=== PATIENT | male | born 1970 | race Caucasian/White ===

== ENCOUNTER 2020-03-26 19:40 | Emergency (ER) | payer OTHER, SELFPAY ==
[2020-03-26 19:49] VITALS: BP 134/93; PULSE 105; RESP 18; TEMP 36.6; O2SAT 98; BMI 36.7
--- NOTE | 2020-03-26 20:01 | XR_ITS ---
EXAMINATION: XR CHEST CLINICAL INFORMATION: Altered mental status COMPARISON: None TECHNIQUE: Frontal portable view of the chest was obtained. 8:12 PM FINDINGS: No significant abnormality is noted involving the heart, lungs, mediastinum, bony thorax or soft tissues. IMPRESSION: Unremarkable examination.
--- NOTE | 2020-03-26 20:02 | ECG_ITS ---
Test Reason : ALTERED MENTAL Blood Pressure : / mmHG Vent. Rate : 108 BPM Atrial Rate : 108 BPM P-R Int : 140 ms QRS Dur : 088 ms QT Int : 354 ms P-R-T Axes : 032 -20 037 degrees QTc Int : 474 ms Sinus tachycardia Otherwise normal ECG When compared with ECG of 18-MAR-2020 14:55, Heart rate has increased Referred By: Meli Scott Electronically Signed By:CELENA CAMERON
[2020-03-26 20:25] LABS: MANUAL DIFF FLAG NO
[2020-03-26 20:27] LABS: Basophils Percent Auto 0.3 % (0-2); Eosinophils Absolute Auto 0.1 X10*3/uL (0.0-0.4); Eosinophils Percent Auto 0.5 % (0-4); Hematocrit 46.3 % (42-52); Hemoglobin 15.5 g/dl (14.0-18.0); Imm Gran Abs Auto 0.08 X10*3/uL (0.00-0.03); Imm Gran Pct Auto 0.6 % (0.0-0.4); Lymphocytes Absolute Auto 1.8 X10*3/uL (1.2-4.9); Lymphocytes Percent Auto 14.5 % (20-40); Mean Corpuscular HGB Conc 33.5 g/dl (31.0-36.0); Mean Corpuscular Hemoglobin 30.9 pg (27.0-33.0); Mean Corpuscular Volume 92.2 fL (80-98); Mean Platelet Volume 10.4 fL (9.4-12.4); Monocytes Absolute Auto 1.1 X10*3/uL (0.1-1.2); Monocytes Percent Auto 8.8 % (2-11); Neutrophils Absolute Auto 9.3 X10*3/uL (2.0-8.3); Neutrophils Percent Auto 75.3 % (45-73); Platelet Count 224 X10*3/uL (160-400); Red Blood Count 5.02 X10*6/uL (4.60-5.80); Red Cell Distribution Width 13.4 % (11.0-16.0); White Blood Count 12.4 X10*3/uL (4.8-10.8)
--- NOTE | 2020-03-26 20:30 | ED_ITS ---
HPI - General Adult General Chief complaint: Altered Mental Status <Meli Scott NP - Last Filed: 03/27/20:20> Stated complaint: hypoglicimia <Meli Scott NP - Last Filed: 03/27/20:20> Time Seen by Provider: 03/26/20 19:58 <Meli Scott NP - Last Filed: 03/27/20:20> Source: patient and EMS <Meli Scott NP - Last Filed: 03/27/20:20> Mode of arrival: EMS <Meli Scott NP - Last Filed: 03/27/20:20> Limitations: no limitations <Meli Scott NP - Last Filed: 03/27/20:20> History of Present Illness HPI narrative: Patient presents with altered mental status, [facility] at [facility] unconscious, it was noted that his blood sugar was in the 40s. He was given an amp of D50, blood sugar increased to the 200s however dropped back down to the 70s. At this time he has tremors, able to answer questions appropriately, reports that he did not eat very much today and took his insulin as scheduled. He takes 130 units in the morning and 80 units in the evening, which he took both doses with very little food. He does not describe any illness, has not had any chest pain or pressure, palpitations, shortness of breath, abdominal pain, abdominal distention, dysuria, hematuria, nausea, vomiting, diarrhea. Does not have any open wounds that he knows of. <Meli Scott NP - Last Filed: 03/27/20:20> Onset (ago): hour(s) ( Just prior to arrival) <Meli Scott NP - Last Filed: 03/27/20:20> Severity: moderate and severe <Meli Scott NP - Last Filed: 03/27/20:20> Associated symptoms: diaphoresis <Meli Scott NP - Last Filed: 03/27/20:20> Treatments prior to arrival: other ( D50 amp) <Meli Scott NP - Last Filed: 03/27/20:20> Related Data Allergies/adverse reactions: Allergies Allergy/AdvReac Type Severity Reaction Status Date / Time atorvastatin [ATORVASTATIN] Allergy Unknown skin Unverified 03/10/20 18:41 eruption <Meli Scott HYDRAULIC MECHANIC - Last Filed: 03/27/20 01:20> Review of Systems Review of Systems: Yes all other systems are reviewed and are negative <Meli Scott HYDRAULIC MECHANIC - Last Filed: 03/27/20 01:20> Constitutional: Constitutional: Reports poor appetite <Meli Scott HYDRAULIC MECHANIC - Last Filed: 03/27/20 01:20> Eyes: Eyes: Reports no additional eye complaints <Meli Scott HYDRAULIC MECHANIC - Last Filed: 03/27/20 01:20> ENT: Reports system reviewed and no additional complaints, except as documented <Meli Scott HYDRAULIC MECHANIC - Last Filed: 03/27/20 01:20> Cardiovascular: Cardiovascular: Reports no additional cardiovascular complaints <Meli Scott HYDRAULIC MECHANIC - Last Filed: 03/27/20 01:20> Respiratory: Respiratory: Reports no additional respiratory complaints <Meli Scott HYDRAULIC MECHANIC - Last Filed: 03/27/20 01:20> Gastrointestinal: Gastrointestinal: Reports no additional gastrointestinal complaints <Candshane Scott HYDRAULIC MECHANIC - Last Filed: 03/27/20 01:20> Genitourinary: Genitourinary: Reports no additional male genitourinary complaints <Meli Scott HYDRAULIC MECHANIC - Last Filed: 03/27/20 01:20> Musculoskeletal: Musculoskeletal: Reports no additional musculoskeletal c omplaints <Meli Scott HYDRAULIC MECHANIC - Last Filed: 03/27/20 01:20> Integumentary/Breasts: Skin/Breast: Reports system reviewed and no additional complaints, except as docu <Meli Scott HYDRAULIC MECHANIC - Last Filed: 03/27/20 01:20> Neurologic: Reports system reviewed and no additional complaints, except as documented and Reports Abnormal speech present <Meli Scott HYDRAULIC MECHANIC - Last Filed: 03/27/20 01:20> Psychiatric: Psychiatric: Reports no additional psychiatric complaints <Meli cSott HYDRAULIC MECHANIC - Last Filed: 03/27/20 01:20> Endocrine: Endocrine: Reports no additional endocrine complaints <Meli Scott HYDRAULIC MECHANIC - Last Filed: 03/27/20 01:20> Hematologic/Lymphatic: Hematologic/Lymphatic: Reports no additional hematologic/lymphatic complaints <Meli Scott NP - Last Filed: 03/27/20 01:20> PMFSH Past Medical History Attestation statement: The following information was validated with the patient. <Meli Scott NP - Last Filed: 03/27/20 01:20> Source: old records reviewed <Meli Scott NP - Last Filed: 03/27/20 01:20> Medical History: Medical History (Updated 03/26/20 @ 21:43 by Meli Scott NP) Cataracts, both eyes Diabetes Edema HTN (hypertension) Hyperlipidemia Hypothyroid <Meli Scott NP - Last Filed: 03/27/20 01:20> Social History Social History: Social History Alcohol intake: never Smoking Status: Never smoker Use of substances other than those prescribed or required for medical reasons: No Advance Directives: No Advance Directives Information Provided: Yes <Meli Scott NP - Last Filed: 03/27/20 01:20> Physical Exam Vital Signs and I&O and Narrative: Vital Signs and I&O: Vital Signs Temp 98.3 F 03/26/20 22:18 Pulse 101 H 03/26/20 22:18 Resp 20 03/26/20 22:18 BP 136/68 03/26/20 22:18 Pulse Ox 99 03/26/20 22:18 Intake & Output 03/26/20 03/26/20 03/27/20 06:59 18:59 06:59 Weight 112.945 kg Body Mass Index 36.7 <Meli Scott NP - Last Filed: 03/27/20 01:20> Vital Signs and I&O: Vital Signs Temp 98.3 F 03/26/20 22:18 Pulse 101 H 03/26/20 22:18 Resp 20 03/26/20 22:18 BP 136/68 03/26/20 22:18 Pulse Ox 99 03/26/20 22:18 Intake & Output 03/26/20 03/26/20 03/27/20 06:59 18:59 06:59 Weight 112.945 kg Body Mass Index 36.7 <Humza Scanlon DO - Last Filed: 03/27/20 01:23> Const: General: cooperative, alert, awake and tired appearing <Meli Scott NP - Last Filed: 03/27/20 01:20> Nutritional Appearance: obese morbidly obese <Meli Scott NP - Last Wilner ed: 03/27/20 01:20> Orientation/consciousness: patient oriented x3 <Meli Scott HYDRAULIC MECHANIC - Last Filed: 03/27/20 01:20> Limitations: no limitations <Meli Scott HYDRAULIC MECHANIC - Last Filed: 03/27/20 01:20> HENMT: Head: Yes normal to inspection <Meli Scott HYDRAULIC MECHANIC - Last Filed: 03/27/20 01:20> Ears: hearing grossly normal bilaterally <Meli Scott NP - Last Filed: 03/27/20 01:20> Face and sinus: Yes normal facial exam <Meli Scott HYDRAULIC MECHANIC - Last Filed: 03/27/20 01:20> Mouth: Normal oral and palatal mucosa present <Meli Scott HYDRAULIC MECHANIC - Last Filed: 03/27/20 01:20> Throat: Yes posterior oropharynx normal, Yes tonsils normal and Yes uvula midline <Meli Scott HYDRAULIC MECHANIC - Last Filed: 03/27/20 01:20> Eyes: General: appearance normal, both eyes and all related structures <Meli Scott HYDRAULIC MECHANIC - Last Filed: 03/27/20 01:20> Alignment and Position: alignment normal <Meli Scott HYDRAULIC MECHANIC - Last Filed: 03/27/20 01:20> Conjunctivae: conjunctivae normal <Meli Scott HYDRAULIC MECHANIC - Last Filed: 03/27/20 01:20> Sclerae: sclerae normal <Meli Scott HYDRAULIC MECHANIC - Last Filed: 03/27/20 01:20> Pupils: Equal, round and reactive pupils present <Meli Scott NP - Last Filed: 03/27/20 01:20> EOM: EOMs intact bilaterally <Meli Scott HYDRAULIC MECHANIC - Last Filed: 03/27/20 01: 20> Neck: Neck: Yes normal visual inspection, Yes full ROM, Yes no lymphadenopathy, Yes no meningeal signs and Yes supple <Meli Scott NP - Last Filed: 03/27/20:20> Chest: Chest palpation & inspection: normal inspection of the chest <Meli Scott NP - Last Filed: 03/27/20:20> Resp: Effort & Inspection: normal respiratory effort and able to speak in complete sentences <Meli Scott NP - Last Filed: 03/27/20:20> Auscultation: clear to auscultation bilaterally <Meli Scott NP - Last Filed: 03/27/20:20> Cardio: Rate: tachycardic <Meli Scott NP - Last Filed: 03/27/20: 20> Rhythm: regular rhythm <Meli Scott NP - Last Filed: 03/27/20:20> GI: Inspection: Yes normal to inspection and Yes obesity <Meli Scott NP - Last Filed: 03/27/20:20> : General: Yes no CVA tenderness <Meli Scott NP - Last Filed: 03/27/20:20> Back/Spine/Pelvis: Back: no CVA tenderness <Meli Scott NP - Last Filed: 03/27/20:20> Skin: Other: Skin to feet and lower extremities dry and flaking. No wounds noted to feet, between the toes, and on the coccyx. All other extremities normal. <Meli Scott NP - Last Filed: 03/27/20:20> General skin exam: no rashes or lesions noted <Meli Scott NP - Last Filed: 03/27/20:20> Neuro: General: patient oriented x3, moves all extremities and no meningeal signs <Meli Scott NP - Last Filed: 03/27/20 01:20> Cranial nerves: Yes CN's II-XII intact bilaterally, Yes Facial sensation intact/muscles of mastication intact, Yes Equal, round and reactive pupils present, Yes Normal accommodation reflex present, Yes Bilaterally intact EOM present, Yes Nystagmus not present, Yes Normal facial strength present, Yes Ability to bilaterally rotate head present and Yes Ability to bilaterally elevate shoulders present <Meli Scott NP - Last Filed: 03/27/2020> Cognition (Neuro): normal cognition <Meli ScottODALYS - Last Filed: 03/27/20:20> Speech: Abnormal speech present <Meli ScottODALYS - Last Filed: 03/27/20:20> Motor exam (neuro): 5/5 motor strength present throughout <Meli ScottODALYS - Last Filed: 03/27/20:20> Extrem: General: Yes full ROM <Meli ScottODALYS - Last Filed: 03/27/20:20> Psych: Appearance: grossly normal <Meli ScottODALYS - Last Filed: 03/27:20> Mental Status: mental status grossly normal <Meli ScottODALYS - Last Filed: 03/27/2020> Speech and movement: Normal speech and movement present <Meli ScottODALYS - Last Filed: 03/27/20:20> Course Course Hospital Course: 49-year-old male currently homeless with medical history of insulin- dependent diabetes, hypertension, morbid obesity, sleep apnea with CPAP, presents with hypoglycemia. He did take insulin as prescribed today but did not eat very much. He takes 130 units in the morning, 80 units at night. This hypoglycemic episode could be insulin related. We will order CBC, Chem 7, EKG, chest x-ray, urinalysis to rule out acute findings , ACS, and infection. We will monitor POC glucose every 15 minutes for the 1st hour. Patient is neurovascularly intact, cranial nerves 2-12 intact, answering questions politely and appropriately. No wounds or lesions noted to body, no injury to head, neck, extremities. Patient does recall the entire episode of his event, he did not fall, hit his head or injure any parts of his body while experiencing the extreme tiredness of hypoglycemia. <Meli BocanegraODALYS beaulieu - Last Filed: 03/27/20:20> Reevaluation(s) Reevaluation #1: chest x-ray is negative, lab values are otherwise unremarkable. EKG is sinus tach at 108 beats per minute again and otherwise normal. Patient is alert oriented x4, answering questions politely and appropriately, neurovascularly intact, cranial nerves 2-12 intact. Patient was given multiple sandwiches and beverages. Maintaining oral airway without difficulty. EKG shows sinus tachycardia, troponins are negative. Highly unlikely that this is ACS. Chest x-ray is negative for acute findings, unlikely to be pneumonia. Patient has no focal neural deficits, cranial nerves 2-12 intact highly unlikely to be CVA. This episode of altered mental status And hypoglycemia most likely due to prescribed insulin use with poor p.o. intake. ETOH negative. Plan of care to discharge back to facility, Patient verbalized understanding of and agrees to plan of care discharge home. healthcare interpreter utilized for all correspondence, Google translate utilized for discharge instructions <Meli Scott NP - Last Filed: 03/27/20 01:20> Medical Decision Making MDM Narrative Medical decision making narrative: altered mental status <Meli Scott NP - Last Filed: 03/27/20 01:20> Differential Diagnosis Differential Diagnosis: hypoglycemia, infection, <Meli Scott NP - Last Filed: 03/27/20 01:20> Medical Records Medical records reviewed: Yes I reviewed the patient's medical records. <Meli Scott NP - Last Filed: 03/27/20 01:20> Lab Data Lab results reviewed: Yes I reviewed the patient's lab results. <Meli Scott NP - Last Filed: 03/27/20 01:20> Result diagrams: : 03/26/20 20:08 03/26/20 20:08 <Meli Scott NP - Last Filed: 03/27/20 01:20> Labs: Lab Results 03/26/20 03/26/20 03/26/20 Range/Units 20:08 20:08 20:15 WBC 12.4 H (4.8-10.8) X10*3/uL RBC 5.02 (4.60-5.80) X10*6/uL Hgb 15.5 (14.0-18.0) g/dl Hct 46.3 (42-52) % MCV 92.2 (80-98) fL MCH 30.9 (27.0-33.0) pg MCHC 33.5 (31.0-36.0) g/dl RDW 13.4 (11.0-16.0) % Plt Count 224 (160-400) X10*3/uL MPV 10.4 (9.4-12.4) fL Immature Gran % (Auto) 0.6 H (0.0-0.4) % Neut % (Auto) 75.3 H (45-73) % Lymph % (Auto) 14.5 L (20-40) % Yates % (Auto) 8.8 (2-11) % Eos % (Auto) 0.5 (0-4) % Baso % (Auto) 0.3 (0-2) % Neut # (Auto) 9.3 H (2.0-8.3) X10*3/uL Lymph # (Auto) 1.8 (1.2-4.9) X10*3/uL Yates # (Auto) 1.1 (0.1-1.2) X10*3/uL Eos # (Auto) 0.1 (0.0-0.4) X10*3/uL Baso # (Auto) 0.0 (0.0-0.2) X10*3/uL Abs Immat Gran (auto) 0.08 H (0.00-0.03) X10*3/uL Absolute Nucleated RBC 0.000 (0.0-0.012) X10*3/uL Nucleated RBC % (auto) 0.0 (0.0-0.2) /100WBC PT 10.5 L (10.8-13.0) SEC INR 0.9 (0.9-1.1) Sodium 139 (135-145) mmol/L Potassium 4.6 (3.3-5.1) mmol/l Chloride 101 (96-108) mmol/L Carbon Dioxide 26 (22-29) mmol/L Anion Gap 17 (12-20) BUN 10 (9-16) mg/dL Creatinine 0.81 (0.5-1.4) mg/dL Estim Creat Clear Calc 135.1 Estimated GFR > 60 POC Glucose (60-115) mg/dL Random Glucose 93 (60-115) mg/dL Calcium 9.2 (8.4-10.2) mg/dL Magnesium 1.6 (1.6-2.6) mg/dL Total Bilirubin 0.7 (0.0-1.0) mg/dL Direct Bilirubin 0.3 (0.0-0.5) mg/dL AST 30 (5-37) U/L ALT 39 (0-40) U/L Alkaline Phosphatase 90 (39-117) U/L Total Creatine Kinase (38-174) U/L Troponin I High Sens (<3.5-35.0) ng/L Total Protein 6.9 (6.5-8.0) g/dL Albumin 4.0 (3.5-5.0) g/dL Lipase 60 (8-78) U/L Ethyl Alcohol mg/dL 03/26/20 03/26/20 03/26/20 Range/Units 20:15 20:15 20:15 WBC (4.8-10.8) X10*3/uL RBC (4.60-5.80) X10*6/uL Hgb (14.0-18.0) g/dl Hct (42-52) % MCV (80-98) fL MCH (27.0-33.0) pg MCHC (31.0-36.0) g/dl RDW (11.0-16.0) % Plt Count (160-400) X10*3/uL MPV (9.4-12.4) fL Immature Gran % (Auto) (0.0-0.4) % Neut % (Auto) (45-73) % Lymph % (Auto) (20-40) % Yates % (Auto) (2-11) % Eos % (Auto) (0-4) % Baso % (Auto) (0-2) % Neut # (Auto) (2.0-8.3) X10*3/uL Lymph # (Auto) (1.2-4.9) X10*3/uL Yates # (Auto) (0.1-1.2) X10*3/uL Eos # (Auto) (0.0-0.4) X10*3/uL Baso # (Auto) (0.0-0.2) X10*3/uL Abs Immat Gran (auto) (0.00-0.03) X10*3/uL Absolute Nucleated RBC (0.0-0.012) X10*3/uL Nucleated RBC % (auto) (0.0-0.2) /100WBC PT (10.8-13.0) SEC INR (0.9-1.1) Sodium (135-145) mmol/L Potassium (3.3-5.1) mmol/l Chloride (96-108) mmol/L Carbon Dioxide (22-29) mmol/L Anion Gap (12-20) BUN (9-16) mg/dL Creatinine (0.5-1.4) mg/dL Estim Creat Clear Calc Estimated GFR POC Glucose (60-115) mg/dL Random Glucose (60-115) mg/dL Calcium (8.4-10.2) mg/dL Magnesium (1.6-2.6) mg/dL Total Bilirubin (0.0-1.0) mg/dL Direct Bilirubin (0.0-0.5) mg/dL AST (5-37) U/L ALT (0-40) U/L Alkaline Phosphatase (39-117) U/L Total Creatine Kinase 131 (38-174) U/L Troponin I High Sens 4.4 (<3.5-35.0) ng/L Total Protein (6.5-8.0) g/dL Albumin (3.5-5.0) g/dL Lipase (8-78) U/L Ethyl Alcohol < 10 mg/dL 03/26/20 03/26/20 Range/Units 20:50 21:29 WBC (4.8-10.8) X10*3/uL RBC (4.60-5.80) X10*6/uL Hgb (14.0-18.0) g/dl Hct (42-52) % MCV (80-98) fL MCH (27.0-33.0) pg MCHC (31.0-36.0) g/dl RDW (11.0-16.0) % Plt Count (160-400) X10*3/uL MPV (9.4-12.4) fL Immature Gran % (Auto) (0.0-0.4) % Neut % (Auto) (45-73) % Lymph % (Auto) (20-40) % Yates % (Auto) (2-11) % Eos % (Auto) (0-4) % Baso % (Auto) (0-2) % Neut # (Auto) (2.0-8.3) X10*3/uL Lymph # (Auto) (1.2-4.9) X10*3/uL Yates # (Auto) (0.1-1.2) X10*3/uL Eos # (Auto) (0.0-0.4) X10*3/uL Baso # (Auto) (0.0-0.2) X10*3/uL Abs Immat Gran (auto) (0.00-0.03) X10*3/uL Absolute Nucleated RBC (0.0-0.012) X10*3/uL Nucleated RBC % (auto) (0.0-0.2) /100WBC PT (10.8-13.0) SEC INR (0.9-1.1) Sodium (135-145) mmol/L Potassium (3.3-5.1) mmol/l Chloride (96-108) mmol/L Carbon Dioxide (22-29) mmol/L Anion Gap (12-20) BUN (9-16) mg/dL Creatinine (0.5-1.4) mg/dL Estim Creat Clear Calc Estimated GFR POC Glucose 107 115 (60-115) mg/dL Random Glucose (60-115) mg/dL Calcium (8.4-10.2) mg/dL Magnesium (1.6-2.6) mg/dL Total Bilirubin (0.0-1.0) mg/dL Direct Bilirubin (0.0-0.5) mg/dL AST (5-37) U/L ALT (0-40) U/L Alkaline Phosphatase (39-117) U/L Total Creatine Kinase (38-174) U/L Troponin I High Sens (<3.5-35.0) ng/L Total Protein (6.5-8.0) g/dL Albumin (3.5-5.0) g/dL Lipase (8-78) U/L Ethyl Alcohol mg/dL <Meli Scott NP - Last Filed: 03/27/20 01:20> Lab Results 03/26/20 03/26/20 03/26/20 Range/Units 20:08 20:08 20:15 WBC 12.4 H (4.8-10.8) X10*3/uL RBC 5.02 (4.60-5.80) X10*6/uL Hgb 15.5 (14.0-18.0) g/dl Hct 46.3 (42-52) % MCV 92.2 (80-98) fL MCH 30.9 (27.0-33.0) pg MCHC 33.5 (31.0-36.0) g/dl RDW 13.4 (11.0-16.0) % Plt Count 224 (160-400) X10*3/uL MPV 10.4 (9.4-12.4) fL Immature Gran % (Auto) 0.6 H (0.0-0.4) % Neut % (Auto) 75.3 H (45-73) % Lymph % (Auto) 14.5 L (20-40) % Yates % (Auto) 8.8 (2-11) % Eos % (Auto) 0.5 (0-4) % Baso % (Auto) 0.3 (0-2) % Neut # (Auto) 9.3 H (2.0-8.3) X10*3/uL Lymph # (Auto) 1.8 (1.2-4.9) X10*3/uL Yates # (Auto) 1.1 (0.1-1.2) X10*3/uL Eos # (Auto) 0.1 (0.0-0.4) X10*3/uL Baso # (Auto) 0.0 (0.0-0.2) X10*3/uL Abs Immat Gran (auto) 0.08 H (0.00-0.03) X10*3/uL Absolute Nucleated RBC 0.000 (0.0-0.012) X10*3/uL Nucleated RBC % (auto) 0.0 (0.0-0.2) /100WBC PT 10.5 L (10.8-13.0) SEC INR 0.9 (0.9-1.1) Sodium 139 (135-145) mmol/L Potassium 4.6 (3.3-5.1) mmol/l Chloride 101 (96-108) mmol/L Carbon Dioxide 26 (22-29) mmol/L Anion Gap 17 (12-20) BUN 10 (9-16) mg/dL Creatinine 0.81 (0.5-1.4) mg/dL Estim Creat Clear Calc 135.1 Estimated GFR > 60 POC Glucose (60-115) mg/dL Random Glucose 93 (60-115) mg/dL Calcium 9.2 (8.4-10.2) mg/dL Magnesium 1.6 (1.6-2.6) mg/dL Total Bilirubin 0.7 (0.0-1.0) mg/dL Direct Bilirubin 0.3 (0.0-0.5) mg/dL AST 30 (5-37) U/L ALT 39 (0-40) U/L Alkaline Phosphatase 90 (39-117) U/L Total Creatine Kinase (38-174) U/L Troponin I High Sens (<3.5-35.0) ng/L Total Protein 6.9 (6.5-8.0) g/dL Albumin 4.0 (3.5-5.0) g/dL Lipase 60 (8-78) U/L Ethyl Alcohol mg/dL 03/26/20 03/26/20 03/26/20 Range/Units 20:15 20:15 20:15 WBC (4.8-10.8) X10*3/uL RBC (4.60-5.80) X10*6/uL Hgb (14.0-18.0) g/dl Hct (42-52) % MCV (80-98) fL MCH (27.0-33.0) pg MCHC (31.0-36.0) g/dl RDW (11.0-16.0) % Plt Count (160-400) X10*3/uL MPV (9.4-12.4) fL Immature Gran % (Auto) (0.0-0.4) % Neut % (Auto) (45-73) % Lymph % (Auto) (20-40) % Yates % (Auto) (2-11) % Eos % (Auto) (0-4) % Baso % (Auto) (0-2) % Neut # (Auto) (2.0-8.3) X10*3/uL Lymph # (Auto) (1.2-4.9) X10*3/uL Yates # (Auto) (0.1-1.2) X10*3/uL Eos # (Auto) (0.0-0.4) X10*3/uL Baso # (Auto) (0.0-0.2) X10*3/uL Abs Immat Gran (auto) (0.00-0.03) X10*3/uL Absolute Nucleated RBC (0.0-0.012) X10*3/uL Nucleated RBC % (auto) (0.0-0.2) /100WBC PT (10.8-13.0) SEC INR (0.9-1.1) Sodium (135-145) mmol/L Potassium (3.3-5.1) mmol/l Chloride (96-108) mmol/L Carbon Dioxide (22-29) mmol/L Anion Gap (12-20) BUN (9-16) mg/dL Creatinine (0.5-1.4) mg/dL Estim Creat Clear Calc Estimated GFR POC Glucose (60-115) mg/dL Random Glucose (60-115) mg/dL Calcium (8.4-10.2) mg/dL Magnesium (1.6-2.6) mg/dL Total Bilirubin (0.0-1.0) mg/dL Direct Bilirubin (0.0-0.5) mg/dL AST (5-37) U/L ALT (0-40) U/L Alkaline Phosphatase (39-117) U/L Total Creatine Kinase 131 (38-174) U/L Troponin I High Sens 4.4 (<3.5-35.0) ng/L Total Protein (6.5-8.0) g/dL Albumin (3.5-5.0) g/dL Lipase (8-78) U/L Ethyl Alcohol < 10 mg/dL 03/26/20 03/26/20 Range/Units 20:50 21:29 WBC (4.8-10.8) X10*3/uL RBC (4.60-5.80) X10*6/uL Hgb (14.0-18.0) g/dl Hct (42-52) % MCV (80-98) fL MCH (27.0-33.0) pg MCHC (31.0-36.0) g/dl RDW (11.0-16.0) % Plt Count (160-400) X10*3/uL MPV (9.4-12.4) fL Immature Gran % (Auto) (0.0-0.4) % Neut % (Auto) (45-73) % Lymph % (Auto) (20-40) % Yates % (Auto) (2-11) % Eos % (Auto) (0-4) % Baso % (Auto) (0-2) % Neut # (Auto) (2.0-8.3) X10*3/uL Lymph # (Auto) (1.2-4.9) X10*3/uL Yates # (Auto) (0.1-1.2) X10*3/uL Eos # (Auto) (0.0-0.4) X10*3/uL Baso # (Auto) (0.0-0.2) X10*3/uL Abs Immat Gran (auto) (0.00-0.03) X10*3/uL Absolute Nucleated RBC (0.0-0.012) X10*3/uL Nucleated RBC % (auto) (0.0-0.2) /100WBC PT (10.8-13.0) SEC INR (0.9-1.1) Sodium (135-145) mmol/L Potassium (3.3-5.1) mmol/l Chloride (96-108) mmol/L Carbon Dioxide (22-29) mmol/L Anion Gap (12-20) BUN (9-16) mg/dL Creatinine (0.5-1.4) mg/dL Estim Creat Clear Calc Estimated GFR POC Glucose 107 115 (60-115) mg/dL Random Glucose (60-115) mg/dL Calcium (8.4-10.2) mg/dL Magnesium (1.6-2.6) mg/dL Total Bilirubin (0.0-1.0) mg/dL Direct Bilirubin (0.0-0.5) mg/dL AST (5-37) U/L ALT (0-40) U/L Alkaline Phosphatase (39-117) U/L Total Creatine Kinase (38-174) U/L Troponin I High Sens (<3.5-35.0) ng/L Total Protein (6.5-8.0) g/dL Albumin (3.5-5.0) g/dL Lipase (8-78) U/L Ethyl Alcohol mg/dL <Humza Scanlon DO - Last Filed: 03/27/20 01:23> Imaging Data Chest x-ray: Attestation: I personally reviewed and interpreted this imaging study as follows: <Meli Scott NP - Last Filed: 03/27/20:20> Radiologist's impression: No significant abnormality is noted involving the heart, lungs, mediastinum, bony thorax or soft tissues. IMPRESSION: Unremarkable examination. <Meli Scott NP - Last Filed: 03/27/20:20> ECG Data Attestation: I personally reviewed and interpreted this ECG as follows: <Meli Scott NP - Last Filed: 03/27/20:20> Prior ECG tracings: available for review <Meli Scott NP - Last Filed: 03/27/20:20> Interpretation: sinus tachycardia, ventricular rate at 108 beats per minute, p.r. interval 140, QT 354, QTC 474. no indication of ST elevation or depression no indication of ischemia. No significant changes when compared to EKG of March 18, 2020 <Meli Scott NP - Last Filed: 03/27/20 01:20> Scores Heart Score History: -1- moderately suspicious <Meli Scott NP - Last Filed: 03/27/20:20> ECG: -0- normal <Meli Scott NP - Last Filed: 03/27/20:20> Age: -1- >45 - <65 <Meli Scott NP - Last Filed: 03/27/20:20> Risk factory: -1- 1 or 2 risk factors <Meli Scott NP - Last Filed: 03/27/20:20> Troponin: -0- < or = normal limit <Meli Scott NP - Last Filed: 03/27/20:20> Score: 3 <Meli Scott NP - Last Filed: 03/27/20:20> Risk: 1.7% <Meli Scott NP - Last Filed: 03/27/20:20> Discharge Plan Discharge Clinical Impression: Hypoglycemia <Meli Scott NP - Last Filed: 03/27/20 01:20> Patient Disposition: Home, Self-Care <Meli Scott NP - Last Filed: 03/27/20 01:20> Instructions: Hypoglycemia in a Person with Diabetes (ED) <Meli Scott NP - Last Filed: 03/27/20 01:20> Additional Instructions: se le evalu? hipoglucemia relacionada con el uso de insulina. Aseg?rese de comer correctamente mientras alexis insulina. seguimiento con el m?dico de atenci?n primaria seg?n sea necesario. Regrese al departamento de emergencias para cualquier s?ntoma nuevo, preocupante o que empeore you were evaluated for hypoglycemia related to insulin use. Please make sure that you eat properly while taking insulin. follow-up with primary care physician as needed. Return to the emergency department for any new, concerning, or worsening symptoms. <Meli Scott NP - Last Filed: 03/27/20 01:20>
[2020-03-26 20:38] LABS: INTERNATIONAL NORM RATIO 0.9 (0.9-1.1); Prothrombin Time 10.5 SEC (10.8-13.0)
[2020-03-26 20:58] LABS: Ethanol < 10 mg/dL
[2020-03-26 21:00] LABS: Troponin-I High Sensitivity 4.4 ng/L (<3.5-35.0)
[2020-03-26 21:00] LABS: Alanine Aminotransferase 39 U/L (0-40); Alkaline Phosphatase 90 U/L (39-117); Anion Gap 17 (12-20); Aspartate Amino Transferase 30 U/L (5-37); Bilirubin Direct 0.3 mg/dL (0.0-0.5); Bilirubin Total 0.7 mg/dL (0.0-1.0); Blood Urea Nitrogen 10 mg/dL (9-16); Calcium 9.2 mg/dL (8.4-10.2); Carbon Dioxide 26 mmol/L (22-29); Chloride 101 mmol/L (96-108); Creatinine Clr Calc Pharmacy 135.1; Estimated Glomerular Filt Rate > 60; Glucose Random 93 mg/dL (60-115); Lipase 60 U/L (8-78); Magnesium 1.6 mg/dL (1.6-2.6); Potassium 4.6 mmol/l (3.3-5.1); Sodium 139 mmol/L (135-145); Total Protein 6.9 g/dL (6.5-8.0)
[2020-03-26 21:06] LABS: Glucose, Whole Blood 107 mg/dL (60-115)
[2020-03-26 21:31] VITALS: BP 129/72; PULSE 104; RESP 20; TEMP 37; O2SAT 99
[2020-03-26 21:32] LABS: Glucose, Whole Blood 115 mg/dL (60-115)
[2020-03-26 22:18] VITALS: BP 136/68; PULSE 101; RESP 20; TEMP 36.8; O2SAT 99
[2020-03-28 08:45] LABS: Glucose, Whole Blood 98 mg/dL (60-115)
== END 2020-03-27 02:06 | disposition home or self-care (01) ==
PROVIDERS: Nurse Practitioner Family; Emergency Provider Emergency Medicine; PCP Internal Medicine
DX: E11.649 Type 2 diabetes mellitus with hypoglycemia without coma (principal); I10 Essential (primary) hypertension; E78.5 Hyperlipidemia, unspecified
CPT/HCPCS: 36415; 71045; 80048; 80076; 80320; 82550; 82947; 83690; 83735; 84484; 85025; 85610; 93005; 93010; 99283; 99284

== ENCOUNTER 2020-04-13 05:45 | Emergency (ER) | payer OTHER, SELFPAY ==
[2020-04-13 05:49] VITALS: BP 121/69; PULSE 86; RESP 16; TEMP 36.7; O2SAT 100; BMI 35.2
[2020-04-13 05:56] LABS: Glucose, Whole Blood 97 mg/dL (60-115)
--- NOTE | 2020-04-13 06:05 | ECG_ITS ---
Test Reason : BASELINE Blood Pressure : / mmHG Vent. Rate : 087 BPM Atrial Rate : 087 BPM P-R Int : 162 ms QRS Dur : 092 ms QT Int : 392 ms P-R-T Axes : 046 -16 028 degrees QTc Int : 471 ms Normal sinus rhythm RSR' or QR pattern in V1 suggests right ventricular conduction delay Left axis deviation Abnormal ECG When compared with ECG of 26-MAR-2020 21:33, Heart rate has decreased Referred By: Eula Chen Electronically Signed By:COLLIN FIELD MD
[2020-04-13 07:36] VITALS: BP 152/78; PULSE 84; RESP 14; TEMP 36.6; O2SAT 100
--- NOTE | 2020-04-13 07:44 | PC.NURSE ---
PT GIVEN 80Z OF OJ AND 2 MAURO CRACKERS.
[2020-04-13 07:46] LABS: MANUAL DIFF FLAG NO
[2020-04-13 07:48] LABS: Basophils Percent Auto 0.3 % (0-2); Eosinophils Percent Auto 0.1 % (0-4); Hematocrit 45.4 % (42-52); Hemoglobin 15.8 g/dl (14.0-18.0); Imm Gran Abs Auto 0.03 X10*3/uL (0.00-0.03); Imm Gran Pct Auto 0.4 % (0.0-0.4); Lymphocytes Absolute Auto 1.5 X10*3/uL (1.2-4.9); Lymphocytes Percent Auto 20.1 % (20-40); Mean Corpuscular HGB Conc 34.8 g/dl (31.0-36.0); Mean Corpuscular Hemoglobin 30.6 pg (27.0-33.0); Mean Corpuscular Volume 87.8 fL (80-98); Mean Platelet Volume 10.4 fL (9.4-12.4); Monocytes Absolute Auto 0.4 X10*3/uL (0.1-1.2); Monocytes Percent Auto 5.9 % (2-11); Neutrophils Absolute Auto 5.5 X10*3/uL (2.0-8.3); Neutrophils Percent Auto 73.2 % (45-73); Platelet Count 218 X10*3/uL (160-400); Red Blood Count 5.17 X10*6/uL (4.60-5.80); Red Cell Distribution Width 13.1 % (11.0-16.0); White Blood Count 7.5 X10*3/uL (4.8-10.8)
--- NOTE | 2020-04-13 07:59 | ED.RECABL ---
HPI - Recheck/Abnormal Lab/Rx General Chief Complaint: Recheck/Abnormal Lab/Rx Stated Complaint: low sugar Time Seen by Provider: 04/13/20 06:05 Source: patient, EMS and interpreter deaf Mode of arrival: EMS History of Present Illness HPI narrative: this is a 49-year-old male brought in by EMS after she was noted to have fallen at the longterm and when EMS checked his glucose at was 38 the gait 2 rounds of oral glucose and recheck the value and found at 48. he is currently at 97 and on speak with the patient he states that he took his regularly scheduled insulin and states that has not been changed recently. He is a poor historian but otherwise denies any dizziness, chest pain, shortness of breath, fever, chills. Related Data Allergies Allergy/AdvReac Type Severity Reaction Status Date / Time atorvastatin [ATORVASTATIN] Allergy Unknown skin Unverified 03/10/20 18:41 eruption Review of Systems Review of Systems: Pertinent positives and negatives as stated in HPI 10 point review systems is otherwise negative. [facility] Past Medical History Source: nursing notes reviewed Medical History Cataracts, both eyes Diabetes Edema HTN (hypertension) Hyperlipidemia Hypothyroid Social History Social History Alcohol intake: never Smoking Status: Never smoker Smoked in Last 30 Days: No Use of substances other than those prescribed or required for medical reasons: No Advance Directives: No Advance Directives Information Provided: No Physical Exam Vital Signs: Vital Signs: Vital Signs Temp Pulse Resp BP Pulse Ox 04/13/20 07:36 97.8 F 84 14 152/78 H 100 04/13/20 05:49 98.0 F 86 16 121/69 100 Body Mass Index 35.2 VITAL SIGNS: Reviewed. GENERAL: Well developed, well nourished, in no acute distress. HEAD: Normocephalic/atraumatic, EYES: PERRLA, EOMI intact without pain, no nystagmus/pallor/icterus noted EARS: Ext canals without abnormality, TMs non-bulging and non-erythematous NOSE: Nares patent bilateral OROPHARYNX: no oral lesions noted, posterior pharynx clear and non-erythematous without noted tonsillar enlargement/erythema/exudates NECK: Supple, no adenopathy LUNGS: Normal breath sounds. No adventitious sounds or accessory muscle use. SpO2<100> CARDIOVASCULAR: Regular rate and rhythm without noted murmurs, no JVD or lower extremity edema. ABDOMEN: Soft, non-tender, non-distended with bowel sounds. No rigidity. No guarding. No palpable masses or hernias noted MUSCULOSKELETAL: No tenderness, deformities, or effusions noted on gross inspection. EXTREMITIES: No cyanosis, clubbing or edema. SKIN: Inspection of the skin reveals no rashes, ulcerations, jaundice, pallor, or petechiae. NEUROLOGIC: Alert and oriented x 4. Strength and sensation to light touch were grossly intact x 4. Course Course Course Narrative: This is a 49-year-old male with 2nd visit this month for hypoglycemic episodes. On review of all investigations there are no acute findings that would better explain patient's hypoglycemia. On repeated point of care glucose checks patient has maintained appropriate levels and will be discharged in stable condition. However, will contact patient's primary care provider in an attempt to set up an appointment for further discussion regarding insulin use. MDM - Recheck/Abnormal Lab/Rx Lab Data Result diagrams: 04/13/20 07:35 04/13/20 07:35 Labs: Lab Results 04/13/20 04/13/20 04/13/20 Range/Units 05:52 07:35 07:35 WBC 7.5 (4.8-10.8) X10*3/uL RBC 5.17 (4.60-5.80) X10*6/uL Hgb 15.8 (14.0-18.0) g/dl Hct 45.4 (42-52) % MCV 87.8 (80-98) fL MCH 30.6 (27.0-33.0) pg MCHC 34.8 (31.0-36.0) g/dl RDW 13.1 (11.0-16.0) % Plt Count 218 (160-400) X10*3/uL MPV 10.4 (9.4-12.4) fL Immature Gran % (Auto) 0.4 (0.0-0.4) % Neut % (Auto) 73.2 H (45-73) % Lymph % (Auto) 20.1 (20-40) % [place] % (Auto) 5.9 (2-11) % Eos % (Auto) 0.1 (0-4) % Baso % (Auto) 0.3 (0-2) % Lymph # (Auto) 1.5 (1.2-4.9) X10*3/uL [place] # (Auto) 0.4 (0.1-1.2) X10*3/uL Eos # (Auto) 0.0 (0.0-0.4) X10*3/uL Baso # (Auto) 0.0 (0.0-0.2) X10*3/uL Abs Immat Gran (auto) 0.03 (0.00-0.03) X10*3/uL Absolute Neuts (auto) 5.5 (2.0-8.3) X10*3/uL Absolute Nucleated RBC 0.000 (0.0-0.012) X10*3/uL Nucleated RBC % (auto) 0.0 (0.0-0.2) /100WBC Sodium 138 (135-145) mmol/L Potassium 4.0 (3.3-5.1) mmol/l Chloride 101 (96-108) mmol/L Carbon Dioxide 27 (22-29) mmol/L Anion Gap 14 (12-20) BUN 11 (9-16) mg/dL Creatinine 0.84 (0.5-1.4) mg/dL Estim Creat Clear Calc 139.5 Estimated GFR > 60 POC Glucose 97 (60-115) mg/dL Random Glucose 78 (60-115) mg/dL Calcium 9.1 (8.4-10.2) mg/dL Total Bilirubin 0.5 (0.0-1.0) mg/dL AST 26 (5-37) U/L ALT 18 (0-40) U/L Alkaline Phosphatase 81 (39-117) U/L Total Protein 6.9 (6.5-8.0) g/dL Albumin 4.0 (3.5-5.0) g/dL Ethyl Alcohol mg/dL 04/13/20 Range/Units 07:35 WBC (4.8-10.8) X10*3/uL RBC (4.60-5.80) X10*6/uL Hgb (14.0-18.0) g/dl Hct (42-52) % MCV (80-98) fL MCH (27.0-33.0) pg MCHC (31.0-36.0) g/dl RDW (11.0-16.0) % Plt Count (160-400) X10*3/uL MPV (9.4-12.4) fL Immature Gran % (Auto) (0.0-0.4) % Neut % (Auto) (45-73) % Lymph % (Auto) (20-40) % [place] % (Auto) (2-11) % Eos % (Auto) (0-4) % Baso % (Auto) (0-2) % Lymph # (Auto) (1.2-4.9) X10*3/uL [place] # (Auto) (0.1-1.2) X10*3/uL Eos # (Auto) (0.0-0.4) X10*3/uL Baso # (Auto) (0.0-0.2) X10*3/uL Abs Immat Gran (auto) (0.00-0.03) X10*3/uL Absolute Neuts (auto) (2.0-8.3) X10*3/uL Absolute Nucleated RBC (0.0-0.012) X10*3/uL Nucleated RBC % (auto) (0.0-0.2) /100WBC Sodium (135-145) mmol/L Potassium (3.3-5.1) mmol/l Chloride (96-108) mmol/L Carbon Dioxide (22-29) mmol/L Anion Gap (12-20) BUN (9-16) mg/dL Creatinine (0.5-1.4) mg/dL Estim Creat Clear Calc Estimated GFR POC Glucose (60-115) mg/dL Random Glucose (60-115) mg/dL Calcium (8.4-10.2) mg/dL Total Bilirubin (0.0-1.0) mg/dL AST (5-37) U/L ALT (0-40) U/L Alkaline Phosphatase (39-117) U/L Total Protein (6.5-8.0) g/dL Albumin (3.5-5.0) g/dL Ethyl Alcohol < 10 mg/dL Discharge Plan Discharge Clinical Impression: Hypoglycemia Patient Disposition: Home, Self-Care Instructions: Hypoglycemia in a Person with Diabetes (ED) Referrals: Adwoa Mcadams MD [Primary Care Provider] - 2 days ( recurrent hypoglycemia on current regimen)
[2020-04-13 08:06] LABS: Ethanol < 10 mg/dL
[2020-04-13 08:11] LABS: Alanine Aminotransferase 18 U/L (0-40); Alkaline Phosphatase 81 U/L (39-117); Anion Gap 14 (12-20); Aspartate Amino Transferase 26 U/L (5-37); Bilirubin Total 0.5 mg/dL (0.0-1.0); Blood Urea Nitrogen 11 mg/dL (9-16); Calcium 9.1 mg/dL (8.4-10.2); Carbon Dioxide 27 mmol/L (22-29); Chloride 101 mmol/L (96-108); Creatinine Clr Calc Pharmacy 139.5; Estimated Glomerular Filt Rate > 60; Glucose Random 78 mg/dL (60-115); Sodium 138 mmol/L (135-145); Total Protein 6.9 g/dL (6.5-8.0)
[2020-04-13 08:38] VITALS: BP 123/78; PULSE 78; RESP 18; O2SAT 100
[2020-04-13 08:56] LABS: Glucose, Whole Blood 121 mg/dL (60-115)
== END 2020-04-13 09:50 | disposition home or self-care (01) ==
PROVIDERS: Emergency Provider Student in an Organized Health Care Education/Training Program; PCP Internal Medicine
DX: E11.649 Type 2 diabetes mellitus with hypoglycemia without coma (principal); I11.0 Hypertensive heart disease with heart failure; I50.9 Heart failure, unspecified; E78.5 Hyperlipidemia, unspecified
CPT/HCPCS: 36415; 80053; 80320; 82947; 85025; 93005; 99283; 99284

== ENCOUNTER → 2020-04-22 09:13 | Outpatient (BNVA) | payer OTHER, SELFPAY | PROVIDERS: PCP Internal Medicine; Referring Provider Internal Medicine; Visit Provider Nurse Practitioner Gerontology | DX: E11.65 Type 2 diabetes mellitus with hyperglycemia (principal); E11.21 Type 2 diabetes mellitus with diabetic nephropathy; Z79.4 Long term (current) use of insulin; I10 Essential (primary) hypertension; E78.5 Hyperlipidemia, unspecified; E66.01 Morbid (severe) obesity due to excess calories; Z68.41 Body mass index [BMI] 40.0-44.9, adult; Z59.0 Homelessness | CPT/HCPCS: 82947; 99212 ==

== ENCOUNTER 2020-04-22 14:07 | Outpatient (REF) | payer OTHER, SELFPAY | END 2020-04-22 14:08 | disposition home or self-care (01) | LOC: HO.LAB 14:07 | PROVIDERS: PCP Internal Medicine; Visit Provider Internal Medicine | DX: Z20.828 Contact with and (suspected) exposure to other viral communicable diseases (principal) | CPT/HCPCS: U0003 ==

== ENCOUNTER 2020-04-28 11:23 | Outpatient (REF) | payer OTHER, SELFPAY | END 2020-04-28 11:24 | disposition home or self-care (01) | LOC: HO.LAB 11:23 | PROVIDERS: PCP Internal Medicine; Visit Provider Internal Medicine | DX: Z20.828 Contact with and (suspected) exposure to other viral communicable diseases (principal) | CPT/HCPCS: C9803; U0003 ==

== ENCOUNTER 2020-05-05 11:10 | Outpatient (REF) | payer OTHER, SELFPAY | END 2020-05-05 11:11 | disposition home or self-care (01) | LOC: HO.LAB 11:10 | PROVIDERS: PCP Internal Medicine; Visit Provider Internal Medicine | DX: Z20.828 Contact with and (suspected) exposure to other viral communicable diseases (principal) | CPT/HCPCS: C9803; U0003 ==

== ENCOUNTER → 2020-05-06 09:16 | Outpatient (BNVA) | payer OTHER, SELFPAY | PROVIDERS: PCP Internal Medicine; Referring Provider Internal Medicine; Visit Provider Nurse Practitioner Gerontology | DX: E11.65 Type 2 diabetes mellitus with hyperglycemia (principal); E11.29 Type 2 diabetes mellitus with other diabetic kidney complication; Z79.4 Long term (current) use of insulin; I10 Essential (primary) hypertension; E78.5 Hyperlipidemia, unspecified; E66.09 Other obesity due to excess calories; Z68.41 Body mass index [BMI] 40.0-44.9, adult | CPT/HCPCS: Q3014 ==

== ENCOUNTER 2020-05-10 12:22 | Emergency (ER) | payer OTHER, SELFPAY ==
[2020-05-10 12:26] VITALS: BP 137/97; BP 186/108; PULSE 93; PULSE 94; RESP 21; TEMP 36.4; O2SAT 99; BMI 31.7
--- NOTE | 2020-05-10 12:29 | ED_ITS ---
HPI - Altered Mental Status General Chief Complaint: General Medical Stated Complaint: LOW BS (48), 70 NOW AFTER D10 Time Seen by Provider: 05/10/20 12:28 Source: EMS Mode of arrival: EMS Limitations: language barrier History of Present Illness HPI narrative: [facility] jail un[facility], sugar was 48. Prior to event he was feeling dizzy. Patient states that novalog and tracevia are new. MD complaint: altered mental status and decreased responsiveness Onset (ago): minute(s) Timing confirmed by: caregiver Severity: moderate Context: diabetes Treatments prior to arrival: other (juice) Related Data Home Medications Medication Instructions Recorded Confirmed amlodipine 10 mg tablet 10 mg PO DAILY 04/22/20 05/06/20 escitalopram oxalate 10 mg tablet 10 mg PO DAILY 04/22/20 05/06/20 ezetimibe 10 mg tablet 10 mg PO DAILY 04/22/20 05/06/20 fenofibrate 54 mg tablet 54 mg PO DAILY 04/22/20 05/06/20 hydrochlorothiazide 25 mg tablet 25 mg PO DAILY 04/22/20 05/06/20 levothyroxine 137 mcg tablet 137 mcg PO DAILY 04/22/20 05/06/20 metformin 500 mg tablet 1,000 mg PO BID tab 04/22/20 05/06/20 simvastatin 40 mg tablet 40 mg PO DAILY 04/22/20 05/06/20 Previous Rx's Medication Instructions Recorded dulaglutide 1.5 mg/0.5 mL 1.5 mg SUBCUT QWEEK 28 Days #2 ml 04/22/20 subcutaneous pen injector insulin aspart U-100 100 unit/mL See Rx Instructions SUBCUT TID #15 04/22/20 (3 mL) subcutaneous pen ml insulin degludec 200 unit/mL (3 65 unit SUBCUT DAILY 30 Days #12 ml 04/22/20 mL) subcutaneous pen pen needle, diabetic 32 gauge x #360 ea 05/06/20 Allergies Allergy/AdvReac Type Severity Reaction Status Date / Time atorvastatin [ATORVASTATIN] Allergy Unknown skin Verified 05/09/20 08:15 eruption Review of Systems Constitutional: Constitutional: Reports no additional constitutional complaints Eyes: Eyes: Reports no additional eye complaints ENT: Denies dizziness Cardiovascular: Cardiovascular: Reports no additional cardiovascular complaints Respiratory: Respiratory: Reports as per HPI Gastrointestinal: Gastrointestinal: Reports no additional gastrointestinal complaints Musculoskeletal: Musculoskeletal: Reports no additional musculoskeletal complaints Integumentary/Breasts: Skin/Breast: Denies rash Neurologic: Reports system reviewed and no additional complaints, except as documented, Denies dizziness and Denies Sensory deficit (Neuro) Psychiatric: Psychiatric: Denies anxiety [facility] Past Medical History Medical History Cataracts, both eyes CHF (congestive heart failure) Cognitive developmental delay Diabetes Edema Essential hypertension HTN (hypertension) Hyperlipidemia Hyperlipidemia LDL goal <100 Hypothyroid Obesity due to excess calories Proteinuria Type 2 diabetes mellitus with hyperglycemia, with long-term current use of insulin Type 2 diabetes mellitus with other diabetic kidney complication Surgical History Hx of cataract surgery Hx of removal of cyst Family History Family History Father HTN (hypertension) Mother Diabetes mellitus Maternal Grandmother Diabetes mellitus Social History Social History (System 05/09/20 @ 08:15 by Donna Frank) Housing: Homeless Alcohol intake: never Smoking Status: Never smoker Smoked in Last 30 Days: No Use of substances other than those prescribed or required for medical reasons: No Advance Directives: No Advance Directives Information Provided: No Physical Exam Vital Signs: Vital Signs: Last Vital Signs Temp 98.7 F 05/10/20 15:24 Pulse 98 05/10/20 15:24 Resp 16 05/10/20 15:24 BP 163/75 H 05/10/20 15:24 Pulse Ox 100 05/10/20 15:24 Body Mass Index 31.7 Const: Nutritional Appearance: obese Orientation/consciousness: oriented to person Limitations: behavioral limitations and language barrier HENMT: Head: Yes normal to inspection Ears: external ears normal General nose exam: Normal external nose present Mouth: Normal oral and palatal mucosa present and oropharynx normal Throat: Yes posterior oropharynx normal Eyes: General: appearance normal, both eyes and all related structures Neck: Other: supple Neck: Yes normal visual inspection Chest: Chest palpation & inspection: normal inspection of the chest Resp: Auscultation: clear to auscultation bilaterally Cardio: Jugular venous distension: no JVD Rate: regular rate Rhythm: regular rhythm Heart sounds: S1 normal heart sound present and S2 normal heart sound present GI: Inspection: Yes normal to inspection Palpation (GI): Soft to palpation, nontender and No hepatosplenomegaly present Auscultation: normal bowel sounds : General: Yes no CVA tenderness Back/Spine/Pelvis: Back: no CVA tenderness Skin: General skin exam: no rashes or lesions noted Neuro: General: oriented to person Cranial nerves: Yes CN's II-XII intact bilaterally Motor exam (neuro): 5/5 motor strength present throughout Sensory Exam: No Sensory deficit (Neuro) Extrem: General: Yes normal to inspection Psych: Appearance: grossly normal Course Course Course Narrative: patient ate, sugar now 128, will dc home Reevaluation(s) Reevaluation #1: Discussed with Dr. Erik Lepe will hold insulin until seen by her. Had recently seen parquetry floor layer. MDM - Altered Mental Status MDM Narrative Medical decision making narrative: patient with evidence of hypoglycemia will discuss with PMD and discharge home Lab Data Result diagrams: 05/10/20 14:56 05/10/20 14:56 Labs: Lab Results 05/10/20 05/10/20 05/10/20 Range/Units 12:28 12:55 13:39 WBC (4.8-10.8) X10*3/uL RBC (4.60-5.80) X10*6/uL Hgb (14.0-18.0) g/dl Hct (42-52) % MCV (80-98) fL MCH (27.0-33.0) pg MCHC (31.0-36.0) g/dl RDW (11.0-16.0) % Plt Count (160-400) X10*3/uL MPV (9.4-12.4) fL Immature Gran % (Auto) (0.0-0.4) % Neut % (Auto) (45-73) % Lymph % (Auto) (20-40) % [place] % (Auto) (2-11) % Eos % (Auto) (0-4) % Baso % (Auto) (0-2) % Lymph # (Auto) (1.2-4.9) X10*3/uL [place] # (Auto) (0.1-1.2) X10*3/uL Eos # (Auto) (0.0-0.4) X10*3/uL Baso # (Auto) (0.0-0.2) X10*3/uL Abs Immat Gran (auto) (0.00-0.03) X10*3/uL Absolute Neuts (auto) (2.0-8.3) X10*3/uL Absolute Nucleated RBC (0.0-0.012) X10*3/uL Nucleated RBC % (auto) (0.0-0.2) /100WBC Sodium (135-145) mmol/L Potassium (3.3-5.1) mmol/l Chloride (96-108) mmol/L Carbon Dioxide (22-29) mmol/L Anion Gap (12-20) BUN (9-16) mg/dL Creatinine (0.5-1.4) mg/dL Estim Creat Clear Calc Estimated GFR POC Glucose 31 L* 41 L* 149 H (60-115) mg/dL Random Glucose (60-115) mg/dL Calcium (8.4-10.2) mg/dL Urine Color Urine Appearance Urine pH (5.0-8.0) Ur Specific [place] (1.005-1.025) Urine Protein (NEG-TRACE) MG/DL Urine Glucose (UA) (NEG) MG/DL Urine Ketones (NEG) MG/DL Urine Blood (NEG) Urine Nitrite (NEG) Ur Leukocyte Esterase (NEG) 05/10/20 05/10/20 05/10/20 Range/Units 14:56 14:56 15:26 WBC 9.8 (4.8-10.8) X10*3/uL RBC 5.25 (4.60-5.80) X10*6/uL Hgb 16.2 (14.0-18.0) g/dl Hct 47.2 (42-52) % MCV 89.9 (80-98) fL MCH 30.9 (27.0-33.0) pg MCHC 34.3 (31.0-36.0) g/dl RDW 12.2 (11.0-16.0) % Plt Count 264 (160-400) X10*3/uL MPV 10.1 (9.4-12.4) fL Immature Gran % (Auto) 0.3 (0.0-0.4) % Neut % (Auto) 76.1 H (45-73) % Lymph % (Auto) 17.3 L (20-40) % [place] % (Auto) 5.4 (2-11) % Eos % (Auto) 0.5 (0-4) % Baso % (Auto) 0.4 (0-2) % Lymph # (Auto) 1.7 (1.2-4.9) X10*3/uL [place] # (Auto) 0.5 (0.1-1.2) X10*3/uL Eos # (Auto) 0.1 (0.0-0.4) X10*3/uL Baso # (Auto) 0.0 (0.0-0.2) X10*3/uL Abs Immat Gran (auto) 0.03 (0.00-0.03) X10*3/uL Absolute Neuts (auto) 7.5 (2.0-8.3) X10*3/uL Absolute Nucleated RBC 0.000 (0.0-0.012) X10*3/uL Nucleated RBC % (auto) 0.0 (0.0-0.2) /100WBC Sodium 139 (135-145) mmol/L Potassium 5.0 D (3.3-5.1) mmol/l Chloride 104 (96-108) mmol/L Carbon Dioxide 26 (22-29) mmol/L Anion Gap 14 (12-20) BUN 18 H D (9-16) mg/dL Creatinine 0.84 (0.5-1.4) mg/dL Estim Creat Clear Calc 121.1 Estimated GFR > 60 POC Glucose (60-115) mg/dL Random Glucose 128 H D (60-115) mg/dL Calcium 8.9 (8.4-10.2) mg/dL Urine Color YELLOW Urine Appearance CLEAR Urine pH 6.5 (5.0-8.0) Ur Specific [place] 1.010 (1.005-1.025) Urine Protein TRACE (NEG-TRACE) MG/DL Urine Glucose (UA) 250 H (NEG) MG/DL Urine Ketones NEG (NEG) MG/DL Urine Blood NEG (NEG) Urine Nitrite NEG (NEG) Ur Leukocyte Esterase NEG (NEG) Discharge Plan Discharge Clinical Impression: Type 2 diabetes mellitus with hyperglycemia, with long-term current use of in sulin, Hypoglycemia associated with type 2 diabetes mellitus Patient Disposition: Home, Self-Care Instructions: Hypoglycemia in a Person with Diabetes (ED) Additional Instructions: Hold all insulin until seen by Dr. Valencia this week Prescriptions: No Action (DME) pen needle, diabetic [BD Ultra-Fine Adelina Pen Needle] 32 gauge x 5/32 needle See Rx Instructions .ROUTE .MEDSUPPLY Qty: 360 RF: 3 escitalopram oxalate 10 mg tablet 10 mg PO DAILY RF: 0 metformin 500 mg tablet 1,000 mg PO BID RF: 0 levothyroxine 137 mcg tablet 137 mcg PO DAILY RF: 0 simvastatin 40 mg tablet 40 mg PO DAILY RF: 0 ezetimibe [Zetia] 10 mg tablet 10 mg PO DAILY RF: 0 hydrochlorothiazide 25 mg tablet 25 mg PO DAILY RF: 0 amlodipine 10 mg tablet 10 mg PO DAILY RF: 0 fenofibrate 54 mg tablet 54 mg PO DAILY RF: 0 Trulicity 1.5 mg/0.5 mL pen injector 1.5 mg subcut QWEEK 28 Days Qty: 2 RF: 3 Tresiba FlexTouch U-200 200 unit/mL (3 mL) insulin pen 65 unit subcut DAILY 30 Days Qty: 12 RF: 3 insulin aspart U-100 [Novolog Flexpen U-100 Insulin] 100 unit/mL (3 mL) insulin pen See Rx Instructions subcut TID Qty: 15 RF: 3 Referrals: Adwoa Mcadams MD [Physician] - 2 days (must call for an expedited visit)
[2020-05-10 13:06] LABS: Glucose, Whole Blood 41 mg/dL (60-115)
[2020-05-10 13:45] LABS: Glucose, Whole Blood 149 mg/dL (60-115)
[2020-05-10 13:48] LABS: Glucose, Whole Blood 31 mg/dL (60-115)
[2020-05-10 15:06] LABS: MANUAL DIFF FLAG NO
[2020-05-10 15:08] LABS: Basophils Percent Auto 0.4 % (0-2); Eosinophils Absolute Auto 0.1 X10*3/uL (0.0-0.4); Eosinophils Percent Auto 0.5 % (0-4); Hematocrit 47.2 % (42-52); Hemoglobin 16.2 g/dl (14.0-18.0); Imm Gran Abs Auto 0.03 X10*3/uL (0.00-0.03); Imm Gran Pct Auto 0.3 % (0.0-0.4); Lymphocytes Absolute Auto 1.7 X10*3/uL (1.2-4.9); Lymphocytes Percent Auto 17.3 % (20-40); Mean Corpuscular HGB Conc 34.3 g/dl (31.0-36.0); Mean Corpuscular Hemoglobin 30.9 pg (27.0-33.0); Mean Corpuscular Volume 89.9 fL (80-98); Mean Platelet Volume 10.1 fL (9.4-12.4); Monocytes Absolute Auto 0.5 X10*3/uL (0.1-1.2); Monocytes Percent Auto 5.4 % (2-11); Neutrophils Absolute Auto 7.5 X10*3/uL (2.0-8.3); Neutrophils Percent Auto 76.1 % (45-73); Platelet Count 264 X10*3/uL (160-400); Red Blood Count 5.25 X10*6/uL (4.60-5.80); Red Cell Distribution Width 12.2 % (11.0-16.0); White Blood Count 9.8 X10*3/uL (4.8-10.8)
[2020-05-10 15:24] VITALS: BP 163/75; PULSE 98; RESP 16; TEMP 37.1; O2SAT 100
[2020-05-10 15:35] LABS: Appearance Urine CLEAR; Color Urine YELLOW; Glucose Urine UA 250 MG/DL (NEG); Leukocyte Esterase Urine NEG (NEG); Nitrite Urine NEG (NEG); PH 6.5 (5.0-8.0); Urine Blood NEG (NEG); Urine Ketones NEG (NEG); Urine Protein TRACE MG/DL (NEG-TRACE)
[2020-05-10 15:38] LABS: Anion Gap 14 (12-20); Blood Urea Nitrogen 18 mg/dL (9-16); Calcium 8.9 mg/dL (8.4-10.2); Carbon Dioxide 26 mmol/L (22-29); Chloride 104 mmol/L (96-108); Creatinine Clr Calc Pharmacy 121.1; Estimated Glomerular Filt Rate > 60; Glucose Random 128 mg/dL (60-115); Sodium 139 mmol/L (135-145)
== END 2020-05-10 17:26 | disposition home or self-care (01) ==
PROVIDERS: Emergency Provider Emergency Medicine
DX: E11.65 Type 2 diabetes mellitus with hyperglycemia (principal); E11.649 Type 2 diabetes mellitus with hypoglycemia without coma; I10 Essential (primary) hypertension; Z79.4 Long term (current) use of insulin; Z79.899 Other long term (current) drug therapy
CPT/HCPCS: 36415; 80048; 81003; 82947; 85025; 96374; 99284

== ENCOUNTER 2020-05-15 13:35 | Emergency (ER) | payer OTHER, SELFPAY ==
--- NOTE | 2020-05-15 13:45 | ED.WEAKNESS ---
HPI - Weakness General Chief complaint: Recheck/Abnormal Lab/Rx Stated complaint: LOW BS 40 W/AMS,BS 117 NOW w/NO AMS Time Seen by Provider: 05/15/20 13:37 Source: patient and EMS Mode of arrival: EMS Limitations: no limitations History of Present Illness HPI Narrative: This is a 49 years old brought by ambulance after an hypoglycemic episode. [facility], he was more confused his blood sugar was low he was given juice he ate a sandwich his sugar is better now MD Complaint: generalized weakness Onset (ago): day(s) Duration: constant Location: generalized Severity: moderate Related Data Home Medications Medication Instructions Recorded Confirmed amlodipine 10 mg tablet 10 mg PO DAILY 04/22/20 05/06/20 escitalopram oxalate 10 mg tablet 10 mg PO DAILY 04/22/20 05/06/20 ezetimibe 10 mg tablet 10 mg PO DAILY 04/22/20 05/06/20 fenofibrate 54 mg tablet 54 mg PO DAILY 04/22/20 05/06/20 hydrochlorothiazide 25 mg tablet 25 mg PO DAILY 04/22/20 05/06/20 levothyroxine 137 mcg tablet 137 mcg PO DAILY 04/22/20 05/06/20 metformin 500 mg tablet 1,000 mg PO BID tab 04/22/20 05/06/20 simvastatin 40 mg tablet 40 mg PO DAILY 04/22/20 05/06/20 Previous Rx's Medication Instructions Recorded dulaglutide 1.5 mg/0.5 mL 1.5 mg SUBCUT QWEEK 28 Days #2 ml 04/22/20 subcutaneous pen injector insulin aspart U-100 100 unit/mL See Rx Instructions SUBCUT TID #15 04/22/20 (3 mL) subcutaneous pen ml insulin degludec 200 unit/mL (3 65 unit SUBCUT DAILY 30 Days #12 ml 04/22/20 mL) subcutaneous pen pen needle, diabetic 32 gauge x #360 ea 05/06/20 Allergies Allergy/AdvReac Type Severity Reaction Status Date / Time atorvastatin [ATORVASTATIN] Allergy Unknown skin Verified 05/15/20 13:58 eruption Review of Systems Review of Systems: Yes all other systems are reviewed and are negative Respiratory: Respiratory: Reports no additional respiratory complaints Gastrointestinal: Gastrointestinal: Reports no additional gastrointestinal complaints Neurologic: Reports system reviewed and no additional complaints, except as documented [facility] Past Medical History Medical History Cataracts, both eyes CHF (congestive heart failure) Cognitive developmental delay Diabetes Edema Essential hypertension HTN (hypertension) Hyperlipidemia Hyperlipidemia LDL goal <100 Hypothyroid Obesity due to excess calories Proteinuria Type 2 diabetes mellitus with hyperglycemia, with long-term current use of insulin Type 2 diabetes mellitus with other diabetic kidney complication Surgical History Hx of cataract surgery Hx of removal of cyst Family History Family History Father HTN (hypertension) Mother Diabetes mellitus Maternal Grandmother Diabetes mellitus Social History Social History Housing: Homeless Alcohol intake: never Smoking Status: Never smoker Advance Directives: No Advance Directives Information Provided: Yes Physical Exam Vital Signs: Vital Signs: Last Vital Signs Temp 97.9 F 05/15/20 13:52 Pulse 94 05/15/20 13:52 Resp 16 05/15/20 13:52 BP 140/47 H 05/15/20 13:52 Pulse Ox 100 05/15/20 13:52 Body Mass Index 35.4 Const: Other: Patient is awake and alert in no acute distress, he has no complain at this time General: cooperative and healthy appearing Orientation/consciousness: oriented to person, oriented to place and oriented to time HENMT: Head: Yes normal to inspection Ears: hearing grossly normal bilaterally General nose exam: Normal external nose present Face and sinus: Yes normal facial exam Mouth: Normal oral and palatal mucosa present Eyes: General: appearance normal, both eyes and all related structures Neck: Neck: Yes normal visual inspection and Yes full ROM Chest: Chest palpation & inspection: normal inspection of the chest Resp: Effort & Inspection: normal respiratory effort and able to speak in complete sentences Cardio: Jugular venous distension: no JVD Palpation: normal PMI Rate: regular rate Rhythm: regular rhythm GI: Inspection: Yes normal to inspection Palpation (GI): Soft to palpation, nontender and no guarding Skin: General skin exam: no rashes or lesions noted Neuro: General: oriented to person, oriented to place and oriented to time Psych: Appearance: grossly normal Course Reevaluation(s) Reevaluation #1: Re-examined at this time the patient he is very comfortable asymptomatic anticipate discharge MDM - Weakness Lab Data Result diagrams: 05/15/20 15:23 05/15/20 15:23 Labs: Lab Results 05/15/20 05/15/20 Range/Units 15:23 16:09 WBC 9.6 (4.8-10.8) X10*3/uL RBC 4.86 (4.60-5.80) X10*6/uL Hgb 15.1 (14.0-18.0) g/dl Hct 44.0 (42-52) % MCV 90.5 (80-98) fL MCH 31.1 (27.0-33.0) pg MCHC 34.3 (31.0-36.0) g/dl RDW 12.1 (11.0-16.0) % Plt Count 216 (160-400) X10*3/uL MPV 10.2 (9.4-12.4) fL Immature Gran % (Auto) 0.3 (0.0-0.4) % Neut % (Auto) 81.3 H (45-73) % Lymph % (Auto) 12.3 L (20-40) % [place] % (Auto) 5.6 (2-11) % Eos % (Auto) 0.2 (0-4) % Baso % (Auto) 0.3 (0-2) % Lymph # (Auto) 1.2 (1.2-4.9) X10*3/uL [place] # (Auto) 0.5 (0.1-1.2) X10*3/uL Eos # (Auto) 0.0 (0.0-0.4) X10*3/uL Baso # (Auto) 0.0 (0.0-0.2) X10*3/uL Abs Immat Gran (auto) 0.03 (0.00-0.03) X10*3/uL Absolute Neuts (auto) 7.8 (2.0-8.3) X10*3/uL Absolute Nucleated RBC 0.000 (0.0-0.012) X10*3/uL Nucleated RBC % (auto) 0.0 (0.0-0.2) /100WBC POC Glucose 232 H (60-115) mg/dL Discharge Plan Discharge Prescriptions: No Action (DME) pen needle, diabetic [BD Ultra-Fine Adelina Pen Needle] 32 gauge x 5/32 needle See Rx Instructions .ROUTE .MEDSUPPLY Qty: 360 RF: 3 escitalopram oxalate 10 mg tablet 10 mg PO DAILY RF: 0 metformin 500 mg tablet 1,000 mg PO BID RF: 0 levothyroxine 137 mcg tablet 137 mcg PO DAILY RF: 0 simvastatin 40 mg tablet 40 mg PO DAILY RF: 0 ezetimibe [Zetia] 10 mg tablet 10 mg PO DAILY RF: 0 hydrochlorothiazide 25 mg tablet 25 mg PO DAILY RF: 0 amlodipine 10 mg tablet 10 mg PO DAILY RF: 0 fenofibrate 54 mg tablet 54 mg PO DAILY RF: 0 Trulicity 1.5 mg/0.5 mL pen injector 1.5 mg subcut QWEEK 28 Days Qty: 2 RF: 3 Tresiba FlexTouch U-200 200 unit/mL (3 mL) insulin pen 65 unit subcut DAILY 30 Days Qty: 12 RF: 3 insulin aspart U-100 [Novolog Flexpen U-100 Insulin] 100 unit/mL (3 mL) insulin pen See Rx Instructions subcut TID Qty: 15 RF: 3
[2020-05-15 13:52] VITALS: BP 140/47; PULSE 94; RESP 16; TEMP 36.6; O2SAT 100; BMI 35.4
--- NOTE | 2020-05-15 15:02 | PC.NURSE ---
NUMEROUS ATTEMPTS BY NUMEROUS MEMBERS OF STAFF TO COLLECT BLOOD SPECIMENS, ALL UNSUCCESSFUL. CALL PLACED OUT TO PHLEBOTOMY.
[2020-05-15 15:49] LABS: MANUAL DIFF FLAG NO
[2020-05-15 15:54] LABS: Basophils Percent Auto 0.3 % (0-2); Eosinophils Percent Auto 0.2 % (0-4); Hemoglobin 15.1 g/dl (14.0-18.0); Imm Gran Abs Auto 0.03 X10*3/uL (0.00-0.03); Imm Gran Pct Auto 0.3 % (0.0-0.4); Lymphocytes Absolute Auto 1.2 X10*3/uL (1.2-4.9); Lymphocytes Percent Auto 12.3 % (20-40); Mean Corpuscular HGB Conc 34.3 g/dl (31.0-36.0); Mean Corpuscular Hemoglobin 31.1 pg (27.0-33.0); Mean Corpuscular Volume 90.5 fL (80-98); Mean Platelet Volume 10.2 fL (9.4-12.4); Monocytes Absolute Auto 0.5 X10*3/uL (0.1-1.2); Monocytes Percent Auto 5.6 % (2-11); Neutrophils Absolute Auto 7.8 X10*3/uL (2.0-8.3); Neutrophils Percent Auto 81.3 % (45-73); Platelet Count 216 X10*3/uL (160-400); Red Blood Count 4.86 X10*6/uL (4.60-5.80); Red Cell Distribution Width 12.1 % (11.0-16.0); White Blood Count 9.6 X10*3/uL (4.8-10.8)
[2020-05-15 16:12] LABS: Glucose, Whole Blood 232 mg/dL (60-115)
[2020-05-15 16:27] LABS: Alanine Aminotransferase 17 U/L (0-40); Albumin Level 3.8 g/dL (3.5-5.0); Alkaline Phosphatase 69 U/L (39-117); Anion Gap 17 (12-20); Aspartate Amino Transferase 15 U/L (5-37); Bilirubin Total 0.4 mg/dL (0.0-1.0); Blood Urea Nitrogen 15 mg/dL (9-16); Calcium 8.4 mg/dL (8.4-10.2); Carbon Dioxide 21 mmol/L (22-29); Chloride 101 mmol/L (96-108); Creatinine Clr Calc Pharmacy 124.9; Estimated Glomerular Filt Rate > 60; Glucose Random 222 mg/dL (60-115); Potassium 4.1 mmol/l (3.3-5.1); Sodium 135 mmol/L (135-145); Total Protein 6.5 g/dL (6.5-8.0)
[2020-05-15 16:39] VITALS: BP 161/81; PULSE 91; RESP 18; TEMP 36.5; O2SAT 99
[2020-05-16 07:57] LABS: Glucose, Whole Blood 145 mg/dL (60-115)
== END 2020-05-15 17:20 | disposition home or self-care (01) ==
PROVIDERS: Emergency Provider Emergency Medicine; PCP Internal Medicine
DX: E11.641 Type 2 diabetes mellitus with hypoglycemia with coma (principal); I10 Essential (primary) hypertension; Z79.84 Long term (current) use of oral hypoglycemic drugs; Z79.899 Other long term (current) drug therapy
CPT/HCPCS: 36415; 80053; 82947; 85025; 99282; 99284

== ENCOUNTER 2020-05-26 16:18 | Outpatient (REF) | payer OTHER, SELFPAY | END 2020-05-26 16:19 | disposition home or self-care (01) | LOC: HO.LAB 16:18 | PROVIDERS: PCP Internal Medicine; Visit Provider Internal Medicine | DX: Z20.828 Contact with and (suspected) exposure to other viral communicable diseases (principal) | CPT/HCPCS: C9803; U0003 ==

== ENCOUNTER 2020-07-15 08:46 | Outpatient (REF) | payer OTHER, SELFPAY | END 2020-07-15 08:47 | disposition home or self-care (01) | LOC: HO.LAB 08:46 | PROVIDERS: PCP Internal Medicine; Visit Provider Internal Medicine | DX: Z20.822 Contact with and (suspected) exposure to COVID-19 (principal) | CPT/HCPCS: 36415; C9803; U0003 ==

== ENCOUNTER → 2020-11-08 11:09 | Outpatient (BNVA) | payer OTHER, SELFPAY | PROVIDERS: PCP Internal Medicine; Visit Provider Nurse Practitioner Gerontology | DX: E11.65 Type 2 diabetes mellitus with hyperglycemia (principal); E11.29 Type 2 diabetes mellitus with other diabetic kidney complication; R80.9 Proteinuria, unspecified; I10 Essential (primary) hypertension; E78.5 Hyperlipidemia, unspecified; E66.01 Morbid (severe) obesity due to excess calories; Z68.41 Body mass index [BMI] 40.0-44.9, adult; Z79.4 Long term (current) use of insulin | CPT/HCPCS: 82947; 99212 ==

== ENCOUNTER → 2020-11-22 10:05 | Outpatient (BNVA) | payer OTHER, SELFPAY | PROVIDERS: PCP Internal Medicine; Visit Provider Nurse Practitioner Gerontology | DX: E11.65 Type 2 diabetes mellitus with hyperglycemia (principal); E11.29 Type 2 diabetes mellitus with other diabetic kidney complication; R80.9 Proteinuria, unspecified; I10 Essential (primary) hypertension; E78.5 Hyperlipidemia, unspecified; E66.01 Morbid (severe) obesity due to excess calories; Z68.41 Body mass index [BMI] 40.0-44.9, adult; Z79.4 Long term (current) use of insulin | CPT/HCPCS: 82947; 99212 ==

== ENCOUNTER → 2020-12-06 08:55 | Outpatient (BNVA) | payer OTHER, SELFPAY | PROVIDERS: PCP Internal Medicine; Visit Provider Nurse Practitioner Gerontology | DX: E11.65 Type 2 diabetes mellitus with hyperglycemia (principal); E11.29 Type 2 diabetes mellitus with other diabetic kidney complication; E78.5 Hyperlipidemia, unspecified; E66.01 Morbid (severe) obesity due to excess calories; R80.9 Proteinuria, unspecified; I10 Essential (primary) hypertension; Z79.4 Long term (current) use of insulin; Z68.41 Body mass index [BMI] 40.0-44.9, adult | CPT/HCPCS: 82947; 99212 ==

== ENCOUNTER 2021-05-13 21:08 | Inpatient (IN) | payer OTHER, SELFPAY ==
--- NOTE | 2021-05-13 | ECG_ITS ---
Test Reason : HYPERGLYCEMIA Blood Pressure : / mmHG Vent. Rate : 104 BPM Atrial Rate : 104 BPM P-R Int : 150 ms QRS Dur : 082 ms QT Int : 344 ms P-R-T Axes : 038 -36 055 degrees QTc Int : 452 ms Sinus tachycardia RSR' or QR pattern in V1 suggests right ventricular conduction delay Left anterior fascicular block Poor R wave progression Abnormal ECG When compared with ECG of 13-APR-2020 07:12, Heart rate has increased Referred By: Generic ED Physician Electronically Signed By:COLLIN FIELD MD
[2021-05-13 21:18] VITALS: BP 159/85; BP 178/80; PULSE 100; PULSE 102; RESP 19; TEMP 36.4; O2SAT 100; O2SAT 98; BMI 32.5
[2021-05-13 21:29] LABS: Glucose, Whole Blood > 600 mg/dL (60-115)
[2021-05-13 21:29] LABS: Glucose, Whole Blood > 600 mg/dL (60-115)
[2021-05-13 21:47] LABS: MANUAL DIFF FLAG NO
[2021-05-13 21:51] LABS: Basophils Percent Auto 0.5 % (0-2); Eosinophils Percent Auto 0.7 % (0-4); Hematocrit 39.7 % (42.0-52.0); Hemoglobin 14.3 g/dl (14.0-18.0); Imm Gran Abs Auto 0.03 X10*3/uL (0.00-0.03); Imm Gran Pct Auto 0.5 % (0.0-0.4); Lymphocytes Absolute Auto 1.1 X10*3/uL (1.2-4.9); Lymphocytes Percent Auto 19.2 % (20-40); Mean Corpuscular Hemoglobin 32.9 pg (27.0-33.0); Mean Corpuscular Volume 91.3 fL (80.0-98.0); Mean Platelet Volume 10.9 fL (9.4-12.4); Monocytes Absolute Auto 0.8 X10*3/uL (0.1-1.2); Monocytes Percent Auto 14.1 % (2-11); Neutrophils Absolute Auto 3.5 x10*3/uL (2.0-8.3); Platelet Count 180 X10*3/uL (160-400); Red Blood Count 4.35 X10*6/uL (4.60-5.80); Red Cell Distribution Width 12.6 % (11.0-16.0); White Blood Count 5.5 X10*3/uL (4.8-10.8)
[2021-05-13 22:00] VITALS: BP 140/89; PULSE 101; RESP 16; TEMP 36.9; O2SAT 97
--- NOTE | 2021-05-13 22:15 | ED.GENADULT ---
HPI - General Adult General Chief complaint: General Medical Stated complaint: HIGH BLOOD SUGAR READING PER EMS Time Seen by Provider: 05/13/21 22:06 Source: patient Mode of arrival: ambulatory Limitations: no limitations History of Present Illness HPI narrative: Patient comes emergency room complaining of high blood sugar. Patient states that he usually takes NovoLog 3 times a day and Tresiba at night. Prior to arrival, patient injected his usual dose of 80 units of Tresiba. Patient states that after 20 minutes his blood sugar was still reeling as ?high?. Patient's family called EMS. Patient states that he is asymptomatic. Related Data Home Medications Medication Instructions Recorded Confirmed amlodipine 10 mg tablet 10 mg PO DAILY 04/22/20 12/06/20 ezetimibe 10 mg tablet (Zetia) 10 mg PO DAILY 04/22/20 12/06/20 fenofibrate 54 mg tablet 54 mg PO DAILY 04/22/20 12/06/20 hydrochlorothiazide 25 mg tablet 25 mg PO DAILY 04/22/20 12/06/20 simvastatin 40 mg tablet 40 mg PO DAILY 04/22/20 12/06/20 Previous Rx's Medication Instructions Recorded pen needle, diabetic 32 gauge x #360 ea 05/06/20 (BD Ultra-Fine Adelina Pen Needle) escitalopram oxalate 10 mg tablet 10 mg PO DAILY 90 Days #90 tab 05/17/20 levothyroxine 137 mcg tablet 137 mcg PO DAILY 90 Days #90 tab 05/17/20 lisinopril 10 mg tablet 10 mg PO DAILY 90 Days #90 tab 05/17/20 metformin 500 mg tablet 500 mg PO BID #180 tab 08/17/20 dulaglutide 1.5 mg/0.5 mL 1.5 mg (0.5 mL) SUBCUT QWEEK 08/18/20 subcutaneous pen injector Days #2 ml (Trulicity) blood sugar diagnostic (FreeStyle #50 ea 11/08/20 Precision Gama Strips) insulin aspart U-100 100 unit/mL 20 unit (0.2 mL) SUBCUT TID 11/22/20 (3 mL) subcutaneous pen (Novolog Days #18 ml Flexpen U-100 Insulin aspart) insulin degludec 200 unit/mL (3 75 unit (0.375 mL) SUBCUT DAILY 30 11/22/20 mL) subcutaneous pen (Tresiba Days #18 ml FlexTouch U-200 insulin) flash glucose scanning reader #1 ea 12/06/20 (FreeStyle Leonel 14 Day [place]) Allergies Allergy/AdvReac Type Severity Reaction Status Date / Time atorvastatin [ATORVASTATIN] Allergy Unknown skin Verified 12/06/20 09:22 eruption Review of Systems Review of Systems: Constitutional : No Weight loss, No Fever, No Chills, No Night Sweats, No Fatigue, No Malaise ENT/Mouth : No Hearing loss, No Ear Pain, No Nasal Congestion, No Sinus Pain, No Hoarseness, No sore throat, No Rhinorrhea, No Swallowing Difficulty Eyes: No Eye Pain, No Swelling, No Redness, No Foreign Body, No Discharge, No Vision Changes Cardiovascular : No Chest Pain, No SOB, No Dyspnea on Exertion, No Orthopnea, No Edema, No Palpitations Respiratory : No Cough, No Sputum, No Wheezing, No Smoke Exposure, No Dyspnea Gastrointestinal : No Nausea, No Vomiting, No Diarrhea, No Constipation, No abdominal Pain, No Hematochezia, No Melena Genitourinary : no irregular bleeding, No Dysuria, No Urinary Frequency, No Hematuria, No Urinary Incontinence, No Urgency, No Flank Pain, No Urinary Flow Changes, No Hesitancy Musculoskeletal : No joint pain, No Myalgias, No Joint Swelling Skin : No Skin Lesions, No rash Neuro : No Weakness, No Numbness, No Paresthesias, No Loss of Consciousness, No Dizziness, No Headache Psych : No Anxiety/Panic, No Depression, No SI/HI/AH/VH, No Social Issues, Heme/Lymph: No Bruising, No Bleeding,No Lymphadenopathy Endocrine : Complaining of high blood sugar [facility] Past Medical History Medical History Autoimmune thyroiditis Cataracts, both eyes CHF (congestive heart failure) Cognitive developmental delay Diabetes Edema Essential hypertension HTN (hypertension) Hyperlipidemia Hyperlipidemia LDL goal <100 Hypothyroid Obesity due to excess calories Proteinuria Type 2 diabetes mellitus with hyperglycemia, with long-term current use of insulin Type 2 diabetes mellitus with other diabetic kidney complication Surgical History Hx of cataract surgery Hx of removal of cyst Family History Family History Father HTN (hypertension) Mother Diabetes mellitus Maternal Grandmother Diabetes mellitus Social History Social History (Updated 11/08/20 @ 11:54 by SUSANA Blount) Housing: Homeless Housing Other:: staying at [facility] Alcohol intake: never Advance Directives: No Advance Directives Information Provided: No Physical Exam Vital Signs: Vital Signs: Last Vital Signs Temp 98.4 F 05/13/21 22:00 Pulse 99 05/13/21 23:54 Resp 16 05/13/21 23:54 BP 107/73 05/13/21 23:54 Pulse Ox 96 05/13/21 23:54 Body Mass Index 32.5 Const: Other: Appearance: Alert. Oriented X3. No acute distress. Eyes: Pupils equal, round and reactive to light. ENT: Pharynx normal. Neck: Normal inspection. Neck supple. No lymph nodes noted. No crepitus CVS: Normal heart rate and rhythm. Pulses normal. Normal S1 and S2 Respiratory: No respiratory distress. Breath sounds normal. No Wheezing. No rales Abdomen: Soft and nontender. No rigidity. No distention. good BS x4 Skin: Skin warm and dry. Normal skin color. Normal skin turgor. Extremities: No lower extremity edema. No Lacerations. No Rash Neuro: Oriented X 3. No motor deficit. No sensory deficit. Moving all extermities. No slurred speech. Course Course Course Narrative: Patient's blood sugar is 1086. Patient is asymptomatic. Patient has received fluids, insulin bolus and is on an insulin drip. Patient being admitted to the ICU. Medical Decision Making Lab Data Result diagrams: 05/13/21 21:43 05/13/21 21:43 Labs: Lab Results 05/13/21 05/13/21 05/13/21 Range/Units 21:19 21:25 21:43 WBC 5.5 (4.8-10.8) X10*3/uL RBC 4.35 L (4.60-5.80) X10*6/uL Hgb 14.3 (14.0-18.0) g/dl Hct 39.7 L (42.0-52.0) % MCV 91.3 (80.0-98.0) fL MCH 32.9 (27.0-33.0) pg MCHC 36.0 (31.0-36.0) g/dl RDW 12.6 (11.0-16.0) % Plt Count 180 (160-400) X10*3/uL MPV 10.9 (9.4-12.4) fL Immature Gran % (Auto) 0.5 H (0.0-0.4) % Neut % (Auto) 65.0 (45-73) % Lymph % (Auto) 19.2 L (20-40) % [place] % (Auto) 14.1 H (2-11) % Eos % (Auto) 0.7 (0-4) % Baso % (Auto) 0.5 (0-2) % Lymph # (Auto) 1.1 L (1.2-4.9) X10*3/uL [place] # (Auto) 0.8 (0.1-1.2) X10*3/uL Eos # (Auto) 0.0 (0.0-0.4) X10*3/uL Baso # (Auto) 0.0 (0.0-0.2) X10*3/uL Abs Immat Gran (auto) 0.03 (0.00-0.03) X10*3/uL Absolute Neuts (auto) 3.5 (2.0-8.3) x10*3/uL Absolute Nucleated RBC 0.000 (0.0-0.012) X10*3/uL Nucleated RBC % (auto) 0.0 (0.0-0.2) /100WBC Sodium (135-145) mmol/L Potassium (3.3-5.1) mmol/L Chloride (96-108) mmol/L Carbon Dioxide (22-29) mmol/L Anion Gap (12-20) BUN (9-16) mg/dL Creatinine (0.5-1.4) mg/dL Estim Creat Clear Calc Estimated GFR POC Glucose > 600 H* > 600 H* (60-115) mg/dL Random Glucose (60-115) mg/dL Calcium (8.4-10.2) mg/dL Total Bilirubin (0.0-1.0) mg/dL Direct Bilirubin (0.0-0.5) mg/dL AST (5-37) U/L ALT (0-40) U/L Alkaline Phosphatase (39-117) U/L Total Protein (6.5-8.0) g/dL Albumin (3.5-5.0) g/dL Lipase (8-78) U/L Acetone, Qual (Negative) 05/13/21 05/13/21 Range/Units 21:43 23:49 WBC (4.8-10.8) X10*3/uL RBC (4.60-5.80) X10*6/uL Hgb (14.0-18.0) g/dl Hct (42.0-52.0) % MCV (80.0-98.0) fL MCH (27.0-33.0) pg MCHC (31.0-36.0) g/dl RDW (11.0-16.0) % Plt Count (160-400) X10*3/uL MPV (9.4-12.4) fL Immature Gran % (Auto) (0.0-0.4) % Neut % (Auto) (45-73) % Lymph % (Auto) (20-40) % [place] % (Auto) (2-11) % Eos % (Auto) (0-4) % Baso % (Auto) (0-2) % Lymph # (Auto) (1.2-4.9) X10*3/uL [place] # (Auto) (0.1-1.2) X10*3/uL Eos # (Auto) (0.0-0.4) X10*3/uL Baso # (Auto) (0.0-0.2) X10*3/uL Abs Immat Gran (auto) (0.00-0.03) X10*3/uL Absolute Neuts (auto) (2.0-8.3) x10*3/uL Absolute Nucleated RBC (0.0-0.012) X10*3/uL Nucleated RBC % (auto) (0.0-0.2) /100WBC Sodium 115 L* (135-145) mmol/L Potassium 5.5 H (3.3-5.1) mmol/L Chloride 81 L (96-108) mmol/L Carbon Dioxide 14 L (22-29) mmol/L Anion Gap 26 H (12-20) BUN 28 H D (9-16) mg/dL Creatinine 2.06 H (0.5-1.4) mg/dL Estim Creat Clear Calc 54.0 Estimated GFR 34 POC Glucose > 600 H* (60-115) mg/dL Random Glucose 1086 H* (60-115) mg/dL Calcium 8.7 (8.4-10.2) mg/dL Total Bilirubin 0.8 (0.0-1.0) mg/dL Direct Bilirubin 0.3 (0.0-0.5) mg/dL AST 16 (5-37) U/L ALT 17 (0-40) U/L Alkaline Phosphatase 96 D (39-117) U/L Total Protein 7.0 (6.5-8.0) g/dL Albumin 3.7 (3.5-5.0) g/dL Lipase 75 (8-78) U/L Acetone, Qual Moderate H (Negative) Critical Care Time Critical Care Time Critical Care Time: Yes Total Critical Care Time: 50 Attestation: 50 minutes were spent in direct patient care and stabilization. Discharge Plan Discharge Clinical Impression: Type 2 diabetes mellitus with hyperosmolar hyperglycemic state (HHS), Acute kidney injury Patient Disposition: Admitted As Inpatient Prescriptions: No Action metformin 500 mg tablet 500 mg PO BID Qty: 180 RF: 0 Trulicity 1.5 mg/0.5 mL pen injector 1.5 mg subcut QWEEK 28 Days Qty: 2 RF: 2 escitalopram oxalate 10 mg tablet 10 mg PO DAILY 90 Days Qty: 90 RF: 3 levothyroxine 137 mcg tablet 137 mcg PO DAILY 90 Days Qty: 90 RF: 2 lisinopril 10 mg tablet 10 mg PO DAILY 90 Days Qty: 90 RF: 3 (DME) pen needle, diabetic [BD Ultra-Fine Adelina Pen Needle] 32 gauge x 5/32 needle See Rx Instructions .ROUTE .MEDSUPPLY Qty: 360 RF: 3 (DME) FreeStyle Precision Gama Strips Strip See Rx Instructions .ROUTE .MEDSUPPLY Qty: 50 RF: 11 simvastatin 40 mg tablet 40 mg PO DAILY RF: 0 ezetimibe [Zetia] 10 mg tablet 10 mg PO DAILY RF: 0 hydrochlorothiazide 25 mg tablet 25 mg PO DAILY RF: 0 amlodipine 10 mg tablet 10 mg PO DAILY RF: 0 fenofibrate 54 mg tablet 54 mg PO DAILY RF: 0 insulin aspart U-100 [Novolog Flexpen U-100 Insulin] 100 unit/mL (3 mL) insulin pen 20 unit subcut TID 30 Days Qty: 18 RF: 2 Tresiba FlexTouch U-200 200 unit/mL (3 mL) insulin pen 75 unit subcut DAILY 30 Days Qty: 18 RF: 2 (DME) FreeStyle Leonel 14 Day [place] Misc See Rx Instructions .ROUTE .MEDSUPPLY Qty: 1 RF: 0
[2021-05-13] MEDS: Insulin Regular, Human 100 UNIT/ML 3 ML VIAL 10 UNIT IVPUSH (22:33)
[2021-05-13] MEDS: 0.9 % Sodium Chloride 2,000 ML 999 ML IVCONT (22:35)
--- NOTE | 2021-05-13 22:40 | PC.NURSE ---
NS X 2 UP AND RUNNING W/O, SITE INTACT. INSULIN GIVEN PER EMAR. PT DENIES ANY COMPLAINTS AT THIS TIME. WILL CONTINUE TO MONITOR PT.
[2021-05-13 22:43] LABS: Acetone, serum QL Moderate (Negative)
--- NOTE | 2021-05-13 22:45 | PC.NURSE ---
DR. MARIE AWARE OF HIGH BS AND ORDERING BS TO BE CHECKED HOURLY.
[2021-05-13 22:54] LABS: Alanine Aminotransferase 17 U/L (0-40); Albumin Level 3.7 g/dL (3.5-5.0); Alkaline Phosphatase 96 U/L (39-117); Anion Gap 26 (12-20); Aspartate Amino Transferase 16 U/L (5-37); Bilirubin Direct 0.3 mg/dL (0.0-0.5); Bilirubin Total 0.8 mg/dL (0.0-1.0); Blood Urea Nitrogen 28 mg/dL (9-16); Calcium 8.7 mg/dL (8.4-10.2); Carbon Dioxide 14 mmol/L (22-29); Chloride 81 mmol/L (96-108); Estimated Glomerular Filt Rate 34; Glucose Random 1086 mg/dL (60-115); Lipase 75 U/L (8-78); Potassium 5.5 mmol/L (3.3-5.1); Sodium 115 mmol/L (135-145)
[2021-05-13 23:54] VITALS: BP 107/73; PULSE 99; RESP 16; O2SAT 96
[2021-05-13 23:54] LABS: Glucose, Whole Blood > 600 mg/dL (60-115)
[2021-05-14] VITALS (14 sets, daily range): BP systolic 90–133; BP diastolic 40–81; PULSE 75–96; RESP 13–28; TEMP 36.4–36.8; O2SAT 97–99; BMI 27.7
[2021-05-14] MEDS: Insulin Regular, Human 100 UNIT/ML 3 ML VIAL 10 UNIT IVPUSH (00:39)
[2021-05-14] MEDS: Insulin Regular/NS 100 UNIT/100 ML PLAST..BAG 6 UNIT IVCONT (00:39)
[2021-05-14] MEDS: Lactated Ringers 1,000 ML 125 ML IVCONT ×3 (00:52→16:30)
--- NOTE | 2021-05-14 00:55 | P.HPCC_ITS ---
History of Present Illness Date of Service: 05/14/21 Attending physician on admission: Jorge Gayle Chief Complaint: High blood glucose The patient is a 49-year-old primarily Romansh-speaking male with a past medical history of diabetes mellitus type 2, cognitive developmental delay, congestive heart failure, hypertension, autoimmune thyroiditis, hypothyroid, hyperlipidemia who presents to the emergency room [facility] with high blood sugars.? Patient states his sugars were reading high, despite giving himself his nighttime 80 units of Tresiba. ?Patient is asymptomatic since arrival. Vital signs are stable. ?Laboratory data significant for sodium of 115, potassium 5.5, serum bicarb 18, anion gap 26, BUN 28, creatinine 2.06, random glucose 1086. Will admit patient to the ICU for management of high b,ood glucose requiring insulin drip Review of Systems Review of Systems: Constitutional: No fever, chills, fatigue, weakness Eyes: No visual loss, blurred vision, double vision or yellow sclera ENT: No congestion, runny nose and sore throat Respiratory: No shortness of breath, cough. No sputum production. Cardiovascular: No chest pain, chest pressure or chest discomfort. No palpitations or pedal edema. Gastrointestinal: No nausea, vomiting, diarrhea. No abdominal pain Genitourinary: No burning micturition. No urinary frequency or incontinence. Neurologic: No headache, dizziness, syncope, unilateral weakness, ataxia, n umbness or tingling in the extremities. No change in bowel or bladder control. Musculoskeletal: No muscle pain, back pain, joint pain or stiffness. Hematologic/Lymphatics: No bleeding or bruising. No painful lymph nodes. Skin: No rash or itching. Endocrine: No cold or heat intolerance. No polyuria or polydipsia PMFSH Past Medical History Medical History Autoimmune thyroiditis Cataracts, both eyes CHF (congestive heart failure) Cognitive developmental delay Diabetes Edema Essential hypertension HTN (hypertension) Hyperlipidemia Hyperlipidemia LDL goal <100 Hypothyroid Obesity due to excess calories Proteinuria Type 2 diabetes mellitus with hyperglycemia, with long-term current use of insulin Type 2 diabetes mellitus with other diabetic kidney complication Family History Family History Father HTN (hypertension) Mother Diabetes mellitus Maternal Grandmother Diabetes mellitus Surgical History Surgical History Hx of cataract surgery Hx of removal of cyst Social History Social History (Updated 11/08/20 @ 11:54 by SUSANA Blount) Housing: Homeless Housing Other:: staying at [facility] Alcohol intake: never Advance Directives: No Advance Directives Information Provided: No Meds Allergies Allergy/AdvReac Type Severity Reaction Status Date / Time atorvastatin [ATORVASTATIN] Allergy Unknown skin Verified 12/06/20 09:22 eruption Active Medications: Current Medications Acetaminophen (Acetaminophen 325 Mg Tablet) 650 mg PO Q6H PRN PRN Reason: Pain, Moderate (Pain Scale 4-6 Heparin Sodium (Porcine) (Heparin Sodium,Porcine 5,000 Unit/Ml Vial) 5,000 unit SUBCUT Q8H [facility] Insulin Human Regular (Myxredlin) 100 unit in 100 mls @ 0 mls/hr IVCONT .Q0M [facility]; Protocol Last Admin: 05/14/21 00:39 Dose: 6 unit/hr, 6 mls/hr Documented by: Lactated Ringer's (Lr) 1,000 mls @ 125 mls/hr IVCONT .Q8H [facility] Home Medications Medication Instructions Recorded Confirmed Last Taken Type amlodipine 10 mg tablet 10 mg PO DAILY 04/22/20 12/06/20 Unknown History ezetimibe 10 mg tablet (Zetia) 10 mg PO DAILY 04/22/20 12/06/20 Unknown History fenofibrate 54 mg tablet 54 mg PO DAILY 04/22/20 12/06/20 Unknown History hydrochlorothiazide 25 mg tablet 25 mg PO DAILY 04/22/20 12/06/20 Unknown History simvastatin 40 mg tablet 40 mg PO DAILY 04/22/20 12/06/20 Unknown History Physical Exam Vital Signs: Vital Signs: Last Vital Signs Temp 98.4 F 05/13/21 22:00 Pulse 99 05/13/21 23:54 Resp 16 05/13/21 23:54 BP 107/73 05/13/21 23:54 Pulse Ox 96 05/13/21 23:54 Body Mass Index 32.5 Constitutional: Alert, no distress Mental Status: Underlying cognitively delay, but oriented to person and place. Head: Normocephalic. Eyes: Pupils are equal, round and reactive to light. Extraocular muscles intact. Ear, Nose and Throat: Oropharynx clear, mucous membranes moist. Ears and nose without masses, lesions or deformities. Trachea midline. Neck: Supple, Full range of motion. Respiratory: Lungs CTA.? No wheezing. Cardiovascular: S1 S2 regular. No murmurs, rubs or gallops. Gastrointestinal: Abdomen soft, non-tender, non-distended. Normal bowel sounds. No pulsatile mass. No hepatosplenomegaly. Genitourinary: No costovertebral angle tenderness. Neurologic: Cranial nerves II-XII grossly intact. No focal neurological deficits. Psychiatric: Normal mood and affect Results Labs CBC and Chem 7: 05/13/21 21:43 05/13/21 21:43 Labs: Laboratory Results - last 24 hr 05/13/21 05/13/21 05/13/21 21:19 21:25 21:43 MCV 91.3 MCH 32.9 MCHC 36.0 RDW 12.6 Plt Count 180 MPV 10.9 Immature Gran % (Auto) 0.5 H Neut % (Auto) 65.0 Lymph % (Auto) 19.2 L [place] % (Auto) 14.1 H Eos % (Auto) 0.7 Baso % (Auto) 0.5 Lymph # (Auto) 1.1 L [place] # (Auto) 0.8 Eos # (Auto) 0.0 Baso # (Auto) 0.0 Abs Immat Gran (auto) 0.03 Absolute Neuts (auto) 3.5 Absolute Nucleated RBC 0.000 Nucleated RBC % (auto) 0.0 Anion Gap Estim Creat Clear Calc Estimated GFR POC Glucose > 600 H* > 600 H* Random Glucose Calcium Total Bilirubin Direct Bilirubin AST ALT Alkaline Phosphatase Total Protein Albumin Lipase Acetone, Qual 05/13/21 05/13/21 21:43 23:49 MCV MCH MCHC RDW Plt Count MPV Immature Gran % (Auto) Neut % (Auto) Lymph % (Auto) [place] % (Auto) Eos % (Auto) Baso % (Auto) Lymph # (Auto) [place] # (Auto) Eos # (Auto) Baso # (Auto) Abs Immat Gran (auto) Absolute Neuts (auto) Absolute Nucleated RBC Nucleated RBC % (auto) Anion Gap 26 H Estim Creat Clear Calc 54.0 Estimated GFR 34 POC Glucose > 600 H* Random Glucose 1086 H* Calcium 8.7 Total Bilirubin 0.8 Direct Bilirubin 0.3 AST 16 ALT 17 Alkaline Phosphatase 96 D Total Protein 7.0 Albumin 3.7 Lipase 75 Acetone, Qual Moderate H Assessment and Plan (1) Diabetic ketoacidosis: Qualifiers: Diabetes mellitus type: type 2 Status: Acute (2) Type 2 diabetes mellitus with hyperosmolar hyperglycemic state (HHS): Status: Acute (3) Acute kidney injury: Status: Acute (4) Hyperkalemia: Status: Acute (5) Hyponatremia: Status: Acute 50-year-old male with a past medical history poorly controlled type 2 diabetes, admitted for the management of HHS vs. DKA Neuro:? no acute issues?? Cardiac:? no acute issues Pulmonary:? no acute issues?? Renal:? JJ- ? most likely related to hypoperfusion, nonoliguric.? Continue IV fluid.? Continue to check renal induces and urine output Hyponatremia/ Hyperkalemia-? most likely related to DKA.? Closely monitor electrolytes:?? GI:?? No acute issues Endo:??? type 1 diabetes /diabetic ketoacidosis vs HHS-?patient had appointment with Endocrine in November/2020 were average blood glucose levels range in the 400s. ?Has poorly control diabetes. ?Will closely monitor for symptoms of hypoglycemia with correction of glucose. Will send urine and VBG to differentiate DKA vs HHS. Continue insulin drip until gap is close. Follow Insulin protocol? ID: ? no acute issues? Heme/Onc:? No acute issues. Miscellaneous:? No acute issues. Prophylaxis:? Subcu heparin Diet: ? NPO? with sips of water/ ice chips Critical care time: 60x minutes of critical care time? CODE: FULL Case discussed with attending Dr. Gayle ? Critical Care Time Critical Care Time (minutes): 60
[2021-05-14] MEDS: Heparin Sodium,Porcine 5,000 UNIT/ML VIAL 5000 UNIT SUBCUT ×3 (01:06→17:44)
--- NOTE | 2021-05-14 01:30 | PC.NURSE ---
pt to ICU on stretcher on monitor at this time. insulin drip up and running on pump at 6unit/hr as per orders. LR up and running on pump at 125ml/hr, attempting to call report. pt awaiting for transfer to ICU.
--- NOTE | 2021-05-14 01:39 | PC.NURSE ---
report to ICU. pt to ICU in stretcher at this time.
[2021-05-14 02:28] LABS: Glucose, Whole Blood 502 mg/dL (60-115)
[2021-05-14 02:58] LABS: Glucose, Whole Blood 428 mg/dL (60-115)
[2021-05-14 03:56] LABS: Glucose, Whole Blood 361 mg/dL (60-115)
--- NOTE | 2021-05-14 04:40 | PC.NURSE ---
pt admitted to ICU for DKA vs HHNK. Pt states no complaints except for slight dizziness. Pt origional POC was over 1000. Latest POC was in the 300s. On an insulin drip at at 6 units per hour. Pt sleeping at this time
[2021-05-14 05:04] LABS: Glucose, Whole Blood 309 mg/dL (60-115)
[2021-05-14 05:28] LABS: VBG HCO3 22 mmol/L (22-26); VBG pCO2 29 mmHg; VBG pH 7.49 (7.32-7.43); VBG pO2 70 mmHg
[2021-05-14 05:41] LABS: MANUAL DIFF FLAG NO
[2021-05-14 05:45] LABS: Basophils Percent Auto 0.3 % (0-2); Eosinophils Absolute Auto 0.1 X10*3/uL (0.0-0.4); Eosinophils Percent Auto 1.8 % (0-4); Hematocrit 36.8 % (42.0-52.0); Hemoglobin 13.5 g/dl (14.0-18.0); Imm Gran Abs Auto 0.02 X10*3/uL (0.00-0.03); Imm Gran Pct Auto 0.3 % (0.0-0.4); Lymphocytes Absolute Auto 2.3 X10*3/uL (1.2-4.9); Lymphocytes Percent Auto 34.2 % (20-40); Mean Corpuscular HGB Conc 36.7 g/dl (31.0-36.0); Mean Corpuscular Hemoglobin 31.9 pg (27.0-33.0); Mean Platelet Volume 10.6 fL (9.4-12.4); Monocytes Absolute Auto 0.9 X10*3/uL (0.1-1.2); Monocytes Percent Auto 13.5 % (2-11); Neutrophils Absolute Auto 3.3 x10*3/uL (2.0-8.3); Neutrophils Percent Auto 49.9 % (45-73); Platelet Count 175 X10*3/uL (160-400); Red Blood Count 4.23 X10*6/uL (4.60-5.80); Red Cell Distribution Width 12.2 % (11.0-16.0); White Blood Count 6.7 X10*3/uL (4.8-10.8)
[2021-05-14 06:01] LABS: Phosphorus 2.9 mg/dL (2.7-4.5)
[2021-05-14 06:02] LABS: Glucose, Whole Blood 273 mg/dL (60-115)
[2021-05-14 07:13] LABS: Glucose, Whole Blood 217 mg/dL (60-115)
[2021-05-14 07:35] LABS: Venous Blood Gas Refer to POC result
[2021-05-14 08:00] LABS: Anion Gap 14 (12-20); Blood Urea Nitrogen 18 mg/dL (9-16); Calcium 8.7 mg/dL (8.4-10.2); Carbon Dioxide 23 mmol/L (22-29); Chloride 99 mmol/L (96-108); Creatinine Clr Calc Pharmacy 82.6; Estimated Glomerular Filt Rate > 60; Glucose Random 259 mg/dL (60-115); Potassium 3.7 mmol/L (3.3-5.1); Sodium 132 mmol/L (135-145)
[2021-05-14 08:20] LABS: Glucose, Whole Blood 188 mg/dL (60-115)
[2021-05-14] MEDS: Insulin Glargine,Hum.rec.anlog 100 UNIT/ML 10 ML VIAL 50 UNIT SUBCUT (08:57)
[2021-05-14 09:10] LABS: Glucose, Whole Blood 187 mg/dL (60-115)
[2021-05-14 11:33] LABS: Glucose, Whole Blood 197 mg/dL (60-115)
[2021-05-14] MEDS: Insulin Lispro 100 UNIT/ML 3 ML VIAL SUBCUT ×3 (11:36→20:56)
[2021-05-14 12:42] LABS: Anion Gap 14 (12-20); Blood Urea Nitrogen 18 mg/dL (9-16); Calcium 8.8 mg/dL (8.4-10.2); Carbon Dioxide 23 mmol/L (22-29); Chloride 99 mmol/L (96-108); Creatinine Clr Calc Pharmacy 87.2; Estimated Glomerular Filt Rate > 60; Glucose Random 230 mg/dL (60-115); Sodium 132 mmol/L (135-145)
--- NOTE | 2021-05-14 15:03 | PHA.MEDREC ---
Addendum entered by Binta Jaquez RPh 05/15/21 10:58: [facility] has not filled any medications since 2019. Original Note: Pharmacy Consult ? Medication Reconciliation Pt is from nursing home ([phone] option #3) for the [facility]. The nursing home only has an outdate med intake list from 2019. Pt takes his own medications, they are not given by House staff. The spouse Isaura contact listed is NOT correct. [facility] does not have any current fill history since November 2020 [place] [facility] only open SAT-SAT 830am to 5pm. will need to follow up on Tuesday 05/15.
--- NOTE | 2021-05-14 15:59 | MHC.CM.PN ---
IMM 05/14/21 Male 50 DX DKI Information was gathered from Pt interview and EMR. He lives with his @ [facility]. Unable to contact or [facility] house by phone. Patient states that he is independent with ADLs. He uses a walker, for unsteady gait. HCP on file DP return to home. May need assist w transportation.
[2021-05-14 16:19] LABS: Glucose, Whole Blood 304 mg/dL (60-115)
[2021-05-14 20:22] LABS: COVID-19 Test Negative (Negative); IDNOW Serial# 9DD0AD1C
[2021-05-14 20:31] LABS: Glucose, Whole Blood 361 mg/dL (60-115)
[2021-05-15] VITALS: BP 114/61; PULSE 74; RESP 16; TEMP 36.6; O2SAT 99
[2021-05-15] MEDS: Heparin Sodium,Porcine 5,000 UNIT/ML VIAL 5000 UNIT SUBCUT ×3 (00:51→16:55)
[2021-05-15] MEDS: Lactated Ringers 1,000 ML 125 ML IVCONT ×3 (00:52→16:11)
[2021-05-15 04:00] VITALS: BP 122/82; PULSE 76; RESP 15; TEMP 36.6; O2SAT 98
[2021-05-15 06:00] VITALS: BMI 28.4
[2021-05-15 06:01] LABS: Anion Gap 12 (12-20); Blood Urea Nitrogen 16 mg/dL (9-16); Calcium 8.3 mg/dL (8.4-10.2); Carbon Dioxide 23 mmol/L (22-29); Chloride 103 mmol/L (96-108); Creatinine Clr Calc Pharmacy 112.8; Estimated Glomerular Filt Rate > 60; Glucose Random 194 mg/dL (60-115); Magnesium 1.7 mg/dL (1.6-2.6); Potassium 3.6 mmol/L (3.3-5.1); Sodium 134 mmol/L (135-145)
[2021-05-15 07:15] LABS: Glucose, Whole Blood 185 mg/dL (60-115)
[2021-05-15 07:33] VITALS: BP 122/82; PULSE 73; RESP 13; TEMP 36.4; O2SAT 98
[2021-05-15] MEDS: Insulin Glargine,Hum.rec.anlog 100 UNIT/ML 10 ML VIAL 50 UNIT SUBCUT (08:00)
[2021-05-15] MEDS: Insulin Lispro 100 UNIT/ML 3 ML VIAL SUBCUT ×4 (08:01→20:00)
[2021-05-15] MEDS: Acetaminophen 325 MG TABLET 650 MG PO (10:59)
[2021-05-15] MEDS: cefTRIAXone sodium 1 GM in 0.9 % Sodium Chloride 50 ML IV (10:59)
--- NOTE | 2021-05-15 11:15 | P.PNIM_ITS ---
Subjective Subjective Date of Service: 05/15/21 Interval History: DKA, urine retention, possible penile discharge. Review of Systems Patient had whitish coating at the meatus as well as significant whitish stuff came up out with slightly pressing discharge, has pain No fever chills No Nausea vomiting or abdominal pain Has urinary retention Physical Exam Vital Signs: Vital Signs: Last Vital Signs Temp 97.5 F 05/15/21 07:33 Pulse 73 05/15/21 07:33 Resp 13 05/15/21 07:33 BP 122/82 05/15/21 07:33 Pulse Ox 98 05/15/21 07:33 Body Mass Index 28.4 Physical exam: Appearance: Alert, awake,not in distress.? Eyes: Pupils equal, round and reactive to light.? Sclera nonicteric.? ENT: Pharynx normal.? Moist mucous membranes. [facility]vs: rrr, [id number] , no murmur res: clear to auscultation ,no rhonchii or wheezing abd: no rebound or guarding ,nt, bs present. : whitish coating at the meatus as well as significant whitish stuff came up out with slightly pressing discharge, has pain ext pulses present , no cyanosis ,Gait well balanced well coordinated. neuro: axo3 , nonfocal. Objective Data Active Medications Acetaminophen (Acetaminophen 325 Mg Tablet) 650 mg PO Q6H PRN PRN Reason: Pain, Moderate (Pain Scale 4-6 Last Admin: 05/15/21 10:59 Dose: 650 mg Documented by: SITA Heparin Sodium (Porcine) (Heparin Sodium,Porcine 5,000 Unit/Ml Vial) 5,000 unit SUBCUT Q8H [facility] Last Admin: 05/15/21 08:00 Dose: 5,000 unit Documented by: SITA Lactated Ringer's (Lr) 1,000 mls @ 125 mls/hr IVCONT .Q8H [facility] Last Admin: 05/15/21 08:00 Dose: 125 mls/hr Documented by: SITA Ceftriaxone Sodium 1 gm/ (Sodium Chloride) 50 mls @ 100 mls/hr IV Q24H [facility] Last Admin: 05/15/21 10:59 Dose: 100 mls/hr Documented by: SITA Insulin Glargine (Insulin Glargine,Hum.Rec.Anlog 100 Unit/Ml 10 Ml Vial) 50 unit SUBCUT DAILY [facility] Last Admin: 05/15/21 08:00 Dose: 50 unit Documented by: SITA Insulin Human Lispro (Insulin Lispro 100 Unit/Ml 3 Ml Vial) 0 unit SUBCUT QIDACHS [facility]; Protocol Last Admin: 05/15/21 08:01 Dose: 2 unit Documented by: SITA Labs CBC & Chem 7: 05/14/21 05:18 05/15/21 05:34 Labs: Laboratory Results - last 24 hr 05/14/21 05/14/21 05/14/21 11:29 12:00 16:15 Anion Gap 14 Estim Creat Clear Calc 87.2 Estimated GFR > 60 POC Glucose 197 H 304 H Random Glucose 230 H Calcium 8.8 Magnesium Albumin COVID-19 ([facility]) COVID-19 Clin Com 05/14/21 05/14/21 05/15/21 19:35 20:27 05:34 Anion Gap 12 Estim Creat Clear Calc 112.8 Estimated GFR > 60 POC Glucose 361 H* Random Glucose 194 H Calcium 8.3 L Magnesium 1.7 Albumin 3.0 L COVID-19 ([facility]) Negative COVID-19 Clin Com See Note 05/15/21 07:10 Anion Gap Estim Creat Clear Calc Estimated GFR POC Glucose 185 H Random Glucose Calcium Magnesium Albumin COVID-19 ([facility]) COVID-19 Clin Com Assessment and Plan (1) Type 2 diabetes mellitus with hyperosmolar hyperglycemic state (HHS): Status: Acute (2) Acute kidney injury: Status: Acute Assessment and Plan: 1. Uncontrolled diabetes: DKA/HHS-seems to be resolved with IV hydration, insulin. Fingersticks seems improving Diabetic diet Continue current insulin Regimen. 2.htn: Continue lisinopril, amlodipine, hydralazine. 3. HLP: Continue fenofibrate/ezetimibe . 4. HYPOTHYROID: Continue levothyroxine 5.: Penile discharge/urinary retention: Significant discharge came with little pressing around the penis by urologist. Urology evaluation added Added UA, gonorrhea and chlamydia and Gram stain culture Added ceftriaxone Id eval. 6. kristin: Seems to be improved with hydration. staff is aware Quality Stroke Does the patient have a stroke diagnosis?: No VTE Prior VTE?: No VTE Risk Level:: Medical - low VTE Device Contraindication: Treatment Not Indicated VTE Drug Contraindication: N/A - Med Ordered
[2021-05-15 11:20] LABS: Glucose, Whole Blood 189 mg/dL (60-115)
[2021-05-15 11:48] LABS: Appearance Urine CLEAR; Color Urine YELLOW; Glucose Urine UA >=1000 MG/DL (NEG); Leukocyte Esterase Urine NEG (NEG); Nitrite Urine NEG (NEG); Urine Blood NEG (NEG); Urine Ketones 15 MG/DL (NEG); Urine Protein NEG (NEG-TRACE)
[2021-05-15 12:00] VITALS: BP 131/77; PULSE 99; RESP 22; TEMP 36.7; O2SAT 98
[2021-05-15 12:01] LABS: WBC Urine 0-2 /HPF (0-4)
[2021-05-15 12:02] LABS: RBC Urine 0-2 /HPF (0); Squamous Epithelial Cell Urine TRACE /LPF
--- NOTE | 2021-05-15 15:06 | MHC.CM.PN ---
Addendum entered by Ni Valdivia 05/16/21 16:00: Spoke with pt via solar sales specialist to clarify living situation: pt has been a resident of the [facility] x 6 years. This is a sober house for men only. He has had T2DM for years and administers his insulin and tests his bg independently with working equipment. He was vaccinated with a 2 part Pfizer series in July 2020 and does not have a HCP. I don't need one right now was his reply despite explanation of it's importance. Per discussion with MD, pt may require a STR for dm management and penile infection. Broad referrals placed: no offers d/t lack of substantial skill level. Pt very concerned about needing STR as his goal is for a return to [facility]. Broad [facility] referrals placed for education and ? urological care. No acceptance as of yet d/t shortages within [facility] or non payor contracted agenies. CM to continue following for VNA. Call placed to Eula Jalloh of the [facility] ([phone]) she is the annual greenhouse manager and knows Mehul very well. She states he is near and dear to their hearts and that he is very well loved and cared for there. They will work with Mehul to ensure he is successful with his dm management. Although they cannot offer any skilled care, they can assist with reminders and ensure he follows any diet instructions. [facility] is asking for a negative COVID prior to pt return. Updated MD on plan for d/c. Original Note: Pt continues receiving care for DKA in ICU: Per review of EMR, pt resides at the [facility] : conflicting information re: cohabitation with his as the [facility] is a men's sober living environment: Call placed to [facility]: message left requesting information on what is needed for a return: i.e. COVID testing, med list, etc. Call placed to pt's reported spouse, Isaura. The number listed belongs to Isaura's sister who states Isaura is receiving inpatient care for her mental health issues at [facility] and will be unavailable for the next 1-2 weeks. Will await callback from [facility] - pt may need [facility] [place] [place] shuttle for transportation back.
[2021-05-15 15:26] LABS: CT PCR NOT DETECTED (Not Detect.); NG PCR NOT DETECTED (Not Detect.)
[2021-05-15 16:00] VITALS: BP 142/82; PULSE 91; RESP 18; TEMP 36.8; O2SAT 98
[2021-05-15 16:31] LABS: Glucose, Whole Blood 235 mg/dL (60-115)
[2021-05-15 19:49] VITALS: BP 146/88; PULSE 91; RESP 26; TEMP 37.1; O2SAT 98
[2021-05-15 19:56] LABS: Glucose, Whole Blood 247 mg/dL (60-115)
[2021-05-16] VITALS (7 sets, daily range): BP systolic 124–152; BP diastolic 72–94; PULSE 76–98; RESP 15–25; TEMP 36.6–36.9; O2SAT 98–100; BMI 28.5
[2021-05-16] MEDS: Lactated Ringers 1,000 ML 125 ML IVCONT ×3 (00:01→17:02)
[2021-05-16] MEDS: Heparin Sodium,Porcine 5,000 UNIT/ML VIAL 5000 UNIT SUBCUT ×3 (00:02→17:01)
[2021-05-16 05:45] LABS: PLT CLUMP 1
[2021-05-16 05:47] LABS: Hematocrit 35.1 % (42.0-52.0); Hemoglobin 12.5 g/dl (14.0-18.0); Mean Corpuscular HGB Conc 35.6 g/dl (31.0-36.0); Mean Corpuscular Hemoglobin 32.1 pg (27.0-33.0); Mean Corpuscular Volume 90.2 fL (80.0-98.0); Mean Platelet Volume 10.3 fL (9.4-12.4); Platelet Count 144 X10*3/uL (160-400); Red Blood Count 3.89 X10*6/uL (4.60-5.80); Red Cell Distribution Width 12.4 % (11.0-16.0)
[2021-05-16 05:51] LABS: HIV AB/AG Nonreactive (Nonreactive); HIV Num 1 0.07 S/CO (0.00-0.99)
[2021-05-16 06:00] LABS: Anion Gap 11 (12-20); Blood Urea Nitrogen 9 mg/dL (9-16); Calcium 8.2 mg/dL (8.4-10.2); Carbon Dioxide 24 mmol/L (22-29); Chloride 106 mmol/L (96-108); Creatinine Clr Calc Pharmacy 145.3; Estimated Glomerular Filt Rate > 60; Glucose Random 160 mg/dL (60-115); Potassium 3.5 mmol/L (3.3-5.1); Sodium 137 mmol/L (135-145)
[2021-05-16 07:28] LABS: Glucose, Whole Blood 151 mg/dL (60-115)
[2021-05-16] MEDS: Insulin Glargine,Hum.rec.anlog 100 UNIT/ML 10 ML VIAL 50 UNIT SUBCUT (08:11)
[2021-05-16] MEDS: Insulin Lispro 100 UNIT/ML 3 ML VIAL SUBCUT ×4 (08:12→21:10)
[2021-05-16] MEDS: cefTRIAXone sodium 1 GM in 0.9 % Sodium Chloride 50 ML IV (10:02)
[2021-05-16 11:22] LABS: Glucose, Whole Blood 205 mg/dL (60-115)
--- NOTE | 2021-05-16 12:32 | W.PM.IDCN ---
History of Present Illness Data of Consult Service Date: 05/16/21 Requesting physician: Fawn Messina Primary Care Provider: Unknown Physician HPI Reason for consult: hyperglycemia ?infection He presents with complaint of hyperglycemia. He has blood glucose 200. He has no fever or chills. He has penile redness and swelling He has culture taken shows multiple organisms and yeast He is resident of [facility] Review of Systems Review of Systems: Yes all other systems are reviewed and are negative [facility] Past Medical History Medical History (Updated 05/16/21 @ 12:38 by Kristen Fraser MD) Autoimmune thyroiditis Cataracts, both eyes CHF (congestive heart failure) Cognitive developmental delay Diabetes Edema Essential hypertension HTN (hypertension) Hyperlipidemia Hyperlipidemia LDL goal <100 Hypothyroid Infection of penis Obesity due to excess calories Proteinuria Type 2 diabetes mellitus with hyperglycemia, with long-term current use of insulin Type 2 diabetes mellitus with other diabetic kidney complication Family History Family History Father HTN (hypertension) Mother Diabetes mellitus Maternal Grandmother Diabetes mellitus Family history: reviewed and not pertinent Surgical History Surgical History Hx of cataract surgery Hx of removal of cyst Social History Social History Household Members: Other Household Members Other:: [facility] Housing: Other Housing Other:: [facility] Do you presently have visiting nurse or other home services: No Alcohol intake: never Patient Tobacco Use Status: Never used Tobacco e-Cigarette/Vaping Use: Never Used Use of substances other than those prescribed or required for medical reasons: No Substance Use Type: Caffiene Substance Use Frequency: Daily Currently Displaying Signs/Symptoms of Drug Intoxication Withdrawal: No Any prior treatment program specific to substance use: No Have you been hit, kicked, punched, or otherwise hurt by someone within the past year? If so, by whom?: No Do you feel safe in your current relationship?: No Current Relationship Is there a partner from a previous relationship who is making you feel unsafe now?: No Are you made to feel afraid or neglected: No Spiritual Healthcare Practices: n/a Caodaism Healthcare Practices: attends temple; muslim Cultural Healthcare Practices: n/a Advance Directives: No Advance Directives Information Provided: No Advance Directives on File: No Do you have thoughts of harming others: None Do you have a plan to hurt others: No Plan Recently lost weight without trying: No Eating poorly because of decreased appetite: No Nutrition Risks: No Nutritional Risk Poor oral hygiene: No service: No Current occupational status: disabled Meds Allergies Allergy/AdvReac Type Severity Reaction Status Date / Time atorvastatin [ATORVASTATIN] Allergy Unknown skin Verified 12/06/20 09:22 eruption Active Medications: Current Medications Acetaminophen (Acetaminophen 325 Mg Tablet) 650 mg PO Q6H PRN PRN Reason: Pain, Moderate (Pain Scale 4-6 Last Admin: 05/15/21 10:59 Dose: 650 mg Documented by: Heparin Sodium (Porcine) (Heparin Sodium,Porcine 5,000 Unit/Ml Vial) 5,000 unit SUBCUT Q8H [facility] Last Admin: 05/16/21 08:12 Dose: 5,000 unit Documented by: Lactated Ringer's (Lr) 1,000 mls @ 125 mls/hr IVCONT .Q8H [facility] Last Admin: 05/16/21 08:08 Dose: 125 mls/hr Documented by: Ceftriaxone Sodium 1 gm/ (Sodium Chloride) 50 mls @ 100 mls/hr IV Q24H [facility] Last Infusion: 05/16/21 10:41 Dose: Infused Documented by: Insulin Glargine (Insulin Glargine,Hum.Rec.Anlog 100 Unit/Ml 10 Ml Vial) 50 unit SUBCUT DAILY [facility] Last Admin: 05/16/21 08:11 Dose: 50 unit Documented by: Insulin Human Lispro (Insulin Lispro 100 Unit/Ml 3 Ml Vial) 0 unit SUBCUT QIDACHS [facility]; Protocol Last Admin: 05/16/21 08:12 Dose: 2 unit Documented by: Home Medications Medication Instructions Recorded Confirmed Last Taken Type amlodipine 10 mg tablet 10 mg PO DAILY 04/22/20 05/14/21 05/13/21 History ezetimibe 10 mg tablet (Zetia) 10 mg PO DAILY 04/22/20 05/14/21 05/12/21 History fenofibrate 54 mg tablet 54 mg PO DAILY 04/22/20 05/14/21 05/12/21 History hydrochlorothiazide 25 mg tablet 25 mg PO DAILY 04/22/20 05/14/21 05/12/21 History simvastatin 40 mg tablet 40 mg PO DAILY 04/22/20 05/14/21 05/13/21 History Physical Exam Vital Signs: Vital Signs: Last Vital Signs Temp 98.2 F 05/16/21 12:00 Pulse 87 05/16/21 12:00 Resp 18 05/16/21 12:00 BP 125/72 05/16/21 12:00 Pulse Ox 100 05/16/21 12:00 Body Mass Index 28.5 Const: General: cooperative Eyes: General: appearance normal, both eyes and all related structures Pupils: Equal, round and reactive pupils present Resp: Effort & Inspection: normal respiratory effort Cardio: Rate: regular rate Rhythm: regular rhythm GI: Palpation (GI): Soft to palpation and nontender : Other: swelling penis condyloma Scrotum: scrotum normal and erythematous Skin: General skin exam: no rashes or lesions noted Neuro: Cranial nerves: Yes Equal, round and reactive pupils present Results Labs CBC & Chem 7: 05/16/21 05:20 05/16/21 05:20 Labs: Short CBC 05/16/21 Range/Units 05:20 WBC 5.0 (4.8-10.8) X10*3/uL Hgb 12.5 L (14.0-18.0) g/dl Hct 35.1 L (42.0-52.0) % Plt Count 144 L (160-400) X10*3/uL BMP 05/16/21 05:20 Sodium 137 Potassium 3.5 Chloride 106 Carbon Dioxide 24 BUN 9 Creatinine 0.72 Calcium 8.2 L Microbiology Microbiology Results: Microbiology 05/15/21 10:13 Penis Gram Stain - Final 05/15/21 10:13 Penis Routine Culture - Preliminary Culture in progress. Assessment and Plan (1) Infection of penis: Status: Acute He has possible gram negative and gram positive Continue Ceftiaxone He has condyloma so concern over STD exposure Continue Ceftriaxone Check HIV Check syphilis
[2021-05-16 16:19] LABS: Glucose, Whole Blood 261 mg/dL (60-115)
[2021-05-16 20:15] LABS: Glucose, Whole Blood 268 mg/dL (60-115)
[2021-05-16] MEDS: hydroCHLOROthiazide 25 MG TABLET PO (21:10)
[2021-05-16] MEDS: Levothyroxine Sodium 112 MCG, Levothyroxine Sodium 25 MCG 137 MCG PO (22:12)
[2021-05-17] VITALS: BP 127/82; PULSE 80; RESP 16; TEMP 36.8; O2SAT 98
[2021-05-17] MEDS: Heparin Sodium,Porcine 5,000 UNIT/ML VIAL 5000 UNIT SUBCUT ×2 (01:57→07:47)
[2021-05-17 03:25] VITALS: BP 128/79; PULSE 80; RESP 18; TEMP 36.2; O2SAT 99
[2021-05-17 03:46] LABS: Syphilis Screen Nonreactive (Nonreactive)
[2021-05-17 04:21] LABS: HIV AB/AG Nonreactive (Nonreactive); HIV Num 1 0.06 S/CO (0.00-0.99)
[2021-05-17] MEDS: Levothyroxine Sodium 112 MCG, Levothyroxine Sodium 25 MCG 137 MCG PO (05:57)
[2021-05-17 05:59] VITALS: BMI 28.8
[2021-05-17 07:27] LABS: Glucose, Whole Blood 220 mg/dL (60-115)
[2021-05-17 07:42] VITALS: BP 140/88; PULSE 78; RESP 16; TEMP 36.5; O2SAT 98
[2021-05-17] MEDS: Insulin Glargine,Hum.rec.anlog 100 UNIT/ML 10 ML VIAL 50 UNIT SUBCUT (07:46)
[2021-05-17] MEDS: hydroCHLOROthiazide 25 MG TABLET PO (07:47)
[2021-05-17] MEDS: Insulin Lispro 100 UNIT/ML 3 ML VIAL SUBCUT ×2 (07:47→11:49)
[2021-05-17 11:07] LABS: Glucose, Whole Blood 271 mg/dL (60-115)
[2021-05-17 11:28] VITALS: BP 116/81; PULSE 86; RESP 18; TEMP 36.2; O2SAT 100
[2021-05-17] MEDS: cefTRIAXone sodium 1 GM in 0.9 % Sodium Chloride 50 ML IV (11:49)
--- NOTE | 2021-05-17 12:07 | PM.DS ---
DS: Providers Provider Date of Service: 05/17/21 Date of admission: 05/14/21 00:29 Primary care physician: Unknown Physician Consults: 05/15/21 09:37 Consult to Urology Routine Consulting Provider: Logan Chua Reason for consultation: urinary retention, has penile discharge and white coating Has provider been notified: No 05/15/21 09:39 Consult to Infectious Diseases Routine Consulting Provider: Kristen Fraser Reason for consultation: penile discharge /white coating blocking meatus Has provider been notified: No DS: Diagnosis Discharge Diagnosis (1) Infection of penis: Status: Acute DS: Summary Hospital Course Hospital Course: Chief Complaint: High blood glucose The patient is a 49-year-old primarily Setswana-speaking male with a past medical history of diabetes mellitus type 2, cognitive developmental delay, congestive heart failure, hypertension, autoimmune thyroiditis, hypothyroid, hyperlipidemia who presents to the emergency room via ambulance from [facility] with high blood sugars.? Patient states his sugars were reading high, despite giving himself his nighttime 80 units of Tresiba. ?Patient is asymptomatic since arrival. Vital signs are stable. ?Laboratory data significant for sodium of 115, potassium 5.5, serum bicarb 18, anion gap 26, BUN 28, creatinine 2.06, random glucose 1086. Hospital course: Patient was admitted to the ICU for DKA and treated with IVF and insulin per ICU insulin protocol with resolution of DKA with resolution of DKA by the next day, he has JJ with initial creatinine of 2.09 and has resolved with IVF and present creatine 0.75, it is unclear what may have precipitated it but likely a penile infection with strep. Patient did voice understanding and compentency on how he's supposed to take insulin and additionally will be sent with [facility]NA.. There will be no change to insulin, I will prescribed Ceftin for penile infection with strep, he has been on Ceftriaxone here. He was seen by ID and Urology for the penile infection with copius discharge and associated with urinary retention, he had carmona for a day and continues to void properly without retention. Time Spent with Patient Time attestation: Total time spent providing and/or coordinating discharge services: Discharge coordination time: Greater than 30 minutes Quality: Stroke Does the patient have a stroke diagnosis?: No Physical Exam Vital Signs: Vital Signs: Last Vital Signs Temp 97.2 F 05/17/21 11:28 Pulse 86 05/17/21 11:28 Resp 18 05/17/21 11:28 BP 116/81 05/17/21 11:28 Pulse Ox 100 05/17/21 11:28 Body Mass Index 28.8 DS: Data Data Completed and Pending Labs on day of discharge: Laboratory Results - last 24 hr 05/15/21 05/16/21 05/16/21 Unknown 12:08 12:08 POC Glucose T.pallidum Ab (EIA) Nonreactive HIV 1&2 Ab/P24 Ag 4thGn Nonreactive Ref Lab Test Result Cancelled 05/16/21 05/16/21 05/17/21 16:16 20:06 07:19 POC Glucose 261 H 268 H 220 H T.pallidum Ab (EIA) HIV 1&2 Ab/P24 Ag 4thGn Ref Lab Test Result 05/17/21 10:54 POC Glucose 271 H T.pallidum Ab (EIA) HIV 1&2 Ab/P24 Ag 4thGn Ref Lab Test Result Discharge Plan Discharge Anticipated Discharge Date/Time: 05/17/21 12:06 Patient Disposition: Home, Self-Care Discharge Diagnosis: DKA , hyperkalemia, JJ. Referrals: [facility] [Other] - 1 Week Physician,Unknown J [Primary Care Provider] - 1 Week Discharge Medications: New cefuroxime axetil 500 mg tablet 500 mg PO BID 10 Days Qty: 20 RF: 0 Continued metformin 500 mg tablet 500 mg PO BID Qty: 180 RF: 0 Trulicity 1.5 mg/0.5 mL pen injector 1.5 mg subcut QWEEK 28 Days Qty: 2 RF: 2 escitalopram oxalate 10 mg tablet 10 mg PO DAILY 90 Days Qty: 90 RF: 3 levothyroxine 137 mcg tablet 137 mcg PO DAILY 90 Days Qty: 90 RF: 2 lisinopril 10 mg tablet 10 mg PO DAILY 90 Days Qty: 90 RF: 3 (DME) pen needle, diabetic [BD Ultra-Fine Adelina Pen Needle] 32 gauge x 5/32 needle See Rx Instructions .ROUTE .MEDSUPPLY Qty: 360 RF: 3 (DME) FreeStyle Precision Gama Strips Strip See Rx Instructions .ROUTE .MEDSUPPLY Qty: 50 RF: 11 simvastatin 40 mg tablet 40 mg PO DAILY RF: 0 ezetimibe [Zetia] 10 mg tablet 10 mg PO DAILY RF: 0 hydrochlorothiazide 25 mg tablet 25 mg PO DAILY RF: 0 amlodipine 10 mg tablet 10 mg PO DAILY RF: 0 fenofibrate 54 mg tablet 54 mg PO DAILY RF: 0 insulin aspart U-100 [Novolog Flexpen U-100 Insulin] 100 unit/mL (3 mL) insulin pen 20 unit subcut TID 30 Days Qty: 18 RF: 2 Tresiba FlexTouch U-200 200 unit/mL (3 mL) insulin pen 75 unit subcut DAILY 30 Days Qty: 18 RF: 2 (DME) FreeStyle Leonel 14 Day [place] Misc See Rx Instructions .ROUTE .MEDSUPPLY Qty: 1 RF: 0 Discharge Orders: Discharge Order (Routine); Ordered 05/17/21 Ordered By: Yony Barber Diet: advance to usual diet, diabetic diet and low fat, low cholesterol Activity on Discharge: As tolerated Stand Alone Forms: Patient Portal Discharge page Care Plan Goals: Patient was admitted due to uncontrolled diabetes type 1--treated for DKA versus HHS, jj in ICU Setting: Given IV insulin and hydration: Seems to be improved, seems like above episode probably related to insulin and diet noncompliance . In addition had hyperkalemia probably related to DKA Which is also improved. Encouraged to use his insulin regimen and advised to follow diabetic diet. Patient is to follow-up with with his PCP and endocrinology out patiently. Take Ceftin as recommended for penile infection Health Concerns: As above. Plan of Treatment: As above. Assessment: As above.
--- NOTE | 2021-05-17 12:13 | MHC.CM.PN ---
pt dcd back to [facility] where has lived for yhe past 2 years [facility] 2[facility]00 [facility], will see pt on saturday
== END 2021-05-17 14:31 | disposition home or self-care (01) | DRG 606 ==
LOC: HO.ED 05-14 00:25 → HO.EDOVER 05-14 00:36 → HO.ICU 05-14 01:52 → HO.IMC 05-16 16:13
PROVIDERS: Internal Medicine; Internal Medicine Pulmonary Disease; Admitting Provider Registered Nurse Community Health; Emergency Provider Emergency Medicine; Visit Provider Internal Medicine
DX: A63.0 Anogenital (venereal) warts (principal); E10.10 Type 1 diabetes mellitus with ketoacidosis without coma; N17.9 Acute kidney failure, unspecified; E87.0 Hyperosmolality and hypernatremia; E87.5 Hyperkalemia; E78.5 Hyperlipidemia, unspecified; R33.9 Retention of urine, unspecified; E03.9 Hypothyroidism, unspecified; Z20.822 Contact with and (suspected) exposure to COVID-19; Z79.890 Hormone replacement therapy; Z79.899 Other long term (current) drug therapy
CPT/HCPCS: 36415; 80048; 80076; 81001; 82009; 82040; 82803; 82947; 83690; 83735; 84100; 85025; 85027; 86780; 87071; 87147; 87205; 87389; 87491; 87591; 87635; 93005; 99285; C1758; J0696

== ENCOUNTER 2021-05-23 15:23 | Emergency (ER) | payer OTHER, SELFPAY ==
--- NOTE | ~2021-05-23 | XR_ITS ---
EXAMINATION: XR CHEST CLINICAL INFORMATION: Fatigue, shortness of breath COMPARISON: Chest x-ray on 03/26/2020 TECHNIQUE: Frontal view of the chest was obtained. FINDINGS: No significant abnormality is noted involving the heart, lungs, mediastinum, bony thorax or soft tissues. XR/XR chest 1V IMPRESSION: Unremarkable examination.
[2021-05-23 15:28] VITALS: BP 128/69; PULSE 82; RESP 23; TEMP 36.4; O2SAT 100; BMI 35.4
[2021-05-23 15:41] VITALS: BP 128/69; PULSE 84; RESP 22; TEMP 36.4; O2SAT 100
[2021-05-23 15:46] LABS: Glucose, Whole Blood 76 mg/dL (60-115)
--- NOTE | 2021-05-23 16:26 | ECG_ITS ---
Test Reason : Sepsis Blood Pressure : / mmHG Vent. Rate : 084 BPM Atrial Rate : 084 BPM P-R Int : 164 ms QRS Dur : 086 ms QT Int : 382 ms P-R-T Axes : 043 -15 026 degrees QTc Int : 451 ms Normal sinus rhythm RSR' or QR pattern in V1 suggests right ventricular conduction delay Leftward axis Otherwise normal EKG When compared with ECG of 13-MAY-2021 21:38, No significant change was found Referred By: Uzair Licona Electronically Signed By:MARCUS MARCELINO
--- NOTE | 2021-05-23 16:38 | ED_ITS ---
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 This information was obtained from ED nursing and was given DD nursing by EMS. Patient states that his blood sugar was high but he believes that it was 219. Apparently was given some insulin at his intermediate to bring down his sugar and then the patient states that he became sweaty lightheaded, dizzy and very tired. On presentation to the emergency department he was awake and alert and did not appear to be altered. Paramedics found the patient has 20 fair glucose to be 78, this was repeated in the emergency department was 76. Patient was recently hospitalized on 05/13/2021 for hyperosmolar hyperglycemic syndrome versus DKA. He was also found to have urinary struck cottrell and a penile infection with Streptococcus. He was treated with IV insulin, ceftriaxone and then discharged on Ceftin. Related Data Previous Rx's Medication Instructions Recorded pen needle, diabetic 32 gauge x #360 ea 05/06/20 (BD Ultra-Fine Adelina Pen Needle) levothyroxine 137 mcg tablet 137 mcg PO DAILY 90 Days #90 tab 05/17/20 lisinopril 10 mg tablet 10 mg PO DAILY 90 Days #90 tab 05/17/20 metformin 500 mg tablet 500 mg PO BID #180 tab 08/17/20 blood sugar diagnostic (FreeStyle #50 ea 11/08/20 Precision Gama Strips) insulin aspart U-100 100 unit/mL 20 unit (0.2 mL) SUBCUT TID 30 11/22/20 (3 mL) subcutaneous pen (Novolog Days #18 ml Flexpen U-100 Insulin aspart) insulin degludec 200 unit/mL (3 75 unit (0.375 mL) SUBCUT DAILY 30 11/22/20 mL) subcutaneous pen (Tresiba Days #18 ml FlexTouch U-200 insulin) flash glucose scanning reader #1 ea 12/06/20 (FreeStyle Leonel 14 Day [place]) amlodipine 10 mg tablet 10 mg PO DAILY 30 Days #30 tab 05/17/21 cefuroxime axetil 500 mg tablet 500 mg PO BID 10 Days #20 tab 05/17/21 dulaglutide 1.5 mg/0.5 mL 1.5 mg (0.5 mL) SUBCUT QWEEK 28 05/17/21 subcutaneous pen injector Days #2 ml (Trulicity) fenofibrate 54 mg tablet 54 mg PO DAILY 90 Days #90 tab 05/17/21 hydrochlorothiazide 25 mg tablet 25 mg PO DAILY 30 Days #30 tab 05/17/21 escitalopram oxalate 10 mg tablet 10 mg PO DAILY 90 Days #90 tab 05/22/21 ezetimibe 10 mg tablet (Zetia) 10 mg PO DAILY 90 Days #90 tab 05/22/21 simvastatin 40 mg tablet 40 mg PO DAILY 90 Days #90 tab 05/22/21 Allergies Allergy/AdvReac Type Severity Reaction Status Date / Time atorvastatin [ATORVASTATIN] Allergy Unknown skin Verified 12/06/20 09:22 eruption Review of Systems Review of Systems: Yes all other systems are reviewed and are negative PMFSH Past Medical History Medical History Autoimmune thyroiditis Cataracts, both eyes CHF (congestive heart failure) Cognitive developmental delay Diabetes Edema Essential hypertension HTN (hypertension) Hyperlipidemia Hyperlipidemia LDL goal <100 Hypothyroid Infection of penis Obesity due to excess calories Proteinuria Type 2 diabetes mellitus with hyperglycemia, with long-term current use of insulin Type 2 diabetes mellitus with other diabetic kidney complication Surgical History Hx of cataract surgery Hx of removal of cyst Family History Family History Father HTN (hypertension) Mother Diabetes mellitus Maternal Grandmother Diabetes mellitus Social History Social History Household Members: Other Household Members Other:: intermediate, [place] Housing: Other Housing Other:: intermediate, [place] Do you presently have visiting nurse or other home services: No Alcohol intake: never Patient Tobacco Use Status: Never used Tobacco e-Cigarette/Vaping Use: Never Used Substance Use Type: Caffiene Advance Directives: No Advance Directives Information Provided: No service: No Current occupational status: disabled Physical Exam Vital Signs: Vital Signs: Last Vital Signs Temp 98.1 F 05/23/21 18:37 Pulse 85 05/23/21 18:37 Resp 18 05/23/21 18:37 BP 98/57 L 05/23/21 18:37 Pulse Ox 100 05/23/21 18:37 Body Mass Index 35.4 Const: General: cooperative and no acute distress Orientation/consciousness: oriented to person and oriented to place Limitations: no limitations HENMT: Head: Yes normal to inspection, Yes normocephalic and Yes atraumatic Ears: external ears normal General nose exam: Normal external nose present Face and sinus: Yes normal facial exam Mouth: Normal oral and palatal mucosa present Throat: Yes posterior oropharynx normal Eyes: General: appearance normal, both eyes and all related structures Pupils: Equal, round and reactive pupils present Neck: Neck: Yes normal visual inspection, Yes no lymphadenopathy, Yes trachea midline and Yes supple Chest: Chest palpation & inspection: normal inspection of the chest and normal palpation of entire chest wall Resp: Effort & Inspection: normal respiratory effort and able to speak in comp lete sentences Auscultation: clear to auscultation bilaterally Cardio: Rate: regular rate Rhythm: regular rhythm Heart sounds: S1 normal heart sound present, S2 normal heart sound present and no murmurs GI: Inspection: Yes normal to inspection Palpation (GI): Soft to palpation, nontender and no guarding Auscultation: normal bowel sounds : General: Yes no CVA tenderness Penis: uncircumcised and paraphimosis Scrotum: scrotum normal Testes: Testes normal Back/Spine/Pelvis: Back: no CVA tenderness Skin: General skin exam: no rashes or lesions noted Neuro: General: oriented to person and oriented to place Cranial nerves: Yes CN's II-XII intact bilaterally and Yes Equal, round and reactive pupils present Cognition (Neuro): normal cognition Motor exam (neuro): 5/5 motor strength present throughout Extrem: General: Yes normal to inspection Psych: Appearance: grossly normal Affect: normal affect Attitude: coope rative Course Course Course Narrative: 50-year-old male sent to the emergency department from his intermediate for evaluation of an elevated glucose possibly as high as 500. Patient was given insulin in his intermediate, unknown amount. The patient then may have become hypoglycemic based on his symptoms of lethargy and diaphoresis. Here in the emergency department however he is awake and alert and his point of care glucose was 76. His exam was unremarkable except for paraphimosis. Given his recent admission for DKA and a penile infection, I did order a CBC, CMP, lactate, blood cultures x2. We will monitor his glucose as well. 184: Laboratory evaluation: CBC was normal. CMP was normal. Urinalysis was negative. Lactate was elevated 2.5. ETOH was negative. COVID-19, influenza and RSV were negative. At this time, I do not think patient has an acute infectious process is the cause of his hyperglycemia. The patient can be discharged back to his intermediate. We will give him some food to eat prior to being discharged so that he does not become hypoglycemic. Medical Decision Making Lab Data Result diagrams: 05/23/21 17:51 05/23/21 17:51 Labs: Lab Results 05/23/21 05/23/21 05/23/21 Range/Units 15:35 16:52 16:52 WBC (4.8-10.8) X10*3/uL RBC (4.60-5.80) X10*6/uL Hgb (14.0-18.0) g/dl Hct (42.0-52.0) % MCV (80.0-98.0) fL MCH (27.0-33.0) pg MCHC (31.0-36.0) g/dl RDW (11.0-16.0) % Plt Count (160-400) X10*3/uL MPV (9.4-12.4) fL Immature Gran % (Auto) (0.0-0.4) % Neut % (Auto) (45-73) % Lymph % (Auto) (20-40) % Mcdonald % (Auto) (2-11) % Eos % (Auto) (0-4) % Baso % (Auto) (0-2) % Lymph # (Auto) (1.2-4.9) X10*3/uL Mcdonald # (Auto) (0.1-1.2) X10*3/uL Eos # (Auto) (0.0-0.4) X10*3/uL Baso # (Auto) (0.0-0.2) X10*3/uL Abs Immat Gran (auto) (0.00-0.03) X10*3/uL Absolute Neuts (auto) (2.0-8.3) x10*3/uL Absolute Nucleated RBC (0.0-0.012) X10*3/uL Nucleated RBC % (auto) (0.0-0.2) /100WBC Sodium (135-145) mmol/L Potassium (3.3-5.1) mmol/L Chloride (96-108) mmol/L Carbon Dioxide (22-29) mmol/L Anion Gap (12-20) BUN (9-16) mg/dL Creatinine (0.5-1.4) mg/dL Estim Creat Clear Calc Estimated GFR POC Glucose 76 (60-115) mg/dL Random Glucose (60-115) mg/dL Lactic Acid (0.5-2.0) mmol/L Calcium (8.4-10.2) mg/dL Total Bilirubin (0.0-1.0) mg/dL AST (5-37) U/L ALT (0-40) U/L Alkaline Phosphatase (39-117) U/L Troponin I High Sens (<3.5-35.0) ng/L B-Natriuretic Peptide (<100) pg/mL Total Protein (6.5-8.0) g/dL Albumin (3.5-5.0) g/dL Lipase (8-78) U/L Urine Color YELLOW Urine Appearance HAZY Urine pH 6.0 (5.0-8.0) Ur Specific [place] <= 1.005 (1.005-1.025) Urine Protein NEG (NEG-TRACE) MG/DL Urine Glucose (UA) NEG (NEG) MG/DL Urine Ketones NEG (NEG) MG/DL Urine Blood NEG (NEG) Urine Nitrite NEG (NEG) Ur Leukocyte Esterase NEG (NEG) Ethyl Alcohol mg/dL Influenza Type A (PCR) NEGATIVE (Negative) Influenza Type B (PCR) NEGATIVE (Negative) RSV RNA Qual (PCR) NEGATIVE (Negative) SARS-CoV-2 RNA (RT-PCR) NEGATIVE (Negative) 05/23/21 05/23/21 05/23/21 Range/Units 17:51 17:51 17:51 WBC 10.1 (4.8-10.8) X10*3/uL RBC 4.07 L (4.60-5.80) X10*6/uL Hgb 13.2 L (14.0-18.0) g/dl Hct 38.2 L (42.0-52.0) % MCV 93.9 (80.0-98.0) fL MCH 32.4 (27.0-33.0) pg MCHC 34.6 (31.0-36.0) g/dl RDW 13.0 (11.0-16.0) % Plt Count 216 D (160-400) X10*3/uL MPV 9.6 (9.4-12.4) fL Immature Gran % (Auto) 0.5 H (0.0-0.4) % Neut % (Auto) 74.4 H (45-73) % Lymph % (Auto) 14.6 L (20-40) % Mcdonald % (Auto) 9.5 (2-11) % Eos % (Auto) 0.7 (0-4) % Baso % (Auto) 0.3 (0-2) % Lymph # (Auto) 1.5 (1.2-4.9) X10*3/uL Mcdonald # (Auto) 1.0 (0.1-1.2) X10*3/uL Eos # (Auto) 0.1 (0.0-0.4) X10*3/uL Baso # (Auto) 0.0 (0.0-0.2) X10*3/uL Abs Immat Gran (auto) 0.05 H (0.00-0.03) X10*3/uL Absolute Neuts (auto) 7.5 (2.0-8.3) x10*3/uL Absolute Nucleated RBC 0.000 (0.0-0.012) X10*3/uL Nucleated RBC % (auto) 0.0 (0.0-0.2) /100WBC Sodium 138 (135-145) mmol/L Potassium 4.1 (3.3-5.1) mmol/L Chloride 102 (96-108) mmol/L Carbon Dioxide 27 (22-29) mmol/L Anion Gap 13 (12-20) BUN 20 H D (9-16) mg/dL Creatinine 0.85 (0.5-1.4) mg/dL Estim Creat Clear Calc 125.0 Estimated GFR > 60 POC Glucose (60-115) mg/dL Random Glucose 84 D (60-115) mg/dL Lactic Acid 2.5 H* (0.5-2.0) mmol/L Calcium 9.4 D (8.4-10.2) mg/dL Total Bilirubin 0.4 (0.0-1.0) mg/dL AST 22 (5-37) U/L ALT 28 (0-40) U/L Alkaline Phosphatase 60 D (39-117) U/L Troponin I High Sens (<3.5-35.0) ng/L B-Natriuretic Peptide (<100) pg/mL Total Protein 6.5 (6.5-8.0) g/dL Albumin 3.6 (3.5-5.0) g/dL Lipase 53 (8-78) U/L Urine Color Urine Appearance Urine pH (5.0-8.0) Ur Specific [place] (1.005-1.025) Urine Protein (NEG-TRACE) MG/DL Urine Glucose (UA) (NEG) MG/DL Urine Ketones (NEG) MG/DL Urine Blood (NEG) Urine Nitrite (NEG) Ur Leukocyte Esterase (NEG) Ethyl Alcohol mg/dL Influenza Type A (PCR) (Negative) Influenza Type B (PCR) (Negative) RSV RNA Qual (PCR) (Negative) SARS-CoV-2 RNA (RT-PCR) (Negative) 05/23/21 05/23/21 Range/Units 17:51 17:51 WBC (4.8-10.8) X10*3/uL RBC (4.60-5.80) X10*6/uL Hgb (14.0-18.0) g/dl Hct (42.0-52.0) % MCV (80.0-98.0) fL MCH (27.0-33.0) pg MCHC (31.0-36.0) g/dl RDW (11.0-16.0) % Plt Count (160-400) X10*3/uL MPV (9.4-12.4) fL Immature Gran % (Auto) (0.0-0.4) % Neut % (Auto) (45-73) % Lymph % (Auto) (20-40) % Mcdonald % (Auto) (2-11) % Eos % (Auto) (0-4) % Baso % (Auto) (0-2) % Lymph # (Auto) (1.2-4.9) X10*3/uL Mcdonald # (Auto) (0.1-1.2) X10*3/uL Eos # (Auto) (0.0-0.4) X10*3/uL Baso # (Auto) (0.0-0.2) X10*3/uL Abs Immat Gran (auto) (0.00-0.03) X10*3/uL Absolute Neuts (auto) (2.0-8.3) x10*3/uL Absolute Nucleated RBC (0.0-0.012) X10*3/uL Nucleated RBC % (auto) (0.0-0.2) /100WBC Sodium (135-145) mmol/L Potassium (3.3-5.1) mmol/L Chloride (96-108) mmol/L Carbon Dioxide (22-29) mmol/L Anion Gap (12-20) BUN (9-16) mg/dL Creatinine (0.5-1.4) mg/dL Estim Creat Clear Calc Estimated GFR POC Glucose (60-115) mg/dL Random Glucose (60-115) mg/dL Lactic Acid (0.5-2.0) mmol/L Calcium (8.4-10.2) mg/dL Total Bilirubin (0.0-1.0) mg/dL AST (5-37) U/L ALT (0-40) U/L Alkaline Phosphatase (39-117) U/L Troponin I High Sens < 3.5 (<3.5-35.0) ng/L B-Natriuretic Peptide 35 (<100) pg/mL Total Protein (6.5-8.0) g/dL Albumin (3.5-5.0) g/dL Lipase (8-78) U/L Urine Color Urine Appearance Urine pH (5.0-8.0) Ur Specific [place] (1.005-1.025) Urine Protein (NEG-TRACE) MG/DL Urine Glucose (UA) (NEG) MG/DL Urine Ketones (NEG) MG/DL Urine Blood (NEG) Urine Nitrite (NEG) Ur Leukocyte Esterase (NEG) Ethyl Alcohol < 10 mg/dL Influenza Type A (PCR) (Negative) Influenza Type B (PCR) (Negative) RSV RNA Qual (PCR) (Negative) SARS-CoV-2 RNA (RT-PCR) (Negative) Discharge Plan Discharge Clinical Impression: Acute hyperglycemia Patient Disposition: Home, Self-Care Instructions: Diabetic Hyperglycemia (ED) Additional Instructions: Your laboratory evaluation here in the emergency department was unremarkable. Your fingerstick glucose was 76 and your serum glucose was 84. We did give you some food to eat prior to sending you home. You should continue to take your insulin and other medications as prescribed by your doctor. Follow-up with your doctor in 2 days. Please return to the emergency department if your symptoms get worse or if you develop any symptoms that are concerning to you. Prescriptions: No Action metformin 500 mg tablet 500 mg PO BID Qty: 180 RF: 0 amlodipine 10 mg tablet 10 mg PO DAILY 30 Days Qty: 30 RF: 0 fenofibrate 54 mg tablet 54 mg PO DAILY 90 Days Qty: 90 RF: 0 hydrochlorothiazide 25 mg tablet 25 mg PO DAILY 30 Days Qty: 30 RF: 0 Trulicity 1.5 mg/0.5 mL pen injector 1.5 mg subcut QWEEK 28 Days Qty: 2 RF: 2 escitalopram oxalate 10 mg tablet 10 mg PO DAILY 90 Days Qty: 90 RF: 3 ezetimibe [Zetia] 10 mg tablet 10 mg PO DAILY 90 Days Qty: 90 RF: 0 simvastatin 40 mg tablet 40 mg PO DAILY 90 Days Qty: 90 RF: 0 cefuroxime axetil 500 mg tablet 500 mg PO BID 10 Days Qty: 20 RF: 0 levothyroxine 137 mcg tablet 137 mcg PO DAILY 90 Days Qty: 90 RF: 2 lisinopril 10 mg tablet 10 mg PO DAILY 90 Days Qty: 90 RF: 3 (DME) pen needle, diabetic [BD Ultra-Fine Adelina Pen Needle] 32 gauge x 5/32 needle See Rx Instructions .ROUTE .MEDSUPPLY Qty: 360 RF: 3 (DME) FreeStyle Precision Gama Strips Strip See Rx Instructions .ROUTE .MEDSUPPLY Qty: 50 RF: 11 insulin aspart U-100 [Novolog Flexpen U-100 Insulin] 100 unit/mL (3 mL) insulin pen 20 unit subcut TID 30 Days Qty: 18 RF: 2 Tresiba FlexTouch U-200 200 unit/mL (3 mL) insulin pen 75 unit subcut DAILY 30 Days Qty: 18 RF: 2 (DME) FreeStyle Leonel 14 Day [place] Misc See Rx Instructions .ROUTE .MEDSUPPLY Qty: 1 RF: 0
[2021-05-23 16:58] LABS: Appearance Urine HAZY; Color Urine YELLOW; Glucose Urine UA NEG (NEG); Leukocyte Esterase Urine NEG (NEG); Nitrite Urine NEG (NEG); Specific Gravity - Urine <= 1.005 (1.005-1.025); Urine Blood NEG (NEG); Urine Ketones NEG (NEG); Urine Protein NEG (NEG-TRACE)
[2021-05-23 17:35] LABS: Influenza A PCR NEGATIVE (Negative); Influenza B PCR NEGATIVE (Negative); Resp Syncy Virus RNA Qual PCR NEGATIVE (Negative); SARS COV2 PCR INHOUSE NEGATIVE (Negative)
[2021-05-23 17:57] LABS: MANUAL DIFF FLAG NO
[2021-05-23 17:59] LABS: Basophils Percent Auto 0.3 % (0-2); Eosinophils Absolute Auto 0.1 X10*3/uL (0.0-0.4); Eosinophils Percent Auto 0.7 % (0-4); Hematocrit 38.2 % (42.0-52.0); Hemoglobin 13.2 g/dl (14.0-18.0); Imm Gran Abs Auto 0.05 X10*3/uL (0.00-0.03); Imm Gran Pct Auto 0.5 % (0.0-0.4); Lymphocytes Absolute Auto 1.5 X10*3/uL (1.2-4.9); Lymphocytes Percent Auto 14.6 % (20-40); Mean Corpuscular HGB Conc 34.6 g/dl (31.0-36.0); Mean Corpuscular Hemoglobin 32.4 pg (27.0-33.0); Mean Corpuscular Volume 93.9 fL (80.0-98.0); Mean Platelet Volume 9.6 fL (9.4-12.4); Monocytes Percent Auto 9.5 % (2-11); Neutrophils Absolute Auto 7.5 x10*3/uL (2.0-8.3); Neutrophils Percent Auto 74.4 % (45-73); Platelet Count 216 X10*3/uL (160-400); Red Blood Count 4.07 X10*6/uL (4.60-5.80); White Blood Count 10.1 X10*3/uL (4.8-10.8)
[2021-05-23 18:11] LABS: Ethanol < 10 mg/dL
[2021-05-23 18:13] LABS: Alanine Aminotransferase 28 U/L (0-40); Albumin Level 3.6 g/dL (3.5-5.0); Alkaline Phosphatase 60 U/L (39-117); Anion Gap 13 (12-20); Aspartate Amino Transferase 22 U/L (5-37); Bilirubin Total 0.4 mg/dL (0.0-1.0); Blood Urea Nitrogen 20 mg/dL (9-16); Calcium 9.4 mg/dL (8.4-10.2); Carbon Dioxide 27 mmol/L (22-29); Chloride 102 mmol/L (96-108); Estimated Glomerular Filt Rate > 60; Glucose Random 84 mg/dL (60-115); Lipase 53 U/L (8-78); Potassium 4.1 mmol/L (3.3-5.1); Sodium 138 mmol/L (135-145); Total Protein 6.5 g/dL (6.5-8.0)
[2021-05-23 18:17] LABS: Lactic Acid 2.5 mmol/L (0.5-2.0)
[2021-05-23 18:20] LABS: B Type Natriuretic Peptide 35 pg/mL (<100); Troponin-I High Sensitivity < 3.5 ng/L (<3.5-35.0)
[2021-05-23 18:37] VITALS: BP 98/57; PULSE 85; RESP 18; TEMP 36.7; O2SAT 100
[2021-05-23 19:54] LABS: Reflex Lactate? Lactic Acid Added
== END 2021-05-23 20:19 | disposition home or self-care (01) ==
PROVIDERS: Emergency Provider Emergency Medicine Emergency Medical Services
DX: E11.65 Type 2 diabetes mellitus with hyperglycemia (principal); Z20.822 Contact with and (suspected) exposure to COVID-19; R53.83 Other fatigue; F81.0 Specific reading disorder; Z79.4 Long term (current) use of insulin
CPT/HCPCS: 0241U; 36415; 71045; 80053; 81003; 82077; 82947; 83605; 83690; 83880; 84484; 85025; 87040; 93005; 99284

== ENCOUNTER → 2021-05-24 09:28 | Outpatient (BNVA) | payer OTHER, SELFPAY | PROVIDERS: PCP Internal Medicine; Visit Provider Nurse Practitioner Gerontology | DX: E11.65 Type 2 diabetes mellitus with hyperglycemia (principal); E11.29 Type 2 diabetes mellitus with other diabetic kidney complication; E78.5 Hyperlipidemia, unspecified; I10 Essential (primary) hypertension; E66.01 Morbid (severe) obesity due to excess calories; Z79.4 Long term (current) use of insulin; Z68.41 Body mass index [BMI] 40.0-44.9, adult; R80.9 Proteinuria, unspecified | CPT/HCPCS: 82947; 83036; 99212 ==

== ENCOUNTER 2021-05-24 10:28 | Outpatient (REF) | payer OTHER, SELFPAY ==
[2021-05-24 14:40] LABS: Microalbum/Creatinine Ratio Ur 83.3 ug/mg cr
[2021-05-24 14:48] LABS: Alanine Aminotransferase 26 U/L (0-40); Albumin Level 3.8 g/dL (3.5-5.0); Alkaline Phosphatase 60 U/L (39-117); Anion Gap 17 (12-20); Aspartate Amino Transferase 21 U/L (5-37); Bilirubin Total 0.7 mg/dL (0.0-1.0); Blood Urea Nitrogen 15 mg/dL (9-16); Calcium 9.3 mg/dL (8.4-10.2); Carbon Dioxide 23 mmol/L (22-29); Chloride 103 mmol/L (96-108); Cholesterol 164 mg/dL; Estimated Glomerular Filt Rate > 60; Glucose Random 101 mg/dL (60-115); HDL Cholesterol 48 mg/dL; LDL Cholesterol Calculated 91 mg/dl; Potassium 4.2 mmol/L (3.3-5.1); Sodium 139 mmol/L (135-145); Total Protein 6.9 g/dL (6.5-8.0); Triglycerides 125 mg/dL
[2021-05-26 03:52] LABS: LDL Cholesterol Direct 89 mg/dL (<100)
== END 2021-05-24 10:29 | disposition home or self-care (01) ==
LOC: HO.10HDL 10:28
PROVIDERS: Visit Provider Nurse Practitioner Gerontology
DX: E11.65 Type 2 diabetes mellitus with hyperglycemia (principal); Z79.4 Long term (current) use of insulin
CPT/HCPCS: 36415; 80053; 80061; 82043; 83721

== ENCOUNTER 2021-05-29 12:28 | Emergency (ER) | payer OTHER, SELFPAY ==
[2021-05-29 12:34] VITALS: BP 121/75; BP 162/85; PULSE 76; PULSE 77; RESP 16; O2SAT 100; BMI 34.0
[2021-05-29 12:44] LABS: Glucose, Whole Blood 79 mg/dL (60-115)
--- NOTE | 2021-05-29 12:46 | ED.AMS ---
HPI - Altered Mental Status General Chief Complaint: General Medical Stated Complaint: LOW BS: POC 51,D10 BEING GIVEN PER EMS Time Seen by Provider: 05/29/21 12:46 Source: EMS Mode of arrival: EMS Limitations: language barrier History of Present Illness HPI narrative: Patient was found falling out of the bathroom, altered with BS of 36, he was given IV dextrose in route by EMS Timing confirmed by: other Severity: severe Associated symptoms: diaphoresis and weakness Related Data Previous Rx's Medication Instructions Recorded pen needle, diabetic 32 gauge x #360 ea 05/06/20 (BD Ultra-Fine Adelina Pen Needle) levothyroxine 137 mcg tablet 137 mcg PO DAILY 90 Days #90 tab 05/17/20 lisinopril 10 mg tablet 10 mg PO DAILY 90 Days #90 tab 05/17/20 metformin 500 mg tablet 500 mg PO BID #180 tab 08/17/20 blood sugar diagnostic (FreeStyle #50 ea 11/08/20 Precision Gama Strips) insulin aspart U-100 100 unit/mL 20 unit (0.2 mL) SUBCUT TID 30 11/22/20 (3 mL) subcutaneous pen (Novolog Days #18 ml Flexpen U-100 Insulin aspart) insulin degludec 200 unit/mL (3 75 unit (0.375 mL) SUBCUT DAILY 30 11/22/20 mL) subcutaneous pen (Tresiba Days #18 ml FlexTouch U-200 insulin) flash glucose scanning reader #1 ea 12/06/20 (FreeStyle Leonel 14 Day [facility]) amlodipine 10 mg tablet 10 mg PO DAILY 30 Days #30 tab 05/17/21 cefuroxime axetil 500 mg tablet 500 mg PO BID 10 Days #20 tab 05/17/21 dulaglutide 1.5 mg/0.5 mL 1.5 mg (0.5 mL) SUBCUT QWEEK 28 05/17/21 subcutaneous pen injector Days #2 ml (Trulicity) fenofibrate 54 mg tablet 54 mg PO DAILY 90 Days #90 tab 05/17/21 hydrochlorothiazide 25 mg tablet 25 mg PO DAILY 30 Days #30 tab 05/17/21 escitalopram oxalate 10 mg tablet 10 mg PO DAILY 90 Days #90 tab 05/22/21 ezetimibe 10 mg tablet (Zetia) 10 mg PO DAILY 90 Days #90 tab 11/29/21 simvastatin 40 mg tablet 40 mg PO DAILY 90 Days #90 tab 05/22/21 glucose 4 gram chewable tablet 4 g PO ONCE PRN 30 Days #30 tab 05/29/21 (Dex4 Glucose) Allergies Allergy/AdvReac Type Severity Reaction Status Date / Time atorvastatin [ATORVASTATIN] Allergy Unknown skin Verified 05/24/21 09:57 eruption Review of Systems Review of Systems: Yes Unobtainable due to mental status and Other (Patient with MR unable to give good history) Neurologic: Denies Sensory deficit (Neuro) [facility] Past Medical History Medical History Acute kidney injury Autoimmune thyroiditis Cataracts, both eyes CHF (congestive heart failure) Cognitive developmental delay Diabetes Diabetic ketoacidosis Edema Essential hypertension HTN (hypertension) Hyperkalemia Hyperlipidemia Hyperlipidemia LDL goal <100 Hyponatremia Hypothyroid Infection of penis Obesity due to excess calories Proteinuria Type 2 diabetes mellitus with hyperglycemia, with long-term current use of insulin Type 2 diabetes mellitus with other diabetic kidney complication Surgical History Hx of cataract surgery Hx of removal of cyst Family History Family History Father HTN (hypertension) Mother Diabetes mellitus Maternal Grandmother Diabetes mellitus Social History Social History Household Members: Other Household Members Other:: [facility] Housing: Other Housing Other:: [facility] Do you presently have visiting nurse or other home services: No Alcohol intake: never Patient Tobacco Use Status: Never used Tobacco e-Cigarette/Vaping Use: Never Used Use of substances other than those prescribed or required for medical reasons: No Substance Use Type: Caffiene Advance Directives: No Advance Directives Information Provided: No service: No Current occupational status: disabled Physical Exam Vital Signs: Vital Signs: Last Vital Signs Pulse 77 05/29/21 12:34 Resp 16 05/29/21 12:34 BP 162/85 H 05/29/21 12:34 Pulse Ox 100 05/29/21 12:34 BMI result Body Mass Index 34.0 Const: Other: patient diaphoretic, MR, awake Nutritional Appearance: average body habitus Orientation/consciousness: oriented to person Limitations: other limitations (mental) HENMT: Head: Yes normal to inspection Ears: external ears normal General nose exam: Normal external nose present Mouth: Normal oral and palatal mucosa present and oropharynx normal Throat: Yes posterior oropharynx normal Eyes: General: appearance normal, both eyes and all related structures Neck: Other: supple Neck: Yes normal visual inspection Chest: Chest palpation & inspection: normal inspection of the chest Resp: Auscultation: clear to auscultation bilaterally Cardio: Jugular venous distension: no JVD Rate: regular rate Rhythm: regular rhythm Heart sounds: S1 normal heart sound present and S2 normal heart sound present GI: Inspection: Yes normal to inspection Palpation (GI): Soft to palpation, nontender and No hepatosplenomegaly present Auscultation: normal bowel sounds : General: Yes no CVA tenderness Back/Spine/Pelvis: Back: no CVA tenderness Skin: Other: diaphoresis Neuro: General: oriented to person Cranial nerves: Yes CN's II-XII intact bilaterally Motor exam (neuro): 5/5 motor strength present throughout Sensory Exam: No Sensory deficit (Neuro) Extrem: General: Yes normal to inspection Psych: Appearance: grossly normal Course Reevaluation(s) Reevaluation #1: patient ate and was observed many hours, no further hypoglycemia, no evidence of infection will dc home Time: 19:05 MDM - Altered Mental Status Lab Data Result diagrams: 05/29/21 13:44 05/29/21 16:50 Labs: Lab Results 05/29/21 05/29/21 05/29/21 Range/Units 12:36 13:44 16:50 WBC 8.5 (4.8-10.8) X10*3/uL RBC 4.43 L (4.60-5.80) X10*6/uL Hgb 14.2 (14.0-18.0) g/dl Hct 41.1 L (42.0-52.0) % MCV 92.8 (80.0-98.0) fL MCH 32.1 (27.0-33.0) pg MCHC 34.5 (31.0-36.0) g/dl RDW 12.9 (11.0-16.0) % Plt Count 190 (160-400) X10*3/uL MPV 9.6 (9.4-12.4) fL Immature Gran % (Auto) 0.4 (0.0-0.4) % Neut % (Auto) 74.5 H (45-73) % Lymph % (Auto) 16.5 L (20-40) % [place] % (Auto) 7.2 (2-11) % Eos % (Auto) 0.5 (0-4) % Baso % (Auto) 0.9 (0-2) % Lymph # (Auto) 1.4 (1.2-4.9) X10*3/uL [place] # (Auto) 0.6 (0.1-1.2) X10*3/uL Eos # (Auto) 0.0 (0.0-0.4) X10*3/uL Baso # (Auto) 0.1 (0.0-0.2) X10*3/uL Abs Immat Gran (auto) 0.03 (0.00-0.03) X10*3/uL Absolute Neuts (auto) 6.3 (2.0-8.3) x10*3/uL Absolute Nucleated RBC 0.000 (0.0-0.012) X10*3/uL Nucleated RBC % (auto) 0.0 (0.0-0.2) /100WBC Sodium 138 (135-145) mmol/L Potassium 4.2 (3.3-5.1) mmol/L Chloride 103 (96-108) mmol/L Carbon Dioxide 27 (22-29) mmol/L Anion Gap 12 (12-20) BUN 15 (9-16) mg/dL Creatinine 0.83 (0.5-1.4) mg/dL Estim Creat Clear Calc 125.3 Estimated GFR > 60 POC Glucose 79 (60-115) mg/dL Random Glucose 122 H (60-115) mg/dL Calcium 9.3 (8.4-10.2) mg/dL Urine Color Urine Appearance Urine pH (5.0-8.0) Ur Specific [place] (1.005-1.025) Urine Protein (NEG-TRACE) MG/DL Urine Glucose (UA) (NEG) MG/DL Urine Ketones (NEG) MG/DL Urine Blood (NEG) Urine Nitrite (NEG) Ur Leukocyte Esterase (NEG) 05/29/21 05/29/21 Range/Units 18:36 18:36 WBC (4.8-10.8) X10*3/uL RBC (4.60-5.80) X10*6/uL Hgb (14.0-18.0) g/dl Hct (42.0-52.0) % MCV (80.0-98.0) fL MCH (27.0-33.0) pg MCHC (31.0-36.0) g/dl RDW (11.0-16.0) % Plt Count (160-400) X10*3/uL MPV (9.4-12.4) fL Immature Gran % (Auto) (0.0-0.4) % Neut % (Auto) (45-73) % Lymph % (Auto) (20-40) % [place] % (Auto) (2-11) % Eos % (Auto) (0-4) % Baso % (Auto) (0-2) % Lymph # (Auto) (1.2-4.9) X10*3/uL [place] # (Auto) (0.1-1.2) X10*3/uL Eos # (Auto) (0.0-0.4) X10*3/uL Baso # (Auto) (0.0-0.2) X10*3/uL Abs Immat Gran (auto) (0.00-0.03) X10*3/uL Absolute Neuts (auto) (2.0-8.3) x10*3/uL Absolute Nucleated RBC (0.0-0.012) X10*3/uL Nucleated RBC % (auto) (0.0-0.2) /100WBC Sodium (135-145) mmol/L Potassium (3.3-5.1) mmol/L Chloride (96-108) mmol/L Carbon Dioxide (22-29) mmol/L Anion Gap (12-20) BUN (9-16) mg/dL Creatinine (0.5-1.4) mg/dL Estim Creat Clear Calc Estimated GFR POC Glucose 87 (60-115) mg/dL Random Glucose (60-115) mg/dL Calcium (8.4-10.2) mg/dL Urine Color YELLOW Urine Appearance CLEAR Urine pH 6.0 (5.0-8.0) Ur Specific [place] <= 1.005 (1.005-1.025) Urine Protein NEG (NEG-TRACE) MG/DL Urine Glucose (UA) 100 H (NEG) MG/DL Urine Ketones NEG (NEG) MG/DL Urine Blood NEG (NEG) Urine Nitrite NEG (NEG) Ur Leukocyte Esterase NEG (NEG) Discharge Plan Discharge Clinical Impression: Hypoglycemia Patient Disposition: Home, Self-Care Instructions: Hypoglycemia in a Person with Diabetes (ED) Prescriptions: No Action metformin 500 mg tablet 500 mg PO BID Qty: 180 RF: 0 amlodipine 10 mg tablet 10 mg PO DAILY 30 Days Qty: 30 RF: 0 fenofibrate 54 mg tablet 54 mg PO DAILY 90 Days Qty: 90 RF: 0 hydrochlorothiazide 25 mg tablet 25 mg PO DAILY 30 Days Qty: 30 RF: 0 Trulicity 1.5 mg/0.5 mL pen injector 1.5 mg subcut QWEEK 28 Days Qty: 2 RF: 2 escitalopram oxalate 10 mg tablet 10 mg PO DAILY 90 Days Qty: 90 RF: 3 ezetimibe [Zetia] 10 mg tablet 10 mg PO DAILY 90 Days Qty: 90 RF: 0 simvastatin 40 mg tablet 40 mg PO DAILY 90 Days Qty: 90 RF: 0 glucose [Dex4 Glucose] 4 gram tablet,chewable 4 g PO ONCE PRN (Reason: hypoglycemia) 30 Days Qty: 30 RF: 6 cefuroxime axetil 500 mg tablet 500 mg PO BID 10 Days Qty: 20 RF: 0 levothyroxine 137 mcg tablet 137 mcg PO DAILY 90 Days Qty: 90 RF: 2 lisinopril 10 mg tablet 10 mg PO DAILY 90 Days Qty: 90 RF: 3 (DME) pen needle, diabetic [BD Ultra-Fine Adelina Pen Needle] 32 gauge x 5/32 needle See Rx Instructions .ROUTE .MEDSUPPLY Qty: 360 RF: 3 (DME) FreeStyle Precision Gama Strips Strip See Rx Instructions .ROUTE .MEDSUPPLY Qty: 50 RF: 11 insulin aspart U-100 [Novolog Flexpen U-100 Insulin] 100 unit/mL (3 mL) insulin pen 20 unit subcut TID 30 Days Qty: 18 RF: 2 Tresiba FlexTouch U-200 200 unit/mL (3 mL) insulin pen 75 unit subcut DAILY 30 Days Qty: 18 RF: 2 (DME) FreeStyle Leonel 14 Day [facility] See Rx Instructions .ROUTE .MEDSUPPLY Qty: 1 RF: 0 Referrals: Adwoa Mcadams MD [Primary Care Provider] - 3 days
[2021-05-29 13:48] LABS: Basophils Absolute Auto 0.1 X10*3/uL (0.0-0.2); Basophils Percent Auto 0.9 % (0-2); Eosinophils Percent Auto 0.5 % (0-4); Hematocrit 41.1 % (42.0-52.0); Hemoglobin 14.2 g/dl (14.0-18.0); Imm Gran Abs Auto 0.03 X10*3/uL (0.00-0.03); Imm Gran Pct Auto 0.4 % (0.0-0.4); Lymphocytes Absolute Auto 1.4 X10*3/uL (1.2-4.9); Lymphocytes Percent Auto 16.5 % (20-40); MANUAL DIFF FLAG NO; Mean Corpuscular HGB Conc 34.5 g/dl (31.0-36.0); Mean Corpuscular Hemoglobin 32.1 pg (27.0-33.0); Mean Corpuscular Volume 92.8 fL (80.0-98.0); Mean Platelet Volume 9.6 fL (9.4-12.4); Monocytes Absolute Auto 0.6 X10*3/uL (0.1-1.2); Monocytes Percent Auto 7.2 % (2-11); Neutrophils Absolute Auto 6.3 x10*3/uL (2.0-8.3); Neutrophils Percent Auto 74.5 % (45-73); Platelet Count 190 X10*3/uL (160-400); Red Blood Count 4.43 X10*6/uL (4.60-5.80); Red Cell Distribution Width 12.9 % (11.0-16.0); White Blood Count 8.5 X10*3/uL (4.8-10.8)
[2021-05-29 17:38] LABS: Anion Gap 12 (12-20); Blood Urea Nitrogen 15 mg/dL (9-16); Calcium 9.3 mg/dL (8.4-10.2); Carbon Dioxide 27 mmol/L (22-29); Chloride 103 mmol/L (96-108); Creatinine Clr Calc Pharmacy 125.3; Estimated Glomerular Filt Rate > 60; Glucose Random 122 mg/dL (60-115); Potassium 4.2 mmol/L (3.3-5.1); Sodium 138 mmol/L (135-145)
[2021-05-29 18:39] LABS: Glucose, Whole Blood 87 mg/dL (60-115)
[2021-05-29 18:52] LABS: Appearance Urine CLEAR; Color Urine YELLOW; Glucose Urine UA 100 MG/DL (NEG); Leukocyte Esterase Urine NEG (NEG); Nitrite Urine NEG (NEG); Specific Gravity - Urine <= 1.005 (1.005-1.025); Urine Blood NEG (NEG); Urine Ketones NEG (NEG); Urine Protein NEG (NEG-TRACE)
== END 2021-05-29 22:10 | disposition home or self-care (01) ==
PROVIDERS: Emergency Provider Emergency Medicine; PCP Internal Medicine
DX: E11.649 Type 2 diabetes mellitus with hypoglycemia without coma (principal); I10 Essential (primary) hypertension; E78.5 Hyperlipidemia, unspecified; Z79.4 Long term (current) use of insulin
CPT/HCPCS: 36415; 80048; 81003; 82947; 85025; 99283; 99284

== ENCOUNTER → 2021-05-31 12:55 | Outpatient (BNVA) | payer OTHER, SELFPAY | PROVIDERS: PCP Internal Medicine; Visit Provider Registered Nurse Diabetes Educator | DX: E11.65 Type 2 diabetes mellitus with hyperglycemia (principal); Z79.4 Long term (current) use of insulin | CPT/HCPCS: 99211 ==

== ENCOUNTER → 2021-06-15 12:39 | Outpatient (BNVA) | payer OTHER, SELFPAY | PROVIDERS: PCP Internal Medicine; Visit Provider Registered Nurse Diabetes Educator | DX: E11.00 Type 2 diabetes mellitus with hyperosmolarity without nonketotic hyperglycemic-hyperosmolar coma (NKHHC) (principal); E11.65 Type 2 diabetes mellitus with hyperglycemia; Z79.4 Long term (current) use of insulin | CPT/HCPCS: 99211 ==

== ENCOUNTER 2021-07-28 19:46 | Emergency (ER) | payer OTHER, SELFPAY ==
[2021-07-28 19:54] VITALS: BP 150/90; PULSE 80; O2SAT 100
[2021-07-28 20:17] VITALS: BP 116/77; PULSE 94; RESP 16; TEMP 36.5; O2SAT 100; BMI 35.4
--- NOTE | 2021-07-28 21:48 | PC.NURSE ---
difficult lab stick
--- NOTE | 2021-07-29 00:34 | ED_ITS ---
HPI - Extremity Problem General Chief complaint: Extremity Problem Stated complaint: PEDAL EDEMA X'S DAYS Time Seen by Provider: 07/29/21 00:02 Source: patient Mode of arrival: ambulatory Limitations: language barrier (Macanese speaking only, iPad director financial systems used) History of Present Illness HPI Narrative: 50-year-old male who presents emergency department for evaluation of bilateral lower extremity swelling. Patient states he has had this for many years. Patient states that he has been worse since Saturday (5 days). Patient states he is prescribed water pill and he ran out of his thyroid medication. He does not know the name these medications. In reviewing his outpatient record he last filled his levothyroxine 137 micro g once a day on 07/04/2021 and he last filled his hydrochlorothiazide at 25 mg once a day on 07/04/2021. Patient states he has had some mild dyspnea on exertion but no shortness of breath at rest. He denied chest pain, abdominal pain, nausea, vomiting, fever, chills, fatigue, myalgias arthralgias. MD Complaint: extremity swelling Onset (ago): year(s) Location: lower extremity (Bilateral) Relieving factors: nothing Exacerbating factors: nothing Associated symptoms: other (Mild dyspnea on exertion) Related Data Previous Rx's Medication Instructions Recorded insulin aspart U-100 100 unit/mL 20 unit (0.2 mL) SUBCUT TID 11/22/20 (3 mL) subcutaneous pen (Novolog Days #18 ml Flexpen U-100 Insulin aspart) insulin degludec 200 unit/mL (3 75 unit (0.375 mL) SUBCUT DAILY 30 11/22/20 mL) subcutaneous pen (Tresiba Days #18 ml FlexTouch U-200 insulin) amlodipine 10 mg tablet 10 mg PO DAILY 30 Days #30 tab 05/17/21 cefuroxime axetil 500 mg tablet 500 mg PO BID 10 Days #20 tab 05/17/21 dulaglutide 1.5 mg/0.5 mL 1.5 mg (0.5 mL) SUBCUT QWEEK 28 05/17/21 subcutaneous pen injector Days #2 ml (Trulicity) fenofibrate 54 mg tablet 54 mg PO DAILY 90 Days #90 tab 05/17/21 escitalopram oxalate 10 mg tablet 10 mg PO DAILY 90 Days #90 tab 05/22/21 ezetimibe 10 mg tablet (Zetia) 10 mg PO DAILY 90 Days #90 tab 05/22/21 simvastatin 40 mg tablet 40 mg PO DAILY 90 Days #90 tab 05/22/21 glucose 4 gram chewable tablet 4 g PO ONCE PRN 30 Days #30 tab 05/29/21 (Dex4 Glucose) blood sugar diagnostic (FreeStyle #50 ea 05/30/21 Precision Gama Strips) flash glucose sensor (FreeStyle #2 ea 06/01/21 Leonel 2 Sensor) lisinopril 10 mg tablet 10 mg PO DAILY 90 Days #90 tab 06/10/21 hydrochlorothiazide 25 mg tablet 25 mg PO DAILY 30 Days #30 tab 07/04/21 levothyroxine 137 mcg tablet 137 mcg PO DAILY 90 Days #90 tab 07/04/21 metformin 500 mg tablet 500 mg PO BID #180 tab 07/04/21 pen needle, diabetic 32 gauge x 1 ea SUBCUT QID #360 cap 07/04/21 (BD Ultra-Fine Adelina Pen Needle) hydrochlorothiazide 25 mg tablet 25 mg PO DAILY #30 tab 07/29/21 levothyroxine 137 mcg capsule 137 mcg PO DAILY #30 cap 07/29/21 Allergies Allergy/AdvReac Type Severity Reaction Status Date / Time atorvastatin Allergy Unknown skin Verified 05/24/21 09:57 [ATORVASTATIN] eruption Review of Systems Verdana 4l Review of Systems: Yes all other systems are reviewed and Verdana 4d are negative [facility] Past Medical History [facility] Narrative: Social history: He denies tobacco, alcohol and drug use. Medical History Acute kidney injury Autoimmune thyroiditis Cataracts, both eyes CHF (congestive heart failure) Cognitive developmental delay Diabetes Diabetic ketoacidosis Edema Essential hypertension HTN (hypertension) Hyperkalemia Hyperlipidemia Hyperlipidemia LDL goal <100 Hyponatremia Hypothyroid Infection of penis Obesity due to excess calories Proteinuria Type 2 diabetes mellitus with hyperglycemia, with long-term current use of insulin Type 2 diabetes mellitus with other diabetic kidney complication Surgical History Hx of cataract surgery Hx of removal of cyst Family History Family History Father HTN (hypertension) Mother Diabetes mellitus Maternal Grandmother Diabetes mellitus Social History Social History Household Members: Other Household Members Other:: [facility] [place] Housing: Other Housing Other:: [facility] [place] Do you presently have visiting nurse or other home services: No Alcohol intake: never Patient Tobacco Use Status: Never used Tobacco e-Cigarette/Vaping Use: Never Used Substance Use Type: Caffiene Advance Directives: No Advance Directives Information Provided: No service: No Current occupational status: disabled Physical Exam Verdana 4l Vital Signs: Verdana 4d Verdana 4d Vital Signs: Verdana 4d Verdana 4Bd Last Vital Signs Verdana 4d Obstetrician And Gynaecologist New 4d Obstetrician And Gynaecologist New 4d Temp 97.7 F 07/28/21 20:17 Obstetrician And Gynaecologist New 4d Pulse 94 07/28/21 20:17 Obstetrician And Gynaecologist New 4d Resp 16 07/28/21 20:17 BP 116/77 07/28/21 20:17 Pulse Ox 100 07/28/21 20:17 BMI result Body Mass Index 35.4 Const: Other: Awake, alert, male patient, BMI 35.4, pleasant, cooperative, in no distress HENMT: Head: Yes normal to inspection, Yes normocephalic and Yes atraumatic Ears: external ears normal General nose exam: Normal external nose present Face and sinus: Yes normal facial exam Mouth: Normal oral and palatal mucosa present Throat: Yes posterior oropharynx normal Eyes: General: appearance normal, both eyes and all related structures Pupils: Equal, round and reactive pupils present Neck: Neck: Yes normal visual inspection, Yes no lymphadenopathy, Yes trachea midline and Yes supple Chest: Chest palpation & inspection: normal inspection of the chest and normal palpation of entire chest wall Resp: Effort & Inspection: normal respiratory effort and able to speak in complete sentences Auscultation: clear to auscultation bilaterally Cardio: Rate: regular rate Rhythm: regular rhythm Heart sounds: S1 normal heart sound present, S2 normal heart sound present and no murmurs GI: Inspection: Yes normal to inspection Palpation (GI): Soft to palpation, nontender and no guarding Auscultation: normal bowel sounds : General: Yes no CVA tenderness Back/Spine/Pelvis: Back: no CVA tenderness Skin: General skin exam: no rashes or lesions noted Neuro: Cranial nerves: Yes CN's II-XII intact bilaterally and Yes Equal, round and reactive pupils present Cognition (Neuro): normal cognition Motor exam (neuro): 5/5 motor strength present throughout Extrem: General: Yes normal to inspection, No calf tenderness and Yes edema (Trace to 1+, bilaterally symmetric) Psych: Appearance: grossly normal Speech and movement: Normal speech and movement present Affect: normal affect Attitude: cooperative Thought process: Normal thought process present Thought content: Normal thought content present Course Course Course Narrative: 50-year-old male who presents emergency department for evaluation of bilateral lower extremity swelling which he states is chronic but is worse times 5 days and he states that he was unable to fill his prescription for his water pill or his thyroid pill. He has noted mild dyspnea on exertion otherwise he has had no other significant symptoms. Vital signs were normal . The patient does have trace to 1+ pitting edema which is symmetric. In reviewing his pharmacy prescription medications, he takes hydrochlorothiazide 25 mg once a day and levothyroxine 137 micro g once a day. I will refill these 2 prescriptions for him. The patient was given verbal and printed instructions discharged home. Discharge Plan Discharge Clinical Impression: Edema, peripheral, Hyperthyroidism Patient Disposition: Home, Self-Care Prescriptions: New levothyroxine 137 mcg capsule 137 mcg PO DAILY Qty: 30 0RF hydrochlorothiazide 25 mg tablet 25 mg PO DAILY Qty: 30 0RF No Action amlodipine 10 mg tablet 10 mg PO DAILY 30 Days Qty: 30 0RF fenofibrate 54 mg tablet 54 mg PO DAILY 90 Days Qty: 90 0RF Trulicity 1.5 mg/0.5 mL pen injector 1.5 mg subcut QWEEK 28 Days Qty: 2 2RF escitalopram oxalate 10 mg tablet 10 mg PO DAILY 90 Days Qty: 90 3RF ezetimibe [Zetia] 10 mg tablet 10 mg PO DAILY 90 Days Qty: 90 0RF simvastatin 40 mg tablet 40 mg PO DAILY 90 Days Qty: 90 0RF glucose [Dex4 Glucose] 4 gram tablet,chewable 4 g PO ONCE PRN (Reason: hypoglycemia) 30 Days Qty: 30 6RF Rx Instructions: until symptoms of low blood sugar are controlled (DME) FreeStyle Precision Gama Strips Strip See Rx Instructions .ROUTE .MEDSUPPLY Qty: 50 11RF Rx Instructions: As directed once daily (DME) FreeStyle Leonel 2 Sensor Kit See Rx Instructions .ROUTE .MEDSUPPLY Qty: 2 11RF Rx Instructions: As directed every 2 weeks lisinopril 10 mg tablet 10 mg PO DAILY 90 Days Qty: 90 3RF hydrochlorothiazide 25 mg tablet 25 mg PO DAILY 30 Days Qty: 30 0RF levothyroxine 137 mcg tablet 137 mcg PO DAILY 90 Days Qty: 90 2RF metformin 500 mg tablet 500 mg PO BID Qty: 180 1RF pen needle, diabetic [BD Ultra-Fine Adelina Pen Needle] 32 gauge x 5/32 needle 1 ea subcut QID Qty: 360 3RF cefuroxime axetil 500 mg tablet 500 mg PO BID 10 Days Qty: 20 0RF insulin aspart U-100 [Novolog Flexpen U-100 Insulin] 100 unit/mL (3 mL) insulin pen 20 unit subcut TID 30 Days Qty: 18 2RF Tresiba FlexTouch U-200 200 unit/mL (3 mL) insulin pen 75 unit subcut DAILY 30 Days Qty: 18 2RF Label Comments: reports this causes him nausea lately. Takes it before lunch.
[2021-07-29 00:50] VITALS: BP 136/74; PULSE 93; RESP 14; TEMP 37.1; O2SAT 100
== END 2021-07-29 01:15 | disposition home or self-care (01) ==
PROVIDERS: Emergency Provider Emergency Medicine Emergency Medical Services
DX: R60.0 Localized edema (principal); E05.90 Thyrotoxicosis, unspecified without thyrotoxic crisis or storm; E11.9 Type 2 diabetes mellitus without complications; I10 Essential (primary) hypertension; E78.5 Hyperlipidemia, unspecified; Z79.4 Long term (current) use of insulin; Z79.02 Long term (current) use of antithrombotics/antiplatelets
CPT/HCPCS: 99283

== ENCOUNTER → 2021-08-01 13:35 | Outpatient (BNVA) | payer OTHER, SELFPAY | PROVIDERS: PCP Internal Medicine; Visit Provider Registered Nurse Diabetes Educator | DX: E11.65 Type 2 diabetes mellitus with hyperglycemia (principal); Z79.4 Long term (current) use of insulin | CPT/HCPCS: 99211 ==

== ENCOUNTER → 2021-08-30 11:02 | Outpatient (BNVA) | payer OTHER, SELFPAY | PROVIDERS: PCP Internal Medicine; Visit Provider Registered Nurse Diabetes Educator | DX: E11.65 Type 2 diabetes mellitus with hyperglycemia (principal); Z79.4 Long term (current) use of insulin | CPT/HCPCS: 99211 ==

== ENCOUNTER 2021-09-29 08:42 | Outpatient (REF) | payer OTHER, SELFPAY ==
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
[2021-09-29 09:59] LABS: Alanine Aminotransferase 23 U/L (0-40); Albumin Level 4.2 g/dL (3.5-5.0); Alkaline Phosphatase 51 U/L (39-117); Anion Gap 13 (12-20); Aspartate Amino Transferase 15 U/L (5-37); Blood Urea Nitrogen 17 mg/dL (9-16); Calcium 9.2 mg/dL (8.4-10.2); Carbon Dioxide 23 mmol/L (22-29); Chloride 100 mmol/L (96-108); Cholesterol 107 mg/dL; Estimated Glomerular Filt Rate > 60; Glucose Fasting 77 mg/dL (60-99); HDL Cholesterol 42 mg/dL; LDL Cholesterol Calculated 53 mg/dl; Potassium 4.4 mmol/L (3.3-5.1); Sodium 132 mmol/L (135-145); Total Protein 7.2 g/dL (6.5-8.0); Triglycerides 62 mg/dL
[2021-09-29 10:23] LABS: Creatinine Urine 44.52 mg/dL; Microalbum/Creatinine Ratio Ur 235.8 ug/mg cr
[2021-09-29 10:23] LABS: PSA,Total (Free>4and<10) 0.19 ng/mL (0.00-4.00); Thyroid Stimulating Hormone 4.14 uIU/mL (0.32-4.0)
== END 2021-09-29 08:43 | disposition home or self-care (01) ==
LOC: HO.LAB 08:42
PROVIDERS: Visit Provider Internal Medicine
DX: Z12.5 Encounter for screening for malignant neoplasm of prostate (principal); M25.561 Pain in right knee; M25.562 Pain in left knee; M79.671 Pain in right foot; M79.672 Pain in left foot; E78.5 Hyperlipidemia, unspecified; E55.9 Vitamin D deficiency, unspecified; E06.3 Autoimmune thyroiditis; E11.65 Type 2 diabetes mellitus with hyperglycemia; Z79.4 Long term (current) use of insulin
CPT/HCPCS: 36415; 73560; 73620; 80053; 80061; 82043; 82306; 84153; 84443

== ENCOUNTER → 2021-10-04 12:32 | Outpatient (BNVA) | payer OTHER, SELFPAY | PROVIDERS: PCP Internal Medicine; Visit Provider Nurse Practitioner Gerontology | DX: E11.65 Type 2 diabetes mellitus with hyperglycemia (principal); E11.29 Type 2 diabetes mellitus with other diabetic kidney complication; E78.5 Hyperlipidemia, unspecified; E66.01 Morbid (severe) obesity due to excess calories; R80.9 Proteinuria, unspecified; I10 Essential (primary) hypertension; Z79.4 Long term (current) use of insulin; Z68.33 Body mass index [BMI] 33.0-33.9, adult | CPT/HCPCS: 82947; 99212 ==

== ENCOUNTER → 2021-11-14 12:34 | Outpatient (BNVA) | payer OTHER, SELFPAY | PROVIDERS: PCP Internal Medicine; Visit Provider Registered Nurse Diabetes Educator | DX: E11.00 Type 2 diabetes mellitus with hyperosmolarity without nonketotic hyperglycemic-hyperosmolar coma (NKHHC) (principal); E11.65 Type 2 diabetes mellitus with hyperglycemia | CPT/HCPCS: 99211 ==

== ENCOUNTER 2021-11-14 13:00 | Emergency (ER) | payer OTHER, SELFPAY ==
--- NOTE | ~2021-11-14 | XR_ITS ---
EXAMINATION: XR TOES, RIGHT CLINICAL INFORMATION: Right fourth toe injury COMPARISON: Right foot x-ray September 2021 TECHNIQUE: 3 views of the right toes were obtained. FINDINGS: There is a minimally displaced fracture of the distal phalanx of the fourth toe intra-articular with the DIP joint. No other fracture is seen. Joint spaces are otherwise normal. There is overlying soft tissue swelling. XR/XR toe RT min 2V IMPRESSION: Minimally displaced fracture of the distal phalanx of the fourth toe intra-articular with the DIP joint.
[2021-11-14 14:42] VITALS: BP 132/74; PULSE 84; RESP 18; TEMP 36.8; O2SAT 97; BMI 50.2
[2021-11-14 15:11] LABS: MANUAL DIFF FLAG NO
[2021-11-14 15:15] LABS: Basophils Absolute Auto 0.1 X10*3/uL (0.0-0.2); Basophils Percent Auto 0.9 % (0-2); Eosinophils Absolute Auto 0.4 X10*3/uL (0.0-0.4); Eosinophils Percent Auto 5.1 % (0-4); Hematocrit 34.2 % (42.0-52.0); Hemoglobin 12.2 g/dl (14.0-18.0); Imm Gran Abs Auto 0.02 X10*3/uL (0.00-0.03); Imm Gran Pct Auto 0.2 % (0.0-0.4); Lymphocytes Absolute Auto 2.1 X10*3/uL (1.2-4.9); Lymphocytes Percent Auto 24.8 % (20-40); Mean Corpuscular HGB Conc 35.7 g/dl (31.0-36.0); Mean Corpuscular Hemoglobin 30.1 pg (27.0-33.0); Mean Corpuscular Volume 84.4 fL (80.0-98.0); Mean Platelet Volume 9.3 fL (9.4-12.4); Monocytes Absolute Auto 0.7 X10*3/uL (0.1-1.2); Monocytes Percent Auto 8.2 % (2-11); Neutrophils Absolute Auto 5.3 x10*3/uL (2.0-8.3); Neutrophils Percent Auto 60.8 % (45-73); Platelet Count 280 X10*3/uL (160-400); Red Blood Count 4.05 X10*6/uL (4.60-5.80); Red Cell Distribution Width 12.2 % (11.0-16.0); White Blood Count 8.6 X10*3/uL (4.8-10.8)
[2021-11-14 15:29] LABS: Alanine Aminotransferase 17 U/L (0-40); Albumin Level 3.8 g/dL (3.5-5.0); Alkaline Phosphatase 47 U/L (39-117); Anion Gap 10 (12-20); Aspartate Amino Transferase 14 U/L (5-37); Bilirubin Total 0.5 mg/dL (0.0-1.0); Blood Urea Nitrogen 20 mg/dL (9-16); Calcium 9.1 mg/dL (8.4-10.2); Carbon Dioxide 23 mmol/L (22-29); Chloride 105 mmol/L (96-108); Creatinine Clr Calc Pharmacy 125.9; Estimated Glomerular Filt Rate > 60; Glucose Random 180 mg/dL (60-115); Potassium 4.4 mmol/L (3.3-5.1); Sodium 134 mmol/L (135-145); Total Protein 6.6 g/dL (6.5-8.0)
--- NOTE | 2021-11-14 16:45 | ED.LOWEXIN ---
HPI - Extremity Injury (Lower) General Chief Complaint: Wound/Laceration Stated Complaint: Toe INJ/diabetic Time Seen by Provider: 11/14/21 16:17 Source: patient Mode of arrival: ambulatory Limitations: no limitations History of Present Illness HPI Narrative: 51-year-old male with a past medical history of type 2 diabetes, hypertension, hyperlipidemia and obesity presenting to the with complaints of right 4th toe pain/swelling after he was walking in his house at nighttime to use the bathroom and he accidentally impacted a large mop bucket at his house and since then he has been having pain/swelling and he has some bleeding which has resolved. He denies any fevers, chills, drainage from the site or any other symptoms complaints concerns or injuries at this time. MD complaint: foot injury (Fourth toe) Onset (ago): week(s) (1) Injury: Left: toes (4th toe) Type of Injury: blunt Place: home Severity: moderate Relieving factors: nothing Exacerbating factors: weight bearing, movement and palpation Context: direct blow Associated symptoms: swelling and ambulatory Other symptoms: none Related Data Previous Rx's Medication Instructions Recorded dulaglutide 1.5 mg/0.5 mL 1.5 mg (0.5 mL) SUBCUT QWEEK 28 05/17/21 subcutaneous pen injector Days #2 ml (Trulicity) escitalopram oxalate 10 mg tablet 10 mg PO DAILY 90 Days #90 tab 05/22/21 blood sugar diagnostic (FreeStyle #50 ea 05/30/21 Precision Gama Strips) flash glucose sensor (FreeStyle #2 ea 06/01/21 Leonel 2 Sensor) lisinopril 10 mg tablet 10 mg PO DAILY 90 Days #90 tab 06/10/21 metformin 500 mg tablet 500 mg PO BID #180 tab 07/04/21 pen needle, diabetic 32 gauge x 1 ea SUBCUT QID #360 cap 07/04/21 (BD Ultra-Fine Adelina Pen Needle) hydrochlorothiazide 25 mg tablet 25 mg PO DAILY #30 tab 07/29/21 levothyroxine 137 mcg capsule 137 mcg PO DAILY #30 cap 07/29/21 glucose 4 gram chewable tablet 4 g PO ONCE PRN 30 Days #30 tab 08/21/21 (Dex4 Glucose) ezetimibe 10 mg tablet (Zetia) 10 mg PO DAILY 90 Days #90 tab 08/31/21 simvastatin 40 mg tablet 40 mg PO DAILY 90 Days #90 tab 08/31/21 insulin aspart U-100 100 unit/mL 16 - 20 unit (0.16 - 0.2 mL) 09/04/21 (3 mL) subcutaneous pen (Novolog SUBCUT TID 30 Days #18 ml Flexpen U-100 Insulin aspart) fenofibrate 54 mg tablet 54 mg PO DAILY 90 Days #90 tab 09/20/21 ibuprofen 600 mg tablet 600 mg PO Q6-8H PRN #30 tab 09/20/21 calcitriol 0.5 mcg capsule 0.5 mcg PO DAILY 90 Days #90 cap 10/01/21 levothyroxine 150 mcg tablet 150 mcg PO DAILY 90 Days #90 tab 10/01/21 insulin degludec 200 unit/mL (3 64 unit (0.32 mL) SUBCUT DAILY 30 10/04/21 mL) subcutaneous pen (Tresiba Days #18 ml FlexTouch U-200 insulin) right knee brace #1 ea 10/09/21 wrist splint bilateral #2 ea 10/09/21 amlodipine 10 mg tablet 10 mg PO DAILY 30 Days #30 tab 10/15/21 gabapentin 100 mg capsule 100 mg PO BEDTIME 90 Days #90 cap 10/16/21 high shower chair #1 ea 10/31/21 raised toilet seat #1 ea 11/01/21 tramadol 50 mg tablet 50 mg PO Q8H PRN #14 tab 11/14/21 Allergies Allergy/AdvReac Type Severity Reaction Status Date / Time atorvastatin [ATORVASTATIN] Allergy Unknown skin Verified 11/14/21 14:42 eruption Review of Systems Review of Systems: Constitutional : No Weight loss, No Fever, No Chills, No Night Sweats, No Fatigue, No Malaise ENT/Mouth : No Hearing loss, No Ear Pain, No Nasal Congestion, No Sinus Pain, No Hoarseness, No sore throat, No Rhinorrhea, No Swallowing Difficulty Eyes: No Eye Pain, No Swelling, No Redness, No Foreign Body, No Discharge, No Vision Changes Cardiovascular : No Chest Pain, No SOB, No Dyspnea on Exertion, No Orthopnea, No Edema, No Palpitations Respiratory : No Cough, No Sputum, No Wheezing, No Smoke Exposure, No Dyspnea Gastrointestinal : No Nausea, No Vomiting, No Diarrhea, No Constipation, No abdominal Pain, No Hematochezia, No Melena Genitourinary : no irregular bleeding, No Dysuria, No Urinary Frequency, No Hematuria, No Urinary Incontinence, No Urgency, No Flank Pain, No Urinary Flow Changes, No Hesitancy Musculoskeletal : + right 4th toe joint pain, No Myalgias, No Joint Swelling Skin : No Skin Lesions, No rash Neuro : No Weakness, No Numbness, No Paresthesias, No Loss of Consciousness, No Dizziness, No Headache Psych : No Anxiety/Panic, No Depression, No SI/HI/AH/VH, No Social Issues, Heme/Lymph: No Bruising, No Bleeding,No Lymphadenopathy Endocrine : No Polyuria, No Polydipsia, No Temperature Intolerance Yes all other systems are reviewed and are negative [facility] Past Medical History Attestation statement: The following information was validated with the patient. Medical History Acute kidney injury Autoimmune thyroiditis Bilateral hand pain Cataracts, both eyes CHF (congestive heart failure) Cognitive developmental delay Diabetes Diabetic ketoacidosis Edema Essential hypertension HTN (hypertension) Hyperkalemia Hyperlipidemia Hyperlipidemia LDL goal <100 Hyponatremia Hypothyroid Hypovitaminosis D Infection of penis Left foot pain Obesity due to excess calories Proteinuria Right foot pain Right knee pain Type 2 diabetes mellitus with hyperglycemia, with long-term current use of insulin Type 2 diabetes mellitus with other diabetic kidney complication Surgical History Hx of cataract surgery Hx of removal of cyst Family History Family History Father HTN (hypertension) Mother Diabetes mellitus Maternal Grandmother Diabetes mellitus Social History Social History Household Members: Other Household Members Other:: [employer] [place] Housing: Other Housing Other:: [facility] Do you presently have visiting nurse or other home services: No Alcohol intake: never Patient Tobacco Use Status: Never used Tobacco e-Cigarette/Vaping Use: Never Used Second Hand Smoke Exposure: No Substance Use Type: Caffiene Advance Directives: No Advance Directives Information Provided: No service: No Current occupational status: disabled Cognitive needs: No Hearing needs: No Vision needs: No Physical Exam Vital Signs: Vital Signs: Last Vital Signs Temp 98.3 F 11/14/21 14:42 Pulse 84 11/14/21 14:42 Resp 18 11/14/21 14:42 BP 132/74 11/14/21 14:42 Pulse Ox 97 11/14/21 14:42 BMI result Body Mass Index 50.2 vital signs have been reviewed as normal and appeared to be correct. Blood pressure normal Heart rate normal. Respiration rate normal. Temperature normal. Oxygen saturation normal. Appearance: Alert. Oriented X3. No acute distress. Head: Normal external exam. Normocephalic. Atraumatic. Eyes: PERRLA. EOMI. Conjunctiva and sclera normal. Eyelids normal. ENT: Pharynx normal. Uvula midline. Moist mucous membranes. Neck: Normal inspection. Neck supple. FROM. CVS: Normal heart rate and rhythm. Respiratory: No respiratory distress. Painless inspiration. Skin: Skin warm and dry. Normal skin color. Normal skin turgor. No rashes/lesions/lacerations noted. Extremities: To the right foot at the 4th digit at the distal aspect it appears that the patient's nail went back and he has some dried blood and some ecchymosis noted. No streaking/induration/fluctuance/erythema or warmth to touch not consistent with septic joint or cellulitis. Not consistent with abscess. Patient has tenderness palpation at the distal aspect of the toe on palpation. No obvious ligamentous or tendon injury noted. Otherwise no lower extremity edema or calf tenderness in all other extremities exhibit normal range of motion nontender. Neuro: Oriented X 3. No motor deficit. No sensory deficit. Reflexes normal. Normal steady gait. No focal neuro deficits noted. Vascular: + radial pulses/+ 2 distal pedal pulses/+2 dorsalis pedis b/l. Normal cap refill. No cyanosis noted to upper extremity nails and lower extremity toes nails. Course Course Course Narrative: Labs reviewed and patient has mild anemia although denies any bleeding. Sodium 134 although this appears chronic. BUN 20. Random glucose 180. Otherwise all other labs are within normal limits. X-ray revealed minimally displaced fracture of the distal phalanx of the 4th toe intra-articular with the D IP. Therefore will place in a ortho shoe and treat symptomatic knee and instructed follow-up with orthopedics and to return if any new or worsening symptoms. Patient understands agrees with this plan. MDM - Extremity Injury (Lower) Medical Records Attestation: I reviewed the patient's medical records. Lab Data Attestation: I reviewed the patient's lab results. Result diagrams: 11/14/21 15:06 11/14/21 15:06 Labs: Lab Results 11/14/21 11/14/21 Range/Units 15:06 15:06 WBC 8.6 (4.8-10.8) X10*3/uL RBC 4.05 L (4.60-5.80) X10*6/uL Hgb 12.2 L (14.0-18.0) g/dl Hct 34.2 L (42.0-52.0) % MCV 84.4 (80.0-98.0) fL MCH 30.1 (27.0-33.0) pg MCHC 35.7 (31.0-36.0) g/dl RDW 12.2 (11.0-16.0) % Plt Count 280 D (160-400) X10*3/uL MPV 9.3 L (9.4-12.4) fL Immature Gran % (Auto) 0.2 (0.0-0.4) % Neut % (Auto) 60.8 (45-73) % Lymph % (Auto) 24.8 (20-40) % [place] % (Auto) 8.2 (2-11) % Eos % (Auto) 5.1 H (0-4) % Baso % (Auto) 0.9 (0-2) % Lymph # (Auto) 2.1 (1.2-4.9) X10*3/uL [place] # (Auto) 0.7 (0.1-1.2) X10*3/uL Eos # (Auto) 0.4 (0.0-0.4) X10*3/uL Baso # (Auto) 0.1 (0.0-0.2) X10*3/uL Abs Immat Gran (auto) 0.02 (0.00-0.03) X10*3/uL Absolute Neuts (auto) 5.3 (2.0-8.3) x10*3/uL Absolute Nucleated RBC 0.000 (0.0-0.012) X10*3/uL Nucleated RBC % (auto) 0.0 (0.0-0.2) /100WBC Sodium 134 L (135-145) mmol/L Potassium 4.4 (3.3-5.1) mmol/L Chloride 105 (96-108) mmol/L Carbon Dioxide 23 (22-29) mmol/L Anion Gap 10 L (12-20) BUN 20 H (9-16) mg/dL Creatinine 1.01 (0.5-1.4) mg/dL Estim Creat Clear Calc 125.9 Estimated GFR > 60 Random Glucose 180 H D (60-115) mg/dL Calcium 9.1 (8.4-10.2) mg/dL Total Bilirubin 0.5 (0.0-1.0) mg/dL AST 14 (5-37) U/L ALT 17 (0-40) U/L Alkaline Phosphatase 47 (39-117) U/L Total Protein 6.6 (6.5-8.0) g/dL Albumin 3.8 (3.5-5.0) g/dL Imaging Data Right foot x-ray: Attestation: I personally reviewed and interpreted this imaging study as follows: Radiologist's impression: FINDINGS: There is a minimally displaced fracture of the distal phalanx of the fourth toe intra-articular with the DIP joint. No other fracture is seen. Joint spaces are otherwise normal. There is overlying soft tissue swelling. XR/XR toe RT min 2V IMPRESSION: Minimally displaced fracture of the distal phalanx of the fourth toe intra-articular with the DIP joint. Discharge Plan Discharge Clinical Impression: Fracture of fourth toe, right, closed Patient Disposition: Home, Self-Care Instructions: Toe Fracture (ED), Post Surgical Shoe (ED) Prescriptions: New tramadol 50 mg tablet 50 mg PO Q8H PRN (Reason: pain) Qty: 14 0RF Rx Instructions: May partially fill upon patient request No Action Trulicity 1.5 mg/0.5 mL pen injector 1.5 mg subcut QWEEK 28 Days Qty: 2 2RF escitalopram oxalate 10 mg tablet 10 mg PO DAILY 90 Days Qty: 90 3RF (DME) FreeStyle Precision Gama Strips Strip See Rx Instructions .ROUTE .MEDSUPPLY Qty: 50 11RF Rx Instructions: As directed once daily (DME) FreeStyle Loenel 2 Sensor Kit See Rx Instructions .ROUTE .MEDSUPPLY Qty: 2 11RF Rx Instructions: As directed every 2 weeks lisinopril 10 mg tablet 10 mg PO DAILY 90 Days Qty: 90 3RF metformin 500 mg tablet 500 mg PO BID Qty: 180 1RF pen needle, diabetic [BD Ultra-Fine Adelina Pen Needle] 32 gauge x 5/32 needle 1 ea subcut QID Qty: 360 3RF ezetimibe [Zetia] 10 mg tablet 10 mg PO DAILY 90 Days Qty: 90 3RF simvastatin 40 mg tablet 40 mg PO DAILY 90 Days Qty: 90 3RF insulin aspart U-100 [Novolog Flexpen U-100 Insulin] 100 unit/mL (3 mL) insulin pen 16 - 20 unit subcut TID 30 Days Qty: 18 6RF Rx Instructions: 14 units prior to meals, 16 u for bg over 200, 18u for bg over 250 and 20 u for bg over 300. fenofibrate 54 mg tablet 54 mg PO DAILY 90 Days Qty: 90 3RF ibuprofen 600 mg tablet 600 mg PO Q6-8H PRN (Reason: for pain) Qty: 30 0RF levothyroxine 150 mcg tablet 150 mcg PO DAILY 90 Days Qty: 90 1RF calcitriol 0.5 mcg capsule 0.5 mcg PO DAILY 90 Days Qty: 90 1RF (DME) right knee brace See Rx Instructions .Route .MEDSUPPLY Qty: 1 0RF Rx Instructions: As directed (DME) wrist splint bilateral See Rx Instructions .Route .MEDSUPPLY Qty: 2 0RF Rx Instructions: As directed amlodipine 10 mg tablet 10 mg PO DAILY 30 Days Qty: 30 4RF gabapentin 100 mg capsule 100 mg PO BEDTIME 90 Days Qty: 90 0RF (DME) high shower chair See Rx Instructions .Route .MEDSUPPLY Qty: 1 0RF Rx Instructions: As directed (DME) raised toilet seat See Rx Instructions .Route .MEDSUPPLY Qty: 1 0RF Rx Instructions: As directed levothyroxine 137 mcg capsule 137 mcg PO DAILY Qty: 30 0RF Hold Instructions: Dose Change hydrochlorothiazide 25 mg tablet 25 mg PO DAILY Qty: 30 0RF glucose [Dex4 Glucose] 4 gram tablet,chewable 4 g PO ONCE PRN (Reason: hypoglycemia) 30 Days Qty: 30 6RF Rx Instructions: until symptoms of low blood sugar are controlled Tresiba FlexTouch U-200 200 unit/mL (3 mL) insulin pen 64 unit subcut DAILY 30 Days Qty: 18 2RF Label Comments: reports this causes him nausea lately. Takes it before lunch. Referrals: Anthony Diallo MD [Physician] - 2 weeks Adwoa Mcadams MD [Primary Care Provider] - 2 days Print Language: Uruguayan
== END 2021-11-14 18:06 | disposition home or self-care (01) ==
PROVIDERS: Emergency Provider Emergency Medicine; PCP Internal Medicine
DX: S92.531A Displaced fracture of distal phalanx of right lesser toe(s), initial encounter for closed fracture (principal); M79.671 Pain in right foot; I10 Essential (primary) hypertension; E78.5 Hyperlipidemia, unspecified; E11.9 Type 2 diabetes mellitus without complications; X58.XXXA Exposure to other specified factors, initial encounter; Y93.9 Activity, unspecified; Y92.9 Unspecified place or not applicable; Y99.9 Unspecified external cause status; Z79.899 Other long term (current) drug therapy; Z79.4 Long term (current) use of insulin
CPT/HCPCS: 36415; 73660; 80053; 85025; 99282; 99283

== ENCOUNTER → 2022-03-13 11:01 | Outpatient (BNVA) | payer OTHER, SELFPAY | PROVIDERS: PCP Internal Medicine; Visit Provider Registered Nurse Diabetes Educator | DX: E11.65 Type 2 diabetes mellitus with hyperglycemia (principal); Z79.4 Long term (current) use of insulin | CPT/HCPCS: 99211 ==

== ENCOUNTER 2022-06-20 17:56 | Inpatient (IN) | payer OTHER, SELFPAY ==
--- NOTE | ~2022-06-20 | MR_ITS ---
EXAMINATION: MR OF THE FOOT WITH AND WITHOUT CONTRAST, RIGHT CLINICAL INFORMATION: Question osteomyelitis. Poor prior study. COMPARISON: 06/21/2022 TECHNIQUE: Multiplanar MR imaging was obtained through the right forefoot and midfoot on a 1.5 Yanci magnet before and after intravenous administration of 10 mL Gadavist. Examination is slightly limited by motion artifact. The fat saturation in the region of the forefoot is improved as compared to prior. FINDINGS: Previously suspected soft tissue wound at the lateral aspect of the 5th toe proximal phalanx is less pronounced on the current study. Edema and hyperenhancement of the skin and subcutaneous soft tissues in this region is again noted without appreciable abscess. No abnormal enhancement of the underlying phalanges at the 5th toe. Marrow signal within the underlying phalanges of the 5th toe is intermediate, potentially reactive in nature. No abnormal signal intensity on T1-weighted images. Edema signal, skin thickening, and subcutaneous edema signal are also evident at the dorsal aspect of the forefoot. No abscess in this region. No other areas are identified which are concerning for osteomyelitis. 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 No fractures. There is atrophy, fatty replacement, and increased T2 signal intensity within the intrinsic foot musculature as can be seen with diabetes. Tendons appear intact. No tenosynovitis. The imaged portion of the plantar fascia is unremarkable. MR/MR foot RT wo/w con IMPRESSION: Apparent cellulitis at the dorsal aspect of the forefoot and lateral aspect of the 5th toe. Possible ulceration at the lateral aspect of the 5th toe is better seen on the prior study. No evidence of osteomyelitis or abscess.
--- NOTE | ~2022-06-20 | XR_ITS ---
EXAMINATION: XR FOOT, RIGHT CLINICAL INFORMATION: Question osteomyelitis of the fourth and fifth metatarsals COMPARISON: Right toe radiographs 11/14/2021, right foot radiographs 09/29/2021 TECHNIQUE: AP, lateral, and oblique views of the right foot. FINDINGS: Soft tissue wound/ulcer overlying the lateral aspect of the fifth metatarsal head. No underlying osseous destructive change or periostitis. No fracture or dislocation. No tracking soft tissue gas. No radiodense foreign body. Joint spaces are maintained. Lisfranc alignment is within normal limits. Atherosclerotic vascular calcifications and calcaneal spurs are seen. Diffuse dorsal soft tissue swelling. XR/XR foot RT 2V IMPRESSION: Soft tissue wound/ulcer overlying the lateral aspect of the fifth metatarsal head. No radiographic evidence of advanced osteomyelitis. If continued high clinical concern for acute osteomyelitis suggest either radiographic follow-up or alternatively MRI.
--- NOTE | ~2022-06-20 | MR_ITS ---
EXAMINATION: MR RIGHT FOOT WITHOUT AND WITH CONTRAST. CLINICAL INFORMATION: Rule out osteomyelitis COMPARISON: X-ray 06/20/2022 TECHNIQUE: Imaging in a high-field magnet without and with contrast. 10 mL Gadavist. FINDINGS: There is significant motion artifact degrading images, limiting evaluation. Soft tissue wound/ulceration overlying the lateral aspect of the fifth metatarsal head. Underlying subcutaneous edema/cellulitis. No fluid collections identified. Motion artifact degrading images, limiting evaluation of the fifth metatarsal head and fifth toe. Question T2 signal in the fifth metatarsal head and the fifth proximal phalanx, evaluation is markedly limited. Inhomogeneous fat saturation limiting evaluation of the postcontrast sequences. There is increased signal in the short axis TI fat-sat precontrast precontrast sequences from inhomogeneous fat saturation. Increased signal in the postcontrast short axis and sagittal sequence, which could be artifactual as well. Inhomogeneous fat saturation limits evaluation of the second, third, fourth toes as well. No gross edema is identified in the metatarsals. There is dorsal foot soft tissue swelling and subcutaneous edema/cellulitis. Increased signal in the intrinsic muscles of foot, can be seen with diabetic patients. No appreciable tenosynovitis. Visualized plantar aponeurosis appears intact. MR/MR foot RT wo/w con IMPRESSION: Motion artifact and inhomogeneous fat saturation limiting evaluation. Soft tissue wound/ulceration overlying the lateral aspect of the fifth metatarsal head. Possible edema/cellulitis. No focal fluid collection seen. Suboptimal imaging precludes reliable evaluation of the fifth toe and the fifth metatarsal . Osteomyelitis cannot be excluded. Recommend repeat MRI. Alternately, WBC bone scan could be considered.
[2022-06-20 18:07] VITALS: BP 116/60; PULSE 104; O2SAT 99
[2022-06-20 18:12] VITALS: BP 143/70; PULSE 99; RESP 17; TEMP 36.9; O2SAT 99; BMI 34.0
--- NOTE | 2022-06-20 19:03 | ED.LOWEXIN ---
HPI - Extremity Injury (Lower) General Chief Complaint: Extremity Injury, Lower Stated Complaint: FOOT WOUND, BLE EDEMA PER EMS Time Seen by Provider: 06/20/22 18:04 Source: patient Mode of arrival: EMS Limitations: no limitations History of Present Illness HPI Narrative: Patient comes to the emergency room via ambulance complaining of a blister in the sole of the right foot. Patient states that he noticed the blisters today. Patient admits to wearing leather sandals. Patient denies any pain, no fever or chills. Related Data Home Medications Medication Instructions Recorded Confirmed dulaglutide 1.5 mg/0.5 mL 1.5 mg subcut FR 06/20/22 06/20/22 subcutaneous pen injector (Trulicity) insulin aspart U-100 100 unit/mL 30 unit subcut TID 06/20/22 06/20/22 (3 mL) subcutaneous pen (Novolog Flexpen U-100 Insulin aspart) insulin degludec 200 unit/mL (3 40 unit subcut DAILY 06/20/22 06/20/22 mL) subcutaneous pen (Tresiba FlexTouch U-200 insulin) metformin 500 mg tablet 500 mg PO BIDWM 06/20/22 06/20/22 Previous Rx's Medication Instructions Recorded escitalopram oxalate 10 mg tablet 10 mg PO DAILY 90 days #90 tabs 05/22/21 blood sugar diagnostic (FreeStyle #50 ea 05/30/21 Precision Gama Strips) flash glucose sensor (FreeStyle #2 ea 06/01/21 Leonel 2 Sensor kit) glucose 4 gram chewable tablet 4 g PO ONCE PRN hypoglycemia 30 08/21/21 (Dex4 Glucose) days #30 tabs ezetimibe 10 mg tablet (Zetia) 10 mg PO DAILY 90 days #90 tabs 08/31/21 simvastatin 40 mg tablet 40 mg PO DAILY 90 days #90 tabs 08/31/21 fenofibrate 54 mg tablet 54 mg PO DAILY 90 days #90 tabs 09/20/21 right knee brace #1 ea 10/09/21 wrist splint bilateral #2 ea 10/09/21 high shower chair #1 ea 10/31/21 raised toilet seat #1 ea 11/01/21 levothyroxine 150 mcg tablet 150 mcg PO DAILY 90 days #90 tabs 03/23/22 gabapentin 100 mg capsule 100 mg PO Q8H 90 days #270 caps 04/19/22 hydrochlorothiazide 25 mg tablet 25 mg PO DAILY 90 days #90 tabs 04/19/22 lisinopril 10 mg tablet 10 mg PO DAILY 90 days #90 tabs 05/04/22 amlodipine 10 mg tablet 10 mg PO DAILY 30 days #30 tabs 06/07/22 cholecalciferol (vitamin D3) 50 50 mcg PO DAILY 90 days #90 caps 06/08/22 mcg (2,000 unit) capsule Allergies Allergy/AdvReac Type Severity Reaction Status Date / Time atorvastatin [ATORVASTATIN] Allergy Unknown skin Verified 12/27/21 10:50 eruption Review of Systems Review of Systems: Constitutional : No Weight loss, No Fever, No Chills, No Night Sweats, No Fatigue, No Malaise ENT/Mouth : No Hearing loss, No Ear Pain, No Nasal Congestion, No Sinus Pain, No Hoarseness, No sore throat, No Rhinorrhea, No Swallowing Difficulty Eyes: No Eye Pain, No Swelling, No Redness, No Foreign Body, No Discharge, No Vision Changes Cardiovascular : No Chest Pain, No SOB, No Dyspnea on Exertion, No Orthopnea, No Edema, No Palpitations Respiratory : No Cough, No Sputum, No Wheezing, No Smoke Exposure, No Dyspnea Gastrointestinal : No Nausea, No Vomiting, No Diarrhea, No Constipation, No abdominal Pain, No Hematochezia, No Melena Genitourinary : no irregular bleeding, No Dysuria, No Urinary Frequency, No Hematuria, No Urinary Incontinence, No Urgency, No Flank Pain, No Urinary Flow Changes, No Hesitancy Musculoskeletal : No joint pain, No Myalgias, No Joint Swelling Skin : Complaining of a blister on the plantar aspect of the right foot Neuro : No Weakness, No Numbness, No Paresthesias, No Loss of Consciousness, No Dizziness, No Headache Psych : No Anxiety/Panic, No Depression, No SI/HI/AH/VH, No Social Issues, Heme/Lymph: No Bruising, No Bleeding,No Lymphadenopathy Endocrine : No Polyuria, No Polydipsia, No Temperature Intolerance [facility] Past Medical History Medical History Acute kidney injury Autoimmune thyroiditis Bilateral hand pain Cataracts, both eyes CHF (congestive heart failure) Cognitive developmental delay Diabetes Diabetic ketoacidosis Edema Essential hypertension HTN (hypertension) Hyperkalemia Hyperlipidemia Hyperlipidemia LDL goal <100 Hyponatremia Hypothyroid Hypovitaminosis D Infection of penis Left foot pain Obesity due to excess calories Proteinuria Right foot pain Right knee pain Type 2 diabetes mellitus with hyperglycemia, with long-term current use of insulin Type 2 diabetes mellitus with other diabetic kidney complication Surgical History Hx of cataract surgery Hx of removal of cyst Family History Family History (Updated 12/27/21 @ 10:58 by Adwoa Fan MD) Father HTN (hypertension) Mother Diabetes mellitus Maternal Grandmother Diabetes mellitus Social History Social History Household Members: Other Household Members Other:: detention, [place] Housing: Other Housing Other:: detention, [place] Do you presently have visiting nurse or other home services: No Alcohol intake: never Patient Tobacco Use Status: Never used Tobacco Smoked in Last 30 Days: No e-Cigarette/Vaping Use: Never Used Second Hand Smoke Exposure: No Use of substances other than those prescribed or required for medical reasons: No Substance Use Type: Caffiene Advance Directives: No service: No Current occupational status: disabled Cognitive needs: Yes Hearing needs: No Vision needs: No Physical Exam Vital Signs: Vital Signs: Last Vital Signs Temp 98.5 F 06/20/22 18:12 Pulse 99 06/20/22 18:12 Resp 17 06/20/22 18:12 BP 143/70 H 06/20/22 18:12 Pulse Ox 99 06/20/22 18:12 O2 Del Method 06/20/22 18:12 BMI result Body Mass Index 34.0 Const: Other: Appearance: Alert. Oriented X3. No acute distress. Eyes: Pupils equal, round and reactive to light. ENT: Pharynx normal. Neck: Normal inspection. Neck supple. No lymph nodes noted. No crepitus CVS: Normal heart rate and rhythm. Pulses normal. Normal S1 and S2 Respiratory: No respiratory distress. Breath sounds normal. No Wheezing. No rales Abdomen: Soft and nontender. No rigidity. No distention. Skin: Patient has a large diabetic ulcer in the plantar aspect of the right foot, with foul-smelling discharge Extremities: No lower extremity edema. No Lacerations. No Rash Neuro: Oriented X 3. No motor deficit. No sensory deficit. Moving all extremities. No slurred speech. CN 2 through 12 grossly intact Psych: calm, cooperative, normal affect Course Course Course Narrative: Patient 1st noticed this lesion today. Likely, it has been there for several days. The wound has a foul smell, was to suspected, x-rays and labs pending. Patient receiving IV fluids, vancomycin and Zosyn. At this time, patient's vitals are stable, sepsis not suspected. I discussed with the patient that there is a pretty good chance that he will be admitted. Patient states that this is the 1st time that he has a diabetic ulcer Medications Administered Discontinued Medications Generic Name Dose Route Start Last Admin Trade Name Freq PRN Reason Stop Dose Admin Sodium Chloride 1,000 mls @ 999 mls/hr 06/20/22 18:50 06/20/22 19:38 Ns IVCONT 06/20/22 19:50 999 mls/hr .Q1H1M ONE Administration Piperacillin Sod/Tazobactam 50 mls @ 100 mls/hr 06/20/22 18:50 06/20/22 20:20 Sod 3.375 gm/ Sodium Chloride IV 06/20/22 19:19 Infused ONCE ONE Infusion Vancomycin HCl 2,000 mg in 520 mls @ 260 mls/hr 06/20/22 18:50 06/20/22 20:21 Vancomycin/Ns IV 06/20/22 20:49 260 mls/hr ONCE ONE Administration Medical Decision Making Differential Diagnosis Differential Diagnoses: The differential diagnosis associated with the presentation includes (Diabetic foot ulcer, osteomyelitis, cellulitis) Admission/Observation Consideration of admission/observation: Escalation of care including admission/observation considered (Patient has malodorous discharge, patient would benefit from IV antibiotics before the wound worsens.) Consult Healthcare Provider Management of the patient was discussed with: Hospitalist (I discussed the patient with Dr. ch, patient being admitted) Lab Data MDM Lab Attestation statement: I reviewed the patient's lab results. Result Diagrams: 06/20/22 19:33 06/20/22 19:28 Labs: Lab Results 06/20/22 06/20/22 06/20/22 Range/Units 19:28 19:28 19:33 WBC 12.2 H (4.8-10.8) X10*3/uL RBC 4.01 L (4.60-5.80) X10*6/uL Hgb 11.7 L (14.0-18.0) g/dl Hct 32.9 L (42.0-52.0) % MCV 82.0 (80.0-98.0) fL MCH 29.2 (27.0-33.0) pg MCHC 35.6 (31.0-36.0) g/dl RDW 12.3 (11.0-16.0) % Plt Count 201 D (160-400) X10*3/uL MPV 10.3 (9.4-12.4) fL Immature Gran % (Auto) 0.4 (0.0-0.4) % Neut % (Auto) 76.5 H (45-73) % Lymph % (Auto) 12.8 L (20-40) % [place]y % (Auto) 8.7 (2-11) % Eos % (Auto) 1.3 (0-4) % Baso % (Auto) 0.3 (0-2) % Lymph # (Auto) 1.6 (1.2-4.9) X10*3/uL [place] # (Auto) 1.1 (0.1-1.2) X10*3/uL Eos # (Auto) 0.2 (0.0-0.4) X10*3/uL Baso # (Auto) 0.0 (0.0-0.2) X10*3/uL Abs Immat Gran (auto) 0.05 H (0.00-0.03) X10*3/uL Absolute Neuts (auto) 9.4 H (2.0-8.3) x10*3/uL Absolute Nucleated RBC 0.000 (0.0-0.012) X10*3/uL Nucleated RBC % (auto) 0.0 (0.0-0.2) /100WBC Sodium 132 L (135-145) mmol/L Potassium 4.0 (3.3-5.1) mmol/L Chloride 98 (96-108) mmol/L Carbon Dioxide 24 (22-29) mmol/L Anion Gap 14 (12-20) BUN 28 H (9-16) mg/dL Creatinine 1.20 (0.5-1.4) mg/dL Estim Creat Clear Calc 85.7 Estimated GFR > 60 Random Glucose 267 H (60-115) mg/dL Lactic Acid (0.5-2.0) mmol/L Calcium 8.9 (8.4-10.2) mg/dL Total Bilirubin 0.8 (0.0-1.0) mg/dL Direct Bilirubin 0.3 (0.0-0.5) mg/dL AST 21 (5-37) U/L ALT 26 (0-40) U/L Alkaline Phosphatase 74 (39-117) U/L Total Protein 7.1 (6.5-8.0) g/dL Albumin 3.9 (3.5-5.0) g/dL TSH 3.49 Cancelled (0.32-4.0) uIU/mL COVID-19 (ZURDO) (Negative) COVID-19 Clin Com 06/20/22 06/20/22 Range/Units 19:33 19:33 WBC (4.8-10.8) X10*3/uL RBC (4.60-5.80) X10*6/uL Hgb (14.0-18.0) g/dl Hct (42.0-52.0) % MCV (80.0-98.0) fL MCH (27.0-33.0) pg MCHC (31.0-36.0) g/dl RDW (11.0-16.0) % Plt Count (160-400) X10*3/uL MPV (9.4-12.4) fL Immature Gran % (Auto) (0.0-0.4) % Neut % (Auto) (45-73) % Lymph % (Auto) (20-40) % [place] % (Auto) (2-11) % Eos % (Auto) (0-4) % Baso % (Auto) (0-2) % Lymph # (Auto) (1.2-4.9) X10*3/uL [place] # (Auto) (0.1-1.2) X10*3/uL Eos # (Auto) (0.0-0.4) X10*3/uL Baso # (Auto) (0.0-0.2) X10*3/uL Abs Immat Gran (auto) (0.00-0.03) X10*3/uL Absolute Neuts (auto) (2.0-8.3) x10*3/uL Absolute Nucleated RBC (0.0-0.012) X10*3/uL Nucleated RBC % (auto) (0.0-0.2) /100WBC Sodium (135-145) mmol/L Potassium (3.3-5.1) mmol/L Chloride (96-108) mmol/L Carbon Dioxide (22-29) mmol/L Anion Gap (12-20) BUN (9-16) mg/dL Creatinine (0.5-1.4) mg/dL Estim Creat Clear Calc Estimated GFR Random Glucose (60-115) mg/dL Lactic Acid 1.4 (0.5-2.0) mmol/L Calcium (8.4-10.2) mg/dL Total Bilirubin (0.0-1.0) mg/dL Direct Bilirubin (0.0-0.5) mg/dL AST (5-37) U/L ALT (0-40) U/L Alkaline Phosphatase (39-117) U/L Total Protein (6.5-8.0) g/dL Albumin (3.5-5.0) g/dL TSH (0.32-4.0) uIU/mL COVID-19 (ZURDO) Negative (Negative) COVID-19 Clin Com See Note Radiology Impression Discussion of test interpretation with radiology: I have reviewed the radiologist's reading. Radiologist Impression: FINDINGS: Soft tissue wound/ulcer overlying the lateral aspect of the fifth metatarsal head. No underlying osseous destructive change or periostitis. No fracture or dislocation. No tracking soft tissue gas. No radiodense foreign body. Joint spaces are maintained. Lisfranc alignment is within normal limits. Atherosclerotic vascular calcifications and calcaneal spurs are seen. Diffuse dorsal soft tissue swelling.? XR/XR foot RT 2V IMPRESSION: Soft tissue wound/ulcer overlying the lateral aspect of the fifth metatarsal head. No radiographic evidence of advanced osteomyelitis. If continued high clinical concern for acute osteomyelitis suggest either radiographic follow-up or alternatively MRI. Discharge Plan Discharge Clinical Impression: Diabetic foot ulcer Patient Disposition: Admitted As Inpatient Prescriptions: No Action escitalopram oxalate 10 mg tablet 10 mg PO DAILY 90 Days Qty: 90 3RF (DME) FreeStyle Precision Gama Strips Strip See Rx Instructions .ROUTE .MEDSUPPLY Qty: 50 11RF Rx Instructions: As directed once daily (DME) FreeStyle Leonel 2 Sensor Kit See Rx Instructions .ROUTE .MEDSUPPLY Qty: 2 11RF Rx Instructions: As directed every 2 weeks ezetimibe [Zetia] 10 mg tablet 10 mg PO DAILY 90 Days Qty: 90 3RF simvastatin 40 mg tablet 40 mg PO DAILY 90 Days Qty: 90 3RF fenofibrate 54 mg tablet 54 mg PO DAILY 90 Days Qty: 90 3RF (DME) right knee brace See Rx Instructions .Route .MEDSUPPLY Qty: 1 0RF Rx Instructions: As directed (DME) wrist splint bilateral See Rx Instructions .Route .MEDSUPPLY Qty: 2 0RF Rx Instructions: As directed (DME) high shower chair See Rx Instructions .Route .MEDSUPPLY Qty: 1 0RF Rx Instructions: As directed (DME) raised toilet seat See Rx Instructions .Route .MEDSUPPLY Qty: 1 0RF Rx Instructions: As directed levothyroxine 150 mcg tablet 150 mcg PO DAILY 90 Days Qty: 90 1RF gabapentin 100 mg capsule 100 mg PO Q8H 90 Days Qty: 270 0RF hydrochlorothiazide 25 mg tablet 25 mg PO DAILY 90 Days Qty: 90 1RF lisinopril 10 mg tablet 10 mg PO DAILY 90 Days Qty: 90 0RF amlodipine 10 mg tablet 10 mg PO DAILY 30 Days Qty: 30 4RF cholecalciferol (vitamin D3) 50 mcg (2,000 unit) capsule 50 mcg PO DAILY 90 Days Qty: 90 1RF insulin aspart U-100 [Novolog Flexpen U-100 Insulin] 100 unit/mL (3 mL) insulin pen 30 unit subcut TID metformin 500 mg tablet 500 mg PO BIDWM insulin degludec [Tresiba FlexTouch U-200] 200 unit/mL (3 mL) insulin pen 40 unit subcut DAILY Trulicity 1.5 mg/0.5 mL pen injector 1.5 mg subcut FR glucose [Dex4 Glucose] 4 gram tablet,chewable 4 g PO ONCE PRN (Reason: hypoglycemia) 30 Days Qty: 30 6RF Rx Instructions: until symptoms of low blood sugar are controlled
[2022-06-20] MEDS: 0.9 % Sodium Chloride 1,000 ML 999 ML IVCONT (19:38)
[2022-06-20 19:40] LABS: MANUAL DIFF FLAG NO
--- NOTE | 2022-06-20 19:41 | PC.NURSE ---
pt a&ox3, labs drawn, 20G IV placed left forearm, ivf running.
[2022-06-20 19:42] LABS: Basophils Percent Auto 0.3 % (0-2); Eosinophils Absolute Auto 0.2 X10*3/uL (0.0-0.4); Eosinophils Percent Auto 1.3 % (0-4); Hematocrit 32.9 % (42.0-52.0); Hemoglobin 11.7 g/dl (14.0-18.0); Imm Gran Abs Auto 0.05 X10*3/uL (0.00-0.03); Imm Gran Pct Auto 0.4 % (0.0-0.4); Lymphocytes Absolute Auto 1.6 X10*3/uL (1.2-4.9); Lymphocytes Percent Auto 12.8 % (20-40); Mean Corpuscular HGB Conc 35.6 g/dl (31.0-36.0); Mean Corpuscular Hemoglobin 29.2 pg (27.0-33.0); Mean Platelet Volume 10.3 fL (9.4-12.4); Monocytes Absolute Auto 1.1 X10*3/uL (0.1-1.2); Monocytes Percent Auto 8.7 % (2-11); Neutrophils Absolute Auto 9.4 x10*3/uL (2.0-8.3); Neutrophils Percent Auto 76.5 % (45-73); Platelet Count 201 X10*3/uL (160-400); Red Blood Count 4.01 X10*6/uL (4.60-5.80); Red Cell Distribution Width 12.3 % (11.0-16.0); White Blood Count 12.2 X10*3/uL (4.8-10.8)
[2022-06-20] MEDS: Piperacillin Sodium/Tazobactam 3.375 GM in 0.9 % Sodium Chloride 50 ML IV (19:43)
--- NOTE | 2022-06-20 19:48 | PHA.MEDREC ---
Pharmacy Consult ? Medication Reconciliation Pharmacy has completed the medication reconciliation.
--- NOTE | 2022-06-20 19:49 | PC.NURSE ---
pt ELAN from [facility] - pt has been living in sober residence for ~4 years, staff is working with pt's insurance account executive (Jennifer) to find new placement as they believe pt is not safe to return following [facility] d/c due to increasing needs related to health/cognitive impairment. for discharge placement, case management should coordinate with [facility]: . ED case management notified.
[2022-06-20 20:09] LABS: Lactic Acid 1.4 mmol/L (0.5-2.0)
[2022-06-20 20:12] LABS: COVID-19 Test Negative (Negative); IDNOW Serial# 16C4AD1C
[2022-06-20 20:29] LABS: Alanine Aminotransferase 26 U/L (0-40); Albumin Level 3.9 g/dL (3.5-5.0); Alkaline Phosphatase 74 U/L (39-117); Anion Gap 14 (12-20); Aspartate Amino Transferase 21 U/L (5-37); Bilirubin Direct 0.3 mg/dL (0.0-0.5); Bilirubin Total 0.8 mg/dL (0.0-1.0); Blood Urea Nitrogen 28 mg/dL (9-16); Calcium 8.9 mg/dL (8.4-10.2); Carbon Dioxide 24 mmol/L (22-29); Chloride 98 mmol/L (96-108); Creatinine Clr Calc Pharmacy 85.7; Estimated Glomerular Filt Rate > 60; Glucose Random 267 mg/dL (60-115); Sodium 132 mmol/L (135-145); TSH reflex Free T4 3.49 uIU/mL (0.32-4.0); Total Protein 7.1 g/dL (6.5-8.0)
[2022-06-20 22:25] VITALS: BP 136/76; PULSE 90; RESP 18; TEMP 36.7; O2SAT 98
--- NOTE | 2022-06-20 23:15 | PM.IMHP ---
History of Present Illness Date of Service: 06/20/22 Chief Complaint: foot ulcer Urdu speanking, history is obtained w help of supply planner 51-year-old male with past medical history of diabetes, history of thyroiditis, HTN, HLD presents the hospital with complaints of wound in the right foot. Patient reports that he only noticed it today when he had bleeding while trying to take a shower. He reports no trauma or injury to the foot. Denies any fever or chills, no pain, reports no chest pain, no shortness of breath no abdominal pain nausea or vomiting, no diarrhea constipation, no urinary symptoms and no lower extremity edema. On arrival to the ED patient hemodynamically stable no significant abnormal vitals Labs are significant for WBC count of 12.2, hemoglobin of 11.7, hematocrit of 32.9, sodium 132, BUN of 28, creatinine of 0.2 which is higher than his baseline of 0.7-1, foot x-ray shows soft tissue wound ulcer overlying the lateral aspect of the 5th metatarsal head. With no radiographic evidence of advanced osteomyelitis. Review of Systems Review of Systems: Yes all other systems are reviewed and are negative [facility] Medical History Acute kidney injury Autoimmune thyroiditis Bilateral hand pain Cataracts, both eyes CHF (congestive heart failure) Cognitive developmental delay Diabetes Diabetic ketoacidosis Edema Essential hypertension HTN (hypertension) Hyperkalemia Hyperlipidemia Hyperlipidemia LDL goal <100 Hyponatremia Hypothyroid Hypovitaminosis D Infection of penis Left foot pain Obesity due to excess calories Proteinuria Right foot pain Right knee pain Type 2 diabetes mellitus with hyperglycemia, with long-term current use of insulin Type 2 diabetes mellitus with other diabetic kidney complication Family History Father HTN (hypertension) Mother Diabetes mellitus Maternal Grandmother Diabetes mellitus Surgical History Hx of cataract surgery Hx of removal of cyst Social History Household Members: Other Household Members Other:: senior living, [place] Housing: Other Housing Other:: [facility] Do you presently have visiting nurse or other home services: No Alcohol intake: never Patient Tobacco Use Status: Never used Tobacco Smoked in Last 30 Days: No e-Cigarette/Vaping Use: Never Used Second Hand Smoke Exposure: No Use of substances other than those prescribed or required for medical reasons: No Substance Use Type: Caffiene Advance Directives: No service: No Current occupational status: disabled Cognitive needs: Yes Hearing needs: No Vision needs: No Meds Allergies Allergy/AdvReac Type Severity Reaction Status Date / Time atorvastatin [ATORVASTATIN] Allergy Unknown skin Verified 12/27/21 10:50 eruption Active Medications: Current Medications Pharmacy Consult (Consult Rx Perform Med Rec) 1 each MISCELLANE ONCE PRN PRN Reason: Consult order Home Medications Medication Instructions Recorded Confirmed Last Taken Type dulaglutide 1.5 mg/0.5 mL 1.5 mg subcut FR 06/20/22 06/20/22 06/15/22 History subcutaneous pen injector (Trulicity) insulin aspart U-100 100 unit/mL 30 unit subcut TID 06/20/22 06/20/22 06/20/22 History (3 mL) subcutaneous pen (Novolog Flexpen U-100 Insulin aspart) insulin degludec 200 unit/mL (3 40 unit subcut DAILY 06/20/22 06/20/22 06/20/22 History mL) subcutaneous pen (Tresiba FlexTouch U-200 insulin) metformin 500 mg tablet 500 mg PO BIDWM 06/20/22 06/20/22 06/20/22 History Physical Exam Vital Signs and Narrative: Vital Signs: Last Vital Signs Temp 98.1 F 06/20/22 22:25 Pulse 90 06/20/22 22:25 Resp 18 06/20/22 22:25 BP 136/76 06/20/22 22:25 Pulse Ox 98 06/20/22 22:25 O2 Del Method 06/20/22 22:25 BMI result Body Mass Index 34.0 Const: General: cooperative and no acute distress Orientation/consciousness: patient oriented x3 Eyes: General: appearance normal, both eyes and all related structures Pupils: Equal, round and reactive pupils present Resp: Effort & Inspection: normal respiratory effort Auscultation: clear to auscultation bilaterally Cardio: Rate: regular rate Rhythm: regular rhythm GI: Palpation (GI): Soft to palpation Auscultation: normal bowel sounds Skin: General skin exam: no rashes or lesions noted Neuro: General: patient oriented x3 Cranial nerves: Yes Equal, round and reactive pupils present Cognition (Neuro): normal cognition Extrem: Other: Right foot wound at the base of 4th and 5th toe Results Labs CBC and Chem 7: 06/21/22 06:25 06/20/22 19:28 Labs: Laboratory Results - last 24 hr 06/20/22 06/20/22 06/20/22 19:28 19:28 19:33 MCV 82.0 MCH 29.2 MCHC 35.6 RDW 12.3 Plt Count 201 D MPV 10.3 Immature Gran % (Auto) 0.4 Neut % (Auto) 76.5 H Lymph % (Auto) 12.8 L [place] % (Auto) 8.7 Eos % (Auto) 1.3 Baso % (Auto) 0.3 Lymph # (Auto) 1.6 [place] # (Auto) 1.1 Eos # (Auto) 0.2 Baso # (Auto) 0.0 Abs Immat Gran (auto) 0.05 H Absolute Neuts (auto) 9.4 H Absolute Nucleated RBC 0.000 Nucleated RBC % (auto) 0.0 Anion Gap 14 Estim Creat Clear Calc 85.7 Estimated GFR > 60 Random Glucose 267 H Lactic Acid Calcium 8.9 Total Bilirubin 0.8 Direct Bilirubin 0.3 AST 21 ALT 26 Alkaline Phosphatase 74 Total Protein 7.1 Albumin 3.9 TSH 3.49 Cancelled COVID-19 (ZURDO) COVID-19 Clin Com 06/20/22 06/20/22 19:33 19:33 MCV MCH MCHC RDW Plt Count MPV Immature Gran % (Auto) Neut % (Auto) Lymph % (Auto) [place] % (Auto) Eos % (Auto) Baso % (Auto) Lymph # (Auto) [place] # (Auto) Eos # (Auto) Baso # (Auto) Abs Immat Gran (auto) Absolute Neuts (auto) Absolute Nucleated RBC Nucleated RBC % (auto) Anion Gap Estim Creat Clear Calc Estimated GFR Random Glucose Lactic Acid 1.4 Calcium Total Bilirubin Direct Bilirubin AST ALT Alkaline Phosphatase Total Protein Albumin TSH COVID-19 (ZURDO) Negative COVID-19 Clin Com See Note Imaging Radiologist's Impressions: Impressions Foot X-Ray 06/20/22 19:09 IMPRESSION: Soft tissue wound/ulcer overlying the lateral aspect of the fifth metatarsal head. No radiographic evidence of advanced osteomyelitis. If continued high clinical concern for acute osteomyelitis suggest either radiographic follow-up or alternatively MRI. Assessment and Plan (1) Diabetic foot ulcer: Status: Acute Plan 51-year-old male with past medical history of diabetes presents to the hospital with diabetic foot wound # Diabetic foot wound - will obtain ESR, CRP and MRI of the foot - IV abx - Follow cultures - Infectious disease consulted # Diabetes - LDSSI - Diabetic diet - continue home insulin # HTN - stable - continue home antihypertensives # Hypothyroidsm - continue levothyroxine given patient's diabetic foot wound requiring IV antibiotics patient will need minimum 2 nights inpatient hospital stay for further management and monitoring Time Spent With Patient Time: Total time managing care of this patient today ____ minutes. Quality Stroke Does the patient have a stroke diagnosis?: No VTE Prior VTE?: No VTE Risk Level:: Medical - moderate - high VTE Device Contraindication: Treatment Not Indicated VTE Drug Contraindication: N/A - Med Ordered
[2022-06-20 23:38] VITALS: BP 125/76; PULSE 86; RESP 13; TEMP 36.9; O2SAT 98
[2022-06-20] MEDS: 0.9 % Sodium Chloride 1,000 ML 100 ML IVCONT (23:42)
[2022-06-20] MEDS: cefEPime HCl 2 GM in 0.9 % Sodium Chloride 50 ML IV (23:43)
[2022-06-20] MEDS: Enoxaparin Sodium 40 MG/0.4 ML SYRINGE SUBCUT (23:45)
[2022-06-20] MEDS: 0.9 % Sodium Chloride Flush 3 ML SYRINGE IVFLUSH (23:47)
[2022-06-21 06:00] VITALS: BP 119/67; PULSE 75; RESP 14; TEMP 36.7; O2SAT 98
[2022-06-21 06:55] LABS: MANUAL DIFF FLAG NO
[2022-06-21 06:59] LABS: Basophils Absolute Auto 0.1 X10*3/uL (0.0-0.2); Basophils Percent Auto 0.5 % (0-2); Eosinophils Absolute Auto 0.3 X10*3/uL (0.0-0.4); Eosinophils Percent Auto 2.8 % (0-4); Hematocrit 32.7 % (42.0-52.0); Hemoglobin 11.4 g/dl (14.0-18.0); Imm Gran Abs Auto 0.03 X10*3/uL (0.00-0.03); Imm Gran Pct Auto 0.3 % (0.0-0.4); Lymphocytes Absolute Auto 1.3 X10*3/uL (1.2-4.9); Lymphocytes Percent Auto 14.3 % (20-40); Mean Corpuscular HGB Conc 34.9 g/dl (31.0-36.0); Mean Corpuscular Hemoglobin 28.7 pg (27.0-33.0); Mean Corpuscular Volume 82.4 fL (80.0-98.0); Mean Platelet Volume 10.6 fL (9.4-12.4); Monocytes Absolute Auto 0.9 X10*3/uL (0.1-1.2); Monocytes Percent Auto 9.6 % (2-11); Neutrophils Absolute Auto 6.6 x10*3/uL (2.0-8.3); Neutrophils Percent Auto 72.5 % (45-73); Platelet Count 193 X10*3/uL (160-400); Red Blood Count 3.97 X10*6/uL (4.60-5.80); Red Cell Distribution Width 12.2 % (11.0-16.0); White Blood Count 9.2 X10*3/uL (4.8-10.8)
[2022-06-21] MEDS: cefEPime HCl 2 GM in 0.9 % Sodium Chloride 50 ML IV ×2 (07:14→15:25)
[2022-06-21 07:15] VITALS: BP 128/74; PULSE 75; RESP 16; TEMP 36.8; O2SAT 97
--- NOTE | 2022-06-21 07:30 | PHA.PROG ---
Addendum entered by Sara Mariscal RPh 06/21/22 07:35: Creatinine came back improved, changed current regimen to 1000mg Q12H with predicted AUC 445mg/L Original Note: Admission Date/Time: June 20, 2022 23:12 Indication: Bone/joint Weight in k.326 kg Adjusted body weight in Kg: Hiram body weight in Kg: Obesity Dosing Indication % IBW: Serum Creatinine - Last 168 Hours 06/20/22 19:28 Creatinine 1.20 Estimated CrCl and GFR - Last 168 Hours 06/20/22 19:28 Estim Creat Clear Calc 85.7 Estimated GFR > 60 Vancomycin Loading Dose: 2000mg X 1 Current Vancomycin Dosing Regimen: 750mg Q12H Vancomycin Monitoring using AUC goal of 400 - 600 range with trough as surrogate marker: 464mg/L Date and Time for next Vancomycin Level to be drawn: 06/22/22 @0600 Pharmacist Comments on Vancomycin Plan: Using boese model, will continue to monitor renal function Vancomycin dosing will take advantage of nubelo as a clinical decision support tool that uses Bayesian modeling to calculate individual patient's pharmacokinetic parameters and forecast the patient's drug concentration time course with the target goal AUC 24 range of 400 - 600 mg/L/hr.
[2022-06-21 07:31] LABS: Anion Gap 10 (12-20); Blood Urea Nitrogen 17 mg/dL (9-16); Calcium 8.3 mg/dL (8.4-10.2); Carbon Dioxide 24 mmol/L (22-29); Chloride 106 mmol/L (96-108); Creatinine Clr Calc Pharmacy 135.3; Estimated Glomerular Filt Rate > 60; Glucose Random 147 mg/dL (60-115); Potassium 3.6 mmol/L (3.3-5.1); Sodium 136 mmol/L (135-145)
[2022-06-21 07:31] LABS: Creatinine Clr Calc Pharmacy 138.9; Estimated Glomerular Filt Rate > 60
[2022-06-21 07:41] LABS: Glucose, Whole Blood 134 mg/dL (60-115)
[2022-06-21 07:55] LABS: C Reactive Protein 9.85 mg/dL (< or = 0.50)
[2022-06-21] MEDS: vancomycin HCL 1,000 MG in 0.9 % Sodium Chloride 250 ML 270 MG IV ×2 (08:24→20:13)
[2022-06-21] MEDS: Insulin Lispro 100 UNIT/ML 3 ML VIAL 30 UNIT SUBCUT (08:25)
[2022-06-21 08:26] LABS: Erythrocyte Sedimentation Rate 67 MM/HR (0-15)
[2022-06-21] MEDS: Levothyroxine Sodium 150 MCG TABLET PO (08:26)
[2022-06-21] MEDS: Cholecalciferol (Vitamin D3) 25 MCG TABLET 50 MCG PO (09:17)
[2022-06-21] MEDS: lisinopriL 10 MG TABLET PO (09:17)
[2022-06-21] MEDS: Gabapentin 100 MG CAPSULE PO ×2 (09:18→17:25)
[2022-06-21] MEDS: hydroCHLOROthiazide 25 MG TABLET PO (09:18)
[2022-06-21] MEDS: Ezetimibe 10 MG TABLET PO (09:18)
[2022-06-21] MEDS: amLODIPine Besylate 10 MG TABLET PO (09:18)
[2022-06-21] MEDS: Escitalopram Oxalate 10 MG TABLET PO (09:18)
--- NOTE | 2022-06-21 09:23 | PC.NURSE ---
Patient transported to MRI by Tech . patient aware of plan of care .
[2022-06-21] MEDS: Insulin Glargine,Hum.rec.anlog 100 UNIT/ML 10 ML VIAL 28 UNIT SUBCUT (09:45)
[2022-06-21] MEDS: 0.9 % Sodium Chloride 1,000 ML 100 ML IVCONT ×2 (09:46→15:26)
[2022-06-21] MEDS: Fenofibrate 54 MG TABLET PO (10:15)
--- NOTE | 2022-06-21 10:45 | PC.NURSE ---
Report has been given to Felicity . patient ready for transport .
--- NOTE | 2022-06-21 10:46 | PC.NURSE ---
patient assessed with use of medical photographer . patient primarily Rwandan speaking only . марина . heart rate regular 88 beats per minute . breathing even and unlabored . lungs clear throughout . patient morbidly obese , abdomen soft . positive bowel sounds throughout . Dressing on right bottom off foot changed , area cleansed with normal saline , moderate amount off seraseguanous odorous drainage noted on previous dressing . non stick dressing applied and wrapped with cling . Ankle of right leg is red and swollen warm to touch . Provider made aware of findings . patient is aware of plan of care .
--- NOTE | 2022-06-21 11:51 | MHC.CM.PN ---
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 LIVES IN [facility] PER HIS CONTACT [facility]. HE DOES NOT HAVE A SUBSTANCE PROBLEM BUT HAS LIVED THERE FOR 4 YEARS BECAUSE OF HOMELESSNESS. [facility]ING WARP TIER DOES NOT FEEL IT IS SAFE FOR HIM TO RETURN. THIS CM REACHED OUT TO [facility] COMMUNITY NURSE IN CHARGE OF THIS CASE (GEMINI [phone]) WHO SAID THEY WERE AWARE HE NEEDS A HIGHER LEVEL OF CARE AND THAT HIS CURRENT [facility] WAS SEEING HIM DAILY. [facility] HAS BEEN WORKING WITH [facility] TO GET HIM IN FOR STR THEN PLACED WITH AN ADULT FOSTER PROGRAM. REFERRAL WILL BE SENT TO [facility] AND THIS CM WILL F/U WITH [facility] REP FOR [facility].NO HCP ON FILE. COVID VAX X2. USES A CANE FOR MOST MOBILITY. [place] [facility] [place] TO BE DETERMINED, REFERRAL SENT TO [facility].
--- NOTE | 2022-06-21 11:59 | P.PNIM_ITS ---
Subjective Subjective Date of Service: 06/21/22 Interval History: History obtained with certified court interpreter patient is a poor historian denies foot pain, denies loss of sensation to lower extremities, denies fever chills, as per patient noted bleeding from right foot and swelling only on the day of admission, denies headache lightheadedness dizziness. Review of Systems General no headache, no dizziness no fever chills. CVS no chest pain, no palpitation. Respiratory no cough, no sob Gastrointestinal no nausea no vomiting, no abdominal pain Review of Systems: Yes all other systems are reviewed and are negative Physical Exam Vital Signs: Vital Signs: Last Vital Signs Temp 98.3 F 06/21/22 07:15 Pulse 75 06/21/22 07:15 Resp 16 06/21/22 07:15 BP 128/74 06/21/22 07:15 Pulse Ox 97 06/21/22 07:15 O2 Del Method 06/21/22 07:15 BMI result Body Mass Index 34.0 Const: Other: General resting comfortably in no acute distress. Neck supple no JVD. CVS regular rate rhythm, Respiratory lungs clear to auscultation, no respiratory distress, no wheeze, no rhonchi. Gastrointestinal abdomen soft, nontender, bowel sounds audible, no guarding , no rigidity. Extremities right lower extremity positive swelling, positive warmth, open wound plantar surface 5th metatarsal with serosanguineous drainage, with foul odor Neuro nonfocal ,speech clear. Skin no rash Psych appropriate affect Objective Data Active Medications Acetaminophen (Acetaminophen 325 Mg Tablet) 650 mg PO Q6H PRN PRN Reason: Pain, Mild (Pain Scale 1-3) Amlodipine Besylate (Amlodipine Besylate 10 Mg Tablet) 10 mg PO DAILY [facility]; Protocol Last Admin: 06/21/22 09:18 Dose: 10 mg Documented By: NELDA Dextrose (Dextrose 50 % 25 Gm/50 Ml Syringe) 25 gm IVPUSH Q15M PRN; Protocol PRN Reason: per Hypoglycemia Standing Ord. Docusate Sodium (Docusate Sodium 100 Mg Capsule) 100 mg PO DAILY PRN PRN Reason: Constipation Ezetimibe (Ezetimibe 10 Mg Tablet) 10 mg PO DAILY [facility] Last Admin: 06/21/22 09:18 Dose: 10 mg Documented By: NELDA Enoxaparin Sodium (Enoxaparin Sodium 40 Mg/0.4 Ml Syringe) 40 mg SUBCUT Q24H [facility] Last Admin: 06/20/22 23:45 Dose: 40 mg Documented By: SUELLEN Escitalopram Oxalate (Escitalopram Oxalate 10 Mg Tablet) 10 mg PO DAILY [facility] Last Admin: 06/21/22 09:18 Dose: 10 mg Documented By: NELDA Fenofibrate (Fenofibrate 54 Mg Tablet) 54 mg PO DAILY [facility] Last Admin: 06/21/22 10:15 Dose: 54 mg Documented By: NELDA Gabapentin (Gabapentin 100 Mg Capsule) 100 mg PO Q8H [facility] Last Admin: 06/21/22 09:18 Dose: 100 mg Documented By: NELDA Glucose (Glucose Gel 15 Gm Gel..Gram.) 15 gm PO Q15M PRN; Protocol PRN Reason: per Hypoglycemia Standing Ord. Hydrochlorothiazide (Hydrochlorothiazide 25 Mg Tablet) 25 mg PO DAILY [facility]; Pro tocol Last Admin: 06/21/22 09:18 Dose: 25 mg Documented By: NELDA Cefepime HCl 2 gm/ Sodium (Chloride) 50 mls @ 100 mls/hr IV Q8H [facility] Last Infusion: 06/21/22 08:10 Dose: 0 mls/hr Documented By: NELDA Sodium Chloride (Ns) 1,000 mls @ 100 mls/hr IVCONT .Q10H [facility] Last Admin: 06/21/22 09:46 Dose: 100 mls/hr Documented By: NELDA Vancomycin HCl 1,000 mg/ (Sodium Chloride) 270 mls @ 270 mls/hr IV Q12H [facility] Last Infusion: 06/21/22 11:13 Dose: 0 mls/hr Documented By: NELDA Insulin Glargine (Insulin Glargine,Hum.Rec.Anlog 100 Unit/Ml 10 Ml Vial) 28 unit SUBCUT DAILY [facility] Last Admin: 06/21/22 09:45 Dose: 28 unit Documented By: NELDA Insulin Human Lispro (Insulin Lispro 100 Unit/Ml 3 Ml Vial) 30 unit SUBCUT TIDAC [facility] Last Admin: 06/21/22 08:25 Dose: 30 unit Documented By: NELDA Insulin Human Lispro (Insulin Lispro 100 Unit/Ml 3 Ml Vial) 0 unit SUBCUT QIDACHS [facility]; Protocol Last Admin: 06/21/22 08:32 Dose: Not Given Documented By: NELDA Non-Admin Reason: No Insulin Coverage Levothyroxine Sodium (Levothyroxine Sodium 150 Mcg Tablet) 150 mcg PO DAILY@0600 [facility] Last Admin: 06/21/22 08:26 Dose: 150 mcg Documented By: NELDA Lisinopril (Lisinopril 10 Mg Tablet) 10 mg PO DAILY [facility]; Protocol Last Admin: 06/21/22 09:17 Dose: 10 mg Documented By: NELDA Non-Formulary Medication (Simvastatin) 40 mg PO DAILY [facility] Ondansetron HCl (Ondansetron Hcl 4 Mg/2 Ml Vial) 4 mg IVPUSH Q8H PRN PRN Reason: Nausea and Vomiting Pharmacy Consult (Consult Rx Perform Med Rec) 1 each MISCELLANE ONCE PRN PRN Reason: Consult order Pharmacy Consult (Consult Rx Vancomycin Dosing) 1 each MISCELLANE DAILY PRN PRN Reason: Consult order Sodium Chloride (0.9 % Sodium Chloride Flush 3 Ml Syringe) 3 ml IVFLUSH QSHIFT [facility] Last Admin: 06/21/22 08:26 Dose: Not Given Documented By: NELDA Non-Admin Reason: IV Running Vitamin D (Cholecalciferol (Vitamin D3) 25 Mcg Tablet) 50 mcg PO DAILY [facility] Last Admin: 06/21/22 09:17 Dose: 50 mcg Documented By: NELDA Labs CBC & Chem 7: 06/21/22 06:25 06/21/22 06:53 Labs: Laboratory Results - last 24 hr 06/20/22 06/20/22 06/20/22 19:28 19:28 19:33 MCV 82.0 MCH 29.2 MCHC 35.6 RDW 12.3 Plt Count 201 D MPV 10.3 Immature Gran % (Auto) 0.4 Neut % (Auto) 76.5 H Lymph % (Auto) 12.8 L [place] % (Auto) 8.7 Eos % (Auto) 1.3 Baso % (Auto) 0.3 Lymph # (Auto) 1.6 Jess[place] # (Auto) 1.1 Eos # (Auto) 0.2 Baso # (Auto) 0.0 Abs Immat Gran (auto) 0.05 H Absolute Neuts (auto) 9.4 H Absolute Nucleated RBC 0.000 Nucleated RBC % (auto) 0.0 ESR Anion Gap 14 Estim Creat Clear Calc 85.7 Estimated GFR > 60 POC Glucose Random Glucose 267 H Lactic Acid Calcium 8.9 Total Bilirubin 0.8 Direct Bilirubin 0.3 AST 21 ALT 26 Alkaline Phosphatase 74 C-Reactive Protein Total Protein 7.1 Albumin 3.9 TSH 3.49 Cancelled COVID-19 ([facility]) COVID-19 Clin Com 06/20/22 06/20/22 06/21/22 19:33 19:33 06:25 MCV 82.4 MCH 28.7 MCHC 34.9 RDW 12.2 Plt Count 193 MPV 10.6 Immature Gran % (Auto) 0.3 Neut % (Auto) 72.5 Lymph % (Auto) 14.3 L [place] % (Auto) 9.6 Eos % (Auto) 2.8 Baso % (Auto) 0.5 Lymph # (Auto) 1.3 [place] # (Auto) 0.9 Eos # (Auto) 0.3 Baso # (Auto) 0.1 Abs Immat Gran (auto) 0.03 Absolute Neuts (auto) 6.6 Absolute Nucleated RBC 0.000 Nucleated RBC % (auto) 0.0 ESR Anion Gap Estim Creat Clear Calc Estimated GFR POC Glucose Random Glucose Lactic Acid 1.4 Calcium Total Bilirubin Direct Bilirubin AST ALT Alkaline Phosphatase C-Reactive Protein Total Protein Albumin TSH COVID-19 ([facility]) Negative COVID-19 Clin Com See Note 06/21/22 06/21/22 06/21/22 06:25 06:25 06:53 MCV MCH MCHC RDW Plt Count MPV Immature Gran % (Auto) Neut % (Auto) Lymph % (Auto) Jess[place] % (Auto) Eos % (Auto) Baso % (Auto) Lymph # (Auto) [place] # (Auto) Eos # (Auto) Baso # (Auto) Abs Immat Gran (auto) Absolute Neuts (auto) Absolute Nucleated RBC Nucleated RBC % (auto) ESR 67 H Anion Gap 10 L Estim Creat Clear Calc 135.3 138.9 Estimated GFR > 60 > 60 POC Glucose Random Glucose 147 H Lactic Acid Calcium 8.3 L D Total Bilirubin Direct Bilirubin AST ALT Alkaline Phosphatase C-Reactive Protein 9.85 H Total Protein Albumin TSH COVID-19 ([facility]) COVID-19 Clin Com 06/21/22 07:35 MCV MCH MCHC RDW Plt Count MPV Immature Gran % (Auto) Neut % (Auto) Lymph % (Auto) [place] % (Auto) Eos % (Auto) Baso % (Auto) Lymph # (Auto) Jess[place] # (Auto) Eos # (Auto) Baso # (Auto) Abs Immat Gran (auto) Absolute Neuts (auto) Absolute Nucleated RBC Nucleated RBC % (auto) ESR Anion Gap Estim Creat Clear Calc Estimated GFR POC Glucose 134 H Random Glucose Lactic Acid Calcium Total Bilirubin Direct Bilirubin AST ALT Alkaline Phosphatase C-Reactive Protein Total Protein Albumin TSH COVID-19 ([facility]) COVID-19 Clin Com Assessment and Plan (1) Diabetic foot ulcer: Status: Acute Plan 51-year-old male with past medical history of? diabetes presents to the hospital with diabetic foot wound # Diabetic right foot wound with cellulitis - patient is a poor historian denies foot pain but noted swelling and bleeding on day of admission CRP 9.85, ESR pending, WBC improved from 12.200 to 9.2 - foot x-ray showed soft tissue wound/ulcer overlying lateral aspect of the 5th metatarsal head no evidence of osteomyelitis Continue IV vancomycin, and IV cefepime day 1 - Follow blood culture, MRI foot ordered - Infectious disease consulted # Diabetes likely with peripheral neuropathy since patient has no position sense also complaining of numbness - continue Lantus and insulin sliding scale and diabetic diet, follow blood sugar closely # HTN - stable - continue home antihypertensives lisinopril 10 mg, hydrochlorothiazide 25 mg and Norvasc 10 mg daily # Hypothyroidsm - continue? levothyroxine ?given patient's diabetic foot wound requiring IV antibiotics patient will need continued inpatient hospital stay for further management and monitoring Time Spent With Patient Time: Total time managing care of this patient today ____ minutes. Quality Stroke Does the patient have a stroke diagnosis?: No VTE Prior VTE?: No VTE Risk Level:: Medical - moderate - high VTE Device Contraindication: Treatment Not Indicated VTE Drug Contraindication: N/A - Med Ordered
[2022-06-21 13:25] VITALS: BP 117/57; PULSE 72; RESP 18; TEMP 36.6; O2SAT 97
[2022-06-21 14:27] LABS: Glucose, Whole Blood 76 mg/dL (60-115)
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
[2022-06-21 15:12] VITALS: BP 122/70; PULSE 80; RESP 18; TEMP 36.9; O2SAT 97
[2022-06-21] MEDS: 0.9 % Sodium Chloride Flush 3 ML SYRINGE IVFLUSH (15:26)
[2022-06-21 16:15] LABS: Glucose, Whole Blood 145 mg/dL (60-115)
[2022-06-21 18:38] VITALS: BP 132/70; PULSE 87; RESP 16; TEMP 36.7; O2SAT 98
[2022-06-21 19:35] LABS: Glucose, Whole Blood 235 mg/dL (60-115)
[2022-06-21] MEDS: Insulin Lispro 100 UNIT/ML 3 ML VIAL SUBCUT (20:10)
[2022-06-22] MEDS: Gabapentin 100 MG CAPSULE PO ×3 (00:12→15:11)
[2022-06-22] MEDS: Enoxaparin Sodium 40 MG/0.4 ML SYRINGE SUBCUT ×2 (00:12→22:47)
[2022-06-22] MEDS: cefEPime HCl 2 GM in 0.9 % Sodium Chloride 50 ML IV ×4 (00:16→22:47)
[2022-06-22] MEDS: 0.9 % Sodium Chloride 1,000 ML 100 ML IVCONT ×2 (00:17→15:13)
[2022-06-22 03:30] VITALS: BP 138/71; PULSE 80; RESP 16; TEMP 37.2; O2SAT 96
[2022-06-22] MEDS: Levothyroxine Sodium 150 MCG TABLET PO (05:10)
[2022-06-22 06:06] LABS: Vancomycin Trough 10.3 mcg/mL (10.0-20.0)
[2022-06-22 06:09] LABS: Creatinine Clr Calc Pharmacy 138.9; Estimated Glomerular Filt Rate > 60
[2022-06-22 07:07] VITALS: BP 105/55; PULSE 77; RESP 16; TEMP 36.8; O2SAT 97
--- NOTE | 2022-06-22 07:14 | HE.PHANOTE ---
RE: vanco Trough on 06/22 came back at 10.3, increased dose to 1500mg Q12H with predicted AUC of 513mg/L. Next level to be drawn 06/23/22 @0600
[2022-06-22 07:26] LABS: Glucose, Whole Blood 114 mg/dL (60-115)
[2022-06-22] MEDS: amLODIPine Besylate 10 MG TABLET PO (08:36)
[2022-06-22] MEDS: lisinopriL 10 MG TABLET PO (08:36)
[2022-06-22] MEDS: Fenofibrate 54 MG TABLET PO (08:36)
[2022-06-22] MEDS: hydroCHLOROthiazide 25 MG TABLET PO (08:36)
[2022-06-22] MEDS: Escitalopram Oxalate 10 MG TABLET PO (08:36)
[2022-06-22] MEDS: Ezetimibe 10 MG TABLET PO (08:36)
[2022-06-22] MEDS: Cholecalciferol (Vitamin D3) 25 MCG TABLET 50 MCG PO (08:36)
[2022-06-22] MEDS: vancomycin HCL 1,500 MG in 0.9 % Sodium Chloride 500 ML 333.33 MG IV ×2 (08:37→19:31)
[2022-06-22] MEDS: Insulin Lispro 100 UNIT/ML 3 ML VIAL 30 UNIT SUBCUT (08:38)
[2022-06-22] MEDS: Insulin Glargine,Hum.rec.anlog 100 UNIT/ML 10 ML VIAL 28 UNIT SUBCUT (08:38)
[2022-06-22 11:04] LABS: Glucose, Whole Blood 49 mg/dL (60-115)
--- NOTE | 2022-06-22 11:25 | HO.PM.IMPN ---
Subjective Subjective Date of Service: 06/22/22 Interval History: History obtained with motion designer patient is a poor historian denies foot pain, denies loss of sensation to lower extremitie, no pain Review of Systems no pain or fever Physical Exam Vital Signs: Vital Signs: Last Vital Signs Temp 98.3 F 06/22/22 07:07 Pulse 77 06/22/22 07:07 Resp 16 06/22/22 07:07 BP 105/55 L 06/22/22 07:07 Pulse Ox 97 06/22/22 07:07 O2 Del Method 06/22/22 07:07 BMI result Body Mass Index 34.0 Const: Other: General resting comfortably in no acute distress. Neck supple no JVD. CVS regular rate rhythm, Respiratory lungs clear to auscultation, no respiratory distress, no wheeze, no rhonchi. Gastrointestinal abdomen soft, nontender, bowel sounds audible, no guarding , no rigidity. Extremities right lower extremity positive swelling, positive warmth, open wound plantar surface 5th metatarsal with serosanguineous drainage, with foul odor Neuro nonfocal ,speech clear. Skin no rash Psych appropriate affect Objective Data Active Medications Acetaminophen (Acetaminophen 325 Mg Tablet) 650 mg PO Q6H PRN PRN Reason: Pain, Mild (Pain Scale 1-3) Amlodipine Besylate (Amlodipine Besylate 10 Mg Tablet) 10 mg PO DAILY [facility]; Protocol Last Admin: 06/22/22 08:36 Dose: 10 mg Documented By: MAMI Dextrose (Dextrose 50 % 25 Gm/50 Ml Syringe) 25 gm IVPUSH Q15M PRN; Protocol PRN Reason: per Hypoglycemia Standing Ord. Docusate Sodium (Docusate Sodium 100 Mg Capsule) 100 mg PO DAILY PRN PRN Reason: Constipation Ezetimibe (Ezetimibe 10 Mg Tablet) 10 mg PO DAILY [facility] Last Admin: 06/22/22 08:36 Dose: 10 mg Documented By: MAMI Enoxaparin Sodium (Enoxaparin Sodium 40 Mg/0.4 Ml Syringe) 40 mg SUBCUT Q24H [facility] Last Admin: 06/22/22 00:12 Dose: 40 mg Documented By: ANDREA Escitalopram Oxalate (Escitalopram Oxalate 10 Mg Tablet) 10 mg PO DAILY [facility] Last Admin: 06/22/22 08:36 Dose: 10 mg Documented By: MAMI Fenofibrate (Fenofibrate 54 Mg Tablet) 54 mg PO DAILY [facility] Last Admin: 06/22/22 08:36 Dose: 54 mg Documented By: MAMI Gabapentin (Gabapentin 100 Mg Capsule) 100 mg PO Q8H [facility] Last Admin: 06/22/22 08:36 Dose: 100 mg Documented By: MAMI Glucose (Glucose Gel 15 Gm Gel..Gram.) 15 gm PO Q15M PRN; Protocol PRN Reason: per Hypoglycemia Standing Ord. Hydrochlorothiazide (Hydrochlorothiazide 25 Mg Tablet) 25 mg PO DAILY [facility]; Protocol Last Admin: 06/22/22 08:36 Dose: 25 mg Documented By: MAMI Cefepime HCl 2 gm/ Sodium (Chloride) 50 mls @ 100 mls/hr IV Q8H [facility] Last Infusion: 06/22/22 08:45 Dose: 0 mls/hr Documented By: MAMI Sodium Chloride (Ns) 1,000 mls @ 100 mls/hr IVCONT .Q10H [facility] Last Admin: 06/22/22 00:17 Dose: 100 mls/hr Documented By: ANDREA Vancomycin HCl 1,500 mg/ (Sodium Chloride) 500 mls @ 333.333 mls/hr IV Q12H [facility] Last Admin: 06/22/22 08:37 Dose: 333.33 mls/hr Documented By: MAMI Insulin Glargine (Insulin Glargine,Hum.Rec.Anlog 100 Unit/Ml 10 Ml Vial) 28 unit SUBCUT DAILY [facility] Last Admin: 06/22/22 08:38 Dose: 28 unit Documented By: MAMI Insulin Human Lispro (Insulin Lispro 100 Unit/Ml 3 Ml Vial) 30 unit SUBCUT TIDAC [facility] Last Admin: 06/22/22 11:11 Dose: Not Given Documented By: MAMI Non-Admin Reason: Physician Held Med Insulin Human Lispro (Insulin Lispro 100 Unit/Ml 3 Ml Vial) 0 unit SUBCUT QIDACHS [facility]; Protocol Last Admin: 06/22/22 11:12 Dose: Not Given Documented By: MAMI Non-Admin Reason: No Insulin Coverage Levothyroxine Sodium (Levothyroxine Sodium 150 Mcg Tablet) 150 mcg PO DAILY@0600 [facility] Last Admin: 06/22/22 05:10 Dose: 150 mcg Documented By: JOSE-CRISPINLM Lisinopril (Lisinopril 10 Mg Tablet) 10 mg PO DAILY [facility]; Protocol Last Admin: 06/22/22 08:36 Dose: 10 mg Documented By: MAMI Non-Formulary Medication (Simvastatin) 40 mg PO DAILY [facility] Ondansetron HCl (Ondansetron Hcl 4 Mg/2 Ml Vial) 4 mg IVPUSH Q8H PRN PRN Reason: Nausea and Vomiting Pharmacy Consult (Consult Rx Perform Med Rec) 1 each MISCELLANE ONCE PRN PRN Reason: Consult order Pharmacy Consult (Consult Rx Vancomycin Dosing) 1 each MISCELLANE DAILY PRN PRN Reason: Consult order Sodium Chloride (0.9 % Sodium Chloride Flush 3 Ml Syringe) 3 ml IVFLUSH QSHIFT [facility] Last Admin: 06/22/22 08:40 Dose: Not Given Documented By: MAMI Non-Admin Reason: IV Running Vitamin D (Cholecalciferol (Vitamin D3) 25 Mcg Tablet) 50 mcg PO DAILY [facility] Last Admin: 06/22/22 08:36 Dose: 50 mcg Documented By: MAMI Labs CBC & Chem 7: 06/21/22 06:25 06/22/22 05:10 Labs: Laboratory Results - last 24 hr 06/21/22 06/21/22 06/21/22 13:30 16:08 19:07 Estim Creat Clear Calc Estimated GFR POC Glucose 76 145 H 235 H Vancomycin Trough 06/22/22 06/22/22 06/22/22 05:10 05:10 07:12 Estim Creat Clear Calc 138.9 Estimated GFR > 60 POC Glucose 114 Vancomycin Trough 10.3 06/22/22 11:02 Estim Creat Clear Calc Estimated GFR POC Glucose 49 L* Vancomycin Trough Microbiology Microbiology Results: Microbiology 06/20/22 19:33 Blood Culture - Preliminary Blood - Venous No growth after 24 hours. 06/20/22 19:28 Blood Culture - Preliminary Blood - Venous No growth after 24 hours. Assessment and Plan (1) Diabetic foot ulcer: Status: Acute Plan 51-year-old male with past medical history of? diabetes presents to the hospital with diabetic foot wound # Diabetic right foot wound with cellulitis - patient is a poor historian denies foot pain but noted swelling and bleeding on day of admission CRP 9.85, ESR pending, WBC improved from 12.200 to 9.2 - foot x-ray showed soft tissue wound/ulcer overlying lateral aspect of the 5th metatarsal head no evidence of osteomyelitis -MRI distorted by motion artifact ? osteo, recommendation to repeat vs [facility] Continue IV vancomycin, and IV cefepime day 2 - Follow blood culture, MRI foot ordered - Infectious disease consulted pending # Diabetes likely with peripheral neuropathy since patient has no position sense also complaining of numbness - continue Lantus and insulin sliding scale and diabetic diet, follow blood sugar closely # HTN - stable - continue home antihypertensives lisinopril 10 mg, hydrochlorothiazide 25 mg and Norvasc 10 mg daily # Hypothyroidsm - continue? levothyroxine ?given patient's diabetic foot wound requiring IV antibiotics patient will need continued inpatient hospital stay for further management and monitoring Time Spent With Patient Time: Total time managing care of this patient today ____ minutes. Quality Stroke Does the patient have a stroke diagnosis?: No VTE Prior VTE?: No VTE Risk Level:: Medical - moderate - high VTE Device Contraindication: Treatment Not Indicated VTE Drug Contraindication: N/A - Med Ordered
[2022-06-22 11:40] LABS: Glucose, Whole Blood 55 mg/dL (60-115)
[2022-06-22] MEDS: Glucose Gel 15 GM GEL..GRAM. PO (11:45)
[2022-06-22 12:27] LABS: Glucose, Whole Blood 67 mg/dL (60-115)
--- NOTE | 2022-06-22 13:53 | MHC.CM.PN ---
[facility] REVIEWED, PER HOSPITALIST PT AWAITING ID FOR IV VS PO ABX, PT WILL ALSO NEED PT EVAL PRIOR TO D/C FOR STR HE IS UNABLE TO RETURN TO [facility], PT HAS BEEN APPROVED FOR ADULT FOSTER CARE AND FAMILIES ARE BEING INTERVIEWED AND PT WILL D/C INTO ADF WHEN CLEARED FROM STR, [facility] IS FOLLOWING, CM WILL CONT TO FOLLOW D/C NEEDS.
[2022-06-22 15:06] VITALS: BP 118/66; PULSE 76; RESP 18; TEMP 36.3; O2SAT 97
--- NOTE | 2022-06-22 16:07 | P.CNID_ITS ---
History of Present Illness Data of Consult Service Date: 06/22/22 Requesting physician: Yony Barber Primary Care Provider: Adwoa Fan MD HPI Reason for consult: hyperglycemia,right foot wound He has right foot wound for last week and worsening blood sugars. He has no fever or chills. His glucose is 1025. Review of Systems Review of Systems: Yes all other systems are reviewed and are negative [facility] Past Medical History Medical History Acute kidney injury Autoimmune thyroiditis Bilateral hand pain Cataracts, both eyes CHF (congestive heart failure) Cognitive developmental delay Diabetes Diabetic ketoacidosis Edema Essential hypertension HTN (hypertension) Hyperkalemia Hyperlipidemia Hyperlipidemia LDL goal <100 Hyponatremia Hypothyroid Hypovitaminosis D Infection of penis Left foot pain Obesity due to excess calories Proteinuria Right foot pain Right knee pain Type 2 diabetes mellitus with hyperglycemia, with long-term current use of insulin Type 2 diabetes mellitus with other diabetic kidney complication Family History Family History Father HTN (hypertension) Mother Diabetes mellitus Maternal Grandmother Diabetes mellitus Family history: reviewed and not pertinent Surgical History Surgical History Hx of cataract surgery Hx of removal of cyst Social History Social History Household Members: Other Household Members Other:: [facility] Housing: House Housing Other:: [facility] Do you presently have visiting nurse or other home services: No Alcohol intake: never Patient Tobacco Use Status: Never used Tobacco e-Cigarette/Vaping Use: Never Used Second Hand Smoke Exposure: No Substance Use Type: Caffiene service: No Current occupational status: disabled Cognitive needs: Yes Hearing needs: No Vision needs: No Meds Allergies Allergy/AdvReac Type Severity Reaction Status Date / Time atorvastatin [ATORVASTATIN] Allergy Unknown skin Verified 12/27/21 10:50 eruption Active Medications: Current Medications Acetaminophen (Acetaminophen 325 Mg Tablet) 650 mg PO Q6H PRN PRN Reason: Pain, Mild (Pain Scale 1-3) Amlodipine Besylate (Amlodipine Besylate 10 Mg Tablet) 10 mg PO DAILY [facility]; Protocol Last Admin: 06/22/22 08:36 Dose: 10 mg Dextrose (Dextrose 50 % 25 Gm/50 Ml Syringe) 25 gm IVPUSH Q15M PRN; Protocol PRN Reason: per Hypoglycemia Standing Ord. Docusate Sodium (Docusate Sodium 100 Mg Capsule) 100 mg PO DAILY PRN PRN Reason: Constipation Ezetimibe (Ezetimibe 10 Mg Tablet) 10 mg PO DAILY [facility] Last Admin: 06/22/22 08:36 Dose: 10 mg Enoxaparin Sodium (Enoxaparin Sodium 40 Mg/0.4 Ml Syringe) 40 mg SUBCUT Q24H [facility] Last Admin: 06/22/22 00:12 Dose: 40 mg Escitalopram Oxalate (Escitalopram Oxalate 10 Mg Tablet) 10 mg PO DAILY [facility] Last Admin: 06/22/22 08:36 Dose: 10 mg Fenofibrate (Fenofibrate 54 Mg Tablet) 54 mg PO DAILY [facility] Last Admin: 06/22/22 08:36 Dose: 54 mg Gabapentin (Gabapentin 100 Mg Capsule) 100 mg PO Q8H [facility] Last Admin: 06/22/22 15:11 Dose: 100 mg Glucose (Glucose Gel 15 Gm Gel..Gram.) 15 gm PO Q15M PRN; Protocol PRN Reason: per Hypoglycemia Standing Ord. Last Admin: 06/22/22 11:45 Dose: 15 gm Hydrochlorothiazide (Hydrochlorothiazide 25 Mg Tablet) 25 mg PO DAILY [facility]; Protocol Last Admin: 06/22/22 08:36 Dose: 25 mg Cefepime HCl 2 gm/ Sodium (Chloride) 50 mls @ 100 mls/hr IV Q8H [facility] Last Infusion: 06/22/22 15:54 Dose: Infused Sodium Chloride (Ns) 1,000 mls @ 100 mls/hr IVCONT .Q10H [facility] Last Admin: 06/22/22 15:13 Dose: 100 mls/hr Vancomycin HCl 1,500 mg/ (Sodium Chloride) 500 mls @ 333.333 mls/hr IV Q12H [facility] Last Infusion: 06/22/22 11:30 Dose: Infused Insulin Glargine (Insulin Glargine,Hum.Rec.Anlog 100 Unit/Ml 10 Ml Vial) 28 unit SUBCUT DAILY [facility] Last Admin: 06/22/22 08:38 Dose: 28 unit Insulin Human Lispro (Insulin Lispro 100 Unit/Ml 3 Ml Vial) 30 unit SUBCUT TIDAC [facility] Last Admin: 06/22/22 11:11 Dose: Not Given Insulin Human Lispro (Insulin Lispro 100 Unit/Ml 3 Ml Vial) 0 unit SUBCUT QIDACHS [facility]; Protocol Last Admin: 06/22/22 11:12 Dose: Not Given Levothyroxine Sodium (Levothyroxine Sodium 150 Mcg Tablet) 150 mcg PO DAILY@0600 [facility] Last Admin: 06/22/22 05:10 Dose: 150 mcg Lisinopril (Lisinopril 10 Mg Tablet) 10 mg PO DAILY [facility]; Protocol Last Admin: 06/22/22 08:36 Dose: 10 mg Non-Formulary Medication (Simvastatin) 40 mg PO DAILY [facility] Ondansetron HCl (Ondansetron Hcl 4 Mg/2 Ml Vial) 4 mg IVPUSH Q8H PRN PRN Reason: Nausea and Vomiting Pharmacy Consult (Consult Rx Perform Med Rec) 1 each MISCELLANE ONCE PRN PRN Reason: Consult order Pharmacy Consult (Consult Rx Vancomycin Dosing) 1 each MISCELLANE DAILY PRN PRN Reason: Consult order Sodium Chloride (0.9 % Sodium Chloride Flush 3 Ml Syringe) 3 ml IVFLUSH QSHIFT [facility] Last Admin: 06/22/22 15:17 Dose: Not Given Vitamin D (Cholecalciferol (Vitamin D3) 25 Mcg Tablet) 50 mcg PO DAILY [facility] Last Admin: 06/22/22 08:36 Dose: 50 mcg Home Medications Medication Instructions Recorded Confirmed Last Taken Type dulaglutide 1.5 mg/0.5 mL 1.5 mg subcut FR 06/20/22 06/20/22 06/15/22 History subcutaneous pen injector (Trulicity) insulin aspart U-100 100 unit/mL 30 unit subcut TID 06/20/22 06/20/22 06/20/22 History (3 mL) subcutaneous pen (Novolog Flexpen U-100 Insulin aspart) insulin degludec 200 unit/mL (3 40 unit subcut DAILY 06/20/22 06/20/22 06/20/22 History mL) subcutaneous pen (Tresiba FlexTouch U-200 insulin) metformin 500 mg tablet 500 mg PO BIDWM 06/20/22 06/20/22 06/20/22 History Physical Exam Vital Signs: Vital Signs: Last Vital Signs Temp 97.3 F 06/22/22 15:06 Pulse 76 06/22/22 15:06 Resp 18 06/22/22 15:06 BP 118/66 06/22/22 15:06 Pulse Ox 97 06/22/22 15:06 O2 Del Method 06/22/22 15:06 BMI result Body Mass Index 34.0 Const: General: cooperative HEENT: Head: Yes normal to inspection Face and sinus: Yes normal facial exam Mouth: Normal oral and palatal mucosa present Teeth and gingiva: dentition normal Eyes: General: appearance normal, both eyes and all related structures Pupils: Equal, round and reactive pupils present Resp: Effort & Inspection: normal respiratory effort Cardio: Rate: regular rate Rhythm: regular rhythm GI: Palpation (GI): Soft to palpation and nontender : General: Yes no CVA tenderness Back/Spine/Pelvis: Back: no CVA tenderness Skin: General skin exam: no rashes or lesions noted Neuro: General: moves all extremities Cranial nerves: Yes Equal, round and reactive pupils present Extrem: Other: right foot redness and swelling,wrapped Psych: Appearance: grossly normal Results Labs CBC & Chem 7: 06/21/22 06:25 06/22/22 05:10 Labs: BMP 06/22/22 05:10 Creatinine 0.74 Microbiology Microbiology Results: Microbiology 06/20/22 19:33 Blood - Venous Blood Culture - Preliminary No growth after 24 hours. 06/20/22 19:28 Blood - Venous Blood Culture - Preliminary No growth after 24 hours. Assessment and Plan (1) Diabetic foot ulcer: Status: Acute Possible staph or strep Possible gram negative or anerobes source of infection Plan May continue Cefepime and add Flagyl. Vancomycin if not responding Repeat MRI Await cultures Probable need six weeks IV antibiotics. Time Spent With Patient Time: Total time managing care of this patient today ____ minutes.
[2022-06-22 16:39] LABS: Glucose, Whole Blood 128 mg/dL (60-115)
[2022-06-22] MEDS: metroNIDAZOLE/NS 500 MG/100 ML PIGGYBACK 100 MG IV (17:48)
[2022-06-22 19:03] VITALS: BP 111/63; PULSE 83; RESP 18; TEMP 36.4; O2SAT 96
[2022-06-22] MEDS: 0.9 % Sodium Chloride Flush 3 ML SYRINGE IVFLUSH (19:31)
[2022-06-22 21:56] LABS: Glucose, Whole Blood 238 mg/dL (60-115)
[2022-06-22] MEDS: Insulin Lispro 100 UNIT/ML 3 ML VIAL SUBCUT (21:56)
[2022-06-23] MEDS: Gabapentin 100 MG CAPSULE PO ×3 (00:11→16:47)
[2022-06-23 03:16] VITALS: BP 117/68; PULSE 81; RESP 16; TEMP 36.6; O2SAT 95
[2022-06-23] MEDS: Levothyroxine Sodium 150 MCG TABLET PO (05:00)
[2022-06-23] MEDS: metroNIDAZOLE/NS 500 MG/100 ML PIGGYBACK 100 MG IV ×2 (05:00→18:00)
[2022-06-23] MEDS: 0.9 % Sodium Chloride 1,000 ML 100 ML IVCONT (05:06)
[2022-06-23 06:15] LABS: Vancomycin Trough 15.8 mcg/mL (10.0-20.0)
[2022-06-23 06:20] LABS: Creatinine Clr Calc Pharmacy 137.1; Estimated Glomerular Filt Rate > 60
[2022-06-23 07:42] VITALS: BP 130/71; PULSE 78; RESP 18; TEMP 37.3; O2SAT 97
[2022-06-23 07:57] LABS: Glucose, Whole Blood 112 mg/dL (60-115)
--- NOTE | 2022-06-23 08:10 | P.PNIM_ITS ---
Subjective Subjective Date of Service: 06/25/22 Interval History: f/u diabetic foot ulcer ? osteo no pain, no fever, poor historian Review of Systems no pain or fever Physical Exam Vital Signs: Vital Signs: Last Vital Signs Temp 99.1 F 06/23/22 07:42 Pulse 78 06/23/22 07:42 Resp 18 06/23/22 07:42 BP 130/71 06/23/22 07:42 Pulse Ox 97 06/23/22 07:42 O2 Del Method 06/23/22 07:42 BMI result Body Mass Index 34.0 Const: Other: General resting comfortably in no acute distress. Neck supple no JVD. CVS regular rate rhythm, Respiratory lungs clear to auscultation, no respiratory distress, no wheeze, no rhonchi. Gastrointestinal abdomen soft, nontender, bowel sounds audible, no guarding , no rigidity. Extremities right lower extremity positive swelling, positive warmth, open wound plantar surface 5th metatarsal with serosanguineous drainage, with foul odor Neuro nonfocal ,speech clear. Skin no rash Psych appropriate affect Objective Data Active Medications Acetaminophen (Acetaminophen 325 Mg Tablet) 650 mg PO Q6H PRN PRN Reason: Pain, Mild (Pain Scale 1-3) Amlodipine Besylate (Amlodipine Besylate 10 Mg Tablet) 10 mg PO DAILY [facility]; Protocol Last Admin: 06/22/22 08:36 Dose: 10 mg Documented By: MAMI Dextrose (Dextrose 50 % 25 Gm/50 Ml Syringe) 25 gm IVPUSH Q15M PRN; Protocol PRN Reason: per Hypoglycemia Standing Ord. Docusate Sodium (Docusate Sodium 100 Mg Capsule) 100 mg PO DAILY PRN PRN Reason: Constipation Ezetimibe (Ezetimibe 10 Mg Tablet) 10 mg PO DAILY [facility] Last Admin: 06/22/22 08:36 Dose: 10 mg Documented By: MAMI Enoxaparin Sodium (Enoxaparin Sodium 40 Mg/0.4 Ml Syringe) 40 mg SUBCUT Q24H [facility] Last Admin: 06/22/22 22:47 Dose: 40 mg Documented By: CASTILM Escitalopram Oxalate (Escitalopram Oxalate 10 Mg Tablet) 10 mg PO DAILY [facility] Last Admin: 06/22/22 08:36 Dose: 10 mg Documented By: MAMI Fenofibrate (Fenofibrate 54 Mg Tablet) 54 mg PO DAILY [facility] Last Admin: 06/22/22 08:36 Dose: 54 mg Documented By: MAMI Gabapentin (Gabapentin 100 Mg Capsule) 100 mg PO Q8H [facility] Last Admin: 06/23/22 00:11 Dose: 100 mg Documented By: JORGE Glucose (Glucose Gel 15 Gm Gel..Gram.) 15 gm PO Q15M PRN; Protocol PRN Reason: per Hypoglycemia Standing Ord. Last Admin: 06/22/22 11:45 Dose: 15 gm Documented By: MAMI Hydrochlorothiazide (Hydrochlorothiazide 25 Mg Tablet) 25 mg PO DAILY [facility]; Protocol Last Admin: 06/22/22 08:36 Dose: 25 mg Documented By: MAMI Cefepime HCl 2 gm/ Sodium (Chloride) 50 mls @ 100 mls/hr IV Q8H [facility] Last Infusion: 06/22/22 23:34 Dose: 0 mls/hr Documented By: JORGE Metronidazole (Flagyl) 500 mg in 100 mls @ 100 mls/hr IV Q12H [facility] Last Infusion: 06/23/22 06:14 Dose: 0 mls/hr Documented By: JORGE Vancomycin HCl 1,250 mg/ (Sodium Chloride) 250 mls @ 166.667 mls/hr IV Q12H [facility] Insulin Glargine (Insulin Glargine,Hum.Rec.Anlog 100 Unit/Ml 10 Ml Vial) 28 unit SUBCUT DAILY [facility] Last Admin: 06/22/22 08:38 Dose: 28 unit Documented By: MAMI Insulin Human Lispro (Insulin Lispro 100 Unit/Ml 3 Ml Vial) 30 unit SUBCUT TIDAC [facility] Last Admin: 06/23/22 08:05 Dose: Not Given Documented By: CLIFFORD Non-Admin Reason: Physician Held Med Insulin Human Lispro (Insulin Lispro 100 Unit/Ml 3 Ml Vial) 0 unit SUBCUT QIDACHS [facility]; Protocol Last Admin: 06/23/22 08:02 Dose: Not Given Documented By: CLIFFORD Non-Admin Reason: No Insulin Coverage Levothyroxine Sodium (Levothyroxine Sodium 150 Mcg Tablet) 150 mcg PO DAILY@0600 [facility] Last Admin: 06/23/22 05:00 Dose: 150 mcg Documented By: JORGE Lisinopril (Lisinopril 10 Mg Tablet) 10 mg PO DAILY [facility]; Protocol Last Admin: 06/22/22 08:36 Dose: 10 mg Documented By: MAMI Non-Formulary Medication (Simvastatin) 40 mg PO DAILY [facility] Ondansetron HCl (Ondansetron Hcl 4 Mg/2 Ml Vial) 4 mg IVPUSH Q8H PRN PRN Reason: Nausea and Vomiting Pharmacy Consult (Consult Rx Perform Med Rec) 1 each MISCELLANE ONCE PRN PRN Reason: Consult order Pharmacy Consult (Consult Rx Vancomycin Dosing) 1 each MISCELLANE DAILY PRN PRN Reason: Consult order Sodium Chloride (0.9 % Sodium Chloride Flush 3 Ml Syringe) 3 ml IVFLUSH QSHIFT [facility] Last Admin: 06/22/22 19:31 Dose: 3 ml Documented By: ROMINA Vitamin D (Cholecalciferol (Vitamin D3) 25 Mcg Tablet) 50 mcg PO DAILY [facility] Last Admin: 06/22/22 08:36 Dose: 50 mcg Documented By: MAMI Labs CBC & Chem 7: 06/21/22 06:25 06/25/22 05:19 Labs: Laboratory Results - last 24 hr 06/22/22 06/22/22 06/22/22 11:02 11:36 12:24 Estim Creat Clear Calc Estimated GFR POC Glucose 49 L* 55 L* 67 Vancomycin Trough 06/22/22 06/22/22 06/23/22 16:34 21:43 05:39 Estim Creat Clear Calc Estimated GFR POC Glucose 128 H 238 H Vancomycin Trough 15.8 06/23/22 06/23/22 05:39 07:45 Estim Creat Clear Calc 137.1 Estimated GFR > 60 POC Glucose 112 Vancomycin Trough Microbiology Microbiology Results: Microbiology 06/20/22 19:33 Blood Culture - Preliminary Blood - Venous No growth after 48 hours. 06/20/22 19:28 Blood Culture - Preliminary Blood - Venous No growth after 48 hours. Assessment and Plan (1) Diabetic foot ulcer: Status: Acute Plan 51-year-old male with past medical history of? diabetes presents to the hospital with diabetic foot wound # Diabetic right foot wound with cellulitis - patient is a poor historian denies foot pain but noted swelling and bleeding on day of admission CRP 9.85, ESR pending, WBC improved from 12.200 to 9.2 - foot x-ray showed soft tissue wound/ulcer overlying lateral aspect of the 5th metatarsal head no evidence of osteomyelitis -MRI distorted by motion artifact ? osteo, recommendation to repeat vs CERETEC ID recommends Cefepim and Flagyl Vanco if not responding and repeat MRI, and will probably need IV Abx for 6 weeks -BCx negative # Diabetes likely with peripheral neuropathy since patient has no position sense also complaining of numbness - continue Lantus and insulin sliding scale and diabetic diet, follow blood sugar closely # HTN - stable - continue home antihypertensives lisinopril 10 mg, hydrochlorothiazide 25 mg and Norvasc 10 mg daily # Hypothyroidsm - continue? levothyroxine ?given patient's diabetic foot wound requiring IV antibiotics patient will need continued inpatient hospital stay for further management and monitoring Time Spent With Patient Time: Total time managing care of this patient today ____ minutes. Quality Stroke Does the patient have a stroke diagnosis?: No VTE Prior VTE?: No VTE Risk Level:: Medical - moderate - high VTE Device Contraindication: Treatment Not Indicated VTE Drug Contraindication: N/A - Med Ordered
[2022-06-23] MEDS: hydroCHLOROthiazide 25 MG TABLET PO (08:20)
[2022-06-23] MEDS: Cholecalciferol (Vitamin D3) 25 MCG TABLET 50 MCG PO (08:21)
[2022-06-23] MEDS: 0.9 % Sodium Chloride Flush 3 ML SYRINGE IVFLUSH (08:21)
[2022-06-23] MEDS: amLODIPine Besylate 10 MG TABLET PO (08:21)
[2022-06-23] MEDS: Fenofibrate 54 MG TABLET PO (08:21)
[2022-06-23] MEDS: Escitalopram Oxalate 10 MG TABLET PO (08:21)
[2022-06-23] MEDS: Ezetimibe 10 MG TABLET PO (08:21)
[2022-06-23] MEDS: cefEPime HCl 2 GM in 0.9 % Sodium Chloride 50 ML IV ×2 (08:21→15:01)
[2022-06-23] MEDS: lisinopriL 10 MG TABLET PO (08:21)
[2022-06-23] MEDS: Insulin Glargine,Hum.rec.anlog 100 UNIT/ML 10 ML VIAL 28 UNIT SUBCUT (08:22)
[2022-06-23] MEDS: vancomycin HCL 1,250 MG in 0.9 % Sodium Chloride 250 ML 166.67 MG IV ×2 (09:15→20:42)
[2022-06-23 11:30] LABS: Glucose, Whole Blood 212 mg/dL (60-115)
[2022-06-23] MEDS: Insulin Lispro 100 UNIT/ML 3 ML VIAL SUBCUT ×3 (12:09→20:52)
[2022-06-23 16:40] LABS: Glucose, Whole Blood 139 mg/dL (60-115)
[2022-06-23 16:47] VITALS: BP 169/82; PULSE 65; RESP 20; TEMP 36.5; O2SAT 95
[2022-06-23 19:44] VITALS: BP 148/83; PULSE 88; RESP 16; O2SAT 94
[2022-06-23 20:39] LABS: Glucose, Whole Blood 167 mg/dL (60-115)
[2022-06-24] MEDS: cefEPime HCl 2 GM in 0.9 % Sodium Chloride 50 ML IV ×4 (00:28→22:48)
[2022-06-24] MEDS: Gabapentin 100 MG CAPSULE PO ×3 (00:29→16:58)
[2022-06-24] MEDS: Enoxaparin Sodium 40 MG/0.4 ML SYRINGE SUBCUT ×2 (00:29→22:48)
[2022-06-24 03:21] VITALS: BP 114/63; PULSE 84; RESP 16; TEMP 37.1; O2SAT 97
[2022-06-24] MEDS: Levothyroxine Sodium 150 MCG TABLET PO (05:13)
[2022-06-24] MEDS: metroNIDAZOLE/NS 500 MG/100 ML PIGGYBACK 100 MG IV ×2 (05:13→16:59)
[2022-06-24 06:41] LABS: Creatinine Clr Calc Pharmacy 138.9; Estimated Glomerular Filt Rate > 60
[2022-06-24 07:18] VITALS: BP 138/73; PULSE 80; RESP 16; TEMP 36.5; O2SAT 95
[2022-06-24 07:40] LABS: Glucose, Whole Blood 104 mg/dL (60-115)
[2022-06-24] MEDS: Ezetimibe 10 MG TABLET PO (08:42)
[2022-06-24] MEDS: Escitalopram Oxalate 10 MG TABLET PO (08:42)
[2022-06-24] MEDS: hydroCHLOROthiazide 25 MG TABLET PO (08:42)
[2022-06-24] MEDS: lisinopriL 10 MG TABLET PO (08:42)
[2022-06-24] MEDS: Fenofibrate 54 MG TABLET PO (08:42)
[2022-06-24] MEDS: Cholecalciferol (Vitamin D3) 25 MCG TABLET 50 MCG PO (08:42)
[2022-06-24] MEDS: amLODIPine Besylate 10 MG TABLET PO (08:42)
[2022-06-24] MEDS: vancomycin HCL 1,250 MG in 0.9 % Sodium Chloride 250 ML 166.67 MG IV (08:43)
[2022-06-24] MEDS: Insulin Glargine,Hum.rec.anlog 100 UNIT/ML 10 ML VIAL 28 UNIT SUBCUT (08:43)
--- NOTE | 2022-06-24 11:15 | P.PNIM_ITS ---
Subjective Subjective Date of Service: 06/24/22 Interval History: Resting comfortably in bed offers no acute complaints of pain, tolerating diet, with no nausea, no vomiting, no abdominal pain, no diarrhea, denies fever chills, no acute issues overnight. Review of Systems General no headache no dizziness no fever chills. CVS no chest pain, no palpitation. Respiratory no cough, no sputum production no respiratory distress. Gastrointestinal no nausea no vomiting, no abdominal pain Review of Systems: Yes all other systems are reviewed and are negative Physical Exam Vital Signs: Vital Signs: Last Vital Signs Temp 97.7 F 06/24/22 07:18 Pulse 80 06/24/22 07:18 Resp 16 06/24/22 07:18 BP 138/73 06/24/22 07:18 Pulse Ox 95 06/24/22 07:18 O2 Del Method 06/24/22 07:18 BMI result Body Mass Index 34.0 Const: Other: General resting co mfortably in no ac [place] distress.? Nec k? supple no JVD. CVS? regular rate rhythm, Respirator y lungs clear to a uscultation, no re spiratory distress , no wheeze, no rh onchi. Gastrointes tinal abdomen soft , non tender, cathy l sounds audible, no guarding , no r igidity. Extremiti es right lower ext remity swelling, w armth, improved, o pen wound plantar surface 5th metata rsal with no drain age Neuro nonfocal ,speech clear. Sk in no rash Psych a ppropriate affect Objective Data Active Medications Acetaminophen (Acetaminophen 325 Mg Tablet) 650 mg PO Q6H PRN PRN Reason: Pain, Mild (Pain Scale 1-3) Amlodipine Besylate (Amlodipine Besylate 10 Mg Tablet) 10 mg PO DAILY [facility]; Protocol Last Admin: 06/24/22 08:42 Dose: 10 mg Documented By: JOSETTE Dextrose (Dextrose 50 % 25 Gm/50 Ml Syringe) 25 gm IVPUSH Q15M PRN; Protocol PRN Reason: per Hypoglycemia Standing Ord. Docusate Sodium (Docusate Sodium 100 Mg Capsule) 100 mg PO DAILY PRN PRN Reason: Constipation Ezetimibe (Ezetimibe 10 Mg Tablet) 10 mg PO DAILY [facility] Last Admin: 06/24/22 08:42 Dose: 10 mg Documented By: JOSETTE Enoxaparin Sodium (Enoxaparin Sodium 40 Mg/0.4 Ml Syringe) 40 mg SUBCUT Q24H [facility] Last Admin: 06/24/22 00:29 Dose: 40 mg Documented By: FLAKITO Escitalopram Oxalate (Escitalopram Oxalate 10 Mg Tablet) 10 mg PO DAILY [facility] Last Admin: 06/24/22 08:42 Dose: 10 mg Documented By: JOSETTE Fenofibrate (Fenofibrate 54 Mg Tablet) 54 mg PO DAILY [facility] Last Admin: 06/24/22 08:42 Dose: 54 mg Documented By: JOSETTE Gabapentin (Gabapentin 100 Mg Capsule) 100 mg PO Q8H [facility] Last Admin: 06/24/22 08:42 Dose: 100 mg Documented By: JOSETTE Glucose (Glucose Gel 15 Gm Gel..Gram.) 15 gm PO Q15M PRN; Protocol PRN Reason: per Hypoglycemia Standing Ord. Last Admin: 06/22/22 11:45 Dose: 15 gm Documented By: MAMI Hydrochlorothiazide (Hydrochlorothiazide 25 Mg Tablet) 25 mg PO DAILY [facility]; Protocol Last Admin: 06/24/22 08:42 Dose: 25 mg Documented By: JOSETTE Cefepime HCl 2 gm/ Sodium (Chloride) 50 mls @ 100 mls/hr IV Q8H [facility] Last Infusion: 06/24/22 07:15 Dose: 100 mls/hr Documented By: JOSETTE Metronidazole (Flagyl) 500 mg in 100 mls @ 100 mls/hr IV Q12H [facility] Last Infusion: 06/24/22 06:35 Dose: 100 mls/hr Documented By: FLAKITO Vancomycin HCl 1,250 mg/ (Sodium Chloride) 250 mls @ 166.667 mls/hr IV Q12H [facility] Last Infusion: 06/24/22 10:20 Dose: 166.67 mls/hr Documented By: JOSETTE Insulin Glargine (Insulin Glargine,Hum.Rec.Anlog 100 Unit/Ml 10 Ml Vial) 28 unit SUBCUT DAILY [facility] Last Admin: 06/24/22 08:43 Dose: 28 unit Documented By: JOSETTE Insulin Human Lispro (Insulin Lispro 100 Unit/Ml 3 Ml Vial) 0 unit SUBCUT QIDACHS [facility]; Protocol Last Admin: 06/24/22 08:23 Dose: Not Given Documented By: JOSETTE Non-Admin Reason: No Insulin Coverage Insulin Human Lispro (Insulin Lispro 100 Unit/Ml 3 Ml Vial) 5 unit SUBCUT TIDAC [facility] Last Admin: 06/24/22 08:23 Dose: Not Given Documented By: JOSETTE Non-Admin Reason: No Insulin Coverage Levothyroxine Sodium (Levothyroxine Sodium 150 Mcg Tablet) 150 mcg PO DAILY@0600 [facility] Last Admin: 06/24/22 05:13 Dose: 150 mcg Documented By: FLAKITO Lisinopril (Lisinopril 10 Mg Tablet) 10 mg PO DAILY [facility]; Protocol Last Admin: 06/24/22 08:42 Dose: 10 mg Documented By: JOSETTE Non-Formulary Medication (Simvastatin) 40 mg PO DAILY [facility] Ondansetron HCl (Ondansetron Hcl 4 Mg/2 Ml Vial) 4 mg IVPUSH Q8H PRN PRN Reason: Nausea and Vomiting Pharmacy Consult (Consult Rx Perform Med Rec) 1 each MISCELLANE ONCE PRN PRN Reason: Consult order Pharmacy Consult (Consult Rx Vancomycin Dosing) 1 each MISCELLANE DAILY PRN PRN Reason: Consult order Sodium Chloride (0.9 % Sodium Chloride Flush 3 Ml Syringe) 3 ml IVFLUSH QSHIFT [facility] Last Admin: 06/24/22 10:20 Dose: Not Given Documented By: JOSETTE Non-Admin Reason: IV Running Vitamin D (Cholecalciferol (Vitamin D3) 25 Mcg Tablet) 50 mcg PO DAILY [facility] Last Admin: 06/24/22 08:42 Dose: 50 mcg Documented By: JOSETTE Labs CBC & Chem 7: 06/21/22 06:25 06/24/22 05:33 Labs: Laboratory Results - last 24 hr 06/23/22 06/23/22 06/23/22 10:58 16:22 20:30 Estim Creat Clear Calc Estimated GFR POC Glucose 212 H 139 H 167 H 06/24/22 06/24/22 05:33 07:22 Estim Creat Clear Calc 138.9 Estimated GFR > 60 POC Glucose 104 Assessment and Plan (1) Diabetic foot ulcer: Status: Acute Plan 51-year-old male with past medical history of? diabetes presents to the hospital with diabetic foot wound # Diabetic right foot wound with cellulitis Right leg swelling, warmth and redness improved, ? CRP 9.85, ESR 67, WBC normalized from 12.200 to 9.2, blood cultures negative foot x-ray showed soft tissue wound/ulcer overlying lateral aspect of the 5th metatarsal head no evidence of osteomyelitis MRI distorted by motion artifact ? osteo, recommendation to repeat MRI vs CERETEC ? ID recommends Cefepim and Flagyl , since noted to have improvement in leg examination will hold vanco, repeat MRI at a.m. if osteo will need 6 weeks of IV antibiotic Will repeat ESR and CRP # Diabetes likely with peripheral neuropathy since patient has no position sense also complaining of numbness - continue Lantus and insulin sliding scale and diabetic diet, stable blood sugar # HTN - stable - continue home antihypertensives lisinopril 10 mg, hydrochlorothiazide 25 mg and Norvasc 10 mg daily # Hypothyroidsm - continue? levothyroxine ?given patient's diabetic foot wound requiring IV antibiotics patient will need continued inpatient hospital stay for further management and monitoring Time Spent With Patient Time: Total time managing care of this patient today ____ minutes. Quality Stroke Does the patient have a stroke diagnosis?: No VTE Prior VTE?: No VTE Risk Level:: Medical - moderate - high VTE Device Contraindication: Treatment Not Indicated VTE Drug Contraindication: N/A - Med Ordered
[2022-06-24 11:30] LABS: Glucose, Whole Blood 205 mg/dL (60-115)
[2022-06-24] MEDS: Insulin Lispro 100 UNIT/ML 3 ML VIAL SUBCUT ×4 (11:42→21:05)
[2022-06-24 16:50] LABS: Glucose, Whole Blood 105 mg/dL (60-115)
[2022-06-24 17:58] VITALS: BP 195/65; PULSE 80; RESP 20; TEMP 36.6; O2SAT 95
[2022-06-24 19:05] LABS: Vancomycin Trough 11.2 mcg/mL (10.0-20.0)
[2022-06-24] MEDS: vancomycin HCL 1,500 MG in 0.9 % Sodium Chloride 500 ML 333.33 MG IV (20:07)
[2022-06-24] MEDS: 0.9 % Sodium Chloride Flush 3 ML SYRINGE IVFLUSH (20:07)
[2022-06-24 20:38] LABS: Glucose, Whole Blood 191 mg/dL (60-115)
[2022-06-24 21:08] VITALS: BP 128/85; PULSE 82; RESP 20; TEMP 37.1; O2SAT 94
[2022-06-25] MEDS: Gabapentin 100 MG CAPSULE PO ×3 (00:41→16:26)
[2022-06-25 03:24] VITALS: BP 158/87; PULSE 75; RESP 19; TEMP 36.8; O2SAT 100
[2022-06-25] MEDS: metroNIDAZOLE/NS 500 MG/100 ML PIGGYBACK 100 MG IV ×2 (05:41→17:47)
[2022-06-25] MEDS: Levothyroxine Sodium 150 MCG TABLET PO (05:41)
[2022-06-25 06:22] LABS: C Reactive Protein 5.02 mg/dL (< or = 0.50); Creatinine Clr Calc Pharmacy 125.4; Estimated Glomerular Filt Rate > 60
[2022-06-25 07:13] VITALS: BP 146/74; PULSE 74; RESP 16; TEMP 36.2; O2SAT 95
[2022-06-25 07:28] LABS: Glucose, Whole Blood 114 mg/dL (60-115)
[2022-06-25] MEDS: cefEPime HCl 2 GM in 0.9 % Sodium Chloride 50 ML IV ×3 (07:28→22:50)
[2022-06-25] MEDS: 0.9 % Sodium Chloride Flush 3 ML SYRINGE IVFLUSH ×3 (07:28→22:50)
[2022-06-25] MEDS: hydroCHLOROthiazide 25 MG TABLET PO (08:35)
[2022-06-25] MEDS: Cholecalciferol (Vitamin D3) 25 MCG TABLET 50 MCG PO (08:35)
[2022-06-25] MEDS: amLODIPine Besylate 10 MG TABLET PO (08:35)
[2022-06-25] MEDS: Ezetimibe 10 MG TABLET PO (08:35)
[2022-06-25] MEDS: Escitalopram Oxalate 10 MG TABLET PO (08:35)
[2022-06-25] MEDS: Fenofibrate 54 MG TABLET PO (08:36)
[2022-06-25] MEDS: lisinopriL 10 MG TABLET PO (08:36)
[2022-06-25] MEDS: vancomycin HCL 1,500 MG in 0.9 % Sodium Chloride 500 ML 333.33 MG IV ×2 (08:36→19:39)
[2022-06-25] MEDS: Insulin Glargine,Hum.rec.anlog 100 UNIT/ML 10 ML VIAL 28 UNIT SUBCUT (08:36)
--- NOTE | 2022-06-25 09:05 | P.PNIM_ITS ---
Subjective Subjective Date of Service: 06/25/22 Interval History: f/u diabetic foot ulcer ? osteo no pain, no fever, poor historian Review of Systems no pain or fever Physical Exam Vital Signs: Vital Signs: Last Vital Signs Temp 97.1 F 06/25/22 07:13 Pulse 74 06/25/22 07:13 Resp 16 06/25/22 07:13 BP 146/74 H 06/25/22 07:13 Pulse Ox 95 06/25/22 07:13 O2 Del Method 06/25/22 07:13 BMI result Body Mass Index 34.0 Const: Other: General resting comfortably in no acute distress.? Neck? supple no JVD. CVS? regular rate rhythm, Respiratory lungs clear to auscultation, no respiratory distress, no wheeze, no rhonchi. Gastrointestinal abdomen soft, non tender, bowel sounds audible, no guarding , no rigidity. Extremities right lower extremity swelling, warmth, improved, open wound plantar surface 5th metatarsal with no drainage Neuro nonfocal ,speech clear. Skin no rash Psych appropriate affect Objective Data Active Medications Acetaminophen (Acetaminophen 325 Mg Tablet) 650 mg PO Q6H PRN PRN Reason: Pain, Mild (Pain Scale 1-3) Amlodipine Besylate (Amlodipine Besylate 10 Mg Tablet) 10 mg PO DAILY [facility]; Protocol Last Admin: 06/25/22 08:35 Dose: 10 mg Documented By: PEGGY Dextrose (Dextrose 50 % 25 Gm/50 Ml Syringe) 25 gm IVPUSH Q15M PRN; Protocol PRN Reason: per Hypoglycemia Standing Ord. Docusate Sodium (Docusate Sodium 100 Mg Capsule) 100 mg PO DAILY PRN PRN Reason: Constipation Ezetimibe (Ezetimibe 10 Mg Tablet) 10 mg PO DAILY [facility] Last Admin: 06/25/22 08:35 Dose: 10 mg Documented By: PEGGY Enoxaparin Sodium (Enoxaparin Sodium 40 Mg/0.4 Ml Syringe) 40 mg SUBCUT Q24H [facility] Last Admin: 06/24/22 22:48 Dose: 40 mg Documented By: JORGE Escitalopram Oxalate (Escitalopram Oxalate 10 Mg Tablet) 10 mg PO DAILY [facility] Last Admin: 06/25/22 08:35 Dose: 10 mg Documented By: PEGGY Fenofibrate (Fenofibrate 54 Mg Tablet) 54 mg PO DAILY [facility] Last Admin: 06/25/22 08:36 Dose: 54 mg Documented By: PEGGY Gabapentin (Gabapentin 100 Mg Capsule) 100 mg PO Q8H [facility] Last Admin: 06/25/22 08:35 Dose: 100 mg Documented By: PEGGY Glucose (Glucose Gel 15 Gm Gel..Gram.) 15 gm PO Q15M PRN; Protocol PRN Reason: per Hypoglycemia Standing Ord. Last Admin: 06/22/22 11:45 Dose: 15 gm Documented By: MAMI Hydrochlorothiazide (Hydrochlorothiazide 25 Mg Tablet) 25 mg PO DAILY [facility]; Protocol Last Admin: 06/25/22 08:35 Dose: 25 mg Documented By: PEGGY Cefepime HCl 2 gm/ Sodium (Chloride) 50 mls @ 100 mls/hr IV Q8H [facility] Last Infusion: 06/25/22 07:58 Dose: 0 mls/hr Documented By: PEGGY Metronidazole (Flagyl) 500 mg in 100 mls @ 100 mls/hr IV Q12H [facility] Last Infusion: 06/25/22 06:54 Dose: 0 mls/hr Documented By: JORGE Vancomycin HCl 1,500 mg/ (Sodium Chloride) 500 mls @ 333.333 mls/hr IV Q12H [facility] Last Admin: 06/25/22 08:36 Dose: 333.33 mls/hr Documented By: PEGGY Insulin Glargine (Insulin Glargine,Hum.Rec.Anlog 100 Unit/Ml 10 Ml Vial) 28 unit SUBCUT DAILY [facility] Last Admin: 06/25/22 08:36 Dose: 28 unit Documented By: PEGGY Insulin Human Lispro (Insulin Lispro 100 Unit/Ml 3 Ml Vial) 0 unit SUBCUT QIDACHS [facility]; Protocol Last Admin: 06/25/22 07:28 Dose: Not Given Documented By: PEGGY Non-Admin Reason: No Insulin Coverage Insulin Human Lispro (Insulin Lispro 100 Unit/Ml 3 Ml Vial) 5 unit SUBCUT TIDAC [facility] Last Admin: 06/25/22 07:28 Dose: Not Given Documented By: PEGGY Non-Admin Reason: No Insulin Coverage Levothyroxine Sodium (Levothyroxine Sodium 150 Mcg Tablet) 150 mcg PO DAILY@0600 [facility] Last Admin: 06/25/22 05:41 Dose: 150 mcg Documented By: JORGE Lisinopril (Lisinopril 10 Mg Tablet) 10 mg PO DAILY [facility]; Protocol Last Admin: 06/25/22 08:36 Dose: 10 mg Documented By: PEGGY Non-Formulary Medication (Simvastatin) 40 mg PO DAILY [facility] Ondansetron HCl (Ondansetron Hcl 4 Mg/2 Ml Vial) 4 mg IVPUSH Q8H PRN PRN Reason: Nausea and Vomiting Pharmacy Consult (Consult Rx Perform Med Rec) 1 each MISCELLANE ONCE PRN PRN Reason: Consult order Pharmacy Consult (Consult Rx Vancomycin Dosing) 1 each MISCELLANE DAILY PRN PRN Reason: Consult order Sodium Chloride (0.9 % Sodium Chloride Flush 3 Ml Syringe) 3 ml IVFLUSH QSHIFT [facility] Last Admin: 06/25/22 07:28 Dose: 3 ml Documented By: PEGGY Vitamin D (Cholecalciferol (Vitamin D3) 25 Mcg Tablet) 50 mcg PO DAILY [facility] Last Admin: 06/25/22 08:35 Dose: 50 mcg Documented By: PEGGY Labs CBC & Chem 7: 06/21/22 06:25 06/25/22 05:19 Labs: Laboratory Results - last 24 hr 06/24/22 06/24/22 06/24/22 11:04 16:23 18:30 Estim Creat Clear Calc Estimated GFR POC Glucose 205 H 105 C-Reactive Protein Vancomycin Trough 11.2 06/24/22 06/25/22 06/25/22 20:20 05:19 07:17 Estim Creat Clear Calc 125.4 Estimated GFR > 60 POC Glucose 191 H 114 C-Reactive Protein 5.02 H Vancomycin Trough Assessment and Plan (1) Diabetic foot ulcer: Status: Acute Plan 51-year-old male with past medical history of? diabetes presents to the hospital with diabetic foot wound # Diabetic right foot wound with cellulitis Right leg swelling, warmth and redness improved, ? CRP 9.85, ESR 67, WBC normalized from 12.200 to 9.2, blood cultures negative foot x-ray showed soft tissue wound/ulcer overlying lateral aspect of the 5th metatarsal head no evidence of osteomyelitis MRI distorted by motion artifact ? osteo, recommendation to repeat MRI vs CERETEC ? ID recommends Cefepim and Flagyl , since noted to have improvement in leg examination will hold vanco, repeat MRI today. if osteo will need 6 weeks of IV antibiotic CRP high at 5 # Diabetes likely with peripheral neuropathy since patient has no position sense also complaining of numbness - continue Lantus and insulin sliding scale and diabetic diet, stable blood sugar # HTN - stable - continue home antihypertensives lisinopril 10 mg, hydrochlorothiazide 25 mg and Norvasc 10 mg daily # Hypothyroidsm - continue? levothyroxine ?given patient's diabetic foot wound requiring IV antibiotics patient will need continued inpatient hospital stay for further management and monitoring Time Spent With Patient Time: Total time managing care of this patient today 30_ minutes. Quality Stroke Does the patient have a stroke diagnosis?: No VTE Prior VTE?: No VTE Risk Level:: Medical - moderate - high VTE Device Contraindication: Treatment Not Indicated VTE Drug Contraindication: N/A - Med Ordered
--- NOTE | 2022-06-25 10:16 | MHC.CM.PN ---
EMR REVIEWED, PT RECOMMENDING STR, PT EVAL AND UPDATED MD NOTE SENT TO [facility], TAMIKA WILL CONT O FOLLOW D/C NEEDS.
[2022-06-25 11:31] LABS: Glucose, Whole Blood 214 mg/dL (60-115)
[2022-06-25] MEDS: Insulin Lispro 100 UNIT/ML 3 ML VIAL SUBCUT ×4 (11:43→16:26)
[2022-06-25] MEDS: LORazepam 2 MG/ML VIAL 1 MG IVPUSH (14:48)
[2022-06-25 16:23] VITALS: BP 139/74; PULSE 78; RESP 16; TEMP 36.6; O2SAT 97
[2022-06-25 16:24] LABS: Glucose, Whole Blood 204 mg/dL (60-115)
[2022-06-25 18:23] LABS: Vancomycin Random 16.8 mcg/mL (15-20)
--- NOTE | 2022-06-25 18:39 | HE.PHANOTE ---
Vancomycin Dosing addendum Continue with current regimen. Trough 16.8. Left note for AM RPH to monitor Cr and level tomorrow after 2 more doses..may need to decrease back down to 1250 mg q12h. Patient seems to be at steady state.
[2022-06-25 18:48] VITALS: BP 131/67; PULSE 85; RESP 15; TEMP 36.4; O2SAT 100
[2022-06-25 21:11] LABS: Glucose, Whole Blood 124 mg/dL (60-115)
[2022-06-25] MEDS: Enoxaparin Sodium 40 MG/0.4 ML SYRINGE SUBCUT (22:50)
[2022-06-26] MEDS: Gabapentin 100 MG CAPSULE PO ×4 (00:10→23:46)
[2022-06-26 03:29] VITALS: BP 132/83; PULSE 81; RESP 18; TEMP 36.6; O2SAT 98
[2022-06-26] MEDS: Levothyroxine Sodium 150 MCG TABLET PO (05:21)
[2022-06-26] MEDS: metroNIDAZOLE/NS 500 MG/100 ML PIGGYBACK 100 MG IV ×2 (05:21→17:41)
[2022-06-26 06:22] LABS: Creatinine Clr Calc Pharmacy 131.8; Estimated Glomerular Filt Rate > 60
[2022-06-26] MEDS: cefEPime HCl 2 GM in 0.9 % Sodium Chloride 50 ML IV ×3 (06:23→23:46)
[2022-06-26 07:20] LABS: Glucose, Whole Blood 115 mg/dL (60-115)
[2022-06-26 07:45] VITALS: BP 106/63; PULSE 87; RESP 18; TEMP 36; O2SAT 97
[2022-06-26] MEDS: Fenofibrate 54 MG TABLET PO (08:24)
[2022-06-26] MEDS: 0.9 % Sodium Chloride Flush 3 ML SYRINGE IVFLUSH ×2 (08:24→14:57)
[2022-06-26] MEDS: hydroCHLOROthiazide 25 MG TABLET PO (08:24)
[2022-06-26] MEDS: lisinopriL 10 MG TABLET PO (08:24)
[2022-06-26] MEDS: Ezetimibe 10 MG TABLET PO (08:24)
[2022-06-26] MEDS: Escitalopram Oxalate 10 MG TABLET PO (08:24)
[2022-06-26] MEDS: Cholecalciferol (Vitamin D3) 25 MCG TABLET 50 MCG PO (08:24)
[2022-06-26] MEDS: amLODIPine Besylate 10 MG TABLET PO (08:24)
[2022-06-26] MEDS: vancomycin HCL 1,500 MG in 0.9 % Sodium Chloride 500 ML 333.33 MG IV (08:26)
[2022-06-26] MEDS: Insulin Glargine,Hum.rec.anlog 100 UNIT/ML 10 ML VIAL 28 UNIT SUBCUT (10:26)
--- NOTE | 2022-06-26 10:39 | P.PNIM_ITS ---
Subjective Subjective Date of Service: 06/26/22 Interval History: f/u diabetic foot ulcer ? osteo no pain, no fever, poor historian, no new complaint Review of Systems no pain or fever Physical Exam Vital Signs: Vital Signs: Last Vital Signs Temp 96.8 F 06/26/22 07:45 Pulse 87 06/26/22 07:45 Resp 18 06/26/22 07:45 BP 106/63 06/26/22 07:45 Pulse Ox 97 06/26/22 07:45 O2 Del Method 06/26/22 07:45 BMI result Body Mass Index 34.0 Const: Other: General resting comfortably in no acute distress.? Neck? supple no JVD. CVS? regular rate rhythm, Respiratory lungs clear to auscultation, no respiratory distress, no wheeze, no rhonchi. Gastrointestinal abdomen soft, non tender, bowel sounds audible, no guarding , no rigidity. Extremities right lower extremity swelling, warmth, improved, open wound plantar surface 5th metatarsal with no drainage Neuro nonfocal ,speech clear. Skin no rash Psych appropriate affect Objective Data Active Medications Acetaminophen (Acetaminophen 325 Mg Tablet) 650 mg PO Q6H PRN PRN Reason: Pain, Mild (Pain Scale 1-3) Amlodipine Besylate (Amlodipine Besylate 10 Mg Tablet) 10 mg PO DAILY [facility]; Protocol Last Admin: 06/26/22 08:24 Dose: 10 mg Documented By: PEGGY Dextrose (Dextrose 50 % 25 Gm/50 Ml Syringe) 25 gm IVPUSH Q15M PRN; Protocol PRN Reason: per Hypoglycemia Standing Ord. Docusate Sodium (Docusate Sodium 100 Mg Capsule) 100 mg PO DAILY PRN PRN Reason: Constipation Ezetimibe (Ezetimibe 10 Mg Tablet) 10 mg PO DAILY [facility] Last Admin: 06/26/22 08:24 Dose: 10 mg Documented By: PEGGY Enoxaparin Sodium (Enoxaparin Sodium 40 Mg/0.4 Ml Syringe) 40 mg SUBCUT Q24H [facility] Last Admin: 06/25/22 22:50 Dose: 40 mg Documented By: JORGE Escitalopram Oxalate (Escitalopram Oxalate 10 Mg Tablet) 10 mg PO DAILY [facility] Last Admin: 06/26/22 08:24 Dose: 10 mg Documented By: PEGGY Fenofibrate (Fenofibrate 54 Mg Tablet) 54 mg PO DAILY [facility] Last Admin: 06/26/22 08:24 Dose: 54 mg Documented By: PEGGY Gabapentin (Gabapentin 100 Mg Capsule) 100 mg PO Q8H [facility] Last Admin: 06/26/22 08:24 Dose: 100 mg Documented By: PEGGY Glucose (Glucose Gel 15 Gm Gel..Gram.) 15 gm PO Q15M PRN; Protocol PRN Reason: per Hypoglycemia Standing Ord. Last Admin: 06/22/22 11:45 Dose: 15 gm Documented By: MAMI Hydrochlorothiazide (Hydrochlorothiazide 25 Mg Tablet) 25 mg PO DAILY [facility]; Protocol Last Admin: 06/26/22 08:24 Dose: 25 mg Documented By: PEGGY Cefepime HCl 2 gm/ Sodium (Chloride) 50 mls @ 100 mls/hr IV Q8H [facility] Last Infusion: 06/26/22 07:57 Dose: 0 mls/hr Documented By: PEGGY Metronidazole (Flagyl) 500 mg in 100 mls @ 100 mls/hr IV Q12H [facility] Last Infusion: 06/26/22 06:28 Dose: 0 mls/hr Documented By: JORGE Vancomycin HCl 1,500 mg/ (Sodium Chloride) 500 mls @ 333.333 mls/hr IV Q12H [facility] Last Infusion: 06/26/22 09:57 Dose: 0 mls/hr Documented By: PEGGY Insulin Glargine (Insulin Glargine,Hum.Rec.Anlog 100 Unit/Ml 10 Ml Vial) 28 unit SUBCUT DAILY [facility] Last Admin: 06/26/22 10:26 Dose: 28 unit Documented By: PEGGY Insulin Human Lispro (Insulin Lispro 100 Unit/Ml 3 Ml Vial) 0 unit SUBCUT QIDACHS [facility]; Protocol Last Admin: 06/26/22 07:56 Dose: Not Given Documented By: PEGGY Non-Admin Reason: No Insulin Coverage Insulin Human Lispro (Insulin Lispro 100 Unit/Ml 3 Ml Vial) 5 unit SUBCUT TIDAC [facility] Last Admin: 06/26/22 07:57 Dose: Not Given Documented By: PEGGY Non-Admin Reason: No Insulin Coverage Levothyroxine Sodium (Levothyroxine Sodium 150 Mcg Tablet) 150 mcg PO DAILY@0600 [facility] Last Admin: 06/26/22 05:21 Dose: 150 mcg Documented By: JORGE Lisinopril (Lisinopril 10 Mg Tablet) 10 mg PO DAILY [facility]; Protocol Last Admin: 06/26/22 08:24 Dose: 10 mg Documented By: PEGGY Non-Formulary Medication (Simvastatin) 40 mg PO DAILY [facility] Ondansetron HCl (Ondansetron Hcl 4 Mg/2 Ml Vial) 4 mg IVPUSH Q8H PRN PRN Reason: Nausea and Vomiting Pharmacy Consult (Consult Rx Perform Med Rec) 1 each MISCELLANE ONCE PRN PRN Reason: Consult order Pharmacy Consult (Consult Rx Vancomycin Dosing) 1 each MISCELLANE DAILY PRN PRN Reason: Consult order Sodium Chloride (0.9 % Sodium Chloride Flush 3 Ml Syringe) 3 ml IVFLUSH QSHIFT [facility] Last Admin: 06/26/22 08:24 Dose: 3 ml Documented By: PEGGY Vitamin D (Cholecalciferol (Vitamin D3) 25 Mcg Tablet) 50 mcg PO DAILY [facility] Last Admin: 06/26/22 08:24 Dose: 50 mcg Documented By: PEGGY Labs CBC & Chem 7: 06/21/22 06:25 06/26/22 05:15 Labs: Laboratory Results - last 24 hr 06/25/22 06/25/22 06/25/22 11:21 16:20 18:00 Estim Creat Clear Calc Estimated GFR POC Glucose 214 H 204 H Random Vancomycin 16.8 06/25/22 06/26/22 06/26/22 21:07 05:15 07:16 Estim Creat Clear Calc 131.8 Estimated GFR > 60 POC Glucose 124 H 115 Random Vancomycin Microbiology Microbiology Results: Microbiology 06/20/22 19:33 Blood Culture - Final Blood - Venous No growth after 5 days. 06/20/22 19:28 Blood Culture - Final Blood - Venous No growth after 5 days. Assessment and Plan (1) Diabetic foot ulcer: Status: Acute Plan 51-year-old male with past medical history of? diabetes presents to the hospital with diabetic foot wound # Diabetic right foot wound with cellulitis Right leg swelling, warmth and redness improved, ? CRP 9.85, ESR 67, WBC normalized from 12.200 to 9.2, blood cultures negative foot x-ray showed soft tissue wound/ulcer overlying lateral aspect of the 5th metatarsal head no evidence of osteomyelitis MRI distorted by motion artifact ? osteo, recommendation to repeat MRI vs CERETEC ? ID recommends Cefepim and Flagyl , since noted to have improvement in leg examination will hold vanco, repeat MRI 1/2 NO osteo. # Diabetes likely with peripheral neuropathy since patient has no position sense also complaining of numbness - continue Lantus and insulin sliding scale and diabetic diet, stable blood sugar # HTN - stable - continue home antihypertensives lisinopril 10 mg, hydrochlorothiazide 25 mg and Norvasc 10 mg daily # Hypothyroidsm - continue? levothyroxine ?given patient's diabetic foot wound requiring IV antibiotics patient will need continued inpatient hospital stay for further management and monitoring Time Spent With Patient Time: Total time managing care of this patient today 28 minutes. Quality Stroke Does the patient have a stroke diagnosis?: No VTE Prior VTE?: No VTE Risk Level:: Medical - moderate - high VTE Device Contraindication: Treatment Not Indicated VTE Drug Contraindication: N/A - Med Ordered
[2022-06-26 11:16] LABS: Glucose, Whole Blood 235 mg/dL (60-115)
[2022-06-26] MEDS: Insulin Lispro 100 UNIT/ML 3 ML VIAL SUBCUT ×5 (11:22→20:40)
[2022-06-26 15:27] VITALS: BP 119/59; PULSE 79; RESP 18; TEMP 36.9; O2SAT 95
[2022-06-26 15:36] LABS: Glucose, Whole Blood 220 mg/dL (60-115)
[2022-06-26 18:50] LABS: Vancomycin Trough 18.6 mcg/mL (10.0-20.0)
--- NOTE | 2022-06-26 18:57 | HE.PHANOTE ---
Vancomycin Dosing Addendum Patients level came back this evening at 18.6 mg/L up from 16.8 mg/L at the same dose. Rx insight estimates that the trough will go up as high as 21.6 mg/L. Therefore dose is to be decreased to 1250mg Q12H. Predicted AUC 499 mg/L/hr. Next level to be drawn 06/27 @1800
[2022-06-26 18:59] VITALS: BP 99/61; PULSE 88; RESP 18; TEMP 36.3; O2SAT 98
[2022-06-26 19:23] LABS: Glucose, Whole Blood 180 mg/dL (60-115)
[2022-06-26] MEDS: vancomycin HCL 1,250 MG in 0.9 % Sodium Chloride 250 ML 166.67 MG IV (20:40)
[2022-06-26] MEDS: Enoxaparin Sodium 40 MG/0.4 ML SYRINGE SUBCUT (23:46)
[2022-06-27] MEDS: 0.9 % Sodium Chloride Flush 3 ML SYRINGE IVFLUSH ×4 (00:35→23:39)
[2022-06-27 03:34] VITALS: BP 130/77; PULSE 76; RESP 16; TEMP 36.5; O2SAT 97
[2022-06-27] MEDS: Levothyroxine Sodium 150 MCG TABLET PO (05:22)
[2022-06-27] MEDS: metroNIDAZOLE/NS 500 MG/100 ML PIGGYBACK 100 MG IV ×2 (05:22→18:27)
[2022-06-27 07:42] LABS: Glucose, Whole Blood 125 mg/dL (60-115)
[2022-06-27] MEDS: lisinopriL 10 MG TABLET PO (07:46)
[2022-06-27] MEDS: Ezetimibe 10 MG TABLET PO (07:46)
[2022-06-27] MEDS: Escitalopram Oxalate 10 MG TABLET PO (07:47)
[2022-06-27] MEDS: Gabapentin 100 MG CAPSULE PO ×3 (07:47→23:27)
[2022-06-27] MEDS: Cholecalciferol (Vitamin D3) 25 MCG TABLET 50 MCG PO (07:47)
[2022-06-27] MEDS: hydroCHLOROthiazide 25 MG TABLET PO (07:47)
[2022-06-27] MEDS: Fenofibrate 54 MG TABLET PO (07:47)
[2022-06-27] MEDS: amLODIPine Besylate 10 MG TABLET PO (07:47)
[2022-06-27] MEDS: cefEPime HCl 2 GM in 0.9 % Sodium Chloride 50 ML IV ×3 (07:48→23:27)
[2022-06-27] MEDS: Insulin Glargine,Hum.rec.anlog 100 UNIT/ML 10 ML VIAL 28 UNIT SUBCUT (07:48)
[2022-06-27 07:58] VITALS: BP 132/86; PULSE 76; RESP 16; TEMP 36.6; O2SAT 96
[2022-06-27] MEDS: Insulin Lispro 100 UNIT/ML 3 ML VIAL SUBCUT ×6 (08:01→23:27)
[2022-06-27] MEDS: vancomycin HCL 1,250 MG in 0.9 % Sodium Chloride 250 ML 166.67 MG IV (08:27)
--- NOTE | 2022-06-27 09:10 | P.PNIM_ITS ---
Subjective Subjective Date of Service: 06/27/22 Interval History: f/u diabetic foot ulcer ? osteo no pain Review of Systems no pain or fever Physical Exam Vital Signs: Vital Signs: Last Vital Signs Temp 97.8 F 06/27/22 07:58 Pulse 76 06/27/22 07:58 Resp 16 06/27/22 07:58 BP 132/86 06/27/22 07:58 Pulse Ox 96 06/27/22 07:58 O2 Del Method 06/27/22 07:58 BMI result Body Mass Index 34.0 Const: Other: General resting comfortably in no acute distress.? Neck? supple no JVD. CVS? regular rate rhythm, Respiratory lungs clear to auscultation, no respiratory distress, no wheeze, no rhonchi. Gastrointestinal abdomen soft, non tender, bowel sounds audible, no guarding , no rigidity. Extremities right lower extremity swelling, warmth, improved, open wound plantar surface 5th metatarsal with no drainage Neuro nonfocal ,speech clear. Skin no rash Psych appropriate affect Objective Data Active Medications Acetaminophen (Acetaminophen 325 Mg Tablet) 650 mg PO Q6H PRN PRN Reason: Pain, Mild (Pain Scale 1-3) Amlodipine Besylate (Amlodipine Besylate 10 Mg Tablet) 10 mg PO DAILY [facility]; Protocol Last Admin: 06/27/22 07:47 Dose: 10 mg Documented By: MAMI Dextrose (Dextrose 50 % 25 Gm/50 Ml Syringe) 25 gm IVPUSH Q15M PRN; Protocol PRN Reason: per Hypoglycemia Standing Ord. Docusate Sodium (Docusate Sodium 100 Mg Capsule) 100 mg PO DAILY PRN PRN Reason: Constipation Ezetimibe (Ezetimibe 10 Mg Tablet) 10 mg PO DAILY [facility] Last Admin: 06/27/22 07:46 Dose: 10 mg Documented By: MAMI Enoxaparin Sodium (Enoxaparin Sodium 40 Mg/0.4 Ml Syringe) 40 mg SUBCUT Q24H [facility] Last Admin: 06/26/22 23:46 Dose: 40 mg Documented By: KYLE Escitalopram Oxalate (Escitalopram Oxalate 10 Mg Tablet) 10 mg PO DAILY [facility] Last Admin: 06/27/22 07:47 Dose: 10 mg Documented By: MAMI Fenofibrate (Fenofibrate 54 Mg Tablet) 54 mg PO DAILY [facility] Last Admin: 06/27/22 07:47 Dose: 54 mg Documented By: MAMI Gabapentin (Gabapentin 100 Mg Capsule) 100 mg PO Q8H [facility] Last Admin: 06/27/22 07:47 Dose: 100 mg Documented By: MAMI Glucose (Glucose Gel 15 Gm Gel..Gram.) 15 gm PO Q15M PRN; Protocol PRN Reason: per Hypoglycemia Standing Ord. Last Admin: 06/22/22 11:45 Dose: 15 gm Documented By: MAMI Hydrochlorothiazide (Hydrochlorothiazide 25 Mg Tablet) 25 mg PO DAILY [facility]; Protocol Last Admin: 06/27/22 07:47 Dose: 25 mg Documented By: MAMI Cefepime HCl 2 gm/ Sodium (Chloride) 50 mls @ 100 mls/hr IV Q8H [facility] Last Infusion: 06/27/22 08:27 Dose: 0 mls/hr Documented By: MAMI Metronidazole (Flagyl) 500 mg in 100 mls @ 100 mls/hr IV Q12H [facility] Last Infusion: 06/27/22 07:49 Dose: 0 mls/hr Documented By: MAMI Vancomycin HCl 1,250 mg/ (Sodium Chloride) 250 mls @ 166.667 mls/hr IV Q12H [facility] Last Admin: 06/27/22 08:27 Dose: 166.67 mls/hr Documented By: MAMI Insulin Glargine (Insulin Glargine,Hum.Rec.Anlog 100 Unit/Ml 10 Ml Vial) 28 unit SUBCUT DAILY [facility] Last Admin: 06/27/22 07:48 Dose: 28 unit Documented By: MAMI Insulin Human Lispro (Insulin Lispro 100 Unit/Ml 3 Ml Vial) 0 unit SUBCUT QIDACHS [facility]; Protocol Last Admin: 06/27/22 08:02 Dose: Not Given Documented By: MAMI Non-Admin Reason: No Insulin Coverage Insulin Human Lispro (Insulin Lispro 100 Unit/Ml 3 Ml Vial) 5 unit SUBCUT TIDAC [facility] Last Admin: 06/27/22 08:01 Dose: 5 unit Documented By: MAMI Levothyroxine Sodium (Levothyroxine Sodium 150 Mcg Tablet) 150 mcg PO DAILY@0600 [facility] Last Admin: 06/27/22 05:22 Dose: 150 mcg Documented By: KYLE Lisinopril (Lisinopril 10 Mg Tablet) 10 mg PO DAILY [facility]; Protocol Last Admin: 06/27/22 07:46 Dose: 10 mg Documented By: MAMI Non-Formulary Medication (Simvastatin) 40 mg PO DAILY [facility] Ondansetron HCl (Ondansetron Hcl 4 Mg/2 Ml Vial) 4 mg IVPUSH Q8H PRN PRN Reason: Nausea and Vomiting Pharmacy Consult (Consult Rx Perform Med Rec) 1 each MISCELLANE ONCE PRN PRN Reason: Consult order Pharmacy Consult (Consult Rx Vancomycin Dosing) 1 each MISCELLANE DAILY PRN PRN Reason: Consult order Sodium Chloride (0.9 % Sodium Chloride Flush 3 Ml Syringe) 3 ml IVFLUSH QSHIFT [facility] Last Admin: 06/27/22 07:49 Dose: 3 ml Documented By: MAMI Vitamin D (Cholecalciferol (Vitamin D3) 25 Mcg Tablet) 50 mcg PO DAILY [facility] Last Admin: 06/27/22 07:47 Dose: 50 mcg Documented By: MAMI Labs CBC & Chem 7: 06/21/22 06:25 06/26/22 05:15 Labs: Laboratory Results - last 24 hr 06/26/22 06/26/22 06/26/22 11:12 15:26 18:24 POC Glucose 235 H 220 H Vancomycin Trough 18.6 06/26/22 06/27/22 18:58 07:33 POC Glucose 180 H 125 H Vancomycin Trough Assessment and Plan (1) Diabetic foot ulcer: Status: Acute Plan 51-year-old male with past medical history of? diabetes presents to the hospital with diabetic foot wound # Diabetic right foot wound with cellulitis Right leg swelling, warmth and redness improved, ? CRP 9.85, ESR 67, WBC normalized from 12.200 to 9.2, blood cultures negative foot x-ray showed soft tissue wound/ulcer overlying lateral aspect of the 5th metatarsal head no evidence of osteomyelitis MRI distorted by motion artifact ? osteo, recommendation to repeat MRI vs CERETEC ? ID recommends IV Abx for 4 to 6 weeks repeat MRI / NO osteo, request pic line # Diabetes with peripheral neuropathy since patient has no position sense also complaining of numbness - continue Lantus and insulin sliding scale and diabetic diet, stable blood sugar # HTN - stable - continue home antihypertensives lisinopril 10 mg, hydrochlorothiazide 25 mg and Norvasc 10 mg daily # Hypothyroidsm - continue? levothyroxine ?given patient's diabetic foot wound requiring IV antibiotics patient will need continued inpatient hospital stay for further management and monitoring Time Spent With Patient Time: Total time managing care of this patient today ____ minutes. Quality Stroke Does the patient have a stroke diagnosis?: No VTE Prior VTE?: No VTE Risk Level:: Medical - moderate - high VTE Device Contraindication: Treatment Not Indicated VTE Drug Contraindication: N/A - Med Ordered
[2022-06-27 09:40] LABS: Creatinine Clr Calc Pharmacy 93.5; Estimated Glomerular Filt Rate > 60
[2022-06-27 10:47] VITALS: BP 132/86; PULSE 76; O2SAT 96
[2022-06-27 11:23] LABS: Glucose, Whole Blood 188 mg/dL (60-115)
--- NOTE | 2022-06-27 12:01 | MHC.CM.PN ---
EMR REVIEWED, PER HOSPITALIST PT WILL NEED PICC LINE AND 6WKS IV ABX, PER HOSPITALIST PICC LINE AND FINAL ABX PENDING, CM WILL CONT TO FOLLOW AND PLAN FOR [facility] ONCE MEDICALLY CLEARED.
[2022-06-27 15:18] VITALS: BP 138/69; PULSE 74; RESP 18; TEMP 36.3; O2SAT 96
--- NOTE | 2022-06-27 16:01 | P.PNID_ITS ---
Subjective Subjective Date of Service: 06/27/22 Critical Care Time (minutes): 15 Comment: he has no complaints Objective Data Labs CBC & Chem 7: 06/21/22 06:25 06/27/22 08:53 Labs: Laboratory Results - last 24 hr 06/26/22 06/26/22 06/27/22 18:24 18:58 07:33 Creatinine Estim Creat Clear Calc Estimated GFR POC Glucose 180 H 125 H Vancomycin Trough 18.6 06/27/22 06/27/22 08:53 11:15 Creatinine 1.10 Estim Creat Clear Calc 93.5 Estimated GFR > 60 POC Glucose 188 H Vancomycin Trough Microbiology Microbiology Results: Microbiology 06/20/22 19:33 Blood - Venous Blood Culture - Final No growth after 5 days. 06/20/22 19:28 Blood - Venous Blood Culture - Final No growth after 5 days. Physical Exam 2 Vital Signs: Vital Signs: Last Vital Signs Temp 97.4 F 06/27/22 15:18 Pulse 74 06/27/22 15:18 Resp 18 06/27/22 15:18 BP 138/69 06/27/22 15:18 Pulse Ox 96 06/27/22 15:18 O2 Del Method 06/27/22 15:18 BMI result Body Mass Index 34.0 Const: General: cooperative Resp: Effort & Inspection: normal respiratory effort Cardio: Rate: regular rate Rhythm: regular rhythm GI: Palpation (GI): Soft to palpation and nontender Extrem: Other: wrapped right foot Assessment and Plan Assessment and plan (1) Diabetic foot ulcer: Problem details: He has osteomyelitis concern. Status: Acute Plan six weeks IV Ertapenem. Weekly CBC,creatine,SGOT Time Spent With Patient Time: Total time managing care of this patient today ____ minutes.
[2022-06-27 16:20] LABS: Glucose, Whole Blood 158 mg/dL (60-115)
[2022-06-27 18:38] LABS: Vancomycin Random 23.1 mcg/mL (15-20)
[2022-06-27 20:00] VITALS: BP 115/61; PULSE 83; RESP 18; TEMP 36.3; O2SAT 98
[2022-06-27 20:11] LABS: Glucose, Whole Blood 184 mg/dL (60-115)
[2022-06-27] MEDS: Enoxaparin Sodium 40 MG/0.4 ML SYRINGE SUBCUT (23:27)
[2022-06-28 03:38] VITALS: BP 112/65; PULSE 73; RESP 18; TEMP 36.3; O2SAT 99
[2022-06-28] MEDS: Levothyroxine Sodium 150 MCG TABLET PO (05:12)
[2022-06-28] MEDS: metroNIDAZOLE/NS 500 MG/100 ML PIGGYBACK 100 MG IV ×2 (05:12→18:03)
[2022-06-28 07:21] LABS: Estimated Glomerular Filt Rate > 60
[2022-06-28 07:28] LABS: Vancomycin Random 15.9 mcg/mL (15-20)
[2022-06-28] MEDS: cefEPime HCl 2 GM in 0.9 % Sodium Chloride 50 ML IV ×3 (07:36→22:27)
[2022-06-28] MEDS: 0.9 % Sodium Chloride Flush 3 ML SYRINGE IVFLUSH (07:39)
--- NOTE | 2022-06-28 07:40 | HE.PHANOTE ---
RE VANCO TROUGH WAS 15.9, i WILL DECREASE TO 1 GRAM Q12 AND GET A LEVEL AFTER 3 DOSES. NEW SUSPECTED AUC 413, TROUGH 15.2. NEXT LEVEL 06/29 @1800 [facility]
[2022-06-28 08:00] VITALS: BP 112/70; PULSE 71; RESP 19; TEMP 36.3; O2SAT 98
[2022-06-28 08:04] LABS: Glucose, Whole Blood 90 mg/dL (60-115)
[2022-06-28] MEDS: Escitalopram Oxalate 10 MG TABLET PO (08:25)
[2022-06-28] MEDS: Gabapentin 100 MG CAPSULE PO ×2 (08:25→16:29)
[2022-06-28] MEDS: Cholecalciferol (Vitamin D3) 25 MCG TABLET 50 MCG PO (08:25)
[2022-06-28] MEDS: Fenofibrate 54 MG TABLET PO (08:25)
[2022-06-28] MEDS: lisinopriL 10 MG TABLET PO (08:25)
[2022-06-28] MEDS: Ezetimibe 10 MG TABLET PO (08:25)
[2022-06-28] MEDS: vancomycin HCL 1,000 MG in 0.9 % Sodium Chloride 250 ML 270 MG IV ×2 (08:26→20:55)
[2022-06-28] MEDS: Insulin Lispro 100 UNIT/ML 3 ML VIAL SUBCUT ×5 (08:26→21:52)
[2022-06-28] MEDS: Insulin Glargine,Hum.rec.anlog 100 UNIT/ML 10 ML VIAL 28 UNIT SUBCUT (08:26)
[2022-06-28] MEDS: hydroCHLOROthiazide 25 MG TABLET PO (08:26)
[2022-06-28] MEDS: amLODIPine Besylate 10 MG TABLET PO (08:26)
--- NOTE | 2022-06-28 09:46 | P.PNIM_ITS ---
Subjective Subjective Date of Service: 06/28/22 Interval History: f/u diabetic foot ulcer ? osteo no pain Review of Systems no pain or fever Physical Exam Vital Signs: Vital Signs: Last Vital Signs Temp 97.4 F 06/28/22 08:00 Pulse 71 06/28/22 08:00 Resp 19 06/28/22 08:00 BP 112/70 06/28/22 08:00 Pulse Ox 98 06/28/22 08:00 O2 Del Method 06/28/22 08:00 BMI result Body Mass Index 34.0 Const: Other: General resting comfortably in no acute distress.? Neck? supple no JVD. CVS? regular rate rhythm, Respiratory lungs clear to auscultation, no respiratory distress, no wheeze, no rhonchi. Gastrointestinal abdomen soft, non tender, bowel sounds audible, no guarding , no rigidity. Extremities right lower extremity swelling, warmth, improved, open wound plantar surface 5th metatarsal with no drainage Neuro nonfocal ,speech clear. Skin no rash Psych appropriate affect Objective Data Active Medications Acetaminophen (Acetaminophen 325 Mg Tablet) 650 mg PO Q6H PRN PRN Reason: Pain, Mild (Pain Scale 1-3) Amlodipine Besylate (Amlodipine Besylate 10 Mg Tablet) 10 mg PO DAILY [facility]; Protocol Last Admin: 06/28/22 08:26 Dose: 10 mg Documented By: MATHEW Dextrose (Dextrose 50 % 25 Gm/50 Ml Syringe) 25 gm IVPUSH Q15M PRN; Protocol PRN Reason: per Hypoglycemia Standing Ord. Docusate Sodium (Docusate Sodium 100 Mg Capsule) 100 mg PO DAILY PRN PRN Reason: Constipation Ezetimibe (Ezetimibe 10 Mg Tablet) 10 mg PO DAILY [facility] Last Admin: 06/28/22 08:25 Dose: 10 mg Documented By: MATHEW Enoxaparin Sodium (Enoxaparin Sodium 40 Mg/0.4 Ml Syringe) 40 mg SUBCUT Q24H [facility] Last Admin: 06/27/22 23:27 Dose: 40 mg Documented By: KYLE Escitalopram Oxalate (Escitalopram Oxalate 10 Mg Tablet) 10 mg PO DAILY [facility] Last Admin: 06/28/22 08:25 Dose: 10 mg Documented By: MATHEW Fenofibrate (Fenofibrate 54 Mg Tablet) 54 mg PO DAILY [facility] Last Admin: 06/28/22 08:25 Dose: 54 mg Documented By: MATHEW Gabapentin (Gabapentin 100 Mg Capsule) 100 mg PO Q8H [facility] Last Admin: 06/28/22 08:25 Dose: 100 mg Documented By: MATHEW Glucose (Glucose Gel 15 Gm Gel..Gram.) 15 gm PO Q15M PRN; Protocol PRN Reason: per Hypoglycemia Standing Ord. Last Admin: 06/22/22 11:45 Dose: 15 gm Documented By: MAMI Hydrochlorothiazide (Hydrochlorothiazide 25 Mg Tablet) 25 mg PO DAILY [facility]; Protocol Last Admin: 06/28/22 08:26 Dose: 25 mg Documented By: MATHEW Cefepime HCl 2 gm/ Sodium (Chloride) 50 mls @ 100 mls/hr IV Q8H [facility] Last Infusion: 06/28/22 08:06 Dose: 0 mls/hr Documented By: MATHEW Metronidazole (Flagyl) 500 mg in 100 mls @ 100 mls/hr IV Q12H [facility] Last Infusion: 06/28/22 06:17 Dose: 0 mls/hr Documented By: KYLE Vancomycin HCl 1,000 mg/ (Sodium Chloride) 270 mls @ 270 mls/hr IV Q12H [facility] Last Infusion: 06/28/22 08:32 Dose: 0 mls/hr Documented By: MATHEW Insulin Glargine (Insulin Glargine,Hum.Rec.Anlog 100 Unit/Ml 10 Ml Vial) 28 unit SUBCUT DAILY [facility] Last Admin: 06/28/22 08:26 Dose: 28 unit Documented By: MATHEW Insulin Human Lispro (Insulin Lispro 100 Unit/Ml 3 Ml Vial) 0 unit SUBCUT QIDACHS [facility]; Protocol Last Admin: 06/28/22 08:02 Dose: Not Given Documented By: MATHEW Non-Admin Reason: No Insulin Coverage Insulin Human Lispro (Insulin Lispro 100 Unit/Ml 3 Ml Vial) 5 unit SUBCUT TIDAC [facility] Last Admin: 06/28/22 08:26 Dose: 5 unit Documented By: MATHEW Levothyroxine Sodium (Levothyroxine Sodium 150 Mcg Tablet) 150 mcg PO DAILY@0600 [facility] Last Admin: 06/28/22 05:12 Dose: 150 mcg Documented By: KYLE Lisinopril (Lisinopril 10 Mg Tablet) 10 mg PO DAILY [facility]; Protocol Last Admin: 06/28/22 08:25 Dose: 10 mg Documented By: MATHEW Non-Formulary Medication (Simvastatin) 40 mg PO DAILY [facility] Ondansetron HCl (Ondansetron Hcl 4 Mg/2 Ml Vial) 4 mg IVPUSH Q8H PRN PRN Reason: Nausea and Vomiting Pharmacy Consult (Consult Rx Perform Med Rec) 1 each MISCELLANE ONCE PRN PRN Reason: Consult order Pharmacy Consult (Consult Rx Vancomycin Dosing) 1 each MISCELLANE DAILY PRN PRN Reason: Consult order Sodium Chloride (0.9 % Sodium Chloride Flush 3 Ml Syringe) 3 ml IVFLUSH QSHIFT [facility] Last Admin: 06/28/22 07:39 Dose: 3 ml Documented By: MATHEW Vitamin D (Cholecalciferol (Vitamin D3) 25 Mcg Tablet) 50 mcg PO DAILY [facility] Last Admin: 06/28/22 08:25 Dose: 50 mcg Documented By: MATHEW Labs CBC & Chem 7: 06/21/22 06:25 06/28/22 05:04 Labs: Laboratory Results - last 24 hr 06/27/22 06/27/22 06/27/22 11:15 16:16 18:14 Estim Creat Clear Calc Estimated GFR POC Glucose 188 H 158 H Random Vancomycin 23.1 H 06/27/22 06/28/22 06/28/22 20:05 05:04 05:04 Estim Creat Clear Calc 113.0 Estimated GFR > 60 POC Glucose 184 H Random Vancomycin 15.9 06/28/22 08:01 Estim Creat Clear Calc Estimated GFR POC Glucose 90 Random Vancomycin Assessment and Plan (1) Diabetic foot ulcer: Status: Acute Plan 51-year-old male with past medical history of? diabetes presents to the hospital with diabetic foot wound # Diabetic right foot wound with cellulitis Right leg swelling, warmth and redness improved, ? CRP 9.85, ESR 67, WBC normalized from 12.200 to 9.2, blood cultures negative foot x-ray showed soft tissue wound/ulcer overlying lateral aspect of the 5th metatarsal head no evidence of osteomyelitis MRI distorted by motion artifact ? osteo, recommendation to repeat MRI vs CERETEC ? ID --six weeks IV Ertapenem. Weekly CBC,creatine,SGOT PICC line today and will need to go to rehab # Diabetes with peripheral neuropathy since patient has no position sense also complaining of numbness - continue Lantus and insulin sliding scale and diabetic diet, stable blood sugar # HTN - stable - continue home antihypertensives lisinopril 10 mg, hydrochlorothiazide 25 mg and Norvasc 10 mg daily # Hypothyroidsm - continue? levothyroxine ?given patient's diabetic foot wound requiring IV antibiotics patient will need continued inpatient hospital stay for further management and monitoring Time Spent With Patient Time: Total time managing care of this patient today ____ minutes. Quality Stroke Does the patient have a stroke diagnosis?: No VTE Prior VTE?: No VTE Risk Level:: Medical - moderate - high VTE Device Contraindication: Treatment Not Indicated VTE Drug Contraindication: N/A - Med Ordered
--- NOTE | 2022-06-28 11:21 | P.PICC_ITS ---
PICC Line Insertion NPICC Diagnosis: [Diabetic Foot Infection] Indication: [Chcf Antibx] Pertinent Labs: [Reviewed] Technique: Following informed consent including risks, benefits and alternatives and using sterile technique including cap and mask, sterile gown, glove and drape, the [LEFT] arm was prepped and draped in the usual sterile fashion of f ull barrier technique with CHG. Following completion of [place] Protocol the skin and soft tissues were anesthetized with 1% Lidocaine plain. Using ultrasound guidance, [LEFT BASILIC] vein access was obtained ON FIRST ATTEMPT. Over an 0.018 wire through peel-away sheath, a [4 FR SINGLE LUMEN PASV] PICC line was positioned. Catheter length is [46CM] internal length, [1CM] external length, for a total trimmed length of [47CM]. The procedure was performed in [RM 272]. Tip verification was performed by Jose Barajas with Sherlock 3CG. Tip located in SVC. Ultrasound was used to document vein patency and for needle entry. A formal ultrasound picture and cardiac rhythm strip was recorded. Vascular Sulphate Tester has released the line for use and it is currently dressed with a StatLock, Tegaderm, and CHG disc. Verification has been performed for blood return and line patency. Arm Circumference: [27CM] Equipment: [Survature POWER SOLO PICC] Catheter Type: [4 FR SINGLE LUMEN PASV] Lot #: [[id number]]
[2022-06-28 11:43] LABS: Glucose, Whole Blood 125 mg/dL (60-115)
[2022-06-28 15:11] VITALS: BP 122/69; PULSE 81; RESP 17; TEMP 36.6; O2SAT 95
[2022-06-28 16:11] LABS: Glucose, Whole Blood 205 mg/dL (60-115)
[2022-06-28 19:40] VITALS: BP 134/66; PULSE 85; RESP 15; TEMP 36.6; O2SAT 96
[2022-06-28 21:01] LABS: Glucose, Whole Blood 177 mg/dL (60-115)
[2022-06-28] MEDS: Enoxaparin Sodium 40 MG/0.4 ML SYRINGE SUBCUT (22:27)
[2022-06-29] MEDS: Gabapentin 100 MG CAPSULE PO ×2 (02:34→08:37)
[2022-06-29 03:34] VITALS: BP 111/55; PULSE 77; RESP 18; TEMP 36.4; O2SAT 99
[2022-06-29] MEDS: Levothyroxine Sodium 150 MCG TABLET PO (05:09)
[2022-06-29] MEDS: metroNIDAZOLE/NS 500 MG/100 ML PIGGYBACK 100 MG IV (05:09)
[2022-06-29] MEDS: cefEPime HCl 2 GM in 0.9 % Sodium Chloride 50 ML IV (06:19)
[2022-06-29 06:33] LABS: Estimated Glomerular Filt Rate > 60
[2022-06-29 07:21] VITALS: BP 117/60; PULSE 72; RESP 16; TEMP 36.3; O2SAT 98
[2022-06-29 07:45] LABS: Glucose, Whole Blood 169 mg/dL (60-115)
[2022-06-29] MEDS: Insulin Lispro 100 UNIT/ML 3 ML VIAL SUBCUT ×4 (08:36→11:35)
[2022-06-29] MEDS: Insulin Glargine,Hum.rec.anlog 100 UNIT/ML 10 ML VIAL 28 UNIT SUBCUT (08:36)
[2022-06-29] MEDS: Ezetimibe 10 MG TABLET PO (08:37)
[2022-06-29] MEDS: lisinopriL 10 MG TABLET PO (08:37)
[2022-06-29] MEDS: Fenofibrate 54 MG TABLET PO (08:37)
[2022-06-29] MEDS: hydroCHLOROthiazide 25 MG TABLET PO (08:37)
[2022-06-29] MEDS: Escitalopram Oxalate 10 MG TABLET PO (08:38)
[2022-06-29] MEDS: Cholecalciferol (Vitamin D3) 25 MCG TABLET 50 MCG PO (08:38)
[2022-06-29] MEDS: vancomycin HCL 1,000 MG in 0.9 % Sodium Chloride 250 ML 270 MG IV (08:38)
[2022-06-29] MEDS: 0.9 % Sodium Chloride Flush 3 ML SYRINGE IVFLUSH (08:38)
[2022-06-29] MEDS: amLODIPine Besylate 10 MG TABLET PO (08:38)
[2022-06-29 09:22] LABS: COVID-19 Test Negative (Negative); IDNOW Serial# 16C4AD1C
--- NOTE | 2022-06-29 10:09 | P.DS_ITS ---
DS: Providers Provider Date of Service: 06/29/22 Date of admission: 06/20/22 23:12 Primary care physician: Adwoa Fan MD Consults: 06/21/22 12:05 Consult to Infectious Diseases Routine Consulting Provider: Kristen Fraser Reason for consultation: diabetic foot wound Has provider been notified: No DS: Diagnosis Discharge Diagnosis (1) Diabetic foot ulcer: Status: Acute DS: Summary Hospital Course Hospital Course: Chief Complaint:? foot ulcer M[place]ese speanking, history is obtained w help of? automatic vulcanizing operator ?51-year-old male with past medical history of diabetes, history of thyroiditis, HTN, HLD presents the hospital with complaints of wound in the right foot.? Patient reports that he only noticed it today when he had bleeding while trying to take a shower.? He reports no trauma or injury to the foot.? Denies any fever or chills, no pain, reports no chest pain, no shortness of breath no abdominal pain nausea or vomiting, no diarrhea constipation, no urinary symptoms and no lower extremity edema. ? On arrival to the ED patient hemodynamically stable no significant abnormal vitals Labs are significant for WBC count of 12.2, hemoglobin of 11.7, hematocrit of 32.9, sodium 132, BUN of 28, creatinine of 0.2 which is higher than his baseline of 0.7-1, ?foot x-ray shows soft tissue wound ulcer overlying the lateral aspect of the 5th metatarsal head.? With no radiographic evidence of advanced osteomyelitis. Hospital course: # Diabetic right foot wound with cellulitis. CRP 9.85, ESR 67, WBC normalized from 12.200 to 9.2, blood cultures negative ?? foot x-ray showed soft tissue wound/ulcer overlying lateral aspect of the 5th metatarsal head no evidence of osteomyelitis ?? first MRI distorted by motion artifact ? osteo. Repeat MRI no osteo. ID rec ommends six weeks IV Ertapenem 1 gram daily (ending 08/10/2022.). Weekly CBC,creatine,SGOT PICC line inserted 06/27/22 for the antibiotics. Check Weekly CBC,creatine,SGOT # Diabetes with peripheral neuropathy since patient has no position sense also complaining of numbness - continue Lantus and insulin sliding scale and diabetic diet, stable blood sugar # HTN - stable - continue home antihypertensives lisinopril 10 mg, hydrochlorothiazide 25 mg and Norvasc 10 mg daily # Hypothyroidsm - continue? levothyroxine To short-term rehab for less than 30 days. Time Spent with Patient Time attestation: Total time managing care of this patient today ____ minutes. Discharge coordination time: Greater than 30 minutes Quality: Safe Use of Opioids Does Pt have an Active Cancer Diagnosis on the Problem List?: No Quality: Stroke Does the patient have a stroke diagnosis?: No Physical Exam Vital Signs: Vital Signs: Last Vital Signs Temp 97.4 F 06/29/22 07:21 Pulse 72 06/29/22 07:21 Resp 16 06/29/22 07:21 BP 117/60 06/29/22 07:21 Pulse Ox 98 06/29/22 07:21 O2 Del Method 06/29/22 07:21 BMI result Body Mass Index 34.0 Const: Other: General resting comfortably in no acute distress.? Neck? supple no JVD. CVS? regular rate rhythm, Respiratory lungs clear to auscultation, no respiratory distress, no wheeze, no rhonchi. Gastrointestinal abdomen soft, non tender, bowel sounds audible, no guarding , no rigidity. Extremities right lower extremity swelling, warmth, improved, open wound plantar surface 5th metatarsal with no drainage Neuro nonfocal ,speech clear. Skin no rash Psych appropriate affect DS: Data Data Completed and Pending Labs on day of discharge: Laboratory Results - last 24 hr 06/28/22 06/28/22 06/28/22 11:40 16:04 20:52 Creatinine Estim Creat Clear Calc Estimated GFR POC Glucose 125 H 205 H 177 H COVID-19 ([facility]) COVID-19 Clin Com 06/29/22 06/29/22 06/29/22 05:08 07:22 08:50 Creatinine 1.06 Estim Creat Clear Calc 97.0 Estimated GFR > 60 POC Glucose 169 H COVID-19 ([facility]) Negative COVID-19 Clin Com See Note Discharge Plan Discharge Anticipated Discharge Date/Time: 06/29/22 10:16 Patient Disposition: Xfer SNF Discharge Diagnosis: Diabetic foot ulcer that is infected Referrals: [facility] [Outside] - 1 Day (SHORT TERM REHAB) Adwoa Mcadams MD [Primary Care Provider] - 1 Week Discharge Medications: New ertapenem [Invanz] 1 gram recon soln 1 g IV Q24H Qty: 41 0RF Continued escitalopram oxalate 10 mg tablet 10 mg PO DAILY 90 Days Qty: 90 3RF (DME) FreeStyle Precision Gama Strips Strip See Rx Instructions .ROUTE .MEDSUPPLY Qty: 50 11RF Rx Instructions: As directed once daily (DME) FreeStyle Leonel 2 Sensor Kit See Rx Instructions .ROUTE .MEDSUPPLY Qty: 2 11RF Rx Instructions: As directed every 2 weeks ezetimibe [Zetia] 10 mg tablet 10 mg PO DAILY 90 Days Qty: 90 3RF simvastatin 40 mg tablet 40 mg PO DAILY 90 Days Qty: 90 3RF fenofibrate 54 mg tablet 54 mg PO DAILY 90 Days Qty: 90 3RF (DME) right knee brace See Rx Instructions .Route .MEDSUPPLY Qty: 1 0RF Rx Instructions: As directed (DME) wrist splint bilateral See Rx Instructions .Route .MEDSUPPLY Qty: 2 0RF Rx Instructions: As directed (DME) high shower chair See Rx Instructions .Route .MEDSUPPLY Qty: 1 0RF Rx Instructions: As directed (DME) raised toilet seat See Rx Instructions .Route .MEDSUPPLY Qty: 1 0RF Rx Instructions: As directed levothyroxine 150 mcg tablet 150 mcg PO DAILY 90 Days Qty: 90 1RF gabapentin 100 mg capsule 100 mg PO Q8H 90 Days Qty: 270 0RF hydrochlorothiazide 25 mg tablet 25 mg PO DAILY 90 Days Qty: 90 1RF lisinopril 10 mg tablet 10 mg PO DAILY 90 Days Qty: 90 0RF amlodipine 10 mg tablet 10 mg PO DAILY 30 Days Qty: 30 4RF cholecalciferol (vitamin D3) 50 mcg (2,000 unit) capsule 50 mcg PO DAILY 90 Days Qty: 90 1RF insulin aspart U-100 [Novolog FlexPen U-100 Insulin] 100 unit/mL (3 mL) insulin pen 30 unit subcut TID metformin 500 mg tablet 500 mg PO BIDWM insulin degludec [Tresiba FlexTouch U-200] 200 unit/mL (3 mL) insulin pen 40 unit subcut DAILY Trulicity 1.5 mg/0.5 mL pen injector 1.5 mg subcut FR glucose [Dex4 Glucose] 4 gram tablet,chewable 4 g PO ONCE PRN (Reason: hypoglycemia) 30 Days Qty: 30 6RF Rx Instructions: until symptoms of low blood sugar are controlled Discharge Orders: Discharge Order (Routine); Ordered 06/29/22 Ordered By: Yony Barber Diet: Advance to usual diet Activity on Discharge: As tolerated Stand Alone Forms: Patient Portal Discharge page Care Plan Goals: Resolution of diabetic foot ulcer Health Concerns: Diabetic foot ulcer concern for osteomyelitis Diabetes Plan of Treatment: Invaz 1 gram daily for 6 weeks check Weekly CBC, creatine, SGOT Assessment: As above
[2022-06-29 11:09] LABS: Glucose, Whole Blood 227 mg/dL (60-115)
--- NOTE | 2022-06-29 11:36 | HO.PM.IMPN ---
Subjective Subjective Date of Service: 06/29/22 Interval History: f/u diabetic foot ulcer ? osteo no pain, no new issues Physical Exam Vital Signs: Vital Signs: Last Vital Signs Temp 97.4 F 06/29/22 07:21 Pulse 72 06/29/22 07:21 Resp 16 06/29/22 07:21 BP 117/60 06/29/22 07:21 Pulse Ox 98 06/29/22 07:21 O2 Del Method 06/29/22 07:21 BMI result Body Mass Index 34.0 Const: Other: General resting comfortably in no acute distress.? Neck? supple no JVD. CVS? regular rate rhythm, Respiratory lungs clear to auscultation, no respiratory distress, no wheeze, no rhonchi. Gastrointestinal abdomen soft, non tender, bowel sounds audible, no guarding , no rigidity. Extremities right lower extremity swelling, warmth, improved, open wound plantar surface 5th metatarsal with no drainage Neuro nonfocal ,speech clear. Skin no rash Psych appropriate affect Objective Data Active Medications Acetaminophen (Acetaminophen 325 Mg Tablet) 650 mg PO Q6H PRN PRN Reason: Pain, Mild (Pain Scale 1-3) Amlodipine Besylate (Amlodipine Besylate 10 Mg Tablet) 10 mg PO DAILY [facility]; Protocol Last Admin: 06/29/22 08:38 Dose: 10 mg Documented By: MATHEW Dextrose (Dextrose 50 % 25 Gm/50 Ml Syringe) 25 gm IVPUSH Q15M PRN; Protocol PRN Reason: per Hypoglycemia Standing Ord. Docusate Sodium (Docusate Sodium 100 Mg Capsule) 100 mg PO DAILY PRN PRN Reason: Constipation Ezetimibe (Ezetimibe 10 Mg Tablet) 10 mg PO DAILY [facility] Last Admin: 06/29/22 08:37 Dose: 10 mg Documented By: MATHEW Enoxaparin Sodium (Enoxaparin Sodium 40 Mg/0.4 Ml Syringe) 40 mg SUBCUT Q24H [facility] Last Admin: 06/28/22 22:27 Dose: 40 mg Documented By: FLAKITO Escitalopram Oxalate (Escitalopram Oxalate 10 Mg Tablet) 10 mg PO DAILY [facility] Last Admin: 06/29/22 08:38 Dose: 10 mg Documented By: MATHEW Fenofibrate (Fenofibrate 54 Mg Tablet) 54 mg PO DAILY [facility] Last Admin: 06/29/22 08:37 Dose: 54 mg Documented By: MATHEW Gabapentin (Gabapentin 100 Mg Capsule) 100 mg PO Q8H [facility] Last Admin: 06/29/22 08:37 Dose: 100 mg Documented By: MATHEW Glucose (Glucose Gel 15 Gm Gel..Gram.) 15 gm PO Q15M PRN; Protocol PRN Reason: per Hypoglycemia Standing Ord. Last Admin: 06/22/22 11:45 Dose: 15 gm Documented By: MAMI Hydrochlorothiazide (Hydrochlorothiazide 25 Mg Tablet) 25 mg PO DAILY [facility]; Protocol Last Admin: 06/29/22 08:37 Dose: 25 mg Documented By: MATHEW Cefepime HCl 2 gm/ Sodium (Chloride) 50 mls @ 100 mls/hr IV Q8H [facility] Last Infusion: 06/29/22 06:55 Dose: 0 mls/hr Documented By: FLAKITO Metronidazole (Flagyl) 500 mg in 100 mls @ 100 mls/hr IV Q12H [facility] Last Infusion: 06/29/22 06:46 Dose: 0 mls/hr Documented By: FLAKITO Vancomycin HCl 1,000 mg/ (Sodium Chloride) 270 mls @ 270 mls/hr IV Q12H [facility] Last Infusion: 06/29/22 09:52 Dose: 0 mls/hr Documented By: MATHEW Insulin Glargine (Insulin Glargine,Hum.Rec.Anlog 100 Unit/Ml 10 Ml Vial) 28 unit SUBCUT DAILY [facility] Last Admin: 06/29/22 08:36 Dose: 28 unit Documented By: MATHEW Insulin Human Lispro (Insulin Lispro 100 Unit/Ml 3 Ml Vial) 0 unit SUBCUT QIDACHS [facility]; Protocol Last Admin: 06/29/22 11:35 Dose: 4 unit Documented By: MATHEW Insulin Human Lispro (Insulin Lispro 100 Unit/Ml 3 Ml Vial) 5 unit SUBCUT TIDAC [facility] Last Admin: 06/29/22 11:35 Dose: 5 unit Documented By: MATHEW Levothyroxine Sodium (Levothyroxine Sodium 150 Mcg Tablet) 150 mcg PO DAILY@0600 [facility] Last Admin: 06/29/22 05:09 Dose: 150 mcg Documented By: FLAKITO Lisinopril (Lisinopril 10 Mg Tablet) 10 mg PO DAILY [facility]; Protocol Last Admin: 06/29/22 08:37 Dose: 10 mg Documented By: MATHEW Non-Formulary Medication (Simvastatin) 40 mg PO DAILY [facility] Ondansetron HCl (Ondansetron Hcl 4 Mg/2 Ml Vial) 4 mg IVPUSH Q8H PRN PRN Reason: Nausea and Vomiting Pharmacy Consult (Consult Rx Perform Med Rec) 1 each MISCELLANE ONCE PRN PRN Reason: Consult order Pharmacy Consult (Consult Rx Vancomycin Dosing) 1 each MISCELLANE DAILY PRN PRN Reason: Consult order Sodium Chloride (0.9 % Sodium Chloride Flush 3 Ml Syringe) 3 ml IVFLUSH QSHIFT [facility] Last Admin: 06/29/22 08:38 Dose: 3 ml Documented By: MATHEW Vitamin D (Cholecalciferol (Vitamin D3) 25 Mcg Tablet) 50 mcg PO DAILY [facility] Last Admin: 06/29/22 08:38 Dose: 50 mcg Documented By: MATHEW Labs 06/21/22 06:25 06/29/22 05:08 Labs: Laboratory Results - last 24 hr 06/28/22 06/28/22 06/28/22 11:40 16:04 20:52 Estim Creat Clear Calc Estimated GFR POC Glucose 125 H 205 H 177 H COVID-19 ([facility]) COVID-19 Clin Com 06/29/22 06/29/22 06/29/22 05:08 07:22 08:50 Estim Creat Clear Calc 97.0 Estimated GFR > 60 POC Glucose 169 H COVID-19 ([facility]) Negative COVID-19 Clin Com See Note 06/29/22 11:04 Estim Creat Clear Calc Estimated GFR POC Glucose 227 H COVID-19 ([facility]) COVID-19 Clin Com Assessment and Plan (1) Diabetic foot ulcer: Status: Acute Plan 51-year-old male with past medical history of? diabetes presents to the hospital with diabetic foot wound # Diabetic right foot wound with cellulitis Right leg swelling, warmth and redness improved, ? CRP 9.85, ESR 67, WBC normalized from 12.200 to 9.2, blood cultures negative foot x-ray showed soft tissue wound/ulcer overlying lateral aspect of the 5th metatarsal head no evidence of osteomyelitis MRI distorted by motion artifact ? osteo, recommendation to repeat MRI vs CERETEC ? ID --six weeks IV Ertapenem or Meropenem Weekly CBC,creatine,SGOT PICC line in place and to STR when bed available # Diabetes with peripheral neuropathy since patient has no position sense also complaining of numbness - continue Lantus and insulin sliding scale and diabetic diet, stable blood sugar # HTN - stable - continue home antihypertensives lisinopril 10 mg, hydrochlorothiazide 25 mg and Norvasc 10 mg daily # Hypothyroidsm - continue? levothyroxine ?given patient's diabetic foot wound requiring IV antibiotics patient will need continued inpatient hospital stay for further management and monitoring Time Spent With Patient Time: Total time managing care of this patient today ____ minutes. Quality Stroke Does the patient have a stroke diagnosis?: No VTE Prior VTE?: No VTE Risk Level:: Medical - moderate - high VTE Device Contraindication: Treatment Not Indicated VTE Drug Contraindication: N/A - Med Ordered
[2022-06-29] MEDS: Ertapenem Sodium 1 GM in 0.9 % Sodium Chloride 50 ML IV (13:13)
[2022-06-29 15:14] VITALS: BP 130/77; PULSE 75; RESP 16; TEMP 36.3; O2SAT 98
== END 2022-06-29 16:11 | disposition skilled nursing facility (03) | DRG 638 ==
LOC: HO.ED 22:00 → HO.EDOVER 23:23 → HO.S3 06-21 10:00
PROVIDERS: Hospitalist; Admitting Provider Internal Medicine; Emergency Provider Emergency Medicine; PCP Internal Medicine; Visit Provider Internal Medicine
PROC: 02HV33Z Insertion of Infusion Device into Superior Vena Cava, Percutaneous Approach (ICD-10-PCS; principal; 2022-06-28 09:30)
DX: E11.621 Type 2 diabetes mellitus with foot ulcer (principal); L03.115 Cellulitis of right lower limb; L97.419 Non-pressure chronic ulcer of right heel and midfoot with unspecified severity; E06.3 Autoimmune thyroiditis; E78.5 Hyperlipidemia, unspecified; E11.42 Type 2 diabetes mellitus with diabetic polyneuropathy; E11.628 Type 2 diabetes mellitus with other skin complications; Z20.822 Contact with and (suspected) exposure to COVID-19; Z88.8 Allergy status to other drugs, medicaments and biological substances; Z79.4 Long term (current) use of insulin; Z79.84 Long term (current) use of oral hypoglycemic drugs; Z79.890 Hormone replacement therapy; Z79.899 Other long term (current) drug therapy
CPT/HCPCS: 36415; 36573; 73620; 73720; 80048; 80076; 80202; 82565; 82947; 83605; 84443; 85025; 85652; 86140; 87040; 87635; 97116; 97161; 99285; A9585; C1751; J0692; J1335; J1650; J2060; J2543; J3370; J3371

== ENCOUNTER 2022-09-03 17:14 | Inpatient (IN) | payer OTHER, SELFPAY ==
--- NOTE | ~2022-09-03 | XR_ITS ---
EXAMINATION: CHEST AND RIGHT FOOT. CLINICAL INFORMATION: Fever, WBC with elevation. COMPARISON: Chest 05/23/2021 and right foot 06/12/2022 TECHNIQUE: Chest one view. Right foot 3 views. FINDINGS: Chest: The lungs are hypoexpanded but clear of acute pneumonic process. There is mild prominence of pulmonary vascularity but no congestion seen. The heart size and pulmonary vascularity is normal. No gross bony abnormality seen. Right foot: There is mild hallux valgus deformity of first MTP joint. No visible fracture or bony erosive changes seen. There is no periosteal thickening. Mild right foot soft tissue swelling is seen. XR/XR chest 1V IMPRESSION: 1. Hypoexpanded lungs without acute process. 2. Mild hallux valgus deformity first MTP joint. No visible acute fracture or dislocation seen. There is mild right foot soft tissue swelling.
--- NOTE | ~2022-09-03 | XR_ITS ---
EXAMINATION: XR SKULL CLINICAL INFORMATION: Pre-MRI clearance COMPARISON: None TECHNIQUE: 5 views of the skull were obtained. FINDINGS: 2 views of the skull reveal no visible radiopaque metallic foreign body in the orbits or the skull. No gross bony abnormality. XR/XR skull <4V IMPRESSION: No visible radiopaque metallic foreign body seen in the orbits or the skull.
--- NOTE | ~2022-09-03 | MR_ITS ---
EXAMINATION: MR FOOT WITHOUT AND WITH CONTRAST, RIGHT CLINICAL INFORMATION: Osteomyelitis. Fever. Elevated white blood cell count. COMPARISON: Multiple priors, most recent right foot radiographs dated 09/03/2022 and right foot MRI dated 06/25/2022. TECHNIQUE: Multisequence MR imaging of the right foot was obtained before and after the IV administration of 10 mL Gadavist contrast on a high-field strength scanner. FINDINGS: Soft tissue ulceration along the plantar/lateral aspect of the 5th metatarsophalangeal joint measuring up to 2.6 cm in craniocaudal dimension with adjacent skin thickening and subcutaneous edema consistent with acute cellulitis. There is complex, peripherally enhancing fluid which extends within the adjacent soft tissues distally along the 4th and 5th proximal phalanges as well as adjacent to the 4th and 5th metatarsophalangeal joints. Complex fluid extends along the plantar aspect of the foot into the subcutaneous tissues as well as along the myotendinous junctions of the flexor digitorum and flexor hallucis longus tendons, consistent with abscess formation. Overall, this measures up to 13.7 cm in AP dimension and extends proximally beyond the imaged [id number]. There is increased T2 and decreased T1 signal within the 4th and 5th metatarsal heads as well as the proximal phalanges with postcontrast enhancement and joint effusions, consistent with osteomyelitis and septic arthritis. Prominent dorsal subcutaneous edema. Edema and atrophy of the intrinsic foot musculature which can be seen in diabetic patients. The visualized flexor and extensor tendons do not demonstrate a transverse tendon tear or tendon retraction. MR/MR foot RT wo/w con IMPRESSION: 1. Soft tissue ulceration along the plantar/lateral aspect of the 5th metatarsophalangeal joint with adjacent cellulitis. Complex, peripherally enhancing fluid extending along the 4th and 5th proximal phalanges as well as along the plantar aspect of the foot into the subcutaneous tissues as well as along the myotendinous junctions of the flexor digitorum and flexor hallucis longus tendons, consistent with abscess formation. Overall, this measures up to 13.7 cm in AP dimension and extends proximally beyond the imaged [id number]. Findings are new when compared to the prior MRI. 2. Findings consistent with osteomyelitis and septic arthritis at the 4th and 5th metatarsophalangeal joints as well as the fourth and fifth proximal phalanges, new when compared to the prior MRI. 3. Prominent dorsal subcutaneous edema. 4. Edema and atrophy of the intrinsic foot musculature which can be seen in diabetic patients.
--- NOTE | ~2022-09-03 | XR_ITS ---
EXAMINATION: CHEST AND RIGHT FOOT. CLINICAL INFORMATION: Fever, WBC with elevation. COMPARISON: Chest 05/23/2021 and right foot 06/12/2022 TECHNIQUE: Chest one view. Right foot 3 views. FINDINGS: Chest: The lungs are hypoexpanded but clear of acute pneumonic process. There is mild prominence of pulmonary vascularity but no congestion seen. The heart size and pulmonary vascularity is normal. No gross bony abnormality seen. Right foot: There is mild hallux valgus deformity of first MTP joint. No visible fracture or bony erosive changes seen. There is no periosteal thickening. Mild right foot soft tissue swelling is seen. XR/XR foot RT min 3V IMPRESSION: 1. Hypoexpanded lungs without acute process. 2. Mild hallux valgus deformity first MTP joint. No visible acute fracture or dislocation seen. There is mild right foot soft tissue swelling.
--- NOTE | ~2022-09-03 | US_ITS ---
EXAMINATION: NONINVASIVE ASSESSMENT OF THE RIGHT LOWER EXTREMITIES Justin Mahajan MD CLINICAL INFORMATION: Nonhealing ulcer with diabetes TECHNIQUE: Bilateral lower extremity duplex ultrasound was performed with velocity measurements and waveform analysis in the common femoral arteries, profunda femoris arteries, proximal mid and distal superficial femoral arteries, popliteal arteries and tibial vessels. This study was performed only at rest. COMPARISON: None FINDINGS: Velocities in cm/sec and phasicity as well as the presence of plaque are reported below. RIGHT LEG: Mild plaque is present. Multiphasic flow is seen throughout. The right peroneal artery is not seen. A prominent right groin lymph node measuring 2.5 cm is present. Common Femoral: 89 Profunda Femoris: 52 Proximal SFA: 111 Mid SFA: 93 Distal SFA: 104 Popliteal: 108 Posterior Tibial: 100 Peroneal: Not seen US/US arterial duplex LE RT IMPRESSION: There is no evidence of any hemodynamically significant lower extremity arterial disease by waveform or duplex Doppler criteria at rest.
--- NOTE | ~2022-09-03 | XR_ITS ---
EXAMINATION: XR ABDOMEN KUB CLINICAL INDICATION: MRI request COMPARISON: No recent comparison. TECHNIQUE: AP view of the abdomen. 3 images. FINDINGS: No metallic/radiopaque foreign bodies are seen. Nonobstructive bowel gas pattern. No significant stool burden. XR/XR KUB IMPRESSION: No metallic/radiopaque foreign bodies are seen.
[2022-09-03 17:25] VITALS: BP 140/70; BP 96/46; PULSE 84; PULSE 85; RESP 20; TEMP 37.7; O2SAT 97; O2SAT 98; BMI 40.4
[2022-09-03 17:47] VITALS: BP 101/48; PULSE 82; RESP 20
[2022-09-03 17:52] LABS: MANUAL DIFF FLAG NO
[2022-09-03 17:54] LABS: Basophils Absolute Auto 0.1 X10*3/uL (0.0-0.2); Basophils Percent Auto 0.3 % (0-2); Eosinophils Absolute Auto 0.2 X10*3/uL (0.0-0.4); Eosinophils Percent Auto 0.9 % (0-4); Hematocrit 24.2 % (42.0-52.0); Hemoglobin 8.4 g/dl (14.0-18.0); Imm Gran Abs Auto 0.22 X10*3/uL (0.00-0.03); Imm Gran Pct Auto 1.1 % (0.0-0.4); Lymphocytes Absolute Auto 1.3 X10*3/uL (1.2-4.9); Lymphocytes Percent Auto 6.3 % (20-40); Mean Corpuscular HGB Conc 34.7 g/dl (31.0-36.0); Mean Corpuscular Hemoglobin 28.1 pg (27.0-33.0); Mean Corpuscular Volume 80.9 fL (80.0-98.0); Mean Platelet Volume 10.8 fL (9.4-12.4); Monocytes Absolute Auto 1.3 X10*3/uL (0.1-1.2); Monocytes Percent Auto 6.1 % (2-11); Neutrophils Absolute Auto 17.5 x10*3/uL (2.0-8.3); Neutrophils Percent Auto 85.3 % (45-73); Platelet Count 264 X10*3/uL (160-400); Red Blood Count 2.99 X10*6/uL (4.60-5.80); Red Cell Distribution Width 12.6 % (11.0-16.0); White Blood Count 20.5 X10*3/uL (4.8-10.8)
--- NOTE | 2022-09-03 18:06 | ED.GENADULT ---
HPI - General Adult General Chief complaint: Recheck/Abnormal Lab/Rx Stated complaint: Abnormal labs Time Seen by Provider: 09/03/22 17:23 Source: patient and EMS Mode of arrival: EMS Limitations: no limitations History of Present Illness HPI narrative: 52-year-old male with diabetes presents with right lower extremity wound from [facility] facility. Patient had some routine lab work was found to have not significantly elevated white blood cell count. Also x-rays were concerning for osteomyelitis. Patient denies any fever, chills, nausea, vomiting. Symptoms are described as mild to moderate nature. There is no clear relieving or exacerbating features. [place] [address]. He was sent for evaluation. Related Data Home Medications Medication Instructions Recorded Confirmed dulaglutide 1.5 mg/0.5 mL 1.5 mg subcut FR 06/20/22 09/03/22 subcutaneous pen injector (Trulicity) insulin aspart U-100 100 unit/mL See Protocol subcut QIDACHS 06/20/22 09/03/22 (3 mL) subcutaneous pen (Novolog FlexPen U-100 Insulin aspart) insulin degludec 200 unit/mL (3 40 unit subcut DAILY 06/20/22 09/03/22 mL) subcutaneous pen (Tresiba FlexTouch U-200 insulin) metformin 500 mg tablet 500 mg PO BIDWM 06/20/22 09/03/22 doxycycline hyclate 100 mg tablet 100 mg PO BID 09/03/22 09/03/22 ondansetron HCl 4 mg tablet 4 mg PO Q6H PRN Nausea 09/03/22 09/03/22 Previous Rx's Medication Instructions Recorded escitalopram oxalate 10 mg tablet 10 mg PO DAILY 90 days #90 tabs 05/22/21 blood sugar diagnostic (FreeStyle #50 ea 05/30/21 Precision Gama Strips) flash glucose sensor (FreeStyle #2 ea 06/01/21 Leonel 2 Sensor kit) ezetimibe 10 mg tablet (Zetia) 10 mg PO DAILY 90 days #90 tabs 08/31/21 fenofibrate 54 mg tablet 54 mg PO DAILY 90 days #90 tabs 09/20/21 right knee brace #1 ea 10/09/21 wrist splint bilateral #2 ea 10/09/21 high shower chair #1 ea 10/31/21 raised toilet seat #1 ea 11/01/21 levothyroxine 150 mcg tablet 150 mcg PO DAILY 90 days #90 tabs 03/23/22 gabapentin 100 mg capsule 100 mg PO Q8H 90 days #270 caps 04/19/22 hydrochlorothiazide 25 mg tablet 25 mg PO DAILY 90 days #90 tabs 04/19/22 lisinopril 10 mg tablet 10 mg PO DAILY 90 days #90 tabs 05/04/22 amlodipine 10 mg tablet 10 mg PO DAILY 30 days #30 tabs 06/07/22 cholecalciferol (vitamin D3) 50 50 mcg PO DAILY 90 days #90 caps 06/08/22 mcg (2,000 unit) capsule simvastatin 40 mg tablet 40 mg PO DAILY 90 days #90 tabs 09/03/22 Allergies Allergy/AdvReac Type Severity Reaction Status Date / Time atorvastatin [ATORVASTATIN] Allergy Unknown skin Verified 12/27/21 10:50 eruption PMFSH Past Medical History Medical History Acute kidney injury Autoimmune thyroiditis Bilateral hand pain Cataracts, both eyes CHF (congestive heart failure) Cognitive developmental delay Diabetes Diabetic ketoacidosis Edema Essential hypertension HTN (hypertension) Hyperkalemia Hyperlipidemia Hyperlipidemia LDL goal <100 Hyponatremia Hypothyroid Hypovitaminosis D Infection of penis Left foot pain Obesity due to excess calories Proteinuria Right foot pain Right knee pain Type 2 diabetes mellitus with hyperglycemia, with long-term current use of insulin Type 2 diabetes mellitus with other diabetic kidney complication Surgical History Hx of cataract surgery Hx of removal of cyst Family History Family History Father HTN (hypertension) Mother Diabetes mellitus Maternal Grandmother Diabetes mellitus Social History Social History Household Members: Other Household Members Other:: [facility], [place] Housing: House Housing Other:: [facility], [place] Do you presently have visiting nurse or other home services: No Alcohol intake: never Patient Tobacco Use Status: Never used Tobacco e-Cigarette/Vaping Use: Never Used Second Hand Smoke Exposure: No Substance Use Type: Caffiene Advance Directives: No Advance Directives Information Provided: No service: No Current occupational status: disabled Cognitive needs: Yes Hearing needs: No Vision needs: No Physical Exam ED Vital Signs: Vital Signs - 24 hr 09/03/22 17:25 09/03/22 17:47 09/03/22 19:31 Temperature 99.8 F 99.1 F Pulse Rate 84 82 85 Respiratory Rate 20 20 18 Blood Pressure 96/46 L 101/48 L 97/49 L Pulse Oximetry 97 96 Oxygen Delivery Method Room Air Room Air BMI result Body Mass Index 40.4 GEN: Well developed, obese, no acute distress, alert, oriented HEENT: Normocephalic, atraumatic, normal external ears, nose appears normal, no oropharyngeal edema or exudates Eyes: Normal to appearance Neck: Supple, no lymphadenopathy Respiratory: Talks in complete sentences, no respiratory distress, clear to auscultation bilaterally Cardiovascular: Regular rate and rhythm, no murmurs rubs or gallops Abdomen: Soft, nontender, nondistended, no guarding, no rebound Back: No CVA tenderness Extremities: No clubbing cyanosis or edema Neurologic: No focal neurologic deficits, cranial nerves 2-12 intact, strength is 5/5 bilaterally, gait normal Skin: Significant wound to the plantar aspect of the right foot as well as likely gangrene/cyanosis of the right 5th digit foot Course Course Course Narrative: 52-year-old male presents with abnormal lab tests [place] [address], concerns for osteomyelitis. On my examination, he had wound to the plantar aspect of the right foot as well as cyanosis of the right 5th digit suggestive of vascular related issues. I did review [place] outpatient [place] [address], x-ray results concerning for osteomyelitis. Will repeat laboratory analysis, add an ESR, CRP, BMP, blood cultures, lactic acid. Will order cefepime and vancomycin. Patient will require broad-spectrum antibiotics for MRSA and Pseudomonas. Reevaluation(s) Reevaluation #1: Patient workup time. I do believe patient has some lucencies on x-ray that could be consistent with osteomyelitis. Patient is already been on antibiotics. Discussed care with the hospitalist. He agrees to accept the patient at this time. Time: 19:38 Medications Administered Discontinued Medications Generic Name Dose Route Start Last Admin Trade Name Freq PRN Reason Stop Dose Admin Cefepime HCl 1 gm/ Sodium 50 mls @ 100 mls/hr 09/03/22 17:30 09/03/22 18:34 Chloride IV 09/03/22 17:59 100 mls/hr ONCE ONE Administration Medical Decision Making Medical Decision Making [facility] Narrative: Patient presents with abnormal lab testing. He is currently being treated at [facility] for right lower extremity wounds. Examination did reveal plantar aspect wounds as well as right 5th digit cyanosis concerning for vascular related issues. [place] report [place] [address]. Will repeat studies, add on a lactic acid, ESR CRP, x-rays of the right foot and chest. Will start vancomycin and cefepime to cover for MRSA and Pseudomonas. Patient will likely need to be hospitalized. Differential Diagnosis Differential Diagnoses: The differential diagnosis associated with the presentation includes (Cellulitis, osteomyelitis, lab error, anemia, thrombocytopenia, leukocytosis) Leukocytosis, osteomyelitis, cellulitis, diabetic foot ulcer Admission/Observation Consideration of admission/observation: Escalation of care including admission/observation considered Lab Data [facility] Lab Attestation statement: I reviewed the patient's lab results. 09/03/22 17:45 Labs: Lab Results 09/03/22 09/03/22 09/03/22 Range/Units 17:43 17:45 18:15 WBC 20.5 H (4.8-10.8) X10*3/uL RBC 2.99 L D (4.60-5.80) X10*6/uL Hgb 8.4 L D (14.0-18.0) g/dl Hct 24.2 L D (42.0-52.0) % MCV 80.9 (80.0-98.0) fL MCH 28.1 (27.0-33.0) pg MCHC 34.7 (31.0-36.0) g/dl RDW 12.6 (11.0-16.0) % Plt Count 264 D (160-400) X10*3/uL MPV 10.8 (9.4-12.4) fL Immature Gran % (Auto) 1.1 H (0.0-0.4) % Neut % (Auto) 85.3 H (45-73) % Lymph % (Auto) 6.3 L (20-40) % [place] % (Auto) 6.1 (2-11) % Eos % (Auto) 0.9 (0-4) % Baso % (Auto) 0.3 (0-2) % Lymph # (Auto) 1.3 (1.2-4.9) X10*3/uL [place] # (Auto) 1.3 H (0.1-1.2) X10*3/uL Eos # (Auto) 0.2 (0.0-0.4) X10*3/uL Baso # (Auto) 0.1 (0.0-0.2) X10*3/uL Abs Immat Gran (auto) 0.22 H (0.00-0.03) X10*3/uL Absolute Neuts (auto) 17.5 H (2.0-8.3) x10*3/uL Absolute Nucleated RBC 0.000 (0.0-0.012) X10*3/uL Nucleated RBC % (auto) 0.0 (0.0-0.2) /100WBC ESR (0-15) MM/HR Sodium 125 L (135-145) mmol/L Potassium 3.6 (3.3-5.1) mmol/L Chloride 95 L (96-108) mmol/L Carbon Dioxide 18 L (22-29) mmol/L Anion Gap 16 (12-20) BUN 57 H (9-16) mg/dL Creatinine 2.03 H (0.5-1.4) mg/dL Estim Creat Clear Calc 54.7 Estimated GFR 35 Random Glucose 260 H (60-115) mg/dL Lactic Acid 0.9 (0.5-2.0) mmol/L Calcium 7.5 L D (8.4-10.2) mg/dL C-Reactive Protein 25.84 H (< or = 0.50) mg/dL COVID-19 (ZURDO) (Negative) COVID-19 Clin Com 09/03/22 09/03/22 Range/Units 18:15 18:15 WBC (4.8-10.8) X10*3/uL RBC (4.60-5.80) X10*6/uL Hgb (14.0-18.0) g/dl Hct (42.0-52.0) % MCV (80.0-98.0) fL MCH (27.0-33.0) pg MCHC (31.0-36.0) g/dl RDW (11.0-16.0) % Plt Count (160-400) X10*3/uL MPV (9.4-12.4) fL Immature Gran % (Auto) (0.0-0.4) % Neut % (Auto) (45-73) % Lymph % (Auto) (20-40) % [place] % (Auto) (2-11) % Eos % (Auto) (0-4) % Baso % (Auto) (0-2) % Lymph # (Auto) (1.2-4.9) X10*3/uL [place] # (Auto) (0.1-1.2) X10*3/uL Eos # (Auto) (0.0-0.4) X10*3/uL Baso # (Auto) (0.0-0.2) X10*3/uL Abs Immat Gran (auto) (0.00-0.03) X10*3/uL Absolute Neuts (auto) (2.0-8.3) x10*3/uL Absolute Nucleated RBC (0.0-0.012) X10*3/uL Nucleated RBC % (auto) (0.0-0.2) /100WBC ESR 115 H (0-15) MM/HR Sodium (135-145) mmol/L Potassium (3.3-5.1) mmol/L Chloride (96-108) mmol/L Carbon Dioxide (22-29) mmol/L Anion Gap (12-20) BUN (9-16) mg/dL Creatinine (0.5-1.4) mg/dL Estim Creat Clear Calc Estimated GFR Random Glucose (60-115) mg/dL Lactic Acid (0.5-2.0) mmol/L Calcium (8.4-10.2) mg/dL C-Reactive Protein (< or = 0.50) mg/dL COVID-19 (ZURDO) Negative (Negative) COVID-19 Clin Com See Note Independent Interpretation I performed an independent interpretation of an: Plain X-Ray (Chest x-ray no acute cardiopulmonary disease, low lung volumes with vascular crowding, foot x-ray of the right foot possible proximal phalanx osteomyelitis as indicated by lucencies within the cortex) Independent Historian Clinical information obtained from an independent historian. History obtained from or confirmed by: EMS External Record Review External record reviewed: Inpatient record and Outpatient record Tests considered The following testing was considered but not selected: MRI/CT scan Prescription Management I considered prescription management with: Antibiotic Social Determinants Patient?s care significantly limited by Social Determinants of Health including: Other Social Determinant of Health Discharge Plan Discharge Clinical Impression: Type 2 diabetes mellitus with other diabetic kidney complication, Diabetic foot ulcer, Osteomyelitis Patient Disposition: Admitted As Inpatient
[2022-09-03 18:07] LABS: Lactic Acid 0.9 mmol/L (0.5-2.0)
--- NOTE | 2022-09-03 18:12 | PHA.MEDREC ---
Pharmacy Consult ? Medication Reconciliation Pharmacy has completed the medication reconciliation. [facility]
[2022-09-03] MEDS: cefEPime HCl 1 GM in 0.9 % Sodium Chloride 50 ML IV (18:34)
[2022-09-03 18:38] LABS: COVID-19 Test Negative (Negative); IDNOW Serial# 08D9AD1C
[2022-09-03 18:57] LABS: Anion Gap 16 (12-20); Blood Urea Nitrogen 57 mg/dL (9-16); C Reactive Protein 25.84 mg/dL (< or = 0.50); Calcium 7.5 mg/dL (8.4-10.2); Carbon Dioxide 18 mmol/L (22-29); Chloride 95 mmol/L (96-108); Creatinine Clr Calc Pharmacy 54.7; Estimated Glomerular Filt Rate 35; Glucose Random 260 mg/dL (60-115); Potassium 3.6 mmol/L (3.3-5.1); Sodium 125 mmol/L (135-145)
[2022-09-03 19:07] LABS: Erythrocyte Sedimentation Rate 115 MM/HR (0-15)
[2022-09-03 19:31] VITALS: BP 97/49; PULSE 85; RESP 18; TEMP 37.3; O2SAT 96
--- NOTE | 2022-09-03 20:39 | PM.IMHP ---
History of Present Illness Date of Service: 09/03/22 Attending physician on admission: Laureano Araujo Chief Complaint: food infection 52-year-old male with history of insulin-dependent type 2 diabetes, hypothyroidism, hyperlipidemia, hypertension, congestive heart failure, proteinuria, and nonhealing diabetic left foot ulcer who is morbidly obese presented to the ED from [facility] where he resides for evaluation of right lower extremity wound. Per ED report, he had routine lab work performed at the nursing facility with significant leukocytosis as well as x-rays concerning for osteomyelitis. The patient denies any fevers, chills, nausea, vomiting. He is reporting 10/10 pain in the right foot. He states he is ambulatory at baseline. He states the foot ulcer has been present for several months. He was recently admitted and discharged on 06/29/2022 due to diabetic right foot wound with cellulitis. At that time, MRI was negative for osteomyelitis though was seen by ID was still recommending 6 weeks IV ertapenem which he completed on 08/10/2022. On arrival, blood pressure soft but no hypotension. Vitals otherwise stable. Leukocytosis of 20.5. Creatinine 2.03, BUN 57, sodium 125, potassium 3.6, chloride 95, CO2 18, glucose 260. ESR 112, CRP 25. X-ray of the right foot showing mild soft tissue swelling but no periosteal thickening or bony erosion reported by Radiology. Patient being treated empirically with vancomycin and cefepime. Review of Systems Review of Systems: Yes all other systems are reviewed and are negative [facility] Medical History Acute kidney injury Autoimmune thyroiditis Bilateral hand pain Cataracts, both eyes CHF (congestive heart failure) Cognitive developmental delay Diabetes Diabetic ketoacidosis Edema Essential hypertension HTN (hypertension) Hyperkalemia Hyperlipidemia Hyperlipidemia LDL goal <100 Hyponatremia Hypothyroid Hypovitaminosis D Infection of penis Left foot pain Obesity due to excess calories Proteinuria Right foot pain Right knee pain Type 2 diabetes mellitus with hyperglycemia, with long-term current use of insulin Type 2 diabetes mellitus with other diabetic kidney complication Family History Father HTN (hypertension) Mother Diabetes mellitus Maternal Grandmother Diabetes mellitus Surgical History Hx of cataract surgery Hx of removal of cyst Social History Household Members: Other Household Members Other:: Fina tejada Housing: House Housing Other:: [facility] [place] Do you presently have visiting nurse or other home services: No Alcohol intake: never Patient Tobacco Use Status: Never used Tobacco e-Cigarette/Vaping Use: Never Used Second Hand Smoke Exposure: No Substance Use Type: Caffiene Advance Directives: No Advance Directives Information Provided: No service: No Current occupational status: disabled Cognitive needs: Yes Hearing needs: No Vision needs: No Meds Allergies Allergy/AdvReac Type Severity Reaction Status Date / Time atorvastatin [ATORVASTATIN] Allergy Unknown skin Verified 12/27/21 10:50 eruption Active Medications: Current Medications Acetaminophen (Acetaminophen 325 Mg Tablet) 650 mg PO Q6H PRN PRN Reason: Pain, Mild (Pain Scale 1-3) Heparin Sodium (Porcine) (Heparin Sodium,Porcine 5,000 Unit/Ml Vial) 5,000 unit SUBCUT Q12H CRISPIN Sodium Chloride (Ns) 1,000 mls @ 100 mls/hr IVCONT .Q10H CRISPIN Cefepime HCl 2 gm/ Sodium (Chloride) 50 mls @ 100 mls/hr IV Q12H CRISPIN Morphine Sulfate (Morphine Sulfate 4 Mg/Ml Cartridge) 2 mg IVPUSH Q4H PRN; Protocol PRN Reason: Pain, Severe (Pain Scale 7-10) Ondansetron HCl (Ondansetron Hcl 4 Mg/2 Ml Vial) 4 mg IVPUSH Q8H PRN PRN Reason: Nausea and Vomiting Pharmacy Consult (Consult Rx Perform Med Rec) 1 each MISCELLANE ONCE PRN PRN Reason: Consult order Pharmacy Consult (Consult Rx Vancomycin Dosing) 1 each MISCELLANE DAILY PRN PRN Reason: Consult order Pharmacy Consult (Consult Rx Vancomycin Dosing) 1 each MISCELLANE DAILY PRN PRN Reason: Consult order Sodium Chloride (0.9 % Sodium Chloride Flush 3 Ml Syringe) 3 ml IVFLUSH QSHIFT CRISPIN Home Medications Medication Instructions Recorded Confirmed Last Taken Type dulaglutide 1.5 mg/0.5 mL 1.5 mg subcut FR 06/20/22 09/03/22 06/15/22 History subcutaneous pen injector (Trulicity) insulin aspart U-100 100 unit/mL See Protocol subcut QIDACHS 06/20/22 09/03/22 06/20/22 History (3 mL) subcutaneous pen (Novolog FlexPen U-100 Insulin aspart) insulin degludec 200 unit/mL (3 40 unit subcut DAILY 06/20/22 09/03/22 06/20/22 History mL) subcutaneous pen (Tresiba FlexTouch U-200 insulin) metformin 500 mg tablet 500 mg PO BIDWM 06/20/22 09/03/22 06/20/22 History doxycycline hyclate 100 mg tablet 100 mg PO BID 09/03/22 09/03/22 Unknown History ondansetron HCl 4 mg tablet 4 mg PO Q6H PRN Nausea 09/03/22 09/03/22 Unknown History Physical Exam Vital Signs and Narrative: Vital Signs: Last Vital Signs Temp 99.1 F 09/03/22 19:31 Pulse 85 09/03/22 19:31 Resp 18 09/03/22 19:31 BP 97/49 L 09/03/22 19:31 Pulse Ox 96 09/03/22 19:31 O2 Del Method 09/03/22 19:31 BMI result Body Mass Index 40.4 Constitutional - Awake and Alert, No apparent distress Eyes - PERRLA, EOMI Cardiovascular - S1S2, RRR, 2+ edema RLE. Right pedal pulse nonpalpable (edema likely contributory) Respiratory - Normal lung expansion, Normal respiratory effort, No respiratory distress, CTA bilaterally Gastrointestinal - NT / ND; +BS; No rebound or guarding Extremities - no calf tenderness bilaterally, no swelling Skin - Warm/Dry. Right foot warm to touch with shallow ulceration plantar surface right foot with fluctuance appreciated and faint erythema of the lateral aspect of the foot. There is also dusky appearance of the 5th toe and lateral aspect foot Neurological - Alert & oriented x3, 5/5 strength BUE and BLE Psychological - Appropriate affect Results Labs 09/03/22 17:45 09/03/22 18:15 Labs: Laboratory Results - last 24 hr 09/03/22 09/03/22 09/03/22 17:43 17:45 18:15 MCV 80.9 MCH 28.1 MCHC 34.7 RDW 12.6 Plt Count 264 D MPV 10.8 Immature Gran % (Auto) 1.1 H Neut % (Auto) 85.3 H Lymph % (Auto) 6.3 L [place] % (Auto) 6.1 Eos % (Auto) 0.9 Baso % (Auto) 0.3 Lymph # (Auto) 1.3 [place] # (Auto) 1.3 H Eos # (Auto) 0.2 Baso # (Auto) 0.1 Abs Immat Gran (auto) 0.22 H Absolute Neuts (auto) 17.5 H Absolute Nucleated RBC 0.000 Nucleated RBC % (auto) 0.0 ESR Anion Gap 16 Estim Creat Clear Calc 54.7 Estimated GFR 35 Random Glucose 260 H Lactic Acid 0.9 Calcium 7.5 L D C-Reactive Protein 25.84 H COVID-19 (ZURDO) COVID-19 Clin Com 09/03/22 09/03/22 18:15 18:15 MCV MCH MCHC RDW Plt Count MPV Immature Gran % (Auto) Neut % (Auto) Lymph % (Auto) [place] % (Auto) Eos % (Auto) Baso % (Auto) Lymph # (Auto) [place] # (Auto) Eos # (Auto) Baso # (Auto) Abs Immat Gran (auto) Absolute Neuts (auto) Absolute Nucleated RBC Nucleated RBC % (auto) ESR 115 H Anion Gap Estim Creat Clear Calc Estimated GFR Random Glucose Lactic Acid Calcium C-Reactive Protein COVID-19 (ZURDO) Negative COVID-19 Clin Com See Note Imaging Radiologist's Impressions: Impressions Chest X-Ray 09/03/22 18:00 IMPRESSION: 1. Hypoexpanded lungs without acute process. 2. Mild hallux valgus deformity first MTP joint. No visible acute fracture or dislocation seen. There is mild right foot soft tissue swelling. Foot X-Ray 09/03/22 18:00 IMPRESSION: 1. Hypoexpanded lungs without acute process. 2. Mild hallux valgus deformity first MTP joint. No visible acute fracture or dislocation seen. There is mild right foot soft tissue swelling. Assessment and Plan (1) Diabetic foot ulcer: Status: Acute (2) Osteomyelitis: Status: Acute (3) JJ (acute kidney injury): Status: Acute Plan 52-year-old male with history of insulin-dependent type 2 diabetes, hypothyroidism, hyperlipidemia, hypertension, congestive heart failure, proteinuria, and nonhealing diabetic left foot ulcer who is morbidly obese admitted for nonhealing diabetic foot ulcer of the right foot with cellulitis and question of osteomyelitis. # nonhealing right diabetic foot ulcer with cellulitis and question of osteomyelitis -recently completed 6 weeks IV ertapenem on 08/10 with recent discharge from [facility] on 06/29. MRI at that time negative for osteomyelitis, but extended antibiotics recommended by ID -x-ray of right foot negative for any bony erosions or periosteal thickening but showing soft tissue swelling -ESR 112, CRP 25 -leukocytosis 20.5, vitals stable. No sepsis -MRI right foot ordered -continue IV vancomycin and renally adjusted cefepime -has known PAD but no recent arterial imaging. Arterial Doppler ordered -appreciate General surgery and Infectious Disease input -follow CBC and blood cultures # acute kidney injury-likely related to hypovolemia -urine studies pending -continue IVF -avoid nephrotoxins -follow BMP # acute hyponatremia-likely related to hypovolemia and thiazide diuretic use -urine studies ordered -continue IVF -follow BMP -consider Nephrology consult if no improvement # insulin-dependent type 2 diabetes with hyperglycemia -hemoglobin A1c pending -continue basal insulin -Humalog on sliding scale -POC glucose -diabetic diet # hypertension-blood pressure soft -hold oral antihypertensives at this time -monitor BP # hypothyroidism -continue levothyroxine # hyperlipidemia -continue Zetia and statin # congestive heart failure, ejection fraction unspecified -euvolemic appearing, no acute exacerbation DVT prophylaxis-heparin Full code Patient requires inpatient stay of at least 2 midnights for management of nonhealing diabetic foot ulcer with cellulitis and question of osteomyelitis requiring IV antibiotics and expert consultation as well as for management of acute kidney injury with hyponatremia requiring IVF and close monitoring of renal function Time Spent With Patient Time: Total time managing care of this patient today ____ minutes. Quality Stroke Does the patient have a stroke diagnosis?: No VTE Prior VTE?: No VTE Risk Level:: Medical - moderate - high VTE Device Contraindication: Treatment Not Indicated VTE Drug Contraindication: N/A - Med Ordered
--- NOTE | 2022-09-03 21:09 | PHA.PROG ---
Admission Date/Time: September 03, 2022 20:22 Indication: BONE AND JOINT Weight in k kg Adjusted body weight in K.02 Eleva body weight in Kg: Obesity Dosing Indication % IBW: Serum Creatinine - Last 168 Hours 09/03/22 18:15 Creatinine 2.03 H Estimated CrCl and GFR - Last 168 Hours 09/03/22 18:15 Estim Creat Clear Calc 54.7 Estimated GFR 35 Vancomycin Loading Dose: 2000MG Current Vancomycin Dosing Regimen: 1000 MG Q24H Vancomycin Monitoring using AUC goal of 400 - 600 range with trough as surrogate marker: AUC 478, TROUGH 13.3 Date and Time for next Vancomycin Level to be drawn: RANDOM 09/05 @1800 Pharmacist Comments on Vancomycin Plan: - CONSIDER GOING TO 1250MG Q24 H IF SCR IMPROVES. PATIENT HAS JJ CURRENTLY Vancomycin dosing will take advantage of [employer] as a clinical decision support tool that uses Bayesian modeling to calculate individual patient's pharmacokinetic parameters and forecast the patient's drug concentration time course with the target goal AUC 24 range of 400 - 600 mg/L/hr.
[2022-09-03 21:15] LABS: Glucose, Whole Blood 229 mg/dL (60-115)
[2022-09-03 21:24] VITALS: BP 97/54; PULSE 82; RESP 12; TEMP 37.7
[2022-09-03] MEDS: Heparin Sodium,Porcine 5,000 UNIT/ML VIAL 5000 UNIT SUBCUT (21:28)
[2022-09-03] MEDS: Insulin Lispro 100 UNIT/ML 3 ML VIAL SUBCUT (21:28)
[2022-09-03] MEDS: Gabapentin 100 MG CAPSULE PO (21:28)
[2022-09-03] MEDS: 0.9 % Sodium Chloride 1,000 ML 100 ML IVCONT (21:29)
[2022-09-03 22:25] VITALS: BP 101/47; PULSE 79; RESP 17; TEMP 37.2; O2SAT 95
--- NOTE | 2022-09-03 22:29 | MHC.EDTECH ---
pt vitals were updated and a diet reji alvin and a ham sandwich was given
[2022-09-03] MEDS: Albumin Human 25 % 100 ML 133.33 ML IV (23:07)
[2022-09-04] MEDS: Albumin Human 25 % 100 ML 133.33 ML IV (00:01)
--- NOTE | 2022-09-04 02:35 | PC.NURSE ---
MRI form sent to the MRI dept via fax.
[2022-09-04 05:15] LABS: Estimated Average Glucose 174 mg/dL; Hemoglobin A1c % 7.7 %
--- NOTE | 2022-09-04 05:22 | MHC.EDTECH ---
a [place] cath was put on pt
[2022-09-04] MEDS: Levothyroxine Sodium 150 MCG TABLET PO (05:51)
[2022-09-04] MEDS: Gabapentin 100 MG CAPSULE PO ×3 (05:51→21:08)
[2022-09-04 06:03] VITALS: BP 111/56; PULSE 79; RESP 12; TEMP 37.1
[2022-09-04 06:04] LABS: MANUAL DIFF FLAG NO
[2022-09-04] MEDS: cefEPime HCl 2 GM in 0.9 % Sodium Chloride 50 ML IV ×2 (06:04→18:37)
[2022-09-04 06:07] LABS: Appearance Urine Cloudy; Color Urine Dark Yellow; Glucose Urine UA Negative (Negative); Leukocyte Esterase Urine Moderate (2+) (Negative); Nitrite Urine Negative (Negative); Specific Gravity - Urine 1.015 (1.005-1.025); UMIC TRIGGER UACC YES; Urine Blood Negative (Negative); Urine Ketones Trace mg/dL (Negative); Urine Protein Trace mg/dL (Neg-Trace)
[2022-09-04 06:07] LABS: Basophils Absolute Auto 0.1 X10*3/uL (0.0-0.2); Basophils Percent Auto 0.4 % (0-2); Eosinophils Absolute Auto 0.4 X10*3/uL (0.0-0.4); Eosinophils Percent Auto 1.8 % (0-4); Hematocrit 26.1 % (42.0-52.0); Hemoglobin 8.9 g/dl (14.0-18.0); Imm Gran Abs Auto 0.25 X10*3/uL (0.00-0.03); Imm Gran Pct Auto 1.3 % (0.0-0.4); Lymphocytes Absolute Auto 1.1 X10*3/uL (1.2-4.9); Lymphocytes Percent Auto 5.8 % (20-40); Mean Corpuscular HGB Conc 34.1 g/dl (31.0-36.0); Mean Corpuscular Hemoglobin 27.6 pg (27.0-33.0); Mean Corpuscular Volume 80.8 fL (80.0-98.0); Monocytes Absolute Auto 1.3 X10*3/uL (0.1-1.2); Monocytes Percent Auto 6.6 % (2-11); Neutrophils Absolute Auto 16.7 x10*3/uL (2.0-8.3); Neutrophils Percent Auto 84.1 % (45-73); Platelet Count 283 X10*3/uL (160-400); Red Blood Count 3.23 X10*6/uL (4.60-5.80); Red Cell Distribution Width 12.5 % (11.0-16.0); White Blood Count 19.8 X10*3/uL (4.8-10.8)
[2022-09-04 06:15] LABS: Osmolality Urine 389 mosm/kg (373-1093)
[2022-09-04 06:18] LABS: Bacteria Urine None Seen (None Seen); RBC Urine >20 /HPF (0-2); UACC Culture Trigger YES; WBC Urine 21-50 /HPF (0-5)
[2022-09-04 06:24] LABS: Creatinine Urine 188.64 mg/dL; Sodium Urine Random < 20.0 mmol/L
[2022-09-04 06:26] LABS: Anion Gap 14 (12-20); Blood Urea Nitrogen 52 mg/dL (9-16); Calcium 7.7 mg/dL (8.4-10.2); Carbon Dioxide 21 mmol/L (22-29); Chloride 98 mmol/L (96-108); Creatinine Clr Calc Pharmacy 75.6; Estimated Glomerular Filt Rate 50; Glucose Random 172 mg/dL (60-115); Potassium 3.8 mmol/L (3.3-5.1); Sodium 129 mmol/L (135-145)
[2022-09-04] MEDS: 0.9 % Sodium Chloride 1,000 ML 100 ML IVCONT ×2 (06:38→18:39)
--- NOTE | 2022-09-04 06:43 | HE.PHANOTE ---
Vancomycin Dosing Renal function is improving. SCr decreased from 2.03 to 1.47. Will increase dose to vancomyicn 1500 mg Q24H. New expected AUC 521 with a trough if 12.6. level is scheduled for 08/08 @ 1800. Binta Jaquez, CarlotaD
[2022-09-04 07:37] LABS: Glucose, Whole Blood 166 mg/dL (60-115)
--- NOTE | 2022-09-04 08:05 | P.CONGS_ITS ---
History of Present Illness Consult details Consult date: 09/04/22 Reason for consult: wound care Narrative: 52-year-old male patient with history of diabetes mellitus, autoimmune thyroiditis, obesity, hyperlipidemia, essential hypertension presenting with a right foot abscess, leukocytosis. Patient presented to the emergency department from a intermediate facility with increased redness swelling involving the right leg and foot. He also has necrotic changes involving the 5th toe. He is admitted to the hospitalist service for IV antibiotics. Surgical consultation was requested for diabetic foot wound management. Previous arterial Doppler studies yesterday were negative for hemodynamically significant arterial disease. Foot x-rays are consistent with soft tissue swelling but no erosive bony changes. Previous MRI of the foot revealed no evidence of osteomyelitis . Review of Systems Review of Systems: Yes all other systems are reviewed and are negative Constitutional: Constitutional: Denies chills, Denies fever(s), Denies headache(s), Denies poor appetite and Denies weakness ENT: Denies headache(s) Cardiovascular: Cardiovascular: Denies chest pain, Denies irregular heart rhythm, Denies palpitations and Denies dyspnea Respiratory: Respiratory: Denies cough, Denies excessive phlegm production and Denies dyspnea Gastrointestinal: Gastrointestinal: Denies abdominal pain, Denies bloating, Denies change in bowel habits, Denies constipation, Denies heartburn, Denies diarrhea, Denies nausea and Denies vomiting Genitourinary: Genitourinary: Denies difficulty urinating and Denies urinary frequency Musculoskeletal: Musculoskeletal: Denies back pain, Denies muscle weakness and Denies numbness Integumentary/Breasts: Skin/Breast: Denies changing lesions and Denies unusual bruising Neurologic: Denies headache(s), Denies numbness, Denies paresthesias and Denies weakness Psychiatric: Psychiatric: Denies anxiety and Denies depression Endocrine: Endocrine: Denies palpitations Hematologic/Lymphatic: Hematologic/Lymphatic: Denies lymphadenopathy PENDING SALE TO [facility] Past Medical History Medical History Acute kidney injury Autoimmune thyroiditis Bilateral hand pain Cataracts, both eyes CHF (congestive heart failure) Cognitive developmental delay Diabetes Diabetic ketoacidosis Edema Essential hypertension HTN (hypertension) Hyperkalemia Hyperlipidemia Hyperlipidemia LDL goal <100 Hyponatremia Hypothyroid Hypovitaminosis D Infection of penis Left foot pain Obesity due to excess calories Proteinuria Right foot pain Right knee pain Type 2 diabetes mellitus with hyperglycemia, with long-term current use of insulin Type 2 diabetes mellitus with other diabetic kidney complication Family History Family History Father HTN (hypertension) Mother Diabetes mellitus Maternal Grandmother Diabetes mellitus Surgical History Surgical History Hx of cataract surgery Hx of removal of cyst Social History Social History Household Members: Other [facility] [place] Housing: House Housing Other:: [facility], [place] Do you presently have visiting nurse or other home services: No Alcohol intake: never Patient Tobacco Use Status: Never used Tobacco Smoked in Last 30 Days: No e-Cigarette/Vaping Use: Never Used Second Hand Smoke Exposure: No Use of substances other than those prescribed or required for medical reasons: No Substance Use Type: Caffiene Advance Directives: No Advance Directives Information Provided: No Nutrition Risks: No Nutritional Risk service: No Current occupational status: disabled Cognitive needs: Yes Hearing needs: No Vision needs: No Meds Allergies Allergy/AdvReac Type Severity Reaction Status Date / Time atorvastatin [ATORVASTATIN] Allergy Unknown skin Verified 12/27/21 10:50 eruption Active Medications: Current Medications Acetaminophen (Acetaminophen 325 Mg Tablet) 650 mg PO Q6H PRN PRN Reason: Pain, Mild (Pain Scale 1-3) Ezetimibe (Ezetimibe 10 Mg Tablet) 10 mg PO DAILY [facility] Escitalopram Oxalate (Escitalopram Oxalate 10 Mg Tablet) 10 mg PO DAILY [facility] Fenofibrate (Fenofibrate 54 Mg Tablet) 54 mg PO DAILY [facility] Gabapentin (Gabapentin 100 Mg Capsule) 100 mg PO Q8H [facility] Last Admin: 09/04/22 05:51 Dose: 100 mg Glucose (Glucose Gel 15 Gm Gel..Gram.) 15 gm PO Q15M PRN; Protocol PRN Reason: per Hypoglycemia Standing Ord. Heparin Sodium (Porcine) (Heparin Sodium,Porcine 5,000 Unit/Ml Vial) 5,000 unit SUBCUT Q12H [facility] Last Admin: 09/03/22 21:28 Dose: 5,000 unit Sodium Chloride (Ns) 1,000 mls @ 100 mls/hr IVCONT .Q10H [facility] Last Admin: 09/04/22 06:38 Dose: 100 mls/hr Cefepime HCl 2 gm/ Sodium (Chloride) 50 mls @ 100 mls/hr IV Q12H [facility] Last Infusion: 09/04/22 06:36 Dose: Infused Dextrose (D10) 250 mls @ 750 mls/hr IV Q15M PRN; Protocol PRN Reason: per Hypoglycemia Standing Ord. Vancomycin HCl 1,500 mg/ (Sodium Chloride) 500 mls @ 333.333 mls/hr IV Q24H [facility] Insulin Glargine (Insulin Glargine,Hum.Rec.Anlog 100 Unit/Ml 10 Ml Vial) 21 unit SUBCUT DAILY [facility] Insulin Human Lispro (Insulin Lispro 100 Unit/Ml 3 Ml Vial) 0 unit SUBCUT QIDACHS [facility]; Protocol Last Admin: 09/03/22 21:28 Dose: 4 unit Levothyroxine Sodium (Levothyroxine Sodium 150 Mcg Tablet) 150 mcg PO DAILY@0600 [facility] Last Admin: 09/04/22 05:51 Dose: 150 mcg Morphine Sulfate (Morphine Sulfate 4 Mg/Ml Cartridge) 2 mg IVPUSH Q4H PRN; Protocol PRN Reason: Pain, Severe (Pain Scale 7-10) Non-Formulary Medication (Simvastatin) 40 mg PO DAILY [facility] Ondansetron HCl (Ondansetron Hcl 4 Mg/2 Ml Vial) 4 mg IVPUSH Q8H PRN PRN Reason: Nausea and Vomiting Pharmacy Consult (Consult Rx Perform Med Rec) 1 each MISCELLANE ONCE PRN PRN Reason: Consult order Pharmacy Consult (Consult Rx Vancomycin Dosing) 1 each MISCELLANE DAILY PRN PRN Reason: Consult order Pharmacy Consult (Consult Rx Vancomycin Dosing) 1 each MISCELLANE DAILY PRN PRN Reason: Consult order Sodium Chloride (0.9 % Sodium Chloride Flush 3 Ml Syringe) 3 ml IVFLUSH QSHIFT [facility] Last Admin: 09/04/22 00:02 Dose: Not Given Vitamin D (Cholecalciferol (Vitamin D3) 25 Mcg Tablet) 50 mcg PO DAILY [facility] Home Medications Medication Instructions Recorded Confirmed Last Taken Type dulaglutide 1.5 mg/0.5 mL 1.5 mg subcut FR 06/20/22 09/03/22 06/15/22 History subcutaneous pen injector (Trulicity) insulin aspart U-100 100 unit/mL See Protocol subcut QIDACHS 06/20/22 09/03/22 06/20/22 History (3 mL) subcutaneous pen (Novolog FlexPen U-100 Insulin aspart) insulin degludec 200 unit/mL (3 40 unit subcut DAILY 06/20/22 09/03/22 06/20/22 History mL) subcutaneous pen (Tresiba FlexTouch U-200 insulin) metformin 500 mg tablet 500 mg PO BIDWM 06/20/22 09/03/22 06/20/22 History doxycycline hyclate 100 mg tablet 100 mg PO BID 09/03/22 09/03/22 Unknown History ondansetron HCl 4 mg tablet 4 mg PO Q6H PRN Nausea 09/03/22 09/03/22 Unknown History Physical Exam Vital Signs: Vital Signs: Last Vital Signs Temp 98.7 F 09/04/22 06:03 Pulse 79 09/04/22 06:03 Resp 12 09/04/22 06:03 BP 111/56 L 09/04/22 06:03 Pulse Ox 95 09/03/22 22:25 O2 Del Method 09/03/22 22:25 BMI result Body Mass Index 40.4 Const: General: cooperative and no acute distress Nutritional Appearance: well nourished Orientation/consciousness: patient oriented x3 Limitations: no limitations HEENT: Head: Yes normocephalic and Yes atraumatic Ears: hearing grossly normal bilaterally Resp: Effort & Inspection: normal respiratory effort, no audible wheezes, no cough and no respiratory distress Cardio: Jugular venous distension: no JVD GI: Inspection: Yes normal to inspection Skin: Other: Warm, dry, no rash Neuro: General: patient oriented x3 Extrem: Other: Right foot with areas of epidermal lysis and erythema. Underlying abscess appears to be intraepidermal and will require debridement drainage. Right 5th toe with necrotic changes but no apparent open wound at this time. General: Yes no clubbing, cyanosis or edema Results Labs 09/04/22 05:46 09/04/22 05:46 Labs: Abnormal lab results 09/03/22 09/03/22 09/03/22 Range/Units 17:45 18:15 18:15 WBC 20.5 H (4.8-10.8) X10*3/uL RBC 2.99 L D (4.60-5.80) X10*6/uL Hgb 8.4 L D (14.0-18.0) g/dl Hct 24.2 L D (42.0-52.0) % Immature Gran % (Auto) 1.1 H (0.0-0.4) % Neut % (Auto) 85.3 H (45-73) % Lymph % (Auto) 6.3 L (20-40) % Lymph # (Auto) (1.2-4.9) X10*3/uL [place] # (Auto) 1.3 H (0.1-1.2) X10*3/uL Abs Immat Gran (auto) 0.22 H (0.00-0.03) X10*3/uL Absolute Neuts (auto) 17.5 H (2.0-8.3) x10*3/uL ESR 115 H (0-15) MM/HR Sodium 125 L (135-145) mmol/L Chloride 95 L (96-108) mmol/L Carbon Dioxide 18 L (22-29) mmol/L BUN 57 H (9-16) mg/dL Creatinine 2.03 H (0.5-1.4) mg/dL POC Glucose (60-115) mg/dL Random Glucose 260 H (60-115) mg/dL Calcium 7.5 L D (8.4-10.2) mg/dL C-Reactive Protein 25.84 H (< or = 0.50) mg/dL Ur Leukocyte Esterase (Negative) Urine RBC (0-2) /HPF Urine WBC (0-5) /HPF 09/03/22 09/04/22 09/04/22 Range/Units 21:12 05:46 05:46 WBC 19.8 H (4.8-10.8) X10*3/uL RBC 3.23 L (4.60-5.80) X10*6/uL Hgb 8.9 L (14.0-18.0) g/dl Hct 26.1 L (42.0-52.0) % Immature Gran % (Auto) 1.3 H (0.0-0.4) % Neut % (Auto) 84.1 H (45-73) % Lymph % (Auto) 5.8 L (20-40) % Lymph # (Auto) 1.1 L (1.2-4.9) X10*3/uL [place] # (Auto) 1.3 H (0.1-1.2) X10*3/uL Abs Immat Gran (auto) 0.25 H (0.00-0.03) X10*3/uL Absolute Neuts (auto) 16.7 H (2.0-8.3) x10*3/uL ESR (0-15) MM/HR Sodium 129 L (135-145) mmol/L Chloride (96-108) mmol/L Carbon Dioxide 21 L (22-29) mmol/L BUN 52 H (9-16) mg/dL Creatinine 1.47 H (0.5-1.4) mg/dL POC Glucose 229 H (60-115) mg/dL Random Glucose 172 H (60-115) mg/dL Calcium 7.7 L (8.4-10.2) mg/dL C-Reactive Protein (< or = 0.50) mg/dL Ur Leukocyte Esterase (Negative) Urine RBC (0-2) /HPF Urine WBC (0-5) /HPF 09/04/22 09/04/22 Range/Units 05:59 07:34 WBC (4.8-10.8) X10*3/uL RBC (4.60-5.80) X10*6/uL Hgb (14.0-18.0) g/dl Hct (42.0-52.0) % Immature Gran % (Auto) (0.0-0.4) % Neut % (Auto) (45-73) % Lymph % (Auto) (20-40) % Lymph # (Auto) (1.2-4.9) X10*3/uL [place] # (Auto) (0.1-1.2) X10*3/uL Abs Immat Gran (auto) (0.00-0.03) X10*3/uL Absolute Neuts (auto) (2.0-8.3) x10*3/uL ESR (0-15) MM/HR Sodium (135-145) mmol/L Chloride (96-108) mmol/L Carbon Dioxide (22-29) mmol/L BUN (9-16) mg/dL Creatinine (0.5-1.4) mg/dL POC Glucose 166 H (60-115) mg/dL Random Glucose (60-115) mg/dL Calcium (8.4-10.2) mg/dL C-Reactive Protein (< or = 0.50) mg/dL Ur Leukocyte Esterase Moderate (2+) H (Negative) Urine RBC >20 H (0-2) /HPF Urine WBC 21-50 H (0-5) /HPF Short CBC 09/03/22 09/04/22 Range/Units 17:45 05:46 WBC 20.5 H 19.8 H (4.8-10.8) X10*3/uL Hgb 8.4 L D 8.9 L (14.0-18.0) g/dl Hct 24.2 L D 26.1 L (42.0-52.0) % Plt Count 264 D 283 (160-400) X10*3/uL BMP 09/03/22 09/04/22 18:15 05:46 Sodium 125 L 129 L Potassium 3.6 3.8 Chloride 95 L 98 Carbon Dioxide 18 L 21 L BUN 57 H 52 H Creatinine 2.03 H 1.47 H Calcium 7.5 L D 7.7 L Urine 09/04/22 Range/Units 05:59 Urine Color Dark Yellow Urine Appearance Cloudy Urine pH 5.0 (5.0-9.0) Ur Specific [place] 1.015 (1.005-1.025) Urine Protein Trace (Neg-Trace) mg/dL Urine Glucose (UA) Negative (Negative) mg/dL All other labs normal. Assessment and Plan (1) Diabetic foot ulcer: Status: Acute Plan Patient presents with a right foot abscess associated with diabetes mellitus. I will return later today to debride and drain the abscess. Further recommendations based on procedure findings. Time Spent With Patient Time: Total time managing care of this patient today ____ minutes. Procedures Date of Service Date of Service: 09/04/22
[2022-09-04] MEDS: Ezetimibe 10 MG TABLET PO (08:50)
[2022-09-04] MEDS: Heparin Sodium,Porcine 5,000 UNIT/ML VIAL 5000 UNIT SUBCUT ×2 (08:50→21:08)
[2022-09-04] MEDS: Cholecalciferol (Vitamin D3) 25 MCG TABLET 50 MCG PO (08:51)
[2022-09-04] MEDS: Insulin Glargine,Hum.rec.anlog 100 UNIT/ML 10 ML VIAL 21 UNIT SUBCUT (08:51)
[2022-09-04] MEDS: Insulin Lispro 100 UNIT/ML 3 ML VIAL SUBCUT ×4 (08:51→21:09)
[2022-09-04] MEDS: Escitalopram Oxalate 10 MG TABLET PO (08:51)
[2022-09-04 09:27] VITALS: BP 118/60; PULSE 82; RESP 18; O2SAT 97
--- NOTE | 2022-09-04 11:21 | HO.PM.IMPN ---
Subjective Subjective Date of Service: 09/04/22 Interval History: f/u on diabetic foot ulcer, concern for osteo no pain, Physical Exam Vital Signs: Vital Signs: Last Vital Signs Temp 98.7 F 09/04/22 06:03 Pulse 82 09/04/22 09:27 Resp 18 09/04/22 09:27 BP 118/60 09/04/22 09:27 Pulse Ox 97 09/04/22 09:27 O2 Del Method 09/04/22 09:27 BMI result Body Mass Index 40.4 Const: Other: General: AO X 3, no acute distress Resp: CTA bilateral CVS: S1,S2,RRR GI: +BS, NT, no distention Skin: See picture from H and P Neuro: motor grossly intact Psych: appropriate affect Objective Data Active Medications Acetaminophen (Acetaminophen 325 Mg Tablet) 650 mg PO Q6H PRN PRN Reason: Pain, Mild (Pain Scale 1-3) Ezetimibe (Ezetimibe 10 Mg Tablet) 10 mg PO DAILY [facility] Last Admin: 09/04/22 08:50 Dose: 10 mg Documented By: ЮЛИЯ Escitalopram Oxalate (Escitalopram Oxalate 10 Mg Tablet) 10 mg PO DAILY [facility] Last Admin: 09/04/22 08:51 Dose: 10 mg Documented By: ЮЛИЯ Fenofibrate (Fenofibrate 54 Mg Tablet) 54 mg PO DAILY [facility] Gabapentin (Gabapentin 100 Mg Capsule) 100 mg PO Q8H [facility] Last Admin: 09/04/22 05:51 Dose: 100 mg Documented By: SUDHEER Glucose (Glucose Gel 15 Gm Gel..Gram.) 15 gm PO Q15M PRN; Protocol PRN Reason: per Hypoglycemia Standing Ord. Heparin Sodium (Porcine) (Heparin Sodium,Porcine 5,000 Unit/Ml Vial) 5,000 unit SUBCUT Q12H [facility] Last Admin: 09/04/22 08:50 Dose: 5,000 unit Documented By: ЮЛИЯ Sodium Chloride (Ns) 1,000 mls @ 100 mls/hr IVCONT .Q10H [facility] Last Admin: 09/04/22 06:38 Dose: 100 mls/hr Documented By: SUDHEER Cefepime HCl 2 gm/ Sodium (Chloride) 50 mls @ 100 mls/hr IV Q12H [facility] Last Infusion: 09/04/22 06:36 Dose: 0 mls/hr Documented By: SUDHEER Dextrose (D10) 250 mls @ 750 mls/hr IV Q15M PRN; Protocol PRN Reason: per Hypoglycemia Standing Ord. Vancomycin HCl 1,500 mg/ (Sodium Chloride) 500 mls @ 333.333 mls/hr IV Q24H [facility] Insulin Glargine (Insulin Glargine,Hum.Rec.Anlog 100 Unit/Ml 10 Ml Vial) 21 unit SUBCUT DAILY [facility] Last Admin: 09/04/22 08:51 Dose: 21 unit Documented By: ЮЛИЯ Insulin Human Lispro (Insulin Lispro 100 Unit/Ml 3 Ml Vial) 0 unit SUBCUT QIDACHS [facility]; Protocol Last Admin: 09/04/22 08:51 Dose: 2 unit Documented By: ЮЛИЯ Levothyroxine Sodium (Levothyroxine Sodium 150 Mcg Tablet) 150 mcg PO DAILY@0600 [facility] Last Admin: 09/04/22 05:51 Dose: 150 mcg Documented By: SUDHEER Morphine Sulfate (Morphine Sulfate 4 Mg/Ml Cartridge) 2 mg IVPUSH Q4H PRN; Protocol PRN Reason: Pain, Severe (Pain Scale 7-10) Non-Formulary Medication (Simvastatin) 40 mg PO DAILY [facility] Ondansetron HCl (Ondansetron Hcl 4 Mg/2 Ml Vial) 4 mg IVPUSH Q8H PRN PRN Reason: Nausea and Vomiting Pharmacy Consult (Consult Rx Perform Med Rec) 1 each MISCELLANE ONCE PRN PRN Reason: Consult order Pharmacy Consult (Consult Rx Vancomycin Dosing) 1 each MISCELLANE DAILY PRN PRN Reason: Consult order Pharmacy Consult (Consult Rx Vancomycin Dosing) 1 each MISCELLANE DAILY PRN PRN Reason: Consult order Sodium Chloride (0.9 % Sodium Chloride Flush 3 Ml Syringe) 3 ml IVFLUSH QSHIFT [facility] Last Admin: 09/04/22 00:02 Dose: Not Given Documented By: SUDHEER Non-Admin Reason: IV Running Vitamin D (Cholecalciferol (Vitamin D3) 25 Mcg Tablet) 50 mcg PO DAILY [facility] Last Admin: 09/04/22 08:51 Dose: 50 mcg Documented By: ЮЛИЯ Labs 09/04/22 05:46 09/04/22 05:46 Labs: Laboratory Results - last 24 hr 09/03/22 09/03/2223 17:42 17:43 17:45 MCV 80.9 MCH 28.1 MCHC 34.7 RDW 12.6 Plt Count 264 D MPV 10.8 Immature Gran % (Auto) 1.1 H Neut % (Auto) 85.3 H Lymph % (Auto) 6.3 L [place] % (Auto) 6.1 Eos % (Auto) 0.9 Baso % (Auto) 0.3 Lymph # (Auto) 1.3 [place] # (Auto) 1.3 H Eos # (Auto) 0.2 Baso # (Auto) 0.1 Abs Immat Gran (auto) 0.22 H Absolute Neuts (auto) 17.5 H Absolute Nucleated RBC 0.000 Nucleated RBC % (auto) 0.0 ESR Anion Gap Estim Creat Clear Calc Estimated GFR POC Glucose Random Glucose Estimat Average Glucose 174 Hemoglobin A1c % 7.7 Lactic Acid 0.9 Calcium C-Reactive Protein Urine Color Urine Appearance Urine pH Ur Specific [place] Urine Protein Urine Glucose (UA) Urine Ketones Urine Blood Urine Nitrite Ur Leukocyte Esterase Urine RBC Urine WBC Ur Squamous Epith Cells Urine Bacteria Hyaline Casts Urine Osmolality Ur Random Sodium Urine Creatinine COVID-19 ([facility]URDO) COVID-19 Clin Com 09/03/22 09/03/22 09/03/22 18:15 18:15 18:15 MCV MCH MCHC RDW Plt Count MPV Immature Gran % (Auto) Neut % (Auto) Lymph % (Auto) [place] % (Auto) Eos % (Auto) Baso % (Auto) Lymph # (Auto) [place] # (Auto) Eos # (Auto) Baso # (Auto) Abs Immat Gran (auto) Absolute Neuts (auto) Absolute Nucleated RBC Nucleated RBC % (auto) ESR 115 H Anion Gap 16 Estim Creat Clear Calc 54.7 Estimated GFR 35 POC Glucose Random Glucose 260 H Estimat Average Glucose Hemoglobin A1c % Lactic Acid Calcium 7.5 L D C-Reactive Protein 25.84 H Urine Color Urine Appearance Urine pH Ur Specific [place] Urine Protein Urine Glucose (UA) Urine Ketones Urine Blood Urine Nitrite Ur Leukocyte Esterase Urine RBC Urine WBC Ur Squamous Epith Cells Urine Bacteria Hyaline Casts Urine Osmolality Ur Random Sodium Urine Creatinine COVID-19 ([facility]URDO) Negative COVID-19 Clin Com See Note 09/03/22 09/04/22 09/04/22 21:12 05:46 05:46 MCV 80.8 MCH 27.6 MCHC 34.1 RDW 12.5 Plt Count 283 MPV 10.0 Immature Gran % (Auto) 1.3 H Neut % (Auto) 84.1 H Lymph % (Auto) 5.8 L [place] % (Auto) 6.6 Eos % (Auto) 1.8 Baso % (Auto) 0.4 Lymph # (Auto) 1.1 L [place] # (Auto) 1.3 H Eos # (Auto) 0.4 Baso # (Auto) 0.1 Abs Immat Gran (auto) 0.25 H Absolute Neuts (auto) 16.7 H Absolute Nucleated RBC 0.000 Nucleated RBC % (auto) 0.0 ESR Anion Gap 14 Estim Creat Clear Calc 75.6 Estimated GFR 50 POC Glucose 229 H Random Glucose 172 H Estimat Average Glucose Hemoglobin A1c % Lactic Acid Calcium 7.7 L C-Reactive Protein Urine Color Urine Appearance Urine pH Ur Specific [place] Urine Protein Urine Glucose (UA) Urine Ketones Urine Blood Urine Nitrite Ur Leukocyte Esterase Urine RBC Urine WBC Ur Squamous Epith Cells Urine Bacteria Hyaline Casts Urine Osmolality Ur Random Sodium Urine Creatinine COVID-19 ([facility]URDO) COVID-[place] 09/04/22 09/04/22 09/04/22 05:59 05:59 05:59 MCV MCH MCHC RDW Plt Count MPV Immature Gran % (Auto) Neut % (Auto) Lymph % (Auto) [place] % (Auto) Eos % (Auto) Baso % (Auto) Lymph # (Auto) [place] # (Auto) Eos # (Auto) Baso # (Auto) Abs Immat Gran (auto) Absolute Neuts (auto) Absolute Nucleated RBC Nucleated RBC % (auto) ESR Anion Gap Estim Creat Clear Calc Estimated GFR POC Glucose Random Glucose Estimat Average Glucose Hemoglobin A1c % Lactic Acid Calcium C-Reactive Protein Urine Color Dark Yellow Urine Appearance Cloudy Urine pH 5.0 Ur Specific [place] 1.015 Urine Protein Trace Urine Glucose (UA) Negative Urine Ketones Trace Urine Blood Negative Urine Nitrite Negative Ur Leukocyte Esterase Moderate (2+) H Urine RBC >20 H Urine WBC 21-50 H Ur Squamous Epith Cells 3-5 Urine Bacteria None Seen Hyaline Casts 6-10 Urine Osmolality 389 Ur Random Sodium < 20.0 Urine Creatinine 188.64 COVID-19 ([facility]URDO) COVID-[place] 09/04/22 07:34 MCV MCH MCHC RDW Plt Count MPV Immature Gran % (Auto) Neut % (Auto) Lymph % (Auto) [place] % (Auto) Eos % (Auto) Baso % (Auto) Lymph # (Auto) [place] # (Auto) Eos # (Auto) Baso # (Auto) Abs Immat Gran (auto) Absolute Neuts (auto) Absolute Nucleated RBC Nucleated RBC % (auto) ESR Anion Gap Estim Creat Clear Calc Estimated GFR POC Glucose 166 H Random Glucose Estimat Average Glucose Hemoglobin A1c % Lactic Acid Calcium C-Reactive Protein Urine Color Urine Appearance Urine pH Ur Specific [place] Urine Protein Urine Glucose (UA) Urine Ketones Urine Blood Urine Nitrite Ur Leukocyte Esterase Urine RBC Urine WBC Ur Squamous Epith Cells Urine Bacteria Hyaline Casts Urine Osmolality Ur Random Sodium Urine Creatinine COVID-19 ([facility]URDO) COVID-19 Clin Com Assessment and Plan (1) JJ (acute kidney injury): Status: Acute (2) Diabetic foot ulcer: Status: Acute (3) Osteomyelitis: Status: Acute Plan 52-year-old male with history of insulin-dependent type 2 diabetes, hypothyroidism, hyperlipidemia, hypertension, congestive heart failure, proteinuria, and nonhealing diabetic left foot ulcer who is morbidly obese admitted for nonhealing diabetic foot ulcer of the right foot with cellulitis and question of osteomyelitis. # nonhealing right diabetic foot ulcer with cellulitis and question of osteomyelitis -recently completed 6 weeks IV ertapenem on 08/10 with recent discharge from [facility] on 06/29.? MRI at that time negative for osteomyelitis, but extended antibiotics recommended by ID -x-ray of right foot negative for any bony erosions or periosteal thickening but showing soft tissue swelling -ESR 112, CRP 25 -leukocytosis 20.5, vitals stable.? No sepsis -MRI right foot ordered -continue IV vancomycin and renally adjusted cefepime -has known PAD but no recent arterial imaging.? Arterial Doppler ordered -appreciate General surgery and Infectious Disease input -follow CBC and blood cultures # acute kidney injury-likely related to hypovolemia -urine studies -continue IVF -avoid nephrotoxins -follow BMP, nephrology consult if worse # acute hyponatremia-likely related to hypovolemia and thiazide diuretic use -urine studies ordered Hold thiazide diuretics -continue IVF -follow BMP -consider Nephrology consult if no improvement # insulin-dependent type 2 diabetes with hyperglycemia -hemoglobin A1c pending -continue basal insulin -Humalog on sliding scale -POC glucose -diabetic diet # hypertension-blood pressure soft -hold oral antihypertensives at this time -monitor BP # hypothyroidism -continue levothyroxine # hyperlipidemia -continue Zetia and statin # congestive heart failure, ejection fraction unspecified -euvolemic appearing, no acute exacerbation DVT prophylaxis-heparin Full code need for ipatient: treatment and work up for osteomyltisis Time Spent With Patient Time: Total time managing care of this patient today ____ minutes. Quality Stroke Does the patient have a stroke diagnosis?: No VTE Prior VTE?: No VTE Risk Level:: Medical - moderate - high VTE Device Contraindication: Treatment Not Indicated VTE Drug Contraindication: N/A - Med Ordered
[2022-09-04 13:41] LABS: Glucose, Whole Blood 185 mg/dL (60-115)
[2022-09-04 14:18] VITALS: BP 127/62; PULSE 83; RESP 16; TEMP 36.7; O2SAT 97
[2022-09-04 14:44] VITALS: BP 135/61; PULSE 86; RESP 18; TEMP 37.2; O2SAT 97
[2022-09-04 15:43] VITALS: BP 150/67; PULSE 96; RESP 18; TEMP 36.3; O2SAT 95
[2022-09-04 16:18] LABS: Glucose, Whole Blood 173 mg/dL (60-115)
[2022-09-04 20:00] VITALS: BP 146/57; PULSE 88; RESP 17; TEMP 37.2; O2SAT 94
[2022-09-04 20:45] LABS: Glucose, Whole Blood 152 mg/dL (60-115)
[2022-09-04] MEDS: vancomycin HCL 1,500 MG in 0.9 % Sodium Chloride 500 ML 333.33 MG IV (21:08)
[2022-09-05 03:42] VITALS: BP 129/64; PULSE 80; RESP 17; TEMP 36.7; O2SAT 93
[2022-09-05] MEDS: Levothyroxine Sodium 150 MCG TABLET PO (05:29)
[2022-09-05] MEDS: Gabapentin 100 MG CAPSULE PO ×3 (05:29→20:38)
[2022-09-05] MEDS: cefEPime HCl 2 GM in 0.9 % Sodium Chloride 50 ML IV ×2 (06:18→18:56)
[2022-09-05] MEDS: 0.9 % Sodium Chloride 1,000 ML 100 ML IVCONT ×2 (06:19→11:13)
[2022-09-05 07:21] VITALS: BP 132/67; PULSE 80; RESP 16; TEMP 36.7; O2SAT 98
[2022-09-05 07:25] LABS: Creatinine Clr Calc Pharmacy 124.9; Estimated Glomerular Filt Rate > 60
[2022-09-05 07:43] LABS: Glucose, Whole Blood 114 mg/dL (60-115)
[2022-09-05] MEDS: Ezetimibe 10 MG TABLET PO (08:39)
[2022-09-05] MEDS: Escitalopram Oxalate 10 MG TABLET PO (08:39)
[2022-09-05] MEDS: Fenofibrate 54 MG TABLET PO (08:39)
[2022-09-05] MEDS: Heparin Sodium,Porcine 5,000 UNIT/ML VIAL 5000 UNIT SUBCUT ×2 (08:40→20:38)
[2022-09-05] MEDS: Insulin Glargine,Hum.rec.anlog 100 UNIT/ML 10 ML VIAL 21 UNIT SUBCUT (08:40)
[2022-09-05] MEDS: Cholecalciferol (Vitamin D3) 25 MCG TABLET 50 MCG PO (08:40)
--- NOTE | 2022-09-05 09:41 | P.PNIM_ITS ---
Subjective Subjective Date of Service: 09/05/22 Interval History: f/u on diabetic foot ulcer, concern for osteo no pain, Physical Exam Vital Signs: Vital Signs: Last Vital Signs Temp 98.1 F 09/05/22 07:21 Pulse 80 09/05/22 07:21 Resp 16 09/05/22 07:21 BP 132/67 09/05/22 07:21 Pulse Ox 98 09/05/22 07:21 O2 Del Method 09/05/22 07:21 BMI result Body Mass Index 40.4 Const: Other: General: AO X 3, no acute distress Resp: CTA bilateral CVS: S1,S2,RRR GI: +BS, NT, no distention Skin: See picture from H and P Neuro: motor grossly intact Psych: appropriate affect Objective Data Active Medications Acetaminophen (Acetaminophen 325 Mg Tablet) 650 mg PO Q6H PRN PRN Reason: Pain, Mild (Pain Scale 1-3) Ezetimibe (Ezetimibe 10 Mg Tablet) 10 mg PO DAILY [facility] Last Admin: 09/05/22 08:39 Dose: 10 mg Documented By: JOSETTE Escitalopram Oxalate (Escitalopram Oxalate 10 Mg Tablet) 10 mg PO DAILY [facility] Last Admin: 09/05/22 08:39 Dose: 10 mg Documented By: JOSETTE Fenofibrate (Fenofibrate 54 Mg Tablet) 54 mg PO DAILY [facility] Last Admin: 09/05/22 08:39 Dose: 54 mg Documented By: JOSETTE Gabapentin (Gabapentin 100 Mg Capsule) 100 mg PO Q8H [facility] Last Admin: 09/05/22 05:29 Dose: 100 mg Documented By: NAHID Glucose (Glucose Gel 15 Gm Gel..Gram.) 15 gm PO Q15M PRN; Protocol PRN Reason: per Hypoglycemia Standing Ord. Heparin Sodium (Porcine) (Heparin Sodium,Porcine 5,000 Unit/Ml Vial) 5,000 unit SUBCUT Q12H [facility] Last Admin: 09/05/22 08:40 Dose: 5,000 unit Documented By: JOSETTE Sodium Chloride (Ns) 1,000 mls @ 100 mls/hr IVCONT .Q10H [facility] Last Infusion: 09/05/22 06:58 Dose: 100 mls/hr Documented By: ANHID Cefepime HCl 2 gm/ Sodium (Chloride) 50 mls @ 100 mls/hr IV Q12H [facility] Last Infusion: 09/05/22 06:57 Dose: 0 mls/hr Documented By: NAHID Dextrose (D10) 250 mls @ 750 mls/hr IV Q15M PRN; Protocol PRN Reason: per Hypoglycemia Standing Ord. Vancomycin HCl 1,500 mg/ (Sodium Chloride) 500 mls @ 333.333 mls/hr IV Q24H [facility] Last Infusion: 09/04/22 22:42 Dose: 0 mls/hr Documented By: KEISHA Insulin Glargine (Insulin Glargine,Hum.Rec.Anlog 100 Unit/Ml 10 Ml Vial) 21 unit SUBCUT DAILY [facility] Last Admin: 09/05/22 08:40 Dose: 21 unit Documented By: JOSETTE Insulin Human Lispro (Insulin Lispro 100 Unit/Ml 3 Ml Vial) 0 unit SUBCUT QIDACHS [facility]; Protocol Last Admin: 09/05/22 07:46 Dose: Not Given Documented By: JOSETTE Non-Admin Reason: No Insulin Coverage Levothyroxine Sodium (Levothyroxine Sodium 150 Mcg Tablet) 150 mcg PO DAILY@0600 [facility] Last Admin: 09/05/22 05:29 Dose: 150 mcg Documented By: NAHID Morphine Sulfate (Morphine Sulfate 4 Mg/Ml Cartridge) 2 mg IVPUSH Q4H PRN; Protocol PRN Reason: Pain, Severe (Pain Scale 7-10) Non-Formulary Medication (Simvastatin) 40 mg PO DAILY [facility] Ondansetron HCl (Ondansetron Hcl 4 Mg/2 Ml Vial) 4 mg IVPUSH Q8H PRN PRN Reason: Nausea and Vomiting Pharmacy Consult (Consult Rx Perform Med Rec) 1 each MISCELLANE ONCE PRN PRN Reason: Consult order Pharmacy Consult (Consult Rx Vancomycin Dosing) 1 each MISCELLANE DAILY PRN PRN Reason: Consult order Pharmacy Consult (Consult Rx Vancomycin Dosing) 1 each MISCELLANE DAILY PRN PRN Reason: Consult order Sodium Chloride (0.9 % Sodium Chloride Flush 3 Ml Syringe) 3 ml IVFLUSH QSHIFT [facility] Last Admin: 09/05/22 08:41 Dose: Not Given Documented By: JOSETTE Non-Admin Reason: IV Running Vitamin D (Cholecalciferol (Vitamin D3) 25 Mcg Tablet) 50 mcg PO DAILY [facility] Last Admin: 09/05/22 08:40 Dose: 50 mcg Documented By: JOSETTE Labs 09/04/22 05:46 09/05/22 05:40 Labs: Laboratory Results - last 24 hr 09/04/22 09/04/22 09/04/22 13:32 16:14 20:30 Estim Creat Clear Calc Estimated GFR POC Glucose 185 H 173 H 152 H 09/05/22 09/05/22 05:40 07:25 Estim Creat Clear Calc 124.9 Estimated GFR > 60 POC Glucose 114 Microbiology Microbiology Results: Microbiology 09/03/22 18:15 Blood Culture - Preliminary Blood - Venous Prelim: GPC Gram Stain only 09/03/22 17:43 Blood Culture - Preliminary Blood - Venous Prelim: GPC Gram Stain only Assessment and Plan (1) JJ (acute kidney injury): Status: Acute (2) Diabetic foot ulcer: Status: Acute (3) Osteomyelitis: Status: Acute Plan 52-year-old male with history of insulin-dependent type 2 diabetes, hypothyroidism, hyperlipidemia, hypertension, congestive heart failure, proteinuria, and nonhealing diabetic left foot ulcer who is morbidly obese admitted for nonhealing diabetic foot ulcer of the right foot with cellulitis and question of osteomyelitis. #Sepsis #gram positive cocci bactermia # nonhealing right diabetic foot ulcer with cellulitis and question of osteomyelitis -recently completed 6 weeks IV ertapenem on 08/10 with recent discharge from [facility] on 06/29.? MRI at that time negative for osteomyelitis, but extended antibiotics recommended by ID -x-ray of right foot negative for any bony erosions or periosteal thickening but showing soft tissue swelling -ESR 112, CRP 25 -leukocytosis 20.5, vitals stable.? No sepsis -MRI right foot ordered -continue IV vancomycin and renally adjusted cefepime -has known PAD but no recent arterial imaging.? Arterial Doppler ordered -General surgery and Infectious Disease input -follow CBC and blood cultures # acute kidney injury-likely related to hypovolemia -urine studies -continue IVF -avoid nephrotoxins -follow BMP, nephrology consult if worse # acute hyponatremia-likely related to hypovolemia and thiazide diuretic use -urine studies ordered Hold thiazide diuretics -continue IVF, DC IVF -follow BMP -consider Nephrology consult if no improvement # insulin-dependent type 2 diabetes with hyperglycemia -hemoglobin A1c pending -continue basal insulin -Humalog on sliding scale -POC glucose -diabetic diet # hypertension-continue home meds # hypothyroidism -continue levothyroxine # hyperlipidemia -continue Zetia and statin # congestive heart failure, ejection fraction unspecified -euvolemic appearing, no acute exacerbation DVT prophylaxis-heparin Full code need for ipatient: treatment and work up for osteomyltisis Time Spent With Patient Time: Total time managing care of this patient today ____ minutes. Quality Stroke Does the patient have a stroke diagnosis?: No VTE Prior VTE?: No VTE Risk Level:: Medical - moderate - high VTE Device Contraindication: Treatment Not Indicated VTE Drug Contraindication: N/A - Med Ordered
[2022-09-05 10:01] LABS: Anion Gap 12 (12-20)
[2022-09-05 10:04] LABS: Blood Urea Nitrogen 27 mg/dL (9-16); Calcium 7.8 mg/dL (8.4-10.2); Carbon Dioxide 23 mmol/L (22-29); Chloride 104 mmol/L (96-108); Glucose Random 93 mg/dL (60-115); Potassium 3.8 mmol/L (3.3-5.1); Sodium 135 mmol/L (135-145)
--- NOTE | 2022-09-05 10:53 | MHC.CM.PN ---
[facility]cd will need bls transport
[2022-09-05 11:33] LABS: Glucose, Whole Blood 171 mg/dL (60-115)
[2022-09-05] MEDS: Insulin Lispro 100 UNIT/ML 3 ML VIAL SUBCUT ×3 (12:25→21:14)
--- NOTE | 2022-09-05 14:34 | P.CNID_ITS ---
History of Present Illness Data of Consult Service Date: 09/05/22 Requesting physician: Yony Pedersen Primary Care Provider: Adwoa Fan MD HPI Reason for consult: right diabetic foot wound He presents from [facility] with worsening redness right foot. He has had this worse for a week. He has MRI osteomyelitis 4th/5th toes with septic arthritis. He has MSSA and enterococcus? (final blood culture pending) 07/26 positive. He was hospitalized here in June and I saw him and foot looked necrotic but no evidence osteomyelitis on MRI. Due to suspicion developing osteomyelitis he received six weeks IV Ertapenem finished 08/10. I did not see him in followup however. Review of Systems Review of Systems: Yes all other systems are reviewed and are negative PMFSH Past Medical History Medical History (Updated 09/05/22 @ 14:39 by Kristen Fraser MD) Acute kidney injury Autoimmune thyroiditis Bacteremia Bilateral hand pain Cataracts, both eyes CHF (congestive heart failure) Cognitive developmental delay Diabetes Diabetic ketoacidosis Edema Essential hypertension HTN (hypertension) Hyperkalemia Hyperlipidemia Hyperlipidemia LDL goal <100 Hyponatremia Hypothyroid Hypovitaminosis D Infection of penis Left foot pain Obesity due to excess calories Proteinuria Right foot pain Right knee pain Type 2 diabetes mellitus with hyperglycemia, with long-term current use of insulin Type 2 diabetes mellitus with other diabetic kidney complication Family History Family History Father HTN (hypertension) Mother Diabetes mellitus Maternal Grandmother Diabetes mellitus Family history: reviewed and not pertinent Surgical History Surgical History Hx of cataract surgery Hx of removal of cyst Social History Social History Household Members: Other Household Members Other:: SNF Housing: Assisted Living Facility Housing Other:: [facility] [place] Alcohol intake: never Patient Tobacco Use Status: Never used Tobacco e-Cigarette/Vaping Use: Never Used Second Hand Smoke Exposure: No Substance Use Type: Caffiene service: No Current occupational status: disabled Cognitive needs: Yes Hearing needs: No Vision needs: No Meds Allergies Allergy/AdvReac Type Severity Reaction Status Date / Time atorvastatin [ATORVASTATIN] Allergy Unknown skin Verified 12/27/21 10:50 eruption Active Medications: Current Medications Acetaminophen (Acetaminophen 325 Mg Tablet) 650 mg PO Q6H PRN PRN Reason: Pain, Mild (Pain Scale 1-3) Ezetimibe (Ezetimibe 10 Mg Tablet) 10 mg PO DAILY [facility] Last Admin: 09/05/22 08:39 Dose: 10 mg Escitalopram Oxalate (Escitalopram Oxalate 10 Mg Tablet) 10 mg PO DAILY [facility] Last Admin: 09/05/22 08:39 Dose: 10 mg Fenofibrate (Fenofibrate 54 Mg Tablet) 54 mg PO DAILY [facility] Last Admin: 09/05/22 08:39 Dose: 54 mg Gabapentin (Gabapentin 100 Mg Capsule) 100 mg PO Q8H [facility] Last Admin: 09/05/22 13:58 Dose: 100 mg Glucose (Glucose Gel 15 Gm Gel..Gram.) 15 gm PO Q15M PRN; Protocol PRN Reason: per Hypoglycemia Standing Ord. Heparin Sodium (Porcine) (Heparin Sodium,Porcine 5,000 Unit/Ml Vial) 5,000 unit SUBCUT Q12H [facility] Last Admin: 09/05/22 08:40 Dose: 5,000 unit Sodium Chloride (Ns) 1,000 mls @ 100 mls/hr IVCONT .Q10H [facility] Last Admin: 09/05/22 11:13 Dose: 100 mls/hr Cefepime HCl 2 gm/ Sodium (Chloride) 50 mls @ 100 mls/hr IV Q12H [facility] Last Infusion: 09/05/22 06:57 Dose: Infused Dextrose (D10) 250 mls @ 750 mls/hr IV Q15M PRN; Protocol PRN Reason: per Hypoglycemia Standing Ord. Vancomycin HCl 1,500 mg/ (Sodium Chloride) 500 mls @ 333.333 mls/hr IV Q24H [facility] Last Infusion: 09/04/22 22:42 Dose: Infused Insulin Glargine (Insulin Glargine,Hum.Rec.Anlog 100 Unit/Ml 10 Ml Vial) 21 unit SUBCUT DAILY [facility] Last Admin: 09/05/22 08:40 Dose: 21 unit Insulin Human Lispro (Insulin Lispro 100 Unit/Ml 3 Ml Vial) 0 unit SUBCUT Q IDACHS [facility]; Protocol Last Admin: 09/05/22 12:25 Dose: 2 unit Levothyroxine Sodium (Levothyroxine Sodium 150 Mcg Tablet) 150 mcg PO DAILY@0600 [facility] Last Admin: 09/05/22 05:29 Dose: 150 mcg Morphine Sulfate (Morphine Sulfate 4 Mg/Ml Cartridge) 2 mg IVPUSH Q4H PRN; Protocol PRN Reason: Pain, Severe (Pain Scale 7-10) Non-Formulary Medication (Simvastatin) 40 mg PO DAILY [facility] Ondansetron HCl (Ondansetron Hcl 4 Mg/2 Ml Vial) 4 mg IVPUSH Q8H PRN PRN Reason: Nausea and Vomiting Pharmacy Consult (Consult Rx Perform Med Rec) 1 each MISCELLANE ONCE PRN PRN Reason: Consult order Pharmacy Consult (Consult Rx Vancomycin Dosing) 1 each MISCELLANE DAILY PRN PRN Reason: Consult order Pharmacy Consult (Consult Rx Vancomycin Dosing) 1 each MISCELLANE DAILY PRN PRN Reason: Consult order Sodium Chloride (0.9 % Sodium Chloride Flush 3 Ml Syringe) 3 ml IVFLUSH QSHIFT [facility] Last Admin: 09/05/22 08:41 Dose: Not Given Vitamin D (Cholecalciferol (Vitamin D3) 25 Mcg Tablet) 50 mcg PO DAILY [facility] Last Admin: 09/05/22 08:40 Dose: 50 mcg Home Medications Medication Instructions Recorded Confirmed Last Taken Type dulaglutide 1.5 mg/0.5 mL 1.5 mg subcut FR 06/20/22 09/03/22 06/15/22 History subcutaneous pen injector (Trulicity) insulin aspart U-100 100 unit/mL See Protocol subcut QIDACHS 06/20/22 09/03/22 06/20/22 History (3 mL) subcutaneous pen (Novolog FlexPen U-100 Insulin aspart) insulin degludec 200 unit/mL (3 40 unit subcut DAILY 06/20/22 09/03/22 06/20/22 History mL) subcutaneous pen (Tresiba FlexTouch U-200 insulin) metformin 500 mg tablet 500 mg PO BIDWM 06/20/22 09/03/22 06/20/22 History doxycycline hyclate 100 mg tablet 100 mg PO BID 09/03/22 09/03/22 Unknown History ondansetron HCl 4 mg tablet 4 mg PO Q6H PRN Nausea 09/03/22 09/03/22 Unknown History Physical Exam Vital Signs: Vital Signs: Last Vital Signs Temp 98.1 F 09/05/22 07:21 Pulse 80 09/05/22 07:21 Resp 16 09/05/22 07:21 BP 132/67 09/05/22 07:21 Pulse Ox 98 09/05/22 07:21 O2 Del Method 09/05/22 07:21 BMI result Body Mass Index 40.4 Const: General: cooperative HEENT: Head: Yes normal to inspection Face and sinus: Yes normal facial exam Mouth: Normal oral and palatal mucosa present Teeth and gingiva: dentition normal Eyes: General: appearance normal, both eyes and all related structures Pupils: Equal, round and reactive pupils present Resp: Effort & Inspection: normal respiratory effort Cardio: Rate: regular rate Rhythm: regular rhythm GI: Palpation (GI): Soft to palpation and nontender : General: Yes no CVA tenderness Back/Spine/Pelvis: Back: no CVA tenderness Skin: General skin exam: no rashes or lesions noted Neuro: General: moves all extremities Cranial nerves: Yes Equal, round and reactive pupils present Extrem: Other: necrotic and foul smelling right foot especially fourth and fifth digits area appears bloody and denuded neuropathy Psych: Appearance: grossly normal Results Labs 09/04/22 05:46 09/05/22 05:40 Labs: BMP 09/05/22 05:40 Sodium 135 Potassium 3.8 Chloride 104 Carbon Dioxide 23 BUN 27 H Creatinine 0.89 Calcium 7.8 L Microbiology Microbiology Results: Microbiology 09/03/22 18:15 Blood - Venous Blood Culture - Preliminary Staphylococcus aureus Enterococcus/Streptococcus sp 09/04/22 Unknown Urine clean catch - Urine pineda top Urine Culture - Final 09/03/22 17:43 Blood - Venous Blood Culture - Preliminary Staphylococcus aureus Assessment and Plan (1) Diabetic foot ulcer: Status: Acute (2) Osteomyelitis: Status: Acute He has osteomyelitis right foot with 4th and 5th toes involved at least. He also has bacteremia. He also apparently developed osteomyelitis while on six weeks IV antibiotic therapy. There is concern for endocarditis also with bacteremia He has had arterial evaluation and was seen by surgery today. (3) Bacteremia: Status: Acute Plan Would give IV antibiotics, Cefepime and Vancomycin appropriate for now. Would remove affected bone,appears fourth and fifth digits right foot minimum. Would give IV antibiotics likely four weeks due to bacteremia (check final culture) Check echo evaluate endocarditis. Time Spent With Patient Time: Total time managing care of this patient today ____ minutes.
[2022-09-05 15:27] VITALS: BP 162/72; PULSE 88; RESP 17; TEMP 36.2; O2SAT 95
[2022-09-05 17:13] LABS: Glucose, Whole Blood 221 mg/dL (60-115)
[2022-09-05 19:26] LABS: Hematocrit 25.2 % (42.0-52.0); Hemoglobin 8.8 g/dl (14.0-18.0); Mean Corpuscular HGB Conc 34.9 g/dl (31.0-36.0); Mean Corpuscular Hemoglobin 28.2 pg (27.0-33.0); Mean Corpuscular Volume 80.8 fL (80.0-98.0); Mean Platelet Volume 10.7 fL (9.4-12.4); PLT CLUMP 1; Red Blood Count 3.12 X10*6/uL (4.60-5.80); Red Cell Distribution Width 12.9 % (11.0-16.0)
[2022-09-05 19:29] LABS: Platelet Count 289 X10*3/uL (160-400); White Blood Count 18.4 X10*3/uL (4.8-10.8)
[2022-09-05 19:40] LABS: Vancomycin Random 8.6 mcg/mL (15-20)
[2022-09-05 19:41] VITALS: BP 133/62; PULSE 78; RESP 17; TEMP 37.3; O2SAT 95
[2022-09-05] MEDS: vancomycin HCL 1,250 MG in 0.9 % Sodium Chloride 250 ML 166.67 MG IV (20:04)
[2022-09-05 20:45] LABS: Glucose, Whole Blood 199 mg/dL (60-115)
[2022-09-05] MEDS: 0.9 % Sodium Chloride Flush 3 ML SYRINGE IVFLUSH (23:55)
[2022-09-06 03:49] VITALS: BP 122/70; PULSE 69; RESP 17; TEMP 36.6; O2SAT 93
[2022-09-06] MEDS: Gabapentin 100 MG CAPSULE PO ×3 (04:02→20:41)
[2022-09-06] MEDS: cefEPime HCl 2 GM in 0.9 % Sodium Chloride 50 ML IV ×2 (06:33→19:04)
[2022-09-06] MEDS: Levothyroxine Sodium 150 MCG TABLET PO (06:33)
[2022-09-06 07:54] VITALS: BP 123/58; PULSE 70; RESP 16; TEMP 36.7; O2SAT 93
[2022-09-06 07:54] LABS: Glucose, Whole Blood 125 mg/dL (60-115)
[2022-09-06] MEDS: vancomycin HCL 1,250 MG in 0.9 % Sodium Chloride 250 ML 166.67 MG IV (08:39)
[2022-09-06] MEDS: Ezetimibe 10 MG TABLET PO (08:40)
[2022-09-06] MEDS: Insulin Glargine,Hum.rec.anlog 100 UNIT/ML 10 ML VIAL 21 UNIT SUBCUT (08:40)
[2022-09-06] MEDS: Cholecalciferol (Vitamin D3) 25 MCG TABLET 50 MCG PO (08:40)
[2022-09-06] MEDS: Fenofibrate 54 MG TABLET PO (08:40)
[2022-09-06] MEDS: Heparin Sodium,Porcine 5,000 UNIT/ML VIAL 5000 UNIT SUBCUT ×2 (08:40→20:41)
[2022-09-06] MEDS: Escitalopram Oxalate 10 MG TABLET PO (08:40)
[2022-09-06] MEDS: 0.9 % Sodium Chloride Flush 3 ML SYRINGE IVFLUSH ×2 (08:41→15:51)
--- NOTE | 2022-09-06 09:11 | P.CDIM_ITS ---
PROVIDER RESPONSE TEXT: To clarify, the appropriate diagnosis supported by the clinical indicators: Sepsis was present on admission QUERY TEXT: PHYSICIAN'S DOCUMENTATION REQUEST Date of Query: 09/05/2022 10:16 AM EDT Patient Name: Mehul Beltran Admit Date: 09/04/2022 Dear Yony Barber, A review of the medical record indicates additional documentation may be needed. Please review below and update the documentation accordingly. Clinical Indicators: The diagnosis of Sepsis was documented on 09/05/22 but is not consistently noted in previous documenta tion. Per MD progress note 09/04/22: leukocytosis 20.5, vitals stable. No sepsis WBC 20.5, LA .9 Blood culture preliminary 09/03/22:GPC On IV Vancomycin and IV Cefepime Please clarify the following: Sepsis was present on admission Sepsis was present on admission and is still being monitored, evaluated, or treated Sepsis was ruled out Sepsis is still a likely, suspected, probable diagnosis Other (explain) Clinically unable to determine (explain) Thank you, Jacki Foley RN Use of terms such as suspected, likely, concern for, or probable (associated with a specific diagnosi s that is being evaluated, monitored, or treated as if it exists) are acceptable and can be coded in the inpatient se tting, when documented at the time of discharge. Please use your independent medical judgment in providing your response. THIS QUERY IS PART OF THE PERMANENT MEDICAL RECORD
--- NOTE | 2022-09-06 09:26 | P.PNIM_ITS ---
Subjective Subjective Date of Service: 09/06/22 Interval History: f/u on diabetic foot ulcer, concern for osteo no pain, Physical Exam Vital Signs: Vital Signs: Last Vital Signs Temp 98.0 F 09/06/22 07:54 Pulse 70 09/06/22 07:54 Resp 16 09/06/22 07:54 BP 123/58 L 09/06/22 07:54 Pulse Ox 93 09/06/22 07:54 O2 Del Method 09/06/22 07:54 O2 Flow Rate 2 09/06/22 07:54 BMI result Body Mass Index 40.4 Const: Other: General: AO X 3, no acute distress Resp: CTA bilateral CVS: S1,S2,RRR GI: +BS, NT, no distention Skin: See picture from H and P Neuro: motor grossly intact Psych: appropriate affect Objective Data Active Medications Acetaminophen (Acetaminophen 325 Mg Tablet) 650 mg PO Q6H PRN PRN Reason: Pain, Mild (Pain Scale 1-3) Ezetimibe (Ezetimibe 10 Mg Tablet) 10 mg PO DAILY [facility] Last Admin: 09/06/22 08:40 Dose: 10 mg Documented By: JOSETTE Escitalopram Oxalate (Escitalopram Oxalate 10 Mg Tablet) 10 mg PO DAILY [facility] Last Admin: 09/06/22 08:40 Dose: 10 mg Documented By: JOSETTE Fenofibrate (Fenofibrate 54 Mg Tablet) 54 mg PO DAILY [facility] Last Admin: 09/06/22 08:40 Dose: 54 mg Documented By: JOSETTE Gabapentin (Gabapentin 100 Mg Capsule) 100 mg PO Q8H [facility] Last Admin: 09/06/22 04:02 Dose: 100 mg Documented By: SILVANA Glucose (Glucose Gel 15 Gm Gel..Gram.) 15 gm PO Q15M PRN; Protocol PRN Reason: per Hypoglycemia Standing Ord. Heparin Sodium (Porcine) (Heparin Sodium,Porcine 5,000 Unit/Ml Vial) 5,000 unit SUBCUT Q12H [facility] Last Admin: 09/06/22 08:40 Dose: 5,000 unit Documented By: JOSETTE Cefepime HCl 2 gm/ Sodium (Chloride) 50 mls @ 100 mls/hr IV Q12H [facility] Last Infusion: 09/06/22 08:22 Dose: 100 mls/hr Documented By: JOSETTE Dextrose (D10) 250 mls @ 750 mls/hr IV Q15M PRN; Protocol PRN Reason: per Hypoglycemia Standing Ord. Vancomycin HCl 1,250 mg/ (Sodium Chloride) 250 mls @ 166.667 mls/hr IV Q12H [facility] Last Admin: 09/06/22 08:39 Dose: 166.67 mls/hr Documented By: JOSETTE Insulin Glargine (Insulin Glargine,Hum.Rec.Anlog 100 Unit/Ml 10 Ml Vial) 21 unit SUBCUT DAILY [facility] Last Admin: 09/06/22 08:40 Dose: 21 unit Documented By: JOSETTE Insulin Human Lispro (Insulin Lispro 100 Unit/Ml 3 Ml Vial) 0 unit SUBCUT QIDACHS [facility]; Protocol Last Admin: 09/06/22 08:21 Dose: Not Given Documented By: JOSETTE Non-Admin Reason: No Insulin Coverage Levothyroxine Sodium (Levothyroxine Sodium 150 Mcg Tablet) 150 mcg PO DAILY@0600 [facility] Last Admin: 09/06/22 06:33 Dose: 150 mcg Documented By: SILVANA Morphine Sulfate (Morphine Sulfate 4 Mg/Ml Cartridge) 2 mg IVPUSH Q4H PRN; Protocol PRN Reason: Pain, Severe (Pain Scale 7-10) Non-Formulary Medication (Simvastatin) 40 mg PO DAILY [facility] Ondansetron HCl (Ondansetron Hcl 4 Mg/2 Ml Vial) 4 mg IVPUSH Q8H PRN PRN Reason: Nausea and Vomiting Pharmacy Consult (Consult Rx Perform Med Rec) 1 each MISCELLANE ONCE PRN PRN Reason: Consult order Pharmacy Consult (Consult Rx Vancomycin Dosing) 1 each MISCELLANE DAILY PRN PRN Reason: Consult order Pharmacy Consult (Consult Rx Vancomycin Dosing) 1 each MISCELLANE DAILY PRN PRN Reason: Consult order Sodium Chloride (0.9 % Sodium Chloride Flush 3 Ml Syringe) 3 ml IVFLUSH QSHIFT [facility] Last Admin: 09/06/22 08:41 Dose: 3 ml Documented By: JOSETTE Vitamin D (Cholecalciferol (Vitamin D3) 25 Mcg Tablet) 50 mcg PO DAILY [facility] Last Admin: 09/06/22 08:40 Dose: 50 mcg Documented By: JOSETTE Labs 09/05/22 19:08 09/05/22 05:40 Labs: Laboratory Results - last 24 hr 09/05/22 09/05/22 09/05/22 05:40 11:13 16:46 MCV MCH MCHC RDW Plt Count MPV Absolute Nucleated RBC Nucleated RBC % (auto) Anion Gap 12 Estim Creat Clear Calc 124.9 Estimated GFR > 60 POC Glucose 171 H 221 H Random Glucose 93 Calcium 7.8 L Random Vancomycin 09/05/22 09/05/22 09/05/22 19:08 19:08 20:35 MCV 80.8 MCH 28.2 MCHC 34.9 RDW 12.9 Plt Count 289 MPV 10.7 Absolute Nucleated RBC 0.000 Nucleated RBC % (auto) 0.0 Anion Gap Estim Creat Clear Calc Estimated GFR POC Glucose 199 H Random Glucose Calcium Random Vancomycin 8.6 L 09/06/22 07:45 MCV MCH MCHC RDW Plt Count MPV Absolute Nucleated RBC Nucleated RBC % (auto) Anion Gap Estim Creat Clear Calc Estimated GFR POC Glucose 125 H Random Glucose Calcium Random Vancomycin Microbiology Microbiology Results: Microbiology 09/03/22 18:15 Blood Culture - Preliminary Blood - Venous Methicillin Res Staph Aureus Enterococcus faecalis 09/03/22 17:43 Blood Culture - Final Blood - Venous Methicillin Res Staph Aureus 09/04/22 Unknown Urine Culture - Final Urine clean catch - Urine pineda top Assessment and Plan (1) JJ (acute kidney injury): Status: Acute (2) Diabetic foot ulcer: Status: Acute (3) Osteomyelitis: Status: Acute Plan 52-year-old male with history of insulin-dependent type 2 diabetes, hypothyroidism, hyperlipidemia, hypertension, congestive heart failure, proteinuria, and nonhealing diabetic left foot ulcer who is morbidly obese admitted for nonhealing diabetic foot ulcer of the right foot with cellulitis and question of osteomyelitis. #Sepsis #gram positive cocci bactermia (MRSA and E. Feacalis) #Osteomylitis of R 4th and 5th metatarsophalangeal joints on MRI # nonhealing right diabetic foot ulcer with cellulitis -recently completed 6 weeks IV ertapenem on 08/10 with recent discharge from [facility] on 06/29.? MRI at that time negative for osteomyelitis, but extended antibiotics recommended by ID -x-ray of right foot negative for any bony erosions or periosteal thickening but showing soft tissue swelling -ESR 112, CRP 25 -leukocytosis 20.5, going down to 18, vitals stable.? No sepsis -continue IV vancomycin and renally adjusted cefepime -has known PAD but no recent arterial imaging.? Arterial Doppler normal flow -General surgery and Infectious Disease input -follow CBC and blood cultures -repeat culture -He will need at least 4 weeks of IV Abx per ID # acute kidney injury-likely related to hypovolemia, resolved with IVF # acute hyponatremia-likely related to hypovolemia and thiazide diuretic use -urine studies ordered Hold thiazide diuretics, recheck labs -consider Nephrology consult if no improvement # insulin-dependent type 2 diabetes with hyperglycemia -hemoglobin A1c pending -continue basal insulin -Humalog on sliding scale -POC glucose -diabetic diet # hypertension-continue home meds # hypothyroidism -continue levothyroxine # hyperlipidemia -continue Zetia and statin # congestive heart failure, ejection fraction unspecified -euvolemic appearing, no acute exacerbation DVT prophylaxis-heparin Full code need for ipatient: treatment and work up for osteomyltisis Findings consistent with osteomyelitis and septic arthritis at the as well as the fourth and fifth Time Spent With Patient Time: Total time managing care of this patient today ____ minutes. Quality Stroke Does the patient have a stroke diagnosis?: No VTE Prior VTE?: No VTE Risk Level:: Medical - moderate - high VTE Device Contraindication: Treatment Not Indicated VTE Drug Contraindication: N/A - Med Ordered
[2022-09-06 09:28] LABS: Creatinine Clr Calc Pharmacy 107.9; Estimated Glomerular Filt Rate > 60
[2022-09-06 10:07] LABS: Anion Gap 13 (12-20)
[2022-09-06 10:09] LABS: Blood Urea Nitrogen 19 mg/dL (9-16); Calcium 7.8 mg/dL (8.4-10.2); Carbon Dioxide 20 mmol/L (22-29); Chloride 102 mmol/L (96-108); Glucose Random 150 mg/dL (60-115); Potassium 4.1 mmol/L (3.3-5.1); Sodium 131 mmol/L (135-145)
[2022-09-06 10:57] VITALS: O2SAT 88; O2SAT 92
[2022-09-06 11:45] LABS: Glucose, Whole Blood 189 mg/dL (60-115)
[2022-09-06] MEDS: Insulin Lispro 100 UNIT/ML 3 ML VIAL SUBCUT ×3 (11:59→21:09)
[2022-09-06 14:57] VITALS: BP 126/61; PULSE 69; RESP 18; TEMP 37.1; O2SAT 94
--- NOTE | 2022-09-06 15:47 | P.CDIM_ITS ---
PROVIDER RESPONSE TEXT: To clarify, the appropriate diagnosis supported by the clinical indicators: Acute QUERY TEXT: >>> Provider Instructions - Do not remove this line >>> PHYSICIAN'S DOCUMENTATION REQUEST Date of Query: 09/06/2022 02:42 PM EDT Patient Name: Mehul Beltran Admit Date: 09/04/2022 [facility] A review of the medical record indicates additional documentation may be needed. Please review below and update the documentation accordingly. Clinical Indicators: per MD progress note 09/06/22: Osteomylitis of R 4th and 5th metatarsophalangeal joints on MRI Clarify which of the following accurately represents the acuity of the (insert diagnosis). Possible options might include: <<< Provider Instructions - Do not remove this line <<< Acute Acute on chronic Compensated Chronic stable condition Remission Other (explain) Clinically unable to determine (explain) >>> Contact Info Do not remove this line>>> Thank you, Jacki Foley RN Use of terms such as suspected, likely, concern for, or probable (associated with a specific diagnosi s that is being evaluated, monitored, or treated as if it exists) are acceptable and can be coded in the inpatient se tting, when documented at the time of discharge. Please use your independent medical judgment in providing your response. THIS QUERY IS PART OF THE PERMANENT MEDICAL RECORD <<< Contact Info Do not remove this line <<< >>> Disclaimer - Do no remove this line>>> Extension: [phone] <<< Disclaimer - Do not remove this line<<<
[2022-09-06 16:25] LABS: Glucose, Whole Blood 181 mg/dL (60-115)
[2022-09-06 18:58] LABS: Vancomycin Random 15.6 mcg/mL (15-20)
--- NOTE | 2022-09-06 19:29 | HE.PHANOTE ---
VANCO ADJUSTMENT BASED ON SCR INCREASE AND TROUGH OF 15.6. DOSE CHANGED FROM 1250 Q 12H TO 1000MG Q 12. TROUGH ORDERED FOR 09/07 @ 1800
[2022-09-06 20:00] VITALS: BP 126/60; PULSE 79; RESP 18; TEMP 36.6; O2SAT 93
[2022-09-06] MEDS: vancomycin HCL 1,000 MG in 0.9 % Sodium Chloride 250 ML 270 MG IV (20:41)
[2022-09-06 21:00] LABS: Glucose, Whole Blood 182 mg/dL (60-115)
--- NOTE | 2022-09-06 22:05 | PC.NURSE ---
incontinent with urine x 1 , bladder scanned for 178 ml , [place] cath replaced
[2022-09-07] MEDS: 0.9 % Sodium Chloride Flush 3 ML SYRINGE IVFLUSH ×4 (00:15→20:44)
[2022-09-07 03:28] VITALS: BP 148/64; PULSE 83; RESP 17; TEMP 36.9; O2SAT 93
[2022-09-07] MEDS: Gabapentin 100 MG CAPSULE PO ×3 (05:52→20:51)
[2022-09-07] MEDS: Levothyroxine Sodium 150 MCG TABLET PO (05:52)
[2022-09-07] MEDS: cefEPime HCl 2 GM in 0.9 % Sodium Chloride 50 ML IV ×2 (06:28→20:47)
[2022-09-07 06:35] LABS: Hemoglobin 8.8 g/dl (14.0-18.0); Mean Corpuscular HGB Conc 33.8 g/dl (31.0-36.0); Mean Corpuscular Hemoglobin 27.8 pg (27.0-33.0); Mean Platelet Volume 9.5 fL (9.4-12.4); Platelet Count 361 X10*3/uL (160-400); Red Blood Count 3.17 X10*6/uL (4.60-5.80); Red Cell Distribution Width 13.1 % (11.0-16.0); White Blood Count 20.6 X10*3/uL (4.8-10.8)
[2022-09-07 06:55] LABS: Creatinine Clr Calc Pharmacy 115.8; Estimated Glomerular Filt Rate > 60
--- NOTE | 2022-09-07 07:00 | CA_ITS ---
Transthoracic Echocardiogram Patient (Last, First, Middle): Mehul Beltran, Gender: Male Date of : 1970 Age: 52 Procedure Date: 09/07/2022 Procedure Type: Transthoracic Echocardiogram Location: OP Height: 175.26 cm Weight: 123.83 kg BSA: 2.36 m2 Heart Rate: 73 bpm BP: 123 / 58 mmHg Appraiser: NARCISA Referring MD: Yony Barber MD Symptoms: bacteremia, concern for endocarditis Study Quality: Adequate w contrast ECG Rhythm: Sinus Conclusions: - Normal left ventricular size, thickness, and systolic function. The visually estimated ejection fraction is between 60-65%. - Normal right ventricular cavity size and systolic function. - There is mild dilatation of the ascending aorta measuring 3.60 cm. Findings Procedure Information Contrast agent, definity, is being given per protocol without apparent complications. The quality of the study was fair. The study quality is limited by patients body habitus. Left Ventricle Normal left ventricular size, thickness, and systolic function. The visually estimated ejection fraction is between 60-65%. There is no evidence of regional wall motion abnormalities. Diastolic function is normal for age. Right Ventricle Normal right ventricular cavity size and systolic function. Atria The left atrium is normal in size. Aortic Valve Normal aortic valve structure and function. There is mild thickening of the aortic valve. There is no aortic valve stenosis. There is no aortic valve regurgitation. Mitral Valve Normal mitral valve structure and function. There is no mitral valve regurgitation. There is no mitral valve stenosis. Pulmonic Valve The pulmonic valve is likely normal. Tricuspid Valve Likely normal tricuspid valve structure and function. Tricuspid regurgitation envelope is inadequate for calculation of right ventricular systolic pressure. Normal right atrial pressure. Great Vessels There is mild dilatation of the ascending aorta measuring 3.60 cm. The visualized portions of the pulmonary artery and branches are normal. Venous The inferior vena cava is normal in size and collapses greater than 50% with inspiration. Pericardium/Pleural There is no evidence of pericardial effusion. Prior Study Comparison Changes noted compared to prior study dated: 08/14/2018. Normal wall thickness. Recommendations, Care & Conclusions Consider a DEBRA if clinically appropriate. Measurements 2D Linear Measurements IVSd: 0.95 0.6-0.9/0.6-1.0 cm LVIDd: 5.17 3.9-5.3/4.2-5.9 cm LVIDd Index: 2.19 2.4-3.2/2.2-3.1 cm/m2 LVIDs: 2.94 2.0-3.6 cm LVPWd: 0.85 0.7-1.1 cm LA Diam: 3.60 2.7-3.8/3.0-4.0 cm LAIDs Index: 1.53 1.5-2.3 cm/m2 LV Mass: 208.29 67-162/88-224 g LV Mass Index: 88.26 43-95/49-115 g/m2 LVOT Diam: 2.20 3.0+(-)1.3 cm 2D Systolic Function EF 4C: 81.30 >55% Mitral Valve MV Pk E: 1.15 MV PK A: 1.03 MV Decel Time: 158.00 E/A: 1.10 E'Lateral: 11.60 E'Medial: 10.30 E/E' Med: 11.20 E/E' Lat: 9.90 PHT: 46.00 MVA PHT: 4.78 Decel Nash: 7.30 Aortic Valve AoV Pk Dhaval: 1.57 AoV Pk Grad: 10.00 BARRY: 2.57 LVOT LVOT Pk Dhaval: 1.06 LVOT Mn Dhaval: 0.68 LVOT VTI: 0.19 LVOT Pk Grad: 4.00 LVOT Mn Grad: 2.00 LVOT Diam: 2.20 LVOT Area: 3.80 Diastolic Function MV Pk E: 1.15 MV Pk A: 1.03 E/A: 1.10 E'Medial: 10.30 E/E' Med: 11.20 E' Laterial: 11.60 E/E' Lat: 9.90 Right Ventricle TAPSE (mm): 25.00 TVS' Dhaval: 16.80 Tricuspid Valve RA Press: 8.00 Great Vessels Aorta Sinus of Valsalva: 3.30 2.0-3.5 cm Ao Asc: 3.60 2.1-3.4 cm Pulmonary Veins Pulm Vein S/D 1.00 Pulmonary Valve PV Pk Dhaval: 1.09 Peak PV Grad: 5.00 Updated in Other Vendor System with Status of Final Deon Goldberg MD electronically signed on 09/09/2022 8:27:00 PM with status of Final
[2022-09-07 07:40] VITALS: BP 119/57; PULSE 73; RESP 18; TEMP 36.8; O2SAT 94
[2022-09-07 08:06] LABS: Glucose, Whole Blood 158 mg/dL (60-115)
[2022-09-07] MEDS: Insulin Glargine,Hum.rec.anlog 100 UNIT/ML 10 ML VIAL 21 UNIT SUBCUT (08:42)
[2022-09-07] MEDS: Insulin Lispro 100 UNIT/ML 3 ML VIAL SUBCUT ×4 (08:43→21:53)
[2022-09-07] MEDS: Escitalopram Oxalate 10 MG TABLET PO (08:44)
[2022-09-07] MEDS: Heparin Sodium,Porcine 5,000 UNIT/ML VIAL 5000 UNIT SUBCUT ×2 (08:44→20:51)
[2022-09-07] MEDS: Fenofibrate 54 MG TABLET PO (08:44)
[2022-09-07] MEDS: Ezetimibe 10 MG TABLET PO (08:44)
[2022-09-07] MEDS: Cholecalciferol (Vitamin D3) 25 MCG TABLET 50 MCG PO (08:44)
[2022-09-07] MEDS: vancomycin HCL 1,000 MG in 0.9 % Sodium Chloride 250 ML 270 MG IV (08:45)
--- NOTE | 2022-09-07 09:42 | P.PNIM_ITS ---
Subjective Subjective Date of Service: 09/07/22 Interval History: f/u on diabetic foot ulcer, concern for osteo no pain, Physical Exam Vital Signs: Vital Signs: Last Vital Signs Temp 98.2 F 09/07/22 07:40 Pulse 73 09/07/22 07:40 Resp 18 09/07/22 07:40 BP 119/57 L 09/07/22 07:40 Pulse Ox 94 09/07/22 07:40 O2 Del Method 09/07/22 07:40 O2 Flow Rate 2 09/07/22 03:28 BMI result Body Mass Index 40.4 Const: Other: General: AO X 3, no acute distress Resp: CTA bilateral CVS: S1,S2,RRR GI: +BS, NT, no distention Skin: See picture from H and P Neuro: motor grossly intact Psych: appropriate affect Objective Data Active Medications Acetaminophen (Acetaminophen 325 Mg Tablet) 650 mg PO Q6H PRN PRN Reason: Pain, Mild (Pain Scale 1-3) Ezetimibe (Ezetimibe 10 Mg Tablet) 10 mg PO DAILY [facility] Last Admin: 09/07/22 08:44 Dose: 10 mg Documented By: JOSETTE Escitalopram Oxalate (Escitalopram Oxalate 10 Mg Tablet) 10 mg PO DAILY [facility] Last Admin: 09/07/22 08:44 Dose: 10 mg Documented By: JOSETTE Fenofibrate (Fenofibrate 54 Mg Tablet) 54 mg PO DAILY [facility] Last Admin: 09/07/22 08:44 Dose: 54 mg Documented By: JOSETTE Gabapentin (Gabapentin 100 Mg Capsule) 100 mg PO Q8H [facility] Last Admin: 09/07/22 05:52 Dose: 100 mg Documented By: NAHID Glucose (Glucose Gel 15 Gm Gel..Gram.) 15 gm PO Q15M PRN; Protocol PRN Reason: per Hypoglycemia Standing Ord. Heparin Sodium (Porcine) (Heparin Sodium,Porcine 5,000 Unit/Ml Vial) 5,000 unit SUBCUT Q12H [facility] Last Admin: 09/07/22 08:44 Dose: 5,000 unit Documented By: JOSETTE Cefepime HCl 2 gm/ Sodium (Chloride) 50 mls @ 100 mls/hr IV Q12H [facility] Last Infusion: 09/07/22 06:58 Dose: 0 mls/hr Documented By: NAHID Dextrose (D10) 250 mls @ 750 mls/hr IV Q15M PRN; Protocol PRN Reason: per Hypoglycemia Standing Ord. Vancomycin HCl 1,000 mg/ (Sodium Chloride) 270 mls @ 270 mls/hr IV Q12H [facility] Last Admin: 09/07/22 08:45 Dose: 270 mls/hr Documented By: JOSETTE Insulin Glargine (Insulin Glargine,Hum.Rec.Anlog 100 Unit/Ml 10 Ml Vial) 21 unit SUBCUT DAILY [facility] Last Admin: 09/07/22 08:42 Dose: 21 unit Documented By: JOSETTE Insulin Human Lispro (Insulin Lispro 100 Unit/Ml 3 Ml Vial) 0 unit SUBCUT QIDACHS [facility]; Protocol Last Admin: 09/07/22 08:43 Dose: 2 unit Documented By: JOSETTE Levothyroxine Sodium (Levothyroxine Sodium 150 Mcg Tablet) 150 mcg PO DAILY@0600 [facility] Last Admin: 09/07/22 05:52 Dose: 150 mcg Documented By: NAHID Morphine Sulfate (Morphine Sulfate 4 Mg/Ml Cartridge) 2 mg IVPUSH Q4H PRN; Protocol PRN Reason: Pain, Severe (Pain Scale 7-10) Non-Formulary Medication (Simvastatin) 40 mg PO DAILY [facility] Ondansetron HCl (Ondansetron Hcl 4 Mg/2 Ml Vial) 4 mg IVPUSH Q8H PRN PRN Reason: Nausea and Vomiting Pharmacy Consult (Consult Rx Perform Med Rec) 1 each MISCELLANE ONCE PRN PRN Reason: Consult order Pharmacy Consult (Consult Rx Vancomycin Dosing) 1 each MISCELLANE DAILY PRN PRN Reason: Consult order Pharmacy Consult (Consult Rx Vancomycin Dosing) 1 each MISCELLANE DAILY PRN PRN Reason: Consult order Sodium Chloride (0.9 % Sodium Chloride Flush 3 Ml Syringe) 3 ml IVFLUSH QSHIFT [facility] Last Admin: 09/07/22 08:45 Dose: 3 ml Documented By: JOSETTE Vitamin D (Cholecalciferol (Vitamin D3) 25 Mcg Tablet) 50 mcg PO DAILY [facility] Last Admin: 09/07/22 08:44 Dose: 50 mcg Documented By: JOSETTE Labs 09/07/22 05:58 09/07/22 05:58 Labs: Laboratory Results - last 24 hr 09/06/22 09/06/22 09/06/22 08:58 11:12 16:21 MCV MCH MCHC RDW Plt Count MPV Absolute Nucleated RBC Nucleated RBC % (auto) Anion Gap 13 Estim Creat Clear Calc 107.9 Estimated GFR > 60 POC Glucose 189 H 181 H Random Glucose 150 H Calcium 7.8 L Random Vancomycin 09/06/22 09/06/22 09/07/22 18:09 20:52 05:58 MCV 82.0 MCH 27.8 MCHC 33.8 RDW 13.1 Plt Count 361 MPV 9.5 Absolute Nucleated RBC 0.000 Nucleated RBC % (auto) 0.0 Anion Gap Estim Creat Clear Calc Estimated GFR POC Glucose 182 H Random Glucose Calcium Random Vancomycin 15.6 09/07/22 09/07/22 05:58 07:35 MCV MCH MCHC RDW Plt Count MPV Absolute Nucleated RBC Nucleated RBC % (auto) Anion Gap Estim Creat Clear Calc 115.8 Estimated GFR > 60 POC Glucose 158 H Random Glucose Calcium Random Vancomycin Microbiology Microbiology Results: Microbiology 09/03/22 18:15 Blood Culture - Final Blood - Venous Methicillin Res Staph Aureus Enterococcus faecalis 09/03/22 17:43 Blood Culture - Final Blood - Venous Methicillin Res Staph Aureus Assessment and Plan (1) JJ (acute kidney injury): Status: Acute (2) Diabetic foot ulcer: Status: Acute (3) Osteomyelitis: Status: Acute Plan 52-year-old male with history of insulin-dependent type 2 diabetes, hypothyroidism, hyperlipidemia, hypertension, congestive heart failure, proteinuria, and nonhealing diabetic left foot ulcer who is morbidly obese admitted for nonhealing diabetic foot ulcer of the right foot with cellulitis and question of osteomyelitis. #Sepsis, WBC is still high #gram positive cocci bactermia (MRSA and E. Feacalis) #Osteomylitis of R 4th and 5th metatarsophalangeal joints on MRI # nonhealing right diabetic foot ulcer with cellulitis -recently completed 6 weeks IV ertapenem on 08/10 with recent discharge from [facility] on 06/29.? MRI at that time negative for osteomyelitis, but extended antibiotics recommended by ID -x-ray of right foot negative for any bony erosions or periosteal thickening but showing soft tissue swelling -ESR 112, CRP 25 -leukocytosis 20.5, going down to 18, vitals stable.? No sepsis -continue IV vancomycin and renally adjusted cefepime -has known PAD but no recent arterial imaging.? Arterial Doppler normal flow -General surgery and Infectious Disease input -follow CBC and blood cultures -repeat blood cultures, he has been refusing -He will need at least 4 weeks of IV Abx per ID # acute kidney injury-likely related to hypovolemia, resolved with IVF # acute hyponatremia-likely related to hypovolemia and thiazide diuretic use -urine studies ordered Hold thiazide diuretics, recheck labs -consider Nephrology consult if no improvement # insulin-dependent type 2 diabetes with hyperglycemia -hemoglobin A1c pending -continue basal insulin -Humalog on sliding scale -POC glucose -diabetic diet # hypertension-continue home meds # hypothyroidism -continue levothyroxine # hyperlipidemia -continue Zetia and statin # congestive heart failure, ejection fraction unspecified -euvolemic appearing, no acute exacerbation DVT prophylaxis-heparin Full code need for ipatient: treatment and work up for osteomyltisis Findings consistent with osteomyelitis and septic arthritis at the as well as the fourth and fifth Time Spent With Patient Time: Total time managing care of this patient today ____ minutes. Quality Stroke Does the patient have a stroke diagnosis?: No VTE Prior VTE?: No VTE Risk Level:: Medical - moderate - high VTE Device Contraindication: Treatment Not Indicated VTE Drug Contraindication: N/A - Med Ordered
[2022-09-07 11:24] LABS: Glucose, Whole Blood 225 mg/dL (60-115)
--- NOTE | 2022-09-07 13:54 | MHC.CM.PN ---
EMR REVIEWED AND PER MD ROUNDS, PT NOT MEDICALLY CLEARED FOR DC (W/U OSTEOMYELITIS OF FOOT) CM WILL CONTINUE TO FOLLOW. PLAN TO RETURN TO [facility] FOR STR.
[2022-09-07 15:43] VITALS: BP 148/72; PULSE 82; RESP 18; TEMP 37; O2SAT 93
[2022-09-07 16:12] LABS: Glucose, Whole Blood 281 mg/dL (60-115)
[2022-09-07 19:08] LABS: Vancomycin Random 14.6 mcg/mL (15-20)
[2022-09-07 19:57] VITALS: BP 130/61; PULSE 68; RESP 17; TEMP 36.8; O2SAT 94
[2022-09-07 20:37] LABS: Glucose, Whole Blood 181 mg/dL (60-115)
[2022-09-07] MEDS: vancomycin HCL 1,250 MG in 0.9 % Sodium Chloride 250 ML 166.67 MG IV (21:49)
[2022-09-08 03:37] VITALS: BP 134/66; PULSE 70; RESP 17; TEMP 36.6; O2SAT 95
[2022-09-08] MEDS: Levothyroxine Sodium 150 MCG TABLET PO (05:25)
[2022-09-08] MEDS: Gabapentin 100 MG CAPSULE PO ×3 (05:25→21:09)
[2022-09-08] MEDS: cefEPime HCl 2 GM in 0.9 % Sodium Chloride 50 ML IV ×2 (06:14→19:42)
[2022-09-08 07:30] VITALS: BP 128/65; PULSE 68; RESP 18; TEMP 37.3; O2SAT 95
[2022-09-08 07:52] LABS: Glucose, Whole Blood 154 mg/dL (60-115)
[2022-09-08] MEDS: Insulin Lispro 100 UNIT/ML 3 ML VIAL SUBCUT ×3 (08:17→16:52)
[2022-09-08] MEDS: Insulin Glargine,Hum.rec.anlog 100 UNIT/ML 10 ML VIAL 21 UNIT SUBCUT (08:17)
[2022-09-08] MEDS: Heparin Sodium,Porcine 5,000 UNIT/ML VIAL 5000 UNIT SUBCUT ×2 (08:18→21:09)
[2022-09-08] MEDS: Fenofibrate 54 MG TABLET PO (08:18)
[2022-09-08] MEDS: Ezetimibe 10 MG TABLET PO (08:18)
[2022-09-08] MEDS: Escitalopram Oxalate 10 MG TABLET PO (08:18)
[2022-09-08] MEDS: Cholecalciferol (Vitamin D3) 25 MCG TABLET 50 MCG PO (08:18)
[2022-09-08] MEDS: vancomycin HCL 1,250 MG in 0.9 % Sodium Chloride 250 ML 250 MG IV (08:19)
--- NOTE | 2022-09-08 08:40 | P.PNIM_ITS ---
Subjective Subjective Date of Service: 09/08/22 Interval History: f/u on diabetic foot ulcer, concern for osteo no pain, Physical Exam Vital Signs: Vital Signs: Last Vital Signs Temp 99.1 F 09/08/22 07:30 Pulse 68 09/08/22 07:30 Resp 18 09/08/22 07:30 BP 128/65 09/08/22 07:30 Pulse Ox 95 09/08/22 07:30 O2 Del Method 09/08/22 07:30 O2 Flow Rate 2 09/08/22 03:37 BMI result Body Mass Index 40.4 Const: Other: General: AO X 3, no acute distress Resp: CTA bilateral CVS: S1,S2,RRR GI: +BS, NT, no distention Skin: See picture from H and P Neuro: motor grossly intact Psych: appropriate affect Objective Data Active Medications Acetaminophen (Acetaminophen 325 Mg Tablet) 650 mg PO Q6H PRN PRN Reason: Pain, Mild (Pain Scale 1-3) Ezetimibe (Ezetimibe 10 Mg Tablet) 10 mg PO DAILY [facility] Last Admin: 09/08/22 08:18 Dose: 10 mg Documented By: SRUTHI Escitalopram Oxalate (Escitalopram Oxalate 10 Mg Tablet) 10 mg PO DAILY [facility] Last Admin: 09/08/22 08:18 Dose: 10 mg Documented By: SRUTHI Fenofibrate (Fenofibrate 54 Mg Tablet) 54 mg PO DAILY [facility] Last Admin: 09/08/22 08:18 Dose: 54 mg Documented By: SRUTHI Gabapentin (Gabapentin 100 Mg Capsule) 100 mg PO Q8H [facility] Last Admin: 09/08/22 05:25 Dose: 100 mg Documented By: LILIA Glucose (Glucose Gel 15 Gm Gel..Gram.) 15 gm PO Q15M PRN; Protocol PRN Reason: per Hypoglycemia Standing Ord. Heparin Sodium (Porcine) (Heparin Sodium,Porcine 5,000 Unit/Ml Vial) 5,000 unit SUBCUT Q12H [facility] Last Admin: 09/08/22 08:18 Dose: 5,000 unit Documented By: SRUTHI Cefepime HCl 2 gm/ Sodium (Chloride) 50 mls @ 100 mls/hr IV Q12H [facility] Last Infusion: 09/08/22 07:20 Dose: 0 mls/hr Documented By: SRUTHI Dextrose (D10) 250 mls @ 750 mls/hr IV Q15M PRN; Protocol PRN Reason: per Hypoglycemia Standing Ord. Vancomycin HCl 1,250 mg/ (Sodium Chloride) 250 mls @ 166.667 mls/hr IV Q12H [facility] Last Admin: 09/08/22 08:19 Dose: 250 mls/hr Documented By: SRUTHI Insulin Glargine (Insulin Glargine,Hum.Rec.Anlog 100 Unit/Ml 10 Ml Vial) 21 unit SUBCUT DAILY [facility] Last Admin: 09/08/22 08:17 Dose: 21 unit Documented By: SRUTHI Insulin Human Lispro (Insulin Lispro 100 Unit/Ml 3 Ml Vial) 0 unit SUBCUT QIDACHS [facility]; Protocol Last Admin: 09/08/22 08:17 Dose: 2 unit Documented By: SRUTHI Levothyroxine Sodium (Levothyroxine Sodium 150 Mcg Tablet) 150 mcg PO DAILY @0600 [facility] Last Admin: 09/08/22 05:25 Dose: 150 mcg Documented By: LILIA Morphine Sulfate (Morphine Sulfate 4 Mg/Ml Cartridge) 2 mg IVPUSH Q4H PRN; Protocol PRN Reason: Pain, Severe (Pain Scale 7-10) Non-Formulary Medication (Simvastatin) 40 mg PO DAILY [facility] Ondansetron HCl (Ondansetron Hcl 4 Mg/2 Ml Vial) 4 mg IVPUSH Q8H PRN PRN Reason: Nausea and Vomiting Pharmacy Consult (Consult Rx Perform Med Rec) 1 each MISCELLANE ONCE PRN PRN Reason: Consult order Pharmacy Consult (Consult Rx Vancomycin Dosing) 1 each MISCELLANE DAILY PRN PRN Reason: Consult order Pharmacy Consult (Consult Rx Vancomycin Dosing) 1 each MISCELLANE DAILY PRN PRN Reason: Consult order Sodium Chloride (0.9 % Sodium Chloride Flush 3 Ml Syringe) 3 ml IVFLUSH QSHIFT [facility] Last Admin: 09/07/22 20:44 Dose: 3 ml Documented By: LILIA Vitamin D (Cholecalciferol (Vitamin D3) 25 Mcg Tablet) 50 mcg PO DAILY [facility] Last Admin: 09/08/22 08:18 Dose: 50 mcg Documented By: SRUTHI Labs 09/07/22 05:58 09/07/22 05:58 Labs: Laboratory Results - last 24 hr 09/07/22 09/07/22 09/07/22 11:08 15:42 18:14 POC Glucose 225 H 281 H Random Vancomycin 14.6 L 09/07/22 09/08/22 20:34 07:27 POC Glucose 181 H 154 H Random Vancomycin Microbiology Microbiology Results: Microbiology 09/03/22 18:15 Blood Culture - Final Blood - Venous Methicillin Res Staph Aureus Enterococcus faecalis Assessment and Plan (1) JJ (acute kidney injury): Status: Acute (2) Diabetic foot ulcer: Status: Acute (3) Osteomyelitis: Status: Acute Plan 52-year-old male with history of insulin-dependent type 2 diabetes, hypothyroidism, hyperlipidemia, hypertension, congestive heart failure, proteinuria, and nonhealing diabetic left foot ulcer who is morbidly obese admitted for nonhealing diabetic foot ulcer of the right foot with cellulitis and question of osteomyelitis. #Sepsis, WBC is still high #gram positive cocci bactermia (MRSA and E. Feacalis) #Osteomylitis of R 4th and 5th metatarsophalangeal joints on MRI # nonhealing right diabetic foot ulcer with cellulitis -recently completed 6 weeks IV ertapenem on 08/10 with recent discharge from [facility] on 06/29.? MRI at that time negative for osteomyelitis, but extended antibio tics recommended by ID -x-ray of right foot negative for any bony erosions or periosteal thickening but showing soft tissue swelling -ESR 112, CRP 25 -leukocytosis 20.5,, vitals stable.? No sepsis -continue IV vancomycin and renally adjusted cefepime -has known PAD but no recent arterial imaging.? Arterial Doppler normal flow -General surgery and Infectious Disease input -follow CBC and blood cultures -repeat blood cultures, he has been refusing -He will need at least 4 weeks of IV Abx per ID # acute kidney injury-likely related to hypovolemia, resolved with IVF # acute hyponatremia-likely related to hypovolemia and thiazide diuretic use -urine studies ordered Hold thiazide diuretics, recheck labs -consider Nephrology consult if no improvement # insulin-dependent type 2 diabetes with hyperglycemia -hemoglobin A1c pending -continue basal insulin -Humalog on sliding scale -POC glucose -diabetic diet # hypertension-continue home meds # hypothyroidism -continue levothyroxine # hyperlipidemia -continue Zetia and statin # congestive heart failure, ejection fraction unspecified -euvolemic appearing, no acute exacerbation DVT prophylaxis-heparin Full code need for ipatient: treatment and work up for osteomyltisis Time Spent With Patient Time: Total time managing care of this patient today ____ minutes. Quality Stroke Does the patient have a stroke diagnosis?: No VTE Prior VTE?: No VTE Risk Level:: Medical - moderate - high VTE Device Contraindication: Treatment Not Indicated VTE Drug Contraindication: N/A - Med Ordered
--- NOTE | 2022-09-08 09:35 | P.PNGS_ITS ---
Subjective Subjective Date of Service: 09/08/22 Interval history: Patient with no complaints of foot pain at this time. Physical Exam Vital Signs: Vital Signs: Last Vital Signs Temp 99.1 F 09/08/22 07:30 Pulse 68 09/08/22 07:30 Resp 18 09/08/22 07:30 BP 128/65 09/08/22 07:30 Pulse Ox 95 09/08/22 07:30 O2 Del Method 09/08/22 07:30 O2 Flow Rate 2 09/08/22 03:37 BMI result Body Mass Index 40.4 Const: General: no acute distress Nutritional Appearance: well nourished Orientation/consciousness: patient oriented x3 Limitations: no limitations Resp: Effort & Inspection: normal respiratory effort Neuro: General: patient oriented x3 Extrem: Other: Right foot wounds examined and dressings changed. Area of fluctuance noted in the plantar surface at the mid metatarsal level. Incision and drainage was performed in a large purulence collection drained thick yellow pus. Wounds were packed with quarter-inch Nu Gauze and covered with dry sterile dressings. Ankle/foot/toe images: 1. Site of abscess right foot Objective Data Active Medications Acetaminophen (Acetaminophen 325 Mg Tablet) 650 mg PO Q6H PRN PRN Reason: Pain, Mild (Pain Scale 1-3) Ezetimibe (Ezetimibe 10 Mg Tablet) 10 mg PO DAILY [facility] Last Admin: 09/08/22 08:18 Dose: 10 mg Documented By: SRUTHI Escitalopram Oxalate (Escitalopram Oxalate 10 Mg Tablet) 10 mg PO DAILY [facility] Last Admin: 09/08/22 08:18 Dose: 10 mg Documented By: SRUTHI Fenofibrate (Fenofibrate 54 Mg Tablet) 54 mg PO DAILY [facility] Last Admin: 09/08/22 08:18 Dose: 54 mg Documented By: SRUTHI Gabapentin (Gabapentin 100 Mg Capsule) 100 mg PO Q8H [facility] Last Admin: 09/08/22 05:25 Dose: 100 mg Documented By: LILIA Glucose (Glucose Gel 15 Gm Gel..Gram.) 15 gm PO Q15M PRN; Protocol PRN Reason: per Hypoglycemia Standing Ord. Heparin Sodium (Porcine) (Heparin Sodium,Porcine 5,000 Unit/Ml Vial) 5,000 unit SUBCUT Q12H [facility] Last Admin: 09/08/22 08:18 Dose: 5,000 unit Documented By: SRUTHI Cefepime HCl 2 gm/ Sodium (Chloride) 50 mls @ 100 mls/hr IV Q12H [facility] Last Infusion: 09/08/22 07:20 Dose: 0 mls/hr Documented By: SRUTHI Dextrose (D10) 250 mls @ 750 mls/hr IV Q15M PRN; Protocol PRN Reason: per Hypoglycemia Standing Ord. Vancomycin HCl 1,250 mg/ (Sodium Chloride) 250 mls @ 166.667 mls/hr IV Q12H [facility] Last Admin: 09/08/22 08:19 Dose: 250 mls/hr Documented By: SRUTHI Insulin Glargine (Insulin Glargine,Hum.Rec.Anlog 100 Unit/Ml 10 Ml Vial) 21 unit SUBCUT DAILY [facility] Last Admin: 09/08/22 08:17 Dose: 21 unit Documented By: SRUTHI Insulin Human Lispro (Insulin Lispro 100 Unit/Ml 3 Ml Vial) 0 unit SUBCUT QIDACHS [facility]; Protocol Last Admin: 09/08/22 08:17 Dose: 2 unit Documented By: SRUTHI Levothyroxine Sodium (Levothyroxine Sodium 150 Mcg Tablet) 150 mcg PO DAILY@0600 [facility] Last Admin: 09/08/22 05:25 Dose: 150 mcg Documented By: LILIA Morphine Sulfate (Morphine Sulfate 4 Mg/Ml Cartridge) 2 mg IVPUSH Q4H PRN; Protocol PRN Reason: Pain, Severe (Pain Scale 7-10) Non-Formulary Medication (Simvastatin) 40 mg PO DAILY [facility] Ondansetron HCl (Ondansetron Hcl 4 Mg/2 Ml Vial) 4 mg IVPUSH Q8H PRN PRN Reason: Nausea and Vomiting Pharmacy Consult (Consult Rx Perform Med Rec) 1 each MISCELLANE ONCE PRN PRN Reason: Consult order Pharmacy Consult (Consult Rx Vancomycin Dosing) 1 each MISCELLANE DAILY PRN PRN Reason: Consult order Pharmacy Consult (Consult Rx Vancomycin Dosing) 1 each MISCELLANE DAILY PRN PRN Reason: Consult order Sodium Chloride (0.9 % Sodium Chloride Flush 3 Ml Syringe) 3 ml IVFLUSH QSHIFT [facility] Last Admin: 09/07/22 20:44 Dose: 3 ml Documented By: LILIA Vitamin D (Cholecalciferol (Vitamin D3) 25 Mcg Tablet) 50 mcg PO DAILY [facility] Last Admin: 09/08/22 08:18 Dose: 50 mcg Documented By: SRUTHI Labs 09/07/22 05:58 09/07/22 05:58 Labs: Laboratory Results - last 24 hr 09/07/22 09/07/22 09/07/22 11:08 15:42 18:14 POC Glucose 225 H 281 H Random Vancomycin 14.6 L 09/07/22 09/08/22 20:34 07:27 POC Glucose 181 H 154 H Random Vancomycin Microbiology Microbiology Results: Microbiology 09/03/22 18:15 Blood Culture - Final Blood - Venous Methicillin Res Staph Aureus Enterococcus faecalis Procedures Date of Service Date of Service: 09/08/22 Abscess I/D Additional comments: Preoperative diagnosis: Abscess right foot, diabetes mellitus Postoperative diagnosis: Same Procedure: Incision and drainage abscess right foot Surgeon: Bao Dempsey MD Recycle Coordinator: None Anesthesia: None Indications for procedure: Abscess right foot is noted in the right foot MRI Operative findings: Abscess right foot Specimen: None Estimated blood loss: None Complications: None Procedure details: Patient was placed in a supine position at the bedside. After assuring informed consent and confirming the site of surgery the skin was prepped with Betadine. Incision was made with a sharp scissors and a large abscess encountered. The overlying skin was excised with an opening approximally 2 cm in diameter. The abscess extended into the subcutaneous tissue approximately 2-3 cm deep. The abscess was drained and the wounds packed with quarter-inch Nu Gauze. Dry sterile dressings were applied. The patient tolerated procedure well. Progress Note: A&P Assessment and plan (1) Diabetic foot ulcer: Status: Acute (2) Abscess: Status: Acute Plan 52-year-old male patient with history of diabetes mellitus and diabetic foot ulcers now with an abscess of the right foot as noted on MRI. The site of abscess was identified on examination and incision and drainage performed. A large purulence collection was drained and the wounds packed with Nu Gauze. The abscess extends approximately 2 cm into the plantar surface. Continue daily dressing changes. Time Spent With Patient Time: Total time managing care of this patient today ____ minutes. Quality Stroke Does the patient have a stroke diagnosis?: No VTE Prior VTE?: No VTE Risk Level:: Medical - moderate - high VTE Device Contraindication: Treatment Not Indicated VTE Drug Contraindication: N/A - Med Ordered
[2022-09-08] MEDS: 0.9 % Sodium Chloride Flush 3 ML SYRINGE IVFLUSH ×3 (10:18→19:42)
[2022-09-08 11:25] LABS: Glucose, Whole Blood 174 mg/dL (60-115)
--- NOTE | 2022-09-08 13:01 | PM.IDPN ---
Subjective Subjective Date of Service: 09/08/22 Critical Care Time (minutes): 15 Comment: he has still foot swollen and leaking Objective Data Labs 09/07/22 05:58 09/07/22 05:58 Labs: Laboratory Results - last 24 hr 09/07/22 09/07/22 09/07/22 15:42 18:14 20:34 POC Glucose 281 H 181 H Random Vancomycin 14.6 L 09/08/22 09/08/22 07:27 11:15 POC Glucose 154 H 174 H Random Vancomycin Microbiology Microbiology Results: Microbiology 09/07/22 09:42 Blood - Venous Blood Culture - Preliminary No growth after 24 hours. 09/07/22 09:09 Blood - Venous Blood Culture - Preliminary No growth after 24 hours. 09/03/22 18:15 Blood - Venous Blood Culture - Final Methicillin Res Staph Aureus Enterococcus faecalis 09/03/22 17:43 Blood - Venous Blood Culture - Final Methicillin Res Staph Aureus 09/04/22 Unknown Urine clean catch - Urine pineda top Urine Culture - Final Physical Exam Vital Signs: Vital Signs: Last Vital Signs Temp 99.1 F 09/08/22 07:30 Pulse 68 09/08/22 07:30 Resp 18 09/08/22 07:30 BP 128/65 09/08/22 07:30 Pulse Ox 95 09/08/22 07:30 O2 Del Method 09/08/22 07:30 O2 Flow Rate 2 09/08/22 03:37 BMI result Body Mass Index 40.4 Const: General: cooperative HEENT: Head: Yes normal to inspection Mouth: Normal oral and palatal mucosa present Chest: Chest palpation & inspection: normal inspection of the chest Resp: Effort & Inspection: normal respiratory effort Cardio: Rate: regular rate Rhythm: regular rhythm GI: Inspection: Yes normal to inspection Extrem: Other: dark 5th r toe foot leaking reddened malodorous Assessment and Plan Assessment and plan (1) Abscess: Problem details: serious diabetic foot ulcer OM 4,5 toes Status: Acute Assessment and Plan: Would give 4 -6 weeks depends on whether amputation or not of 4/5 toes likely not going to improve follow surgery (abscess drained) (2) Bacteremia: Status: Acute (3) Diabetic foot ulcer: Status: Acute Time Spent With Patient Time: Total time managing care of this patient today ____ minutes.
[2022-09-08 16:00] VITALS: BP 139/65; PULSE 90; RESP 18; TEMP 36.6; O2SAT 95
[2022-09-08 16:36] LABS: Glucose, Whole Blood 196 mg/dL (60-115)
[2022-09-08 19:27] VITALS: BP 133/60; PULSE 80; RESP 18; TEMP 37.2; O2SAT 92
[2022-09-08 20:13] LABS: Vancomycin Random 18.3 mcg/mL (15-20)
[2022-09-08 20:22] LABS: Creatinine Clr Calc Pharmacy 106.9; Estimated Glomerular Filt Rate > 60
--- NOTE | 2022-09-08 20:25 | HE.PHANOTE ---
Vancomycin Dosing Level increased to 18 from 14.6 after an increase in dose. SCr is unstable. Will decrease dose to vanco 1000 mg Q12H, expected AUC 457 with at trough of 14.5. Next level 09/09 @ 1840. Eileen Martinez, CarlotaD
[2022-09-08 20:57] LABS: Glucose, Whole Blood 143 mg/dL (60-115)
[2022-09-08] MEDS: vancomycin HCL 1,000 MG in 0.9 % Sodium Chloride 250 ML 270 MG IV (21:11)
[2022-09-09 03:05] VITALS: BP 120/57; PULSE 67; RESP 18; TEMP 36.2; O2SAT 95
[2022-09-09] MEDS: Gabapentin 100 MG CAPSULE PO ×3 (06:00→23:41)
[2022-09-09] MEDS: Levothyroxine Sodium 150 MCG TABLET PO (06:00)
[2022-09-09 07:14] LABS: Creatinine Clr Calc Pharmacy 114.6; Estimated Glomerular Filt Rate > 60
[2022-09-09 07:29] VITALS: BP 112/56; PULSE 69; RESP 18; TEMP 36.6; O2SAT 92
[2022-09-09] MEDS: cefEPime HCl 2 GM in 0.9 % Sodium Chloride 50 ML IV ×2 (07:45→19:05)
--- NOTE | 2022-09-09 07:47 | HO.PM.IMPN ---
Subjective Subjective Date of Service: 09/09/22 Interval History: f/u on diabetic foot ulcer, osteomylitis (OM) of the foot no pain, no new changes s/p ID and drainage yesterday by surgery Physical Exam Vital Signs: Vital Signs: Last Vital Signs Temp 97.8 F 09/09/22 07:29 Pulse 69 09/09/22 07:29 Resp 18 09/09/22 07:29 BP 112/56 L 09/09/22 07:29 Pulse Ox 92 09/09/22 07:29 O2 Del Method 09/09/22 07:29 O2 Flow Rate 2 09/09/22 03:05 BMI result Body Mass Index 40.4 Const: Other: General: AO X 3, no acute distress Resp: CTA bilateral CVS: S1,S2,RRR GI: +BS, NT, no distention Skin: See picture, dressing in place Neuro: motor grossly intact Psych: appropriate affect Objective Data Active Medications Acetaminophen (Acetaminophen 325 Mg Tablet) 650 mg PO Q6H PRN PRN Reason: Pain, Mild (Pain Scale 1-3) Ezetimibe (Ezetimibe 10 Mg Tablet) 10 mg PO DAILY [facility] Last Admin: 09/08/22 08:18 Dose: 10 mg Documented By: SRUTHI Escitalopram Oxalate (Escitalopram Oxalate 10 Mg Tablet) 10 mg PO DAILY [facility] Last Admin: 09/08/22 08:18 Dose: 10 mg Documented By: SRUTHI Fenofibrate (Fenofibrate 54 Mg Tablet) 54 mg PO DAILY [facility] Last Admin: 09/08/22 08:18 Dose: 54 mg Documented By: SRUTHI Gabapentin (Gabapentin 100 Mg Capsule) 100 mg PO Q8H [facility] Last Admin: 09/09/22 06:00 Dose: 100 mg Documented By: LILIA Glucose (Glucose Gel 15 Gm Gel..Gram.) 15 gm PO Q15M PRN; Protocol PRN Reason: per Hypoglycemia Standing Ord. Heparin Sodium (Porcine) (Heparin Sodium,Porcine 5,000 Unit/Ml Vial) 5,000 unit SUBCUT Q12H [facility] Last Admin: 09/08/22 21:09 Dose: 5,000 unit Documented By: LILIA Cefepime HCl 2 gm/ Sodium (Chloride) 50 mls @ 100 mls/hr IV Q12H [facility] Last Infusion: 09/08/22 20:52 Dose: 0 mls/hr Documented By: LILIA Dextrose (D10) 250 mls @ 750 mls/hr IV Q15M PRN; Protocol PRN Reason: per Hypoglycemia Standing Ord. Vancomycin HCl 1,000 mg/ (Sodium Chloride) 270 mls @ 270 mls/hr IV Q12H [facility] Last Infusion: 09/08/22 22:38 Dose: 0 mls/hr Documented By: LILIA Insulin Glargine (Insulin Glargine,Hum.Rec.Anlog 100 Unit/Ml 10 Ml Vial) 21 unit SUBCUT DAILY [facility] Last Admin: 09/08/22 08:17 Dose: 21 unit Documented By: SRUTHI Insulin Human Lispro (Insulin Lispro 100 Unit/Ml 3 Ml Vial) 0 unit SUBCUT QIDACHS [facility]; Protocol Last Admin: 09/08/22 21:24 Dose: Not Given Documented By: LILIA Non-Admin Reason: No Insulin Coverage Levothyroxine Sodium (Levothyroxine Sodium 150 Mcg Tablet) 150 mcg PO DAILY@0600 [facility] Last Admin: 09/09/22 06:00 Dose: 150 mcg Documented By: LILIA Non-Formulary Medication (Simvastatin) 40 mg PO DAILY [facility] Ondansetron HCl (Ondansetron Hcl 4 Mg/2 Ml Vial) 4 mg IVPUSH Q8H PRN PRN Reason: Nausea and Vomiting Pharmacy Consult (Consult Rx Perform Med Rec) 1 each MISCELLANE ONCE PRN PRN Reason: Consult order Pharmacy Consult (Consult Rx Vancomycin Dosing) 1 each MISCELLANE DAILY PRN PRN Reason: Consult order Pharmacy Consult (Consult Rx Vancomycin Dosing) 1 each MISCELLANE DAILY PRN PRN Reason: Consult order Sodium Chloride (0.9 % Sodium Chloride Flush 3 Ml Syringe) 3 ml IVFLUSH QSHIFT [facility] Last Admin: 09/08/22 19:42 Dose: 3 ml Documented By: LILIA Vitamin D (Cholecalciferol (Vitamin D3) 25 Mcg Tablet) 50 mcg PO DAILY [facility] Last Admin: 09/08/22 08:18 Dose: 50 mcg Documented By: SRUTHI Labs 09/07/22 05:58 09/09/22 05:54 Labs: Laboratory Results - last 24 hr 09/08/22 09/08/22 09/08/22 04:19 07:27 11:15 Estim Creat Clear Calc Cancelled Estimated GFR Cancelled POC Glucose 154 H 174 H Random Vancomycin 09/08/22 09/08/22 09/08/22 16:29 19:33 19:33 Estim Creat Clear Calc 106.9 Estimated GFR > 60 POC Glucose 196 H Random Vancomycin 18.3 09/08/22 09/09/22 20:49 05:54 Estim Creat Clear Calc 114.6 Estimated GFR > 60 POC Glucose 143 H Random Vancomycin Microbiology Microbiology Results: Microbiology 09/07/22 09:42 Blood Culture - Preliminary Blood - Venous No growth after 24 hours. 09/07/22 09:09 Blood Culture - Preliminary Blood - Venous No growth after 24 hours. Assessment and Plan (1) JJ (acute kidney injury): Status: Acute (2) Diabetic foot ulcer: Status: Acute (3) Osteomyelitis: Status: Acute Plan 52-year-old male with history of insulin-dependent type 2 diabetes, hypothyroidism, hyperlipidemia, hypertension, congestive heart failure, proteinuria, and nonhealing diabetic left foot ulcer who is morbidly obese admitted for nonhealing diabetic foot ulcer of the right foot with cellulitis and question of osteomyelitis. #Sepsis, WBC is still high #gram positive cocci bactermia (MRSA and E. Feacalis) #Osteomylitis of R 4th and 5th metatarsophalangeal joints on MRI # nonhealing right diabetic foot ulcer with cellulitis and abscless s/p I&D by dr. Dempsey on 09/08 -recently completed 6 weeks IV ertapenem on 08/10 with recent discharge from [facility] on 06/29.? MRI at that time negative for osteomyelitis, but extended antibiotics recommended by ID -x-ray of right foot negative for any bony erosions or periosteal thickening but showing soft tissue swelling -ESR 112, CRP 25 -continue IV vancomycin and renally adjusted cefepime -has known PAD but no recent arterial imaging.? Arterial Doppler normal flow -ID recommends 4 to 6 weeks of IV Abx and ampuation of 4, 5 th digits, will need a picc line -follow CBC and blood cultures -repeat blood cultures, negative # acute kidney injury-likely related to hypovolemia, resolved with IVF # acute hyponatremia-likely related to hypovolemia and thiazide diuretic use -urine studies ordered Hold thiazide diuretics, recheck labs -consider Nephrology consult if no improvement # insulin-dependent type 2 diabetes with hyperglycemia -hemoglobin A1c pending -continue basal insulin -Humalog on sliding scale -POC glucose -diabetic diet # hypertension-continue home meds # hypOthyroidism -continue levothyroxine # hyperlipidemia -continue Zetia and statin # Congestive heart failure, ejection fraction unspecified -euvolemic appearing, no acute exacerbation DVT prophylaxis-heparin Full code need for ipatient: IV Abx for OM, awaiting culture and longter IV Abx plans Time Spent With Patient Time: Total time managing care of this patient today ____ minutes. Quality Stroke Does the patient have a stroke diagnosis?: No VTE Prior VTE?: No VTE Risk Level:: Medical - moderate - high VTE Device Contraindication: Treatment Not Indicated VTE Drug Contraindication: N/A - Med Ordered
[2022-09-09] MEDS: 0.9 % Sodium Chloride Flush 3 ML SYRINGE IVFLUSH ×3 (07:50→23:42)
[2022-09-09 07:51] LABS: Glucose, Whole Blood 133 mg/dL (60-115)
[2022-09-09 08:08] LABS: Anion Gap 15 (12-20)
[2022-09-09 08:10] LABS: Blood Urea Nitrogen 14 mg/dL (9-16); Calcium 7.8 mg/dL (8.4-10.2); Carbon Dioxide 18 mmol/L (22-29); Chloride 103 mmol/L (96-108); Glucose Random 113 mg/dL (60-115); Potassium 3.6 mmol/L (3.3-5.1); Sodium 132 mmol/L (135-145)
--- NOTE | 2022-09-09 08:52 | PM.PNGS ---
Subjective Subjective Date of Service: 09/09/22 Interval history: No new complaints Physical Exam Vital Signs: Vital Signs: Last Vital Signs Temp 97.8 F 09/09/22 07:29 Pulse 69 09/09/22 07:29 Resp 18 09/09/22 07:29 BP 112/56 L 09/09/22 07:29 Pulse Ox 92 09/09/22 07:29 O2 Del Method 09/09/22 07:29 O2 Flow Rate 2 09/09/22 03:05 BMI result Body Mass Index 40.4 Const: General: comfortable and no acute distress Resp: Effort & Inspection: normal respiratory effort Extrem: Other: Dressings changed to the left foot; wound at the plantar surface and 5th toe repacked with 1/4 inch nugauze. DSD applied. Increased necrotic changes noted at the 5th toe. Will continue to monitor wounds. Patient will almost certainly need transmetatarsal amputation but if infection does not improve may actually need more extensive amputation. Objective Data Active Medications Acetaminophen (Acetaminophen 325 Mg Tablet) 650 mg PO Q6H PRN PRN Reason: Pain, Mild (Pain Scale 1-3) Ezetimibe (Ezetimibe 10 Mg Tablet) 10 mg PO DAILY COUNT [facility]CLUDES [facility] Last Admin: 09/08/22 08:18 Dose: 10 mg Documented By: SRUTHI Escitalopram Oxalate (Escitalopram Oxalate 10 Mg Tablet) 10 mg PO DAILY COUNT [facility]CLUD[facility] Last Admin: 09/08/22 08:18 Dose: 10 mg Documented By: SRUTHI Fenofibrate (Fenofibrate 54 Mg Tablet) 54 mg PO DAILY COUNT [facility]CLUD[facility] Last Admin: 09/08/22 08:18 Dose: 54 mg Documented By: SRUTHI Gabapentin (Gabapentin 100 Mg Capsule) 100 mg PO Q8H COUNT [facility]CLUD[facility] Last Admin: 09/09/22 06:00 Dose: 100 mg Documented By: LILIA Glucose (Glucose Gel 15 Gm Gel..Gram.) 15 gm PO Q15M PRN; Protocol PRN Reason: per Hypoglycemia Standing Ord. Heparin Sodium (Porcine) (Heparin Sodium,Porcine 5,000 Unit/Ml Vial) 5,000 unit SUBCUT Q12H COUNT [facility]CLUD[facility] Last Admin: 09/08/22 21:09 Dose: 5,000 unit Documented By: LILIA Cefepime HCl 2 gm/ Sodium (Chloride) 50 mls @ 100 mls/hr IV Q12H [facility]CLUD[facility] Last Infusion: 09/09/22 08:21 Dose: 0 mls/hr Documented By: SRUTHI Dextrose (D10) 250 mls @ 750 mls/hr IV Q15M PRN; Protocol PRN Reason: per Hypoglycemia Standing Ord. Vancomycin HCl 1,000 mg/ (Sodium Chloride) 270 mls @ 270 mls/hr IV Q12H COUNT [facility]CLUDES [facility] Last Infusion: 09/08/22 22:38 Dose: 0 mls/hr Documented By: LILIA Insulin Glargine (Insulin Glargine,Hum.Rec.Anlog 100 Unit/Ml 10 Ml Vial) 21 unit SUBCUT DAILY [facility] Last Admin: 09/08/22 08:17 Dose: 21 unit Documented By: SRUTHI Insulin Human Lispro (Insulin Lispro 100 Unit/Ml 3 Ml Vial) 0 unit SUBCUT QIDACHS COUNT INCLUDES THE [facility]; Protocol Last Admin: 09/09/22 07:58 Dose: Not Given Documented By: SRUTHI Non-Admin Reason: No Insulin Coverage Levothyroxine Sodium (Levothyroxine Sodium 150 Mcg Tablet) 150 mcg PO DAILY@0600 [facility] Last Admin: 09/09/22 06:00 Dose: 150 mcg Documented By: LILIA Non-Formulary Medication (Simvastatin) 40 mg PO DAILY COUNT [facility]CLUD[facility] Ondansetron HCl (Ondansetron Hcl 4 Mg/2 Ml Vial) 4 mg IVPUSH Q8H PRN PRN Reason: Nausea and Vomiting Pharmacy Consult (Consult Rx Perform Med Rec) 1 each MISCELLANE ONCE PRN PRN Reason: Consult order Pharmacy Consult (Consult Rx Vancomycin Dosing) 1 each MISCELLANE DAILY PRN PRN Reason: Consult order Pharmacy Consult (Consult Rx Vancomycin Dosing) 1 each MISCELLANE DAILY PRN PRN Reason: Consult order Sodium Chloride (0.9 % Sodium Chloride Flush 3 Ml Syringe) 3 ml IVFLUSH QSHIFT COUNT [facility]CLUDES [facility] Last Admin: 09/09/22 07:50 Dose: 3 ml Documented By: SRUTHI Vitamin D (Cholecalciferol (Vitamin D3) 25 Mcg Tablet) 50 mcg PO DAILY COUNT [facility]CLUDES [facility] Last Admin: 09/08/22 08:18 Dose: 50 mcg Documented By: SRUTHI Labs 09/07/22 05:58 09/09/22 05:54 Labs: Laboratory Results - last 24 hr 09/08/22 09/08/22 09/08/22 04:19 11:15 16:29 Anion Gap Estim Creat Clear Calc Cancelled Estimated GFR Cancelled POC Glucose 174 H 196 H Random Glucose Calcium Random Vancomycin 09/08/22 09/08/22 09/08/22 19:33 19:33 20:49 Anion Gap Estim Creat Clear Calc 106.9 Estimated GFR > 60 POC Glucose 143 H Random Glucose Calcium Random Vancomycin 18.3 09/09/22 09/09/22 05:54 07:27 Anion Gap 15 Estim Creat Clear Calc 114.6 Estimated GFR > 60 POC Glucose 133 H Random Glucose 113 Calcium 7.8 L Random Vancomycin Microbiology Microbiology Results: Microbiology 09/07/22 09:42 Blood Culture - Preliminary Blood - Venous No growth after 24 hours. 09/07/22 09:09 Blood Culture - Preliminary Blood - Venous No growth after 24 hours. Procedures Date of Service Date of Service: 09/09/22 Progress Note: A&P Time Spent With Patient Time: Total time managing care of this patient today ____ minutes. Quality Stroke Does the patient have a stroke diagnosis?: No VTE Prior VTE?: No VTE Risk Level:: Medical - moderate - high VTE Device Contraindication: Treatment Not Indicated VTE Drug Contraindication: N/A - Med Ordered
[2022-09-09] MEDS: vancomycin HCL 1,000 MG in 0.9 % Sodium Chloride 250 ML 270 MG IV ×2 (09:56→23:42)
[2022-09-09] MEDS: Heparin Sodium,Porcine 5,000 UNIT/ML VIAL 5000 UNIT SUBCUT ×2 (10:00→23:41)
[2022-09-09] MEDS: Ezetimibe 10 MG TABLET PO (10:00)
[2022-09-09] MEDS: Insulin Glargine,Hum.rec.anlog 100 UNIT/ML 10 ML VIAL 21 UNIT SUBCUT (10:00)
[2022-09-09] MEDS: Fenofibrate 54 MG TABLET PO (10:00)
[2022-09-09] MEDS: Cholecalciferol (Vitamin D3) 25 MCG TABLET 50 MCG PO (10:00)
[2022-09-09] MEDS: Escitalopram Oxalate 10 MG TABLET PO (10:00)
[2022-09-09] MEDS: Insulin Lispro 100 UNIT/ML 3 ML VIAL SUBCUT ×2 (11:56→23:41)
[2022-09-09 12:06] LABS: Glucose, Whole Blood 188 mg/dL (60-115)
[2022-09-09 15:28] VITALS: BP 151/72; PULSE 80; RESP 18; TEMP 37.1; O2SAT 93
[2022-09-09 16:28] LABS: Glucose, Whole Blood 139 mg/dL (60-115)
[2022-09-09 19:29] LABS: Vancomycin Random 16.3 mcg/mL (15-20)
--- NOTE | 2022-09-09 19:34 | HE.PHANOTE ---
Vancomycin Dosing Level is therapeutic at 16.3. Continue current regimen. Next level scheduled for 09/11 @ 0700. Carlota ReisD
[2022-09-09 20:00] VITALS: BP 142/70; PULSE 86; RESP 18; TEMP 37; O2SAT 94
[2022-09-09 20:31] LABS: Glucose, Whole Blood 162 mg/dL (60-115)
[2022-09-10 03:08] VITALS: BP 121/58; PULSE 68; RESP 18; TEMP 35.9; O2SAT 94
[2022-09-10] MEDS: Levothyroxine Sodium 150 MCG TABLET PO (05:38)
[2022-09-10] MEDS: Gabapentin 100 MG CAPSULE PO ×3 (05:38→21:53)
[2022-09-10 06:22] LABS: Appearance Urine Cloudy; Color Urine Yellow; Glucose Urine UA Negative (Negative); Leukocyte Esterase Urine Negative (Negative); Nitrite Urine Negative (Negative); Specific Gravity - Urine 1.015 (1.005-1.025); UMIC TRIGGER UACC YES; Urine Blood Trace (Negative); Urine Ketones Trace mg/dL (Negative); Urine Protein 30 (1+) mg/dL (Neg-Trace)
[2022-09-10 06:27] LABS: Bacteria Urine None Seen (None Seen); Hyaline Casts Urine 0-2 /LPF (0-2); RBC Urine 0-2 /HPF (0-2); WBC Urine 0-5 /HPF (0-5)
--- NOTE | 2022-09-10 06:44 | PC.NURSE ---
During overnight shift, pt had no urine output, bladder scan for 919ml. MD Chapa notifed. Straight cath and urine collection was ordered. Straight cath pt for 950ml. After straight cath, bladder scan pt again and was 0ml. Will continue to monitor pt's urine output.
[2022-09-10 07:25] VITALS: BP 132/64; PULSE 69; RESP 16; TEMP 36.1; O2SAT 94
[2022-09-10 07:27] LABS: Glucose, Whole Blood 124 mg/dL (60-115)
[2022-09-10] MEDS: 0.9 % Sodium Chloride Flush 3 ML SYRINGE IVFLUSH (07:35)
[2022-09-10] MEDS: cefEPime HCl 2 GM in 0.9 % Sodium Chloride 50 ML IV ×2 (07:35→20:19)
[2022-09-10 08:03] LABS: Creatinine Clr Calc Pharmacy 133.9; Estimated Glomerular Filt Rate > 60
[2022-09-10] MEDS: vancomycin HCL 1,000 MG in 0.9 % Sodium Chloride 250 ML 270 MG IV ×2 (08:47→21:53)
[2022-09-10] MEDS: Insulin Glargine,Hum.rec.anlog 100 UNIT/ML 10 ML VIAL 21 UNIT SUBCUT (08:48)
[2022-09-10] MEDS: Escitalopram Oxalate 10 MG TABLET PO (08:48)
[2022-09-10] MEDS: Cholecalciferol (Vitamin D3) 25 MCG TABLET 50 MCG PO (08:48)
[2022-09-10] MEDS: Fenofibrate 54 MG TABLET PO (08:48)
[2022-09-10] MEDS: Ezetimibe 10 MG TABLET PO (08:48)
[2022-09-10] MEDS: Heparin Sodium,Porcine 5,000 UNIT/ML VIAL 5000 UNIT SUBCUT ×2 (08:48→21:53)
[2022-09-10 09:38] LABS: Anion Gap 13 (12-20)
[2022-09-10 09:41] LABS: Blood Urea Nitrogen 13 mg/dL (9-16); Calcium 7.6 mg/dL (8.4-10.2); Carbon Dioxide 18 mmol/L (22-29); Chloride 104 mmol/L (96-108); Glucose Random 114 mg/dL (60-115); Potassium 3.4 mmol/L (3.3-5.1); Sodium 132 mmol/L (135-145)
--- NOTE | 2022-09-10 10:49 | HO.PM.IMPN ---
Subjective Subjective Date of Service: 09/11/22 Interval History: f/u on diabetic foot ulcer, osteomylitis (OM) of the foot no pain, no new changes s/p ID and drainage 09/08 by surgery Physical Exam Vital Signs: Vital Signs: Last Vital Signs Temp 97 F 09/10/22 07:25 Pulse 69 09/10/22 07:25 Resp 16 09/10/22 07:25 BP 132/64 09/10/22 07:25 Pulse Ox 94 09/10/22 07:25 O2 Del Method 09/10/22 07:25 O2 Flow Rate 1.5 09/10/22 07:25 BMI result Body Mass Index 40.4 Const: Other: General: AO X 3, no acute distress Resp: CTA bilateral CVS: S1,S2,RRR GI: +BS, NT, no distention Skin: See picture, dressing in place Neuro: motor grossly intact Psych: appropriate affect Objective Data Active Medications Acetaminophen (Acetaminophen 325 Mg Tablet) 650 mg PO Q6H PRN PRN Reason: Pain, Mild (Pain Scale 1-3) Ezetimibe (Ezetimibe 10 Mg Tablet) 10 mg PO DAILY [facility] Last Admin: 09/10/22 08:48 Dose: 10 mg Documented By: SRUTHI Escitalopram Oxalate (Escitalopram Oxalate 10 Mg Tablet) 10 mg PO DAILY [facility] Last Admin: 09/10/22 08:48 Dose: 10 mg Documented By: SRUTHI Fenofibrate (Fenofibrate 54 Mg Tablet) 54 mg PO DAILY [facility] Last Admin: 09/10/22 08:48 Dose: 54 mg Documented By: SRUTHI Gabapentin (Gabapentin 100 Mg Capsule) 100 mg PO Q8H [facility] Last Admin: 09/10/22 05:38 Dose: 100 mg Documented By: LILIA Glucose (Glucose Gel 15 Gm Gel..Gram.) 15 gm PO Q15M PRN; Protocol PRN Reason: per Hypoglycemia Standing Ord. Heparin Sodium (Porcine) (Heparin Sodium,Porcine 5,000 Unit/Ml Vial) 5,000 unit SUBCUT Q12H [facility] Last Admin: 09/10/22 08:48 Dose: 5,000 unit Documented By: SRUTHI Cefepime HCl 2 gm/ Sodium (Chloride) 50 mls @ 100 mls/hr IV Q12H [facility] Last Infusion: 09/10/22 08:22 Dose: 0 mls/hr Documented By: SRUTHI Dextrose (D10) 250 mls @ 750 mls/hr IV Q15M PRN; Protocol PRN Reason: per Hypoglycemia Standing Ord. Vancomycin HCl 1,000 mg/ (Sodium Chloride) 270 mls @ 270 mls/hr IV Q12H [facility] Last Infusion: 09/10/22 10:06 Dose: 0 mls/hr Documented By: SRUTHI Insulin Glargine (Insulin Glargine,Hum.Rec.Anlog 100 Unit/Ml 10 Ml Vial) 21 unit SUBCUT DAILY [facility] Last Admin: 09/10/22 08:48 Dose: 21 unit Documented By: SRUTHI Insulin Human Lispro (Insulin Lispro 100 Unit/Ml 3 Ml Vial) 0 unit SUBCUT QIDACHS [facility]; Protocol Last Admin: 09/10/22 07:29 Dose: Not Given Documented By: SRUTHI Non-Admin Reason: No Insulin Coverage Levothyroxine Sodium (Levothyroxine Sodium 150 Mcg Tablet) 150 mcg PO DAILY@0600 [facility] Last Admin: 09/10/22 05:38 Dose: 150 mcg Documented By: LILIA Non-Formulary Medication (Simvastatin) 40 mg PO DAILY [facility] Ondansetron HCl (Ondansetron Hcl 4 Mg/2 Ml Vial) 4 mg IVPUSH Q8H PRN PRN Reason: Nausea and Vomiting Pharmacy Consult (Consult Rx Perform Med Rec) 1 each MISCELLANE ONCE PRN PRN Reason: Consult order Pharmacy Consult (Consult Rx Vancomycin Dosing) 1 each MISCELLANE DAILY PRN PRN Reason: Consult order Pharmacy Consult (Consult Rx Vancomycin Dosing) 1 each MISCELLANE DAILY PRN PRN Reason: Consult order Sodium Chloride (0.9 % Sodium Chloride Flush 3 Ml Syringe) 3 ml IVFLUSH QSHIFT [facility] Last Admin: 09/10/22 07:35 Dose: 3 ml Documented By: SRUTHI Vitamin D (Cholecalciferol (Vitamin D3) 25 Mcg Tablet) 50 mcg PO DAILY [facility] Last Admin: 09/10/22 08:48 Dose: 50 mcg Documented By: SRUTHI Labs 09/07/22 05:58 09/10/22 06:56 Labs: Laboratory Results - last 24 hr 09/09/22 09/09/22 09/09/22 11:50 16:24 18:58 Anion Gap Estim Creat Clear Calc Estimated GFR POC Glucose 188 H 139 H Random Glucose Calcium Urine Color Urine Appearance Urine pH Ur Specific [place] Urine Protein Urine Glucose (UA) Urine Ketones Urine Blood Urine Nitrite Ur Leukocyte Esterase Urine RBC Urine WBC Ur Squamous Epith Cells Urine Bacteria Hyaline Casts Random Vancomycin 16.3 09/09/22 09/10/22 09/10/22 20:23 06:00 06:56 Anion Gap 13 Estim Creat Clear Calc 133.9 Estimated GFR > 60 POC Glucose 162 H Random Glucose 114 Calcium 7.6 L Urine Color Yellow Urine Appearance Cloudy Urine pH 6.0 Ur Specific [place] 1.015 Urine Protein 30 (1+) H Urine Glucose (UA) Negative Urine Ketones Trace Urine Blood Trace H Urine Nitrite Negative Ur Leukocyte Esterase Negative Urine RBC 0-2 Urine WBC 0-5 Ur Squamous Epith Cells 3-5 Urine Bacteria None Seen Hyaline Casts 0-2 Random Vancomycin 09/10/22 07:22 Anion Gap Estim Creat Clear Calc Estimated GFR POC Glucose 124 H Random Glucose Calcium Urine Color Urine Appearance Urine pH Ur Specific [place] Urine Protein Urine Glucose (UA) Urine Ketones Urine Blood Urine Nitrite Ur Leukocyte Esterase Urine RBC Urine WBC Ur Squamous Epith Cells Urine Bacteria Hyaline Casts Random Vancomycin Microbiology Microbiology Results: Microbiology 09/07/22 09:42 Blood Culture - Preliminary Blood - Venous No growth after 48 hours. 09/07/22 09:09 Blood Culture - Preliminary Blood - Venous No growth after 48 hours. Assessment and Plan (1) JJ (acute kidney injury): Status: Acute (2) Diabetic foot ulcer: Status: Acute (3) Osteomyelitis: Status: Acute Plan 52-year-old male with history of insulin-dependent type 2 diabetes, hypothyroidism, hyperlipidemia, hypertension, congestive heart failure, proteinuria, and nonhealing diabetic left foot ulcer who is morbidly obese admitted for nonhealing diabetic foot ulcer of the right foot with cellulitis and question of osteomyelitis. #Sepsis, WBC is still high #gram positive cocci bactermia (MRSA and E. Feacalis) #Osteomylitis of R 4th and 5th metatarsophalangeal joints on MRI # nonhealing right diabetic foot ulcer with cellulitis and abscless s/p I&D by dr. Dempsey on 09/08 -recently completed 6 weeks IV ertapenem on 08/10 with recent discharge from [facility] on 06/29.? MRI at that time negative for osteomyelitis, but extended antibiotics recommended by ID -x-ray of right foot negative for any bony erosions or periosteal thickening but showing soft tissue swelling -ESR 112, CRP 25 -continue IV vancomycin and renally adjusted cefepime -has known PAD but no recent arterial imaging.? Arterial Doppler normal flow -ID recommends 4 to 6 weeks of IV Abx and ampuation of 4, 5 th digits, will need a picc line -follow CBC and blood cultures -repeat blood cultures, negative, request PICC line 09/10 # acute kidney injury-likely related to hypovolemia, resolved with IVF # acute hyponatremia-likely related to hypovolemia and thiazide diuretic use -urine studies ordered Hold thiazide diuretics, recheck labs -consider Nephrology consult if no improvement # insulin-dependent type 2 diabetes with hyperglycemia -hemoglobin A1c pending -continue basal insulin -Humalog on sliding scale -POC glucose -diabetic diet # hypertension-continue home meds # hypOthyroidism -continue levothyroxine # hyperlipidemia -continue Zetia and statin # Congestive heart failure, ejection fraction unspecified -euvolemic appearing, no acute exacerbation DVT prophylaxis-heparin Full code need for ipatient: IV Abx for OM, awaiting culture and longter IV Abx plans Time Spent With Patient Time: Total time managing care of this patient today ____ minutes. Quality Stroke Does the patient have a stroke diagnosis?: No VTE Prior VTE?: No VTE Risk Level:: Medical - moderate - high VTE Device Contraindication: Treatment Not Indicated VTE Drug Contraindication: N/A - Med Ordered
[2022-09-10 11:08] LABS: Glucose, Whole Blood 185 mg/dL (60-115)
[2022-09-10 11:43] LABS: CDiff Gene PCR NEGATIVE (Negative)
[2022-09-10] MEDS: Insulin Lispro 100 UNIT/ML 3 ML VIAL SUBCUT ×2 (11:50→21:53)
--- NOTE | 2022-09-10 12:59 | MHC.CM.PN ---
Per MD rounds patient will require LT IV ABX. A PICC line is ordered for insertion today. DP return to [facility] via BLS. A clinical update has been sent to the facility.
[2022-09-10 15:33] VITALS: BP 164/75; PULSE 73; RESP 16; TEMP 36.6; O2SAT 95
--- NOTE | 2022-09-10 18:41 | P.PICC_ITS ---
PICC Line Insertion NPICC Diagnosis: right foot wound Indication: fci antibiotics needed Pertinent Labs: reviewed Technique: Following informed consent including risks, benefits and alternatives and using sterile technique including cap and mask, sterile gown, glove and drape, the right arm was prepped and draped in the usual sterile fashion of full barrier technique with G. Following completion of [place] Protocol the skin and soft tissues were anesthetized with 1% Lidocaine plain. Using ultrasound guidance, right brachial vein access was obtained twice by Amrita Silveira RN, but unable to pass guidewire. Right brachial vein access was obtained on second attempt by Lucas Sharp RN. Over an 0.018 wire through peel-away sheath, a 4FR PASV single lumen PICC line was positioned. Catheter length is 43 CM internal length, at the 0 CM corey--external length, for a total trimmed length of 43 CM. The procedure was performed in S272. Tip verification was performed by Jose Barajas with Sherlock 3CG. Tip located in SVC. Ultrasound was used to document vein patency and for needle entry. A formal ultrasound picture and cardiac rhythm strip was recorded. [employer] Member has released the line for use and it is currently dressed with a StatLock, Tegaderm, and CHG disc. Verification has been performed for blood return and line patency. (Permission to place PICC with 48 hour negative blood cultures obtained from Dr Fraser and Monica Pastrana) Arm Circumference: [33 CM] Equipment: Send Word Now PowerPICC SOLO Catheter Type: 4FR single lumen PASV PICC Lot #: [id number]
[2022-09-10 20:00] VITALS: BP 170/70; PULSE 87; RESP 18; TEMP 37.8; O2SAT 92
[2022-09-10 21:26] LABS: Glucose, Whole Blood 214 mg/dL (60-115)
[2022-09-11 03:41] VITALS: BP 134/65; PULSE 74; RESP 19; TEMP 38.2; O2SAT 92
[2022-09-11 07:25] VITALS: BP 126/57; PULSE 71; RESP 19; TEMP 36.1; O2SAT 93
[2022-09-11 07:29] LABS: Glucose, Whole Blood 155 mg/dL (60-115)
[2022-09-11 07:31] LABS: Creatinine Clr Calc Pharmacy 126.3; Estimated Glomerular Filt Rate > 60
[2022-09-11] MEDS: cefEPime HCl 2 GM in 0.9 % Sodium Chloride 50 ML IV (07:38)
[2022-09-11] MEDS: 0.9 % Sodium Chloride Flush 3 ML SYRINGE IVFLUSH ×2 (07:39→16:24)
[2022-09-11] MEDS: vancomycin HCL 1,000 MG in 0.9 % Sodium Chloride 250 ML 270 MG IV ×2 (07:42→21:48)
[2022-09-11] MEDS: Insulin Lispro 100 UNIT/ML 3 ML VIAL SUBCUT ×3 (07:44→21:48)
[2022-09-11] MEDS: Insulin Glargine,Hum.rec.anlog 100 UNIT/ML 10 ML VIAL 21 UNIT SUBCUT (07:44)
[2022-09-11] MEDS: Cholecalciferol (Vitamin D3) 25 MCG TABLET 50 MCG PO (07:45)
[2022-09-11] MEDS: Escitalopram Oxalate 10 MG TABLET PO (07:45)
[2022-09-11] MEDS: Ezetimibe 10 MG TABLET PO (07:46)
[2022-09-11] MEDS: Heparin Sodium,Porcine 5,000 UNIT/ML VIAL 5000 UNIT SUBCUT (07:46)
[2022-09-11] MEDS: Fenofibrate 54 MG TABLET PO (07:47)
[2022-09-11 07:53] LABS: Vancomycin Trough 15.8 mcg/mL (10.0-20.0)
--- NOTE | 2022-09-11 07:53 | PM.PNGS ---
Subjective Subjective Date of Service: 09/11/22 Interval history: Patient denies foot pain Physical Exam Vital Signs: Vital Signs: Last Vital Signs Temp 97 F 09/11/22 07:25 Pulse 71 09/11/22 07:25 Resp 19 09/11/22 07:25 BP 126/57 L 09/11/22 07:25 Pulse Ox 93 09/11/22 07:25 O2 Del Method 09/11/22 07:25 O2 Flow Rate 2 09/10/22 15:33 BMI result Body Mass Index 40.4 Const: General: comfortable and no acute distress Nutritional Appearance: well nourished Resp: Effort & Inspection: normal respiratory effort Skin: Other: warm and dry, except for below Extrem: Other: Dressings changed to the right foot. Wounds repacked with 1/4 inch Nugauze. Decreased purulent discharge noted today; mild erythema remains, maybe slightly better. Gangrene of 5th toe stable. Objective Data Active Medications Acetaminophen (Acetaminophen 325 Mg Tablet) 650 mg PO Q6H PRN PRN Reason: Pain, Mild (Pain Scale 1-3) Ezetimibe (Ezetimibe 10 Mg Tablet) 10 mg PO DAILY COUNT INCLUDES THE [facility] Last Admin: 09/11/22 07:46 Dose: 10 mg Documented By: MERRY Escitalopram Oxalate (Escitalopram Oxalate 10 Mg Tablet) 10 mg PO DAILY COUNT INCLUDES THE [facility] Last Admin: 09/11/22 07:45 Dose: 10 mg Documented By: MERRY Fenofibrate (Fenofibrate 54 Mg Tablet) 54 mg PO DAILY COUNT INCLUDES THE [facility] Last Admin: 09/11/22 07:47 Dose: 54 mg Documented By: MERRY Gabapentin (Gabapentin 100 Mg Capsule) 100 mg PO Q8H COUNT INCLUDES THE [facility] Last Admin: 09/11/22 05:34 Dose: Not Given Documented By: JOSE-JOZEB Non-Admin Reason: lethargy Glucose (Glucose Gel 15 Gm Gel..Gram.) 15 gm PO Q15M PRN; Protocol PRN Reason: per Hypoglycemia Standing Ord. Heparin Sodium (Porcine) (Heparin Sodium,Porcine 5,000 Unit/Ml Vial) 5,000 unit SUBCUT Q12H COUNT INCLUDES THE [facility] Last Admin: 09/11/22 07:46 Dose: 5,000 unit Documented By: MERRY Cefepime HCl 2 gm/ Sodium (Chloride) 50 mls @ 100 mls/hr IV Q12H COUNT INCLUDES THE [facility] Last Admin: 09/11/22 07:38 Dose: 100 mls/hr Documented By: MERRY Dextrose (D10) 250 mls @ 750 mls/hr IV Q15M PRN; Protocol PRN Reason: per Hypoglycemia Standing Ord. Vancomycin HCl 1,000 mg/ (Sodium Chloride) 270 mls @ 270 mls/hr IV Q12H COUNT INCLUDES THE [facility] Last Admin: 09/11/22 07:42 Dose: 270 mls/hr Documented By: MERRY Insulin Glargine (Insulin Glargine,Hum.Rec.Anlog 100 Unit/Ml 10 Ml Vial) 21 unit SUBCUT DAILY COUNT INCLUDES THE [facility] Last Admin: 09/11/22 07:44 Dose: 21 unit Documented By: MERRY Insulin Human Lispro (Insulin Lispro 100 Unit/Ml 3 Ml Vial) 0 unit SUBCUT QIDACHS COUNT INCLUDES THE [facility]; Protocol Last Admin: 09/11/22 07:44 Dose: 2 unit Documented By: MERRY Levothyroxine Sodium (Levothyroxine Sodium 150 Mcg Tablet) 150 mcg PO DAILY@0600 COUNT INCLUDES THE [facility] Last Admin: 09/11/22 05:34 Dose: Not Given Documented By: OC Non-Admin Reason: lethargy Loperamide HCl (Loperamide Hcl Oral Liquid 2 Mg/15 Ml Liquid) 2 mg PO Q6H PRN PRN Reason: Diarrhea Non-Formulary Medication (Simvastatin) 40 mg PO DAILY COUNT INCLUDES THE [facility] Ondansetron HCl (Ondansetron Hcl 4 Mg/2 Ml Vial) 4 mg IVPUSH Q8H PRN PRN Reason: Nausea and Vomiting Pharmacy Consult (Consult Rx Perform Med Rec) 1 each MISCELLANE ONCE PRN PRN Reason: Consult order Pharmacy Consult (Consult Rx Vancomycin Dosing) 1 each MISCELLANE DAILY PRN PRN Reason: Consult order Pharmacy Consult (Consult Rx Vancomycin Dosing) 1 each MISCELLANE DAILY PRN PRN Reason: Consult order Sodium Chloride (0.9 % Sodium Chloride Flush 3 Ml Syringe) 3 ml IVFLUSH QSHIFT COUNT INCLUDES THE [facility] Last Admin: 09/11/22 07:39 Dose: 3 ml Documented By: MERRY Vitamin D (Cholecalciferol (Vitamin D3) 25 Mcg Tablet) 50 mcg PO DAILY COUNT INCLUDES [facility] Last Admin: 03/21/23 07:45 Dose: 50 mcg Documented By: MERRY Labs 09/07/22 05:58 09/11/22 07:02 Labs: Laboratory Results - last 24 hr 09/10/22 09/10/22 09/10/22 06:56 10:15 10:59 Anion Gap 13 Estim Creat Clear Calc 133.9 Estimated GFR > 60 POC Glucose 185 H Random Glucose 114 Calcium 7.6 L C. difficile Tox B Gene NEGATIVE 09/10/22 09/11/22 09/11/22 21:13 07:02 07:24 Anion Gap Estim Creat Clear Calc 126.3 Estimated GFR > 60 POC Glucose 214 H 155 H Random Glucose Calcium C. difficile Tox B Gene Procedures Date of Service Date of Service: 09/11/22 Progress Note: A&P Assessment and plan (1) Abscess: Status: Acute (2) Diabetic foot ulcer: Status: Acute Plan Right diabetic foot ulcer, gangrene and abscess. Wounds are draining appropriately. He will almost certainly need amputation, the only question is the level of amputation: ray, transmet, vs BKA. Will recheck WBC this morning. If WBC improved, continue with antibiotics but if it remains elevated, BKA may be best option. Time Spent With Patient Time: Total time managing care of this patient today ____ minutes. Quality Stroke Does the patient have a stroke diagnosis?: No VTE Prior VTE?: No VTE Risk Level:: Medical - moderate - high VTE Device Contraindication: Treatment Not Indicated VTE Drug Contraindication: N/A - Med Ordered
[2022-09-11 08:45] LABS: Hematocrit 24.1 % (42.0-52.0); Mean Corpuscular HGB Conc 33.2 g/dl (31.0-36.0); Mean Corpuscular Hemoglobin 27.9 pg (27.0-33.0); Platelet Count 323 X10*3/uL (160-400); Red Blood Count 2.87 X10*6/uL (4.60-5.80); Red Cell Distribution Width 13.2 % (11.0-16.0); White Blood Count 21.6 X10*3/uL (4.8-10.8)
[2022-09-11 08:54] LABS: Lactic Acid 0.8 mmol/L (0.5-2.0)
--- NOTE | 2022-09-11 10:50 | P.PNIM_ITS ---
Subjective Subjective Date of Service: 09/11/22 Interval History: f/u on diabetic foot ulcer, osteomylitis (OM) of the foot no pain, no new changes s/p ID and drainage 09/08 by surgery, another debridment today Physical Exam Vital Signs: Vital Signs: Last Vital Signs Temp 97 F 09/11/22 07:25 Pulse 71 09/11/22 07:25 Resp 19 09/11/22 07:25 BP 126/57 L 09/11/22 07:25 Pulse Ox 93 09/11/22 07:25 O2 Del Method 09/11/22 07:25 O2 Flow Rate 2 09/10/22 15:33 BMI result Body Mass Index 40.4 Const: Other: General: AO X 3, no acute distress Resp: CTA bilateral CVS: S1,S2,RRR GI: +BS, NT, no distention Skin: See picture, dressing in place Neuro: motor grossly intact Psych: appropriate affect Objective Data Active Medications Acetaminophen (Acetaminophen 325 Mg Tablet) 650 mg PO Q6H PRN PRN Reason: Pain, Mild (Pain Scale 1-3) Ezetimibe (Ezetimibe 10 Mg Tablet) 10 mg PO DAILY [facility] Last Admin: 09/11/22 07:46 Dose: 10 mg Documented By: MERRY Escitalopram Oxalate (Escitalopram Oxalate 10 Mg Tablet) 10 mg PO DAILY [facility] Last Admin: 09/11/22 07:45 Dose: 10 mg Documented By: MERRY Fenofibrate (Fenofibrate 54 Mg Tablet) 54 mg PO DAILY [facility] Last Admin: 09/11/22 07:47 Dose: 54 mg Documented By: MERRY Gabapentin (Gabapentin 100 Mg Capsule) 100 mg PO Q8H [facility] Last Admin: 09/11/22 05:34 Dose: Not Given Documented By: JOSE-JOZEB Non-Admin Reason: lethargy Glucose (Glucose Gel 15 Gm Gel..Gram.) 15 gm PO Q15M PRN; Protocol PRN Reason: per Hypoglycemia Standing Ord. Heparin Sodium (Porcine) (Heparin Sodium,Porcine 5,000 Unit/Ml Vial) 5,000 unit SUBCUT Q12H [facility] Last Admin: 09/11/22 07:46 Dose: 5,000 unit Documented By: MERRY Heparin Sodium (Porcine) (Heparin Sodium,Porcine Flush 50 Units/5 Ml Syringe) 50 units IVFLUSH [facility] Dextrose (D10) 250 mls @ 750 mls/hr IV Q15M PRN; Protocol PRN Reason: per Hypoglycemia Standing Ord. Vancomycin HCl 1,000 mg/ (Sodium Chloride) 270 mls @ 270 mls/hr IV Q12H [facility] Last Infusion: 09/11/22 08:43 Dose: 0 mls/hr Documented By: MERRY Insulin Glargine (Insulin Glargine,Hum.Rec.Anlog 100 Unit/Ml 10 Ml Vial) 21 unit SUBCUT DAILY [facility] Last Admin: 09/11/22 07:44 Dose: 21 unit Documented By: MERRY Insulin Human Lispro (Insulin Lispro 100 Unit/Ml 3 Ml Vial) 0 unit SUBCUT QIDACHS [facility]; Protocol Last Admin: 09/11/22 07:44 Dose: 2 unit Documented By: MERRY Levothyroxine Sodium (Levothyroxine Sodium 150 Mcg Tablet) 150 mcg PO DAILY@0600 [facility] Last Admin: 09/11/22 05:34 Dose: Not Given Documented By: OC Non-Admin Reason: lethargy Loperamide HCl (Loperamide Hcl Oral Liquid 2 Mg/15 Ml Liquid) 2 mg PO Q6H PRN PRN Reason: Diarrhea Non-Formulary Medication (Simvastatin) 40 mg PO DAILY [facility] Ondansetron HCl (Ondansetron Hcl 4 Mg/2 Ml Vial) 4 mg IVPUSH Q8H PRN PRN Reason: Nausea and Vomiting Pharmacy Consult (Consult Rx Perform Med Rec) 1 each MISCELLANE ONCE PRN PRN Reason: Consult order Pharmacy Consult (Consult Rx Vancomycin Dosing) 1 each MISCELLANE DAILY PRN PRN Reason: Consult order Pharmacy Consult (Consult Rx Vancomycin Dosing) 1 each MISCELLANE DAILY PRN PRN Reason: Consult order Sodium Chloride (0.9 % Sodium Chloride Flush 3 Ml Syringe) 3 ml IVFLUSH [facility] Last Admin: 09/11/22 07:39 Dose: 3 ml Documented By: MERRY Vitamin D (Cholecalciferol (Vitamin D3) 25 Mcg Tablet) 50 mcg PO DAILY [facility] Last Admin: 09/11/22 07:45 Dose: 50 mcg Documented By: MERRY Labs 09/11/22 08:25 09/11/22 07:02 Labs: Laboratory Results - last 24 hr 09/10/22 09/10/22 09/10/22 10:15 10:59 21:13 MCV MCH MCHC RDW Plt Count MPV Absolute Nucleated RBC Nucleated RBC % (auto) Estim Creat Clear Calc Estimated GFR POC Glucose 185 H 214 H Lactic Acid Vancomycin Trough C. difficile Tox B Gene NEGATIVE 09/11/22 09/11/22 09/11/22 07:02 07:02 07:24 MCV MCH MCHC RDW Plt Count MPV Absolute Nucleated RBC Nucleated RBC % (auto) Estim Creat Clear Calc 126.3 Estimated GFR > 60 POC Glucose 155 H Lactic Acid Vancomycin Trough 15.8 C. difficile Tox B Gene 09/11/22 09/11/22 08:25 08:25 MCV 84.0 MCH 27.9 MCHC 33.2 RDW 13.2 Plt Count 323 MPV 9.0 L Absolute Nucleated RBC 0.000 Nucleated RBC % (auto) 0.0 Estim Creat Clear Calc Estimated GFR POC Glucose Lactic Acid 0.8 Vancomycin Trough C. difficile Tox B Gene Assessment and Plan (1) JJ (acute kidney injury): Status: Acute (2) Diabetic foot ulcer: Status: Acute (3) Osteomyelitis: Status: Acute Plan 52-year-old male with history of insulin-dependent type 2 diabetes, hypothyroidism, hyperlipidemia, hypertension, congestive heart failure, proteinuria, and nonhealing diabetic left foot ulcer who is morbidly obese admitted for nonhealing diabetic foot ulcer of the right foot with cellulitis an d question of osteomyelitis. #Sepsis, WBC is still high #gram positive cocci bactermia (MRSA and E. Feacalis) #Osteomylitis of R 4th and 5th metatarsophalangeal joints on MRI # nonhealing right diabetic foot ulcer with cellulitis and abscless s/p I&D by dr. Dempsey on 09/08 -recently completed 6 weeks IV ertapenem on 08/10 with recent discharge from [facility] on 06/29.? MRI at that time negative for osteomyelitis, but extended antibiotics recommended by ID -x-ray of right foot negative for any bony erosions or periosteal thickening but showing soft tissue swelling -ESR 112, CRP 25 -continue IV vancomycin and renally adjusted cefepime -has known PAD but no recent arterial imaging.? Arterial Doppler normal flow -ID recommends 4 to 6 weeks of IV Abx and ampuation of 4, 5 th digits, will need a picc line surgery following and if not improving likely amputation -follow CBC and blood cultures -repeat blood cultures, negative, request PICC line 09/10 # acute kidney injury-likely related to hypovolemia, resolved with IVF # acute hypOnatremia-likely related to hypovolemia and thiazide diuretic use -urine studies ordered Hold thiazide diuretics, recheck labs -consider Nephrology consult if no improvement # insulin-dependent type 2 diabetes with hyperglycemia -hemoglobin A1c pending -continue basal insulin -Humalog on sliding scale -POC glucose -diabetic diet # hypertension-continue home meds # hypOthyroidism -continue levothyroxine # hyperlipidemia -continue Zetia and statin # Congestive heart failure, ejection fraction unspecified -euvolemic appearing, no acute exacerbation DVT prophylaxis-heparin Full code need for ipatient: IV Abx for OM, awaiting culture and longter IV Abx plans Time Spent With Patient Time: Total time managing care of this patient today ____ minutes. Quality Stroke Does the patient have a stroke diagnosis?: No VTE Prior VTE?: No VTE Risk Level:: Medical - moderate - high VTE Device Contraindication: Treatment Not Indicated VTE Drug Contraindication: N/A - Med Ordered
[2022-09-11 11:08] LABS: Glucose, Whole Blood 126 mg/dL (60-115)
--- NOTE | 2022-09-11 11:53 | MHC.CM.PN ---
Discharge is on hold. General surgery plans Debridement today. [facility] has received update. IV ABX duration per ID. DP return to [facility] via BLS.
[2022-09-11] MEDS: Gabapentin 100 MG CAPSULE PO ×2 (11:58→21:48)
[2022-09-11 15:28] VITALS: BP 133/58; PULSE 68; RESP 20; TEMP 38; O2SAT 92
[2022-09-11 16:15] LABS: Glucose, Whole Blood 170 mg/dL (60-115)
[2022-09-11] MEDS: Heparin Sodium,Porcine Flush 50 UNITS/5 ML SYRINGE IVFLUSH (16:24)
[2022-09-11 19:54] VITALS: BP 150/72; PULSE 71; RESP 20; TEMP 37.4; O2SAT 92
[2022-09-11 21:20] LABS: Glucose, Whole Blood 180 mg/dL (60-115)
[2022-09-12 03:45] VITALS: BP 154/74; PULSE 71; RESP 16; TEMP 36.3; O2SAT 93
[2022-09-12 07:00] VITALS: BP 150/77; PULSE 71; RESP 19; TEMP 36.7; O2SAT 95
[2022-09-12 07:23] LABS: Glucose, Whole Blood 172 mg/dL (60-115)
[2022-09-12] MEDS: vancomycin HCL 1,000 MG in 0.9 % Sodium Chloride 250 ML 270 MG IV ×2 (08:16→20:04)
[2022-09-12] MEDS: Heparin Sodium,Porcine Flush 50 UNITS/5 ML SYRINGE IVFLUSH ×2 (08:16→17:08)
[2022-09-12] MEDS: Insulin Lispro 100 UNIT/ML 3 ML VIAL SUBCUT (08:17)
[2022-09-12] MEDS: 0.9 % Sodium Chloride Flush 3 ML SYRINGE IVFLUSH ×3 (08:18→20:06)
[2022-09-12 08:23] LABS: Hematocrit 24.8 % (42.0-52.0); Hemoglobin 8.2 g/dl (14.0-18.0); Mean Corpuscular HGB Conc 33.1 g/dl (31.0-36.0); Mean Corpuscular Hemoglobin 27.7 pg (27.0-33.0); Mean Corpuscular Volume 83.8 fL (80.0-98.0); Mean Platelet Volume 9.2 fL (9.4-12.4); Platelet Count 337 X10*3/uL (160-400); Red Blood Count 2.96 X10*6/uL (4.60-5.80); Red Cell Distribution Width 13.3 % (11.0-16.0); White Blood Count 15.8 X10*3/uL (4.8-10.8)
[2022-09-12 09:00] LABS: Anion Gap 11 (12-20); Blood Urea Nitrogen 8 mg/dL (9-16); Calcium 7.8 mg/dL (8.4-10.2); Carbon Dioxide 24 mmol/L (22-29); Chloride 105 mmol/L (96-108); Creatinine Clr Calc Pharmacy 138.9; Estimated Glomerular Filt Rate > 60; Glucose Random 152 mg/dL (60-115); Potassium 3.8 mmol/L (3.3-5.1); Sodium 136 mmol/L (135-145)
[2022-09-12 09:03] LABS: Vancomycin Random 15.2 mcg/mL (15-20)
[2022-09-12 11:12] LABS: Glucose, Whole Blood 163 mg/dL (60-115)
--- NOTE | 2022-09-12 12:11 | PC.NURSE ---
Per report from floor RN [place] patient not oriented/cant sign for self. HCP found in system listing ex Isaura as HCP, okay with patient to speak with her. Per this top stitcher with hris specialist at the bedside, patient is able to verbalize name & , where he is, reason for admission, date by month, day & year, and why he is at [facility]. A/Ox4 per this top stitcher with hris specialist. Consents signed by patient.
[2022-09-12 12:20] VITALS: BP 144/74; PULSE 69; RESP 18; TEMP 36.9; O2SAT 94
--- NOTE | 2022-09-12 12:26 | HO.ANESPROP2 ---
HPI - Anesthesia Eval Consult details Narrative: Right transmet amputation PMFSH Active Problems Active Problems: All Active Problems (Updated 09/08/22 @ 13:02 by Kristen Fraser MD) Abscess (Acute) Bacteremia (Acute) JJ (acute kidney injury) (Acute) Diabetic foot ulcer (Acute) Osteomyelitis (Acute) Diabetic foot ulcer (Acute) Physical exam (Acute) Microalbuminuria (Acute) Bilateral hand pain (Acute) Right knee pain (Acute) Hypovitaminosis D (Acute) Right foot pain (Acute) Left foot pain (Acute) Hypoglycemia (Acute) Knee pain, chronic (Acute) Type 2 diabetes mellitus with hyperosmolar hyperglycemic state (HHS) (Acute) Autoimmune thyroiditis (Acute) Obesity due to excess calories (Acute) Type 2 diabetes mellitus with hyperglycemia, with long-term current use of insulin (Acute) Type 2 diabetes mellitus with other diabetic kidney complication (Acute) Proteinuria (Acute) Essential hypertension (Acute) Hyperlipidemia LDL goal <100 (Acute) Past Medical History Medical History (Updated 09/08/22 @ 13:02 by Kristen Fraser MD) Acute kidney injury Autoimmune thyroiditis Bacteremia Bilateral hand pain Cataracts, both eyes CHF (congestive heart failure) Cognitive developmental delay Diabetes Diabetic ketoacidosis Edema Essential hypertension HTN (hypertension) Hyperkalemia Hyperlipidemia Hyperlipidemia LDL goal <100 Hyponatremia Hypothyroid Hypovitaminosis D Infection of penis Left foot pain Obesity due to excess calories Proteinuria Right foot pain Right knee pain Type 2 diabetes mellitus with hyperglycemia, with long-term current use of insulin Type 2 diabetes mellitus with other diabetic kidney complication Family History Family History Father HTN (hypertension) Mother Diabetes mellitus Maternal Grandmother Diabetes mellitus Family history of problems with anesthesia: No Surgical History Surgical History Hx of cataract surgery Hx of removal of cyst History of Problems with Anesthesia: No Social History Social History Household Members: Other Household Members Other:: SNF Housing: Assisted Living Facility [facility] Alcohol intake: never Patient Tobacco Use Status: Never used Tobacco e-Cigarette/Vaping Use: Never Used Second Hand Smoke Exposure: No Substance Use Type: Caffiene service: No Current occupational status: disabled Cognitive needs: Yes Hearing needs: No Vision needs: No Meds Allergies Allergy/AdvReac Type Severity Reaction Status Date / Time atorvastatin [ATORVASTATIN] Allergy Unknown skin Verified 12/27/21 10:50 eruption Active Medications: Current Medications Acetaminophen (Acetaminophen 325 Mg Tablet) 650 mg PO Q6H PRN PRN Reason: Pain, Mild (Pain Scale 1-3) Ezetimibe (Ezetimibe 10 Mg Tablet) 10 mg PO DAILY [facility] Last Admin: 09/12/22 10:14 Dose: Not Given Escitalopram Oxalate (Escitalopram Oxalate 10 Mg Tablet) 10 mg PO DAILY [facility] Last Admin: 09/12/22 10:14 Dose: Not Given Fenofibrate (Fenofibrate 54 Mg Tablet) 54 mg PO DAILY [facility] Last Admin: 09/12/22 10:14 Dose: Not Given Gabapentin (Gabapentin 100 Mg Capsule) 100 mg PO Q8H [facility] Last Admin: 09/12/22 00:26 Dose: Not Given Glucose (Glucose Gel 15 Gm Gel..Gram.) 15 gm PO Q15M PRN; Protocol PRN Reason: per Hypoglycemia Standing Ord. Heparin Sodium (Porcine) (Heparin Sodium,Porcine 5,000 Unit/Ml Vial) 5,000 unit SUBCUT Q12H [facility] Last Admin: 09/11/22 07:46 Dose: 5,000 unit Heparin Sodium (Porcine) (Heparin Sodium,Porcine Flush 50 Units/5 Ml Syringe) 50 units IVFLUSH QSHIFT [facility] Last Admin: 09/12/22 08:16 Dose: 50 units Dextrose (D10) 250 mls @ 750 mls/hr IV Q15M PRN; Protocol PRN Reason: per Hypoglycemia Standing Ord. Vancomycin HCl 1,000 mg/ (Sodium Chloride) 270 mls @ 270 mls/hr IV Q12H [facility] Last Infusion: 09/12/22 10:34 Dose: Infused Insulin Glargine (Insulin Glargine,Hum.Rec.Anlog 100 Unit/Ml 10 Ml Vial) 21 unit SUBCUT DAILY [facility] Last Admin: 09/11/22 07:44 Dose: 21 unit Insulin Human Lispro (Insulin Lispro 100 Unit/Ml 3 Ml Vial) 0 unit SUBCUT QIDACHS [facility]; Protocol Last Admin: 09/12/22 08:17 Dose: 2 unit Levothyroxine Sodium (Levothyroxine Sodium 150 Mcg Tablet) 150 mcg PO DAILY@0600 [facility] Last Admin: 09/12/22 00:26 Dose: Not Given Loperamide HCl (Loperamide Hcl Oral Liquid 2 Mg/15 Ml Liquid) 2 mg PO Q6H PRN PRN Reason: Diarrhea Non-Formulary Medication (Simvastatin) 40 mg PO DAILY [facility] Ondansetron HCl (Ondansetron Hcl 4 Mg/2 Ml Vial) 4 mg IVPUSH Q8H PRN PRN Reason: Nausea and Vomiting Pharmacy Consult (Consult Rx Perform Med Rec) 1 each MISCELLANE ONCE PRN PRN Reason: Consult order Pharmacy Consult (Consult Rx Vancomycin Dosing) 1 each MISCELLANE DAILY PRN PRN Reason: Consult order Pharmacy Consult (Consult Rx Vancomycin Dosing) 1 each MISCELLANE DAILY PRN PRN Reason: Consult order Sodium Chloride (0.9 % Sodium Chloride Flush 3 Ml Syringe) 3 ml IVFLUSH QSHIFT [facility] Last Admin: 09/12/22 08:18 Dose: 3 ml Vitamin D (Cholecalciferol (Vitamin D3) 25 Mcg Tablet) 50 mcg PO DAILY [facility] Last Admin: 09/12/22 10:14 Dose: Not Given Home Medications Medication Instructions Recorded Confirmed Last Taken Type dulaglutide 1.5 mg/0.5 mL 1.5 mg subcut FR 06/20/22 09/03/22 06/15/22 History subcutaneous pen injector (Trulicity) insulin aspart U-100 100 unit/mL See Protocol subcut QIDACHS 06/20/22 09/03/22 06/20/22 History (3 mL) subcutaneous pen (Novolog FlexPen U-100 Insulin aspart) insulin degludec 200 unit/mL (3 40 unit subcut DAILY 06/20/22 09/03/22 06/20/22 History mL) subcutaneous pen (Tresiba FlexTouch U-200 insulin) metformin 500 mg tablet 500 mg PO BIDWM 06/20/22 09/03/22 06/20/22 History doxycycline hyclate 100 mg tablet 100 mg PO BID 09/03/22 09/03/22 Unknown History ondansetron HCl 4 mg tablet 4 mg PO Q6H PRN Nausea 09/03/22 09/03/22 Unknown History Exam Exam Date and Time: September 12, 2022 122 Height,Weight and Vital Signs: Height 5 ft 9 in Weight 124 kg Last Vital Signs Temp 98.4 F 09/12/22 12:20 Pulse 69 09/12/22 12:20 Resp 18 09/12/22 12:20 BP 144/74 H 09/12/22 12:20 Pulse Ox 94 09/12/22 12:20 O2 Del Method 09/12/22 12:20 O2 Flow Rate 2 09/10/22 15:33 Pertinent Lab Results Pertinent Lab Results: Laboratory Tests 09/03/22 09/03/22 09/03/22 17:42 17:43 17:45 WBC 20.5 H RBC 2.99 L D Hgb 8.4 L D Hct 24.2 L D MCV 80.9 MCH 28.1 MCHC 34.7 RDW 12.6 Plt Count 264 D MPV 10.8 Immature Gran % (Auto) 1.1 H Neut % (Auto) 85.3 H Lymph % (Auto) 6.3 L [place] % (Auto) 6.1 Eos % (Auto) 0.9 Baso % (Auto) 0.3 Lymph # (Auto) 1.3 [place] # (Auto) 1.3 H Eos # (Auto) 0.2 Baso # (Auto) 0.1 Abs Immat Gran (auto) 0.22 H Absolute Neuts (auto) 17.5 H Absolute Nucleated RBC 0.000 Nucleated RBC % (auto) 0.0 ESR Sodium Potassium Chloride Carbon Dioxide Anion Gap BUN Creatinine Estim Creat Clear Calc Estimated GFR POC Glucose Random Glucose Estimat Average Glucose 174 Hemoglobin A1c % 7.7 Lactic Acid 0.9 Calcium C-Reactive Protein Urine Color Urine Appearance Urine pH Ur Specific [place] Urine Protein Urine Glucose (UA) Urine Ketones Urine Blood Urine Nitrite Ur Leukocyte Esterase Urine RBC Urine WBC Ur Squamous Epith Cells Urine Bacteria Hyaline Casts Urine Osmolality Ur Random Sodium Urine Creatinine Vancomycin Trough Random Vancomycin C. difficile Tox B Gene COVID-19 ([facility]) COVID-19 Clin Com 09/03/22 09/03/22 09/03/22 18:15 18:15 18:15 WBC RBC Hgb Hct MCV MCH MCHC RDW Plt Count MPV Immature Gran % (Auto) Neut % (Auto) Lymph % (Auto) [place] % (Auto) Eos % (Auto) Baso % (Auto) Lymph # (Auto) [place] # (Auto) Eos # (Auto) Baso # (Auto) Abs Immat Gran (auto) Absolute Neuts (auto) Absolute Nucleated RBC Nucleated RBC % (auto) ESR 115 H Sodium 125 L Potassium 3.6 Chloride 95 L Carbon Dioxide 18 L Anion Gap 16 BUN 57 H Creatinine 2.03 H Estim Creat Clear Calc 54.7 Estimated GFR 35 POC Glucose Random Glucose 260 H Estimat Average Glucose Hemoglobin A1c % Lactic Acid Calcium 7.5 L D C-Reactive Protein 25.84 H Urine Color Urine Appearance Urine pH Ur Specific [place] Urine Protein Urine Glucose (UA) Urine Ketones Urine Blood Urine Nitrite Ur Leukocyte Esterase Urine RBC Urine WBC Ur Squamous Epith Cells Urine Bacteria Hyaline Casts Urine Osmolality Ur Random Sodium Urine Creatinine Vancomycin Trough Random Vancomycin C. difficile Tox B Gene COVID-19 ([facility]) Negative [facility]-[employer] Com See Note 09/03/22 09/04/22 09/04/22 21:12 05:46 05:46 WBC 19.8 H RBC 3.23 L Hgb 8.9 L Hct 26.1 L MCV 80.8 MCH 27.6 MCHC 34.1 RDW 12.5 Plt Count 283 MPV 10.0 Immature Gran % (Auto) 1.3 H Neut % (Auto) 84.1 H Lymph % (Auto) 5.8 L [place] % (Auto) 6.6 Eos % (Auto) 1.8 Baso % (Auto) 0.4 Lymph # (Auto) 1.1 L [place] # (Auto) 1.3 H Eos # (Auto) 0.4 Baso # (Auto) 0.1 Abs Immat Gran (auto) 0.25 H Absolute Neuts (auto) 16.7 H Absolute Nucleated RBC 0.000 Nucleated RBC % (auto) 0.0 ESR Sodium 129 L Potassium 3.8 Chloride 98 Carbon Dioxide 21 L Anion Gap 14 BUN 52 H Creatinine 1.47 H Estim Creat Clear Calc 75.6 Estimated GFR 50 POC Glucose 229 H Random Glucose 172 H Estimat Average Glucose Hemoglobin A1c % Lactic Acid Calcium 7.7 L C-Reactive Protein Urine Color Urine Appearance Urine pH Ur Specific [place] Urine Protein Urine Glucose (UA) Urine Ketones Urine Blood Urine Nitrite Ur Leukocyte Esterase Urine RBC Urine WBC Ur Squamous Epith Cells Urine Bacteria Hyaline Casts Urine Osmolality Ur Random Sodium Urine Creatinine Vancomycin Trough Random Vancomycin C. difficile Tox B Gene COVID-19 ([facility]) COVID-19 [email or web address] 09/04/22 09/04/22 09/04/22 05:59 05:59 05:59 WBC RBC Hgb Hct MCV MCH MCHC RDW Plt Count MPV Immature Gran % (Auto) Neut % (Auto) Lymph % (Auto) [place] % (Auto) Eos % (Auto) Baso % (Auto) Lymph # (Auto) [place] # (Auto) Eos # (Auto) Baso # (Auto) Abs Immat Gran (auto) Absolute Neuts (auto) Absolute Nucleated RBC Nucleated RBC % (auto) ESR Sodium Potassium Chloride Carbon Dioxide Anion Gap BUN Creatinine Estim Creat Clear Calc Estimated GFR POC Glucose Random Glucose Estimat Average Glucose Hemoglobin A1c % Lactic Acid Calcium C-Reactive Protein Urine Color Dark Yellow Urine Appearance Cloudy Urine pH 5.0 Ur Specific Isabella 1.015 Urine Protein Trace Urine Glucose (UA) Negative Urine Ketones Trace Urine Blood Negative Urine Nitrite Negative Ur Leukocyte Esterase Moderate (2+) H Urine RBC >20 H Urine WBC 21-50 H Ur Squamous Epith Cells 3-5 Urine Bacteria None Seen Hyaline Casts 6-10 Urine Osmolality 389 Ur Random Sodium < 20.0 Urine Creatinine 188.64 Vancomycin Trough Random Vancomycin C. difficile Tox B Gene COVID-19 ([facility]) [employer] 09/04/22 09/04/22 09/04/22 07:34 13:32 16:14 WBC RBC Hgb Hct MCV MCH MCHC RDW Plt Count MPV Immature Gran % (Auto) Neut % (Auto) Lymph % (Auto) [place] % (Auto) Eos % (Auto) Baso % (Auto) Lymph # (Auto) [place] # (Auto) Eos # (Auto) Baso # (Auto) Abs Immat Gran (auto) Absolute Neuts (auto) Absolute Nucleated RBC Nucleated RBC % (auto) ESR Sodium Potassium Chloride Carbon Dioxide Anion Gap BUN Creatinine Estim Creat Clear Calc Estimated GFR POC Glucose 166 H 185 H 173 H Random Glucose Estimat Average Glucose Hemoglobin A1c % Lactic Acid Calcium C-Reactive Protein Urine Color Urine Appearance Urine pH Ur Specific [place] Urine Protein Urine Glucose (UA) Urine Ketones Urine Blood Urine Nitrite Ur Leukocyte Esterase Urine RBC Urine WBC Ur Squamous Epith Cells Urine Bacteria Hyaline Casts Urine Osmolality Ur Random Sodium Urine Creatinine Vancomycin Trough Random Vancomycin C. difficile Tox B Gene COVID-19 ([facility]) [employer] 09/04/22 09/05/22 09/05/22 20:30 05:40 07:25 WBC RBC Hgb Hct MCV MCH MCHC RDW Plt Count MPV Immature Gran % (Auto) Neut % (Auto) Lymph % (Auto) [place] % (Auto) Eos % (Auto) Baso % (Auto) Lymph # (Auto) [place] # (Auto) Eos # (Auto) Baso # (Auto) Abs Immat Gran (auto) Absolute Neuts (auto) Absolute Nucleated RBC Nucleated RBC % (auto) ESR Sodium 135 Potassium 3.8 Chloride 104 Carbon Dioxide 23 Anion Gap 12 BUN 27 H Creatinine 0.89 Estim Creat Clear Calc 124.9 Estimated GFR > 60 POC Glucose 152 H 114 Random Glucose 93 Estimat Average Glucose Hemoglobin A1c % Lactic Acid Calcium 7.8 L C-Reactive Protein Urine Color Urine Appearance Urine pH Ur Specific [place] Urine Protein Urine Glucose (UA) Urine Ketones Urine Blood Urine Nitrite Ur Leukocyte Esterase Urine RBC Urine WBC Ur Squamous Epith Cells Urine Bacteria Hyaline Casts Urine Osmolality Ur Random Sodium Urine Creatinine Vancomycin Trough Random Vancomycin C. difficile Tox B Gene COVID-19 ([facility]) COVID-19 [employer] 09/05/22 09/05/22 09/05/22 11:13 16:46 19:08 WBC RBC Hgb Hct MCV MCH MCHC RDW Plt Count MPV Immature Gran % (Auto) Neut % (Auto) Lymph % (Auto) [place] % (Auto) Eos % (Auto) Baso % (Auto) Lymph # (Auto) [place] # (Auto) Eos # (Auto) Baso # (Auto) Abs Immat Gran (auto) Absolute Neuts (auto) Absolute Nucleated RBC Nucleated RBC % (auto) ESR Sodium Potassium Chloride Carbon Dioxide Anion Gap BUN Creatinine Estim Creat Clear Calc Estimated GFR POC Glucose 171 H 221 H Random Glucose Estimat Average Glucose Hemoglobin A1c % Lactic Acid Calcium C-Reactive Protein Urine Color Urine Appearance Urine pH Ur Specific [place] Urine Protein Urine Glucose (UA) Urine Ketones Urine Blood Urine Nitrite Ur Leukocyte Esterase Urine RBC Urine WBC Ur Squamous Epith Cells Urine Bacteria Hyaline Casts Urine Osmolality Ur Random Sodium Urine Creatinine Vancomycin Trough Random Vancomycin 8.6 L C. difficile Tox B Gene COVID-19 ([facility]) COVID-19 [email or web address] 09/05/22 09/05/22 09/06/22 19:08 20:35 07:45 WBC 18.4 H RBC 3.12 L Hgb 8.8 L Hct 25.2 L MCV 80.8 MCH 28.2 MCHC 34.9 RDW 12.9 Plt Count 289 MPV 10.7 Immature Gran % (Auto) Neut % (Auto) Lymph % (Auto) [place] % (Auto) Eos % (Auto) Baso % (Auto) Lymph # (Auto) [place] # (Auto) Eos # (Auto) Baso # (Auto) Abs Immat Gran (auto) Absolute Neuts (auto) Absolute Nucleated RBC 0.000 Nucleated RBC % (auto) 0.0 ESR Sodium Potassium Chloride Carbon Dioxide Anion Gap BUN Creatinine Estim Creat Clear Calc Estimated GFR POC Glucose 199 H 125 H Random Glucose Estimat Average Glucose Hemoglobin A1c % Lactic Acid Calcium C-Reactive Protein Urine Color Urine Appearance Urine pH Ur Specific [place] Urine Protein Urine Glucose (UA) Urine Ketones Urine Blood Urine Nitrite Ur Leukocyte Esterase Urine RBC Urine WBC Ur Squamous Epith Cells Urine Bacteria Hyaline Casts Urine Osmolality Ur Random Sodium Urine Creatinine Vancomycin Trough Random Vancomycin C. difficile Tox B Gene COVID-19 ([facility]) COVID-19 [facility] 09/06/22 09/06/22 09/06/22 08:58 11:12 16:21 WBC RBC Hgb Hct MCV MCH MCHC RDW Plt Count MPV Immature Gran % (Auto) Neut % (Auto) Lymph % (Auto) [place] % (Auto) Eos % (Auto) Baso % (Auto) Lymph # (Auto) [place] # (Auto) Eos # (Auto) Baso # (Auto) Abs Immat Gran (auto) Absolute Neuts (auto) Absolute Nucleated RBC Nucleated RBC % (auto) ESR Sodium 131 L Potassium 4.1 Chloride 102 Carbon Dioxide 20 L Anion Gap 13 BUN 19 H Creatinine 1.03 Estim Creat Clear Calc 107.9 Estimated GFR > 60 POC Glucose 189 H 181 H Random Glucose 150 H Estimat Average Glucose Hemoglobin A1c % Lactic Acid Calcium 7.8 L C-Reactive Protein Urine Color Urine Appearance Urine pH Ur Specific [place] Urine Protein Urine Glucose (UA) Urine Ketones Urine Blood Urine Nitrite Ur Leukocyte Esterase Urine RBC Urine WBC Ur Squamous Epith Cells Urine Bacteria Hyaline Casts Urine Osmolality Ur Random Sodium Urine Creatinine Vancomycin Trough Random Vancomycin C. difficile Tox B Gene COVID-19 ([facility]) COVID-19 [facility] 09/06/22 09/06/22 09/07/22 18:09 20:52 05:58 WBC 20.6 H RBC 3.17 L Hgb 8.8 L Hct 26.0 L MCV 82.0 MCH 27.8 MCHC 33.8 RDW 13.1 Plt Count 361 MPV 9.5 Immature Gran % (Auto) Neut % (Auto) Lymph % (Auto) [place] % (Auto) Eos % (Auto) Baso % (Auto) Lymph # (Auto) [place] # (Auto) Eos # (Auto) Baso # (Auto) Abs Immat Gran (auto) Absolute Neuts (auto) Absolute Nucleated RBC 0.000 Nucleated RBC % (auto) 0.0 ESR Sodium Potassium Chloride Carbon Dioxide Anion Gap BUN Creatinine Estim Creat Clear Calc Estimated GFR POC Glucose 182 H Random Glucose Estimat Average Glucose Hemoglobin A1c % Lactic Acid Calcium C-Reactive Protein Urine Color Urine Appearance Urine pH Ur Specific [place] Urine Protein Urine Glucose (UA) Urine Ketones Urine Blood Urine Nitrite Ur Leukocyte Esterase Urine RBC Urine WBC Ur Squamous Epith Cells Urine Bacteria Hyaline Casts Urine Osmolality Ur Random Sodium Urine Creatinine Vancomycin Trough Random Vancomycin 15.6 C. difficile Tox B Gene COVID-19 ([facility]) [email or web address] 09/07/22 09/07/22 09/07/22 05:58 07:35 11:08 WBC RBC Hgb Hct MCV MCH MCHC RDW Plt Count MPV Immature Gran % (Auto) Neut % (Auto) Lymph % (Auto) [place] % (Auto) Eos % (Auto) Baso % (Auto) Lymph # (Auto) [place] # (Auto) Eos # (Auto) Baso # (Auto) Abs Immat Gran (auto) Absolute Neuts (auto) Absolute Nucleated RBC Nucleated RBC % (auto) ESR Sodium Potassium Chloride Carbon Dioxide Anion Gap BUN Creatinine 0.96 Estim Creat Clear Calc 115.8 Estimated GFR > 60 POC Glucose 158 H 225 H Random Glucose Estimat Average Glucose Hemoglobin A1c % Lactic Acid Calcium C-Reactive Protein Urine Color Urine Appearance Urine pH Ur Specific [place] Urine Protein Urine Glucose (UA) Urine Ketones Urine Blood Urine Nitrite Ur Leukocyte Esterase Urine RBC Urine WBC Ur Squamous Epith Cells Urine Bacteria Hyaline Casts Urine Osmolality Ur Random Sodium Urine Creatinine Vancomycin Trough Random Vancomycin C. difficile Tox B Gene COVID-19 ([facility]) COVID-19 [facility] 09/07/22 09/07/22 09/07/22 15:42 18:14 20:34 WBC RBC Hgb Hct MCV MCH MCHC RDW Plt Count MPV Immature Gran % (Auto) Neut % (Auto) Lymph % (Auto) [place] % (Auto) Eos % (Auto) Baso % (Auto) Lymph # (Auto) [place] # (Auto) Eos # (Auto) Baso # (Auto) Abs Immat Gran (auto) Absolute Neuts (auto) Absolute Nucleated RBC Nucleated RBC % (auto) ESR Sodium Potassium Chloride Carbon Dioxide Anion Gap BUN Creatinine Estim Creat Clear Calc Estimated GFR POC Glucose 281 H 181 H Random Glucose Estimat Average Glucose Hemoglobin A1c % Lactic Acid Calcium C-Reactive Protein Urine Color Urine Appearance Urine pH Ur Specific [place] Urine Protein Urine Glucose (UA) Urine Ketones Urine Blood Urine Nitrite Ur Leukocyte Esterase Urine RBC Urine WBC Ur Squamous Epith Cells Urine Bacteria Hyaline Casts Urine Osmolality Ur Random Sodium Urine Creatinine Vancomycin Trough Random Vancomycin 14.6 L C. difficile Tox B Gene COVID-19 ([facility]) COVID-19 [facility] 09/08/22 09/08/22 09/08/22 04:19 07:27 11:15 WBC RBC Hgb Hct MCV MCH MCHC RDW Plt Count MPV Immature Gran % (Auto) Neut % (Auto) Lymph % (Auto) [place] % (Auto) Eos % (Auto) Baso % (Auto) Lymph # (Auto) [place] # (Auto) Eos # (Auto) Baso # (Auto) Abs Immat Gran (auto) Absolute Neuts (auto) Absolute Nucleated RBC Nucleated RBC % (auto) ESR Sodium Potassium Chloride Carbon Dioxide Anion Gap BUN Creatinine Cancelled Estim Creat Clear Calc Cancelled Estimated GFR Cancelled POC Glucose 154 H 174 H Random Glucose Estimat Average Glucose Hemoglobin A1c % Lactic Acid Calcium C-Reactive Protein Urine Color Urine Appearance Urine pH Ur Specific [place] Urine Protein Urine Glucose (UA) Urine Ketones Urine Blood Urine Nitrite Ur Leukocyte Esterase Urine RBC Urine WBC Ur Squamous Epith Cells Urine Bacteria Hyaline Casts Urine Osmolality Ur Random Sodium Urine Creatinine Vancomycin Trough Random Vancomycin C. difficile Tox B Gene COVID-19 ([facility]) COVID-19 [facility] 09/08/22 09/08/22 09/08/22 16:29 19:33 19:33 WBC RBC Hgb Hct MCV MCH MCHC RDW Plt Count MPV Immature Gran % (Auto) Neut % (Auto) Lymph % (Auto) [place] % (Auto) Eos % (Auto) Baso % (Auto) Lymph # (Auto) [place] # (Auto) Eos # (Auto) Baso # (Auto) Abs Immat Gran (auto) Absolute Neuts (auto) Absolute Nucleated RBC Nucleated RBC % (auto) ESR Sodium Potassium Chloride Carbon Dioxide Anion Gap BUN Creatinine 1.04 Estim Creat Clear Calc 106.9 Estimated GFR > 60 POC Glucose 196 H Random Glucose Estimat Average Glucose Hemoglobin A1c % Lactic Acid Calcium C-Reactive Protein Urine Color Urine Appearance Urine pH Ur Specific [place] Urine Protein Urine Glucose (UA) Urine Ketones Urine Blood Urine Nitrite Ur Leukocyte Esterase Urine RBC Urine WBC Ur Squamous Epith Cells Urine Bacteria Hyaline Casts Urine Osmolality Ur Random Sodium Urine Creatinine Vancomycin Trough Random Vancomycin 18.3 C. difficile Tox B Gene COVID-19 ([facility]) COVID-19 Clin Com 09/08/22 09/09/22 09/09/22 20:49 05:54 07:27 WBC RBC Hgb Hct MCV MCH MCHC RDW Plt Count MPV Immature Gran % (Auto) Neut % (Auto) Lymph % (Auto) [place] % (Auto) Eos % (Auto) Baso % (Auto) Lymph # (Auto) [place] # (Auto) Eos # (Auto) Baso # (Auto) Abs Immat Gran (auto) Absolute Neuts (auto) Absolute Nucleated RBC Nucleated RBC % (auto) ESR Sodium 132 L Potassium 3.6 Chloride 103 Carbon Dioxide 18 L Anion Gap 15 BUN 14 Creatinine 0.97 Estim Creat Clear Calc 114.6 Estimated GFR > 60 POC Glucose 143 H 133 H Random Glucose 113 Estimat Average Glucose Hemoglobin A1c % Lactic Acid Calcium 7.8 L C-Reactive Protein Urine Color Urine Appearance Urine pH Ur Specific [place] Urine Protein Urine Glucose (UA) Urine Ketones Urine Blood Urine Nitrite Ur Leukocyte Esterase Urine RBC Urine WBC Ur Squamous Epith Cells Urine Bacteria Hyaline Casts Urine Osmolality Ur Random Sodium Urine Creatinine Vancomycin Trough Random Vancomycin C. difficile Tox B Gene COVID-19 ([facility]) COVID-19 Clin Com 09/09/22 09/09/22 09/09/22 11:50 16:24 18:58 WBC RBC Hgb Hct MCV MCH MCHC RDW Plt Count MPV Immature Gran % (Auto) Neut % (Auto) Lymph % (Auto) [place] % (Auto) Eos % (Auto) Baso % (Auto) Lymph # (Auto) [place] # (Auto) Eos # (Auto) Baso # (Auto) Abs Immat Gran (auto) Absolute Neuts (auto) Absolute Nucleated RBC Nucleated RBC % (auto) ESR Sodium Potassium Chloride Carbon Dioxide Anion Gap BUN Creatinine Estim Creat Clear Calc Estimated GFR POC Glucose 188 H 139 H Random Glucose Estimat Average Glucose Hemoglobin A1c % Lactic Acid Calcium C-Reactive Protein Urine Color Urine Appearance Urine pH Ur Specific [place] Urine Protein Urine Glucose (UA) Urine Ketones Urine Blood Urine Nitrite Ur Leukocyte Esterase Urine RBC Urine WBC Ur Squamous Epith Cells Urine Bacteria Hyaline Casts Urine Osmolality Ur Random Sodium Urine Creatinine Vancomycin Trough Random Vancomycin 16.3 C. difficile Tox B Gene COVID-19 ([facility]) COVID-19 [facility] 09/09/22 09/10/22 09/10/22 20:23 06:00 06:56 WBC RBC Hgb Hct MCV MCH MCHC RDW Plt Count MPV Immature Gran % (Auto) Neut % (Auto) Lymph % (Auto) [place] % (Auto) Eos % (Auto) Baso % (Auto) Lymph # (Auto) [place] # (Auto) Eos # (Auto) Baso # (Auto) Abs Immat Gran (auto) Absolute Neuts (auto) Absolute Nucleated RBC Nucleated RBC % (auto) ESR Sodium 132 L Potassium 3.4 Chloride 104 Carbon Dioxide 18 L Anion Gap 13 BUN 13 Creatinine 0.83 Estim Creat Clear Calc 133.9 Estimated GFR > 60 POC Glucose 162 H Random Glucose 114 Estimat Average Glucose Hemoglobin A1c % Lactic Acid Calcium 7.6 L C-Reactive Protein Urine Color Yellow Urine Appearance Cloudy Urine pH 6.0 Ur Specific [place]abella 1.015 Urine Protein 30 (1+) H Urine Glucose (UA) Negative Urine Ketones Trace Urine Blood Trace H Urine Nitrite Negative Ur Leukocyte Esterase Negative Urine RBC 0-2 Urine WBC 0-5 Ur Squamous Epith Cells 3-5 Urine Bacteria None Seen Hyaline Casts 0-2 Urine Osmolality Ur Random Sodium Urine Creatinine Vancomycin Trough Random Vancomycin C. difficile Tox B Gene COVID-19 ([facility]) COVID-19 [facility] 09/10/22 09/10/22 09/10/22 07:22 10:15 10:59 WBC RBC Hgb Hct MCV MCH MCHC RDW Plt Count MPV Immature Gran % (Auto) Neut % (Auto) Lymph % (Auto) [place] % (Auto) Eos % (Auto) Baso % (Auto) Lymph # (Auto) [place] # (Auto) Eos # (Auto) Baso # (Auto) Abs Immat Gran (auto) Absolute Neuts (auto) Absolute Nucleated RBC Nucleated RBC % (auto) ESR Sodium Potassium Chloride Carbon Dioxide Anion Gap BUN Creatinine Estim Creat Clear Calc Estimated GFR POC Glucose 124 H 185 H Random Glucose Estimat Average Glucose Hemoglobin A1c % Lactic Acid Calcium C-Reactive Protein Urine Color Urine Appearance Urine pH Ur Specific Isabella Urine Protein Urine Glucose (UA) Urine Ketones Urine Blood Urine Nitrite Ur Leukocyte Esterase Urine RBC Urine WBC Ur Squamous Epith Cells Urine Bacteria Hyaline Casts Urine Osmolality Ur Random Sodium Urine Creatinine Vancomycin Trough Random Vancomycin C. difficile Tox B Gene NEGATIVE COVID-19 ([facility]) COVID-19 Clin Com 09/10/22 09/11/22 09/11/22 21:13 07:02 07:02 WBC RBC Hgb Hct MCV MCH MCHC RDW Plt Count MPV Immature Gran % (Auto) Neut % (Auto) Lymph % (Auto) [place] % (Auto) Eos % (Auto) Baso % (Auto) Lymph # (Auto) [place] # (Auto) Eos # (Auto) Baso # (Auto) Abs Immat Gran (auto) Absolute Neuts (auto) Absolute Nucleated RBC Nucleated RBC % (auto) ESR Sodium Potassium Chloride Carbon Dioxide Anion Gap BUN Creatinine 0.88 Estim Creat Clear Calc 126.3 Estimated GFR > 60 POC Glucose 214 H Random Glucose Estimat Average Glucose Hemoglobin A1c % Lactic Acid Calcium C-Reactive Protein Urine Color Urine Appearance Urine pH Ur Specific Isabella Urine Protein Urine Glucose (UA) Urine Ketones Urine Blood Urine Nitrite Ur Leukocyte Esterase Urine RBC Urine WBC Ur Squamous Epith Cells Urine Bacteria Hyaline Casts Urine Osmolality Ur Random Sodium Urine Creatinine Vancomycin Trough 15.8 Random Vancomycin C. difficile Tox B Gene COVID-19 ([facility]UR[facility]) COVID-19 Clin Com 09/11/22 09/11/22 09/11/22 07:24 08:25 08:25 WBC 21.6 H RBC 2.87 L Hgb 8.0 L Hct 24.1 L MCV 84.0 MCH 27.9 MCHC 33.2 RDW 13.2 Plt Count 323 MPV 9.0 L Immature Gran % (Auto) Neut % (Auto) Lymph % (Auto) Living[place] % (Auto) Eos % (Auto) Baso % (Auto) Lymph # (Auto) [place] # (Auto) Eos # (Auto) Baso # (Auto) Abs Immat Gran (auto) Absolute Neuts (auto) Absolute Nucleated RBC 0.000 Nucleated RBC % (auto) 0.0 ESR Sodium Potassium Chloride Carbon Dioxide Anion Gap BUN Creatinine Estim Creat Clear Calc Estimated GFR POC Glucose 155 H Random Glucose Estimat Average Glucose Hemoglobin A1c % Lactic Acid 0.8 Calcium C-Reactive Protein Urine Color Urine Appearance Urine pH Ur Specific Isabella Urine Protein Urine Glucose (UA) Urine Ketones Urine Blood Urine Nitrite Ur Leukocyte Esterase Urine RBC Urine WBC Ur Squamous Epith Cells Urine Bacteria Hyaline Casts Urine Osmolality Ur Random Sodium Urine Creatinine Vancomycin Trough Random Vancomycin C. difficile Tox B Gene COVID-19 ([facility]URDO) COVID-19 Clin Com 09/11/22 09/11/22 09/11/22 11:04 16:04 21:01 WBC RBC Hgb Hct MCV MCH MCHC RDW Plt Count MPV Immature Gran % (Auto) Neut % (Auto) Lymph % (Auto) Living[place] % (Auto) Eos % (Auto) Baso % (Auto) Lymph # (Auto) [place] # (Auto) Eos # (Auto) Baso # (Auto) Abs Immat Gran (auto) Absolute Neuts (auto) Absolute Nucleated RBC Nucleated RBC % (auto) ESR Sodium Potassium Chloride Carbon Dioxide Anion Gap BUN Creatinine Estim Creat Clear Calc Estimated GFR POC Glucose 126 H 170 H 180 H Random Glucose Estimat Average Glucose Hemoglobin A1c % Lactic Acid Calcium C-Reactive Protein Urine Color Urine Appearance Urine pH Ur Specific Isabella Urine Protein Urine Glucose (UA) Urine Ketones Urine Blood Urine Nitrite Ur Leukocyte Esterase Urine RBC Urine WBC Ur Squamous Epith Cells Urine Bacteria Hyaline Casts Urine Osmolality Ur Random Sodium Urine Creatinine Vancomycin Trough Random Vancomycin C. difficile Tox B Gene COVID-19 ([facility]URDO) COVID-19 [employer] Com 09/12/22 09/12/22 09/12/22 06:59 07:49 07:49 WBC RBC Hgb Hct MCV MCH MCHC RDW Plt Count MPV Immature Gran % (Auto) Neut % (Auto) Lymph % (Auto) [place] % (Auto) Eos % (Auto) Baso % (Auto) Lymph # (Auto) [place] # (Auto) Eos # (Auto) Baso # (Auto) Abs Immat Gran (auto) Absolute Neuts (auto) Absolute Nucleated RBC Nucleated RBC % (auto) ESR Sodium Potassium Chloride Carbon Dioxide Anion Gap BUN Creatinine Cancelled Estim Creat Clear Calc Cancelled Estimated GFR Cancelled POC Glucose 172 H Random Glucose Estimat Average Glucose Hemoglobin A1c % Lactic Acid Calcium C-Reactive Protein Urine Color Urine Appearance Urine pH Ur Specific Isabella Urine Protein Urine Glucose (UA) Urine Ketones Urine Blood Urine Nitrite Ur Leukocyte Esterase Urine RBC Urine WBC Ur Squamous Epith Cells Urine Bacteria Hyaline Casts Urine Osmolality Ur Random Sodium Urine Creatinine Vancomycin Trough Random Vancomycin 15.2 C. difficile Tox B Gene COVID-19 ([facility]DO) COVID-19 [employer] Com 09/12/22 09/12/22 09/12/22 08:09 08:09 11:07 WBC 15.8 H RBC 2.96 L Hgb 8.2 L Hct 24.8 L MCV 83.8 MCH 27.7 MCHC 33.1 RDW 13.3 Plt Count 337 MPV 9.2 L Immature Gran % (Auto) Neut % (Auto) Lymph % (Auto) Living[place] % (Auto) Eos % (Auto) Baso % (Auto) Lymph # (Auto) [place] # (Auto) Eos # (Auto) Baso # (Auto) Abs Immat Gran (auto) Absolute Neuts (auto) Absolute Nucleated RBC 0.000 Nucleated RBC % (auto) 0.0 ESR Sodium 136 Potassium 3.8 Chloride 105 Carbon Dioxide 24 Anion Gap 11 L BUN 8 L Creatinine 0.80 Estim Creat Clear Calc 138.9 Estimated GFR > 60 POC Glucose 163 H Random Glucose 152 H Estimat Average Glucose Hemoglobin A1c % Lactic Acid Calcium 7.8 L C-Reactive Protein Urine Color Urine Appearance Urine pH Ur Specific Isabella Urine Protein Urine Glucose (UA) Urine Ketones Urine Blood Urine Nitrite Ur Leukocyte Esterase Urine RBC Urine WBC Ur Squamous Epith Cells Urine Bacteria Hyaline Casts Urine Osmolality Ur Random Sodium Urine Creatinine Vancomycin Trough Random Vancomycin C. difficile Tox B Gene COVID-19 ([facility]) COVID-19 Clin Com Airway Mallampati Class: II TM Dist: <=3cm Heart: ok Lungs: ok Assessment and Plan Assessment Anesthesia Assessment: Anesthesia Plan Discussed and Chart Reviewed Final Anesthetic Review Family History of Problems with Anesthesia: No History of Problems with Anesthesia: No NPO: Yes ASA Class: IV Final Preanesthetic Review: No Changes in Pt Med Stat, Meds/Allgs Chart Reviewed, Consent Obtained/Reviewed and Anes Risks/Benef Reviewed Patient Risk: High Procedure Risk: Low Anesthetic Plan Anesthetic Plan: GA and Regional Block Disposition: Standard PACU
--- NOTE | 2022-09-12 12:44 | MHC.CM.PN ---
Per MD rounds no discharge today. Patient is scheduled for amputation today. An update has been given to the facility. DP return to [facility] via BLS.
--- NOTE | 2022-09-12 13:31 | HO.PM.IMPN ---
Subjective Subjective Date of Service: 09/12/22 Interval History: f/u on diabetic foot ulcer, osteomylitis (OM) of the foot Review of Systems no pain, s/p ID and drainage 09/08 by surgery- no much improvement, still has leucocytosis , possible going for transmetatarsal amputation Physical Exam Vital Signs: Vital Signs: Last Vital Signs Temp 98.4 F 09/12/22 12:20 Pulse 69 09/12/22 12:20 Resp 18 09/12/22 12:20 BP 144/74 H 09/12/22 12:20 Pulse Ox 94 09/12/22 12:20 O2 Del Method 09/12/22 12:20 O2 Flow Rate 2 09/10/22 15:33 BMI result Body Mass Index 40.4 Appearance: Alert.? Oriented X3.? not in distress.? cvs: rrr, [id number] , no murmur res: clear to auscultation ,no rhonchii or wheezing abd: no rebound or guarding ,nt, bs present. ext: Wounds foot-? Decreased purulent discharge noted today; mild erythema remains.possible ? Gangrene of 5th toe stable.? neuro: axo3 , nonfocal. Objective Data Active Medications Acetaminophen (Acetaminophen 325 Mg Tablet) 650 mg PO Q6H PRN PRN Reason: Pain, Mild (Pain Scale 1-3) Ezetimibe (Ezetimibe 10 Mg Tablet) 10 mg PO DAILY [facility] Last Admin: 09/12/22 10:14 Dose: Not Given Documented By: MAMI Non-Admin Reason: NPO Escitalopram Oxalate (Escitalopram Oxalate 10 Mg Tablet) 10 mg PO DAILY [facility] [place] Last Admin: 09/12/22 10:14 Dose: Not Given Documented By: MAMI Non-Admin Reason: NPO Fenofibrate (Fenofibrate 54 Mg Tablet) 54 mg PO DAILY [facility] [place] Last Admin: 09/12/22 10:14 Dose: Not Given Documented By: MAMI Non-Admin Reason: NPO Fentanyl (Fentanyl Citrate/Pf 100 Mcg/2 Ml Vial) 50 mcg IVPUSH Q5M PRN; Protocol PRN Reason: Pain, Severe (Pain Scale 7-10) Gabapentin (Gabapentin 100 Mg Capsule) 100 mg PO Q8H [facility] Last Admin: 09/12/22 00:26 Dose: Not Given Documented By: OC Non-Admin Reason: NPO Glucose (Glucose Gel 15 Gm Gel..Gram.) 15 gm PO Q15M PRN; Protocol PRN Reason: per Hypoglycemia Standing Ord. Heparin Sodium (Porcine) (Heparin Sodium,Porcine 5,000 Unit/Ml Vial) 5,000 unit SUBCUT Q12H [facility] Last Admin: 09/11/22 07:46 Dose: 5,000 unit Documented By: MERRY Heparin Sodium (Porcine) (Heparin Sodium,Porcine Flush 50 Units/5 Ml Syringe) 50 units IVFLUSH QSHIFT [facility] Last Admin: 09/12/22 08:16 Dose: 50 units Documented By: MAMI Hydromorphone HCl (Hydromorphone Hcl 0.5 Mg/0.5 Ml Syringe) 0.5 mg IVPUSH Q5M PRN; Protocol PRN Reason: Pain, Severe (Pain Scale 7-10) Dextrose (D10) 250 mls @ 750 mls/hr IV Q15M PRN; Protocol PRN Reason: per Hypoglycemia Standing Ord. Vancomycin HCl 1,000 mg/ (Sodium Chloride) 270 mls @ 270 mls/hr IV Q12H [facility] Last Infusion: 09/12/22 10:34 Dose: 0 mls/hr Documented By: MAMI Insulin Glargine (Insulin Glargine,Hum.Rec.Anlog 100 Unit/Ml 10 Ml Vial) 21 unit SUBCUT DAILY [facility] Last Admin: 09/11/22 07:44 Dose: 21 unit Documented By: MERRY Insulin Human Lispro (Insulin Lispro 100 Unit/Ml 3 Ml Vial) 0 unit SUBCUT QIDACHS [facility]; Protocol Last Admin: 09/12/22 08:17 Dose: 2 unit Documented By: MAMI Levothyroxine Sodium (Levothyroxine Sodium 150 Mcg Tablet) 150 mcg PO DAILY@0600 [facility] Last Admin: 09/12/22 00:26 Dose: Not Given Documented By: OC Non-Admin Reason: NPO Loperamide HCl (Loperamide Hcl Oral Liquid 2 Mg/15 Ml Liquid) 2 mg PO Q6H PRN PRN Reason: Diarrhea Non-Formulary Medication (Simvastatin) 40 mg PO DAILY [facility] Ondansetron HCl (Ondansetron Hcl 4 Mg/2 Ml Vial) 4 mg IVPUSH Q8H PRN PRN Reason: Nausea and Vomiting Pharmacy Consult (Consult Rx Perform Med Rec) 1 each MISCELLANE ONCE PRN PRN Reason: Consult order Pharmacy Consult (Consult Rx Vancomycin Dosing) 1 each MISCELLANE DAILY PRN PRN Reason: Consult order Pharmacy Consult (Consult Rx Vancomycin Dosing) 1 each MISCELLANE DAILY PRN PRN Reason: Consult order Sodium Chloride (0.9 % Sodium Chloride Flush 3 Ml Syringe) 3 ml IVFLUSH QSHIFT [facility] [place] Last Admin: 09/12/22 08:18 Dose: 3 ml Documented By: MAMI Vitamin D (Cholecalciferol (Vitamin D3) 25 Mcg Tablet) 50 mcg PO DAILY [facility] [place] Last Admin: 09/12/22 10:14 Dose: Not Given Documented By: MAMI Non-Admin Reason: NPO Labs 09/12/22 08:09 09/12/22 08:09 Labs: Laboratory Results - last 24 hr 09/11/22 09/11/22 09/12/22 16:04 21:01 06:59 MCV MCH MCHC RDW Plt Count MPV Absolute Nucleated RBC Nucleated RBC % (auto) Anion Gap Estim Creat Clear Calc Estimated GFR POC Glucose 170 H 180 H 172 H Random Glucose Calcium Random Vancomycin 09/12/22 09/12/22 09/12/22 07:49 07:49 08:09 MCV MCH MCHC RDW Plt Count MPV Absolute Nucleated RBC Nucleated RBC % (auto) Anion Gap 11 L Estim Creat Clear Calc Cancelled 138.9 Estimated GFR Cancelled > 60 POC Glucose Random Glucose 152 H Calcium 7.8 L Random Vancomycin 15.2 09/12/22 09/12/22 08:09 11:07 MCV 83.8 MCH 27.7 MCHC 33.1 RDW 13.3 Plt Count 337 MPV 9.2 L Absolute Nucleated RBC 0.000 Nucleated RBC % (auto) 0.0 Anion Gap Estim Creat Clear Calc Estimated GFR POC Glucose 163 H Random Glucose Calcium Random Vancomycin Microbiology Microbiology Results: Microbiology 09/07/22 09:42 Blood Culture - Final Blood - Venous No growth after 5 days. 09/07/22 09:09 Blood Culture - Final Blood - Venous No growth after 5 days. 09/11/22 07:02 Blood Culture - Preliminary Blood - Venous No growth after 24 hours. 09/11/22 07:02 Blood Culture - Preliminary Blood - Venous Prelim: GPC Gram Stain only Assessment and Plan (1) JJ (acute kidney injury): Status: Acute (2) Diabetic foot ulcer: Status: Acute (3) Osteomyelitis: Status: Acute Plan 52-year-old male with history of insulin-dependent type 2 diabetes, hypothyroidism, hyperlipidemia, hypertension, congestive heart failure, proteinuria, and nonhealing diabetic left foot ulcer who is morbidly obese admitted for nonhealing diabetic foot ulcer of the right foot with cellulitis and question of osteomyelitis. #Sepsis, WBC is still high #gram positive cocci bactermia (MRSA and E. Feacalis) #Osteomylitis of R 4th and 5th metatarsophalangeal joints on MRI # nonhealing right diabetic foot ulcer with cellulitis and abscless s/p I&D by dr. Dempsey on 09/08 -recently completed 6 weeks IV ertapenem on 08/10 with recent discharge from [facility] on 06/29.? MRI at that time negative for osteomyelitis, but extended antibiotics recommended by ID. -ESR 112, CRP 25 -x-ray of right foot negative for any bony erosions or periosteal thickening but showing soft tissue swelling has known PAD but no recent arterial imaging.? Arterial Doppler normal flow blood culture :06/25 :gram positive cocci/clusters. -continue IV vancomycin -seen by Id and surgery:less likely to improve , need amputation , continue antibiotics for now. further use of antibiotics will be decided after surgery. acute kidney injury-likely related to hypovolemia, resolved with IVF acute hypOnatremia-likely related to hypovolemia and thiazide diuretic use improved. Hold thiazide diuretics. insulin-dependent type 2 diabetes with hyperglycemia -hemoglobin A1c 7.7 -continue basal insulin -Humalog on sliding scale -POC glucose -diabetic diet hypertension-continue home meds hypOthyroidism-continue levothyroxine hyperlipidemia-continue Zetia and statin Congestive heart failure, ejection fraction unspecified-euvolemic appearing, no acute exacerbation. DVT prophylaxis-heparin Full code need for ipatient: IV Abx for OM, awaiting culture and longter IV Abx plans,need surgery . Time Spent With Patient Time: Total time managing care of this patient today ____ minutes. Quality Stroke Does the patient have a stroke diagnosis?: No VTE Prior VTE?: No VTE Risk Level:: Medical - moderate - high VTE Device Contraindication: Treatment Not Indicated VTE Drug Contraindication: N/A - Med Ordered
[2022-09-12 14:06] VITALS: BP 124/61; PULSE 63; RESP 16; TEMP 36.6; O2SAT 99
--- NOTE | 2022-09-12 14:17 | W.PM.OPN ---
Operative Note Operative Note Date of Service: 09/12/22 Narrative: Preoperative diagnosis: Gangrene and abscess right foot Postoperative diagnosis: Same Procedure: Right foot transmetatarsal amputation Surgeon: Bao Dempsey MD Clerical Warehouseman: Sherly Olea PA-C, Zulma Christensen p.a.-C Anesthesia: Mac, ankle block Indications for procedure: 52-year-old male patient with diabetes and abscess of the right foot involving the plantar surface in multiple locations as well as gangrenous 5th toe. Patient has been on IV antibiotics and incision and drainage of the abscess is been performed however patient continues to have an elevated WBC. He presents today for transmetatarsal amputation. Operative findings: Abscess collection located in the plantar surface of the foot. Large collection of abscess drained. Transmetatarsal amputation performed however because of the abscess the wounds could not be closed. Wounds were packed with Betadine followed by dry sterile dressing. Patient will eventually need VAC placement and possible skin graft Specimen: Transmetatarsal amputation right foot Estimated blood loss: 100 mL Complications: None Procedure details: Patient was brought to the OR and placed in a supine position. After administering light sedation and ankle block was performed by Dr. Valentin. The right foot was prepped with Betadine and draped in a sterile fashion. A surgical time-out was called and the consent confirmed. Patient received preoperative antibiotics and Venodyne boots were in place on the left leg. A circular incision was made to include the area of abscess in the mid plantar surface of the right foot extending up along the anterior surface of the foot to include the gangrenous base of the 5th toe. Incision was carried down through subcutaneous tissue down to the mid metatarsals 1 through 5. Electrocautery was then used to obtain hemostasis. Digital vessels were ligated using 3-0 Polysorb sutures. A periosteal elevator was then used to mobilize the periosteum circumferentially. When the periosteum was completely cleared proximally bone saw was used to divide each of the 5 toes at the mid metatarsal level. The specimen was removed and sent to pathology for further examination. Hemostasis was again assured using suture ligature of 3-0 Polysorb suture and electrocautery. Wounds were then thoroughly irrigated using the Pulsavac. No residual abscess could be identified. Wounds were then dressed using a Betadine soaked gauze followed by fluff gauze, ABD pad, Kerlix and Nixon bandage. The patient tolerated the procedure well. Sponge, instrument, and needle counts were reported as correct. The patient was transferred to PACU in stable condition.
[2022-09-12 14:21] VITALS: BP 140/69; PULSE 64; RESP 16; O2SAT 99
[2022-09-12 16:16] LABS: Glucose, Whole Blood 144 mg/dL (60-115)
[2022-09-12] MEDS: Gabapentin 100 MG CAPSULE PO (20:05)
[2022-09-12 20:46] LABS: Glucose, Whole Blood 193 mg/dL (60-115)
[2022-09-13] MEDS: Heparin Sodium,Porcine Flush 50 UNITS/5 ML SYRINGE IVFLUSH ×4 (00:32→23:18)
[2022-09-13] MEDS: Gabapentin 100 MG CAPSULE PO ×3 (03:40→22:08)
[2022-09-13 03:47] VITALS: BP 155/79; PULSE 72; RESP 16; TEMP 36.2; O2SAT 92
[2022-09-13] MEDS: Levothyroxine Sodium 150 MCG TABLET PO (06:51)
[2022-09-13 07:26] LABS: Glucose, Whole Blood 205 mg/dL (60-115)
[2022-09-13] MEDS: Ezetimibe 10 MG TABLET PO (07:41)
[2022-09-13] MEDS: Fenofibrate 54 MG TABLET PO (07:41)
[2022-09-13] MEDS: Escitalopram Oxalate 10 MG TABLET PO (07:41)
[2022-09-13] MEDS: Cholecalciferol (Vitamin D3) 25 MCG TABLET 50 MCG PO (07:41)
[2022-09-13] MEDS: Insulin Lispro 100 UNIT/ML 3 ML VIAL SUBCUT ×3 (07:42→16:48)
[2022-09-13] MEDS: vancomycin HCL 1,000 MG in 0.9 % Sodium Chloride 250 ML 270 MG IV ×2 (07:42→22:14)
[2022-09-13] MEDS: 0.9 % Sodium Chloride Flush 3 ML SYRINGE IVFLUSH ×3 (07:43→22:08)
--- NOTE | 2022-09-13 08:23 | PM.PNGS ---
Subjective Subjective Date of Service: 09/13/22 Interval history: Patient with no complaints this morning, denies foot pain. Physical Exam Vital Signs: Vital Signs: Last Vital Signs Temp 97.2 F 09/13/22 03:47 Pulse 72 09/13/22 03:47 Resp 16 09/13/22 03:47 BP 155/79 H 09/13/22 03:47 Pulse Ox 92 09/13/22 03:47 O2 Del Method Room Air 09/13/22 03:47 O2 Flow Rate 2 09/10/22 15:33 BMI result Body Mass Index 40.4 Const: General: no acute distress Nutritional Appearance: well nourished Orientation/consciousness: patient oriented x3 Limitations: no limitations Resp: Effort & Inspection: normal respiratory effort Skin: General skin exam: no rashes or lesions noted Neuro: General: patient oriented x3 Extrem: Other: Dressings changed to the right foot. Wounds are clean without evidence of abscess, purulent discharge. Some granulation tissue developing margins. No necrotic tissue identified. No active bleeding. Silver alginate applied followed by dry sterile dressings. Patient tolerated dressing change well. Objective Data Active Medications Acetaminophen (Acetaminophen 325 Mg Tablet) 650 mg PO Q6H PRN PRN Reason: Pain, Mild (Pain Scale 1-3) Ezetimibe (Ezetimibe 10 Mg Tablet) 10 mg PO DAILY [facility] Last Admin: 09/13/22 07:41 Dose: 10 mg Documented By: MAMI Escitalopram Oxalate (Escitalopram Oxalate 10 Mg Tablet) 10 mg PO DAILY [facility] Last Admin: 09/13/22 07:41 Dose: 10 mg Documented By: MAMI Fenofibrate (Fenofibrate 54 Mg Tablet) 54 mg PO DAILY [facility] [place] Last Admin: 09/13/22 07:41 Dose: 54 mg Documented By: MAMI Gabapentin (Gabapentin 100 Mg Capsule) 100 mg PO Q8H [facility] Last Admin: 09/13/22 03:40 Dose: 100 mg Documented By: MELINDA Glucose (Glucose Gel 15 Gm Gel..Gram.) 15 gm PO Q15M PRN; Protocol PRN Reason: per Hypoglycemia Standing Ord. Heparin Sodium (Porcine) (Heparin Sodium,Porcine 5,000 Unit/Ml Vial) 5,000 unit SUBCUT Q12H [facility] Last Admin: 09/11/22 07:46 Dose: 5,000 unit Documented By: MERRY Heparin Sodium (Porcine) (Heparin Sodium,Porcine Flush 50 Units/5 Ml Syringe) 50 units IVFLUSH QSHIFT [facility] [place] Last Admin: 09/13/22 07:41 Dose: 50 units Documented By: MAMI Hydromorphone HCl (Hydromorphone Hcl 0.5 Mg/0.5 Ml Syringe) 0.5 mg IVPUSH Q3H PRN; Protocol PRN Reason: Pain, Severe (Pain Scale 7-10) Dextrose (D10) 250 mls @ 750 mls/hr IV Q15M PRN; Protocol PRN Reason: per Hypoglycemia Standing Ord. Vancomycin HCl 1,000 mg/ (Sodium Chloride) 270 mls @ 270 mls/hr IV Q12H [facility] Last Admin: 09/13/22 07:42 Dose: 270 mls/hr Documented By: MAMI Insulin Glargine (Insulin Glargine,Hum.Rec.Anlog 100 Unit/Ml 10 Ml Vial) 21 unit SUBCUT DAILY [facility] [place] Last Admin: 09/11/22 07:44 Dose: 21 unit Documented By: MERRY Insulin Human Lispro (Insulin Lispro 100 Unit/Ml 3 Ml Vial) 0 unit SUBCUT QIDACHS [facility] [place]; Protocol Last Admin: 09/13/22 07:42 Dose: 4 unit Documented By: MAMI Levothyroxine Sodium (Levothyroxine Sodium 150 Mcg Tablet) 150 mcg PO DAILY@0600 [facility] Last Admin: 09/13/22 06:51 Dose: 150 mcg Documented By: MELINDA Loperamide HCl (Loperamide Hcl Oral Liquid 2 Mg/15 Ml Liquid) 2 mg PO Q6H PRN PRN Reason: Diarrhea Non-Formulary Medication (Simvastatin) 40 mg PO DAILY [facility] Ondansetron HCl (Ondansetron Hcl 4 Mg/2 Ml Vial) 4 mg IVPUSH Q8H PRN PRN Reason: Nausea and Vomiting Oxycodone HCl (Oxycodone Hcl Immed Release 5 Mg Tablet) 5 mg PO Q4H PRN PRN Reason: Pain, Moderate (Pain Scale 4-6 Pharmacy Consult (Consult Rx Perform Med Rec) 1 each MISCELLANE ONCE PRN PRN Reason: Consult order Pharmacy Consult (Consult Rx Vancomycin Dosing) 1 each MISCELLANE DAILY PRN PRN Reason: Consult order Pharmacy Consult (Consult Rx Vancomycin Dosing) 1 each MISCELLANE DAILY PRN PRN Reason: Consult order Sodium Chloride (0.9 % Sodium Chloride Flush 3 Ml Syringe) 3 ml IVFLUSH QSHIFT [facility] Last Admin: 09/13/22 07:43 Dose: 3 ml Documented By: MAMI Vitamin D (Cholecalciferol (Vitamin D3) 25 Mcg Tablet) 50 mcg PO DAILY [facility] Last Admin: 09/13/22 07:41 Dose: 50 mcg Documented By: MAMI Labs 09/12/22 08:09 09/12/22 08:09 Labs: Laboratory Results - last 24 hr 09/12/22 09/12/22 09/12/22 07:49 07:49 08:09 MCV MCH MCHC RDW Plt Count MPV Absolute Nucleated RBC Nucleated RBC % (auto) Anion Gap 11 L Estim Creat Clear Calc Cancelled 138.9 Estimated GFR Cancelled > 60 POC Glucose Random Glucose 152 H Calcium 7.8 L Random Vancomycin 15.2 09/12/22 09/12/22 09/12/22 08:09 11:07 16:12 MCV 83.8 MCH 27.7 MCHC 33.1 RDW 13.3 Plt Count 337 MPV 9.2 L Absolute Nucleated RBC 0.000 Nucleated RBC % (auto) 0.0 Anion Gap Estim Creat Clear Calc Estimated GFR POC Glucose 163 H 144 H Random Glucose Calcium Random Vancomycin 09/12/22 09/13/22 20:30 07:07 MCV MCH MCHC RDW Plt Count MPV Absolute Nucleated RBC Nucleated RBC % (auto) Anion Gap Estim Creat Clear Calc Estimated GFR POC Glucose 193 H 205 H Random Glucose Calcium Random Vancomycin Microbiology Microbiology Results: Microbiology 09/07/22 09:42 Blood Culture - Final Blood - Venous No growth after 5 days. 09/07/22 09:09 Blood Culture - Final Blood - Venous No growth after 5 days. 09/11/22 07:02 Blood Culture - Preliminary Blood - Venous No growth after 24 hours. 09/11/22 07:02 Blood Culture - Preliminary Blood - Venous Prelim: GPC Gram Stain only Procedures Date of Service Date of Service: 09/13/22 Progress Note: A&P Assessment and plan (1) Abscess: Status: Acute (2) Diabetic foot ulcer: Status: Acute (3) Osteomyelitis: Status: Acute Plan Pod 1 following transmetatarsal amputation. Wound unable to be closed due to abscess and extent of disease. Dressing change today is encouraging and the wounds overall look improved. Silver alginate applied to wound. Plan to switch to wound VAC tomorrow with possible future skin graft if necessary. Time Spent With Patient Time: Total time managing care of this patient today ____ minutes. Quality Stroke Does the patient have a stroke diagnosis?: No VTE Prior VTE?: No VTE Risk Level:: Medical - moderate - high VTE Device Contraindication: Treatment Not Indicated VTE Drug Contraindication: N/A - Med Ordered
[2022-09-13 09:39] LABS: Creatinine Clr Calc Pharmacy 137.2; Estimated Glomerular Filt Rate > 60
--- NOTE | 2022-09-13 09:44 | HO.POSTANES ---
Post Anesthesia Evaluation Post Anesthesia Evaluation Vital Signs: Vital Signs Temp Pulse Resp BP Pulse Ox O2 Del Method 09/13/22 03:47 97.2 F 72 16 155/79 H 92 Room Air Anesthesia: TIVA Mental Status: Awake Pain Control: Satisfactory Nausea/Vomiting: None Hydration: Adequate Anesthesia-Related Issues: No Anes. Related Issues
[2022-09-13 11:42] LABS: Glucose, Whole Blood 210 mg/dL (60-115)
--- NOTE | 2022-09-13 15:05 | P.PNIM_ITS ---
Subjective Subjective Date of Service: 09/13/22 Interval History: f/u on diabetic foot ulcer, osteomylitis (OM) of the foot Review of Systems no pain, s/p ID and drainage 09/08 by surgery- no much improvement, still has leucocytosis , possible going for? transmetatarsal amputation Physical Exam Vital Signs: Vital Signs: Last Vital Signs Temp 97.2 F 09/13/22 03:47 Pulse 72 09/13/22 03:47 Resp 16 09/13/22 03:47 BP 155/79 H 09/13/22 03:47 Pulse Ox 92 09/13/22 03:47 O2 Del Method Room Air 09/13/22 03:47 O2 Flow Rate 2 09/10/22 15:33 BMI result Body Mass Index 40.4 Appearance: Alert.? Oriented X3.? not in distress.? cvs: [id number], [id number] , no murmur res: clear to auscultation ,no rhonchii or wheezing abd: no rebound or guarding ,nt, bs present. ext: Wounds foot-? Decreased purulent discharge noted today; mild erythema remains.possible ? Gangrene of 5th toe stable.? neuro: axo3 , nonfocal. Objective Data Active Medications Acetaminophen (Acetaminophen 325 Mg Tablet) 650 mg PO Q6H PRN PRN Reason: Pain, Mild (Pain Scale 1-3) Ezetimibe (Ezetimibe 10 Mg Tablet) 10 mg PO DAILY [facility] Last Admin: 09/13/22 07:41 Dose: 10 mg Documented By: MAMI Escitalopram Oxalate (Escitalopram Oxalate 10 Mg Tablet) 10 mg PO DAILY [facility] Last Admin: 09/13/22 07:41 Dose: 10 mg Documented By: MAMI Fenofibrate (Fenofibrate 54 Mg Tablet) 54 mg PO DAILY [facility] Last Admin: 09/13/22 07:41 Dose: 54 mg Documented By: MAMI Gabapentin (Gabapentin 100 Mg Capsule) 100 mg PO Q8H [facility] Last Admin: 09/13/22 12:25 Dose: 100 mg Documented By: MAMI Glucose (Glucose Gel 15 Gm Gel..Gram.) 15 gm PO Q15M PRN; Protocol PRN Reason: per Hypoglycemia Standing Ord. Heparin Sodium (Porcine) (Heparin Sodium,Porcine 5,000 Unit/Ml Vial) 5,000 unit SUBCUT Q12H [facility] Last Admin: 09/11/22 07:46 Dose: 5,000 unit Documented By: MERRY Heparin Sodium (Porcine) (Heparin Sodium,Porcine Flush 50 Units/5 Ml Syringe) 50 units IVFLUSH QSHIFT [facility] Last Admin: 09/13/22 07:41 Dose: 50 units Documented By: MAMI Hydromorphone HCl (Hydromorphone Hcl 0.5 Mg/0.5 Ml Syringe) 0.5 mg IVPUSH Q3H PRN; Protocol PRN Reason: Pain, Severe (Pain Scale 7-10) Dextrose (D10) 250 mls @ 750 mls/hr IV Q15M PRN; Protocol PRN Reason: per Hypoglycemia Standing Ord. Vancomycin HCl 1,000 mg/ (Sodium Chloride) 270 mls @ 270 mls/hr IV Q12H [facility] Last Infusion: 09/13/22 09:30 Dose: 0 mls/hr Documented By: MAMI Insulin Glargine (Insulin Glargine,Hum.Rec.Anlog 100 Unit/Ml 10 Ml Vial) 21 unit SUBCUT DAILY [facility] Last Admin: 09/11/22 07:44 Dose: 21 unit Documented By: MERRY Insulin Human Lispro (Insulin Lispro 100 Unit/Ml 3 Ml Vial) 0 unit SUBCUT QIDACHS [facility]; Protocol Last Admin: 09/13/22 12:25 Dose: 4 unit Documented By: MAMI Levothyroxine Sodium (Levothyroxine Sodium 150 Mcg Tablet) 150 mcg PO DAILY@0600 [facility] Last Admin: 09/13/22 06:51 Dose: 150 mcg Documented By: MELINDA Loperamide HCl (Loperamide Hcl Oral Liquid 2 Mg/15 Ml Liquid) 2 mg PO Q6H PRN PRN Reason: Diarrhea Non-Formulary Medication (Simvastatin) 40 mg PO DAILY [facility] Ondansetron HCl (Ondansetron Hcl 4 Mg/2 Ml Vial) 4 mg IVPUSH Q8H PRN PRN Reason: Nausea and Vomiting Oxycodone HCl (Oxycodone Hcl Immed Release 5 Mg Tablet) 5 mg PO Q4H PRN PRN Reason: Pain, Moderate (Pain Scale 4-6 Pharmacy Consult (Consult Rx Perform Med Rec) 1 each MISCELLANE ONCE PRN PRN Reason: Consult order Pharmacy Consult (Consult Rx Vancomycin Dosing) 1 each MISCELLANE DAILY PRN PRN Reason: Consult order Pharmacy Consult (Consult Rx Vancomycin Dosing) 1 each MISCELLANE DAILY PRN PRN Reason: Consult order Sodium Chloride (0.9 % Sodium Chloride Flush 3 Ml Syringe) 3 ml IVFLUSH QSHIFT [facility] Last Admin: 09/13/22 07:43 Dose: 3 ml Documented By: MAMI Vitamin D (Cholecalciferol (Vitamin D3) 25 Mcg Tablet) 50 mcg PO DAILY [facility] Last Admin: 09/13/22 07:41 Dose: 50 mcg Documented By: MAMI Labs 09/12/22 08:09 09/13/22 08:42 Labs: Laboratory Results - last 24 hr 09/12/22 09/12/22 09/13/22 16:12 20:30 07:07 Estim Creat Clear Calc Estimated GFR POC Glucose 144 H 193 H 205 H 09/13/22 09/13/22 08:42 11:38 Estim Creat Clear Calc 137.2 Estimated GFR > 60 POC Glucose 210 H Microbiology Microbiology Results: Microbiology 09/11/22 07:02 Blood Culture - Preliminary Blood - Venous Staphylococcus aureus 09/11/22 07:02 Blood Culture - Preliminary Blood - Venous No growth after 48 hours. 09/07/22 09:42 Blood Culture - Final Blood - Venous No growth after 5 days. 09/07/22 09:09 Blood Culture - Final Blood - Venous No growth after 5 days. Assessment and Plan (1) JJ (acute kidney injury): Status: Acute (2) Diabetic foot ulcer: Status: Acute (3) Osteomyelitis: Status: Acute Plan 52-year-old male with history of insulin-dependent type 2 diabetes, hypoth yroidism, hyperlipidemia, hypertension, congestive heart failure, proteinuria, and nonhealing diabetic left foot ulcer who is morbidly obese admitted for nonhealing diabetic foot ulcer of the right foot with cellulitis and question of osteomyelitis. #Sepsis, WBC is still high #gram positive cocci bactermia (MRSA and E. Feacalis) #Osteomylitis of R 4th and 5th metatarsophalangeal joints on MRI # nonhealing right diabetic foot ulcer with cellulitis and abscless s/p I&D by ben Dempsey on 3/18 -recently completed 6 weeks IV ertapenem on 08/10 with recent discharge from [facility] on 06/29.? MRI at that time negative for osteomyelitis, but extended antibiotics recommended by ID. -ESR 112, CRP 25 -x-ray of right foot negative for any bony erosions or periosteal thickening but showing soft tissue swelling has known PAD but no recent arterial imaging.? Arterial Doppler normal flow blood culture :06/25 :gram positive cocci/clusters. -continue IV vancomycin -seen by Id and surgery:less likely to improve , need amputation , continue antibiotics for now. further use of antibiotics will be decided after surgery. acute kidney injury-likely related to hypovolemia, resolved with IVF acute hypOnatremia-likely related to hypovolemia and thiazide diuretic use improved. Hold thiazide diuretics. insulin-dependent type 2 diabetes with hyperglycemia -hemoglobin A1c 7.7 -continue basal insulin -Humalog on sliding scale -POC glucose -diabetic diet hypertension-continue home meds hypOthyroidism-continue levothyroxine hyperlipidemia-continue Zetia and statin Congestive heart failure, ejection fraction unspecified-euvolemic appearing, no acute exacerbation. DVT prophylaxis-heparin Full code need for ipatient: IV Abx for OM, awaiting culture and longter IV Abx plans,need surgery . Time Spent With Patient Time: Total time managing care of this patient today ____ minutes. Quality Stroke Does the patient have a stroke diagnosis?: No VTE Prior VTE?: No VTE Risk Level:: Medical - moderate - high VTE Device Contraindication: Treatment Not Indicated VTE Drug Contraindication: N/A - Med Ordered
[2022-09-13 16:08] VITALS: BP 139/72; PULSE 71; RESP 18; TEMP 36.6; O2SAT 97
[2022-09-13 16:30] LABS: Glucose, Whole Blood 207 mg/dL (60-115)
[2022-09-13 19:40] VITALS: BP 136/64; PULSE 77; RESP 18; TEMP 36.8; O2SAT 92
[2022-09-13 20:35] LABS: Glucose, Whole Blood 180 mg/dL (60-115)
[2022-09-13 21:53] LABS: Vancomycin Trough 13.1 mcg/mL (10.0-20.0)
[2022-09-13] MEDS: Heparin Sodium,Porcine 5,000 UNIT/ML VIAL 5000 UNIT SUBCUT (22:08)
[2022-09-14] MEDS: Gabapentin 100 MG CAPSULE PO ×3 (05:17→20:04)
[2022-09-14] MEDS: Levothyroxine Sodium 150 MCG TABLET PO (05:17)
[2022-09-14 07:16] LABS: Glucose, Whole Blood 214 mg/dL (60-115)
[2022-09-14 07:40] VITALS: BP 155/76; PULSE 72; RESP 16; TEMP 37.3; O2SAT 91
--- NOTE | 2022-09-14 07:40 | PM.PNGS ---
Subjective Subjective Date of Service: 09/14/22 Interval history: Patient continues to feel well with no new complaints; denies foot pain Physical Exam Vital Signs: Vital Signs: Last Vital Signs Temp 98.3 F 09/13/22 19:40 Pulse 77 09/13/22 19:40 Resp 18 09/13/22 19:40 BP 136/64 09/13/22 19:40 Pulse Ox 92 09/13/22 19:40 O2 Del Method Room Air 09/13/22 19:40 O2 Flow Rate 2 09/10/22 15:33 BMI result Body Mass Index 40.4 Const: General: comfortable Nutritional Appearance: well nourished Orientation/consciousness: patient oriented x3 Limitations: no limitations Resp: Effort & Inspection: normal respiratory effort Neuro: General: patient oriented x3 Extrem: Other: dressings intact with some bloody discharge on STACY bandage. Objective Data Active Medications Acetaminophen (Acetaminophen 325 Mg Tablet) 650 mg PO Q6H PRN PRN Reason: Pain, Mild (Pain Scale 1-3) Ezetimibe (Ezetimibe 10 Mg Tablet) 10 mg PO DAILY COUNTS [facility]CLUDE [facility] BEDS AT [facility] Last Admin: 09/13/22 07:41 Dose: 10 mg Documented By: MAMI Escitalopram Oxalate (Escitalopram Oxalate 10 Mg Tablet) 10 mg PO DAILY COUNTS [facility]CLUDE 234 BEDS AT THE [facility] Last Admin: 09/13/22 07:41 Dose: 10 mg Documented By: MAMI Fenofibrate (Fenofibrate 54 Mg Tablet) 54 mg PO DAILY COUNTS [facility]CLUDE 234 BEDS AT THE [facility] Last Admin: 09/13/22 07:41 Dose: 54 mg Documented By: MAMI Gabapentin (Gabapentin 100 Mg Capsule) 100 mg PO Q8H COUNTS INCLUDE 234 BEDS AT THE [facility] Last Admin: 09/14/22 05:17 Dose: 100 mg Documented By: JORGE Glucose (Glucose Gel 15 Gm Gel..Gram.) 15 gm PO Q15M PRN; Protocol PRN Reason: per Hypoglycemia Standing Ord. Heparin Sodium (Porcine) (Heparin Sodium,Porcine 5,000 Unit/Ml Vial) 5,000 unit SUBCUT Q12H COUNTS INCLUDE 234 BEDS AT THE [facility] Last Admin: 09/13/22 22:08 Dose: 5,000 unit Documented By: LILIA Heparin Sodium (Porcine) (Heparin Sodium,Porcine Flush 50 Units/5 Ml Syringe) 50 units IVFLUSH QSHIFT COUNTS INCLUDE 234 BEDS AT THE [facility] Last Admin: 09/13/22 23:18 Dose: 50 units Documented By: JORGE Hydromorphone HCl (Hydromorphone Hcl 0.5 Mg/0.5 Ml Syringe) 0.5 mg IVPUSH Q3H PRN; Protocol PRN Reason: Pain, Severe (Pain Scale 7-10) Dextrose (D10) 250 mls @ 750 mls/hr IV Q15M PRN; Protocol PRN Reason: per Hypoglycemia Standing Ord. Vancomycin HCl 1,000 mg/ (Sodium Chloride) 270 mls @ 270 mls/hr IV Q12H COUNTS INCLUDE 234 BEDS AT THE [facility] Last Infusion: 09/13/22 23:21 Dose: 0 mls/hr Documented By: JORGE Insulin Glargine (Insulin Glargine,Hum.Rec.Anlog 100 Unit/Ml 10 Ml Vial) 21 unit SUBCUT DAILY COUNTS INCLUDE 234 BEDS AT [facility] Last Admin: 09/11/22 07:44 Dose: 21 unit Documented By: MERRY Insulin Human Lispro (Insulin Lispro 100 Unit/Ml 3 Ml Vial) 0 unit SUBCUT QIDACHS COUNTS INCLUDE 234 BEDS AT THE [facility]; Protocol Last Admin: 09/13/22 21:55 Dose: Not Given Documented By: LILIA Non-Admin Reason: No Insulin Coverage Levothyroxine Sodium (Levothyroxine Sodium 150 Mcg Tablet) 150 mcg PO DAILY@0600 COUNTS INCLUDE 234 BEDS AT THE [facility] Last Admin: 09/14/22 05:17 Dose: 150 mcg Documented By: JORGE Loperamide HCl (Loperamide Hcl Oral Liquid 2 Mg/15 Ml Liquid) 2 mg PO Q6H PRN PRN Reason: Diarrhea Non-Formulary Medication (Simvastatin) 40 mg PO DAILY COUNTS INCLUDE 234 BEDS AT THE [facility] Ondansetron HCl (Ondansetron Hcl 4 Mg/2 Ml Vial) 4 mg IVPUSH Q8H PRN PRN Reason: Nausea and Vomiting Oxycodone HCl (Oxycodone Hcl Immed Release 5 Mg Tablet) 5 mg PO Q4H PRN PRN Reason: Pain, Moderate (Pain Scale 4-6 Pharmacy Consult (Consult Rx Perform Med Rec) 1 each MISCELLANE ONCE PRN PRN Reason: Consult order Sodium Chloride (0.9 % Sodium Chloride Flush 3 Ml Syringe) 3 ml IVFLUSH QSHIFT COUNTS INCLUDE 234 BEDS AT THE [facility] Last Admin: 09/13/22 22:08 Dose: 3 ml Documented By: LILIA Vitamin D (Cholecalciferol (Vitamin D3) 25 Mcg Tablet) 50 mcg PO DAILY [facility] Last Admin: 09/13/22 07:41 Dose: 50 mcg Documented By: MAMI Labs 09/12/22 08:09 09/13/22 08:42 Labs: Laboratory Results - last 24 hr 09/13/22 09/13/22 09/13/22 08:42 11:38 16:26 Estim Creat Clear Calc 137.2 Estimated GFR > 60 POC Glucose 210 H 207 H Vancomycin Trough 09/13/22 09/13/22 09/14/22 20:28 21:11 07:05 Estim Creat Clear Calc Estimated GFR POC Glucose 180 H 214 H Vancomycin Trough 13.1 Microbiology Microbiology Results: Microbiology 09/11/22 07:02 Blood Culture - Preliminary Blood - Venous Staphylococcus aureus 09/11/22 07:02 Blood Culture - Preliminary Blood - Venous No growth after 48 hours. Procedures Date of Service Date of Service: 09/14/22 Progress Note: A&P Assessment and plan (1) Abscess: Status: Acute (2) Osteomyelitis: Status: Acute (3) Diabetic foot ulcer: Status: Acute Plan Will change dressing later today and apply wound vac dressing. Discussed the wound vac in detail with Mr. Beltran with the assistance of a medical accounting clerk this morning. He expressed understanding and agrees with the plan. OK to resume heparin SQ today. Time Spent With Patient Time: Total time managing care of this patient today ____ minutes. Quality Stroke Does the patient have a stroke diagnosis?: No VTE Prior VTE?: No VTE Risk Level:: Medical - moderate - high VTE Device Contraindication: Treatment Not Indicated VTE Drug Contraindication: N/A - Med Ordered
[2022-09-14 08:00] VITALS: BP 150/77; PULSE 69; RESP 18; TEMP 37.1; O2SAT 91
[2022-09-14] MEDS: Insulin Lispro 100 UNIT/ML 3 ML VIAL SUBCUT ×4 (08:04→21:13)
[2022-09-14] MEDS: 0.9 % Sodium Chloride Flush 3 ML SYRINGE IVFLUSH ×3 (08:16→20:04)
[2022-09-14 09:05] LABS: Creatinine Clr Calc Pharmacy 140.7; Estimated Glomerular Filt Rate > 60
[2022-09-14] MEDS: Heparin Sodium,Porcine 5,000 UNIT/ML VIAL 5000 UNIT SUBCUT ×2 (10:07→21:13)
[2022-09-14] MEDS: vancomycin HCL 1,000 MG in 0.9 % Sodium Chloride 250 ML 270 MG IV ×2 (10:07→20:18)
[2022-09-14] MEDS: Heparin Sodium,Porcine Flush 50 UNITS/5 ML SYRINGE IVFLUSH ×3 (10:07→23:38)
[2022-09-14] MEDS: Cholecalciferol (Vitamin D3) 25 MCG TABLET 50 MCG PO (10:08)
[2022-09-14] MEDS: Ezetimibe 10 MG TABLET PO (10:08)
[2022-09-14] MEDS: Fenofibrate 54 MG TABLET PO (10:08)
[2022-09-14] MEDS: Escitalopram Oxalate 10 MG TABLET PO (10:08)
[2022-09-14 11:15] VITALS: BP 144/68; PULSE 71; RESP 16; TEMP 36.9; O2SAT 93
[2022-09-14 11:47] LABS: Glucose, Whole Blood 267 mg/dL (60-115)
--- NOTE | 2022-09-14 11:59 | MHC.CM.PN ---
PER MD ROUNDS, PT EXPECTED TO BE INPT THROUGH THE WEEKEND DCP IS FOR PT TO RETURN TO [facility] TO CONTINUE STR BLS TRANSPORT
--- NOTE | 2022-09-14 15:11 | P.PNIM_ITS ---
Subjective Subjective Date of Service: 09/14/22 Interval History: f/u on diabetic foot ulcer, osteomylitis (OM) of the foot blood culture mrsa1/2 positive Review of Systems no pain, s/p ID and drainage 09/08 by surgery- no much improvement, still has leucocytosis -? transmetatarsal amputation 09/12. no fevers, has wound vac Physical Exam Vital Signs: Vital Signs: Last Vital Signs Temp 98.5 F 09/14/22 11:15 Pulse 71 09/14/22 11:15 Resp 16 09/14/22 11:15 BP 144/68 H 09/14/22 11:15 Pulse Ox 93 09/14/22 11:15 O2 Del Method Room Air 09/14/22 11:15 O2 Flow Rate 2 09/10/22 15:33 BMI result Body Mass Index 40.4 Appearance: Alert.? Oriented X3.? not in distress.? cvs: rrr, [id number] , no murmur res: clear to auscultation ,no rhonchii or wheezing abd: no rebound or guarding ,nt, bs present. ext: right foot s/p transmet-has wound vac -draining serosinguinous neuro: axo3 , nonfocal Objective Data Active Medications Acetaminophen (Acetaminophen 325 Mg Tablet) 650 mg PO Q6H PRN PRN Reason: Pain, Mild (Pain Scale 1-3) Ezetimibe (Ezetimibe 10 Mg Tablet) 10 mg PO DAILY [facility] Last Admin: 09/14/22 10:08 Dose: 10 mg Documented By: ABI Escitalopram Oxalate (Escitalopram Oxalate 10 Mg Tablet) 10 mg PO DAILY [facility] Last Admin: 09/14/22 10:08 Dose: 10 mg Documented By: ABI Fenofibrate (Fenofibrate 54 Mg Tablet) 54 mg PO DAILY [facility] Last Admin: 09/14/22 10:08 Dose: 54 mg Documented By: ABI Gabapentin (Gabapentin 100 Mg Capsule) 100 mg PO Q8H [facility] Last Admin: 09/14/22 12:06 Dose: 100 mg Documented By: ABI Glucose (Glucose Gel 15 Gm Gel..Gram.) 15 gm PO Q15M PRN; Protocol PRN Reason: per Hypoglycemia Standing Ord. Heparin Sodium (Porcine) (Heparin Sodium,Porcine 5,000 Unit/Ml Vial) 5,000 unit SUBCUT Q12H [facility] Last Admin: 09/14/22 10:07 Dose: 5,000 unit Documented By: ABI Heparin Sodium (Porcine) (Heparin Sodium,Porcine Flush 50 Units/5 Ml Syringe) 50 units IVFLUSH QSHIFT [facility] Last Admin: 09/14/22 10:07 Dose: 50 units Documented By: ABI Hydromorphone HCl (Hydromorphone Hcl 0.5 Mg/0.5 Ml Syringe) 0.5 mg IVPUSH Q3H PRN; Protocol PRN Reason: Pain, Severe (Pain Scale 7-10) Dextrose (D10) 250 mls @ 750 mls/hr IV Q15M PRN; Protocol PRN Reason: per Hypoglycemia Standing Ord. Vancomycin HCl 1,000 mg/ (Sodium Chloride) 270 mls @ 270 mls/hr IV Q12H [facility] Last Infusion: 09/14/22 11:29 Dose: 0 mls/hr Documented By: MATHEW Insulin Glargine (Insulin Glargine,Hum.Rec.Anlog 100 Unit/Ml 10 Ml Vial) 21 unit SUBCUT DAILY [facility] Last Admin: 09/11/22 07:44 Dose: 21 unit Documented By: ABDIENOAL Insulin Human Lispro (Insulin Lispro 100 Unit/Ml 3 Ml Vial) 0 unit SUBCUT QIDACHS [facility]; Protocol Last Admin: 09/14/22 12:05 Dose: 6 unit Documented By: ABI Levothyroxine Sodium (Levothyroxine Sodium 150 Mcg Tablet) 150 mcg PO DAILY@0600 [facility] Last Admin: 09/14/22 05:17 Dose: 150 mcg Documented By: JORGE Loperamide HCl (Loperamide Hcl Oral Liquid 2 Mg/15 Ml Liquid) 2 mg PO Q6H PRN PRN Reason: Diarrhea Non-Formulary Medication (Simvastatin) 40 mg PO DAILY [facility] Ondansetron HCl (Ondansetron Hcl 4 Mg/2 Ml Vial) 4 mg IVPUSH Q8H PRN PRN Reason: Nausea and Vomiting Oxycodone HCl (Oxycodone Hcl Immed Release 5 Mg Tablet) 5 mg PO Q4H PRN PRN Reason: Pain, Moderate (Pain Scale 4-6 Pharmacy Consult (Consult Rx Perform Med Rec) 1 each MISCELLANE ONCE PRN PRN Reason: Consult order Sodium Chloride (0.9 % Sodium Chloride Flush 3 Ml Syringe) 3 ml IVFLUSH QSHIFT [facility] Last Admin: 09/14/22 08:16 Dose: 3 ml Documented By: ABI Vitamin D (Cholecalciferol (Vitamin D3) 25 Mcg Tablet) 50 mcg PO DAILY [facility] Last Admin: 09/14/22 10:08 Dose: 50 mcg Documented By: ABI Labs 09/12/22 08:09 09/14/22 08:17 Labs: Laboratory Results - last 24 hr 09/13/22 09/13/22 09/13/22 16:26 20:28 21:11 Estim Creat Clear Calc Estimated GFR POC Glucose 207 H 180 H Vancomycin Trough 13.1 09/14/22 09/14/22 09/14/22 07:05 08:17 11:42 Estim Creat Clear Calc 140.7 Estimated GFR > 60 POC Glucose 214 H 267 H Vancomycin Trough Microbiology Microbiology Results: Microbiology 09/11/22 07:02 Blood Culture - Final Blood - Venous Methicillin Res Staph Aureus Assessment and Plan (1) JJ (acute kidney injury): Status: Acute (2) Diabetic foot ulcer: Status: Acute (3) Osteomyelitis: Status: Acute Plan 52-year-old male with history of insulin-dependent type 2 diabetes, hypothyroidism, hyperlipidemia, hypertension, congestive heart failure, proteinuria, and nonhealing diabetic left foot ulcer who is morbidly obese admitted for nonhealing diabetic foot ulcer of the right foot with cellulitis and question of osteomyelitis. Sepsis, WBC is still high gram positive cocci bactermia #Osteomylitis of R 4th and 5th metatarsophalangeal joints on MRI # nonhealing right diabetic foot ulcer with cellulitis and abscless s/p I&D by dr. Dempsey on 09/08 -recently completed 6 weeks IV ertapenem on 08/10 with recent discharge from [facility] on 06/29.? MRI at that time negative for osteomyelitis, but extended antibiotics recommended by ID. -ESR 112, CRP 25 -x-ray of right foot negative for any bony erosions or periosteal thickening but showing soft tissue swelling has known PAD but no recent arterial imaging.? Arterial Doppler normal flow blood culture :06/25 :gram positive cocci/clusters-(MRSA 1/2). vanc trough 09/13 : 13.1 added repeat blood culture,echo. -continue IV vancomycin -seen by Id and surgery:s/p transmet 09/12 , continue antibiotics for now. further use of antibiotics will be decided after surgery. acute kidney injury-likely related to hypovolemia, resolved with IVF acute hypOnatremia-likely related to hypovolemia and thiazide diuretic use improved. Hold thiazide diuretics. insulin-dependent type 2 diabetes with hyperglycemia -hemoglobin A1c 7.7 -continue basal insulin -Humalog on sliding scale -POC glucose -diabetic diet hypertension-continue home meds hypOthyroidism-continue levothyroxine hyperlipidemia-continue Zetia and statin Congestive heart failure, ejection fraction unspecified-euvolemic appearing, no acute exacerbation. obesity -encouraged to lose weight. DVT prophylaxis-heparin Full code need for ipatient: IV Abx for OM, awaiting culture and longter IV Abx plans,wound vac -still drainaing,not optimal yet . Time Spent With Patient Time: Total time managing care of this patient today ____ minutes. Quality Stroke Does the patient have a stroke diagnosis?: No VTE Prior VTE?: No VTE Risk Level:: Medical - moderate - high VTE Device Contraindication: Treatment Not Indicated VTE Drug Contraindication: N/A - Med Ordered
[2022-09-14 16:02] VITALS: BP 150/70; PULSE 71; RESP 18; TEMP 37.1; O2SAT 95
--- NOTE | 2022-09-14 16:13 | PM.IDPN ---
Subjective Subjective Date of Service: 09/14/22 Critical Care Time (minutes): 15 Comment: he has no complaints Objective Data Labs 09/12/22 08:09 09/14/22 08:17 Labs: Laboratory Results - last 24 hr 09/13/22 09/13/22 09/13/22 16:26 20:28 21:11 Creatinine Estim Creat Clear Calc Estimated GFR POC Glucose 207 H 180 H Vancomycin Trough 13.1 09/14/22 09/14/22 09/14/22 07:05 08:17 11:42 Creatinine 0.79 Estim Creat Clear Calc 140.7 Estimated GFR > 60 POC Glucose 214 H 267 H Vancomycin Trough Microbiology Microbiology Results: Microbiology 09/11/22 07:02 Blood - Venous Blood Culture - Final Methicillin Res Staph Aureus 09/11/22 07:02 Blood - Venous Blood Culture - Preliminary No growth after 48 hours. 09/07/22 09:42 Blood - Venous Blood Culture - Final No growth after 5 days. 09/07/22 09:09 Blood - Venous Blood Culture - Final No growth after 5 days. 09/03/22 18:15 Blood - Venous Blood Culture - Final Methicillin Res Staph Aureus Enterococcus faecalis 09/03/22 17:43 Blood - Venous Blood Culture - Final Methicillin Res Staph Aureus 09/04/22 Unknown Urine clean catch - Urine pineda top Urine Culture - Final Physical Exam Vital Signs: Vital Signs: Last Vital Signs Temp 98.8 F 09/14/22 16:02 Pulse 71 09/14/22 16:02 Resp 18 09/14/22 16:02 BP 150/70 H 09/14/22 16:02 Pulse Ox 95 09/14/22 16:02 O2 Del Method Room Air 09/14/22 16:02 O2 Flow Rate 2 09/10/22 15:33 BMI result Body Mass Index 40.4 Const: General: cooperative Resp: Effort & Inspection: normal respiratory effort Cardio: Rate: regular rate Rhythm: regular rhythm GI: Inspection: Yes normal to inspection Assessment and Plan Assessment and plan (1) Bacteremia: 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
[2022-09-14 16:45] LABS: Glucose, Whole Blood 285 mg/dL (60-115)
[2022-09-14 19:23] VITALS: BP 132/67; PULSE 68; RESP 17; TEMP 36.7; O2SAT 92
[2022-09-14] MEDS: Linezolid 600 MG TABLET PO (20:04)
[2022-09-14 20:35] LABS: Glucose, Whole Blood 217 mg/dL (60-115)
[2022-09-15] VITALS (7 sets, daily range): BP systolic 123–164; BP diastolic 60–83; PULSE 68–74; RESP 16–18; TEMP 36.3–36.8; O2SAT 90–94
[2022-09-15] MEDS: Gabapentin 100 MG CAPSULE PO ×3 (05:06→20:08)
[2022-09-15] MEDS: Levothyroxine Sodium 150 MCG TABLET PO (05:06)
[2022-09-15 07:27] LABS: Glucose, Whole Blood 219 mg/dL (60-115)
[2022-09-15 07:43] LABS: Creatinine Clr Calc Pharmacy 132.3; Estimated Glomerular Filt Rate > 60
[2022-09-15] MEDS: Heparin Sodium,Porcine Flush 50 UNITS/5 ML SYRINGE IVFLUSH ×3 (08:07→23:03)
[2022-09-15] MEDS: Cholecalciferol (Vitamin D3) 25 MCG TABLET 50 MCG PO (08:07)
[2022-09-15] MEDS: Linezolid 600 MG TABLET PO ×2 (08:07→20:08)
[2022-09-15] MEDS: Insulin Lispro 100 UNIT/ML 3 ML VIAL SUBCUT ×4 (08:07→21:05)
[2022-09-15] MEDS: Ezetimibe 10 MG TABLET PO (08:07)
[2022-09-15] MEDS: Fenofibrate 54 MG TABLET PO (08:07)
[2022-09-15] MEDS: Heparin Sodium,Porcine 5,000 UNIT/ML VIAL 5000 UNIT SUBCUT ×2 (08:07→20:09)
[2022-09-15] MEDS: Escitalopram Oxalate 10 MG TABLET PO (08:08)
[2022-09-15 08:15] LABS: Vancomycin Trough 14.1 mcg/mL (10.0-20.0)
--- NOTE | 2022-09-15 08:32 | HE.PHANOTE ---
Re: vanco dosing SCr stable at 0.84 today. Random vanco level is 14.1. Next level to be drawn 09/17 @0700. Will continue to monitor SCr daily. AUC 432 @ dose #21
[2022-09-15] MEDS: vancomycin HCL 1,000 MG in 0.9 % Sodium Chloride 250 ML 270 MG IV ×2 (09:00→20:09)
[2022-09-15 11:09] LABS: Glucose, Whole Blood 244 mg/dL (60-115)
--- NOTE | 2022-09-15 16:04 | P.PNIM_ITS ---
Subjective Subjective Date of Service: 09/15/22 Interval History: f/u on diabetic foot ulcer, osteomylitis (OM) of the foot blood culture mrsa1/2 positive Review of Systems no pain, s/p ID and drainage 09/08 by surgery- no much improvement, still has leucocytosis -? transmetatarsal amputation 09/12. no fevers, has wound vac Physical Exam Vital Signs: Vital Signs: Last Vital Signs Temp 97.6 F 09/15/22 15:03 Pulse 73 09/15/22 15:03 Resp 18 09/15/22 15:03 BP 164/79 H 09/15/22 15:03 Pulse Ox 93 09/15/22 15:03 O2 Del Method Room Air 09/15/22 15:03 O2 Flow Rate 2 09/10/22 15:33 BMI result Body Mass Index 40.4 Appearance: Alert.? Oriented X3.? not in distress.? cvs: [id number], [id number] , no murmur res: clear to auscultation ,no rhonchii or wheezing abd: no rebound or guarding ,nt, bs present. ext: right foot s/p transmet-has wound vac -draining? serosinguinous neuro: axo3 , nonfocal Objective Data Active Medications Acetaminophen (Acetaminophen 325 Mg Tablet) 650 mg PO Q6H PRN PRN Reason: Pain, Mild (Pain Scale 1-3) Ezetimibe (Ezetimibe 10 Mg Tablet) 10 mg PO DAILY [facility] Last Admin: 09/15/22 08:07 Dose: 10 mg Documented By: JERZY Escitalopram Oxalate (Escitalopram Oxalate 10 Mg Tablet) 10 mg PO DAILY [facility] Last Admin: 09/15/22 08:08 Dose: 10 mg Documented By: JERZY Fenofibrate (Fenofibrate 54 Mg Tablet) 54 mg PO DAILY [facility] Last Admin: 09/15/22 08:07 Dose: 54 mg Documented By: JERZY Gabapentin (Gabapentin 100 Mg Capsule) 100 mg PO Q8H [facility] Last Admin: 09/15/22 11:38 Dose: 100 mg Documented By: JERZY Glucose (Glucose Gel 15 Gm Gel..Gram.) 15 gm PO Q15M PRN; Protocol PRN Reason: per Hypoglycemia Standing Ord. Heparin Sodium (Porcine) (Heparin Sodium,Porcine 5,000 Unit/Ml Vial) 5,000 unit SUBCUT Q12H [facility] Last Admin: 09/15/22 08:07 Dose: 5,000 unit Documented By: JERZY Heparin Sodium (Porcine) (Heparin Sodium,Porcine Flush 50 Units/5 Ml Syringe) 50 units IVFLUSH QSHIFT [facility] Last Admin: 09/15/22 08:07 Dose: 50 units Documented By: JERZY Hydromorphone HCl (Hydromorphone Hcl 0.5 Mg/0.5 Ml Syringe) 0.5 mg IVPUSH Q3H PRN; Protocol PRN Reason: Pain, Severe (Pain Scale 7-10) Dextrose (D10) 250 mls @ 750 mls/hr IV Q15M PRN; Protocol PRN Reason: per Hypoglycemia Standing Ord. Vancomycin HCl 1,000 mg/ (Sodium Chloride) 270 mls @ 270 mls/hr IV Q12H [facility] Last Infusion: 09/15/22 10:39 Dose: 0 mls/hr Documented By: JERZY Insulin Glargine (Insulin Glargine,Hum.Rec.Anlog 100 Unit/Ml 10 Ml Vial) 21 unit SUBCUT DAILY [facility] Last Admin: 09/11/22 07:44 Dose: 21 unit Documented By: NGENOAL Insulin Human Lispro (Insulin Lispro 100 Unit/Ml 3 Ml Vial) 0 unit SUBCUT QIDACHS [facility]; Protocol Last Admin: 09/15/22 11:38 Dose: 2 unit Documented By: JERZY Levothyroxine Sodium (Levothyroxine Sodium 150 Mcg Tablet) 150 mcg PO DAILY@0600 [facility] Last Admin: 09/15/22 05:06 Dose: 150 mcg Documented By: OZORALB Linezolid (Linezolid 600 Mg Tablet) 600 mg PO Q12H [facility] Last Admin: 09/15/22 08:07 Dose: 600 mg Documented By: JERZY Loperamide HCl (Loperamide Hcl Oral Liquid 2 Mg/15 Ml Liquid) 2 mg PO Q6H PRN PRN Reason: Diarrhea Non-Formulary Medication (Simvastatin) 40 mg PO DAILY [facility] Ondansetron HCl (Ondansetron Hcl 4 Mg/2 Ml Vial) 4 mg IVPUSH Q8H PRN PRN Reason: Nausea and Vomiting Oxycodone HCl (Oxycodone Hcl Immed Release 5 Mg Tablet) 5 mg PO Q4H PRN PRN Reason: Pain, Moderate (Pain Scale 4-6 Pharmacy Consult (Consult Rx Perform Med Rec) 1 each MISCELLANE ONCE PRN PRN Reason: Consult order Sodium Chloride (0.9 % Sodium Chloride Flush 3 Ml Syringe) 3 ml IVFLUSH QSHIFT [facility] Last Admin: 09/15/22 08:45 Dose: Not Given Documented By: JERZY Non-Admin Reason: Previously Administered Vitamin D (Cholecalciferol (Vitamin D3) 25 Mcg Tablet) 50 mcg PO DAILY [facility] Last Admin: 09/15/22 08:07 Dose: 50 mcg Documented By: JERZY Labs 09/12/22 08:09 09/15/22 06:55 Labs: Laboratory Results - last 24 hr 09/14/22 09/14/22 09/15/22 16:40 20:32 06:45 Estim Creat Clear Calc Estimated GFR POC Glucose 285 H 217 H Vancomycin Trough 14.1 09/15/22 09/15/22 09/15/22 06:55 07:20 10:56 Estim Creat Clear Calc 132.3 Estimated GFR > 60 POC Glucose 219 H 244 H Vancomycin Trough Assessment and Plan (1) JJ (acute kidney injury): Status: Acute (2) Diabetic foot ulcer: Status: Acute (3) Osteomyelitis: Status: Acute Plan 52-year-old male with history of insulin-dependent type 2 diabetes, hypothyroidism, hyperlipidemia, hypertension, congestive heart failure, proteinuria, and nonhealing diabetic left foot ulcer who is morbidly obese admitted for nonhealing diabetic foot ulcer of the right foot with cellulitis and question of osteomyelitis. Sepsis, WBC is still high gram positive cocci bactermia #Osteomylitis of R 4th and 5th metatarsophalangeal joints on MRI # nonhealing right diabetic foot ulcer with cellulitis and abscless s/p I&D by dr. Dempsey on 09/08 -recently completed 6 weeks IV ertapenem on 08/10 with recent discharge from [facility] on 06/29.? MRI at that time negative for osteomyelitis, but extended antibiotics recommended by ID. -ESR 112, CRP 25 -x-ray of right foot negative for any bony erosions or periosteal thickening but showing soft tissue swelling has known PAD but no recent arterial imaging.? Arterial Doppler normal flow blood culture :06/25 :gram positive cocci/clusters-(MRSA 1/2). vanc trough 09/13 : 14.1, repeat blood culture pendin, echo:09/07 Conclusions: - Normal left ventricular size, thickness, and systolic function. The visually estimated ejection fraction is between 60-65%.? ? ? - Normal right ventricular cavity size and systolic function.? ? - There is mild dilatation of the ascending aorta measuring 3.60 cm.?. -continue IV vancomycin -seen by Id and surgery:s/p transmet 09/12 , continue antibiotics for now. further use of antibiotics will be decided after surgery. acute kidney injury-likely related to hypovolemia, resolved with IVF acute hypOnatremia-likely related to hypovolemia and thiazide diuretic use improved. Hold thiazide diuretics. insulin-dependent type 2 diabetes with hyperglycemia -hemoglobin A1c 7.7 -continue basal insulin -Humalog on sliding scale -POC glucose -diabetic diet hypertension-continue home meds hypOthyroidism-continue levothyroxine hyperlipidemia-continue Zetia and statin Congestive heart failure, ejection fraction unspecified-euvolemic appearing, no acute exacerbation. obesity -encouraged to lose weight. DVT prophylaxis-heparin Full code need for ipatient: IV Abx for OM, awaiting culture and longter IV Abx plans ,wound vac -still drainaing,not optimal yet . Time Spent With Patient Time: Total time managing care of this patient today ____ minutes. Quality Stroke Does the patient have a stroke diagnosis?: No VTE Prior VTE?: No VTE Risk Level:: Medical - moderate - high VTE Device Contraindication: Treatment Not Indicated VTE Drug Contraindication: N/A - Med Ordered
[2022-09-15 16:19] LABS: Glucose, Whole Blood 259 mg/dL (60-115)
[2022-09-15] MEDS: 0.9 % Sodium Chloride Flush 3 ML SYRINGE IVFLUSH ×2 (16:42→20:10)
[2022-09-15 20:32] LABS: Glucose, Whole Blood 309 mg/dL (60-115)
[2022-09-16 03:53] VITALS: BP 137/71; PULSE 73; RESP 18; TEMP 36.6; O2SAT 94
[2022-09-16] MEDS: Gabapentin 100 MG CAPSULE PO ×3 (05:26→21:26)
[2022-09-16] MEDS: Levothyroxine Sodium 150 MCG TABLET PO (05:26)
[2022-09-16 06:39] LABS: Creatinine Clr Calc Pharmacy 130.8; Estimated Glomerular Filt Rate > 60
[2022-09-16 07:34] LABS: Glucose, Whole Blood 253 mg/dL (60-115)
[2022-09-16 07:49] VITALS: BP 154/75; PULSE 74; RESP 18; TEMP 36.1; O2SAT 93
[2022-09-16] MEDS: Heparin Sodium,Porcine Flush 50 UNITS/5 ML SYRINGE IVFLUSH ×3 (07:49→23:03)
[2022-09-16] MEDS: Ezetimibe 10 MG TABLET PO (07:49)
[2022-09-16] MEDS: Insulin Lispro 100 UNIT/ML 3 ML VIAL SUBCUT ×4 (07:49→21:28)
[2022-09-16] MEDS: Linezolid 600 MG TABLET PO ×2 (07:49→21:26)
[2022-09-16] MEDS: Heparin Sodium,Porcine 5,000 UNIT/ML VIAL 5000 UNIT SUBCUT ×2 (07:49→21:28)
[2022-09-16] MEDS: Fenofibrate 54 MG TABLET PO (07:49)
[2022-09-16] MEDS: Escitalopram Oxalate 10 MG TABLET PO (07:49)
[2022-09-16] MEDS: Cholecalciferol (Vitamin D3) 25 MCG TABLET 50 MCG PO (07:50)
[2022-09-16] MEDS: 0.9 % Sodium Chloride Flush 3 ML SYRINGE IVFLUSH ×2 (07:50→16:58)
[2022-09-16] MEDS: vancomycin HCL 1,000 MG in 0.9 % Sodium Chloride 250 ML 270 MG IV ×2 (08:43→21:27)
--- NOTE | 2022-09-16 10:59 | P.PNIM_ITS ---
Subjective Subjective Date of Service: 09/16/22 Interval History: f/u on diabetic foot ulcer, osteomylitis (OM) of the foot blood culture mrsa1/2 positive Review of Systems no pain, s/p ID and drainage 09/08 by surgery- no much improvement, still has leucocytosis -? transmetatarsal amputation 09/12. no fevers, has wound vac-serosinguinous fluid. Physical Exam Vital Signs: Vital Signs: Last Vital Signs Temp 96.9 F 09/16/22 07:49 Pulse 74 09/16/22 07:49 Resp 18 09/16/22 07:49 BP 154/75 H 09/16/22 07:49 Pulse Ox 93 09/16/22 07:49 O2 Del Method Room Air 09/16/22 07:49 O2 Flow Rate 2 09/10/22 15:33 BMI result Body Mass Index 40.4 Appearance: Alert.? Oriented X3.? not in distress.? cvs: [id number], [id number] , no murmur res: clear to auscultation ,no rhonchii or wheezing abd: no rebound or guarding ,nt, bs present. ext: right foot s/p transmet-has wound vac -draining? serosinguinous neuro: axo3 , nonfocal Objective Data Active Medications Acetaminophen (Acetaminophen 325 Mg Tablet) 650 mg PO Q6H PRN PRN Reason: Pain, Mild (Pain Scale 1-3) Ezetimibe (Ezetimibe 10 Mg Tablet) 10 mg PO DAILY [facility] Last Admin: 09/16/22 07:49 Dose: 10 mg Documented By: JERZY Escitalopram Oxalate (Escitalopram Oxalate 10 Mg Tablet) 10 mg PO DAILY [facility] Last Admin: 09/16/22 07:49 Dose: 10 mg Documented By: JERZY Fenofibrate (Fenofibrate 54 Mg Tablet) 54 mg PO DAILY [facility] Last Admin: 09/16/22 07:49 Dose: 54 mg Documented By: JERZY Gabapentin (Gabapentin 100 Mg Capsule) 100 mg PO Q8H [facility] Last Admin: 09/16/22 05:26 Dose: 100 mg Documented By: OZORALB Glucose (Glucose Gel 15 Gm Gel..Gram.) 15 gm PO Q15M PRN; Protocol PRN Reason: per Hypoglycemia Standing Ord. Heparin Sodium (Porcine) (Heparin Sodium,Porcine 5,000 Unit/Ml Vial) 5,000 unit SUBCUT Q12H [facility] Last Admin: 09/16/22 07:49 Dose: 5,000 unit Documented By: JERZY Heparin Sodium (Porcine) (Heparin Sodium,Porcine Flush 50 Units/5 Ml Syringe) 50 units IVFLUSH QSHIFT [facility] Last Admin: 09/16/22 07:49 Dose: 50 units Documented By: JERZY Hydromorphone HCl (Hydromorphone Hcl 0.5 Mg/0.5 Ml Syringe) 0.5 mg IVPUSH Q3H PRN; Protocol PRN Reason: Pain, Severe (Pain Scale 7-10) Dextrose (D10) 250 mls @ 750 mls/hr IV Q15M PRN; Protocol PRN Reason: per Hypoglycemia Standing Ord. Vancomycin HCl 1,000 mg/ (Sodium Chloride) 270 mls @ 270 mls/hr IV Q12H [facility] Last Infusion: 09/16/22 09:54 Dose: 0 mls/hr Documented By: JERZY Insulin Glargine (Insulin Glargine,Hum.Rec.Anlog 100 Unit/Ml 10 Ml Vial) 21 unit SUBCUT DAILY [facility] Last Admin: 09/11/22 07:44 Dose: 21 unit Documented By: NGENOAL Insulin Human Lispro (Insulin Lispro 100 Unit/Ml 3 Ml Vial) 0 unit SUBCUT QIDACHS [facility]; Protocol Last Admin: 09/16/22 07:49 Dose: 6 unit Documented By: JERZY Levothyroxine Sodium (Levothyroxine Sodium 150 Mcg Tablet) 150 mcg PO DAILY@0600 [facility] Last Admin: 09/16/22 05:26 Dose: 150 mcg Documented By: OZORALB Linezolid (Linezolid 600 Mg Tablet) 600 mg PO Q12H [facility] Last Admin: 09/16/22 07:49 Dose: 600 mg Documented By: JERZY Loperamide HCl (Loperamide Hcl Oral Liquid 2 Mg/15 Ml Liquid) 2 mg PO Q6H PRN PRN Reason: Diarrhea Non-Formulary Medication (Simvastatin) 40 mg PO DAILY [facility] Ondansetron HCl (Ondansetron Hcl 4 Mg/2 Ml Vial) 4 mg IVPUSH Q8H PRN PRN Reason: Nausea and Vomiting Oxycodone HCl (Oxycodone Hcl Immed Release 5 Mg Tablet) 5 mg PO Q4H PRN PRN Reason: Pain, Moderate (Pain Scale 4-6 Pharmacy Consult (Consult Rx Perform Med Rec) 1 each MISCELLANE ONCE PRN PRN Reason: Consult order Sodium Chloride (0.9 % Sodium Chloride Flush 3 Ml Syringe) 3 ml IVFLUSH QSHIFT [facility] Last Admin: 09/16/22 07:50 Dose: 3 ml Documented By: JERZY Vitamin D (Cholecalciferol (Vitamin D3) 25 Mcg Tablet) 50 mcg PO DAILY [facility] Last Admin: 09/16/22 07:50 Dose: 50 mcg Documented By: JERZY Labs 09/12/22 08:09 09/16/22 05:57 Labs: Laboratory Results - last 24 hr 09/15/22 09/15/22 09/15/22 10:56 16:10 20:28 Estim Creat Clear Calc Estimated GFR POC Glucose 244 H 259 H 309 H 09/16/22 09/16/22 05:57 07:31 Estim Creat Clear Calc 130.8 Estimated GFR > 60 POC Glucose 253 H Microbiology Microbiology Results: Microbiology 09/11/22 07:02 Blood Culture - Final Blood - Venous No growth after 5 days. 09/14/22 16:31 Blood Culture - Preliminary Blood - Venous No growth after 24 hours. 09/14/22 16:31 Blood Culture - Preliminary Blood - Venous No growth after 24 hours. Assessment and Plan (1) JJ (acute kidney injury): Status: Acute (2) Diabetic foot ulcer: Status: Acute (3) Osteomyelitis: Status: Acute Plan 52-year-old male with history of insulin-dependent type 2 diabetes, hypothyroidism, hyperlipidemia, hypertension, congestive heart failure, proteinuria, and nonhealing diabetic left foot ulcer who is morbidly obese admitted for nonhealing diabetic foot ulcer of the right foot with cellulitis and question of osteomyelitis. Sepsis, WBC is still high gram positive cocci bactermia ((MRSA and E. Feacalis) #Osteomylitis of R 4th and 5th metatarsophalangeal joints on MRI # nonhealing right diabetic foot ulcer with cellulitis and abscless s/p I&D by dr. Dempsey on 09/08 -recently completed 6 weeks IV ertapenem on 08/10 with recent discharge from [facility] on 06/29.? MRI at that time negative for osteomyelitis, but extended antibiotics recommended by ID. -ESR 112, CRP 25 -x-ray of right foot negative for any bony erosions or periosteal thickening but showing soft tissue swelling has known PAD but no recent arterial imaging.? Arterial Doppler normal flow blood culture :06/25 :gram positive cocci/clusters-(MRSA 2). vanc trough 09/15 : 14.1, repeat blood culture pendin, echo:09/07 Conclusions: - Normal left ventricular size, thickness, and systolic function. The visually estimated ejection fraction is between 60-65%.? ? ? - Normal right ventricular cavity size and systolic function.? ? - There is mild dilatation of the ascending aorta measuring 3.60 cm.?. continue IV vancomycin and linezolid -seen by Id and surgery:s/p transmet 09/12 , continue antibiotics for now. further use of antibiotics will be decided after surgery. acute kidney injury-likely related to hypovolemia, resolved with IVF acute hypOnatremia-likely related to hypovolemia and thiazide diuretic use improved. Hold thiazide diuretics. insulin-dependent type 2 diabetes with hyperglycemia -hemoglobin A1c 7.7 -continue basal insulin -Humalog on sliding scale -POC glucose -diabetic diet hypertension-continue home meds hypOthyroidism-continue levothyroxine hyperlipidemia-continue Zetia and statin Congestive heart failure, ejection fraction unspecified-euvolemic appearing, no acute exacerbation. obesity -encouraged to lose weight. DVT prophylaxis-heparin Full code need for ipatient: IV Abx for OM, awaiting culture and longter IV Abx plans,wound vac -still drainaing,not optimal yet . Time Spent With Patient Time: Total time managing care of this patient today ____ minutes. Quality Stroke Does the patient have a stroke diagnosis?: No VTE Prior VTE?: No VTE Risk Level:: Medical - moderate - high VTE Device Contraindication: Treatment Not Indicated VTE Drug Contraindication: N/A - Med Ordered
[2022-09-16 11:25] LABS: Glucose, Whole Blood 334 mg/dL (60-115)
[2022-09-16 11:58] VITALS: BP 147/84; PULSE 70; RESP 18; TEMP 36.4; O2SAT 93
[2022-09-16 15:44] VITALS: BP 142/74; PULSE 68; RESP 16; TEMP 36.7; O2SAT 96
[2022-09-16 16:24] LABS: Glucose, Whole Blood 320 mg/dL (60-115)
[2022-09-16 19:25] VITALS: BP 166/88; PULSE 66; RESP 16; TEMP 36.2; O2SAT 99
[2022-09-16 19:43] LABS: Glucose, Whole Blood 309 mg/dL (60-115)
[2022-09-16 23:33] VITALS: BP 148/74; PULSE 64; RESP 16; TEMP 36.2; O2SAT 96
[2022-09-17 03:34] VITALS: BP 149/77; PULSE 66; RESP 16; TEMP 36.3; O2SAT 93
[2022-09-17] MEDS: Gabapentin 100 MG CAPSULE PO ×3 (05:39→21:20)
[2022-09-17] MEDS: Levothyroxine Sodium 150 MCG TABLET PO (05:39)
[2022-09-17 07:03] LABS: Vancomycin Random 15.4 mcg/mL (15-20)
[2022-09-17 07:07] LABS: Creatinine Clr Calc Pharmacy 132.3; Estimated Glomerular Filt Rate > 60
[2022-09-17 07:13] VITALS: BP 158/76; PULSE 68; RESP 16; TEMP 36.2; O2SAT 93
--- NOTE | 2022-09-17 07:15 | HE.PHANOTE ---
Vancomycin Dosing Addendum Patients level came back this morning 15.4 mg/L. Will continue current dose of 1000 mg Q12H as patients renal function has remained stable. Next draw to be taken 09/18 @1900. Predicted AUC 432 mg/L/hr.
[2022-09-17 07:19] LABS: Glucose, Whole Blood 241 mg/dL (60-115)
[2022-09-17] MEDS: Insulin Lispro 100 UNIT/ML 3 ML VIAL SUBCUT ×4 (08:00→21:21)
[2022-09-17] MEDS: Escitalopram Oxalate 10 MG TABLET PO (08:00)
[2022-09-17] MEDS: Cholecalciferol (Vitamin D3) 25 MCG TABLET 50 MCG PO (08:00)
[2022-09-17] MEDS: vancomycin HCL 1,000 MG in 0.9 % Sodium Chloride 250 ML 270 MG IV ×2 (08:00→21:21)
[2022-09-17] MEDS: Ezetimibe 10 MG TABLET PO (08:00)
[2022-09-17] MEDS: Fenofibrate 54 MG TABLET PO (08:00)
[2022-09-17] MEDS: Heparin Sodium,Porcine 5,000 UNIT/ML VIAL 5000 UNIT SUBCUT ×2 (08:00→21:20)
[2022-09-17] MEDS: Linezolid 600 MG TABLET PO ×2 (08:00→19:38)
[2022-09-17] MEDS: 0.9 % Sodium Chloride Flush 3 ML SYRINGE IVFLUSH (08:01)
[2022-09-17] MEDS: Heparin Sodium,Porcine Flush 50 UNITS/5 ML SYRINGE IVFLUSH ×3 (09:02→23:08)
[2022-09-17 11:09] LABS: Glucose, Whole Blood 274 mg/dL (60-115)
--- NOTE | 2022-09-17 11:38 | MHC.CM.PN ---
PER MD ROUNDS, PT WILL NOT DC TODAY PT MAY BE READY TO DC TOMORROW [facility] INFORMED UPDATES SENT VIA [facility]
[2022-09-17 12:00] VITALS: BP 124/61; PULSE 74; RESP 18; TEMP 36.2; O2SAT 95
--- NOTE | 2022-09-17 12:29 | P.PNGS_ITS ---
Subjective Subjective Date of Service: 09/17/22 Interval history: No complaints. Uneventful weekend. Denies pain at amp site. Physical Exam Vital Signs: Vital Signs: Last Vital Signs Temp 97.2 F 09/17/22 12:00 Pulse 74 09/17/22 12:00 Resp 18 09/17/22 12:00 BP 124/61 09/17/22 12:00 Pulse Ox 95 09/17/22 12:00 O2 Del Method Room Air 09/17/22 12:00 O2 Flow Rate 2 09/10/22 15:33 BMI result Body Mass Index 40.4 Const: General: comfortable, no acute distress and alert Resp: Effort & Inspection: normal respiratory effort Skin: General skin exam: no rashes or lesions noted Extrem: Other: right transmetatarsal amp site- wound beginning to granulate however edematous and erythematous area to medial aspect of dorsum of foot- upon palpation purulence expressed through amp site- 4-5 o clock area at amp site tracks post eriorly to abscess site, packed with iodoform packing Objective Data Active Medications Acetaminophen (Acetaminophen 325 Mg Tablet) 650 mg PO Q6H PRN PRN Reason: Pain, Mild (Pain Scale 1-3) Ezetimibe (Ezetimibe 10 Mg Tablet) 10 mg PO DAILY [facility] Last Admin: 09/17/22 08:00 Dose: 10 mg Documented By: DAVID Escitalopram Oxalate (Escitalopram Oxalate 10 Mg Tablet) 10 mg PO DAILY [facility] Last Admin: 09/17/22 08:00 Dose: 10 mg Documented By: DAVID Fenofibrate (Fenofibrate 54 Mg Tablet) 54 mg PO DAILY [facility] Last Admin: 09/17/22 08:00 Dose: 54 mg Documented By: DAVID Gabapentin (Gabapentin 100 Mg Capsule) 100 mg PO Q8H [facility] Last Admin: 09/17/22 11:47 Dose: 100 mg Documented By: DAVID Glucose (Glucose Gel 15 Gm Gel..Gram.) 15 gm PO Q15M PRN; Protocol PRN Reason: per Hypoglycemia Standing Ord. Heparin Sodium (Porcine) (Heparin Sodium,Porcine 5,000 Unit/Ml Vial) 5,000 unit SUBCUT Q12H [facility] Last Admin: 09/17/22 08:00 Dose: 5,000 unit Documented By: DAVID Heparin Sodium (Porcine) (Heparin Sodium,Porcine Flush 50 Units/5 Ml Syringe) [address] [facility] Last Admin: 09/17/22 09:02 Dose: 50 units Documented By: DAVID Hydromorphone HCl (Hydromorphone Hcl 0.5 Mg/0.5 Ml Syringe) 0.5 mg IVPUSH Q3H PRN; Protocol PRN Reason: Pain, Severe (Pain Scale 7-10) Dextrose (D10) 250 mls @ 750 mls/hr IV Q15M PRN; Protocol PRN Reason: per Hypoglycemia Standing Ord. Vancomycin HCl 1,000 mg/ (Sodium Chloride) 270 mls @ 270 mls/hr IV Q12H [facility] Last Infusion: 09/17/22 09:11 Dose: 0 mls/hr Documented By: DAVID Insulin Glargine (Insulin Glargine,Hum.Rec.Anlog 100 Unit/Ml 10 Ml Vial) 21 unit SUBCUT DAILY [facility] Last Admin: 09/11/22 07:44 Dose: 21 unit Documented By: MERRY Insulin Human Lispro (Insulin Lispro 100 Unit/Ml 3 Ml Vial) 0 unit SUBCUT QIDACHS [facility]; Protocol Last Admin: 09/17/22 11:46 Dose: 6 unit Documented By: DAVID Levothyroxine Sodium (Levothyroxine Sodium 150 Mcg Tablet) 150 mcg PO DAILY@06 00 [facility] Last Admin: 09/17/22 05:39 Dose: 150 mcg Documented By: FLAKITO Linezolid (Linezolid 600 Mg Tablet) 600 mg PO Q12H [facility] Last Admin: 09/17/22 08:00 Dose: 600 mg Documented By: DAVID Loperamide HCl (Loperamide Hcl Oral Liquid 2 Mg/15 Ml Liquid) 2 mg PO Q6H PRN PRN Reason: Diarrhea Non-Formulary Medication (Simvastatin) 40 mg PO DAILY [facility] Ondansetron HCl (Ondansetron Hcl 4 Mg/2 Ml Vial) 4 mg IVPUSH Q8H PRN PRN Reason: Nausea and Vomiting Oxycodone HCl (Oxycodone Hcl Immed Release 5 Mg Tablet) 5 mg PO Q4H PRN PRN Reason: Pain, Moderate (Pain Scale 4-6 Pharmacy Consult (Consult Rx Perform Med Rec) 1 each MISCELLANE ONCE PRN PRN Reason: Consult order Sodium Chloride (0.9 % Sodium Chloride Flush 3 Ml Syringe) 3 ml IVFLUSH QSHIFT [facility] Last Admin: 09/17/22 08:01 Dose: 3 ml Documented By: DAVID Vitamin D (Cholecalciferol (Vitamin D3) 25 Mcg Tablet) 50 mcg PO DAILY [facility] Last Admin: 09/17/22 08:00 Dose: 50 mcg Documented By: DAVID Labs 09/12/22 08:09 09/17/22 06:30 Labs: Laboratory Results - last 24 hr 09/16/22 09/16/22 09/17/22 16:17 19:28 06:30 Estim Creat Clear Calc 132.3 Estimated GFR > 60 POC Glucose 320 H 309 H Random Vancomycin 09/17/22 09/17/22 09/17/22 06:30 07:12 11:01 Estim Creat Clear Calc Estimated GFR POC Glucose 241 H 274 H Random Vancomycin 15.4 Microbiology Microbiology Results: Microbiology 09/14/22 16:31 Blood Culture - Preliminary Blood - Venous No growth after 48 hours. 09/14/22 16:31 Blood Culture - Preliminary Blood - Venous No growth after 48 hours. 09/11/22 07:02 Blood Culture - Final Blood - Venous No growth after 5 days. Procedures Date of Service Date of Service: 09/17/22 Progress Note: A&P Assessment and plan (1) Abscess: Status: Acute (2) Osteomyelitis: Status: Acute (3) Status post transmetatarsal amputation of right foot: Status: Acute Plan Wound beginning to granulate well however abscess of dorsum of foot present and therefore wound vac discontinued for now. Area was packed with iodoform packing and wet to dry dressings to amp site. Continue daily dressing changes. May need further debridement prior to wound vac replacement. Will continue to follow. Time Spent With Patient Time: Total time managing care of this patient today ____ minutes. Quality Stroke Does the patient have a stroke diagnosis?: No VTE Prior VTE?: No VTE Risk Level:: Medical - moderate - high VTE Device Contraindication: Treatment Not Indicated VTE Drug Contraindication: N/A - Med Ordered
--- NOTE | 2022-09-17 12:34 | HO.PM.IMPN ---
Subjective Subjective Date of Service: 09/17/22 Interval History: f/u on diabetic foot ulcer, osteomylitis (OM) of the foot blood culture mrsa1/2 positive, foot lateral area (wound vac area collection) Review of Systems no pain, s/p ID and drainage 09/08 by surgery- no much improvement, still has leucocytosis -? transmetatarsal amputation 09/12. no fevers, has wound vac-serosinguinous fluid. Physical Exam Vital Signs: Vital Signs: Last Vital Signs Temp 97.2 F 09/17/22 12:00 Pulse 74 09/17/22 12:00 Resp 18 09/17/22 12:00 BP 124/61 09/17/22 12:00 Pulse Ox 95 09/17/22 12:00 O2 Del Method Room Air 09/17/22 12:00 O2 Flow Rate 2 09/10/22 15:33 BMI result Body Mass Index 40.4 Appearance: Alert.? Oriented X3.? not in distress.? cvs: rrr, [id number] , no murmur res: clear to auscultation ,no rhonchii or wheezing abd: no rebound or guarding ,nt, bs present. ext: right foot s/p transmet-has wound vac -draining? serosinguinous neuro: axo3 , nonfocal Objective Data Active Medications Acetaminophen (Acetaminophen 325 Mg Tablet) 650 mg PO Q6H PRN PRN Reason: Pain, Mild (Pain Scale 1-3) Ezetimibe (Ezetimibe 10 Mg Tablet) 10 mg PO DAILY [facility] Last Admin: 09/17/22 08:00 Dose: 10 mg Documented By: DAVID Escitalopram Oxalate (Escitalopram Oxalate 10 Mg Tablet) 10 mg PO DAILY [facility] Last Admin: 09/17/22 08:00 Dose: 10 mg Documented By: DAVID Fenofibrate (Fenofibrate 54 Mg Tablet) 54 mg PO DAILY [facility] Last Admin: 09/17/22 08:00 Dose: 54 mg Documented By: DAVID Gabapentin (Gabapentin 100 Mg Capsule) 100 mg PO Q8H [facility] Last Admin: 09/17/22 11:47 Dose: 100 mg Documented By: DAVID Glucose (Glucose Gel 15 Gm Gel..Gram.) 15 gm PO Q15M PRN; Protocol PRN Reason: per Hypoglycemia Standing Ord. Heparin Sodium (Porcine) (Heparin Sodium,Porcine 5,000 Unit/Ml Vial) 5,000 unit SUBCUT Q12H [facility] Last Admin: 09/17/22 08:00 Dose: 5,000 unit Documented By: DAVID Heparin Sodium (Porcine) (Heparin Sodium,Porcine Flush 50 Units/5 Ml Syringe) 50 units IVFLUSH QSHIFT [facility] Last Admin: 09/17/22 09:02 Dose: 50 units Documented By: DAVID Hydromorphone HCl (Hydromorphone Hcl 0.5 Mg/0.5 Ml Syringe) 0.5 mg IVPUSH Q3H PRN; Protocol PRN Reason: Pain, Severe (Pain Scale 7-10) Dextrose (D10) 250 mls @ 750 mls/hr IV Q15M PRN; Protocol PRN Reason: per Hypoglycemia Standing Ord. Vancomycin HCl 1,000 mg/ (Sodium Chloride) 270 mls @ 270 mls/hr IV Q12H [facility] Last Infusion: 09/17/22 09:11 Dose: 0 mls/hr Documented By: DAVID Insulin Glargine (Insulin Glargine,Hum.Rec.Anlog 100 Unit/Ml 10 Ml Vial) 21 unit SUBCUT DAILY [facility] Last Admin: 09/11/22 07:44 Dose: 21 unit Documented By: MERRY Insulin Human Lispro (Insulin Lispro 100 Unit/Ml 3 Ml Vial) 0 unit SUBCUT QIDACHS [facility]; Protocol Last Admin: 09/17/22 11:46 Dose: 6 unit Documented By: DAVID Levothyroxine Sodium (Levothyroxine Sodium 150 Mcg Tablet) 150 mcg PO DAILY@0600 [facility] Last Admin: 09/17/22 05:39 Dose: 150 mcg Documented By: FLAKITO Linezolid (Linezolid 600 Mg Tablet) 600 mg PO Q12H [facility] Last Admin: 09/17/22 08:00 Dose: 600 mg Documented By: DAVID Loperamide HCl (Loperamide Hcl Oral Liquid 2 Mg/15 Ml Liquid) 2 mg PO Q6H PRN PRN Reason: Diarrhea Non-Formulary Medication (Simvastatin) 40 mg PO DAILY [facility] Ondansetron HCl (Ondansetron Hcl 4 Mg/2 Ml Vial) 4 mg IVPUSH Q8H PRN PRN Reason: Nausea and Vomiting Oxycodone HCl (Oxycodone Hcl Immed Release 5 Mg Tablet) 5 mg PO Q4H PRN PRN Reason: Pain, Moderate (Pain Scale 4-6 Pharmacy Consult (Consult Rx Perform Med Rec) 1 each MISCELLANE ONCE PRN PRN Reason: Consult order Sodium Chloride (0.9 % Sodium Chloride Flush 3 Ml Syringe) 3 ml IVFLUSH QSHIFT [facility] Last Admin: 09/17/22 08:01 Dose: 3 ml Documented By: DAVID Vitamin D (Cholecalciferol (Vitamin D3) 25 Mcg Tablet) 50 mcg PO DAILY [facility] Last Admin: 09/17/22 08:00 Dose: 50 mcg Documented By: DAVID Labs 09/12/22 08:09 09/17/22 06:30 Labs: Laboratory Results - last 24 hr 09/16/22 09/16/22 09/17/22 16:17 19:28 06:30 Estim Creat Clear Calc 132.3 Estimated GFR > 60 POC Glucose 320 H 309 H Random Vancomycin 09/17/22 09/17/22 09/17/22 06:30 07:12 11:01 Estim Creat Clear Calc Estimated GFR POC Glucose 241 H 274 H Random Vancomycin 15.4 Microbiology Microbiology Results: Microbiology 09/14/22 16:31 Blood Culture - Preliminary Blood - Venous No growth after 48 hours. 09/14/22 16:31 Blood Culture - Preliminary Blood - Venous No growth after 48 hours. 09/11/22 07:02 Blood Culture - Final Blood - Venous No growth after 5 days. Assessment and Plan (1) Status post transmetatarsal amputation of right foot: Status: Acute (2) Bacteremia: Status: Acute Plan 52-year-old male with history of insulin-dependent type 2 diabetes, hypothyroidism, hyperlipidemia, hypertension, congestive heart failure, proteinuria, and nonhealing diabetic left foot ulcer who is morbidly obese admitted for nonhealing diabetic foot ulcer of the right foot with cellulitis and question of osteomyelitis. Sepsis, WBC is still high gram positive cocci bactermia ((MRSA and E. Feacalis) #Osteomylitis of R??4th and 5th metatarsophalangeal joints on MRI # nonhealing right diabetic foot ulcer with cellulitis and abscless s/p I&D by dr. Dempsey on 3/18 -recently completed 6 weeks IV ertapenem on 08/10 with recent discharge from [facility] on 06/29.? MRI at that time negative for osteomyelitis, but extended antibiotics recommended by ID. -ESR 112, CRP 25 -x-ray of right foot negative for any bony erosions or periosteal thickening but showing soft tissue swelling has known PAD but no recent arterial imaging.? Arterial Doppler normal flow blood culture :06/25 :gram positive cocci/clusters-(MRSA 06/25). vanc trough 09/15 : 14.1, repeat blood culture pendin, echo:09/07 Conclusions: - Normal left ventricular size, thickness, and systolic function. The visually estimated ejection fraction is between 60-65%.? ? ? - Normal right ventricular cavity size and systolic function.? ? - There is mild dilatation of the ascending aorta measuring 3.60 cm.. continue IV vancomycin and linezolid? -seen by Id and surgery:s/p transmet 09/12 , continue antibiotics for now. Patient was seen by surgery today: Has some collection in the lateral wound VAC, the which drained and packed, continue to monitor. Initially patient's blood culture was negative on 09/07-that time PICC line was placed and subsequently blood cultures were sent on 09/11 -06/25 seems to be positive, repeated again-blood culture neg@48hrs so far Id follow up for further management. acute kidney injury-likely related to hypovolemia, resolved with IVF acute hypOnatremia-likely related to hypovolemia and thiazide diuretic use improved. Hold thiazide diuretics. ?insulin-dependent type 2 diabetes with hyperglycemia -hemoglobin A1c 7.7 -continue basal insulin -Humalog on sliding scale -POC glucose -diabetic diet ?hypertension-continue home meds hypOthyroidism-continue levothyroxine ?hyperlipidemia-continue Zetia and statin Congestive heart failure, ejection fraction unspecified-euvolemic appearing, no acute exacerbation. obesity -encouraged to lose weight. DVT prophylaxis-heparin Full code need for ipatient: IV Abx for OM, awaiting culture and longter IV Abx plans,wound vac -still drainaing,not optimal yet? . Time Spent With Patient Time: Total time managing care of this patient today ____ minutes. Quality Stroke Does the patient have a stroke diagnosis?: No VTE Prior VTE?: No VTE Risk Level:: Medical - moderate - high VTE Device Contraindication: Treatment Not Indicated VTE Drug Contraindication: N/A - Med Ordered
--- NOTE | 2022-09-17 13:13 | P.PNGS_ITS ---
Subjective Subjective Date of Service: 09/17/22 Interval history: Patient with no complaints this morning. Denies foot pain. Physical Exam Vital Signs: Vital Signs: Last Vital Signs Temp 97.2 F 09/17/22 12:00 Pulse 74 09/17/22 12:00 Resp 18 09/17/22 12:00 BP 124/61 09/17/22 12:00 Pulse Ox 95 09/17/22 12:00 O2 Del Method Room Air 09/17/22 12:00 O2 Flow Rate 2 09/10/22 15:33 BMI result Body Mass Index 40.4 Const: General: comfortable and no acute distress Resp: Effort & Inspection: normal respiratory effort Extrem: Other: Status post right transmetatarsal amputation. Wound VAC removed. Some granulation tissue noted on the surface however an area of erythema is noted on the instep of the right foot. Light pressure on this area produced a small collection of purulence discharge. Wound was explored and packed with half-inch iodoform gauze. Wet to dry dressings were then applied. Objective Data Active Medications Acetaminophen (Acetaminophen 325 Mg Tablet) 650 mg PO Q6H PRN PRN Reason: Pain, Mild (Pain Scale 1-3) Ezetimibe (Ezetimibe 10 Mg Tablet) 10 mg PO DAILY [facility] Last Admin: 09/17/22 08:00 Dose: 10 mg Documented By: DAVID Escitalopram Oxalate (Escitalopram Oxalate 10 Mg Tablet) 10 mg PO DAILY [facility] Last Admin: 09/17/22 08:00 Dose: 10 mg Documented By: DAVID Fenofibrate (Fenofibrate 54 Mg Tablet) 54 mg PO DAILY [facility] Last Admin: 09/17/22 08:00 Dose: 54 mg Documented By: DAVID Gabapentin (Gabapentin 100 Mg Capsule) 100 mg PO Q8H [facility] Last Admin: 09/17/22 11:47 Dose: 100 mg Documented By: DAVID Glucose (Glucose Gel 15 Gm Gel..Gram.) 15 gm PO Q15M PRN; Protocol PRN Reason: per Hypoglycemia Standing Ord. Heparin Sodium (Porcine) (Heparin Sodium,Porcine 5,000 Unit/Ml Vial) 5,000 unit SUBCUT Q12H [facility] Last Admin: 09/17/22 08:00 Dose: 5,000 unit Documented By: DAVID Heparin Sodium (Porcine) (Heparin Sodium,Porcine Flush 50 Units/5 Ml Syringe) 5 0 units IVFLUSH QSHIFT [facility] Last Admin: 09/17/22 09:02 Dose: 50 units Documented By: DAVID Hydromorphone HCl (Hydromorphone Hcl 0.5 Mg/0.5 Ml Syringe) 0.5 mg IVPUSH Q3H PRN; Protocol PRN Reason: Pain, Severe (Pain Scale 7-10) Dextrose (D10) 250 mls @ 750 mls/hr IV Q15M PRN; Protocol PRN Reason: per Hypoglycemia Standing Ord. Vancomycin HCl 1,000 mg/ (Sodium Chloride) 270 mls @ 270 mls/hr IV Q12H [facility] Last Infusion: 09/17/22 09:11 Dose: 0 mls/hr Documented By: DAVID Insulin Glargine (Insulin Glargine,Hum.Rec.Anlog 100 Unit/Ml 10 Ml Vial) 21 unit SUBCUT DAILY [facility] Last Admin: 09/11/22 07:44 Dose: 21 unit Documented By: MERRY Insulin Human Lispro (Insulin Lispro 100 Unit/Ml 3 Ml Vial) 0 unit SUBCUT QIDACHS [facility]; Protocol Last Admin: 09/17/22 11:46 Dose: 6 unit Documented By: DAVID Levothyroxine Sodium (Levothyroxine Sodium 150 Mcg Tablet) 150 mcg PO DAILY@0600 [facility] Last Admin: 09/17/22 05:39 Dose: 150 mcg Documented By: FLAKITO Linezolid (Linezolid 600 Mg Tablet) 600 mg PO Q12H [facility] Last Admin: 09/17/22 08:00 Dose: 600 mg Documented By: DAVID Loperamide HCl (Loperamide Hcl Oral Liquid 2 Mg/15 Ml Liquid) 2 mg PO Q6H PRN PRN Reason: Diarrhea Non-Formulary Medication (Simvastatin) 40 mg PO DAILY [facility] Ondansetron HCl (Ondansetron Hcl 4 Mg/2 Ml Vial) 4 mg IVPUSH Q8H PRN PRN Reason: Nausea and Vomiting Oxycodone HCl (Oxycodone Hcl Immed Release 5 Mg Tablet) 5 mg PO Q4H PRN PRN Reason: Pain, Moderate (Pain Scale 4-6 Pharmacy Consult (Consult Rx Perform Med Rec) 1 each MISCELLANE ONCE PRN PRN Reason: Consult order Sodium Chloride (0.9 % Sodium Chloride Flush 3 Ml Syringe) 3 ml IVFLUSH QSHIFT [facility] Last Admin: 09/17/22 08:01 Dose: 3 ml Documented By: DAVID Vitamin D (Cholecalciferol (Vitamin D3) 25 Mcg Tablet) 50 mcg PO DAILY [facility] Last Admin: 09/17/22 08:00 Dose: 50 mcg Documented By: DAVID Labs 09/12/22 08:09 09/17/22 06:30 Labs: Laboratory Results - last 24 hr 09/16/22 09/16/22 09/17/22 16:17 19:28 06:30 Estim Creat Clear Calc 132.3 Estimated GFR > 60 POC Glucose 320 H 309 H Random Vancomycin 09/17/22 09/17/22 09/17/22 06:30 07:12 11:01 Estim Creat Clear Calc Estimated GFR POC Glucose 241 H 274 H Random Vancomycin 15.4 Microbiology Microbiology Results: Microbiology 09/14/22 16:31 Blood Culture - Preliminary Blood - Venous No growth after 48 hours. 09/14/22 16:31 Blood Culture - Preliminary Blood - Venous No growth after 48 hours. Procedures Date of Service Date of Service: 09/17/22 Progress Note: A&P Assessment and plan (1) Diabetic foot ulcer: Status: Acute (2) Osteomyelitis: Status: Acute Plan Wounds re-examined today after applying wound VAC. increased erythema noted along the instep an abscess cavity identified. This was opened further and packed with half-inch iodoform gauze. Wounds were dressed with wet to dry dressings. Will hold off on wound VAC at this time. Continue IV antibiotics and recheck CBC in a.m.. Time Spent With Patient Time: Total time managing care of this patient today ____ minutes. Quality Stroke Does the patient have a stroke diagnosis?: No VTE Prior VTE?: No VTE Risk Level:: Medical - moderate - high VTE Device Contraindication: Treatment Not Indicated VTE Drug Contraindication: N/A - Med Ordered
[2022-09-17 16:25] VITALS: BP 152/72; PULSE 73; RESP 18; TEMP 36.1; O2SAT 98
[2022-09-17 16:45] LABS: Glucose, Whole Blood 315 mg/dL (60-115)
[2022-09-17 19:35] VITALS: BP 114/57; PULSE 70; RESP 18; TEMP 36.3; O2SAT 95
[2022-09-17 20:10] LABS: Glucose, Whole Blood 310 mg/dL (60-115)
[2022-09-18] VITALS: RESP 20
[2022-09-18 03:42] VITALS: BP 159/73; PULSE 74; RESP 18; TEMP 36.3; O2SAT 95
[2022-09-18] MEDS: Gabapentin 100 MG CAPSULE PO ×3 (05:09→19:53)
[2022-09-18] MEDS: Levothyroxine Sodium 150 MCG TABLET PO (05:09)
--- NOTE | 2022-09-18 07:47 | PM.PNGS ---
Subjective Subjective Date of Service: 09/18/22 Interval history: Patient resting, no complaint Physical Exam Vital Signs: Vital Signs: Last Vital Signs Temp 97.3 F 09/18/22 03:42 Pulse 74 09/18/22 03:42 Resp 18 09/18/22 03:42 BP 159/73 H 09/18/22 03:42 Pulse Ox 95 09/18/22 03:42 O2 Del Method Room Air 09/18/22 03:42 O2 Flow Rate 2 09/10/22 15:33 BMI result Body Mass Index 40.4 Const: General: comfortable and no acute distress Resp: Effort & Inspection: normal respiratory effort Extrem: Other: Status post right transmetatarsal amputation. dressings intact with some serosanguineous discharge noted. No erythema. Objective Data Active Medications Acetaminophen (Acetaminophen 325 Mg Tablet) 650 mg PO Q6H PRN PRN Reason: Pain, Mild (Pain Scale 1-3) Ezetimibe (Ezetimibe 10 Mg Tablet) 10 mg PO DAILY [facility] Last Admin: 09/17/22 08:00 Dose: 10 mg Documented By: DAVDI Escitalopram Oxalate (Escitalopram Oxalate 10 Mg Tablet) 10 mg PO DAILY [facility] Last Admin: 09/17/22 08:00 Dose: 10 mg Documented By: DAVID Fenofibrate (Fenofibrate 54 Mg Tablet) 54 mg PO DAILY [facility] Last Admin: 09/17/22 08:00 Dose: 54 mg Documented By: DAVID Gabapentin (Gabapentin 100 Mg Capsule) 100 mg PO Q8H [facility] Last Admin: 09/18/22 05:09 Dose: 100 mg Documented By: FLAKITO Glucose (Glucose Gel 15 Gm Gel..Gram.) 15 gm PO Q15M PRN; Protocol PRN Reason: per Hypoglycemia Standing Ord. Heparin Sodium (Porcine) (Heparin Sodium,Porcine 5,000 Unit/Ml Vial) 5,000 unit SUBCUT Q12H [facility] Last Admin: 09/17/22 21:20 Dose: 5,000 unit Documented By: FLAKITO Heparin Sodium (Porcine) (Heparin Sodium,Porcine Flush 50 Units/5 Ml Syringe) 50 units IVFLUSH QSHIFT [facility] Last Admin: 09/17/22 23:08 Dose: 50 units Documented By: FLAKITO Hydromorphone HCl (Hydromorphone Hcl 0.5 Mg/0.5 Ml Syringe) 0.5 mg IVPUSH Q3H PRN; Protocol PRN Reason: Pain, Severe (Pain Scale 7-10) Dextrose (D10) 250 mls @ 750 mls/hr IV Q15M PRN; Protocol PRN Reason: per Hypoglycemia Standing Ord. Vancomycin HCl 1,000 mg/ (Sodium Chloride) 270 mls @ 270 mls/hr IV Q12H [facility] Last Infusion: 09/17/22 22:30 Dose: 0 mls/hr Documented By: FLAKITO Insulin Glargine (Insulin Glargine,Hum.Rec.Anlog 100 Unit/Ml 10 Ml Vial) 21 unit SUBCUT DAILY [facility] Last Admin: 09/11/22 07:44 Dose: 21 unit Documented By: ABDIENOAL Insulin Human Lispro (Insulin Lispro 100 Unit/Ml 3 Ml Vial) 0 unit SUBCUT QIDACHS [facility]; Protocol Last Admin: 09/17/22 21:21 Dose: 8 unit Documented By: FLAKITO Levothyroxine Sodium (Levothyroxine Sodium 150 Mcg Tablet) 150 mcg PO DAILY@0600 [facility] Last Admin: 09/18/22 05:09 Dose: 150 mcg Documented By: FLAKITO Linezolid (Linezolid 600 Mg Tablet) 600 mg PO Q12H [facility] Last Admin: 09/17/22 19:38 Dose: 600 mg Documented By: FLAKITO Loperamide HCl (Loperamide Hcl Oral Liquid 2 Mg/15 Ml Liquid) 2 mg PO Q6H PRN PRN Reason: Diarrhea Ondansetron HCl (Ondansetron Hcl 4 Mg/2 Ml Vial) 4 mg IVPUSH Q8H PRN PRN Reason: Nausea and Vomiting Pharmacy Consult (Consult Rx Perform Med Rec) 1 each MISCELLANE ONCE PRN PRN Reason: Consult order Sodium Chloride (0.9 % Sodium Chloride Flush 3 Ml Syringe) 3 ml IVFLUSH QSHIFT [facility] Last Admin: 09/17/22 23:11 Dose: Not Given Documented By: FLAKITO Non-Admin Reason: pt has picc line Vitamin D (Cholecalciferol (Vitamin D3) 25 Mcg Tablet) 50 mcg PO DAILY [facility] Last Admin: 09/17/22 08:00 Dose: 50 mcg Documented By: DAVID Labs 09/12/22 08:09 09/17/22 06:30 Labs: Laboratory Results - last 24 hr 09/17/22 09/17/22 09/17/22 11:01 16:40 20:04 POC Glucose 274 H 315 H 310 H Procedures Date of Service Date of Service: 09/18/22 Progress Note: A&P Assessment and plan (1) Diabetic foot ulcer: Status: Acute (2) Osteomyelitis: Status: Acute Plan Transmetatarsal amputation for foot abscess, gangrene. Area of erythema noted yesterday therefore wound VAC stopped. Will change dressings later today. Can you IV antibiotics, check CBC. Time Spent With Patient Time: Total time managing care of this patient today ____ minutes. Quality Stroke Does the patient have a stroke diagnosis?: No VTE Prior VTE?: No VTE Risk Level:: Medical - moderate - high VTE Device Contraindication: Treatment Not Indicated VTE Drug Contraindication: N/A - Med Ordered
[2022-09-18 07:59] LABS: Glucose, Whole Blood 272 mg/dL (60-115)
[2022-09-18 08:00] VITALS: BP 149/72; PULSE 71; RESP 18; TEMP 36.4; O2SAT 93
[2022-09-18] MEDS: Cholecalciferol (Vitamin D3) 25 MCG TABLET 50 MCG PO (08:11)
[2022-09-18] MEDS: Insulin Lispro 100 UNIT/ML 3 ML VIAL SUBCUT ×4 (08:11→21:00)
[2022-09-18] MEDS: Linezolid 600 MG TABLET PO ×2 (08:11→19:53)
[2022-09-18] MEDS: Fenofibrate 54 MG TABLET PO (08:11)
[2022-09-18] MEDS: Heparin Sodium,Porcine 5,000 UNIT/ML VIAL 5000 UNIT SUBCUT ×2 (08:11→19:53)
[2022-09-18] MEDS: Ezetimibe 10 MG TABLET PO (08:11)
[2022-09-18] MEDS: vancomycin HCL 1,000 MG in 0.9 % Sodium Chloride 250 ML 200 MG IV (08:11)
[2022-09-18] MEDS: Escitalopram Oxalate 10 MG TABLET PO (08:12)
--- NOTE | 2022-09-18 08:50 | HO.PM.IMPN ---
Subjective Subjective Date of Service: 09/18/22 Interval History: f/u on osteomylitis of foot, MRSA and E. Feacolis bacteremia interval history: wound d/'c'd yesterday d/t concern of redness around wound, no other complaint Physical Exam Vital Signs: Vital Signs: Last Vital Signs Temp 97.5 F 09/18/22 08:00 Pulse 71 09/18/22 08:00 Resp 18 09/18/22 08:00 BP 149/72 H 09/18/22 08:00 Pulse Ox 93 09/18/22 08:00 O2 Del Method Room Air 09/18/22 08:00 O2 Flow Rate 2 09/10/22 15:33 BMI result Body Mass Index 40.4 Const: Other: General: AO X 3, no acute distress Resp: CTA bilateral CVS: S1,S2,RRR GI: +BS, NT, no distention Skin: No rash, left foot dressing intact Neuro: motor grossly intact Psych: appropriate affect Objective Data Active Medications Acetaminophen (Acetaminophen 325 Mg Tablet) 650 mg PO Q6H PRN PRN Reason: Pain, Mild (Pain Scale 1-3) Ezetimibe (Ezetimibe 10 Mg Tablet) 10 mg PO DAILY [facility] Last Admin: 09/18/22 08:11 Dose: 10 mg Documented By: DAVID Escitalopram Oxalate (Escitalopram Oxalate 10 Mg Tablet) 10 mg PO DAILY [facility] Last Admin: 09/18/22 08:12 Dose: 10 mg Documented By: DAVID Fenofibrate (Fenofibrate 54 Mg Tablet) 54 mg PO DAILY [facility] Last Admin: 09/18/22 08:11 Dose: 54 mg Documented By: DAVID Gabapentin (Gabapentin 100 Mg Capsule) 100 mg PO Q8H [facility] Last Admin: 09/18/22 05:09 Dose: 100 mg Documented By: FLAKITO Glucose (Glucose Gel 15 Gm Gel..Gram.) 15 gm PO Q15M PRN; Protocol PRN Reason: per Hypoglycemia Standing Ord. Heparin Sodium (Porcine) (Heparin Sodium,Porcine 5,000 Unit/Ml Vial) 5,000 unit SUBCUT Q12H [facility] Last Admin: 09/18/22 08:11 Dose: 5,000 unit Documented By: DAVID Heparin Sodium (Porcine) (Heparin Sodium,Porcine Flush 50 Units/5 Ml Syringe) 50 units IVFLUSH QSHIFT [facility] Last Admin: 09/17/22 23:08 Dose: 50 units Documented By: FLAKITO Hydromorphone HCl (Hydromorphone Hcl 0.5 Mg/0.5 Ml Syringe) 0.5 mg IVPUSH Q3H PRN; Protocol PRN Reason: Pain, Severe (Pain Scale 7-10) Dextrose (D10) 250 mls @ 750 mls/hr IV Q15M PRN; Protocol PRN Reason: per Hypoglycemia Standing Ord. Vancomycin HCl 1,000 mg/ (Sodium Chloride) 270 mls @ 270 mls/hr IV Q12H [facility] Last Admin: 09/18/22 08:11 Dose: 200 mls/hr Documented By: DAVID Insulin Glargine (Insulin Glargine,Hum.Rec.Anlog 100 Unit/Ml 10 Ml Vial) 21 unit SUBCUT DAILY [facility] Last Admin: 09/11/22 07:44 Dose: 21 unit Documented By: MERRY Insulin Human Lispro (Insulin Lispro 100 Unit/Ml 3 Ml Vial) 0 unit SUBCUT QIDACHS [facility]; Protocol Last Admin: 09/18/22 08:11 Dose: 6 unit Documented By: DAVID Levothyroxine Sodium (Levothyroxine Sodium 150 Mcg Tablet) 150 mcg PO DAILY@0600 [facility] Last Admin: 09/18/22 05:09 Dose: 150 mcg Documented By: FLAKITO Linezolid (Linezolid 600 Mg Tablet) 600 mg PO Q12H [facility] Last Admin: 09/18/22 08:11 Dose: 600 mg Documented By: DAVID Loperamide HCl (Loperamide Hcl Oral Liquid 2 Mg/15 Ml Liquid) 2 mg PO Q6H PRN PRN Reason: Diarrhea Ondansetron HCl (Ondansetron Hcl 4 Mg/2 Ml Vial) 4 mg IVPUSH Q8H PRN PRN Reason: Nausea and Vomiting Pharmacy Consult (Consult Rx Perform Med Rec) 1 each MISCELLANE ONCE PRN PRN Reason: Consult order Sodium Chloride (0.9 % Sodium Chloride Flush 3 Ml Syringe) 3 ml IVFLUSH [facility] Last Admin: 09/18/22 08:12 Dose: Not Given Documented By: DAVID Non-Admin Reason: PICC Vitamin D (Cholecalciferol (Vitamin D3) 25 Mcg Tablet) 50 mcg PO DAILY [facility] Last Admin: 09/18/22 08:11 Dose: 50 mcg Documented By: DAVID Labs 09/12/22 08:09 09/17/22 06:30 Labs: Laboratory Results - last 24 hr 09/17/22 09/17/22 09/17/22 11:01 16:40 20:04 POC Glucose 274 H 315 H 310 H 09/18/22 07:51 POC Glucose 272 H Assessment and Plan (1) Status post transmetatarsal amputation of right foot: Status: Acute (2) Bacteremia: Status: Acute Plan 52-year-old male with history of insulin-dependent type 2 diabetes, hypothyroidism, hyperlipidemia, hypertension, congestive heart failure, proteinuria, and nonhealing diabetic left foot ulcer who is morbidly obese admitted for nonhealing diabetic foot ulcer of the right foot with cellulitis and question of osteomyelitis. #Sepsis d/t nonhealing right diabetic foot ulcer with cellulitis and abscless #MRSA bacteremia source likely foot infection #E. feacalis bacteremia -s/p Left TMA on 09/[address] Dempsey with subsequent wound vac which was stopped 09/17 d/t some erythema around wound -echo no endocarditis -most recent blood culture 09/14 negative x 48 hrs -ID recommends 6 weeks of Vanco for MRSA and 6 weeks of Linezolid for E. Feacalis #acute kidney injury-likely related to hypovolemia, resolved with IVF acute hypOnatremia-likely related to hypovolemia and thiazide diuretic use improved. Hold thiazide diuretics. ?insulin-dependent type 2 diabetes with hyperglycemia -hemoglobin A1c 7.7 -continue basal insulin -Humalog on sliding scale -POC glucose -diabetic diet #?hypertension-continue home meds #hypOthyroidism-continue levothyroxine #?hyperlipidemia-continue Zetia and statin #Congestive heart failure, ejection fraction unspecified-euvolemic appearing, no acute exacerbation. #obesity -encouraged to lose weight. DVT prophylaxis-heparin Full code need for ipatient: IV Abx for OM, awaiting culture and longter IV Abx plans,wound vac -still drainaing,not optimal yet? . Time Spent With Patient Time: Total time managing care of this patient today ____ minutes. Quality Stroke Does the patient have a stroke diagnosis?: No VTE Prior VTE?: No VTE Risk Level:: Medical - moderate - high VTE Device Contraindication: Treatment Not Indicated VTE Drug Contraindication: N/A - Med Ordered
[2022-09-18] MEDS: Heparin Sodium,Porcine Flush 50 UNITS/5 ML SYRINGE IVFLUSH ×2 (09:39→16:56)
[2022-09-18 11:21] VITALS: BP 154/75; PULSE 70; RESP 18; TEMP 36.6; O2SAT 96
[2022-09-18 11:21] LABS: Glucose, Whole Blood 269 mg/dL (60-115)
[2022-09-18 16:03] VITALS: BP 136/67; PULSE 67; RESP 18; TEMP 36.4; O2SAT 94
[2022-09-18 16:43] LABS: Glucose, Whole Blood 324 mg/dL (60-115)
[2022-09-18 19:32] VITALS: BP 154/73; PULSE 73; RESP 20; TEMP 36.3; O2SAT 96
[2022-09-18] MEDS: 0.9 % Sodium Chloride Flush 3 ML SYRINGE IVFLUSH (19:58)
[2022-09-18 20:29] LABS: MANUAL DIFF FLAG NO
[2022-09-18 20:30] LABS: Glucose, Whole Blood 246 mg/dL (60-115)
[2022-09-18 20:52] LABS: Basophils Absolute Auto 0.1 X10*3/uL (0.0-0.2); Basophils Percent Auto 1.1 % (0-2); Eosinophils Absolute Auto 0.3 X10*3/uL (0.0-0.4); Eosinophils Percent Auto 3.7 % (0-4); Hematocrit 24.7 % (42.0-52.0); Hemoglobin 8.1 g/dl (14.0-18.0); Imm Gran Abs Auto 0.21 X10*3/uL (0.00-0.03); Imm Gran Pct Auto 2.3 % (0.0-0.4); Lymphocytes Absolute Auto 1.5 X10*3/uL (1.2-4.9); Lymphocytes Percent Auto 16.6 % (20-40); Mean Corpuscular HGB Conc 32.8 g/dl (31.0-36.0); Mean Corpuscular Hemoglobin 28.2 pg (27.0-33.0); Mean Corpuscular Volume 86.1 fL (80.0-98.0); Monocytes Absolute Auto 0.7 X10*3/uL (0.1-1.2); Monocytes Percent Auto 8.1 % (2-11); NRBC Pct Auto 0.3 /100WBC (0.0-0.2); Neutrophils Absolute Auto 6.2 x10*3/uL (2.0-8.3); Neutrophils Percent Auto 68.2 % (45-73); Platelet Count 278 X10*3/uL (160-400); Red Blood Count 2.87 X10*6/uL (4.60-5.80); Red Cell Distribution Width 14.3 % (11.0-16.0); White Blood Count 9.1 X10*3/uL (4.8-10.8)
[2022-09-18 20:58] LABS: Creatinine Clr Calc Pharmacy 107.9; Estimated Glomerular Filt Rate > 60
[2022-09-18] MEDS: vancomycin HCL 1,000 MG in 0.9 % Sodium Chloride 250 ML 270 MG IV (21:01)
[2022-09-18 21:02] LABS: Vancomycin Random 15.1 mcg/mL (15-20)
[2022-09-19] MEDS: Heparin Sodium,Porcine Flush 50 UNITS/5 ML SYRINGE IVFLUSH (00:47)
[2022-09-19 03:30] VITALS: BP 152/73; PULSE 62; RESP 16; TEMP 36.3; O2SAT 93
[2022-09-19] MEDS: Gabapentin 100 MG CAPSULE PO ×2 (04:35→11:24)
[2022-09-19] MEDS: Levothyroxine Sodium 150 MCG TABLET PO (04:35)
[2022-09-19 07:18] VITALS: BP 163/72; PULSE 71; RESP 18; TEMP 36.2; O2SAT 93
[2022-09-19 07:23] LABS: Glucose, Whole Blood 292 mg/dL (60-115)
[2022-09-19 08:33] LABS: Creatinine Clr Calc Pharmacy 104.8; Estimated Glomerular Filt Rate > 60
[2022-09-19] MEDS: Insulin Lispro 100 UNIT/ML 3 ML VIAL SUBCUT ×2 (08:58→11:24)
[2022-09-19] MEDS: Cholecalciferol (Vitamin D3) 25 MCG TABLET 50 MCG PO (09:05)
[2022-09-19] MEDS: Linezolid 600 MG TABLET PO (09:05)
[2022-09-19] MEDS: amLODIPine Besylate 5 MG TABLET PO (09:05)
[2022-09-19] MEDS: Fenofibrate 54 MG TABLET PO (09:06)
[2022-09-19] MEDS: lisinopriL 10 MG TABLET PO (09:06)
[2022-09-19] MEDS: Ezetimibe 10 MG TABLET PO (09:06)
[2022-09-19] MEDS: Escitalopram Oxalate 10 MG TABLET PO (09:06)
--- NOTE | 2022-09-19 09:06 | P.DS_ITS ---
DS: Providers Provider Date of Service: 09/19/22 Date of admission: 09/03/22 20:22 Primary care physician: Adwoa Fan MD Consults: 09/03/22 20:46 Consult to General Surgery Routine Consulting Provider: [facility] General Surgeons Reason for consultation: cellulitis/abscess nonhealing dm ulcer, ?PAD Consult to Infectious Diseases Routine Consulting Provider: [facility] Infectious Disease Reason for consultation: nonhealing dm foot ulcer with cellulitis, ?osteo DS: Diagnosis Discharge Diagnosis (1) Status post transmetatarsal amputation of right foot: Status: Acute (2) Bacteremia: Status: Resolved DS: Summary Hospital Course Hospital Course: Admission HPI Chief Complaint: food infection 52-year-old male with history of insulin-dependent type 2 diabetes, hypothyroidism, hyperlipidemia, hypertension, congestive heart failure, proteinuria, and nonhealing diabetic left foot ulcer who is morbidly obese presented to the ED from [facility] where he resides for evaluation of right lower extremity wound.? Per ED report, he had routine lab work performed at the nursing facility with significant leukocytosis as well as x-rays concerning for osteomyelitis.? The patient denies any fevers, chills, nausea, vomiting.? He is reporting 10/10 pain in the right foot.? He states he is ambulatory at baseline. He states the foot ulcer has been present for several months.? He was recently admitted and discharged on 06/29/2022 due to diabetic right foot wound with cellulitis.? At that time, MRI was negative for osteomyelitis though was seen by ID was still recommending 6 weeks IV ertapenem which he completed on 08/10/2022.? On arrival, blood pressure soft but no hypotension.? Vitals otherwise stable.? Leukocytosis of 20.5.? Creatinine 2.03, BUN 57, sodium 125, potassium 3.6, chloride 95, CO2 18, glucose 260.? ESR 112, CRP 25.? X-ray of the right foot showing mild soft tissue swelling but no periosteal thickening or bony erosion reported by Radiology.? Patient being treated empirically with vancomycin and cefepime. Hospital course: #This patient with longstanding diabetes and diabetic foot ulcer with history of osteomyelitis presented with what appeared to is right foot infection. MRI of the foot showed evidence of osteomyelitis involving the 4th and 5th metatarsals. There was also evidence of an abscess of the foot. His blood cultures grew MRSA and Enterococcus faecalis. He was initiated on vancomycin initially. Over the course of hospitalization ulcer continued to worsen to the point where the foot was now viable despite incision and drainage of abscess and the IV antibiotic. Therefore he underwent transmetatarsal amputation by Dr. Dempsey on 09/12. Subsequently he was put on a wound VAC however days later he developed some redness around the wound and therefore the wound VAC was discontinued. Presently the wound appeared to be doing fine, his WBCs which have been persistently elevated has finally come down from a high of 21,002 presently 9000. #Sepsis due to MRSA bacteremia and E. Feacalis bacteremia--initial culture from or September 03, grew MRSA. Repeat culture on September 11, grew 1/2 MRSA again. A 3rd culture from a much 24 has been negative for overt 72 hours. He is presently afebrile. Echocardiogram showed no evidence of endocarditis. Infectious Disease Dr. Fraser is recommended 6 weeks of IV vancomycin from last negative blood culture, last day of Vancomycin will be Saturday.. Check BMP and ramsamantha Felder weekly, last level was 15 on 09/18/2022 on vancomycin 1000 mg q.12 For E faecalis bacteremia from September 03, repeat cultures have been negative. Infectious Disease Dr. Fraser recommend a total of 6 weeks of linezolid and ending on October 26, 2022 #Acute kidney injury-likely related to hypovolemia, resolved with IVF, he presented on 09/03/2022 with creatinine of 2.03 which is acute renal failure for him. Following hydration his renal function has been normal with last cre atinine today 09/19 being 1.06 acute hypOnatremia-likely related to hypovolemia and thiazide, resolved and will discontinue HCTZ ?insulin-dependent type 2 diabetes with hyperglycemia -hemoglobin A1c 7.7, resume home regimen including Metformin, Trulicity, insulin, check sugars as usual #?hypertension-continue Lsinopril, Norvasc, hold HCTZ as stated #hypOthyroidism-continue levothyroxine #?hyperlipidemia-continue Zetia, Zocor and fenofibrate #Congestive heart failure, ejection fraction unspecified-euvolemic appearing, no acute exacerbation. #obesity -encouraged to lose weight. Time Spent with Patient Time attestation: Total time managing care of this patient today ____ minutes. Discharge coordination time: Greater than 30 minutes Quality: Safe Use of Opioids Does Pt have an Active Cancer Diagnosis on the Problem List?: No Quality: Stroke Does the patient have a stroke diagnosis?: No Physical Exam Vital Signs: Vital Signs: Last Vital Signs Temp 97.1 F 09/19/22 07:18 Pulse 71 09/19/22 07:18 Resp 18 09/19/22 07:18 BP 163/72 H 09/19/22 07:18 Pulse Ox 93 09/19/22 07:18 O2 Del Method Room Air 09/19/22 07:18 O2 Flow Rate 2 09/10/22 15:33 BMI result Body Mass Index 40.4 DS: Data Data Completed and Pending Completed studies during hospitalization [Text1]: Pending at discharge 09/12/22 13:37 Surgical [PTH] Routine Procedures Insertion of Infusion Device into Superior Vena Cava, Percutaneous Approach (06/20/22) Ultrasonography of Superior Vena Cava, Guidance (06/20/22) Labs on day of discharge: Laboratory Results - last 24 hr 09/18/22 09/18/22 09/18/22 11:10 16:37 20:04 WBC RBC Hgb Hct MCV MCH MCHC RDW Plt Count MPV Immature Gran % (Auto) Neut % (Auto) Lymph % (Auto) [place] % (Auto) Eos % (Auto) Baso % (Auto) Lymph # (Auto) [place] # (Auto) Eos # (Auto) Baso # (Auto) Abs Immat Gran (auto) Absolute Neuts (auto) Absolute Nucleated RBC Nucleated RBC % (auto) Creatinine Estim Creat Clear Calc Estimated GFR POC Glucose 269 H 324 H Random Vancomycin 15.1 09/18/22 09/18/22 09/18/22 20:04 20:04 20:26 WBC 9.1 RBC 2.87 L Hgb 8.1 L Hct 24.7 L MCV 86.1 MCH 28.2 MCHC 32.8 RDW 14.3 Plt Count 278 MPV 10.0 Immature Gran % (Auto) 2.3 H Neut % (Auto) 68.2 Lymph % (Auto) 16.6 L [place] % (Auto) 8.1 Eos % (Auto) 3.7 Baso % (Auto) 1.1 Lymph # (Auto) 1.5 [place] # (Auto) 0.7 Eos # (Auto) 0.3 Baso # (Auto) 0.1 Abs Immat Gran (auto) 0.21 H Absolute Neuts (auto) 6.2 Absolute Nucleated RBC 0.030 H Nucleated RBC % (auto) 0.3 H Creatinine 1.03 Estim Creat Clear Calc 107.9 Estimated GFR > 60 POC Glucose 246 H Random Vancomycin 09/19/22 09/19/22 07:16 07:49 WBC RBC Hgb Hct MCV MCH MCHC RDW Plt Count MPV Immature Gran % (Auto) Neut % (Auto) Lymph % (Auto) [place] % (Auto) Eos % (Auto) Baso % (Auto) Lymph # (Auto) [place] # (Auto) Eos # (Auto) Baso # (Auto) Abs Immat Gran (auto) Absolute Neuts (auto) Absolute Nucleated RBC Nucleated RBC % (auto) Creatinine 1.06 Estim Creat Clear Calc 104.8 Estimated GFR > 60 POC Glucose 292 H Random Vancomycin Preliminary micro results at discharge 09/14/22 16:31 Blood Culture - Preliminary Blood - Venous No growth after 48 hours. 09/14/22 16:31 Blood Culture - Preliminary Blood - Venous No growth after 48 hours. Discharge Plan Discharge Anticipated Discharge Date/Time: 09/19/22 09:07 Patient Disposition: er SNF Discharge Diagnosis: Osteomylitis of the foot, Bacteremia [facility] - 1 Week Adwoa Mcadams MD [Primary Care Provider] - 1 Week Discharge Medications: New linezolid 600 mg Tablet 600 mg PO Q12H 37 Days Qty: 74 0RF Rx Instructions: ending Oct 26 2022 vancomycin in 0.9 % sodium chl 1 gram/200 mL piggyback 1 g IV Q12H 37 Days Qty: 13505 0RF Rx Instructions: ending Oct 26 2022 Continued escitalopram oxalate 10 mg tablet 10 mg PO DAILY 90 Days Qty: 90 3RF (DME) FreeStyle Precision Gama Strips Strip See Rx Instructions .ROUTE .MEDSUPPLY Qty: 50 11RF Rx Instructions: As directed once daily (DME) FreeStyle Leonel 2 Sensor Kit See Rx Instructions .ROUTE .MEDSUPPLY Qty: 2 11RF Rx Instructions: As directed every 2 weeks ezetimibe [Zetia] 10 mg tablet 10 mg PO DAILY 90 Days Qty: 90 3RF fenofibrate 54 mg tablet 54 mg PO DAILY 90 Days Qty: 90 3RF (DME) right knee brace See Rx Instructions .Route .MEDSUPPLY Qty: 1 0RF Rx Instructions: As directed (DME) wrist splint bilateral See Rx Instructions .Route .MEDSUPPLY Qty: 2 0RF Rx Instructions: As directed (DME) high shower chair See Rx Instructions .Route .MEDSUPPLY Qty: 1 0RF Rx Instructions: As directed (DME) raised toilet seat See Rx Instructions .Route .MEDSUPPLY Qty: 1 0RF Rx Instructions: As directed levothyroxine 150 mcg tablet 150 mcg PO DAILY 90 Days Qty: 90 1RF gabapentin 100 mg capsule 100 mg PO Q8H 90 Days Qty: 270 0RF lisinopril 10 mg tablet 10 mg PO DAILY 90 Days Qty: 90 0RF amlodipine 10 mg tablet 10 mg PO DAILY 30 Days Qty: 30 4RF cholecalciferol (vitamin D3) 50 mcg (2,000 unit) capsule 50 mcg PO DAILY 90 Days Qty: 90 1RF simvastatin 40 mg tablet 40 mg PO DAILY 90 Days Qty: 90 3RF doxycycline hyclate 100 mg Tablet 100 mg PO BID Rx Instructions: UNTIL 09/12 ondansetron HCl 4 mg Tablet 4 mg PO Q6H PRN (Reason: Nausea) insulin aspart U-100 [Novolog FlexPen U-100 Insulin] 100 unit/mL (3 mL) insulin pen See Protocol subcut QIDACHS Protocol: Insulin Correction Scale Less than or equal to 110 ---- Give (units): 0 111 to 150 Give (units): 0 151 to 200 Give (units): 0 201 to 250 Give (units): 2 251 to 300 Give (units): 4 301 to 350 Give (units): 6 Greater than 350 Give (units): 8 Call MD if Blood Glucose > : 350 metformin 500 mg tablet 500 mg PO BIDWM insulin degludec [Tresiba FlexTouch U-200] 200 unit/mL (3 mL) insulin pen 40 unit subcut DAILY Trulicity 1.5 mg/0.5 mL pen injector 1.5 mg subcut FR Discontinued hydrochlorothiazide 25 mg tablet 25 mg PO DAILY 90 Days Qty: 90 1RF Discharge Orders: Discharge Order (Routine); Ordered 09/19/22 Ordered By: Yony Barber Diet: Diabetic diet Activity on Discharge: As tolerated Stand Alone Forms: Patient Portal Discharge page Activity Restrictions/Additional Instructions: DRESSING CHANGES for right transmetatarsal amputation site: 1. Change dressings to right foot daily 2. Pack 1/4 inch NuGauze packing into the medial abscess cavity daily 3. Apply saline wet to dry sterile gauze to the open wound 4. Cover with ABD pad followed by Kerlex wrap. 5. Wound care clinic evaluation recommended. Care Plan Goals: Recovery from bacteremia and and healing of amputation site Health Concerns: s/p trasmetatarsal amputation Plan of Treatment: IV vancomycin for 6 weeks, last day Linezolid for total of 6 weeks, last day Dressing changes as above Follow up with Dr. Dempsey 2 weeks Assessment: as above Discharge Date/Time: 09/19/22 15:10
[2022-09-19] MEDS: Heparin Sodium,Porcine 5,000 UNIT/ML VIAL 5000 UNIT SUBCUT (09:09)
[2022-09-19] MEDS: vancomycin HCL 1,000 MG in 0.9 % Sodium Chloride 250 ML 270 MG IV (09:16)
--- NOTE | 2022-09-19 09:23 | HE.PHANOTE ---
Vancomycin Dosing Addendum Patients renal function worsened over the past two days. Continue current dose of 1000 mg Q12H. Predicted AUC 501 mg/L/hr.
[2022-09-19 09:27] VITALS: BP 150/70; PULSE 75
[2022-09-19 11:11] LABS: Glucose, Whole Blood 294 mg/dL (60-115)
[2022-09-19 11:35] LABS: COVID-19 Test Negative (Negative); IDNOW Serial# 6674DD1D
[2022-09-19 12:00] VITALS: BP 124/57; PULSE 70; RESP 16; TEMP 36.2; O2SAT 96
--- NOTE | 2022-09-19 15:08 | PC.NURSE ---
senior software quality engineer at bedside or care and explanation of discharge. per pt, he was not informed by anyone that he is being discharged, the location and why. pt stated he thought he was going home. EMS was given report. PICC in place. Pt bathed this shift d/t incontinence. all belongings with pt. attempted to contact facility to give report but no answer, phone continued to ring then call would drop.
== END 2022-09-19 15:10 | disposition skilled nursing facility (03) | DRG 854 ==
LOC: HO.ED 18:51 → HO.EDOVER 20:43 → HO.S3 09-04 12:34
PROVIDERS: Internal Medicine; Student in an Organized Health Care Education/Training Program; Surgery; Admitting Provider Physician Assistant; Emergency Provider Emergency Medicine; PCP Internal Medicine; Visit Provider Internal Medicine
PROC: 0Y6M0Z9 Detachment at Right Foot, Partial 1st Ray, Open Approach (ICD-10-PCS; CPT 28805; principal; 2022-09-12 12:20)
DX: A41.02 Sepsis due to Methicillin resistant Staphylococcus aureus (principal); E11.52 Type 2 diabetes mellitus with diabetic peripheral angiopathy with gangrene; E87.1 Hypo-osmolality and hyponatremia; N17.9 Acute kidney failure, unspecified; L03.115 Cellulitis of right lower limb; Z68.41 Body mass index [BMI] 40.0-44.9, adult; M86.171 Other acute osteomyelitis, right ankle and foot; L02.611 Cutaneous abscess of right foot; A41.81 Sepsis due to Enterococcus; E06.3 Autoimmune thyroiditis; E86.1 Hypovolemia; E11.621 Type 2 diabetes mellitus with foot ulcer; I11.0 Hypertensive heart disease with heart failure; I50.9 Heart failure, unspecified; E11.65 Type 2 diabetes mellitus with hyperglycemia; E66.01 Morbid (severe) obesity due to excess calories; E11.69 Type 2 diabetes mellitus with other specified complication; B95.62 Methicillin resistant Staphylococcus aureus infection as the cause of diseases classified elsewhere; B95.2 Enterococcus as the cause of diseases classified elsewhere; E11.628 Type 2 diabetes mellitus with other skin complications; T50.2X5A Adverse effect of carbonic-anhydrase inhibitors, benzothiadiazides and other diuretics, initial encounter; Z20.822 Contact with and (suspected) exposure to COVID-19; Z88.8 Allergy status to other drugs, medicaments and biological substances; Z79.4 Long term (current) use of insulin; Z79.84 Long term (current) use of oral hypoglycemic drugs; Z79.899 Other long term (current) drug therapy
CPT/HCPCS: 36415; 36573; 70250; 71045; 73630; 73720; 74018; 80048; 80202; 81001; 82565; 82947; 83036; 83605; 83935; 84300; 85025; 85027; 85652; 86140; 87040; 87077; 87086; 87186; 87205; 87493; 87635; 88305; 88311; 93306; 93926; 96365; 99285; A9585; C1751; J0690; J0692; J1642; J1643; J2795; J3010; J3370; J3371; P9047; Q9957

== ENCOUNTER 2022-09-22 10:41 | Emergency (ER) | payer OTHER, SELFPAY ==
[2022-09-22 10:47] VITALS: BP 142/88; PULSE 90; O2SAT 98
[2022-09-22 10:48] VITALS: BP 120/53; PULSE 89; RESP 16; TEMP 36.8; O2SAT 96; BMI 32.3
--- NOTE | 2022-09-22 11:33 | ED_ITS ---
HPI - General Adult General Chief complaint: General Medical Stated complaint: Poss L foot infection per EMS Time Seen by Provider: 09/22/22 11:20 Source: EMS Mode of arrival: EMS Limitations: no limitations History of Present Illness HPI narrative: This is a 52-year-old male who was released from this hospital on September 19 after being treated for osteomyelitis of the right foot w/ MRSA/e. faecalis bacteremia which required transmetatarsal amputation with recommendations for 6 weeks of IV vancomycin/linezolid who presents to the ER from a [facility] facility with concern for fever with reported fever of 100 degrees F. patient reports he is feeling well. He does have some pain in the foot but he does not feel the pain is worse. He denies any increase in redness, swelling, drainage from the wound. Overall he has no additional concerns. Related Data Home Medications Medication Instructions Recorded Confirmed dulaglutide 1.5 mg/0.5 mL 1.5 mg subcut FR 06/20/22 09/03/22 subcutaneous pen injector (Trulicity) insulin aspart U-100 100 unit/mL See Protocol subcut QIDACHS 06/20/22 09/03/22 (3 mL) subcutaneous pen (Novolog FlexPen U-100 Insulin aspart) insulin degludec 200 unit/mL (3 40 unit subcut DAILY 06/20/22 09/03/22 mL) subcutaneous pen (Tresiba FlexTouch U-200 insulin) metformin 500 mg tablet 500 mg PO BIDWM 06/20/22 09/03/22 doxycycline hyclate 100 mg tablet 100 mg PO BID 09/03/22 09/03/22 ondansetron HCl 4 mg tablet 4 mg PO Q6H PRN Nausea 09/03/22 09/03/22 Previous Rx's Medication Instructions Recorded escitalopram oxalate 10 mg tablet 10 mg PO DAILY 90 days #90 tabs 05/22/21 blood sugar diagnostic (FreeStyle #50 ea 05/30/21 Precision Gama Strips) flash glucose sensor (FreeStyle #2 ea 06/01/21 Leonel 2 Sensor kit) ezetimibe 10 mg tablet (Zetia) 10 mg PO DAILY 90 days #90 tabs 08/31/21 fenofibrate 54 mg tablet 54 mg PO DAILY 90 days #90 tabs 09/20/21 right knee brace #1 ea 10/09/21 wrist splint bilateral #2 ea 10/09/21 high shower chair #1 ea 10/31/21 raised toilet seat #1 ea 11/01/21 levothyroxine 150 mcg tablet 150 mcg PO DAILY 90 days #90 tabs 03/23/22 gabapentin 100 mg capsule 100 mg PO Q8H 90 days #270 caps 04/19/22 lisinopril 10 mg tablet 10 mg PO DAILY 90 days #90 tabs 05/04/22 amlodipine 10 mg tablet 10 mg PO DAILY 30 days #30 tabs 06/07/22 cholecalciferol (vitamin D3) 50 50 mcg PO DAILY 90 days #90 caps 06/08/22 mcg (2,000 unit) capsule simvastatin 40 mg tablet 40 mg PO DAILY 90 days #90 tabs 09/03/22 linezolid 600 mg tablet 600 mg PO Q12H 37 days #74 tabs 09/19/22 vancomycin 1 gram/200 mL in 0.9 % 1 g (200 mL) IV Q12H 37 days 09/19/22 sod. chloride intravenous piggyback #14,800 mL Allergies Allergy/AdvReac Type Severity Reaction Status Date / Time atorvastatin [ATORVASTATIN] Allergy Unknown skin Verified 12/27/21 10:50 eruption Review of Systems Review of Systems: Yes all other systems are reviewed and are negative Constitutional: Constitutional: Reports no additional constitutional complaints, Denies body ache(s), Denies chills, Reports fever(s), Denies headache(s) and Denies weakness Eyes: Eyes: Reports no additional eye complaints and Denies change in vision ENT: Reports system reviewed and no additional complaints, except as documented, Denies dizziness, Denies headache(s), Denies nasal congestion, Denies nasal discharge and Denies neck pain Cardiovascular: Cardiovascular: Reports no additional cardiovascular complaints, Denies chest pain, Denies leg edema and Denies dyspnea Respiratory: Respiratory: Reports no additional respiratory complaints, Denies cough and Denies dyspnea Gastrointestinal: Gastrointestinal: Reports no additional gastrointestinal complaints, Denies abdominal pain, Denies diarrhea, Denies nausea and Denies vomiting Genitourinary: Genitourinary: Denies urinary incontinence Musculoskeletal: Musculoskeletal: Reports no additional musculoskeletal complaints, Denies back pain, Denies arthralgias, Denies joint swelling, Denies neck pain, Denies numbness and Denies tingling Integumentary/Breasts: Skin/Breast: Reports system reviewed and no additional complaints, except as docu and Denies rash Neurologic: Reports system reviewed and no additional complaints, except as documented, Denies dizziness, Denies headache(s), Denies numbness, Denies tingling and Denies weakness PMF Past Medical History Attestation statement: The following information was validated with the patient. Source: old records reviewed and nursing notes reviewed Medical History Acute kidney injury Autoimmune thyroiditis Bacteremia Bilateral hand pain Cataracts, both eyes CHF (congestive heart failure) Cognitive developmental delay Diabetes Diabetic ketoacidosis Edema Essential hypertension HTN (hypertension) Hyperkalemia Hyperlipidemia Hyperlipidemia LDL goal <100 Hyponatremia Hypothyroid Hypovitaminosis D Infection of penis Left foot pain Obesity due to excess calories Proteinuria Right foot pain Right knee pain Type 2 diabetes mellitus with hyperglycemia, with long-term current use of insulin Type 2 diabetes mellitus with other diabetic kidney complication Surgical History Hx of cataract surgery Hx of removal of cyst Family History Family History Father HTN (hypertension) Mother Diabetes mellitus Maternal Grandmother Diabetes mellitus Social History Social History Household Members: Other Household Members Other:: SNF Housing: Assisted Living Facility Housing Other:: [facility] Alcohol intake: never Patient Tobacco Use Status: Never used Tobacco e-Cigarette/Vaping Use: Never Used Second Hand Smoke Exposure: No Substance Use Type: Caffiene Advance Directives: No Advance Directives Information Provided: Yes service: No Current occupational status: disabled Cognitive needs: Yes Hearing needs: No Vision needs: No Physical Exam ED Vital Signs: Vital Signs - 24 hr 09/22/22 10:48 09/22/22 13:43 Temperature 98.2 F 98.8 F Pulse Rate 89 78 Respiratory Rate 16 16 Blood Pressure 120/53 L 133/64 Pulse Oximetry 96 94 Oxygen Delivery Method Room Air Room Air BMI result Body Mass Index 32.3 Const General: cooperative, healthy appearing, comfortable and no acute distress Orientation/consciousness: patient oriented x3 Limitations: no limitations [facility] Head: Yes normal to inspection Ears: hearing grossly normal bilaterally Eyes General: appearance normal, both eyes and all related structures Pupils: Equal, round and reactive pupils present Neck Neck: Yes normal visual inspection Chest Chest palpation & inspection: normal inspection of the chest Resp Effort & Inspection: normal respiratory effort Cardio Rate: regular rate Rhythm: regular rhythm Peripheral pulses: Peripheral pulses 2+ throughout GI Inspection: Yes normal to inspection Back/Spine/Pelvis Thoracic/Lumbar Spine: thoracic and lumbar spine normal to inspection Skin General skin exam: no rashes or lesions noted Neuro General: patient oriented x3 and moves all extremities Cranial nerves: Yes Equal, round and reactive pupils present Cognition (Neuro): normal cognition Extrem Other: To the right distal foot there is a surgical wound noted. There is granulation tissue present. There is no surrounding erythema, swelling, tenderness. There are palpable pulses. Course Course Course Narrative: Overall patient nontoxic appearing. Afebrile here. Patient has no additional concerns. I did speak to Infectious Disease who feels the patient can continue with his current plan of care and IV antibiotics with no changes. I will speak to the on-call provider at [facility] to communicate this to them and see if they have any additional concerns Reevaluation(s) Reevaluation #1: [id number] spoke to the on-call nurse practitioner at [facility] Janeth Cuellar. We discussed the patient and she is agreeable with accepting the patient back and does not feel that anything additional is needed. Medical Decision Making Medical Decision Making [facility] Narrative: 52-year-old male who presents today with concern for fever of 100 degrees F from a [facility] facility. Patient is currently there for IV antibiotics for right foot osteomyelitis, MRSA/e.faecalis bacteremia after being admitted to this facility September 03 through September 19. Patient reports some discomfort but this is not worsened from his usual discomfort and is being well controlled with his pain medication. He denies any increase in swelling, redness, drainage from the wound. Overall he is feeling well On arrival patient afebrile, nontoxic-appearing As he is currently on an IV antibiotics I am not sure that repeating labs today would be helpful. I will discuss with his infectious disease doctor to see if there is any additional concerns Differential Diagnosis Differential Diagnoses: The differential diagnosis associated with the presentation includes Consult Healthcare Provider Management of the patient was discussed with: Type Photography Supervisor TIFFANIE melgar [id number] spoke to Infectious Disease. They have no additional concerns about the patient. They do not feel like the treatment would change if we had repeat labs or cultures today. The they feel the patient can continue his previous recommendations for IV antibiotics. Independent Historian Clinical information obtained from an independent historian. History obtained from or confirmed by: EMS External Record Review External record reviewed: Inpatient record Reviewed records from previous admission Discharge Plan Discharge Clinical Impression: Osteomyelitis, Bacteremia Patient Disposition: Xfer [facility] Transfer Details: [facility] Prescriptions: No Action escitalopram oxalate 10 mg tablet 10 mg PO DAILY 90 Days Qty: 90 3RF (DME) FreeStyle Precision Gama Strips Strip See Rx Instructions .ROUTE .MEDSUPPLY Qty: 50 11RF Rx Instructions: As directed once daily (DME) FreeStyle Leonel 2 Sensor Kit See Rx Instructions .ROUTE .MEDSUPPLY Qty: 2 11RF Rx Instructions: As directed every 2 weeks ezetimibe [Zetia] 10 mg tablet 10 mg PO DAILY 90 Days Qty: 90 3RF fenofibrate 54 mg tablet 54 mg PO DAILY 90 Days Qty: 90 3RF (DME) right knee brace See Rx Instructions .Route .MEDSUPPLY Qty: 1 0RF Rx Instructions: As directed (DME) wrist splint bilateral See Rx Instructions .Route .MEDSUPPLY Qty: 2 0RF Rx Instructions: As directed (DME) high shower chair See Rx Instructions .Route .MEDSUPPLY Qty: 1 0RF Rx Instructions: As directed (DME) raised toilet seat See Rx Instructions .Route .MEDSUPPLY Qty: 1 0RF Rx Instructions: As directed levothyroxine 150 mcg tablet 150 mcg PO DAILY 90 Days Qty: 90 1RF gabapentin 100 mg capsule 100 mg PO Q8H 90 Days Qty: 270 0RF lisinopril 10 mg tablet 10 mg PO DAILY 90 Days Qty: 90 0RF amlodipine 10 mg tablet 10 mg PO DAILY 30 Days Qty: 30 4RF cholecalciferol (vitamin D3) 50 mcg (2,000 unit) capsule 50 mcg PO DAILY 90 Days Qty: 90 1RF simvastatin 40 mg tablet 40 mg PO DAILY 90 Days Qty: 90 3RF doxycycline hyclate 100 mg Tablet 100 mg PO BID Rx Instructions: UNTIL 09/12 ondansetron HCl 4 mg Tablet 4 mg PO Q6H PRN (Reason: Nausea) linezolid 600 mg Tablet 600 mg PO Q12H 37 Days Qty: 74 0RF Rx Instructions: ending Oct 26 2022 vancomycin in 0.9 % sodium chl 1 gram/200 mL piggyback 1 g IV Q12H 37 Days Qty: 52902 0RF Rx Instructions: ending Oct 26 2022 insulin aspart U-100 [Novolog FlexPen U-100 Insulin] 100 unit/mL (3 mL) insulin pen See Protocol subcut QIDACHS Protocol: Insulin Correction Scale Less than or equal to 110 ---- Give (units): 0 111 to 150 Give (units): 0 151 to 200 Give (units): 0 201 to 250 Give (units): 2 251 to 300 Give (units): 4 301 to 350 Give (units): 6 Greater than 350 Give (units): 8 Call MD if Blood Glucose > : 350 metformin 500 mg tablet 500 mg PO BIDWM insulin degludec [Tresiba FlexTouch U-200] 200 unit/mL (3 mL) insulin pen 40 unit subcut DAILY Trulicity 1.5 mg/0.5 mL pen injector 1.5 mg subcut FR Interventions: ED Discharge Assessment Last Done: 09/22/22 14:43
[2022-09-22 13:43] VITALS: BP 133/64; PULSE 78; RESP 16; TEMP 37.1; O2SAT 94
--- NOTE | 2022-09-22 14:46 | PC.NURSE ---
report given to tunde at [facility]
== END 2022-09-22 14:46 | disposition skilled nursing facility (03) ==
PROVIDERS: Emergency Provider Emergency Medicine
DX: E11.69 Type 2 diabetes mellitus with other specified complication (principal); M86.8X7 Other osteomyelitis, ankle and foot; R78.81 Bacteremia; R50.9 Fever, unspecified; I11.0 Hypertensive heart disease with heart failure; I50.9 Heart failure, unspecified; E78.5 Hyperlipidemia, unspecified; Z89.431 Acquired absence of right foot; Z79.4 Long term (current) use of insulin; Z79.02 Long term (current) use of antithrombotics/antiplatelets; Z79.899 Other long term (current) drug therapy
CPT/HCPCS: 99284

== ENCOUNTER → 2022-10-05 09:07 | Outpatient (BNVA) | payer OTHER, SELFPAY | PROVIDERS: Visit Provider Surgery ==

== ENCOUNTER 2022-10-12 17:16 | Inpatient (IN) | payer OTHER, SELFPAY ==
--- NOTE | ~2022-10-12 | NM_ITS ---
EXAMINATION: BILIARY TRACT IMAGING STUDY CLINICAL INFORMATION: Abdominal pain, nausea, vomiting, diabetes, question of cholecystitis on recent CT scan.. COMPARISON: No previous biliary scan is available for comparison. Abdominal ultrasound and CT scan of the abdomen and pelvis both dated 10/13/2022 are available for comparison.. TECHNIQUE: Serial gamma scintillation camera images were obtained over the abdomen for a total observation period of 4 hours following the intravenous administration of 5.0 mCi Tc-99m Mebrofenin. FINDINGS: There is good concentration of activity in the liver by 5 minutes post injection. Biliary activity is visualized by 10 minutes. Small bowel is well visualized by 20 minutes. The gallbladder is not visualized at any time during the study up to 4 hours post injection. On delayed images obtained at this time, there is mild diffuse activity present throughout the liver but no visualization of the gallbladder. Intense diffuse activity is seen throughout the small bowel. NM/NM hepatobiliary wo pharm IMPRESSION: Nonvisualization the gallbladder is evidence of an obstructed cystic duct and strong evidence to suggest the diagnosis of acute cholecystitis. This can also be seen with chronic cholecystitis. The common bile duct is patent. Liver function is probably normal, but the mild diffuse retention of activity in the liver on the 4 hour delayed images suggests some diffuse hepatocellular dysfunction may be present.
--- NOTE | ~2022-10-12 | CT_ITS ---
EXAMINATION: CT ABDOMEN AND PELVIS WITHOUT CONTRAST CLINICAL INFORMATION: Abdominal pain COMPARISON: Previous exam November 2018 TECHNIQUE: Multidetector volumetric imaging was performed from the superior aspect of the liver through the pubic symphysis. Sagittal and coronal reformatted images were obtained on the technologist's workstation. This CT examination was performed using dose optimization techniques as appropriate, variously including the following: *Automated exposure control *Adjustment of mA and/or kV according to patient size (this includes techniques or standardized protocols for targeted exams where dose is matched to indication/reason for exam; i.e. extremities or head) *Use of iterative reconstruction technique DLP: 953 mGy-cm FINDINGS: LUNG BASES: Trace right pleural effusion. LIVER, GALLBLADDER, AND BILIARY TREE: The liver is normal in size, shape, and attenuation. No focal hepatic lesion or biliary ductal dilatation is present. The gallbladder is enlarged. No gallstones are seen by CT scan. There is indistinctness of the gallbladder wall and stranding of the pericholecystic fat. Appearance is questionable for cholecystitis. PANCREAS: Unremarkable. SPLEEN: Unremarkable. ADRENAL GLANDS: Unremarkable. KIDNEYS AND URETERS: The kidneys are normal in size, shape, and attenuation. No hydronephrosis, hydroureter, or calculi seen. No perinephric stranding. BLADDER: Unremarkable. GASTROINTESTINAL TRACT: There is wall thickening of the right colon, hepatic flexure and proximal transverse colon. There is also mild wall thickening of the second third portions of the duodenum. There is stranding of the surrounding fat in these regions. There is a stranding of fat tracking into the root of the small bowel mesentery. No evidence of obstruction or perforation. Small and large bowel is otherwise normal. The appendix is normal.. ABDOMINAL WALL: No significant hernia is appreciated. 1 cm nodule in the subcutaneous fat in the right lower quadrant LYMPH NODES: Small retroperitoneal and bilateral inguinal lymph nodes. No enlarged lymph nodes. No ascites. VASCULAR: Unremarkable. PELVIC VISCERA: Unremarkable. OSSEOUS STRUCTURES: Unremarkable. CT/CT abdomen pelvis wo IV con IMPRESSION: Abnormal gallbladder. The gallbladder is dilated, there is indistinctness of the gallbladder wall and there is stranding of the pericholecystic fat. No gallstones appreciated by CT scan. There is also wall thickening of the adjacent colon, the ascending colon, hepatic flexure and proximal transverse colon, and stranding of the surrounding fat. There is also mild wall thickening of the second and third portions of the duodenum and stranding of the surrounding fat. It is uncertain whether this represents acute cholecystitis and reactive inflammatory changes of the bowel or represents a primary colitis of the colon and reactive inflammatory changes of the gallbladder and duodenum. Clinical correlation recommended. Follow-up HIDA scan and gallbladder ultrasound to evaluate for cholecystitis recommended. Findings will be communicated by the [place] work flow voice writing reporter. Fleischner guidelines were followed.
--- NOTE | ~2022-10-12 | US_ITS ---
EXAMINATION: US ABDOMEN LIMITED CLINICAL INFORMATION: Abdominal pain. Question cholecystitis on CT scan. COMPARISON: None available. TECHNIQUE: Real-time imaging of the gallbladder. FINDINGS: GALLBLADDER: Gallbladder is dilated measuring 12 x 4.5 x 4.5 cm. There is dependent echogenic material in the gallbladder suggestive of sludge. No gallstones. Gallbladder wall is thickened measuring 0.9 cm. There is fluid in the wall of the gallbladder. The medical technologist microbiology reports the patient is tender over the gallbladder. The common bile duct is normal in caliber measuring 0.4 cm. US/US abdomen limited IMPRESSION: Distended gallbladder with gallbladder wall thickening and edema. Sludge in the gallbladder. No gallstone seen. Appearance is suggestive of acalculous cholecystitis. Follow-up HIDA scan recommended. Findings will be communicated by the [place] work flow telecommunications professional.
[2022-10-12 17:24] VITALS: BP 118/72; BP 126/50; PULSE 88; PULSE 91; RESP 18; TEMP 36.9; O2SAT 94; O2SAT 99; BMI 41.4
--- NOTE | 2022-10-12 17:39 | ED.NAVMDI ---
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 Patient just complaining that he is not feeling good afebrile on arrival. Related Data Home Medications Medication Instructions Recorded Confirmed insulin aspart U-100 100 unit/mL See Protocol subcut QIDACHS 06/20/22 10/13/22 (3 mL) subcutaneous pen (Novolog FlexPen U-100 Insulin aspart) metformin 500 mg tablet 1,000 mg PO BIDWM 06/20/22 10/13/22 amlodipine 10 mg tablet 10 mg PO DAILY 10/12/22 10/13/22 cholecalciferol (vitamin D3) 50 50 mcg PO DAILY 10/12/22 10/13/22 mcg (2,000 unit) capsule dulaglutide 1.5 mg/0.5 mL 1.5 mg subcut QWEEK 10/12/22 10/13/22 subcutaneous [facility] ([facility]) escitalopram oxalate 10 mg tablet 10 mg PO DAILY 10/12/22 10/13/22 ezetimibe 10 mg tablet 10 mg PO DAILY 10/12/22 10/13/22 fenofibrate 54 mg tablet 54 mg PO DAILY 10/12/22 10/13/22 gabapentin 100 mg capsule 100 mg PO TID 10/12/22 10/13/22 insulin degludec 200 unit/mL (3 30 unit subcut DAILY 10/12/22 10/13/22 mL) subcutaneous pen (Tresiba FlexTouch U-200 insulin) levothyroxine 150 mcg tablet 150 mcg PO DAILY 10/12/22 10/13/22 lisinopril 10 mg tablet 10 mg PO DAILY 10/12/22 10/13/22 ondansetron HCl 4 mg tablet 4 mg PO 3XD PRN Nausea 10/12/22 10/13/22 simvastatin 40 mg tablet 40 mg PO BEDTIME 10/12/22 10/13/22 Previous Rx's Medication Instructions Recorded blood sugar diagnostic (FreeStyle #50 ea 05/30/21 Precision Gama Strips) flash glucose sensor (FreeStyle #2 ea 06/01/21 Leonel 2 Sensor kit) right knee brace #1 ea 10/09/21 wrist splint bilateral #2 ea 10/09/21 high shower chair #1 ea 10/31/21 raised toilet seat #1 ea 11/01/21 linezolid 600 mg tablet 600 mg PO Q12H 37 days #74 tabs 09/19/22 Allergies Allergy/AdvReac Type Severity Reaction Status Date / Time atorvastatin [ATORVASTATIN] Allergy Unknown skin Verified 10/05/22 09:31 eruption Review of Systems Review of Systems: Yes all other systems are reviewed and are negative [facility] Past Medical History Medical History Acute kidney injury Autoimmune thyroiditis Bacteremia Bilateral hand pain Cataracts, both eyes CHF (congestive heart failure) Cognitive developmental delay Diabetes Diabetic ketoacidosis Edema Essential hypertension HTN (hypertension) Hyperkalemia Hyperlipidemia Hyperlipidemia LDL goal <100 Hyponatremia Hypothyroid Hypovitaminosis D Infection of penis Left foot pain Obesity due to excess calories Proteinuria Right foot pain Right knee pain Type 2 diabetes mellitus with hyperglycemia, with long-term current use of insulin Type 2 diabetes mellitus with other diabetic kidney complication Surgical History 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) Hx of cataract surgery Hx of removal of cyst Family History Family History Father HTN (hypertension) Mother Diabetes mellitus Maternal Grandmother Diabetes mellitus Social History Social History Household Members: Other Household Members Other:: SNF Housing: Assisted Living Facility Housing Other:: assisted [place] Alcohol intake: never Patient Tobacco Use Status: Never used Tobacco e-Cigarette/Vaping Use: Never Used Second Hand Smoke Exposure: No Substance Use Type: Caffiene Advance Directives: Yes Advance Directives on File: Yes Advance Directives Date on File: 09/10/22 Nutrition Risks: No Nutritional Risk service: No Current occupational status: disabled Cognitive needs: Yes Hearing needs: No Vision needs: No Physical Exam Vital Signs: Vital Signs: Last Vital Signs Temp 98.2 F 10/13/22 02:07 Pulse 88 10/13/22 02:07 Resp 18 10/13/22 02:07 BP 142/70 H 10/13/22 02:07 Pulse Ox 99 10/13/22 02:07 O2 Del Method Room Air 10/13/22 02:07 BMI result Body Mass Index 41.4 Appearance: Alert. Oriented X3. No acute distress. Eyes: pallor+ ENT: Pharynx normal. Oral Mucosa moist Neck: Normal inspection. Neck supple. CVS: Normal heart rate and rhythm. Pulses normal. Respiratory: No respiratory distress. Equal air entry bilateral, no wheezing/rales/rhonchi Abdomen: Soft and nontender. Bowel sounds are present, no mass palpable, no CVA tenderness Skin: Skin warm and dry. Normal skin color. Normal skin turgor. Extremities: No lower extremity edema. No calf tenderness right metatarsal amputation picture of the wound as attached Neuro: Oriented X 3. No motor deficit. Medications Administered Generic Name Dose Route Start Last Admin Trade Name Freq PRN Reason Stop Dose Admin Lactated Ringer's 1,000 mls @ 80 mls/hr 10/13/22 00:15 10/13/22 01:30 Lr IVCONT 80 mls/hr .[id number] CRISPIN Administration Discontinued Medications Generic Name Dose Route Start Last Admin Trade Name Freq PRN Reason Stop Dose Admin Sodium Chloride 1,000 mls @ 999 mls/hr 10/12/22 17:40 10/12/22 20:31 Ns IV 10/12/22 18:40 Infused .Q1H1M ONE Infusion Piperacillin Sod/Tazobactam 50 mls @ 100 mls/hr 10/12/22 23:26 10/12/22 23:45 Sod 3.375 gm/ Sodium Chloride IV 10/12/22 23:55 100 mls/hr ONCE ONE Administration Ondansetron HCl 4 mg 10/12/22 17:51 10/12/22 18:21 Ondansetron Hcl 4 Mg/2 Ml Vial IVPUSH 10/12/22 17:52 4 mg ONCE ONE Administration Medical Decision Making Medical Decision Making MDM Narrative: Patient with nausea vomiting diarrhea from residential after right metatarsal amputation 2 weeks ago on vancomycin and Zyvox for VRE and MRSA bacteremia comes back as patient is not feeling good stool was negative for C diff , has elevated WBC count but normal lactic acid level will admit for worsening of the wound infection right foot Consult Healthcare Provider Management of the patient was discussed with: Hospitalist Lab Data [facility] [place] Lab Attestation statement: I reviewed the patient's lab results. 10/12/22 19:09 10/12/22 19:09 Labs: Lab Results 10/12/22 10/12/22 10/12/22 Range/Units 17:49 19:09 19:09 WBC 15.3 H (4.8-10.8) X10*3/uL RBC 2.66 L (4.60-5.80) X10*6/uL Hgb 7.4 L (14.0-18.0) g/dl Hct 22.5 L (42.0-52.0) % MCV 84.6 (80.0-98.0) fL MCH 27.8 (27.0-33.0) pg MCHC 32.9 (31.0-36.0) g/dl RDW 15.5 (11.0-16.0) % Plt Count 144 L D (160-400) X10*3/uL MPV 9.9 (9.4-12.4) fL Immature Gran % (Auto) 0.5 H (0.0-0.4) % Neut % (Auto) 87.6 H (45-73) % Lymph % (Auto) 5.8 L (20-40) % [place] % (Auto) 5.0 (2-11) % Eos % (Auto) 0.8 (0-4) % Baso % (Auto) 0.3 (0-2) % Lymph # (Auto) 0.9 L (1.2-4.9) X10*3/uL [place] # (Auto) 0.8 (0.1-1.2) X10*3/uL Eos # (Auto) 0.1 (0.0-0.4) X10*3/uL Baso # (Auto) 0.0 (0.0-0.2) X10*3/uL Abs Immat Gran (auto) 0.07 H (0.00-0.03) X10*3/uL Absolute Neuts (auto) 13.4 H (2.0-8.3) x10*3/uL Absolute Nucleated RBC 0.000 (0.0-0.012) X10*3/uL Nucleated RBC % (auto) 0.0 (0.0-0.2) /100WBC Sodium 138 (135-145) mmol/L Potassium 4.3 (3.3-5.1) mmol/L Chloride 108 (96-108) mmol/L Carbon Dioxide 19 L (22-29) mmol/L Anion Gap 15 (12-20) BUN 42 H (9-16) mg/dL Creatinine 2.81 H (0.5-1.4) mg/dL Estim Creat Clear Calc 35.2 Estimated GFR 24 Random Glucose 72 (60-115) mg/dL Lactic Acid (0.5-2.0) mmol/L Calcium 8.0 L (8.4-10.2) mg/dL Total Bilirubin 1.1 H (0.0-1.0) mg/dL AST 32 (5-37) U/L ALT 21 (0-40) U/L Alkaline Phosphatase 98 (39-117) U/L Total Protein 6.6 (6.5-8.0) g/dL Albumin 3.4 L (3.5-5.0) g/dL Lipase 20 (8-78) U/L C. difficile Tox B Gene NEGATIVE (Negative) 10/12/22 Range/Units 19:09 WBC (4.8-10.8) X10*3/uL RBC (4.60-5.80) X10*6/uL Hgb (14.0-18.0) g/dl Hct (42.0-52.0) % MCV (80.0-98.0) fL MCH (27.0-33.0) pg MCHC (31.0-36.0) g/dl RDW (11.0-16.0) % Plt Count (160-400) X10*3/uL MPV (9.4-12.4) fL Immature Gran % (Auto) (0.0-0.4) % Neut % (Auto) (45-73) % Lymph % (Auto) (20-40) % [place] % (Auto) (2-11) % Eos % (Auto) (0-4) % Baso % (Auto) (0-2) % Lymph # (Auto) (1.2-4.9) X10*3/uL [place] # (Auto) (0.1-1.2) X10*3/uL Eos # (Auto) (0.0-0.4) X10*3/uL Baso # (Auto) (0.0-0.2) X10*3/uL Abs Immat Gran (auto) (0.00-0.03) X10*3/uL Absolute Neuts (auto) (2.0-8.3) x10*3/uL Absolute Nucleated RBC (0.0-0.012) X10*3/uL Nucleated RBC % (auto) (0.0-0.2) /100WBC Sodium (135-145) mmol/L Potassium (3.3-5.1) mmol/L Chloride (96-108) mmol/L Carbon Dioxide (22-29) mmol/L Anion Gap (12-20) BUN (9-16) mg/dL Creatinine (0.5-1.4) mg/dL Estim Creat Clear Calc Estimated GFR Random Glucose (60-115) mg/dL Lactic Acid 1.2 (0.5-2.0) mmol/L Calcium (8.4-10.2) mg/dL Total Bilirubin (0.0-1.0) mg/dL AST (5-37) U/L ALT (0-40) U/L Alkaline Phosphatase (39-117) U/L Total Protein (6.5-8.0) g/dL Albumin (3.5-5.0) g/dL Lipase (8-78) U/L C. difficile Tox B Gene (Negative) External Record Review External record reviewed: Inpatient record Discharge Plan Discharge Clinical Impression: Post-operative infection Patient Disposition: Admitted As Inpatient Interventions: Admission Worksheet (ED) Last Done: 10/13/22 02:07 Discharge Date/Time: 10/13/22 02:08
[2022-10-12] MEDS: ondansetron HCL 4 MG/2 ML VIAL IVPUSH (18:21)
[2022-10-12] MEDS: 0.9 % Sodium Chloride 1,000 ML 999 ML IV (18:21)
[2022-10-12 19:01] LABS: CDiff Gene PCR NEGATIVE (Negative)
[2022-10-12 19:13] LABS: MANUAL DIFF FLAG NO
[2022-10-12 19:15] LABS: Basophils Percent Auto 0.3 % (0-2); Eosinophils Absolute Auto 0.1 X10*3/uL (0.0-0.4); Eosinophils Percent Auto 0.8 % (0-4); Hematocrit 22.5 % (42.0-52.0); Hemoglobin 7.4 g/dl (14.0-18.0); Imm Gran Abs Auto 0.07 X10*3/uL (0.00-0.03); Imm Gran Pct Auto 0.5 % (0.0-0.4); Lymphocytes Absolute Auto 0.9 X10*3/uL (1.2-4.9); Lymphocytes Percent Auto 5.8 % (20-40); Mean Corpuscular HGB Conc 32.9 g/dl (31.0-36.0); Mean Corpuscular Hemoglobin 27.8 pg (27.0-33.0); Mean Corpuscular Volume 84.6 fL (80.0-98.0); Mean Platelet Volume 9.9 fL (9.4-12.4); Monocytes Absolute Auto 0.8 X10*3/uL (0.1-1.2); Neutrophils Absolute Auto 13.4 x10*3/uL (2.0-8.3); Neutrophils Percent Auto 87.6 % (45-73); Platelet Count 144 X10*3/uL (160-400); Red Blood Count 2.66 X10*6/uL (4.60-5.80); Red Cell Distribution Width 15.5 % (11.0-16.0); White Blood Count 15.3 X10*3/uL (4.8-10.8)
[2022-10-12 19:25] LABS: Lactic Acid 1.2 mmol/L (0.5-2.0)
[2022-10-12 19:41] LABS: Alanine Aminotransferase 21 U/L (0-40); Albumin Level 3.4 g/dL (3.5-5.0); Alkaline Phosphatase 98 U/L (39-117); Anion Gap 15 (12-20); Aspartate Amino Transferase 32 U/L (5-37); Bilirubin Total 1.1 mg/dL (0.0-1.0); Blood Urea Nitrogen 42 mg/dL (9-16); Carbon Dioxide 19 mmol/L (22-29); Chloride 108 mmol/L (96-108); Creatinine Clr Calc Pharmacy 35.2; Estimated Glomerular Filt Rate 24; Glucose Random 72 mg/dL (60-115); Lipase 20 U/L (8-78); Potassium 4.3 mmol/L (3.3-5.1); Sodium 138 mmol/L (135-145); Total Protein 6.6 g/dL (6.5-8.0)
[2022-10-12 20:41] VITALS: BP 123/56; PULSE 96; RESP 19; O2SAT 98
[2022-10-12 22:37] VITALS: BP 108/58; PULSE 85; RESP 19; TEMP 36.8; O2SAT 100
[2022-10-12] MEDS: Piperacillin Sodium/Tazobactam 3.375 GM in 0.9 % Sodium Chloride 50 ML IV (23:45)
[2022-10-13] VITALS (7 sets, daily range): BP systolic 113–142; BP diastolic 62–79; PULSE 80–90; RESP 16–18; TEMP 36.3–36.8; O2SAT 97–100
--- NOTE | 2022-10-13 00:10 | PC.NURSE ---
Patient is alert and oriented x2 to self and place. Patient denies any pain/nausea/vomiting at present. Patient is able to follow simple commands, however confused at times Patient is unable to use a call sheppard despite education provided. Patient has PICC line in R AC, LR running at 80 mL/hr. Patient is incontinent of urine. [place] catheter applied to prevent skin breakdown and promote comfort. Patient removed [place] cath x2. Diabetic foot ulcer to fight foot assessed and dresse by ED.
--- NOTE | 2022-10-13 00:22 | P.HPHOSP_ITS ---
History of Present Illness Date of Service: 10/13/22 Chief Complaint: n/v 52M PMH DM, hypothyroid, hld, htn, morbid obesity, presented with nausea and vomiting. patient is a vague historian, reports multiple days of inability to tolerate po, nausea, vomiting, abdominal discomfort. patient is at SNF for antibiotics for DFU/OM complicated by MRSA bacteremia, right TMA 09/12/22. was discharged 09/19/22, seen by surgery 10/05/22 and site looked healing well. now sent to ED for concern of sepsis due to above symptoms. in ED found to have leukocytosis, tachycardia, KRISTIN. Review of Systems Review of Systems: Yes all other systems are reviewed and are negative [facility] Medical History Acute kidney injury Autoimmune thyroiditis Bacteremia Bilateral hand pain Cataracts, both eyes CHF (congestive heart failure) Cognitive developmental delay Diabetes Diabetic ketoacidosis Edema Essential hypertension HTN (hypertension) Hyperkalemia Hyperlipidemia Hyperlipidemia LDL goal <100 Hyponatremia Hypothyroid Hypovitaminosis D Infection of penis Left foot pain Obesity due to excess calories Proteinuria Right foot pain Right knee pain Type 2 diabetes mellitus with hyperglycemia, with long-term current use of insulin Type 2 diabetes mellitus with other diabetic kidney complication Family History Father HTN (hypertension) Mother Diabetes mellitus Maternal Grandmother Diabetes mellitus Surgical History 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) Hx of cataract surgery Hx of removal of cyst Social History Household Members: Other Household Members Other:: SNF Housing: Assisted Living Facility Housing Other:: [facility] Alcohol intake: never Patient Tobacco Use Status: Never used Tobacco e-Cigarette/Vaping Use: Never Used Second Hand Smoke Exposure: No Substance Use Type: Caffiene Advance Directives: Yes Advance Directives on File: Yes Advance Directives Date on File: 09/10/22 service: No Current occupational status: disabled Cognitive needs: Yes Hearing needs: No Vision needs: No Meds Allergies Allergy/AdvReac Type Severity Reaction Status Date / Time atorvastatin [ATORVASTATIN] Allergy Unknown skin Verified 10/05/22 09:31 eruption Active Medications: Current Medications Amlodipine Besylate (Amlodipine Besylate 10 Mg Tablet) 10 mg PO DAILY [facility]; Protocol Diphenhydramine HCl (Diphenhydramine Hcl 50 Mg/Ml Vial) 25 mg IVPUSH Q6H PRN PRN Reason: nausea Ezetimibe (Ezetimibe 10 Mg Tablet) 10 mg PO DAILY [facility] Escitalopram Oxalate (Escitalopram Oxalate 10 Mg Tablet) 10 mg PO DAILY [facility] Fenofibrate (Fenofibrate 54 Mg Tablet) 54 mg PO DAILY [facility] Gabapentin (Gabapentin 100 Mg Capsule) 100 mg PO TID [facility] Glucose (Glucose Gel 15 Gm Gel..Gram.) 15 gm PO Q15M PRN; Protocol PRN Reason: per Hypoglycemia Standing Ord. Heparin Sodium (Porcine) (Heparin Sodium,Porcine 5,000 Unit/Ml Vial) 5,000 unit SUBCUT Q8H [facility] Dextrose (D10) 250 mls @ 750 mls/hr IV Q15M PRN; Protocol PRN Reason: per Hypoglycemia Standing Ord. Lactated Ringer's (Lr) 1,000 mls @ 80 mls/hr IVCONT .[id number] [facility] Vancomycin HCl 1,000 mg/ (Sodium Chloride) 270 mls @ 270 mls/hr IV Q24H [facility] Insulin Human Lispro (Insulin Lispro 100 Unit/Ml 3 Ml Vial) 0 unit SUBCUT QIDACHS [facility]; Protocol Levothyroxine Sodium (Levothyroxine Sodium 150 Mcg Tablet) 150 mcg PO DAILY [facility] Ondansetron HCl (Ondansetron Odt 4 Mg Tab.Rapdis) 4 mg TRANSLINGU Q6H PRN PRN Reason: [place] Pharmacy Consult (Consult Rx Vancomycin Dosing) 1 each MISCELLANE DAILY PRN PRN Reason: Consult order Sodium Chloride (0.9 % Sodium Chloride Flush 3 Ml Syringe) 3 ml IVFLUSH QSHIFT [facility] Vitamin D (Cholecalciferol (Vitamin D3) 25 Mcg Tablet) 50 mcg PO DAILY [facility] Home Medications Medication Instructions Recorded Confirmed Last Taken Type insulin aspart U-100 100 unit/mL See Protocol subcut QIDACHS 06/20/22 10/13/22 06/20/22 History (3 mL) subcutaneous pen (Novolog FlexPen U-100 Insulin aspart) metformin 500 mg tablet 1,000 mg PO BIDWM 1210/13/22 06/20/22 History amlodipine 10 mg tablet 10 mg PO DAILY 10/12/22 10/13/22 Unknown History cholecalciferol (vitamin D3) 50 50 mcg PO DAILY 10/12/22 10/13/22 Unknown History mcg (2,000 unit) capsule dulaglutide 1.5 mg/0.5 mL 1.5 mg subcut QWEEK 10/12/22 10/13/22 Unknown History subcutaneous pen injector ([facility]) escitalopram oxalate 10 mg tablet 10 mg PO DAILY 10/12/22 10/13/22 Unknown History ezetimibe 10 mg tablet 10 mg PO DAILY 10/12/22 10/13/22 Unknown History fenofibrate 54 mg tablet 54 mg PO DAILY 10/12/22 10/13/22 Unknown History gabapentin 100 mg capsule 100 mg PO TID 10/12/22 10/13/22 Unknown History insulin degludec 200 unit/mL (3 30 unit subcut DAILY 10/12/22 10/13/22 Unknown History mL) subcutaneous pen (Tresiba FlexTouch U-200 insulin) levothyroxine 150 mcg tablet 150 mcg PO DAILY 10/12/22 10/13/22 Unknown History lisinopril 10 mg tablet 10 mg PO DAILY 10/12/22 10/13/22 Unknown History ondansetron HCl 4 mg tablet 4 mg PO 3XD PRN Nausea 10/12/22 10/13/22 Unknown H istory simvastatin 40 mg tablet 40 mg PO BEDTIME 10/12/22 10/13/22 Unknown History Physical Exam Vital Signs and Narrative: Vital Signs: Last Vital Signs Temp 98.2 F 10/12/22 22:37 Pulse 85 10/12/22 22:37 Resp 19 10/12/22 22:37 BP 108/58 L 10/12/22 22:37 Pulse Ox 100 10/12/22 22:37 O2 Del Method Room Air 10/12/22 22:37 BMI result Body Mass Index 41.4 General: AO X 3, nauseous Resp: CTA bilateral, no accessory muscles used CVS: S1,S2,RRR GI: soft, non tender, non distended right TMA - appears well helaing (see ED pic) Results Labs 10/12/22 19:09 10/12/22 19:09 Labs: Laboratory Results - last 24 hr 10/12/22 10/12/22 10/12/22 17:49 19:09 19:09 MCV 84.6 MCH 27.8 MCHC 32.9 RDW 15.5 Plt Count 144 L D MPV 9.9 Immature Gran % (Auto) 0.5 H Neut % (Auto) 87.6 H Lymph % (Auto) 5.8 L [place] % (Auto) 5.0 Eos % (Auto) 0.8 Baso % (Auto) 0.3 Lymph # (Auto) 0.9 L [place] # (Auto) 0.8 Eos # (Auto) 0.1 Baso # (Auto) 0.0 Abs Immat Gran (auto) 0.07 H Absolute Neuts (auto) 13.4 H Absolute Nucleated RBC 0.000 Nucleated RBC % (auto) 0.0 Anion Gap 15 Estim Creat Clear Calc 35.2 Estimated GFR 24 Random Glucose 72 Lactic Acid Calcium 8.0 L Total Bilirubin 1.1 H AST 32 ALT 21 Alkaline Phosphatase 98 Total Protein 6.6 Albumin 3.4 L Lipase 20 C. difficile Tox B Gene NEGATIVE 10/12/22 19:09 MCV MCH MCHC RDW Plt Count MPV Immature Gran % (Auto) Neut % (Auto) Lymph % (Auto) [place] % (Auto) Eos % (Auto) Baso % (Auto) Lymph # (Auto) [place] # (Auto) Eos # (Auto) Baso # (Auto) Abs Immat Gran (auto) Absolute Neuts (auto) Absolute Nucleated RBC Nucleated RBC % (auto) Anion Gap Estim Creat Clear Calc Estimated GFR Random Glucose Lactic Acid 1.2 Calcium Total Bilirubin AST ALT Alkaline Phosphatase Total Protein Albumin Lipase C. difficile Tox B Gene Assessment and Plan (1) Diabetic foot ulcer: Status: Acute Plan 52M PMH DM, hypothyroid, hld, htn, morbid obesity, presented with nausea and vomiting. patient is a vague historian, reports multiple days of inability to tolerate po, nausea, vomiting, abdominal discomfort. severe sepsis (wbcs, tachycardia, KRISTIN) ?due to foot ulcer due to diabetes, at [facility] site continue vanc, zyvox, check vanc level id, surgery eval cultures n/v antiemetics, ivf KRISTIN dehydration vs vanco tox check level ivf, hold anusha-i, monitor bmp DM insulin pocs hypothryoid synthroid htn amlodipine hold lisinopril for kristin hld hold zocor (non formulary), has lipitor allergy morbid obesity weight loss recommended dvt prophylaxis - hep sq full code patient with severe sepsis and kristin, requiring iv abx, ivf, close monitorin, at risk for further decompensation due to DM, morbid obesity, therefore, expected to require atleast 2 midnights inpatient. Time Spent With Patient Time: Total time managing care of this patient today ____ minutes. Quality Stroke Does the patient have a stroke diagnosis?: No VTE Prior VTE?: No VTE Risk Level:: Medical - moderate - high VTE Device Contraindication: Treatment Not Indicated VTE Drug Contraindication: N/A - Med Ordered
[2022-10-13] MEDS: Lactated Ringers 1,000 ML 80 ML IVCONT ×2 (01:30→12:06)
[2022-10-13 01:40] LABS: Vancomycin Random 13.7 mcg/mL (15-20)
--- NOTE | 2022-10-13 01:49 | PC.NURSE ---
Nurse to nurse report given to Floyd multimedia editor. Patient to be transported to med surg 375 by technical buyer.
[2022-10-13] MEDS: vancomycin HCL 1,500 MG in 0.9 % Sodium Chloride 500 ML 333.33 MG IV (04:57)
[2022-10-13] MEDS: Levothyroxine Sodium 150 MCG TABLET PO (05:03)
[2022-10-13] MEDS: Heparin Sodium,Porcine 5,000 UNIT/ML VIAL 5000 UNIT SUBCUT ×3 (05:03→23:01)
--- NOTE | 2022-10-13 07:06 | PM.EVENT ---
Event Note Date of Service: 10/13/22 Event Note: Pt seen/examined. Admitted this morning for diabetic foot ulcer had diabetic foot ulcer with MRSA bacteremia in august s/p R TMA on 09/12 and here with sepsis d/t wound infection. A/P today per H and P of this morning, continue Zyvox, surgery and ID consult Time Spent With Patient Time: Total time managing care of this patient today ____ minutes.
[2022-10-13 07:26] LABS: Creatinine Clr Calc Pharmacy 47.2; Estimated Glomerular Filt Rate 33
[2022-10-13 07:40] LABS: Glucose, Whole Blood 78 mg/dL (60-115)
--- NOTE | 2022-10-13 08:26 | P.CONGS_ITS ---
History of Present Illness Consult details Consult date: 10/13/22 Requesting physician: Yony Barber Narrative: 52-year-old male patient well known to the surgical service with a prior history of a right transmetatarsal amputation for multiple foot abscess collections and gangrene on 09/12/2022 now admitted for abdominal pain, nausea and vomiting found to have an elevated WBC. Surgical consultation requested for management of the right foot wound. Wound was left open postop due to gangrene. Initially a wound VAC was applied however this was stopped after 2 days. Current dressings include silver alginate and dry clean dressings. Review of Systems Review of Systems: Yes all other systems are reviewed and are negative [facility] Past Medical History Medical History Acute kidney injury Autoimmune thyroiditis Bacteremia Bilateral hand pain Cataracts, both eyes CHF (congestive heart failure) Cognitive developmental delay Diabetes Diabetic ketoacidosis Edema Essential hypertension HTN (hypertension) Hyperkalemia Hyperlipidemia Hyperlipidemia LDL goal <100 Hyponatremia Hypothyroid Hypovitaminosis D Infection of penis Left foot pain Obesity due to excess calories Proteinuria Right foot pain Right knee pain Type 2 diabetes mellitus with hyperglycemia, with long-term current use of insulin Type 2 diabetes mellitus with other diabetic kidney complication Family History Family History Father HTN (hypertension) Mother Diabetes mellitus Maternal Grandmother Diabetes mellitus Surgical History Surgical History 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) Hx of cataract surgery Hx of removal of cyst Social History Social History Household Members: Unknown / Unable to assess Household Members Other:: SNF Housing: Unknown / Unable to assess Housing Other:: [facility], [place] Unable to assess alcohol history related to: Unknown Alcohol intake: never Patient Tobacco Use Status: Never used Tobacco e-Cigarette/Vaping Use: Never Used Second Hand Smoke Exposure: No Use of substances other than those prescribed or required for medical reasons: Unknown Substance Use Type: Caffiene Advance Directives: Yes Advance Directives on File: Yes Advance Directives Date on File: 09/10/22 Do you have thoughts of harming others: None Do you have a plan to hurt others: No Plan Recently lost weight without trying: Unsure Eating poorly because of decreased appetite: No Nutrition Risks: No Nutritional Risk Poor oral hygiene: No service: No Current occupational status: disabled Cognitive needs: Yes Hearing needs: No Vision needs: No Meds Allergies Allergy/AdvReac Type Severity Reaction Status Date / Time atorvastatin [ATORVASTATIN] Allergy Unknown skin Verified 10/05/22 09:31 eruption Active Medications: Current Medications Amlodipine Besylate (Amlodipine Besylate 10 Mg Tablet) 10 mg PO DAILY [facility]; Protocol Diphenhydramine HCl (Diphenhydramine Hcl 50 Mg/Ml Vial) 25 mg IVPUSH Q6H PRN PRN Reason: nausea Ezetimibe (Ezetimibe 10 Mg Tablet) 10 mg PO DAILY [facility] Escitalopram Oxalate (Escitalopram Oxalate 10 Mg Tablet) 10 mg PO DAILY [facility] Fenofibrate (Fenofibrate 54 Mg Tablet) 54 mg PO DAILY [facility] Gabapentin (Gabapentin 100 Mg Capsule) 100 mg PO TID [facility] Glucose (Glucose Gel 15 Gm Gel..Gram.) 15 gm PO Q15M PRN; Protocol PRN Reason: per Hypoglycemia Standing Ord. Heparin Sodium (Porcine) (Heparin Sodium,Porcine 5,000 Unit/Ml Vial) 5,000 unit SUBCUT Q8H [facility] Last Admin: 10/13/22 05:03 Dose: 5,000 unit Dextrose (D10) 250 mls @ 750 mls/hr IV Q15M PRN; Protocol PRN Reason: per Hypoglycemia Standing Ord. Lactated Ringer's (Lr) 1,000 mls @ 80 mls/hr IVCONT .[id number] [facility] Last Admin: 10/13/22 01:30 Dose: 80 mls/hr Insulin Human Lispro (Insulin Lispro 100 Unit/Ml 3 Ml Vial) 0 unit SUBCUT QIDACHS [facility]; Protocol Last Admin: 10/13/22 07:50 Dose: Not Given Levothyroxine Sodium (Levothyroxine Sodium 150 Mcg Tablet) 150 mcg PO DAILY@0630 [facility] Last Admin: 10/13/22 05:03 Dose: 150 mcg Linezolid (Linezolid 600 Mg Tablet) 600 mg PO Q12H [facility] Stop: 10/26/22 21:01 Ondansetron HCl (Ondansetron Odt 4 Mg Tab.Rapdis) 4 mg TRANSLINGU Q6H PRN PRN Reason: nasuea Pharmacy Consult (Consult Rx Vancomycin Dosing) 1 each MISCELLANE DAILY PRN PRN Reason: Consult order Sodium Chloride (0.9 % Sodium Chloride Flush 3 Ml Syringe) 3 ml IVFLUSH QSHIFT [facility] Vitamin D (Cholecalciferol (Vitamin D3) 25 Mcg Tablet) 50 mcg PO DAILY [facility] Home Medications Medication Instructions Recorded Confirmed Last Taken Type insulin aspart U-100 100 unit/mL See Protocol subcut QIDACHS 06/20/22 10/13/22 06/20/22 History (3 mL) subcutaneous pen (Novolog FlexPen U-100 Insulin aspart) metformin 500 mg tablet 1,000 mg PO BIDWM 06/20/22 10/13/22 06/20/22 History amlodipine 10 mg tablet 10 mg PO DAILY 10/12/22 10/13/22 Unknown History cholecalciferol (vitamin D3) 50 50 mcg PO DAILY 10/12/22 10/13/22 Unknown History mcg (2,000 unit) capsule dulaglutide 1.5 mg/0.5 mL 1.5 mg subcut QWEEK 10/12/22 10/13/22 Unknown History subcutaneous pen injector (Trulicity) escitalopram oxalate 10 mg tablet 10 mg PO DAILY 10/12/22 10/13/22 Unknown History ezetimibe 10 mg tablet 10 mg PO DAILY 10/12/22 10/13/22 Unknown History fenofibrate 54 mg tablet 54 mg PO DAILY 10/12/22 10/13/22 Unknown History gabapentin 100 mg capsule 100 mg PO TID 10/12/22 10/13/22 Unknown History insulin degludec 200 unit/mL (3 30 unit subcut DAILY 10/12/22 10/13/22 Unknown History mL) subcutaneous pen (Tresiba FlexTouch U-200 insulin) levothyroxine 150 mcg tablet 150 mcg PO DAILY 10/12/22 10/13/22 Unknown History lisinopril 10 mg tablet 10 mg PO DAILY 10/12/22 10/13/22 Unknown History ondansetron HCl 4 mg tablet 4 mg PO 3XD PRN Nausea 10/12/22 10/13/22 Unknown History simvastatin 40 mg tablet 40 mg PO BEDTIME 10/12/22 10/13/22 Unknown History Physical Exam Vital Signs: Vital Signs: Last Vital Signs Temp 98.2 F 10/13/22 07:34 Pulse 80 10/13/22 07:34 Resp 16 10/13/22 07:34 BP 136/70 10/13/22 07:34 Pulse Ox 97 10/13/22 07:34 O2 Del Method Room Air 10/13/22 07:34 BMI result Body Mass Index 41.4 Const: General: no acute distress and well developed Nutritional Appearance: well nourished Orientation/consciousness: patient oriented x3 Limitations: no limitations Resp: Effort & Inspection: normal respiratory effort, no audible wheezes, no cough and no respiratory distress GI: Inspection: Yes normal to inspection Palpation (GI): Soft to palpation Skin: General skin exam: no rashes or lesions noted Neuro: General: patient oriented x3 Extrem: Other: Dressings changed to right foot. Good granulation tissue noted at the wound base. No surrounding erythema is appreciated. No undrained abscess collection could be identified. There is exposed 1st metatarsal which is unchanged from previous examination. Wounds were redressed with silver alginate, dry sterile dressings and Kerlix. Patient has no pain with dressing change. Results Labs 10/12/22 19:09 10/13/22 06:58 Labs: Abnormal lab results 10/12/22 10/12/22 10/13/22 Range/Units 19:09 19:09 01:11 WBC 15.3 H (4.8-10.8) X10*3/uL RBC 2.66 L (4.60-5.80) X10*6/uL Hgb 7.4 L (14.0-18.0) g/dl Hct 22.5 L (42.0-52.0) % Plt Count 144 L D (160-400) X10*3/uL Immature Gran % (Auto) 0.5 H (0.0-0.4) % Neut % (Auto) 87.6 H (45-73) % Lymph % (Auto) 5.8 L (20-40) % Lymph # (Auto) 0.9 L (1.2-4.9) X10*3/uL Abs Immat Gran (auto) 0.07 H (0.00-0.03) X10*3/uL Absolute Neuts (auto) 13.4 H (2.0-8.3) x10*3/uL Carbon Dioxide 19 L (22-29) mmol/L BUN 42 H (9-16) mg/dL Creatinine 2.81 H (0.5-1.4) mg/dL Calcium 8.0 L (8.4-10.2) mg/dL Total Bilirubin 1.1 H (0.0-1.0) mg/dL Albumin 3.4 L (3.5-5.0) g/dL Random Vancomycin 13.7 L (15-20) mcg/mL 10/13/22 Range/Units 06:58 WBC (4.8-10.8) X10*3/uL RBC (4.60-5.80) X10*6/uL Hgb (14.0-18.0) g/dl Hct (42.0-52.0) % Plt Count (160-400) X10*3/uL Immature Gran % (Auto) (0.0-0.4) % Neut % (Auto) (45-73) % Lymph % (Auto) (20-40) % Lymph # (Auto) (1.2-4.9) X10*3/uL Abs Immat Gran (auto) (0.00-0.03) X10*3/uL Absolute Neuts (auto) (2.0-8.3) x10*3/uL Carbon Dioxide (22-29) mmol/L BUN (9-16) mg/dL Creatinine 2.10 H (0.5-1.4) mg/dL Calcium (8.4-10.2) mg/dL Total Bilirubin (0.0-1.0) mg/dL Albumin (3.5-5.0) g/dL Random Vancomycin (15-20) mcg/mL Short CBC 10/12/22 Range/Units 19:09 WBC 15.3 H (4.8-10.8) X10*3/uL Hgb 7.4 L (14.0-18.0) g/dl Hct 22.5 L (42.0-52.0) % Plt Count 144 L D (160-400) X10*3/uL BMP 10/12/22 10/13/22 19:09 06:58 Sodium 138 Potassium 4.3 Chloride 108 Carbon Dioxide 19 L BUN 42 H Creatinine 2.81 H 2.10 H Calcium 8.0 L Liver Function 10/12/22 Range/Units 19:09 Total Bilirubin 1.1 H (0.0-1.0) mg/dL AST 32 (5-37) U/L ALT 21 (0-40) U/L Alkaline Phosphatase 98 (39-117) U/L Albumin 3.4 L (3.5-5.0) g/dL All other labs normal. Assessment and Plan (1) Status post transmetatarsal amputation of right foot: Status: Acute Plan 52-year-old male patient well known to service with previous gangrene abscess of the right foot s/p right transmetatarsal amputation. Patient admitted for abdominal pain, nausea and vomiting. Laboratories reveal elevated WBC. On examination of the right foot there is good granulation tissue with no evidence of abscess or cellulitis. Clean dressings were applied including silver alginate, fluff gauze and Kerlix. Patient would be a good candidate for split- thickness skin graft which may expedite wound healing. The exposed 1st metatarsal bone may need to be trimmed further to allow grafting. Will discuss timing with hospitalist team. Time Spent With Patient Time: Total time managing care of this patient today ____ minutes. Procedures Date of Service Date of Service: 10/13/22
--- NOTE | 2022-10-13 08:41 | PHA.MEDREC ---
Addendum entered by Hanny Romero RPh 10/13/22 09:53: raymond has reviewed med rec Original Note: Pharmacy Consult ? Medication Reconciliation Pharmacy has completed the medication reconciliation. Patient had list from [facility].
[2022-10-13] MEDS: Ondansetron ODT 4 MG TAB.RAPDIS TRANSLINGU (08:55)
[2022-10-13] MEDS: Cholecalciferol (Vitamin D3) 25 MCG TABLET 50 MCG PO (09:51)
[2022-10-13] MEDS: Escitalopram Oxalate 10 MG TABLET PO (09:51)
[2022-10-13] MEDS: Fenofibrate 54 MG TABLET PO (09:51)
[2022-10-13] MEDS: Gabapentin 100 MG CAPSULE PO ×2 (09:51→13:34)
[2022-10-13] MEDS: Ezetimibe 10 MG TABLET PO (09:51)
[2022-10-13] MEDS: amLODIPine Besylate 10 MG TABLET PO (09:51)
[2022-10-13] MEDS: Linezolid 600 MG TABLET PO (09:51)
[2022-10-13 11:08] LABS: Glucose, Whole Blood 85 mg/dL (60-115)
[2022-10-13] MEDS: ondansetron HCL 4 MG/2 ML VIAL IVPUSH (13:28)
[2022-10-13] MEDS: 0.9 % Sodium Chloride Flush 3 ML SYRINGE IVFLUSH ×2 (15:23→21:03)
--- NOTE | 2022-10-13 16:15 | P.CNID_ITS ---
History of Present Illness Data of Consult Service Date: 10/13/22 Requesting physician: Taj Cervantes Primary Care Provider: Unknown Physician HPI Reason for consult: nausea and vomiting,diabetic foot infection He presents with nausea and vomiting over last day and unable to take po. He has had MRSA bacteremia resistant to tetracycline and right TMA on 09/12. He had seen surgery 10/05 Dr Antony and foot unremarkable. I saw picture of foot now and granulating. He has increased WBC and tachycardia now. He has received four weeks IV Vancomycin MRSA and Linezolid VRE blood 09/13 and was supposed to be six weeks due to OM. He did receive wound vac in beginning as well. He had septic arthritis in August 25 toes and hospitalized in June with foot infection. He finished six weeks Ertapenem earlier done 08/[address] scan shows some evidence of colitis. Review of Systems Review of Systems: Yes all other systems are reviewed and are negative [facility] Past Medical History Medical History (Updated 10/13/22 @ 16:22 by Kristen Fraser MD) Acute kidney injury Autoimmune thyroiditis Bacteremia Bilateral hand pain Cataracts, both eyes CHF (congestive heart failure) Cognitive developmental delay Diabetes Diabetic ketoacidosis Edema Essential hypertension HTN (hypertension) Hyperkalemia Hyperlipidemia Hyperlipidemia LDL goal <100 Hyponatremia Hypothyroid Hypovitaminosis D Infection of penis Left foot pain Nausea and vomiting Obesity due to excess calories Proteinuria Right foot pain Right knee pain Type 2 diabetes mellitus with hyperglycemia, with long-term current use of insulin Type 2 diabetes mellitus with other diabetic kidney complication Family History Family History Father HTN (hypertension) Mother Diabetes mellitus Maternal Grandmother Diabetes mellitus Family history: reviewed and not pertinent Surgical History Surgical History 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) Hx of cataract surgery Hx of removal of cyst Social History Social History Household Members: Unknown / Unable to assess Household Members Other:: SNF Housing: Unknown / Unable to assess Housing Other:: [facility], [place] Unable to assess alcohol history related to: Unknown Alcohol intake: never Patient Tobacco Use Status: Never used Tobacco e-Cigarette/Vaping Use: Never Used Second Hand Smoke Exposure: No Use of substances other than those prescribed or required for medical reasons: Unknown Substance Use Type: Caffiene Currently Displaying Signs/Symptoms of Drug Intoxication Withdrawal: No Advance Directives: Yes Advance Directives on File: Yes Advance Directives Date on File: 09/10/22 Do you have thoughts of harming others: None Do you have a plan to hurt others: No Plan Recently lost weight without trying: Unsure Eating poorly because of decreased appetite: No Nutrition Risks: No Nutritional Risk Poor oral hygiene: No service: No Current occupational status: disabled Cognitive needs: Yes Hearing needs: No Vision needs: No Meds Allergies Allergy/AdvReac Type Severity Reaction Status Date / Time atorvastatin [ATORVASTATIN] Allergy Unknown skin Verified 10/05/22 09:31 eruption Active Medications: Current Medications Amlodipine Besylate (Amlodipine Besylate 10 Mg Tablet) 10 mg PO DAILY [facility]; Protocol Last Admin: 10/13/22 09:51 Dose: 10 mg Diphenhydramine HCl (Diphenhydramine Hcl 50 Mg/Ml Vial) 25 mg IVPUSH Q6H PRN PRN Reason: nausea Ezetimibe (Ezetimibe 10 Mg Tablet) 10 mg PO DAILY [facility] Last Admin: 10/13/22 09:51 Dose: 10 mg Escitalopram Oxalate (Escitalopram Oxalate 10 Mg Tablet) 10 mg PO DAILY [facility] Last Admin: 10/13/22 09:51 Dose: 10 mg Fenofibrate (Fenofibrate 54 Mg Tablet) 54 mg PO DAILY [facility] Last Admin: 10/13/22 09:51 Dose: 54 mg Gabapentin (Gabapentin 100 Mg Capsule) 100 mg PO TID [facility] Last Admin: 10/13/22 13:34 Dose: 100 mg Glucose (Glucose Gel 15 Gm Gel..Gram.) 15 gm PO Q15M PRN; Protocol PRN Reason: per Hypoglycemia Standing Ord. Heparin Sodium (Porcine) (Heparin Sodium,Porcine 5,000 Unit/Ml Vial) 5,000 unit SUBCUT Q8H [facility] Last Admin: 10/13/22 13:32 Dose: 5,000 unit Dextrose (D10) 250 mls @ 750 mls/hr IV Q15M PRN; Protocol PRN Reason: per Hypoglycemia Standing Ord. Lactated Ringer's (Lr) 1,000 mls @ 80 mls/hr IVCONT .[id number] [facility] Last Admin: 10/13/22 12:06 Dose: 80 mls/hr Vancomycin HCl 1,000 mg/ (Sodium Chloride) 270 mls @ 270 mls/hr IV Q24H [facility] Insulin Human Lispro (Insulin Lispro 100 Unit/Ml 3 Ml Vial) 0 unit SUBCUT QIDACHS [facility]; Protocol Last Admin: 10/13/22 11:05 Dose: Not Given Levothyroxine Sodium (Levothyroxine Sodium 150 Mcg Tablet) 150 mcg PO DAILY@0630 [facility] Last Admin: 10/13/22 05:03 Dose: 150 mcg Linezolid (Linezolid 600 Mg Tablet) 600 mg PO Q12H [facility] Stop: 10/26/22 21:01 Last Admin: 10/13/22 09:51 Dose: 600 mg Morphine Sulfate (Morphine Sulfate 2 Mg/Ml Cartridge) 2 mg IVPUSH Q6H PRN; Protocol PRN Reason: Pain, Severe (Pain Scale 7-10) Ondansetron HCl (Ondansetron Odt 4 Mg Tab.Rapdis) 4 mg TRANSLINGU Q6H PRN PRN Reason: nasuea Last Admin: 10/13/22 08:55 Dose: 4 mg Ondansetron HCl (Ondansetron Hcl 4 Mg/2 Ml Vial) 4 mg IVPUSH Q8H PRN PRN Reason: Nausea and Vomiting Last Admin: 10/13/22 13:28 Dose: 4 mg Pharmacy Consult (Consult Rx Vancomycin Dosing) 1 each MISCELLANE DAILY PRN PRN Reason: Consult order Sodium Chloride (0.9 % Sodium Chloride Flush 3 Ml Syringe) 3 ml IVFLUSH QSHIFT [facility] Last Admin: 10/13/22 15:23 Dose: 3 ml Vitamin D (Cholecalciferol (Vitamin D3) 25 Mcg Tablet) 50 mcg PO DAILY [facility] Last Admin: 10/13/22 09:51 Dose: 50 mcg Home Medications Medication Instructions Recorded Confirmed Last Taken Type insulin aspart U-100 100 unit/mL See Protocol subcut QIDACHS 06/20/22 10/13/22 06/20/22 History (3 mL) subcutaneous pen (Novolog FlexPen U-100 Insulin aspart) metformin 500 mg tablet 1,000 mg PO BIDWM 06/20/22 10/13/22 06/20/22 History amlodipine 10 mg tablet 10 mg PO DAILY 10/12/22 10/13/22 Unknown History cholecalciferol (vitamin D3) 50 50 mcg PO DAILY 10/12/22 10/13/22 Unknown History mcg (2,000 unit) capsule dulaglutide 1.5 mg/0.5 mL 1.5 mg subcut FR 10/12/22 10/13/22 Unknown History subcutaneous pen injector (Trulicity) escitalopram oxalate 10 mg tablet 10 mg PO DAILY 10/12/22 10/13/22 Unknown History ezetimibe 10 mg tablet 10 mg PO DAILY 10/12/22 10/13/22 Unknown History fenofibrate 54 mg tablet 54 mg PO DAILY 10/12/22 10/13/22 Unknown History gabapentin 100 mg capsule 100 mg PO TID 10/12/22 10/13/22 Unknown History insulin degludec 200 unit/mL (3 30 unit subcut DAILY 10/12/22 10/13/22 Unknown History mL) subcutaneous pen (Tresiba FlexTouch U-200 insulin) levothyroxine 150 mcg tablet 150 mcg PO DAILY 10/12/22 10/13/22 Unknown History lisinopril 10 mg tablet 10 mg PO DAILY 10/12/22 10/13/22 Unknown History ondansetron HCl 4 mg tablet 4 mg PO 3XD PRN Nausea 10/12/22 10/13/22 Unknown History simvastatin 40 mg tablet 40 mg PO BEDTIME 10/12/22 10/13/22 Unknown History Saccharomyces boulardii 250 mg 250 mg PO BID 10/13/22 10/13/22 Unknown History capsule (Probiotic (S.boulardii)) acetaminophen 325 mg tablet 650 mg PO Q4H PRN Fever Or Pain 10/13/22 10/13/22 Unknown History bisacodyl 10 mg rectal suppository 10 mg IN DAILY PRN Constipation 10/13/22 10/13/22 Unknown History magnesium hydroxide 400 mg/5 mL 30 ml PO DAILY PRN Constipation 10/13/22 10/13/22 Unknown History oral suspension (Milk of Magnesia) sodium phosphates 19 gram-7 118 ml IN DAILY PRN Constipation 10/13/22 10/13/22 Unknown History gram/118 mL enema (Fleet Enema) vancomycin 1 gram/200 mL in 0.9 % 1 g IV Q24H 10/13/22 10/13/22 Unknown History sod. chloride intravenous piggyback Physical Exam Vital Signs: Vital Signs: Last Vital Signs Temp 97.3 F 10/13/22 15:22 Pulse 90 10/13/22 15:22 Resp 18 10/13/22 15:22 BP 116/66 10/13/22 15:22 Pulse Ox 98 10/13/22 15:22 O2 Del Method Room Air 10/13/22 15:22 BMI result Body Mass Index 41.4 Const: General: cooperative HEENT: Head: Yes normal to inspection Face and sinus: Yes normal facial exam Mouth: Normal oral and palatal mucosa present Teeth and gingiva: dentition normal Eyes: General: appearance normal, both eyes and all related structures Pupils: Equal, round and reactive pupils present Resp: Effort & Inspection: normal respiratory effort Cardio: Rate: regular rate Rhythm: regular rhythm GI: Palpation (GI): Soft to palpation and nontender : General: Yes no CVA tenderness Back/Spine/Pelvis: Back: no CVA tenderness Skin: General skin exam: no rashes or lesions noted Neuro: General: moves all extremities Cranial nerves: Yes Equal, round and reactive pupils present Extrem: Other: foot wrapped,no colitis Psych: Appearance: grossly normal Results Labs 10/12/22 19:09 10/13/22 06:58 Labs: Short CBC 10/12/22 Range/Units 19:09 WBC 15.3 H (4.8-10.8) X10*3/uL Hgb 7.4 L (14.0-18.0) g/dl Hct 22.5 L (42.0-52.0) % Plt Count 144 L D (160-400) X10*3/uL BMP 10/12/22 10/13/22 19:09 06:58 Sodium 138 Potassium 4.3 Chloride 108 Carbon Dioxide 19 L BUN 42 H Creatinine 2.81 H 2.10 H Calcium 8.0 L Liver Function 10/12/22 Range/Units 19:09 Total Bilirubin 1.1 H (0.0-1.0) mg/dL AST 32 (5-37) U/L ALT 21 (0-40) U/L Alkaline Phosphatase 98 (39-117) U/L Albumin 3.4 L (3.5-5.0) g/dL Assessment and Plan (1) Diabetic foot ulcer: Status: Acute (2) Nausea and vomiting: Status: Acute He has probable healing wound with granulation tissue Leukocytosis may be due to abdominal concerns with antibiotic induced colitis. Plan Stop antibiotics as antibiotic associated colitis can be source of SIRS. Restart if bacteremia (will have postantibiotic effect since given today anyway). Make sure all lines new if bacteremia and removed if doesnt have bacteremia as fungus can be cause of sepsis also Surgery followup. Time Spent With Patient Time: Total time managing care of this patient today ____ minutes.
[2022-10-13 16:21] LABS: Glucose, Whole Blood 85 mg/dL (60-115)
[2022-10-13] MEDS: Piperacillin Sodium/Tazobactam 3.375 GM in 0.9 % Sodium Chloride 50 ML IV ×2 (18:01→23:49)
[2022-10-13 20:20] LABS: Glucose, Whole Blood 155 mg/dL (60-115)
[2022-10-13] MEDS: Insulin Lispro 100 UNIT/ML 3 ML VIAL SUBCUT (21:03)
[2022-10-14] MEDS: Lactated Ringers 1,000 ML 80 ML IVCONT ×3 (01:11→23:35)
[2022-10-14 03:12] VITALS: BP 139/71; PULSE 90; RESP 16; TEMP 37.2; O2SAT 95
[2022-10-14] MEDS: Piperacillin Sodium/Tazobactam 3.375 GM in 0.9 % Sodium Chloride 50 ML IV ×4 (05:23→23:36)
[2022-10-14 06:24] LABS: Hematocrit 22.4 % (42.0-52.0); Hemoglobin 7.3 g/dl (14.0-18.0); Mean Corpuscular HGB Conc 32.6 g/dl (31.0-36.0); Mean Corpuscular Hemoglobin 27.9 pg (27.0-33.0); Mean Corpuscular Volume 85.5 fL (80.0-98.0); Mean Platelet Volume 10.5 fL (9.4-12.4); Platelet Count 152 X10*3/uL (160-400); Red Blood Count 2.62 X10*6/uL (4.60-5.80); Red Cell Distribution Width 15.6 % (11.0-16.0); White Blood Count 14.4 X10*3/uL (4.8-10.8)
[2022-10-14 06:53] LABS: Anion Gap 16 (12-20); Blood Urea Nitrogen 22 mg/dL (9-16); Carbon Dioxide 20 mmol/L (22-29); Chloride 107 mmol/L (96-108); Creatinine Clr Calc Pharmacy 73.4; Estimated Glomerular Filt Rate 55; Glucose Fasting 128 mg/dL (60-99); Sodium 139 mmol/L (135-145)
[2022-10-14 07:31] LABS: Glucose, Whole Blood 151 mg/dL (60-115)
[2022-10-14 07:42] VITALS: BP 140/69; PULSE 100; TEMP 37.1; O2SAT 97
[2022-10-14] MEDS: Escitalopram Oxalate 10 MG TABLET PO (07:55)
[2022-10-14] MEDS: Gabapentin 100 MG CAPSULE PO ×3 (07:56→20:06)
[2022-10-14] MEDS: Cholecalciferol (Vitamin D3) 25 MCG TABLET 50 MCG PO (07:56)
[2022-10-14] MEDS: Ezetimibe 10 MG TABLET PO (07:56)
[2022-10-14] MEDS: 0.9 % Sodium Chloride Flush 3 ML SYRINGE IVFLUSH (07:56)
[2022-10-14] MEDS: Fenofibrate 54 MG TABLET PO (07:56)
[2022-10-14] MEDS: amLODIPine Besylate 10 MG TABLET PO (07:56)
--- NOTE | 2022-10-14 09:07 | P.PNGS_ITS ---
Subjective Subjective Date of Service: 10/14/22 Interval history: patient reporting abdominal pain right upper quadrant with hiccups, nausea and vomiting. Denies foot pain. Physical Exam Vital Signs: Vital Signs: Last Vital Signs Temp 98.7 F 10/14/22 07:42 Pulse 100 10/14/22 07:42 Resp 16 10/14/22 03:12 BP 140/69 H 10/14/22 07:42 Pulse Ox 97 10/14/22 07:42 O2 Del Method Room Air 10/14/22 07:42 BMI result Body Mass Index 41.4 Const: General: no acute distress and well developed Nutritional Appearance: well nourished Orientation/consciousness: patient oriented x3 Limitations: no limitations Resp: Effort & Inspection: normal respiratory effort, no audible wheezes, no cough and no respiratory distress GI: Other: Soft but tender in the right upper quadrant with positive Burgos sign. No tympany to percussion. No rebound, guarding or rigidity. Skin: Other: Normal color without jaundice General skin exam: no rashes or lesions noted Neuro: General: patient oriented x3 Extrem: Other: Dressings changed to right foot. Good granulation tissue noted at the wound base. No surrounding erythema is appreciated. No undrained abscess collection could be identified. There is exposed 1st metatarsal which is unchanged from previous examination. Wounds were redressed with silver alginate, dry sterile dressings and Kerlix. Patient has no pain with dressing change. Objective Data Active Medications Amlodipine Besylate (Amlodipine Besylate 10 Mg Tablet) 10 mg PO DAILY [facility]; Protocol Last Admin: 10/14/22 07:56 Dose: 10 mg Documented By: GINO Diphenhydramine HCl (Diphenhydramine Hcl 50 Mg/Ml Vial) 25 mg IVPUSH Q6H PRN PRN Reason: nausea Ezetimibe (Ezetimibe 10 Mg Tablet) 10 mg PO DAILY [facility] Last Admin: 10/14/22 07:56 Dose: 10 mg Documented By: GINO Escitalopram Oxalate (Escitalopram Oxalate 10 Mg Tablet) 10 mg PO DAILY [facility] Last Admin: 10/14/22 07:55 Dose: 10 mg Documented By: GINO Fenofibrate (Fenofibrate 54 Mg Tablet) 54 mg PO DAILY [facility] Last Admin: 10/14/22 07:56 Dose: 54 mg Documented By: GINO Gabapentin (Gabapentin 100 Mg Capsule) 100 mg PO TID [facility] Last Admin: 10/14/22 07:56 Dose: 100 mg Documented By: GINO Glucose (Glucose Gel 15 Gm Gel..Gram.) 15 gm PO Q15M PRN; Protocol PRN Reason: per Hypoglycemia Standing Ord. Heparin Sodium (Porcine) (Heparin Sodium,Porcine 5,000 Unit/Ml Vial) 5,000 unit SUBCUT Q8H [facility] Last Admin: 10/14/22 05:26 Dose: Not Given Documented By: ALEK Non-Admin Reason: Patient Refused Dextrose (D10) 250 mls @ 750 mls/hr IV Q15M PRN; Protocol PRN Reason: per Hypoglycemia Standing Ord. Lactated Ringer's (Lr) 1,000 mls @ 80 mls/hr IVCONT .[id number] [facility] Last Admin: 10/14/22 01:11 Dose: 80 mls/hr Documented By: ALEK Piperacillin Sod/Tazobactam (Sod 3.375 gm/ Sodium Chloride) 50 mls @ 100 mls/hr IV Q6H [facility] Last Infusion: 10/14/22 05:57 Dose: 0 mls/hr Documented By: ALEK Insulin Human Lispro (Insulin Lispro 100 Unit/Ml 3 Ml Vial) 0 unit SUBCUT QIDACHS [facility]; Protocol Last Admin: 10/14/22 07:51 Dose: Not Given Documented By: GINO Non-Admin Reason: NPO Levothyroxine Sodium (Levothyroxine Sodium 150 Mcg Tablet) 150 mcg PO DAILY@0630 [facility] Last Admin: 10/14/22 05:27 Dose: Not Given Documented By: ALEK Non-Admin Reason: NPO Morphine Sulfate (Morphine Sulfate 2 Mg/Ml Cartridge) 2 mg IVPUSH Q6H PRN; Protocol PRN Reason: Pain, Severe (Pain Scale 7-10) Ondansetron HCl (Ondansetron Odt 4 Mg Tab.Rapdis) 4 mg TRANSLINGU Q6H PRN PRN Reason: nasuea Last Admin: 10/13/22 08:55 Dose: 4 mg Documented By: JOSETTE Ondansetron HCl (Ondansetron Hcl 4 Mg/2 Ml Vial) 4 mg IVPUSH Q8H PRN PRN Reason: Nausea and Vomiting Last Admin: 10/13/22 13:28 Dose: 4 mg Documented By: JOSETTE Sodium Chloride (0.9 % Sodium Chloride Flush 3 Ml Syringe) 3 ml IVFLUSH QSHIFT [facility] Last Admin: 10/14/22 07:56 Dose: 3 ml Documented By: GINO Vitamin D (Cholecalciferol (Vitamin D3) 25 Mcg Tablet) 50 mcg PO DAILY [facility] Last Admin: 10/14/22 07:56 Dose: 50 mcg Documented By: GINO Labs 10/14/22 05:06 10/14/22 05:06 Labs: Laboratory Results - last 24 hr 10/13/22 10/13/22 10/13/22 11:01 16:16 20:09 MCV MCH MCHC RDW Plt Count MPV Absolute Nucleated RBC Nucleated RBC % (auto) Anion Gap Estim Creat Clear Calc Estimated GFR POC Glucose 85 85 155 H Fasting Glucose Calcium 10/14/22 10/14/22 10/14/22 05:06 05:06 07:25 MCV 85.5 MCH 27.9 MCHC 32.6 RDW 15.6 Plt Count 152 L MPV 10.5 Absolute Nucleated RBC 0.000 Nucleated RBC % (auto) 0.0 Anion Gap 16 Estim Creat Clear Calc 73.4 Estimated GFR 55 POC Glucose 151 H Fasting Glucose 128 H Calcium 8.0 L Microbiology Microbiology Results: Microbiology 10/12/22 19:13 Blood Culture - Preliminary Blood - Venous No growth after 24 hours. 10/12/22 19:13 Blood Culture - Preliminary Blood - Venous No growth after 24 hours. Procedures Date of Service Date of Service: 10/14/22 Progress Note: A&P Assessment and plan (1) Acute cholecystitis: Status: Acute Assessment and Plan: patient underwent evaluation with CT abdomen, ultrasound and is awaiting HIDA scan possibly tomorrow. CT findings reveal evidence of inflammation around the gallbladder as well as duodenum and colon. Findings are suggestive of either acute cholecystitis or colitis. Ultrasound the abdomen however does reveal a p ositive sonographic Burgos sign. There is evidence of wall thickening and pericholecystic fluid with biliary sludge within the gallbladder. No gallstones are appreciated. Findings were suggestive of acalculous cholecystitis. Will await HIDA scan findings. If nonvisualization of the gallbladder, would recommend cholecystectomy. (2) Status post transmetatarsal amputation of right foot: Status: Acute Assessment and Plan: Patient is wound is open and granulating with no evidence of skin necrosis or undrained abscess. He will eventuallyneed a skin graft to the wound but would not recommend performing this at the same time as the cholecystectomy, if performed. Will continue local wound care at this time. Time Spent With Patient Time: Total time managing care of this patient today ____ minutes. Quality Stroke Does the patient have a stroke diagnosis?: No VTE Prior VTE?: No VTE Risk Level:: Medical - moderate - high VTE Device Contraindication: Treatment Not Indicated VTE Drug Contraindication: N/A - Med Ordered
[2022-10-14 11:23] LABS: Glucose, Whole Blood 144 mg/dL (60-115)
--- NOTE | 2022-10-14 12:04 | P.PNIM_ITS ---
Subjective Subjective Date of Service: 10/14/22 Interval History: seen and evaluated reporting abd discomfort ,nausea Denies any fever or chills No other overnight events Review of Systems Review of Systems: Yes all other systems are reviewed and are negative Physical Exam Vital Signs: Vital Signs: Last Vital Signs Temp 98.7 F 10/14/22 07:42 Pulse 100 10/14/22 07:42 Resp 16 10/14/22 03:12 BP 140/69 H 10/14/22 07:42 Pulse Ox 97 10/14/22 07:42 O2 Del Method Room Air 10/14/22 07:42 BMI result Body Mass Index 41.4 Const: Other: Constitutional : Awake, interactive, not in distress Neck : Normal inspection, Supple Cardiovascular : RRR, no JVP, no lower extremity edema Respiratory : good bilateral air entry, no crackles, wheezes or rhonchi Gastrointestinal: soft, lax, Normal bowel sounds, RUQ mild tenderness, no dsouza sign Skin : Warm, Dry, Rt transmetatarsal wound with granulation tissue, no signs of infection Neurological : Alert & oriented x3, No focal deficit Objective Data Active Medications Amlodipine Besylate (Amlodipine Besylate 10 Mg Tablet) 10 mg PO DAILY [facility]; Protocol Last Admin: 10/14/22 07:56 Dose: 10 mg Documented By: GINO Diphenhydramine HCl (Diphenhydramine Hcl 50 Mg/Ml Vial) 25 mg IVPUSH Q6H PRN PRN Reason: nausea Ezetimibe (Ezetimibe 10 Mg Tablet) 10 mg PO DAILY [facility] Last Admin: 10/14/22 07:56 Dose: 10 mg Documented By: GINO Escitalopram Oxalate (Escitalopram Oxalate 10 Mg Tablet) 10 mg PO DAILY [facility] Last Admin: 10/14/22 07:55 Dose: 10 mg Documented By: GINO Fenofibrate (Fenofibrate 54 Mg Tablet) 54 mg PO DAILY [facility] Last Admin: 10/14/22 07:56 Dose: 54 mg Documented By: GINO Gabapentin (Gabapentin 100 Mg Capsule) 100 mg PO TID [facility] Last Admin: 10/14/22 07:56 Dose: 100 mg Documented By: GINO Glucose (Glucose Gel 15 Gm Gel..Gram.) 15 gm PO Q15M PRN; Protocol PRN Reason: per Hypoglycemia Standing Ord. Heparin Sodium (Porcine) (Heparin Sodium,Porcine 5,000 Unit/Ml Vial) 5,000 unit SUBCUT Q8H [facility] Last Admin: 10/14/22 05:26 Dose: Not Given Documented By: ALEK Non-Admin Reason: Patient Refused Dextrose (D10) 250 mls @ 750 mls/hr IV Q15M PRN; Protocol PRN Reason: per Hypoglycemia Standing Ord. Lactated Ringer's (Lr) 1,000 mls @ 80 mls/hr IVCONT .[id number] [facility] Last Admin: 10/14/22 11:55 Dose: 80 mls/hr Documented By: GINO Piperacillin Sod/Tazobactam (Sod 3.375 gm/ Sodium Chloride) 50 mls @ 100 mls/hr IV Q6H [facility] Last Admin: 10/14/22 11:56 Dose: 100 mls/hr Documented By: GINO Insulin Human Lispro (Insulin Lispro 100 Unit/Ml 3 Ml Vial) 0 unit SUBCUT QIDACHS [facility]; Protocol Last Admin: 10/14/22 11:31 Dose: Not Given Documented By: GINO Non-Admin Reason: No Insulin Coverage Levothyroxine Sodium (Levothyroxine Sodium 150 Mcg Tablet) 150 mcg PO DAILY@0630 [facility] Last Admin: 10/14/22 05:27 Dose: Not Given Documented By: ALEK Non-Admin Reason: NPO Morphine Sulfate (Morphine Sulfate 2 Mg/Ml Cartridge) 2 mg IVPUSH Q6H PRN; Protocol PRN Reason: Pain, Severe (Pain Scale 7-10) Ondansetron HCl (Ondansetron Odt 4 Mg Tab.Rapdis) 4 mg TRAN[facility]U Q6H PRN PRN Reason: nasuea Last Admin: 10/13/22 08:55 Dose: 4 mg Documented By: JOSETTE Ondansetron HCl (Ondansetron Hcl 4 Mg/2 Ml Vial) 4 mg IVPUSH Q8H PRN PRN Reason: Nausea and Vomiting Last Admin: 10/13/22 13:28 Dose: 4 mg Documented By: JOSETTE Sodium Chloride (0.9 % Sodium Chloride Flush 3 Ml Syringe) 3 ml IVFLUSH QSHIFT [facility] Last Admin: 10/14/22 07:56 Dose: 3 ml Documented By: GINO Vitamin D (Cholecalciferol (Vitamin D3) 25 Mcg Tablet) 50 mcg PO DAILY [facility] Last Admin: 10/14/22 07:56 Dose: 50 mcg Documented By: GINO Labs 10/14/22 05:06 10/14/22 05:06 Labs: Laboratory Results - last 24 hr 10/13/22 10/13/22 10/14/22 16:16 20:09 05:06 MCV MCH MCHC RDW Plt Count MPV Absolute Nucleated RBC Nucleated RBC % (auto) Anion Gap 16 Estim Creat Clear Calc 73.4 Estimated GFR 55 POC Glucose 85 155 H Fasting Glucose 128 H Calcium 8.0 L 10/14/22 10/14/22 10/14/22 05:06 07:25 11:14 MCV 85.5 MCH 27.9 MCHC 32.6 RDW 15.6 Plt Count 152 L MPV 10.5 Absolute Nucleated RBC 0.000 Nucleated RBC % (auto) 0.0 Anion Gap Estim Creat Clear Calc Estimated GFR POC Glucose 151 H 144 H Fasting Glucose Calcium Microbiology Microbiology Results: Microbiology 10/12/22 19:13 Blood Culture - Preliminary Blood - Venous No growth after 24 hours. 10/12/22 19:13 Blood Culture - Preliminary Blood - Venous No growth after 24 hours. Assessment and Plan (1) Nausea and vomiting: Status: Acute (2) Status post transmetatarsal amputation of right foot: Status: Acute Plan 52M PMH DM, hypothyroid, hld, htn, morbid obesity, presented with nausea and vomiting. patient is a vague historian, reports multiple days of inability to tolerate po, nausea, vomiting, abdominal discomfort. severe sepsis 2/2 intaaabdominal infection Colitis vs Cholecystitis pending cultures CT scan , US showing changes suggestive of CCY Surgery input appreciated, to do HIDA scan for conformation ID concerned if GI symptoms 2/2 Abx , suggested holding them continue Zosyn HIDA scan tomorrow NPO for now RLE wound surgery input appreciated, no evidence of infection He will eventually need a skin graft to the wound? wound care JJ dehydration vs vanco tox improving ivf, monitor bmp acute on chronic anemia Hb dropped to 7.3 from baseline above 8 check occult and iron profile DM insulin pocs hypothryoid synthroid htn amlodipine hold lisinopril for jj hld hold zocor (non formulary), has lipitor allergy morbid obesity weight loss recommended dvt prophylaxis - hep sq full code patient with severe sepsis and jj, requiring iv abx, ivf, close monitorin, at risk for further decompensation, will require overnight inpatient. Time Spent With Patient Time: Total time managing care of this patient today ____ minutes. Quality Stroke Does the patient have a stroke diagnosis?: No VTE Prior VTE?: No VTE Risk Level:: Medical - moderate - high VTE Device Contraindication: Treatment Not Indicated VTE Drug Contraindication: N/A - Med Ordered
[2022-10-14 12:35] LABS: Iron 29 mcg/dL (45-160); Percent Iron Saturation 17 % (15-50); Total Iron Binding Capacity 171 mcg/dL (228-428); Unsaturated Iron Binding 142 ug/dL
[2022-10-14] MEDS: Heparin Sodium,Porcine 5,000 UNIT/ML VIAL 5000 UNIT SUBCUT ×2 (13:51→20:06)
--- NOTE | 2022-10-14 15:35 | MHC.CM.PN ---
PT IS A STR RESIDENT OF [facility], HOWEVER HE IS A BED HOLD AND HAS BEEN THERE FOR SEVERAL MONTHS PT WAS PREVIOUSLY HOMELESS AND STAYING [facility] [place] PT DENIES USE OF DME PT HAS A HCP AND MOLST ON FILE PCP: AMRIT LUNDBERG IMM DELIVERED CURRENT DCP: RETURN TO [facility] VIA BLS
[2022-10-14 15:36] VITALS: BP 116/62; PULSE 76; RESP 18; TEMP 36.2; O2SAT 97
[2022-10-14 16:47] LABS: Glucose, Whole Blood 124 mg/dL (60-115)
[2022-10-14 19:27] VITALS: BP 138/72; PULSE 81; RESP 17; TEMP 36.2; O2SAT 96
[2022-10-14 19:59] LABS: Glucose, Whole Blood 117 mg/dL (60-115)
[2022-10-15 02:44] VITALS: BP 128/67; PULSE 84; RESP 15; TEMP 36.1; O2SAT 94
[2022-10-15 03:28] LABS: Glucose, Whole Blood 123 mg/dL (60-115)
[2022-10-15] MEDS: Levothyroxine Sodium 150 MCG TABLET PO (05:27)
[2022-10-15] MEDS: Heparin Sodium,Porcine 5,000 UNIT/ML VIAL 5000 UNIT SUBCUT ×3 (05:27→21:03)
[2022-10-15] MEDS: Piperacillin Sodium/Tazobactam 3.375 GM in 0.9 % Sodium Chloride 50 ML IV ×3 (05:28→17:25)
[2022-10-15 06:58] VITALS: BP 141/73; PULSE 79; RESP 16; TEMP 36.1; O2SAT 97
[2022-10-15 07:03] LABS: Glucose, Whole Blood 111 mg/dL (60-115)
[2022-10-15 10:51] VITALS: BP 144/75; PULSE 82; RESP 16; TEMP 36.1; O2SAT 93
[2022-10-15] MEDS: Escitalopram Oxalate 10 MG TABLET PO (10:56)
[2022-10-15] MEDS: Ezetimibe 10 MG TABLET PO (10:56)
[2022-10-15] MEDS: Gabapentin 100 MG CAPSULE PO ×2 (10:56→14:47)
[2022-10-15] MEDS: Cholecalciferol (Vitamin D3) 25 MCG TABLET 50 MCG PO (10:56)
[2022-10-15] MEDS: amLODIPine Besylate 10 MG TABLET PO (10:56)
[2022-10-15] MEDS: Fenofibrate 54 MG TABLET PO (10:58)
[2022-10-15 11:23] LABS: Hemoglobin 7.5 g/dl (14.0-18.0); Mean Corpuscular HGB Conc 32.6 g/dl (31.0-36.0); Mean Corpuscular Volume 85.8 fL (80.0-98.0); Mean Platelet Volume 10.4 fL (9.4-12.4); Platelet Count 156 X10*3/uL (160-400); Red Blood Count 2.68 X10*6/uL (4.60-5.80); Red Cell Distribution Width 15.9 % (11.0-16.0); White Blood Count 11.2 X10*3/uL (4.8-10.8)
[2022-10-15 11:30] LABS: Glucose, Whole Blood 105 mg/dL (60-115)
[2022-10-15 11:39] LABS: Creatinine Clr Calc Pharmacy 97.2; Estimated Glomerular Filt Rate > 60
[2022-10-15 11:50] LABS: Anion Gap 16 (12-20); Blood Urea Nitrogen 12 mg/dL (9-16); Carbon Dioxide 19 mmol/L (22-29); Chloride 109 mmol/L (96-108); Creatinine Clr Calc Pharmacy 100.1; Estimated Glomerular Filt Rate > 60; Glucose Random 117 mg/dL (60-115); Potassium 3.9 mmol/L (3.3-5.1); Sodium 140 mmol/L (135-145)
--- NOTE | 2022-10-15 12:46 | HO.PM.IMPN ---
Subjective Subjective Date of Service: 10/15/22 Interval History: seen and evaluated reporting improving abdominal pain and nausea HIDA scan showing evidence of acute cholecystitis Denies any fever or chills No other overnight events Review of Systems Review of Systems: Yes all other systems are reviewed and are negative Physical Exam Vital Signs: Vital Signs: Last Vital Signs Temp 96.9 F 10/15/22 10:51 Pulse 82 10/15/22 10:51 Resp 16 10/15/22 10:51 BP 144/75 H 10/15/22 10:51 Pulse Ox 93 10/15/22 10:51 O2 Del Method Room Air 10/15/22 10:51 BMI result Body Mass Index 41.4 Const: Other: Constitutional : Awake, interactive, not in distress Neck : Normal inspection, Supple Cardiovascular : RRR, no JVP, no lower extremity edema Respiratory : good bilateral air entry, no crackles, wheezes or rhonchi Gastrointestinal: soft, lax, Normal bowel sounds, no RUQ tenderness, no dsouza sign Skin : Warm, Dry, Rt transmetatarsal wound with granulation tissue, no signs of infection Neurological : Alert & oriented x3, No focal deficit Objective Data Active Medications Amlodipine Besylate (Amlodipine Besylate 10 Mg Tablet) 10 mg PO DAILY [facility]; Protocol Last Admin: 10/15/22 10:56 Dose: 10 mg Documented By: DAVID Diphenhydramine HCl (Diphenhydramine Hcl 50 Mg/Ml Vial) 25 mg IVPUSH Q6H PRN PRN Reason: nausea Ezetimibe (Ezetimibe 10 Mg Tablet) 10 mg PO DAILY [facility] Last Admin: 10/15/22 10:56 Dose: 10 mg Documented By: DAVID Escitalopram Oxalate (Escitalopram Oxalate 10 Mg Tablet) 10 mg PO DAILY [facility] Last Admin: 10/15/22 10:56 Dose: 10 mg Documented By: DAVID Fenofibrate (Fenofibrate 54 Mg Tablet) 54 mg PO DAILY [facility] Last Admin: 10/15/22 10:58 Dose: 54 mg Documented By: DAVID Gabapentin (Gabapentin 100 Mg Capsule) 100 mg PO TID [facility] Last Admin: 10/15/22 10:56 Dose: 100 mg Documented By: DAVID Glucose (Glucose Gel 15 Gm Gel..Gram.) 15 gm PO Q15M PRN; Protocol PRN Reason: per Hypoglycemia Standing Ord. Heparin Sodium (Porcine) (Heparin Sodium,Porcine 5,000 Unit/Ml Vial) 5,000 unit SUBCUT Q8H [facility] Last Admin: 10/15/22 05:27 Dose: 5,000 unit Documented By: JORGE Dextrose (D10) 250 mls @ 750 mls/hr IV Q15M PRN; Protocol PRN Reason: per Hypoglycemia Standing Ord. Lactated Ringer's (Lr) 1,000 mls @ 80 mls/hr IVCONT .[id number] [facility] Last Infusion: 10/15/22 11:21 Dose: 0 mls/hr Documented By: DAVID Piperacillin Sod/Tazobactam (Sod 3.375 gm/ Sodium Chloride) 50 mls @ 100 mls/hr IV Q6H [facility] Last Infusion: 10/15/22 12:15 Dose: 0 mls/hr Documented By: DAVID Insulin Human Lispro (Insulin Lispro 100 Unit/Ml 3 Ml Vial) 0 unit SUBCUT QIDACHS [facility]; Protocol Last Admin: 10/15/22 11:38 Dose: Not Given Documented By: DAVID Non-Admin Reason: No Insulin Coverage Levothyroxine Sodium (Levothyroxine Sodium 150 Mcg Tablet) 150 mcg PO DAILY@0630 [facility] Last Admin: 10/15/22 05:27 Dose: 150 mcg Documented By: JORGE Morphine Sulfate (Morphine Sulfate 2 Mg/Ml Cartridge) 2 mg IVPUSH Q6H PRN; Protocol PRN Reason: Pain, Severe (Pain Scale 7-10) Ondansetron HCl (Ondansetron Odt 4 Mg Tab.Rapdis) 4 mg TRANSLINGU Q6H PRN PRN Reason: nasuea Last Admin: 10/13/22 08:55 Dose: 4 mg Documented By: JOSETTE Ondansetron HCl (Ondansetron Hcl 4 Mg/2 Ml Vial) 4 mg IVPUSH Q8H PRN PRN Reason: Nausea and Vomiting Last Admin: 10/13/22 13:28 Dose: 4 mg Documented By: JOSETTE Sodium Chloride (0.9 % Sodium Chloride Flush 3 Ml Syringe) 3 ml IVFLUSH QSHIFT [facility] Last Admin: 10/15/22 07:14 Dose: Not Given Documented By: DAVID Non-Admin Reason: IV Running Vitamin D (Cholecalciferol (Vitamin D3) 25 Mcg Tablet) 50 mcg PO DAILY [facility] Last Admin: 10/15/22 10:56 Dose: 50 mcg Documented By: DAVID Labs 10/15/22 10:59 10/15/22 10:59 Labs: Laboratory Results - last 24 hr 10/14/22 10/14/22 10/15/22 16:43 19:55 03:24 MCV MCH MCHC RDW Plt Count MPV Absolute Nucleated RBC Nucleated RBC % (auto) Anion Gap Estim Creat Clear Calc Estimated GFR POC Glucose 124 H 117 H 123 H Random Glucose Calcium 10/15/22 10/15/22 10/15/22 06:57 10:59 10:59 MCV 85.8 MCH 28.0 MCHC 32.6 RDW 15.9 Plt Count 156 L MPV 10.4 Absolute Nucleated RBC 0.000 Nucleated RBC % (auto) 0.0 Anion Gap Estim Creat Clear Calc 97.2 Estimated GFR > 60 POC Glucose 111 Random Glucose Calcium 10/15/22 10/15/22 10:59 11:26 MCV MCH MCHC RDW Plt Count MPV Absolute Nucleated RBC Nucleated RBC % (auto) Anion Gap 16 Estim Creat Clear Calc 100.1 Estimated GFR > 60 POC Glucose 105 Random Glucose 117 H Calcium 8.0 L Microbiology Microbiology Results: Microbiology 10/12/22 19:13 Blood Culture - Preliminary Blood - Venous No growth after 48 hours. 10/12/22 19:13 Blood Culture - Preliminary Blood - Venous No growth after 48 hours. Assessment and Plan (1) Acute cholecystitis: Status: Acute (2) Nausea and vomiting: Status: Acute (3) Severe sepsis: Status: Acute Plan 52M PMH DM, hypothyroid, hld, htn, morbid obesity, presented with nausea and vomiting. patient is a vague historian, reports multiple days of inability to tolerate po, nausea, vomiting, abdominal discomfort. severe sepsis 2/2 acute Cholecystitis negative cultures CT scan , US showing changes suggestive of CCY Surgery input appreciated, HIDA scan positive for cholecystitis continue Zon surgery team to decide on timing of surgery RLE wound surgery input appreciated, no evidence of infection He will eventually need a skin graft to the wound? wound care JJ resolved monitor bmp acute on chronic anemia Hb stable around 7.5 from baseline above 8 check occult low iron profile, start IV replacement inpatient DM insulin pocs hypothryoid synthroid htn amlodipine hold lisinopril for jj hld hold zocor (non formulary), has lipitor allergy morbid obesity weight loss recommended dvt prophylaxis - hep sq full code patient with sepsis 2/2 intraabdominal infx needs iv abx,close monitorin, at risk for further decompensation, will require overnight inpatient. Time Spent With Patient Time: Total time managing care of this patient today ____ minutes. Quality Stroke Does the patient have a stroke diagnosis?: No VTE Prior VTE?: No VTE Risk Level:: Medical - moderate - high VTE Device Contraindication: Treatment Not Indicated VTE Drug Contraindication: N/A - Med Ordered
[2022-10-15] MEDS: Iron Sucrose Complex 200 MG in 0.9 % Sodium Chloride 100 ML 440 MG IV (14:47)
--- NOTE | 2022-10-15 14:55 | MHC.CM.PN ---
Per MD rounds patient is not ready for discharge today. DP return to [facility] to resume STR via BLS.
[2022-10-15] MEDS: Lactated Ringers 1,000 ML 80 ML IVCONT (15:06)
[2022-10-15 15:29] VITALS: BP 155/59; PULSE 89; RESP 18; TEMP 36.3; O2SAT 97
[2022-10-15 16:02] LABS: Glucose, Whole Blood 255 mg/dL (60-115)
[2022-10-15] MEDS: Insulin Lispro 100 UNIT/ML 3 ML VIAL SUBCUT ×2 (17:25→21:04)
[2022-10-15 20:00] VITALS: BP 134/70; PULSE 84; RESP 20; TEMP 36.8; O2SAT 98
[2022-10-15] MEDS: ondansetron HCL 4 MG/2 ML VIAL IVPUSH (20:28)
[2022-10-15 20:43] LABS: Glucose, Whole Blood 202 mg/dL (60-115)
[2022-10-16] VITALS (12 sets, daily range): BP systolic 117–165; BP diastolic 60–83; PULSE 74–82; RESP 14–20; TEMP 35.9–36.3; O2SAT 94–99
[2022-10-16] MEDS: Lactated Ringers 1,000 ML 80 ML IVCONT ×2 (03:25→20:33)
[2022-10-16] MEDS: Piperacillin Sodium/Tazobactam 3.375 GM in 0.9 % Sodium Chloride 50 ML IV ×4 (05:22→19:40)
[2022-10-16] MEDS: ondansetron HCL 4 MG/2 ML VIAL IVPUSH (06:32)
[2022-10-16 06:56] LABS: Anion Gap 15 (12-20); Blood Urea Nitrogen 6 mg/dL (9-16); Calcium 8.1 mg/dL (8.4-10.2); Carbon Dioxide 22 mmol/L (22-29); Chloride 107 mmol/L (96-108); Creatinine Clr Calc Pharmacy 115.3; Estimated Glomerular Filt Rate > 60; Glucose Random 162 mg/dL (60-115); Potassium 3.5 mmol/L (3.3-5.1); Sodium 140 mmol/L (135-145)
[2022-10-16 06:58] LABS: Alanine Aminotransferase 29 U/L (0-40); Alkaline Phosphatase 127 U/L (39-117); Aspartate Amino Transferase 26 U/L (5-37); Bilirubin Direct 0.4 mg/dL (0.0-0.5); Bilirubin Total 0.7 mg/dL (0.0-1.0); Creatinine Clr Calc Pharmacy 111.4; Estimated Glomerular Filt Rate > 60; Total Protein 6.1 g/dL (6.5-8.0)
[2022-10-16 07:26] LABS: Glucose, Whole Blood 164 mg/dL (60-115)
[2022-10-16] MEDS: Gabapentin 100 MG CAPSULE PO ×3 (08:02→22:30)
[2022-10-16] MEDS: Cholecalciferol (Vitamin D3) 25 MCG TABLET 50 MCG PO (08:02)
[2022-10-16] MEDS: Ezetimibe 10 MG TABLET PO (08:02)
[2022-10-16] MEDS: amLODIPine Besylate 10 MG TABLET PO (08:02)
[2022-10-16] MEDS: Fenofibrate 54 MG TABLET PO (08:02)
[2022-10-16] MEDS: Escitalopram Oxalate 10 MG TABLET PO (08:02)
--- NOTE | 2022-10-16 08:08 | PM.PNGS ---
Subjective Subjective Date of Service: 10/16/22 Interval history: Patient with nausea, vomiting during the night and hiccups this morning. Has some abdominal pain right upper quadrant. Physical Exam Vital Signs: Vital Signs: Last Vital Signs Temp 97.0 F 10/16/22 07:01 Pulse 80 10/16/22 07:01 Resp 16 10/16/22 07:01 BP 134/82 10/16/22 07:01 Pulse Ox 97 10/16/22 07:01 O2 Del Method Room Air 10/16/22 07:01 BMI result Body Mass Index 41.4 Const: General: no acute distress Nutritional Appearance: well nourished Orientation/consciousness: patient oriented x3 Resp: Effort & Inspection: normal respiratory effort GI: Other: Soft, tender right upper quadrant, positive Burgos sign, no rebound or guarding. Neuro: General: patient oriented x3 Extrem: Other: Dressings intact right foot. Objective Data Active Medications Amlodipine Besylate (Amlodipine Besylate 10 Mg Tablet) 10 mg PO DAILY [facility]; Protocol Last Admin: 10/16/22 08:02 Dose: 10 mg Documented By: DAVID Diphenhydramine HCl (Diphenhydramine Hcl 50 Mg/Ml Vial) 25 mg IVPUSH Q6H PRN PRN Reason: nausea Ezetimibe (Ezetimibe 10 Mg Tablet) 10 mg PO DAILY [facility] Last Admin: 10/16/22 08:02 Dose: 10 mg Documented By: DAVID Escitalopram Oxalate (Escitalopram Oxalate 10 Mg Tablet) 10 mg PO DAILY [facility] Last Admin: 10/16/22 08:02 Dose: 10 mg Documented By: DAVID Fenofibrate (Fenofibrate 54 Mg Tablet) 54 mg PO DAILY [facility] Last Admin: 10/16/22 08:02 Dose: 54 mg Documented By: DAVID Gabapentin (Gabapentin 100 Mg Capsule) 100 mg PO TID [facility] Last Admin: 10/16/22 08:02 Dose: 100 mg Documented By: DAVID Glucose (Glucose Gel 15 Gm Gel..Gram.) 15 gm PO Q15M PRN; Protocol PRN Reason: per Hypoglycemia Standing Ord. Heparin Sodium (Porcine) (Heparin Sodium,Porcine 5,000 Unit/Ml Vial) 5,000 unit SUBCUT Q8H [facility] Last Admin: 10/15/22 21:03 Dose: 5,000 unit Documented By: LILIA Dextrose (D10) 250 mls @ 750 mls/hr IV Q15M PRN; Protocol PRN Reason: per Hypoglycemia Standing Ord. Lactated Ringer's (Lr) 1,000 mls @ 80 mls/hr IVCONT .[id number] [facility] Last Admin: 10/16/22 03:25 Dose: 80 mls/hr Documented By: LILIA Piperacillin Sod/Tazobactam (Sod 3.375 gm/ Sodium Chloride) 50 mls @ 100 mls/hr IV Q6H [facility] Last Infusion: 10/16/22 06:10 Dose: 0 mls/hr Documented By: LILIA Iron Sucrose 200 mg/ Sodium (Chloride) 110 mls @ 440 mls/hr IV DAILY [facility] Stop: 10/17/22 09:14 Last Infusion: 10/15/22 15:11 Dose: 0 mls/hr Documented By: DAVID Cefotetan Disodium 2 gm/ (Sodium Chloride) 50 mls @ 100 mls/hr IV PREOP ONE Stop: 10/16/22 08:36 Insulin Human Lispro (Insulin Lispro 100 Unit/Ml 3 Ml Vial) 0 unit SUBCUT QIDACHS [facility]; Protocol Last Admin: 10/16/22 07:55 Dose: Not Given Documented By: DAVID Non-Admin Reason: NPO Levothyroxine Sodium (Levothyroxine Sodium 150 Mcg Tablet) 150 mcg PO DAILY@0630 [facility] Last Admin: 10/16/22 05:22 Dose: Not Given Documented By: LILIA Non-Admin Reason: NPO Morphine Sulfate (Morphine Sulfate 2 Mg/Ml Cartridge) 2 mg IVPUSH Q6H PRN; Protocol PRN Reason: Pain, Severe (Pain Scale 7-10) Ondansetron HCl (Ondansetron Odt 4 Mg Tab.Rapdis) 4 mg TRANSLINGU Q6H PRN PRN Reason: nasuea Last Admin: 10/13/22 08:55 Dose: 4 mg Documented By: JOSETTE Ondansetron HCl (Ondansetron Hcl 4 Mg/2 Ml Vial) 4 mg IVPUSH Q8H PRN PRN Reason: Nausea and Vomiting Last Admin: 10/16/22 06:32 Dose: 4 mg Documented By: HO.NATALSA Sodium Chloride (0.9 % Sodium Chloride Flush 3 Ml Syringe) 3 ml IVFLUSH QSHIFT [facility] Last Admin: 10/16/22 07:12 Dose: Not Given Documented By: DAVID Non-Admin Reason: IV Running Vitamin D (Cholecalciferol (Vitamin D3) 25 Mcg Tablet) 50 mcg PO DAILY [facility] Last Admin: 10/16/22 08:02 Dose: 50 mcg Documented By: DAVID Labs 10/15/22 10:59 10/16/22 06:16 Labs: Laboratory Results - last 24 hr 10/15/22 10/15/22 10/15/22 10:59 10:59 10:59 MCV 85.8 MCH 28.0 MCHC 32.6 RDW 15.9 Plt Count 156 L MPV 10.4 Absolute Nucleated RBC 0.000 Nucleated RBC % (auto) 0.0 Anion Gap 16 Estim Creat Clear Calc 97.2 100.1 Estimated GFR > 60 > 60 POC Glucose Random Glucose 117 H Calcium 8.0 L Total Bilirubin Direct Bilirubin AST ALT Alkaline Phosphatase Total Protein Albumin 10/15/22 10/15/22 10/15/22 11:26 15:57 19:46 MCV MCH MCHC RDW Plt Count MPV Absolute Nucleated RBC Nucleated RBC % (auto) Anion Gap Estim Creat Clear Calc Estimated GFR POC Glucose 105 255 H 202 H Random Glucose Calcium Total Bilirubin Direct Bilirubin AST ALT Alkaline Phosphatase Total Protein Albumin 10/16/22 10/16/22 10/16/22 06:16 06:16 07:00 MCV MCH MCHC RDW Plt Count MPV Absolute Nucleated RBC Nucleated RBC % (auto) Anion Gap 15 Estim Creat Clear Calc 111.4 115.3 Estimated GFR > 60 > 60 POC Glucose 164 H Random Glucose 162 H Calcium 8.1 L Total Bilirubin 0.7 Direct Bilirubin 0.4 AST 26 ALT 29 Alkaline Phosphatase 127 H Total Protein 6.1 L Albumin 3.0 L Procedures Date of Service Date of Service: 10/16/22 Progress Note: A&P Assessment and plan (1) Acute cholecystitis: Status: Acute (2) Status post transmetatarsal amputation of right foot: Status: Acute Plan Patient diagnosed with acute cholecystitis with some biliary sludge noted on ultrasound. I reviewed the findings in detail with a medical housekeeper this morning. I recommended laparoscopic or possible open cholecystectomy. I reviewed the procedure, risks, and alternatives in detail and answered his questions to his apparent satisfaction. After discussion of the procedure, risks, and alternatives, he consents to the laparoscopic or possible open cholecystectomy. He has been added onto the operative schedule for today. Time Spent With Patient Time: Total time managing care of this patient today ____ minutes. Quality Stroke Does the patient have a stroke diagnosis?: No VTE Prior VTE?: No VTE Risk Level:: Medical - moderate - high VTE Device Contraindication: Treatment Not Indicated VTE Drug Contraindication: N/A - Med Ordered
--- NOTE | 2022-10-16 08:36 | P.CONAN_ITS ---
HPI - Anesthesia Eval Consult details Narrative: acute cholecystitis PMFSH Active Problems Active Problems: All Active Problems (Updated 10/15/22 @ 14:11 by Alfredo Hernadez MD) Severe sepsis (Acute) Acute cholecystitis (Acute) Nausea and vomiting (Acute) Post-operative infection (Acute) Status post transmetatarsal amputation of right foot (Acute) Diabetic foot ulcer (Acute) Diabetic foot ulcer (Acute) Physical exam (Acute) Microalbuminuria (Acute) Bilateral hand pain (Acute) Right knee pain (Acute) Hypovitaminosis D (Acute) Right foot pain (Acute) Left foot pain (Acute) Hypoglycemia (Acute) Knee pain, chronic (Acute) Type 2 diabetes mellitus with hyperosmolar hyperglycemic state (HHS) (Acute) Autoimmune thyroiditis (Acute) Obesity due to excess calories (Acute) Type 2 diabetes mellitus with hyperglycemia, with long-term current use of insulin (Acute) Proteinuria (Acute) Essential hypertension (Acute) Hyperlipidemia LDL goal <100 (Acute) Past Medical History Medical History (Updated 10/15/22 @ 14:11 by Alfredo Hernadez MD) Acute kidney injury Autoimmune thyroiditis Bacteremia Bilateral hand pain Cataracts, both eyes CHF (congestive heart failure) Cognitive developmental delay Diabetes Diabetic ketoacidosis Edema Essential hypertension HTN (hypertension) Hyperkalemia Hyperlipidemia Hyperlipidemia LDL goal <100 Hyponatremia Hypothyroid Hypovitaminosis D Infection of penis Left foot pain Nausea and vomiting Obesity due to excess calories Proteinuria Right foot pain Right knee pain Type 2 diabetes mellitus with hyperglycemia, with long-term current use of insulin Type 2 diabetes mellitus with other diabetic kidney complication Family History Family History Father HTN (hypertension) Mother Diabetes mellitus Maternal Grandmother Diabetes mellitus Family history of problems with anesthesia: No Surgical History Surgical History 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) Hx of cataract surgery Hx of removal of cyst History of Problems with Anesthesia: No Social History Social History Household Members: Unknown / Unable to assess Household Members Other:: SNF Housing: Unknown / Unable to assess Housing Other:: [facility] Unable to assess alcohol history related to: Unknown Alcohol intake: never Patient Tobacco Use Status: Never used Tobacco e-Cigarette/Vaping Use: Never Used Second Hand Smoke Exposure: No Use of substances other than those prescribed or required for medical reasons: No Substance Use Type: Caffiene Currently Displaying Signs/Symptoms of Drug Intoxication Withdrawal: No Are you DNR?: No Advance Directives: Yes Advance Directives Information Provided: Yes Advance Directives on File: Yes Advance Directives Date on File: 09/10/22 Do you have thoughts of harming others: None Do you have a plan to hurt others: No Plan Recently lost weight without trying: Unsure Eating poorly because of decreased appetite: No Nutrition Risks: No Nutritional Risk Poor oral hygiene: No service: No Current occupational status: disabled Cognitive needs: Yes Hearing needs: No Vision needs: No Meds Allergies Allergy/AdvReac Type Severity Reaction Status Date / Time atorvastatin [ATORVASTATIN] Allergy Unknown skin Verified 10/05/22 09:31 eruption Active Medications: Current Medications Amlodipine Besylate (Amlodipine Besylate 10 Mg Tablet) 10 mg PO DAILY [facility]; Protocol Last Admin: 10/16/22 08:02 Dose: 10 mg Diphenhydramine HCl (Diphenhydramine Hcl 50 Mg/Ml Vial) 25 mg IVPUSH Q6H PRN PRN Reason: nausea Ezetimibe (Ezetimibe 10 Mg Tablet) 10 mg PO DAILY [facility] Last Admin: 10/16/22 08:02 Dose: 10 mg Escitalopram Oxalate (Escitalopram Oxalate 10 Mg Tablet) 10 mg PO DAILY [facility] Last Admin: 10/16/22 08:02 Dose: 10 mg Fenofibrate (Fenofibrate 54 Mg Tablet) 54 mg PO DAILY [facility] Last Admin: 10/16/22 08:02 Dose: 54 mg Gabapentin (Gabapentin 100 Mg Capsule) 100 mg PO TID [facility] Last Admin: 10/16/22 08:02 Dose: 100 mg Glucose (Glucose Gel 15 Gm Gel..Gram.) 15 gm PO Q15M PRN; Protocol PRN Reason: per Hypoglycemia Standing Ord. Heparin Sodium (Porcine) (Heparin Sodium,Porcine 5,000 Unit/Ml Vial) 5,000 unit SUBCUT Q8H [facility] Last Admin: 10/15/22 21:03 Dose: 5,000 unit Dextrose (D10) 250 mls @ 750 mls/hr IV Q15M PRN; Protocol PRN Reason: per Hypoglycemia Standing Ord. Lactated Ringer's (Lr) 1,000 mls @ 80 mls/hr IVCONT .[id number] [facility] Last Admin: 10/16/22 03:25 Dose: 80 mls/hr Piperacillin Sod/Tazobactam (Sod 3.375 gm/ Sodium Chloride) 50 mls @ 100 mls/hr IV Q6H [facility] Last Infusion: 10/16/22 06:10 Dose: Infused Iron Sucrose 200 mg/ Sodium (Chloride) 110 mls @ 440 mls/hr IV DAILY [facility] Stop: 10/17/22 09:14 Last Infusion: 10/15/22 15:11 Dose: Infused Insulin Human Lispro (Insulin Lispro 100 Unit/Ml 3 Ml Vial) [facility] Last Admin: 10/16/22 07:55 Dose: Not Given Levothyroxine Sodium (Levothyroxine Sodium 150 Mcg Tablet) 150 mcg PO DAILY@0630 [facility] Last Admin: 10/16/22 05:22 Dose: Not Given Morphine Sulfate (Morphine Sulfate 2 Mg/Ml Cartridge) 2 mg IVPUSH Q6H PRN; Protocol PRN Reason: Pain, Severe (Pain Scale 7-10) Ondansetron HCl (Ondansetron Odt 4 Mg Tab.Rapdis) 4 mg TRANSLINGU Q6H PRN PRN Reason: nasuea Last Admin: 10/13/22 08:55 Dose: 4 mg Ondansetron HCl (Ondansetron Hcl 4 Mg/2 Ml Vial) 4 mg IVPUSH Q8H PRN PRN Reason: Nausea and Vomiting Last Admin: 10/16/22 06:32 Dose: 4 mg Sodium Chloride (0.9 % Sodium Chloride Flush 3 Ml Syringe) 3 ml IVFLUSH QSHIFT [facility] Last Admin: 10/16/22 07:12 Dose: Not Given Vitamin D (Cholecalciferol (Vitamin D3) 25 Mcg Tablet) 50 mcg PO DAILY [facility] Last Admin: 10/16/22 08:02 Dose: 50 mcg Home Medications Medication Instructions Recorded Confirmed Last Taken Type insulin aspart U-100 100 unit/mL See Protocol subcut QIDACHS 06/20/22 10/13/22 06/20/22 History (3 mL) subcutaneous pen (Novolog FlexPen U-100 Insulin aspart) metformin 500 mg tablet 1,000 mg PO BIDWM 06/20/22 10/13/22 06/20/22 History amlodipine 10 mg tablet 10 mg PO DAILY 10/12/22 10/13/22 Unknown History cholecalciferol (vitamin D3) 50 50 mcg PO DAILY 10/12/22 10/13/22 Unknown History mcg (2,000 unit) capsule dulaglutide 1.5 mg/0.5 mL 1.5 mg subcut FR 10/12/22 10/13/22 Unknown History subcutaneous pen injector (Trulicity) escitalopram oxalate 10 mg tablet 10 mg PO DAILY 10/12/22 10/13/22 Unknown History ezetimibe 10 mg tablet 10 mg PO DAILY 10/12/22 10/13/22 Unknown History fenofibrate 54 mg tablet 54 mg PO DAILY 10/12/22 10/13/22 Unknown History gabapentin 100 mg capsule 100 mg PO TID 10/12/22 10/13/22 Unknown History insulin degludec 200 unit/mL (3 30 unit subcut DAILY 10/12/22 10/13/22 Unknown History mL) subcutaneous pen (Tresiba FlexTouch U-200 insulin) levothyroxine 150 mcg tablet 150 mcg PO DAILY 10/12/22 10/13/22 Unknown History lisinopril 10 mg tablet 10 mg PO DAILY 10/12/22 10/13/22 Unknown History ondansetron HCl 4 mg tablet 4 mg PO 3XD PRN Nausea 10/12/22 10/13/22 Unknown History simvastatin 40 mg tablet 40 mg PO BEDTIME 10/12/22 10/13/22 Unknown History Saccharomyces boulardii 250 mg 250 mg PO BID 10/13/22 10/13/22 Unknown History capsule (Probiotic (S.boulardii)) acetaminophen 325 mg tablet 650 mg PO Q4H PRN Fever Or Pain 10/13/22 10/13/22 Unknown History bisacodyl 10 mg rectal suppository 10 mg FL DAILY PRN Constipation 10/13/22 10/13/22 Unknown History magnesium hydroxide 400 mg/5 mL 30 ml PO DAILY PRN Constipation 10/13/22 10/13/22 Unknown History oral suspension (Milk of Magnesia) sodium phosphates 19 gram-7 118 ml FL DAILY PRN Constipation 10/13/22 10/13/22 Unknown History gram/118 mL enema (Fleet Enema) vancomycin 1 gram/200 mL in 0.9 % 1 g IV Q24H 10/13/22 10/13/22 Unknown History sod. chloride intravenous piggyback Exam Exam Date and Time: October 16, 2022 0836 Height,Weight and Vital Signs: Height 5 ft 5 in Weight 112.945 kg Last Vital Signs Temp 97.0 F 10/16/22 07:01 Pulse 80 10/16/22 07:01 Resp 16 10/16/22 07:01 BP 134/82 10/16/22 07:01 Pulse Ox 97 10/16/22 07:01 O2 Del Method Room Air 10/16/22 07:01 Pertinent Lab Results Pertinent Lab Results: Laboratory Tests 10/12/22 10/12/22 10/12/22 17:49 19:09 19:09 WBC 15.3 H RBC 2.66 L Hgb 7.4 L Hct 22.5 L MCV 84.6 MCH 27.8 MCHC 32.9 RDW 15.5 Plt Count 144 L D MPV 9.9 Immature Gran % (Auto) 0.5 H Neut % (Auto) 87.6 H Lymph % (Auto) 5.8 L [place] % (Auto) 5.0 Eos % (Auto) 0.8 Baso % (Auto) 0.3 Lymph # (Auto) 0.9 L [place] # (Auto) 0.8 Eos # (Auto) 0.1 Baso # (Auto) 0.0 Abs Immat Gran (auto) 0.07 H Absolute Neuts (auto) 13.4 H Absolute Nucleated RBC 0.000 Nucleated RBC % (auto) 0.0 Sodium 138 Potassium 4.3 Chloride 108 Carbon Dioxide 19 L Anion Gap 15 BUN 42 H Creatinine 2.81 H Estim Creat Clear Calc 35.2 Estimated GFR 24 POC Glucose Random Glucose 72 Fasting Glucose Lactic Acid Calcium 8.0 L Iron TIBC % Saturation Unsat Iron Binding Total Bilirubin 1.1 H Direct Bilirubin AST 32 ALT 21 Alkaline Phosphatase 98 Total Protein 6.6 Albumin 3.4 L Lipase 20 Random Vancomycin C. difficile Tox B Gene NEGATIVE 10/12/22 10/13/22 10/13/22 19:09 01:11 06:58 WBC RBC Hgb Hct MCV MCH MCHC RDW Plt Count MPV Immature Gran % (Auto) Neut % (Auto) Lymph % (Auto) [place] % (Auto) Eos % (Auto) Baso % (Auto) Lymph # (Auto) [place] # (Auto) Eos # (Auto) Baso # (Auto) Abs Immat Gran (auto) Absolute Neuts (auto) Absolute Nucleated RBC Nucleated RBC % (auto) Sodium Potassium Chloride Carbon Dioxide Anion Gap BUN Creatinine 2.10 H Estim Creat Clear Calc 47.2 Estimated GFR 33 POC Glucose Random Glucose Fasting Glucose Lactic Acid 1.2 Calcium Iron TIBC % Saturation Unsat Iron Binding Total Bilirubin Direct Bilirubin AST ALT Alkaline Phosphatase Total Protein Albumin Lipase Random Vancomycin 13.7 L C. difficile Tox B Gene 10/13/22 10/13/22 10/13/22 07:36 11:01 16:16 WBC RBC Hgb Hct MCV MCH MCHC RDW Plt Count MPV Immature Gran % (Auto) Neut % (Auto) Lymph % (Auto) [place] % (Auto) Eos % (Auto) Baso % (Auto) Lymph # (Auto) [place] # (Auto) Eos # (Auto) Baso # (Auto) Abs Immat Gran (auto) Absolute Neuts (auto) Absolute Nucleated RBC Nucleated RBC % (auto) Sodium Potassium Chloride Carbon Dioxide Anion Gap BUN Creatinine Estim Creat Clear Calc Estimated GFR POC Glucose 78 85 85 Random Glucose Fasting Glucose Lactic Acid Calcium Iron TIBC % Saturation Unsat Iron Binding Total Bilirubin Direct Bilirubin AST ALT Alkaline Phosphatase Total Protein Albumin Lipase Random Vancomycin C. difficile Tox B Gene 10/13/22 10/14/22 10/14/22 20:09 05:06 05:06 WBC 14.4 H RBC 2.62 L Hgb 7.3 L Hct 22.4 L MCV 85.5 MCH 27.9 MCHC 32.6 RDW 15.6 Plt Count 152 L MPV 10.5 Immature Gran % (Auto) Neut % (Auto) Lymph % (Auto) [place] % (Auto) Eos % (Auto) Baso % (Auto) Lymph # (Auto) [place] # (Auto) Eos # (Auto) Baso # (Auto) Abs Immat Gran (auto) Absolute Neuts (auto) Absolute Nucleated RBC 0.000 Nucleated RBC % (auto) 0.0 Sodium 139 Potassium 4.0 Chloride 107 Carbon Dioxide 20 L Anion Gap 16 BUN 22 H Creatinine 1.35 Estim Creat Clear Calc 73.4 Estimated GFR 55 POC Glucose 155 H Random Glucose Fasting Glucose 128 H Lactic Acid Calcium 8.0 L Iron 29 L TIBC 171 L % Saturation 17 Unsat Iron Binding 142 Total Bilirubin Direct Bilirubin AST ALT Alkaline Phosphatase Total Protein Albumin Lipase Random Vancomycin C. difficile Tox B Gene 10/14/22 10/14/22 10/14/22 07:25 11:14 16:43 WBC RBC Hgb Hct MCV MCH MCHC RDW Plt Count MPV Immature Gran % (Auto) Neut % (Auto) Lymph % (Auto) [place] % (Auto) Eos % (Auto) Baso % (Auto) Lymph # (Auto) [place] # (Auto) Eos # (Auto) Baso # (Auto) Abs Immat Gran (auto) Absolute Neuts (auto) Absolute Nucleated RBC Nucleated RBC % (auto) Sodium Potassium Chloride Carbon Dioxide Anion Gap BUN Creatinine Estim Creat Clear Calc Estimated GFR POC Glucose 151 H 144 H 124 H Random Glucose Fasting Glucose Lactic Acid Calcium Iron TIBC % Saturation Unsat Iron Binding Total Bilirubin Direct Bilirubin AST ALT Alkaline Phosphatase Total Protein Albumin Lipase Random Vancomycin C. difficile Tox B Gene 10/14/22 10/15/22 10/15/22 19:55 03:24 06:57 WBC RBC Hgb Hct MCV MCH MCHC RDW Plt Count MPV Immature Gran % (Auto) Neut % (Auto) Lymph % (Auto) [place] % (Auto) Eos % (Auto) Baso % (Auto) Lymph # (Auto) [place] # (Auto) Eos # (Auto) Baso # (Auto) Abs Immat Gran (auto) Absolute Neuts (auto) Absolute Nucleated RBC Nucleated RBC % (auto) Sodium Potassium Chloride Carbon Dioxide Anion Gap BUN Creatinine Estim Creat Clear Calc Estimated GFR POC Glucose 117 H 123 H 111 Random Glucose Fasting Glucose Lactic Acid Calcium Iron TIBC % Saturation Unsat Iron Binding Total Bilirubin Direct Bilirubin AST ALT Alkaline Phosphatase Total Protein Albumin Lipase Random Vancomycin C. difficile Tox B Gene 10/15/22 10/15/22 10/15/22 10:59 10:59 10:59 WBC 11.2 H RBC 2.68 L Hgb 7.5 L Hct 23.0 L MCV 85.8 MCH 28.0 MCHC 32.6 RDW 15.9 Plt Count 156 L MPV 10.4 Immature Gran % (Auto) Neut % (Auto) Lymph % (Auto) [place] % (Auto) Eos % (Auto) Baso % (Auto) Lymph # (Auto) [place] # (Auto) Eos # (Auto) Baso # (Auto) Abs Immat Gran (auto) Absolute Neuts (auto) Absolute Nucleated RBC 0.000 Nucleated RBC % (auto) 0.0 Sodium 140 Potassium 3.9 Chloride 109 H Carbon Dioxide 19 L Anion Gap 16 BUN 12 Creatinine 1.02 0.99 Estim Creat Clear Calc 97.2 100.1 Estimated GFR > 60 > 60 POC Glucose Random Glucose 117 H Fasting Glucose Lactic Acid Calcium 8.0 L Iron TIBC % Saturation Unsat Iron Binding Total Bilirubin Direct Bilirubin AST ALT Alkaline Phosphatase Total Protein Albumin Lipase Random Vancomycin C. difficile Tox B Gene 10/15/22 10/15/22 10/15/22 11:26 15:57 19:46 WBC RBC Hgb Hct MCV MCH MCHC RDW Plt Count MPV Immature Gran % (Auto) Neut % (Auto) Lymph % (Auto) [place] % (Auto) Eos % (Auto) Baso % (Auto) Lymph # (Auto) [place] # (Auto) Eos # (Auto) Baso # (Auto) Abs Immat Gran (auto) Absolute Neuts (auto) Absolute Nucleated RBC Nucleated RBC % (auto) Sodium Potassium Chloride Carbon Dioxide Anion Gap BUN Creatinine Estim Creat Clear Calc Estimated GFR POC Glucose 105 255 H 202 H Random Glucose Fasting Glucose Lactic Acid Calcium Iron TIBC % Saturation Unsat Iron Binding Total Bilirubin Direct Bilirubin AST ALT Alkaline Phosphatase Total Protein Albumin Lipase Random Vancomycin C. difficile Tox B Gene 10/16/22 10/16/22 10/16/22 06:16 06:16 07:00 WBC RBC Hgb Hct MCV MCH MCHC RDW Plt Count MPV Immature Gran % (Auto) Neut % (Auto) Lymph % (Auto) [place] % (Auto) Eos % (Auto) Baso % (Auto) Lymph # (Auto) [place] # (Auto) Eos # (Auto) Baso # (Auto) Abs Immat Gran (auto) Absolute Neuts (auto) Absolute Nucleated RBC Nucleated RBC % (auto) Sodium 140 Potassium 3.5 Chloride 107 Carbon Dioxide 22 Anion Gap 15 BUN 6 L Creatinine 0.89 0.86 Estim Creat Clear Calc 111.4 115.3 Estimated GFR > 60 > 60 POC Glucose 164 H Random Glucose 162 H Fasting Glucose Lactic Acid Calcium 8.1 L Iron TIBC % Saturation Unsat Iron Binding Total Bilirubin 0.7 Direct Bilirubin 0.4 AST 26 ALT 29 Alkaline Phosphatase 127 H Total Protein 6.1 L Albumin 3.0 L Lipase Random Vancomycin C. difficile Tox B Gene Airway Mallampati Class: III TM Dist: <=3cm Neck ROM: Limited Heart: rrr Lungs: cta Assessment and Plan Assessment Anesthesia Assessment: Anesthesia Plan Discussed and Chart Reviewed Final Anesthetic Review Family History of Problems with Anesthesia: No History of Problems with Anesthesia: No NPO: Yes ASA Class: IV Final Preanesthetic Review: No Changes in Pt Med Stat, Meds/Allgs Chart Reviewed, Consent Obtained/Reviewed and Anes Risks/Benef Reviewed Patient Risk: High Procedure Risk: Intermediate Anesthetic Plan Anesthetic Plan: GA Disposition: Standard PACU
--- NOTE | 2022-10-16 09:57 | P.CDIM_ITS ---
PROVIDER RESPONSE TEXT: To clarify, the appropriate diagnosis supported by the clinical indicators: Iron deficiency anemia QUERY TEXT: PHYSICIAN'S DOCUMENTATION REQUEST Date of Query: 10/16/2022 08:11 AM EDT Patient Name: Mehul Beltran Admit Date: 10/13/2022 Dear Alfredo Hernadez, A review of the medical record indicates additional documentation may be needed. Please review below and update the documentation accordingly. Clinical Indicators: PN: 10/15 - Acute on chronic anemia Hb stable around 7.5 from baseline above 8 Low iron profile, start IV replacement inpatient HGB 7.3 HCT 22.4 BP 108/52 Based on the above, could you clarify which of the following is the most likely type of anemia you ar e evaluating, treating, and/or monitoring? Iron deficiency anemia Iron deficiency anemia secondary to chronic blood loss Iron deficiency anemia secondary to acute on chronic blood loss Unable to determine or other Other (explain) Clinically unable to determine (explain) Thank you, Elizabeth Perdue, CCS, CDIS Use of terms such as suspected, likely, concern for, or probable (associated with a specific diagnosi s that is being evaluated, monitored, or treated as if it exists) are acceptable and can be coded in the inpatient se tting, when documented at the time of discharge. Please use your independent medical judgment in providing your response. THIS QUERY IS PART OF THE PERMANENT MEDICAL RECORD
--- NOTE | 2022-10-16 11:06 | P.PNIM_ITS ---
Subjective Subjective Date of Service: 10/16/22 Interval History: seen and evaluated improving abdominal pain and nausea HIDA scan showed evidence of acute cholecystitis Plan for CCY this afternoon No other overnight events Review of Systems Review of Systems: Yes all other systems are reviewed and are negative Physical Exam Vital Signs: Vital Signs: Last Vital Signs Temp 97.0 F 10/16/22 09:27 Pulse 79 10/16/22 09:27 Resp 16 10/16/22 09:27 BP 135/72 10/16/22 09:27 Pulse Ox 98 10/16/22 09:27 O2 Del Method Room Air 10/16/22 09:27 BMI result Body Mass Index 41.4 Const: Other: Constitutional : Awake, interactive, not in distress Neck : Normal inspection, Supple Cardiovascular : RRR, no JVP, no lower extremity edema Respiratory : good bilateral air entry, no crackles, wheezes or rhonchi Gastrointestinal: soft, lax, Normal bowel sounds, no RUQ tenderness, no dsouza sign Skin : Warm, Dry, Rt transmetatarsal wound with granulation tissue, no signs of infection Neurological : Alert & oriented x3, No focal deficit Objective Data Active Medications Amlodipine Besylate (Amlodipine Besylate 10 Mg Tablet) 10 mg PO DAILY [facility]; Protocol Last Admin: 10/16/22 08:02 Dose: 10 mg Documented By: DAVID Diphenhydramine HCl (Diphenhydramine Hcl 50 Mg/Ml Vial) 25 mg IVPUSH Q6H PRN PRN Reason: nausea Ezetimibe (Ezetimibe 10 Mg Tablet) 10 mg PO DAILY [facility] Last Admin: 10/16/22 08:02 Dose: 10 mg Documented By: DAVID Escitalopram Oxalate (Escitalopram Oxalate 10 Mg Tablet) 10 mg PO DAILY [facility] Last Admin: 10/16/22 08:02 Dose: 10 mg Documented By: DAVID Fenofibrate (Fenofibrate 54 Mg Tablet) 54 mg PO DAILY [facility] Last Admin: 10/16/22 08:02 Dose: 54 mg Documented By: DAVID Fentanyl (Fentanyl Citrate/Pf 100 Mcg/2 Ml Vial) 25 mcg IVPUSH Q5M PRN; Protocol PRN Reason: Pain, Moderate (Pain Scale 4-6 Gabapentin (Gabapentin 100 Mg Capsule) 100 mg PO TID [facility] Last Admin: 10/16/22 08:02 Dose: 100 mg Documented By: DAVID Glucose (Glucose Gel 15 Gm Gel..Gram.) 15 gm PO Q15M PRN; Protocol PRN Reason: per Hypoglycemia Standing Ord. Heparin Sodium (Porcine) (Heparin Sodium,Porcine 5,000 Unit/Ml Vial) 5,000 unit SUBCUT Q8H [facility] Last Admin: 10/15/22 21:03 Dose: 5,000 unit Documented By: LILIA Hydromorphone HCl (Hydromorphone Hcl 0.5 Mg/0.5 Ml Syringe) 0.25 mg IVPUSH Q5M PRN; Protocol PRN Reason: Pain, Severe (Pain Scale 7-10) Dextrose (D10) 250 mls @ 750 mls/hr IV Q15M PRN; Protocol PRN Reason: per Hypoglycemia Standing Ord. Lactated Ringer's (Lr) 1,000 mls @ 80 mls/hr IVCONT .[id number] [facility] Last Admin: 10/16/22 03:25 Dose: 80 mls/hr Documented By: LILIA Piperacillin Sod/Tazobactam (Sod 3.375 gm/ Sodium Chloride) 50 mls @ 100 mls/hr IV Q6H [facility] Last Infusion: 10/16/22 06:10 Dose: 0 mls/hr Documented By: LILIA Iron Sucrose 200 mg/ Sodium (Chloride) 110 mls @ 440 mls/hr IV DAILY [facility] Stop: 10/17/22 09:14 Last Infusion: 10/15/22 15:11 Dose: 0 mls/hr Documented By: DAVID Insulin Human Lispro (Insulin Lispro 100 Unit/Ml 3 Ml Vial) 0 unit SUBCUT QIDACHS [facility]; Protocol Last Admin: 10/16/22 07:55 Dose: Not Given Documented By: DAVID Non-Admin Reason: NPO Levothyroxine Sodium (Levothyroxine Sodium 150 Mcg Tablet) 150 mcg PO DAILY@0630 [facility] Last Admin: 10/16/22 05:22 Dose: Not Given Documented By: LILIA Non-Admin Reason: NPO Morphine Sulfate (Morphine Sulfate 2 Mg/Ml Cartridge) 2 mg IVPUSH Q6H PRN; Protocol PRN Reason: Pain, Severe (Pain Scale 7-10) Ondansetron HCl (Ondansetron Odt 4 Mg Tab.Rapdis) 4 mg TRANSLINGU Q6H PRN PRN Reason: nasuea Last Admin: 10/13/22 08:55 Dose: 4 mg Documented By: JOSETTE Ondansetron HCl (Ondansetron Hcl 4 Mg/2 Ml Vial) 4 mg IVPUSH Q8H PRN PRN Reason: Nausea and Vomiting Last Admin: 10/16/22 06:32 Dose: 4 mg Documented By: LILIA Sodium Chloride (0.9 % Sodium Chloride Flush 3 Ml Syringe) 3 ml IVFLUSH QSHIFT [facility] Last Admin: 10/16/22 07:12 Dose: Not Given Documented By: DAVID Non-Admin Reason: IV Running Vitamin D (Cholecalciferol (Vitamin D3) 25 Mcg Tablet) 50 mcg PO DAILY [facility] Last Admin: 10/16/22 08:02 Dose: 50 mcg Documented By: DAVID Labs 10/15/22 10:59 10/16/22 06:16 Labs: Laboratory Results - last 24 hr 10/15/22 10/15/22 10/15/22 10:59 10:59 10:59 MCV 85.8 MCH 28.0 MCHC 32.6 RDW 15.9 Plt Count 156 L MPV 10.4 Absolute Nucleated RBC 0.000 Nucleated RBC % (auto) 0.0 Anion Gap 16 Estim Creat Clear Calc 97.2 100.1 Estimated GFR > 60 > 60 POC Glucose Random Glucose 117 H Calcium 8.0 L Total Bilirubin Direct Bilirubin AST ALT Alkaline Phosphatase Total Protein Albumin 10/15/22 10/15/22 10/15/22 11:26 15:57 19:46 MCV MCH MCHC RDW Plt Count MPV Absolute Nucleated RBC Nucleated RBC % (auto) Anion Gap Estim Creat Clear Calc Estimated GFR POC Glucose 105 255 H 202 H Random Glucose Calcium Total Bilirubin Direct Bilirubin AST ALT Alkaline Phosphatase Total Protein Albumin 10/16/22 10/16/22 10/16/22 06:16 06:16 07:00 MCV MCH MCHC RDW Plt Count MPV Absolute Nucleated RBC Nucleated RBC % (auto) Anion Gap 15 Estim Creat Clear Calc 111.4 115.3 Estimated GFR > 60 > 60 POC Glucose 164 H Random Glucose 162 H Calcium 8.1 L Total Bilirubin 0.7 Direct Bilirubin 0.4 AST 26 ALT 29 Alkaline Phosphatase 127 H Total Protein 6.1 L Albumin 3.0 L Assessment and Plan (1) Severe sepsis: Status: Acute (2) Acute cholecystitis: Status: Acute Plan 52M PMH DM, hypothyroid, hld, htn, morbid obesity, presented with nausea and vomiting. patient is a vague historian, reports multiple days of inability to tolerate po, nausea, vomiting, abdominal discomfort. severe sepsis 2/[address] CT scan , US showing changes suggestive of CCY Surgery input appreciated, HIDA scan positive for cholecystitis continue Zon surgery team to do laprascopy\open cholecystomy today RLE wound surgery input appreciated, no evidence of infection He will eventually need a skin graft to the wound? wound care JJ resolved monitor bmp acute on chronic anemia Hb stable around 7.5 from baseline above 8 check occult low iron profile, start IV replacement inpatient DM insulin pocs hypothryoid synthroid htn amlodipine hold lisinopril for jj hld hold zocor (non formulary), has lipitor allergy morbid obesity weight loss recommended dvt prophylaxis - hep sq full code patient with sepsis 2/2 intraabdominal infx needs iv abx and surgical intervention, at risk for further decompensation, will require overnight inpat ient. Time Spent With Patient Time: Total time managing care of this patient today ____ minutes. Quality Stroke Does the patient have a stroke diagnosis?: No VTE Prior VTE?: No VTE Risk Level:: Medical - moderate - high VTE Device Contraindication: Treatment Not Indicated VTE Drug Contraindication: N/A - Med Ordered
--- NOTE | 2022-10-16 12:15 | P.OP_ITS ---
Operative Note Operative Note Date of Service: 10/16/22 Narrative: Preoperative diagnosis: Acute cholecystitis, cholelithiasis Postoperative diagnosis: acute gangrenous cholecystitis, cholelithiasis, gallbladder perforation Procedure: Laparoscopic cholecystectomy Surgeon: Bao Dempsey MD Sagger Soak: CLAY Lewis Anesthesia: General endotracheal Indications for procedure: 52-year-old male patient presenting with complaints of upper abdominal pain, nausea and vomiting found to have an elevated WBC. Workup revealed acute cholecystitis due to cholelithiasis. Operative findings: Acute gangrenous cholecystitis with anterior wall perforation. Multiple small gallstones within the gallbladder. Specimen: gallbladder Estimated blood loss: 30 mL Complications: non Procedure details: Patient was brought to the OR and placed in a supine position. After administering general anesthesia the patient's abdomen was prepped with ChloraPrep and draped in a sterile fashion. Local anesthesia consisting of 0.5% Sensorcaine without epinephrine was infiltrated in a periumbilical region. A 5 mm incision was made above the umbilicus in a transverse fashion. The Veress needle was then inserted while elevating abdominal cavity with towel clips. After positive drop test the abdomen was insufflated to a pressure of 15 mm of mercury. The Veress needle was then removed and a 5 mm trocar inserted. The camera was inserted in the abdomen explored. A 12 mm trocar was then placed in the epigastrium. Two 5 mm trocars placed in the right upper quadrant by the pediatric medical assistant. The patient was placed in reverse Trendelenburg positioning and rotated to the left. The above findings were noted. The gallbladder was grasped with the fundus and retracted cephalad by the pediatric medical assistant. Adhesions were taken down off the Inferior wall the gallbladder. The infundibulum was then grasped and retracted away from the liver bed, also by the pediatric medical assistant. The Dolphin dissected was then used by the surgeon to dissect the peritoneum off the infundibulum to reveal the junction with the cystic duct. Cystic artery was noted slightly medial and posterior to the cystic duct. After obtaining a critical view the cystic duct was doubly clipped and divided. The cystic artery was then doubly clipped and divided. The gallbladder was then dissected off the liver bed using electrocautery with an L hook. Hemostasis was assured all times using the electrocautery. When the gallbladder is completely dissected off the liver bed was placed in an Endo- Catch bag and brought out through the epigastric incision. The gallbladder was sent to pathology for further examination. A Jluis-Llanos drain was left in the gallbladder fossa and connected to bulb suction. This was brought out through the lateral trocar incision. The abdomen was then re-examined. The liver bed was irrigated and suctioned dry. No bleeding or bile leak could be identified. CO2 was then evacuated and all trocars removed. Fascia was closed at the epigastric incision using a [id number] 0 Polysorb suture. Skin was closed in all incisions using a subcuticular 4 0 Polysorb suture by both the surgeon and pediatric medical assistant. Sterile dressings consisting of Steri-Strips, 2 x 2 gauze, and Tegaderm were then applied. The patient tolerated the procedure well. Sponge instrument and needle counts reported as correct. The patient was transferred to PACU in stable condition.
[2022-10-16] MEDS: Iron Sucrose Complex 200 MG in 0.9 % Sodium Chloride 100 ML 440 MG IV (13:32)
[2022-10-16 13:56] LABS: Glucose, Whole Blood 202 mg/dL (60-115)
--- NOTE | 2022-10-16 15:10 | PM.IDPN ---
Subjective Subjective Date of Service: 10/16/22 Critical Care Time (minutes): 15 Comment: patient resting postop He has had cholycystectomy Objective Data Labs 10/15/22 10:59 10/16/22 06:16 Labs: Laboratory Results - last 24 hr 10/15/22 10/15/22 10/16/22 15:57 19:46 06:16 Sodium Potassium Chloride Carbon Dioxide Anion Gap BUN Creatinine 0.89 Estim Creat Clear Calc 111.4 Estimated GFR > 60 POC Glucose 255 H 202 H Random Glucose Calcium Total Bilirubin 0.7 Direct Bilirubin 0.4 AST 26 ALT 29 Alkaline Phosphatase 127 H Total Protein 6.1 L Albumin 3.0 L 10/16/22 10/16/22 10/16/22 06:16 07:00 13:26 Sodium 140 Potassium 3.5 Chloride 107 Carbon Dioxide 22 Anion Gap 15 BUN 6 L Creatinine 0.86 Estim Creat Clear Calc 115.3 Estimated GFR > 60 POC Glucose 164 H 202 H Random Glucose 162 H Calcium 8.1 L Total Bilirubin Direct Bilirubin AST ALT Alkaline Phosphatase Total Protein Albumin Microbiology Microbiology Results: Microbiology 10/12/22 19:13 Blood - Venous Blood Culture - Preliminary No growth after 48 hours. 10/12/22 19:13 Blood - Venous Blood Culture - Preliminary No growth after 48 hours. Physical Exam Vital Signs: Vital Signs: Last Vital Signs Temp 96.8 F 10/16/22 13:00 Pulse 77 10/16/22 13:00 Resp 20 10/16/22 13:00 BP 136/74 10/16/22 13:00 Pulse Ox 98 10/16/22 13:00 O2 Del Method Nasal Cannula 10/16/22 13:00 O2 Flow Rate 2 10/16/22 13:00 BMI result Body Mass Index 41.4 Const: General: cooperative Resp: Effort & Inspection: normal respiratory effort Cardio: Rate: regular rate Rhythm: regular rhythm GI: Palpation (GI): Soft to palpation and nontender Assessment and Plan Assessment and plan (1) Acute cholecystitis: Problem details: He has had surgery Status: Acute Assessment and Plan: Continue Zosyn,now day four until leaves (2) Severe sepsis: Status: Acute Time Spent With Patient Time: Total time managing care of this patient today ____ minutes.
[2022-10-16 16:44] LABS: Glucose, Whole Blood 175 mg/dL (60-115)
[2022-10-16] MEDS: Insulin Lispro 100 UNIT/ML 3 ML VIAL SUBCUT ×2 (17:39→22:29)
[2022-10-16] MEDS: 0.9 % Sodium Chloride Flush 3 ML SYRINGE IVFLUSH (19:40)
[2022-10-16 19:53] LABS: Glucose, Whole Blood 195 mg/dL (60-115)
[2022-10-17] VITALS (12 sets, daily range): BP systolic 140–155; BP diastolic 69–84; PULSE 76–84; RESP 16–18; TEMP 36.1–36.9; O2SAT 94–99
[2022-10-17] MEDS: Piperacillin Sodium/Tazobactam 3.375 GM in 0.9 % Sodium Chloride 50 ML IV ×4 (02:30→19:46)
[2022-10-17] MEDS: Levothyroxine Sodium 150 MCG TABLET PO (06:07)
[2022-10-17 07:02] LABS: Mean Corpuscular HGB Conc 32.5 g/dl (31.0-36.0); Mean Corpuscular Hemoglobin 27.8 pg (27.0-33.0); Mean Corpuscular Volume 85.5 fL (80.0-98.0); Mean Platelet Volume 10.2 fL (9.4-12.4); Platelet Count 170 X10*3/uL (160-400); Red Blood Count 2.34 X10*6/uL (4.60-5.80); Red Cell Distribution Width 15.8 % (11.0-16.0); White Blood Count 6.4 X10*3/uL (4.8-10.8)
[2022-10-17 07:17] LABS: Creatinine Clr Calc Pharmacy 119.4; Estimated Glomerular Filt Rate > 60
[2022-10-17 07:22] LABS: Anion Gap 12 (12-20); Blood Urea Nitrogen 3 mg/dL (9-16); Calcium 7.7 mg/dL (8.4-10.2); Carbon Dioxide 26 mmol/L (22-29); Chloride 105 mmol/L (96-108); Creatinine Clr Calc Pharmacy 119.4; Estimated Glomerular Filt Rate > 60; Glucose Random 192 mg/dL (60-115); Potassium 3.5 mmol/L (3.3-5.1); Sodium 139 mmol/L (135-145)
[2022-10-17 07:44] LABS: Glucose, Whole Blood 192 mg/dL (60-115)
[2022-10-17 08:06] LABS: Hemoglobin 6.5 g/dl (14.0-18.0)
[2022-10-17] MEDS: Insulin Lispro 100 UNIT/ML 3 ML VIAL SUBCUT ×4 (08:29→20:47)
[2022-10-17] MEDS: Escitalopram Oxalate 10 MG TABLET PO (08:30)
[2022-10-17] MEDS: Gabapentin 100 MG CAPSULE PO ×3 (08:30→20:36)
[2022-10-17] MEDS: amLODIPine Besylate 10 MG TABLET PO (08:30)
[2022-10-17] MEDS: Ezetimibe 10 MG TABLET PO (08:30)
[2022-10-17] MEDS: Cholecalciferol (Vitamin D3) 25 MCG TABLET 50 MCG PO (08:31)
[2022-10-17] MEDS: Fenofibrate 54 MG TABLET PO (09:03)
--- NOTE | 2022-10-17 09:14 | PM.PNGS ---
Subjective Subjective Date of Service: 10/17/22 Interval history: Feels much better this morning. Tolerating solid diet without nausea or vomiting. Pain improved. Has not been OOB. Physical Exam Vital Signs: Vital Signs: Last Vital Signs Temp 96.9 F 10/17/22 07:03 Pulse 80 10/17/22 07:03 Resp 18 10/17/22 07:03 BP 149/84 H 10/17/22 07:03 Pulse Ox 97 10/17/22 07:03 O2 Del Method Room Air 10/17/22 07:03 O2 Flow Rate 2 10/17/22 03:13 BMI result Body Mass Index 41.4 Const: General: comfortable, no acute distress and alert Orientation/consciousness: patient oriented x3 Resp: Effort & Inspection: normal respiratory effort Cardio: Rate: regular rate GI: Other: BK drain scanty serosanguineous output Inspection: No distended and Yes incision (dressings intact) Palpation (GI): Soft to palpation, Tenderness to palpation present (GI) (mild incisional), no guarding and not rigid Skin: General skin exam: no rashes or lesions noted Neuro: General: patient oriented x3 and moves all extremities Objective Data Active Medications Amlodipine Besylate (Amlodipine Besylate 10 Mg Tablet) 10 mg PO DAILY [facility]; Protocol Last Admin: 10/17/22 08:30 Dose: 10 mg Documented By: FLEX Diphenhydramine HCl (Diphenhydramine Hcl 50 Mg/Ml Vial) 25 mg IVPUSH Q6H PRN PRN Reason: nausea Ezetimibe (Ezetimibe 10 Mg Tablet) 10 mg PO DAILY [facility] Last Admin: 10/17/22 08:30 Dose: 10 mg Documented By: FLEX Escitalopram Oxalate (Escitalopram Oxalate 10 Mg Tablet) 10 mg PO DAILY [facility] Last Admin: 10/17/22 08:30 Dose: 10 mg Documented By: FLEX Fenofibrate (Fenofibrate 54 Mg Tablet) 54 mg PO DAILY [facility] Last Admin: 10/17/22 09:03 Dose: 54 mg Documented By: FLEX Gabapentin (Gabapentin 100 Mg Capsule) 100 mg PO TID [facility] Last Admin: 10/17/22 08:30 Dose: 100 mg Documented By: FLEX Glucose (Glucose Gel 15 Gm Gel..Gram.) 15 gm PO Q15M PRN; Protocol PRN Reason: per Hypoglycemia Standing Ord. Heparin Sodium (Porcine) (Heparin Sodium,Porcine 5,000 Unit/Ml Vial) 5,000 unit SUBCUT Q8H [facility] Last Admin: 10/17/22 05:06 Dose: Not Given Documented By: LILIA Non-Admin Reason: Physician Held Med Dextrose (D10) 250 mls @ 750 mls/hr IV Q15M PRN; Protocol PRN Reason: per Hypoglycemia Standing Ord. Lactated Ringer's (Lr) 1,000 mls @ 80 mls/hr IVCONT .[id number] [facility] Last Admin: 10/16/22 20:33 Dose: 80 mls/hr Documented By: LILIA Piperacillin Sod/Tazobactam (Sod 3.375 gm/ Sodium Chloride) 50 mls @ 100 mls/hr IV Q6H [facility] Last Infusion: 10/17/22 09:06 Dose: 0 mls/hr Documented By: FLEX Insulin Human Lispro (Insulin Lispro 100 Unit/Ml 3 Ml Vial) 0 unit SUBCUT QIDACHS [facility]; Protocol Last Admin: 10/17/22 08:29 Dose: 2 unit Documented By: FLEX Levothyroxine Sodium (Levothyroxine Sodium 150 Mcg Tablet) 150 mcg PO DAILY@0630 [facility] Last Admin: 10/17/22 06:07 Dose: 150 mcg Documented By: LILIA Ondansetron HCl (Ondansetron Odt 4 Mg Tab.Rapdis) 4 mg TRANSLINGU Q6H PRN PRN Reason: nasuea Last Admin: 10/13/22 08:55 Dose: 4 mg Documented By: JOSETTE Ondansetron HCl (Ondansetron Hcl 4 Mg/2 Ml Vial) 4 mg IVPUSH Q8H PRN PRN Reason: Nausea and Vomiting Last Admin: 10/16/22 06:32 Dose: 4 mg Documented By: LILIA Oxycodone HCl (Oxycodone Hcl Immed Release 5 Mg Tablet) 5 mg PO Q4H PRN PRN Reason: Pain, Moderate (Pain Scale 4-6 Sodium Chloride (0.9 % Sodium Chloride Flush 3 Ml Syringe) 3 ml IVFLUSH QSHIFT [facility] Last Admin: 10/17/22 08:39 Dose: Not Given Documented By: FLEX Non-Admin Reason: IV Running Vitamin D (Cholecalciferol (Vitamin D3) 25 Mcg Tablet) 50 mcg PO DAILY [facility] Last Admin: 10/17/22 08:31 Dose: 50 mcg Documented By: FLEX Labs 10/17/22 06:30 10/17/22 06:30 Labs: Laboratory Results - last 24 hr 10/16/22 10/16/22 10/16/22 13:26 16:34 19:47 MCV MCH MCHC RDW Plt Count MPV Absolute Nucleated RBC Nucleated RBC % (auto) Anion Gap Estim Creat Clear Calc Estimated GFR POC Glucose 202 H 175 H 195 H Random Glucose Calcium 10/17/22 10/17/22 10/17/22 06:30 06:30 06:30 MCV 85.5 MCH 27.8 MCHC 32.5 RDW 15.8 Plt Count 170 MPV 10.2 Absolute Nucleated RBC 0.000 Nucleated RBC % (auto) 0.0 Anion Gap 12 Estim Creat Clear Calc 119.4 119.4 Estimated GFR > 60 > 60 POC Glucose Random Glucose 192 H Calcium 7.7 L 10/17/22 07:02 MCV MCH MCHC RDW Plt Count MPV Absolute Nucleated RBC Nucleated RBC % (auto) Anion Gap Estim Creat Clear Calc Estimated GFR POC Glucose 192 H Random Glucose Calcium Procedures Date of Service Date of Service: 10/17/22 Progress Note: A&P Assessment and plan (1) Acute cholecystitis: Status: Acute (2) S/P laparoscopic cholecystectomy: Status: Acute Plan 52 year old male admitted with abd pain, N/V found to have acute cholecystitis. POD #1 s/p lap CCY. Found to have acute gangrenous cholecystitis, cholelithiasis, gallbladder perforation. He is improved this morning and well appearing. VSS. Abd exam benign. BK drain with scanty nonbilious, nonpurulent output. Will keep in place for now and remove prior to d/c. Would cont IV abx given gangrenous gallbladder with perforation. H/H drifted this am, will defer to medicine regarding possible transfusion. Encouraged OOB/ambulation, IS use. PT consult. Time Spent With Patient Time: Total time managing care of this patient today ____ minutes. Quality Stroke Does the patient have a stroke diagnosis?: No VTE Prior VTE?: No VTE Risk Level:: Medical - moderate - high VTE Device Contraindication: Treatment Not Indicated VTE Drug Contraindication: N/A - Med Ordered
[2022-10-17] MEDS: Lactated Ringers 1,000 ML 80 ML IVCONT (09:23)
[2022-10-17] MEDS: Iron Sucrose Complex 200 MG in 0.9 % Sodium Chloride 100 ML 440 MG IV (10:14)
[2022-10-17] MEDS: ondansetron HCL 4 MG/2 ML VIAL IVPUSH ×2 (10:14→18:42)
--- NOTE | 2022-10-17 10:45 | P.PNIM_ITS ---
Subjective Subjective Date of Service: 10/17/22 Interval History: feels better Physical Exam Vital Signs: Vital Signs: Last Vital Signs Temp 96.9 F 10/17/22 07:03 Pulse 80 10/17/22 07:03 Resp 18 10/17/22 07:03 BP 149/84 H 10/17/22 07:03 Pulse Ox 97 10/17/22 07:03 O2 Del Method Room Air 10/17/22 07:03 O2 Flow Rate 2 10/17/22 03:13 BMI result Body Mass Index 41.4 General: AO X 3, no acute distress Resp: CTA bilateral, no accessory muscles used CVS: S1,S2,RRR GI: soft, non tender, non distended Neuro: motor grossly intact, alert Psych: appropriate affect, appropriate insight Objective Data Active Medications Amlodipine Besylate (Amlodipine Besylate 10 Mg Tablet) 10 mg PO DAILY [facility]; Protocol Last Admin: 10/17/22 08:30 Dose: 10 mg Documented By: FLEX Diphenhydramine HCl (Diphenhydramine Hcl 50 Mg/Ml Vial) 25 mg IVPUSH Q6H PRN PRN Reason: nausea Ezetimibe (Ezetimibe 10 Mg Tablet) 10 mg PO DAILY [facility] Last Admin: 10/17/22 08:30 Dose: 10 mg Documented By: FLEX Escitalopram Oxalate (Escitalopram Oxalate 10 Mg Tablet) 10 mg PO DAILY [facility] Last Admin: 10/17/22 08:30 Dose: 10 mg Documented By: FLEX Fenofibrate (Fenofibrate 54 Mg Tablet) 54 mg PO DAILY [facility] Last Admin: 10/17/22 09:03 Dose: 54 mg Documented By: FLEX Gabapentin (Gabapentin 100 Mg Capsule) 100 mg PO TID [facility] Last Admin: 10/17/22 08:30 Dose: 100 mg Documented By: FLEX Glucose (Glucose Gel 15 Gm Gel..Gram.) 15 gm PO Q15M PRN; Protocol PRN Reason: per Hypoglycemia Standing Ord. Heparin Sodium (Porcine) (Heparin Sodium,Porcine 5,000 Unit/Ml Vial) 5,000 unit SUBCUT Q8H [facility] Last Admin: 10/17/22 05:06 Dose: Not Given Documented By: ILLIA Non-Admin Reason: Physician Held Med Dextrose (D10) 250 mls @ 750 mls/hr IV Q15M PRN; Protocol PRN Reason: per Hypoglycemia Standing Ord. Lactated Ringer's (Lr) 1,000 mls @ 80 mls/hr IVCONT .[id number] [facility] Last Admin: 10/17/22 09:23 Dose: 80 mls/hr Documented By: FLEX Piperacillin Sod/Tazobactam (Sod 3.375 gm/ Sodium Chloride) 50 mls @ 100 mls/hr IV Q6H [facility] Last Infusion: 10/17/22 09:06 Dose: 0 mls/hr Documented By: FLEX Insulin Human Lispro (Insulin Lispro 100 Unit/Ml 3 Ml Vial) 0 unit SUBCUT QIDACHS [facility]; Protocol Last Admin: 10/17/22 08:29 Dose: 2 unit Documented By: FLEX Levothyroxine Sodium (Levothyroxine Sodium 150 Mcg Tablet) 150 mcg PO DAILY@0630 [facility] Last Admin: 10/17/22 06:07 Dose: 150 mcg Documented By: LILIA Morphine Sulfate (Morphine Sulfate 2 Mg/Ml Cartridge) 4 mg IVPUSH Q4H PRN; Protocol PRN Reason: Pain, Severe (Pain Scale 7-10) Ondansetron HCl (Ondansetron Odt 4 Mg Tab.Rapdis) 4 mg TRANSLINGU Q6H PRN PRN Reason: nasuea Last Admin: 10/13/22 08:55 Dose: 4 mg Documented By: JOSETTE Ondansetron HCl (Ondansetron Hcl 4 Mg/2 Ml Vial) 4 mg IVPUSH Q8H PRN PRN Reason: Nausea and Vomiting Last Admin: 10/17/22 10:14 Dose: 4 mg Documented By: FLEX Oxycodone HCl (Oxycodone Hcl Immed Release 5 Mg Tablet) 5 mg PO Q4H PRN PRN Reason: Pain, Moderate (Pain Scale 4-6 Sodium Chloride (0.9 % Sodium Chloride Flush 3 Ml Syringe) 3 ml IVFLUSH QSHIFT [facility] Last Admin: 10/17/22 08:39 Dose: Not Given Documented By: FLEX Non-Admin Reason: IV Running Vitamin D (Cholecalciferol (Vitamin D3) 25 Mcg Tablet) 50 mcg PO DAILY [facility] Last Admin: 10/17/22 08:31 Dose: 50 mcg Documented By: FLEX Labs 10/17/22 06:30 10/17/22 06:30 Labs: Laboratory Results - last 24 hr 10/16/22 10/16/22 10/16/22 13:26 16:34 19:47 MCV MCH MCHC RDW Plt Count MPV Absolute Nucleated RBC Nucleated RBC % (auto) Anion Gap Estim Creat Clear Calc Estimated GFR POC Glucose 202 H 175 H 195 H Random Glucose Calcium Blood Type Antibody Screen Crossmatch 10/17/22 10/17/22 10/17/22 06:30 06:30 06:30 MCV 85.5 MCH 27.8 MCHC 32.5 RDW 15.8 Plt Count 170 MPV 10.2 Absolute Nucleated RBC 0.000 Nucleated RBC % (auto) 0.0 Anion Gap 12 Estim Creat Clear Calc 119.4 119.4 Estimated GFR > 60 > 60 POC Glucose Random Glucose 192 H Calcium 7.7 L Blood Type Antibody Screen Crossmatch 10/17/22 10/17/22 07:02 09:42 MCV MCH MCHC RDW Plt Count MPV Absolute Nucleated RBC Nucleated RBC % (auto) Anion Gap Estim Creat Clear Calc Estimated GFR POC Glucose 192 H Random Glucose Calcium Blood Type A Positive Antibody Screen NEGATIVE Crossmatch See Detail Assessment and Plan (1) Severe sepsis: Status: Acute (2) Acute cholecystitis: Status: Acute Plan 52M PMH DM, hypothyroid, hld, htn, morbid obesity, presented with nausea and vomiting. patient is a vague historian, reported multiple days of inability to tolerate po, nausea, vomiting, abdominal discomfort. severe sepsis 2/2 acute Cholecystitis pod 1 ccy negative cultures continue Zosyn acute on chronic anemia likely inflammatory from sepsis transfuse 1 unit prbc, monitor RLE wound surgery input appreciated, no evidence of infection He will eventually need a skin graft to the wound? wound care JJ resolved monitor bmp DM insulin pocs hypothryoid synthroid htn amlodipine hold lisinopril for jj hld hold zocor (non formulary), has lipitor allergy morbid obesity weight loss recommended dvt prophylaxis - hep sq full code reason for continued hospitalization:transfusing, monitoring for hgb stability Time Spent With Patient Time: Total time managing care of this patient today ____ minutes. Quality Stroke Does the patient have a stroke diagnosis?: No VTE Prior VTE?: No VTE Risk Level:: Medical - moderate - high VTE Device Contraindication: Treatment Not Indicated VTE Drug Contraindication: N/A - Med Ordered
[2022-10-17 11:42] LABS: Glucose, Whole Blood 200 mg/dL (60-115)
--- NOTE | 2022-10-17 11:53 | MHC.CM.PN ---
PLAN IS RETURN TO [facility] (10/18/22) FACILITY MADE AWARE IN [facility]PORT
--- NOTE | 2022-10-17 12:45 | HO.POSTANES ---
Post Anesthesia Evaluation Post Anesthesia Evaluation Vital Signs: Vital Signs Temp Pulse Resp BP Pulse Ox O2 Del Method O2 Flow Rate 10/17/22 11:41 96.9 F 81 18 146/81 H 10/17/22 11:54 96.9 F 81 18 146/81 H 94 Room Air 10/17/22 10:13 94 Room Air 10/17/22 11:22 97.4 F 83 18 142/78 H 10/17/22 10:55 97.4 F 81 18 142/78 H 94 Room Air 10/17/22 07:03 96.9 F 80 18 149/84 H 97 Room Air 10/17/22 03:13 97.4 F 76 16 155/75 H 99 Nasal Cannula 2 Anesthesia: General Endotracheal-GETA Mental Status: Awake Pain Control: Satisfactory Nausea/Vomiting: None Hydration: Adequate Anesthesia-Related Issues: No Anes. Related Issues
[2022-10-17] MEDS: Heparin Sodium,Porcine 5,000 UNIT/ML VIAL 5000 UNIT SUBCUT ×2 (15:27→20:37)
[2022-10-17 17:04] LABS: Glucose, Whole Blood 234 mg/dL (60-115)
[2022-10-17] MEDS: Metoclopramide HCl 10 MG/2 ML VIAL IVPUSH (20:37)
[2022-10-17 20:40] LABS: Glucose, Whole Blood 184 mg/dL (60-115)
[2022-10-18] MEDS: Piperacillin Sodium/Tazobactam 3.375 GM in 0.9 % Sodium Chloride 50 ML IV ×2 (01:23→08:02)
[2022-10-18 04:00] VITALS: BP 143/79; PULSE 80; RESP 16; TEMP 36.7; O2SAT 98
[2022-10-18] MEDS: Heparin Sodium,Porcine 5,000 UNIT/ML VIAL 5000 UNIT SUBCUT (05:49)
[2022-10-18] MEDS: Levothyroxine Sodium 150 MCG TABLET PO (05:49)
[2022-10-18 07:03] LABS: Hematocrit 26.6 % (42.0-52.0); Hemoglobin 8.7 g/dl (14.0-18.0); Mean Corpuscular HGB Conc 32.7 g/dl (31.0-36.0); Mean Corpuscular Hemoglobin 27.4 pg (27.0-33.0); Mean Corpuscular Volume 83.9 fL (80.0-98.0); Mean Platelet Volume 10.2 fL (9.4-12.4); NRBC Pct Auto 0.3 /100WBC (0.0-0.2); Platelet Count 237 X10*3/uL (160-400); Red Blood Count 3.17 X10*6/uL (4.60-5.80); Red Cell Distribution Width 15.6 % (11.0-16.0); White Blood Count 6.7 X10*3/uL (4.8-10.8)
[2022-10-18 07:23] LABS: Anion Gap 12 (12-20); Blood Urea Nitrogen < 3 mg/dL (9-16); Calcium 8.3 mg/dL (8.4-10.2); Carbon Dioxide 27 mmol/L (22-29); Chloride 104 mmol/L (96-108); Creatinine Clr Calc Pharmacy 123.9; Estimated Glomerular Filt Rate > 60; Glucose Fasting 187 mg/dL (60-99); Potassium 3.9 mmol/L (3.3-5.1); Sodium 139 mmol/L (135-145)
[2022-10-18 07:31] VITALS: BP 147/80; PULSE 78; RESP 16; TEMP 36.6; O2SAT 98
[2022-10-18 07:42] LABS: Glucose, Whole Blood 190 mg/dL (60-115)
[2022-10-18] MEDS: Insulin Lispro 100 UNIT/ML 3 ML VIAL SUBCUT ×2 (08:02→12:31)
[2022-10-18] MEDS: Docusate Sodium 100 MG CAPSULE PO (08:03)
[2022-10-18] MEDS: Escitalopram Oxalate 10 MG TABLET PO (08:03)
[2022-10-18] MEDS: Gabapentin 100 MG CAPSULE PO (08:03)
[2022-10-18] MEDS: amLODIPine Besylate 10 MG TABLET PO (08:03)
[2022-10-18] MEDS: polyethylene glycoL 3350 17 GM POWD.PACK PO (08:03)
[2022-10-18] MEDS: Cholecalciferol (Vitamin D3) 25 MCG TABLET 50 MCG PO (08:03)
[2022-10-18] MEDS: Fenofibrate 54 MG TABLET PO (08:03)
[2022-10-18] MEDS: Ezetimibe 10 MG TABLET PO (08:03)
[2022-10-18] MEDS: 0.9 % Sodium Chloride Flush 3 ML SYRINGE IVFLUSH (08:04)
--- NOTE | 2022-10-18 08:24 | P.PNGS_ITS ---
Subjective Subjective Date of Service: 10/18/22 Interval history: Feels overall well this morning. Denies abd pain. Tolerating solid diet without N/V. OOB to recliner this am. Reports BM on but nothing in I&Os. Physical Exam Vital Signs: Vital Signs: Last Vital Signs Temp 97.8 F 10/18/22 07:31 Pulse 78 10/18/22 07:31 Resp 16 10/18/22 07:31 BP 147/80 H 10/18/22 07:31 Pulse Ox 98 10/18/22 07:31 O2 Del Method Room Air 10/18/22 07:31 O2 Flow Rate 1 10/18/22 04:00 BMI result Body Mass Index 41.4 Const: General: comfortable, no acute distress and alert Orientation/consciousness: patient oriented x3 Resp: Effort & Inspection: normal respiratory effort GI: Other: abdomen round, BK drain with scant serosanguineous drainage Inspection: Yes incision (clean) Palpation (GI): Soft to palpation, nontender, no guarding and not rigid Skin: General skin exam: no rashes or lesions noted Neuro: General: patient oriented x3 and moves all extremities Objective Data Active Medications Amlodipine Besylate (Amlodipine Besylate 10 Mg Tablet) 10 mg PO DAILY [facility]; Protocol Last Admin: 10/18/22 08:03 Dose: 10 mg Documented By: GINO Diphenhydramine HCl (Diphenhydramine Hcl 50 Mg/Ml Vial) 25 mg IVPUSH Q6H PRN PRN Reason: nausea Docusate Sodium (Docusate Sodium 100 Mg Capsule) 100 mg PO BID [facility] Last Admin: 10/18/22 08:03 Dose: 100 mg Documented By: GINO Ezetimibe (Ezetimibe 10 Mg Tablet) 10 mg PO DAILY [facility] Last Admin: 10/18/22 08:03 Dose: 10 mg Documented By: GINO Escitalopram Oxalate (Escitalopram Oxalate 10 Mg Tablet) 10 mg PO DAILY [facility] Last Admin: 10/18/22 08:03 Dose: 10 mg Documented By: GINO Fenofibrate (Fenofibrate 54 Mg Tablet) 54 mg PO DAILY [facility] Last Admin: 10/18/22 08:03 Dose: 54 mg Documented By: GINO Gabapentin (Gabapentin 100 Mg Capsule) 100 mg PO TID [facility] Last Admin: 10/18/22 08:03 Dose: 100 mg Documented By: GINO Glucose (Glucose Gel 15 Gm Gel..Gram.) 15 gm PO Q15M PRN; Protocol PRN Reason: per Hypoglycemia Standing Ord. Heparin Sodium (Porcine) (Heparin Sodium,Porcine 5,000 Unit/Ml Vial) 5,000 unit SUBCUT Q8H [facility] Last Admin: 10/18/22 05:49 Dose: 5,000 unit Documented By: MELINDA Dextrose (D10) 250 mls @ 750 mls/hr IV Q15M PRN; Protocol PRN Reason: per Hypoglycemia Standing Ord. Piperacillin Sod/Tazobactam (Sod 3.375 gm/ Sodium Chloride) 50 mls @ 100 mls/hr IV Q6H [facility] Last Admin: 10/18/22 08:02 Dose: 100 mls/hr Documented By: GINO Insulin Human Lispro (Insulin Lispro 100 Unit/Ml 3 Ml Vial) 0 unit SUBCUT QIDACHS [facility]; Protocol Last Admin: 10/18/22 08:02 Dose: 2 unit Documented By: GINO Levothyroxine Sodium (Levothyroxine Sodium 150 Mcg Tablet) 150 mcg PO DAILY@0630 [facility] Last Admin: 10/18/22 05:49 Dose: 150 mcg Documented By: MELINDA Morphine Sulfate (Morphine Sulfate 2 Mg/Ml Cartridge) 4 mg IVPUSH Q4H PRN; Protocol PRN Reason: Pain, Severe (Pain Scale 7-10) Ondansetron HCl (Ondansetron Odt 4 Mg Tab.Rapdis) 4 mg TRANSLINGU Q6H PRN PRN Reason: nasuea Last Admin: 10/13/22 08:55 Dose: 4 mg Documented By: JOSETTE Ondansetron HCl (Ondansetron Hcl 4 Mg/2 Ml Vial) 4 mg IVPUSH Q8H PRN PRN Reason: Nausea and Vomiting Last Admin: 10/17/22 18:42 Dose: 4 mg Documented By: FLEX Oxycodone HCl (Oxycodone Hcl Immed Release 5 Mg Tablet) 5 mg PO Q4H PRN PRN Reason: Pain, Moderate (Pain Scale 4-6 Polyethylene Glycol (Polyethylene Glycol 3350 17 Gm Powd.Pack) 17 gm PO DAILY [facility] Last Admin: 10/18/22 08:03 Dose: 17 gm Documented By: GINO Sodium Chloride (0.9 % Sodium Chloride Flush 3 Ml Syringe) 3 ml IVFLUSH QSHIFT [facility] Last Admin: 10/18/22 08:04 Dose: 3 ml Documented By: GINO Vitamin D (Cholecalciferol (Vitamin D3) 25 Mcg Tablet) 50 mcg PO DAILY [facility] Last Admin: 10/18/22 08:03 Dose: 50 mcg Documented By: GINO Labs 10/18/22 06:11 10/18/22 06:11 Labs: Laboratory Results - last 24 hr 10/17/22 10/17/22 10/17/22 09:42 11:25 16:54 MCV MCH MCHC RDW Plt Count MPV Absolute Nucleated RBC Nucleated RBC % (auto) Anion Gap Estim Creat Clear Calc Estimated GFR POC Glucose 200 H 234 H Fasting Glucose Calcium Blood Type A Positive Antibody Screen NEGATIVE Crossmatch See Detail 10/17/22 10/18/22 10/18/22 20:35 06:11 06:11 MCV 83.9 MCH 27.4 MCHC 32.7 RDW 15.6 Plt Count 237 D MPV 10.2 Absolute Nucleated RBC 0.020 H Nucleated RBC % (auto) 0.3 H Anion Gap 12 Estim Creat Clear Calc 123.9 Estimated GFR > 60 POC Glucose 184 H Fasting Glucose 187 H Calcium 8.3 L D Blood Type Antibody Screen Crossmatch 10/18/22 07:36 MCV MCH MCHC RDW Plt Count MPV Absolute Nucleated RBC Nucleated RBC % (auto) Anion Gap Estim Creat Clear Calc Estimated GFR POC Glucose 190 H Fasting Glucose Calcium Blood Type Antibody Screen Crossmatch Microbiology Microbiology Results: Microbiology 10/12/22 19:13 Blood Culture - Final Blood - Venous No growth after 5 days. 10/12/22 19:13 Blood Culture - Final Blood - Venous No growth after 5 days. Procedures Date of Service Date of Service: 10/18/22 Progress Note: A&P Assessment and plan (1) S/P laparoscopic cholecystectomy: Status: Acute (2) Acute cholecystitis: Status: Acute (3) Status post transmetatarsal amputation of right foot: Status: Acute Plan 52 year old male admitted with abd pain, N/V found to have acute cholecystitis. POD #2 s/p lap CCY. Found to have acute gangrenous cholecystitis, cholelithiasis, gallbladder perforation. Doing well this morning with adequate pain control and tolerating solid diet. VSS. Abd remains benign- soft, nontender with clean incisions. BK drain output serosanguineous, removed. H/H improved this am. Overall he is stable and ready for discharge from surgical standpoint. Can f/u in office with Dr. Dempsey for post op appt in 1 week and planning for skin graft to right transmet amp site down the line. Time Spent With Patient Time: Total time managing care of this patient today ____ minutes. Quality Stroke Does the patient have a stroke diagnosis?: No VTE Prior VTE?: No VTE Risk Level:: Medical - moderate - high VTE Device Contraindication: Treatment Not Indicated VTE Drug Contraindication: N/A - Med Ordered
--- NOTE | 2022-10-18 09:54 | PM.DS ---
DS: Providers Provider Date of Service: 10/18/22 Date of admission: 10/13/22 00:20 Primary care physician: Adwoa Fan MD Consults: 10/13/22 00:04 Consult to General Surgery Routine Consulting Provider: [facility] [place] [facility] [place] Reason for consultation: DFU, recent tma Consult to Infectious Diseases Routine Consulting Provider: [facility] [place] Infectious Disease Reason for consultation: DFU DS: Diagnosis Discharge Diagnosis (1) S/P laparoscopic cholecystectomy: Status: Acute (2) Acute cholecystitis: Status: Acute (3) Status post transmetatarsal amputation of right foot: Status: Acute DS: Summary Hospital Course Hospital Course: from initial hpi: 52M PMH DM, hypothyroid, hld, htn, morbid obesity, presented with nausea and vomiting. patient is a vague historian, reports multiple days of inability to tolerate po, nausea, vomiting, abdominal discomfort. patient is at SNF for antibiotics for DFU/OM complicated by MRSA bacteremia, right TMA 09/12/22. was discharged 09/19/22, seen by surgery 10/05/22 and site looked healing well. now sent to ED for concern of sepsis due to above symptoms. in ED found to have leukocytosis, tachycardia, JJ. hospital course: Patient was initially admitted for severe sepsis acute kidney injury. Source was discovered to be acute cholecystitis. Patient was treated with vancomycin and Zosyn. Was seen by surgery performed cholecystectomy. Cultures were negative. Patient's symptoms resolved. Renal function returned to normal. Course was complicated by acute on chronic anemia likely due to inflammation from sepsis. He was transfused 1 unit PRBC and hemoglobin responded appropriately. For his right lower extremity wound he was seen by surgery, there was no evidence of active infection. Recommended follow-up for possible skin graft and continue wound care. For diabetes continue insulin. For hypothyroidism he was continue on Synthroid. For hyperlipidemia he will restart Zocor on discharge. For morbid obesity weight loss recommended. Patient is feeling better will be discharged back to [facility] facility. Seen by infectious disease, Antibiotics discontinued on discharge. Time Spent with Patient Time attestation: Total time managing care of this patient today ____ minutes. Discharge coordination time: Greater than 30 minutes Quality: Safe Use of Opioids Does Pt have an Active Cancer Diagnosis on the Problem List?: No Quality: Stroke Does the patient have a stroke diagnosis?: No Physical Exam Vital Signs: Vital Signs: Last Vital Signs Temp 97.8 F 10/18/22 07:31 Pulse 78 10/18/22 07:31 Resp 16 10/18/22 07:31 BP 147/80 H 10/18/22 07:31 Pulse Ox 98 10/18/22 07:31 O2 Del Method Room Air 10/18/22 07:31 O2 Flow Rate 1 10/18/22 04:00 BMI result Body Mass Index 41.4 Const: General: comfortable, no acute distress and alert Orientation/consciousness: patient oriented x3 Resp: Effort & Inspection: normal respiratory effort GI: Other: abdomen round, BK drain with scant serosanguineous drainage Inspection: Yes incision (clean) Palpation (GI): Soft to palpation, nontender, no guarding and not rigid Skin: General skin exam: no rashes or lesions noted Neuro: General: patient oriented x3 and moves all extremities DS: Data Data Completed and Pending Completed studies during hospitalization [Text1]: Pending at discharge 10/16/22 11:58 Surgical [PTH] Routine Procedures Compression of Right Foot using Pressure Dressing (09/03/22) Detachment at Right Foot, Partial 1st Ray, Open Approach (09/03/22) Detachment at Right Foot, Partial 2nd Ray, Open Approach (09/03/22) Detachment at Right Foot, Partial 3rd Ray, Open Approach (09/03/22) Detachment at Right Foot, Partial 4th Ray, Open Approach (09/03/22) Detachment at Right Foot, Partial 5th Ray, Open Approach (09/03/22) Drainage of Right Foot Skin, External Approach (09/03/22) Excision of Right Foot Skin, External Approach (09/03/22) Insertion of Infusion Device into Superior Vena Cava, Percutaneous Approach (09/03/22) Ultrasonography of Superior Vena Cava, Guidance (09/03/22) Labs on day of discharge: Laboratory Results - last 24 hr 10/17/22 10/17/22 10/17/22 09:42 11:25 16:54 WBC RBC Hgb Hct MCV MCH MCHC RDW Plt Count MPV Absolute Nucleated RBC Nucleated RBC % (auto) Sodium Potassium Chloride Carbon Dioxide Anion Gap BUN Creatinine Estim Creat Clear Calc Estimated GFR POC Glucose 200 H 234 H Fasting Glucose Calcium Blood Type A Positive Antibody Screen NEGATIVE Crossmatch See Detail 10/17/22 10/18/22 10/18/22 20:35 06:11 06:11 WBC 6.7 RBC 3.17 L D Hgb 8.7 L D Hct 26.6 L D MCV 83.9 MCH 27.4 MCHC 32.7 RDW 15.6 Plt Count 237 D MPV 10.2 Absolute Nucleated RBC 0.020 H Nucleated RBC % (auto) 0.3 H Sodium 139 Potassium 3.9 Chloride 104 Carbon Dioxide 27 Anion Gap 12 BUN < 3 L Creatinine 0.80 Estim Creat Clear Calc 123.9 Estimated GFR > 60 POC Glucose 184 H Fasting Glucose 187 H Calcium 8.3 L D Blood Type Antibody Screen Crossmatch 10/18/22 07:36 WBC RBC Hgb Hct MCV MCH MCHC RDW Plt Count MPV Absolute Nucleated RBC Nucleated RBC % (auto) Sodium Potassium Chloride Carbon Dioxide Anion Gap BUN Creatinine Estim Creat Clear Calc Estimated GFR POC Glucose 190 H Fasting Glucose Calcium Blood Type Antibody Screen Crossmatch Discharge Plan Discharge Anticipated Discharge Date/Time: 10/18/22 09:49 Patient Disposition: Xfer [facility] Discharge Diagnosis: acute cholecystitis Referrals: Bao Dempsey MD [Physician] - 1 Week Adwoa Mcadams MD [Primary Care Provider] - 1 Week Discharge Medications: Continued (DME) FreeStyle Precision Gama Strips Strip See Rx Instructions .ROUTE .MEDSUPPLY Qty: 50 11RF Rx Instructions: As directed once daily (DME) FreeStyle Leonel 2 Sensor Kit See Rx Instructions .ROUTE .MEDSUPPLY Qty: 2 11RF Rx Instructions: As directed every 2 weeks (DME) right knee brace See Rx Instructions .Route .MEDSUPPLY Qty: 1 0RF Rx Instructions: As directed (DME) wrist splint bilateral See Rx Instructions .Route .MEDSUPPLY Qty: 2 0RF Rx Instructions: As directed (DME) high shower chair See Rx Instructions .Route .MEDSUPPLY Qty: 1 0RF Rx Instructions: As directed (DME) raised toilet seat See Rx Instructions .Route .MEDSUPPLY Qty: 1 0RF Rx Instructions: As directed insulin aspart U-100 [Novolog FlexPen U-100 Insulin] 100 unit/mL (3 mL) insulin pen See Protocol subcut QIDACHS Protocol: Insulin Correction Scale Less than or equal to 110 ---- Give (units): 0 111 to 150 Give (units): 0 151 to 200 Give (units): 0 201 to 250 Give (units): 2 251 to 300 Give (units): 4 301 to 350 Give (units): 6 Greater than 350 Give (units): 8 Call MD if Blood Glucose > : 350 metformin 500 mg tablet 1,000 mg PO BIDWM ondansetron HCl 4 mg tablet 4 mg PO 3XD PRN (Reason: Nausea) simvastatin 40 mg tablet 40 mg PO BEDTIME amlodipine 10 mg tablet 10 mg PO DAILY lisinopril 10 mg tablet 10 mg PO DAILY levothyroxine 150 mcg tablet 150 mcg PO DAILY gabapentin 100 mg capsule 100 mg PO TID escitalopram oxalate 10 mg tablet 10 mg PO DAILY ezetimibe 10 mg tablet 10 mg PO DAILY fenofibrate 54 mg tablet 54 mg PO DAILY insulin degludec [Tresiba FlexTouch U-200] 200 unit/mL (3 mL) insulin pen 30 unit subcut DAILY Trulicity 1.5 mg/0.5 mL pen injector 1.5 mg subcut FR Rx Instructions: every Saturday cholecalciferol (vitamin D3) 50 mcg (2,000 unit) capsule 50 mcg PO DAILY acetaminophen 325 mg Tablet 650 mg PO Q4H PRN (Reason: Fever Or Pain) magnesium hydroxide [Milk of Magnesia] 400 mg/5 mL Suspension 30 ml PO DAILY PRN (Reason: Constipation) bisacodyl 10 mg Suppository 10 mg ND DAILY PRN (Reason: Constipation) Fleet Enema 19-7 gram/118 mL Enema 118 ml ND DAILY PRN (Reason: Constipation) Saccharomyces boulardii [Probiotic (S.boulardii)] 250 mg Capsule 250 mg PO BID Rx Instructions: UNTIL 11/02/22 Discontinued linezolid 600 mg Tablet 600 mg PO Q12H 37 Days Qty: 74 0RF Rx Instructions: ending Oct 26 2022 vancomycin in 0.9 % sodium chl 1 gram/200 mL Piggyback 1 g IV Q24H Rx Instructions: UNTIL 10/26/22 23:59 Discharge Orders: Discharge Order (Routine); Ordered 10/18/22 Ordered By: Taj Cervantes Diet: Advance to usual diet Activity on Discharge: As tolerated Stand Alone Forms: Patient Portal Discharge page Activity Restrictions/Additional Instructions: If the incision area is tender, you may apply an ice pack for short intervals (No more than 20 minutes on, followed by at least 20 minutes off). Do not apply heat. Do not use creams, lotions, or topical antibiotics. These can cause infection or allergic reaction. You have steri strips (small white cloth strips) covering your incision- these will fall off ~1 week. No heavy lifting (>10lbs) or strenuous activity! Follow up in office with Dr. Dempsey in 1 week. ([phone]) Call Your Doctor If: -Your temperature exceeds 101.5? F -You experience excessive pain or swelling -You have an unexpected reaction to medication -You have excessive bleeding -You experience continued vomiting/nausea -Your incision begins to separate -Your incision shows signs of infection such as increased redness, swelling, excessive pain, drainage (light blood or clear fluid is normal) or heat Care Plan Goals: recovery Health Concerns: cholecystits Plan of Treatment: follow up surgery Assessment: see above
[2022-10-18 10:00] VITALS: O2SAT 98
[2022-10-18 11:19] LABS: Glucose, Whole Blood 269 mg/dL (60-115)
--- NOTE | 2022-10-18 11:23 | MHC.CM.PN ---
Addendum entered by China Mays 10/18/22 14:07: PT WILL DC WITH PICC LINE CM SPOKE TO [facility] WHO STATES IF THERE IS AN ORDER FOR PICC REMOVAL IN THE DCS THEY CAN REMOVE IT THERE MD WILL ADD TO DCS Original Note: PT WILL DC BACK TO [facility] TO CONTINUE STR TODAY AT 1400 HOURS VIA PANFILO CROCKER PT AND RN AWARE
[2022-10-18 12:00] VITALS: BP 140/70; PULSE 80; RESP 16; TEMP 36.1; O2SAT 98
--- NOTE | 2022-10-18 15:17 | PC.NURSE ---
MD Cervantes contacted VIA tiger text at 1400, notified Pt still has PICC line intact, MD Cervantes stated Pt can leave to [facility] with [facility] intact, can remove at facility. media traffic manager [place] Contacted [facility]ia[facility], who confirmed Pt can have PICC removed at [facility]. EMS personal given report and updated on pts disposition and informed about PICC.
== END 2022-10-18 14:22 | disposition skilled nursing facility (03) | DRG 854 ==
LOC: HO.ED 10-13 00:23 → HO.EDOVER 10-13 00:48 → HO.S3 10-13 01:02
PROVIDERS: Internal Medicine; Student in an Organized Health Care Education/Training Program; Surgery; Admitting Provider Internal Medicine; Emergency Provider Internal Medicine; PCP Internal Medicine; Visit Provider Internal Medicine
PROC: 0FT44ZZ Resection of Gallbladder, Percutaneous Endoscopic Approach (ICD-10-PCS; CPT 47562; principal; 2022-10-16 10:00)
DX: A41.9 Sepsis, unspecified organism (principal); K80.00 Calculus of gallbladder with acute cholecystitis without obstruction; N17.9 Acute kidney failure, unspecified; Z68.41 Body mass index [BMI] 40.0-44.9, adult; K82.A1 Gangrene of gallbladder in cholecystitis; E66.01 Morbid (severe) obesity due to excess calories; D50.9 Iron deficiency anemia, unspecified; E06.3 Autoimmune thyroiditis; E86.0 Dehydration; E11.9 Type 2 diabetes mellitus without complications; R65.20 Severe sepsis without septic shock; E78.5 Hyperlipidemia, unspecified; Z89.431 Acquired absence of right foot; Z86.14 Personal history of Methicillin resistant Staphylococcus aureus infection; Z88.8 Allergy status to other drugs, medicaments and biological substances; Z79.4 Long term (current) use of insulin; Z79.890 Hormone replacement therapy; Z79.899 Other long term (current) drug therapy
CPT/HCPCS: 36415; 74176; 76705; 78226; 80048; 80053; 80076; 80202; 82565; 82947; 83540; 83605; 83690; 85025; 85027; 86850; 86900; 86901; 86923; 87040; 87493; 88304; 99285; A9537; J0131; J1643; J1756; J1885; J2370; J2405; J2543; J2765; J3371; P9016

== ENCOUNTER → 2022-11-01 09:22 | Outpatient (BNVA) | payer OTHER, SELFPAY | PROVIDERS: PCP Family Medicine; Visit Provider Surgery | DX: Z90.49 Acquired absence of other specified parts of digestive tract (principal); Z89.431 Acquired absence of right foot | CPT/HCPCS: 99212 ==

== ENCOUNTER → 2023-06-21 09:36 | Outpatient (BNVA) | payer MEDICARE, MEDICAID, SELFPAY | PROVIDERS: PCP Family Medicine; Visit Provider Surgery | DX: Z47.81 Encounter for orthopedic aftercare following surgical amputation (principal); Z89.431 Acquired absence of right foot | CPT/HCPCS: 99212 ==

== ENCOUNTER 2023-06-21 09:37 | Outpatient (AMB) | payer MEDICARE, MEDICAID, SELFPAY ==
--- NOTE | 2023-06-21 09:38 | MHC.OFFVIS ---
Intake Vital Signs 06/21/23 09:54 Height 5 ft 5 in BP 130/65 Blood Pressure Location Lt brachial Position Sitting Pulse 93 Comment Unable to obtain weight pt in wheelchair Intake Visit Reasons: right foot, poss skin graft Intake Note: Patient is seen in office for evaluation and treatment of a right foot wound, possible skin graft. Pt c/o: reports no complaints at this time. Pediatric Immunologist Required: Yes Pediatric Immunologist Language: Food Scientist Name: Maia Information Interpreted: non-clinical & clinical Accompanied by: Self / Same As Patient Allergies atorvastatin [ATORVASTATIN] Allergy (Unknown, Verified 06/21/23 09:55) skin eruption Medication List - Last Reconciled 06/21/23 by Bao Dempsey MD acetaminophen 650 mg PO Q4H PRN amlodipine 10 mg PO DAILY bisacodyl 10 mg NC DAILY PRN blood sugar diagnostic (FreeStyle Precision Gama Strips) As directed once daily cholecalciferol (vitamin D3) 50 mcg PO DAILY dulaglutide (Trulicity) 1.5 mg subcut FR escitalopram oxalate 10 mg PO DAILY ezetimibe 10 mg PO DAILY fenofibrate 54 mg PO DAILY flash glucose sensor (FreeStyle Leonel 2 Sensor kit) As directed every 2 weeks gabapentin 100 mg PO TID [high shower chair As directed] insulin aspart U-100 (Novolog FlexPen U-100 Insulin aspart) See Protocol sliding scale doses subcut QIDACHS insulin degludec (Tresiba FlexTouch U-200 insulin) 30 units subcut DAILY levothyroxine 150 mcg PO DAILY lisinopril 10 mg PO DAILY magnesium hydroxide (Milk of Magnesia) 30 mL PO DAILY PRN metformin 1,000 mg PO BIDWM ondansetron HCl 4 mg PO 3XD PRN [raised toilet seat As directed] [right knee brace As directed] Saccharomyces boulardii (Probiotic (S.boulardii)) 250 mg PO BID simvastatin 40 mg PO BEDTIME sodium phosphates 19-7 gram/118 mL (Fleet Enema) 118 mL NC DAILY PRN [wrist splint bilateral As directed] HPI HPI Comments History of Present Illness Details 52-year-old male patient with 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 Wounds were left open due to skin necrosis. Initially a wound VAC was placed however this was stopped due to abscess formation. Returns today for wound check. He also underwent laparoscopic cholecystectomy for acute cholecystitis. He returns today to discuss possible skin grafting to the right foot wound. He denies any significant pain from the wound. He is currently in a senior living facility. [facility] Medical History Nausea and vomiting Bacteremia Bilateral hand pain Right knee pain Hypovitaminosis D Right foot pain Left foot pain Infection of penis Hyponatremia Hyperkalemia Diabetic ketoacidosis Acute kidney injury Autoimmune thyroiditis Obesity due to excess calories Type 2 diabetes mellitus with hyperglycemia, with long-term current use of insulin CHF (congestive heart failure) Cognitive developmental delay Proteinuria Type 2 diabetes mellitus with other diabetic kidney complication Essential hypertension Hyperlipidemia LDL goal <100 Edema Hyperlipidemia Cataracts, both eyes HTN (hypertension) Hypothyroid Diabetes Surgical History Hx laparoscopic cholecystectomy (10/16/22) 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) Hx of removal of cyst Hx of cataract surgery Family History Father HTN (hypertension) Mother Diabetes mellitus Maternal Grandmother Diabetes mellitus Social History Household Members: Unknown / Unable to assess Household Members Other:: SNF Housing: Unknown / Unable to assess Housing Other:: residential, [facility] Unable to assess alcohol history related to: Unknown Alcohol intake: never Patient Tobacco Use Status: Never used Tobacco e-Cigarette/Vaping Use: Never Used Second Hand Smoke Exposure: No Substance Use Type: Caffiene Advance Directives Date on File: 09/10/22 service: No Current occupational status: disabled Cognitive needs: Yes Hearing needs: No Vision needs: No Review of Systems Const All systems reviewed & are unremarkable except as noted in HPI and below Physical Exam Vital Signs: Last Vital Signs Pulse 93 06/21/23 09:54 BP 130/65 06/21/23 09:54 Const General: no acute distress and well developed Nutritional Appearance: well nourished Orientation/consciousness: patient oriented x3 HEENT Head: Yes normocephalic and Yes atraumatic Resp Effort & Inspection: normal respiratory effort, no audible wheezes, no cough and no respiratory distress GI Inspection: Yes normal to inspection Palpation (GI): Soft to palpation, nontender, no guarding and not rigid Neuro General: patient oriented x3 Extrem Other: Right transmetatarsal amputation wound is granulating completely. There is evidence of new epithelialization from the margins. Patient is ready for skin grafting with no exposed bone appreciated. Ankle/foot/toe images: 1. Transmetatarsal amputation right foot Assessment & Plan Assessment & Plan (1) Status post transmetatarsal amputation of right foot: Code(s): Z89.431 - Acquired absence of right foot Plan: Excellent granulation tissue noted at the wound base following transmetatarsal amputation. I recommended applying a split-thickness skin graft from the right hip to the right transmetatarsal amputation site. After discussion of the procedure, risks, and alternatives, he consents to the surgery which would be performed as a short-stay admit under general anesthesia. Coding Level of Care Code Est Pt Level 4 (55025) Diagnoses Status post transmetatarsal amputation of right foot Z89.431
[2023-06-21 09:54] VITALS: BP 130/65; PULSE 93
== END 2023-06-21 10:06 | disposition home or self-care (01) ==
PROVIDERS: PCP Family Medicine; Visit Provider Surgery
DX: Z89.431 Acquired absence of right foot (principal)
CPT/HCPCS: 99214

== ENCOUNTER → 2023-07-10 08:55 | Outpatient (BNV) | payer MEDICARE, MEDICAID, SELFPAY | PROVIDERS: Admitting Provider Surgery; PCP Family Medicine; Visit Provider Internal Medicine | DX: I10 Essential (primary) hypertension (principal) | CPT/HCPCS: 93010 ==

== ENCOUNTER 2023-07-10 10:01 | Inpatient (IN) | payer MEDICARE, MEDICAID, SELFPAY ==
--- NOTE | 2023-07-08 11:57 | P.CONAN_ITS ---
HPI - Anesthesia Eval Consult details Narrative: 52yo M for Right Skin Graft, Split Thickness,From right thigh to Right Foot s/p lap david 10/2022 with [facility] Anesthesia Pre-Procedure Meds Is the patient on any of the following meds?: Dulaglutide (Trulicity) If Yes to any meds - educate patient: Pt education - increased risk of aspiration and Pt education - possibility of cancelled proc at provider's discr etion PMFSH Active Problems Active Problems: All Active Problems (Updated 10/16/22 @ 15:11 by Kristen Fraser MD) S/P laparoscopic cholecystectomy (Acute) Severe sepsis (Acute) Acute cholecystitis (Acute) Nausea and vomiting (Acute) Post-operative infection (Acute) Status post transmetatarsal amputation of right foot (Acute) Diabetic foot ulcer (Acute) Diabetic foot ulcer (Acute) Physical exam (Acute) Microalbuminuria (Acute) Bilateral hand pain (Acute) Right knee pain (Acute) Hypovitaminosis D (Acute) Right foot pain (Acute) Left foot pain (Acute) Hypoglycemia (Acute) Knee pain, chronic (Acute) Type 2 diabetes mellitus with hyperosmolar hyperglycemic state (HHS) (Acute) Autoimmune thyroiditis (Acute) Obesity due to excess calories (Acute) Type 2 diabetes mellitus with hyperglycemia, with long-term current use of insulin (Acute) Proteinuria (Acute) Essential hypertension (Acute) Hyperlipidemia LDL goal <100 (Acute) Past Medical History Medical History Nausea and vomiting Bacteremia Bilateral hand pain Right knee pain Hypovitaminosis D Right foot pain Left foot pain Infection of penis Hyponatremia Hyperkalemia Diabetic ketoacidosis Acute kidney injury Autoimmune thyroiditis Obesity due to excess calories Type 2 diabetes mellitus with hyperglycemia, with long-term current use of insulin CHF (congestive heart failure) Cognitive developmental delay Proteinuria Type 2 diabetes mellitus with other diabetic kidney complication Essential hypertension Hyperlipidemia LDL goal <100 Edema Hyperlipidemia Cataracts, both eyes HTN (hypertension) Hypothyroid Diabetes Family History Family History Father HTN (hypertension) Mother Diabetes mellitus Maternal Grandmother Diabetes mellitus Family history of problems with anesthesia: No Surgical History Surgical History Hx laparoscopic cholecystectomy (10/16/22) 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) Hx of removal of cyst Hx of cataract surgery History of Problems with Anesthesia: No Social History Social History Household Members: None Household Members Other:: SNF Housing: Other Housing Other:: SNF Do you presently have visiting nurse or other home services: Yes Unable to assess alcohol history related to: Unknown Alcohol intake: never Patient Tobacco Use Status: Never used Tobacco e-Cigarette/Vaping Use: Never Used Second Hand Smoke Exposure: No Substance Use Type: Caffiene Advance Directives Date on File: 09/10/22 service: No Current occupational status: disabled Cognitive needs: Yes Hearing needs: No Vision needs: No Meds Allergies Allergy/AdvReac Type Severity Reaction Status Date / Time atorvastatin [ATORVASTATIN] Allergy Unknown skin Verified 07/10/23 09:51 eruption Home Medications Medication Instructions Recorded Confirmed Last Taken Type metformin 500 mg tablet 1,000 mg PO BID 06/20/22 07/10/23 06/20/22 History amlodipine 10 mg tablet 10 mg PO DAILY 10/12/22 07/10/23 07/10/23 History cholecalciferol (vitamin D3) 50 50 mcg PO DAILY 10/12/22 07/10/23 Unknown History mcg (2,000 unit) capsule escitalopram oxalate 10 mg tablet 10 mg PO DAILY 10/12/22 07/10/23 Unknown History ezetimibe 10 mg tablet 10 mg PO DAILY 10/12/22 07/10/23 Unknown History fenofibrate 54 mg tablet 54 mg PO DAILY 10/12/22 07/10/23 Unknown History gabapentin 100 mg capsule 100 mg PO TID 10/12/22 07/10/23 Unknown History insulin degludec 200 unit/mL (3 20 unit subcut QAM 10/12/22 07/10/23 Unknown History mL) subcutaneous pen (Tresiba FlexTouch U-200 insulin) levothyroxine 150 mcg tablet 150 mcg PO DAILY 10/12/22 07/10/23 07/10/23 History lisinopril 10 mg tablet 10 mg PO DAILY 10/12/22 07/10/23 Unknown History ondansetron HCl 4 mg tablet 4 mg PO Q8H PRN Nausea 10/12/22 07/10/23 Unknown History simvastatin 40 mg tablet 40 mg PO BEDTIME 10/12/22 07/10/23 Unknown History Saccharomyces boulardii 250 mg 250 mg PO BID 10/13/22 07/10/23 Unknown History capsule (Probiotic (S.boulardii)) acetaminophen 325 mg tablet 650 mg PO Q4H PRN Fever Or Pain 10/13/22 07/10/23 Unknown History bisacodyl 10 mg rectal suppository 10 mg NV DAILY PRN Constipation 10/13/22 07/10/23 Unknown History magnesium hydroxide 400 mg/5 mL 30 ml PO DAILY PRN Constipation 10/13/22 07/10/23 Unknown History oral suspension (Milk of Magnesia) sodium phosphates 19 gram-7 118 ml NV DAILY PRN Constipation 10/13/22 07/10/23 Unknown History gram/118 mL enema (Fleet Enema) ammonium lactate 12 % topical cream 1 appl topical DAILY 07/10/23 07/10/23 Unknown History collagenase clostridium histo. 250 1 appl topical Q2D 07/10/23 07/10/23 Unknown History unit/gram topical ointment (Santyl) dulaglutide 3 mg/0.5 mL 3 mg subcut TU 07/10/23 07/10/23 Unknown History subcutaneous pen injector (Trulicity) insulin lispro 100 unit/mL See Protocol subcut QIDACHS 07/10/23 07/10/23 Unknown History subcutaneous solution Exam Narrative Narrative: ECHO 08/2022 Conclusions: - Normal left ventricular size, thickness, and systolic function. The visually estimated ejection fraction is between 60-65%. - Normal right ventricular cavity size and systolic function. - There is mild dilatation of the ascending aorta measuring 3.60 cm. Assessment and Plan Assessment Anesthesia Assessment: Chart Reviewed Final Anesthetic Review Family History of Problems with Anesthesia: No History of Problems with Anesthesia: No
[2023-07-10] VITALS (17 sets, daily range): BP systolic 132–158; BP diastolic 60–93; PULSE 73–99; RESP 12–18; TEMP 36.1–36.8; O2SAT 96–100; BMI 33.4; BMI 37.8
--- NOTE | 2023-07-10 08:55 | ECG_ITS ---
Test Reason : htn ckd Blood Pressure : / mmHG Vent. Rate : 083 BPM Atrial Rate : 083 BPM P-R Int : 174 ms QRS Dur : 098 ms QT Int : 360 ms P-R-T Axes : 044 -13 019 degrees QTc Int : 423 ms Normal sinus rhythm Normal ECG When compared with ECG of 23-MAY-2021 17:53, No significant change was found Referred By: Helen Szymanski Electronically Signed By:MARCUS MARCELINO
[2023-07-10 09:31] LABS: Hematocrit 29.1 % (42.0-52.0); Hemoglobin 9.9 g/dl (14.0-18.0); Mean Corpuscular Hemoglobin 28.3 pg (27.0-33.0); Mean Corpuscular Volume 83.1 fL (80.0-98.0); Platelet Count 195 X10*3/uL (160-400); Red Cell Distribution Width 13.2 % (11.0-16.0); White Blood Count 8.1 X10*3/uL (4.8-10.8)
[2023-07-10 09:44] LABS: Anion Gap 12 (12-20); Blood Urea Nitrogen 35 mg/dL (9-16); Calcium 9.3 mg/dL (8.4-10.2); Carbon Dioxide 22 mmol/L (22-29); Chloride 107 mmol/L (96-108); Estimated Glomerular Filt Rate 38; Glucose Fasting 220 mg/dL (60-99); Potassium 4.9 mmol/L (3.3-5.1); Sodium 136 mmol/L (135-145)
--- NOTE | 2023-07-10 09:46 | P.CONAN_ITS ---
[facility] Active Problems Active Problems: All Active Problems (Updated 10/16/22 @ 15:11 by Kristen Fraser MD) S/P laparoscopic cholecystectomy (Acute) Severe sepsis (Acute) Acute cholecystitis (Acute) Nausea and vomiting (Acute) Post-operative infection (Acute) Status post transmetatarsal amputation of right foot (Acute) Diabetic foot ulcer (Acute) Diabetic foot ulcer (Acute) Physical exam (Acute) Microalbuminuria (Acute) Bilateral hand pain (Acute) Right knee pain (Acute) Hypovitaminosis D (Acute) Right foot pain (Acute) Left foot pain (Acute) Hypoglycemia (Acute) Knee pain, chronic (Acute) Type 2 diabetes mellitus with hyperosmolar hyperglycemic state (HHS) (Acute) Autoimmune thyroiditis (Acute) Obesity due to excess calories (Acute) Type 2 diabetes mellitus with hyperglycemia, with long-term current use of insulin (Acute) Proteinuria (Acute) Essential hypertension (Acute) Hyperlipidemia LDL goal <100 (Acute) Past Medical History Medical History Nausea and vomiting Bacteremia Bilateral hand pain Right knee pain Hypovitaminosis D Right foot pain Left foot pain Infection of penis Hyponatremia Hyperkalemia Diabetic ketoacidosis Acute kidney injury Autoimmune thyroiditis Obesity due to excess calories Type 2 diabetes mellitus with hyperglycemia, with long-term current use of insulin CHF (congestive heart failure) Cognitive developmental delay Proteinuria Type 2 diabetes mellitus with other diabetic kidney complication Essential hypertension Hyperlipidemia LDL goal <100 Edema Hyperlipidemia Cataracts, both eyes HTN (hypertension) Hypothyroid Diabetes Family History Family History Father HTN (hypertension) Mother Diabetes mellitus Maternal Grandmother Diabetes mellitus Family history of problems with anesthesia: No Surgical History Surgical History Hx laparoscopic cholecystectomy (10/16/22) 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) Hx of removal of cyst Hx of cataract surgery History of Problems with Anesthesia: No Social History Social History Household Members: Unknown / Unable to assess Household Members Other:: SNF Housing: Unknown / Unable to assess Housing Other:: senior care, [facility] Unable to assess alcohol history related to: Unknown Alcohol intake: never Patient Tobacco Use Status: Never used Tobacco e-Cigarette/Vaping Use: Never Used Second Hand Smoke Exposure: No Substance Use Type: Caffiene Advance Directives Date on File: 09/10/22 service: No Current occupational status: disabled Cognitive needs: Yes Hearing needs: No Vision needs: No Meds Allergies Allergy/AdvReac Type Severity Reaction Status Date / Time atorvastatin [ATORVASTATIN] Allergy Unknown skin Verified 06/21/23 09:55 eruption Active Medications: Current Medications Fentanyl (Fentanyl Citrate/Pf 100 Mcg/2 Ml Vial) 25 mcg IVPUSH Q5M PRN; Protocol PRN Reason: Pain, Moderate(Pain Scale 4-6) Lactated Ringer's (Lr) 1,000 mls @ 50 mls/hr IVCONT .Q20H CRISPIN Ondansetron HCl (Ondansetron Hcl 4 Mg/2 Ml Vial) 4 mg IVPUSH ONCE PRN PRN Reason: Nausea and Vomiting Home Medications Medication Instructions Recorded Confirmed Last Taken Type insulin aspart U-100 100 unit/mL See Protocol subcut QIDACHS 06/20/22 06/21/23 06/20/22 History (3 mL) subcutaneous pen (Novolog FlexPen U-100 Insulin aspart) metformin 500 mg tablet 1,000 mg PO BIDWM 06/20/22 06/21/23 06/20/22 History amlodipine 10 mg tablet 10 mg PO DAILY 10/12/22 06/21/23 Unknown History cholecalciferol (vitamin D3) 50 50 mcg PO DAILY 10/12/22 06/21/23 Unknown History mcg (2,000 unit) capsule dulaglutide 1.5 mg/0.5 mL 1.5 mg subcut .QTUESDAY 10/12/22 06/21/23 Unknown History [facility] escitalopram oxalate 10 mg tablet 10 mg PO DAILY 10/12/22 06/21/23 Unknown History ezetimibe 10 mg tablet 10 mg PO DAILY 10/12/22 06/21/23 Unknown History fenofibrate 54 mg tablet 54 mg PO DAILY 10/12/22 06/21/23 Unknown History gabapentin 100 mg capsule 100 mg PO TID 10/12/22 06/21/23 Unknown History insulin degludec 200 unit/mL (3 30 unit subcut DAILY 10/12/22 06/21/23 Unknown History mL) subcutaneous pen (Tresiba FlexTouch U-200 insulin) levothyroxine 150 mcg tablet 150 mcg PO DAILY 10/12/22 06/21/23 Unknown History lisinopril 10 mg tablet 10 mg PO DAILY 10/12/22 06/21/23 Unknown History ondansetron HCl 4 mg tablet 4 mg PO 3XD PRN Nausea 10/12/22 06/21/23 Unknown History simvastatin 40 mg tablet 40 mg PO BEDTIME 10/12/22 06/21/23 Unknown History Saccharomyces boulardii 250 mg 250 mg PO BID 10/13/22 06/21/23 Unknown History capsule (Probiotic (S.boulardii)) acetaminophen 325 mg tablet 650 mg PO Q4H PRN Fever Or Pain 10/13/22 06/21/23 Unknown History bisacodyl 10 mg rectal suppository 10 mg MN DAILY PRN Constipation 10/13/22 06/21/23 Unknown History magnesium hydroxide 400 mg/5 mL 30 ml PO DAILY PRN Constipation 10/13/22 06/21/23 Unknown History oral suspension (Milk of Magnesia) sodium phosphates 19 gram-7 118 ml MN DAILY PRN Constipation 10/13/22 06/21/23 Unknown History gram/118 mL enema (Fleet Enema) Exam Pertinent Lab Results Pertinent Lab Results: Laboratory Tests 07/10/23 09:27 WBC 8.1 RBC 3.50 L Hgb 9.9 L Hct 29.1 L MCV 83.1 MCH 28.3 MCHC 34.0 RDW 13.2 Plt Count 195 MPV 10.0 Absolute Nucleated RBC 0.000 Nucleated RBC % (auto) 0.0 Sodium 136 Potassium 4.9 Chloride 107 Carbon Dioxide 22 Anion Gap 12 BUN 35 H Creatinine 1.86 H Estim Creat Clear Calc TNP Estimated GFR 38 Fasting Glucose 220 H Calcium 9.3 D Airway Mallampati Class: III TM Dist: >3cm Neck ROM: Full Loose/Missing/Broken Teeth: No Heart: rrr Lungs: clear Assessment and Plan Final Anesthetic Review Family History of Problems with Anesthesia: No History of Problems with Anesthesia: No NPO: Yes ASA Class: IV Final Preanesthetic Review: No Changes in Pt Med Stat, Meds/Allgs Chart Reviewed, Consent Obtained/Reviewed and Anes Risks/Benef Reviewed Patient Risk: High Procedure Risk: Low Anesthetic Plan Anesthetic Plan: GA Disposition: Standard PACU
--- NOTE | 2023-07-10 09:58 | PC.NURSE ---
anesthesia made aware of labs and ekg results done this am. no new orders
--- NOTE | 2023-07-10 12:37 | W.PM.OPN ---
Operative Note Operative Note Date of Service: 07/10/23 Narrative: Preoperative diagnosis: Nonhealing wound right foot, status post transmetatarsal amputation Postoperative diagnosis: Same Procedure: Split-thickness skin graft from right thigh to right foot, wound VAC placement Surgeon: Bao Dempsey MD Urologist Physician: Sherly Olea PA-C, MARIO De Anda Anesthesia: General LMA Indications for procedure: 52-year-old male patient with history of diabetes mellitus and gangrene of toes of the right foot status post transmetatarsal amputation. Patient has undergone wound care to close the right foot wound and now presents with an area of granulation tissue measuring approximately 6 x 5 cm. He presents today for skin grafting. Operative findings: 5 x 6 cm open wound with excellent granulated base. Specimen: None Estimated blood loss: 5 mL Complications: None Procedure details: Patient was brought to the OR placed in a supine position. After administering general anesthesia the patient's right foot and right lateral thigh were prepped with Betadine and draped in a sterile fashion. A surgical time-out was called the consent confirmed. Patient received preoperative antibiotics and Venodyne boots were in place. Beginning at the right foot a curette was used to debride the overlying peel on the granulation tissue located at the distal portion of the transmetatarsal amputation. Surrounding callus was also excised using a scalpel. An excellent granulated base was noted. Attention was then directed to the right lateral thigh. A 0.2 graft was obtained measuring approximately 5 cm in with and 6 cm in length using the dermatome. This was then meshed with a wide mesh and immediately applied to the granulated base. This was secured circumferentially using skin rachel. The wound was then covered with Adaptic followed by black sponge cut to size and the Tegaderm dressing. This was connected to the wound VAC at 125 mmHg suction continuous. A good seal was identified. The donor site was covered with Adaptic followed by an ABD pad and paper tape. The patient tolerated the procedure well. Sponge, instrument, and needle counts reported as correct. The patient was transferred to PACU in stable condition.
[2023-07-10 12:52] LABS: Glucose, Whole Blood 204 mg/dL (60-115)
--- NOTE | 2023-07-10 13:39 | PHA.MEDREC ---
Pharmacy Consult ? Medication Reconciliation Pharmacy has completed the medication reconciliation. used list from facility.
[2023-07-10 14:37] LABS: Glucose, Whole Blood 209 mg/dL (60-115)
[2023-07-10] MEDS: Lactated Ringers 1,000 ML 50 ML IVCONT (14:48)
--- NOTE | 2023-07-10 15:42 | PC.NURSE ---
Wound vac on and patent. RLE
[2023-07-10] MEDS: Acetaminophen 1,000 MG/100 ML PIGGYBACK 400 MG IV ×2 (16:34→21:44)
[2023-07-10] MEDS: 0.9 % Sodium Chloride Flush 3 ML SYRINGE IVFLUSH (16:35)
--- NOTE | 2023-07-10 16:45 | PC.NURSE ---
OK to place sequentias above wound vac drsg on a right leg per Dr. Dempsey
--- NOTE | 2023-07-10 17:05 | MHC.SHP ---
Pre-Procedural Eval Section A Date of Service: 07/10/23 The patient is an INPATIENT: No Changes since office visit: Yes Patient answered all questions; No Cold of Flu in the past 2 weeks, No New Medical Problems and No Changes in Medication The History & Physical has been completed within 30 days and I have reviewed it.: Yes Section B Chief Complaint: Non healing right foot wound Allergies: Allergies Allergy/AdvReac Type Severity Reaction Status Date / Time atorvastatin [ATORVASTATIN] Allergy Unknown skin Verified 07/10/23 09:51 eruption Plan Diagnosis/Plan: Unchanged I have reviewed the history and physical and performed a pertinent physical examination on my patient. No changes have occurred unless specified. Time Spent With Patient Time: Total time managing care of this patient today ____ minutes.
[2023-07-10 20:38] LABS: Glucose, Whole Blood 456 mg/dL (60-115)
--- NOTE | 2023-07-10 20:48 | PC.NURSE ---
BS 456,Dr. Barth notified
--- NOTE | 2023-07-10 20:58 | PC.NURSE ---
BS 456 ,Dr. Araujo notified
[2023-07-10] MEDS: Insulin Lispro 100 UNIT/ML 3 ML VIAL SUBCUT (21:44)
[2023-07-11 03:37] VITALS: BP 133/95; PULSE 52; RESP 16; TEMP 36.3; O2SAT 99
[2023-07-11] MEDS: Acetaminophen 1,000 MG/100 ML PIGGYBACK 400 MG IV ×2 (04:25→10:31)
[2023-07-11] MEDS: Lactated Ringers 1,000 ML 50 ML IVCONT (06:24)
[2023-07-11 06:37] LABS: MANUAL DIFF FLAG NO
[2023-07-11 06:40] LABS: Basophils Percent Auto 0.4 % (0-2); Eosinophils Absolute Auto 0.1 X10*3/uL (0.0-0.4); Eosinophils Percent Auto 0.7 % (0-4); Hematocrit 28.9 % (42.0-52.0); Hemoglobin 9.9 g/dl (14.0-18.0); Imm Gran Abs Auto 0.04 X10*3/uL (0.00-0.03); Imm Gran Pct Auto 0.4 % (0.0-0.4); Lymphocytes Absolute Auto 1.5 X10*3/uL (1.2-4.9); Lymphocytes Percent Auto 15.3 % (20-40); Mean Corpuscular HGB Conc 34.3 g/dl (31.0-36.0); Mean Corpuscular Volume 81.6 fL (80.0-98.0); Mean Platelet Volume 10.8 fL (9.4-12.4); Monocytes Absolute Auto 0.7 X10*3/uL (0.1-1.2); Monocytes Percent Auto 7.3 % (2-11); Neutrophils Absolute Auto 7.2 x10*3/uL (2.0-8.3); Neutrophils Percent Auto 75.9 % (45-73); Platelet Count 203 X10*3/uL (160-400); Red Blood Count 3.54 X10*6/uL (4.60-5.80); Red Cell Distribution Width 12.8 % (11.0-16.0); White Blood Count 9.5 X10*3/uL (4.8-10.8)
[2023-07-11 06:55] LABS: Anion Gap 12 (12-20); Blood Urea Nitrogen 27 mg/dL (9-16); Calcium 9.2 mg/dL (8.4-10.2); Carbon Dioxide 22 mmol/L (22-29); Chloride 106 mmol/L (96-108); Creatinine Clr Calc Pharmacy 70.6; Estimated Glomerular Filt Rate 48; Glucose Random 296 mg/dL (60-115); Potassium 4.4 mmol/L (3.3-5.1); Sodium 136 mmol/L (135-145)
[2023-07-11 07:17] VITALS: BP 156/82; PULSE 78; RESP 16; TEMP 36.1; O2SAT 99
[2023-07-11 07:25] LABS: Glucose, Whole Blood 270 mg/dL (60-115)
[2023-07-11] MEDS: Insulin Glargine,Hum.rec.anlog 100 UNIT/ML 10 ML VIAL 15 UNIT SUBCUT (07:36)
[2023-07-11] MEDS: Insulin Lispro 100 UNIT/ML 3 ML VIAL SUBCUT ×4 (07:37→21:26)
--- NOTE | 2023-07-11 07:39 | P.PNGS_ITS ---
Subjective Subjective Date of Service: 07/11/23 Interval history: Pod 1 following split-thickness skin graft from right thigh to right foot, wound VAC placement. Patient is stable with no new complaints today. Wound VAC remains in place with no leak Physical Exam 2 Vital Signs: Vital Signs: Last Vital Signs Temp 96.9 F 07/11/23 07:17 Pulse 78 07/11/23 07:17 Resp 16 07/11/23 07:17 BP 156/82 H 07/11/23 07:17 Pulse Ox 99 07/11/23 07:17 O2 Del Method Nasal Cannula 07/11/23 07:17 O2 Flow Rate 2 07/11/23 07:17 BMI result Body Mass Index 37.8 Const: General: comfortable and no acute distress Nutritional Appearance: w ell nourished Orientation/consciousness: patient oriented x3 Resp: Effort & Inspection: normal respiratory effort Neuro: General: patient oriented x3 Extrem: Other: Wound VAC in place with minimal serous discharge noted. No leak noted in dressing. No erythema in foot. Objective Data Active Medications Dextrose (Dextrose 50 % 25 Gm/50 Ml Syringe) 25 gm IVPUSH Q15M PRN; Protocol PRN Reason: per Hypoglycemia Standing Ord. Enoxaparin Sodium (Enoxaparin Sodium 40 Mg/0.4 Ml Syringe) 40 mg SUBCUT Q24H CRISPIN Glucose (Glucose Gel 15 Gm Gel..Gram.) 15 gm PO Q15M PRN; Protocol PRN Reason: per Hypoglycemia Standing Ord. Hydromorphone HCl (Hydromorphone Hcl 1 Mg/Ml Syringe) 0.5 mg IVPUSH Q4H PRN; Protocol PRN Reason: Pain, Severe (Pain Scale 7-10) Lactated Ringer's (Lr) 1,000 mls @ 50 mls/hr IVCONT .Q20H [facility] Last Admin: 07/11/23 06:24 Dose: 50 mls/hr Documented By: NAHID Acetaminophen (Ofirmev) 1,000 mg in 100 mls @ 400 mls/hr IV Q6H [facility] Stop: 07/11/23 10:14 Last Infusion: 07/11/23 04:40 Dose: Infused Documented By: NAHID Insulin Glargine (Insulin Glargine,Hum.Rec.Anlog 100 Unit/Ml 10 Ml Vial) 15 unit SUBCUT DAILY [facility] Last Admin: 07/11/23 07:36 Dose: 15 unit Documented By: NARESH Insulin Human Lispro (Insulin Lispro 100 Unit/Ml 3 Ml Vial) 0 unit SUBCUT QIDACHS [facility]; Protocol Last Admin: 07/11/23 07:37 Dose: 6 unit Documented By: NARESH Magnesium Hydroxide (Milk Of Magnesia 30 Ml Oral.Susp) 30 ml PO DAILY PRN PRN Reason: Constipation Ondansetron HCl (Ondansetron Hcl 4 Mg/2 Ml Vial) 4 mg IVPUSH Q8H PRN PRN Reason: Nausea and Vomiting Oxycodone HCl (Oxycodone Hcl Immed Release 5 Mg Tablet) 5 mg PO Q6H PRN PRN Reason: Pain, Severe (Pain Scale 7-10) Sodium Chloride (0.9 % Sodium Chloride Flush 3 Ml Syringe) 3 ml IVFLUSH QSHIFT [facility] Last Admin: 07/11/23 07:39 Dose: Not Given Documented By: NARESH Non-Admin Reason: IV Running Zolpidem Tartrate (Zolpidem Tartrate 5 Mg Tablet) 5 mg PO BEDTIME PRN PRN Reason: Insomnia Labs 07/11/23 05:50 07/11/23 05:50 Labs: Laboratory Results - last 24 hr 07/10/23 07/10/23 07/10/23 09:20 09:27 14:29 MCV 83.1 MCH 28.3 MCHC 34.0 RDW 13.2 Plt Count 195 MPV 10.0 Immature Gran % (Auto) Neut % (Auto) Lymph % (Auto) Bucks % (Auto) Eos % (Auto) Baso % (Auto) Lymph # (Auto) Bucks # (Auto) Eos # (Auto) Baso # (Auto) Abs Immat Gran (auto) Absolute Neuts (auto) Absolute Nucleated RBC 0.000 Nucleated RBC % (auto) 0.0 Anion Gap 12 Estim Creat Clear Calc TNP Estimated GFR 38 POC Glucose 204 H 209 H Random Glucose Fasting Glucose 220 H Calcium 9.3 D 07/10/23 07/11/23 07/11/23 20:33 05:50 07:20 MCV 81.6 MCH 28.0 MCHC 34.3 RDW 12.8 Plt Count 203 MPV 10.8 Immature Gran % (Auto) 0.4 Neut % (Auto) 75.9 H Lymph % (Auto) 15.3 L Bucks % (Auto) 7.3 Eos % (Auto) 0.7 Baso % (Auto) 0.4 Lymph # (Auto) 1.5 Bucks # (Auto) 0.7 Eos # (Auto) 0.1 Baso # (Auto) 0.0 Abs Immat Gran (auto) 0.04 H Absolute Neuts (auto) 7.2 Absolute Nucleated RBC 0.000 Nucleated RBC % (auto) 0.0 Anion Gap 12 Estim Creat Clear Calc 70.6 Estimated GFR 48 POC Glucose 456 H* 270 H Random Glucose 296 H Fasting Glucose Calcium 9.2 Procedures Date of Service Date of Service: 07/11/23 Progress Note: A&P Assessment and plan (1) Status post transmetatarsal amputation of right foot: Status: Acute Plan Pod 1 following split-thickness skin graft to right foot. Wound VAC remains in place, functioning well. Plan dressing change tomorrow. Continue nonweightbearing to the right foot. Time Spent With Patient Time: Total time managing care of this patient today ____ minutes. Quality Stroke Does the patient have a stroke diagnosis?: No VTE Prior VTE?: No VTE Risk Level:: Surgical - moderate VTE Device Contraindication: N/A - Device Ordered VTE Drug Contraindication: N/A - Med Ordered
--- NOTE | 2023-07-11 08:43 | P.CONHOSP_ITS ---
History of Present Illness Data of Consult Service Date: 07/11/23 Requesting physician: Bao Dempsey Primary Care Provider: Isai Reaves MD HPI Reason for consult: medical management 52-year-old male with insulin-dependent type 2 diabetes, congestive heart failure, proteinuria, hyperlipidemia, hypertension, autoimmune hypothyroidism, with chronic diabetic foot ulcer of the right foot admitted to general surgery for TMA R foot. He reports feeling well, pain is controlled. Has wound vac in place. Otherwise has no complaints. Review of Systems 2 Review of Systems: Yes all other systems are reviewed and are negative [facility] Medical History Nausea and vomiting Bacteremia Bilateral hand pain Right knee pain Hypovitaminosis D Right foot pain Left foot pain Infection of penis Hyponatremia Hyperkalemia Diabetic ketoacidosis Acute kidney injury Autoimmune thyroiditis Obesity due to excess calories Type 2 diabetes mellitus with hyperglycemia, with long-term current use of insulin CHF (congestive heart failure) Cognitive developmental delay Proteinuria Type 2 diabetes mellitus with other diabetic kidney complication Essential hypertension Hyperlipidemia LDL goal <100 Edema Hyperlipidemia Cataracts, both eyes HTN (hypertension) Hypothyroid Diabetes Family History Father HTN (hypertension) Mother Diabetes mellitus Maternal Grandmother Diabetes mellitus Surgical History Hx laparoscopic cholecystectomy (10/16/22) 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) Hx of removal of cyst Hx of cataract surgery Social History Household Members: None Household Members Other:: SNF Housing: Other Housing Other:: SNF Do you presently have visiting nurse or other home services: Yes Unable to assess alcohol history related to: Unknown Alcohol intake: never Patient Tobacco Use Status: Never used Tobacco e-Cigarette/Vaping Use: Never Used Second Hand Smoke Exposure: No Use of substances other than those prescribed or required for medical reasons: No Substance Use Type: Caffiene Currently Displaying Signs/Symptoms of Drug Intoxication Withdrawal: No Do you feel safe in your current relationship?: No Current Relationship Are you DNR?: No Advance Directives: Yes Advance Directives on File: Yes Advance Directives Date on File: 09/10/22 Do you have thoughts of harming others: None Do you have a plan to hurt others: No Plan Recently lost weight without trying: No Poor oral hygiene: No service: No Current occupational status: disabled Cognitive needs: Yes Hearing needs: No Vision needs: No Meds Allergies Allergy/AdvReac Type Severity Reaction Status Date / Time atorvastatin [ATORVASTATIN] Allergy Unknown skin Verified 07/10/23 09:51 eruption Active Medications: Current Medications Dextrose (Dextrose 50 % 25 Gm/50 Ml Syringe) 25 gm IVPUSH Q15M PRN; Protocol PRN Reason: per Hypoglycemia Standing Ord. Enoxaparin Sodium (Enoxaparin Sodium 40 Mg/0.4 Ml Syringe) 40 mg SUBCUT Q24H [facility] Glucose (Glucose Gel 15 Gm Gel..Gram.) 15 gm PO Q15M PRN; Protocol PRN Reason: per Hypoglycemia Standing Ord. Hydromorphone HCl (Hydromorphone Hcl 1 Mg/Ml Syringe) 0.5 mg IVPUSH Q4H PRN; Protocol PRN Reason: Pain, Severe (Pain Scale 7-10) Lactated Ringer's (Lr) 1,000 mls @ 50 mls/hr IVCONT .Q20H [facility] Last Admin: 07/11/23 06:24 Dose: 50 mls/hr Acetaminophen (Ofirmev) 1,000 mg in 100 mls @ 400 mls/hr IV Q6H [facility] Stop: 07/11/23 10:14 Last Infusion: 07/11/23 04:40 Dose: Infused Insulin Glargine (Insulin Glargine,Hum.Rec.Anlog 100 Unit/Ml 10 Ml Vial) 15 unit SUBCUT DAILY [facility] Last Admin: 07/11/23 07:36 Dose: 15 unit Insulin Human Lispro (Insulin Lispro 100 Unit/Ml 3 Ml Vial) 0 unit SUBCUT QIDACHS [facility]; Protocol Last Admin: 07/11/23 07:37 Dose: 6 unit Magnesium Hydroxide (Milk Of Magnesia 30 Ml Oral.Susp) 30 ml PO DAILY PRN PRN Reason: Constipation Ondansetron HCl (Ondansetron Hcl 4 Mg/2 Ml Vial) 4 mg IVPUSH Q8H PRN PRN Reason: Nausea and Vomiting Oxycodone HCl (Oxycodone Hcl Immed Release 5 Mg Tablet) 5 mg PO Q6H PRN PRN Reason: Pain, Severe (Pain Scale 7-10) Sodium Chloride (0.9 % Sodium Chloride Flush 3 Ml Syringe) [facility] Last Admin: 07/11/23 07:39 Dose: Not Given Zolpidem Tartrate (Zolpidem Tartrate 5 Mg Tablet) 5 mg PO BEDTIME PRN PRN Reason: Insomnia Home Medications Medication Instructions Recorded Confirmed Last Taken Type metformin 500 mg tablet 1,000 mg PO BID 06/20/22 07/10/23 06/20/22 History amlodipine 10 mg tablet 10 mg PO DAILY 10/12/22 07/10/23 07/10/23 History cholecalciferol (vitamin D3) 50 50 mcg PO DAILY 10/12/22 07/10/23 Unknown History mcg (2,000 unit) capsule escitalopram oxalate 10 mg tablet 10 mg PO DAILY 10/12/22 07/10/23 Unknown History ezetimibe 10 mg tablet 10 mg PO DAILY 10/12/22 07/10/23 Unknown History fenofibrate 54 mg tablet 54 mg PO DAILY 10/12/22 07/10/23 Unknown History gabapentin 100 mg capsule 100 mg PO TID 10/12/22 07/10/23 Unknown History insulin degludec 200 unit/mL (3 20 unit subcut QAM 10/12/22 07/10/23 Unknown History mL) subcutaneous pen (Tresiba FlexTouch U-200 insulin) levothyroxine 150 mcg tablet 150 mcg PO DAILY 10/12/22 07/10/23 07/10/23 History lisinopril 10 mg tablet 10 mg PO DAILY 10/12/22 07/10/23 Unknown History ondansetron HCl 4 mg tablet 4 mg PO Q8H PRN Nausea 10/12/22 07/10/23 Unknown History simvastatin 40 mg tablet 40 mg PO BEDTIME 10/12/22 07/10/23 Unknown History Saccharomyces boulardii 250 mg 250 mg PO BID 10/13/22 07/10/23 Unknown History capsule (Probiotic (S.boulardii)) acetaminophen 325 mg tablet 650 mg PO Q4H PRN Fever Or Pain 10/13/22 07/10/23 Unknown History bisacodyl 10 mg rectal suppository 10 mg VT DAILY PRN Constipation 10/13/22 07/10/23 Unknown History magnesium hydroxide 400 mg/5 mL 30 ml PO DAILY PRN Constipation 10/13/22 07/10/23 Unknown History oral suspension (Milk of Magnesia) sodium phosphates 19 gram-7 118 ml VT DAILY PRN Constipation 10/13/22 07/10/23 Unknown History gram/118 mL enema (Fleet Enema) ammonium lactate 12 % topical cream 1 appl topical DAILY 07/10/23 07/10/23 Unknown History collagenase clostridium histo. 250 1 appl topical Q2D 07/10/23 07/10/23 Unknown History unit/gram topical ointment (Santyl) dulaglutide 3 mg/0.5 mL 3 mg subcut TU 07/10/23 07/10/23 Unknown History subcutaneous pen injector (Trulicity) insulin lispro 100 unit/mL See Protocol subcut QIDACHS 07/10/23 07/10/23 Unknown History subcutaneous solution Physical Exam 2 Vital Signs and Narrative: Vital Signs: Last Vital Signs Temp 96.9 F 07/11/23 07:17 Pulse 78 07/11/23 07:17 Resp 16 07/11/23 07:17 BP 156/82 H 07/11/23 07:17 Pulse Ox 99 07/11/23 07:17 O2 Del Method Nasal Cannula 07/11/23 07:17 O2 Flow Rate 2 07/11/23 07:17 BMI result Body Mass Index 37.8 Constitutional - Awake and Alert, No apparent distress Eyes - PERRLA, EOMI Cardiovascular - S1S2, RRR, No edema Respiratory - Normal lung expansion, Normal respiratory effort, No respiratory distress, CTA bilaterally Gastrointestinal - NT / ND; +BS; No rebound or guarding Extremities - no calf tenderness bilaterally, no swelling, s/p R TMA, wound vac in place. no surrounding erythema Skin - Warm/Dry Neurological - Alert & oriented x3 Psychological - Appropriate affect Results Labs 07/11/23 05:50 07/11/23 05:50 Labs: Laboratory Results - last 24 hr 07/10/23 07/10/23 07/10/23 09:20 09:27 14:29 MCV 83.1 MCH 28.3 MCHC 34.0 RDW 13.2 Plt Count 195 MPV 10.0 Immature Gran % (Auto) Neut % (Auto) Lymph % (Auto) Kimball % (Auto) Eos % (Auto) Baso % (Auto) Lymph # (Auto) Kimball # (Auto) Eos # (Auto) Baso # (Auto) Abs Immat Gran (auto) Absolute Neuts (auto) Absolute Nucleated RBC 0.000 Nucleated RBC % (auto) 0.0 Anion Gap 12 Estim Creat Clear Calc TNP Estimated GFR 38 POC Glucose 204 H 209 H Random Glucose Fasting Glucose 220 H Calcium 9.3 D 07/10/23 07/11/23 07/11/23 20:33 05:50 07:20 MCV 81.6 MCH 28.0 MCHC 34.3 RDW 12.8 Plt Count 203 MPV 10.8 Immature Gran % (Auto) 0.4 Neut % (Auto) 75.9 H Lymph % (Auto) 15.3 L Kimball % (Auto) 7.3 Eos % (Auto) 0.7 Baso % (Auto) 0.4 Lymph # (Auto) 1.5 Kimball # (Auto) 0.7 Eos # (Auto) 0.1 Baso # (Auto) 0.0 Abs Immat Gran (auto) 0.04 H Absolute Neuts (auto) 7.2 Absolute Nucleated RBC 0.000 Nucleated RBC % (auto) 0.0 Anion Gap 12 Estim Creat Clear Calc 70.6 Estimated GFR 48 POC Glucose 456 H* 270 H Random Glucose 296 H Fasting Glucose Calcium 9.2 Assessment and Plan (1) Status post transmetatarsal amputation of right foot: Status: Acute (2) Diabetic foot ulcer: Status: Acute Plan 52-year-old male with insulin-dependent type 2 diabetes, congestive heart failure, proteinuria, hyperlipidemia, hypertension, autoimmune hypothyroidism, with chronic diabetic foot ulcer of the right foot admitted to general surgery for TMA R foot. #Chronic non healing diabetic foot ulcer s/p R TMA -plan per general surgery #Insulin-dependent type 2 diabetes- with hyperglycemia -hgb a1c pending -dose adjusted basal insulin -poc glucose, diabetic diet -humalog on ss #hld -continue home meds #HTN -bp slightly elevated -resume lisinopril, amlodipine #Hypothyroidism -continue synthroid Thankyou for this consult. We will continue following along with you
[2023-07-11 10:00] LABS: Estimated Average Glucose 278 mg/dL; Hemoglobin A1c % 11.3 % (<6.0)
[2023-07-11] MEDS: Ezetimibe 10 MG TABLET PO (10:25)
[2023-07-11] MEDS: Fenofibrate 54 MG TABLET PO (10:25)
[2023-07-11] MEDS: lisinopriL 10 MG TABLET PO (10:25)
[2023-07-11] MEDS: amLODIPine Besylate 10 MG TABLET PO (10:25)
[2023-07-11] MEDS: Gabapentin 100 MG CAPSULE PO ×3 (10:26→21:26)
[2023-07-11] MEDS: Escitalopram Oxalate 10 MG TABLET PO (10:26)
[2023-07-11] MEDS: Levothyroxine Sodium 150 MCG TABLET PO (10:28)
[2023-07-11] MEDS: Enoxaparin Sodium 40 MG/0.4 ML SYRINGE SUBCUT (10:28)
[2023-07-11 11:10] LABS: Glucose, Whole Blood 344 mg/dL (60-115)
--- NOTE | 2023-07-11 12:44 | HO.POSTANES ---
Post Anesthesia Evaluation Post Anesthesia Evaluation Date of Service: 07/11/23 Vital Signs: Vital Signs Temp Pulse Resp BP Pulse Ox O2 Del Method O2 Flow Rate 07/11/23 07:17 96.9 F 78 16 156/82 H 99 Nasal Cannula 2 07/11/23 03:37 97.3 F 52 16 133/95 H 99 Room Air Anesthesia: General Mental Status: Awake Pain Control: Satisfactory Nausea/Vomiting: None Hydration: Adequate Anesthesia-Related Issues: No Anes. Related Issues
--- NOTE | 2023-07-11 12:58 | MHC.CM.PN ---
IMM 07/11/23 Male 52 DX Non healing foot wound. He is a bed hold at [facility]. A referral has been sent to [facility]. Patient is dependent with care. He states that he uses a walker to ambulate. A HCP is on file. an mold preparer was used for the interview. DP return to [facility] via BLS.
[2023-07-11 16:00] VITALS: BP 153/74; PULSE 79; RESP 16; TEMP 36.1; O2SAT 99
[2023-07-11 16:16] LABS: Glucose, Whole Blood 311 mg/dL (60-115)
[2023-07-11 19:42] VITALS: BP 117/60; PULSE 76; RESP 14; TEMP 36.3; O2SAT 99
[2023-07-11 19:47] LABS: Glucose, Whole Blood 270 mg/dL (60-115)
[2023-07-11] MEDS: Atorvastatin Calcium 20 MG TABLET PO (21:26)
[2023-07-12 03:27] VITALS: BP 123/71; PULSE 78; RESP 16; TEMP 36.4; O2SAT 97
[2023-07-12] MEDS: Lactated Ringers 1,000 ML 50 ML IVCONT (05:20)
[2023-07-12] MEDS: Levothyroxine Sodium 150 MCG TABLET PO (05:22)
[2023-07-12 07:21] VITALS: BP 114/79; PULSE 76; RESP 18; TEMP 36.3; O2SAT 99
[2023-07-12 07:33] LABS: Glucose, Whole Blood 205 mg/dL (60-115)
[2023-07-12] MEDS: Insulin Glargine,Hum.rec.anlog 100 UNIT/ML 10 ML VIAL 15 UNIT SUBCUT (08:40)
[2023-07-12] MEDS: Fenofibrate 54 MG TABLET PO (08:40)
[2023-07-12] MEDS: Insulin Lispro 100 UNIT/ML 3 ML VIAL SUBCUT ×4 (08:40→20:27)
[2023-07-12] MEDS: Ezetimibe 10 MG TABLET PO (08:41)
[2023-07-12] MEDS: Escitalopram Oxalate 10 MG TABLET PO (08:41)
[2023-07-12] MEDS: 0.9 % Sodium Chloride Flush 3 ML SYRINGE IVFLUSH ×3 (08:41→23:49)
[2023-07-12] MEDS: amLODIPine Besylate 10 MG TABLET PO (08:41)
[2023-07-12] MEDS: lisinopriL 10 MG TABLET PO (08:41)
[2023-07-12] MEDS: Gabapentin 100 MG CAPSULE PO ×3 (08:41→20:26)
--- NOTE | 2023-07-12 08:48 | PM.PNGS ---
Subjective Subjective Date of Service: 07/12/23 Interval history: No new complaints. Physical Exam Vital Signs: Vital Signs: Last Vital Signs Temp 97.4 F 07/12/23 07:21 Pulse 76 07/12/23 07:21 Resp 18 07/12/23 07:21 BP 114/79 07/12/23 07:21 Pulse Ox 99 07/12/23 07:21 O2 Del Method Room Air 07/12/23 07:21 O2 Flow Rate 3 07/11/23 19:42 BMI result Body Mass Index 37.8 Const: Orientation/consciousness: patient oriented x3 Resp: Effort & Inspection: normal respiratory effort Neuro: General: patient oriented x3 and moves all extremities Extrem: Other: right foot skin graft site with good uptake, underlying tissue granulating well right donor site dressing c/d/i Objective Data Active Medications Amlodipine Besylate (Amlodipine Besylate 10 Mg Tablet) 10 mg PO DAILY [facility]; Protocol Last Admin: 07/12/23 08:41 Dose: 10 mg Documented By: LAUREN Atorvastatin Calcium (Atorvastatin Calcium 20 Mg Tablet) 20 mg PO BEDTIME [facility] Last Admin: 07/11/23 21:26 Dose: 20 mg Documented By: LAURA Dextrose (Dextrose 50 % 25 Gm/50 Ml Syringe) 25 gm IVPUSH Q15M PRN; Protocol PRN Reason: per Hypoglycemia Standing Ord. Ezetimibe (Ezetimibe 10 Mg Tablet) 10 mg PO DAILY [facility] Last Admin: 07/12/23 08:41 Dose: 10 mg Documented By: LAUREN Enoxaparin Sodium (Enoxaparin Sodium 40 Mg/0.4 Ml Syringe) 40 mg SUBCUT Q24H [facility] Last Admin: 07/11/23 10:28 Dose: 40 mg Documented By: NARESH Escitalopram Oxalate (Escitalopram Oxalate 10 Mg Tablet) 10 mg PO DAILY [facility] Last Admin: 07/12/23 08:41 Dose: 10 mg Documented By: LAUREN Fenofibrate (Fenofibrate 54 Mg Tablet) 54 mg PO DAILY [facility] Last Admin: 07/12/23 08:40 Dose: 54 mg Documented By: LAUREN Gabapentin (Gabapentin 100 Mg Capsule) 100 mg PO TID [facility] Last Admin: 07/12/23 08:41 Dose: 100 mg Documented By: LAUREN Glucose (Glucose Gel 15 Gm Gel..Gram.) 15 gm PO Q15M PRN; Protocol PRN Reason: per Hypoglycemia Standing Ord. Hydromorphone HCl (Hydromorphone Hcl 1 Mg/Ml Syringe) 0.5 mg IVPUSH Q4H PRN; Protocol PRN Reason: Pain, Severe (Pain Scale 7-10) Piperacillin Sod/Tazobactam (Sod 3.375 gm/ Sodium Chloride) 50 mls @ 100 mls/hr IV Q6H [facility] Insulin Glargine (Insulin Glargine,Hum.Rec.Anlog 100 Unit/Ml 10 Ml Vial) 15 unit SUBCUT DAILY [facility] Last Admin: 07/12/23 08:40 Dose: 15 unit Documented By: LAUREN Insulin Human Lispro (Insulin Lispro 100 Unit/Ml 3 Ml Vial) 0 unit SUBCUT QIDACHS [facility]; Protocol Last Admin: 07/12/23 08:40 Dose: 4 unit Documented By: LAUREN Levothyroxine Sodium (Levothyroxine Sodium 150 Mcg Tablet) 150 mcg PO DAILY@0600 [facility] Last Admin: 07/12/23 05:22 Dose: 150 mcg Documented By: LAURA Lisinopril (Lisinopril 10 Mg Tablet) 10 mg PO DAILY [facility]; Protocol Last Admin: 07/12/23 08:41 Dose: 10 mg Documented By: LAUREN Magnesium Hydroxide (Milk Of Magnesia 30 Ml Oral.Susp) 30 ml PO DAILY PRN PRN Reason: Constipation Ondansetron HCl (Ondansetron Hcl 4 Mg/2 Ml Vial) 4 mg IVPUSH Q8H PRN PRN Reason: Nausea and Vomiting Oxycodone HCl (Oxycodone Hcl Immed Release 5 Mg Tablet) 5 mg PO Q6H PRN PRN Reason: Pain, Severe (Pain Scale 7-10) Sodium Chloride (0.9 % Sodium Chloride Flush 3 Ml Syringe) [facility] Last Admin: 07/12/23 08:41 Dose: 3 ml Documented By: LAUREN Zolpidem Tartrate (Zolpidem Tartrate 5 Mg Tablet) 5 mg PO BEDTIME PRN PRN Reason: Insomnia Labs 07/11/23 05:50 07/11/23 05:50 Labs: Laboratory Results - last 24 hr 07/11/23 07/11/23 07/11/23 05:50 11:05 16:12 POC Glucose 344 H 311 H Estimat Average Glucose 278 Hemoglobin A1c % 11.3 H 07/11/23 07/12/23 19:43 07:18 POC Glucose 270 H 205 H Estimat Average Glucose Hemoglobin A1c % Procedures Date of Service Date of Service: 07/12/23 Progress Note: A&P Assessment and plan (1) Status post transmetatarsal amputation of right foot: Status: Acute (2) S/P split thickness skin graft: Status: Acute Plan Pod 2 following split-thickness skin graft to right foot. Wound VAC dressing changed today- overall graft adherent with good uptake without areas of necrosis however has maladorous smell and will therefore start on IV zosyn. Plan dressing change Saturday and if still doing well, stable for dc with wound vac in place. Time Spent With Patient Time: Total time managing care of this patient today ____ minutes. Quality Stroke Does the patient have a stroke diagnosis?: No VTE Prior VTE?: No VTE Risk Level:: Surgical - moderate VTE Device Contraindication: N/A - Device Ordered VTE Drug Contraindication: N/A - Med Ordered
[2023-07-12] MEDS: Piperacillin Sodium/Tazobactam 3.375 GM in 0.9 % Sodium Chloride 50 ML IV ×3 (10:53→20:26)
[2023-07-12] MEDS: Enoxaparin Sodium 40 MG/0.4 ML SYRINGE SUBCUT (10:53)
[2023-07-12 11:30] LABS: Glucose, Whole Blood 304 mg/dL (60-115)
--- NOTE | 2023-07-12 11:58 | MHC.CM.PN ---
DP return to [facility] via BLS. He is a bedhold.
[2023-07-12 15:25] VITALS: BP 136/77; PULSE 78; RESP 18; TEMP 36.2; O2SAT 98
--- NOTE | 2023-07-12 15:40 | P.PNIM_ITS ---
Subjective Subjective Date of Service: 07/12/23 Interval History: No acute issues overnight. Tolerating wound VAC without issue Review of Systems Denies chest pain Denies shortness of breath Denies nausea vomiting diarrhea Denies fever chills Physical Exam 2 Vital Signs: Vital Signs: Last Vital Signs Temp 97.1 F 07/12/23 15:25 Pulse 78 07/12/23 15:25 Resp 18 07/12/23 15:25 BP 136/77 07/12/23 15:25 Pulse Ox 98 07/12/23 15:25 O2 Del Method Room Air 07/12/23 15:25 O2 Flow Rate 3 07/11/23 19:42 BMI result Body Mass Index 37.8 Const: Other: Awake alert no acute distress Resp: Other: Clear to auscultation bilaterally no rales rhonchi or wheezes Cardio: Other: No S4; positive S1-S2; no S3 murmurs rubs or gallops GI: Other: Soft nontender nondistended normoactive bowel sounds Extrem: Other: Wound VAC right lower extremity Objective Data Active Medications Amlodipine Besylate (Amlodipine Besylate 10 Mg Tablet) 10 mg PO DAILY [facility]; Protocol Last Admin: 07/12/23 08:41 Dose: 10 mg Documented By: LAUREN Atorvastatin Calcium (Atorvastatin Calcium 20 Mg Tablet) 20 mg PO BEDTIME [facility] Last Admin: 07/11/23 21:26 Dose: 20 mg Documented By: LAURA Dextrose (Dextrose 50 % 25 Gm/50 Ml Syringe) 25 gm IVPUSH Q15M PRN; Protocol PRN Reason: per Hypoglycemia Standing Ord. Ezetimibe (Ezetimibe 10 Mg Tablet) 10 mg PO DAILY [facility] Last Admin: 07/12/23 08:41 Dose: 10 mg Documented By: LAUREN Enoxaparin Sodium (Enoxaparin Sodium 40 Mg/0.4 Ml Syringe) 40 mg SUBCUT Q24H [facility] Last Admin: 07/12/23 10:53 Dose: 40 mg Documented By: ETHAN Escitalopram Oxalate (Escitalopram Oxalate 10 Mg Tablet) 10 mg PO DAILY [facility] Last Admin: 07/12/23 08:41 Dose: 10 mg Documented By: LAUREN Fenofibrate (Fenofibrate 54 Mg Tablet) 54 mg PO DAILY [facility] Last Admin: 07/12/23 08:40 Dose: 54 mg Documented By: LAUREN Gabapentin (Gabapentin 100 Mg Capsule) 100 mg PO TID [facility] Last Admin: 07/12/23 15:13 Dose: 100 mg Documented By: LAUREN Glucose (Glucose Gel 15 Gm Gel..Gram.) 15 gm PO Q15M PRN; Protocol PRN Reason: per Hypoglycemia Standing Ord. Hydromorphone HCl (Hydromorphone Hcl 1 Mg/Ml Syringe) 0.5 mg IVPUSH Q4H PRN; Protocol PRN Reason: Pain, Severe (Pain Scale 7-10) Piperacillin Sod/Tazobactam (Sod 3.375 gm/ Sodium Chloride) 50 mls @ 100 mls/hr IV Q6H [facility] Last Admin: 07/12/23 15:13 Dose: 100 mls/hr Documented By: LAUREN Insulin Glargine (Insulin Glargine,Hum.Rec.Anlog 100 Unit/Ml 10 Ml Vial) 15 unit SUBCUT DAILY [facility] Last Admin: 07/12/23 08:40 Dose: 15 unit Documented By: LAUREN Insulin Human Lispro (Insulin Lispro 100 Unit/Ml 3 Ml Vial) 0 unit SUBCUT QIDACHS [facility]; Protocol Last Admin: 07/12/23 12:06 Dose: 8 unit Documented By: LAUREN Levothyroxine Sodium (Levothyroxine Sodium 150 Mcg Tablet) 150 mcg PO DAILY@0600 [facility] Last Admin: 07/12/23 05:22 Dose: 150 mcg Documented By: LAURA Lisinopril (Lisinopril 10 Mg Tablet) 10 mg PO DAILY [facility]; Protocol Last Admin: 07/12/23 08:41 Dose: 10 mg Documented By: LAUREN Magnesium Hydroxide (Milk Of Magnesia 30 Ml Oral.Susp) 30 ml PO DAILY PRN PRN Reason: Constipation Ondansetron HCl (Ondansetron Hcl 4 Mg/2 Ml Vial) 4 mg IVPUSH Q8H PRN PRN Reason: Nausea and Vomiting Oxycodone HCl (Oxycodone Hcl Immed Release 5 Mg Tablet) 5 mg PO Q6H PRN PRN Reason: Pain, Severe (Pain Scale 7-10) Sodium Chloride (0.9 % Sodium Chloride Flush 3 Ml Syringe) 3 ml IVFLUSH QSHIFT [facility] Last Admin: 07/12/23 08:41 Dose: 3 ml Documented By: LAUREN Zolpidem Tartrate (Zolpidem Tartrate 5 Mg Tablet) 5 mg PO BEDTIME PRN PRN Reason: Insomnia Labs 07/11/23 05:50 07/11/23 05:50 Labs: Laboratory Results - last 24 hr 07/11/23 07/11/23 07/12/23 16:12 19:43 07:18 POC Glucose 311 H 270 H 205 H 07/12/23 11:23 POC Glucose 304 H Assessment and Plan (1) Status post transmetatarsal amputation of right foot: Status: Acute (2) Type 2 diabetes mellitus with hyperosmolar hyperglycemic state (HHS): Status: Acute Plan 52-year-old male with insulin-dependent type 2 diabetes, congestive heart failure, proteinuria, hyperlipidemia, hypertension, autoimmune hypothyroidism, with chronic diabetic foot ulcer of the right foot admitted to general surgery for TMA R foot. 1.Chronic non healing diabetic foot ulcer s/p R TMA -plan per general surgery 2.Insulin-dependent type 2 diabetes -control improved -add back metformin -lispro correctional scale -adjust as indicated 3.HTN -acceptable control on current therapies -adjust as indicated Thankyou for this consult. We will continue following along with you Quality Stroke Does the patient have a stroke diagnosis?: No VTE Prior VTE?: No VTE Risk Level:: Surgical - moderate VTE Device Contraindication: N/A - Device Ordered VTE Drug Contraindication: N/A - Med Ordered
[2023-07-12 16:31] LABS: Glucose, Whole Blood 267 mg/dL (60-115)
[2023-07-12] MEDS: metFORMIN HCl 1,000 MG TABLET 1000 MG PO (16:54)
[2023-07-12 19:38] VITALS: BP 128/77; PULSE 71; RESP 18; TEMP 36.1; O2SAT 96
[2023-07-12 20:22] LABS: Glucose, Whole Blood 262 mg/dL (60-115)
[2023-07-12] MEDS: Atorvastatin Calcium 20 MG TABLET PO (20:26)
[2023-07-13] MEDS: Piperacillin Sodium/Tazobactam 3.375 GM in 0.9 % Sodium Chloride 50 ML IV ×4 (03:35→20:10)
[2023-07-13 03:46] VITALS: BP 114/68; PULSE 70; RESP 18; TEMP 36.1; O2SAT 100
[2023-07-13] MEDS: Levothyroxine Sodium 150 MCG TABLET PO (06:44)
[2023-07-13 07:16] VITALS: BP 113/65; PULSE 72; RESP 18; TEMP 36; O2SAT 99
[2023-07-13 07:26] LABS: Glucose, Whole Blood 205 mg/dL (60-115)
[2023-07-13] MEDS: Insulin Lispro 100 UNIT/ML 3 ML VIAL SUBCUT ×4 (08:53→21:55)
[2023-07-13] MEDS: Ezetimibe 10 MG TABLET PO (08:54)
[2023-07-13] MEDS: amLODIPine Besylate 10 MG TABLET PO (08:54)
[2023-07-13] MEDS: metFORMIN HCl 1,000 MG TABLET 1000 MG PO ×2 (08:54→15:46)
[2023-07-13] MEDS: Insulin Glargine,Hum.rec.anlog 100 UNIT/ML 10 ML VIAL 15 UNIT SUBCUT (08:54)
[2023-07-13] MEDS: Escitalopram Oxalate 10 MG TABLET PO (08:55)
[2023-07-13] MEDS: Fenofibrate 54 MG TABLET PO (08:55)
[2023-07-13] MEDS: lisinopriL 10 MG TABLET PO (08:55)
[2023-07-13] MEDS: Gabapentin 100 MG CAPSULE PO ×3 (08:55→20:09)
[2023-07-13] MEDS: 0.9 % Sodium Chloride Flush 3 ML SYRINGE IVFLUSH ×3 (08:56→20:10)
--- NOTE | 2023-07-13 09:37 | PM.PNGS ---
Subjective Subjective Date of Service: 07/13/23 Interval history: feesl well no complaints Physical Exam Vital Signs: Vital Signs: Last Vital Signs Temp 96.8 F 07/13/23 07:16 Pulse 72 07/13/23 07:16 Resp 18 07/13/23 07:16 BP 113/65 07/13/23 07:16 Pulse Ox 99 07/13/23 07:16 O2 Del Method Nasal Cannula 07/13/23 07:16 O2 Flow Rate 3 07/13/23 07:16 BMI result Body Mass Index 37.8 Const: General: comfortable and no acute distress Resp: Effort & Inspection: normal respiratory effort Cardio: Rate: regular rate GI: Palpation (GI): Soft to palpation, not firm and nontender Extrem: Other: woundvac in place on TMA right foot vacuum seal intact he looks well plan for change of woundvac on Saturday then dc home Objective Data Active Medications Amlodipine Besylate (Amlodipine Besylate 10 Mg Tablet) 10 mg PO DAILY [facility]; Protocol Last Admin: 07/13/23 08:54 Dose: 10 mg Documented By: SATINDER Atorvastatin Calcium (Atorvastatin Calcium 20 Mg Tablet) 20 mg PO BEDTIME [facility] Last Admin: 07/12/23 20:26 Dose: 20 mg Documented By: DONALD Dextrose (Dextrose 50 % 25 Gm/50 Ml Syringe) 25 gm IVPUSH Q15M PRN; Protocol PRN Reason: per Hypoglycemia Standing Ord. Ezetimibe (Ezetimibe 10 Mg Tablet) 10 mg PO DAILY [facility] Last Admin: 07/13/23 08:54 Dose: 10 mg Documented By: SATINDER Enoxaparin Sodium (Enoxaparin Sodium 40 Mg/0.4 Ml Syringe) 40 mg SUBCUT Q24H [facility] Last Admin: 07/12/23 10:53 Dose: 40 mg Documented By: ETHAN Escitalopram Oxalate (Escitalopram Oxalate 10 Mg Tablet) 10 mg PO DAILY [facility] Last Admin: 07/13/23 08:55 Dose: 10 mg Documented By: SATINDER Fenofibrate (Fenofibrate 54 Mg Tablet) 54 mg PO DAILY [facility] Last Admin: 07/13/23 08:55 Dose: 54 mg Documented By: SATINDER Gabapentin (Gabapentin 100 Mg Capsule) 100 mg PO TID [facility] Last Admin: 07/13/23 08:55 Dose: 100 mg Documented By: SATINDER Glucose (Glucose Gel 15 Gm Gel..Gram.) 15 gm PO Q15M PRN; Protocol PRN Reason: per Hypoglycemia Standing Ord. Hydromorphone HCl (Hydromorphone Hcl 1 Mg/Ml Syringe) 0.5 mg IVPUSH Q4H PRN; Protocol PRN Reason: Pain, Severe (Pain Scale 7-10) Piperacillin Sod/Tazobactam (Sod 3.375 gm/ Sodium Chloride) 50 mls @ 100 mls/hr IV Q6H [facility] Last Admin: 07/13/23 08:55 Dose: 100 mls/hr Documented By: SATINDER Insulin Glargine (Insulin Glargine,Hum.Rec.Anlog 100 Unit/Ml 10 Ml Vial) 15 unit SUBCUT DAILY [facility] Last Admin: 07/13/23 08:54 Dose: 15 unit Documented By: SATINDER Insulin Human Lispro (Insulin Lispro 100 Unit/Ml 3 Ml Vial) 0 unit SUBCUT QIDACHS [facility]; Protocol Last Admin: 07/13/23 08:53 Dose: 4 unit Documented By: SATINDER Levothyroxine Sodium (Levothyroxine Sodium 150 Mcg Tablet) 150 mcg PO DAILY@0600 [facility] Last Admin: 07/13/23 06:44 Dose: 150 mcg Documented By: ROCÍO Lisinopril (Lisinopril 10 Mg Tablet) 10 mg PO DAILY [facility]; Protocol Last Admin: 07/13/23 08:55 Dose: 10 mg Documented By: SATINDER Magnesium Hydroxide (Milk Of Magnesia 30 Ml Oral.Susp) 30 ml PO DAILY PRN PRN Reason: Constipation Metformin HCl (Metformin Hcl 1,000 Mg Tablet) 1,000 mg PO BIDWM [facility] Last Admin: 07/13/23 08:54 Dose: 1,000 mg Documented By: SATINDER Ondansetron HCl (Ondansetron Hcl 4 Mg/2 Ml Vial) 4 mg IVPUSH Q8H PRN PRN Reason: Nausea and Vomiting Oxycodone HCl (Oxycodone Hcl Immed Release 5 Mg Tablet) 5 mg PO Q6H PRN PRN Reason: Pain, Severe (Pain Scale 7-10) Sodium Chloride (0.9 % Sodium Chloride Flush 3 Ml Syringe) [facility] Admin: 07/13/23 08:56 Dose: 3 ml Documented By: SATINDER Zolpidem Tartrate (Zolpidem Tartrate 5 Mg Tablet) 5 mg PO BEDTIME PRN PRN Reason: Insomnia Labs 07/11/23 05:50 07/11/23 05:50 Labs: Laboratory Results - last 24 hr 07/12/23 07/12/23 07/12/23 11:23 16:27 20:18 POC Glucose 304 H 267 H 262 H 07/13/23 07:14 POC Glucose 205 H Procedures Date of Service Date of Service: 07/13/23 Progress Note: A&P Time Spent With Patient Time: Total time managing care of this patient today ____ minutes. Quality Stroke Does the patient have a stroke diagnosis?: No VTE Prior VTE?: No VTE Risk Level:: Surgical - moderate VTE Device Contraindication: N/A - Device Ordered VTE Drug Contraindication: N/A - Med Ordered
[2023-07-13 11:16] LABS: Glucose, Whole Blood 294 mg/dL (60-115)
[2023-07-13] MEDS: Enoxaparin Sodium 40 MG/0.4 ML SYRINGE SUBCUT (12:41)
--- NOTE | 2023-07-13 14:13 | HO.PM.IMPN ---
Subjective Subjective Date of Service: 07/13/23 Interval History: Continues to tolerate wound VAC. No acute issues Review of Systems Denies chest pain Denies shortness of breath Denies nausea vomiting diarrhea Denies fever chills Physical Exam Vital Signs: Vital Signs: Last Vital Signs Temp 96.8 F 07/13/23 07:16 Pulse 72 07/13/23 07:16 Resp 18 07/13/23 07:16 BP 113/65 07/13/23 07:16 Pulse Ox 99 07/13/23 07:16 O2 Del Method Nasal Cannula 07/13/23 07:16 O2 Flow Rate 3 07/13/23 07:16 BMI result Body Mass Index 37.8 Const: Other: Awake alert no acute distress Resp: Other: Clear to auscultation bilaterally no rales rhonchi or wheezes Cardio: Other: No S4; positive S1-S2; no S3 murmurs rubs or gallops GI: Other: Soft nontender nondistended normoactive bowel sounds Extrem: Other: Wound VAC right lower extremity Objective Data Active Medications Amlodipine Besylate (Amlodipine Besylate 10 Mg Tablet) 10 mg PO DAILY [facility]; Protocol Last Admin: 07/13/23 08:54 Dose: 10 mg Documented By: SATINDER Atorvastatin Calcium (Atorvastatin Calcium 20 Mg Tablet) 20 mg PO BEDTIME [facility] Last Admin: 07/12/23 20:26 Dose: 20 mg Documented By: DONALD Dextrose (Dextrose 50 % 25 Gm/50 Ml Syringe) 25 gm IVPUSH Q15M PRN; Protocol PRN Reason: per Hypoglycemia Standing Ord. Ezetimibe (Ezetimibe 10 Mg Tablet) 10 mg PO DAILY [facility] Last Admin: 07/13/23 08:54 Dose: 10 mg Documented By: SATINDER Enoxaparin Sodium (Enoxaparin Sodium 40 Mg/0.4 Ml Syringe) 40 mg SUBCUT Q24H [facility] Last Admin: 07/13/23 12:41 Dose: 40 mg Documented By: SATINDER Escitalopram Oxalate (Escitalopram Oxalate 10 Mg Tablet) 10 mg PO DAILY [facility] Last Admin: 07/13/23 08:55 Dose: 10 mg Documented By: SATINDER Fenofibrate (Fenofibrate 54 Mg Tablet) 54 mg PO DAILY [facility] Last Admin: 07/13/23 08:55 Dose: 54 mg Documented By: SATINDER Gabapentin (Gabapentin 100 Mg Capsule) 100 mg PO TID [facility] Last Admin: 07/13/23 08:55 Dose: 100 mg Documented By: SATINDER Glucose (Glucose Gel 15 Gm Gel..Gram.) 15 gm PO Q15M PRN; Protocol PRN Reason: per Hypoglycemia Standing Ord. Hydromorphone HCl (Hydromorphone Hcl 1 Mg/Ml Syringe) 0.5 mg IVPUSH Q4H PRN; Protocol PRN Reason: Pain, Severe (Pain Scale 7-10) Piperacillin Sod/Tazobactam (Sod 3.375 gm/ Sodium Chloride) 50 mls @ 100 mls/hr IV Q6H [facility] Last Infusion: 07/13/23 09:37 Dose: Infused Documented By: SATINDER Insulin Glargine (Insulin Glargine,Hum.Rec.Anlog 100 Unit/Ml 10 Ml Vial) 15 unit SUBCUT DAILY [facility] Last Admin: 07/13/23 08:54 Dose: 15 unit Documented By: SATINDER Insulin Human Lispro (Insulin Lispro 100 Unit/Ml 3 Ml Vial) 0 unit SUBCUT QIDACHS [facility]; Protocol Last Admin: 07/13/23 12:40 Dose: 6 unit Documented By: SATINDER Levothyroxine Sodium (Levothyroxine Sodium 150 Mcg Tablet) 150 mcg PO DAILY@0600 [facility] Last Admin: 07/13/23 06:44 Dose: 150 mcg Documented By: ROCÍO Lisinopril (Lisinopril 10 Mg Tablet) 10 mg PO DAILY [facility]; Protocol Last Admin: 07/13/23 08:55 Dose: 10 mg Documented By: SATINDER Magnesium Hydroxide (Milk Of Magnesia 30 Ml Oral.Susp) 30 ml PO DAILY PRN PRN Reason: Constipation Metformin HCl (Metformin Hcl 1,000 Mg Tablet) 1,000 mg PO BIDWM [facility] Last Admin: 07/13/23 08:54 Dose: 1,000 mg Documented By: SATINDER Ondansetron HCl (Ondansetron Hcl 4 Mg/2 Ml Vial) 4 mg IVPUSH Q8H PRN PRN Reason: Nausea and Vomiting Oxycodone HCl (Oxycodone Hcl Immed Release 5 Mg Tablet) 5 mg PO Q6H PRN PRN Reason: Pain, Severe (Pain Scale 7-10) Sodium Chloride (0.9 % Sodium Chloride Flush 3 Ml Syringe) 3 ml IVFLUSH QSHIFT [facility] Last Admin: 07/13/23 08:56 Dose: 3 ml Documented By: SATINDER Zolpidem Tartrate (Zolpidem Tartrate 5 Mg Tablet) 5 mg PO BEDTIME PRN PRN Reason: Insomnia Labs 07/11/23 05:50 07/11/23 05:50 Labs: Laboratory Results - last 24 hr 07/12/23 07/12/23 07/13/23 16:27 20:18 07:14 POC Glucose 267 H 262 H 205 H 07/13/23 11:08 POC Glucose 294 H Assessment and Plan (1) Status post transmetatarsal amputation of right foot: Status: Acute Plan 52-year-old male with insulin-dependent type 2 diabetes, congestive heart failure, proteinuria, hyperlipidemia, hypertension, autoimmune hypothyroidism, with chronic diabetic foot ulcer of the right foot admitted to general surgery for TMA R foot. 1.Chronic non healing diabetic foot ulcer s/p R TMA -plan per general surgery 2.Insulin-dependent type 2 diabetes -control improved with metformin -lispro correctional scale -adjust as indicated 3.HTN -acceptable control on current therapies -adjust as indicated Quality Stroke Does the patient have a stroke diagnosis?: No VTE Prior VTE?: No VTE Risk Level:: Surgical - moderate VTE Device Contraindication: N/A - Device Ordered VTE Drug Contraindication: N/A - Med Ordered
[2023-07-13 15:40] VITALS: BP 139/72; PULSE 77; RESP 18; TEMP 36.2; O2SAT 99
[2023-07-13 16:23] LABS: Glucose, Whole Blood 234 mg/dL (60-115)
[2023-07-13 19:49] VITALS: BP 113/63; PULSE 74; RESP 18; TEMP 36; O2SAT 98
[2023-07-13] MEDS: Atorvastatin Calcium 20 MG TABLET PO (20:09)
[2023-07-13 20:36] LABS: Glucose, Whole Blood 177 mg/dL (60-115)
[2023-07-14 00:16] VITALS: BP 105/67; PULSE 77; RESP 18; TEMP 36.3; O2SAT 99
[2023-07-14] MEDS: Piperacillin Sodium/Tazobactam 3.375 GM in 0.9 % Sodium Chloride 50 ML IV ×4 (03:43→21:50)
[2023-07-14] MEDS: Levothyroxine Sodium 150 MCG TABLET PO (06:29)
[2023-07-14 07:17] VITALS: BP 121/70; PULSE 74; RESP 18; TEMP 36; O2SAT 98
[2023-07-14 07:29] LABS: Glucose, Whole Blood 150 mg/dL (60-115)
[2023-07-14] MEDS: Ezetimibe 10 MG TABLET PO (08:13)
[2023-07-14] MEDS: metFORMIN HCl 1,000 MG TABLET 1000 MG PO ×2 (08:13→16:53)
[2023-07-14] MEDS: Escitalopram Oxalate 10 MG TABLET PO (08:13)
[2023-07-14] MEDS: Gabapentin 100 MG CAPSULE PO ×3 (08:13→21:51)
[2023-07-14] MEDS: lisinopriL 10 MG TABLET PO (08:13)
[2023-07-14] MEDS: Fenofibrate 54 MG TABLET PO (08:13)
[2023-07-14] MEDS: 0.9 % Sodium Chloride Flush 3 ML SYRINGE IVFLUSH ×3 (08:13→21:51)
[2023-07-14] MEDS: amLODIPine Besylate 10 MG TABLET PO (08:14)
[2023-07-14] MEDS: Insulin Glargine,Hum.rec.anlog 100 UNIT/ML 10 ML VIAL 15 UNIT SUBCUT (08:14)
--- NOTE | 2023-07-14 10:14 | PM.PNGS ---
Subjective Subjective Date of Service: 07/14/23 Interval history: no complaints says he feels well no events reported by nurse Physical Exam Vital Signs: Vital Signs: Last Vital Signs Temp 96.8 F 07/14/23 07:17 Pulse 74 07/14/23 07:17 Resp 18 07/14/23 07:17 BP 121/70 07/14/23 07:17 Pulse Ox 98 07/14/23 07:17 O2 Del Method Room Air 07/14/23 07:17 O2 Flow Rate 3 07/13/23 07:16 BMI result Body Mass Index 37.8 Const: General: comfortable and no acute distress Resp: Effort & Inspection: normal respiratory effort Cardio: Rate: regular rate GI: Palpation (GI): Soft to palpation Extrem: Other: right foot TMA - woundvac in place, working well, seal intact Objective Data Active Medications Amlodipine Besylate (Amlodipine Besylate 10 Mg Tablet) 10 mg PO DAILY [facility]; Protocol Last Admin: 07/14/23 08:14 Dose: 10 mg Documented By: SATINDER Atorvastatin Calcium (Atorvastatin Calcium 20 Mg Tablet) 20 mg PO BEDTIME [facility] Last Admin: 07/13/23 20:09 Dose: 20 mg Documented By: FLAKITO Dextrose (Dextrose 50 % 25 Gm/50 Ml Syringe) 25 gm IVPUSH Q15M PRN; Protocol PRN Reason: per Hypoglycemia Standing Ord. Ezetimibe (Ezetimibe 10 Mg Tablet) 10 mg PO DAILY [facility] Last Admin: 07/14/23 08:13 Dose: 10 mg Documented By: SATINDER Enoxaparin Sodium (Enoxaparin Sodium 40 Mg/0.4 Ml Syringe) 40 mg SUBCUT Q24H [facility] Last Admin: 07/13/23 12:41 Dose: 40 mg Documented By: SATINDER Escitalopram Oxalate (Escitalopram Oxalate 10 Mg Tablet) 10 mg PO DAILY [facility] Last Admin: 07/14/23 08:13 Dose: 10 mg Documented By: SATINDER Fenofibrate (Fenofibrate 54 Mg Tablet) 54 mg PO DAILY [facility] Last Admin: 07/14/23 08:13 Dose: 54 mg Documented By: SATINDER Gabapentin (Gabapentin 100 Mg Capsule) 100 mg PO TID [facility] Last Admin: 07/14/23 08:13 Dose: 100 mg Documented By: SATINDER Glucose (Glucose Gel 15 Gm Gel..Gram.) 15 gm PO Q15M PRN; Protocol PRN Reason: per Hypoglycemia Standing Ord. Hydromorphone HCl (Hydromorphone Hcl 1 Mg/Ml Syringe) 0.5 mg IVPUSH Q4H PRN; Protocol PRN Reason: Pain, Severe (Pain Scale 7-10) Piperacillin Sod/Tazobactam (Sod 3.375 gm/ Sodium Chloride) 50 mls @ 100 mls/hr IV Q6H [facility] Last Infusion: 07/14/23 08:59 Dose: Infused Documented By: SATINDER Insulin Glargine (Insulin Glargine,Hum.Rec.Anlog 100 Unit/Ml 10 Ml Vial) 15 unit SUBCUT DAILY [facility] Last Admin: 07/14/23 08:14 Dose: 15 unit Documented By: SATINDER Insulin Human Lispro (Insulin Lispro 100 Unit/Ml 3 Ml Vial) 0 unit SUBCUT QIDACHS [facility]; Protocol Last Admin: 07/14/23 07:22 Dose: Not Given Documented By: SATINDER Non-Admin Reason: No Insulin Coverage Levothyroxine Sodium (Levothyroxine Sodium 150 Mcg Tablet) 150 mcg PO DAILY@0600 [facility] Last Admin: 07/14/23 06:29 Dose: 150 mcg Documented By: ROCÍO Lisinopril (Lisinopril 10 Mg Tablet) 10 mg PO DAILY [facility]; Protocol Last Admin: 07/14/23 08:13 Dose: 10 mg Documented By: SATINDER Magnesium Hydroxide (Milk Of Magnesia 30 Ml Oral.Susp) 30 ml PO DAILY PRN PRN Reason: Constipation Metformin HCl (Metformin Hcl 1,000 Mg Tablet) 1,000 mg PO BIDWM [facility] Last Admin: 07/14/23 08:13 Dose: 1,000 mg Documented By: SATINDER Ondansetron HCl (Ondansetron Hcl 4 Mg/2 Ml Vial) 4 mg IVPUSH Q8H PRN PRN Reason: Nausea and Vomiting Oxycodone HCl (Oxycodone Hcl Immed Release 5 Mg Tablet) 5 mg PO Q6H PRN PRN Reason: Pain, Severe (Pain Scale 7-10) Sodium Chloride (0.9 % Sodium Chloride Flush 3 Ml Syringe) 3 ml IVFLUSH QSHIFT [facility] Last Admin: 07/14/23 08:13 Dose: 3 ml Documented By: SATINDER Zolpidem Tartrate (Zolpidem Tartrate 5 Mg Tablet) 5 mg PO BEDTIME PRN PRN Reason: Insomnia Labs 07/11/23 05:50 07/11/23 05:50 Labs: Laboratory Results - last 24 hr 07/13/23 07/13/23 07/13/23 11:08 16:19 20:32 POC Glucose 294 H 234 H 177 H 07/14/23 07:15 POC Glucose 150 H Procedures Date of Service Date of Service: 07/14/23 Progress Note: A&P Assessment and plan (1) S/P split thickness skin graft: Status: Acute Assessment and Plan: woundvac in place - working well, no leak he has no current complaints plan is to change woundvac tomorrow, poss. dc home stable since postop Time Spent With Patient Time: Total time managing care of this patient today ____ minutes. Quality Stroke Does the patient have a stroke diagnosis?: No VTE Prior VTE?: No VTE Risk Level:: Surgical - moderate VTE Device Contraindication: N/A - Device Ordered VTE Drug Contraindication: N/A - Med Ordered
[2023-07-14 11:15] LABS: Glucose, Whole Blood 261 mg/dL (60-115)
[2023-07-14] MEDS: Insulin Lispro 100 UNIT/ML 3 ML VIAL SUBCUT ×3 (11:23→21:51)
[2023-07-14] MEDS: Enoxaparin Sodium 40 MG/0.4 ML SYRINGE SUBCUT (11:24)
--- NOTE | 2023-07-14 13:50 | HO.PM.IMPN ---
Subjective Subjective Date of Service: 07/14/23 Interval History: No acute issues overnight. Remains tolerant of wound VAC. No complaints of pain Review of Systems Denies chest pain Denies shortness of breath Denies nausea vomiting diarrhea Denies fever chills Physical Exam Vital Signs: Vital Signs: Last Vital Signs Temp 96.8 F 07/14/23 07:17 Pulse 74 07/14/23 07:17 Resp 18 07/14/23 07:17 BP 121/70 07/14/23 07:17 Pulse Ox 98 07/14/23 07:17 O2 Del Method Room Air 07/14/23 07:17 O2 Flow Rate 3 07/13/23 07:16 BMI result Body Mass Index 37.8 Const: Other: Awake alert no acute distress Resp: Other: Clear to auscultation bilaterally no rales rhonchi or wheezes Cardio: Other: No S4; positive S1-S2; no S3 murmurs rubs or gallops GI: Other: Soft nontender nondistended normoactive bowel sounds Extrem: Other: Wound VAC right lower extremity Objective Data Active Medications Amlodipine Besylate (Amlodipine Besylate 10 Mg Tablet) 10 mg PO DAILY [facility]; Protocol Last Admin: 07/14/23 08:14 Dose: 10 mg Documented By: SATINDER Atorvastatin Calcium (Atorvastatin Calcium 20 Mg Tablet) 20 mg PO BEDTIME [facility] Last Admin: 07/13/23 20:09 Dose: 20 mg Documented By: FLAKITO Dextrose (Dextrose 50 % 25 Gm/50 Ml Syringe) 25 gm IVPUSH Q15M PRN; Protocol PRN Reason: per Hypoglycemia Standing Ord. Ezetimibe (Ezetimibe 10 Mg Tablet) 10 mg PO DAILY [facility] Last Admin: 07/14/23 08:13 Dose: 10 mg Documented By: SATINDER Enoxaparin Sodium (Enoxaparin Sodium 40 Mg/0.4 Ml Syringe) 40 mg SUBCUT Q24H [facility] Last Admin: 07/14/23 11:24 Dose: 40 mg Documented By: SATINDER Escitalopram Oxalate (Escitalopram Oxalate 10 Mg Tablet) 10 mg PO DAILY [facility] Last Admin: 07/14/23 08:13 Dose: 10 mg Documented By: SATINDER Fenofibrate (Fenofibrate 54 Mg Tablet) 54 mg PO DAILY [facility] Last Admin: 07/14/23 08:13 Dose: 54 mg Documented By: SATINDER Gabapentin (Gabapentin 100 Mg Capsule) 100 mg PO TID [facility] Last Admin: 07/14/23 08:13 Dose: 100 mg Documented By: SATINDER Glucose (Glucose Gel 15 Gm Gel..Gram.) 15 gm PO Q15M PRN; Protocol PRN Reason: per Hypoglycemia Standing Ord. Hydromorphone HCl (Hydromorphone Hcl 1 Mg/Ml Syringe) 0.5 mg IVPUSH Q4H PRN; Protocol PRN Reason: Pain, Severe (Pain Scale 7-10) Piperacillin Sod/Tazobactam (Sod 3.375 gm/ Sodium Chloride) 50 mls @ 100 mls/hr IV Q6H [facility] Last Infusion: 07/14/23 08:59 Dose: Infused Documented By: SATINDER Insulin Glargine (Insulin Glargine,Hum.Rec.Anlog 100 Unit/Ml 10 Ml Vial) 15 unit SUBCUT DAILY [facility] Last Admin: 07/14/23 08:14 Dose: 15 unit Documented By: SATINDER Insulin Human Lispro (Insulin Lispro 100 Unit/Ml 3 Ml Vial) 0 unit SUBCUT QIDACHS [facility]; Protocol Last Admin: 07/14/23 11:23 Dose: 6 unit Documented By: SATINDER Levothyroxine Sodium (Levothyroxine Sodium 150 Mcg Tablet) 150 mcg PO DAILY@0600 [facility] Last Admin: 07/14/23 06:29 Dose: 150 mcg Documented By: ROCÍO Lisinopril (Lisinopril 10 Mg Tablet) 10 mg PO DAILY [facility]; Protocol Last Admin: 07/14/23 08:13 Dose: 10 mg Documented By: SATINDER Magnesium Hydroxide (Milk Of Magnesia 30 Ml Oral.Susp) 30 ml PO DAILY PRN PRN Reason: Constipation Metformin HCl (Metformin Hcl 1,000 Mg Tablet) 1,000 mg PO BIDWM [facility] Last Admin: 07/14/23 08:13 Dose: 1,000 mg Documented By: SATINDER Ondansetron HCl (Ondansetron Hcl 4 Mg/2 Ml Vial) 4 mg IVPUSH Q8H PRN PRN Reason: Nausea and Vomiting Oxycodone HCl (Oxycodone Hcl Immed Release 5 Mg Tablet) 5 mg PO Q6H PRN PRN Reason: Pain, Severe (Pain Scale 7-10) Sodium Chloride (0.9 % Sodium Chloride Flush 3 Ml Syringe) 3 ml IVFLUSH QSHIFT [facility] Last Admin: 07/14/23 08:13 Dose: 3 ml Documented By: SATINDER Zolpidem Tartrate (Zolpidem Tartrate 5 Mg Tablet) 5 mg PO BEDTIME PRN PRN Reason: Insomnia Labs 07/11/23 05:50 07/11/23 05:50 Labs: Laboratory Results - last 24 hr 07/13/23 07/13/23 07/14/23 16:19 20:32 07:15 POC Glucose 234 H 177 H 150 H 07/14/23 11:04 POC Glucose 261 H Assessment and Plan (1) Type 2 diabetes mellitus with hyperosmolar hyperglycemic state (HHS): Status: Acute Plan 52-year-old male with insulin-dependent type 2 diabetes, congestive heart failure, proteinuria, hyperlipidemia, hypertension, autoimmune hypothyroidism, with chronic diabetic foot ulcer of the right foot admitted to general surgery for TMA R foot. 1.Chronic non healing diabetic foot ulcer s/p R TMA -plan per general surgery 2.Insulin-dependent type 2 diabetes -control improved with metformin -lispro correctional scale -adjust as indicated 3.HTN -acceptable control on current therapies -adjust as indicated Quality Stroke Does the patient have a stroke diagnosis?: No VTE Prior VTE?: No VTE Risk Level:: Surgical - moderate VTE Device Contraindication: N/A - Device Ordered VTE Drug Contraindication: N/A - Med Ordered
[2023-07-14 15:34] VITALS: BP 125/74; PULSE 72; RESP 17; TEMP 36.1; O2SAT 98
[2023-07-14 16:20] LABS: Glucose, Whole Blood 221 mg/dL (60-115)
[2023-07-14 19:53] VITALS: BP 103/65; PULSE 72; RESP 18; TEMP 36; O2SAT 97
[2023-07-14 20:37] LABS: Glucose, Whole Blood 206 mg/dL (60-115)
[2023-07-14] MEDS: Atorvastatin Calcium 20 MG TABLET PO (21:51)
[2023-07-15 03:48] VITALS: BP 100/55; PULSE 72; RESP 16; TEMP 36.1; O2SAT 99
[2023-07-15] MEDS: Piperacillin Sodium/Tazobactam 3.375 GM in 0.9 % Sodium Chloride 50 ML IV ×3 (03:58→14:11)
[2023-07-15] MEDS: Levothyroxine Sodium 150 MCG TABLET PO (06:17)
[2023-07-15 07:37] VITALS: BP 120/59; PULSE 71; RESP 16; TEMP 37; O2SAT 100
[2023-07-15 07:45] LABS: Glucose, Whole Blood 169 mg/dL (60-115)
[2023-07-15] MEDS: Insulin Glargine,Hum.rec.anlog 100 UNIT/ML 10 ML VIAL 15 UNIT SUBCUT (08:04)
[2023-07-15] MEDS: Insulin Lispro 100 UNIT/ML 3 ML VIAL SUBCUT ×2 (08:04→11:35)
[2023-07-15] MEDS: Escitalopram Oxalate 10 MG TABLET PO (08:04)
[2023-07-15] MEDS: Ezetimibe 10 MG TABLET PO (08:04)
[2023-07-15] MEDS: amLODIPine Besylate 10 MG TABLET PO (08:04)
[2023-07-15] MEDS: Gabapentin 100 MG CAPSULE PO ×2 (08:04→14:11)
[2023-07-15] MEDS: lisinopriL 10 MG TABLET PO (08:04)
[2023-07-15] MEDS: Fenofibrate 54 MG TABLET PO (08:04)
[2023-07-15] MEDS: metFORMIN HCl 1,000 MG TABLET 1000 MG PO (08:04)
[2023-07-15] MEDS: 0.9 % Sodium Chloride Flush 3 ML SYRINGE IVFLUSH (08:05)
[2023-07-15 11:05] LABS: Glucose, Whole Blood 237 mg/dL (60-115)
[2023-07-15] MEDS: Enoxaparin Sodium 40 MG/0.4 ML SYRINGE SUBCUT (11:35)
--- NOTE | 2023-07-15 11:53 | MHC.CM.PN ---
Addendum entered by Sarah Chery 07/15/23 14:04: Patient is discharged today. He will return via BLS to [facility]. 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 Original Note: IMM 07/15/23 Per MD rounds Surgery schedule to change wound vac today. Patient may return to [facility] later today. He will transport via S at discharge.
--- NOTE | 2023-07-15 13:06 | P.DS_ITS ---
DS: Providers Provider Date of Service: 07/15/23 Date of admission: 07/10/23 10:01 Primary care physician: Isai Reaves MD Admitting clinician: Bao Dempsey Consults: 07/10/23 20:55 Consult to Hospitalist Routine Comment: Consulting Provider: Hospitalist Reason For Exam: med management Discharging clinician: Bao Dempsey DS: Transfer Hospital Acceptance Reason for Transfer: Return to previous nursing care facility Name of Facility: [facility] DS: Diagnosis Discharge Diagnosis (1) Type 2 diabetes mellitus with hyperosmolar hyperglycemic state (HHS): Status: Acute (2) Diabetic foot ulcer: Status: Acute (3) Status post transmetatarsal amputation of right foot: Status: Acute DS: Summary Hospital Course Hospital Course: 52-year-old male patient with 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 Wounds were left open due to skin necrosis. Initially a wound VAC was placed however this was stopped due to abscess formation. He also underwent laparoscopic cholecystectomy for acute cholecystitis. He was admitted on 07/10/2023 for wound debridement and STSG to the right foot wound. He denies any significant pain from the wound. He is currently in a nursing home facility. On examination, he was found to have an open, granulating wound with no exposed bone or tendon, and callous around the margins. No evidence of infection was noted. He was taken to the OR on the day of surgery and admitted post op. A skin graft was taken from the right thigh and applied to the right foot. A wound vac was applied to the wound to assist in wound closure. He tolerated the procedure well with minimal pain. The wound vac dressing was changed on Saturday07/12/2023 and good adherence noted with the graft. The donor site was noted to be clean and intact. There was a foul odor noted however with the dressing change, therefore he was placed on IV antibiotics. On 07/15/2023, the wound vac was removed and complete graft loss was noted. The bossman were removed and wound cleaned with saline. The wound was then covered with silver alginate, 4x4 fluffed gauze and 4 inch Kerlex. Donor site was dressing was changed as well with an ABD pad and paper tape. Patient tolerated this well. He will be discharged to [facility] Nursing facility today Dressing instructions: 1. Right foot: change silver alginate dressing QOD and cover with 4x4 gauze and Kerlex. 2. Donor site, right thigh: Non adherent dressing followed by ABD pad QOD. Time spent discussing smoking cessation with patient: 3 to 10 minutes Status at Discharge Functional status at discharge: uses cane/walker Overall status at discharge: patient is not back to baseline Time Attestation Discharge coordination time: Less than 30 minutes Quality: Safe Use of Opioids Does Pt have an Active Cancer Diagnosis on the Problem List?: No Quality: Stroke Does the patient have a stroke diagnosis?: No Physical Exam Vital Signs: Vital Signs: Last Vital Signs Temp 98.6 F 07/15/23 07:37 Pulse 71 07/15/23 07:37 Resp 16 07/15/23 07:37 BP 120/59 L 07/15/23 07:37 Pulse Ox 100 07/15/23 07:37 O2 Del Method Room Air 07/15/23 07:37 O2 Flow Rate 3 07/13/23 07:16 BMI result Body Mass Index 37.8 Const: General: comfortable and no acute distress Nutritional Appearance: well nourished Orientation/consciousness: patient oriented x3 Limitations: ambulation with walker HEENT: Head: Yes normocephalic and Yes atraumatic Ears: hearing grossly normal bilaterally Neuro: General: patient oriented x3 Extrem: Other: Granulated wound at the site of transmetatarsal amputation, right foot. Skin graft failure noted with non-adherence of entire graft. Bossman removed and silver alginate dressings applied as noted above DS: Data Data Completed and Pending Completed studies during hospitalization [Text1]: Procedures Compression of Right Foot using Pressure Dressing (09/03/22) Detachment at Right Foot, Partial 1st Ray, Open Approach (09/03/22) Detachment at Right Foot, Partial 2nd Ray, Open Approach (09/03/22) Detachment at Right Foot, Partial 3rd Ray, Open Approach (09/03/22) Detachment at Right Foot, Partial 4th Ray, Open Approach (09/03/22) Detachment at Right Foot, Partial 5th Ray, Open Approach (09/03/22) Drainage of Right Foot Skin, External Approach (09/03/22) Excision of Right Foot Skin, External Approach (09/03/22) Insertion of Infusion Device into Superior Vena Cava, Percutaneous Approach (09/03/22) Resection of Gallbladder, Percutaneous Endoscopic Approach (10/13/22) Transfusion of Nonautologous Red Blood Cells into Peripheral Vein, Percutaneous Approach (10/13/22) Ultrasonography of Superior Vena Cava, Guidance (09/03/22) Labs on day of discharge: Laboratory Results - last 24 hr 07/14/23 07/14/23 07/15/23 16:16 20:33 07:40 POC Glucose 221 H 206 H 169 H 07/15/23 10:59 POC Glucose 237 H Discharge Plan Discharge Anticipated Discharge Date/Time: 07/15/23 12:58 Patient Disposition: Xfer Inpatient Rehab Fac Discharge Diagnosis: Diabetic foot ulcer, right foot Referrals: Isai Reaves MD [Primary Care Provider] - 1 Week Bao Dempsey MD [Physician] - 1 Week Discharge Medications: New (DME) dressing, collagen-silver 2 X 2.2 bandage See Rx Instructions .Route Qty: 50 0RF Rx Instructions: Apply to right foot wound with 4x4 and Kerlex QOD Continued (DME) FreeStyle Precision Gama Strips Strip See Rx Instructions .ROUTE .MEDSUPPLY Qty: 50 11RF Rx Instructions: As directed once daily (DME) FreeStyle Leonel 2 Sensor Kit See Rx Instructions .ROUTE .MEDSUPPLY Qty: 2 11RF Rx Instructions: As directed every 2 weeks (DME) right knee brace See Rx Instructions .Route .MEDSUPPLY Qty: 1 0RF Rx Instructions: As directed (DME) wrist splint bilateral See Rx Instructions .Route .MEDSUPPLY Qty: 2 0RF Rx Instructions: As directed (DME) high shower chair See Rx Instructions .Route .MEDSUPPLY Qty: 1 0RF Rx Instructions: As directed (DME) raised toilet seat See Rx Instructions .Route .MEDSUPPLY Qty: 1 0RF Rx Instructions: As directed metformin 500 mg tablet 1,000 mg PO BID ondansetron HCl 4 mg tablet 4 mg PO Q8H PRN (Reason: Nausea) simvastatin 40 mg tablet 40 mg PO BEDTIME amlodipine 10 mg tablet 10 mg PO DAILY lisinopril 10 mg tablet 10 mg PO DAILY levothyroxine 150 mcg tablet 150 mcg PO DAILY gabapentin 100 mg capsule 100 mg PO TID escitalopram oxalate 10 mg tablet 10 mg PO DAILY ezetimibe 10 mg tablet 10 mg PO DAILY fenofibrate 54 mg tablet 54 mg PO DAILY insulin degludec [Tresiba FlexTouch U-200] 200 unit/mL (3 mL) insulin pen 20 unit subcut QAM cholecalciferol (vitamin D3) 50 mcg (2,000 unit) capsule 50 mcg PO DAILY acetaminophen 325 mg Tablet 650 mg PO Q4H PRN (Reason: Fever Or Pain) magnesium hydroxide [Milk of Magnesia] 400 mg/5 mL Suspension 30 ml PO DAILY PRN (Reason: Constipation) bisacodyl 10 mg Suppository 10 mg [place] DAILY PRN (Reason: Constipation) Fleet Enema 19-7 gram/118 mL Enema 118 ml [place] DAILY PRN (Reason: Constipation) Saccharomyces boulardii [Probiotic (S.boulardii)] 250 mg Capsule 250 mg PO BID Rx Instructions: UNTIL 11/02/22 ammonium lactate 12 % Cream 1 appl TOPICAL DAILY Rx Instructions: left foot Santyl 250 unit/gram Ointment 1 appl TOPICAL Q2D Rx Instructions: right foot insulin lispro 100 unit/mL Solution See Protocol SUBCUT QISTEVIES Protocol: Insulin Correction Scale Less than or equal to 110 ---- Give (units): 0 111 to 150 Give (units): 0 151 to 200 Give (units): 2 201 to 250 Give (units): 4 251 to 300 Give (units): 6 301 to 350 Give (units): 8 Greater than 350 Give (units): 10 Call MD if Blood Glucose > : 350 Trulicity 3 mg/0.5 mL Pen Injector 3 mg SUBCUT TU Discharge Orders: Discharge Order (Routine); Ordered 07/15/23 Ordered By: Bao Dempsey Diet: Diabetic diet Activity on Discharge: Use cane or walker Stand Alone Forms: Patient Portal Discharge page Care Plan Goals: Heal the right foot wound Health Concerns: Diabetes, Osteomyelitis Plan of Treatment: Attempted skin graft, graft failure Now QOD dressing changes to right foot with silver alginate, 4x4 gauze and 4 inch Kerlex. QOD dressing change to right lateral thigh with ABD pad and paper tape. Assessment: Non-healing ulcer right foot
[2023-07-15 16:00] VITALS: BP 135/71; PULSE 74; RESP 18; TEMP 36.4; O2SAT 99
== END 2023-07-15 16:45 | DRG 465 ==
LOC: HO.SSSA 10:04 → HO.S3 13:14
PROVIDERS: Nurse Practitioner; Physician Assistant; Admitting Provider Surgery; PCP Family Medicine; Visit Provider Surgery
PROC: 0HRMX74 Replacement of Right Foot Skin with Autologous Tissue Substitute, Partial Thickness, External Approach (ICD-10-PCS; principal; 2023-07-10 09:40)
DX: T87.81 Dehiscence of amputation stump (principal); I10 Essential (primary) hypertension; E11.65 Type 2 diabetes mellitus with hyperglycemia; E78.5 Hyperlipidemia, unspecified; E06.3 Autoimmune thyroiditis; Z79.4 Long term (current) use of insulin; Z79.84 Long term (current) use of oral hypoglycemic drugs; Z79.85 Long-term (current) use of injectable non-insulin antidiabetic drugs; Z79.899 Other long term (current) drug therapy
CPT/HCPCS: 36415; 80048; 82947; 83036; 85025; 85027; 93005; 99024; J0131; J0665; J0690; J1100; J1650; J2250; J2371; J2405; J2543; J2704; J3010; J7120

== ENCOUNTER → 2023-07-10 10:01 | Outpatient (BNV) | payer MEDICARE, MEDICAID, SELFPAY | PROVIDERS: Admitting Provider Surgery; PCP Family Medicine; Visit Provider Physician Assistant | DX: E11.00 Type 2 diabetes mellitus with hyperosmolarity without nonketotic hyperglycemic-hyperosmolar coma (NKHHC) (principal); E11.65 Type 2 diabetes mellitus with hyperglycemia | CPT/HCPCS: 99222; 99232; 99233 ==

== ENCOUNTER → 2023-07-10 10:01 | Outpatient (BNV) | payer MEDICARE, MEDICAID, SELFPAY | PROVIDERS: Admitting Provider Surgery; PCP Family Medicine; Visit Provider Surgery | DX: E11.00 Type 2 diabetes mellitus with hyperosmolarity without nonketotic hyperglycemic-hyperosmolar coma (NKHHC) (principal); E11.65 Type 2 diabetes mellitus with hyperglycemia; E11.621 Type 2 diabetes mellitus with foot ulcer; L97.509 Non-pressure chronic ulcer of other part of unspecified foot with unspecified severity; Z89.431 Acquired absence of right foot | CPT/HCPCS: 15004; 15120; 99024 ==

== ENCOUNTER 2023-07-18 15:04 | Inpatient (IN) | payer MEDICARE, MEDICAID, SELFPAY ==
--- NOTE | ~2023-07-18 | CT_ITS ---
EXAMINATION: CT ABDOMEN AND PELVIS WITHOUT CONTRAST CLINICAL INFORMATION: Abdominal pain COMPARISON: CT abdomen pelvis 10/13/2022 and abdominal ultrasound 10/13/2022. TECHNIQUE: Multidetector volumetric imaging was performed from the superior aspect of the liver through the pubic symphysis. Sagittal and coronal reformatted images were obtained on the technologist's workstation. This CT examination was performed using dose optimization techniques as appropriate, variously including the following: *Automated exposure control *Adjustment of mA and/or kV according to patient size (this includes techniques or standardized protocols for targeted exams where dose is matched to indication/reason for exam; i.e. extremities or head) *Use of iterative reconstruction technique DLP: 911 mGy-cm FINDINGS: LUNG BASES: The visualized lung bases are unremarkable. Mild bilateral gynecomastia. LIVER, GALLBLADDER, AND BILIARY TREE: The liver is normal in size, shape, and attenuation. No focal hepatic lesion or biliary ductal dilatation is present. Status post cholecystectomy with surgical clips present. PANCREAS: Unremarkable. SPLEEN: Unremarkable. ADRENAL GLANDS: Unremarkable. KIDNEYS AND URETERS: The kidneys are normal in size, shape, and attenuation. No hydronephrosis, hydroureter, or calculi seen. No perinephric stranding. BLADDER: The bladder is is not well-distended. The bladder wall is mild to moderate moderately thickened diffusely. GASTROINTESTINAL TRACT: The stomach is nondistended. No evidence of small or large bowel obstruction. Mild circumferential thickening is identified in the distal sigmoid colon and rectum. No abnormal stool burden. The appendix extends into the right upper quadrant without signs of appendicitis. ABDOMINAL WALL: No significant hernia is appreciated. LYMPH NODES: Scattered lymph nodes are seen adjacent to the distal abdominal aorta, iliac vessels and in both inguinal regions without significant interval changes. VASCULAR: Unremarkable. PELVIC VISCERA: The prostate and seminal vesicles are unremarkable. OSSEOUS STRUCTURES: No acute osseous findings. CT/CT abdomen pelvis wo IV con IMPRESSION: 1. No cause for abdominal pain. 2. Mild to moderate circumferential bladder wall thickening which could be related to bladder outlet obstruction or urinary tract infection. 3. Mild thickening of the rectosigmoid colon. The findings are nonspecific and could reflect distal proctocolitis, correlate with the clinical exam.
--- NOTE | ~2023-07-18 | XR_ITS ---
EXAMINATION: XR CHEST CLINICAL INFORMATION: Weakness COMPARISON: 09/03/2022 TECHNIQUE: Frontal view of the chest was obtained. FINDINGS: There is mild elevation of the right hemidiaphragm and mild peribronchial thickening. No other significant abnormality is noted involving the heart, lungs, mediastinum, bony thorax or soft tissues. XR/XR chest 1V IMPRESSION: Mild peribronchial thickening. No acute intrathoracic disease.
--- NOTE | ~2023-07-18 | XR_ITS ---
EXAMINATION: XR FOOT, RIGHT CLINICAL INFORMATION: Concern for osteomyelitis COMPARISON: Right foot radiograph 09/03/2022 TECHNIQUE: AP, lateral, and oblique views of the right foot. FINDINGS: Postsurgical changes of proximal transmetatarsal amputation. There is subtle erosive changes involving the anteromedial aspect of the navicular bone at the naviculocuneiform joint. Additional jagged appearance of the cortex at the amputation site of the first metatarsal is likely related to bony remodeling. Mild subcutaneous swelling is present at the distal amputation site without large soft tissue defect. No subcutaneous gas. No radiopaque foreign bodies. XR/XR foot RT 2V IMPRESSION: Postsurgical changes of right transmetatarsal amputation with associated bony remodeling. There is no definite evidence of bony erosive changes at the amputation yajaira to suggest osteomyelitis. However, there is bony erosion involving the anteromedial navicular bone at the naviculocuneiform joint, concerning for osteomyelitis. Recommend further evaluation with MRI foot without contrast.
--- NOTE | ~2023-07-18 | MR_ITS ---
EXAMINATION: MRI FOOT WITHOUT CONTRAST, RIGHT CLINICAL INFORMATION: Assess anteromedial navicular osteomyelitis. COMPARISON: Radiographs 07/18/2023. MRI 09/05/2022. TECHNIQUE: MRI without contrast is performed on the right foot. Image quality is degraded by patient motion artifact. FINDINGS: Post surgical changes related to transmetatarsal amputation. There is intermediate signal and mild edema of the soft tissues distal to the amputations. No focal fluid collection to suggest an abscess. There is marrow edema and loss of T1 fatty marrow signal at the distal aspects of the 1st, 2nd, 3rd, and 5th metatarsal remnants concerning for osteomyelitis. There are no findings of concern of the navicular or naviculocuneiform joints as questioned on the recent radiographs. MR/MR foot RT wo con IMPRESSION: Post surgical changes related to transmetatarsal amputation. There is marrow edema and loss of T1 fatty marrow signal at the distal aspects of the 1st, 2nd, 3rd, and 5th metatarsal remnants concerning for osteomyelitis. No abnormality of the navicular or the naviculocuneiform joints.
[2023-07-18 15:40] VITALS: BP 120/89; PULSE 88; O2SAT 100; BMI 38.7
--- NOTE | 2023-07-18 15:53 | PC.NURSE ---
had farm equipment mechanic apprentice at bedside for assessment.
[2023-07-18 16:02] VITALS: BP 148/65; PULSE 88; RESP 14; TEMP 36.7; O2SAT 99
--- NOTE | 2023-07-18 16:24 | ECG_ITS ---
Test Reason : WEAKNESS Blood Pressure : / mmHG Vent. Rate : 088 BPM Atrial Rate : 088 BPM P-R Int : 180 ms QRS Dur : 092 ms QT Int : 370 ms P-R-T Axes : 051 -13 037 degrees QTc Int : 447 ms Normal sinus rhythm Incomplete right bundle branch block Borderline ECG When compared with ECG of 10-JUL-2023 09:07, No significant change was found Referred By: David Cornelius Electronically Signed By:Deon Goldberg
--- NOTE | 2023-07-18 16:57 | ED_ITS ---
HPI - General Adult General Chief complaint: Recheck/Abnormal Lab/Rx Stated complaint: Abd pain Time Seen by Provider: 07/18/23 15:58 Source: patient, RN notes reviewed, old records reviewed and parts interpreter Mode of arrival: EMS Limitations: language barrier History of Present Illness HPI narrative: 52-year-old male with past medical history significant for uncontrolled diabetes, autoimmune thyroiditis, hypertension, hyperlipidemia, recent failed skin graft of the right lower extremity stump. Patient reports abdominal pain and fevers subjectively approximately for the last week. He is afebrile on arrival. He endorses generalized abdominal pain with vomiting and diarrhea. Apparently he had labs earlier today showing a creatinine of 7.90. Per outpatient records 2 weeks ago his creatinine was normal at 1.8 The patient is not on dialysis He endorses coughing and shortness of breath as well. On arrival to the ED, the patient is again afebrile, his heart rate is 88, respiratory rate is 18, pulse ox 99% on room air his blood pressure is 140/65. Related Data Home Medications Medication Instructions Recorded Confirmed metformin 500 mg tablet 1,000 mg PO BID 06/20/22 07/18/23 amlodipine 10 mg tablet 10 mg PO DAILY 10/12/22 07/18/23 cholecalciferol (vitamin D3) 50 50 mcg PO DAILY 10/12/22 07/18/23 mcg (2,000 unit) capsule escitalopram oxalate 10 mg tablet 10 mg PO DAILY 10/12/22 07/18/23 ezetimibe 10 mg tablet 10 mg PO DAILY 10/12/22 07/18/23 fenofibrate 54 mg tablet 54 mg PO DAILY 10/12/22 07/18/23 gabapentin 100 mg capsule 100 mg PO TID 10/12/22 07/18/23 insulin degludec 200 unit/mL (3 20 unit subcut QAM 10/12/22 07/18/23 mL) subcutaneous pen (Tresiba FlexTouch U-200 insulin) levothyroxine 150 mcg tablet 150 mcg PO DAILY 10/12/22 07/18/23 lisinopril 10 mg tablet 10 mg PO DAILY 10/12/22 07/18/23 ondansetron HCl 4 mg tablet 4 mg PO Q8H PRN Nausea 10/12/22 07/18/23 simvastatin 40 mg tablet 40 mg PO BEDTIME 10/12/22 07/18/23 Saccharomyces boulardii 250 mg 250 mg PO BID 10/13/22 07/18/23 capsule (Probiotic (S.boulardii)) acetaminophen 325 mg tablet 650 mg PO Q4H PRN Fever Or Pain 10/13/22 07/18/23 bisacodyl 10 mg rectal suppository 10 mg [place] DAILY PRN Constipation 10/13/22 07/18/23 magnesium hydroxide 400 mg/5 mL 30 ml PO DAILY PRN Constipation 10/13/22 07/18/23 oral suspension (Milk of Magnesia) sodium phosphates 19 gram-7 118 ml [place] DAILY PRN Constipation 10/13/22 07/18/23 gram/118 mL enema (Fleet Enema) ammonium lactate 12 % topical cream 1 appl topical DAILY 07/10/23 07/18/23 dulaglutide 3 mg/0.5 mL 3 mg subcut TU 07/10/23 07/18/23 subcutaneous pen injector (Trulicity) insulin lispro 100 unit/mL See Protocol subcut QIDACHS 07/10/23 07/18/23 subcutaneous solution famotidine 20 mg tablet 20 mg PO BID 07/18/23 07/18/23 loperamide 2 mg tablet 2 mg PO Q4H PRN Loose Stool 07/18/23 07/18/23 Previous Rx's Medication Instructions Recorded blood sugar diagnostic (FreeStyle #50 ea 05/30/21 Precision Gama Strips) flash glucose sensor (FreeStyle #2 ea 06/01/21 Leonel 2 Sensor kit) right knee brace #1 ea 10/09/21 wrist splint bilateral #2 ea 10/09/21 high shower chair #1 ea 10/31/21 raised toilet seat #1 ea 11/01/21 dressing, collagen-silver 2 X 2.2 #50 ea 07/15/23 Allergies Allergy/AdvReac Type Severity Reaction Status Date / Time atorvastatin [ATORVASTATIN] Allergy Unknown skin Verified 07/10/23 09:51 eruption Review of Systems 2 Constitutional: Constitutional: Reports body ache(s), Reports chills, Reports fever(s) and Reports malaise Eyes: Eyes: Denies blurry vision ENT: Denies sore throat Cardiovascular: Cardiovascular: Denies chest pain and Reports dyspnea Respiratory: Respiratory: Reports cough and Reports dyspnea Gastrointestinal: Gastrointestinal: Reports abdominal pain, Reports nausea and Reports vomiting Musculoskeletal: Musculoskeletal: Denies back pain Integumentary/Breasts: Skin/Breast: Reports wounds PMFSH Past Medical History Medical History Nausea and vomiting Bacteremia Bilateral hand pain Right knee pain Hypovitaminosis D Right foot pain Left foot pain Infection of penis Hyponatremia Hyperkalemia Diabetic ketoacidosis Acute kidney injury Autoimmune thyroiditis Obesity due to excess calories Type 2 diabetes mellitus with hyperglycemia, with long-term current use of insulin CHF (congestive heart failure) Cognitive developmental delay Proteinuria Type 2 diabetes mellitus with other diabetic kidney complication Essential hypertension Hyperlipidemia LDL goal <100 Edema Hyperlipidemia Cataracts, both eyes HTN (hypertension) Hypothyroid Diabetes Surgical History Hx laparoscopic cholecystectomy (10/16/22) 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) Hx of removal of cyst Hx of cataract surgery Family History Family History Father HTN (hypertension) Mother Diabetes mellitus Maternal Grandmother Diabetes mellitus Social History Social History Household Members: None Household Members Other:: SNF Housing: Other Housing Other:: SNF Do you presently have visiting nurse or other home services: Yes Unable to assess alcohol history related to: Unknown Alcohol intake: never Patient Tobacco Use Status: Never used Tobacco Smoked in Last 30 Days: No e-Cigarette/Vaping Use: Never Used Second Hand Smoke Exposure: No Use of substances other than those prescribed or required for medical reasons: No Substance Use Type: Caffiene Advance Directives: Yes Advance Directives on File: Yes Advance Directives Date on File: 09/10/22 service: No Current occupational status: disabled Cognitive needs: Yes Hearing needs: No Vision needs: No Physical Exam ED Vital Signs: Vital Signs - 24 hr 07/18/23 16:02 07/18/23 18:55 07/18/23 19:21 Temperature 98.1 F 97.8 F Pulse Rate 88 86 84 Respiratory Rate 14 16 16 Blood Pressure 148/65 H 104/53 L 105/54 L Pulse Oximetry 99 98 98 Oxygen Delivery Method Room Air Room Air Room Air 07/18/23 22:30 Temperature 97.5 F Pulse Rate 78 Respiratory Rate 14 Blood Pressure 96/45 L Pulse Oximetry 97 Oxygen Delivery Method Room Air BMI result Body Mass Index 38.7 Const General: comfortable, no acute distress, alert and awake Nutritional Appearance: well nourished Orientation/consciousness: patient oriented x3 HENMT Head: Yes normocephalic and Yes atraumatic Eyes Eyelids: Yes eyelids normal Conjunctivae: conjunctivae normal Sclerae: sclerae normal Corneas: corneas normal Pupils: Equal, round and reactive pupils present EOM: EOMs intact bilaterally Neck Neck: Yes full ROM Resp Effort & Inspection: normal respiratory effort, able to speak in complete sentences and not labored GI Inspection: No distended Palpation (GI): Soft to palpation, not firm, Tenderness to palpation present (GI) (Abdomen is soft, nondistended, tender without guarding), no guarding and not rigid Skin Other: She has a 6 cm area diameter open wound to the right lower extremity stump. He has half of his foot with the toes surgically amputated. There is minimal granulomatous tissue and surrounding erythema, no significant biliary drainage or foul-smelling odor. General skin exam: elasticity normal Neuro General: patient oriented x3 Cranial nerves: Yes Equal, round and reactive pupils present and Yes Bilaterally intact EOM present Cognition (Neuro): normal cognition Course Reevaluation(s) Reevaluation #1: Received call from the lab the patient has a critical creatinine of 8.20. He also had a critical lactate of 4.3. I ordered a 2 L of IV fluids. At the moment, there is no obvious source of infection, the area is skin graft does not appear to be cellulitic. He has been on vancomycin which could explain the creatinine elevation, we will get a random vancomycin level. His potassium is 5.7. There are no EKG changes. Will give a dose of Lokelma. The IV fluids she would also help decrease the potassium level. Time: 18:01 Reevaluation #2: Discussed with Nephrology, Dr. Alonzo who recommends Phillip catheter. The patient has thus far been resistant to catheterization but has agreed. A Phillip catheter will be inserted. Time: 21:30 Reevaluation #3: Patient's x-ray shows concern for osteomyelitis about the navicular bone. Patient is high risk for osteomyelitis and lactate of 4.3. Will treat with vancomycin and Zosyn. Given the renal failure I discussed my attending who does recommend continuing vancomycin I also discussed with the on call pharmacy technician who recommends vancomycin 1500 mg and the patient will be followed closely Time: 21:49 Medications Administered Discontinued Medications Generic Name Dose Route Start Last Admin Trade Name Freq PRN Reason Stop Dose Admin Sodium Chloride 1,000 mls @ 999 mls/hr 07/18/23 16:30 07/18/23 20:54 Ns IV 07/18/23 17:30 Infused .Q1H1M CRISPIN Infusion Sodium Chloride 1,000 mls @ 999 mls/hr 07/18/23 18:00 07/18/23 20:54 Ns IV 07/18/23 19:00 Infused .Q1H1M CRISPIN Infusion Piperacillin Sod/Tazobactam 50 mls @ 100 mls/hr 07/18/23 21:45 07/18/23 22:24 Sod 3.375 gm/ Sodium Chloride IV 07/18/23 22:14 Infused ONCE ONE Infusion Ondansetron HCl 4 mg 07/18/23 16:06 07/18/23 17:15 Ondansetron Odt 4 Mg Tab.Rapdis TRANSLINGU 07/18/23 16:07 4 mg ONCE ONE Administration Sodium Zirconium Cyclosilicate 5 gm 07/18/23 17:58 07/18/23 18:11 Sodium Zirconium Cyclosilicate 5 Gm Powd.Pack PO 07/18/23 17:59 5 gm ONCE ONE Administration Medical Decision Making Medical Decision Making [facility] Narrative: 52-year-old male presents for evaluation of multiple complaints including subjective fevers, abdominal pain, vomiting, cough and shortness of breath. Plan for broad workup including labs, viral swabs, chest x-ray. Per outpatient labs he reportedly had a creatinine of 7.90 which would be new for him. Will get an EKG to assess for change related hyperkalemia while we are awaiting labs. Patient will treat with IV fluids. I added on blood cultures and lactic acid. Further workup as indicated. The patient is quite well appearing at this time. Patient's right lower extremity wound does not appear acutely infected Differential Diagnosis Differential Diagnoses: The differential diagnosis associated with the presentation includes Acute kidney injury Renal failure Hyperkalemia Sepsis Dehydration Viral syndrome Vomiting Pancreatitis Admission/Observation Consideration of admission/observation: Escalation of care including admission/observation considered Consult Healthcare Provider Management of the patient was discussed with: Hospitalist (Dr Rainey) and Senior Datastage Developer (Nephrology) Lab Data MDM Lab Attestation statement: I reviewed the patient's lab results. As above, no leukocytosis. The patient has anemia consistent his baseline. Electrolyte abnormalities include a sodium of 129, potassium 5.7. Grossly elevated renal function with a BUN 65 creatinine of 8.2. This is indicative of new onset acute renal failure. 07/18/23 16:45 07/18/23 16:45 Labs: Lab Results 07/18/23 07/18/23 07/18/23 Range/Units 16:45 18:09 20:23 WBC 9.2 (4.8-10.8) X10*3/uL RBC 3.40 L (4.60-5.80) X10*6/uL Hgb 9.7 L (14.0-18.0) g/dl Hct 28.7 L (42.0-52.0) % MCV 84.4 (80.0-98.0) fL MCH 28.5 (27.0-33.0) pg MCHC 33.8 (31.0-36.0) g/dl RDW 13.5 (11.0-16.0) % Plt Count 173 (160-400) X10*3/uL MPV 10.6 (9.4-12.4) fL Immature Gran % (Auto) 0.5 H (0.0-0.4) % Neut % (Auto) 66.7 (45-73) % Lymph % (Auto) 19.8 L (20-40) % Stephens % (Auto) 9.2 (2-11) % Eos % (Auto) 3.5 (0-4) % Baso % (Auto) 0.3 (0-2) % Lymph # (Auto) 1.8 (1.2-4.9) X10*3/uL Stephens # (Auto) 0.9 (0.1-1.2) X10*3/uL Eos # (Auto) 0.3 (0.0-0.4) X10*3/uL Baso # (Auto) 0.0 (0.0-0.2) X10*3/uL Abs Immat Gran (auto) 0.05 H (0.00-0.03) X10*3/uL Absolute Neuts (auto) 6.1 (2.0-8.3) x10*3/uL Absolute Nucleated RBC 0.000 (0.0-0.012) X10*3/uL Nucleated RBC % (auto) 0.0 (0.0-0.2) /100WBC PT 11.1 (11.1-13.3) SEC INR 0.9 (0.9-1.1) O2 Saturation % ABG pH at Pt Temp (7.35-7.45) ABG pCO2 at Pt Temp (32-45) mmHg ABG pO2 at Pt Temp (83-108) mmHg ABG HCO3 (22-26) mmol/L ABG Base Excess (Actual) mmol/L Sodium 129 L (135-145) mmol/L Potassium 5.7 H D (3.3-5.1) mmol/L Chloride 98 (96-108) mmol/L Carbon Dioxide 15 L (22-29) mmol/L Anion Gap 22 H (12-20) BUN 65 H (9-16) mg/dL Creatinine 8.20 H* (0.5-1.4) mg/dL Estim Creat Clear Calc 13.2 Estimated GFR 7 Random Glucose 62 (60-115) mg/dL Lactic Acid 4.3 H* (0.5-2.0) mmol/L Lactic Acid F/U @ 2Hr 4.0 H* (0.5-2.0) mmol/L Calcium 8.6 D (8.4-10.2) mg/dL Total Bilirubin 0.5 (0.0-1.0) mg/dL AST 12 (5-37) U/L ALT 12 (0-40) U/L Alkaline Phosphatase 64 (39-117) U/L Total Creatine Kinase 192 H (38-174) U/L Total Protein 7.8 (6.5-8.0) g/dL Albumin 4.0 (3.5-5.0) g/dL Lipase 342 H (8-78) U/L Random Vancomycin < 2.0 L (15-20) mcg/mL COVID-19 (ZURDO) Negative (Negative) COVID-19 Clin Com See Note Influenza Type A (CORNEL) Negative (Negative) Influenza Type B (CORNEL) Negative (Negative) Influenza A & B Note See Note 07/18/23 Range/Units 21:36 WBC (4.8-10.8) X10*3/uL RBC (4.60-5.80) X10*6/uL Hgb (14.0-18.0) g/dl Hct (42.0-52.0) % MCV (80.0-98.0) fL MCH (27.0-33.0) pg MCHC (31.0-36.0) g/dl RDW (11.0-16.0) % Plt Count (160-400) X10*3/uL MPV (9.4-12.4) fL Immature Gran % (Auto) (0.0-0.4) % Neut % (Auto) (45-73) % Lymph % (Auto) (20-40) % Stephens % (Auto) (2-11) % Eos % (Auto) (0-4) % Baso % (Auto) (0-2) % Lymph # (Auto) (1.2-4.9) X10*3/uL Stephens # (Auto) (0.1-1.2) X10*3/uL Eos # (Auto) (0.0-0.4) X10*3/uL Baso # (Auto) (0.0-0.2) X10*3/uL Abs Immat Gran (auto) (0.00-0.03) X10*3/uL Absolute Neuts (auto) (2.0-8.3) x10*3/uL Absolute Nucleated RBC (0.0-0.012) X10*3/uL Nucleated RBC % (auto) (0.0-0.2) /100WBC PT (11.1-13.3) SEC INR (0.9-1.1) O2 Saturation 99.0 % ABG pH at Pt Temp 7.25 L (7.35-7.45) ABG pCO2 at Pt Temp 29 L (32-45) mmHg ABG pO2 at Pt Temp 99 (83-108) mmHg ABG HCO3 13 L (22-26) mmol/L ABG Base Excess (Actual) -12.6 mmol/L Sodium (135-145) mmol/L Potassium (3.3-5.1) mmol/L Chloride (96-108) mmol/L Carbon Dioxide (22-29) mmol/L Anion Gap (12-20) BUN (9-16) mg/dL Creatinine (0.5-1.4) mg/dL Estim Creat Clear Calc Estimated GFR Random Glucose (60-115) mg/dL Lactic Acid (0.5-2.0) mmol/L Lactic Acid F/U @ 2Hr (0.5-2.0) mmol/L Calcium (8.4-10.2) mg/dL Total Bilirubin (0.0-1.0) mg/dL AST (5-37) U/L ALT (0-40) U/L Alkaline Phosphatase (39-117) U/L Total Creatine Kinase (38-174) U/L Total Protein (6.5-8.0) g/dL Albumin (3.5-5.0) g/dL Lipase (8-78) U/L Random Vancomycin (15-20) mcg/mL COVID-19 (ZURDO) (Negative) COVID-19 Clin Com Influenza Type A (CORNEL) (Negative) Influenza Type B (CORNEL) (Negative) Influenza A & B Note Independent Interpretation I performed an independent interpretation of an: EKG (Sinus rhythm with a rate of 87 beats minute. No arrhythmia, no peaked T-waves. No ischemic changes) and CT Scan (Nonobstructive bowel gas pattern) Radiology Impression Discussion of test interpretation with radiology: I have reviewed the radiologist's reading. (Bladder wall thickening suggestive of UTI versus bladder outlet obstruction.) Discharge Plan Discharge Clinical Impression: Acute renal failure, Acute osteomyelitis of right foot Patient Disposition: Admitted As Inpatient
[2023-07-18 17:05] LABS: MANUAL DIFF FLAG NO
[2023-07-18 17:08] LABS: Basophils Percent Auto 0.3 % (0-2); Eosinophils Absolute Auto 0.3 X10*3/uL (0.0-0.4); Eosinophils Percent Auto 3.5 % (0-4); Hematocrit 28.7 % (42.0-52.0); Hemoglobin 9.7 g/dl (14.0-18.0); Imm Gran Abs Auto 0.05 X10*3/uL (0.00-0.03); Imm Gran Pct Auto 0.5 % (0.0-0.4); Lymphocytes Absolute Auto 1.8 X10*3/uL (1.2-4.9); Lymphocytes Percent Auto 19.8 % (20-40); Mean Corpuscular HGB Conc 33.8 g/dl (31.0-36.0); Mean Corpuscular Hemoglobin 28.5 pg (27.0-33.0); Mean Corpuscular Volume 84.4 fL (80.0-98.0); Mean Platelet Volume 10.6 fL (9.4-12.4); Monocytes Absolute Auto 0.9 X10*3/uL (0.1-1.2); Monocytes Percent Auto 9.2 % (2-11); Neutrophils Absolute Auto 6.1 x10*3/uL (2.0-8.3); Neutrophils Percent Auto 66.7 % (45-73); Platelet Count 173 X10*3/uL (160-400); Red Cell Distribution Width 13.5 % (11.0-16.0); White Blood Count 9.2 X10*3/uL (4.8-10.8)
[2023-07-18 17:11] LABS: INTERNATIONAL NORM RATIO 0.9 (0.9-1.1); Prothrombin Time 11.1 SEC (11.1-13.3)
[2023-07-18] MEDS: 0.9 % Sodium Chloride 1,000 ML 999 ML IV ×3 (17:15→23:22)
[2023-07-18] MEDS: Ondansetron ODT 4 MG TAB.RAPDIS TRANSLINGU (17:15)
[2023-07-18 17:30] LABS: Lactic Acid 4.3 mmol/L (0.5-2.0)
[2023-07-18 17:43] LABS: Alanine Aminotransferase 12 U/L (0-40); Alkaline Phosphatase 64 U/L (39-117); Anion Gap 22 (12-20); Aspartate Amino Transferase 12 U/L (5-37); Bilirubin Total 0.5 mg/dL (0.0-1.0); Blood Urea Nitrogen 65 mg/dL (9-16); Calcium 8.6 mg/dL (8.4-10.2); Carbon Dioxide 15 mmol/L (22-29); Chloride 98 mmol/L (96-108); Creatinine Clr Calc Pharmacy 13.2; Estimated Glomerular Filt Rate 7; Glucose Random 62 mg/dL (60-115); Lipase 342 U/L (8-78); Potassium 5.7 mmol/L (3.3-5.1); Sodium 129 mmol/L (135-145); Total Protein 7.8 g/dL (6.5-8.0)
[2023-07-18] MEDS: Sodium Zirconium Cyclosilicate 5 GM POWD.PACK PO (18:11)
[2023-07-18 18:35] LABS: COVID-19 Test Negative (Negative); IDNOW Serial# 16C4AD1C; IDNOW Serial# 55D5AD1C; Influenza A Negative (Negative); Influenza B2 Negative (Negative)
[2023-07-18 18:55] VITALS: BP 104/53; PULSE 86; RESP 16; TEMP 36.6; O2SAT 98
[2023-07-18 19:02] LABS: Reflex Lactate? Lactic Acid Added
[2023-07-18 19:21] VITALS: BP 105/54; PULSE 84; RESP 16; O2SAT 98
--- NOTE | 2023-07-18 20:41 | PM.EVENT ---
Event Note Date of Service: 07/22/23 Event Note: Chart REviewed JJ with hyperkalemia/Hy'ponatremia r/o obstruction CPK not elevated CT noted Suggest Insert carmona Lokelma IV hydration DC LIsinopril Full consult to follow Time Spent With Patient Time: Total time managing care of this patient today ____ minutes.
[2023-07-18 20:49] LABS: Vancomycin Random < 2.0 mcg/mL (15-20)
[2023-07-18 21:42] VITALS: O2SAT 98
[2023-07-18 21:42] LABS: ABG Base Excess -12.6 mmol/L; ABG HCO3 13 mmol/L (22-26); ABG pCO2 29 mmHg (32-45); ABG pH 7.25 (7.35-7.45); ABG pO2 99 mmHg (83-108)
--- NOTE | 2023-07-18 21:53 | PHA.MEDREC ---
Pharmacy Consult ? Medication Reconciliation Pharmacy has completed the medication reconciliation. Patient from [facility] with med list. Binta Jaquez, CarlotaD
[2023-07-18] MEDS: Piperacillin Sodium/Tazobactam 3.375 GM in 0.9 % Sodium Chloride 50 ML IV (22:01)
[2023-07-18 22:28] LABS: Reflex Lactate? 2 Y
[2023-07-18 22:30] VITALS: BP 96/45; PULSE 78; RESP 14; TEMP 36.4; O2SAT 97
[2023-07-18 22:31] LABS: ABG Refer to POC result
[2023-07-18 22:42] LABS: CDiff Gene PCR NEGATIVE (Negative)
[2023-07-18 22:45] LABS: Appearance Urine Hazy; Color Urine Yellow; Glucose Urine UA Negative (Negative); Leukocyte Esterase Urine Negative (Negative); Nitrite Urine Negative (Negative); PH 5.5 (5.0-9.0); Specific Gravity - Urine 1.025 (1.005-1.025); UMIC TRIGGER UACC YES; Urine Blood Trace (Negative); Urine Ketones Negative (Negative); Urine Protein 30 (1+) mg/dL (Neg-Trace)
[2023-07-18] MEDS: vancomycin HCL 1,500 MG in 0.9 % Sodium Chloride 500 ML 333.33 MG IV (22:45)
[2023-07-18 22:55] LABS: Bacteria Urine None Seen (None Seen); Hyaline Casts Urine >20 /LPF (0-2); RBC Urine 0-2 /HPF (0-2); WBC Urine 0-5 /HPF (0-5)
[2023-07-18 22:56] LABS: ~Lactic Acid-LAB USE ONLY 3.7 mmol/L (0.5-2.0)
[2023-07-19] VITALS (8 sets, daily range): BP systolic 105–140; BP diastolic 54–87; PULSE 75–93; RESP 16–20; TEMP 36–36.4; O2SAT 94–99; BMI 41.1; BMI 41.0
[2023-07-19 01:03] LABS: C Reactive Protein 1.76 mg/dL (< or = 0.50)
[2023-07-19] MEDS: 0.9 % Sodium Chloride 1,000 ML 100 ML IVCONT ×2 (02:01→11:45)
[2023-07-19 02:32] LABS: Anion Gap 20 (12-20); Blood Urea Nitrogen 61 mg/dL (9-16); Calcium 7.5 mg/dL (8.4-10.2); Carbon Dioxide 12 mmol/L (22-29); Chloride 105 mmol/L (96-108); Creatinine Clr Calc Pharmacy 13.6; Estimated Glomerular Filt Rate 7; Glucose Random 54 mg/dL (60-115); Potassium 5.4 mmol/L (3.3-5.1); Sodium 132 mmol/L (135-145)
[2023-07-19] MEDS: Dextrose 50 % 25 GM/50 ML SYRINGE IVPUSH (02:37)
[2023-07-19 03:04] LABS: Glucose, Whole Blood 130 mg/dL (60-115)
[2023-07-19 03:20] LABS: Glucose, Whole Blood 113 mg/dL (60-115)
[2023-07-19 03:36] LABS: Glucose, Whole Blood 107 mg/dL (60-115)
--- NOTE | 2023-07-19 04:00 | PM.IMHP ---
History of Present Illness Date of Service: 07/19/23 Attending physician on admission: Miensh De La Cruz Chief Complaint: Abdominal pain. Mehul Beltran is a 52 years old Kittitian-speaking man with past medical history significant for type 2 diabetes mellitus, essential hypertension, hyperlipidemia, hypothyroidism and recent failed skin graft of the right lower extremity stump presents to the emergency department complaining of generalized abdominal pain, vomiting, fever and diarrhea. Patient is a very vague historian. He denied chest pain, shortness on breath or cough. He denied any acute urinary symptoms. He denied tobacco smoking, alcohol abuse or illicit drug use. History was addressed in Kittitian. In the ED, he was found to have stable vital signs. Blood workup is remarkable for mildly elevated creatinine, 8.2 (it was 1.5 a week ago). There is no leukocytosis. Potassium slightly elevated, 4.4. Bicarbonate is low (12). He lactic acid was initially 4.3, the most recent 1 is 3.2. Lipase is 342. C diff is negative. Viral testing for COVID-19 a influenza are negative. Urinalysis shows no evidence of urinary tract infection. There is mild proteinuria. CXR showed mild peribronchial thickening without acute intrathoracic pathology. Right foot x-rays show postsurgical changes of the right transmetatarsal amputation with associated bony remodeling, there is no definitive evidence of bony erosive changes and the amputation talked to suggest osteomyelitis. However, there is a bony erosion involving the anteromedial navicular bone at the naviculocuneiform joint concerning for osteomyelitis. Abdomen pelvis CT scan showed [id number] circumferential bladder wall thickening which could be related to bladder outlet obstruction or urinary tract infection, there is mild thickening of the rectosigmoid colon which are no specific or could reflect distal proctocolitis. ED tx: Zosyn 3.375 g IV, Lokelma 5 g p.o., normal saline 3 L bolus, vancomycin 1.5 g. According to ED provider case has been discussed with meter maker on-call, recommending indwelling urinary catheter. PENDING SALE TO [facility] Medical History Nausea and vomiting Bacteremia Bilateral hand pain Right knee pain Hypovitaminosis D Right foot pain Left foot pain Infection of penis Hyponatremia Hyperkalemia Diabetic ketoacidosis Acute kidney injury Autoimmune thyroiditis Obesity due to excess calories Type 2 diabetes mellitus with hyperglycemia, with long-term current use of insulin CHF (congestive heart failure) Cognitive developmental delay Proteinuria Type 2 diabetes mellitus with other diabetic kidney complication Essential hypertension Hyperlipidemia LDL goal <100 Edema Hyperlipidemia Cataracts, both eyes HTN (hypertension) Hypothyroid Diabetes Family History Father HTN (hypertension) Mother Diabetes mellitus Maternal Grandmother Diabetes mellitus Surgical History Hx laparoscopic cholecystectomy (10/16/22) 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) Hx of removal of cyst Hx of cataract surgery Social History Household Members: None Household Members Other:: SNF Housing: Other Housing Other:: SNF Do you presently have visiting nurse or other home services: Yes Unable to assess alcohol history related to: Unknown Alcohol intake: never Patient Tobacco Use Status: Never used Tobacco Smoked in Last 30 Days: No e-Cigarette/Vaping Use: Never Used Second Hand Smoke Exposure: No Use of substances other than those prescribed or required for medical reasons: No Substance Use Type: Caffiene Advance Directives: Yes Advance Directives on File: Yes Advance Directives Date on File: 09/10/22 Nutrition Risks: No Nutritional Risk service: No Current occupational status: disabled Cognitive needs: Yes Hearing needs: No Vision needs: No Meds Allergies Allergy/AdvReac Type Severity Reaction Status Date / Time atorvastatin [ATORVASTATIN] Allergy Unknown skin Verified 07/10/23 09:51 eruption Active Medications: Current Medications Acetaminophen (Acetaminophen 325 Mg Tablet) 650 mg PO Q6H PRN PRN Reason: Pain, Mild (Pain Scale 1-3) Dextrose (Dextrose 50 % 25 Gm/50 Ml Syringe) 25 gm IVPUSH Q15M PRN; Protocol PRN Reason: per Hypoglycemia Standing Ord. Glucose (Glucose Gel 15 Gm Gel..Gram.) 15 gm PO Q15M PRN; Protocol PRN Reason: per Hypoglycemia Standing Ord. Heparin Sodium (Porcine) (Heparin Sodium,Porcine 5,000 Unit/Ml Vial) 5,000 unit SUBCUT Q8H CRISPIN Sodium Chloride (Ns) 1,000 mls @ 100 mls/hr IVCONT .Q10H CRISPIN Last Admin: 07/19/23 02:01 Dose: 100 mls/hr Piperacillin Sod/Tazobactam (Sod 2.25 gm/ Sodium Chloride) 50 mls @ 100 mls/hr IV Q6H [facility] Insulin Human Lispro (Insulin Lispro 100 Unit/Ml 3 Ml Vial) 0 unit SUBCUT QIDACHS [facility]; Protocol Levothyroxine Sodium (Levothyroxine Sodium 150 Mcg Tablet) 150 mcg PO DAILY@0600 [facility] Pharmacy Consult (Consult Rx Vancomycin Dosing) 1 each MISCELLANE DAILY PRN PRN Reason: Consult order Sodium Chloride (0.9 % Sodium Chloride Flush 3 Ml Syringe) 3 ml IVFLUSH QSHIFT [facility] Home Medications Medication Instructions Recorded Confirmed Last Taken Type metformin 500 mg tablet 1,000 mg PO BID 06/20/22 07/18/23 06/20/22 History amlodipine 10 mg tablet 10 mg PO DAILY 10/12/22 07/18/23 07/10/23 History cholecalciferol (vitamin D3) 50 50 mcg PO DAILY 10/12/22 07/18/23 Unknown History mcg (2,000 unit) capsule escitalopram oxalate 10 mg tablet 10 mg PO DAILY 10/12/22 07/18/23 Unknown History ezetimibe 10 mg tablet 10 mg PO DAILY 10/12/22 07/18/23 Unknown History fenofibrate 54 mg tablet 54 mg PO DAILY 10/12/22 07/18/23 Unknown History gabapentin 100 mg capsule 100 mg PO TID 10/12/22 07/18/23 Unknown History insulin degludec 200 unit/mL (3 20 unit subcut QAM 10/12/22 07/18/23 Unknown History mL) subcutaneous pen (Tresiba FlexTouch U-200 insulin) levothyroxine 150 mcg tablet 150 mcg PO DAILY 10/12/22 07/18/23 07/10/23 History lisinopril 10 mg tablet 10 mg PO DAILY 10/12/22 07/18/23 Unknown History ondansetron HCl 4 mg tablet 4 mg PO Q8H PRN Nausea 10/12/22 07/18/23 Unknown History simvastatin 40 mg tablet 40 mg PO BEDTIME 10/12/22 07/18/23 Unknown History Saccharomyces boulardii 250 mg 250 mg PO BID 10/13/22 07/18/23 Unknown History capsule (Probiotic (S.boulardii)) acetaminophen 325 mg tablet 650 mg PO Q4H PRN Fever Or Pain 10/13/22 07/18/23 Unknown History bisacodyl 10 mg rectal suppository 10 mg DE DAILY PRN Constipation 10/13/22 07/18/23 Unknown History magnesium hydroxide 400 mg/5 mL 30 ml PO DAILY PRN Constipation 10/13/22 07/18/23 Unknown History oral suspension (Milk of Magnesia) sodium phosphates 19 gram-7 118 ml DE DAILY PRN Constipation 10/13/22 07/18/23 Unknown History gram/118 mL enema (Fleet Enema) ammonium lactate 12 % topical cream 1 appl topical DAILY 07/10/23 07/18/23 Unknown History dulaglutide 3 mg/0.5 mL 3 mg subcut TU 07/10/23 07/18/23 Unknown History subcutaneous pen injector (Trulicity) insulin lispro 100 unit/mL See Protocol subcut QIDACHS 07/10/23 07/18/23 Unknown History subcutaneous solution famotidine 20 mg tablet 20 mg PO BID 07/18/23 07/18/23 Unknown History loperamide 2 mg tablet 2 mg PO Q4H PRN Loose Stool 07/18/23 07/18/23 Unknown History Physical Exam Vital Signs and Narrative: Vital Signs: Last Vital Signs Temp 97.5 F 07/18/23 22:30 Pulse 75 07/19/23 00:59 Resp 16 07/19/23 00:59 BP 111/54 L 07/19/23 00:59 Pulse Ox 99 07/19/23 00:59 O2 Del Method Room Air 07/19/23 00:59 BMI result Body Mass Index 38.7 Constitutional - Awake and Alert, No apparent distress. Acutely ill. Obese. Cooperative. HEENT - atraumatic head. Normocephalic. Dry oral mucosa. Heart - regular rate and rhythm. No murmurs. Lungs. - Normal lung expansion, Normal respiratory effort, No respiratory distress, CTA bilaterally Gastrointestinal - soft. Increased bowel sounds. No distention. Diffuse tenderness to palpation. No guarding. No rebound. - indwelling urinary catheter in place. Clear yellow urine in bag. Extremities - Eight transmetatarsal amputation. Graft extraction site looks unremarkable. Musculoskeletal - Normal inspection, normal ROM Skin - Warm/Dry Neurological - Alert & oriented x3. Normal speech. Psychological - Blunt affect. Answers simple questions appropriately. Results Labs 07/18/23 16:45 07/19/23 02:06 Labs: Laboratory Results - last 24 hr 07/18/23 07/18/23 07/18/23 16:45 18:09 20:23 MCV 84.4 MCH 28.5 MCHC 33.8 RDW 13.5 Plt Count 173 MPV 10.6 Immature Gran % (Auto) 0.5 H Neut % (Auto) 66.7 Lymph % (Auto) 19.8 L Redwood % (Auto) 9.2 Eos % (Auto) 3.5 Baso % (Auto) 0.3 Lymph # (Auto) 1.8 Redwood # (Auto) 0.9 Eos # (Auto) 0.3 Baso # (Auto) 0.0 Abs Immat Gran (auto) 0.05 H Absolute Neuts (auto) 6.1 Absolute Nucleated RBC 0.000 Nucleated RBC % (auto) 0.0 PT 11.1 INR 0.9 O2 Saturation ABG pH at Pt Temp ABG pCO2 at Pt Temp ABG pO2 at Pt Temp ABG HCO3 ABG Base Excess (Actual) Anion Gap 22 H Estim Creat Clear Calc 13.2 Estimated GFR 7 POC Glucose Random Glucose 62 Lactic Acid 4.3 H* Lactic Acid F/U @ 2Hr 4.0 H* Lactic Acid F/U @ 4Hr Calcium 8.6 D Total Bilirubin 0.5 AST 12 ALT 12 Alkaline Phosphatase 64 Total Creatine Kinase 192 H C-Reactive Protein 1.76 H Total Protein 7.8 Albumin 4.0 Lipase 342 H Urine Color Urine Appearance Urine pH Ur Specific Willard Urine Protein Urine Glucose (UA) Urine Ketones Urine Blood Urine Nitrite Ur Leukocyte Esterase Urine RBC Urine WBC Ur Squamous Epith Cells Urine Bacteria Hyaline Casts Random Vancomycin < 2.0 L C. difficile Tox B Gene COVID-19 (ZURDO) Negative COVID-19 Clin Com See Note Influenza Type A (CORNEL) Negative Influenza Type B (CORNEL) Negative Influenza A & B Note See Note 07/18/23 07/18/23 07/18/23 21:36 21:50 22:38 MCV MCH MCHC RDW Plt Count MPV Immature Gran % (Auto) Neut % (Auto) Lymph % (Auto) Redwood % (Auto) Eos % (Auto) Baso % (Auto) Lymph # (Auto) Redwood # (Auto) Eos # (Auto) Baso # (Auto) Abs Immat Gran (auto) Absolute Neuts (auto) Absolute Nucleated RBC Nucleated RBC % (auto) PT INR O2 Saturation 99.0 ABG pH at Pt Temp 7.25 L ABG pCO2 at Pt Temp 29 L ABG pO2 at Pt Temp 99 ABG HCO3 13 L ABG Base Excess (Actual) -12.6 Anion Gap Estim Creat Clear Calc Estimated GFR POC Glucose Random Glucose Lactic Acid Lactic Acid F/U @ 2Hr Lactic Acid F/U @ 4Hr 3.7 H* Calcium Total Bilirubin AST ALT Alkaline Phosphatase Total Creatine Kinase C-Reactive Protein Total Protein Albumin Lipase Urine Color Yellow Urine Appearance Hazy Urine pH 5.5 Ur Specific Willard 1.025 Urine Protein 30 (1+) H Urine Glucose (UA) Negative Urine Ketones Negative Urine Blood Trace Urine Nitrite Negative Ur Leukocyte Esterase Negative Urine RBC 0-2 Urine WBC 0-5 Ur Squamous Epith Cells 6-10 Urine Bacteria None Seen Hyaline Casts >20 Random Vancomycin C. difficile Tox B Gene NEGATIVE COVID-19 (ZURDO) COVID-19 Clin Com Influenza Type A (CORNEL) Influenza Type B (CORNEL) Influenza A & B Note 07/19/23 07/19/23 07/19/23 02:06 03:00 03:15 MCV MCH MCHC RDW Plt Count MPV Immature Gran % (Auto) Neut % (Auto) Lymph % (Auto) Redwood % (Auto) Eos % (Auto) Baso % (Auto) Lymph # (Auto) Redwood # (Auto) Eos # (Auto) Baso # (Auto) Abs Immat Gran (auto) Absolute Neuts (auto) Absolute Nucleated RBC Nucleated RBC % (auto) PT INR O2 Saturation ABG pH at Pt Temp ABG pCO2 at Pt Temp ABG pO2 at Pt Temp ABG HCO3 ABG Base Excess (Actual) Anion Gap 20 Estim Creat Clear Calc 13.6 Estimated GFR 7 POC Glucose 130 H 113 Random Glucose 54 L* Lactic Acid Lactic Acid F/U @ 2Hr Lactic Acid F/U @ 4Hr Calcium 7.5 L D Total Bilirubin AST ALT Alkaline Phosphatase Total Creatine Kinase C-Reactive Protein Total Protein Albumin Lipase Urine Color Urine Appearance Urine pH Ur Specific Willard Urine Protein Urine Glucose (UA) Urine Ketones Urine Blood Urine Nitrite Ur Leukocyte Esterase Urine RBC Urine WBC Ur Squamous Epith Cells Urine Bacteria Hyaline Casts Random Vancomycin C. difficile Tox B Gene COVID-19 (ZURDO) COVID-19 Clin Com Influenza Type A (CORNEL) Influenza Type B (CORNEL) Influenza A & B Note 07/19/23 03:31 MCV MCH MCHC RDW Plt Count MPV Immature Gran % (Auto) Neut % (Auto) Lymph % (Auto) Redwood % (Auto) Eos % (Auto) Baso % (Auto) Lymph # (Auto) Redwood # (Auto) Eos # (Auto) Baso # (Auto) Abs Immat Gran (auto) Absolute Neuts (auto) Absolute Nucleated RBC Nucleated RBC % (auto) PT INR O2 Saturation ABG pH at Pt Temp ABG pCO2 at Pt Temp ABG pO2 at Pt Temp ABG HCO3 ABG Base Excess (Actual) Anion Gap Estim Creat Clear Calc Estimated GFR POC Glucose 107 Random Glucose Lactic Acid Lactic Acid F/U @ 2Hr Lactic Acid F/U @ 4Hr Calcium Total Bilirubin AST ALT Alkaline Phosphatase Total Creatine Kinase C-Reactive Protein Total Protein Albumin Lipase Urine Color Urine Appearance Urine pH Ur Specific Willard Urine Protein Urine Glucose (UA) Urine Ketones Urine Blood Urine Nitrite Ur Leukocyte Esterase Urine RBC Urine WBC Ur Squamous Epith Cells Urine Bacteria Hyaline Casts Random Vancomycin C. difficile Tox B Gene COVID-19 (ZURDO) COVID-19 Clin Com Influenza Type A (CORNEL) Influenza Type B (CORNEL) Influenza A & B Note Imaging Radiologist's Impressions: Impressions Abdomen/Pelvis CT 07/18/23 18:26 IMPRESSION: 1. No cause for abdominal pain. 2. Mild to moderate circumferential bladder wall thickening which could be related to bladder outlet obstruction or urinary tract infection. 3. Mild thickening of the rectosigmoid colon. The findings are nonspecific and could reflect distal proctocolitis, correlate with the clinical exam. Chest X-Ray 07/18/23 21:05 IMPRESSION: Mild peribronchial thickening. No acute intrathoracic disease. Foot X-Ray 07/18/23 21:05 IMPRESSION: Postsurgical changes of right transmetatarsal amputation with associated bony remodeling. There is no definite evidence of bony erosive changes at the amputation yajaira to suggest osteomyelitis. However, there is bony erosion involving the anteromedial navicular bone at the naviculocuneiform joint, concerning for osteomyelitis. Recommend further evaluation with MRI foot without contrast. Assessment and Plan (1) Acute renal failure: Status: Acute (2) Acute osteomyelitis of right foot: Status: Acute Plan Mehul Beltran is a 52 years old man admitted with: Acute kidney injury associated with hyperkalemia or metabolic acidosis likely secondary to volume depletion due to nausea and vomiting. Admit to hospitalist service. Telemetry. Continue IV fluids. Continue indwelling urinary catheter. Intake and output. Continue to monitor potassium; if persists will consider treatment with insulin R, D50 and Lokelma. Patient might benefit of bicarb IV infusion if acidosis continue to get worse. Hold lisinopril. Nephrology consult for further recommendations. Lactic acidosis possible multifactorial: Poor perfusion secondary to volume depletion. Metformin use. No other sepsis criteria. Abdominal pain, vomiting and diarrhea. Nonspecific gastroenteritis/proctocolitis. Continue IV fluids and symptomatic therapy as needed. Type 2 diabetes mellitus. Blood glucose monitoring before meals at bedtime. Insulin sliding scale. Hold metformin and Trulicity. Essential hypertension. Currently, BP is soft. Hold amlodipine and lisinopril. Hypothyroidism. Continue levothyroxine. Hyperlipidemia. Continue statin. Depression. Continue escitalopram. Concern for osteomyelitis to the right navicular bone. Continue empiric IV antibiotic therapy with vancomycin and Zosyn. Check CRP. Right foot MRI. Recent failed skin graft of the right extremity stump. DVT prophylaxis: Heparin subQ. Code status: Full. Patient will need hospitalization for at least 2 midnights for JJ, hyperkalemia, suspect osteomyelitis and lactic acidosis evaluation and treatment with IV antibiotics, IV fluids and Nephrology evaluation. Quality Stroke Does the patient have a stroke diagnosis?: No VTE Prior VTE?: No VTE Risk Level:: Medical - moderate - high VTE Device Contraindication: Treatment Not Indicated VTE Drug Contraindication: N/A - Med Ordered
[2023-07-19] MEDS: Piperacillin Sodium/Tazobactam 2.25 GM in 0.9 % Sodium Chloride 50 ML IV ×3 (04:05→15:55)
[2023-07-19 04:41] LABS: Glucose, Whole Blood 87 mg/dL (60-115)
[2023-07-19 04:50] LABS: C Reactive Protein 1.63 mg/dL (< or = 0.50)
[2023-07-19] MEDS: Levothyroxine Sodium 150 MCG TABLET PO ×2 (05:31→09:47)
[2023-07-19 05:38] LABS: Glucose, Whole Blood 102 mg/dL (60-115)
[2023-07-19 05:51] LABS: Basophils Percent Auto 0.5 % (0-2); Eosinophils Absolute Auto 0.1 X10*3/uL (0.0-0.4); Eosinophils Percent Auto 1.1 % (0-4); Hematocrit 29.3 % (42.0-52.0); Hemoglobin 9.6 g/dl (14.0-18.0); Imm Gran Abs Auto 0.05 X10*3/uL (0.00-0.03); Imm Gran Pct Auto 0.6 % (0.0-0.4); Lymphocytes Absolute Auto 1.3 X10*3/uL (1.2-4.9); Lymphocytes Percent Auto 15.2 % (20-40); MANUAL DIFF FLAG NO; Mean Corpuscular HGB Conc 32.8 g/dl (31.0-36.0); Mean Corpuscular Hemoglobin 28.2 pg (27.0-33.0); Mean Corpuscular Volume 86.2 fL (80.0-98.0); Mean Platelet Volume 10.8 fL (9.4-12.4); Monocytes Absolute Auto 0.7 X10*3/uL (0.1-1.2); Monocytes Percent Auto 8.1 % (2-11); Neutrophils Absolute Auto 6.3 x10*3/uL (2.0-8.3); Neutrophils Percent Auto 74.5 % (45-73); Platelet Count 170 X10*3/uL (160-400); Red Cell Distribution Width 13.4 % (11.0-16.0); White Blood Count 8.4 X10*3/uL (4.8-10.8)
[2023-07-19 05:58] LABS: Venous Blood Gas Refer to POC result
[2023-07-19 05:59] LABS: VBG Base Excess -11.8 mmol/L; VBG HCO3 11 mmol/L (22-26); VBG pCO2 20 mmHg; VBG pH 7.35 (7.32-7.43); VBG pO2 166 mmHg
[2023-07-19 06:11] LABS: Lactic Acid 2.9 mmol/L (0.5-2.0)
[2023-07-19 06:15] LABS: Alanine Aminotransferase 11 U/L (0-40); Albumin Level 3.3 g/dL (3.5-5.0); Alkaline Phosphatase 54 U/L (39-117); Anion Gap 19 (12-20); Aspartate Amino Transferase 11 U/L (5-37); Bilirubin Total 0.5 mg/dL (0.0-1.0); Blood Urea Nitrogen 62 mg/dL (9-16); Calcium 7.6 mg/dL (8.4-10.2); Carbon Dioxide 12 mmol/L (22-29); Chloride 105 mmol/L (96-108); Creatinine Clr Calc Pharmacy 13.5; Estimated Glomerular Filt Rate 7; Glucose Random 106 mg/dL (60-115); Magnesium 1.9 mg/dL (1.6-2.6); Potassium 5.4 mmol/L (3.3-5.1); Sodium 131 mmol/L (135-145); Total Protein 6.6 g/dL (6.5-8.0)
[2023-07-19 06:29] LABS: TSH reflex Free T4 0.47 uIU/mL (0.32-4.0)
[2023-07-19 07:18] LABS: Glucose, Whole Blood 149 mg/dL (60-115)
[2023-07-19] MEDS: 0.9 % Sodium Chloride Flush 3 ML SYRINGE IVFLUSH ×2 (07:22→14:57)
--- NOTE | 2023-07-19 07:26 | PC.NURSE ---
this RN resume care of pt at this time. vss and up to date. nsr on the site monitor. pt denies pain. resting comfortably in bed eating breakfast at this time. no sob/wob noted. respirations even and unlabored. pt awaiting bed assignment at this time. call sheppard placed within reach.
[2023-07-19 07:50] LABS: Reflex Lactate? Lactic Acid Added
--- NOTE | 2023-07-19 08:45 | HE.PHANOTE ---
RE RAMÓN MELGAR PER DR DICKSON. ASKED IF WE SHOULD SWITCH TO DAPTO DUE TO POOR RENAL FUNCTION AND HE SAYS TO WAIT FOR TREATMENT WITH BOTH AT THIS TIME.
[2023-07-19 09:29] LABS: ~Lactic Acid-LAB USE ONLY 2.1 mmol/L (0.5-2.0)
--- NOTE | 2023-07-19 09:30 | PC.NURSE ---
this RN received critical lab value from chemistry - admitting provider dr. baxter notified at this time.
[2023-07-19] MEDS: Escitalopram Oxalate 10 MG TABLET PO (09:45)
[2023-07-19] MEDS: Famotidine 20 MG TABLET PO ×2 (09:45→16:55)
[2023-07-19] MEDS: amLODIPine Besylate 10 MG TABLET PO (09:45)
[2023-07-19] MEDS: Ezetimibe 10 MG TABLET PO (09:45)
[2023-07-19] MEDS: Gabapentin 100 MG CAPSULE PO ×3 (09:46→20:08)
[2023-07-19] MEDS: Cholecalciferol (Vitamin D3) 25 MCG TABLET 50 MCG PO (09:46)
[2023-07-19] MEDS: Heparin Sodium,Porcine 5,000 UNIT/ML VIAL 5000 UNIT SUBCUT ×2 (09:46→16:55)
[2023-07-19] MEDS: Fenofibrate 54 MG TABLET PO (11:09)
[2023-07-19 11:10] LABS: Reflex Lactate? 2 Y
--- NOTE | 2023-07-19 11:12 | PC.NURSE ---
vss and up to date. nsr on the quality assurance monitor body. medication delivered from pharmacy/administered. respirations remain even and unlabored. pt awaiting bed assignment/to go to MRI at this time. call sheppard placed within reach.
--- NOTE | 2023-07-19 11:45 | PC.NURSE ---
IVF administered per provider order. pt currently being transported to MRI at this time.
--- NOTE | 2023-07-19 12:01 | P.PNIM_ITS ---
Subjective Subjective Date of Service: 07/19/23 Interval History: f/u JJ, renal function remains very high no c/o abdminal pain Physical Exam 2 Vital Signs: Vital Signs: Last Vital Signs Temp 97.6 F 07/19/23 11:09 Pulse 81 07/19/23 11:09 Resp 16 07/19/23 11:09 BP 140/74 H 07/19/23 11:09 Pulse Ox 98 07/19/23 11:09 O2 Del Method Room Air 07/19/23 11:09 BMI result Body Mass Index 41.1 Const: Other: General: AO X 3, no acute distress Resp: CTA bilateral CVS: S1,S2,RRR GI: +BS, NT, no distention Skin: No rash, stump area looks clearn Neuro: motor grossly intact Psych: appropriate affect Objective Data Active Medications Acetaminophen (Acetaminophen 325 Mg Tablet) 650 mg PO Q6H PRN PRN Reason: Pain, Mild (Pain Scale 1-3) Amlodipine Besylate (Amlodipine Besylate 10 Mg Tablet) 10 mg PO DAILY [facility]; Protocol Last Admin: 07/19/23 09:45 Dose: 10 mg Documented By: CARA Bisacodyl (Bisacodyl 10 Mg Supp.Rect) 10 mg MA DAILY PRN PRN Reason: Constipation Dextrose (Dextrose 50 % 25 Gm/50 Ml Syringe) 25 gm IVPUSH Q15M PRN; Protocol PRN Reason: per Hypoglycemia Standing Ord. Ezetimibe (Ezetimibe 10 Mg Tablet) 10 mg PO DAILY [facility] Last Admin: 07/19/23 09:45 Dose: 10 mg Documented By: CARA Escitalopram Oxalate (Escitalopram Oxalate 10 Mg Tablet) 10 mg PO DAILY [facility] Last Admin: 07/19/23 09:45 Dose: 10 mg Documented By: CARA Famotidine (Famotidine 20 Mg Tablet) 20 mg PO BID@0630,1630 [facility] Last Admin: 07/19/23 09:45 Dose: 20 mg Documented By: CARA Fenofibrate (Fenofibrate 54 Mg Tablet) 54 mg PO DAILY [facility] Last Admin: 07/19/23 11:09 Dose: 54 mg Documented By: CARA Gabapentin (Gabapentin 100 Mg Capsule) 100 mg PO TID [facility] Last Admin: 07/19/23 09:46 Dose: 100 mg Documented By: CARA Glucose (Glucose Gel 15 Gm Gel..Gram.) 15 gm PO Q15M PRN; Protocol PRN Reason: per Hypoglycemia Standing Ord. Heparin Sodium (Porcine) (Heparin Sodium,Porcine 5,000 Unit/Ml Vial) 5,000 unit SUBCUT Q8H [facility] Last Admin: 07/19/23 09:46 Dose: 5,000 unit Documented By: CARA Sodium Chloride (Ns) 1,000 mls @ 100 mls/hr IVCONT .Q10H [facility] Last Admin: 07/19/23 11:45 Dose: 100 mls/hr Documented By: CARA Piperacillin Sod/Tazobactam (Sod 2.25 gm/ Sodium Chloride) 50 mls @ 100 mls/hr IV Q6H [facility] Last Infusion: 07/19/23 10:16 Dose: Infused Documented By: CARA Insulin Glargine (Insulin Glargine,Hum.Rec.Anlog 100 Unit/Ml 10 Ml Vial) 10 unit SUBCUT DAILY [facility] Insulin Human Lispro (Insulin Lispro 100 Unit/Ml 3 Ml Vial) 0 unit SUBCUT QIDACHS [facility]; Protocol Last Admin: 07/19/23 07:17 Dose: Not Given Documented By: CARA Non-Admin Reason: No Insulin Coverage Levothyroxine Sodium (Levothyroxine Sodium 150 Mcg Tablet) 150 mcg PO DAILY@0600 [facility] Last Admin: 07/19/23 05:31 Dose: 150 mcg Documented By: SUDHEER Levothyroxine Sodium (Levothyroxine Sodium 150 Mcg Tablet) 150 mcg PO DAILY@0600 [facility] Last Admin: 07/19/23 09:47 Dose: 150 mcg Documented By: CARA Loperamide HCl (Loperamide Hcl 2 Mg Capsule) 2 mg PO Q4H PRN PRN Reason: Loose Stool Magnesium Hydroxide (Milk Of Magnesia 30 Ml Oral.Susp) 30 ml PO DAILY PRN PRN Reason: Constipation Non-Formulary Medication (Simvastatin) 40 mg PO BEDTIME [facility] Prochlorperazine Edisylate (Prochlorperazine Edisylate 10 Mg/2 Ml Vial) 5 mg IVPUSH Q6H PRN PRN Reason: Nausea and Vomiting Sodium Biphosphate/Sodium Phosphate (Sodium Phosphate,[place]-Dibasic 133 Ml Enema) 133 ml MA DAILY PRN PRN Reason: Constipation Sodium Chloride (0.9 % Sodium Chloride Flush 3 Ml Syringe) 3 ml IVFLUSH QSHIFT [facility] Last Admin: 07/19/23 07:22 Dose: 3 ml Documented By: CARA Vitamin D (Cholecalciferol (Vitamin D3) 25 Mcg Tablet) 50 mcg PO DAILY [facility] Last Admin: 07/19/23 09:46 Dose: 50 mcg Documented By: CARA Labs 07/19/23 05:44 07/19/23 05:44 Labs: Laboratory Results - last 24 hr 07/18/23 07/18/23 07/18/23 16:45 18:09 20:23 MCV 84.4 MCH 28.5 MCHC 33.8 RDW 13.5 Plt Count 173 MPV 10.6 Immature Gran % (Auto) 0.5 H Neut % (Auto) 66.7 Lymph % (Auto) 19.8 L [place] % (Auto) 9.2 Eos % (Auto) 3.5 Baso % (Auto) 0.3 Lymph # (Auto) 1.8 [place] # (Auto) 0.9 Eos # (Auto) 0.3 Baso # (Auto) 0.0 Abs Immat Gran (auto) 0.05 H Absolute Neuts (auto) 6.1 Absolute Nucleated RBC 0.000 Nucleated RBC % (auto) 0.0 PT 11.1 INR 0.9 O2 Saturation ABG pH at Pt Temp ABG pCO2 at Pt Temp ABG pO2 at Pt Temp ABG HCO3 ABG Base Excess (Actual) VBG pH VBG pCO2 VBG pO2 VBG HCO3 VBG O2 Saturation VBG Base Excess Anion Gap 22 H Estim Creat Clear Calc 13.2 Estimated GFR 7 POC Glucose Random Glucose 62 Lactic Acid 4.3 H* Lactic Acid F/U @ 2Hr 4.0 H* Lactic Acid F/U @ 4Hr Calcium 8.6 D Magnesium Total Bilirubin 0.5 AST 12 ALT 12 Alkaline Phosphatase 64 Total Creatine Kinase 192 H C-Reactive Protein 1.76 H Total Protein 7.8 Albumin 4.0 Lipase 342 H TSH Urine Color Urine Appearance Urine pH Ur Specific [place] Urine Protein Urine Glucose (UA) Urine Ketones Urine Blood Urine Nitrite Ur Leukocyte Esterase Urine RBC Urine WBC Ur Squamous Epith Cells Urine Bacteria Hyaline Casts Random Vancomycin < 2.0 L C. difficile Tox B Gene COVID-19 ([facility]URDO) Negative COVID-19 Clin Com See Note Influenza Type A (CORNEL) Negative Influenza Type B ([facility]) Negative Influenza A & B Note See Note 07/18/23 07/18/23 07/18/23 21:36 21:50 22:38 MCV MCH MCHC RDW Plt Count MPV Immature Gran % (Auto) Neut % (Auto) Lymph % (Auto) [place] % (Auto) Eos % (Auto) Baso % (Auto) Lymph # (Auto) [place] # (Auto) Eos # (Auto) Baso # (Auto) Abs Immat Gran (auto) Absolute Neuts (auto) Absolute Nucleated RBC Nucleated RBC % (auto) PT INR O2 Saturation 99.0 ABG pH at Pt Temp 7.25 L ABG pCO2 at Pt Temp 29 L ABG pO2 at Pt Temp 99 ABG HCO3 13 L ABG Base Excess (Actual) -12.6 VBG pH VBG pCO2 VBG pO2 VBG HCO3 VBG O2 Saturation VBG Base Excess Anion Gap Estim Creat Clear Calc Estimated GFR POC Glucose Random Glucose Lactic Acid Lactic Acid F/U @ 2Hr Lactic Acid F/U @ 4Hr 3.7 H* Calcium Magnesium Total Bilirubin AST ALT Alkaline Phosphatase Total Creatine Kinase C-Reactive Protein Total Protein Albumin Lipase TSH Urine Color Yellow Urine Appearance Hazy Urine pH 5.5 Ur Specific [place] 1.025 Urine Protein 30 (1+) H Urine Glucose (UA) Negative Urine Ketones Negative Urine Blood Trace Urine Nitrite Negative Ur Leukocyte Esterase Negative Urine RBC 0-2 Urine WBC 0-5 Ur Squamous Epith Cells 6-10 Urine Bacteria None Seen Hyaline Casts >20 Random Vancomycin C. difficile Tox B Gene NEGATIVE COVID-19 ([facility]) COVID-19 Clin Com Influenza Type A ([facility]ORNEL) Influenza Type B ([facility]) Influenza A & B Note 07/19/23 07/19/23 07/19/23 02:06 03:00 03:15 MCV MCH MCHC RDW Plt Count MPV Immature Gran % (Auto) Neut % (Auto) Lymph % (Auto) [place] % (Auto) Eos % (Auto) Baso % (Auto) Lymph # (Auto) [place] # (Auto) Eos # (Auto) Baso # (Auto) Abs Immat Gran (auto) Absolute Neuts (auto) Absolute Nucleated RBC Nucleated RBC % (auto) PT INR O2 Saturation ABG pH at Pt Temp ABG pCO2 at Pt Temp ABG pO2 at Pt Temp ABG HCO3 ABG Base Excess (Actual) VBG pH VBG pCO2 VBG pO2 VBG HCO3 VBG O2 Saturation VBG Base Excess Anion Gap 20 Estim Creat Clear Calc 13.6 Estimated GFR 7 POC Glucose 130 H 113 Random Glucose 54 L* Lactic Acid Lactic Acid F/U @ 2Hr Lactic Acid F/U @ 4Hr Calcium 7.5 L D Magnesium Total Bilirubin AST ALT Alkaline Phosphatase Total Creatine Kinase C-Reactive Protein 1.63 H Total Protein Albumin Lipase TSH Urine Color Urine Appearance Urine pH Ur Specific [place] Urine Protein Urine Glucose (UA) Urine Ketones Urine Blood Urine Nitrite Ur Leukocyte Esterase Urine RBC Urine WBC Ur Squamous Epith Cells Urine Bacteria Hyaline Casts Random Vancomycin C. difficile Tox B Gene COVID-19 ([facility]) COVID-19 Clin Com Influenza Type A ([facility]) Influenza Type B ([facility]) Influenza A & B Note 07/19/23 07/19/23 07/19/23 03:31 04:37 05:34 MCV MCH MCHC RDW Plt Count MPV Immature Gran % (Auto) Neut % (Auto) Lymph % (Auto) [place] % (Auto) Eos % (Auto) Baso % (Auto) Lymph # (Auto) [place] # (Auto) Eos # (Auto) Baso # (Auto) Abs Immat Gran (auto) Absolute Neuts (auto) Absolute Nucleated RBC Nucleated RBC % (auto) PT INR O2 Saturation ABG pH at Pt Temp ABG pCO2 at Pt Temp ABG pO2 at Pt Temp ABG HCO3 ABG Base Excess (Actual) VBG pH VBG pCO2 VBG pO2 VBG HCO3 VBG O2 Saturation VBG Base Excess Anion Gap Estim Creat Clear Calc Estimated GFR POC Glucose 107 87 102 Random Glucose Lactic Acid Lactic Acid F/U @ 2Hr Lactic Acid F/U @ 4Hr Calcium Magnesium Total Bilirubin AST ALT Alkaline Phosphatase Total Creatine Kinase C-Reactive Protein Total Protein Albumin Lipase TSH Urine Color Urine Appearance Urine pH Ur Specific [place] Urine Protein Urine Glucose (UA) Urine Ketones Urine Blood Urine Nitrite Ur Leukocyte Esterase Urine RBC Urine WBC Ur Squamous Epith Cells Urine Bacteria Hyaline Casts Random Vancomycin C. difficile Tox B Gene COVID-19 ([facility]) COVID-19 Clin Com Influenza Type A ([facility]) Influenza Type B ([facility]) Influenza A & B Note 07/19/23 07/19/23 07/19/23 05:44 05:47 06:30 MCV 86.2 MCH 28.2 MCHC 32.8 RDW 13.4 Plt Count 170 MPV 10.8 Immature Gran % (Auto) 0.6 H Neut % (Auto) 74.5 H Lymph % (Auto) 15.2 L [place] % (Auto) 8.1 Eos % (Auto) 1.1 Baso % (Auto) 0.5 Lymph # (Auto) 1.3 [place] # (Auto) 0.7 Eos # (Auto) 0.1 Baso # (Auto) 0.0 Abs Immat Gran (auto) 0.05 H Absolute Neuts (auto) 6.3 Absolute Nucleated RBC 0.000 Nucleated RBC % (auto) 0.0 PT INR O2 Saturation ABG pH at Pt Temp ABG pCO2 at Pt Temp ABG pO2 at Pt Temp ABG HCO3 ABG Base Excess (Actual) VBG pH 7.35 VBG pCO2 20 VBG pO2 166 VBG HCO3 11 L VBG O2 Saturation 100.0 VBG Base Excess -11.8 Anion Gap 19 Estim Creat Clear Calc 13.5 Estimated GFR 7 POC Glucose 149 H Random Glucose 106 Lactic Acid 2.9 H* Lactic Acid F/U @ 2Hr Lactic Acid F/U @ 4Hr Calcium 7.6 L Magnesium 1.9 Total Bilirubin 0.5 AST 11 ALT 11 Alkaline Phosphatase 54 Total Creatine Kinase C-Reactive Protein Total Protein 6.6 Albumin 3.3 L Lipase TSH 0.47 Urine Color Urine Appearance Urine pH Ur Specific [place] Urine Protein Urine Glucose (UA) Urine Ketones Urine Blood Urine Nitrite Ur Leukocyte Esterase Urine RBC Urine WBC Ur Squamous Epith Cells Urine Bacteria Hyaline Casts Random Vancomycin C. difficile Tox B Gene COVID-19 ([facility]) COVID-19 Clin Com Influenza Type A ([facility]) Influenza Type B ([facility]) Influenza A & B Note 07/19/23 09:06 MCV MCH MCHC RDW Plt Count MPV Immature Gran % (Auto) Neut % (Auto) Lymph % (Auto) [place] % (Auto) Eos % (Auto) Baso % (Auto) Lymph # (Auto) [place] # (Auto) Eos # (Auto) Baso # (Auto) Abs Immat Gran (auto) Absolute Neuts (auto) Absolute Nucleated RBC Nucleated RBC % (auto) PT INR O2 Saturation ABG pH at Pt Temp ABG pCO2 at Pt Temp ABG pO2 at Pt Temp ABG HCO3 ABG Base Excess (Actual) VBG pH VBG pCO2 VBG pO2 VBG HCO3 VBG O2 Saturation VBG Base Excess Anion Gap Estim Creat Clear Calc Estimated GFR POC Glucose Random Glucose Lactic Acid Lactic Acid F/U @ 2Hr 2.1 H* Lactic Acid F/U @ 4Hr Calcium Magnesium Total Bilirubin AST ALT Alkaline Phosphatase Total Creatine Kinase C-Reactive Protein Total Protein Albumin Lipase TSH Urine Color Urine Appearance Urine pH Ur Specific [place] Urine Protein Urine Glucose (UA) Urine Ketones Urine Blood Urine Nitrite Ur Leukocyte Esterase Urine RBC Urine WBC Ur Squamous Epith Cells Urine Bacteria Hyaline Casts Random Vancomycin C. 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 No obstruction on CT, carmona in , continue IVF, further work [place] for hyperkalemia. Lactic acidosis possible multifactorial: Poor perfusion secondary to volume depletion. Metformin use. No other sepsis criteria. NOT due to sepsis Abdominal pain, vomiting and diarrhea. Nonspecific gastroenteritis/proctocolitis. CT shows no acute finding, presently no pain, Continue IV fluids and symptomatic therapy as needed. Type 2 diabetes mellitus. Hold metformin, Lantus in place of Tresiba, hold trulicity, SSI, diabetic diet Essential hypertension. Currently, BP is soft. Resume Norvasc, hold Lisinpril Hypothyroidism. Continue levothyroxine. Hyperlipidemia. Continue statin. Depression. Continue escitalopram. Concern for osteomyelitis to the right navicular bone. Amputation site looks clean, no obvious evidence of infection, MRI is requested,continue Zosyn, hold Vanco d/t renal failure Recent failed skin graft of the right extremity stump. Ask vascular to reasses DVT prophylaxis: Heparin subQ. Code status: Full. need for inpt: severe JJ, needs wok up Quality Stroke Does the patient have a stroke diagnosis?: No VTE Prior VTE?: No VTE Risk Level:: Medical - moderate - high VTE Device Contraindication: Treatment Not Indicated VTE Drug Contraindication: N/A - Med Ordered
[2023-07-19 13:22] LABS: Glucose, Whole Blood 129 mg/dL (60-115)
[2023-07-19 13:44] LABS: ~Lactic Acid-LAB USE ONLY 1.2 mmol/L (0.5-2.0)
[2023-07-19] MEDS: Insulin Glargine,Hum.rec.anlog 100 UNIT/ML 10 ML VIAL 10 UNIT SUBCUT (14:04)
--- NOTE | 2023-07-19 14:08 | PC.NURSE ---
vss and up to date. medication administered per provider order. admission worksheet completed. pt being transported upstairs at this time.
--- NOTE | 2023-07-19 14:13 | MHC.CM.PN ---
IMM DELIVERED CM MET WITH PT AND AWNING MAKER AT BEDSIDE. 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 + HCP ON FILE. PLAN TO RETURN THERE AT DC VIA BLS TRANSPORT. CENTER UPDATED. CM WILL CONTINUE TO FOLLOW FOR ANY CHANGE IN DC NEEDS/PLAN.
[2023-07-19 14:39] LABS: Glucose, Whole Blood 132 mg/dL (60-115)
[2023-07-19] MEDS: oxyCODONE HCl Immed Release 5 MG TABLET PO (14:56)
--- NOTE | 2023-07-19 15:21 | HO.SKINPHOTO ---
Location: Category: Stage: Length: Width: Depth: cm Location: Category: Stage: Length: Width: Depth: cm Location: Category: Stage: Length: Width: Depth: cm Location: Category: Stage: Length: Width: Depth: cm Location: Category: Stage: Length: Width: Depth: cm Location: Category: Stage: Length: Width: Depth: cm
--- NOTE | 2023-07-19 19:14 | PM.CNNEP ---
History of Present Illness Reason for Consult Consult date: 07/19/23 Reason for consult: JJ Chief Complaint Chief complaint: acute kidney injury History of Present Illness Narrative: Mehul Beltran is a 52 years old Hungarian-speaking man with past medical history significant for type 2 diabetes mellitus, essential hypertension, hyperlipidemia, hypothyroidism and recent failed skin graft of the right lower extremity stump presents to the emergency department complaining of generalized abdominal pain, vomiting, fever and diarrhea. Patient has been a very vague historian. He denied chest pain, shortness on breath or cough. He denied any acute urinary symptoms. He denied tobacco smoking, alcohol abuse or illicit drug use. In the ED, he was found to have stable vital signs. Blood workup is remarkable for mildly elevated creatinine, 8.2 (it was 1.5 a week ago). There is no leukocytosis. Potassium slightly elevated, 4.4. Bicarbonate is low (12). He lactic acid was initially 4.3. Lipase is 342. C diff is negative. Viral testing for COVID-19 a influenza are negative. Urinalysis shows no evidence of urinary tract infection. There was proteinuria. CXR showed mild peribronchial thickening without acute intrathoracic pathology. Right foot x-rays show postsurgical changes of the right transmetatarsal amputation with associated bony remodeling, there is no definitive evidence of bony erosive changes and the amputation talked to suggest osteomyelitis. However, there is a bony erosion involving the anteromedial navicular bone at the naviculocuneiform joint concerning for osteomyelitis. Abdomen pelvis CT scan showed [id number] circumferential bladder wall thickening which could be related to bladder outlet obstruction or urinary tract infection, there is mild thickening of the rectosigmoid colon which are no specific or could reflect distal proctocolitis. He was given Zosyn 3.375 g IV, Lokelma 5 g p.o., normal saline 3 L bolus, vancomycin 1.5 g , had a Phillip placed and was admitted for management. Nephrology has been consulted to assist in his clinical care during his current hospital stay Review of Systems Review of Systems Yes all other systems are reviewed and are negative PMFSH Past Medical History Medical History Nausea and vomiting Bacteremia Bilateral hand pain Right knee pain Hypovitaminosis D Right foot pain Left foot pain Infection of penis Hyponatremia Hyperkalemia Diabetic ketoacidosis Acute kidney injury Autoimmune thyroiditis Obesity due to excess calories Type 2 diabetes mellitus with hyperglycemia, with long-term current use of insulin CHF (congestive heart failure) Cognitive developmental delay Proteinuria Type 2 diabetes mellitus with other diabetic kidney complication Essential hypertension Hyperlipidemia LDL goal <100 Edema Hyperlipidemia Cataracts, both eyes HTN (hypertension) Hypothyroid Diabetes Family History Family History Father HTN (hypertension) Mother Diabetes mellitus Maternal Grandmother Diabetes mellitus Surgical History Surgical History Hx laparoscopic cholecystectomy (10/16/22) 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) Hx of removal of cyst Hx of cataract surgery Social History Social History Household Members: Other Household Members Other:: residential Housing: House Housing Other:: SNF Do you presently have visiting nurse or other home services: No Unable to assess alcohol history related to: Unknown Alcohol intake: never Patient Tobacco Use Status: Never used Tobacco e-Cigarette/Vaping Use: Never Used Second Hand Smoke Exposure: No Substance Use Type: Caffiene Advance Directives Date on File: 09/10/22 service: No Current occupational status: disabled Cognitive needs: Yes Hearing needs: No Vision needs: No Meds Allergies Allergy/AdvReac Type Severity Reaction Status Date / Time atorvastatin [ATORVASTATIN] Allergy Unknown skin Verified 07/10/23 09:51 eruption Active Medications: Current Medications Acetaminophen (Acetaminophen 325 Mg Tablet) 650 mg PO Q6H PRN PRN Reason: Pain, Mild (Pain Scale 1-3) Amlodipine Besylate (Amlodipine Besylate 10 Mg Tablet) 10 mg PO DAILY [facility]; Protocol Last Admin: 07/19/23 09:45 Dose: 10 mg Bisacodyl (Bisacodyl 10 Mg Supp.Rect) 10 mg VT DAILY PRN PRN Reason: Constipation Dextrose (Dextrose 50 % 25 Gm/50 Ml Syringe) 25 gm IVPUSH Q15M PRN; Protocol PRN Reason: per Hypoglycemia Standing Ord. Ezetimibe (Ezetimibe 10 Mg Tablet) 10 mg PO DAILY [facility] Last Admin: 07/19/23 09:45 Dose: 10 mg Escitalopram Oxalate (Escitalopram Oxalate 10 Mg Tablet) 10 mg PO DAILY [facility] Last Admin: 07/19/23 09:45 Dose: 10 mg Famotidine (Famotidine 20 Mg Tablet) 20 mg PO BID@0630,1630 [facility] Last Admin: 07/19/23 16:55 Dose: 20 mg Fenofibrate (Fenofibrate 54 Mg Tablet) 54 mg PO DAILY [facility] Last Admin: 07/19/23 11:09 Dose: 54 mg Gabapentin (Gabapentin 100 Mg Capsule) 100 mg PO TID [facility] Last Admin: 07/19/23 14:03 Dose: 100 mg Glucose (Glucose Gel 15 Gm Gel..Gram.) 15 gm PO Q15M PRN; Protocol PRN Reason: per Hypoglycemia Standing Ord. Heparin Sodium (Porcine) (Heparin Sodium,Porcine 5,000 Unit/Ml Vial) 5,000 unit SUBCUT Q8H [facility] Last Admin: 07/19/23 16:55 Dose: 5,000 unit Meropenem 500 mg/ Sodium (Chloride) 50 mls @ 100 mls/hr IV Q12H [facility] Sodium Bicarbonate 100 meq/ (Dextrose) 1,000 mls @ 100 mls/hr IV .Q10H [facility] Insulin Glargine (Insulin Glargine,Hum.Rec.Anlog 100 Unit/Ml 10 Ml Vial) 10 unit SUBCUT DAILY [facility] Last Admin: 07/19/23 14:04 Dose: 10 unit Insulin Human Lispro (Insulin Lispro 100 Unit/Ml 3 Ml Vial) 0 unit SUBCUT QIDACHS [facility]; Protocol Last Admin: 07/19/23 16:48 Dose: Not Given Levothyroxine Sodium (Levothyroxine Sodium 150 Mcg Tablet) 150 mcg PO DAILY@0600 [facility] Last Admin: 07/19/23 05:31 Dose: 150 mcg Levothyroxine Sodium (Levothyroxine Sodium 150 Mcg Tablet) 150 mcg PO DAILY@0600 [facility] Last Admin: 07/19/23 09:47 Dose: 150 mcg Loperamide HCl (Loperamide Hcl 2 Mg Capsule) 2 mg PO Q4H PRN PRN Reason: Loose Stool Magnesium Hydroxide (Milk Of Magnesia 30 Ml Oral.Susp) 30 ml PO DAILY PRN PRN Reason: Constipation Non-Formulary Medication (Simvastatin) 40 mg PO BEDTIME [facility] Oxycodone HCl (Oxycodone Hcl Immed Release 5 Mg Tablet) 5 mg PO Q6H PRN PRN Reason: Pain, Severe (Pain Scale 7-10) Last Admin: 07/19/23 14:56 Dose: 5 mg Prochlorperazine Edisylate (Prochlorperazine Edisylate 10 Mg/2 Ml Vial) 5 mg IVPUSH Q6H PRN PRN Reason: Nausea and Vomiting Sodium Biphosphate/Sodium Phosphate (Sodium Phosphate,Dickenson-Dibasic 133 Ml Enema) 133 ml VT DAILY PRN PRN Reason: Constipation Sodium Chloride (0.9 % Sodium Chloride Flush 3 Ml Syringe) 3 ml IVFLUSH QSMAFT [facility] Last Admin: 07/19/23 14:57 Dose: 3 ml Vitamin D (Cholecalciferol (Vitamin D3) 25 Mcg Tablet) 50 mcg PO DAILY [facility] Last Admin: 07/19/23 09:46 Dose: 50 mcg Home Medications Medication Instructions Recorded Confirmed Last Taken Type metformin 500 mg tablet 1,000 mg PO BID 06/20/22 07/18/23 06/20/22 History amlodipine 10 mg tablet 10 mg PO DAILY 10/12/22 07/18/23 07/10/23 History cholecalciferol (vitamin D3) 50 50 mcg PO DAILY 10/12/22 07/18/23 Unknown History mcg (2,000 unit) capsule escitalopram oxalate 10 mg tablet 10 mg PO DAILY 10/12/22 07/18/23 Unknown History ezetimibe 10 mg tablet 10 mg PO DAILY 10/12/22 07/18/23 Unknown History fenofibrate 54 mg tablet 54 mg PO DAILY 10/12/22 07/18/23 Unknown History gabapentin 100 mg capsule 100 mg PO TID 10/12/22 07/18/23 Unknown History insulin degludec 200 unit/mL (3 20 unit subcut QAM 10/12/22 07/18/23 Unknown History mL) subcutaneous pen (Tresiba FlexTouch U-200 insulin) levothyroxine 150 mcg tablet 150 mcg PO DAILY 10/12/22 07/18/23 07/10/23 History lisinopril 10 mg tablet 10 mg PO DAILY 10/12/22 07/18/23 Unknown History ondansetron HCl 4 mg tablet 4 mg PO Q8H PRN Nausea 10/12/22 07/18/23 Unknown History simvastatin 40 mg tablet 40 mg PO BEDTIME 10/12/22 07/18/23 Unknown History Saccharomyces boulardii 250 mg 250 mg PO BID 10/13/22 07/18/23 Unknown History capsule (Probiotic (S.boulardii)) acetaminophen 325 mg tablet 650 mg PO Q4H PRN Fever Or Pain 10/13/22 07/18/23 Unknown History bisacodyl 10 mg rectal suppository 10 mg VT DAILY PRN Constipation 10/13/22 07/18/23 Unknown History magnesium hydroxide 400 mg/5 mL 30 ml PO DAILY PRN Constipation 10/13/22 07/18/23 Unknown History oral suspension (Milk of Magnesia) sodium phosphates 19 gram-7 118 ml VT DAILY PRN Constipation 10/13/22 07/18/23 Unknown History gram/118 mL enema (Fleet Enema) ammonium lactate 12 % topical cream 1 appl topical DAILY 07/10/23 07/18/23 Unknown History dulaglutide 3 mg/0.5 mL 3 mg subcut TU 07/10/23 07/18/23 Unknown History subcutaneous pen injector (Trulicity) insulin lispro 100 unit/mL See Protocol subcut QIDACHS 07/10/23 07/18/23 Unknown History subcutaneous solution famotidine 20 mg tablet 20 mg PO BID 07/18/23 07/18/23 Unknown History loperamide 2 mg tablet 2 mg PO Q4H PRN Loose Stool 07/18/23 07/18/23 Unknown History Physical Exam Vital Signs: Last Vital Signs Temp 97 F 07/19/23 14:28 Pulse 92 07/19/23 14:28 Resp 18 07/19/23 14:28 BP 130/87 07/19/23 14:28 Pulse Ox 99 07/19/23 14:28 O2 Del Method Room Air 07/19/23 14:28 BMI result Body Mass Index 41.0 Const General: no acute distress Eyes Eyelids: Yes eyelids normal Neck Neck: Yes supple Resp Auscultation: diminished lung sounds Cardio Rate: regular rate GI Palpation (GI): Soft to palpation Neuro Other: Alert and awake Results Lab Results 07/19/23 05:44 07/19/23 05:44 Lab results: Chemistry 07/18/23 07/19/23 07/19/23 16:45 02:06 05:44 Sodium 129 L 132 L 131 L Potassium 5.7 H D 5.4 H 5.4 H Carbon Dioxide 15 L 12 L 12 L BUN 65 H 61 H 62 H Creatinine 8.20 H* 7.99 H* 8.00 H* Calcium 8.6 D 7.5 L D 7.6 L Hematology 07/18/23 07/19/23 16:45 05:44 WBC 9.2 8.4 Hgb 9.7 L 9.6 L Plt Count 173 170 Urinalysis 07/18/23 22:38 Urine Color Yellow Urine Appearance Hazy Urine pH 5.5 Ur Specific [place] 1.025 Urine Protein 30 (1+) H Urine Glucose (UA) Negative Urine Ketones Negative Urine Blood Trace Urine Nitrite Negative Ur Leukocyte Esterase Negative Urine RBC 0-2 Urine WBC 0-5 Ur Squamous Epith Cells 6-10 Hyaline Casts >20 Assessment and Plan (1) Acute renal failure: Qualifiers: Acute renal failure type: with acute tubular necrosis Qualified Code(s): N17.0 - Acute kidney failure with tubular necrosis Status: Acute Plan Acute Kidney injury due to tubular injury Has metabolic acidosis with hyperkalemia Known to have proteinuria Had been on ACEI which has caused altered autoregulation in the kidney ACEI on hold; D/Venu fenofibrate; Imaging- No hydro; Has good UO Changed IV fluids to NaHCO3; C3/C4 ordered NO reason to suspect GN/AIN; No indication for renal replacement now Needs F/U with us in the office when D/Venu; Labs AM Procedures Date of Service Date of Service: 07/19/23
[2023-07-19 19:23] LABS: Glucose, Whole Blood 219 mg/dL (60-115)
[2023-07-19] MEDS: Insulin Lispro 100 UNIT/ML 3 ML VIAL SUBCUT (20:09)
[2023-07-19] MEDS: Sodium Bicarbonate 8.4% 100 MEQ in Dextrose 5 % 900 ML IV (20:45)
[2023-07-20] MEDS: Heparin Sodium,Porcine 5,000 UNIT/ML VIAL 5000 UNIT SUBCUT ×3 (01:23→17:31)
[2023-07-20 03:25] VITALS: BP 121/65; PULSE 85; RESP 18; TEMP 36.1; O2SAT 97
[2023-07-20] MEDS: Sodium Bicarbonate 8.4% 100 MEQ in Dextrose 5 % 900 ML IV ×2 (06:43→17:33)
[2023-07-20] MEDS: Levothyroxine Sodium 150 MCG TABLET PO (06:43)
[2023-07-20] MEDS: Famotidine 20 MG TABLET PO ×2 (06:44→17:32)
[2023-07-20 07:06] LABS: Anion Gap 14 (12-20); Blood Urea Nitrogen 41 mg/dL (9-16); Calcium 8.6 mg/dL (8.4-10.2); Carbon Dioxide 23 mmol/L (22-29); Chloride 109 mmol/L (96-108); Creatinine Clr Calc Pharmacy 20.1; Estimated Glomerular Filt Rate 11; Glucose Random 154 mg/dL (60-115); Potassium 4.7 mmol/L (3.3-5.1); Sodium 141 mmol/L (135-145)
[2023-07-20 07:37] VITALS: BP 140/79; PULSE 88; RESP 18; TEMP 36; O2SAT 98
[2023-07-20 07:50] LABS: Glucose, Whole Blood 153 mg/dL (60-115)
[2023-07-20] MEDS: Insulin Glargine,Hum.rec.anlog 100 UNIT/ML 10 ML VIAL 10 UNIT SUBCUT (08:06)
[2023-07-20] MEDS: Insulin Lispro 100 UNIT/ML 3 ML VIAL SUBCUT ×4 (08:06→20:00)
[2023-07-20] MEDS: Gabapentin 100 MG CAPSULE PO ×3 (08:07→19:54)
[2023-07-20] MEDS: Ezetimibe 10 MG TABLET PO (08:07)
[2023-07-20] MEDS: 0.9 % Sodium Chloride Flush 3 ML SYRINGE IVFLUSH ×2 (08:07→17:29)
[2023-07-20] MEDS: Cholecalciferol (Vitamin D3) 25 MCG TABLET 50 MCG PO (08:07)
[2023-07-20] MEDS: Escitalopram Oxalate 10 MG TABLET PO (08:07)
[2023-07-20] MEDS: amLODIPine Besylate 10 MG TABLET PO (08:07)
--- NOTE | 2023-07-20 08:40 | P.PNIM_ITS ---
Subjective Subjective Date of Service: 07/20/23 Interval History: f/u JJ, renal function remains high Patient states he is doing well and is without any complaints. No abdominal pain Constitutional Constitutional: Reports no additional constitutional complaints Cardiovascular Cardiovascular: Reports no additional cardiovascular complaints Respiratory Respiratory: Reports no additional respiratory complaints Gastrointestinal Gastrointestinal: Reports no additional gastrointestinal complaints Genitourinary Genitourinary: Reports no additional male genitourinary complaints Physical Exam 2 Vital Signs: Vital Signs: Last Vital Signs Temp 96.8 F 07/20/23 07:37 Pulse 88 07/20/23 07:37 Resp 18 07/20/23 07:37 BP 140/79 H 07/20/23 07:37 Pulse Ox 98 07/20/23 07:37 O2 Del Method Room Air 07/20/23 07:37 BMI result Body Mass Index 41.0 Const: Other: General: AO X 3, no acute distress Resp: CTA bilateral CVS: S1,S2,RRR GI: +BS, NT, no distention Skin: No rash, stump area looks clearn Neuro: motor grossly intact Psych: appropriate affect Objective Data Active Medications Acetaminophen (Acetaminophen 325 Mg Tablet) 650 mg PO Q6H PRN PRN Reason: Pain, Mild (Pain Scale 1-3) Amlodipine Besylate (Amlodipine Besylate 10 Mg Tablet) 10 mg PO DAILY [facility]; Protocol Last Admin: 07/20/23 08:07 Dose: 10 mg Documented By: LAUREN Bisacodyl (Bisacodyl 10 Mg Supp.Rect) 10 mg [place] DAILY PRN PRN Reason: Constipation Dextrose (Dextrose 50 % 25 Gm/50 Ml Syringe) 25 gm IVPUSH Q15M PRN; Protocol PRN Reason: per Hypoglycemia Standing Ord. Ezetimibe (Ezetimibe 10 Mg Tablet) 10 mg PO DAILY [facility] Last Admin: 07/20/23 08:07 Dose: 10 mg Documented By: LAUREN Escitalopram Oxalate (Escitalopram Oxalate 10 Mg Tablet) 10 mg PO DAILY [facility] Last Admin: 07/20/23 08:07 Dose: 10 mg Documented By: LAUREN Famotidine (Famotidine 20 Mg Tablet) 20 mg PO BID@0630,1630 [facility] Last Admin: 07/20/23 06:44 Dose: 20 mg Documented By: ROCÍO Gabapentin (Gabapentin 100 Mg Capsule) 100 mg PO TID [facility] Last Admin: 07/20/23 08:07 Dose: 100 mg Documented By: LAUREN Glucose (Glucose Gel 15 Gm Gel..Gram.) 15 gm PO Q15M PRN; Protocol PRN Reason: per Hypoglycemia Standing Ord. Heparin Sodium (Porcine) (Heparin Sodium,Porcine 5,000 Unit/Ml Vial) 5,000 unit SUBCUT Q8H [facility] Last Admin: 07/20/23 08:07 Dose: 5,000 unit Documented By: LAUREN Meropenem 500 mg/ Sodium (Chloride) 50 mls @ 100 mls/hr IV Q12H [facility] Last Infusion: 07/20/23 07:16 Dose: Infused Documented By: ROCÍO Sodium Bicarbonate 100 meq/ (Dextrose) 1,000 mls @ 100 mls/hr IV .Q10H [facility] Last Admin: 07/20/23 06:43 Dose: 100 mls/hr Documented By: ROCÍO Insulin Glargine (Insulin Glargine,Hum.Rec.Anlog 100 Unit/Ml 10 Ml Vial) 10 unit SUBCUT DAILY [facility] Last Admin: 07/20/23 08:06 Dose: 10 unit Documented By: LAUREN Insulin Human Lispro (Insulin Lispro 100 Unit/Ml 3 Ml Vial) 0 unit SUBCUT QIDACHS [facility]; Protocol Last Admin: 07/20/23 08:06 Dose: 2 unit Documented By: LAUREN Levothyroxine Sodium (Levothyroxine Sodium 150 Mcg Tablet) 150 mcg PO DAILY@0600 [facility] Last Admin: 07/20/23 06:43 Dose: 150 mcg Documented By: ROCÍO Loperamide HCl (Loperamide Hcl 2 Mg Capsule) 2 mg PO Q4H PRN PRN Reason: Loose Stool Magnesium Hydroxide (Milk Of Magnesia 30 Ml Oral.Susp) 30 ml PO DAILY PRN PRN Reason: Constipation Non-Formulary Medication (Simvastatin) 40 mg PO BEDTIME [facility] Oxycodone HCl (Oxycodone Hcl Immed Release 5 Mg Tablet) 5 mg PO Q6H PRN PRN Reason: Pain, Severe (Pain Scale 7-10) Last Admin: 07/19/23 14:56 Dose: 5 mg Documented By: FLEX Prochlorperazine Edisylate (Prochlorperazine Edisylate 10 Mg/2 Ml Vial) 5 mg IVPUSH Q6H PRN PRN Reason: Nausea and Vomiting Sodium Biphosphate/Sodium Phosphate (Sodium Phosphate,[place]orson-Dibasic 133 Ml Enema) 133 ml [place] DAILY PRN PRN Reason: Constipation Sodium Chloride (0.9 % Sodium Chloride Flush 3 Ml Syringe) 3 ml IVFLUSH QSHIFT [facility] Last Admin: 07/20/23 08:07 Dose: 3 ml Documented By: LAUREN Vitamin D (Cholecalciferol (Vitamin D3) 25 Mcg Tablet) 50 mcg PO DAILY [facility] Last Admin: 07/20/23 08:07 Dose: 50 mcg Documented By: LAUREN Labs 07/19/23 05:44 07/20/23 06:01 Labs: Laboratory Results - last 24 hr 07/19/23 07/19/23 07/19/23 09:06 13:15 13:26 Anion Gap Estim Creat Clear Calc Estimated GFR POC Glucose 129 H Random Glucose Lactic Acid F/U @ 2Hr 2.1 H* Lactic Acid F/U @ 4Hr 1.2 Calcium 07/19/23 07/19/23 07/20/23 14:32 19:18 06:01 Anion Gap 14 Estim Creat Clear Calc 20.1 Estimated GFR 11 POC Glucose 132 H 219 H Random Glucose 154 H Lactic Acid F/U @ 2Hr Lactic Acid F/U @ 4Hr Calcium 8.6 D 07/20/23 07:41 Anion Gap Estim Creat Clear Calc Estimated GFR POC Glucose 153 H Random Glucose Lactic Acid F/U @ 2Hr Lactic Acid F/U @ 4Hr Calcium Microbiology Microbiology Results: Microbiology 07/18/23 18:09 Blood Culture - Preliminary Blood - Venous No growth after 24 hours. 07/18/23 16:45 Blood Culture - Preliminary Blood - Venous No growth after 24 hours. Assessment and Plan (1) Acute kidney injury: Status: Acute Plan This is 52-year-old male with history of insulin-dependent type 2 diabetes, hypothyroidism, hyperlipidemia, hypertension, congestive heart failure, proteinuria, and nonhealing diabetic left foot ulcer s/p TMA presented with abdominal pain and found have severe JJ Acute kidney injury associated with hyperkalemia or metabolic acidosis likely secondary to volume depletion due to nausea and vomiting. No obstruction on CT, carmona in , continue IVF, further work up per nephrology, complement levels pending. Hold ACEI. On bicarb fluids Lactic acidosis possible multifactorial: Poor perfusion secondary to volume depletion. Metformin use. No other sepsis criteria. NOT due to sepsis Abdominal pain, vomiting and diarrhea. Nonspecific gastroenteritis/proctocolitis. CT shows no acute finding, presently no pain, Continue IV fluids and symptomatic therapy as needed. Type 2 diabetes mellitus. Hold metformin, Lantus in place of Tresiba, hold trulicity, SSI, diabetic diet Essential hypertension. Resume Norvasc, hold Lisinpril Hypothyroidism. Continue levothyroxine. Hyperlipidemia. Continue statin. Depression. Continue escitalopram. ?osteomyelitis to the right navicular bone. Reviewed MRI. On empiric meropenem, hold Vanco d/t renal failure. Awaiting ID input DVT prophylaxis: Heparin subQ. Code status: Full. need for inpt: Close monitoring of kidney function, urine output. Also IV antibiotics for possible osteomyelitis Quality Stroke Does the patient have a stroke diagnosis?: No VTE Prior VTE?: No VTE Risk Level:: Medical - moderate - high VTE Device Contraindication: Treatment Not Indicated VTE Drug Contraindication: N/A - Med Ordered
[2023-07-20 11:06] LABS: Glucose, Whole Blood 204 mg/dL (60-115)
[2023-07-20 13:57] LABS: Creatinine Urine 50.58 mg/dL; Protein/Creatinine Ratio, Ur 1.01 (<0.2); Total Protein Urine Random 51 mg/dL (<12)
[2023-07-20 15:35] VITALS: BP 153/77; PULSE 85; RESP 16; TEMP 36.2; O2SAT 97
[2023-07-20 16:19] LABS: Glucose, Whole Blood 177 mg/dL (60-115)
[2023-07-20 19:24] VITALS: BP 123/68; PULSE 82; RESP 18; TEMP 36.1; O2SAT 98
[2023-07-20 19:32] LABS: Glucose, Whole Blood 164 mg/dL (60-115)
--- NOTE | 2023-07-20 23:13 | P.CNID_ITS ---
History of Present Illness Data of Consult Service Date: 07/20/23 [facility] Care Provider: Adwoa Fan MD HPI Reason for consult: JJ,?OM transmetatarsal infection right foot He presents with nausea, vomiting and found to have JJ with creatinine 7.\ Abdominal CT as well as CXR rather unremarkable. MRI shows OM likely 1,3,5 distal right metatarsals. He has had failed skin graft and OM 07/10/2023. He has no leukocytosis or fever. He has had MRSA in past. Review of Systems 2 Review of Systems: Yes all other systems are reviewed and are negative PMFSH Past Medical History Medical History Nausea and vomiting Bacteremia Bilateral hand pain Right knee pain Hypovitaminosis D Right foot pain Left foot pain Infection of penis Hyponatremia Hyperkalemia Diabetic ketoacidosis Acute kidney injury Autoimmune thyroiditis Obesity due to excess calories Type 2 diabetes mellitus with hyperglycemia, with long-term current use of insulin CHF (congestive heart failure) Cognitive developmental delay Proteinuria Type 2 diabetes mellitus with other diabetic kidney complication Essential hypertension Hyperlipidemia LDL goal <100 Edema Hyperlipidemia Cataracts, both eyes HTN (hypertension) Hypothyroid Diabetes Family History Family History Father HTN (hypertension) Mother Diabetes mellitus Maternal Grandmother Diabetes mellitus Surgical History Surgical History Hx laparoscopic cholecystectomy (10/16/22) 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) Hx of removal of cyst Hx of cataract surgery Social History Social History Household Members: Other Household Members Other:: [facility] Housing: House Housing Other:: SNF Do you presently have visiting nurse or other home services: No Unable to assess alcohol history related to: Unknown Alcohol intake: never Patient Tobacco Use Status: Never used Tobacco e-Cigarette/Vaping Use: Never Used Second Hand Smoke Exposure: No Substance Use Type: Caffiene Advance Directives Date on File: 09/10/22 service: No Current occupational status: disabled Cognitive needs: Yes Hearing needs: No Vision needs: No Meds Allergies Allergy/AdvReac Type Severity Reaction Status Date / Time atorvastatin [ATORVASTATIN] Allergy Unknown skin Verified 07/10/23 09:51 eruption Active Medications: Current Medications Acetaminophen (Acetaminophen 325 Mg Tablet) 650 mg PO Q6H PRN PRN Reason: Pain, Mild (Pain Scale 1-3) Amlodipine Besylate (Amlodipine Besylate 10 Mg Tablet) 10 mg PO DAILY [facility]; Protocol Last Admin: 07/20/23 08:07 Dose: 10 mg Bisacodyl (Bisacodyl 10 Mg Supp.Rect) 10 mg [place] DAILY PRN PRN Reason: Constipation Dextrose (Dextrose 50 % 25 Gm/50 Ml Syringe) 25 gm IVPUSH Q15M PRN; Protocol PRN Reason: per Hypoglycemia Standing Ord. Ezetimibe (Ezetimibe 10 Mg Tablet) 10 mg PO DAILY [facility] Last Admin: 07/20/23 08:07 Dose: 10 mg Escitalopram Oxalate (Escitalopram Oxalate 10 Mg Tablet) 10 mg PO DAILY [facility] Last Admin: 07/20/23 08:07 Dose: 10 mg Famotidine (Famotidine 20 Mg Tablet) 20 mg PO BID@0630,1630 [facility] Last Admin: 07/20/23 17:32 Dose: 20 mg Gabapentin (Gabapentin 100 Mg Capsule) 100 mg PO TID [facility] Last Admin: 07/20/23 19:54 Dose: 100 mg Glucose (Glucose Gel 15 Gm Gel..Gram.) 15 gm PO Q15M PRN; Protocol PRN Reason: per Hypoglycemia Standing Ord. Heparin Sodium (Porcine) (Heparin Sodium,Porcine 5,000 Unit/Ml Vial) 5,000 unit SUBCUT Q8H [facility] Last Admin: 07/20/23 17:31 Dose: 5,000 unit Meropenem 500 mg/ Sodium (Chloride) 50 mls @ 100 mls/hr IV Q12H [facility] Last Infusion: 07/20/23 20:01 Dose: Infused Sodium Bicarbonate 100 meq/ (Dextrose) 1,000 mls @ 100 mls/hr IV .Q10H [facility] Last Admin: 07/20/23 17:33 Dose: 100 mls/hr Insulin Glargine (Insulin Glargine,Hum.Rec.Anlog 100 Unit/Ml 10 Ml Vial) 10 unit SUBCUT DAILY [facility] Last Admin: 07/20/23 08:06 Dose: 10 unit Insulin Human Lispro (Insulin Lispro 100 Unit/Ml 3 Ml Vial) 0 unit SUBCUT QIDACHS [facility]; Protocol Last Admin: 07/20/23 20:00 Dose: 2 unit Levothyroxine Sodium (Levothyroxine Sodium 150 Mcg Tablet) 150 mcg PO DAILY@0600 [facility] Last Admin: 07/20/23 06:43 Dose: 150 mcg Loperamide HCl (Loperamide Hcl 2 Mg Capsule) 2 mg PO Q4H PRN PRN Reason: Loose Stool Magnesium Hydroxide (Milk Of Magnesia 30 Ml Oral.Susp) 30 ml PO DAILY PRN PRN Reason: Constipation Non-Formulary Medication (Simvastatin) 40 mg PO BEDTIME [facility] Oxycodone HCl (Oxycodone Hcl Immed Release 5 Mg Tablet) 5 mg PO Q6H PRN PRN Reason: Pain, Severe (Pain Scale 7-10) Last Admin: 07/19/23 14:56 Dose: 5 mg Prochlorperazine Edisylate (Prochlorperazine Edisylate 10 Mg/2 Ml Vial) 5 mg IVPUSH Q6H PRN PRN Reason: Nausea and Vomiting Sodium Biphosphate/Sodium Phosphate (Sodium Phosphate,[place]-Dibasic 133 Ml Enema) 133 ml [place] DAILY PRN PRN Reason: Constipation Sodium Chloride (0.9 % Sodium Chloride Flush 3 Ml Syringe) [facility] Admin: 07/20/23 17:29 Dose: 3 ml Vitamin D (Cholecalciferol (Vitamin D3) 25 Mcg Tablet) 50 mcg PO DAILY [facility] Last Admin: 07/20/23 08:07 Dose: 50 mcg Home Medications Medication Instructions Recorded Confirmed Last Taken Type metformin 500 mg tablet 1,000 mg PO BID 06/20/22 07/18/23 06/20/22 History amlodipine 10 mg tablet 10 mg PO DAILY 10/12/22 07/18/23 07/10/23 History cholecalciferol (vitamin D3) 50 50 mcg PO DAILY 10/12/22 07/18/23 Unknown History mcg (2,000 unit) capsule escitalopram oxalate 10 mg tablet 10 mg PO DAILY 10/12/22 07/18/23 Unknown History ezetimibe 10 mg tablet 10 mg PO DAILY 10/12/22 07/18/23 Unknown History fenofibrate 54 mg tablet 54 mg PO DAILY 10/12/22 07/18/23 Unknown History gabapentin 100 mg capsule 100 mg PO TID 10/12/22 07/18/23 Unknown History insulin degludec 200 unit/mL (3 20 unit subcut QAM 10/12/22 07/18/23 Unknown History mL) subcutaneous pen (Tresiba FlexTouch U-200 insulin) levothyroxine 150 mcg tablet 150 mcg PO DAILY 10/12/22 07/18/23 07/10/23 History lisinopril 10 mg tablet 10 mg PO DAILY 10/12/22 07/18/23 Unknown History ondansetron HCl 4 mg tablet 4 mg PO Q8H PRN Nausea 10/12/22 07/18/23 Unknown History simvastatin 40 mg tablet 40 mg PO BEDTIME 10/12/22 07/18/23 Unknown History Saccharomyces boulardii 250 mg 250 mg PO BID 10/13/22 07/18/23 Unknown History capsule (Probiotic (S.boulardii)) acetaminophen 325 mg tablet 650 mg PO Q4H PRN Fever Or Pain 10/13/22 07/18/23 Unknown History bisacodyl 10 mg rectal suppository 10 mg KS DAILY PRN Constipation 10/13/22 07/18/23 Unknown History magnesium hydroxide 400 mg/5 mL 30 ml PO DAILY PRN Constipation 10/13/22 07/18/23 Unknown History oral suspension (Milk of Magnesia) sodium phosphates 19 gram-7 118 ml KS DAILY PRN Constipation 10/13/22 07/18/23 Unknown History gram/118 mL enema (Fleet Enema) ammonium lactate 12 % topical cream 1 appl topical DAILY 07/10/23 07/18/23 Unknown History dulaglutide 3 mg/0.5 mL 3 mg subcut TU 07/10/23 07/18/23 Unknown History subcutaneous pen injector (Trulicity) insulin lispro 100 unit/mL See Protocol subcut QIDACHS 07/10/23 07/18/23 Unknown History subcutaneous solution famotidine 20 mg tablet 20 mg PO BID 07/18/23 07/18/23 Unknown History loperamide 2 mg tablet 2 mg PO Q4H PRN Loose Stool 07/18/23 07/18/23 Unknown History Physical Exam 2 Vital Signs: Vital Signs: Last Vital Signs Temp 97.0 F 07/20/23 19:24 Pulse 82 07/20/23 19:24 Resp 18 07/20/23 19:24 BP 123/68 07/20/23 19:24 Pulse Ox 98 07/20/23 19:24 O2 Del Method Room Air 07/20/23 19:24 BMI result Body Mass Index 41.0 Const: General: cooperative HEENT: Head: Yes normal to inspection Face and sinus: Yes normal facial exam Mouth: Normal oral and palatal mucosa present Teeth and gingiva: d entition normal Eyes: General: appearance normal, both eyes and all related structures P upils: Equal, round and reactive pupils present Resp: Effort & Inspection: normal respiratory effort Cardio: Rate: regular rate Rhythm: regular rhythm GI: Palpation (GI): Soft to palpation and nontender : General: Yes no CVA tenderness Back/Spine/Pelvis: Back: no CVA tenderness Skin: General skin exam: no rashes or lesions noted Neuro: General: moves all extremities Cranial nerves: Yes Equal, round and reactive pupils present Extrem: Other: wrapped noncellulitic TMA right foot Psych: Appearance: grossly normal Results Labs 07/19/23 05:44 07/20/23 06:01 Labs: BMP 07/20/23 06:01 Sodium 141 Potassium 4.7 Chloride 109 H Carbon Dioxide 23 BUN 41 H Creatinine 5.58 H* Calcium 8.6 D Microbiology Microbiology Results: Microbiology 07/18/23 18:09 Blood - Venous Blood Culture - Preliminary No growth after 48 hours. 07/18/23 16:45 Blood - Venous Blood Culture - Preliminary No growth after 48 hours. Assessment and Plan (1) Acute kidney injury: Status: Acute (2) Acute osteomyelitis of right foot: Status: Acute Likely OM with renal insufficiency. He has h/o MRSA in past. He has cultures pending. Plan Would give Daptomycin as well as Merem for now. Would give for six weeks. Wound Care.
[2023-07-21] MEDS: Heparin Sodium,Porcine 5,000 UNIT/ML VIAL 5000 UNIT SUBCUT ×3 (00:21→16:48)
--- NOTE | 2023-07-21 02:04 | PC.NURSE ---
New order for Daptomycin IV placed by Dr Fraser. Med not available in [facility] using global search option. Sorority Supervisor and ordering doctor notified at 0030. Sorority Supervisor to unit suggesting the med may be made available in the morning by [facility]. replied They can get it in the am...
[2023-07-21 04:00] VITALS: BP 130/66; PULSE 83; RESP 18; TEMP 36.2; O2SAT 97
[2023-07-21] MEDS: Levothyroxine Sodium 150 MCG TABLET PO (05:52)
[2023-07-21] MEDS: Famotidine 20 MG TABLET PO ×2 (05:52→16:49)
[2023-07-21 07:17] LABS: MANUAL DIFF FLAG NO
[2023-07-21 07:25] VITALS: BP 131/65; PULSE 83; RESP 16; TEMP 36.4; O2SAT 98
[2023-07-21 07:25] LABS: Basophils Absolute Auto 0.1 X10*3/uL (0.0-0.2); Basophils Percent Auto 0.7 % (0-2); Eosinophils Absolute Auto 0.4 X10*3/uL (0.0-0.4); Eosinophils Percent Auto 5.7 % (0-4); Hematocrit 27.8 % (42.0-52.0); Hemoglobin 9.3 g/dl (14.0-18.0); Imm Gran Abs Auto 0.02 X10*3/uL (0.00-0.03); Imm Gran Pct Auto 0.3 % (0.0-0.4); Lymphocytes Absolute Auto 1.3 X10*3/uL (1.2-4.9); Lymphocytes Percent Auto 18.9 % (20-40); Mean Corpuscular HGB Conc 33.5 g/dl (31.0-36.0); Mean Corpuscular Hemoglobin 28.4 pg (27.0-33.0); Mean Platelet Volume 10.8 fL (9.4-12.4); Monocytes Absolute Auto 0.6 X10*3/uL (0.1-1.2); Monocytes Percent Auto 8.7 % (2-11); Neutrophils Absolute Auto 4.4 x10*3/uL (2.0-8.3); Neutrophils Percent Auto 65.7 % (45-73); Platelet Count 199 X10*3/uL (160-400); Red Blood Count 3.27 X10*6/uL (4.60-5.80); Red Cell Distribution Width 13.7 % (11.0-16.0); White Blood Count 6.7 X10*3/uL (4.8-10.8)
[2023-07-21 07:32] LABS: Glucose, Whole Blood 164 mg/dL (60-115)
[2023-07-21 07:44] LABS: Anion Gap 13 (12-20); Blood Urea Nitrogen 26 mg/dL (9-16); Calcium 9.1 mg/dL (8.4-10.2); Carbon Dioxide 24 mmol/L (22-29); Chloride 106 mmol/L (96-108); Creatinine Clr Calc Pharmacy 37.2; Estimated Glomerular Filt Rate 22; Glucose Random 166 mg/dL (60-115); Potassium 4.5 mmol/L (3.3-5.1); Sodium 138 mmol/L (135-145)
[2023-07-21] MEDS: Insulin Glargine,Hum.rec.anlog 100 UNIT/ML 10 ML VIAL 10 UNIT SUBCUT (07:54)
[2023-07-21] MEDS: Insulin Lispro 100 UNIT/ML 3 ML VIAL SUBCUT ×3 (07:54→20:39)
[2023-07-21] MEDS: Ezetimibe 10 MG TABLET PO (07:55)
[2023-07-21] MEDS: Gabapentin 100 MG CAPSULE PO ×3 (07:55→20:39)
[2023-07-21] MEDS: amLODIPine Besylate 10 MG TABLET PO (07:55)
[2023-07-21] MEDS: Escitalopram Oxalate 10 MG TABLET PO (07:55)
[2023-07-21] MEDS: Cholecalciferol (Vitamin D3) 25 MCG TABLET 50 MCG PO (07:55)
[2023-07-21 11:23] LABS: Glucose, Whole Blood 157 mg/dL (60-115)
--- NOTE | 2023-07-21 12:23 | P.PNIM_ITS ---
Subjective Subjective Date of Service: 07/21/23 Interval History: No acute issues overnight. Improving on bicarb drip Constitutional Denies chest pain Denies shortness of breath Denies nausea vomiting diarrhea Denies fever chills Physical Exam 2 Vital Signs: Vital Signs: Last Vital Signs Temp 97.5 F 07/21/23 07:25 Pulse 83 07/21/23 07:25 Resp 16 07/21/23 07:25 BP 131/65 07/21/23 07:25 Pulse Ox 98 07/21/23 07:25 O2 Del Method Room Air 07/21/23 07:25 BMI result Body Mass Index 41.0 Const: Other: Awake alert no acute distress Resp: Other: Clear to auscultation bilaterally no rales rhonchi or wheezes Cardio: Other: No S4; positive S1-S2; no S3 murmurs rubs or gallops GI: Other: Soft nontender nondistended normoactive bowel sounds Extrem: Other: No edema bilaterally Objective Data Active Medications Acetaminophen (Acetaminophen 325 Mg Tablet) 650 mg PO Q6H PRN PRN Reason: Pain, Mild (Pain Scale 1-3) Amlodipine Besylate (Amlodipine Besylate 10 Mg Tablet) 10 mg PO DAILY [facility]; Protocol Last Admin: 07/21/23 07:55 Dose: 10 mg Documented By: LAUREN Bisacodyl (Bisacodyl 10 Mg Supp.Rect) 10 mg [place] DAILY PRN PRN Reason: Constipation Dextrose (Dextrose 50 % 25 Gm/50 Ml Syringe) 25 gm IVPUSH Q15M PRN; Protocol PRN Reason: per Hypoglycemia Standing Ord. Ezetimibe (Ezetimibe 10 Mg Tablet) 10 mg PO DAILY [facility] Last Admin: 07/21/23 07:55 Dose: 10 mg Documented By: LAUREN Escitalopram Oxalate (Escitalopram Oxalate 10 Mg Tablet) 10 mg PO DAILY [facility] Last Admin: 07/21/23 07:55 Dose: 10 mg Documented By: LAUREN Famotidine (Famotidine 20 Mg Tablet) 20 mg PO BID@0630,1630 [facility] Last Admin: 07/21/23 05:52 Dose: 20 mg Documented By: LAURA Gabapentin (Gabapentin 100 Mg Capsule) 100 mg PO TID [facility] Last Admin: 07/21/23 07:55 Dose: 100 mg Documented By: LAUREN Glucose (Glucose Gel 15 Gm Gel..Gram.) 15 gm PO Q15M PRN; Protocol PRN Reason: per Hypoglycemia Standing Ord. Heparin Sodium (Porcine) (Heparin Sodium,Porcine 5,000 Unit/Ml Vial) 5,000 unit SUBCUT Q8H [facility] Last Admin: 07/21/23 07:55 Dose: 5,000 unit Documented By: LAUREN Meropenem 500 mg/ Sodium (Chloride) 50 mls @ 100 mls/hr IV Q12H [facility] Last Infusion: 07/21/23 06:43 Dose: Infused Documented By: ROCÍO Sodium Bicarbonate 100 meq/ (Dextrose) 1,000 mls @ 100 mls/hr IV .Q10H [facility] Last Admin: 07/21/23 05:56 Dose: Not Given Documented By: ROCÍO Non-Admin Reason: IV Running Daptomycin 500 mg/ Sodium (Chloride) 60 mls @ 100 mls/hr IV Q48H [facility] Insulin Glargine (Insulin Glargine,Hum.Rec.Anlog 100 Unit/Ml 10 Ml Vial) 10 unit SUBCUT DAILY [facility] Last Admin: 07/21/23 07:54 Dose: 10 unit Documented By: LAUREN Insulin Human Lispro (Insulin Lispro 100 Unit/Ml 3 Ml Vial) 0 unit SUBCUT QIDACHS [facility]; Protocol Last Admin: 07/21/23 07:54 Dose: 2 unit Documented By: LAUREN Levothyroxine Sodium (Levothyroxine Sodium 150 Mcg Tablet) 150 mcg PO DAILY@0600 [facility] Last Admin: 07/21/23 05:52 Dose: 150 mcg Documented By: LAURA Loperamide HCl (Loperamide Hcl 2 Mg Capsule) 2 mg PO Q4H PRN PRN Reason: Loose Stool Magnesium Hydroxide (Milk Of Magnesia 30 Ml Oral.Susp) 30 ml PO DAILY PRN PRN Reason: Constipation Non-Formulary Medication (Simvastatin) 40 mg PO BEDTIME [facility] Oxycodone HCl (Oxycodone Hcl Immed Release 5 Mg Tablet) 5 mg PO Q6H PRN PRN Reason: Pain, Severe (Pain Scale 7-10) Last Admin: 07/19/23 14:56 Dose: 5 mg Documented By: FLEX Prochlorperazine Edisylate (Prochlorperazine Edisylate 10 Mg/2 Ml Vial) 5 mg IVPUSH Q6H PRN PRN Reason: Nausea and Vomiting Sodium Biphosphate/Sodium Phosphate (Sodium Phosphate,[place]-Dibasic 133 Ml Enema) 133 ml [place] DAILY PRN PRN Reason: Constipation Sodium Chloride (0.9 % Sodium Chloride Flush 3 Ml Syringe) 3 ml IVFLUSH QSHIFT ON [facility] Last Admin: 07/21/23 07:56 Dose: Not Given Documented By: LAUREN Non-Admin Reason: IV Running Vitamin D (Cholecalciferol (Vitamin D3) 25 Mcg Tablet) 50 mcg PO DAILY [facility] Last Admin: 07/21/23 07:55 Dose: 50 mcg Documented By: LAUREN Labs 07/21/23 06:11 07/21/23 06:11 Labs: Laboratory Results - last 24 hr 07/20/23 07/20/23 07/20/23 13:20 16:12 19:28 MCV MCH MCHC RDW Plt Count MPV Immature Gran % (Auto) Neut % (Auto) Lymph % (Auto) [place] % (Auto) Eos % (Auto) Baso % (Auto) Lymph # (Auto) [place] # (Auto) Eos # (Auto) Baso # (Auto) Abs Immat Gran (auto) Absolute Neuts (auto) Absolute Nucleated RBC Nucleated RBC % (auto) Anion Gap Estim Creat Clear Calc Estimated GFR POC Glucose 177 H 164 H Random Glucose Calcium U Random Total Protein 51 H Urine Creatinine 50.58 Protein/Creatinin Ratio 1.01 H 07/21/23 07/21/23 07/21/23 06:11 07:28 11:17 MCV 85.0 MCH 28.4 MCHC 33.5 RDW 13.7 Plt Count 199 MPV 10.8 Immature Gran % (Auto) 0.3 Neut % (Auto) 65.7 Lymph % (Auto) 18.9 L [place] % (Auto) 8.7 Eos % (Auto) 5.7 H Baso % (Auto) 0.7 Lymph # (Auto) 1.3 [place] # (Auto) 0.6 Eos # (Auto) 0.4 Baso # (Auto) 0.1 Abs Immat Gran (auto) 0.02 Absolute Neuts (auto) 4.4 Absolute Nucleated RBC 0.000 Nucleated RBC % (auto) 0.0 Anion Gap 13 Estim Creat Clear Calc 37.2 Estimated GFR 22 POC Glucose 164 H 157 H Random Glucose 166 H Calcium 9.1 U Random Total Protein Urine Creatinine Protein/Creatinin Ratio Microbiology Microbiology Results: Microbiology 07/18/23 18:09 Blood Culture - Preliminary Blood - Venous No growth after 48 hours. 07/18/23 16:45 Blood Culture - Preliminary Blood - Venous No growth after 48 hours. Assessment and Plan (1) Acute kidney injury: Status: Acute (2) Acute osteomyelitis of right foot: Status: Acute Plan This is 52-year-old male with history of insulin-dependent type 2 diabetes, hypothyroidism, hyperlipidemia, hypertension, congestive heart failure, proteinuria, and nonhealing diabetic left foot ulcer s/p TMA presented with abdominal pain and found have severe JJ 1. JJ with metabolic acidosis -renals improving with volume -continue bicarb drip as ordered -follow renals/divalents 2.Type 2 diabetes mellitus -acceptable control on current therapies -lispro correctional scale -adjust as indicated 3.Essential hypertension -acceptable control on current therapies -hold ACEI 4.Osteomyelitis (right navicular bone) -meropenem(4)/daptomycin(2) -further treatments as per ID Heparin subQ. Full. Requires ongoing hospitalization for treatment of metabolic acidosis in the backdrop of acute kidney injury with bicarb and volume; also requires IV antibiotics for osteomyelitis Quality Stroke Does the patient have a stroke diagnosis?: No VTE Prior VTE?: No VTE Risk Level:: Medical - moderate - high VTE Device Contraindication: Treatment Not Indicated VTE Drug Contraindication: N/A - Med Ordered
--- NOTE | 2023-07-21 13:55 | PC.NURSE ---
IV leaking. Several attempts to get IV access by 5 different nurses but no success. Dr. Disla notified. Order for picc line. Encouraging po fluids.
[2023-07-21 15:42] VITALS: BP 152/76; PULSE 81; RESP 20; TEMP 36.7; O2SAT 98
[2023-07-21 16:29] LABS: Glucose, Whole Blood 149 mg/dL (60-115)
[2023-07-21] MEDS: 0.9 % Sodium Chloride Flush 3 ML SYRINGE IVFLUSH ×2 (16:51→23:31)
[2023-07-21] MEDS: DAPTOmycin 500 MG in 0.9 % Sodium Chloride 50 ML 100 MG IV (18:12)
[2023-07-21] MEDS: Sodium Bicarbonate 8.4% 100 MEQ in Dextrose 5 % 900 ML IV ×2 (18:43→22:37)
[2023-07-21 19:32] VITALS: BP 141/81; PULSE 83; RESP 18; TEMP 36.6; O2SAT 99
[2023-07-21 20:27] LABS: Glucose, Whole Blood 190 mg/dL (60-115)
[2023-07-22] MEDS: Heparin Sodium,Porcine 5,000 UNIT/ML VIAL 5000 UNIT SUBCUT ×3 (01:11→16:34)
[2023-07-22 03:01] VITALS: BP 134/72; PULSE 73; RESP 18; TEMP 36; O2SAT 97
[2023-07-22 05:45] LABS: MANUAL DIFF FLAG NO
[2023-07-22 05:46] LABS: Basophils Percent Auto 0.6 % (0-2); Eosinophils Absolute Auto 0.4 X10*3/uL (0.0-0.4); Eosinophils Percent Auto 5.5 % (0-4); Hematocrit 27.7 % (42.0-52.0); Hemoglobin 9.3 g/dl (14.0-18.0); Imm Gran Abs Auto 0.01 X10*3/uL (0.00-0.03); Imm Gran Pct Auto 0.2 % (0.0-0.4); Lymphocytes Absolute Auto 1.6 X10*3/uL (1.2-4.9); Lymphocytes Percent Auto 25.2 % (20-40); Mean Corpuscular HGB Conc 33.6 g/dl (31.0-36.0); Mean Corpuscular Hemoglobin 28.4 pg (27.0-33.0); Mean Corpuscular Volume 84.5 fL (80.0-98.0); Mean Platelet Volume 9.5 fL (9.4-12.4); Monocytes Absolute Auto 0.5 X10*3/uL (0.1-1.2); Monocytes Percent Auto 8.5 % (2-11); Neutrophils Absolute Auto 3.8 x10*3/uL (2.0-8.3); Platelet Count 200 X10*3/uL (160-400); Red Blood Count 3.28 X10*6/uL (4.60-5.80); Red Cell Distribution Width 13.4 % (11.0-16.0); White Blood Count 6.4 X10*3/uL (4.8-10.8)
[2023-07-22 06:03] LABS: Alanine Aminotransferase 10 U/L (0-40); Albumin Level 3.5 g/dL (3.5-5.0); Alkaline Phosphatase 51 U/L (39-117); Anion Gap 13 (12-20); Aspartate Amino Transferase 12 U/L (5-37); Bilirubin Total 0.3 mg/dL (0.0-1.0); Blood Urea Nitrogen 23 mg/dL (9-16); Calcium 9.3 mg/dL (8.4-10.2); Carbon Dioxide 20 mmol/L (22-29); Chloride 107 mmol/L (96-108); Creatinine Clr Calc Pharmacy 55.2; Estimated Glomerular Filt Rate 35; Glucose Fasting 151 mg/dL (60-99); Potassium 4.4 mmol/L (3.3-5.1); Sodium 136 mmol/L (135-145)
[2023-07-22] MEDS: Levothyroxine Sodium 150 MCG TABLET PO (06:03)
[2023-07-22] MEDS: Sodium Bicarbonate 8.4% 100 MEQ in Dextrose 5 % 900 ML IV ×2 (06:04→16:33)
[2023-07-22] MEDS: Famotidine 20 MG TABLET PO ×2 (06:05→16:33)
[2023-07-22 07:43] LABS: Glucose, Whole Blood 139 mg/dL (60-115)
[2023-07-22 09:33] LABS: Complement C3 55 mg/dL (82-185)
--- NOTE | 2023-07-22 09:35 | P.PICC_ITS ---
PICC Line Insertion NPICC Diagnosis: Osteomyelitis Indication: chcf ABT Pertinent Labs: reviewed Technique: Following informed consent including risks, benefits and alternatives and using sterile technique including cap and mask, sterile gown, glove and drape, the right arm was prepped and draped in the usual sterile fashion of full barrier technique with CHG. Following completion of [place] Protocol the skin and soft tissues were anesthetized with 1% Lidocaine plain. Using ultrasound guidance, right basilic vein access was obtained. Over an 0.018 wire through peel-away sheath, a 4fr single lumen PASV PICC line was positioned. Catheter length is 48cm internal length, 0cm external length, for a total trimmed length of 48cm. The procedure was performed in rm 272. Tip verification was performed by Jose Barajas with Sherlock 3CG. Tip located in SVC. Ultrasound was used to document vein patency and for needle entry. A formal ultrasound picture and cardiac rhythm strip was recorded. Vascular Experimental Box Tester has released the line for use and it is currently dressed with a StatLock, Tegaderm, and CHG disc. Verification has been performed for blood return and line patency. Arm Circumference: 32cm Equipment: CICCWORLD PowerPICC solo catheter with Sherlock 3CG Catheter Type: 4FR single lumen PASV Lot #: [id number]
[2023-07-22] MEDS: Gabapentin 100 MG CAPSULE PO ×3 (09:48→20:29)
[2023-07-22] MEDS: Cholecalciferol (Vitamin D3) 25 MCG TABLET 50 MCG PO (09:48)
[2023-07-22] MEDS: Ezetimibe 10 MG TABLET PO (09:48)
[2023-07-22] MEDS: Insulin Glargine,Hum.rec.anlog 100 UNIT/ML 10 ML VIAL 10 UNIT SUBCUT (09:48)
[2023-07-22] MEDS: Escitalopram Oxalate 10 MG TABLET PO (09:48)
[2023-07-22] MEDS: amLODIPine Besylate 10 MG TABLET PO (09:48)
[2023-07-22 10:44] VITALS: BP 144/83; PULSE 78; RESP 18; TEMP 36.1; O2SAT 97
[2023-07-22] MEDS: 0.9 % Sodium Chloride Flush 10 ML SYRINGE 5 ML IVFLUSH ×3 (11:09→20:29)
--- NOTE | 2023-07-22 11:32 | MHC.CM.PN ---
Picc line inserted today. Patient due for 1st dose 18:30. Per MD discharge tomorrow. DP B And E care via BLS.
[2023-07-22 11:42] LABS: Glucose, Whole Blood 229 mg/dL (60-115)
[2023-07-22] MEDS: Insulin Lispro 100 UNIT/ML 3 ML VIAL SUBCUT ×3 (11:42→20:29)
--- NOTE | 2023-07-22 12:05 | P.PNIM_ITS ---
Subjective Subjective Date of Service: 07/22/23 Interval History: Doing well overall. PICC line inserted without issue Physical Exam 2 Vital Signs: Vital Signs: Last Vital Signs Temp 97.0 F 07/22/23 10:44 Pulse 78 07/22/23 10:44 Resp 18 07/22/23 10:44 BP 144/83 H 07/22/23 10:44 Pulse Ox 97 07/22/23 10:44 O2 Del Method Room Air 07/22/23 10:44 BMI result Body Mass Index 41.0 Const: Other: Awake alert no acute distress Resp: Other: Clear to auscultation bilaterally no rales rhonchi or wheezes Cardio: Other: No S4; positive S1-S2; no S3 murmurs rubs or gallops GI: Other: Soft nontender nondistended normoactive bowel sounds Extrem: Other: No edema bilaterally Objective Data Active Medications Acetaminophen (Acetaminophen 325 Mg Tablet) 650 mg PO Q6H PRN PRN Reason: Pain, Mild (Pain Scale 1-3) Amlodipine Besylate (Amlodipine Besylate 10 Mg Tablet) 10 mg PO DAILY [facility]; Protocol Last Admin: 07/22/23 09:48 Dose: 10 mg Documented By: PEGGY Bisacodyl (Bisacodyl 10 Mg Supp.Rect) 10 mg [place] DAILY PRN PRN Reason: Constipation Dextrose (Dextrose 50 % 25 Gm/50 Ml Syringe) 25 gm IVPUSH Q15M PRN; Protocol PRN Reason: per Hypoglycemia Standing Ord. Ezetimibe (Ezetimibe 10 Mg Tablet) 10 mg PO DAILY [facility] Last Admin: 07/22/23 09:48 Dose: 10 mg Documented By: PEGGY Escitalopram Oxalate (Escitalopram Oxalate 10 Mg Tablet) 10 mg PO DAILY [facility] Last Admin: 07/22/23 09:48 Dose: 10 mg Documented By: PEGGY Famotidine (Famotidine 20 Mg Tablet) 20 mg PO BID@0630,1630 [facility] Last Admin: 07/22/23 06:05 Dose: 20 mg Documented By: APRIL Gabapentin (Gabapentin 100 Mg Capsule) 100 mg PO TID [facility] Last Admin: 07/22/23 09:48 Dose: 100 mg Documented By: PEGGY Glucose (Glucose Gel 15 Gm Gel..Gram.) 15 gm PO Q15M PRN; Protocol PRN Reason: per Hypoglycemia Standing Ord. Heparin Sodium (Porcine) (Heparin Sodium,Porcine 5,000 Unit/Ml Vial) 5,000 unit SUBCUT Q8H [facility] Last Admin: 07/22/23 09:49 Dose: 5,000 unit Documented By: PEGGY Meropenem 500 mg/ Sodium (Chloride) 50 mls @ 100 mls/hr IV Q12H [facility] Last Infusion: 07/22/23 06:34 Dose: Infused Documented By: APRIL Daptomycin 500 mg/ Sodium (Chloride) 60 mls @ 100 mls/hr IV Q48H [facility] Last Infusion: 07/21/23 18:48 Dose: Infused Documented By: DONALD Sodium Bicarbonate 100 meq/ (Dextrose) 1,000 mls @ 100 mls/hr IV .Q10H [facility] Last Admin: 07/22/23 06:04 Dose: 100 mls/hr Documented By: APRIL Insulin Glargine (Insulin Glargine,Hum.Rec.Anlog 100 Unit/Ml 10 Ml Vial) 10 unit SUBCUT DAILY [facility] Last Admin: 07/22/23 09:48 Dose: 10 unit Documented By: PEGGY Insulin Human Lispro (Insulin Lispro 100 Unit/Ml 3 Ml Vial) 0 unit SUBCUT QIDACHS [facility]; Protocol Last Admin: 07/22/23 11:42 Dose: 4 unit Documented By: PEGGY Levothyroxine Sodium (Levothyroxine Sodium 150 Mcg Tablet) 150 mcg PO DAILY@0600 [facility] Last Admin: 07/22/23 06:03 Dose: 150 mcg Documented By: APRIL Loperamide HCl (Loperamide Hcl 2 Mg Capsule) 2 mg PO Q4H PRN PRN Reason: Loose Stool Magnesium Hydroxide (Milk Of Magnesia 30 Ml Oral.Susp) 30 ml PO DAILY PRN PRN Reason: Constipation Non-Formulary Medication (Simvastatin) 40 mg PO BEDTIME [facility] Oxycodone HCl (Oxycodone Hcl Immed Release 5 Mg Tablet) 5 mg PO Q6H PRN PRN Reason: Pain, Severe (Pain Scale 7-10) Last Admin: 07/19/23 14:56 Dose: 5 mg Documented By: FLEX Prochlorperazine Edisylate (Prochlorperazine Edisylate 10 Mg/2 Ml Vial) 5 mg IVPUSH Q6H PRN PRN Reason: Nausea and Vomiting Sodium Biphosphate/Sodium Phosphate (Sodium Phosphate,[place]-Dibasic 133 Ml Enema) 133 ml [place] DAILY PRN PRN Reason: Constipation Sodium Chloride (0.9 % Sodium Chloride Flush 3 Ml Syringe) 3 ml IVFLUSH QSHIFT [facility] Last Admin: 07/22/23 09:48 Dose: Not Given Documented By: PEGGY Non-Admin Reason: IV Running Sodium Chloride (0.9 % Sodium Chloride Flush 10 Ml Syringe) 5 ml IVFLUSH TID [facility] Last Admin: 07/22/23 11:09 Dose: 5 ml Documented By: PEGGY Vitamin D (Cholecalciferol (Vitamin D3) 25 Mcg Tablet) 50 mcg PO DAILY [facility] Last Admin: 07/22/23 09:48 Dose: 50 mcg Documented By: PEGGY Labs 07/22/23 05:40 07/22/23 05:40 Labs: Laboratory Results - last 24 hr 07/20/23 07/21/23 07/21/23 06:01 16:23 20:21 MCV MCH MCHC RDW Plt Count MPV Immature Gran % (Auto) Neut % (Auto) Lymph % (Auto) [place] % (Auto) Eos % (Auto) Baso % (Auto) Lymph # (Auto) [place] # (Auto) Eos # (Auto) Baso # (Auto) Abs Immat Gran (auto) Absolute Neuts (auto) Absolute Nucleated RBC Nucleated RBC % (auto) Anion Gap Estim Creat Clear Calc Estimated GFR POC Glucose 149 H 190 H Fasting Glucose Calcium Total Bilirubin AST ALT Alkaline Phosphatase Total Protein Albumin Complement C3 55 L Complement C4 9 L 07/22/23 07/22/23 07/22/23 05:40 07:37 11:37 MCV 84.5 MCH 28.4 MCHC 33.6 RDW 13.4 Plt Count 200 MPV 9.5 Immature Gran % (Auto) 0.2 Neut % (Auto) 60.0 Lymph % (Auto) 25.2 [place] % (Auto) 8.5 Eos % (Auto) 5.5 H Baso % (Auto) 0.6 Lymph # (Auto) 1.6 [place] # (Auto) 0.5 Eos # (Auto) 0.4 Baso # (Auto) 0.0 Abs Immat Gran (auto) 0.01 Absolute Neuts (auto) 3.8 Absolute Nucleated RBC 0.000 Nucleated RBC % (auto) 0.0 Anion Gap 13 Estim Creat Clear Calc 55.2 Estimated GFR 35 POC Glucose 139 H 229 H Fasting Glucose 151 H Calcium 9.3 Total Bilirubin 0.3 AST 12 ALT 10 Alkaline Phosphatase 51 Total Protein 7.0 Albumin 3.5 Complement C3 Complement C4 Assessment and Plan (1) Acute kidney injury: Status: Acute (2) Acute osteomyelitis of right foot: Status: Acute Plan This is 52-year-old male with history of insulin-dependent type 2 diabetes, hypothyroidism, hyperlipidemia, hypertension, congestive heart failure, proteinuria, and nonhealing diabetic left foot ulcer s/p TMA presented with abdominal pain and found have severe JJ 1. JJ with metabolic acidosis -renals improving with volume -continue bicarb drip as ordered... Need to follow-up labs as IV DC for 24 hours secondary to access; CO2 decreased -follow renals/divalents 2.Type 2 diabetes mellitus -acceptable control on current therapies -lispro correctional scale -adjust as indicated 3.Essential hypertension -acceptable control on current therapies -hold ACEI 4.Osteomyelitis (right navicular bone) -meropenem(5)/daptomycin(3) -further treatments as per ID Heparin subQ. Full. Requires ongoing hospitalization for treatment of metabolic acidosis in the backdrop of acute kidney injury with bicarb and volume; also requires IV antibiotics for osteomyelitis Quality Stroke Does the patient have a stroke diagnosis?: No VTE Prior VTE?: No VTE Risk Level:: Medical - moderate - high VTE Device Contraindication: Treatment Not Indicated VTE Drug Contraindication: N/A - Med Ordered
--- NOTE | 2023-07-22 15:08 | HO.WOUND ---
Wound Consult: Initial 52yr old?M admitted to [facility] on 07/19 - See progress notes and H&P for detailed history.? Wound consult placed for Right thigh Skin Graft donor site and Right TMA site - Chronic Wound. Patient agreeable to assessment and photo documentation.? Right Thigh Skin Graft Donor Site - Clean and resurfacing - no s/s of infection continue with moist wound healing. Right TMA site Etiology: ?Diabetic Wound Measurements: 3cm x 4.5cm x 0.2cm Wound Bed: pale pink moist wound bed with areas of red pink tissue Drainage / Odor: moist after cleansing but Alginate was dry and stuck to wound bed when gauze was removed Edges: attached ? Alesia wound: [place] - no warmth, no Induration, Fluctuance noted, callused edges Pain: denies pain Goals of Treatment: ? Moist wound healing with wound gel Recommendations: 1. Turn and Reposition every 2 hours and as needed for patient comfort.? Use pillows or wedges to support off loading positions. 2. Off Load all bony prominences with use of pillows and heel boots if needed.? Apply Preventative foams where needed. ? 3. Monitor for incontinence and moisture control, use barrier creams when needed for prevention and treatment. 4. Provide adequate and supplemental nutrition.? 5. Order or Continue low air loss mattress. 6. When applicable maintain blood glucose levels per Providers order. 7. Right Lateral Thigh - Cleanse with NS moist gauze, pat dry. Apply single layer xeroform, cover with ABD pad and tape. Change Daily 8. Right TMA site - Cleanse with NS, pat dry. Apply Collagen wound gel to gauze apply to wound bed, cover with ABD Pad, gauze wrap. Change every other day. Re-consult wound care Nurse for wound deterioration or wound changes.
[2023-07-22 15:17] VITALS: BP 139/79; PULSE 76; RESP 18; TEMP 36.2; O2SAT 97
--- NOTE | 2023-07-22 16:08 | P.PNNP_ITS ---
Subjective Subjective Date of Service: 07/22/23 Interval history: Doing well overall. PICC line inserted without issue Physical Exam 2 Vital Signs: Vital Signs: Last Vital Signs Temp 97.2 F 07/22/23 15:17 Pulse 76 07/22/23 15:17 Resp 18 07/22/23 15:17 BP 139/79 07/22/23 15:17 Pulse Ox 97 07/22/23 15:17 O2 Del Method Room Air 07/22/23 15:17 BMI result Body Mass Index 41.0 Const: General: no acute distress Eyes: Eyelids: Yes eyelids normal Neck: Neck: Yes supple Resp: Auscultation: diminished lung sounds Cardio: Rate: regular rate GI: Palpation (GI): Soft to palpation Neuro: Other: Alert and awake Objective Data Labs 07/22/23 05:40 07/22/23 05:40 Labs: Laboratory Results - last 24 hr 07/20/23 07/21/23 07/21/23 06:01 16:23 20:21 WBC RBC Hgb Hct MCV MCH MCHC RDW Plt Count MPV Immature Gran % (Auto) Neut % (Auto) Lymph % (Auto) [place] % (Auto) Eos % (Auto) Baso % (Auto) Lymph # (Auto) [place] # (Auto) Eos # (Auto) Baso # (Auto) Abs Immat Gran (auto) Absolute Neuts (auto) Absolute Nucleated RBC Nucleated RBC % (auto) Sodium Potassium Chloride Carbon Dioxide Anion Gap BUN Creatinine Estim Creat Clear Calc Estimated GFR POC Glucose 149 H 190 H Fasting Glucose Calcium Total Bilirubin AST ALT Alkaline Phosphatase Total Protein Albumin Complement C3 55 L Complement C4 9 L 07/22/23 07/22/23 07/22/23 05:40 07:37 11:37 WBC 6.4 RBC 3.28 L Hgb 9.3 L Hct 27.7 L MCV 84.5 MCH 28.4 MCHC 33.6 RDW 13.4 Plt Count 200 MPV 9.5 Immature Gran % (Auto) 0.2 Neut % (Auto) 60.0 Lymph % (Auto) 25.2 [place] % (Auto) 8.5 Eos % (Auto) 5.5 H Baso % (Auto) 0.6 Lymph # (Auto) 1.6 [place] # (Auto) 0.5 Eos # (Auto) 0.4 Baso # (Auto) 0.0 Abs Immat Gran (auto) 0.01 Absolute Neuts (auto) 3.8 Absolute Nucleated RBC 0.000 Nucleated RBC % (auto) 0.0 Sodium 136 Potassium 4.4 Chloride 107 Carbon Dioxide 20 L Anion Gap 13 BUN 23 H Creatinine 2.03 H Estim Creat Clear Calc 55.2 Estimated GFR 35 POC Glucose 139 H 229 H Fasting Glucose 151 H Calcium 9.3 Total Bilirubin 0.3 AST 12 ALT 10 Alkaline Phosphatase 51 Total Protein 7.0 Albumin 3.5 Complement C3 Complement C4 Microbiology Microbiology Results: Microbiology 07/18/23 18:09 Blood - Venous Blood Culture - Preliminary No growth after 48 hours. 07/18/23 16:45 Blood - Venous Blood Culture - Preliminary No growth after 48 hours. Procedures Date of Service Date of Service: 07/22/23 Assessment & Plan Assessment and plan (1) Acute renal failure: Status: Acute Plan Acute Kidney injury due to tubular injury Known to have proteinuria Had been on ACEI which has caused altered autoregulation in the kidney ACEI on hold; D/Venu fenofibrate; Imaging- No hydro; Has good UO NO reason to suspect GN/AIN; No indication for renal replacement as cr is trending down Needs F/U with us in the office when D/Venu; Time Spent With Patient Time: Total time managing care of this patient today ____ minutes. Progress Note: Quality Stroke Does the patient have a stroke diagnosis?: No
[2023-07-22 16:20] LABS: Glucose, Whole Blood 178 mg/dL (60-115)
[2023-07-22 19:13] VITALS: BP 119/85; PULSE 78; RESP 18; TEMP 36.7; O2SAT 97
[2023-07-22 20:26] LABS: Glucose, Whole Blood 229 mg/dL (60-115)
[2023-07-23] MEDS: Heparin Sodium,Porcine 5,000 UNIT/ML VIAL 5000 UNIT SUBCUT ×3 (00:27→16:55)
[2023-07-23 03:45] VITALS: BP 121/66; PULSE 77; RESP 18; TEMP 36.2; O2SAT 98
[2023-07-23] MEDS: Sodium Bicarbonate 8.4% 100 MEQ in Dextrose 5 % 900 ML IV (05:14)
[2023-07-23 05:19] LABS: MANUAL DIFF FLAG NO
[2023-07-23 05:21] LABS: Basophils Absolute Auto 0.1 X10*3/uL (0.0-0.2); Basophils Percent Auto 0.7 % (0-2); Eosinophils Absolute Auto 0.5 X10*3/uL (0.0-0.4); Eosinophils Percent Auto 6.6 % (0-4); Hematocrit 29.7 % (42.0-52.0); Hemoglobin 9.9 g/dl (14.0-18.0); Imm Gran Abs Auto 0.02 X10*3/uL (0.00-0.03); Imm Gran Pct Auto 0.3 % (0.0-0.4); Lymphocytes Absolute Auto 1.7 X10*3/uL (1.2-4.9); Lymphocytes Percent Auto 23.4 % (20-40); Mean Corpuscular HGB Conc 33.3 g/dl (31.0-36.0); Mean Corpuscular Hemoglobin 28.3 pg (27.0-33.0); Mean Corpuscular Volume 84.9 fL (80.0-98.0); Mean Platelet Volume 9.9 fL (9.4-12.4); Monocytes Absolute Auto 0.6 X10*3/uL (0.1-1.2); Monocytes Percent Auto 7.9 % (2-11); Neutrophils Absolute Auto 4.6 x10*3/uL (2.0-8.3); Neutrophils Percent Auto 61.1 % (45-73); Platelet Count 231 X10*3/uL (160-400); Red Cell Distribution Width 13.2 % (11.0-16.0); White Blood Count 7.4 X10*3/uL (4.8-10.8)
[2023-07-23 05:34] LABS: Alanine Aminotransferase 16 U/L (0-40); Albumin Level 3.7 g/dL (3.5-5.0); Alkaline Phosphatase 59 U/L (39-117); Anion Gap 13 (12-20); Aspartate Amino Transferase 17 U/L (5-37); Bilirubin Total 0.3 mg/dL (0.0-1.0); Blood Urea Nitrogen 23 mg/dL (9-16); Calcium 9.8 mg/dL (8.4-10.2); Carbon Dioxide 23 mmol/L (22-29); Chloride 104 mmol/L (96-108); Creatinine Clr Calc Pharmacy 64.8; Estimated Glomerular Filt Rate 42; Glucose Fasting 206 mg/dL (60-99); Potassium 4.6 mmol/L (3.3-5.1); Sodium 135 mmol/L (135-145); Total Protein 7.7 g/dL (6.5-8.0)
[2023-07-23] MEDS: Levothyroxine Sodium 150 MCG TABLET PO (05:42)
[2023-07-23] MEDS: Famotidine 20 MG TABLET PO ×2 (05:42→16:55)
[2023-07-23 07:30] VITALS: BP 102/52; PULSE 74; RESP 20; TEMP 36.4; O2SAT 99
[2023-07-23 07:38] LABS: Glucose, Whole Blood 184 mg/dL (60-115)
[2023-07-23] MEDS: 0.9 % Sodium Chloride 1,000 ML 100 ML IVCONT ×2 (08:04→18:04)
[2023-07-23] MEDS: Gabapentin 100 MG CAPSULE PO ×3 (08:05→21:28)
[2023-07-23] MEDS: amLODIPine Besylate 10 MG TABLET PO (08:05)
[2023-07-23] MEDS: Insulin Lispro 100 UNIT/ML 3 ML VIAL SUBCUT ×3 (08:05→21:28)
[2023-07-23] MEDS: Insulin Glargine,Hum.rec.anlog 100 UNIT/ML 10 ML VIAL 10 UNIT SUBCUT (08:05)
[2023-07-23] MEDS: Cholecalciferol (Vitamin D3) 25 MCG TABLET 50 MCG PO (08:06)
[2023-07-23] MEDS: Escitalopram Oxalate 10 MG TABLET PO (08:06)
[2023-07-23] MEDS: Ezetimibe 10 MG TABLET PO (08:06)
--- NOTE | 2023-07-23 08:26 | P.CDIM_ITS ---
PROVIDER RESPONSE TEXT: To clarify, the appropriate diagnosis supported by the clinical indicators: Acute QUERY TEXT: PHYSICIAN'S DOCUMENTATION REQUEST Date of Query: 07/22/2023 07:34 AM EST Patient Name: Mehul Beltran Admit Date: 07/19/2023 Dear Humble Disla, A review of the medical record indicates additional documentation may be needed. Please review below and update the documentation accordingly. Clinical Indicators: PN: metabolic acidosis likely secondary to volume depletion due to nausea and vomiting. Clarify which of the following accurately represents the acuity of the Metabolic acidosis: Possible options might include: Acute Acute on chronic Other (explain) Clinically unable to determine (explain) Thank you, Elizabeth Perdue, CCS, CDIS Use of terms such as suspected, likely, concern for, or probable (associated with a specific diagnosi s that is being evaluated, monitored, or treated as if it exists) are acceptable and can be coded in the inpatient se tting, when documented at the time of discharge. Please use your independent medical judgment in providing your response. THIS QUERY IS PART OF THE PERMANENT MEDICAL RECORD
--- NOTE | 2023-07-23 08:26 | P.CDIM_ITS ---
PROVIDER RESPONSE TEXT: To clarify, the appropriate diagnosis supported by the clinical indicators: Acute osteomyelitis right navicular bone QUERY TEXT: PHYSICIAN'S DOCUMENTATION REQUEST Date of Query: 07/22/2023 08:12 AM EST Patient Name: Mehul Beltran Admit Date: 07/19/2023 Dear Humble Disla, A review of the medical record indicates additional documentation may be needed. Please review below and update the documentation accordingly. Clinical Indicators: Progress note 07/21 - Osteomyelitis (right navicular bone) Metopenem (4) Daptomycin (2) Based on the above, please clarify within the Plan of the progress notes any further specificity rega rding the acuity of the Osteomyelitis. Acute osteomyelitis right navicular bone Subacute osteomyelitis Chronic osteomyelitis Other (explain) Clinically unable to determine (explain) Thank you, Elizabeth Perdue, CCS, CDIS Use of terms such as suspected, likely, concern for, or probable (associated with a specific diagnosi s that is being evaluated, monitored, or treated as if it exists) are acceptable and can be coded in the inpatient se tting, when documented at the time of discharge. Please use your independent medical judgment in providing your response. THIS QUERY IS PART OF THE PERMANENT MEDICAL RECORD
--- NOTE | 2023-07-23 09:16 | PM.PNNEP ---
Subjective Subjective Date of Service: 07/23/23 Interval history: Doing well overall. PICC line inserted without issue. Serum creatinine improving Physical Exam Vital Signs: Vital Signs: Last Vital Signs Temp 97.5 F 07/23/23 07:30 Pulse 74 07/23/23 07:30 Resp 20 07/23/23 07:30 BP 102/52 L 07/23/23 07:30 Pulse Ox 99 07/23/23 07:30 O2 Del Method Room Air 07/23/23 07:30 BMI result Body Mass Index 41.0 Const: General: comfortable and no acute distress Orientation/consciousness: patient oriented x3 HEENT: Head: Yes normocephalic Mouth: Normal oral and palatal mucosa present Eyes: EOM: EOMs intact bilaterally Neck: Neck: Yes supple Resp: Auscultation: clear to auscultation bilaterally Cardio: Jugular venous distension: no JVD Rate: regular rate GI: Palpation (GI): Soft to palpation Auscultation: normal bowel sounds : General: Yes no CVA tenderness Back/Spine/Pelvis: Back: no CVA tenderness Skin: General skin exam: no rashes or lesions noted Neuro: General: patient oriented x3 and moves all extremities Extrem: General: Yes no pedal edema Objective Data Labs 07/23/23 04:55 07/23/23 04:55 Labs: Laboratory Results - last 24 hr 07/20/23 07/22/23 07/22/23 06:01 11:37 16:17 WBC RBC Hgb Hct MCV MCH MCHC RDW Plt Count MPV Immature Gran % (Auto) Neut % (Auto) Lymph % (Auto) [place] % (Auto) Eos % (Auto) Baso % (Auto) Lymph # (Auto) [place] # (Auto) Eos # (Auto) Baso # (Auto) Abs Immat Gran (auto) Absolute Neuts (auto) Absolute Nucleated RBC Nucleated RBC % (auto) Sodium Potassium Chloride Carbon Dioxide Anion Gap BUN Creatinine Estim Creat Clear Calc Estimated GFR POC Glucose 229 H 178 H Fasting Glucose Calcium Total Bilirubin AST ALT Alkaline Phosphatase Total Protein Albumin Complement C3 55 L Complement C4 9 L 07/22/23 07/23/23 07/23/23 20:22 04:55 07:34 WBC 7.4 RBC 3.50 L Hgb 9.9 L Hct 29.7 L MCV 84.9 MCH 28.3 MCHC 33.3 RDW 13.2 Plt Count 231 MPV 9.9 Immature Gran % (Auto) 0.3 Neut % (Auto) 61.1 Lymph % (Auto) 23.4 [place] % (Auto) 7.9 Eos % (Auto) 6.6 H Baso % (Auto) 0.7 Lymph # (Auto) 1.7 [place] # (Auto) 0.6 Eos # (Auto) 0.5 H Baso # (Auto) 0.1 Abs Immat Gran (auto) 0.02 Absolute Neuts (auto) 4.6 Absolute Nucleated RBC 0.000 Nucleated RBC % (auto) 0.0 Sodium 135 Potassium 4.6 Chloride 104 Carbon Dioxide 23 Anion Gap 13 BUN 23 H Creatinine 1.73 H Estim Creat Clear Calc 64.8 Estimated GFR 42 POC Glucose 229 H 184 H Fasting Glucose 206 H Calcium 9.8 Total Bilirubin 0.3 AST 17 ALT 16 Alkaline Phosphatase 59 Total Protein 7.7 Albumin 3.7 Complement C3 Complement C4 Microbiology Microbiology Results: Microbiology 07/18/23 18:09 Blood - Venous Blood Culture - Preliminary No growth after 48 hours. 07/18/23 16:45 Blood - Venous Blood Culture - Preliminary No growth after 48 hours. Procedures Date of Service Date of Service: 07/23/23 Assessment & Plan Assessment and plan (1) Acute kidney injury: Status: Acute Plan Acute Kidney injury due to tubular injury; Known to have proteinuria Had been on ACEI which has caused altered autoregulation in the kidney ACEI on hold; D/Venu fenofibrate; Imaging- No hydro; Has good UO; renal functions improving NO reason to suspect GN/AIN; No indication for renal replacement as cr is trending down Needs F/U with me in the office when D/Venu Progress Note: Quality Stroke Does the patient have a stroke diagnosis?: No
[2023-07-23 11:24] LABS: Glucose, Whole Blood 135 mg/dL (60-115)
--- NOTE | 2023-07-23 12:04 | HO.PM.IMPN ---
Subjective Subjective Date of Service: 07/23/23 Interval History: Continues to improve. No acute issues Physical Exam Vital Signs: Vital Signs: Last Vital Signs Temp 97.5 F 07/23/23 07:30 Pulse 74 07/23/23 07:30 Resp 20 07/23/23 07:30 BP 102/52 L 07/23/23 07:30 Pulse Ox 99 07/23/23 07:30 O2 Del Method Room Air 07/23/23 07:30 BMI result Body Mass Index 41.0 Const: Other: Awake alert no acute distress Resp: Other: Clear to auscultation bilaterally no rales rhonchi or wheezes Cardio: Other: No S4; positive S1-S2; no S3 murmurs rubs or gallops GI: Other: Soft nontender nondistended normoactive bowel sounds Extrem: Other: No edema bilaterally Objective Data Active Medications Acetaminophen (Acetaminophen 325 Mg Tablet) 650 mg PO Q6H PRN PRN Reason: Pain, Mild (Pain Scale 1-3) Amlodipine Besylate (Amlodipine Besylate 10 Mg Tablet) 10 mg PO DAILY [facility]; Protocol Last Admin: 07/23/23 08:05 Dose: 10 mg Documented By: SHAWNEMA Bisacodyl (Bisacodyl 10 Mg Supp.Rect) 10 mg MS DAILY PRN PRN Reason: Constipation Dextrose (Dextrose 50 % 25 Gm/50 Ml Syringe) 25 gm IVPUSH Q15M PRN; Protocol PRN Reason: per Hypoglycemia Standing Ord. Ezetimibe (Ezetimibe 10 Mg Tablet) 10 mg PO DAILY [facility] Last Admin: 07/23/23 08:06 Dose: 10 mg Documented By: SHAWNEMA Escitalopram Oxalate (Escitalopram Oxalate 10 Mg Tablet) 10 mg PO DAILY [facility] Last Admin: 07/23/23 08:06 Dose: 10 mg Documented By: SHAWNEMA Famotidine (Famotidine 20 Mg Tablet) 20 mg PO BID@0630,1630 [facility] Last Admin: 07/23/23 05:42 Dose: 20 mg Documented By: NAHID Gabapentin (Gabapentin 100 Mg Capsule) 100 mg PO TID [facility] Last Admin: 07/23/23 08:05 Dose: 100 mg Documented By: SHAWNEMA Glucose (Glucose Gel 15 Gm Gel..Gram.) 15 gm PO Q15M PRN; Protocol PRN Reason: per Hypoglycemia Standing Ord. Heparin Sodium (Porcine) (Heparin Sodium,Porcine 5,000 Unit/Ml Vial) 5,000 unit SUBCUT Q8H [facility] Last Admin: 07/23/23 08:05 Dose: 5,000 unit Documented By: JANETT Meropenem 500 mg/ Sodium (Chloride) 50 mls @ 100 mls/hr IV Q12H [facility] Last Infusion: 07/23/23 06:26 Dose: Infused Documented By: NAHID Daptomycin 500 mg/ Sodium (Chloride) 60 mls @ 100 mls/hr IV Q48H [facility] Last Infusion: 07/21/23 18:48 Dose: Infused Documented By: DONALD Sodium Chloride (Ns) 1,000 mls @ 100 mls/hr IVCONT .Q10H [facility] Last Admin: 07/23/23 08:04 Dose: 100 mls/hr Documented By: JANETT Insulin Glargine (Insulin Glargine,Hum.Rec.Anlog 100 Unit/Ml 10 Ml Vial) 10 unit SUBCUT DAILY [facility] Last Admin: 07/23/23 08:05 Dose: 10 unit Documented By: JANETT Insulin Human Lispro (Insulin Lispro 100 Unit/Ml 3 Ml Vial) 0 unit SUBCUT QIDACHS [facility]; Protocol Last Admin: 07/23/23 11:25 Dose: Not Given Documented By: JANETT Non-Admin Reason: No Insulin Coverage Levothyroxine Sodium (Levothyroxine Sodium 150 Mcg Tablet) 150 mcg PO DAILY@0600 [facility] Last Admin: 07/23/23 05:42 Dose: 150 mcg Documented By: NAHID Loperamide HCl (Loperamide Hcl 2 Mg Capsule) 2 mg PO Q4H PRN PRN Reason: Loose Stool Magnesium Hydroxide (Milk Of Magnesia 30 Ml Oral.Susp) 30 ml PO DAILY PRN PRN Reason: Constipation Non-Formulary Medication (Simvastatin) 40 mg PO BEDTIME [facility] Oxycodone HCl (Oxycodone Hcl Immed Release 5 Mg Tablet) 5 mg PO Q6H PRN PRN Reason: Pain, Severe (Pain Scale 7-10) Last Admin: 07/19/23 14:56 Dose: 5 mg Documented By: GRAZIC Prochlorperazine Edisylate (Prochlorperazine Edisylate 10 Mg/2 Ml Vial) 5 mg IVPUSH Q6H PRN PRN Reason: Nausea and Vomiting Sodium Biphosphate/Sodium Phosphate (Sodium Phosphate,[place]-Dibasic 133 Ml Enema) 133 ml MS DAILY PRN PRN Reason: Constipation Sodium Chloride (0.9 % Sodium Chloride Flush 3 Ml Syringe) 3 ml IVFLUSH QSHIFT [facility] Last Admin: 07/23/23 07:28 Dose: Not Given Documented By: COTEMA Non-Admin Reason: IV Running Sodium Chloride (0.9 % Sodium Chloride Flush 10 Ml Syringe) 5 ml IVFLUSH TID [facility] Last Admin: 07/23/23 07:28 Dose: Not Given Documented By: COTEMA Non-Admin Reason: IV Running Vitamin D (Cholecalciferol (Vitamin D3) 25 Mcg Tablet) 50 mcg PO DAILY [facility] Last Admin: 07/23/23 08:06 Dose: 50 mcg Documented By: JANETT Labs 07/23/23 04:55 07/23/23 04:55 Labs: Laboratory Results - last 24 hr 07/22/23 07/22/23 07/23/23 16:17 20:22 04:55 MCV 84.9 MCH 28.3 MCHC 33.3 RDW 13.2 Plt Count 231 MPV 9.9 Immature Gran % (Auto) 0.3 Neut % (Auto) 61.1 Lymph % (Auto) 23.4 [place] % (Auto) 7.9 Eos % (Auto) 6.6 H Baso % (Auto) 0.7 Lymph # (Auto) 1.7 [place] # (Auto) 0.6 Eos # (Auto) 0.5 H Baso # (Auto) 0.1 Abs Immat Gran (auto) 0.02 Absolute Neuts (auto) 4.6 Absolute Nucleated RBC 0.000 Nucleated RBC % (auto) 0.0 Anion Gap 13 Estim Creat Clear Calc 64.8 Estimated GFR 42 POC Glucose 178 H 229 H Fasting Glucose 206 H Calcium 9.8 Total Bilirubin 0.3 AST 17 ALT 16 Alkaline Phosphatase 59 Total Protein 7.7 Albumin 3.7 07/23/23 07/23/23 07:34 11:19 MCV MCH MCHC RDW Plt Count MPV Immature Gran % (Auto) Neut % (Auto) Lymph % (Auto) [place] % (Auto) Eos % (Auto) Baso % (Auto) Lymph # (Auto) [place] # (Auto) Eos # (Auto) Baso # (Auto) Abs Immat Gran (auto) Absolute Neuts (auto) Absolute Nucleated RBC Nucleated RBC % (auto) Anion Gap Estim Creat Clear Calc Estimated GFR POC Glucose 184 H 135 H Fasting Glucose Calcium Total Bilirubin AST ALT Alkaline Phosphatase Total Protein Albumin Assessment and Plan (1) Acute kidney injury: Status: Acute (2) Acute osteomyelitis of right foot: Status: Acute Plan This is 52-year-old male with history of insulin-dependent type 2 diabetes, hypothyroidism, hyperlipidemia, hypertension, congestive heart failure, proteinuria, and nonhealing diabetic left foot ulcer s/p TMA presented with abdominal pain and found have severe JJ 1. JJ with metabolic acidosis -renals improving with volume -DC IV bicarb -follow renals/divalents 2.Type 2 diabetes mellitus -acceptable control on current therapies -lispro correctional scale -adjust as indicated 3.Essential hypertension -acceptable control on current therapies -hold ACEI 4.Osteomyelitis (right navicular bone) -meropenem(6)/daptomycin(4) -further treatments as per ID Heparin subQ. Full. Requires ongoing hospitalization for treatment of metabolic acidosis in the backdrop of acute kidney injury with bicarb and volume; also requires IV antibiotics for osteomyelitis Quality Stroke Does the patient have a stroke diagnosis?: No VTE Prior VTE?: No VTE Risk Level:: Medical - moderate - high VTE Device Contraindication: Treatment Not Indicated VTE Drug Contraindication: N/A - Med Ordered
[2023-07-23 15:48] VITALS: BP 158/74; PULSE 79; RESP 20; TEMP 36.4; O2SAT 98
--- NOTE | 2023-07-23 15:54 | MHC.CM.PN ---
Per MD rounds discharge is planned for tomorrow. Bicarb gtt dc yesterday. The pt will be monitored overnight. DC is planned for tomorrow. DP return to [facility] via BLS.
[2023-07-23 16:32] LABS: Glucose, Whole Blood 203 mg/dL (60-115)
[2023-07-23] MEDS: DAPTOmycin 500 MG in 0.9 % Sodium Chloride 50 ML 100 MG IV (16:55)
[2023-07-23 19:03] VITALS: BP 119/69; PULSE 79; RESP 20; TEMP 36.4; O2SAT 99
[2023-07-23 20:20] LABS: Glucose, Whole Blood 208 mg/dL (60-115)
[2023-07-24] MEDS: Heparin Sodium,Porcine 5,000 UNIT/ML VIAL 5000 UNIT SUBCUT ×2 (00:44→08:56)
[2023-07-24 03:24] VITALS: BP 129/79; PULSE 71; RESP 18; TEMP 36.2; O2SAT 99
[2023-07-24] MEDS: 0.9 % Sodium Chloride 1,000 ML 100 ML IVCONT (04:47)
[2023-07-24] MEDS: Famotidine 20 MG TABLET PO (06:13)
[2023-07-24] MEDS: Levothyroxine Sodium 150 MCG TABLET PO (06:13)
[2023-07-24 06:28] LABS: MANUAL DIFF FLAG NO
[2023-07-24 06:55] LABS: Basophils Absolute Auto 0.1 X10*3/uL (0.0-0.2); Basophils Percent Auto 0.7 % (0-2); Eosinophils Absolute Auto 0.5 X10*3/uL (0.0-0.4); Eosinophils Percent Auto 7.3 % (0-4); Hemoglobin 9.8 g/dl (14.0-18.0); Imm Gran Abs Auto 0.02 X10*3/uL (0.00-0.03); Imm Gran Pct Auto 0.3 % (0.0-0.4); Lymphocytes Absolute Auto 1.5 X10*3/uL (1.2-4.9); Lymphocytes Percent Auto 21.4 % (20-40); Mean Corpuscular HGB Conc 32.7 g/dl (31.0-36.0); Mean Corpuscular Hemoglobin 28.1 pg (27.0-33.0); Mean Platelet Volume 9.6 fL (9.4-12.4); Monocytes Absolute Auto 0.6 X10*3/uL (0.1-1.2); Monocytes Percent Auto 7.9 % (2-11); Neutrophils Absolute Auto 4.3 x10*3/uL (2.0-8.3); Neutrophils Percent Auto 62.4 % (45-73); Platelet Count 235 X10*3/uL (160-400); Red Blood Count 3.49 X10*6/uL (4.60-5.80); Red Cell Distribution Width 13.4 % (11.0-16.0)
[2023-07-24 06:57] LABS: Alanine Aminotransferase 24 U/L (0-40); Albumin Level 3.7 g/dL (3.5-5.0); Alkaline Phosphatase 60 U/L (39-117); Anion Gap 13 (12-20); Aspartate Amino Transferase 24 U/L (5-37); Bilirubin Total 0.3 mg/dL (0.0-1.0); Blood Urea Nitrogen 20 mg/dL (9-16); Calcium 9.1 mg/dL (8.4-10.2); Carbon Dioxide 20 mmol/L (22-29); Chloride 110 mmol/L (96-108); Creatinine Clr Calc Pharmacy 78.4; Estimated Glomerular Filt Rate 52; Glucose Fasting 144 mg/dL (60-99); Potassium 4.9 mmol/L (3.3-5.1); Sodium 138 mmol/L (135-145); Total Protein 7.4 g/dL (6.5-8.0)
[2023-07-24 07:16] VITALS: BP 150/83; PULSE 78; RESP 16; TEMP 36.2; O2SAT 99
[2023-07-24 07:39] LABS: Glucose, Whole Blood 127 mg/dL (60-115)
[2023-07-24] MEDS: Insulin Glargine,Hum.rec.anlog 100 UNIT/ML 10 ML VIAL 10 UNIT SUBCUT (08:15)
[2023-07-24] MEDS: Ezetimibe 10 MG TABLET PO (08:15)
[2023-07-24] MEDS: Gabapentin 100 MG CAPSULE PO (08:15)
[2023-07-24] MEDS: Cholecalciferol (Vitamin D3) 25 MCG TABLET 50 MCG PO (08:15)
[2023-07-24] MEDS: Escitalopram Oxalate 10 MG TABLET PO (08:15)
[2023-07-24] MEDS: amLODIPine Besylate 10 MG TABLET PO (08:15)
--- NOTE | 2023-07-24 11:22 | PM.DS ---
DS: Providers Provider Date of Service: 07/24/23 Date of admission: 07/19/23 00:34 Date of discharge: 07/24/23 Primary care physician: Adwoa Fan MD Consults: 07/19/23 04:16 Consult to Nephrology Routine Consulting Provider: Checo Alonzo Reason for consultation: JJ, acidosis, hyperK Has provider been notified: Yes 07/19/23 18:13 Consult to Infectious Diseases Routine Consulting Provider: RUBEN MUNSON Reason for consultation: osteomylitis 07/20/23 13:57 Consult to Wound Care Routine Reason for consultation: skin graft site right thigh and amp site right foot DS: Diagnosis Discharge Diagnosis (1) Acute kidney injury: Status: Acute (2) Acute osteomyelitis of right foot: Status: Acute DS: Summary Hospital Course Hospital Course: 52 years old Korean-speaking man with past medical history significant for type 2 diabetes mellitus, essential hypertension, hyperlipidemia, hypothyroidism and recent failed skin graft of the right lower extremity stump presents to the emergency department complaining of generalized abdominal pain, vomiting, fever and diarrhea. Patient is a very vague historian. He denied chest pain, shortness on breath or cough. He denied any acute urinary symptoms. He denied tobacco smoking, alcohol abuse or illicit drug use. History was addressed in Korean. In the ED, he was found to have stable vital signs. Blood workup is remarkable for mildly elevated creatinine, 8.2 (it was 1.5 a week ago). There is no leukocytosis. Potassium slightly elevated, 4.4. Bicarbonate is low (12). He lactic acid was initially 4.3, the most recent 1 is 3.2. Lipase is 342. C diff is negative. Viral testing for COVID-19 a influenza are negative. Urinalysis shows no evidence of urinary tract infection. There is mild proteinuria. CXR showed mild peribronchial thickening without acute intrathoracic pathology. Right foot x-rays show postsurgical changes of the right transmetatarsal amputation with associated bony remodeling, there is no definitive evidence of bony erosive changes and the amputation talked to suggest osteomyelitis. However, there is a bony erosion involving the anteromedial navicular bone at the naviculocuneiform joint concerning for osteomyelitis. Abdomen pelvis CT scan showed [id number] circumferential bladder wall thickening which could be related to bladder outlet obstruction or urinary tract infection, there is mild thickening of the rectosigmoid colon which are no specific or could reflect distal proctocolitis. Hospital Course Patient admitted to general medical floor and started on broad-spectrum antibiotics for his osteomyelitis. He initially was admitted with acute renal failure with creatinine of 8.2; he was volume resuscitated with gradual improvement in his creatinine however his acidosis worsened. He was seen in consultation by Nephrology and placed on a bicarb drip. His creatinine continued to improve and on the day of discharge it is 1.43. He was also seen in consultation by Infectious Disease and recommended daptomycin 500 mg IV daily for 6 weeks to treat osteomyelitis. Completed 1 week at [facility]. At this time he is medically acceptable having been off the bicarb drip 24 hours without a change in his serum bicarb. He will be discharged back to SNF and followed up by Nephrology as an outpatient. He will need weekly follow-up of his renal function electrolytes Time Attestation Discharge coordination time: Greater than 30 minutes Quality: Safe Use of Opioids Does Pt have an Active Cancer Diagnosis on the Problem List?: No Quality: Stroke Does the patient have a stroke diagnosis?: No Physical Exam Vital Signs: Vital Signs: Last Vital Signs Temp 97.1 F 07/24/23 07:16 Pulse 78 07/24/23 07:16 Resp 16 07/24/23 07:16 BP 150/83 H 07/24/23 07:16 Pulse Ox 99 07/24/23 07:16 O2 Del Method Room Air 07/24/23 07:16 BMI result Body Mass Index 41.0 Const: Other: Awake alert no acute distress Resp: Other: Clear to auscultation bilaterally no rales rhonchi or wheezes Cardio: Other: No S4; positive S1-S2; no S3 murmurs rubs or gallops GI: Other: Soft nontender nondistended normoactive bowel sounds Extrem: Other: No edema bilaterally DS: Data Data Completed and Pending Completed studies during hospitalization [Text1]: Procedures Compression of Right Foot using Pressure Dressing (09/03/22) Detachment at Right Foot, Partial 1st Ray, Open Approach (09/03/22) Detachment at Right Foot, Partial 2nd Ray, Open Approach (09/03/22) Detachment at Right Foot, Partial 3rd Ray, Open Approach (09/03/22) Detachment at Right Foot, Partial 4th Ray, Open Approach (09/03/22) Detachment at Right Foot, Partial 5th Ray, Open Approach (09/03/22) Drainage of Right Foot Skin, External Approach (09/03/22) Excision of Right Foot Skin, External Approach (09/03/22) Excision of Right Upper Leg Skin, External Approach (07/10/23) Insertion of Infusion Device into Superior Vena Cava, Percutaneous Approach (09/03/22) Replacement of Right Foot Skin with Autologous Tissue Substitute, Partial Thickness, External Approach (07/10/23) Resection of Gallbladder, Percutaneous Endoscopic Approach (10/13/22) Transfusion of Nonautologous Red Blood Cells into Peripheral Vein, Percutaneous Approach (10/13/22) Ultrasonography of Superior Vena Cava, Guidance (09/03/22) Labs on day of discharge: Laboratory Results - last 24 hr 07/23/23 07/23/23 07/23/23 11:19 16:27 20:11 WBC RBC Hgb Hct MCV MCH MCHC RDW Plt Count MPV Immature Gran % (Auto) Neut % (Auto) Lymph % (Auto) [place] % (Auto) Eos % (Auto) Baso % (Auto) Lymph # (Auto) [place] # (Auto) Eos # (Auto) Baso # (Auto) Abs Immat Gran (auto) Absolute Neuts (auto) Absolute Nucleated RBC Nucleated RBC % (auto) Sodium Potassium Chloride Carbon Dioxide Anion Gap BUN Creatinine Estim Creat Clear Calc Estimated GFR POC Glucose 135 H 203 H 208 H Fasting Glucose Calcium Total Bilirubin AST ALT Alkaline Phosphatase Total Protein Albumin 07/24/23 07/24/23 06:12 07:18 WBC 7.0 RBC 3.49 L Hgb 9.8 L Hct 30.0 L MCV 86.0 MCH 28.1 MCHC 32.7 RDW 13.4 Plt Count 235 MPV 9.6 Immature Gran % (Auto) 0.3 Neut % (Auto) 62.4 Lymph % (Auto) 21.4 [place] % (Auto) 7.9 Eos % (Auto) 7.3 H Baso % (Auto) 0.7 Lymph # (Auto) 1.5 [place] # (Auto) 0.6 Eos # (Auto) 0.5 H Baso # (Auto) 0.1 Abs Immat Gran (auto) 0.02 Absolute Neuts (auto) 4.3 Absolute Nucleated RBC 0.000 Nucleated RBC % (auto) 0.0 Sodium 138 Potassium 4.9 Chloride 110 H Carbon Dioxide 20 L Anion Gap 13 BUN 20 H Creatinine 1.43 H Estim Creat Clear Calc 78.4 Estimated GFR 52 POC Glucose 127 H Fasting Glucose 144 H Calcium 9.1 D Total Bilirubin 0.3 AST 24 ALT 24 Alkaline Phosphatase 60 Total Protein 7.4 Albumin 3.7 Discharge Plan Discharge Patient Disposition: Xfer [facility] Discharge Diagnosis: Acute osteomyelitis right foot Referrals: Adwoa Mcadams MD [Primary Care Provider] - 1 Week Discharge Medications: New daptomycin [Cubicin RF] 500 mg recon soln 500 mg IV Q24H 35 Days Rx Instructions: administer over 30 mins Continued (DME) FreeStyle Precision Gama Strips Strip See Rx Instructions .ROUTE .MEDSUPPLY Qty: 50 11RF Rx Instructions: As directed once daily (DME) FreeStyle Leonel 2 Sensor Kit See Rx Instructions .ROUTE .MEDSUPPLY Qty: 2 11RF Rx Instructions: As directed every 2 weeks (DME) right knee brace See Rx Instructions .Route .MEDSUPPLY Qty: 1 0RF Rx Instructions: As directed (DME) wrist splint bilateral See Rx Instructions .Route .MEDSUPPLY Qty: 2 0RF Rx Instructions: As directed (DME) high shower chair See Rx Instructions .Route .MEDSUPPLY Qty: 1 0RF Rx Instructions: As directed (DME) raised toilet seat See Rx Instructions .Route .MEDSUPPLY Qty: 1 0RF Rx Instructions: As directed metformin 500 mg tablet 1,000 mg PO BID ondansetron HCl 4 mg tablet 4 mg PO Q8H PRN (Reason: Nausea) simvastatin 40 mg tablet 40 mg PO BEDTIME amlodipine 10 mg tablet 10 mg PO DAILY lisinopril 10 mg tablet 10 mg PO DAILY levothyroxine 150 mcg tablet 150 mcg PO DAILY gabapentin 100 mg capsule 100 mg PO TID escitalopram oxalate 10 mg tablet 10 mg PO DAILY ezetimibe 10 mg tablet 10 mg PO DAILY fenofibrate 54 mg tablet 54 mg PO DAILY insulin degludec [Tresiba FlexTouch U-200] 200 unit/mL (3 mL) insulin pen 20 unit subcut QAM cholecalciferol (vitamin D3) 50 mcg (2,000 unit) capsule 50 mcg PO DAILY acetaminophen 325 mg Tablet 650 mg PO Q4H PRN (Reason: Fever Or Pain) magnesium hydroxide [Milk of Magnesia] 400 mg/5 mL Suspension 30 ml PO DAILY PRN (Reason: Constipation) bisacodyl 10 mg Suppository 10 mg NH DAILY PRN (Reason: Constipation) Fleet Enema 19-7 gram/118 mL Enema 118 ml NH DAILY PRN (Reason: Constipation) Saccharomyces boulardii [Probiotic (S.boulardii)] 250 mg Capsule 250 mg PO BID Rx Instructions: UNTIL 11/02/22 loperamide 2 mg Tablet 2 mg PO Q4H PRN (Reason: Loose Stool) Rx Instructions: administer after each loose stool until symptoms controlled; do not exceed 8 mg per 24 hrs famotidine 20 mg Tablet 20 mg PO BID ammonium lactate 12 % Cream 1 appl TOPICAL DAILY Rx Instructions: left foot insulin lispro 100 unit/mL Solution See Protocol SUBCUT QIDACHS Protocol: Insulin Correction Scale Less than or equal to 110 ---- Give (units): 0 111 to 150 Give (units): 0 151 to 200 Give (units): 2 201 to 250 Give (units): 4 251 to 300 Give (units): 6 301 to 350 Give (units): 8 Greater than 350 Give (units): 10 Call MD if Blood Glucose > : 350 Trulicity 3 mg/0.5 mL Pen Injector 3 mg SUBCUT TU (DME) dressing, collagen-silver 2 X 2.2 bandage See Rx Instructions .Route Qty: 50 0RF Rx Instructions: Apply to right foot wound with 4x4 and Kerlex QOD Discharge Orders: Discharge Order (Routine); Ordered 07/24/23 Ordered By: Humble Disla Diet: Advance to usual diet Activity on Discharge: As tolerated Stand Alone Forms: Patient Portal Discharge page Care Plan Goals: Resume all pre-hospital medications Health Concerns: For the osteomyelitis daptomycin 500 mg daily for 5 weeks as patient has completed 1 week in house Plan of Treatment: Further plans as per receiving facility Assessment: See discharge summary
[2023-07-24 11:46] LABS: Glucose, Whole Blood 202 mg/dL (60-115)
[2023-07-24] MEDS: Insulin Lispro 100 UNIT/ML 3 ML VIAL SUBCUT (12:21)
--- NOTE | 2023-07-24 12:44 | MHC.CM.PN ---
IMM 07/24/23 Patient is discharged to [facility] via BLS. Transport is scheduled for 1:30pm corn picker.
== END 2023-07-24 14:15 | DRG 683 ==
LOC: HO.ED 21:33 → HO.EDOVER 07-19 00:39 → HO.S3 07-19 13:43
PROVIDERS: Internal Medicine; Internal Medicine Nephrology; Physician Assistant; Student in an Organized Health Care Education/Training Program; Admitting Provider Internal Medicine; Emergency Provider Emergency Medicine; PCP Internal Medicine; Visit Provider Hospitalist
PROC: 02HV33Z Insertion of Infusion Device into Superior Vena Cava, Percutaneous Approach (ICD-10-PCS; principal; 2023-07-22 08:00)
DX: N17.0 Acute kidney failure with tubular necrosis (principal); E87.21 Acute metabolic acidosis; M86.171 Other acute osteomyelitis, right ankle and foot; E11.69 Type 2 diabetes mellitus with other specified complication; F32.A Depression, unspecified; E06.3 Autoimmune thyroiditis; E87.5 Hyperkalemia; Z20.822 Contact with and (suspected) exposure to COVID-19; Z79.4 Long term (current) use of insulin; Z79.84 Long term (current) use of oral hypoglycemic drugs; Z79.890 Hormone replacement therapy; Z79.899 Other long term (current) drug therapy
CPT/HCPCS: 36415; 36573; 71045; 73620; 73718; 74176; 80048; 80053; 80202; 81001; 82550; 82570; 82803; 82947; 83605; 83690; 83735; 84156; 84443; 85025; 85610; 86140; 86160; 87040; 87493; 87502; 87635; 93005; 99285; C1751; C1758; J0878; J1644; J2185; J2543; J3371

== ENCOUNTER → 2023-07-18 16:24 | Outpatient (BNV) | payer MEDICARE, MEDICAID, SELFPAY | PROVIDERS: Admitting Provider Internal Medicine; Emergency Provider Emergency Medicine; PCP Internal Medicine; Visit Provider Internal Medicine Cardiovascular Disease | DX: I45.10 Unspecified right bundle-branch block (principal) | CPT/HCPCS: 93010 ==

== ENCOUNTER → 2023-07-19 00:34 | Outpatient (BNV) | payer MEDICARE, MEDICAID, SELFPAY | PROVIDERS: Admitting Provider Internal Medicine; Emergency Provider Emergency Medicine; PCP Internal Medicine; Visit Provider Internal Medicine | DX: N17.9 Acute kidney failure, unspecified (principal); M86.171 Other acute osteomyelitis, right ankle and foot | CPT/HCPCS: 99223; 99232; 99233; 99239; 99499 ==

== ENCOUNTER → 2023-07-19 00:34 | Outpatient (BNV) | payer MEDICARE, MEDICAID, SELFPAY | PROVIDERS: Admitting Provider Internal Medicine; Emergency Provider Emergency Medicine; PCP Internal Medicine; Visit Provider Internal Medicine Nephrology | DX: N17.0 Acute kidney failure with tubular necrosis (principal); R80.9 Proteinuria, unspecified | CPT/HCPCS: 99223; 99232; 99499 ==

== ENCOUNTER → 2023-07-19 00:34 | Outpatient (BNV) | payer MEDICARE, MEDICAID, SELFPAY | PROVIDERS: Admitting Provider Internal Medicine; Emergency Provider Emergency Medicine; PCP Internal Medicine; Visit Provider Internal Medicine | DX: N17.9 Acute kidney failure, unspecified (principal); M86.171 Other acute osteomyelitis, right ankle and foot | CPT/HCPCS: 99222 ==

== ENCOUNTER 2023-07-30 13:05 | Outpatient (AMB) | payer MEDICARE, MEDICAID, SELFPAY ==
--- NOTE | 2023-07-30 13:07 | A.OFFVIS_ITS ---
Intake Vital Signs 07/30/23 13:21 Height 5 ft 9 in Weight 248 lb BMI 36.6 BP 120/80 Blood Pressure Location Lt brachial Position Sitting Intake Visit Reasons: Rt foot f/u Intake Note: Patient is seen in office for follow up visit, post nonhealing wound right foot, status post transmetatarsal amputation. Pt c/o: denies any concerns at [place] care, changing dressing as needed ER DC: 07/14/23 Staff Engineer Required: Yes Staff Engineer Language: Group Home Supervisor Name: Amber WATERS Information Interpreted: non-clinical & clinical Unified Communications Engineer: Unified Communications Engineer Present Accompanied by: Self / Same As Patient Allergies atorvastatin [ATORVASTATIN] Allergy (Unknown, Verified 07/30/23 13:19) skin eruption HPI HPI Comments History of Present Illness Details Patient returns following an attempted split-thickness skin graft to the right foot open wound. Unfortunately the skin graft failed to take and is no longer present. Dressing changes with silver alginate were initiated in the hospital. He denies any new problems with the foot or the graft site. REPLACED BY [facility] Medical History Nausea and vomiting Bacteremia Bilateral hand pain Right knee pain Hypovitaminosis D Right foot pain Left foot pain Infection of penis Hyponatremia Hyperkalemia Diabetic ketoacidosis Acute kidney injury Autoimmune thyroiditis Obesity due to excess calories Type 2 diabetes mellitus with hyperglycemia, with long-term current use of insulin CHF (congestive heart failure) Cognitive developmental delay Proteinuria Type 2 diabetes mellitus with other diabetic kidney complication Essential hypertension Hyperlipidemia LDL goal <100 Edema Hyperlipidemia Cataracts, both eyes HTN (hypertension) Hypothyroid Diabetes Surgical History S/P split thickness skin graft Status post transmetatarsal amputation of right foot Hx laparoscopic cholecystectomy (10/16/22) 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) Hx of removal of cyst Hx of cataract surgery Family History Father HTN (hypertension) Mother Diabetes mellitus Maternal Grandmother Diabetes mellitus Social History Household Members: Other Household Members Other:: correction Housing: House Housing Other:: SNF Do you presently have visiting nurse or other home services: No Unable to assess alcohol history related to: Unknown Alcohol intake: never Patient Tobacco Use Status: Never used Tobacco e-Cigarette/Vaping Use: Never Used Second Hand Smoke Exposure: No Substance Use Type: Caffiene Advance Directives Date on File: 09/10/22 service: No Current occupational status: disabled Cognitive needs: Yes Hearing needs: No Vision needs: No Physical Exam Vital Signs: Last Vital Signs BP 120/80 07/30/23 13:21 BMI result Body Mass Index 36.6 Const General: comfortable Nutritional Appearance: well nourished Limitations: wheelchair Resp Effort & Inspection: normal respiratory effort Extrem Other: Right foot open wound is clean and intact with granulation tissue at the base. Small amount of callus noted at the margin which was excised. No exposed bone is appreciated. Wounds were redressed with silver alginate and dry sterile dressings. Assessment & Plan Assessment & Plan (1) Acute osteomyelitis of right foot: Code(s): M86.171 - Other acute osteomyelitis, right ankle and foot Plan Patient returns following a recent split-thickness skin graft to the right foot which subsequently failed. He continues with local wound care using silver alginate. He [facility] and return in 1 month for follow-up examination. Coding Level of Care Code Global (76657) Diagnoses Acute osteomyelitis of right foot M86.171
[2023-07-30 13:21] VITALS: BP 120/80; BMI 36.6
== END 2023-07-30 13:48 | disposition home or self-care (01) ==
PROVIDERS: PCP Internal Medicine; Visit Provider Surgery
DX: M86.171 Other acute osteomyelitis, right ankle and foot (principal)
CPT/HCPCS: 99024

== ENCOUNTER → 2023-07-30 13:05 | Outpatient (BNVA) | payer MEDICARE, MEDICAID, SELFPAY | PROVIDERS: PCP Internal Medicine; Visit Provider Surgery | DX: M86.171 Other acute osteomyelitis, right ankle and foot (principal) | CPT/HCPCS: 99212 ==

== ENCOUNTER 2023-08-27 12:51 | Outpatient (AMB) | payer MEDICARE, MEDICAID, SELFPAY ==
--- NOTE | 2023-08-27 13:16 | A.OFFVIS_ITS ---
Intake Vital Signs 08/27/23 13:18 Height 5 ft 9 in Weight 246 lb 14.684 oz BMI 36.5 BP 130/82 Blood Pressure Location Lt brachial Position Sitting Intake Visit Reasons: one month, post transmetatarsal amputation rt foot Intake Note: Patient is seen in office for one month follow up visit, post transmetatarsal amputation of the right foot. Pt c/o: denies any concerns at the time of visit, some minimal discharge in the area, not seen the wound center Capsule Inspector Required: Yes Capsule Inspector Language: Early Childhood Education Specialist Name: Amber WATERS Information Interpreted: non-clinical & clinical Accompanied by: aleida Allergies atorvastatin [ATORVASTATIN] Allergy (Unknown, Verified 08/27/23 13:17) skin eruption Medication List - Last Reconciled 08/27/23 by Bao Dempsey MD acetaminophen 650 mg PO Q4H PRN amlodipine 10 mg PO DAILY ammonium lactate 12% 1 appl topical DAILY bisacodyl 10 mg ID DAILY PRN blood sugar diagnostic (FreeStyle Precision Gama Strips) As directed once daily cholecalciferol (vitamin D3) 50 mcg PO DAILY daptomycin (Cubicin RF) 500 mg IV Q24H 5 weeks dressing, collagen-silver 2 X 2.2 Apply to right foot wound with 4x4 and Kerlex QOD dulaglutide (Trulicity) 3 mg subcut TU escitalopram oxalate 10 mg PO DAILY ezetimibe 10 mg PO DAILY famotidine 20 mg PO BID fenofibrate 54 mg PO DAILY flash glucose sensor (FreeStyle Leonel 2 Sensor kit) As directed every 2 weeks gabapentin 100 mg PO TID [high shower chair As directed] insulin degludec (Tresiba FlexTouch U-200 insulin) 20 units subcut QAM insulin lispro See Protocol sliding scale doses subcut QIDACHS levothyroxine 150 mcg PO DAILY lisinopril 10 mg PO DAILY loperamide 2 mg PO Q4H PRN magnesium hydroxide (Milk of Magnesia) 30 mL PO DAILY PRN metformin 1,000 mg PO BID ondansetron HCl 4 mg PO Q8H PRN [raised toilet seat As directed] [right knee brace As directed] Saccharomyces boulardii (Probiotic (S.boulardii)) 250 mg PO BID simvastatin 40 mg PO BEDTIME sodium phosphates 19-7 gram/118 mL (Fleet Enema) 118 mL ID DAILY PRN [wrist splint bilateral As directed] HPI HPI Comments History of Present Illness Details Patient returns following an attempted split-thickness skin graft to the right foot open wound. Unfortunately the skin graft failed to take and is no longer present. He returns today for wound check. He continues to report no pain associated with the wound. He is being seen by the [facility] as well. Currently has an ABD pad, Kerlix and Nixon bandage on the right foot. [facility] Medical History Acute osteomyelitis of right foot Nausea and vomiting Bacteremia Bilateral hand pain Right knee pain Hypovitaminosis D Right foot pain Left foot pain Infection of penis Hyponatremia Hyperkalemia Diabetic ketoacidosis Acute kidney injury Autoimmune thyroiditis Obesity due to excess calories Type 2 diabetes mellitus with hyperglycemia, with long-term current use of insulin CHF (congestive heart failure) Cognitive developmental delay Proteinuria Type 2 diabetes mellitus with other diabetic kidney complication Essential hypertension Hyperlipidemia LDL goal <100 Edema Hyperlipidemia Cataracts, both eyes HTN (hypertension) Hypothyroid Diabetes Surgical History S/P split thickness skin graft (07/10/21) Status post transmetatarsal amputation of right foot Hx laparoscopic cholecystectomy (10/16/22) 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) Hx of removal of cyst Hx of cataract surgery Family History Father HTN (hypertension) Mother Diabetes mellitus Maternal Grandmother Diabetes mellitus Social History Household Members: Other Household Members Other:: [facility] Housing: House Housing Other:: SNF Do you presently have visiting nurse or other home services: No Unable to assess alcohol history related to: Unknown Alcohol intake: never Patient Tobacco Use Status: Never used Tobacco e-Cigarette/Vaping Use: Never Used Second Hand Smoke Exposure: No Substance Use Type: Caffiene Advance Directives Date on File: 09/10/22 service: No Current occupational status: disabled Cognitive needs: Yes Hearing needs: No Vision needs: No Review of Systems Const All systems reviewed & are unremarkable except as noted in HPI and below Physical Exam Vital Signs: Last Vital Signs BP 130/82 08/27/23 13:18 BMI result Body Mass Index 36.5 Const General: comfortable Nutritional Appearance: well nourished Limitations: wheelchair Resp Effort & Inspection: normal respiratory effort Extrem Other: Chronic granulation tissue noted at the wound base. An attempt was made to debride however patient developed some brisk bleeding. Pressure held to maintain hemostasis. Clean sterile dressings applied including 4 x 4 gauze, ABD, 4 in Kerlix, and 4 in Nixon bandage. Patient tolerated dressing change well. No open exposed bone is identified. Assessment & Plan Assessment & Plan (1) Diabetic foot ulcer: Code(s): E11.621 - Type 2 diabetes mellitus with foot ulcer; L97.509 - Non-pressure chronic ulcer of other part of unspecified foot with unspecified severity Qualifiers: Diabetic foot ulcer location: toe Diabetes mellitus type: type 2 Laterality: right Non-pressure ulcer stage: with bone involvement without evidence of necrosis Qualified Code(s): E11.621 - Type 2 diabetes mellitus with foot ulcer; L97.516 - Non-pressure chronic ulcer of other part of right foot with bone involvement without evidence of necrosis Plan 52-year-old male patient with history of diabetes and osteomyelitis involving the right foot requiring a he is metatarsal amputation. His wounds are closing in slowly with local wound care. An attempt at skin grafting was unsuccessful. He should continue with local wound care and follow-up at the [facility]. Follow-up in 1 month. Coding Level of Care Code Est Pt Level 3 (46408) Diagnoses Diabetic ulcer of toe of right foot associated with type 2 diabetes mellitus, with bone involvement without evidence of necrosis E11.621; L97.516 Diabetic foot ulcer location: toe Diabetes mellitus type: type 2 Laterality: right Non-pressure ulcer stage: with bone involvement without evidence of necrosis
[2023-08-27 13:18] VITALS: BP 130/82; BMI 36.5
== END 2023-08-27 13:22 | disposition home or self-care (01) ==
PROVIDERS: PCP Internal Medicine; Visit Provider Surgery
DX: E11.621 Type 2 diabetes mellitus with foot ulcer (principal); L97.516 Non-pressure chronic ulcer of other part of right foot with bone involvement without evidence of necrosis
CPT/HCPCS: 99024

== ENCOUNTER → 2023-08-27 12:51 | Outpatient (BNVA) | payer MEDICARE, MEDICAID, SELFPAY | PROVIDERS: PCP Internal Medicine; Visit Provider Surgery | DX: E11.621 Type 2 diabetes mellitus with foot ulcer (principal); L97.516 Non-pressure chronic ulcer of other part of right foot with bone involvement without evidence of necrosis | CPT/HCPCS: 99212 ==

== ENCOUNTER 2023-11-07 14:05 | Outpatient (AMB) | payer MEDICARE, MEDICAID, SELFPAY ==
--- NOTE | 2023-11-07 14:07 | MHC.OFFVIS ---
Vital Signs 11/07/23 14:19 Height 5 ft 9 in Weight 246 lb BMI 36.3 BP 128/82 Blood Pressure Location Lt brachial Position Sitting Intake Visit Reasons: post transmetatarsal amputation rt foot Intake Note: Patient is seen in office for one month follow up visit, post transmetatarsal amputation of the right foot. Pt c/o: denies any concerns healing as expected Steward/Stewardess Second Class Required: Yes Steward/Stewardess Second Class Language: Link Machine Operator Name: Amber WATERS Information Interpreted: non-clinical & clinical Accompanied by: Self / Same As Patient Allergies atorvastatin [ATORVASTATIN] Allergy (Unknown, Verified 08/27/23 13:17) skin eruption Medication List - Last Reconciled 11/07/23 by Bao Dempsey MD acetaminophen 650 mg PO Q4H PRN amlodipine 10 mg PO DAILY ammonium lactate 12% 1 appl topical DAILY bisacodyl 10 mg SD DAILY PRN blood sugar diagnostic (FreeStyle Precision Gama Strips) As directed once daily cholecalciferol (vitamin D3) 50 mcg PO DAILY daptomycin (Cubicin RF) 500 mg IV Q24H 5 weeks dressing, collagen-silver 2 X 2.2 Apply to right foot wound with 4x4 and Kerlex QOD dulaglutide (Trulicity) 3 mg subcut TU escitalopram oxalate 10 mg PO DAILY ezetimibe 10 mg PO DAILY famotidine 20 mg PO BID fenofibrate 54 mg PO DAILY flash glucose sensor (FreeStyle Leonel 2 Sensor kit) As directed every 2 weeks gabapentin 100 mg PO TID [high shower chair As directed] insulin degludec (Tresiba FlexTouch U-200 insulin) 20 units subcut QAM insulin lispro See Protocol sliding scale doses subcut QIDACHS levothyroxine 150 mcg PO DAILY lisinopril 10 mg PO DAILY loperamide 2 mg PO Q4H PRN magnesium hydroxide (Milk of Magnesia) 30 mL PO DAILY PRN metformin 1,000 mg PO BID ondansetron HCl 4 mg PO Q8H PRN [raised toilet seat As directed] [right knee brace As directed] Saccharomyces boulardii (Probiotic (S.boulardii)) 250 mg PO BID simvastatin 40 mg PO BEDTIME sodium phosphates 19-7 gram/118 mL (Fleet Enema) 118 mL SD DAILY PRN [wrist splint bilateral As directed] HPI Comments Details: Mehul returns for wound check of his right foot. He denies any ongoing foot symptoms. He continues to have wound care therapy. [facility] Medical History Acute osteomyelitis of right foot Nausea and vomiting Bacteremia Bilateral hand pain Right knee pain Hypovitaminosis D Right foot pain Left foot pain Infection of penis Hyponatremia Hyperkalemia Diabetic ketoacidosis Acute kidney injury Autoimmune thyroiditis Obesity due to excess calories Type 2 diabetes mellitus with hyperglycemia, with long-term current use of insulin CHF (congestive heart failure) Cognitive developmental delay Proteinuria Type 2 diabetes mellitus with other diabetic kidney complication Essential hypertension Hyperlipidemia LDL goal <100 Edema Hyperlipidemia Cataracts, both eyes HTN (hypertension) Hypothyroid Diabetes Surgical History S/P split thickness skin graft (07/10/21) Status post transmetatarsal amputation of right foot Hx laparoscopic cholecystectomy (10/16/22) 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) Hx of removal of cyst Hx of cataract surgery Family History Father HTN (hypertension) Mother Diabetes mellitus Maternal Grandmother Diabetes mellitus Social History Household Members: Other Household Members Other:: [facility] Housing: House Housing Other:: SNF Do you presently have visiting nurse or other home services: No Unable to assess alcohol history related to: Unknown Alcohol intake: never Patient Tobacco Use Status: Never used Tobacco e-Cigarette/Vaping Use: Never Used Second Hand Smoke Exposure: No Substance Use Type: Caffiene Advance Directives Date on File: 09/10/22 service: No Current occupational status: disabled Cognitive needs: Yes Hearing needs: No Vision needs: No Review of Systems Const All systems reviewed & are unremarkable except as noted in HPI and below Physical Exam Vital Signs: Last Vital Signs BP 128/82 11/07/23 14:19 BMI result Body Mass Index 36.3 Const General: comfortable Nutritional Appearance: well nourished Limitations: wheelchair Resp Effort & Inspection: normal respiratory effort Extrem Other: Chronic granulation tissue noted at the wound base. There is surrounding callus which was removed using a forceps. A proximally a 2 x 2 cm region was debrided of the surrounding callus of superficial epidermis. Wounds were covered with dry sterile dressings, Kerlix and Nixon bandage. Assessment & Plan Assessment & Plan (1) Diabetic foot ulcer: Code(s): E11.621 - Type 2 diabetes mellitus with foot ulcer; L97.509 - Non-pressure chronic ulcer of other part of unspecified foot with unspecified severity Category: Medical Qualifiers: Diabetes mellitus type: type 2 Diabetic foot ulcer location: toe Laterality: right Non-pressure ulcer stage: with bone involvement without evidence of necrosis Qualified Code(s): E11.621 - Type 2 diabetes mellitus with foot ulcer; L97.516 - Non-pressure chronic ulcer of other part of right foot with bone involvement without evidence of necrosis Plan Patient returns for follow-up examination after an attempted skin graft to the right foot which did not take satisfactorily. He continues with local wound care and follows up with the [facility]. He should continue with wound care center follow-up and return as needed. Coding Level of Care Code Est Pt Level 3 (45794) Diagnoses Diabetic ulcer of toe of right foot associated with type 2 diabetes mellitus, with bone involvement without evidence of necrosis E11.621; L97.516 Diabetes mellitus type: type 2 Diabetic foot ulcer location: toe Laterality: right Non-pressure ulcer stage: with bone involvement without evidence of necrosis
[2023-11-07 14:19] VITALS: BP 128/82; BMI 36.3
== END 2023-11-07 15:11 | disposition home or self-care (01) ==
PROVIDERS: PCP Internal Medicine; Visit Provider Surgery
DX: E11.621 Type 2 diabetes mellitus with foot ulcer (principal); L97.516 Non-pressure chronic ulcer of other part of right foot with bone involvement without evidence of necrosis
CPT/HCPCS: 97597; 99213

== ENCOUNTER → 2023-11-07 14:05 | Outpatient (BNVA) | payer MEDICARE, MEDICAID, SELFPAY | PROVIDERS: PCP Internal Medicine; Visit Provider Surgery | DX: Z47.81 Encounter for orthopedic aftercare following surgical amputation (principal); E11.621 Type 2 diabetes mellitus with foot ulcer; L97.516 Non-pressure chronic ulcer of other part of right foot with bone involvement without evidence of necrosis; Z89.421 Acquired absence of other right toe(s) | CPT/HCPCS: 97597; 99212 ==

== ENCOUNTER 2024-06-26 15:47 | Inpatient (IN) | payer MEDICARE, MEDICAID, SELFPAY ==
--- NOTE | ~2024-06-26 | XR_ITS ---
CLINICAL HISTORY: possible osteo 5th toe, 4th metacarpal 3 view left foot Comparison: None Findings: There are questionable fractures of the 4th and little toe proximal phalanges, partially obscured by overlying material. No significant arthritic change or erosions. No ankle effusion. No radiopaque foreign body. IMPRESSION: 1. Questionable 4th and little toe proximal phalangeal fractures. Consider further evaluation with CT. This document has been electronically signed by: José Alberto MD on 06/26/2024 18:13:08
--- NOTE | ~2024-06-26 | IR_ITS ---
CLINICAL HISTORY: IV antibiotics. PROCEDURES: 1. Real-time ultrasound guided access into the right internal jugular vein after documentation of selective vessel patency, and permanent imaging storing in the patient records. 2. Placement of a 5 Fr, 24 cm tunneled, dual-lumen power injectable Teran CLINICIAN: David Yates PA-C MEDICATIONS: -Lidocaine 1% 10 ml, SQ. -Additional details, please see nursing flowsheet. Complications: None. Estimated blood loss: <5 ml Specimens: None. Contrast: None. Fluoroscopy time: 0.9 min PROCEDURE NOTE: The procedure, risks, benefits, and alternatives were carefully explained to the patient's healthcare senior sales representative and informed consent was obtained. The patient was placed supine on the fluoroscopy table. A timeout was performed. The right neck and chest was prepped and draped in usual sterile fashion. Local anesthesia was administered to the right neck access site with lidocaine. Under ultrasound guidance, the right internal jugular vein was accessed with a 5 fr micropuncture set. A permanent ultrasound picture was saved. A peel-away sheath was advanced over the wire. The catheter was measured and cut to length. Next, subcutaneous lidocaine was administered to the chest. Using blunt dissection, a subcutaneous tunnel was created that connects from the upper chest to the venotomy site. The catheter was pulled through the tunnel. The catheter was advanced through the sheath, which was subsequent peeled away. The catheter was tested, flushed, and sutured to the skin with its tip in the cavoatrial junction. The venotomy site was closed with surgical glue. A dry sterile dressing was applied to the chest and the venotomy site. A permanent chest fluoroscopic image was saved demonstrating the catheter tip in the cavoatrial junction. The patient was stable after the procedure was transferred back to the floor. IR/IR cvc insert central tunnel IMPRESSION: Placement of a tunneled dual-lumen Teran catheter PLAN: -The catheter may be used immediately. This procedure was performed by David Yates PA-C, and supervised by Dr. Mccoy Electronically signed by: Jorge Hooks MD 07/08/2024 05:26 PM [facility]
--- NOTE | ~2024-06-26 | MR_ITS ---
CLINICAL HISTORY: swelling, redness, ?osteo Pt unable to straighten foot in coil. Foot was oblique i n coil due to pt pain with movement of leg. Pt. motion throughout exam. MR left foot without gadolinium Comparison: CR - XR FOOT LT MIN 3V - 06/26/24 17:34 EST Findings: Examination is degraded by motion artifact and decreased signal to noise ratio. Confluent T1 hypointensity is present within the 4th toe proximal phalanx. The distal 5th toe proximal phalanx is ill-defined on the T1 sequences and appears hyperintense on the T2 weighted sequences. Feathery signal abnormality is present within the 4th and 5th metatarsal heads. No evidence of signal abnormality involving the midfoot, 1st through 3rd metatarsals, or 1st through 3rd toes. First metatarsophalangeal joint osteoarthritis. Imaged muscles and tendons are grossly intact. The Lisfranc ligament is intact. Extensive subcutaneous and deep soft tissue edema signal without focal fluid collection. Plantar skin ulcer adjacent to the 4th metatarsophalangeal joint. IMPRESSION: 1. Plantar skin ulcer adjacent to the 4th metatarsophalangeal joint with evidence of 4th and 5th toe proximal phalanx osteomyelitis. Less severe signal abnormality within the 4th and 5th metatarsal heads which can be seen with reactive osteitis or early osteomyelitis. 2. Extensive subcutaneous and deep soft tissue edema signal which can be seen with cellulitis. No focal abscesses are identified. This document has been electronically signed by: Jose Juan Prince DO on 06/27/2024 13:33:16
--- NOTE | ~2024-06-26 | CT_ITS ---
EXAMINATION: CT CHEST WITHOUT CONTRAST CLINICAL INFORMATION: Hypoxia. COMPARISON: No prior CT. Correlated to x-ray dated June 28, 2024. TECHNIQUE: Multidetector volumetric CT imaging of the chest was done. Axial MIP volume rendering provided. Sagittal and coronal reformatted images were obtained. This CT examination was performed using dose optimization techniques as appropriate, variously including the following: *Automated exposure control *Adjustment of mA and/or kV according to patient size (this includes techniques or standardized protocols for targeted exams where dose is matched to indication/reason for exam; i.e. extremities or head) *Use of iterative reconstruction technique Dose: 340 mGy centimeters FINDINGS: Limited by patient's motion artifact. Bilateral, multifocal, patchy and confluent, central/perihilar pulmonary groundglass. Bilateral pleural effusions, moderate to large volume. No pneumothorax. Prominent, 12 mm lymph nodes, mediastinum. No gross pericardial effusion. No pneumomediastinum. No hemothorax. No hemopericardium. Prominent, nonspecific axillary lymph nodes. No aneurysm, thoracic aorta. Calcified plaques in the coronary arteries. Prominent breast tissue, bilaterally. Status post cholecystectomy, likely laparoscopic. No acute fracture or listhesis in the axial skeleton. No lytic or blastic lesions. CT/CT chest wo IV con IMPRESSION: Consider pulmonary edema with bilateral pleural effusions, moderate to large volume. Nephrogenic versus cardiogenic. Fleischner guidelines were followed. Electronically signed by: Monroe Khan MD 06/29/2024 08:38 AM [facility]
--- NOTE | ~2024-06-26 | XR_ITS ---
CLINICAL HISTORY: hypoxia 1 view chest x-ray. Comparison: CR/RI/SR - XR CHEST 1V - 07/18/23 21:00 EST Findings: Low lung volumes. Perihilar interstitial and airspace disease. Probable small layering pleural effusions. Mild cardiomegaly.Passive venous congestion No midline shift or tracheal deviation. No acute fracture. Impression: 1. Perihilar interstitial and airspace disease and probable small layering pleural effusions either cardiogenic or pneumonic. Mild cardiomegaly. This document has been electronically signed by: Guzman Sol MD on 06/28/2024 10:29:56
[2024-06-26 15:56] VITALS: BP 142/108; BP 196/90; PULSE 107; PULSE 111; RESP 26; TEMP 38.3; O2SAT 97; BMI 33.4
[2024-06-26 16:18] LABS: MANUAL DIFF FLAG NO
[2024-06-26 16:19] LABS: Basophils Absolute Auto 0.1 X10*3/uL (0.0-0.2); Basophils Percent Auto 0.5 % (0-2); Eosinophils Absolute Auto 0.3 X10*3/uL (0.0-0.4); Eosinophils Percent Auto 1.9 % (0-4); Hematocrit 26.4 % (42.0-52.0); Hemoglobin 8.6 g/dl (14.0-18.0); Imm Gran Abs Auto 0.11 X10*3/uL (0.00-0.03); Imm Gran Pct Auto 0.6 % (0.0-0.4); Lymphocytes Absolute Auto 0.7 X10*3/uL (1.2-4.9); Lymphocytes Percent Auto 4.3 % (20-40); Mean Corpuscular HGB Conc 32.6 g/dl (31.0-36.0); Mean Corpuscular Volume 82.8 fL (80.0-98.0); Mean Platelet Volume 10.3 fL (9.4-12.4); Monocytes Absolute Auto 0.7 X10*3/uL (0.1-1.2); Monocytes Percent Auto 3.8 % (2-11); Neutrophils Absolute Auto 15.2 x10*3/uL (2.0-8.3); Neutrophils Percent Auto 88.9 % (45-73); Platelet Count 299 X10*3/uL (160-400); Red Blood Count 3.19 X10*6/uL (4.60-5.80); Red Cell Distribution Width 13.2 % (11.0-16.0); White Blood Count 17.1 X10*3/uL (4.8-10.8)
[2024-06-26] MEDS: Acetaminophen 325 MG TABLET 650 MG PO (16:21)
[2024-06-26 16:39] LABS: Alanine Aminotransferase 64 U/L (0-40); Albumin Level 3.4 g/dL (3.5-5.0); Anion Gap 17 (12-20); Aspartate Amino Transferase 73 U/L (5-37); Bilirubin Total 0.6 mg/dL (0.0-1.0); Blood Urea Nitrogen 40 mg/dL (9-16); Calcium 8.7 mg/dL (8.4-10.2); Carbon Dioxide 16 mmol/L (22-29); Chloride 103 mmol/L (96-108); Creatinine Clr Calc Pharmacy 44.3; Estimated Glomerular Filt Rate 32; Glucose Random 339 mg/dL (60-115); Potassium 4.8 mmol/L (3.3-5.1); Sodium 131 mmol/L (135-145); Total Protein 8.1 g/dL (6.5-8.0)
[2024-06-26 16:45] LABS: Troponin-I High Sensitivity < 2.7 ng/L (<3.5-35.0)
[2024-06-26 16:55] LABS: Glucose, Whole Blood 297 mg/dL (60-115)
--- NOTE | 2024-06-26 16:58 | ED_ITS ---
HPI - Skin/Abscess/Foreign Bdy General Chief complaint: Skin/Abscess/Foreign Body Stated complaint: possible sepsis alrt, lft foot infected, diabetic Time Seen by Provider: 06/26/24 16:05 Source: patient and EMS Mode of arrival: EMS Limitations: no limitations History of Present Illness ED Provider: Dr. Mariam Self HPI narrative: [facility], complaining worsening appearance of the left foot. Patient states that he has very bad neuropathy and he has hardly any sensation in his feet. Patient states that over last 2 days, he has noticed that his foot on the dorsum has become more edematous/big callus present now and also reports that over 2 days his 5th toe became purple. Related Data Home Medications ?Medication ?Instructions ?Recorded ?Confirmed metformin 500 mg tablet 1,000 mg PO BID 06/20/22 08/27/23 amlodipine 10 mg tablet 10 mg PO DAILY 10/12/22 08/27/23 cholecalciferol (vitamin D3) 50 50 mcg PO DAILY 10/12/22 08/27/23 mcg (2,000 unit) capsule escitalopram oxalate 10 mg tablet 10 mg PO DAILY 10/12/22 08/27/23 ezetimibe 10 mg tablet 10 mg PO DAILY 10/12/22 08/27/23 fenofibrate 54 mg tablet 54 mg PO DAILY 10/12/22 08/27/23 gabapentin 100 mg capsule 100 mg PO TID 10/12/22 08/27/23 insulin degludec 200 unit/mL (3 20 unit subcut QAM 10/12/22 08/27/23 mL) subcutaneous pen (Tresiba FlexTouch U-200 insulin) levothyroxine 150 mcg tablet 150 mcg PO DAILY 10/12/22 08/27/23 lisinopril 10 mg tablet 10 mg PO DAILY 10/12/22 08/27/23 ondansetron HCl 4 mg tablet 4 mg PO Q8H PRN Nausea 10/12/22 08/27/23 simvastatin 40 mg tablet 40 mg PO BEDTIME 10/12/22 08/27/23 Saccharomyces boulardii 250 mg 250 mg PO BID 10/13/22 08/27/23 capsule (Probiotic (S.boulardii)) acetaminophen 325 mg tablet 650 mg PO Q4H PRN Fever Or Pain 10/13/22 11/07/23 bisacodyl 10 mg rectal suppository 10 mg NJ DAILY PRN Constipation 10/13/22 08/27/23 magnesium hydroxide 400 mg/5 mL 30 ml PO DAILY PRN Constipation 10/13/22 08/27/23 oral suspension (Milk of Magnesia) sodium phosphates 19 gram-7 118 ml NJ DAILY PRN Constipation 10/13/22 08/27/23 gram/118 mL enema (Fleet Enema) ammonium lactate 12 % topical cream 1 appl topical DAILY 07/10/23 08/27/23 dulaglutide 3 mg/0.5 mL 3 mg subcut TU 07/10/23 08/27/23 subcutaneous pen injector (Trulicity) insulin lispro 100 unit/mL See Protocol subcut QIDACHS 07/10/23 08/27/23 subcutaneous solution famotidine 20 mg tablet 20 mg PO BID 07/18/23 08/27/23 loperamide 2 mg tablet 2 mg PO Q4H PRN Loose Stool 07/18/23 08/27/23 Previous Rx's ?Medication ?Instructions ?Recorded blood sugar diagnostic (FreeStyle #50 ea 05/30/21 Precision Gama Strips) flash glucose sensor (FreeStyle #2 ea 06/01/21 Leonel 2 Sensor kit) right knee brace #1 ea 10/09/21 wrist splint bilateral #2 ea 10/09/21 high shower chair #1 ea 10/31/21 raised toilet seat #1 ea 11/01/21 dressing, collagen-silver 2 X 2.2 #50 ea 07/15/23 daptomycin 500 mg intravenous 500 mg IV Q24H 5 weeks 07/24/23 solution (Cubicin RF) Allergies Allergy/AdvReac Type Severity Reaction Status Date / Time atorvastatin [ATORVASTATIN] Allergy Unknown skin Verified 06/26/24 15:59 eruption Review of Systems 2 Review of Systems: Constitutional : No Weight loss, No Fever, No Chills, No Night Sweats, No Fatigue, No Malaise ENT/Mouth : No Hearing loss, No Ear Pain, No Nasal Congestion, No Sinus Pain, No Hoarseness, No sore throat, No Rhinorrhea, No Swallowing Difficulty Eyes: No Eye Pain, No Swelling, No Redness, No Foreign Body, No Discharge, No Vision Changes Cardiovascular : No Chest Pain, No SOB, No Dyspnea on Exertion, No Orthopnea, No Edema, No Palpitations Respiratory : No Cough, No Sputum, No Wheezing, No Smoke Exposure, No Dyspnea Gastrointestinal : No Nausea, No Vomiting, No Diarrhea, No Constipation, No abdominal Pain, No Hematochezia, No Melena Genitourinary : no irregular bleeding, No Dysuria, No Urinary Frequency, No Hematuria, No Urinary Incontinence, No Urgency, No Flank Pain, No Urinary Flow Changes, No Hesitancy Musculoskeletal : No joint pain, No Myalgias, No Joint Swelling Skin : Complaining of worsening appearance of the skin of the left foot Neuro : No Weakness, No Numbness, No Paresthesias, No Loss of Consciousness, No Dizziness, No Headache Psych : No Anxiety/Panic, No Depression, No SI/HI/AH/VH, No Social Issues, Heme/Lymph: No Bruising, No Bleeding,No Lymphadenopathy Endocrine : No Polyuria, No Polydipsia, No Temperature Intolerance PMFSH Past Medical History Medical History Acute osteomyelitis of right foot Nausea and vomiting Bacteremia Bilateral hand pain Right knee pain Hypovitaminosis D Right foot pain Left foot pain Infection of penis Hyponatremia Hyperkalemia Diabetic ketoacidosis Acute kidney injury Autoimmune thyroiditis Obesity due to excess calories Type 2 diabetes mellitus with hyperglycemia, with long-term current use of insulin CHF (congestive heart failure) Cognitive developmental delay Proteinuria Type 2 diabetes mellitus with other diabetic kidney complication Essential hypertension Hyperlipidemia LDL goal <100 Edema Hyperlipidemia Cataracts, both eyes HTN (hypertension) Hypothyroid Diabetes Surgical History S/P split thickness skin graft (07/10/21) Status post transmetatarsal amputation of right foot Hx laparoscopic cholecystectomy (10/16/22) 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) Hx of removal of cyst Hx of cataract surgery Family History Family History Father HTN (hypertension) Mother Diabetes mellitus Maternal Grandmother Diabetes mellitus Social History Social History Household Members: Other Household Members Other:: care home Housing: House Housing Other:: SNF Do you presently have visiting nurse or other home services: No Unable to assess alcohol history related to: Unknown Alcohol intake: never Patient Tobacco Use Status: Never used Tobacco e-Cigarette/Vaping Use: Never Used Second Hand Smoke Exposure: No Substance Use Type: Caffiene Advance Directives: Yes Advance Directives on File: Yes Advance Directives Date on File: 07/25/23 service: No Current occupational status: disabled Cognitive needs: Yes Hearing needs: No Vision needs: No Physical Exam 2 Vital Signs: Vital Signs: Last Vital Signs Temp 102.3 F H 06/26/24 17:54 Pulse 102 H 06/26/24 17:54 Resp 16 06/26/24 17:54 BP 145/75 H 06/26/24 17:54 Pulse Ox 95 06/26/24 17:54 O2 Del Method Room Air 06/26/24 17:54 BMI result Body Mass Index 33.4 Const: Other: Appearance: Alert. Oriented X3. No acute distress. Eyes: Pupils equal, round and reactive to light. ENT: Pharynx normal. Neck: Normal inspection. Neck supple. No lymph nodes noted. No crepitus CVS: Normal heart rate and rhythm. Pulses normal. Normal S1 and S2 Respiratory: No respiratory distress. Breath sounds normal. No Wheezing. No rales Abdomen: Soft and nontender. No rigidity. No distention. Skin: Please see extremities below Extremities: Patient has +3 pitting edema bilaterally. No pain to palpation. Patient has a BKA on the right, left foot has a thick wet callus on the dorsum of the foot, the 5th toe appears gangrenous, there is a ulcer in the plantar aspect of the left foot, see pictures below Neuro: Oriented X 3. No motor deficit. No sensory deficit. Moving all extremities. No slurred speech. CN 2 through 12 grossly intact Psych: calm, cooperative, normal affect Medications Administered Generic Name Dose Route Start Last Admin Trade Name Freq PRN Reason Stop Dose Admin Sodium Chloride 2,000 mls @ 999 mls/hr 06/26/24 16:51 06/26/24 16:59 Ns IVCONT 06/26/24 18:51 999 mls/hr .Q2H1M ONE Administration Vancomycin HCl 2,000 mg in 500 mls @ 250 mls/hr 06/26/24 16:51 06/26/24 17:58 Vancomycin/Ns IV 06/26/24 18:50 250 mls/hr ONCE ONE Administration Discontinued Medications Generic Name Dose Route Start Last Admin Trade Name Ida PRN Reason Stop Dose Admin Acetaminophen 650 mg 06/26/24 16:17 06/26/24 16:21 Acetaminophen 325 Mg Tablet PO 06/26/24 16:18 650 mg ONCE ONE Administration Piperacillin Sod/Tazobactam 50 mls @ 100 mls/hr 06/26/24 16:51 06/26/24 17:58 Sod 3.375 gm/ Sodium Chloride IV 06/26/24 17:20 Infused ONCE ONE Infusion Ibuprofen 600 mg 06/26/24 18:12 06/26/24 18:17 Ibuprofen 600 Mg Tablet PO 06/26/24 18:13 600 mg ONCE ONE Administration Medical Decision Making Medical Decision Making [facility] Narrative: My interpretation of labs: Patient's white blood cell count 17.1, lactic acid 2.4. Patient's creatinine 2.18 (baseline 1.4) Patient's blood pressure within normal limits, no episodes of hypotension Patient meets sirs criteria, sepsis not suspected Patient was started on IV fluids based on ideal weight of 60 kg (patient is obese), given IV Zosyn and vancomycin X-rays of the foot my interpretation: Cortical abnormality on the 5th toe, possible fracture versus osteomyelitis? Patient will need admission for debridement I discussed the patient with Dr. Barber from the Medicine team, patient being admitted Differential Diagnosis Differential Diagnoses: The differential diagnosis associated with the presentation includes (Diabetic foot ulcer, osteomyelitis, cellulitis, abscess) Lab Data [facility] Lab Attestation statement: I reviewed the patient's lab results. 06/26/24 16:12 06/26/24 16:12 Labs: Lab Results 06/26/24 06/26/24 06/26/24 Range/Units 16:01 16:12 16:26 WBC 17.1 H (4.8-10.8) X10*3/uL RBC 3.19 L (4.60-5.80) X10*6/uL Hgb 8.6 L (14.0-18.0) g/dl Hct 26.4 L (42.0-52.0) % MCV 82.8 (80.0-98.0) fL MCH 27.0 (27.0-33.0) pg MCHC 32.6 (31.0-36.0) g/dl RDW 13.2 (11.0-16.0) % Plt Count 299 D (160-400) X10*3/uL MPV 10.3 (9.4-12.4) fL Immature Gran % (Auto) 0.6 H (0.0-0.4) % Neut % (Auto) 88.9 H (45-73) % Lymph % (Auto) 4.3 L (20-40) % Rosebud % (Auto) 3.8 (2-11) % Eos % (Auto) 1.9 (0-4) % Baso % (Auto) 0.5 (0-2) % Lymph # (Auto) 0.7 L (1.2-4.9) X10*3/uL [place]bud # (Auto) 0.7 (0.1-1.2) X10*3/uL Eos # (Auto) 0.3 (0.0-0.4) X10*3/uL Baso # (Auto) 0.1 (0.0-0.2) X10*3/uL Abs Immat Gran (auto) 0.11 H (0.00-0.03) X10*3/uL Absolute Neuts (auto) 15.2 H (2.0-8.3) x10*3/uL Absolute Nucleated RBC 0.000 (0.0-0.012) X10*3/uL Nucleated RBC % (auto) 0.0 (0.0-0.2) /100WBC Sodium 131 L (135-145) mmol/L Potassium 4.8 (3.3-5.1) mmol/L Chloride 103 (96-108) mmol/L Carbon Dioxide 16 L (22-29) mmol/L Anion Gap 17 (12-20) BUN 40 H (9-16) mg/dL Creatinine 2.18 H (0.5-1.4) mg/dL Estim Creat Clear Calc 44.3 Estimated GFR 32 POC Glucose 297 H (60-115) mg/dL Random Glucose 339 H (60-115) mg/dL Lactic Acid 2.4 H* (0.5-2.0) mmol/L Calcium 8.7 (8.4-10.2) mg/dL Total Bilirubin 0.6 (0.0-1.0) mg/dL AST 73 H (5-37) U/L ALT 64 H (0-40) U/L Alkaline Phosphatase 145 H (39-117) U/L Troponin I High Sens < 2.7 (<3.5-35.0) ng/L Total Protein 8.1 H (6.5-8.0) g/dL Albumin 3.4 L (3.5-5.0) g/dL Influenza Type A (PCR) NEGATIVE (Negative) Influenza Type B (PCR) NEGATIVE (Negative) RSV RNA Qual (PCR) NEGATIVE (Negative) SARS-CoV-2 RNA (RT-PCR) NEGATIVE (Negative) Independent Interpretation I performed an independent interpretation of an: Plain X-Ray Radiology Impression Discussion of test interpretation with radiology: I have reviewed the radiologist's reading. Radiologist Impression: There are questionable fractures of the 4th and little toe proximal phalanges, partially obscured by overlying material. No significant arthritic change or erosions. No ankle effusion. No radiopaque foreign body. IMPRESSION: 1. Questionable 4th and little toe proximal phalangeal fractures. Consider further evaluation with CT. Independent Historian Clinical information obtained from an independent historian. History obtained from or confirmed by: EMS Critical Care Time Critical Care Time Critical Care Time: Yes Total Critical Care Time: 60 Attestation: I have personally provided critical care time. Time includes review of lab data, radiology results, discussion with consultants, and monitoring for potential decompensation. Intervention performed as documented. Discharge Plan Discharge Clinical Impression: Cellulitis, Diabetic foot ulcer, Acute kidney injury superimposed on CKD Patient Disposition: Admitted As Inpatient Prescriptions: No Action (DME) FreeStyle Precision Gama Strips Strip See Rx Instructions .ROUTE .MEDSUPPLY Qty: 50 11RF Rx Instructions: As directed once daily (DME) FreeStyle Leonel 2 Sensor Kit See Rx Instructions .ROUTE .MEDSUPPLY Qty: 2 11RF Rx Instructions: As directed every 2 weeks (DME) right knee brace See Rx Instructions .Route .MEDSUPPLY Qty: 1 0RF Rx Instructions: As directed (DME) wrist splint bilateral See Rx Instructions .Route .MEDSUPPLY Qty: 2 0RF Rx Instructions: As directed (DME) high shower chair See Rx Instructions .Route .MEDSUPPLY Qty: 1 0RF Rx Instructions: As directed (DME) raised toilet seat See Rx Instructions .Route .MEDSUPPLY Qty: 1 0RF Rx Instructions: As directed metformin 500 mg tablet 1,000 mg PO BID ondansetron HCl 4 mg tablet 4 mg PO Q8H PRN (Reason: Nausea) simvastatin 40 mg tablet 40 mg PO BEDTIME amlodipine 10 mg tablet 10 mg PO DAILY lisinopril 10 mg tablet 10 mg PO DAILY levothyroxine 150 mcg tablet 150 mcg PO DAILY gabapentin 100 mg capsule 100 mg PO TID escitalopram oxalate 10 mg tablet 10 mg PO DAILY ezetimibe 10 mg tablet 10 mg PO DAILY fenofibrate 54 mg tablet 54 mg PO DAILY insulin degludec [Tresiba FlexTouch U-200] 200 unit/mL (3 mL) insulin pen 20 unit subcut QAM cholecalciferol (vitamin D3) 50 mcg (2,000 unit) capsule 50 mcg PO DAILY acetaminophen 325 mg Tablet 650 mg PO Q4H PRN (Reason: Fever Or Pain) magnesium hydroxide [Milk of Magnesia] 400 mg/5 mL Suspension 30 ml PO DAILY PRN (Reason: Constipation) bisacodyl 10 mg Suppository 10 mg NJ DAILY PRN (Reason: Constipation) Fleet Enema 19-7 gram/118 mL Enema 118 ml NJ DAILY PRN (Reason: Constipation) Saccharomyces boulardii [Probiotic (S.boulardii)] 250 mg Capsule 250 mg PO BID Rx Instructions: UNTIL 11/02/22 loperamide 2 mg Tablet 2 mg PO Q4H PRN (Reason: Loose Stool) Rx Instructions: administer after each loose stool until symptoms controlled; do not exceed 8 mg per 24 hrs famotidine 20 mg Tablet 20 mg PO BID daptomycin [Cubicin RF] 500 mg recon soln 500 mg IV Q24H 35 Days Rx Instructions: administer over 30 mins ammonium lactate 12 % Cream 1 appl TOPICAL DAILY Rx Instructions: left foot insulin lispro 100 unit/mL Solution See Protocol SUBCUT QIDACHS Protocol: Insulin Correction Scale Less than or equal to 110 ---- Give (units): 0 111 to 150 Give (units): 0 151 to 200 Give (units): 2 201 to 250 Give (units): 4 251 to 300 Give (units): 6 301 to 350 Give (units): 8 Greater than 350 Give (units): 10 Call MD if Blood Glucose > : 350 Trulicity 3 mg/0.5 mL Pen Injector 3 mg SUBCUT TU (DME) dressing, collagen-silver 2 X 2.2 bandage See Rx Instructions .Route Qty: 50 0RF Rx Instructions: Apply to right foot wound with 4x4 and Kerlex QOD Print Language: [place]itanian
[2024-06-26] MEDS: 0.9 % Sodium Chloride 2,000 ML 999 ML IVCONT (16:59)
[2024-06-26] MEDS: Piperacillin Sodium/Tazobactam 3.375 GM in 0.9 % Sodium Chloride 50 ML IV (17:04)
--- OUTSIDE RECORDS SUMMARY | 2024-06-26 17:11 | XMS_ITS | Continuity of Care Document ---
Author Organization [facility], [facility] Address [address] [place] [address] Care Team Providers Care [place] Hardware Installer Name Role Phone NICK CUETO Primary Care Provider [phone] [facility] - 3RD FLOOR OTHER Assessment No assessment recorded. Plan of Treatment Reminders Order Date Submit Date Provider Last Modified By Organization Details Last Modified Time Details Appointments Acute Rounding Visit 2024 03:38P Chet Goncalves NP Not available Not available Not available Lab None recorded. Referral None recorded. Procedures None recorded. Surgeries None recorded. Imaging None recorded. Medication Orders None recorded. Patient TargetsNo targets recorded. Patient InstructionsNo instructions recorded. Reason for Referral None Reported. Problems Name Problem SNOMED Code Status Onset Date Resolution Date Notes Provider Name and Address Organization Details Recorded Time Diabetic foot ulcer 164240582 Active 2022 FENG KRAFT PA-C [employer] , [facility] [address], [address], [facility] 3 12:26:29 Type 2 diabetes mellitus with periphera l angiopath y 169363134 Active 2022 FENG KRAFT PA-C [address] , [address], [address], [facility] [employer] [facility] 3 12:26:45 Renal disorder due to type 2 diabetes mellitus 711306317 Active 2022 FENG KRAFT PA-C [address], [address], [address], [facility] [employer] [facility] 3 12:26:59 Periphera l neuropath y due to type 2 diabetes mellitus 455742920394 7 Active 2022 FENG KRAFT PA-C [address] , [address], [address], [facility] [employer] 3 12:27:14 Essential hypertens ion 98564260 Active 2022 FENG KRAFT PA-C [address], [address], [place], [address], [facility] [employer] [facility] 3 12:27:19 Dyslipide adrian 240659000 Active 2022 FENG KRAFT PA-C [address], [address], [place], [address], [facility] 3 12:27:26 Autoimmun e thyroidit is 69203724 Active 2022 FENG KRAFT PA-C [address], [address], [place], [address], [facility] 3 12:27:35 Anemia 518317010 Active 2022 FENG KRAFT PA-C [address], [address], [place], [address], [facility] 3 12:27:41 Chronic hyponatre adrian 42181392 Active 2022 FENG KRAFT PA-C [address], [address], [place], [address], [facility] [employer] 3 12:27:47 Depressiv e disorder 39752362 Active 2022 FENG KRAFT PA-C [address], [address], [place], [address], [facility] 3 12:27:52 Vitamin D deficienc y 58722262 Active 2022 FENG KRAFT PA-C [address], [address], [place], [address], [employer] 3 12:28:00 Pain of right knee joint 138621563416 100 Active 2022 FENG KRAFT PA-C [address], [address], [place], [address], [facility] 3 12:28:14 Congestiv e heart failure 38457012 Active 2022 details [email or web address] KRAFT PA-C [address], [address], [place], [address], [facility] [employer] [facility] 3 12:28:32 Uncontrol led type 2 diabetes mellitus 198059157 Active 2022 Puja Luke MD [address], [address], [place], [address], [facility] [employer] [facility] 3 18:14:15 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 262549259572 64288 Active 2022 Puja Luke MD [address], [place], [address], [facility] 3 19:57:21 Chronic osteomyel itis of right foot 112345891965 9104 Active 2022 Puja Luke MD [address] [facility], [address], [place], [address], [facility] 3 19:59:07 Acute cholecyst itis 18247999 Active 2023 s/p david [facility] 06/2023 ARTURO PAZ NP [address] [facility], [address], [place], [address], [facility] 4 14:22:11 Impaired cognition 516776503 Active 2023 SLUMS completed 07/25/23, score 17 ARTURO PAZ NP [address] [facility], [address], [place], [address], [facility] 4 11:03:32 Acute osteomyel itis of right foot 714632621299 9104 Active 2023 ARTURO PAZ NP [address] [facility], [address], [place], [address], [facility] 4 11:04:08 Problem Notes None recorded. Medical Equipment None Reported. Allergies Allergen ID Allergen Name Allergen Category Reaction Reaction Severity Criticality Documentation Date Start Date Code Code System Note Provider Name and Address Organization Details Recorded Time [id number] Lipitor medicatio n rash Not available Not available 07/02/2022 83295 5 RxNorm can take Zocor Not Available Not Available Not Available Vitals Date Recorded Body height Heart rate Respiratory rate Body temperature Oxygen saturation Oxygen saturation in Arterial blood by Pulse oximetry Systolic blood pressure Diastolic blood pressure Provider Name and Address Organization Details Last Updated DateTime 4 165.1 cm 65 /min 18 /min 97.5 [degF] 98 % 98 % 124 mm[Hg] 62 mm[Hg] ARTURO PAZ NP [address] [facility], [address], [place], [address], [employer] 4 18:59:58 Social History Question Answer Notes LastModified by Organization Details LastModified Time Tobacco Smoking Status Never Smoker FENG KRAFT PA-C [address] [facility], [address], [place], [address], [facility] 07/02/2022 11:36:18 Do You Have An Advance Directive? Yes Full Code; All Interventions [email or web address] Information not available 07/06/2022 What Is Your Level Of Alcohol Consumption? None [email or web address] Information not available 07/02/2022 What Is Your Code Status? Full Code Information not available 07/03/2022 Where Do You Live? Nursinghome Now LTC At [facility], Previously Lived At [facility], Awaiting Care Home Placement Information not available 01/23/2024 Legal Guardian? No Informati on not available 07/03/2022 Do You Have A Medical Power Of Level Vial Sealer? Yes Has HCP - Invoke 07/25/23 [email or web address] Information not available 07/25/2023 What Was The Date Of Your Most Recent Tobacco Screening? 04/21/2024 Information not available 04/21/2024 Do You Have An Out Of Hospital DNR? No Information not available 07/03/2022 What Is Your Relationship Status? Single Information not available 07/03/2022 Do You Use Any Illicit Or Recreational Drugs? No [email or web address] Information not available 07/02/2022 Has Tobacco Cessation Counseling Been Provided? No N/A As Pt Is A Non-smoker Information not available 07/03/2022 Do You Or Have You Ever Used Any Other Forms Of Tobacco Or Nicotine? No [email or web address] Information not available 07/02/2022 Sex: Unknown Functional Status None recorded. Mental Status None recorded. Family History Relationship Description Onset Age of this Age Resolved Age Notes LastModified by Organization Details LastModified Time Father Essential hypertension dece ed [email or web address] Not available 07/02/2022 11:34:54 Mother Type 2 diabetes mellitus dece ed [email or web address] Not available 07/02/2022 11:35:10 Medical History No medical history recorded. Immunizations Vaccine Type Date Status Note Provider Nam e and Address Organization Details Recorded Time COVID-19, mRNA, LNP-S, PF, 30 mcg/0.3 mL dose 1 completed FENG KRAFT PA-C [address], [address], [place], [address], [facility] 07/02/2022 11:29:08 COVID-19, mRNA, LNP-S, PF, 30 mcg/0.3 mL dose 1 completed FENG KRAFT PA-C [address], [address], [place], [address], [facility] 07/02/2022 11:29:11 Tdap 6 completed FENG KRAFT PA-C [address], [address], [place], [address], [facility] 07/02/2022 11:29:24 pneumococcal polysaccharide PPV23 [address], [place], [address], [facility] 07/02/2022 11:29:42 Influenza, split virus, quadrivalent, PF 3 completed FENG KRAFT PA-C [address], [address], [place], [address], [facility] 08/10/2022 13:17:40 pneumococcal polysaccharide PPV23 3 completed FENG KRAFT PA-C [address], [address], [place], [address], [facility] 08/10/2022 13:18:04 COVID-19, mRNA, LNP-S, bivalent, PF, 30 mcg/0.3 mL dose 3 completed FENG KRAFT PA-C [address] [facility], [address], [place], [address], [facility] 08/10/2022 13:18:32 Influenza, adjuvanted, quadrivalent, PF 3 completed Nyla bullard, [facility] 08/09/2023 17:56:04 COVID-19, mRNA, LNP-S, bivalent, PF, 30 mcg/0.3 mL dose 3 completed Nyla bullard, [facility] 08/12/2023 11:51:52 Past Encounters Encounter ID Performer Location Encounter Start Date Encounter Closed Date Diagnosis/Indication Diagnosis SNOMED-CT Code Diagnosis ICD10 Code [id number] Gail Goncalves NP [address] [address] 04/01/2024 09:22:59 04/02/2024 10:56:24 Cellulitis of toe 40719992 L03.032 Type 2 vanda betes mellitus with peripheral angiopathy 924065577 E11.52 E11.42 Renal diso rder due to type 2 diabetes mellitus 912900288 E11.21 Diabetic foot ulcer 3710 73394 L97.518 Peripheral edema 2081872 00 R60.9 Chronic ki dney disease stage 3A 595571086 N18.31 [id number] ARTURO PAZ NP [address] [address] 04/21/2024 14:23:09 04/22/2024 10:45:15 Diabetic foot ulcer 416058736 L97.518 Type 2 vanda betes mellitus with peripheral angiopathy 337141344 E11.52 E11.42 Peripheral edema 9467456 00 R60.9 Chronic ki dney disease stage 3A 469091810 N18.31 Anemia 697195322 D64.89 Congestive heart failure 97459692 I50.22 Depressive disorder 3548 9007 F33.0 Dyslipidemia 384218169 E 78.49 Essential hypertension 39618851 I10 Autoimmune thyroiditis 52970752 E06.3 Health Concerns Section Related Observation LastModified by Organization Detai ls LastModified Time None Recorded Concern Status LastModified by Organization Details LastModified Time None Recorded Payers Encounter Date Sequence Insurance Name Policy Number Policy Meza Covered Member ID Meza Member ID Guarantor Name 04/21/2024 1 [place] [employer] A Devin Montanez [id number] Mehul Beltran 04/21/2024 2 [place] [facility] Mehul Beltran [id number] Mehul Beltran Notes Date Note Type Note Provider Name and Address Organization Details Recorded Time 04/21/2024 text/html Mehul is seen today for a routine visit. He is a 53 yo LTC resident, PMH including AODM-poorly controlled with neuropathy, PVD, HTN, acanthosis nigricans, HLD, autoimmune thyroiditis, anemia, hyponatremia, depression, Vit D deficiency, chronic R knee pain (wears brace), chronic bilateral hand pain (uses splints), hx of JJ, developmental delay, s/p R cataract extraction, peripheral edema, and obesity. Since his last routine visit, DM and wound care followed.DM meds adjusted, BS now in good control. Mostly 100s, occ. low 200s. Karl. meds well. Appetite very good.He has a chronic R foot ulcer, non healing despite 2 surgical grafts which did not take. Followed by [facility] [place] as well as in house Wound LION Izquierdo crushed in wound helping with odor. VSSWeights with significant gain past 2 months, 255 -> 267 lbs.Labs continue to be trended weekly, stable. Upon exam, Mehul is up in his w/c, alert, in good spirits, NAD. He says he feels good, and denies any complaints.Case discussed with nsg., no new issues. No concerns with wound, complaints with dressing changes and STACY wraps/tubigrip. ARTURO PAZ NP [address] [facility], [address], [place], [address], [facility] [employer] 04/21/2024 19:29:03
[2024-06-26 17:36] LABS: Alkaline Phosphatase 145 U/L (39-117)
[2024-06-26 17:52] LABS: Influenza A PCR NEGATIVE (Negative); Influenza B PCR NEGATIVE (Negative); Resp Syncy Virus RNA Qual PCR NEGATIVE (Negative); SARS COV2 PCR INHOUSE NEGATIVE (Negative)
[2024-06-26 17:54] VITALS: BP 145/75; PULSE 102; RESP 16; TEMP 39.1; O2SAT 95
[2024-06-26] MEDS: vancomycin/NS 2,000 MG/500 ML PLAST..BAG 250 MG IV (17:58)
[2024-06-26 18:16] LABS: Reflex Lactate? Lactic Acid Added
[2024-06-26] MEDS: Ibuprofen 600 MG TABLET PO (18:17)
[2024-06-26 18:48] LABS: ~Lactic Acid-LAB USE ONLY 1.2 mmol/L (0.5-2.0)
--- NOTE | 2024-06-26 19:19 | PM.IMHP ---
History of Present Illness Date of Service: 06/26/24 Chief Complaint: Foot infection This is a 53-year-old Tunisian-speaking male with pertinent history of insulin-dependent diabetes mellitus with neuropathy, hypertension, hyperlipidemia, hypothyroidism, mood disorder, gastroesophageal reflux disease, CKD who presents to the emergency department for evaluation of left foot infection. Patient states he noticed that his left foot was more red, swollen that has been ongoing for the last 10 days. It has been progressive and associated with foul-smelling pus. Patient has neuropathy and has minimal sensation in the feet. Also has associated fevers and chills. No chest pain, palpitations, shortness of breath, abdominal pain, changes in urinary or bowel habits. History obtained with the help of field health officer. In the emergency department, patient was found to be septic and initiated on IV vancomycin and Zosyn. Given IV crystalloids in the ER. Lactic acid found to be 2.4 with leukocytosis. Creatinine elevated at 2.18 Review of Systems Constitutional: Constitutional: Reports chills and Reports fever(s) Cardiovascular: Cardiovascular: Reports no additional cardiovascular complaints Respiratory: Respiratory: Reports no additional respiratory complaints Gastrointestinal: Gastrointestinal: Reports no additional gastrointestinal complaints Genitourinary: Genitourinary: Reports no additional male genitourinary complaints [facility] Medical History Acute osteomyelitis of right foot Nausea and vomiting Bacteremia Bilateral hand pain Right knee pain Hypovitaminosis D Right foot pain Left foot pain Infection of penis Hyponatremia Hyperkalemia Diabetic ketoacidosis Acute kidney injury Autoimmune thyroiditis Obesity due to excess calories Type 2 diabetes mellitus with hyperglycemia, with long-term current use of insulin CHF (congestive heart failure) Cognitive developmental delay Proteinuria Type 2 diabetes mellitus with other diabetic kidney complication Essential hypertension Hyperlipidemia LDL goal <100 Edema Hyperlipidemia Cataracts, both eyes HTN (hypertension) Hypothyroid Diabetes Family History Father HTN (hypertension) Mother Diabetes mellitus Maternal Grandmother Diabetes mellitus Surgical History S/P split thickness skin graft (07/10/21) Status post transmetatarsal amputation of right foot Hx laparoscopic cholecystectomy (10/16/22) 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) Hx of removal of cyst Hx of cataract surgery Social History Household Members: Other Household Members Other:: longterm Housing: House Housing Other:: SNF Do you presently have visiting nurse or other home services: No Unable to assess alcohol history related to: Unknown Alcohol intake: never Patient Tobacco Use Status: Never used Tobacco e-Cigarette/Vaping Use: Never Used Second Hand Smoke Exposure: No Substance Use Type: Caffiene Advance Directives: Yes Advance Directives on File: Yes Advance Directives Date on File: 07/25/23 service: No Current occupational status: disabled Cognitive needs: Yes Hearing needs: No Vision needs: No Meds Allergies Allergy/AdvReac Type Severity Reaction Status Date / Time atorvastatin [ATORVASTATIN] Allergy Unknown skin Verified 06/26/24 15:59 eruption Active Medications: Current Medications Acetaminophen (Acetaminophen 325 Mg Tablet) 650 mg PO Q6H PRN PRN Reason: Pain, Mild 1-3,fever,headache Calcium Carbonate (Calcium Carbonate 750 Mg Tab.Chew) 750 mg PO Q4H PRN PRN Reason: Heartburn Melatonin (Melatonin 3 Mg Tablet) 6 mg PO BEDTIME PRN PRN Reason: Insomnia Sodium Chloride (0.9 % Sodium Chloride Flush 3 Ml Syringe) 3 [facility] Medications ?Medication ?Instructions ?Recorded ?Confirmed ?Last Taken ?Type metformin 500 mg tablet 1,000 mg PO BID 06/20/22 08/27/23 06/20/22 History amlodipine 10 mg tablet 10 mg PO DAILY 10/12/22 08/27/23 07/10/23 History cholecalciferol (vitamin D3) 50 50 mcg PO DAILY 10/12/22 08/27/23 Unknown History mcg (2,000 unit) capsule escitalopram oxalate 10 mg tablet 10 mg PO DAILY 10/12/22 08/27/23 Unknown History ezetimibe 10 mg tablet 10 mg PO DAILY 10/12/22 08/27/23 Unknown History fenofibrate 54 mg tablet 54 mg PO DAILY 10/12/22 08/27/23 Unknown History gabapentin 100 mg capsule 100 mg PO TID 10/12/22 08/27/23 Unknown History insulin degludec 200 unit/mL (3 20 unit subcut QAM 04/21/23 03/05/24 Unknown History mL) subcutaneous pen (Tresiba FlexTouch U-200 insulin) levothyroxine 150 mcg tablet 150 mcg PO DAILY 10/12/22 08/27/23 07/10/23 History lisinopril 10 mg tablet 10 mg PO DAILY 10/12/22 08/27/23 Unknown History ondansetron HCl 4 mg tablet 4 mg PO Q8H PRN Nausea 10/12/22 08/27/23 Unknown History simvastatin 40 mg tablet 40 mg PO BEDTIME 10/12/22 08/27/23 Unknown History Saccharomyces boulardii 250 mg 250 mg PO BID 10/13/22 08/27/23 Unknown History capsule (Probiotic (S.boulardii)) acetaminophen 325 mg tablet 650 mg PO Q4H PRN Fever Or Pain 10/13/22 11/07/23 Unknown History bisacodyl 10 mg rectal suppository 10 mg SD DAILY PRN Constipation 10/13/22 08/27/23 Unknown History magnesium hydroxide 400 mg/5 mL 30 ml PO DAILY PRN Constipation 10/13/22 08/27/23 Unknown History oral suspension (Milk of Magnesia) sodium phosphates 19 gram-7 118 ml SD DAILY PRN Constipation 10/13/22 08/27/23 Unknown History gram/118 mL enema (Fleet Enema) ammonium lactate 12 % topical cream 1 appl topical DAILY 07/10/23 08/27/23 Unknown History dulaglutide 3 mg/0.5 mL 3 mg subcut TU 07/10/23 08/27/23 Unknown History subcutaneous pen injector (Trulicity) insulin lispro 100 unit/mL See Protocol subcut QIDACHS 07/10/23 08/27/23 Unknown History subcutaneous solution famotidine 20 mg tablet 20 mg PO BID 07/18/23 08/27/23 Unknown History loperamide 2 mg tablet 2 mg PO Q4H PRN Loose Stool 07/18/23 08/27/23 Unknown History Physical Exam Vital Signs and Narrative: Vital Signs: Last Vital Signs Temp 102.3 F H 06/26/24 17:54 Pulse 102 H 06/26/24 17:54 Resp 16 06/26/24 17:54 BP 145/75 H 06/26/24 17:54 Pulse Ox 95 06/26/24 17:54 O2 Del Method Room Air 06/26/24 17:54 BMI result Body Mass Index 33.4 Middle-aged male lying in bed in no distress Neck supple, no JVD Regular rate and rhythm, S1-S2 heard Regular breath sounds bilaterally, no wheezing or crackles appreciated Abdomen soft nontender, no guarding, no rigidity Patient is awake, alert and oriented to self, place, time and person ; no focal motor deficit Psych: Normal mood BKA on the right, left foot with purulent cellulitis over dorsum of the foot, gangrene of 5th toe, ulcer on the plantar aspect of the foot (pictured below) Skin: Other: Results Labs 06/26/24 16:12 06/26/24 16:12 Labs: Laboratory Results - last 24 hr 06/26/24 06/26/24 06/26/24 16:01 16:12 16:26 MCV 82.8 MCH 27.0 MCHC 32.6 RDW 13.2 Plt Count 299 D MPV 10.3 Immature Gran % (Auto) 0.6 H Neut % (Auto) 88.9 H Lymph % (Auto) 4.3 L [place] % (Auto) 3.8 Eos % (Auto) 1.9 Baso % (Auto) 0.5 Lymph # (Auto) 0.7 L [place] # (Auto) 0.7 Eos # (Auto) 0.3 Baso # (Auto) 0.1 Abs Immat Gran (auto) 0.11 H Absolute Neuts (auto) 15.2 H Absolute Nucleated RBC 0.000 Nucleated RBC % (auto) 0.0 Anion Gap 17 Estim Creat Clear Calc 44.3 Estimated GFR 32 POC Glucose 297 H Random Glucose 339 H Lactic Acid 2.4 H* Lactic Acid F/U @ 2Hr Calcium 8.7 Total Bilirubin 0.6 AST 73 H ALT 64 H Alkaline Phosphatase 145 H Troponin I High Sens < 2.7 Total Protein 8.1 H Albumin 3.4 L Influenza Type A (PCR) NEGATIVE Influenza Type B (PCR) NEGATIVE RSV RNA Qual (PCR) NEGATIVE SARS-CoV-2 RNA (RT-PCR) NEGATIVE 06/26/24 18:29 MCV MCH MCHC RDW Plt Count MPV Immature Gran % (Auto) Neut % (Auto) Lymph % (Auto) [place] % (Auto) Eos % (Auto) Baso % (Auto) Lymph # (Auto) [place] # (Auto) Eos # (Auto) Baso # (Auto) Abs Immat Gran (auto) Absolute Neuts (auto) Absolute Nucleated RBC Nucleated RBC % (auto) Anion Gap Estim Creat Clear Calc Estimated GFR POC Glucose Random Glucose Lactic Acid Lactic Acid F/U @ 2Hr 1.2 Calcium Total Bilirubin AST ALT Alkaline Phosphatase Troponin I High Sens Total Protein Albumin Influenza Type A (PCR) Influenza Type B (PCR) RSV RNA Qual (PCR) SARS-CoV-2 RNA (RT-PCR) Assessment and Plan (1) Acute kidney injury superimposed on CKD: Status: Acute (2) Diabetic foot ulcer: Status: Acute (3) Cellulitis: Status: Acute Plan This is a 53-year-old [place]ian-speaking male with pertinent history of insulin-dependent diabetes mellitus with neuropathy, hypertension, hyperlipidemia, hypothyroidism, mood disorder, gastroesophageal reflux disease, CKD who presents to the emergency department for evaluation of left foot infection. #. Severe sepsis due to infected diabetic foot ulcer, gangrenous 5th toe and purulent cellulitis: Resuscitated with IV crystalloids. Initiating IV vancomycin and Zosyn. Obtaining MRI left foot to rule out osteo. Blood culture pending. Consulting General surgery and Wound Care #. JJ and CKD: Monitor with crystalloid resuscitation. Avoid nephrotoxins. #. Insulin-dependent diabetes mellitus with hyperglycemia: Initiating basal plus insulin regimen #. Acute lactic acidosis due to sepsis #. Elevated transaminases due to sepsis #. Hypertension: Hold home antihypertensives in the setting of sepsis. Resume as appropriate #. Mood disorder: Continue home mood stabilizers #. Mixed hyperlipidemia: On statin and fenofibrate #. Hypothyroidism: On Synthroid Med rec pending DVT prophylaxis: Lovenox Full code Admit as inpatient and will require two night minimum hospital stay for IV antibiotic (as above), which is not possible in a lesser acute setting. Quality Stroke Does the patient have a stroke diagnosis?: No VTE Prior VTE?: No VTE Risk Level:: Medical - moderate - high VTE Device Contraindication: Treatment Not Indicated VTE Drug Contraindication: N/A - Med Ordered
[2024-06-26 19:31] VITALS: BP 120/52; PULSE 91; RESP 25; TEMP 38.4; O2SAT 94
--- NOTE | 2024-06-26 19:32 | MHC.EDTECH ---
Patient incontinent of stool, full bed change
[2024-06-26 20:30] LABS: Lactic Acid 2.4 mmol/L (0.5-2.0)
--- NOTE | 2024-06-26 20:41 | PHA.MEDREC ---
Pharmacy Consult ? Medication Reconciliation Pharmacy has completed the medication reconciliation. Utilized list from [facility].
[2024-06-26 21:31] VITALS: BP 98/56; PULSE 80; RESP 20; TEMP 37.7; O2SAT 94
--- NOTE | 2024-06-26 21:33 | MHC.EDTECH ---
PATIENT INCONTINENT OF STOOL BED CHANGE
[2024-06-26 22:00] LABS: Glucose, Whole Blood 246 mg/dL (60-115)
[2024-06-26 22:35] VITALS: BP 101/50; PULSE 78; RESP 18
[2024-06-26] MEDS: Loperamide HCl 2 MG CAPSULE PO (22:46)
[2024-06-26] MEDS: Enoxaparin Sodium 40 MG/0.4 ML SYRINGE SUBCUT (22:47)
[2024-06-26] MEDS: Insulin Glargine,Hum.rec.anlog 100 UNIT/ML 10 ML VIAL 10 UNIT SUBCUT ×2 (22:48→22:58)
[2024-06-26] MEDS: Insulin Lispro 100 UNIT/ML 3 ML VIAL SUBCUT (22:48)
[2024-06-26] MEDS: Piperacillin Sodium/Tazobactam 4.5 GM in 0.9 % Sodium Chloride 100 ML IV (22:50)
[2024-06-27 01:23] VITALS: BP 101/54; PULSE 70; RESP 19; TEMP 37.1; O2SAT 97
[2024-06-27 01:58] VITALS: BP 100/54; PULSE 77; RESP 16; O2SAT 97
--- NOTE | 2024-06-27 03:45 | PC.NURSE ---
assumed care of pt at 0330.
[2024-06-27] MEDS: Piperacillin Sodium/Tazobactam 4.5 GM in 0.9 % Sodium Chloride 100 ML IV ×4 (06:09→22:47)
[2024-06-27] MEDS: Levothyroxine Sodium 112 MCG TABLET PO (06:10)
[2024-06-27] MEDS: Levothyroxine Sodium 25 MCG TABLET PO (06:10)
[2024-06-27 06:13] VITALS: BP 112/65; PULSE 76; RESP 15; TEMP 37.2; O2SAT 94
[2024-06-27] MEDS: vancomycin HCL 500 MG in 0.9 % Sodium Chloride 100 ML 110 MG IV (06:27)
[2024-06-27 07:04] LABS: Basophils Absolute Auto 0.1 X10*3/uL (0.0-0.2); Basophils Percent Auto 0.5 % (0-2); Eosinophils Absolute Auto 0.5 X10*3/uL (0.0-0.4); Eosinophils Percent Auto 3.9 % (0-4); Hematocrit 22.1 % (42.0-52.0); Hemoglobin 7.4 g/dl (14.0-18.0); Imm Gran Abs Auto 0.12 X10*3/uL (0.00-0.03); Imm Gran Pct Auto 0.9 % (0.0-0.4); Lymphocytes Absolute Auto 0.9 X10*3/uL (1.2-4.9); Lymphocytes Percent Auto 6.7 % (20-40); MANUAL DIFF FLAG SCAN; Mean Corpuscular HGB Conc 33.5 g/dl (31.0-36.0); Mean Corpuscular Hemoglobin 27.5 pg (27.0-33.0); Mean Corpuscular Volume 82.2 fL (80.0-98.0); Monocytes Percent Auto 6.9 % (2-11); Neutrophils Absolute Auto 11.3 x10*3/uL (2.0-8.3); Neutrophils Percent Auto 81.1 % (45-73); PLT CLUMP 1; Red Blood Count 2.69 X10*6/uL (4.60-5.80); Red Cell Distribution Width 13.2 % (11.0-16.0); SCAN SMEAR FLAG 1
[2024-06-27 07:16] LABS: Anion Gap 14 (12-20); Blood Urea Nitrogen 38 mg/dL (9-16); Calcium 7.6 mg/dL (8.4-10.2); Carbon Dioxide 15 mmol/L (22-29); Chloride 110 mmol/L (96-108); Creatinine Clr Calc Pharmacy 51.1; Estimated Glomerular Filt Rate 37; Glucose Random 187 mg/dL (60-115); Sodium 135 mmol/L (135-145)
[2024-06-27 07:21] LABS: Glucose, Whole Blood 171 mg/dL (60-115)
[2024-06-27] MEDS: 0.9 % Sodium Chloride Flush 3 ML SYRINGE IVFLUSH (07:52)
[2024-06-27] MEDS: Insulin Lispro 100 UNIT/ML 3 ML VIAL SUBCUT ×4 (07:54→22:43)
[2024-06-27 08:12] LABS: SLIDE REVIEW VERIFIED
[2024-06-27] MEDS: Cholecalciferol (Vitamin D3) 25 MCG TABLET 50 MCG PO (08:13)
[2024-06-27] MEDS: Escitalopram Oxalate 10 MG TABLET PO (08:13)
[2024-06-27] MEDS: Insulin Glargine,Hum.rec.anlog 100 UNIT/ML 10 ML VIAL 10 UNIT SUBCUT (08:13)
[2024-06-27] MEDS: Ezetimibe 10 MG TABLET PO (08:14)
[2024-06-27] MEDS: Fenofibrate 54 MG TABLET PO (08:14)
--- NOTE | 2024-06-27 09:09 | PC.NURSE ---
MRI screening form completed with medical management trainer, Anna, at bedside. Form faxed down to MRI at this time.
--- NOTE | 2024-06-27 09:39 | P.CONGS_ITS ---
History of Present Illness Consult details Consult date: 06/27/24 Requesting physician: Em Downing Narrative: 53-year-old male patient well known to me with a history of diabetes mellitus, peripheral vascular disease, status post right transmetatarsal amputation, peripheral neuropathy, hypertension, hyperlipidemia, hypothyroidism, and chronic kidney disease presenting to the emergency department for infected left foot for the past 10 days. The patient apparently noted increased swelling and is foul- smelling discharge from the toes with associated fevers and chills. In the emergency department he was found to have an elevated WBC of 17.1, glucose of 297, lactic acid of 2.4 with a repeat after hydration of 1.2. X-ray of the left foot revealed questionable fractures of the 4th and 5th toe at the proximal phalanx, no radiopaque foreign bodies identified. Further workup with CT was recommended. Surgical consultation was requested for further management of this foot wound. Review of Systems 2 Review of Systems: Yes Unobtainable due to mental condition PMFSH Past Medical History Medical History Acute osteomyelitis of right foot Nausea and vomiting Bacteremia Bilateral hand pain Right knee pain Hypovitaminosis D Right foot pain Left foot pain Infection of penis Hyponatremia Hyperkalemia Diabetic ketoacidosis Acute kidney injury Autoimmune thyroiditis Obesity due to excess calories Type 2 diabetes mellitus with hyperglycemia, with long-term current use of insulin CHF (congestive heart failure) Cognitive developmental delay Proteinuria Type 2 diabetes mellitus with other diabetic kidney complication Essential hypertension Hyperlipidemia LDL goal <100 Edema Hyperlipidemia Cataracts, both eyes HTN (hypertension) Hypothyroid Diabetes Family History Family History Father HTN (hypertension) Mother Diabetes mellitus Maternal Grandmother Diabetes mellitus Surgical History Surgical History S/P split thickness skin graft (07/10/21) Status post transmetatarsal amputation of right foot Hx laparoscopic cholecystectomy (10/16/22) 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) Hx of removal of cyst Hx of cataract surgery Social History Social History Household Members: Other Household Members Other:: fpc Housing: House Housing Other:: SNF Do you presently have visiting nurse or other home services: No Unable to assess alcohol history related to: Unknown Alcohol intake: never Patient Tobacco Use Status: Never used Tobacco Smoked in Last 30 Days: No e-Cigarette/Vaping Use: Never Used Second Hand Smoke Exposure: No Use of substances other than those prescribed or required for medical reasons: No Substance Use Type: Caffiene Advance Directives: Yes Advance Directives on File: Yes Advance Directives Date on File: 07/25/23 service: No Current occupational status: disabled Cognitive needs: Yes Hearing needs: No Vision needs: No Meds Allergies Allergy/AdvReac Type Severity Reaction Status Date / Time atorvastatin [ATORVASTATIN] Allergy Unknown skin Verified 06/26/24 15:59 eruption Active Medications: Current Medications Acetaminophen (Acetaminophen 325 Mg Tablet) 650 mg PO Q6H PRN PRN Reason: Pain, Mild 1-3,fever,headache Bisacodyl (Bisacodyl 10 Mg Supp.Rect) 10 mg SC DAILY PRN PRN Reason: Constipation Calcium Carbonate (Calcium Carbonate 750 Mg Tab.Chew) 750 mg PO Q4H PRN PRN Reason: Heartburn Ezetimibe (Ezetimibe 10 Mg Tablet) 10 mg PO DAILY [facility] Last Admin: 06/27/24 08:14 Dose: 10 mg Enoxaparin Sodium (Enoxaparin Sodium 40 Mg/0.4 Ml Syringe) 40 mg SUBCUT Q24H [facility] Last Admin: 06/26/24 22:47 Dose: 40 mg Escitalopram Oxalate (Escitalopram Oxalate 10 Mg Tablet) 10 mg PO DAILY [facility] Last Admin: 06/27/24 08:13 Dose: 10 mg Fenofibrate (Fenofibrate 54 Mg Tablet) 54 mg PO DAILY [facility] Last Admin: 06/27/24 08:14 Dose: 54 mg Glucose (Glucose Gel 15 Gm Gel..Gram.) 15 gm PO Q15M PRN; Protocol PRN Reason: per Hypoglycemia Standing Ord. Piperacillin Sod/Tazobactam (Sod 4.5 gm/ Sodium Chloride) 100 mls @ 200 mls/hr IV Q6H [facility] Last Infusion: 06/27/24 06:39 Dose: Infused Dextrose (D10) 250 mls @ 750 mls/hr IV Q15M PRN; Protocol PRN Reason: per Hypoglycemia Standing Ord. Vancomycin HCl 500 mg/ Sodium (Chloride) 110 mls @ 110 mls/hr IV Q12H [facility] Last Infusion: 06/27/24 07:50 Dose: Infused Insulin Glargine (Insulin Glargine,Hum.Rec.Anlog 100 Unit/Ml 10 Ml Vial) 10 unit SUBCUT DAILY [facility] Last Admin: 06/27/24 08:13 Dose: 10 unit Insulin Human Lispro (Insulin Lispro 100 Unit/Ml 3 Ml Vial) 0 unit SUBCUT QIDACHS [facility]; Protocol Last Admin: 06/27/24 07:54 Dose: 2 unit Levothyroxine Sodium (Levothyroxine Sodium 112 Mcg Tablet) 112 mcg PO DAILY@0600 [facility] Last Admin: 06/27/24 06:10 Dose: 112 mcg Levothyroxine Sodium (Levothyroxine Sodium 25 Mcg Tablet) 25 mcg PO DAILY@0600 [facility] Last Admin: 06/27/24 06:10 Dose: 25 mcg Magnesium Hydroxide (Milk Of Magnesia 30 Ml Oral.Susp) 30 ml PO DAILY PRN PRN Reason: Constipation Magnesium Hydroxide (Milk Of Magnesia 30 Ml Oral.Susp) 30 ml PO DAILY PRN PRN Reason: Constipation Melatonin (Melatonin 3 Mg Tablet) 6 mg PO BEDTIME PRN PRN Reason: Insomnia Ondansetron HCl (Ondansetron Hcl 4 Mg/2 Ml Vial) 4 mg IVPUSH Q8H PRN PRN Reason: Nausea and Vomiting Pharmacy Consult (Consult Rx Vancomycin Dosing) 1 each MISCELLANE DAILY PRN PRN Reason: Consult order Sodium Biphosphate/Sodium Phosphate (Sodium Phosphate,Glasscock-Dibasic 133 Ml Enema) 118 ml SC DAILY PRN PRN Reason: Constipation Sodium Chloride (0.9 % Sodium Chloride Flush 3 Ml Syringe) 3 ml IVFLUSH QSHIFT [facility] Last Admin: 06/27/24 07:52 Dose: 3 ml Vitamin D (Cholecalciferol (Vitamin D3) 25 Mcg Tablet) 50 mcg PO DAILY [facility] Last Admin: 06/27/24 08:13 Dose: 50 mcg Home Medications ?Medication ?Instructions ?Recorded ?Confirmed ?Last Taken ?Type metformin 500 mg tablet 750 mg PO DAILY 06/20/22 06/26/24 06/20/22 History amlodipine 10 mg tablet 10 mg PO DAILY 10/12/22 06/26/24 07/10/23 History cholecalciferol (vitamin D3) 50 50 mcg PO DAILY 10/12/22 06/26/24 Unknown History mcg (2,000 unit) capsule escitalopram oxalate 10 mg tablet 10 mg PO DAILY 10/12/22 06/26/24 Unknown History ezetimibe 10 mg tablet 10 mg PO DAILY 10/12/22 06/26/24 Unknown History fenofibrate 54 mg tablet 54 mg PO DAILY 10/12/22 06/26/24 Unknown History insulin degludec 200 unit/mL (3 20 unit subcut DAILY 10/12/22 06/26/24 Unknown History mL) subcutaneous pen (Tresiba FlexTouch U-200 insulin) lisinopril 10 mg tablet 10 mg PO DAILY 10/12/22 06/26/24 Unknown History ondansetron HCl 4 mg tablet 4 mg PO Q8H PRN Nausea And Vomiting 10/12/22 06/26/24 Unknown History simvastatin 40 mg tablet 40 mg PO BEDTIME 10/12/22 06/26/24 Unknown History acetaminophen 325 mg tablet 650 mg PO Q4H PRN Fever Or Pain 10/13/22 06/26/24 Unknown History bisacodyl 10 mg rectal suppository 10 mg SC DAILY PRN Constipation 10/13/22 06/26/24 Unknown History magnesium hydroxide 400 mg/5 mL 30 ml PO DAILY PRN Constipation 10/13/22 06/26/24 Unknown History oral suspension (Milk of Magnesia) sodium phosphates 19 gram-7 118 ml SC DAILY PRN Constipation 10/13/22 06/26/24 Unknown History gram/118 mL enema (Fleet Enema) ammonium lactate 12 % topical cream 1 appl topical DAILY 07/10/23 06/26/24 Unknown History insulin lispro 100 unit/mL See Protocol subcut QIDACHS 07/10/23 06/26/24 Unknown History subcutaneous solution loperamide 2 mg tablet 2 mg PO Q4H PRN Loose Stool 07/18/23 06/26/24 Unknown History levothyroxine 137 mcg tablet 137 mcg PO DAILY@0600 06/26/24 06/26/24 Unknown History metronidazole 500 mg tablet 500 mg DAILY wound 06/26/24 06/26/24 Unknown History tirzepatide 5 mg/0.5 mL 5 mg subcut TH 06/26/24 06/26/24 Unknown History subcutaneous pen injector (Horace) Physical Exam 2 Vital Signs: Vital Signs: Last Vital Signs Temp 98.9 F 06/27/24 06:13 Pulse 76 06/27/24 06:13 Resp 15 06/27/24 06:13 BP 112/65 06/27/24 06:13 Pulse Ox 94 06/27/24 06:13 O2 Del Method Room Air 06/27/24 06:13 BMI result Body Mass Index 33.4 Const: General: lethargic and tired appearing Nutritional Appearance: o verweight Orientation/consciousness: lethargic HEENT: Head: Yes normocephalic and Yes atraumatic Resp: Effort & Inspection: normal respiratory effort, no audible wheezes, no cough and no respiratory distress Skin: Other: Warm, dry Extrem: Other: Left foot: Extensive necrotic changes involving the plantar surface of the distal metatarsal heads of the 3rd 4th and 5th toes with evidence of skin necrosis involving the 3rd, 4th, and 5th toes. Extensive desquamated skin over the dorsal surface of the 4th to 5th toes suggestive of an underlying abscess/osteomyelitis. Changes extend nearly to the proximal metatarsals. Right transmetatarsal amputation site is open with a dry eschar with no evidence of healing. Results Labs 06/27/24 06:42 06/27/24 06:42 Labs: Abnormal lab results 06/26/24 06/26/24 06/26/24 Range/Units 16:01 16:12 21:57 WBC 17.1 H (4.8-10.8) X10*3/uL RBC 3.19 L (4.60-5.80) X10*6/uL Hgb 8.6 L (14.0-18.0) g/dl Hct 26.4 L (42.0-52.0) % Immature Gran % (Auto) 0.6 H (0.0-0.4) % Neut % (Auto) 88.9 H (45-73) % Lymph % (Auto) 4.3 L (20-40) % Lymph # (Auto) 0.7 L (1.2-4.9) X10*3/uL Eos # (Auto) (0.0-0.4) X10*3/uL Abs Immat Gran (auto) 0.11 H (0.00-0.03) X10*3/uL Absolute Neuts (auto) 15.2 H (2.0-8.3) x10*3/uL Sodium 131 L (135-145) mmol/L Chloride (96-108) mmol/L Carbon Dioxide 16 L (22-29) mmol/L BUN 40 H (9-16) mg/dL Creatinine 2.18 H (0.5-1.4) mg/dL POC Glucose 297 H 246 H (60-115) mg/dL Random Glucose 339 H (60-115) mg/dL Lactic Acid 2.4 H* (0.5-2.0) mmol/L Calcium (8.4-10.2) mg/dL AST 73 H (5-37) U/L ALT 64 H (0-40) U/L Alkaline Phosphatase 145 H (39-117) U/L Total Protein 8.1 H (6.5-8.0) g/dL Albumin 3.4 L (3.5-5.0) g/dL 06/27/24 06/27/24 Range/Units 06:42 07:17 WBC 14.0 H (4.8-10.8) X10*3/uL RBC 2.69 L (4.60-5.80) X10*6/uL Hgb 7.4 L (14.0-18.0) g/dl Hct 22.1 L (42.0-52.0) % Immature Gran % (Auto) 0.9 H (0.0-0.4) % Neut % (Auto) 81.1 H (45-73) % Lymph % (Auto) 6.7 L (20-40) % Lymph # (Auto) 0.9 L (1.2-4.9) X10*3/uL Eos # (Auto) 0.5 H (0.0-0.4) X10*3/uL Abs Immat Gran (auto) 0.12 H (0.00-0.03) X10*3/uL Absolute Neuts (auto) 11.3 H (2.0-8.3) x10*3/uL Sodium (135-145) mmol/L Chloride 110 H (96-108) mmol/L Carbon Dioxide 15 L (22-29) mmol/L BUN 38 H (9-16) mg/dL Creatinine 1.89 H (0.5-1.4) mg/dL POC Glucose 171 H (60-115) mg/dL Random Glucose 187 H (60-115) mg/dL Lactic Acid (0.5-2.0) mmol/L Calcium 7.6 L D (8.4-10.2) mg/dL AST (5-37) U/L ALT (0-40) U/L Alkaline Phosphatase (39-117) U/L Total Protein (6.5-8.0) g/dL Albumin (3.5-5.0) g/dL Short CBC 06/26/24 06/27/24 Range/Units 16:12 06:42 WBC 17.1 H 14.0 H (4.8-10.8) X10*3/uL Hgb 8.6 L 7.4 L (14.0-18.0) g/dl Hct 26.4 L 22.1 L (42.0-52.0) % Plt Count 299 D TNP (160-400) X10*3/uL BMP 06/26/24 06/27/24 16:12 06:42 Sodium 131 L 135 Potassium 4.8 4.0 Chloride 103 110 H Carbon Dioxide 16 L 15 L BUN 40 H 38 H Creatinine 2.18 H 1.89 H Calcium 8.7 7.6 L D Liver Function 06/26/24 Range/Units 16:12 Total Bilirubin 0.6 (0.0-1.0) mg/dL AST 73 H (5-37) U/L ALT 64 H (0-40) U/L Alkaline Phosphatase 145 H (39-117) U/L Albumin 3.4 L (3.5-5.0) g/dL All other labs normal. 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 He is at high risk for limb loss due to the extensive infection. Recommend further evaluation with CT of the left foot. Continue vancomycin and Zosyn. Right foot would also require debridement during this hospitalization. We will continue to monitor. Procedures Date of Service Date of Service: 06/27/24
--- NOTE | 2024-06-27 10:42 | PC.NURSE ---
Pt. off of the unit and at MRI at this time.
--- NOTE | 2024-06-27 10:55 | PC.NURSE ---
Report called to Shakira RN - pt. going to ED Overflow after MRI
--- NOTE | 2024-06-27 11:47 | PC.NURSE ---
Pt. remains in MRI at this time.
--- NOTE | 2024-06-27 13:00 | MHC.EDTECH ---
patient came from MRI incontinent of stool. clean him up and transfer into hospital bed.
[2024-06-27 13:34] LABS: Glucose, Whole Blood 215 mg/dL (60-115)
--- NOTE | 2024-06-27 13:37 | P.PNIM_ITS ---
Subjective Subjective Date of Service: 06/27/24 Review of Systems Follow up foot wound denied pain very vague about previous amputation surgery Physical Exam 2 Vital Signs: Vital Signs: Last Vital Signs Temp 98.9 F 06/27/24 06:13 Pulse 76 06/27/24 06:13 Resp 15 06/27/24 06:13 BP 112/65 06/27/24 06:13 Pulse Ox 94 06/27/24 06:13 O2 Del Method Room Air 06/27/24 06:13 BMI result Body Mass Index 33.4 Appearing in no acute distress lung sounds are clear to auscultation heart regular rate rhythm, clear S1, S2 positive bowel sounds, abdomen is soft, nontender neuro patient is alert x3, no focal deficits Objective Data Active Medications Acetaminophen (Acetaminophen 325 Mg Tablet) 650 mg PO Q6H PRN PRN Reason: Pain, Mild 1-3,fever,headache Bisacodyl (Bisacodyl 10 Mg Supp.Rect) 10 mg [place] DAILY PRN PRN Reason: Constipation Calcium Carbonate (Calcium Carbonate 750 Mg Tab.Chew) 750 mg PO Q4H PRN PRN Reason: Heartburn Ezetimibe (Ezetimibe 10 Mg Tablet) 10 mg PO DAILY [facility] Last Admin: 06/27/24 08:14 Dose: 10 mg Documented By: JOSELITO Enoxaparin Sodium (Enoxaparin Sodium 40 Mg/0.4 Ml Syringe) 40 mg SUBCUT Q24H [facility] Last Admin: 06/26/24 22:47 Dose: 40 mg Documented By: JYOTSNA Escitalopram Oxalate (Escitalopram Oxalate 10 Mg Tablet) 10 mg PO DAILY [facility] Last Admin: 06/27/24 08:13 Dose: 10 mg Documented By: JOSELITO Fenofibrate (Fenofibrate 54 Mg Tablet) 54 mg PO DAILY [facility] Last Admin: 06/27/24 08:14 Dose: 54 mg Documented By: JOSELITO Glucose (Glucose Gel 15 Gm Gel..Gram.) 15 gm PO Q15M PRN; Protocol PRN Reason: per Hypoglycemia Standing Ord. Piperacillin Sod/Tazobactam (Sod 4.5 gm/ Sodium Chloride) 100 mls @ 200 mls/hr IV Q6H [facility] Last Admin: 06/27/24 13:24 Dose: 200 mls/hr Documented By: STEPHEN Dextrose (D10) 250 mls @ 750 mls/hr IV Q15M PRN; Protocol PRN Reason: per Hypoglycemia Standing Ord. Vancomycin HCl 500 mg/ Sodium (Chloride) 110 mls @ 110 mls/hr IV Q12H [facility] Last Infusion: 06/27/24 07:50 Dose: Infused Documented By: OJSELITO Insulin Glargine (Insulin Glargine,Hum.Rec.Anlog 100 Unit/Ml 10 Ml Vial) 10 unit SUBCUT DAILY [facility] Last Admin: 06/27/24 08:13 Dose: 10 unit Documented By: JOSELITO Insulin Human Lispro (Insulin Lispro 100 Unit/Ml 3 Ml Vial) 0 unit SUBCUT QIDACHS [facility]; Protocol Last Admin: 06/27/24 07:54 Dose: 2 unit Documented By: JOSELITO Comments: Unable to scan bar code - Insulin sticker won't scan Levothyroxine Sodium (Levothyroxine Sodium 112 Mcg Tablet) 112 mcg PO DAILY@0600 [facility] Last Admin: 06/27/24 06:10 Dose: 112 mcg Documented By: JACEK Levothyroxine Sodium (Levothyroxine Sodium 25 Mcg Tablet) 25 mcg PO DAILY@0600 [facility] Last Admin: 06/27/24 06:10 Dose: 25 mcg Documented By: JACEK Magnesium Hydroxide (Milk Of Magnesia 30 Ml Oral.Susp) 30 ml PO DAILY PRN PRN Reason: Constipation Magnesium Hydroxide (Milk Of Magnesia 30 Ml Oral.Susp) 30 ml PO DAILY PRN PRN Reason: Constipation Melatonin (Melatonin 3 Mg Tablet) 6 mg PO BEDTIME PRN PRN Reason: Insomnia Ondansetron HCl (Ondansetron Hcl 4 Mg/2 Ml Vial) 4 mg IVPUSH Q8H PRN PRN Reason: Nausea and Vomiting Pharmacy Consult (Consult Rx Vancomycin Dosing) 1 each MISCELLANE DAILY PRN PRN Reason: Consult order Sodium Biphosphate/Sodium Phosphate (Sodium Phosphate,[place]-Dibasic 133 Ml Enema) 118 ml [place] DAILY PRN PRN Reason: Constipation Sodium Chloride (0.9 % Sodium Chloride Flush 3 Ml Syringe) 3 ml IVFLUSH QSHIFT [facility] Last Admin: 06/27/24 07:52 Dose: 3 ml Documented By: JOSELITO Vitamin D (Cholecalciferol (Vitamin D3) 25 Mcg Tablet) 50 mcg PO DAILY [facility] Last Admin: 06/27/24 08:13 Dose: 50 mcg Documented By: JOSELITO Labs 06/27/24 06:42 06/27/24 06:42 Labs: Laboratory Results - last 24 hr 06/26/24 06/26/24 06/26/24 16:01 16:12 16:26 MCV 82.8 MCH 27.0 MCHC 32.6 RDW 13.2 Plt Count 299 D MPV 10.3 Immature Gran % (Auto) 0.6 H Neut % (Auto) 88.9 H Lymph % (Auto) 4.3 L [place] % (Auto) 3.8 Eos % (Auto) 1.9 Baso % (Auto) 0.5 Lymph # (Auto) 0.7 L [place] # (Auto) 0.7 Eos # (Auto) 0.3 Baso # (Auto) 0.1 Abs Immat Gran (auto) 0.11 H Absolute Neuts (auto) 15.2 H Absolute Nucleated RBC 0.000 Nucleated RBC % (auto) 0.0 Smear Tech's Comments Anion Gap 17 Estim Creat Clear Calc 44.3 Estimated GFR 32 POC Glucose 297 H Random Glucose 339 H Lactic Acid 2.4 H* Lactic Acid F/U @ 2Hr Calcium 8.7 Total Bilirubin 0.6 AST 73 H ALT 64 H Alkaline Phosphatase 145 H Troponin I High Sens < 2.7 Total Protein 8.1 H Albumin 3.4 L Influenza Type A (PCR) NEGATIVE Influenza Type B (PCR) NEGATIVE RSV RNA Qual (PCR) NEGATIVE SARS-CoV-2 RNA (RT-PCR) NEGATIVE 06/26/24 06/26/24 06/27/24 18:29 21:57 06:42 MCV 82.2 MCH 27.5 MCHC 33.5 RDW 13.2 Plt Count TNP MPV Not Reportable Immature Gran % (Auto) 0.9 H Neut % (Auto) 81.1 H Lymph % (Auto) 6.7 L [place] % (Auto) 6.9 Eos % (Auto) 3.9 Baso % (Auto) 0.5 Lymph # (Auto) 0.9 L [place] # (Auto) 1.0 Eos # (Auto) 0.5 H Baso # (Auto) 0.1 Abs Immat Gran (auto) 0.12 H Absolute Neuts (auto) 11.3 H Absolute Nucleated RBC 0.000 Nucleated RBC % (auto) 0.0 Smear Tech's Comments VERIFIED Anion Gap 14 Estim Creat Clear Calc 51.1 Estimated GFR 37 POC Glucose 246 H Random Glucose 187 H Lactic Acid Lactic Acid F/U @ 2Hr 1.2 Calcium 7.6 L D Total Bilirubin AST ALT Alkaline Phosphatase Troponin I High Sens Total Protein Albumin Influenza Type A (PCR) Influenza Type B (PCR) RSV RNA Qual (PCR) SARS-CoV-2 RNA (RT-PCR) 06/27/24 06/27/24 07:17 13:30 MCV MCH MCHC RDW Plt Count MPV Immature Gran % (Auto) Neut % (Auto) Lymph % (Auto) [place] % (Auto) Eos % (Auto) Baso % (Auto) Lymph # (Auto) [place] # (Auto) Eos # (Auto) Baso # (Auto) Abs Immat Gran (auto) Absolute Neuts (auto) Absolute Nucleated RBC Nucleated RBC % (auto) Smear Tech's Comments Anion Gap Estim Creat Clear Calc Estimated GFR POC Glucose 171 H 215 H Random Glucose Lactic Acid Lactic Acid F/U @ 2Hr Calcium Total Bilirubin AST ALT Alkaline Phosphatase Troponin I High Sens Total Protein Albumin Influenza Type A (PCR) Influenza Type B (PCR) RSV RNA Qual (PCR) SARS-CoV-2 RNA (RT-PCR) Microbiology Microbiology Results: Microbiology 06/26/24 16:17 Blood Culture - Preliminary Blood - Venous Prelim: GPC Gram Stain only 06/26/24 16:12 Blood Culture - Preliminary Blood - Venous Prelim: GPC Gram Stain only Assessment and Plan (1) Diabetic foot ulcer: Status: Acute Plan 53-year-old Estonian-speaking male with pertinent history of insulin-dependent diabetes mellitus with neuropathy, hypertension, hyperlipidemia, hypothyroidism, mood disorder, gastroesophageal reflux disease, CKD who presents to the emergency department for evaluation of left foot infection. Severe sepsis due to infected diabetic foot ulcer, gangrenous 5th toe and purulent cellulitis Resuscitated with IV crystalloids. Initiating IV vancomycin and Zosyn. foot MRI showing definitive Osteomyelitis Blood culture pending. Consulting General surgery and Wound Care GPC bacteremia continue vancomycin follow final cx JJ and CKD Monitor with crystalloid resuscitation. Avoid nephrotoxins. Insulin-dependent diabetes mellitus with hyperglycemia Initiating basal plus insulin regimen Acute lactic acidosis due to sepsis Elevated transaminases due to sepsis Hypertension Hold home antihypertensives in the setting of sepsis. Resume as appropriate Mood disorder Continue home mood stabilizers Mixed hyperlipidemia On statin and fenofibrate Hypothyroidism On Synthroid DVT prophylaxis: Lovenox Full code Quality Stroke Does the patient have a stroke diagnosis?: No VTE Prior VTE?: No VTE Risk Level:: Medical - moderate - high VTE Device Contraindication: Treatment Not Indicated VTE Drug Contraindication: N/A - Med Ordered
[2024-06-27 14:49] VITALS: BP 148/80; PULSE 91; RESP 20; TEMP 36.7; O2SAT 93
--- NOTE | 2024-06-27 15:20 | PC.NURSE ---
Patient alert and oriented x 3. Patient voiding in urinal. Patient just had another liquid stool. ? if its from the antibiotics. Patient on iv antibiotics for infected wound on left, and right foot. Will notify
--- NOTE | 2024-06-27 15:37 | PC.NURSE ---
Patients oxygen saturation at 88-90 on room air notified Em Downing NP applied 2 liters of oxygen went up to 93%.
[2024-06-27 16:28] LABS: Vancomycin Random 15.6 mcg/mL (15-20)
[2024-06-27 16:47] VITALS: BP 149/66; PULSE 99; RESP 20; TEMP 37.2; O2SAT 95
--- NOTE | 2024-06-27 16:57 | HE.PHANOTE ---
Vanco dose adjustment based on serum creatinine of 1.89 and trough of 15.6, dose increased to 1250 mg q24h. Increased to achieve higher pAUC
[2024-06-27 16:58] LABS: Glucose, Whole Blood 191 mg/dL (60-115)
[2024-06-27] MEDS: Morphine Sulfate 2 MG/ML CARTRIDGE IVPUSH (18:10)
[2024-06-27] MEDS: vancomycin HCL 1,250 MG in 0.9 % Sodium Chloride 250 ML 166.67 MG IV (18:11)
[2024-06-27 19:43] VITALS: BP 133/70; PULSE 95; RESP 20; TEMP 37.1; O2SAT 93
[2024-06-27] MEDS: Enoxaparin Sodium 40 MG/0.4 ML SYRINGE SUBCUT (19:54)
[2024-06-27 20:30] LABS: Glucose, Whole Blood 184 mg/dL (60-115)
[2024-06-28 03:24] VITALS: BP 139/71; PULSE 89; RESP 16; TEMP 37.1; O2SAT 92
[2024-06-28] MEDS: Levothyroxine Sodium 112 MCG TABLET PO (05:15)
[2024-06-28] MEDS: Levothyroxine Sodium 25 MCG TABLET PO (05:16)
[2024-06-28] MEDS: Piperacillin Sodium/Tazobactam 4.5 GM in 0.9 % Sodium Chloride 100 ML IV (05:32)
--- NOTE | 2024-06-28 05:57 | PC.NURSE ---
Addendum entered by Mimi Finnegan RN 06/28/24 06:56: Pt bladder scan for 408ml, MD Araujo notified and one time straight cath ordered. Pt straight cath for 400ml straw color urine. Pt post residual void 0ml. Will continue to monitor. Original Note: Pt hasn't voided sine 22:00. Pt bladder scan for 348ml, pt denies any pain/discomfort. MD Araujo notified of the situation and asked if pt needs to be straight cath. Per stated not until >400cc . This RN will recheck in an hour. Will continue to monitor.
[2024-06-28 07:32] VITALS: BP 115/67; PULSE 78; RESP 18; TEMP 36.9; O2SAT 91
[2024-06-28 07:43] LABS: Glucose, Whole Blood 131 mg/dL (60-115)
--- NOTE | 2024-06-28 08:50 | HO.PM.IMPN ---
Subjective Subjective Date of Service: 06/28/24 Review of Systems Follow up foot wound denied pain very vague about previous amputation surgery Physical Exam Vital Signs: Vital Signs: Last Vital Signs Temp 98.5 F 06/28/24 07:32 Pulse 78 06/28/24 07:32 Resp 18 06/28/24 07:32 BP 115/67 06/28/24 07:32 Pulse Ox 91 L 06/28/24 07:32 O2 Del Method Nasal Cannula 06/28/24 07:32 O2 Flow Rate 3.0 06/28/24 07:32 BMI result Body Mass Index 33.4 Objective Data Active Medications Acetaminophen (Acetaminophen 325 Mg Tablet) 650 mg PO Q6H PRN PRN Reason: Pain, Mild 1-3,fever,headache Bisacodyl (Bisacodyl 10 Mg Supp.Rect) 10 mg [place] DAILY PRN PRN Reason: Constipation Calcium Carbonate (Calcium Carbonate 750 Mg Tab.Chew) 750 mg PO Q4H PRN PRN Reason: Heartburn Ezetimibe (Ezetimibe 10 Mg Tablet) 10 mg PO DAILY [facility] Last Admin: 06/27/24 08:14 Dose: 10 mg Documented By: JOSELITO Enoxaparin Sodium (Enoxaparin Sodium 40 Mg/0.4 Ml Syringe) 40 mg SUBCUT Q24H [facility] Last Admin: 06/27/24 19:54 Dose: 40 mg Documented By: LILIA Escitalopram Oxalate (Escitalopram Oxalate 10 Mg Tablet) 10 mg PO DAILY [facility] Last Admin: 06/27/24 08:13 Dose: 10 mg Documented By: JOSELITO Fenofibrate (Fenofibrate 54 Mg Tablet) 54 mg PO DAILY [facility] Last Admin: 06/27/24 08:14 Dose: 54 mg Documented By: JOSELITO Glucose (Glucose Gel 15 Gm Gel..Gram.) 15 gm PO Q15M PRN; Protocol PRN Reason: per Hypoglycemia Standing Ord. Piperacillin Sod/Tazobactam (Sod 4.5 gm/ Sodium Chloride) 100 mls @ 200 mls/hr IV Q6H [facility] Last Infusion: 06/28/24 06:20 Dose: Infused Documented By: LILIA Dextrose (D10) 250 mls @ 750 mls/hr IV Q15M PRN; Protocol PRN Reason: per Hypoglycemia Standing Ord. Vancomycin HCl 1,250 mg/ (Sodium Chloride) 250 mls @ 166.667 mls/hr IV Q24H [facility] Last Infusion: 06/27/24 19:53 Dose: Infused Documented By: LILIA Insulin Glargine (Insulin Glargine,Hum.Rec.Anlog 100 Unit/Ml 10 Ml Vial) 10 unit SUBCUT DAILY [facility] Last Admin: 06/27/24 08:13 Dose: 10 unit Documented By: JOSELITO Insulin Human Lispro (Insulin Lispro 100 Unit/Ml 3 Ml Vial) 0 unit SUBCUT QIDACHS [facility]; Protocol Last Admin: 06/28/24 08:27 Dose: Not Given Documented By: ALFRED Non-Admin Reason: No Insulin Coverage Levothyroxine Sodium (Levothyroxine Sodium 112 Mcg Tablet) 112 mcg PO DAILY@0600 [facility] Last Admin: 06/28/24 05:15 Dose: 112 mcg Documented By: LILIA Levothyroxine Sodium (Levothyroxine Sodium 25 Mcg Tablet) 25 mcg PO DAILY@0600 [facility] Last Admin: 06/28/24 05:16 Dose: 25 mcg Documented By: LILIA Magnesium Hydroxide (Milk Of Magnesia 30 Ml Oral.Susp) 30 ml PO DAILY PRN PRN Reason: Constipation Magnesium Hydroxide (Milk Of Magnesia 30 Ml Oral.Susp) 30 ml PO DAILY PRN PRN Reason: Constipation Melatonin (Melatonin 3 Mg Tablet) 6 mg PO BEDTIME PRN PRN Reason: Insomnia Ondansetron HCl (Ondansetron Hcl 4 Mg/2 Ml Vial) 4 mg IVPUSH Q8H PRN PRN Reason: Nausea and Vomiting Pharmacy Consult (Consult Rx Vancomycin Dosing) 1 each MISCELLANE DAILY PRN PRN Reason: Consult order Sodium Biphosphate/Sodium Phosphate (Sodium Phosphate,[place]-Dibasic 133 Ml Enema) 118 ml [place] DAILY PRN PRN Reason: Constipation Sodium Chloride (0.9 % Sodium Chloride Flush 3 Ml Syringe) 3 ml IVFLUSH QSHIFT [facility] Last Admin: 06/28/24 00:51 Dose: Not Given Documented By: LILIA Non-Admin Reason: Previously Administered Vitamin D (Cholecalciferol (Vitamin D3) 25 Mcg Tablet) 50 mcg PO DAILY [facility] Last Admin: 06/27/24 08:13 Dose: 50 mcg Documented By: JOSELITO Labs 06/27/24 06:42 06/28/24 10:42 Labs: Laboratory Results - last 24 hr 06/27/24 06/27/24 06/27/24 13:30 16:07 16:52 POC Glucose 215 H 191 H Random Vancomycin 15.6 06/27/24 06/28/24 20:22 07:37 POC Glucose 184 H 131 H Random Vancomycin Microbiology Microbiology Results: Microbiology 06/26/24 16:17 Blood Culture - Preliminary Blood - Venous Prelim: GPC Gram Stain only 06/26/24 16:12 Blood Culture - Preliminary Blood - Venous Prelim: GPC Gram Stain only Assessment and Plan (1) Diabetic foot ulcer: Status: Acute Plan 53-year-old South African-speaking male with pertinent history of insulin-dependent diabetes mellitus with neuropathy, hypertension, hyperlipidemia, hypothyroidism, mood disorder, gastroesophageal reflux disease, CKD who presents to the emergency department for evaluation of left foot infection. Severe sepsis due to infected diabetic foot ulcer, gangrenous 5th toe and purulent cellulitis Resuscitated with IV crystalloids. IV vancomycin and Zosyn initially foot MRI showing definitive Osteomyelitis Consulting General surgery>plan for amputation of 4,5th toe possibly Saturday and debridement Strep agalactiae continue vancomycin follow final cx JJ and CKD 3b Monitor with crystalloid resuscitation. Avoid nephrotoxins. Normocytic anemia Likely secondary to chronic kidney disease No active bleeding Insulin-dependent diabetes mellitus with hyperglycemia Initiating basal plus insulin regimen Acute lactic acidosis due to sepsis Elevated transaminases due to sepsis Hypertension Hold home antihypertensives in the setting of sepsis. Resume as appropriate Mood disorder Continue home mood stabilizers Mixed hyperlipidemia On statin and fenofibrate Hypothyroidism On Synthroid DVT prophylaxis: Lovenox Full code Quality Stroke Does the patient have a stroke diagnosis?: No VTE Prior VTE?: No VTE Risk Level:: Medical - moderate - high VTE Device Contraindication: Treatment Not Indicated VTE Drug Contraindication: N/A - Med Ordered
[2024-06-28] MEDS: 0.9 % Sodium Chloride Flush 3 ML SYRINGE IVFLUSH ×3 (09:05→21:19)
[2024-06-28] MEDS: Cholecalciferol (Vitamin D3) 25 MCG TABLET 50 MCG PO (09:06)
[2024-06-28] MEDS: Insulin Glargine,Hum.rec.anlog 100 UNIT/ML 10 ML VIAL 10 UNIT SUBCUT (09:06)
[2024-06-28] MEDS: Escitalopram Oxalate 10 MG TABLET PO (09:07)
[2024-06-28] MEDS: Fenofibrate 54 MG TABLET PO (09:07)
[2024-06-28] MEDS: Ezetimibe 10 MG TABLET PO (09:07)
--- NOTE | 2024-06-28 09:19 | P.PNGS_ITS ---
Subjective Subjective Date of Service: 06/28/24 Interval history: Patient very sleepy this morning. Physical Exam 2 Vital Signs: Vital Signs: Last Vital Signs Temp 98.5 F 06/28/24 07:32 Pulse 78 06/28/24 07:32 Resp 18 06/28/24 07:32 BP 115/67 06/28/24 07:32 Pulse Ox 91 L 06/28/24 07:32 O2 Del Method Nasal Cannula 06/28/24 07:32 O2 Flow Rate 3.0 06/28/24 07:32 BMI result Body Mass Index 33.4 Const: General: no acute distress and tired appearing Nutritional Appearance: overweight Resp: Effort & Inspection: normal respiratory effort Extrem: Other: Left foot with continued necrotic changes of the 4th and 5th toe, somewhat less erythema noted in the forefoot. Right foot unchanged. Objective Data Active Medications Acetaminophen (Acetaminophen 325 Mg Tablet) 650 mg PO Q6H PRN PRN Reason: Pain, Mild 1-3,fever,headache Bisacodyl (Bisacodyl 10 Mg Supp.Rect) 10 mg [place] DAILY PRN PRN Reason: Constipation Calcium Carbonate (Calcium Carbonate 750 Mg Tab.Chew) 750 mg PO Q4H PRN PRN Reason: Heartburn Ezetimibe (Ezetimibe 10 Mg Tablet) 10 mg PO DAILY [facility] Last Admin: 06/28/24 09:07 Dose: 10 mg Documented By: ALFRED Enoxaparin Sodium (Enoxaparin Sodium 40 Mg/0.4 Ml Syringe) 40 mg SUBCUT Q24H [facility] Last Admin: 06/27/24 19:54 Dose: 40 mg Documented By: LILIA Escitalopram Oxalate (Escitalopram Oxalate 10 Mg Tablet) 10 mg PO DAILY [facility] Last Admin: 06/28/24 09:07 Dose: 10 mg Documented By: ALFRED Fenofibrate (Fenofibrate 54 Mg Tablet) 54 mg PO DAILY [facility] Last Admin: 06/28/24 09:07 Dose: 54 mg Documented By: ALFRED Glucose (Glucose Gel 15 Gm Gel..Gram.) 15 gm PO Q15M PRN; Protocol PRN Reason: per Hypoglycemia Standing Ord. Dextrose (D10) 250 mls @ 750 mls/hr IV Q15M PRN; Protocol PRN Reason: per Hypoglycemia Standing Ord. Vancomycin HCl 1,250 mg/ (Sodium Chloride) 250 mls @ 166.667 mls/hr IV Q24H [facility] Last Infusion: 06/27/24 19:53 Dose: Infused Documented By: LILIA Insulin Glargine (Insulin Glargine,Hum.Rec.Anlog 100 Unit/Ml 10 Ml Vial) 10 unit SUBCUT DAILY [facility] Last Admin: 06/28/24 09:06 Dose: 10 unit Documented By: ALFRED Insulin Human Lispro (Insulin Lispro 100 Unit/Ml 3 Ml Vial) 0 unit SUBCUT QIDACHS [facility]PL[facility]; Protocol Last Admin: 06/28/24 08:27 Dose: Not Given Documented By: ALFRED Non-Admin Reason: No Insulin Coverage Levothyroxine Sodium (Levothyroxine Sodium 112 Mcg Tablet) 112 mcg PO DAILY@0600 [facility] Last Admin: 06/28/24 05:15 Dose: 112 mcg Documented By: LILIA Levothyroxine Sodium (Levothyroxine Sodium 25 Mcg Tablet) 25 mcg PO DAILY@0600 [facility] Last Admin: 06/28/24 05:16 Dose: 25 mcg Documented By: LILIA Magnesium Hydroxide (Milk Of Magnesia 30 Ml Oral.Susp) 30 ml PO DAILY PRN PRN Reason: Constipation Magnesium Hydroxide (Milk Of Magnesia 30 Ml Oral.Susp) 30 ml PO DAILY PRN PRN Reason: Constipation Melatonin (Melatonin 3 Mg Tablet) 6 mg PO BEDTIME PRN PRN Reason: Insomnia Ondansetron HCl (Ondansetron Hcl 4 Mg/2 Ml Vial) 4 mg IVPUSH Q8H PRN PRN Reason: Nausea and Vomiting Pharmacy Consult (Consult Rx Vancomycin Dosing) 1 each MISCELLANE DAILY PRN PRN Reason: Consult order Sodium Biphosphate/Sodium Phosphate (Sodium Phosphate,[place]-Dibasic 133 Ml Enema) 118 ml [place] DAILY PRN PRN Reason: Constipation Sodium Chloride (0.9 % Sodium Chloride Flush 3 Ml Syringe) 3 ml IVFLUSH QSHIFT [facility]PLACED [facility] Last Admin: 06/28/24 09:05 Dose: 3 ml Documented By: ALFRED Vitamin D (Cholecalciferol (Vitamin D3) 25 Mcg Tablet) 50 mcg PO DAILY [facility] Last Admin: 06/28/24 09:06 Dose: 50 mcg Documented By: ALFRED Labs 06/27/24 06:42 06/27/24 06:42 Labs: Laboratory Results - last 24 hr 06/27/24 06/27/24 06/27/24 13:30 16:07 16:52 POC Glucose 215 H 191 H Random Vancomycin 15.6 06/27/24 06/28/24 20:22 07:37 POC Glucose 184 H 131 H Random Vancomycin Microbiology Microbiology Results: Microbiology 06/26/24 16:17 Blood Culture - Preliminary Blood - Venous Prelim: GPC Gram Stain only 06/26/24 16:12 Blood Culture - Preliminary Blood - Venous Prelim: GPC Gram Stain only Procedures Date of Service Date of Service: 06/28/24 Progress Note: A&P Assessment and plan (1) Diabetic foot ulcer: Status: Acute Assessment and Plan: MRI reviewed which revealed evidence of osteomyelitis in the 4th and 5th toe with overlying cellulitis. Patient has gangrenous changes to the 4th toe as well on examination. Patient will need amputation of a least the 4th and 5th toe including the metatarsal heads of the 4th and 5th toe. He will also need debridement of the right transmetatarsal amputation with possible wound VAC placement. I have tentatively scheduled him for surgery on Saturday if medically cleared. Continue IV antibiotics. Time Spent With Patient Time: Total time managing care of this patient today ____ minutes. Quality Stroke Does the patient have a stroke diagnosis?: No VTE Prior VTE?: No VTE Risk Level:: Medical - moderate - high VTE Device Contraindication: Treatment Not Indicated VTE Drug Contraindication: N/A - Med Ordered
[2024-06-28 11:02] LABS: Creatinine Clr Calc Pharmacy 47.6; Estimated Glomerular Filt Rate 34
[2024-06-28 11:39] LABS: Glucose, Whole Blood 180 mg/dL (60-115)
[2024-06-28] MEDS: Insulin Lispro 100 UNIT/ML 3 ML VIAL SUBCUT ×3 (12:01→21:18)
--- NOTE | 2024-06-28 13:36 | MHC.CM.PN ---
CM met with patient at bedside, spanish interpreter/translator assisting. Patient reports he is LTC @ [facility] and has lived there for 2 years. Previously in a [facility], but unable to care for himself. Primarily uses w/c. PCP Isai Reaves MD HCP on file and verified. DP: Return to [facility] via BLS. CM will continue to follow.
[2024-06-28 15:49] VITALS: BP 117/61; PULSE 81; RESP 16; TEMP 36.4; O2SAT 91
[2024-06-28 16:23] LABS: Vancomycin Random 14.7 mcg/mL (15-20)
--- NOTE | 2024-06-28 16:45 | HE.PHANOTE ---
RE:VANCO DOSING Trough came back as 14.7 and renal function has worsen. Dose is kept at 1250 mg q24h (predicted zjk=140 mg/L trough=14.9), next trough is scheduled for 06/29/24 @1600.
[2024-06-28 16:49] LABS: Glucose, Whole Blood 280 mg/dL (60-115)
[2024-06-28] MEDS: vancomycin HCL 1,250 MG in 0.9 % Sodium Chloride 250 ML 166.66 MG IV (17:29)
[2024-06-28 19:33] VITALS: BP 158/74; PULSE 90; RESP 20; TEMP 36.8; O2SAT 91
[2024-06-28] MEDS: Enoxaparin Sodium 40 MG/0.4 ML SYRINGE SUBCUT (20:07)
[2024-06-28 20:57] LABS: Glucose, Whole Blood 233 mg/dL (60-115)
--- NOTE | 2024-06-28 23:18 | PC.NURSE ---
1924- patient awake and accepted the Lokelma powder mixed in ice water, took it slow and tolerated well. Potassium value noted at 5.5. pt also scheduled for potassium at 2100, held as K+ 5.5 and hospitalist made aware. Patient incontinent of small amount of urine with a large loose stool at 2244, skin care provided, repositioned, pillows to off set weight, and air loss mattress in use. Two foam dressings at right hip, barrier cream to buttocks and coccyx. #22 ultra sound guided iv had been inserted by COMPUTER OPERATIONS MANAGER previously and IVF of D5LR as per AUG. Reported off to incoming RN at 2300
[2024-06-29 03:35] VITALS: BP 144/70; PULSE 92; RESP 18; TEMP 37.6; O2SAT 91
[2024-06-29] MEDS: Levothyroxine Sodium 25 MCG TABLET PO (06:13)
[2024-06-29] MEDS: Levothyroxine Sodium 112 MCG TABLET PO (06:13)
[2024-06-29 06:15] VITALS: TEMP 36.6
[2024-06-29 07:36] VITALS: BP 140/69; PULSE 81; RESP 18; TEMP 37; O2SAT 91
[2024-06-29 07:47] LABS: Glucose, Whole Blood 179 mg/dL (60-115)
[2024-06-29] MEDS: Insulin Lispro 100 UNIT/ML 3 ML VIAL SUBCUT ×4 (08:25→21:00)
[2024-06-29] MEDS: Insulin Glargine,Hum.rec.anlog 100 UNIT/ML 10 ML VIAL 10 UNIT SUBCUT (08:25)
[2024-06-29] MEDS: Fenofibrate 54 MG TABLET PO (08:26)
[2024-06-29] MEDS: 0.9 % Sodium Chloride Flush 3 ML SYRINGE IVFLUSH ×3 (08:26→19:58)
[2024-06-29] MEDS: Escitalopram Oxalate 10 MG TABLET PO (08:26)
[2024-06-29] MEDS: Ezetimibe 10 MG TABLET PO (08:26)
[2024-06-29] MEDS: Cholecalciferol (Vitamin D3) 25 MCG TABLET 50 MCG PO (08:26)
[2024-06-29 08:34] LABS: Hematocrit 23.5 % (42.0-52.0); Hemoglobin 7.8 g/dl (14.0-18.0); Mean Corpuscular HGB Conc 33.2 g/dl (31.0-36.0); Mean Corpuscular Hemoglobin 27.4 pg (27.0-33.0); Mean Corpuscular Volume 82.5 fL (80.0-98.0); Mean Platelet Volume 9.5 fL (9.4-12.4); Platelet Count 358 X10*3/uL (160-400); Red Blood Count 2.85 X10*6/uL (4.60-5.80); Red Cell Distribution Width 13.5 % (11.0-16.0); White Blood Count 12.8 X10*3/uL (4.8-10.8)
--- NOTE | 2024-06-29 08:45 | P.PNIM_ITS ---
Subjective Subjective Date of Service: 06/29/24 Review of Systems Follow up foot wound denied pain very vague about previous amputation surgery Physical Exam 2 Vital Signs: Vital Signs: Last Vital Signs Temp 98.6 F 06/29/24 07:36 Pulse 81 06/29/24 07:36 Resp 18 06/29/24 07:36 BP 140/69 H 06/29/24 07:36 Pulse Ox 91 L 06/29/24 07:36 O2 Del Method Nasal Cannula 06/29/24 07:36 O2 Flow Rate 3.0 06/29/24 07:36 BMI result Body Mass Index 33.4 Appearing in no acute distress lung sounds are clear to auscultation heart regular rate rhythm, clear S1, S2 positive bowel sounds, abdomen is soft, nontender neuro patient is alert x3, no focal deficits Objective Data Active Medications Acetaminophen (Acetaminophen 325 Mg Tablet) 650 mg PO Q6H PRN PRN Reason: Pain, Mild 1-3,fever,headache Bisacodyl (Bisacodyl 10 Mg Supp.Rect) 10 mg PA DAILY PRN PRN Reason: Constipation Calcium Carbonate (Calcium Carbonate 750 Mg Tab.Chew) 750 mg PO Q4H PRN PRN Reason: Heartburn Ezetimibe (Ezetimibe 10 Mg Tablet) 10 mg PO DAILY [facility] Last Admin: 06/29/24 08:26 Dose: 10 mg Documented By: DALIA Enoxaparin Sodium (Enoxaparin Sodium 40 Mg/0.4 Ml Syringe) 40 mg SUBCUT Q24H [facility] Last Admin: 06/28/24 20:07 Dose: 40 mg Documented By: NAHID Escitalopram Oxalate (Escitalopram Oxalate 10 Mg Tablet) 10 mg PO DAILY [facility] Last Admin: 06/29/24 08:26 Dose: 10 mg Documented By: DALIA Fenofibrate (Fenofibrate 54 Mg Tablet) 54 mg PO DAILY [facility] Last Admin: 06/29/24 08:26 Dose: 54 mg Documented By: DALIA Glucose (Glucose Gel 15 Gm Gel..Gram.) 15 gm PO Q15M PRN; Protocol PRN Reason: per Hypoglycemia Standing Ord. Dextrose (D10) 250 mls @ 750 mls/hr IV Q15M PRN; Protocol PRN Reason: per Hypoglycemia Standing Ord. Vancomycin HCl 1,250 mg/ (Sodium Chloride) 250 mls @ 166.667 mls/hr IV Q24H [facility] Last Infusion: 06/28/24 19:10 Dose: Infused Documented By: NAHID Insulin Glargine (Insulin Glargine,Hum.Rec.Anlog 100 Unit/Ml 10 Ml Vial) 10 unit SUBCUT DAILY [facility] Last Admin: 06/29/24 08:25 Dose: 10 unit Documented By: DALIA Insulin Human Lispro (Insulin Lispro 100 Unit/Ml 3 Ml Vial) 0 unit SUBCUT QIDACHS [facility]; Protocol Last Admin: 06/29/24 08:25 Dose: 2 unit Documented By: DALIA Levothyroxine Sodium (Levothyroxine Sodium 112 Mcg Tablet) 112 mcg PO DAILY@0600 [facility] Last Admin: 06/29/24 06:13 Dose: 112 mcg Documented By: NAHID Levothyroxine Sodium (Levothyroxine Sodium 25 Mcg Tablet) 25 mcg PO DAILY@0600 [facility] Last Admin: 06/29/24 06:13 Dose: 25 mcg Documented By: NAHID Magnesium Hydroxide (Milk Of Magnesia 30 Ml Oral.Susp) 30 ml PO DAILY PRN PRN Reason: Constipation Magnesium Hydroxide (Milk Of Magnesia 30 Ml Oral.Susp) 30 ml PO DAILY PRN PRN Reason: Constipation Melatonin (Melatonin 3 Mg Tablet) 6 mg PO BEDTIME PRN PRN Reason: Insomnia Ondansetron HCl (Ondansetron Hcl 4 Mg/2 Ml Vial) 4 mg IVPUSH Q8H PRN PRN Reason: Nausea and Vomiting Pharmacy Consult (Consult Rx Vancomycin Dosing) 1 each MISCELLANE DAILY PRN PRN Reason: Consult order Sodium Biphosphate/Sodium Phosphate (Sodium Phosphate,[place]-Dibasic 133 Ml Enema) 118 ml PA DAILY PRN PRN Reason: Constipation Sodium Chloride (0.9 % Sodium Chloride Flush 3 Ml Syringe) 3 ml IVFLUSH QSHIFT [facility] Last Admin: 06/29/24 08:26 Dose: 3 ml Documented By: DALIA Vitamin D (Cholecalciferol (Vitamin D3) 25 Mcg Tablet) 50 mcg PO DAILY [facility] Last Admin: 06/29/24 08:26 Dose: 50 mcg Documented By: DALIA Labs 06/29/24 08:20 06/28/24 10:42 Labs: Laboratory Results - last 24 hr 06/28/24 06/28/2406/28/25 10:42 11:35 16:00 MCV MCH MCHC RDW Plt Count MPV Absolute Nucleated RBC Nucleated RBC % (auto) Estim Creat Clear Calc 47.6 Estimated GFR 34 POC Glucose 180 H Random Vancomycin 14.7 L 06/28/24 06/28/24 06/29/24 16:41 20:50 07:40 MCV MCH MCHC RDW Plt Count MPV Absolute Nucleated RBC Nucleated RBC % (auto) Estim Creat Clear Calc Estimated GFR POC Glucose 280 H 233 H 179 H Random Vancomycin 06/29/24 08:20 MCV 82.5 MCH 27.4 MCHC 33.2 RDW 13.5 Plt Count 358 MPV 9.5 Absolute Nucleated RBC 0.000 Nucleated RBC % (auto) 0.0 Estim Creat Clear Calc Estimated GFR POC Glucose Random Vancomycin Microbiology Microbiology Results: Microbiology 06/26/24 16:17 Blood Culture - Final Blood - Venous Strep agalactiae (Grp B) 06/26/24 16:12 Blood Culture - Final Blood - Venous Strep agalactiae (Grp B) Assessment and Plan (1) Diabetic foot ulcer: Status: Acute Plan 53-year-old Greek-speaking male with pertinent history of insulin-dependent diabetes mellitus with neuropathy, hypertension, hyperlipidemia, hypothyroidism, mood disorder, gastroesophageal reflux disease, CKD who presents to the emergency department for evaluation of left foot infection. Severe sepsis due to infected diabetic foot ulcer, gangrenous 5th toe and purulent cellulitis Resuscitated with IV crystalloids. IV vancomycin and Zosyn initially foot MRI showing definitive Osteomyelitis Consulting General surgery>plan for amputation of 4,5th toe possibly Saturday and debridement Strep agalactiae continue vancomycin follow final cx JJ and CKD 3b Monitor with crystalloid resuscitation. Avoid nephrotoxins. Normocytic anemia Likely secondary to chronic kidney disease No active bleeding Insulin-dependent diabetes mellitus with hyperglycemia Initiating basal plus insulin regimen Acute lactic acidosis due to sepsis Elevated transaminases due to sepsis Hypertension Hold home antihypertensives in the setting of sepsis. Resume as appropriate Mood disorder Continue home mood stabilizers Mixed hyperlipidemia On statin and fenofibrate Hypothyroidism On Synthroid DVT prophylaxis: Lovenox Full code Quality Stroke Does the patient have a stroke diagnosis?: No VTE Prior VTE?: No VTE Risk Level:: Medical - moderate - high VTE Device Contraindication: Treatment Not Indicated VTE Drug Contraindication: N/A - Med Ordered
[2024-06-29 09:17] LABS: Anion Gap 12 (12-20); Blood Urea Nitrogen 29 mg/dL (9-16); Calcium 8.1 mg/dL (8.4-10.2); Carbon Dioxide 16 mmol/L (22-29); Chloride 112 mmol/L (96-108); Creatinine Clr Calc Pharmacy 60.8; Creatinine Clr Calc Pharmacy 61.2; Estimated Glomerular Filt Rate 46; Glucose Random 183 mg/dL (60-115); Iron 20 mcg/dL (45-160); Percent Iron Saturation 14 % (15-50); Potassium 3.9 mmol/L (3.3-5.1); Sodium 136 mmol/L (135-145); Total Iron Binding Capacity 145 mcg/dL (228-428); Unsaturated Iron Binding 125 ug/dL
[2024-06-29 09:23] LABS: B Type Natriuretic Peptide 264 pg/mL (<100)
[2024-06-29 11:52] LABS: Glucose, Whole Blood 246 mg/dL (60-115)
--- NOTE | 2024-06-29 12:24 | P.CDIM_ITS ---
PROVIDER RESPONSE TEXT: To clarify, the appropriate diagnosis supported by the clinical indicators: Subacute osteomyelitis QUERY TEXT: PHYSICIAN'S DOCUMENTATION REQUEST Date of Query: 06/29/2024 08:15 AM EST Patient Name: Mehul Beltran Admit Date: 06/27/2024 Dear Em Downing JEWELRY DESIGNER, A review of the medical record indicates additional documentation may be needed. Please review below and update the documentation accordingly. Clinical Indicators: Surgery progress note 06/28 - MRI reviewed which revealed evidence of osteomyelitis in the 4th and 5th toe with overlying cellulitis. Progress note 06/28 - Severe sepsis due to infected diabetic foot ulcer, gangrenous 5th toe and purulen t cellulitis. MRI showing definitive Osteomyelitis. IV Vancomycin and Zosyn Based on the above, please clarify in the Progress Notes further specificity regarding the acuity of the noted Osteomyelitis. Acute osteomyelitis Subacute osteomyelitis Chronic osteomyelitis Chronic multifocal osteomyelitis Other (explain) Clinically unable to determine (explain) Thank you, Elizabeth Perdue, CCS, CDIS Use of terms such as suspected, likely, concern for, or probable (associated with a specific diagnosi s that is being evaluated, monitored, or treated as if it exists) are acceptable and can be coded in the inpatient se tting, when documented at the time of discharge. Please use your independent medical judgment in providing your response. THIS QUERY IS PART OF THE PERMANENT MEDICAL RECORD
--- NOTE | 2024-06-29 13:00 | CA_ITS ---
Transthoracic Echocardiogram Patient (Last, First, Middle): Mehul Beltran, Gender: Male Date of : 1970 Age: 53 Procedure Date: 06/29/2024 Procedure Type: Transthoracic Echocardiogram Location: S3E Height: 172.72 cm Weight: 99.79 kg BSA: 2.13 m2 Heart Rate: 85 bpm BP: 140 / 69 mmHg Adult Secondary Education Instructor: CHERYLE Referring MD: Em Downing NP Symptoms: ? CHF Study Quality: Fair w/Contrast ECG Rhythm: Sinus Conclusions: - The left ventricular systolic function is hyperdynamic. The visually estimated ejection fraction is >70%. - No obvious valvular pathology seen on this study. Findings Procedure Information Contrast agent, definity, is being given per protocol without apparent complications. Left Ventricle Normal left ventricular cavity size. There is mildly increased left ventricular wall thickness. The left ventricular systolic function is hyperdynamic. The visually estimated ejection fraction is >70%. There is no evidence of regional wall motion abnormalities. Diastolic function is normal for age. Right Ventricle Normal right ventricular cavity size and systolic function. Atria Both atria are normal in size. Aortic Valve There is a normal trileaflet aortic valve. There is mild calcification of the aortic valve. There is no aortic valve stenosis. There is no aortic valve regurgitation. Mitral Valve The mitral valve appears normal. There is no mitral valve regurgitation. There is no mitral valve stenosis. Pulmonic Valve The pulmonic valve is likely normal. Tricuspid Valve There is trace tricuspid valve regurgitation. Tricuspid regurgitation envelope is inadequate for calculation of right ventricular systolic pressure. Great Vessels The asc aorta is normal in size. Venous The inferior vena cava is mildly dilated and collapses greater than 50% with inspiration. Pericardium/Pleural There is no evidence of pericardial effusion. Prior Study Comparison No significant change compared to prior study dated: 09/07/2022. Recommendations, Care & Conclusions No obvious valvular pathology seen on this study. Measurements 2D Linear Measurements IVSd: 1.08 0.6-0.9/0.6-1.0 cm LVIDd: 4.71 3.9-5.3/4.2-5.9 cm LVIDd Index: 2.21 2.4-3.2/2.2-3.1 cm/m2 LVIDs: 2.91 2.0-3.6 cm LVPWd: 1.15 0.7-1.1 cm LA Diam: 3.30 2.7-3.8/3.0-4.0 cm LAIDs Index: 1.55 1.5-2.3 cm/m2 LV Mass: 238.96 67-162/88-224 g LV Mass Index: 112.19 43-95/49-115 g/m2 LVOT Diam: 2.00 3.0+(-)1.3 cm 2D Systolic Function EF 4C: 71.30 >55% EF 2C: 77.00 >55% EF BiP: 73.90 >55% Mitral Valve MV Pk E: 1.59 MV PK A: 1.24 MV Decel Time: 129.00 E/A: 1.30 E'Lateral: 10.30 E'Medial: 7.94 E/E' Med: 20.00 E/E' Lat: 15.40 PHT: 38.00 MVA PHT: 5.79 Decel [place]: 12.32 Aortic Valve AoV Pk Dhaval: 1.54 AoV Mn Dhaval: 1.09 AoV VTI: 0.32 AoV Pk Grad: 9.00 Aov Mn Grad: 5.00 BARRY Cont.VTI: 2.40 LVOT LVOT Pk Dhaval: 1.16 LVOT Mn Dhaval: 0.83 LVOT VTI: 0.24 LVOT Pk Grad: 5.00 LVOT Mn Grad: 3.00 LVOT Diam: 2.00 LVOT Area: 3.14 Diastolic Function MV Pk E: 1.59 MV Pk A: 1.24 E/A: 1.30 E'Medial: 7.94 E/E' Med: 20.00 E' Laterial: 10.30 E/E' Lat: 15.40 Right Ventricle TAPSE (mm): 23.50 TVS' Dhaval: 16.60 Tricuspid Valve RA Press: 8.00 Great Vessels Aorta Sinus of Valsalva: 3.82 2.0-3.[address] [place]: 3.29 1.7-3.4 cm Ao Asc: 3.60 2.1-3.4 cm Updated in Other Vendor System with Status of Final Hansel Batres MD electronically signed on 06/29/2024 4:23:17 PM with status of Final
--- NOTE | 2024-06-29 14:26 | PM.PNGS ---
Subjective Subjective Date of Service: 06/29/24 Interval history: Patient is denying Left foot pain at this time. Physical Exam Vital Signs: Vital Signs: Last Vital Signs Temp 98.6 F 06/29/24 07:36 Pulse 81 06/29/24 07:36 Resp 18 06/29/24 07:36 BP 140/69 H 06/29/24 07:36 Pulse Ox 91 L 06/29/24 07:36 O2 Del Method Nasal Cannula 06/29/24 07:36 O2 Flow Rate 3.0 06/29/24 07:36 BMI result Body Mass Index 33.4 Const: General: comfortable Nutritional Appearance: well nourished Orientation/consciousness: patient oriented x3 Resp: Effort & Inspection: normal respiratory effort Neuro: General: patient oriented x3 Extrem: Other: Gangrenous changes of the 5th toe as well as obvious infection of the 4th toe extending into the plantar surface as well as ventral surface. Decreased erythema noted overall. No tenderness to palpation. Objective Data Active Medications Acetaminophen (Acetaminophen 325 Mg Tablet) 650 mg PO Q6H PRN PRN Reason: Pain, Mild 1-3,fever,headache Bisacodyl (Bisacodyl 10 Mg Supp.Rect) 10 mg HI DAILY PRN PRN Reason: Constipation Calcium Carbonate (Calcium Carbonate 750 Mg Tab.Chew) 750 mg PO Q4H PRN PRN Reason: Heartburn Ezetimibe (Ezetimibe 10 Mg Tablet) 10 mg PO DAILY [facility] Last Admin: 06/29/24 08:26 Dose: 10 mg Documented By: DALIA Enoxaparin Sodium (Enoxaparin Sodium 40 Mg/0.4 Ml Syringe) 40 mg SUBCUT Q24H [facility] Last Admin: 06/28/24 20:07 Dose: 40 mg Documented By: NAHID Escitalopram Oxalate (Escitalopram Oxalate 10 Mg Tablet) 10 mg PO DAILY [facility] Last Admin: 06/29/24 08:26 Dose: 10 mg Documented By: DALIA Fenofibrate (Fenofibrate 54 Mg Tablet) 54 mg PO DAILY [facility] Last Admin: 06/29/24 08:26 Dose: 54 mg Documented By: DALIA Glucose (Glucose Gel 15 Gm Gel..Gram.) 15 gm PO Q15M PRN; Protocol PRN Reason: per Hypoglycemia Standing Ord. Dextrose (D10) 250 mls @ 750 mls/hr IV Q15M PRN; Protocol PRN Reason: per Hypoglycemia Standing Ord. Vancomycin HCl 1,250 mg/ (Sodium Chloride) 250 mls @ 166.667 mls/hr IV Q24H [facility] Last Infusion: 06/28/24 19:10 Dose: Infused Documented By: NAHID Insulin Glargine (Insulin Glargine,Hum.Rec.Anlog 100 Unit/Ml 10 Ml Vial) 10 unit SUBCUT DAILY [facility] Last Admin: 06/29/24 08:25 Dose: 10 unit Documented By: DALIA Insulin Human Lispro (Insulin Lispro 100 Unit/Ml 3 Ml Vial) 0 unit SUBCUT QIDACHS [facility]; Protocol Last Admin: 06/29/24 11:59 Dose: 4 unit Documented By: DALIA Levothyroxine Sodium (Levothyroxine Sodium 112 Mcg Tablet) 112 mcg PO DAILY@0600 [facility] Last Admin: 06/29/24 06:13 Dose: 112 mcg Documented By: NAHID Levothyroxine Sodium (Levothyroxine Sodium 25 Mcg Tablet) 25 mcg PO DAILY@0600 [facility] Last Admin: 06/29/24 06:13 Dose: 25 mcg Documented By: NAHID Magnesium Hydroxide (Milk Of Magnesia 30 Ml Oral.Susp) 30 ml PO DAILY PRN PRN Reason: Constipation Magnesium Hydroxide (Milk Of Magnesia 30 Ml Oral.Susp) 30 ml PO DAILY PRN PRN Reason: Constipation Melatonin (Melatonin 3 Mg Tablet) 6 mg PO BEDTIME PRN PRN Reason: Insomnia Ondansetron HCl (Ondansetron Hcl 4 Mg/2 Ml Vial) 4 mg IVPUSH Q8H PRN PRN Reason: Nausea and Vomiting Pharmacy Consult (Consult Rx Vancomycin Dosing) 1 each MISCELLANE DAILY PRN PRN Reason: Consult order Sodium Biphosphate/Sodium Phosphate (Sodium Phosphate,[place]-Dibasic 133 Ml Enema) 118 ml HI DAILY PRN PRN Reason: Constipation Sodium Chloride (0.9 % Sodium Chloride Flush 3 Ml Syringe) 3 ml IVFLUSH QSHIFT [facility] Last Admin: 06/29/24 08:26 Dose: 3 ml Documented By: DALIA Vitamin D (Cholecalciferol (Vitamin D3) 25 Mcg Tablet) 50 mcg PO DAILY [facility] Last Admin: 06/29/24 08:26 Dose: 50 mcg Documented By: DALIA Labs 06/29/24 08:20 06/29/24 08:20 Labs: Laboratory Results - last 24 hr 06/28/24 06/28/24 06/28/24 16:00 16:41 20:50 MCV MCH MCHC RDW Plt Count MPV Absolute Nucleated RBC Nucleated RBC % (auto) Anion Gap Estim Creat Clear Calc Estimated GFR POC Glucose 280 H 233 H Random Glucose Calcium Iron TIBC % Saturation Unsat Iron Binding B-Natriuretic Peptide Random Vancomycin 14.7 L 06/29/24 06/29/24 06/29/24 07:40 08:20 08:20 MCV 82.5 MCH 27.4 MCHC 33.2 RDW 13.5 Plt Count 358 MPV 9.5 Absolute Nucleated RBC 0.000 Nucleated RBC % (auto) 0.0 Anion Gap 12 Estim Creat Clear Calc 61.2 60.8 Estimated GFR 46 POC Glucose 179 H Random Glucose Calcium Iron TIBC % Saturation Unsat Iron Binding B-Natriuretic Peptide Random Vancomycin 06/29/24 06/29/24 08:20 11:46 MCV MCH MCHC RDW Plt Count MPV Absolute Nucleated RBC Nucleated RBC % (auto) Anion Gap Estim Creat Clear Calc Estimated GFR 46 POC Glucose 246 H Random Glucose 183 H Calcium 8.1 L D Iron 20 L TIBC 145 L % Saturation 14 L Unsat Iron Binding 125 B-Natriuretic Peptide 264 H Random Vancomycin Microbiology Microbiology Results: Microbiology 06/26/24 16:17 Blood Culture - Final Blood - Venous Strep agalactiae (Grp B) 06/26/24 16:12 Blood Culture - Final Blood - Venous Strep agalactiae (Grp B) Procedures Date of Service Date of Service: 06/29/24 Progress Note: A&P Assessment and plan (1) Diabetic foot ulcer: Status: Acute Plan 53-year-old male patient presenting with prior history of diabetes mellitus type 2, found to have osteomyelitis of the 4th and 5th toe by MRI and gangrenous changes to the skin of the 5th toe. I reviewed the findings in detail with the patient with the assistance of a medical secretary and recommended amputation of the 4th and 5th toes left foot as well as debridement of the open wound of the right foot status post transmetatarsal amputation. After discussion of the procedure, risks, and alternatives, he consents to the surgery. He has been scheduled for surgery tomorrow in the OR. Time Spent With Patient Time: Total time managing care of this patient today ____ minutes. Quality Stroke Does the patient have a stroke diagnosis?: No VTE Prior VTE?: No VTE Risk Level:: Medical - moderate - high VTE Device Contraindication: Treatment Not Indicated VTE Drug Contraindication: N/A - Med Ordered
[2024-06-29 15:18] VITALS: BP 151/71; PULSE 88; RESP 16; TEMP 36.6; O2SAT 90
[2024-06-29 16:15] LABS: Glucose, Whole Blood 262 mg/dL (60-115)
--- NOTE | 2024-06-29 16:51 | HO.WOUND ---
Wound Consult: Initial 53yr old?[place] [facility] [place] - See progress notes and H&P for detailed history.? Wound consult placed for Left foot and right foot.? Chart review reveals patient to OR tomorrow with Dr. Dempsey. Will defer topical treatments to General surgery after procedure. Patient agreeable to assessment and photo documentation.? Right Plantar foot Etiology: ?Diabetic Wound ?Present on Admission Wound Bed: marbled wound bed with yellow slough and pink red moist tissue full thickness tissue loss Drainage / Odor: yelow osman drainage mild odor noted - moderate amount Edges: ? epibole and macerated Alesia woundmoist red pink erythema dry callused tissue - No Induration, Fluctuance noted Pain: denies Goals of Treatment: ? Durafiber AG for moisture management and antimicrobial properties Left Foot Etiology: ?Diabetic Wound ?Present on Admission Wound Bed: Necotic and slough noted Drainage / Odor: large amount of foul smelling drainage noted Edges: unattached and macerated Alesia wound: Moist macerated tissue, erythema and swelling noted Pain: denies Goals of Treatment: ? Durafiber AG for moisture management and antimicrobial properties - defer to General surgery for debridement and treatment Recommendations: 1. Provide adequate and supplemental nutrition.? 2. When applicable maintain blood glucose levels per Providers order. 3. Left Foot - Defer to General Surgery Team. 4. Right foot - Elevate lower legs on pillows throughout the day. Cleanse with NS pay dry. Apply skin prep to periwound allow to dry. Apply Durafiber AG to wound bed cover with dry gauze, ABD pad and gauze wrap. Change every other day. Re-consult wound care Nurse for wound deterioration or wound changes.
--- NOTE | 2024-06-29 17:52 | HE.PHANOTE ---
Re: [place] Renal function is improving. Trough returned at 13.0. Dose increased to 1500mg q24h, with predicted AUC 481, predicted trough 13.2. Next trough 06/30 @ 1600.
[2024-06-29 17:58] LABS: Glucose Random 262 mg/dL (60-115); Lactate Dehydrogenase 228 U/L (118-273); Total Protein 7.2 g/dL (6.5-8.0)
[2024-06-29] MEDS: vancomycin HCL 1,500 MG in 0.9 % Sodium Chloride 500 ML 333.33 MG IV (18:09)
[2024-06-29 19:07] VITALS: BP 168/74; PULSE 98; RESP 16; TEMP 36.7; O2SAT 92
[2024-06-29] MEDS: Enoxaparin Sodium 40 MG/0.4 ML SYRINGE SUBCUT (19:59)
[2024-06-29 20:36] LABS: Glucose, Whole Blood 225 mg/dL (60-115)
[2024-06-30] VITALS (10 sets, daily range): BP systolic 131–164; BP diastolic 62–81; PULSE 71–86; RESP 16–19; TEMP 35.9–36.6; O2SAT 92–95
[2024-06-30] MEDS: Levothyroxine Sodium 112 MCG TABLET PO (05:52)
[2024-06-30] MEDS: Levothyroxine Sodium 25 MCG TABLET PO (05:52)
[2024-06-30 07:02] LABS: Hematocrit 22.5 % (42.0-52.0); Hemoglobin 7.1 g/dl (14.0-18.0); Mean Corpuscular HGB Conc 31.6 g/dl (31.0-36.0); Mean Corpuscular Hemoglobin 26.7 pg (27.0-33.0); Mean Corpuscular Volume 84.6 fL (80.0-98.0); Mean Platelet Volume 9.7 fL (9.4-12.4); Platelet Count 343 X10*3/uL (160-400); Red Blood Count 2.66 X10*6/uL (4.60-5.80); Red Cell Distribution Width 13.6 % (11.0-16.0); White Blood Count 11.6 X10*3/uL (4.8-10.8)
[2024-06-30 07:06] LABS: INTERNATIONAL NORM RATIO 1.1 (0.9-1.1); Prothrombin Time 13.3 SEC (10.9-12.4)
[2024-06-30 07:17] LABS: Creatinine Clr Calc Pharmacy 72.7; Estimated Glomerular Filt Rate 56
[2024-06-30 07:29] LABS: Glucose, Whole Blood 159 mg/dL (60-115)
[2024-06-30] MEDS: Insulin Glargine,Hum.rec.anlog 100 UNIT/ML 10 ML VIAL 10 UNIT SUBCUT (08:01)
[2024-06-30] MEDS: Insulin Lispro 100 UNIT/ML 3 ML VIAL SUBCUT ×4 (08:02→21:39)
[2024-06-30] MEDS: Escitalopram Oxalate 10 MG TABLET PO (08:02)
[2024-06-30] MEDS: 0.9 % Sodium Chloride Flush 3 ML SYRINGE IVFLUSH ×3 (08:02→21:39)
[2024-06-30] MEDS: Ezetimibe 10 MG TABLET PO (08:03)
[2024-06-30] MEDS: Cholecalciferol (Vitamin D3) 25 MCG TABLET 50 MCG PO (08:03)
[2024-06-30] MEDS: Fenofibrate 54 MG TABLET PO (08:03)
--- NOTE | 2024-06-30 08:22 | PM.PNGS ---
Subjective Subjective Date of Service: 06/30/24 Interval history: No change in foot symptoms Physical Exam Vital Signs: Vital Signs: Last Vital Signs Temp 97.0 F 06/30/24 07:34 Pulse 75 06/30/24 07:34 Resp 18 06/30/24 07:34 BP 148/65 H 06/30/24 07:34 Pulse Ox 92 06/30/24 07:34 O2 Del Method Nasal Cannula 06/30/24 07:34 O2 Flow Rate 3 06/30/24 07:34 BMI result Body Mass Index 33.4 Const: General: comfortable Nutritional Appearance: well nourished Orientation/consciousness: patient oriented x3 Resp: Effort & Inspection: normal respiratory effort Neuro: General: patient oriented x3 Extrem: Other: Gangrenous changes of the 5th toe as well as obvious infection of the 4th toe extending into the plantar surface as well as ventral surface. Decreased erythema noted overall. No tenderness to palpation. Objective Data Active Medications Acetaminophen (Acetaminophen 325 Mg Tablet) 650 mg PO Q6H PRN PRN Reason: Pain, Mild 1-3,fever,headache Bisacodyl (Bisacodyl 10 Mg Supp.Rect) 10 mg [place] DAILY PRN PRN Reason: Constipation Calcium Carbonate (Calcium Carbonate 750 Mg Tab.Chew) 750 mg PO Q4H PRN PRN Reason: Heartburn Ezetimibe (Ezetimibe 10 Mg Tablet) 10 mg PO DAILY [facility] Last Admin: 06/30/24 08:03 Dose: 10 mg Documented By: DALIA Enoxaparin Sodium (Enoxaparin Sodium 40 Mg/0.4 Ml Syringe) 40 mg SUBCUT Q24H [facility] Last Admin: 06/29/24 19:59 Dose: 40 mg Documented By: NAHID Escitalopram Oxalate (Escitalopram Oxalate 10 Mg Tablet) 10 mg PO DAILY [facility] Last Admin: 06/30/24 08:02 Dose: 10 mg Documented By: DALIA Fenofibrate (Fenofibrate 54 Mg Tablet) 54 mg PO DAILY [facility] Last Admin: 06/30/24 08:03 Dose: 54 mg Documented By: DALIA Glucose (Glucose Gel 15 Gm Gel..Gram.) 15 gm PO Q15M PRN; Protocol PRN Reason: per Hypoglycemia Standing Ord. Dextrose (D10) 250 mls @ 750 mls/hr IV Q15M PRN; Protocol PRN Reason: per Hypoglycemia Standing Ord. Vancomycin HCl 1,500 mg/ (Sodium Chloride) 500 mls @ 333.333 mls/hr IV Q24H [facility] Last Infusion: 06/29/24 19:45 Dose: Infused Documented By: NAHID Insulin Glargine (Insulin Glargine,Hum.Rec.Anlog 100 Unit/Ml 10 Ml Vial) 10 unit SUBCUT DAILY [facility] Last Admin: 06/30/24 08:01 Dose: 10 unit Documented By: DALIA Insulin Human Lispro (Insulin Lispro 100 Unit/Ml 3 Ml Vial) 0 unit SUBCUT QIDACHS [facility]; Protocol Last Admin: 06/30/24 08:02 Dose: 2 unit Documented By: DALIA Levothyroxine Sodium (Levothyroxine Sodium 112 Mcg Tablet) 112 mcg PO DAILY@0600 [facility] Last Admin: 06/30/24 05:52 Dose: 112 mcg Documented By: NAHID Levothyroxine Sodium (Levothyroxine Sodium 25 Mcg Tablet) 25 mcg PO DAILY@0600 [facility] Last Admin: 06/30/24 05:52 Dose: 25 mcg Documented By: NAHID Magnesium Hydroxide (Milk Of Magnesia 30 Ml Oral.Susp) 30 ml PO DAILY PRN PRN Reason: Constipation Magnesium Hydroxide (Milk Of Magnesia 30 Ml Oral.Susp) 30 ml PO DAILY PRN PRN Reason: Constipation Melatonin (Melatonin 3 Mg Tablet) 6 mg PO BEDTIME PRN PRN Reason: Insomnia Ondansetron HCl (Ondansetron Hcl 4 Mg/2 Ml Vial) 4 mg IVPUSH Q8H PRN PRN Reason: Nausea and Vomiting Pharmacy Consult (Consult Rx Vancomycin Dosing) 1 each MISCELLANE DAILY PRN PRN Reason: Consult order Sodium Biphosphate/Sodium Phosphate (Sodium Phosphate,[place]-Dibasic 133 Ml Enema) 118 ml [place] DAILY PRN PRN Reason: Constipation Sodium Chloride (0.9 % Sodium Chloride Flush 3 Ml Syringe) 3 ml IVFLUSH QSHIFT [facility] Last Admin: 06/30/24 08:02 Dose: 3 ml Documented By: DALIA Vitamin D (Cholecalciferol (Vitamin D3) 25 Mcg Tablet) 50 mcg PO DAILY [facility] Last Admin: 06/30/24 08:03 Dose: 50 mcg Documented By: DALIA Labs 06/30/24 06:12 06/30/24 06:12 Labs: Laboratory Results - last 24 hr 06/29/24 06/29/24 06/29/24 08:20 08:20 08:20 MCV 82.5 MCH 27.4 MCHC 33.2 RDW 13.5 Plt Count 358 MPV 9.5 Absolute Nucleated RBC 0.000 Nucleated RBC % (auto) 0.0 PT INR Anion Gap 12 Estim Creat Clear Calc 61.2 60.8 Estimated GFR 46 46 POC Glucose Random Glucose 183 H Calcium 8.1 L D Iron 20 L TIBC 145 L % Saturation 14 L Unsat Iron Binding 125 Lactate Dehydrogenase B-Natriuretic Peptide 264 H Total Protein Random Vancomycin 06/29/24 06/29/24 06/29/24 11:46 16:05 16:37 MCV MCH MCHC RDW Plt Count MPV Absolute Nucleated RBC Nucleated RBC % (auto) PT INR Anion Gap Estim Creat Clear Calc Estimated GFR POC Glucose 246 H 262 H Random Glucose 262 H Calcium Iron TIBC % Saturation Unsat Iron Binding Lactate Dehydrogenase 228 B-Natriuretic Peptide Total Protein 7.2 Random Vancomycin 13.0 L 06/29/24 06/30/24 06/30/24 20:26 06:12 07:23 MCV 84.6 MCH 26.7 L MCHC 31.6 RDW 13.6 Plt Count 343 MPV 9.7 Absolute Nucleated RBC 0.000 Nucleated RBC % (auto) 0.0 PT 13.3 H INR 1.1 Anion Gap Estim Creat Clear Calc 72.7 Estimated GFR 56 POC Glucose 225 H 159 H Random Glucose Calcium Iron TIBC % Saturation Unsat Iron Binding Lactate Dehydrogenase B-Natriuretic Peptide Total Protein Random Vancomycin Procedures Date of Service Date of Service: 06/30/24 Progress Note: A&P Assessment and plan (1) Diabetic foot ulcer: Status: Acute (2) Pleural effusion: Status: Acute Plan 53-year-old male patient presenting with prior history of diabetes mellitus type 2, found to have osteomyelitis of the 4th and 5th toe by MRI and gangrenous changes to the skin of the 5th toe. Patient found to have pleural effusions which may require IR drainage. We will hold off on surgery until medically cleared. Time Spent With Patient Time: Total time managing care of this patient today ____ minutes. Quality Stroke Does the patient have a stroke diagnosis?: No VTE Prior VTE?: No VTE Risk Level:: Medical - moderate - high VTE Device Contraindication: Treatment Not Indicated VTE Drug Contraindication: N/A - Med Ordered
[2024-06-30 09:50] LABS: Anion Gap 12 (12-20); Blood Urea Nitrogen 22 mg/dL (9-16); Carbon Dioxide 16 mmol/L (22-29); Chloride 114 mmol/L (96-108); Creatinine Clr Calc Pharmacy 72.1; Estimated Glomerular Filt Rate 56; Glucose Random 186 mg/dL (60-115); Potassium 4.7 mmol/L (3.3-5.1); Sodium 137 mmol/L (135-145)
--- NOTE | 2024-06-30 09:51 | HO.PM.IMPN ---
Subjective Subjective Date of Service: 06/30/24 Review of Systems Follow up foot wound denied pain very vague about previous amputation surgery Physical Exam Vital Signs: Vital Signs: Last Vital Signs Temp 97.0 F 06/30/24 07:34 Pulse 75 06/30/24 07:34 Resp 18 06/30/24 07:34 BP 148/65 H 06/30/24 07:34 Pulse Ox 92 06/30/24 07:34 O2 Del Method Nasal Cannula 06/30/24 07:34 O2 Flow Rate 3 06/30/24 07:34 BMI result Body Mass Index 33.4 Appearing in no acute distress lung sounds are clear to auscultation heart regular rate rhythm, clear S1, S2 positive bowel sounds, abdomen is soft, nontender neuro patient is alert x3, no focal deficits Objective Data Active Medications Acetaminophen (Acetaminophen 325 Mg Tablet) 650 mg PO Q6H PRN PRN Reason: Pain, Mild 1-3,fever,headache Bisacodyl (Bisacodyl 10 Mg Supp.Rect) 10 mg [place] DAILY PRN PRN Reason: Constipation Calcium Carbonate (Calcium Carbonate 750 Mg Tab.Chew) 750 mg PO Q4H PRN PRN Reason: Heartburn Ezetimibe (Ezetimibe 10 Mg Tablet) 10 mg PO DAILY [facility] Last Admin: 06/30/24 08:03 Dose: 10 mg Documented By: DALIA Enoxaparin Sodium (Enoxaparin Sodium 40 Mg/0.4 Ml Syringe) 40 mg SUBCUT Q24H [facility] Last Admin: 06/29/24 19:59 Dose: 40 mg Documented By: NAHID Escitalopram Oxalate (Escitalopram Oxalate 10 Mg Tablet) 10 mg PO DAILY [facility] Last Admin: 06/30/24 08:02 Dose: 10 mg Documented By: DALIA Fenofibrate (Fenofibrate 54 Mg Tablet) 54 mg PO DAILY [facility] Last Admin: 06/30/24 08:03 Dose: 54 mg Documented By: DALIA Glucose (Glucose Gel 15 Gm Gel..Gram.) 15 gm PO Q15M PRN; Protocol PRN Reason: per Hypoglycemia Standing Ord. Dextrose (D10) 250 mls @ 750 mls/hr IV Q15M PRN; Protocol PRN Reason: per Hypoglycemia Standing Ord. Vancomycin HCl 1,500 mg/ (Sodium Chloride) 500 mls @ 333.333 mls/hr IV Q24H [facility] Last Infusion: 06/29/24 19:45 Dose: Infused Documented By: NAHID Insulin Glargine (Insulin Glargine,Hum.Rec.Anlog 100 Unit/Ml 10 Ml Vial) 10 unit SUBCUT DAILY [facility] Last Admin: 06/30/24 08:01 Dose: 10 unit Documented By: DALIA Insulin Human Lispro (Insulin Lispro 100 Unit/Ml 3 Ml Vial) 0 unit SUBCUT QIDACHS [facility]; Protocol Last Admin: 06/30/24 08:02 Dose: 2 unit Documented By: DALIA Levothyroxine Sodium (Levothyroxine Sodium 112 Mcg Tablet) 112 mcg PO DAILY@0600 [facility] Last Admin: 06/30/24 05:52 Dose: 112 mcg Documented By: NAHID Levothyroxine Sodium (Levothyroxine Sodium 25 Mcg Tablet) 25 mcg PO DAILY@0600 [facility] Last Admin: 06/30/24 05:52 Dose: 25 mcg Documented By: NAHID Magnesium Hydroxide (Milk Of Magnesia 30 Ml Oral.Susp) 30 ml PO DAILY PRN PRN Reason: Constipation Magnesium Hydroxide (Milk Of Magnesia 30 Ml Oral.Susp) 30 ml PO DAILY PRN PRN Reason: Constipation Melatonin (Melatonin 3 Mg Tablet) 6 mg PO BEDTIME PRN PRN Reason: Insomnia Ondansetron HCl (Ondansetron Hcl 4 Mg/2 Ml Vial) 4 mg IVPUSH Q8H PRN PRN Reason: Nausea and Vomiting Pharmacy Consult (Consult Rx Vancomycin Dosing) 1 each MISCELLANE DAILY PRN PRN Reason: Consult order Sodium Biphosphate/Sodium Phosphate (Sodium Phosphate,[place]-Dibasic 133 Ml Enema) 118 ml [place] DAILY PRN PRN Reason: Constipation Sodium Chloride (0.9 % Sodium Chloride Flush 3 Ml Syringe) 3 ml IVFLUSH QSHIFT [facility] Last Admin: 06/30/24 08:02 Dose: 3 ml Documented By: DALIA Vitamin D (Cholecalciferol (Vitamin D3) 25 Mcg Tablet) 50 mcg PO DAILY [facility] Last Admin: 06/30/24 08:03 Dose: 50 mcg Documented By: DALIA Labs 06/30/24 06:12 06/30/24 09:06 Labs: Laboratory Results - last 24 hr 06/29/24 06/29/24 06/29/24 11:46 16:05 16:37 MCV MCH MCHC RDW Plt Count MPV Absolute Nucleated RBC Nucleated RBC % (auto) PT INR Anion Gap Estim Creat Clear Calc Estimated GFR POC Glucose 246 H 262 H Random Glucose 262 H Calcium Lactate Dehydrogenase 228 Total Protein 7.2 Random Vancomycin 13.0 L 06/29/24 06/30/24 06/30/24 20:26 06:12 07:23 MCV 84.6 MCH 26.7 L MCHC 31.6 RDW 13.6 Plt Count 343 MPV 9.7 Absolute Nucleated RBC 0.000 Nucleated RBC % (auto) 0.0 PT 13.3 H INR 1.1 Anion Gap Estim Creat Clear Calc 72.7 Estimated GFR 56 POC Glucose 225 H 159 H Random Glucose Calcium Lactate Dehydrogenase Total Protein Random Vancomycin 06/30/24 09:06 MCV MCH MCHC RDW Plt Count MPV Absolute Nucleated RBC Nucleated RBC % (auto) PT INR Anion Gap 12 Estim Creat Clear Calc 72.1 Estimated GFR 56 POC Glucose Random Glucose 186 H Calcium 8.0 L Lactate Dehydrogenase Total Protein Random Vancomycin Assessment and Plan (1) Diabetic foot ulcer: Status: Acute Plan 53-year-old [place]ian-speaking male with pertinent history of insulin-dependent diabetes mellitus with neuropathy, hypertension, hyperlipidemia, hypothyroidism, mood disorder, gastroesophageal reflux disease, CKD who presents to the emergency department for evaluation of left foot infection. Bilateral pleural effusion with hypoxia Plan for thoracentesis, need consent from family member Viviana [phone] Continue supplemental oxygen to keep oxygen saturation greater than 90% Severe sepsis due to infected diabetic foot ulcer, gangrenous 5th toe and purulent cellulitis Resuscitated with IV crystalloids. IV vancomycin and Zosyn initially foot MRI showing definitive Osteomyelitis Consulting General surgery>plan for amputation of 4,5th toe and debridement Strep agalactiae group B continue vancomycin ID consult JJ and CKD 3b Monitor with crystalloid resuscitation. Avoid nephrotoxins. Normocytic anemia Likely secondary to chronic kidney disease No active bleeding Hematology consultation Insulin-dependent diabetes mellitus with hyperglycemia Initiating basal plus insulin regimen Acute lactic acidosis due to sepsis Elevated transaminases due to sepsis Hypertension Hold home antihypertensives in the setting of sepsis. Resume as appropriate Mood disorder Continue home mood stabilizers Mixed hyperlipidemia On statin and fenofibrate Hypothyroidism On Synthroid DVT prophylaxis: Lovenox Full code Quality Stroke Does the patient have a stroke diagnosis?: No VTE Prior VTE?: No VTE Risk Level:: Medical - moderate - high VTE Device Contraindication: Treatment Not Indicated VTE Drug Contraindication: N/A - Med Ordered
--- NOTE | 2024-06-30 10:13 | P.CNHO_ITS ---
Subjective - Subjective Chief complaint: None Patient: new to practice Consult date: 06/30/24 Primary Care Provider: Isai Reaves MD HPI - Consult Narrative Reason for consult: Anemia Narrative: Mehul Beltran is a 53 year old Citizen Of [place]-speaking male with developmental delay who has been admitted for left foot infection, diagnosed with osteomyelitis. His past history significant for insulin-dependent diabetes mellitus, neuropathy, hypertension, hyperlipidemia and chronic kidney disease. Patient presented to the emergency department because of pain and swelling with foul smelling pus from his left foot. Evaluation in the emergency department found patient to be septic, who is admitted for IV antibiotics. He was also noted to have acute kidney injury with his creatinine going up to 2.18 from a baseline of 1.4. He has chronic anemia with a hemoglobin of 9.9 gram/dL , this has gradually declined to 7.1 gram/dL. He has mild iron deficiency as well. Patient's sister is the main historian. They have not been told of anemia in the past. Review of Systems - Constitutional Reports as per [facility] Medical History: Medical History (Last Reviewed 06/27/24 @ 09:44 by Bao Dempsey MD) Acute kidney injury Acute osteomyelitis of right foot Autoimmune thyroiditis Bacteremia Bilateral hand pain Cataracts, both eyes CHF (congestive heart failure) Cognitive developmental delay Diabetes Diabetic ketoacidosis Edema Essential hypertension HTN (hypertension) Hyperkalemia Hyperlipidemia Hyperlipidemia LDL goal <100 Hyponatremia Hypothyroid Hypovitaminosis D Infection of penis Left foot pain Nausea and vomiting Obesity due to excess calories Proteinuria Right foot pain Right knee pain Type 2 diabetes mellitus with hyperglycemia, with long-term current use of insulin Type 2 diabetes mellitus with other diabetic kidney complication Family History: Family History (Last Reviewed 06/27/24 @ 09:44 by Bao Dempsey MD) Father HTN (hypertension) Mother Diabetes mellitus Maternal Grandmother Diabetes mellitus Surgical History: Surgical History (Last Reviewed 06/27/24 @ 09:44 by Bao Dempsey MD) History of transmetatarsal amputation of right foot Onset Date: 09/12/22 Hx laparoscopic cholecystectomy Onset Date: 10/16/22 Hx of cataract surgery Hx of removal of cyst S/P split thickness skin graft Onset Date: 07/10/21 Status post transmetatarsal amputation of right foot Social History: Social History (Last Reviewed 06/27/24 @ 09:44 by Bao Dempsey MD) Living Situation History: Household Members: Friend(s) Household Members Other:: residential Housing: Apartment Housing Other:: SNF Do you presently have visiting nurse or other home services: No Alcohol History: Unable to assess alcohol history related to: Unknown Tobacco History: Patient Tobacco Use Status: Never used Tobacco e-Cigarette/Vaping Use: Never Used Second Hand Smoke Exposure: No Substance Use History: Substance Use Type: Caffiene Advance Directives: Advance Directives Date on File: 07/25/23 Occupation Assessmet: service: No Current occupational status: disabled Home Medications and Allergies Current Medications: Current Medications Acetaminophen (Acetaminophen 325 Mg Tablet) 650 mg PO Q6H PRN PRN Reason: Pain, Mild 1-3,fever,headache Bisacodyl (Bisacodyl 10 Mg Supp.Rect) 10 mg [place] DAILY PRN PRN Reason: Constipation Calcium Carbonate (Calcium Carbonate 750 Mg Tab.Chew) 750 mg PO Q4H PRN PRN Reason: Heartburn Ezetimibe (Ezetimibe 10 Mg Tablet) 10 mg PO DAILY [facility] Last Admin: 06/30/24 08:03 Dose: 10 mg Enoxaparin Sodium (Enoxaparin Sodium 40 Mg/0.4 Ml Syringe) 40 mg SUBCUT Q24H [facility] Last Admin: 06/29/24 19:59 Dose: 40 mg Escitalopram Oxalate (Escitalopram Oxalate 10 Mg Tablet) 10 mg PO DAILY [facility] Last Admin: 06/30/24 08:02 Dose: 10 mg Fenofibrate (Fenofibrate 54 Mg Tablet) 54 mg PO DAILY [facility] Last Admin: 06/30/24 08:03 Dose: 54 mg Glucose (Glucose Gel 15 Gm Gel..Gram.) 15 gm PO Q15M PRN; Protocol PRN Reason: per Hypoglycemia Standing Ord. Dextrose (D10) 250 mls @ 750 mls/hr IV Q15M PRN; Protocol PRN Reason: per Hypoglycemia Standing Ord. Vancomycin HCl 1,500 mg/ (Sodium Chloride) 500 mls @ 333.333 mls/hr IV Q24H [facility] Last Infusion: 06/29/24 19:45 Dose: Infused Insulin Glargine (Insulin Glargine,Hum.Rec.Anlog 100 Unit/Ml 10 Ml Vial) 10 unit SUBCUT DAILY [facility] Last Admin: 06/30/24 08:01 Dose: 10 unit Insulin Human Lispro (Insulin Lispro 100 Unit/Ml 3 Ml Vial) 0 unit SUBCUT QIDACHS [facility]; Protocol Last Admin: 06/30/24 08:02 Dose: 2 unit Levothyroxine Sodium (Levothyroxine Sodium 112 Mcg Tablet) 112 mcg PO DAILY@0600 [facility] Last Admin: 06/30/24 05:52 Dose: 112 mcg Levothyroxine Sodium (Levothyroxine Sodium 25 Mcg Tablet) 25 mcg PO DAILY@0600 [facility] Last Admin: 06/30/24 05:52 Dose: 25 mcg Magnesium Hydroxide (Milk Of Magnesia 30 Ml Oral.Susp) 30 ml PO DAILY PRN PRN Reason: Constipation Magnesium Hydroxide (Milk Of Magnesia 30 Ml Oral.Susp) 30 ml PO DAILY PRN PRN Reason: Constipation Melatonin (Melatonin 3 Mg Tablet) 6 mg PO BEDTIME PRN PRN Reason: Insomnia Ondansetron HCl (Ondansetron Hcl 4 Mg/2 Ml Vial) 4 mg IVPUSH Q8H PRN PRN Reason: Nausea and Vomiting Pharmacy Consult (Consult Rx Vancomycin Dosing) 1 each MISCELLANE DAILY PRN PRN Reason: Consult order Sodium Biphosphate/Sodium Phosphate (Sodium Phosphate,[place]-Dibasic 133 Ml Enema) 118 ml [place] DAILY PRN PRN Reason: Constipation Sodium Chloride (0.9 % Sodium Chloride Flush 3 Ml Syringe) [facility] Last Admin: 06/30/24 08:02 Dose: 3 ml Vitamin D (Cholecalciferol (Vitamin D3) 25 Mcg Tablet) 50 mcg PO DAILY [facility] Last Admin: 06/30/24 08:03 Dose: 50 mcg Home Medications ?Medication ?Instructions ?Recorded ?Confirmed ?Type metformin 500 mg tablet 750 mg PO DAILY 06/20/22 06/26/24 History amlodipine 10 mg tablet 10 mg PO DAILY 10/12/22 06/26/24 History cholecalciferol (vitamin D3) 50 50 mcg PO DAILY 10/12/22 06/26/24 History mcg (2,000 unit) capsule escitalopram oxalate 10 mg tablet 10 mg PO DAILY 10/12/22 06/26/24 History ezetimibe 10 mg tablet 10 mg PO DAILY 10/12/22 06/26/24 History fenofibrate 54 mg tablet 54 mg PO DAILY 10/12/22 06/26/24 History insulin degludec 200 unit/mL (3 20 unit subcut DAILY 10/12/22 06/26/24 History mL) subcutaneous pen (Tresiba FlexTouch U-200 insulin) lisinopril 10 mg tablet 10 mg PO DAILY 10/12/22 06/26/24 History ondansetron HCl 4 mg tablet 4 mg PO Q8H PRN Nausea And Vomiting 10/12/22 06/26/24 History simvastatin 40 mg tablet 40 mg PO BEDTIME 10/12/22 06/26/24 History acetaminophen 325 mg tablet 650 mg PO Q4H PRN Fever Or Pain 10/13/22 06/26/24 History bisacodyl 10 mg rectal suppository 10 mg [place] DAILY PRN Constipation 10/13/22 06/26/24 History magnesium hydroxide 400 mg/5 mL 30 ml PO DAILY PRN Constipation 10/13/22 06/26/24 History oral suspension (Milk of Magnesia) sodium phosphates 19 gram-7 118 ml [place] DAILY PRN Constipation 10/13/22 06/26/24 History gram/118 mL enema (Fleet Enema) ammonium lactate 12 % topical cream 1 appl topical DAILY 07/10/23 06/26/24 History insulin lispro 100 unit/mL See Protocol subcut QIDACHS 07/10/23 06/26/24 History subcutaneous solution loperamide 2 mg tablet 2 mg PO Q4H PRN Loose Stool 07/18/23 06/26/24 History levothyroxine 137 mcg tablet 137 mcg PO DAILY@0600 06/26/24 06/26/24 History metronidazole 500 mg tablet 500 mg DAILY wound 06/26/24 06/26/24 History tirzepatide 5 mg/0.5 mL 5 mg subcut TH 06/26/24 06/26/24 History subcutaneous pen injector (Mounjaro) Allergies Allergy/AdvReac Type Severity Reaction Status Date / Time atorvastatin [ATORVASTATIN] Allergy Unknown skin Verified 06/26/24 15:59 eruption Physical Exam Vital signs: Vital Signs Temp 97.0 F 06/30/24 07:34 Pulse 75 06/30/24 07:34 Resp 18 06/30/24 07:34 BP 148/65 H 06/30/24 07:34 Pulse Ox 92 06/30/24 07:34 O2 Del Method Nasal Cannula 06/30/24 07:34 O2 Flow Rate 3 06/30/24 07:34 Intake & Output 06/29/24 06/30/24 06/30/24 18:59 06:59 18:59 Intake Total 240 / 1390 1150 / 1390 Output Total 95 / 2054 1100 / 2054 Balance -715 / -665 50 / -665 Urine Output (Average ml/kg/hr) 0.80 0.92 Intake: Intake, Oral Amount 240 / 890 650 / 890 Intake, IV Amount 500 / 500 vancomycin HCL 1,500 mg In 0.9 500 / 500 % Sodium Chloride 500 ml @ 333. 333 mls/hr IV Q24H [facility] Rx#: [id number] Output: Output, Urine Amount 2054 Other: Meal Refused No No NPO No Yes Breakfast % Eaten 100% Lunch % Eaten 0% Dinner % Eaten 50% Eating (Feeding) Ability Independent Independent Number of Bowel Movements 0 Urine Urinal Urinal Urine Color Kavya Yellow Weight 99.79 kg - Constitutional Present: no acute distress, obese - Routine HEENT Exam Head: Present: normal inspection - Routine Neck Exam Present: supple - Routine Respiratory Exam Absent: accessory muscle use - Routine Cardiovascular Exam Cardiovascular: Present: S1, S2 - Routine Abdominal Exam Present: soft Hem/Onc Consult Result - Labs CBC & Chem 7: 06/30/24 06:12 06/30/24 09:06 Labs: Short CBC 06/30/24 Range/Units 06:12 WBC 11.6 H (4.8-10.8) X10*3/uL Hgb 7.1 L (14.0-18.0) g/dl Hct 22.5 L (42.0-52.0) % Plt Count 343 (160-400) X10*3/uL BMP 06/30/24 06/30/24 06:12 09:06 Sodium 137 Potassium 4.7 D Chloride 114 H Carbon Dioxide 16 L BUN 22 H Creatinine 1.33 1.34 Calcium 8.0 L Assessment and Plan Patient Active problem list reviewed?: Yes (1) Anemia Status: Acute Assessment and plan: 1. This is a 53-year-old male with multiple medical problems chiefly osteomyelitis secondary to infected diabetic foot, sepsis and chronic kidney disease who has worsening anemia. Anemia is multifactorial but predominantly recent infection and underlying chronic kidney disease is contributing. His iron studies are low, ferritin level has been added. Submit vitamin B12 and folate levels. At this time I would recommend transfusing a unit of blood. No further hematological workup is necessary at this time. Further evaluation can be performed upon discharge if he remains anemic in spite of treatment of infection. This was explained to the patient's family in the presence of eyeglass fitter. Thank you for the consultation. - Time Spent With Patient Time Spent with Patient (in minutes): 20
--- NOTE | 2024-06-30 10:16 | PC.NURSE ---
07/02/2023 0930 The patient is alert and oriented to his name and and that he is in the hospital. He stated that it was January and that Sravan is the president. Called Isaura German listed as a contact and his proxy. She stated she is a past girlfriend and has not seen him in years. Called the person listed on Slava Juan who stated he is no longer the health care proxy. Floresita Glynn RN and Em Santos NP and Salome Scanlon RN, change control manager notified.
--- NOTE | 2024-06-30 11:11 | MHC.CM.PN ---
Per MD rounds patient not medically cleared for dc. CM spoke w/ HCP on file, Slava, who reports he is no longer HCP. Requested updated HCP from facility and received document listing HCA's as 1) sister Andie Beltran Tarik [phone] and 2) cousin Viviana Cortésio [phone]. Plan for OR today.
[2024-06-30 11:14] LABS: Glucose, Whole Blood 182 mg/dL (60-115)
[2024-06-30] MEDS: Furosemide 20 MG/2 ML VIAL IVPUSH ×2 (11:44→18:11)
--- NOTE | 2024-06-30 12:32 | PM.CNPUL ---
History of Present Illness History of Present Illness Consult date: 06/30/24 Chief complaint: Bilateral pleural effusions Narrative: 53-year-old gentleman with underlying history of cognitive developmental delay, diabetes mellitus, congestive heart failure hypertension, thyroiditis admitted on 06/26/2024 with diabetic foot infection and JJ on CKD and treated for such. On further evaluation for hypoxia patient was noted to have bilateral pleural effusions [id number] CT chest. Pulmonary evaluation was requested. Review of Systems Cardiovascular: Cardiovascular: Denies chest pain, Denies dyspnea, Reports dyspnea on exertion and Reports orthopnea Respiratory: Respiratory: Denies cough, Denies hemoptysis, Denies excessive phlegm production, Denies dyspnea and Reports dyspnea on exertion PMFSH Past Medical History Medical History Acute osteomyelitis of right foot Nausea and vomiting Bacteremia Bilateral hand pain Right knee pain Hypovitaminosis D Right foot pain Left foot pain Infection of penis Hyponatremia Hyperkalemia Diabetic ketoacidosis Acute kidney injury Autoimmune thyroiditis Obesity due to excess calories Type 2 diabetes mellitus with hyperglycemia, with long-term current use of insulin CHF (congestive heart failure) Cognitive developmental delay Proteinuria Type 2 diabetes mellitus with other diabetic kidney complication Essential hypertension Hyperlipidemia LDL goal <100 Edema Hyperlipidemia Cataracts, both eyes HTN (hypertension) Hypothyroid Diabetes Family History Family History Father HTN (hypertension) Mother Diabetes mellitus Maternal Grandmother Diabetes mellitus Surgical History Surgical History S/P split thickness skin graft (07/10/21) Status post transmetatarsal amputation of right foot Hx laparoscopic cholecystectomy (10/16/22) 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) Hx of removal of cyst Hx of cataract surgery Social History Social History Household Members: Friend(s) Household Members Other:: residential Housing: Apartment Housing Other:: SNF Do you presently have visiting nurse or other home services: No Unable to assess alcohol history related to: Unknown Alcohol intake: never Patient Tobacco Use Status: Never used Tobacco e-Cigarette/Vaping Use: Never Used Second Hand Smoke Exposure: No Substance Use Type: Caffiene Advance Directives Date on File: 07/25/23 service: No Current occupational status: disabled Cognitive needs: Yes Hearing needs: No Vision needs: No Meds Allergies Allergy/AdvReac Type Severity Reaction Status Date / Time atorvastatin [ATORVASTATIN] Allergy Unknown skin Verified 06/26/24 15:59 eruption Active Medications: Current Medications Acetaminophen (Acetaminophen 325 Mg Tablet) 650 mg PO Q6H PRN PRN Reason: Pain, Mild 1-3,fever,headache Bisacodyl (Bisacodyl 10 Mg Supp.Rect) 10 mg NV DAILY PRN PRN Reason: Constipation Calcium Carbonate (Calcium Carbonate 750 Mg Tab.Chew) 750 mg PO Q4H PRN PRN Reason: Heartburn Ezetimibe (Ezetimibe 10 Mg Tablet) 10 mg PO DAILY [facility] Last Admin: 06/30/24 08:03 Dose: 10 mg Enoxaparin Sodium (Enoxaparin Sodium 40 Mg/0.4 Ml Syringe) 40 mg SUBCUT Q24H [facility] Last Admin: 06/29/24 19:59 Dose: 40 mg Escitalopram Oxalate (Escitalopram Oxalate 10 Mg Tablet) 10 mg PO DAILY [facility] Last Admin: 06/30/24 08:02 Dose: 10 mg Fenofibrate (Fenofibrate 54 Mg Tablet) 54 mg PO DAILY [facility] Last Admin: 06/30/24 08:03 Dose: 54 mg Furosemide (Furosemide 20 Mg/2 Ml Vial) 20 mg IVPUSH BID@0900,1800 [facility]; Protocol Last Admin: 06/30/24 11:44 Dose: 20 mg Glucose (Glucose Gel 15 Gm Gel..Gram.) 15 gm PO Q15M PRN; Protocol PRN Reason: per Hypoglycemia Standing Ord. Dextrose (D10) 250 mls @ 750 mls/hr IV Q15M PRN; Protocol PRN Reason: per Hypoglycemia Standing Ord. Vancomycin HCl 1,500 mg/ (Sodium Chloride) 500 mls @ 333.333 mls/hr IV Q24H [facility] Last Infusion: 06/29/24 19:45 Dose: Infused Insulin Glargine (Insulin Glargine,Hum.Rec.Anlog 100 Unit/Ml 10 Ml Vial) 10 unit SUBCUT DAILY [facility] Last Admin: 06/30/24 08:01 Dose: 10 unit Insulin Human Lispro (Insulin Lispro 100 Unit/Ml 3 Ml Vial) 0 unit SUBCUT QIDACHS [facility]; Protocol Last Admin: 06/30/24 11:45 Dose: 2 unit Levothyroxine Sodium (Levothyroxine Sodium 112 Mcg Tablet) 112 mcg PO DAILY@0600 [facility] Last Admin: 06/30/24 05:52 Dose: 112 mcg Levothyroxine Sodium (Levothyroxine Sodium 25 Mcg Tablet) 25 mcg PO DAILY@0600 [facility] Last Admin: 06/30/24 05:52 Dose: 25 mcg Magnesium Hydroxide (Milk Of Magnesia 30 Ml Oral.Susp) 30 ml PO DAILY PRN PRN Reason: Constipation Magnesium Hydroxide (Milk Of Magnesia 30 Ml Oral.Susp) 30 ml PO DAILY PRN PRN Reason: Constipation Melatonin (Melatonin 3 Mg Tablet) 6 mg PO BEDTIME PRN PRN Reason: Insomnia Ondansetron HCl (Ondansetron Hcl 4 Mg/2 Ml Vial) 4 mg IVPUSH Q8H PRN PRN Reason: Nausea and Vomiting Pharmacy Consult (Consult Rx Vancomycin Dosing) 1 each MISCELLANE DAILY PRN PRN Reason: Consult order Sodium Biphosphate/Sodium Phosphate (Sodium Phosphate,[place]-Dibasic 133 Ml Enema) 118 ml NV DAILY PRN PRN Reason: Constipation Sodium Chloride (0.9 % Sodium Chloride Flush 3 Ml Syringe) 3 ml IVFLUSH QSHIFT [facility] Last Admin: 06/30/24 08:02 Dose: 3 ml Vitamin D (Cholecalciferol (Vitamin D3) 25 Mcg Tablet) 50 mcg PO DAILY [facility] Last Admin: 06/30/24 08:03 Dose: 50 mcg Home Medications ?Medication ?Instructions ?Recorded ?Confirmed ?Last Taken ?Type metformin 500 mg tablet 750 mg PO DAILY 06/20/22 06/26/24 06/20/22 History amlodipine 10 mg tablet 10 mg PO DAILY 10/12/22 06/26/24 07/10/23 History cholecalciferol (vitamin D3) 50 50 mcg PO DAILY 10/12/22 06/26/24 Unknown History mcg (2,000 unit) capsule escitalopram oxalate 10 mg tablet 10 mg PO DAILY 10/12/22 06/26/24 Unknown History ezetimibe 10 mg tablet 10 mg PO DAILY 10/12/22 06/26/24 Unknown History fenofibrate 54 mg tablet 54 mg PO DAILY 10/12/22 06/26/24 Unknown History insulin degludec 200 unit/mL (3 20 unit subcut DAILY 10/12/22 06/26/24 Unknown History mL) subcutaneous pen (Tresiba FlexTouch U-200 insulin) lisinopril 10 mg tablet 10 mg PO DAILY 10/12/22 06/26/24 Unknown History ondansetron HCl 4 mg tablet 4 mg PO Q8H PRN Nausea And Vomiting 10/12/22 06/26/24 Unknown History simvastatin 40 mg tablet 40 mg PO BEDTIME 10/12/22 06/26/24 Unknown History acetaminophen 325 mg tablet 650 mg PO Q4H PRN Fever Or Pain 10/13/22 06/26/24 Unknown History bisacodyl 10 mg rectal suppository 10 mg NV DAILY PRN Constipation 10/13/22 06/26/24 Unknown History magnesium hydroxide 400 mg/5 mL 30 ml PO DAILY PRN Constipation 10/13/22 06/26/24 Unknown History oral suspension (Milk of Magnesia) sodium phosphates 19 gram-7 118 ml NV DAILY PRN Constipation 10/13/22 06/26/24 Unknown History gram/118 mL enema (Fleet Enema) ammonium lactate 12 % topical cream 1 appl topical DAILY 07/10/23 06/26/24 Unknown History insulin lispro 100 unit/mL See Protocol subcut QIDACHS 07/10/23 06/26/24 Unknown History subcutaneous solution loperamide 2 mg tablet 2 mg PO Q4H PRN Loose Stool 07/18/23 06/26/24 Unknown History levothyroxine 137 mcg tablet 137 mcg PO DAILY@0600 06/26/24 06/26/24 Unknown History metronidazole 500 mg tablet 500 mg DAILY wound 06/26/24 06/26/24 Unknown History tirzepatide 5 mg/0.5 mL 5 mg subcut TH 06/26/24 06/26/24 Unknown History subcutaneous pen injector (Horace) Physical Exam Vital Signs: Vital Signs: Last Vital Signs Temp 97.0 F 06/30/24 07:34 Pulse 75 06/30/24 07:34 Resp 18 06/30/24 07:34 BP 148/65 H 06/30/24 07:34 Pulse Ox 92 06/30/24 07:34 O2 Del Method Nasal Cannula 06/30/24 07:34 O2 Flow Rate 3 06/30/24 07:34 BMI result Body Mass Index 33.4 Const: General: no acute distress, alert and awake Nutritional Appearance: obese Eyes: Sclerae: sclerae normal EOM: EOMs intact bilaterally Neck: Neck: Yes no lymphadenopathy, Yes trachea midline and Yes supple Resp: Effort & Inspection: normal respiratory effort and no respiratory distress Auscultation: crackles (Bibasilar) Cardio: Rate: regular rate Rhythm: regular rhythm Heart sounds: no gallops, no murmurs and no rubs GI: Palpation (GI): Soft to palpation and Other GI palpation findings present ( Nontender) Auscultation: normal bowel sounds Extrem: General: No clubbing, No cyanosis and Yes edema (2+ bilateral) Results Laboratory Findings 06/30/24 06:12 06/30/24 09:06 ABG, PT/INR, D-dimer: PT/INR, D-dimer PT 13.3 SEC (10.9-12.4) H 06/30/24 06:12 INR 1.1 (0.9-1.1) 06/30/24 06:12 Abnormal lab findings: Abnormal Labs 06/26/24 06/26/24 06/26/24 16:01 16:12 21:57 WBC 17.1 H RBC 3.19 L Hgb 8.6 L Hct 26.4 L MCH Immature Gran % (Auto) 0.6 H Neut % (Auto) 88.9 H Lymph % (Auto) 4.3 L Lymph # (Auto) 0.7 L Eos # (Auto) Abs Immat Gran (auto) 0.11 H Absolute Neuts (auto) 15.2 H PT Sodium 131 L Chloride Carbon Dioxide 16 L BUN 40 H Creatinine 2.18 H POC Glucose 297 H 246 H Random Glucose 339 H Lactic Acid 2.4 H* Calcium Iron TIBC % Saturation AST 73 H ALT 64 H Alkaline Phosphatase 145 H B-Natriuretic Peptide Total Protein 8.1 H Albumin 3.4 L Random Vancomycin 06/27/24 06/27/24 06/27/24 06:42 07:17 13:30 WBC 14.0 H RBC 2.69 L Hgb 7.4 L Hct 22.1 L MCH Immature Gran % (Auto) 0.9 H Neut % (Auto) 81.1 H Lymph % (Auto) 6.7 L Lymph # (Auto) 0.9 L Eos # (Auto) 0.5 H Abs Immat Gran (auto) 0.12 H Absolute Neuts (auto) 11.3 H PT Sodium Chloride 110 H Carbon Dioxide 15 L BUN 38 H Creatinine 1.89 H POC Glucose 171 H 215 H Random Glucose 187 H Lactic Acid Calcium 7.6 L D Iron TIBC % Saturation AST ALT Alkaline Phosphatase B-Natriuretic Peptide Total Protein Albumin Random Vancomycin 06/27/24 06/27/24 06/28/24 16:52 20:22 07:37 WBC RBC Hgb Hct MCH Immature Gran % (Auto) Neut % (Auto) Lymph % (Auto) Lymph # (Auto) Eos # (Auto) Abs Immat Gran (auto) Absolute Neuts (auto) PT Sodium Chloride Carbon Dioxide BUN Creatinine POC Glucose 191 H 184 H 131 H Random Glucose Lactic Acid Calcium Iron TIBC % Saturation AST ALT Alkaline Phosphatase B-Natriuretic Peptide Total Protein Albumin Random Vancomycin 06/28/24 06/28/24 06/28/24 10:42 11:35 16:00 WBC RBC Hgb Hct MCH Immature Gran % (Auto) Neut % (Auto) Lymph % (Auto) Lymph # (Auto) Eos # (Auto) Abs Immat Gran (auto) Absolute Neuts (auto) PT Sodium Chloride Carbon Dioxide BUN Creatinine 2.03 H POC Glucose 180 H Random Glucose Lactic Acid Calcium Iron TIBC % Saturation AST ALT Alkaline Phosphatase B-Natriuretic Peptide Total Protein Albumin Random Vancomycin 14.7 L 06/28/24 06/28/24 06/29/24 16:41 20:50 07:40 WBC RBC Hgb Hct MCH Immature Gran % (Auto) Neut % (Auto) Lymph % (Auto) Lymph # (Auto) Eos # (Auto) Abs Immat Gran (auto) Absolute Neuts (auto) PT Sodium Chloride Carbon Dioxide BUN Creatinine POC Glucose 280 H 233 H 179 H Random Glucose Lactic Acid Calcium Iron TIBC % Saturation AST ALT Alkaline Phosphatase B-Natriuretic Peptide Total Protein Albumin Random Vancomycin 06/29/24 06/29/24 06/29/24 08:20 08:20 11:46 WBC 12.8 H RBC 2.85 L Hgb 7.8 L Hct 23.5 L MCH Immature Gran % (Auto) Neut % (Auto) Lymph % (Auto) Lymph # (Auto) Eos # (Auto) Abs Immat Gran (auto) Absolute Neuts (auto) PT Sodium Chloride 112 H Carbon Dioxide 16 L BUN 29 H Creatinine 1.58 H 1.59 H POC Glucose 246 H Random Glucose 183 H Lactic Acid Calcium 8.1 L D Iron 20 L TIBC 145 L % Saturation 14 L AST ALT Alkaline Phosphatase B-Natriuretic Peptide 264 H Total Protein Albumin Random Vancomycin 06/29/24 06/29/24 06/29/24 16:05 16:37 20:26 WBC RBC Hgb Hct MCH Immature Gran % (Auto) Neut % (Auto) Lymph % (Auto) Lymph # (Auto) Eos # (Auto) Abs Immat Gran (auto) Absolute Neuts (auto) PT Sodium Chloride Carbon Dioxide BUN Creatinine POC Glucose 262 H 225 H Random Glucose 262 H Lactic Acid Calcium Iron TIBC % Saturation AST ALT Alkaline Phosphatase B-Natriuretic Peptide Total Protein Albumin Random Vancomycin 13.0 L 06/30/24 06/30/24 06/30/24 06:12 07:23 09:06 WBC 11.6 H RBC 2.66 L Hgb 7.1 L Hct 22.5 L MCH 26.7 L Immature Gran % (Auto) Neut % (Auto) Lymph % (Auto) Lymph # (Auto) Eos # (Auto) Abs Immat Gran (auto) Absolute Neuts (auto) PT 13.3 H Sodium Chloride 114 H Carbon Dioxide 16 L BUN 22 H Creatinine POC Glucose 159 H Random Glucose 186 H Lactic Acid Calcium 8.0 L Iron TIBC % Saturation AST ALT Alkaline Phosphatase B-Natriuretic Peptide Total Protein Albumin Random Vancomycin 06/30/24 11:09 WBC RBC Hgb Hct MCH Immature Gran % (Auto) Neut % (Auto) Lymph % (Auto) Lymph # (Auto) Eos # (Auto) Abs Immat Gran (auto) Absolute Neuts (auto) PT Sodium Chloride Carbon Dioxide BUN Creatinine POC Glucose 182 H Random Glucose Lactic Acid Calcium Iron TIBC % Saturation AST ALT Alkaline Phosphatase B-Natriuretic Peptide Total Protein Albumin Random Vancomycin Microbiology: Microbiology 06/26/24 16:17 Blood - Venous Blood Culture - Final Strep agalactiae (Grp B) 06/26/24 16:12 Blood - Venous Blood Culture - Final Strep agalactiae (Grp B) Assessment and Plan (1) Pleural effusion: Status: Acute (2) Acute respiratory failure with hypoxia: Status: Acute Plan Impression: 53-year-old gentleman underlying developmental delay, obesity, diabetes mellitus, congestive heart failure, admitted with diabetic foot infection with hospital course complicated by acute hypoxic respiratory failure, JJ, and noted to have bilateral pleural effusions. Results of CT chest reviewed, underlying [id number] bilateral pleural effusions, likely secondary to exacerbation of underlying congestive heart failure. Recommendations: Would advise against therapeutic thoracenteses as patient has bilateral small to moderate pleural effusions likely related to combination of underlying acute kidney failure with fluid retention and resultant congestive heart failure. Would consider empiric diuresis. Procedures Date of Service Date of Service: 06/30/24
[2024-06-30 16:23] LABS: Glucose, Whole Blood 204 mg/dL (60-115)
[2024-06-30 17:00] LABS: Vancomycin Random 13.7 mcg/mL (15-20)
--- NOTE | 2024-06-30 17:17 | HE.PHANOTE ---
RE: VANCO DOSING Trough came back as 13.7 mg/L (predicted to be 12.3 mg/L). Renal function is improving, dose is increased to 1000 mg q12h (predicted AUC 559, trough 18.5). Next trough is scheduled for 07/01/24 @1600.
[2024-06-30 17:32] LABS: Ferritin 557 ng/mL (20-250)
[2024-06-30] MEDS: vancomycin HCL 1,000 MG in 0.9 % Sodium Chloride 250 ML 270 MG IV (18:14)
[2024-06-30 20:51] LABS: Glucose, Whole Blood 207 mg/dL (60-115)
[2024-06-30] MEDS: Enoxaparin Sodium 40 MG/0.4 ML SYRINGE SUBCUT (21:39)
--- NOTE | 2024-06-30 22:50 | P.CNID_ITS ---
History of Present Illness Data of Consult Service Date: 06/30/24 Requesting physician: Em Downing Primary Care Provider: Isai Reaves MD HPI Reason for consult: sepsis,Group B strep He presents from facility for worsening left foot swelling and purple fifth toe. Also ,open wound right foot as well. He has blood culture Group B strep x 2 from 06/26. I had seen him one year ago with right foot infection. Review of Systems 2 Review of Systems: Yes all other systems are reviewed and are negative PMFSH Past Medical History Medical History Acute osteomyelitis of right foot Nausea and vomiting Bacteremia Bilateral hand pain Right knee pain Hypovitaminosis D Right foot pain Left foot pain Infection of penis Hyponatremia Hyperkalemia Diabetic ketoacidosis Acute kidney injury Autoimmune thyroiditis Obesity due to excess calories Type 2 diabetes mellitus with hyperglycemia, with long-term current use of insulin CHF (congestive heart failure) Cognitive developmental delay Proteinuria Type 2 diabetes mellitus with other diabetic kidney complication Essential hypertension Hyperlipidemia LDL goal <100 Edema Hyperlipidemia Cataracts, both eyes HTN (hypertension) Hypothyroid Diabetes Family History Family History Father HTN (hypertension) Mother Diabetes mellitus Maternal Grandmother Diabetes mellitus Family history: reviewed and not pertinent Surgical History Surgical History S/P split thickness skin graft (07/10/21) Hx laparoscopic cholecystectomy (10/16/22) 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 Hx of removal of cyst Hx of cataract surgery Social History Social History Household Members: Friend(s) Household Members Other:: [facility] Housing: Apartment Housing Other:: SNF Do you presently have visiting nurse or other home services: No Unable to assess alcohol history related to: Unknown Alcohol intake: never Patient Tobacco Use Status: Never used Tobacco e-Cigarette/Vaping Use: Never Used Second Hand Smoke Exposure: No Substance Use Type: Caffiene Advance Directives Date on File: 07/25/23 service: No Current occupational status: disabled Cognitive needs: Yes Hearing needs: No Vision needs: No Meds Allergies Allergy/AdvReac Type Severity Reaction Status Date / Time atorvastatin [ATORVASTATIN] Allergy Unknown skin Verified 06/26/24 15:59 eruption Active Medications: Current Medications Acetaminophen (Acetaminophen 325 Mg Tablet) 650 mg PO Q6H PRN PRN Reason: Pain, Mild 1-3,fever,headache Bisacodyl (Bisacodyl 10 Mg Supp.Rect) 10 mg LA DAILY PRN PRN Reason: Constipation Calcium Carbonate (Calcium Carbonate 750 Mg Tab.Chew) 750 mg PO Q4H PRN PRN Reason: Heartburn Ezetimibe (Ezetimibe 10 Mg Tablet) 10 mg PO DAILY [facility] Last Admin: 06/30/24 08:03 Dose: 10 mg Enoxaparin Sodium (Enoxaparin Sodium 40 Mg/0.4 Ml Syringe) 40 mg SUBCUT Q24H [facility] Last Admin: 06/30/24 21:39 Dose: 40 mg Escitalopram Oxalate (Escitalopram Oxalate 10 Mg Tablet) 10 mg PO DAILY [facility] Last Admin: 06/30/24 08:02 Dose: 10 mg Fenofibrate (Fenofibrate 54 Mg Tablet) 54 mg PO DAILY [facility] Last Admin: 06/30/24 08:03 Dose: 54 mg Furosemide (Furosemide 20 Mg/2 Ml Vial) 20 mg IVPUSH BID@0900,1800 [facility]; Protocol Last Admin: 06/30/24 18:11 Dose: 20 mg Glucose (Glucose Gel 15 Gm Gel..Gram.) 15 gm PO Q15M PRN; Protocol PRN Reason: per Hypoglycemia Standing Ord. Dextrose (D10) 250 mls @ 750 mls/hr IV Q15M PRN; Protocol PRN Reason: per Hypoglycemia Standing Ord. Vancomycin HCl 1,000 mg/ (Sodium Chloride) 270 mls @ 270 mls/hr IV Q12H [facility] Last Infusion: 06/30/24 19:19 Dose: Infused Insulin Glargine (Insulin Glargine,Hum.Rec.Anlog 100 Unit/Ml 10 Ml Vial) 10 unit SUBCUT DAILY [facility] Last Admin: 06/30/24 08:01 Dose: 10 unit Insulin Human Lispro (Insulin Lispro 100 Unit/Ml 3 Ml Vial) 0 unit SUBCUT QIDACHS [facility]; Protocol Last Admin: 06/30/24 21:39 Dose: 4 unit Levothyroxine Sodium (Levothyroxine Sodium 112 Mcg Tablet) 112 mcg PO DAILY@0600 [facility] Last Admin: 06/30/24 05:52 Dose: 112 mcg Levothyroxine Sodium (Levothyroxine Sodium 25 Mcg Tablet) 25 mcg PO DAILY@0600 [facility] Last Admin: 06/30/24 05:52 Dose: 25 mcg Magnesium Hydroxide (Milk Of Magnesia 30 Ml Oral.Susp) 30 ml PO DAILY PRN PRN Reason: Constipation Magnesium Hydroxide (Milk Of Magnesia 30 Ml Oral.Susp) 30 ml PO DAILY PRN PRN Reason: Constipation Melatonin (Melatonin 3 Mg Tablet) 6 mg PO BEDTIME PRN PRN Reason: Insomnia Ondansetron HCl (Ondansetron Hcl 4 Mg/2 Ml Vial) 4 mg IVPUSH Q8H PRN PRN Reason: Nausea and Vomiting Pharmacy Consult (Consult Rx Vancomycin Dosing) 1 each MISCELLANE DAILY PRN PRN Reason: Consult order Sodium Biphosphate/Sodium Phosphate (Sodium Phosphate,[place]-Dibasic 133 Ml Enema) 118 ml LA DAILY PRN PRN Reason: Constipation Sodium Chloride (0.9 % Sodium Chloride Flush 3 Ml Syringe) 3 ml IVFLUSH QSHIFT [facility] Last Admin: 06/30/24 21:39 Dose: 3 ml Vitamin D (Cholecalciferol (Vitamin D3) 25 Mcg Tablet) 50 mcg PO DAILY [facility] Last Admin: 06/30/24 08:03 Dose: 50 mcg Home Medications ?Medication ?Instructions ?Recorded ?Confirmed ?Last Taken ?Type metformin 500 mg tablet 750 mg PO DAILY 06/20/22 06/26/24 06/20/22 History amlodipine 10 mg tablet 10 mg PO DAILY 10/12/22 06/26/24 07/10/23 History cholecalciferol (vitamin D3) 50 50 mcg PO DAILY 10/12/22 06/26/24 Unknown History mcg (2,000 unit) capsule escitalopram oxalate 10 mg tablet 10 mg PO DAILY 10/12/22 06/26/24 Unknown History ezetimibe 10 mg tablet 10 mg PO DAILY 10/12/22 06/26/24 Unknown History fenofibrate 54 mg tablet 54 mg PO DAILY 10/12/22 06/26/24 Unknown History insulin degludec 200 unit/mL (3 20 unit subcut DAILY 10/12/22 06/26/24 Unknown History mL) subcutaneous pen (Tresiba FlexTouch U-200 insulin) lisinopril 10 mg tablet 10 mg PO DAILY 10/12/22 06/26/24 Unknown History ondansetron HCl 4 mg tablet 4 mg PO Q8H PRN Nausea And Vomiting 10/12/22 06/26/24 Unknown History simvastatin 40 mg tablet 40 mg PO BEDTIME 10/12/22 06/26/24 Unknown History acetaminophen 325 mg tablet 650 mg PO Q4H PRN Fever Or Pain 10/13/22 06/26/24 Unknown History bisacodyl 10 mg rectal suppository 10 mg LA DAILY PRN Constipation 10/13/22 06/26/24 Unknown History magnesium hydroxide 400 mg/5 mL 30 ml PO DAILY PRN Constipation 10/13/22 06/26/24 Unknown History oral suspension (Milk of Magnesia) sodium phosphates 19 gram-7 118 ml LA DAILY PRN Constipation 10/13/22 06/26/24 Unknown History gram/118 mL enema (Fleet Enema) ammonium lactate 12 % topical cream 1 appl topical DAILY 07/10/23 06/26/24 Unknown History insulin lispro 100 unit/mL See Protocol subcut QIDACHS 07/10/23 06/26/24 Unknown History subcutaneous solution loperamide 2 mg tablet 2 mg PO Q4H PRN Loose Stool 07/18/23 06/26/24 Unknown History levothyroxine 137 mcg tablet 137 mcg PO DAILY@0600 06/26/24 06/26/24 Unknown History metronidazole 500 mg tablet 500 mg DAILY wound 06/26/24 06/26/24 Unknown History tirzepatide 5 mg/0.5 mL 5 mg subcut TH 06/26/24 06/26/24 Unknown History subcutaneous pen injector (Andrewunsuero) Physical Exam 2 Vital Signs: Vital Signs: Last Vital Signs Temp 97.7 F 06/30/24 22:31 Pulse 85 06/30/24 22:31 Resp 18 06/30/24 22:31 BP 163/81 H 06/30/24 22:31 Pulse Ox 95 06/30/24 19:05 O2 Del Method Nasal Cannula 06/30/24 19:05 O2 Flow Rate 5 06/30/24 19:05 BMI result Body Mass Index 33.4 Const: General: cooperative HEENT: Head: Yes normal to inspection Face and sinus: Yes normal facial exam Mouth: Normal oral and palatal mucosa present Teeth and gingiva: d entition normal Eyes: General: appearance normal, both eyes and all related structures P upils: Equal, round and reactive pupils present Resp: Effort & Inspection: normal respiratory effort Cardio: Rate: regular rate Rhythm: regular rhythm GI: Palpation (GI): Soft to palpation and nontender : General: Yes no CVA tenderness Back/Spine/Pelvis: Back: no CVA tenderness Skin: General skin exam: no rashes or lesions noted Neuro: General: moves all extremities Cranial nerves: Yes Equal, round and reactive pupils present Extrem: Other: right stump ulcer left foot swelling dorsum and purple fifth toe neuropathy General: Yes normal to inspection Psych: Appearance: grossly normal Results Labs 06/30/24 06:12 06/30/24 09:06 Labs: Short CBC 06/30/24 Range/Units 06:12 WBC 11.6 H (4.8-10.8) X10*3/uL Hgb 7.1 L (14.0-18.0) g/dl Hct 22.5 L (42.0-52.0) % Plt Count 343 (160-400) X10*3/uL BMP 06/30/24 06/30/24 06:12 09:06 Sodium 137 Potassium 4.7 D Chloride 114 H Carbon Dioxide 16 L BUN 22 H Creatinine 1.33 1.34 Calcium 8.0 L Microbiology Microbiology Results: Microbiology 06/26/24 16:17 Blood - Venous Blood Culture - Final Strep agalactiae (Grp B) 06/26/24 16:12 Blood - Venous Blood Culture - Final Strep agalactiae (Grp B) Assessment and Plan (1) Diabetic foot ulcer: Status: Acute (2) Acute respiratory failure with hypoxia: Status: Acute (3) Severe sepsis: Status: Acute Plan He has sepsis with tachycardia and leukocytosis. Group B strep source likely foot not lung,MRI shows metatarsal OM left. Agree with Surgery amputation and debridement. Would give Ceftriaxone and flagyl. Probable receive one week Flagyl and 6 weeks IV Ceftriaxone if some infected bone still able to be left in place to help preserve foot integrity (i.e. doesnt need transmet). Check echo check endocarditis if not done especially with effusions ?CHF. Address effusions check culture also if drained.
[2024-06-30] MEDS: metroNIDAZOLE 500 MG TABLET PO ×2 (23:32)
[2024-06-30] MEDS: cefTRIAXone sodium 2 GM VIAL IVPUSH (23:32)
[2024-07-01 04:00] VITALS: BP 122/70; PULSE 78; RESP 16; TEMP 36; O2SAT 93
[2024-07-01] MEDS: Levothyroxine Sodium 112 MCG TABLET PO (05:30)
[2024-07-01] MEDS: Levothyroxine Sodium 25 MCG TABLET PO (05:30)
[2024-07-01 06:16] LABS: Creatinine Clr Calc Pharmacy 76.7; Estimated Glomerular Filt Rate 60; Hematocrit 26.2 % (42.0-52.0); Hemoglobin 8.7 g/dl (14.0-18.0); Mean Corpuscular HGB Conc 33.2 g/dl (31.0-36.0); Mean Corpuscular Hemoglobin 27.8 pg (27.0-33.0); Mean Corpuscular Volume 83.7 fL (80.0-98.0); Mean Platelet Volume 9.2 fL (9.4-12.4); Platelet Count 410 X10*3/uL (160-400); Red Blood Count 3.13 X10*6/uL (4.60-5.80); Red Cell Distribution Width 13.5 % (11.0-16.0); White Blood Count 11.9 X10*3/uL (4.8-10.8)
[2024-07-01 07:33] VITALS: BP 138/76; PULSE 82; RESP 18; TEMP 36.2; O2SAT 96
[2024-07-01 07:40] LABS: Glucose, Whole Blood 173 mg/dL (60-115)
--- NOTE | 2024-07-01 07:56 | P.PNIM_ITS ---
Subjective Subjective Date of Service: 07/01/24 Review of Systems Follow up foot wound denied pain very vague about previous amputation surgery Physical Exam 2 Vital Signs: Vital Signs: Last Vital Signs Temp 97.1 F 07/01/24 07:33 Pulse 82 07/01/24 07:33 Resp 18 07/01/24 07:33 BP 138/76 07/01/24 07:33 Pulse Ox 96 07/01/24 07:33 O2 Del Method Nasal Cannula 07/01/24 07:33 O2 Flow Rate 3 07/01/24 07:33 BMI result Body Mass Index 33.4 Appearing in no acute distress lung sounds are clear to auscultation heart regular rate rhythm, clear S1, S2 positive bowel sounds, abdomen is soft, nontender neuro patient is alert x3, no focal deficits Objective Data Active Medications Acetaminophen (Acetaminophen 325 Mg Tablet) 650 mg PO Q6H PRN PRN Reason: Pain, Mild 1-3,fever,headache Bisacodyl (Bisacodyl 10 Mg Supp.Rect) 10 mg [place] DAILY PRN PRN Reason: Constipation Calcium Carbonate (Calcium Carbonate 750 Mg Tab.Chew) 750 mg PO Q4H PRN PRN Reason: Heartburn Ceftriaxone Sodium (Ceftriaxone Sodium 2 Gm Vial) 2 gm IVPUSH 2200 [facility] Ezetimibe (Ezetimibe 10 Mg Tablet) 10 mg PO DAILY [facility] Last Admin: 06/30/24 08:03 Dose: 10 mg Documented By: DALIA Enoxaparin Sodium (Enoxaparin Sodium 40 Mg/0.4 Ml Syringe) 40 mg SUBCUT Q24H [facility] Last Admin: 06/30/24 21:39 Dose: 40 mg Documented By: PAT Escitalopram Oxalate (Escitalopram Oxalate 10 Mg Tablet) 10 mg PO DAILY [facility] Last Admin: 06/30/24 08:02 Dose: 10 mg Documented By: DALIA Fenofibrate (Fenofibrate 54 Mg Tablet) 54 mg PO DAILY [facility] Last Admin: 06/30/24 08:03 Dose: 54 mg Documented By: DALIA Furosemide (Furosemide 20 Mg/2 Ml Vial) 20 mg IVPUSH BID@0900,1800 [facility]; Protocol Last Admin: 06/30/24 18:11 Dose: 20 mg Documented By: DALIA Glucose (Glucose Gel 15 Gm Gel..Gram.) 15 gm PO Q15M PRN; Protocol PRN Reason: per Hypoglycemia Standing Ord. Dextrose (D10) 250 mls @ 750 mls/hr IV Q15M PRN; Protocol PRN Reason: per Hypoglycemia Standing Ord. Insulin Glargine (Insulin Glargine,Hum.Rec.Anlog 100 Unit/Ml 10 Ml Vial) 10 unit SUBCUT DAILY [facility] Last Admin: 06/30/24 08:01 Dose: 10 unit Documented By: DALIA Insulin Human Lispro (Insulin Lispro 100 Unit/Ml 3 Ml Vial) 0 unit SUBCUT QIDACHS [facility]; Protocol Last Admin: 06/30/24 21:39 Dose: 4 unit Documented By: PAT Levothyroxine Sodium (Levothyroxine Sodium 112 Mcg Tablet) 112 mcg PO DAILY@0600 [facility] Last Admin: 07/01/24 05:30 Dose: 112 mcg Documented By: PAT Levothyroxine Sodium (Levothyroxine Sodium 25 Mcg Tablet) 25 mcg PO DAILY@0600 [facility] Last Admin: 07/01/24 05:30 Dose: 25 mcg Documented By: PAT Magnesium Hydroxide (Milk Of Magnesia 30 Ml Oral.Susp) 30 ml PO DAILY PRN PRN Reason: Constipation Melatonin (Melatonin 3 Mg Tablet) 6 mg PO BEDTIME PRN PRN Reason: Insomnia Metronidazole (Metronidazole 500 Mg Tablet) 500 mg PO Q12H [facility] Last Admin: 06/30/24 23:32 Dose: 500 mg Documented By: PAT Ondansetron HCl (Ondansetron Hcl 4 Mg/2 Ml Vial) 4 mg IVPUSH Q8H PRN PRN Reason: Nausea and Vomiting Pharmacy Consult (Consult Rx Vancomycin Dosing) 1 each [place] DAILY PRN PRN Reason: Consult order Sodium Biphosphate/Sodium Phosphate (Sodium Phosphate,[place]-Dibasic 133 Ml Enema) 118 ml [place] DAILY PRN PRN Reason: Constipation Sodium Chloride (0.9 % Sodium Chloride Flush 3 Ml Syringe) [facility] Last Admin: 06/30/24 21:39 Dose: 3 ml Documented By: PAT Vitamin D (Cholecalciferol (Vitamin D3) 25 Mcg Tablet) 50 mcg PO DAILY [facility] Last Admin: 06/30/24 08:03 Dose: 50 mcg Documented By: DALIA Labs 07/01/24 05:49 07/01/24 05:49 Labs: Laboratory Results - last 24 hr 06/30/24 06/30/24 06/30/24 09:06 11:09 16:09 MCV MCH MCHC RDW Plt Count MPV Absolute Nucleated RBC Nucleated RBC % (auto) Anion Gap 12 Estim Creat Clear Calc 72.1 Estimated GFR 56 POC Glucose 182 H Random Glucose 186 H Calcium 8.0 L Ferritin 557 H Random Vancomycin 13.7 L Blood Type Antibody Screen Crossmatch 06/30/24 06/30/24 06/30/24 16:19 17:00 20:44 MCV MCH MCHC RDW Plt Count MPV Absolute Nucleated RBC Nucleated RBC % (auto) Anion Gap Estim Creat Clear Calc Estimated GFR POC Glucose 204 H 207 H Random Glucose Calcium Ferritin Random Vancomycin Blood Type A Positive Antibody Screen NEGATIVE Crossmatch See Detail 07/01/24 07/01/24 05:49 07:31 MCV 83.7 MCH 27.8 MCHC 33.2 RDW 13.5 Plt Count 410 H MPV 9.2 L Absolute Nucleated RBC 0.000 Nucleated RBC % (auto) 0.0 Anion Gap Estim Creat Clear Calc 76.7 Estimated GFR 60 POC Glucose 173 H Random Glucose Calcium Ferritin Random Vancomycin Blood Type Antibody Screen Crossmatch Assessment and Plan (1) Diabetic foot ulcer: Status: Acute Plan 53-year-old Georgian-speaking male with pertinent history of insulin-dependent diabetes mellitus with neuropathy, hypertension, hyperlipidemia, hypothyroidism, mood disorder, gastroesophageal reflux disease, CKD who presents to the emergency department for evaluation of left foot infection. Normocytic anemia Likely secondary to chronic kidney disease and low iron No active bleeding discussed with heme> tx 1 units PRBC (06/30/24) and start iron supp stable HH today Bilateral pleural effusion with hypoxia and fluid oeverload Discussed with Pulm, seems more like fluid overload echo with ef 70% continue diurese lasix 20 mg BID monitor intake and output closely Continue supplemental oxygen to keep oxygen saturation greater than 90% Severe sepsis due to infected diabetic foot ulcer, gangrenous 5th toe and purulent cellulitis sepsis resolved Resuscitated with IV crystalloids. IV vancomycin and Zosyn initially, ID rec Rocephin and Flagyl, 1 week of Flagyl and 6 weeks of IV Rocephin foot MRI showing definitive Osteomyelitis Consulting General surgery>plan for amputation of 4,5th toe and debridement Strep agalactiae group B Rocephin and Flagyl ID following JJ and CKD 3b Monitor with crystalloid resuscitation. Avoid nephrotoxins. Insulin-dependent diabetes mellitus with hyperglycemia Sliding scale, ADA diet Acute lactic acidosis due to sepsis Elevated transaminases due to sepsis Hypertension Initially held antihypertensives in the setting of sepsis. Resume resume lisinopril and Norvasc Mood disorder Continue home mood stabilizers Mixed hyperlipidemia On statin and fenofibrate Hypothyroidism On Synthroid DVT prophylaxis: Lovenox Full code Quality Stroke Does the patient have a stroke diagnosis?: No VTE Prior VTE?: No VTE Risk Level:: Medical - moderate - high VTE Device Contraindication: Treatment Not Indicated VTE Drug Contraindication: N/A - Med Ordered
[2024-07-01] MEDS: Furosemide 20 MG/2 ML VIAL IVPUSH ×2 (08:45→17:21)
[2024-07-01] MEDS: Cholecalciferol (Vitamin D3) 25 MCG TABLET 50 MCG PO (08:45)
[2024-07-01] MEDS: Escitalopram Oxalate 10 MG TABLET PO (08:45)
[2024-07-01] MEDS: amLODIPine Besylate 10 MG TABLET PO (08:45)
[2024-07-01] MEDS: Ezetimibe 10 MG TABLET PO (08:45)
[2024-07-01] MEDS: Insulin Lispro 100 UNIT/ML 3 ML VIAL SUBCUT ×4 (08:45→20:37)
[2024-07-01] MEDS: Insulin Glargine,Hum.rec.anlog 100 UNIT/ML 10 ML VIAL 10 UNIT SUBCUT (08:45)
[2024-07-01] MEDS: 0.9 % Sodium Chloride Flush 3 ML SYRINGE IVFLUSH ×3 (08:46→20:37)
[2024-07-01] MEDS: lisinopriL 10 MG TABLET PO (08:46)
[2024-07-01] MEDS: Fenofibrate 54 MG TABLET PO (08:46)
[2024-07-01] MEDS: metroNIDAZOLE 500 MG TABLET PO ×2 (10:36→21:28)
[2024-07-01 11:27] LABS: Glucose, Whole Blood 242 mg/dL (60-115)
--- NOTE | 2024-07-01 11:56 | MHC.CM.PN ---
Per MD rounds patient not medically cleared for dc. CM will continue to follow.
[2024-07-01 15:24] VITALS: BP 160/74; PULSE 74; RESP 22; TEMP 36.3; O2SAT 96
[2024-07-01 16:18] LABS: Glucose, Whole Blood 232 mg/dL (60-115)
[2024-07-01 16:29] LABS: Vancomycin Random 9.8 mcg/mL (15-20)
[2024-07-01 19:25] VITALS: BP 166/87; PULSE 77; RESP 18; TEMP 36.2; O2SAT 97
[2024-07-01 19:47] LABS: Glucose, Whole Blood 266 mg/dL (60-115)
[2024-07-01] MEDS: Enoxaparin Sodium 40 MG/0.4 ML SYRINGE SUBCUT (20:37)
[2024-07-01] MEDS: cefTRIAXone sodium 2 GM VIAL IVPUSH (21:28)
[2024-07-02] VITALS (8 sets, daily range): BP systolic 137–169; BP diastolic 65–89; PULSE 72–79; RESP 12–18; TEMP 36.2–37.1; O2SAT 93–98
[2024-07-02] MEDS: Levothyroxine Sodium 112 MCG TABLET PO (05:43)
[2024-07-02] MEDS: Levothyroxine Sodium 25 MCG TABLET PO (05:43)
[2024-07-02 07:16] LABS: Creatinine Clr Calc Pharmacy 81.9; Estimated Glomerular Filt Rate > 60
[2024-07-02 07:46] LABS: Glucose, Whole Blood 227 mg/dL (60-115)
[2024-07-02 08:16] LABS: Hematocrit 28.1 % (42.0-52.0); Hemoglobin 9.2 g/dl (14.0-18.0); Mean Corpuscular HGB Conc 32.7 g/dl (31.0-36.0); Mean Corpuscular Hemoglobin 27.7 pg (27.0-33.0); Mean Corpuscular Volume 84.6 fL (80.0-98.0); Mean Platelet Volume 9.5 fL (9.4-12.4); Platelet Count 417 X10*3/uL (160-400); Red Blood Count 3.32 X10*6/uL (4.60-5.80); Red Cell Distribution Width 13.6 % (11.0-16.0); White Blood Count 9.4 X10*3/uL (4.8-10.8)
[2024-07-02 08:22] LABS: Anion Gap 13 (12-20)
[2024-07-02 08:25] LABS: Blood Urea Nitrogen 19 mg/dL (9-16); Calcium 8.7 mg/dL (8.4-10.2); Carbon Dioxide 25 mmol/L (22-29); Chloride 104 mmol/L (96-108); Glucose Random 228 mg/dL (60-115); Sodium 138 mmol/L (135-145)
[2024-07-02] MEDS: Insulin Lispro 100 UNIT/ML 3 ML VIAL SUBCUT ×4 (08:26→21:07)
[2024-07-02] MEDS: 0.9 % Sodium Chloride Flush 3 ML SYRINGE IVFLUSH ×3 (08:26→21:07)
[2024-07-02] MEDS: Cholecalciferol (Vitamin D3) 25 MCG TABLET 50 MCG PO (08:28)
[2024-07-02] MEDS: Furosemide 20 MG/2 ML VIAL IVPUSH ×2 (08:28→17:24)
[2024-07-02] MEDS: Insulin Glargine,Hum.rec.anlog 100 UNIT/ML 10 ML VIAL 10 UNIT SUBCUT (08:28)
[2024-07-02] MEDS: Escitalopram Oxalate 10 MG TABLET PO (08:28)
[2024-07-02] MEDS: lisinopriL 10 MG TABLET PO (08:28)
[2024-07-02] MEDS: Fenofibrate 54 MG TABLET PO (08:28)
[2024-07-02] MEDS: Ezetimibe 10 MG TABLET PO (08:28)
[2024-07-02] MEDS: amLODIPine Besylate 10 MG TABLET PO (08:28)
--- NOTE | 2024-07-02 08:42 | P.PNGS_ITS ---
Subjective Subjective Date of Service: 07/02/24 Interval history: I reviewed the findings on MRI and physical examination with the patient's sister and niece yesterday. Explain the need for amputation of the left 4th and 5th toes as well as debridement of the right TMA stump. Patient denies any new symptoms. Physical Exam 2 Vital Signs: Vital Signs: Last Vital Signs Temp 98.7 F 07/02/24 08:10 Pulse 74 07/02/24 08:10 Resp 12 07/02/24 08:10 BP 169/89 H 07/02/24 08:28 Pulse Ox 94 07/02/24 08:10 O2 Del Method Nasal Cannula 07/02/24 08:10 O2 Flow Rate 3 07/02/24 08:10 BMI result Body Mass Index 33.4 Const: General: comfortable Nutritional Appearance: well nourished O rientation/consciousness: patient oriented x3 Resp: Effort & Inspection: normal respiratory effort Neuro: General: patient oriented x3 Extrem: Other: Gangrenous changes of the 5th toe as well as obvious infection of the 4th toe extending into the plantar surface as well as ventral surface. Decreased erythema noted overall. No tenderness to palpation. Objective Data Active Medications Acetaminophen (Acetaminophen 325 Mg Tablet) 650 mg PO Q6H PRN PRN Reason: Pain, Mild 1-3,fever,headache Amlodipine Besylate (Amlodipine Besylate 10 Mg Tablet) 10 mg PO DAILY [facility]; Protocol Last Admin: 07/02/24 08:28 Dose: 10 mg Documented By: BELKYS Bisacodyl (Bisacodyl 10 Mg Supp.Rect) 10 mg [place] DAILY PRN PRN Reason: Constipation Calcium Carbonate (Calcium Carbonate 750 Mg Tab.Chew) 750 mg PO Q4H PRN PRN Reason: Heartburn Ceftriaxone Sodium (Ceftriaxone Sodium 2 Gm Vial) 2 gm IVPUSH 2200 [facility] Last Admin: 07/01/24 21:28 Dose: 2 gm Documented By: RAQUEL Ezetimibe (Ezetimibe 10 Mg Tablet) 10 mg PO DAILY [facility] Last Admin: 07/02/24 08:28 Dose: 10 mg Documented By: BELKYS Enoxaparin Sodium (Enoxaparin Sodium 40 Mg/0.4 Ml Syringe) 40 mg SUBCUT Q24H [facility] Last Admin: 07/01/24 20:37 Dose: 40 mg Documented By: RAQUEL Escitalopram Oxalate (Escitalopram Oxalate 10 Mg Tablet) 10 mg PO DAILY [facility] Last Admin: 07/02/24 08:28 Dose: 10 mg Documented By: BELKYS Fenofibrate (Fenofibrate 54 Mg Tablet) 54 mg PO DAILY [facility] Last Admin: 07/02/24 08:28 Dose: 54 mg Documented By: BELKYS Furosemide (Furosemide 20 Mg/2 Ml Vial) 20 mg IVPUSH BID@0900,1800 [facility]; Protocol Last Admin: 07/02/24 08:28 Dose: 20 mg Documented By: BELKYS Glucose (Glucose Gel 15 Gm Gel..Gram.) 15 gm PO Q15M PRN; Protocol PRN Reason: per Hypoglycemia Standing Ord. Dextrose (D10) 250 mls @ 750 mls/hr IV Q15M PRN; Protocol PRN Reason: per Hypoglycemia Standing Ord. Insulin Glargine (Insulin Glargine,Hum.Rec.Anlog 100 Unit/Ml 10 Ml Vial) 10 unit SUBCUT DAILY [facility] Last Admin: 07/02/24 08:28 Dose: 10 unit Documented By: BELKYS Insulin Human Lispro (Insulin Lispro 100 Unit/Ml 3 Ml Vial) 0 unit SUBCUT QIDACHS [facility]; Protocol Last Admin: 07/02/24 08:26 Dose: 4 unit Documented By: BELKYS Levothyroxine Sodium (Levothyroxine Sodium 112 Mcg Tablet) 112 mcg PO DAILY@0600 [facility] Last Admin: 07/02/24 05:43 Dose: 112 mcg Documented By: RAQUEL Levothyroxine Sodium (Levothyroxine Sodium 25 Mcg Tablet) 25 mcg PO DAILY@0600 [facility] Last Admin: 07/02/24 05:43 Dose: 25 mcg Documented By: RAQUEL Lisinopril (Lisinopril 10 Mg Tablet) 10 mg PO DAILY [facility]; Protocol Last Admin: 07/02/24 08:28 Dose: 10 mg Documented By: BELKYS Magnesium Hydroxide (Milk Of Magnesia 30 Ml Oral.Susp) 30 ml PO DAILY PRN PRN Reason: Constipation Melatonin (Melatonin 3 Mg Tablet) 6 mg PO BEDTIME PRN PRN Reason: Insomnia Metronidazole (Metronidazole 500 Mg Tablet) 500 mg PO Q12H [facility] Last Admin: 07/01/24 21:28 Dose: 500 mg Documented By: RAQUEL Ondansetron HCl (Ondansetron Hcl 4 Mg/2 Ml Vial) 4 mg IVPUSH Q8H PRN PRN Reason: Nausea and Vomiting Sodium Biphosphate/Sodium Phosphate (Sodium Phosphate,[place]-Dibasic 133 Ml Enema) 118 ml [place] DAILY PRN PRN Reason: Constipation Sodium Chloride (0.9 % Sodium Chloride Flush 3 Ml Syringe) 3 ml IVFLUSH QSHIFT [facility] Last Admin: 07/02/24 08:26 Dose: 3 ml Documented By: BELKYS Vitamin D (Cholecalciferol (Vitamin D3) 25 Mcg Tablet) 50 mcg PO DAILY [facility] Last Admin: 07/02/24 08:28 Dose: 50 mcg Documented By: BELKYS Labs 07/02/24 05:42 07/02/24 05:42 Labs: Laboratory Results - last 24 hr 07/01/24 07/01/24 07/01/24 11:21 15:56 16:14 MCV MCH MCHC RDW Plt Count MPV Absolute Nucleated RBC Nucleated RBC % (auto) Hold Purple Top Anion Gap Estim Creat Clear Calc Estimated GFR POC Glucose 242 H 232 H Random Glucose Calcium Random Vancomycin 9.8 L 07/01/24 07/02/24 07/02/24 19:31 05:42 07:29 MCV 84.6 MCH 27.7 MCHC 32.7 RDW 13.6 Plt Count 417 H MPV 9.5 Absolute Nucleated RBC 0.000 Nucleated RBC % (auto) 0.0 Hold Purple Top SEE NOTE Anion Gap 13 Estim Creat Clear Calc 81.9 Estimated GFR > 60 POC Glucose 266 H 227 H Random Glucose 228 H Calcium 8.7 D Random Vancomycin Procedures Date of Service Date of Service: 07/02/24 Progress Note: A&P Assessment and plan (1) Diabetic foot ulcer: Status: Acute (2) Pleural effusion: Status: Acute Plan 53-year-old male patient presenting with prior history of diabetes mellitus type 2, found to have osteomyelitis of the 4th and 5th toe by MRI and gangrenous changes to the skin of the 5th toe. Patient is now medically cleared for surgery. I reviewed the procedure, risks, and alternatives in detail with the patient, his sister and niece, and they consent to a left foot 4th and 5th toe amputation, right foot debridement. They understand that he may not heal his wounds and made require further surgery in the future. He has been added onto the operative schedule for tomorrow. Time Spent With Patient Time: Total time managing care of this patient today ____ minutes. Quality Stroke Does the patient have a stroke diagnosis?: No VTE Prior VTE?: No VTE Risk Level:: Medical - moderate - high VTE Device Contraindication: Treatment Not Indicated VTE Drug Contraindication: N/A - Med Ordered
[2024-07-02] MEDS: metroNIDAZOLE 500 MG TABLET PO ×2 (10:37→21:07)
--- NOTE | 2024-07-02 11:19 | HO.WOUND ---
Wound Consult: Follow up 53yr old?male admitted to [facility] on [place]26/24 - See progress notes and H&P for detailed history.? Wound consult follow up for Left foot and right foot.? Chart review reveals patient to OR tomorrow 07/03/[address] Dempsey previously delayed due to medical clearance see chart for details. Will defer topical treatments to General surgery after procedure. Patient agreeable to assessment and photo documentation.? No new topical recommendation needed at this time see below todays assessment. Right Plantar foot 06/29/24 07/02/24 Right Residual foot site Etiology: ?Diabetic Wound ?Present on Admission Wound Bed: imrpoved wound bed pink red moist wound bed with less slough noted Drainage / Odor: yellow osman drainage no odor noted - moderate amount Edges: ? epibole Alesia wound: Maceration resolved - moist red pink erythema dry callused tissue - No Induration, Fluctuance noted Pain: denies Goals of Treatment: ? Durafiber AG for moisture management and antimicrobial properties Left Foot 06/29/24 Left Foot 07/02/24 Improved drainage control - continues to need surgical intervention Etiology: ?Diabetic Wound ?Present on Admission Wound Bed: Necotic and slough noted Drainage / Odor: large amount of foul smelling drainage noted Edges: unattached and macerated Alesia wound: maceration improved dry flaking epidermal layers noted, erythema and swelling noted Pain: denies Goals of Treatment: ? Durafiber AG for moisture management and antimicrobial properties - defer to General surgery for debridement and treatment Recommendations: 1. Provide adequate and supplemental nutrition.? 2. When applicable maintain blood glucose levels per Providers order. 3. Left Foot - Defer to General Surgery Team. 4. Right foot - Elevate lower legs on pillows throughout the day. Cleanse with NS pay dry. Apply skin prep to periwound allow to dry. Apply Durafiber AG to wound bed cover with dry gauze, ABD pad and gauze wrap. Change every other day. Re-consult wound care Nurse for wound deterioration or wound changes.
[2024-07-02 11:34] LABS: Glucose, Whole Blood 332 mg/dL (60-115)
--- NOTE | 2024-07-02 16:04 | P.PNIM_ITS ---
Subjective Subjective Date of Service: 07/02/24 Interval History: seen and examined this morning follow up for left foot infection, fluid overload awake, alert no complaints, denies sob Review of Systems Review of Systems: Yes all other systems are reviewed and are negative Constitutional Constitutional: Denies chills and Denies fever(s) Cardiovascular Cardiovascular: Denies chest pain and Denies dyspnea Respiratory Respiratory: Denies dyspnea Physical Exam 2 Vital Signs: Vital Signs: Last Vital Signs Temp 97.6 F 07/02/24 15:53 Pulse 74 07/02/24 15:53 Resp 18 07/02/24 15:53 BP 137/65 07/02/24 15:53 Pulse Ox 98 07/02/24 15:53 O2 Del Method Nasal Cannula 07/02/24 15:53 O2 Flow Rate 3 07/02/24 15:53 BMI result Body Mass Index 33.4 Const: General: cooperative, comfortable, alert and awake Nutritional Appearance: overweight Resp: Effort & Inspection: normal respiratory effort, able to speak in complete sentences, no respiratory distress and no use of accessory muscles Cardio: Rate: regular rate GI: Inspection: No distended Palpation (GI): Soft to palpation Skin: Other: b/l feet wrapped in dressings with some saturation; see wound care notes for updated pictures Neuro: General: moves all extremities and CN's II-XI intact bilaterally Objective Data Active Medications Acetaminophen (Acetaminophen 325 Mg Tablet) 650 mg PO Q6H PRN PRN Reason: Pain, Mild 1-3,fever,headache Amlodipine Besylate (Amlodipine Besylate 10 Mg Tablet) 10 mg PO DAILY [facility]; Protocol Last Admin: 07/02/24 08:28 Dose: 10 mg Documented By: BELKYS Bisacodyl (Bisacodyl 10 Mg Supp.Rect) 10 mg [place] DAILY PRN PRN Reason: Constipation Calcium Carbonate (Calcium Carbonate 750 Mg Tab.Chew) 750 mg PO Q4H PRN PRN Reason: Heartburn Ceftriaxone Sodium (Ceftriaxone Sodium 2 Gm Vial) 2 gm IVPUSH 2200 [facility] Last Admin: 07/01/24 21:28 Dose: 2 gm Documented By: RAQUEL Ezetimibe (Ezetimibe 10 Mg Tablet) 10 mg PO DAILY [facility] Last Admin: 07/02/24 08:28 Dose: 10 mg Documented By: BELKYS Enoxaparin Sodium (Enoxaparin Sodium 40 Mg/0.4 Ml Syringe) 40 mg SUBCUT Q24H [facility] Last Admin: 07/01/24 20:37 Dose: 40 mg Documented By: RAQUEL Escitalopram Oxalate (Escitalopram Oxalate 10 Mg Tablet) 10 mg PO DAILY [facility] Last Admin: 07/02/24 08:28 Dose: 10 mg Documented By: BELKYS Fenofibrate (Fenofibrate 54 Mg Tablet) 54 mg PO DAILY [facility] Last Admin: 07/02/24 08:28 Dose: 54 mg Documented By: BELKYS Furosemide (Furosemide 20 Mg/2 Ml Vial) 20 mg IVPUSH BID@0900,1800 [facility]; Protocol Last Admin: 07/02/24 08:28 Dose: 20 mg Documented By: BELKYS Glucose (Glucose Gel 15 Gm Gel..Gram.) 15 gm PO Q15M PRN; Protocol PRN Reason: per Hypoglycemia Standing Ord. Dextrose (D10) 250 mls @ 750 mls/hr IV Q15M PRN; Protocol PRN Reason: per Hypoglycemia Standing Ord. Insulin Glargine (Insulin Glargine,Hum.Rec.Anlog 100 Unit/Ml 10 Ml Vial) 10 unit SUBCUT DAILY [facility] Last Admin: 07/02/24 08:28 Dose: 10 unit Documented By: BELKYS Insulin Human Lispro (Insulin Lispro 100 Unit/Ml 3 Ml Vial) 0 unit SUBCUT QIDACHS [facility]; Protocol Last Admin: 07/02/24 11:43 Dose: 8 unit Documented By: BELKYS Levothyroxine Sodium (Levothyroxine Sodium 112 Mcg Tablet) 112 mcg PO DAILY@0600 [facility] Last Admin: 07/02/24 05:43 Dose: 112 mcg Documented By: RAQUEL Levothyroxine Sodium (Levothyroxine Sodium 25 Mcg Tablet) 25 mcg PO DAILY@0600 [facility] Last Admin: 07/02/24 05:43 Dose: 25 mcg Documented By: RAQUEL Lisinopril (Lisinopril 10 Mg Tablet) 10 mg PO DAILY [facility]; Protocol Last Admin: 07/02/24 08:28 Dose: 10 mg Documented By: BELKYS Magnesium Hydroxide (Milk Of Magnesia 30 Ml Oral.Susp) 30 ml PO DAILY PRN PRN Reason: Constipation Melatonin (Melatonin 3 Mg Tablet) 6 mg PO BEDTIME PRN PRN Reason: Insomnia Metronidazole (Metronidazole 500 Mg Tablet) 500 mg PO Q12H [facility] Last Admin: 07/02/24 10:37 Dose: 500 mg Documented By: BELKYS Ondansetron HCl (Ondansetron Hcl 4 Mg/2 Ml Vial) 4 mg IVPUSH Q8H PRN PRN Reason: Nausea and Vomiting Sodium Biphosphate/Sodium Phosphate (Sodium Phosphate,[place]-Dibasic 133 Ml Enema) 118 ml MD DAILY PRN PRN Reason: Constipation Sodium Chloride (0.9 % Sodium Chloride Flush 3 Ml Syringe) 3 ml IVFLUSH QSHIFT [facility] Last Admin: 07/02/24 08:26 Dose: 3 ml Documented By: BELKYS Vitamin D (Cholecalciferol (Vitamin D3) 25 Mcg Tablet) 50 mcg PO DAILY [facility] Last Admin: 07/02/24 08:28 Dose: 50 mcg Documented By: BELKYS Labs 07/02/24 05:42 07/02/24 05:42 Labs: Laboratory Results - last 24 hr 07/01/24 07/01/24 07/01/24 15:56 16:14 19:31 MCV MCH MCHC RDW Plt Count MPV Absolute Nucleated RBC Nucleated RBC % (auto) Hold Purple Top Anion Gap Estim Creat Clear Calc Estimated GFR POC Glucose 232 H 266 H Random Glucose Calcium Random Vancomycin 9.8 L 07/02/24 07/02/24 07/02/24 05:42 07:29 11:18 MCV 84.6 MCH 27.7 MCHC 32.7 RDW 13.6 Plt Count 417 H MPV 9.5 Absolute Nucleated RBC 0.000 Nucleated RBC % (auto) 0.0 Hold Purple Top SEE NOTE Anion Gap 13 Estim Creat Clear Calc 81.9 Estimated GFR > 60 POC Glucose 227 H 332 H Random Glucose 228 H Calcium 8.7 D Random Vancomycin Assessment and Plan (1) Pleural effusion: Status: Acute (2) Diabetic foot ulcer: Status: Acute Plan This is a 53-year-old [place]-speaking male with history of insulin-dependent diabetes mellitus with neuropathy, hypertension, hyperlipidemia, hypothyroidism, mood disorder, gastroesophageal reflux disease, CKD, [place] who presents to the emergency department for evaluation of left foot infection found to have sepsis course complicated by fluid overload with respiratory failure, anemia and bacteremia Severe sepsis due to infected diabetic foot ulcer, gangrenous 5th toe and purulent cellulitis sepsis resolved MRI left foot with early osteo IV vancomycin and Zosyn initially, ID rec Rocephin and Flagyl, 1 week of Flagyl and 6 weeks of IV Rocephin will need PICC line, Consulting General surgery>plan for amputation of 4,5th toe and debridement of right TMA stump Strep agalactiae bacteremia due to foot infection continue IV Rocephin ID following repeat blood cultures ordered Normocytic anemia Likely secondary to chronic kidney disease and low iron No active bleeding discussed with heme> tx 1 units PRBC (06/30/24) and start iron supp stable HH today acute respiratory failure with hypoxia due to Bilateral pleural effusion from fluid overload Discussed with Pulm likely fluid overload from IVF. recommended against thoracentesis. echo with ef 70% preserved EF continue diurese lasix 20 mg BID monitor intake and output closely Continue supplemental oxygen to keep oxygen saturation greater than 90%, wean as tolerated JJ on CKD 3b resolved Insulin-dependent diabetes mellitus with hyperglycemia continue Sliding scale, ADA diet Hold metformin tresiba - converted to Lantus Elevated transaminases due to sepsis hold statin Hypertension Initially held antihypertensives in the setting of sepsis. Resumed lisinopril and Norvasc Mood disorder Continue home mood stabilizers Mixed hyperlipidemia On statin and fenofibrate, Zetia. Statin on hold Hypothyroidism On Synthroid DVT prophylaxis: Lovenox Full code Requires ongoing inpatient stay for treatment of foot infection, bacteremia requiring IV antibiotics and surgical intervention Quality Stroke Does the patient have a stroke diagnosis?: No VTE Prior VTE?: No VTE Risk Level:: Medical - moderate - high VTE Device Contraindication: Treatment Not Indicated VTE Drug Contraindication: N/A - Med Ordered
[2024-07-02 16:17] LABS: Glucose, Whole Blood 244 mg/dL (60-115)
[2024-07-02] MEDS: Acetaminophen 325 MG TABLET 650 MG PO (17:33)
[2024-07-02 20:26] LABS: Glucose, Whole Blood 267 mg/dL (60-115)
[2024-07-02] MEDS: cefTRIAXone sodium 2 GM VIAL IVPUSH (21:06)
[2024-07-03] VITALS (12 sets, daily range): BP systolic 108–160; BP diastolic 56–83; PULSE 67–80; RESP 18–24; TEMP 36–36.8; O2SAT 94–98
[2024-07-03] MEDS: Levothyroxine Sodium 25 MCG TABLET PO (05:27)
[2024-07-03] MEDS: Levothyroxine Sodium 112 MCG TABLET PO (05:27)
[2024-07-03 07:37] LABS: Glucose, Whole Blood 227 mg/dL (60-115)
--- NOTE | 2024-07-03 08:22 | MHC.SHP ---
Pre-Procedural Eval Section A - 24 Hr Update-Section A only Date of Service: 07/03/24 The patient is an INPATIENT: Yes Changes since office visit: Yes Patient answered all questions; No Cold of Flu in the past 2 weeks, No New Medical Problems and No Changes in Medication The patient has been examined within 24 hours of the surgical procedure. The History & Physical has been completed within 30 days and I have reviewed it.: Yes Section B - Complete if H&P > 30 days Chief Complaint: Bilateral pleural effusions Allergies: Allergies Allergy/AdvReac Type Severity Reaction Status Date / Time atorvastatin [ATORVASTATIN] Allergy Unknown skin Verified 06/26/24 15:59 eruption Plan Diagnosis/Plan: Unchanged I have reviewed the history and physical and performed a pertinent physical examination on my patient. No changes have occurred unless specified. Time Spent With Patient Time: Total time managing care of this patient today ____ minutes.
[2024-07-03] MEDS: lisinopriL 10 MG TABLET PO (09:44)
[2024-07-03] MEDS: Fenofibrate 54 MG TABLET PO (09:44)
[2024-07-03] MEDS: Escitalopram Oxalate 10 MG TABLET PO (09:44)
[2024-07-03] MEDS: Ezetimibe 10 MG TABLET PO (09:44)
[2024-07-03] MEDS: metroNIDAZOLE 500 MG TABLET PO ×2 (09:44→20:24)
[2024-07-03] MEDS: Cholecalciferol (Vitamin D3) 25 MCG TABLET 50 MCG PO (09:44)
[2024-07-03] MEDS: amLODIPine Besylate 10 MG TABLET PO (09:44)
[2024-07-03] MEDS: 0.9 % Sodium Chloride Flush 3 ML SYRINGE IVFLUSH ×3 (09:45→20:25)
--- NOTE | 2024-07-03 10:39 | MHC.CM.PN ---
Per MD rounds patient not medically cleared for dc. CM will continue to follow.
[2024-07-03 11:35] LABS: Glucose, Whole Blood 223 mg/dL (60-115)
--- NOTE | 2024-07-03 12:54 | HO.ANESPROP2 ---
HPI - Anesthesia Eval Consult details Narrative: for left 4th, 5th toe amputation, right foot I&D. [facility] Active Problems Active Problems: All Active Problems (Updated 06/30/24 @ 16:16 by Missy Mullins MD) Anemia (Acute) Acute respiratory failure with hypoxia (Acute) Pleural effusion (Acute) Acute kidney injury superimposed on CKD (Acute) Diabetic foot ulcer (Acute) Cellulitis (Acute) S/P laparoscopic cholecystectomy (Acute) Severe sepsis (Acute) Acute cholecystitis (Acute) Nausea and vomiting (Acute) Post-operative infection (Acute) Diabetic foot ulcer (Acute) Diabetic foot ulcer (Acute) Physical exam (Acute) Microalbuminuria (Acute) Bilateral hand pain (Acute) Right knee pain (Acute) Hypovitaminosis D (Acute) Right foot pain (Acute) Left foot pain (Acute) Hypoglycemia (Acute) Knee pain, chronic (Acute) Type 2 diabetes mellitus with hyperosmolar hyperglycemic state (HHS) (Acute) Autoimmune thyroiditis (Acute) Obesity due to excess calories (Acute) Type 2 diabetes mellitus with hyperglycemia, with long-term current use of insulin (Acute) Proteinuria (Acute) Essential hypertension (Acute) Hyperlipidemia LDL goal <100 (Acute) Past Medical History Medical History Acute osteomyelitis of right foot Nausea and vomiting Bacteremia Bilateral hand pain Right knee pain Hypovitaminosis D Right foot pain Left foot pain Infection of penis Hyponatremia Hyperkalemia Diabetic ketoacidosis Acute kidney injury Autoimmune thyroiditis Obesity due to excess calories Type 2 diabetes mellitus with hyperglycemia, with long-term current use of insulin CHF (congestive heart failure) Cognitive developmental delay Proteinuria Type 2 diabetes mellitus with other diabetic kidney complication Essential hypertension Hyperlipidemia LDL goal <100 Edema Hyperlipidemia Cataracts, both eyes HTN (hypertension) Hypothyroid Diabetes Family History Family History Father HTN (hypertension) Mother Diabetes mellitus Maternal Grandmother Diabetes mellitus Family history of problems with anesthesia: No Surgical History Surgical History S/P split thickness skin graft (07/10/21) Hx laparoscopic cholecystectomy (10/16/22) 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 Hx of removal of cyst Hx of cataract surgery History of Problems with Anesthesia: No Social History Social History Household Members: Friend(s) Household Members Other:: intermediate Housing: Apartment Housing Other:: SNF Do you presently have visiting nurse or other home services: No Unable to assess alcohol history related to: Unknown Alcohol intake: never Patient Tobacco Use Status: Never used Tobacco e-Cigarette/Vaping Use: Never Used Second Hand Smoke Exposure: No Substance Use Type: Caffiene Advance Directives Date on File: 07/25/23 service: No Current occupational status: disabled Cognitive needs: Yes Hearing needs: No Vision needs: No Meds Allergies Allergy/AdvReac Type Severity Reaction Status Date / Time atorvastatin [ATORVASTATIN] Allergy Unknown skin Verified 07/03/24 12:26 eruption Active Medications: Current Medications Acetaminophen (Acetaminophen 325 Mg Tablet) 650 mg PO Q6H PRN PRN Reason: Pain, Mild 1-3,fever,headache Last Admin: 07/02/24 17:33 Dose: 650 mg Amlodipine Besylate (Amlodipine Besylate 10 Mg Tablet) 10 mg PO DAILY [facility]; Protocol Last Admin: 07/03/24 09:44 Dose: 10 mg Bisacodyl (Bisacodyl 10 Mg Supp.Rect) 10 mg MT DAILY PRN PRN Reason: Constipation Calcium Carbonate (Calcium Carbonate 750 Mg Tab.Chew) 750 mg PO Q4H PRN PRN Reason: Heartburn Ceftriaxone Sodium (Ceftriaxone Sodium 2 Gm Vial) 2 gm IVPUSH 2200 [facility] Last Admin: 07/02/24 21:06 Dose: 2 gm Ezetimibe (Ezetimibe 10 Mg Tablet) 10 mg PO DAILY [facility] Last Admin: 07/03/24 09:44 Dose: 10 mg Enoxaparin Sodium (Enoxaparin Sodium 40 Mg/0.4 Ml Syringe) 40 mg SUBCUT Q24H [facility] Last Admin: 07/02/24 21:09 Dose: Not Given Escitalopram Oxalate (Escitalopram Oxalate 10 Mg Tablet) 10 mg PO DAILY [facility] Last Admin: 07/03/24 09:44 Dose: 10 mg Fenofibrate (Fenofibrate 54 Mg Tablet) 54 mg PO DAILY [facility] Last Admin: 07/03/24 09:44 Dose: 54 mg Furosemide (Furosemide 20 Mg/2 Ml Vial) 20 mg IVPUSH BID@0900,1800 [facility]; Protocol Last Admin: 07/02/24 17:24 Dose: 20 mg Glucose (Glucose Gel 15 Gm Gel..Gram.) 15 gm PO Q15M PRN; Protocol PRN Reason: per Hypoglycemia Standing Ord. Dextrose (D10) 250 mls @ 750 mls/hr IV Q15M PRN; Protocol PRN Reason: per Hypoglycemia Standing Ord. Insulin Glargine (Insulin Glargine,Hum.Rec.Anlog 100 Unit/Ml 10 Ml Vial) 10 unit SUBCUT DAILY [facility] Last Admin: 07/03/24 09:43 Dose: Not Given Insulin Human Lispro (Insulin Lispro 100 Unit/Ml 3 Ml Vial) 0 unit SUBCUT QIDACHS [facility]; Protocol Last Admin: 07/03/24 11:36 Dose: Not Given Levothyroxine Sodium (Levothyroxine Sodium 112 Mcg Tablet) 112 mcg PO DAILY@0600 [facility] Last Admin: 07/03/24 05:27 Dose: 112 mcg Levothyroxine Sodium (Levothyroxine Sodium 25 Mcg Tablet) 25 mcg PO DAILY@0600 [facility] Last Admin: 07/03/24 05:27 Dose: 25 mcg Lisinopril (Lisinopril 10 Mg Tablet) 10 mg PO DAILY [facility]; Protocol Last Admin: 07/03/24 09:44 Dose: 10 mg Magnesium Hydroxide (Milk Of Magnesia 30 Ml Oral.Susp) 30 ml PO DAILY PRN PRN Reason: Constipation Melatonin (Melatonin 3 Mg Tablet) 6 mg PO BEDTIME PRN PRN Reason: Insomnia Metronidazole (Metronidazole 500 Mg Tablet) 500 mg PO Q12H [facility] Last Admin: 07/03/24 09:44 Dose: 500 mg Ondansetron HCl (Ondansetron Hcl 4 Mg/2 Ml Vial) 4 mg IVPUSH Q8H PRN PRN Reason: Nausea and Vomiting Sodium Biphosphate/Sodium Phosphate (Sodium Phosphate,Grand-Dibasic 133 Ml Enema) 118 ml MT DAILY PRN PRN Reason: Constipation Sodium Chloride (0.9 % Sodium Chloride Flush 3 Ml Syringe) 3 ml IVFLUSH QSHIFT [facility] Last Admin: 07/03/24 09:45 Dose: 3 ml Vitamin D (Cholecalciferol (Vitamin D3) 25 Mcg Tablet) 50 mcg PO DAILY [facility] Last Admin: 07/03/24 09:44 Dose: 50 mcg Home Medications ?Medication ?Instructions ?Recorded ?Confirmed ?Last Taken ?Type metformin 500 mg tablet 750 mg PO DAILY 06/20/22 06/26/24 06/20/22 History amlodipine 10 mg tablet 10 mg PO DAILY 10/12/22 06/26/24 07/10/23 History cholecalciferol (vitamin D3) 50 50 mcg PO DAILY 10/12/22 06/26/24 Unknown History mcg (2,000 unit) capsule escitalopram oxalate 10 mg tablet 10 mg PO DAILY 10/12/22 06/26/24 Unknown History ezetimibe 10 mg tablet 10 mg PO DAILY 10/12/22 06/26/24 Unknown History fenofibrate 54 mg tablet 54 mg PO DAILY 10/12/22 06/26/24 Unknown History insulin degludec 200 unit/mL (3 20 unit subcut DAILY 10/12/22 06/26/24 Unknown History mL) subcutaneous pen (Tresiba FlexTouch U-200 insulin) lisinopril 10 mg tablet 10 mg PO DAILY 10/12/22 06/26/24 Unknown History ondansetron HCl 4 mg tablet 4 mg PO Q8H PRN Nausea And Vomiting 10/12/22 06/26/24 Unknown History simvastatin 40 mg tablet 40 mg PO BEDTIME 10/12/22 06/26/24 Unknown History acetaminophen 325 mg tablet 650 mg PO Q4H PRN Fever Or Pain 10/13/22 06/26/24 Unknown History bisacodyl 10 mg rectal suppository 10 mg MT DAILY PRN Constipation 10/13/22 06/26/24 Unknown History magnesium hydroxide 400 mg/5 mL 30 ml PO DAILY PRN Constipation 10/13/22 06/26/24 Unknown History oral suspension (Milk of Magnesia) sodium phosphates 19 gram-7 118 ml MT DAILY PRN Constipation 10/13/22 06/26/24 Unknown History gram/118 mL enema (Fleet Enema) ammonium lactate 12 % topical cream 1 appl topical DAILY 07/10/23 06/26/24 Unknown History insulin lispro 100 unit/mL See Protocol subcut QIDACHS 07/10/23 06/26/24 Unknown History subcutaneous solution loperamide 2 mg tablet 2 mg PO Q4H PRN Loose Stool 07/18/23 06/26/24 Unknown History levothyroxine 137 mcg tablet 137 mcg PO DAILY@0600 06/26/24 06/26/24 Unknown History metronidazole 500 mg tablet 500 mg DAILY wound 06/26/24 06/26/24 Unknown History tirzepatide 5 mg/0.5 mL 5 mg subcut TH 06/26/24 07/03/24 06/25/24 History subcutaneous pen injector (Horace) Exam Height,Weight and Vital Signs: Height 5 ft 8 in Weight 99.79 kg Last Vital Signs Temp 98.2 F 07/03/24 12:47 Pulse 74 07/03/24 12:47 Resp 18 07/03/24 12:47 BP 143/83 H 07/03/24 12:47 Pulse Ox 96 07/03/24 12:47 O2 Del Method Room Air 07/03/24 12:47 O2 Flow Rate 1 07/02/24 16:30 Pertinent Lab Results Pertinent Lab Results: Laboratory Tests 06/26/24 06/26/24 06/26/24 16:01 16:12 16:26 WBC 17.1 H RBC 3.19 L Hgb 8.6 L Hct 26.4 L MCV 82.8 MCH 27.0 MCHC 32.6 RDW 13.2 Plt Count 299 D MPV 10.3 Immature Gran % (Auto) 0.6 H Neut % (Auto) 88.9 H Lymph % (Auto) 4.3 L Grand % (Auto) 3.8 Eos % (Auto) 1.9 Baso % (Auto) 0.5 Lymph # (Auto) 0.7 L Grand # (Auto) 0.7 Eos # (Auto) 0.3 Baso # (Auto) 0.1 Abs Immat Gran (auto) 0.11 H Absolute Neuts (auto) 15.2 H Absolute Nucleated RBC 0.000 Nucleated RBC % (auto) 0.0 Smear Tech's Comments Hold Purple Top PT INR Sodium 131 L Potassium 4.8 Chloride 103 Carbon Dioxide 16 L Anion Gap 17 BUN 40 H Creatinine 2.18 H Estim Creat Clear Calc 44.3 Estimated GFR 32 POC Glucose 297 H Random Glucose 339 H Lactic Acid 2.4 H* Lactic Acid F/U @ 2Hr Calcium 8.7 Iron TIBC % Saturation Unsat Iron Binding Ferritin Total Bilirubin 0.6 AST 73 H ALT 64 H Alkaline Phosphatase 145 H Lactate Dehydrogenase Troponin I High Sens < 2.7 B-Natriuretic Peptide Total Protein 8.1 H Albumin 3.4 L Random Vancomycin Influenza Type A (PCR) NEGATIVE Influenza Type B (PCR) NEGATIVE RSV RNA Qual (PCR) NEGATIVE SARS-CoV-2 RNA (RT-PCR) NEGATIVE Blood Type Antibody Screen Crossmatch 06/26/24 06/26/24 06/27/24 18:29 21:57 06:42 WBC 14.0 H RBC 2.69 L Hgb 7.4 L Hct 22.1 L MCV 82.2 MCH 27.5 MCHC 33.5 RDW 13.2 Plt Count TNP MPV Not Reportable Immature Gran % (Auto) 0.9 H Neut % (Auto) 81.1 H Lymph % (Auto) 6.7 L Grand % (Auto) 6.9 Eos % (Auto) 3.9 Baso % (Auto) 0.5 Lymph # (Auto) 0.9 L Grand # (Auto) 1.0 Eos # (Auto) 0.5 H Baso # (Auto) 0.1 Abs Immat Gran (auto) 0.12 H Absolute Neuts (auto) 11.3 H Absolute Nucleated RBC 0.000 Nucleated RBC % (auto) 0.0 Smear Tech's Comments VERIFIED Hold Purple Top PT INR Sodium 135 Potassium 4.0 Chloride 110 H Carbon Dioxide 15 L Anion Gap 14 BUN 38 H Creatinine 1.89 H Estim Creat Clear Calc 51.1 Estimated GFR 37 POC Glucose 246 H Random Glucose 187 H Lactic Acid Lactic Acid F/U @ 2Hr 1.2 Calcium 7.6 L D Iron TIBC % Saturation Unsat Iron Binding Ferritin Total Bilirubin AST ALT Alkaline Phosphatase Lactate Dehydrogenase Troponin I High Sens B-Natriuretic Peptide Total Protein Albumin Random Vancomycin Influenza Type A (PCR) Influenza Type B (PCR) RSV RNA Qual (PCR) SARS-CoV-2 RNA (RT-PCR) Blood Type Antibody Screen Crossmatch 06/27/24 06/27/24 06/27/24 07:17 13:30 16:07 WBC RBC Hgb Hct MCV MCH MCHC RDW Plt Count MPV Immature Gran % (Auto) Neut % (Auto) Lymph % (Auto) Grand % (Auto) Eos % (Auto) Baso % (Auto) Lymph # (Auto) Grand # (Auto) Eos # (Auto) Baso # (Auto) Abs Immat Gran (auto) Absolute Neuts (auto) Absolute Nucleated RBC Nucleated RBC % (auto) Smear Tech's Comments Hold Purple Top PT INR Sodium Potassium Chloride Carbon Dioxide Anion Gap BUN Creatinine Estim Creat Clear Calc Estimated GFR POC Glucose 171 H 215 H Random Glucose Lactic Acid Lactic Acid F/U @ 2Hr Calcium Iron TIBC % Saturation Unsat Iron Binding Ferritin Total Bilirubin AST ALT Alkaline Phosphatase Lactate Dehydrogenase Troponin I High Sens B-Natriuretic Peptide Total Protein Albumin Random Vancomycin 15.6 Influenza Type A (PCR) Influenza Type B (PCR) RSV RNA Qual (PCR) SARS-CoV-2 RNA (RT-PCR) Blood Type Antibody Screen Crossmatch 06/27/24 06/27/24 06/28/24 16:52 20:22 07:37 WBC RBC Hgb Hct MCV MCH MCHC RDW Plt Count MPV Immature Gran % (Auto) Neut % (Auto) Lymph % (Auto) Grand % (Auto) Eos % (Auto) Baso % (Auto) Lymph # (Auto) Grand # (Auto) Eos # (Auto) Baso # (Auto) Abs Immat Gran (auto) Absolute Neuts (auto) Absolute Nucleated RBC Nucleated RBC % (auto) Smear Tech's Comments Hold Purple Top PT INR Sodium Potassium Chloride Carbon Dioxide Anion Gap BUN Creatinine Estim Creat Clear Calc Estimated GFR POC Glucose 191 H 184 H 131 H Random Glucose Lactic Acid Lactic Acid F/U @ 2Hr Calcium Iron TIBC % Saturation Unsat Iron Binding Ferritin Total Bilirubin AST ALT Alkaline Phosphatase Lactate Dehydrogenase Troponin I High Sens B-Natriuretic Peptide Total Protein Albumin Random Vancomycin Influenza Type A (PCR) Influenza Type B (PCR) RSV RNA Qual (PCR) SARS-CoV-2 RNA (RT-PCR) Blood Type Antibody Screen Crossmatch 06/28/24 06/28/24 06/28/24 10:42 11:35 16:00 WBC RBC Hgb Hct MCV MCH MCHC RDW Plt Count MPV Immature Gran % (Auto) Neut % (Auto) Lymph % (Auto) Grand % (Auto) Eos % (Auto) Baso % (Auto) Lymph # (Auto) Grand # (Auto) Eos # (Auto) Baso # (Auto) Abs Immat Gran (auto) Absolute Neuts (auto) Absolute Nucleated RBC Nucleated RBC % (auto) Smear Tech's Comments Hold Purple Top PT INR Sodium Potassium Chloride Carbon Dioxide Anion Gap BUN Creatinine 2.03 H Estim Creat Clear Calc 47.6 Estimated GFR 34 POC Glucose 180 H Random Glucose Lactic Acid Lactic Acid F/U @ 2Hr Calcium Iron TIBC % Saturation Unsat Iron Binding Ferritin Total Bilirubin AST ALT Alkaline Phosphatase Lactate Dehydrogenase Troponin I High Sens B-Natriuretic Peptide Total Protein Albumin Random Vancomycin 14.7 L Influenza Type A (PCR) Influenza Type B (PCR) RSV RNA Qual (PCR) SARS-CoV-2 RNA (RT-PCR) Blood Type Antibody Screen Crossmatch 06/28/24 06/28/24 06/29/24 16:41 20:50 07:40 WBC RBC Hgb Hct MCV MCH MCHC RDW Plt Count MPV Immature Gran % (Auto) Neut % (Auto) Lymph % (Auto) Grand % (Auto) Eos % (Auto) Baso % (Auto) Lymph # (Auto) Grand # (Auto) Eos # (Auto) Baso # (Auto) Abs Immat Gran (auto) Absolute Neuts (auto) Absolute Nucleated RBC Nucleated RBC % (auto) Smear Tech's Comments Hold Purple Top PT INR Sodium Potassium Chloride Carbon Dioxide Anion Gap BUN Creatinine Estim Creat Clear Calc Estimated GFR POC Glucose 280 H 233 H 179 H Random Glucose Lactic Acid Lactic Acid F/U @ 2Hr Calcium Iron TIBC % Saturation Unsat Iron Binding Ferritin Total Bilirubin AST ALT Alkaline Phosphatase Lactate Dehydrogenase Troponin I High Sens B-Natriuretic Peptide Total Protein Albumin Random Vancomycin Influenza Type A (PCR) Influenza Type B (PCR) RSV RNA Qual (PCR) SARS-CoV-2 RNA (RT-PCR) Blood Type Antibody Screen Crossmatch 06/29/24 06/29/24 06/29/24 08:20 08:20 08:20 WBC 12.8 H RBC 2.85 L Hgb 7.8 L Hct 23.5 L MCV 82.5 MCH 27.4 MCHC 33.2 RDW 13.5 Plt Count 358 MPV 9.5 Immature Gran % (Auto) Neut % (Auto) Lymph % (Auto) Grand % (Auto) Eos % (Auto) Baso % (Auto) Lymph # (Auto) Grand # (Auto) Eos # (Auto) Baso # (Auto) Abs Immat Gran (auto) Absolute Neuts (auto) Absolute Nucleated RBC 0.000 Nucleated RBC % (auto) 0.0 Smear Tech's Comments Hold Purple Top PT INR Sodium 136 Potassium 3.9 Chloride 112 H Carbon Dioxide 16 L Anion Gap 12 BUN 29 H Creatinine 1.58 H 1.59 H Estim Creat Clear Calc 61.2 60.8 Estimated GFR 46 POC Glucose Random Glucose Lactic Acid Lactic Acid F/U @ 2Hr Calcium Iron TIBC % Saturation Unsat Iron Binding Ferritin Total Bilirubin AST ALT Alkaline Phosphatase Lactate Dehydrogenase Troponin I High Sens B-Natriuretic Peptide Total Protein Albumin Random Vancomycin Influenza Type A (PCR) Influenza Type B (PCR) RSV RNA Qual (PCR) SARS-CoV-2 RNA (RT-PCR) Blood Type Antibody Screen Crossmatch 06/29/24 06/29/24 06/29/24 08:20 11:46 16:05 WBC RBC Hgb Hct MCV MCH MCHC RDW Plt Count MPV Immature Gran % (Auto) Neut % (Auto) Lymph % (Auto) Grand % (Auto) Eos % (Auto) Baso % (Auto) Lymph # (Auto) Grand # (Auto) Eos # (Auto) Baso # (Auto) Abs Immat Gran (auto) Absolute Neuts (auto) Absolute Nucleated RBC Nucleated RBC % (auto) Smear Tech's Comments Hold Purple Top PT INR Sodium Potassium Chloride Carbon Dioxide Anion Gap BUN Creatinine Estim Creat Clear Calc Estimated GFR 46 POC Glucose 246 H 262 H Random Glucose 183 H Lactic Acid Lactic Acid F/U @ 2Hr Calcium 8.1 L D Iron 20 L TIBC 145 L % Saturation 14 L Unsat Iron Binding 125 Ferritin Total Bilirubin AST ALT Alkaline Phosphatase Lactate Dehydrogenase Troponin I High Sens B-Natriuretic Peptide 264 H Total Protein Albumin Random Vancomycin Influenza Type A (PCR) Influenza Type B (PCR) RSV RNA Qual (PCR) SARS-CoV-2 RNA (RT-PCR) Blood Type Antibody Screen Crossmatch 06/29/24 06/29/24 06/30/24 16:37 20:26 06:12 WBC 11.6 H RBC 2.66 L Hgb 7.1 L Hct 22.5 L MCV 84.6 MCH 26.7 L MCHC 31.6 RDW 13.6 Plt Count 343 MPV 9.7 Immature Gran % (Auto) Neut % (Auto) Lymph % (Auto) Grand % (Auto) Eos % (Auto) Baso % (Auto) Lymph # (Auto) Grand # (Auto) Eos # (Auto) Baso # (Auto) Abs Immat Gran (auto) Absolute Neuts (auto) Absolute Nucleated RBC 0.000 Nucleated RBC % (auto) 0.0 Smear Tech's Comments Hold Purple Top PT 13.3 H INR 1.1 Sodium Potassium Chloride Carbon Dioxide Anion Gap BUN Creatinine 1.33 Estim Creat Clear Calc 72.7 Estimated GFR 56 POC Glucose 225 H Random Glucose 262 H Lactic Acid Lactic Acid F/U @ 2Hr Calcium Iron TIBC % Saturation Unsat Iron Binding Ferritin Total Bilirubin AST ALT Alkaline Phosphatase Lactate Dehydrogenase 228 Troponin I High Sens B-Natriuretic Peptide Total Protein 7.2 Albumin Random Vancomycin 13.0 L Influenza Type A (PCR) Influenza Type B (PCR) RSV RNA Qual (PCR) SARS-CoV-2 RNA (RT-PCR) Blood Type Antibody Screen Crossmatch 06/30/24 06/30/24 06/30/24 07:23 09:06 11:09 WBC RBC Hgb Hct MCV MCH MCHC RDW Plt Count MPV Immature Gran % (Auto) Neut % (Auto) Lymph % (Auto) Grand % (Auto) Eos % (Auto) Baso % (Auto) Lymph # (Auto) Grand # (Auto) Eos # (Auto) Baso # (Auto) Abs Immat Gran (auto) Absolute Neuts (auto) Absolute Nucleated RBC Nucleated RBC % (auto) Smear Tech's Comments Hold Purple Top PT INR Sodium 137 Potassium 4.7 D Chloride 114 H Carbon Dioxide 16 L Anion Gap 12 BUN 22 H Creatinine 1.34 Estim Creat Clear Calc 72.1 Estimated GFR 56 POC Glucose 159 H 182 H Random Glucose 186 H Lactic Acid Lactic Acid F/U @ 2Hr Calcium 8.0 L Iron TIBC % Saturation Unsat Iron Binding Ferritin 557 H Total Bilirubin AST ALT Alkaline Phosphatase Lactate Dehydrogenase Troponin I High Sens B-Natriuretic Peptide Total Protein Albumin Random Vancomycin Influenza Type A (PCR) Influenza Type B (PCR) RSV RNA Qual (PCR) SARS-CoV-2 RNA (RT-PCR) Blood Type Antibody Screen Crossmatch 06/30/24 06/30/24 06/30/24 16:09 16:19 17:00 WBC RBC Hgb Hct MCV MCH MCHC RDW Plt Count MPV Immature Gran % (Auto) Neut % (Auto) Lymph % (Auto) Grand % (Auto) Eos % (Auto) Baso % (Auto) Lymph # (Auto) Grand # (Auto) Eos # (Auto) Baso # (Auto) Abs Immat Gran (auto) Absolute Neuts (auto) Absolute Nucleated RBC Nucleated RBC % (auto) Smear Tech's Comments Hold Purple Top PT INR Sodium Potassium Chloride Carbon Dioxide Anion Gap BUN Creatinine Estim Creat Clear Calc Estimated GFR POC Glucose 204 H Random Glucose Lactic Acid Lactic Acid F/U @ 2Hr Calcium Iron TIBC % Saturation Unsat Iron Binding Ferritin Total Bilirubin AST ALT Alkaline Phosphatase Lactate Dehydrogenase Troponin I High Sens B-Natriuretic Peptide Total Protein Albumin Random Vancomycin 13.7 L Influenza Type A (PCR) Influenza Type B (PCR) RSV RNA Qual (PCR) SARS-CoV-2 RNA (RT-PCR) Blood Type A Positive Antibody Screen NEGATIVE Crossmatch See Detail 06/30/24 07/01/24 07/01/24 20:44 05:49 07:31 WBC 11.9 H RBC 3.13 L Hgb 8.7 L D Hct 26.2 L MCV 83.7 MCH 27.8 MCHC 33.2 RDW 13.5 Plt Count 410 H MPV 9.2 L Immature Gran % (Auto) Neut % (Auto) Lymph % (Auto) Grand % (Auto) Eos % (Auto) Baso % (Auto) Lymph # (Auto) Grand # (Auto) Eos # (Auto) Baso # (Auto) Abs Immat Gran (auto) Absolute Neuts (auto) Absolute Nucleated RBC 0.000 Nucleated RBC % (auto) 0.0 Smear Tech's Comments Hold Purple Top PT INR Sodium Potassium Chloride Carbon Dioxide Anion Gap BUN Creatinine 1.26 Estim Creat Clear Calc 76.7 Estimated GFR 60 POC Glucose 207 H 173 H Random Glucose Lactic Acid Lactic Acid F/U @ 2Hr Calcium Iron TIBC % Saturation Unsat Iron Binding Ferritin Total Bilirubin AST ALT Alkaline Phosphatase Lactate Dehydrogenase Troponin I High Sens B-Natriuretic Peptide Total Protein Albumin Random Vancomycin Influenza Type A (PCR) Influenza Type B (PCR) RSV RNA Qual (PCR) SARS-CoV-2 RNA (RT-PCR) Blood Type Antibody Screen Crossmatch 07/01/24 07/01/24 07/01/24 11:21 15:56 16:14 WBC RBC Hgb Hct MCV MCH MCHC RDW Plt Count MPV Immature Gran % (Auto) Neut % (Auto) Lymph % (Auto) Grand % (Auto) Eos % (Auto) Baso % (Auto) Lymph # (Auto) Grand # (Auto) Eos # (Auto) Baso # (Auto) Abs Immat Gran (auto) Absolute Neuts (auto) Absolute Nucleated RBC Nucleated RBC % (auto) Smear Tech's Comments Hold Purple Top PT INR Sodium Potassium Chloride Carbon Dioxide Anion Gap BUN Creatinine Estim Creat Clear Calc Estimated GFR POC Glucose 242 H 232 H Random Glucose Lactic Acid Lactic Acid F/U @ 2Hr Calcium Iron TIBC % Saturation Unsat Iron Binding Ferritin Total Bilirubin AST ALT Alkaline Phosphatase Lactate Dehydrogenase Troponin I High Sens B-Natriuretic Peptide Total Protein Albumin Random Vancomycin 9.8 L Influenza Type A (PCR) Influenza Type B (PCR) RSV RNA Qual (PCR) SARS-CoV-2 RNA (RT-PCR) Blood Type Antibody Screen Crossmatch 07/01/24 07/02/24 07/02/24 19:31 05:42 07:29 WBC 9.4 RBC 3.32 L Hgb 9.2 L Hct 28.1 L MCV 84.6 MCH 27.7 MCHC 32.7 RDW 13.6 Plt Count 417 H MPV 9.5 Immature Gran % (Auto) Neut % (Auto) Lymph % (Auto) Grand % (Auto) Eos % (Auto) Baso % (Auto) Lymph # (Auto) Grand # (Auto) Eos # (Auto) Baso # (Auto) Abs Immat Gran (auto) Absolute Neuts (auto) Absolute Nucleated RBC 0.000 Nucleated RBC % (auto) 0.0 Smear Tech's Comments Hold Purple Top SEE NOTE PT INR Sodium 138 Potassium 4.0 Chloride 104 Carbon Dioxide 25 Anion Gap 13 BUN 19 H Creatinine 1.18 Estim Creat Clear Calc 81.9 Estimated GFR > 60 POC Glucose 266 H 227 H Random Glucose 228 H Lactic Acid Lactic Acid F/U @ 2Hr Calcium 8.7 D Iron TIBC % Saturation Unsat Iron Binding Ferritin Total Bilirubin AST ALT Alkaline Phosphatase Lactate Dehydrogenase Troponin I High Sens B-Natriuretic Peptide Total Protein Albumin Random Vancomycin Influenza Type A (PCR) Influenza Type B (PCR) RSV RNA Qual (PCR) SARS-CoV-2 RNA (RT-PCR) Blood Type Antibody Screen Crossmatch 07/02/24 07/02/24 07/02/24 11:18 16:12 20:08 WBC RBC Hgb Hct MCV MCH MCHC RDW Plt Count MPV Immature Gran % (Auto) Neut % (Auto) Lymph % (Auto) Grand % (Auto) Eos % (Auto) Baso % (Auto) Lymph # (Auto) Grand # (Auto) Eos # (Auto) Baso # (Auto) Abs Immat Gran (auto) Absolute Neuts (auto) Absolute Nucleated RBC Nucleated RBC % (auto) Smear Tech's Comments Hold Purple Top PT INR Sodium Potassium Chloride Carbon Dioxide Anion Gap BUN Creatinine Estim Creat Clear Calc Estimated GFR POC Glucose 332 H 244 H 267 H Random Glucose Lactic Acid Lactic Acid F/U @ 2Hr Calcium Iron TIBC % Saturation Unsat Iron Binding Ferritin Total Bilirubin AST ALT Alkaline Phosphatase Lactate Dehydrogenase Troponin I High Sens B-Natriuretic Peptide Total Protein Albumin Random Vancomycin Influenza Type A (PCR) Influenza Type B (PCR) RSV RNA Qual (PCR) SARS-CoV-2 RNA (RT-PCR) Blood Type Antibody Screen Crossmatch 07/03/24 07/03/24 07:16 11:19 WBC RBC Hgb Hct MCV MCH MCHC RDW Plt Count MPV Immature Gran % (Auto) Neut % (Auto) Lymph % (Auto) Grand % (Auto) Eos % (Auto) Baso % (Auto) Lymph # (Auto) Grand # (Auto) Eos # (Auto) Baso # (Auto) Abs Immat Gran (auto) Absolute Neuts (auto) Absolute Nucleated RBC Nucleated RBC % (auto) Smear Tech's Comments Hold Purple Top PT INR Sodium Potassium Chloride Carbon Dioxide Anion Gap BUN Creatinine Estim Creat Clear Calc Estimated GFR POC Glucose 227 H 223 H Random Glucose Lactic Acid Lactic Acid F/U @ 2Hr Calcium Iron TIBC % Saturation Unsat Iron Binding Ferritin Total Bilirubin AST ALT Alkaline Phosphatase Lactate Dehydrogenase Troponin I High Sens B-Natriuretic Peptide Total Protein Albumin Random Vancomycin Influenza Type A (PCR) Influenza Type B (PCR) RSV RNA Qual (PCR) SARS-CoV-2 RNA (RT-PCR) Blood Type Antibody Screen Crossmatch Airway Mallampati Class: II TM Dist: <=3cm Neck ROM: Full Heart: ok Lungs: bilat ple eff. chest cta. sat 97% ra. Assessment and Plan Assessment Anesthesia Assessment: Anesthesia Plan Discussed and Chart Reviewed Final Anesthetic Review Family History of Problems with Anesthesia: No History of Problems with Anesthesia: No NPO: Yes ASA Class: III and IV Final Preanesthetic Review: No Changes in Pt Med Stat, Meds/Allgs Chart Reviewed, Consent Obtained/Reviewed and Anes Risks/Benef Reviewed Patient Risk: High Procedure Risk: Low Anesthetic Plan Anesthetic Plan: GA and Agree w/ Assess. and Plan Disposition: Standard PACU
--- NOTE | 2024-07-03 13:27 | PC.NURSE ---
HCP, sister Viviana, was at bedside to sign consents with insurance sales professional. all questions answered.
--- NOTE | 2024-07-03 13:30 | PC.NURSE ---
patient is alert to person and place only. Sister, HCP, at bedside to answer questions and sign for patient.
--- NOTE | 2024-07-03 14:38 | W.PM.OPN ---
Operative Note Operative Note Date of Service: 07/03/24 Narrative: Preoperative diagnosis: Below the lower gangrene to the left 4th and 5th toes 80, diabetic today, nonhealing wound right foot with Postoperative diagnosis: Same Procedure: Amputation of left 4th and 5th toes, debridement right foot Surgeon: Bao Dempsey MD Germination Testing Manager: Miguel Stout MS3 Anesthesia: General LMA Indications for procedure: 53-year-old male patient with previous history of gangrene of the right foot status post transmetatarsal amputation now with gangrene of the 4th and 5th toes with evidence of osteomyelitis involving the metatarsal and proximal phalanx of the 4th and 5th toes. He presents today for amputation of the 4th and 5th toes as well as debridement of the right foot ulcer. Operative findings: Osteomyelitis involving the 5th metatarsal head and proximal phalanx of both the 4th and 5th toe, gangrene of the 4th and 5th toe. Specimen: Amputation 4th and 5th toe Estimated blood loss: 15 mL Complications: None Procedure details: Patient was brought to the OR placed in a supine position. After administering general anesthesia the patient's bilateral feet were prepped with Betadine and draped in a sterile fashion. A surgical time-out was called the consent confirmed. Patient received preoperative antibiotics and Venodyne boots were in place. A digital block was applied between the 4th and 5th toes with Sensorcaine 0.5%. Electrocautery was then used to create incision in elliptical fashion oriented transversely but then extending up along the metatarsal of the 5th toe. The incision was then carried down into the subcutaneous tissue down to bone. Infected bone was noted at the 4th and 5th proximal phalanx. Dissection was then continued down to the 5th distal metatarsal head some both 4th and 5th toes. The 4th toe appeared to have good solid bone without evidence of osteomyelitis. The 5th toe however the metatarsal was softer with an irregular margin. This was dissected further proximally and then divided using a bone cutter. The 4th toe was also divided using a bone cutter. Remaining tissue was then excised using electrocautery. The plantar ulcer noted at the base of the 4th metatarsal head was also included in the excision. Specimen was passed off the table and sent to pathology for further examination. The wounds were then irrigated thoroughly with saline solution. Wounds were then loosely approximated using interrupted 3-0 nylon sutures. Wounds were then packed with quarter-inch iodoform gauze. Attention was then directed to the right foot which has an open nonhealing wound following transmetatarsal amputation. A large amount of chronic granulation tissue was noted at the base of the wound. This was debrided using a curette down to viable tissue. Some of the surrounding callus was also removed. Wounds were then dressed with non adherent dressing followed by fluffed gauze, ABD pad, and Kerlix. The left foot was also dressed with fluff gauze, ABD pad and Kerlix wrap. The patient tolerated the procedure well. Sponge, instrument, and needle counts reported as correct. The patient was transferred to PACU in stable condition.
--- NOTE | 2024-07-03 14:58 | P.PNIM_ITS ---
Subjective Subjective Date of Service: 07/03/24 Interval History: Seen and examined this morning Follow-up for bilateral lower extremity wounds History obtained with the assistance of a shopper marketing manager Patient reports improvement in breathing, denies shortness of breath Review of Systems Review of Systems: Yes all other systems are reviewed and are negative Constitutional Constitutional: Denies chills and Denies fever(s) Cardiovascular Cardiovascular: Denies chest pain Gastrointestinal Gastrointestinal: Denies abdominal pain Physical Exam 2 Vital Signs: Vital Signs: Last Vital Signs Temp 97 F 07/03/24 14:42 Pulse 71 07/03/24 14:56 Resp 20 07/03/24 14:56 BP 133/75 07/03/24 14:56 Pulse Ox 95 07/03/24 14:56 O2 Del Method Room Air 07/03/24 14:56 O2 Flow Rate 1 07/02/24 16:30 BMI result Body Mass Index 33.4 Const: General: cooperative, comfortable, alert and awake Nutritional Appearance: overweight Resp: Other: diminished Effort & Inspection: normal respiratory effort, able to speak in complete sentences, no respiratory distress and no use of accessory muscles Cardio: Rate: regular rate GI: Inspection: No distended Palpation (GI): Soft to palpation Skin: Other: b/l feet wrapped in dressings with some saturation; see wound care notes for updated pictures Neuro: General: moves all extremities and CN's II-XI intact bilaterally Objective Data Active Medications Acetaminophen (Acetaminophen 325 Mg Tablet) 650 mg PO Q6H PRN PRN Reason: Pain, Mild 1-3,fever,headache Last Admin: 07/02/24 17:33 Dose: 650 mg Documented By: BELKYS Amlodipine Besylate (Amlodipine Besylate 10 Mg Tablet) 10 mg PO DAILY [facility]; Protocol Last Admin: 07/03/24 09:44 Dose: 10 mg Documented By: BELKYS Bisacodyl (Bisacodyl 10 Mg Supp.Rect) 10 mg DC DAILY PRN PRN Reason: Constipation Calcium Carbonate (Calcium Carbonate 750 Mg Tab.Chew) 750 mg PO Q4H PRN PRN Reason: Heartburn Ceftriaxone Sodium (Ceftriaxone Sodium 2 Gm Vial) 2 gm IVPUSH 2200 [facility] Last Admin: 07/02/24 21:06 Dose: 2 gm Documented By: RAQUEL Ezetimibe (Ezetimibe 10 Mg Tablet) 10 mg PO DAILY [facility] Last Admin: 07/03/24 09:44 Dose: 10 mg Documented By: BELKYS Enoxaparin Sodium (Enoxaparin Sodium 40 Mg/0.4 Ml Syringe) 40 mg SUBCUT Q24H [facility] Last Admin: 07/02/24 21:09 Dose: Not Given Documented By: ODRISChet Non-Admin Reason: preop Escitalopram Oxalate (Escitalopram Oxalate 10 Mg Tablet) 10 mg PO DAILY [facility] Last Admin: 07/03/24 09:44 Dose: 10 mg Documented By: BELKYS Fenofibrate (Fenofibrate 54 Mg Tablet) 54 mg PO DAILY [facility] Last Admin: 07/03/24 09:44 Dose: 54 mg Documented By: BELKYS Fentanyl (Fentanyl Citrate/Pf 100 Mcg/2 Ml Vial) 50 mcg IVPUSH Q5M PRN PRN Reason: Pain, Moderate to Severe (Pain Scale 4-10) Stop: 07/03/24 19:11 Furosemide (Furosemide 20 Mg/2 Ml Vial) 20 mg IVPUSH BID@0900,1800 [facility]; Protocol Last Admin: 07/02/24 17:24 Dose: 20 mg Documented By: BELKYS Glucose (Glucose Gel 15 Gm Gel..Gram.) 15 gm PO Q15M PRN; Protocol PRN Reason: per Hypoglycemia Standing Ord. Hydromorphone HCl (Hydromorphone Hcl 0.5 Mg/0.5 Ml Syringe) 0.5 mg IVPUSH Q5M PRN PRN Reason: Pain, Moderate to Severe (Pain Scale 4-10) Stop: 07/03/24 19:12 Dextrose (D10) 250 mls @ 750 mls/hr IV Q15M PRN; Protocol PRN Reason: per Hypoglycemia Standing Ord. Acetaminophen (Ofirmev) 1,000 mg in 100 mls @ 400 mls/hr IV ONCE PRN PRN Reason: Pain, Mild (Pain Scale 1-3) Stop: 07/03/24 19:11 Insulin Glargine (Insulin Glargine,Hum.Rec.Anlog 100 Unit/Ml 10 Ml Vial) 10 unit SUBCUT DAILY [facility] Last Admin: 07/03/24 09:43 Dose: Not Given Documented By: BELKYS Non-Admin Reason: MD CY held Insulin Human Lispro (Insulin Lispro 100 Unit/Ml 3 Ml Vial) 0 unit SUBCUT QIDACHS [facility]; Protocol Last Admin: 07/03/24 11:36 Dose: Not Given Documented By: BELKYS Non-Admin Reason: MD CY held med Levothyroxine Sodium (Levothyroxine Sodium 112 Mcg Tablet) 112 mcg PO DAILY@0600 [facility] Last Admin: 07/03/24 05:27 Dose: 112 mcg Documented By: ODRISM Levothyroxine Sodium (Levothyroxine Sodium 25 Mcg Tablet) 25 mcg PO DAILY@0600 [facility] Last Admin: 07/03/24 05:27 Dose: 25 mcg Documented By: AGNIESZKARISChet Lisinopril (Lisinopril 10 Mg Tablet) 10 mg PO DAILY [facility]; Protocol Last Admin: 07/03/24 09:44 Dose: 10 mg Documented By: BELKYS Magnesium Hydroxide (Milk Of Magnesia 30 Ml Oral.Susp) 30 ml PO DAILY PRN PRN Reason: Constipation Melatonin (Melatonin 3 Mg Tablet) 6 mg PO BEDTIME PRN PRN Reason: Insomnia Metronidazole (Metronidazole 500 Mg Tablet) 500 mg PO Q12H [facility] Last Admin: 07/03/24 09:44 Dose: 500 mg Documented By: BELKYS Naloxone HCl (Naloxone Hcl 0.4 Mg/Ml Vial) 0.04 mg IVPUSH Q5M PRN PRN Reason: Excessive sedation or RR < 8 Ondansetron HCl (Ondansetron Hcl 4 Mg/2 Ml Vial) 4 mg IVPUSH Q8H PRN PRN Reason: Nausea and Vomiting Sodium Biphosphate/Sodium Phosphate (Sodium Phosphate,[place]-Dibasic 133 Ml Enema) 118 ml DC DAILY PRN PRN Reason: Constipation Sodium Chloride (0.9 % Sodium Chloride Flush 3 Ml Syringe) 3 ml IVFLUSH QSHIFT [facility] Last Admin: 07/03/24 09:45 Dose: 3 ml Documented By: BELKYS Vitamin D (Cholecalciferol (Vitamin D3) 25 Mcg Tablet) 50 mcg PO DAILY [facility] Last Admin: 07/03/24 09:44 Dose: 50 mcg Documented By: BELKYS Labs 07/02/24 05:42 07/02/24 05:42 Labs: Laboratory Results - last 24 hr 07/02/24 07/02/24 07/03/24 16:12 20:08 07:16 POC Glucose 244 H 267 H 227 H 07/03/24 11:19 POC Glucose 223 H Assessment and Plan (1) Diabetic foot ulcer: Status: Acute Plan This is a 53-year-old Romanian-speaking male with history of insulin-dependent diabetes mellitus with neuropathy, hypertension, hyperlipidemia, hypothyroidism, mood disorder, gastroesophageal reflux disease, CKD, 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 emergency department for evaluation of left foot infection found to have sepsis course complicated by fluid overload with respiratory failure, anemia and bacteremia Severe sepsis due to infected diabetic foot ulcer, gangrenous 5th toe and purulent cellulitis sepsis resolved MRI left foot with early osteo IV vancomycin and Zosyn initially, ID rec Rocephin and Flagyl, 1 week of Flagyl and 6 weeks of IV Rocephin will need PICC line when repeat blood cultures negative, likely saturday Consulting General surgery>plan for amputation of 4,5th toe and debridement of right TMA stump today Strep agalactiae bacteremia due to foot infection continue IV Rocephin ID following repeat blood cultures ordered echo negative for vegetation Normocytic anemia Likely secondary to chronic kidney disease and iron deficiency No active bleeding discussed with heme> tx 1 units PRBC (06/30/24) and start iron supp stable HH today acute respiratory failure with hypoxia due to Bilateral pleural effusion from fluid overload Discussed with Pulm likely fluid overload from IVF. recommended against thoracentesis. echo with ef 70%, normal diastolic function s/p IV lasix able to be weaned off of oxygen follow fluid status closely JJ on CKD 3b resolved Insulin-dependent diabetes mellitus with hyperglycemia continue Sliding scale, ADA diet Hold metformin tresiba - converted to Lantus Elevated transaminases due to sepsis hold statin Hypertension Initially held antihypertensives in the setting of sepsis. Resumed lisinopril and Norvasc Mood disorder Continue home mood stabilizers Mixed hyperlipidemia On statin and fenofibrate, Zetia. Statin on hold Hypothyroidism On Synthroid DVT prophylaxis: Lovenox Full code Requires ongoing inpatient stay for treatment of foot infection, bacteremia requiring IV antibiotics and surgical intervention Quality Stroke Does the patient have a stroke diagnosis?: No VTE Prior VTE?: No VTE Risk Level:: Medical - moderate - high VTE Device Contraindication: Treatment Not Indicated VTE Drug Contraindication: N/A - Med Ordered
[2024-07-03 15:18] LABS: Glucose, Whole Blood 225 mg/dL (60-115)
[2024-07-03 16:22] LABS: Glucose, Whole Blood 225 mg/dL (60-115)
[2024-07-03] MEDS: Insulin Lispro 100 UNIT/ML 3 ML VIAL SUBCUT ×2 (16:59→20:25)
--- NOTE | 2024-07-03 17:14 | P.CDIM_ITS ---
PROVIDER RESPONSE TEXT: To clarify, the appropriate diagnosis supported by the clinical indicators: Iron deficiency anemia QUERY TEXT: PHYSICIAN'S DOCUMENTATION REQUEST Date of Query: 07/03/2024 09:30 AM EST Patient Name: Mehul Beltran Admit Date: 06/27/2024 Dear Nuha Washington PA, A review of the medical record indicates additional documentation may be needed. Please review below and update the documentation accordingly. Clinical Indicators: LABS: Iron 20 L Transfused 1 unit blood Normocytic anemia likely secondary to chronic kidney disease and low iron. No active bleeding Start iron supp. Stable HH today. Based on the above, could you clarify which of the following is the most likely type of anemia you ar e evaluating, treating, and/or monitoring? Iron deficiency anemia Iron deficiency anemia due to chronic blood loss possible, probable, suspected etc. Iron deficiency anemia due to acute on chronic blood loss Other specifics to the anemia Other (explain) Clinically unable to determine (explain) Thank you, Elizabeth Perdue, CCS, CDIS Use of terms such as suspected, likely, concern for, or probable (associated with a specific diagnosi s that is being evaluated, monitored, or treated as if it exists) are acceptable and can be coded in the inpatient se tting, when documented at the time of discharge. Please use your independent medical judgment in providing your response. THIS QUERY IS PART OF THE PERMANENT MEDICAL RECORD
[2024-07-03 20:09] LABS: Glucose, Whole Blood 218 mg/dL (60-115)
[2024-07-03] MEDS: cefTRIAXone sodium 2 GM VIAL IVPUSH (20:25)
[2024-07-03] MEDS: Enoxaparin Sodium 40 MG/0.4 ML SYRINGE SUBCUT (20:25)
[2024-07-04 03:48] VITALS: BP 148/75; PULSE 78; RESP 16; TEMP 37.3; O2SAT 96
[2024-07-04] MEDS: Levothyroxine Sodium 112 MCG TABLET PO (05:52)
[2024-07-04] MEDS: Levothyroxine Sodium 25 MCG TABLET PO (05:53)
[2024-07-04 07:23] LABS: Hematocrit 28.6 % (42.0-52.0); Hemoglobin 9.4 g/dl (14.0-18.0); Mean Corpuscular HGB Conc 32.9 g/dl (31.0-36.0); Mean Corpuscular Hemoglobin 27.6 pg (27.0-33.0); Mean Corpuscular Volume 83.9 fL (80.0-98.0); Mean Platelet Volume 9.3 fL (9.4-12.4); Platelet Count 424 X10*3/uL (160-400); Red Blood Count 3.41 X10*6/uL (4.60-5.80); Red Cell Distribution Width 13.4 % (11.0-16.0); White Blood Count 9.5 X10*3/uL (4.8-10.8)
[2024-07-04 07:42] LABS: Alanine Aminotransferase 13 U/L (0-40); Albumin Level 2.7 g/dL (3.5-5.0); Alkaline Phosphatase 96 U/L (39-117); Anion Gap 10 (12-20); Aspartate Amino Transferase 28 U/L (5-37); Bilirubin Direct 0.2 mg/dL (0.0-0.5); Bilirubin Total 0.3 mg/dL (0.0-1.0); Blood Urea Nitrogen 17 mg/dL (9-16); Calcium 8.1 mg/dL (8.4-10.2); Carbon Dioxide 26 mmol/L (22-29); Chloride 105 mmol/L (96-108); Creatinine Clr Calc Pharmacy 77.3; Estimated Glomerular Filt Rate > 60; Glucose Random 230 mg/dL (60-115); Potassium 4.1 mmol/L (3.3-5.1); Sodium 137 mmol/L (135-145); Total Protein 7.4 g/dL (6.5-8.0)
[2024-07-04 07:56] LABS: Glucose, Whole Blood 201 mg/dL (60-115)
[2024-07-04] MEDS: amLODIPine Besylate 10 MG TABLET PO (08:03)
[2024-07-04] MEDS: Escitalopram Oxalate 10 MG TABLET PO (08:03)
[2024-07-04] MEDS: lisinopriL 10 MG TABLET PO (08:03)
[2024-07-04] MEDS: Fenofibrate 54 MG TABLET PO (08:03)
[2024-07-04] MEDS: Cholecalciferol (Vitamin D3) 25 MCG TABLET 50 MCG PO (08:03)
[2024-07-04] MEDS: Ezetimibe 10 MG TABLET PO (08:03)
[2024-07-04] MEDS: Insulin Lispro 100 UNIT/ML 3 ML VIAL SUBCUT ×4 (08:04→20:49)
[2024-07-04] MEDS: Insulin Glargine,Hum.rec.anlog 100 UNIT/ML 10 ML VIAL 10 UNIT SUBCUT (08:04)
[2024-07-04] MEDS: 0.9 % Sodium Chloride Flush 3 ML SYRINGE IVFLUSH ×3 (08:04→20:48)
[2024-07-04 08:07] VITALS: BP 144/77; PULSE 75; RESP 12; TEMP 36.4; O2SAT 94
[2024-07-04 08:13] LABS: Folate 9.4 ng/mL (> or = 4.0); Vitamin B12 825 pg/mL (200-900)
--- NOTE | 2024-07-04 09:14 | PM.PNGS ---
Subjective Subjective Date of Service: 07/04/24 Interval history: Says he feels okay Denies severe pain Physical Exam Vital Signs: Vital Signs: Last Vital Signs Temp 97.6 F 07/04/24 08:07 Pulse 75 07/04/24 08:07 Resp 12 07/04/24 08:07 BP 144/77 H 07/04/24 08:07 Pulse Ox 94 07/04/24 08:07 O2 Del Method Room Air 07/04/24 08:07 O2 Flow Rate 1 07/02/24 16:30 BMI result Body Mass Index 33.4 Const: General: comfortable and no acute distress Resp: Effort & Inspection: normal respiratory effort Cardio: Rate: regular rate Extrem: Other: Dressings dry on both the left and right feet Objective Data Active Medications Acetaminophen (Acetaminophen 325 Mg Tablet) 650 mg PO Q6H PRN PRN Reason: Pain, Mild 1-3,fever,headache Last Admin: 07/02/24 17:33 Dose: 650 mg Documented By: BELKYS Amlodipine Besylate (Amlodipine Besylate 10 Mg Tablet) 10 mg PO DAILY [facility]; Protocol Last Admin: 07/04/24 08:03 Dose: 10 mg Documented By: GINO Bisacodyl (Bisacodyl 10 Mg Supp.Rect) 10 mg NC DAILY PRN PRN Reason: Constipation Calcium Carbonate (Calcium Carbonate 750 Mg Tab.Chew) 750 mg PO Q4H PRN PRN Reason: Heartburn Ceftriaxone Sodium (Ceftriaxone Sodium 2 Gm Vial) 2 gm IVPUSH 2200 [facility] Last Admin: 07/03/24 20:25 Dose: 2 gm Documented By: KIM Ezetimibe (Ezetimibe 10 Mg Tablet) 10 mg PO DAILY [facility] Last Admin: 07/04/24 08:03 Dose: 10 mg Documented By: GINO Enoxaparin Sodium (Enoxaparin Sodium 40 Mg/0.4 Ml Syringe) 40 mg SUBCUT Q24H [facility] Last Admin: 07/03/24 20:25 Dose: 40 mg Documented By: KIM Escitalopram Oxalate (Escitalopram Oxalate 10 Mg Tablet) 10 mg PO DAILY [facility] Last Admin: 07/04/24 08:03 Dose: 10 mg Documented By: GINO Fenofibrate (Fenofibrate 54 Mg Tablet) 54 mg PO DAILY [facility] Last Admin: 07/04/24 08:03 Dose: 54 mg Documented By: GINO Furosemide (Furosemide 20 Mg/2 Ml Vial) 20 mg IVPUSH BID@0900,1800 [facility]; Protocol Last Admin: 07/02/24 17:24 Dose: 20 mg Documented By: BELKYS Glucose (Glucose Gel 15 Gm Gel..Gram.) 15 gm PO Q15M PRN; Protocol PRN Reason: per Hypoglycemia Standing Ord. Dextrose (D10) 250 mls @ 750 mls/hr IV Q15M PRN; Protocol PRN Reason: per Hypoglycemia Standing Ord. Insulin Glargine (Insulin Glargine,Hum.Rec.Anlog 100 Unit/Ml 10 Ml Vial) 10 unit SUBCUT DAILY [facility] Last Admin: 07/04/24 08:04 Dose: 10 unit Documented By: GINO Insulin Human Lispro (Insulin Lispro 100 Unit/Ml 3 Ml Vial) 0 unit SUBCUT QIDACHS [facility]; Protocol Last Admin: 07/04/24 08:04 Dose: 4 unit Documented By: GINO Levothyroxine Sodium (Levothyroxine Sodium 112 Mcg Tablet) 112 mcg PO DAILY@0600 [facility] Last Admin: 07/04/24 05:52 Dose: 112 mcg Documented By: KIM Levothyroxine Sodium (Levothyroxine Sodium 25 Mcg Tablet) 25 mcg PO DAILY@0600 [facility] Last Admin: 07/04/24 05:53 Dose: 25 mcg Documented By: KIM Lisinopril (Lisinopril 10 Mg Tablet) 10 mg PO DAILY [facility]; Protocol Last Admin: 07/04/24 08:03 Dose: 10 mg Documented By: GINO Magnesium Hydroxide (Milk Of Magnesia 30 Ml Oral.Susp) 30 ml PO DAILY PRN PRN Reason: Constipation Melatonin (Melatonin 3 Mg Tablet) 6 mg PO BEDTIME PRN PRN Reason: Insomnia Metronidazole (Metronidazole 500 Mg Tablet) 500 mg PO Q12H [facility] Last Admin: 07/03/24 20:24 Dose: 500 mg Documented By: KIM Naloxone HCl (Naloxone Hcl 0.4 Mg/Ml Vial) 0.04 mg IVPUSH Q5M PRN PRN Reason: Excessive sedation or RR < 8 Ondansetron HCl (Ondansetron Hcl 4 Mg/2 Ml Vial) 4 mg IVPUSH Q8H PRN PRN Reason: Nausea and Vomiting Oxycodone HCl (Oxycodone Hcl Immed Release 5 Mg Tablet) 5 mg PO Q6H PRN PRN Reason: Pain, Moderate(Pain Scale 4-6) Sodium Biphosphate/Sodium Phosphate (Sodium Phosphate,[place]-Dibasic 133 Ml Enema) 118 ml NC DAILY PRN PRN Reason: Constipation Sodium Chloride (0.9 % Sodium Chloride Flush 3 Ml Syringe) 3 ml IVFLUSH QSHIFT [facility] Last Admin: 07/04/24 08:04 Dose: 3 ml Documented By: GINO Vitamin D (Cholecalciferol (Vitamin D3) 25 Mcg Tablet) 50 mcg PO DAILY [facility] Last Admin: 07/04/24 08:03 Dose: 50 mcg Documented By: GINO Labs 07/04/24 06:38 07/04/24 06:38 Labs: Laboratory Results - last 24 hr 07/03/24 07/03/24 07/03/24 11:19 15:12 16:08 MCV MCH MCHC RDW Plt Count MPV Absolute Nucleated RBC Nucleated RBC % (auto) Anion Gap Estim Creat Clear Calc Estimated GFR POC Glucose 223 H 225 H 225 H Random Glucose Calcium Total Bilirubin Direct Bilirubin AST ALT Alkaline Phosphatase Total Protein Albumin Vitamin B12 Folate 07/03/24 07/04/24 07/04/24 19:41 06:38 07:22 MCV 83.9 MCH 27.6 MCHC 32.9 RDW 13.4 Plt Count 424 H MPV 9.3 L Absolute Nucleated RBC 0.000 Nucleated RBC % (auto) 0.0 Anion Gap 10 L Estim Creat Clear Calc 77.3 Estimated GFR > 60 POC Glucose 218 H 201 H Random Glucose 230 H Calcium 8.1 L D Total Bilirubin 0.3 Direct Bilirubin 0.2 AST 28 ALT 13 Alkaline Phosphatase 96 Total Protein 7.4 Albumin 2.7 L Vitamin B12 825 Folate 9.4 Microbiology Microbiology Results: Microbiology 07/02/24 16:36 Blood Culture - Preliminary Blood - Venous No growth after 24 hours. 07/02/24 16:36 Blood Culture - Preliminary Blood - Venous No growth after 24 hours. Procedures Date of Service Date of Service: 07/04/24 Progress Note: A&P Assessment and plan (1) Diabetic foot ulcer: Status: Acute Assessment and Plan: Status post amputation of toes x2 on the left, debridement of previous transmetatarsal amputation in the right Dressings dry I would take down his dressings tomorrow Continue pain management Blood sugar control Looks well overall Time Spent With Patient Time: Total time managing care of this patient today ____ minutes. Quality Stroke Does the patient have a stroke diagnosis?: No VTE Prior VTE?: No VTE Risk Level:: Medical - moderate - high VTE Device Contraindication: Treatment Not Indicated VTE Drug Contraindication: N/A - Med Ordered
[2024-07-04] MEDS: metroNIDAZOLE 500 MG TABLET PO ×2 (10:23→20:49)
[2024-07-04 11:38] LABS: Glucose, Whole Blood 326 mg/dL (60-115)
[2024-07-04 12:00] VITALS: BP 135/76; PULSE 75; RESP 18; TEMP 37; O2SAT 95
[2024-07-04 15:57] VITALS: BP 142/72; PULSE 73; RESP 18; TEMP 36.6; O2SAT 95
[2024-07-04 16:23] LABS: Glucose, Whole Blood 310 mg/dL (60-115)
--- NOTE | 2024-07-04 16:42 | HO.PM.IMPN ---
Subjective Subjective Date of Service: 07/04/24 Interval History: seen and examined this morning history obtained with the assistance of marina manager feels well, pain controlled; no sob, no cough Review of Systems Review of Systems: Yes all other systems are reviewed and are negative Constitutional Constitutional: Denies chills and Denies fever(s) Cardiovascular Cardiovascular: Denies chest pain, Denies palpitations and Denies dyspnea Respiratory Respiratory: Denies cough and Denies dyspnea Gastrointestinal Gastrointestinal: Denies abdominal pain Endocrine Endocrine: Denies palpitations Physical Exam Vital Signs: Vital Signs: Last Vital Signs Temp 97.9 F 07/04/24 15:57 Pulse 73 07/04/24 15:57 Resp 18 07/04/24 15:57 BP 142/72 H 07/04/24 15:57 Pulse Ox 95 07/04/24 15:57 O2 Del Method Room Air 07/04/24 15:57 O2 Flow Rate 1 07/02/24 16:30 BMI result Body Mass Index 33.4 Const: General: cooperative, comfortable, alert and awake Nutritional Appearance: overweight Resp: Other: diminished Effort & Inspection: normal respiratory effort, able to speak in complete sentences, no respiratory distress and no use of accessory muscles Cardio: Rate: regular rate GI: Inspection: No distended Palpation (GI): Soft to palpation Skin: Other: b/l feet wrapped in c/d/i dressings Neuro: General: moves all extremities and CN's II-XI intact bilaterally Objective Data Active Medications Acetaminophen (Acetaminophen 325 Mg Tablet) 650 mg PO Q6H PRN PRN Reason: Pain, Mild 1-3,fever,headache Last Admin: 07/02/24 17:33 Dose: 650 mg Documented By: BELKYS Amlodipine Besylate (Amlodipine Besylate 10 Mg Tablet) 10 mg PO DAILY [facility]; Protocol Last Admin: 07/04/24 08:03 Dose: 10 mg Documented By: GINO Bisacodyl (Bisacodyl 10 Mg Supp.Rect) 10 mg [place] DAILY PRN PRN Reason: Constipation Calcium Carbonate (Calcium Carbonate 750 Mg Tab.Chew) 750 mg PO Q4H PRN PRN Reason: Heartburn Ceftriaxone Sodium (Ceftriaxone Sodium 2 Gm Vial) 2 gm IVPUSH 2200 [facility] Last Admin: 07/03/24 20:25 Dose: 2 gm Documented By: KIM Ezetimibe (Ezetimibe 10 Mg Tablet) 10 mg PO DAILY [facility] Last Admin: 07/04/24 08:03 Dose: 10 mg Documented By: GINO Enoxaparin Sodium (Enoxaparin Sodium 40 Mg/0.4 Ml Syringe) 40 mg SUBCUT Q24H [facility] Last Admin: 07/03/24 20:25 Dose: 40 mg Documented By: KIM Escitalopram Oxalate (Escitalopram Oxalate 10 Mg Tablet) 10 mg PO DAILY [facility] Last Admin: 07/04/24 08:03 Dose: 10 mg Documented By: GINO Fenofibrate (Fenofibrate 54 Mg Tablet) 54 mg PO DAILY [facility] Last Admin: 07/04/24 08:03 Dose: 54 mg Documented By: GINO Furosemide (Furosemide 20 Mg/2 Ml Vial) 20 mg IVPUSH BID@0900,1800 [facility]; Protocol Last Admin: 07/02/24 17:24 Dose: 20 mg Documented By: BELKYS Glucose (Glucose Gel 15 Gm Gel..Gram.) 15 gm PO Q15M PRN; Protocol PRN Reason: per Hypoglycemia Standing Ord. Dextrose (D10) 250 mls @ 750 mls/hr IV Q15M PRN; Protocol PRN Reason: per Hypoglycemia Standing Ord. Insulin Glargine (Insulin Glargine,Hum.Rec.Anlog 100 Unit/Ml 10 Ml Vial) 10 unit SUBCUT DAILY [facility] Last Admin: 07/04/24 08:04 Dose: 10 unit Documented By: GINO Insulin Human Lispro (Insulin Lispro 100 Unit/Ml 3 Ml Vial) 0 unit SUBCUT QIDACHS [facility]; Protocol Last Admin: 07/04/24 11:54 Dose: 8 unit Documented By: GINO Levothyroxine Sodium (Levothyroxine Sodium 112 Mcg Tablet) 112 mcg PO DAILY@0600 [facility] Last Admin: 07/04/24 05:52 Dose: 112 mcg Documented By: KIM Levothyroxine Sodium (Levothyroxine Sodium 25 Mcg Tablet) 25 mcg PO DAILY@0600 [facility] Last Admin: 07/04/24 05:53 Dose: 25 mcg Documented By: KIM Lisinopril (Lisinopril 10 Mg Tablet) 10 mg PO DAILY [facility]; Protocol Last Admin: 07/04/24 08:03 Dose: 10 mg Documented By: GINO Magnesium Hydroxide (Milk Of Magnesia 30 Ml Oral.Susp) 30 ml PO DAILY PRN PRN Reason: Constipation Melatonin (Melatonin 3 Mg Tablet) 6 mg PO BEDTIME PRN PRN Reason: Insomnia Metronidazole (Metronidazole 500 Mg Tablet) 500 mg PO Q12H [facility] Last Admin: 07/04/24 10:23 Dose: 500 mg Documented By: GINO Naloxone HCl (Naloxone Hcl 0.4 Mg/Ml Vial) 0.04 mg IVPUSH Q5M PRN PRN Reason: Excessive sedation or RR < 8 Ondansetron HCl (Ondansetron Hcl 4 Mg/2 Ml Vial) 4 mg IVPUSH Q8H PRN PRN Reason: Nausea and Vomiting Oxycodone HCl (Oxycodone Hcl Immed Release 5 Mg Tablet) 5 mg PO Q6H PRN PRN Reason: Pain, Moderate(Pain Scale 4-6) Sodium Biphosphate/Sodium Phosphate (Sodium Phosphate,[place]-Dibasic 133 Ml Enema) 118 ml [place] DAILY PRN PRN Reason: Constipation Sodium Chloride (0.9 % Sodium Chloride Flush 3 Ml Syringe) 3 ml IVFLUSH QSHIFT [facility] Last Admin: 07/04/24 08:04 Dose: 3 ml Documented By: GINO Vitamin D (Cholecalciferol (Vitamin D3) 25 Mcg Tablet) 50 mcg PO DAILY [facility] Last Admin: 07/04/24 08:03 Dose: 50 mcg Documented By: GINO Labs 07/04/24 06:38 07/04/24 06:38 Labs: Laboratory Results - last 24 hr 07/03/24 07/04/24 07/04/24 19:41 06:38 07:22 MCV 83.9 MCH 27.6 MCHC 32.9 RDW 13.4 Plt Count 424 H MPV 9.3 L Absolute Nucleated RBC 0.000 Nucleated RBC % (auto) 0.0 Anion Gap 10 L Estim Creat Clear Calc 77.3 Estimated GFR > 60 POC Glucose 218 H 201 H Random Glucose 230 H Calcium 8.1 L D Total Bilirubin 0.3 Direct Bilirubin 0.2 AST 28 ALT 13 Alkaline Phosphatase 96 Total Protein 7.4 Albumin 2.7 L Vitamin B12 825 Folate 9.4 01/11/25 01/11/25 11:33 16:13 MCV MCH MCHC RDW Plt Count MPV Absolute Nucleated RBC Nucleated RBC % (auto) Anion Gap Estim Creat Clear Calc Estimated GFR POC Glucose 326 H 310 H Random Glucose Calcium Total Bilirubin Direct Bilirubin AST ALT Alkaline Phosphatase Total Protein Albumin Vitamin B12 Folate Microbiology Microbiology Results: Microbiology 07/02/24 16:36 Blood Culture - Preliminary Blood - Venous No growth after 24 hours. 07/02/24 16:36 Blood Culture - Preliminary Blood - Venous No growth after 24 hours. Assessment and Plan (1) Diabetic foot ulcer: Status: Acute Plan This is a 53-year-old Hungarian-speaking male with history of insulin-dependent diabetes mellitus with neuropathy, hypertension, hyperlipidemia, hypothyroidism, mood disorder, gastroesophageal reflux disease, CKD, jail care resident who presents to the emergency department for evaluation of left foot infection found to have sepsis course complicated by fluid overload with respiratory failure, anemia and bacteremia Severe sepsis due to infected diabetic foot ulcer, gangrenous 5th toe and purulent cellulitis sepsis resolved MRI left foot with early osteo IV vancomycin and Zosyn initially, ID rec Rocephin and Flagyl; 1 week of Flagyl (end 07/06) and 6 weeks of IV Rocephin upon discharge will need PICC line when repeat blood cultures negative, likely saturday seen by General surgery, s/p amputation of 4,5th toe and debridement of right TMA stump 07/03 Strep agalactiae bacteremia due to foot infection continue IV Rocephin as above ID following repeat blood cultures negative to date echo negative for vegetation Normocytic anemia Likely secondary to chronic kidney disease and iron deficiency No active bleeding discussed with heme> tx 1 units PRBC (06/30/24) and start iron supp stable HH acute respiratory failure with hypoxia due to Bilateral pleural effusion from fluid overload Discussed with Pulm likely fluid overload from IVF. recommended against thoracentesis. echo with ef 70%, normal diastolic function s/p IV lasix able to be weaned off of oxygen follow fluid status closely JJ on CKD 3b resolved Insulin-dependent diabetes mellitus with hyperglycemia continue Sliding scale, ADA diet Hold metformin tresiba - converted to Lantus Elevated transaminases due to sepsis hold statin Hypertension Initially held antihypertensives in the setting of sepsis. Resumed lisinopril and Norvasc Mood disorder Continue home mood stabilizers Mixed hyperlipidemia On statin and fenofibrate, Zetia. Statin on hold Hypothyroidism On Synthroid DVT prophylaxis: Lovenox Full code Requires ongoing inpatient stay for treatment of foot infection, bacteremia requiring IV antibiotics and surgical intervention Quality Stroke Does the patient have a stroke diagnosis?: No VTE Prior VTE?: No VTE Risk Level:: Medical - moderate - high VTE Device Contraindication: Treatment Not Indicated VTE Drug Contraindication: N/A - Med Ordered
[2024-07-04 20:00] VITALS: BP 150/74; PULSE 75; RESP 18; TEMP 36.2; O2SAT 92
[2024-07-04 20:16] LABS: Glucose, Whole Blood 363 mg/dL (60-115)
[2024-07-04] MEDS: cefTRIAXone sodium 2 GM VIAL IVPUSH (20:48)
[2024-07-04] MEDS: Enoxaparin Sodium 40 MG/0.4 ML SYRINGE SUBCUT (20:49)
[2024-07-04 22:38] LABS: Glucose, Whole Blood 273 mg/dL (60-115)
--- NOTE | 2024-07-04 22:47 | MHC.PIE ---
p; poc 363 at 2019 i; dr ribeiro notified. increased s/s - now give 12u admelog and recheck poc in 2 hrs e; poc now 263. dr ribeiro notified. will cont to monitor
[2024-07-04 23:17] VITALS: BP 144/70; PULSE 70; RESP 18; TEMP 37; O2SAT 98
[2024-07-05] VITALS (7 sets, daily range): BP systolic 116–166; BP diastolic 59–80; PULSE 67–72; RESP 17–18; TEMP 36–37; O2SAT 93–98
[2024-07-05] MEDS: Levothyroxine Sodium 112 MCG TABLET PO (06:11)
[2024-07-05] MEDS: Levothyroxine Sodium 25 MCG TABLET PO (06:11)
[2024-07-05] MEDS: Fenofibrate 54 MG TABLET PO (07:54)
[2024-07-05] MEDS: Cholecalciferol (Vitamin D3) 25 MCG TABLET 50 MCG PO (07:54)
[2024-07-05] MEDS: Insulin Lispro 100 UNIT/ML 3 ML VIAL SUBCUT ×8 (07:54→21:49)
[2024-07-05] MEDS: Ezetimibe 10 MG TABLET PO (07:54)
[2024-07-05] MEDS: lisinopriL 10 MG TABLET PO (07:54)
[2024-07-05] MEDS: amLODIPine Besylate 10 MG TABLET PO (07:54)
[2024-07-05] MEDS: Escitalopram Oxalate 10 MG TABLET PO (07:54)
[2024-07-05] MEDS: Insulin Glargine,Hum.rec.anlog 100 UNIT/ML 10 ML VIAL 15 UNIT SUBCUT (07:55)
[2024-07-05] MEDS: 0.9 % Sodium Chloride Flush 3 ML SYRINGE IVFLUSH ×3 (07:56→21:48)
[2024-07-05 07:57] LABS: Glucose, Whole Blood 232 mg/dL (60-115)
[2024-07-05] MEDS: metroNIDAZOLE 500 MG TABLET PO ×2 (10:30→21:48)
[2024-07-05 11:15] LABS: Glucose, Whole Blood 297 mg/dL (60-115)
--- NOTE | 2024-07-05 12:13 | PM.PNGS ---
Subjective Subjective Date of Service: 07/05/24 Interval history: No new complaints Patient does not seem to verbalize much Appears to have some cognitive deficits Physical Exam Vital Signs: Vital Signs: Last Vital Signs Temp 97.8 F 07/05/24 11:46 Pulse 69 07/05/24 11:46 Resp 18 07/05/24 11:46 BP 140/71 H 07/05/24 11:46 Pulse Ox 98 07/05/24 11:46 O2 Del Method Room Air 07/05/24 11:46 O2 Flow Rate 1 07/02/24 16:30 BMI result Body Mass Index 33.4 Const: General: comfortable and no acute distress Resp: Effort & Inspection: normal respiratory effort Extrem: Other: Debridement site on the right transmetatarsal amputation stump clean, no pus, no necrotic tissue Amputation site for the 5th and 4th toes on the left partially open, with loose sutures, some fibrinous debris at the base, otherwise no pus, packing in place Objective Data Active Medications Acetaminophen (Acetaminophen 325 Mg Tablet) 650 mg PO Q6H PRN PRN Reason: Pain, Mild 1-3,fever,headache Last Admin: 07/02/24 17:33 Dose: 650 mg Documented By: BELKYS Amlodipine Besylate (Amlodipine Besylate 10 Mg Tablet) 10 mg PO DAILY [facility]; Protocol Last Admin: 07/05/24 07:54 Dose: 10 mg Documented By: GINO Bisacodyl (Bisacodyl 10 Mg Supp.Rect) 10 mg [place] DAILY PRN PRN Reason: Constipation Calcium Carbonate (Calcium Carbonate 750 Mg Tab.Chew) 750 mg PO Q4H PRN PRN Reason: Heartburn Ceftriaxone Sodium (Ceftriaxone Sodium 2 Gm Vial) 2 gm IVPUSH 2200 [facility] Last Admin: 07/04/24 20:48 Dose: 2 gm Documented By: KIM Ezetimibe (Ezetimibe 10 Mg Tablet) 10 mg PO DAILY [facility] Last Admin: 07/05/24 07:54 Dose: 10 mg Documented By: GINO Enoxaparin Sodium (Enoxaparin Sodium 40 Mg/0.4 Ml Syringe) 40 mg SUBCUT Q24H [facility] Last Admin: 07/04/24 20:49 Dose: 40 mg Documented By: KIM Escitalopram Oxalate (Escitalopram Oxalate 10 Mg Tablet) 10 mg PO DAILY [facility] Last Admin: 07/05/24 07:54 Dose: 10 mg Documented By: GINO Fenofibrate (Fenofibrate 54 Mg Tablet) 54 mg PO DAILY [facility] Last Admin: 07/05/24 07:54 Dose: 54 mg Documented By: GINO Furosemide (Furosemide 20 Mg/2 Ml Vial) 20 mg IVPUSH BID@0900,1800 [facility]; Protocol Last Admin: 07/02/24 17:24 Dose: 20 mg Documented By: BELKYS Glucose (Glucose Gel 15 Gm Gel..Gram.) 15 gm PO Q15M PRN; Protocol PRN Reason: per Hypoglycemia Standing Ord. Dextrose (D10) 250 mls @ 750 mls/hr IV Q15M PRN; Protocol PRN Reason: per Hypoglycemia Standing Ord. Insulin Glargine (Insulin Glargine,Hum.Rec.Anlog 100 Unit/Ml 10 Ml Vial) 15 unit SUBCUT DAILY [facility] Last Admin: 07/05/24 07:55 Dose: 15 unit Documented By: GINO Insulin Human Lispro (Insulin Lispro 100 Unit/Ml 3 Ml Vial) 0 unit SUBCUT QIDACHS [facility]; Protocol Last Admin: 07/05/24 11:48 Dose: 8 unit Documented By: GINO Insulin Human Lispro (Insulin Lispro 100 Unit/Ml 3 Ml Vial) 5 unit SUBCUT QIDAS [facility] Last Admin: 07/05/24 11:48 Dose: 5 unit Documented By: GINO Levothyroxine Sodium (Levothyroxine Sodium 112 Mcg Tablet) 112 mcg PO DAILY@0600 [facility] Last Admin: 07/05/24 06:11 Dose: 112 mcg Documented By: KIM Levothyroxine Sodium (Levothyroxine Sodium 25 Mcg Tablet) 25 mcg PO DAILY@0600 [facility] Last Admin: 07/05/24 06:11 Dose: 25 mcg Documented By: KIM Lisinopril (Lisinopril 10 Mg Tablet) 10 mg PO DAILY [facility]; Protocol Last Admin: 07/05/24 07:54 Dose: 10 mg Documented By: GINO Magnesium Hydroxide (Milk Of Magnesia 30 Ml Oral.Susp) 30 ml PO DAILY PRN PRN Reason: Constipation Melatonin (Melatonin 3 Mg Tablet) 6 mg PO BEDTIME PRN PRN Reason: Insomnia Metronidazole (Metronidazole 500 Mg Tablet) 500 mg PO Q12H [facility] Last Admin: 07/05/24 10:30 Dose: 500 mg Documented By: GINO Naloxone HCl (Naloxone Hcl 0.4 Mg/Ml Vial) 0.04 mg IVPUSH Q5M PRN PRN Reason: Excessive sedation or RR < 8 Ondansetron HCl (Ondansetron Hcl 4 Mg/2 Ml Vial) 4 mg IVPUSH Q8H PRN PRN Reason: Nausea and Vomiting Oxycodone HCl (Oxycodone Hcl Immed Release 5 Mg Tablet) 5 mg PO Q6H PRN PRN Reason: Pain, Moderate(Pain Scale 4-6) Sodium Biphosphate/Sodium Phosphate (Sodium Phosphate,[place]-Dibasic 133 Ml Enema) 118 ml [place] DAILY PRN PRN Reason: Constipation Sodium Chloride (0.9 % Sodium Chloride Flush 3 Ml Syringe) 3 ml IVFLUSH QSHIFT [facility] Last Admin: 07/05/24 07:56 Dose: 3 ml Documented By: GINO Vitamin D (Cholecalciferol (Vitamin D3) 25 Mcg Tablet) 50 mcg PO DAILY [facility] Last Admin: 07/05/24 07:54 Dose: 50 mcg Documented By: GINO Labs 07/04/24 06:38 07/04/24 06:38 Labs: Laboratory Results - last 24 hr 07/04/24 07/04/24 07/04/24 16:13 20:12 22:34 POC Glucose 310 H 363 H* 273 H 07/05/24 07/05/24 07:41 11:07 POC Glucose 232 H 297 H Microbiology Microbiology Results: Microbiology 07/02/24 16:36 Blood Culture - Preliminary Blood - Venous No growth after 48 hours. 07/02/24 16:36 Blood Culture - Preliminary Blood - Venous No growth after 48 hours. Procedures Date of Service Date of Service: 07/05/24 Progress Note: A&P Assessment and plan (1) Diabetic foot ulcer: Status: Acute Assessment and Plan: Status post amputation of the 4th and 5th toes on the left, debridement of transmetatarsal amputation on the right I removed the packing on the amputation site on the left and replaced with wet-to-dry gauze I applied wet-to-dry dressings on the right foot debridement site Both sites wrapped with thick dressings and Kerlix roll He will need intensive wound care going forward Long discussion with the family at bedside - the patient is going to a correction; family says that he may be having early onset dementia and has difficulty with hemorrhoids I emphasized with the family the importance of good blood sugar control Time Spent With Patient Time: Total time managing care of this patient today ____ minutes. Quality Stroke Does the patient have a stroke diagnosis?: No VTE Prior VTE?: No VTE Risk Level:: Medical - moderate - high VTE Device Contraindication: Treatment Not Indicated VTE Drug Contraindication: N/A - Med Ordered
--- NOTE | 2024-07-05 12:52 | P.PNIM_ITS ---
Subjective Subjective Date of Service: 07/05/24 Interval History: seen and examined this morning follow up for foot wounds awake, alert, no complaints history obtained with assistance of service supervisor Review of Systems Review of Systems: Yes all other systems are reviewed and are negative Constitutional Constitutional: Denies chills and Denies fever(s) Cardiovascular Cardiovascular: Denies chest pain Physical Exam 2 Vital Signs: Vital Signs: Last Vital Signs Temp 97.8 F 07/05/24 11:46 Pulse 69 07/05/24 11:46 Resp 18 07/05/24 11:46 BP 140/71 H 07/05/24 11:46 Pulse Ox 98 07/05/24 11:46 O2 Del Method Room Air 07/05/24 11:46 O2 Flow Rate 1 07/02/24 16:30 BMI result Body Mass Index 33.4 Const: General: cooperative, comfortable, alert and awake Nutritional Appearance: overweight Resp: Effort & Inspection: normal respiratory effort, able to speak in complete sentences, no respiratory distress and no use of accessory muscles A uscultation: clear to auscultation bilaterally Cardio: Rate: regular rate GI: Inspection: No distended Palpation (GI): Soft to palpation Skin: Other: b/l feet wrapped in c/d/i dressings Neuro: General: moves all extremities and CN's II-XI intact bilaterally Objective Data Active Medications Acetaminophen (Acetaminophen 325 Mg Tablet) 650 mg PO Q6H PRN PRN Reason: Pain, Mild 1-3,fever,headache Last Admin: 07/02/24 17:33 Dose: 650 mg Documented By: BELKYS Amlodipine Besylate (Amlodipine Besylate 10 Mg Tablet) 10 mg PO DAILY [facility]; Protocol Last Admin: 07/05/24 07:54 Dose: 10 mg Documented By: GINO Bisacodyl (Bisacodyl 10 Mg Supp.Rect) 10 mg [place] DAILY PRN PRN Reason: Constipation Calcium Carbonate (Calcium Carbonate 750 Mg Tab.Chew) 750 mg PO Q4H PRN PRN Reason: Heartburn Ceftriaxone Sodium (Ceftriaxone Sodium 2 Gm Vial) 2 gm IVPUSH 2200 [facility] Last Admin: 07/04/24 20:48 Dose: 2 gm Documented By: KIM Ezetimibe (Ezetimibe 10 Mg Tablet) 10 mg PO DAILY [facility] Last Admin: 07/05/24 07:54 Dose: 10 mg Documented By: GINO Enoxaparin Sodium (Enoxaparin Sodium 40 Mg/0.4 Ml Syringe) 40 mg SUBCUT Q24H [facility] Last Admin: 07/04/24 20:49 Dose: 40 mg Documented By: KIM Escitalopram Oxalate (Escitalopram Oxalate 10 Mg Tablet) 10 mg PO DAILY [facility] Last Admin: 07/05/24 07:54 Dose: 10 mg Documented By: GINO Fenofibrate (Fenofibrate 54 Mg Tablet) 54 mg PO DAILY [facility] Last Admin: 07/05/24 07:54 Dose: 54 mg Documented By: GINO Furosemide (Furosemide 20 Mg/2 Ml Vial) 20 mg IVPUSH BID@0900,1800 [facility]; Protocol Last Admin: 07/02/24 17:24 Dose: 20 mg Documented By: BELKYS Glucose (Glucose Gel 15 Gm Gel..Gram.) 15 gm PO Q15M PRN; Protocol PRN Reason: per Hypoglycemia Standing Ord. Dextrose (D10) 250 mls @ 750 mls/hr IV Q15M PRN; Protocol PRN Reason: per Hypoglycemia Standing Ord. Insulin Glargine (Insulin Glargine,Hum.Rec.Anlog 100 Unit/Ml 10 Ml Vial) 15 unit SUBCUT DAILY [facility] Last Admin: 07/05/24 07:55 Dose: 15 unit Documented By: GINO Insulin Human Lispro (Insulin Lispro 100 Unit/Ml 3 Ml Vial) 0 unit SUBCUT QIDACHS [facility]; Protocol Last Admin: 07/05/24 11:48 Dose: 8 unit Documented By: GINO Insulin Human Lispro (Insulin Lispro 100 Unit/Ml 3 Ml Vial) 5 unit SUBCUT QIDACHS [facility] Last Admin: 07/05/24 11:48 Dose: 5 unit Documented By: GINO Levothyroxine Sodium (Levothyroxine Sodium 112 Mcg Tablet) 112 mcg PO DAILY@0600 [facility] Last Admin: 07/05/24 06:11 Dose: 112 mcg Documented By: KIM Levothyroxine Sodium (Levothyroxine Sodium 25 Mcg Tablet) 25 mcg PO DAILY@0600 [facility] Last Admin: 07/05/24 06:11 Dose: 25 mcg Documented By: KIM Lisinopril (Lisinopril 10 Mg Tablet) 10 mg PO DAILY [facility]; Protocol Last Admin: 07/05/24 07:54 Dose: 10 mg Documented By: GINO Magnesium Hydroxide (Milk Of Magnesia 30 Ml Oral.Susp) 30 ml PO DAILY PRN PRN Reason: Constipation Melatonin (Melatonin 3 Mg Tablet) 6 mg PO BEDTIME PRN PRN Reason: Insomnia Metronidazole (Metronidazole 500 Mg Tablet) 500 mg PO Q12H [facility] Last Admin: 07/05/24 10:30 Dose: 500 mg Documented By: GINO Naloxone HCl (Naloxone Hcl 0.4 Mg/Ml Vial) 0.04 mg IVPUSH Q5M PRN PRN Reason: Excessive sedation or RR < 8 Ondansetron HCl (Ondansetron Hcl 4 Mg/2 Ml Vial) 4 mg IVPUSH Q8H PRN PRN Reason: Nausea and Vomiting Oxycodone HCl (Oxycodone Hcl Immed Release 5 Mg Tablet) 5 mg PO Q6H PRN PRN Reason: Pain, Moderate(Pain Scale 4-6) Sodium Biphosphate/Sodium Phosphate (Sodium Phosphate,[place]-Dibasic 133 Ml Enema) 118 ml [place] DAILY PRN PRN Reason: Constipation Sodium Chloride (0.9 % Sodium Chloride Flush 3 Ml Syringe) 3 ml IVFLUSH QSHIFT [facility] Last Admin: 07/05/24 07:56 Dose: 3 ml Documented By: GINO Vitamin D (Cholecalciferol (Vitamin D3) 25 Mcg Tablet) 50 mcg PO DAILY [facility] Last Admin: 07/05/24 07:54 Dose: 50 mcg Documented By: GINO Labs 07/04/24 06:38 07/04/24 06:38 Labs: Laboratory Results - last 24 hr 07/04/24 07/04/24 07/04/24 16:13 20:12 22:34 POC Glucose 310 H 363 H* 273 H 07/05/24 07/05/24 07:41 11:07 POC Glucose 232 H 297 H Microbiology Microbiology Results: Microbiology 07/02/24 16:36 Blood Culture - Preliminary Blood - Venous No growth after 48 hours. 07/02/24 16:36 Blood Culture - Preliminary Blood - Venous No growth after 48 hours. Assessment and Plan (1) Diabetic foot ulcer: Status: Acute Plan This is a 53-year-old Czech-speaking male with history of insulin-dependent diabetes mellitus with neuropathy, hypertension, hyperlipidemia, hypothyroidism, mood disorder, gastroesophageal reflux disease, CKD, [facility] care resident who presents to the emergency department for evaluation of left foot infection found to have sepsis course complicated by fluid overload with respiratory failure, anemia and bacteremia Severe sepsis due to infected diabetic foot ulcer, gangrenous 5th toe and purulent cellulitis sepsis resolved MRI left foot with early osteo IV vancomycin and Zosyn initially, ID rec Rocephin and Flagyl; 1 week of Flagyl (end 07/06) and 6 weeks of IV Rocephin upon discharge will need PICC line, ordered placed General surgery following, s/p amputation of 4,5th toe and debridement of right TMA stump 07/03 Strep agalactiae bacteremia due to foot infection continue IV Rocephin as above ID following repeat blood cultures negative to date echo negative for vegetation Normocytic anemia Likely secondary to chronic kidney disease and iron deficiency No active bleeding discussed with heme> tx 1 units PRBC (06/30/24) and start iron supp stable HH acute respiratory failure with hypoxia due to Bilateral pleural effusion from fluid overload Discussed with Pulm likely fluid overload from IVF. recommended against thoracentesis. echo with ef 70%, normal diastolic function s/p IV lasix able to be weaned off of oxygen. remains stable on room air. no respiratory symptoms JJ on CKD 3b resolved Insulin-dependent diabetes mellitus with hyperglycemia continue Sliding scale, ADA diet Hold metformin tresiba - converted to Lantus - uptitrated and premeal insulin added as blood sugar uncontrolled Elevated transaminases due to sepsis. returned to normal statin has been on hold, can resume upon discharge Hypertension Initially held antihypertensives in the setting of sepsis. Resumed lisinopril and Norvasc Mood disorder Continue home mood stabilizers Mixed hyperlipidemia On statin and fenofibrate, Zetia. Statin on hold Hypothyroidism On Synthroid DVT prophylaxis: Lovenox Full code dispo - long discussion with pt family and HCP - they do not want him to return to [facility]. cm aware Requires ongoing inpatient stay for treatment of foot infection, bacteremia requiring IV antibiotics and surgical intervention Quality Stroke Does the patient have a stroke diagnosis?: No VTE Prior VTE?: No VTE Risk Level:: Medical - moderate - high VTE Device Contraindication: Treatment Not Indicated VTE Drug Contraindication: N/A - Med Ordered
--- NOTE | 2024-07-05 14:20 | MHC.CM.PN ---
per shahid family does not want pt to return to [facility] when dcd they were not happy with the facility t/w then spoke w/interpertator to pts sister ana [phone] and explined that we maryjo put out addiional referals to other facilities BUT if another bed does not become avaliable at the tiime time pt is dcd he will need to return to [facility] and that the sw at [facility] could assist with and continue the process of getting pt transferred to another facility Ana voived her understanding
--- NOTE | 2024-07-05 15:09 | PC.NURSE ---
MD Maddox at bedside to change bilateral foot dressings this AM. Pt tolerated well.
[2024-07-05 16:29] LABS: Glucose, Whole Blood 239 mg/dL (60-115)
--- NOTE | 2024-07-05 19:07 | HO.POSTANES ---
Post Anesthesia Evaluation Post Anesthesia Evaluation Date of Service: 07/05/24 Vital Signs: Vital Signs Temp Pulse Resp BP Pulse Ox O2 Del Method 07/05/24 15:10 97.6 F 70 18 148/80 H 96 Room Air 07/05/24 13:00 95 Room Air 07/05/24 11:46 97.8 F 69 18 140/71 H 98 Room Air 07/05/24 07:38 97.7 F 72 18 166/78 H 97 Room Air Anesthesia: General Mental Status: Awake Pain Control: Satisfactory Nausea/Vomiting: None Hydration: Adequate Anesthesia-Related Issues: No Anes. Related Issues
[2024-07-05] MEDS: Enoxaparin Sodium 40 MG/0.4 ML SYRINGE SUBCUT (20:14)
[2024-07-05 20:57] LABS: Glucose, Whole Blood 249 mg/dL (60-115)
[2024-07-05] MEDS: cefTRIAXone sodium 2 GM VIAL IVPUSH (21:48)
[2024-07-06] VITALS (7 sets, daily range): BP systolic 113–141; BP diastolic 62–75; PULSE 68–73; RESP 15–20; TEMP 36–36.3; O2SAT 93–98
[2024-07-06] MEDS: Levothyroxine Sodium 112 MCG TABLET PO (05:34)
[2024-07-06] MEDS: Levothyroxine Sodium 25 MCG TABLET PO (05:34)
[2024-07-06 06:53] LABS: Anion Gap 11 (12-20); Blood Urea Nitrogen 24 mg/dL (9-16); Calcium 8.8 mg/dL (8.4-10.2); Carbon Dioxide 23 mmol/L (22-29); Chloride 105 mmol/L (96-108); Creatinine Clr Calc Pharmacy 66.2; Estimated Glomerular Filt Rate 50; Glucose Random 246 mg/dL (60-115); Potassium 4.3 mmol/L (3.3-5.1); Sodium 135 mmol/L (135-145)
[2024-07-06 07:35] LABS: Glucose, Whole Blood 272 mg/dL (60-115)
[2024-07-06] MEDS: Insulin Lispro 100 UNIT/ML 3 ML VIAL SUBCUT ×8 (07:58→21:30)
[2024-07-06] MEDS: Insulin Glargine,Hum.rec.anlog 100 UNIT/ML 10 ML VIAL 15 UNIT SUBCUT (07:58)
[2024-07-06] MEDS: Cholecalciferol (Vitamin D3) 25 MCG TABLET 50 MCG PO (07:58)
[2024-07-06] MEDS: lisinopriL 10 MG TABLET PO (07:59)
[2024-07-06] MEDS: 0.9 % Sodium Chloride Flush 3 ML SYRINGE IVFLUSH ×2 (07:59→21:30)
[2024-07-06] MEDS: Ezetimibe 10 MG TABLET PO (07:59)
[2024-07-06] MEDS: Fenofibrate 54 MG TABLET PO (07:59)
[2024-07-06] MEDS: Escitalopram Oxalate 10 MG TABLET PO (07:59)
[2024-07-06] MEDS: amLODIPine Besylate 10 MG TABLET PO (07:59)
[2024-07-06] MEDS: metroNIDAZOLE 500 MG TABLET PO ×2 (10:54→21:29)
[2024-07-06 11:30] LABS: Glucose, Whole Blood 334 mg/dL (60-115)
--- NOTE | 2024-07-06 11:42 | P.PNIM_ITS ---
Subjective Subjective Date of Service: 07/06/24 Interval History: seen and examined this morning follow up for foot wounds awake, alert, no complaints history obtained with assistance of interpreter deaf Review of Systems Review of Systems: Yes all other systems are reviewed and are negative Constitutional Constitutional: Denies chills and Denies fever(s) Cardiovascular Cardiovascular: Denies chest pain Physical Exam 2 Vital Signs: Vital Signs: Last Vital Signs Temp 97 F 07/06/24 11:22 Pulse 69 07/06/24 11:22 Resp 15 07/06/24 11:22 BP 131/72 07/06/24 11:22 Pulse Ox 93 07/06/24 11:22 O2 Del Method Room Air 07/06/24 11:22 O2 Flow Rate 1 07/02/24 16:30 BMI result Body Mass Index 33.4 Appearing in no acute distress lung sounds are clear to auscultation heart regular rate rhythm, clear S1, S2 positive bowel sounds, abdomen is soft, nontender neuro patient is alert x3, no focal deficits Objective Data Active Medications Acetaminophen (Acetaminophen 325 Mg Tablet) 650 mg PO Q6H PRN PRN Reason: Pain, Mild 1-3,fever,headache Last Admin: 07/02/24 17:33 Dose: 650 mg Documented By: BLEKYS Amlodipine Besylate (Amlodipine Besylate 10 Mg Tablet) 10 mg PO DAILY [facility]; Protocol Last Admin: 07/06/24 07:59 Dose: 10 mg Documented By: SRUTHI Bisacodyl (Bisacodyl 10 Mg Supp.Rect) 10 mg NC DAILY PRN PRN Reason: Constipation Calcium Carbonate (Calcium Carbonate 750 Mg Tab.Chew) 750 mg PO Q4H PRN PRN Reason: Heartburn Ceftriaxone Sodium (Ceftriaxone Sodium 2 Gm Vial) 2 gm IVPUSH 2200 [facility] Last Admin: 07/05/24 21:48 Dose: 2 gm Documented By: JORGE Ezetimibe (Ezetimibe 10 Mg Tablet) 10 mg PO DAILY [facility] Last Admin: 07/06/24 07:59 Dose: 10 mg Documented By: SRUTHI Enoxaparin Sodium (Enoxaparin Sodium 40 Mg/0.4 Ml Syringe) 40 mg SUBCUT Q24H [facility] Last Admin: 07/05/24 20:14 Dose: 40 mg Documented By: JORGE Escitalopram Oxalate (Escitalopram Oxalate 10 Mg Tablet) 10 mg PO DAILY [facility] Last Admin: 07/06/24 07:59 Dose: 10 mg Documented By: SRUTHI Fenofibrate (Fenofibrate 54 Mg Tablet) 54 mg PO DAILY [facility] Last Admin: 07/06/24 07:59 Dose: 54 mg Documented By: SRUTHI Furosemide (Furosemide 20 Mg/2 Ml Vial) 20 mg IVPUSH BID@0900,1800 [facility]; Protocol Last Admin: 07/02/24 17:24 Dose: 20 mg Documented By: BELKYS Glucose (Glucose Gel 15 Gm Gel..Gram.) 15 gm PO Q15M PRN; Protocol PRN Reason: per Hypoglycemia Standing Ord. Dextrose (D10) 250 mls @ 750 mls/hr IV Q15M PRN; Protocol PRN Reason: per Hypoglycemia Standing Ord. Insulin Glargine (Insulin Glargine,Hum.Rec.Anlog 100 Unit/Ml 10 Ml Vial) 15 unit SUBCUT DAILY [facility] Last Admin: 07/06/24 07:58 Dose: 15 unit Documented By: SRUTHI Insulin Human Lispro (Insulin Lispro 100 Unit/Ml 3 Ml Vial) 0 unit SUBCUT QIDACHS [facility]; Protocol Last Admin: 07/06/24 07:58 Dose: 6 unit Documented By: SRUTHI Insulin Human Lispro (Insulin Lispro 100 Unit/Ml 3 Ml Vial) 5 unit SUBCUT QIDAS [facility] Last Admin: 07/06/24 07:58 Dose: 5 unit Documented By: SRUTHI Levothyroxine Sodium (Levothyroxine Sodium 112 Mcg Tablet) 112 mcg PO DAILY@0600 [facility] Last Admin: 07/06/24 05:34 Dose: 112 mcg Documented By: JORGE Levothyroxine Sodium (Levothyroxine Sodium 25 Mcg Tablet) 25 mcg PO DAILY@0600 [facility] Last Admin: 07/06/24 05:34 Dose: 25 mcg Documented By: JORGE Lisinopril (Lisinopril 10 Mg Tablet) 10 mg PO DAILY [facility]; Protocol Last Admin: 07/06/24 07:59 Dose: 10 mg Documented By: SRUTHI Magnesium Hydroxide (Milk Of Magnesia 30 Ml Oral.Susp) 30 ml PO DAILY PRN PRN Reason: Constipation Melatonin (Melatonin 3 Mg Tablet) 6 mg PO BEDTIME PRN PRN Reason: Insomnia Metronidazole (Metronidazole 500 Mg Tablet) 500 mg PO Q12H [facility] Stop: 07/06/24 23:59 Last Admin: 07/06/24 10:54 Dose: 500 mg Documented By: SRUTHI Naloxone HCl (Naloxone Hcl 0.4 Mg/Ml Vial) 0.04 mg IVPUSH Q5M PRN PRN Reason: Excessive sedation or RR < 8 Ondansetron HCl (Ondansetron Hcl 4 Mg/2 Ml Vial) 4 mg IVPUSH Q8H PRN PRN Reason: Nausea and Vomiting Oxycodone HCl (Oxycodone Hcl Immed Release 5 Mg Tablet) 5 mg PO Q6H PRN PRN Reason: Pain, Moderate(Pain Scale 4-6) Sodium Biphosphate/Sodium Phosphate (Sodium Phosphate,Porter-Dibasic 133 Ml Enema) 118 ml NC DAILY PRN PRN Reason: Constipation Sodium Chloride (0.9 % Sodium Chloride Flush 3 Ml Syringe) 3 ml IVFLUSH QSHIFT [facility] Last Admin: 07/06/24 07:59 Dose: 3 ml Documented By: SRUTHI Vitamin D (Cholecalciferol (Vitamin D3) 25 Mcg Tablet) 50 mcg PO DAILY [facility] Last Admin: 07/06/24 07:58 Dose: 50 mcg Documented By: SRUTHI Labs 07/04/24 06:38 07/06/24 05:34 Labs: Laboratory Results - last 24 hr 07/05/24 07/05/24 07/06/24 16:22 20:32 05:34 Hold Purple Top SEE NOTE Anion Gap 11 L Estim Creat Clear Calc 66.2 Estimated GFR 50 POC Glucose 239 H 249 H Random Glucose 246 H Calcium 8.8 D 07/06/24 07/06/24 07:20 11:18 Hold Purple Top Anion Gap Estim Creat Clear Calc Estimated GFR POC Glucose 272 H 334 H Random Glucose Calcium Assessment and Plan (1) Diabetic foot ulcer: Status: Acute Plan This is a 53-year-old Greek-speaking male with history of insulin-dependent diabetes mellitus with neuropathy, hypertension, hyperlipidemia, hypothyroidism, mood disorder, gastroesophageal reflux disease, CKD, [employer] [facility] care resident who presents to the emergency department for evaluation of left foot infection found to have sepsis course complicated by fluid overload with respiratory failure, anemia and bacteremia Severe sepsis due to infected diabetic foot ulcer, gangrenous 5th toe and purulent cellulitis sepsis resolved MRI left foot with early osteo IV vancomycin and Zosyn initially, ID rec Rocephin and Flagyl; 1 week of Flagyl (end 07/06) and 6 weeks of IV Rocephin upon discharge Teran cath ordered (CKD) General surgery following, s/p amputation of 4,5th toe and debridement of right TMA stump 07/03 Strep agalactiae bacteremia due to foot infection continue IV Rocephin as above ID following repeat blood cultures negative to date echo negative for vegetation Normocytic anemia Likely secondary to chronic kidney disease and iron deficiency No active bleeding discussed with heme> tx 1 units PRBC (06/30/24) and start iron supp stable HH acute respiratory failure with hypoxia due to Bilateral pleural effusion from fluid overload Discussed with Pulm likely fluid overload from IVF. recommended against thoracentesis. echo with ef 70%, normal diastolic function s/p IV lasix able to be weaned off of oxygen. remains stable on room air. no respiratory symptoms JJ on CKD 3b resolved Insulin-dependent diabetes mellitus with hyperglycemia continue Sliding scale, ADA diet Hold metformin tresiba - converted to Lantus - uptitrated and premeal insulin added as blood sugar uncontrolled Elevated transaminases due to sepsis. returned to normal statin has been on hold, can resume upon discharge Hypertension Initially held antihypertensives in the setting of sepsis. Resumed lisinopril and Norvasc Mood disorder Continue home mood stabilizers Mixed hyperlipidemia On statin and fenofibrate, Zetia. Statin on hold Hypothyroidism On Synthroid DVT prophylaxis: Lovenox Full code dispo - long discussion with pt family and HCP - they do not want him to return to [facility]. cm aware Requires ongoing inpatient stay for treatment of foot infection, bacteremia requiring IV antibiotics and surgical intervention Quality Stroke Does the patient have a stroke diagnosis?: No VTE Prior VTE?: No VTE Risk Level:: Medical - moderate - high VTE Device Contraindication: Treatment Not Indicated VTE Drug Contraindication: N/A - Med Ordered
--- NOTE | 2024-07-06 15:40 | MHC.CM.PN ---
Per MD rounds patient not medically cleared for dc. Family requesting new LTC placement if possible - Dex Smith is reviewing. Will need payton and 10 days Rocephin on dc. CM will continue to follow.
[2024-07-06 16:21] LABS: Glucose, Whole Blood 293 mg/dL (60-115)
[2024-07-06 20:21] LABS: Glucose, Whole Blood 240 mg/dL (60-115)
[2024-07-06] MEDS: cefTRIAXone sodium 2 GM VIAL IVPUSH (21:29)
[2024-07-06] MEDS: Enoxaparin Sodium 40 MG/0.4 ML SYRINGE SUBCUT (21:30)
[2024-07-07] VITALS (10 sets, daily range): BP systolic 111–156; BP diastolic 64–89; PULSE 65–73; RESP 10–20; TEMP 36–36.4; O2SAT 94–99
[2024-07-07] MEDS: Levothyroxine Sodium 25 MCG TABLET PO (05:32)
[2024-07-07] MEDS: Levothyroxine Sodium 112 MCG TABLET PO (05:32)
--- NOTE | 2024-07-07 07:51 | P.PNGS_ITS ---
Subjective Subjective Date of Service: 07/07/24 Patient reports: no new complaints Physical Exam 2 Vital Signs: Vital Signs: Last Vital Signs Temp 96.8 F 07/07/24 03:26 Pulse 65 07/07/24 03:26 Resp 18 07/07/24 03:26 BP 124/74 07/07/24 03:26 Pulse Ox 95 07/07/24 03:26 O2 Del Method Room Air 07/07/24 03:26 O2 Flow Rate 1 07/02/24 16:30 BMI result Body Mass Index 33.4 Const: General: no acute distress Nutritional Appearance: well nourished Resp: Effort & Inspection: normal respiratory effort Extrem: Other: dressings changed to the bilateral feet. Overall the left foot appears improved with no new necrotic tissue or erythema. Objective Data Active Medications Acetaminophen (Acetaminophen 325 Mg Tablet) 650 mg PO Q6H PRN PRN Reason: Pain, Mild 1-3,fever,headache Last Admin: 07/02/24 17:33 Dose: 650 mg Documented By: BELKYS Amlodipine Besylate (Amlodipine Besylate 10 Mg Tablet) 10 mg PO DAILY [facility]; Protocol Last Admin: 07/06/24 07:59 Dose: 10 mg Documented By: SRUTHI Bisacodyl (Bisacodyl 10 Mg Supp.Rect) 10 mg MS DAILY PRN PRN Reason: Constipation Calcium Carbonate (Calcium Carbonate 750 Mg Tab.Chew) 750 mg PO Q4H PRN PRN Reason: Heartburn Ceftriaxone Sodium (Ceftriaxone Sodium 2 Gm Vial) 2 gm IVPUSH 2200 [facility] Last Admin: 07/06/24 21:29 Dose: 2 gm Documented By: RAQUEL Ezetimibe (Ezetimibe 10 Mg Tablet) 10 mg PO DAILY [facility] Last Admin: 07/06/24 07:59 Dose: 10 mg Documented By: SRUTHI Enoxaparin Sodium (Enoxaparin Sodium 40 Mg/0.4 Ml Syringe) 40 mg SUBCUT Q24H [facility] Last Admin: 07/06/24 21:30 Dose: 40 mg Documented By: RAQUEL Escitalopram Oxalate (Escitalopram Oxalate 10 Mg Tablet) 10 mg PO DAILY [facility] Last Admin: 07/06/24 07:59 Dose: 10 mg Documented By: SRUTHI Fenofibrate (Fenofibrate 54 Mg Tablet) 54 mg PO DAILY [facility] Last Admin: 07/06/24 07:59 Dose: 54 mg Documented By: SRUTHI Ferrous Sulfate (Ferrous Sulfate 324 Mg Tablet.Dr) 324 mg PO DAILY [facility] Glucose (Glucose Gel 15 Gm Gel..Gram.) 15 gm PO Q15M PRN; Protocol PRN Reason: per Hypoglycemia Standing Ord. Dextrose (D10) 250 mls @ 750 mls/hr IV Q15M PRN; Protocol PRN Reason: per Hypoglycemia Standing Ord. Insulin Glargine (Insulin Glargine,Hum.Rec.Anlog 100 Unit/Ml 10 Ml Vial) 15 unit SUBCUT DAILY [facility] Last Admin: 07/06/24 07:58 Dose: 15 unit Documented By: SRUTHI Insulin Human Lispro (Insulin Lispro 100 Unit/Ml 3 Ml Vial) 0 unit SUBCUT QIDAS [facility]; Protocol Last Admin: 07/06/24 21:29 Dose: 6 unit Documented By: RAQUEL Insulin Human Lispro (Insulin Lispro 100 Unit/Ml 3 Ml Vial) 5 unit SUBCUT QIDAS [facility] Last Admin: 07/06/24 21:30 Dose: 5 unit Documented By: RAQUEL Levothyroxine Sodium (Levothyroxine Sodium 112 Mcg Tablet) 112 mcg PO DAILY@0600 [facility] Last Admin: 07/07/24 05:32 Dose: 112 mcg Documented By: RAQUEL Levothyroxine Sodium (Levothyroxine Sodium 25 Mcg Tablet) 25 mcg PO DAILY@0600 [facility] Last Admin: 07/07/24 05:32 Dose: 25 mcg Documented By: RAQUEL Lisinopril (Lisinopril 10 Mg Tablet) 10 mg PO DAILY [facility]; Protocol Last Admin: 07/06/24 07:59 Dose: 10 mg Documented By: SRUTHI Magnesium Hydroxide (Milk Of Magnesia 30 Ml Oral.Susp) 30 ml PO DAILY PRN PRN Reason: Constipation Melatonin (Melatonin 3 Mg Tablet) 6 mg PO BEDTIME PRN PRN Reason: Insomnia Naloxone HCl (Naloxone Hcl 0.4 Mg/Ml Vial) 0.04 mg IVPUSH Q5M PRN PRN Reason: Excessive sedation or RR < 8 Ondansetron HCl (Ondansetron Hcl 4 Mg/2 Ml Vial) 4 mg IVPUSH Q8H PRN PRN Reason: Nausea and Vomiting Oxycodone HCl (Oxycodone Hcl Immed Release 5 Mg Tablet) 5 mg PO Q6H PRN PRN Reason: Pain, Moderate(Pain Scale 4-6) Sodium Biphosphate/Sodium Phosphate (Sodium Phosphate,[place]ergus-Dibasic 133 Ml Enema) 118 ml MS DAILY PRN PRN Reason: Constipation Sodium Chloride (0.9 % Sodium Chloride Flush 3 Ml Syringe) 3 ml IVFLUSH QSHIFT [facility] Last Admin: 07/06/24 21:30 Dose: 3 ml Documented By: RAQUEL Vitamin D (Cholecalciferol (Vitamin D3) 25 Mcg Tablet) 50 mcg PO DAILY [facility] Last Admin: 07/06/24 07:58 Dose: 50 mcg Documented By: SRUTHI Labs 07/04/24 06:38 07/06/24 05:34 Labs: Laboratory Results - last 24 hr 07/06/24 07/06/24 07/06/24 11:18 16:04 20:09 POC Glucose 334 H 293 H 240 H Procedures Date of Service Date of Service: 07/07/24 Progress Note: A&P Assessment and plan (1) Diabetic foot ulcer: Status: Acute Plan Previous history of right TMA and now s/p left 4th and 5th toe amp. No evidence of new infection or necrosis. Recommend daily dressing changes with Silver alginate, fluffed gauze and Kerlex to bilateral feet. He should keep feet elevated as much as possible and avoid prolonged standing. He should follow up in the office in 1 - 2 weeks or alternatively be [facility]. Time Spent With Patient Time: Total time managing care of this patient today ____ minutes. Quality Stroke Does the patient have a stroke diagnosis?: No VTE Prior VTE?: No VTE Risk Level:: Medical - moderate - high VTE Device Contraindication: Treatment Not Indicated VTE Drug Contraindication: N/A - Med Ordered
[2024-07-07] MEDS: Insulin Lispro 100 UNIT/ML 3 ML VIAL SUBCUT ×6 (08:03→16:39)
[2024-07-07] MEDS: Fenofibrate 54 MG TABLET PO (08:04)
[2024-07-07] MEDS: Insulin Glargine,Hum.rec.anlog 100 UNIT/ML 10 ML VIAL 15 UNIT SUBCUT (08:04)
[2024-07-07] MEDS: amLODIPine Besylate 10 MG TABLET PO (08:04)
[2024-07-07] MEDS: Ezetimibe 10 MG TABLET PO (08:04)
[2024-07-07] MEDS: Escitalopram Oxalate 10 MG TABLET PO (08:04)
[2024-07-07] MEDS: Cholecalciferol (Vitamin D3) 25 MCG TABLET 50 MCG PO (08:04)
[2024-07-07] MEDS: 0.9 % Sodium Chloride Flush 3 ML SYRINGE IVFLUSH (08:04)
[2024-07-07] MEDS: lisinopriL 10 MG TABLET PO (08:04)
[2024-07-07] MEDS: Ferrous Sulfate 324 MG TABLET.DR PO (08:04)
[2024-07-07 08:06] LABS: Glucose, Whole Blood 159 mg/dL (60-115)
[2024-07-07 11:35] LABS: Glucose, Whole Blood 257 mg/dL (60-115)
--- NOTE | 2024-07-07 12:28 | PM.DS ---
DS: Providers Provider Date of Service: 07/07/24 Date of admission: 06/26/24 19:16 Date of discharge: 07/07/24 Primary care physician: Isai Reaves MD Consults: 06/26/24 19:52 Consult to General Surgery Routine Consulting Provider: [facility]geons Reason for consultation: Diabetic foot infection 06/27/24 17:40 Consult to Wound Care Routine Reason for consultation: necrotic tissue, suggestive tissue of abscess Has provider been notified: Yes 06/29/24 17:19 Consult to Pulmonology Routine Consulting Provider: [facility] Pulmonology Services Reason for consultation: larhe pleural effusion, hypoxia 06/30/24 07:36 Consult to Hematology / Oncology Routine Consulting Provider: [facility] Oncology/Hematology Reason for consultation: anemia Consult to Infectious Diseases Routine Consulting Provider: [facility] Reason for consultation: gb strep bacteremia 07/01/24 01:51 Consult to Wound Care Routine Reason for consultation: Diabetic ulcer to Left foot DS: Diagnosis Discharge Diagnosis (1) Diabetic foot ulcer: Status: Acute DS: Summary Hospital Course Hospital Course: History and physical as per admitting provider. This is a 53-year-old Maltese-speaking male with pertinent history of insulin-dependent diabetes mellitus with neuropathy, hypertension, hyperlipidemia, hypothyroidism, mood disorder, gastroesophageal reflux disease, CKD who presents to the emergency department for evaluation of left foot infection. Patient states he noticed that his left foot was more red, swollen that has been ongoing for the last 10 days. It has been progressive and associated with foul-smelling pus. Patient has neuropathy and has minimal sensation in the feet. Also has associated fevers and chills. No chest pain, palpitations, shortness of breath, abdominal pain, changes in urinary or bowel habits. History obtained with the help of dental service chief. In the emergency department, patient was found to be septic and initiated on IV vancomycin and Zosyn. Given IV crystalloids in the ER. Lactic acid found to be 2.4 with leukocytosis. Creatinine elevated at 2.18. 53-year-old man treated for severe sepsis secondary to infected diabetic foot ulcer and gangrenous 4th and 5th toe with purulent cellulitis. MRI showed left foot with early osteomyelitis. Initially treated with IV vancomycin and Zosyn and switch to Rocephin and Flagyl as per ID. Teran catheter placed today for 6 weeks of total Rocephin. He was status post amputation of 4th and 5th toe with debridement of right TMA stump on 07/03/2024. Blood culture showed strep agalactiae bacteremia secondary to foot infection, treated with IV Rocephin, repeat blood cultures negative to date and echocardiogram negative for vegetation. Patient was noted to have anemia requiring 1 unit of packed red blood cells with good stabilization in H&H. Started on iron supplementation. He also had an episode of acute respiratory failure with hypoxia, was noted to have bilateral pleural effusions but symptoms secondary to fluid overload. Echocardiogram with EF of 70% with normal diastolic function, discussed with pulmonology who recommended treating for overload with IV Lasix. Thoracentesis was not performed, patient's symptoms resolved with IV Lasix and weaned off of oxygen and now remains on room air.. He had short episode of JJ and CKD stage IIIB which resolved after diuresis. Plan is to discharge patient back to long-term care facility, silver alginate to bilateral lower extremity wounds with dry clean dressing daily. Transaminitis. Secondary to sepsis, trended down. Hypertension. Initially held due to sepsis but resume lisinopril and Norvasc Mental health. Continue home mood stabilizers Hyperlipidemia. Continue home medications Hypothyroidism. Continue levothyroxine Time Attestation Discharge Coordination Time (in mins): 42 Quality: Safe Use of Opioids Does Pt have an Active Cancer Diagnosis on the Problem List?: No Quality: Stroke Does the patient have a stroke diagnosis?: No Physical Exam Vital Signs: Vital Signs: Last Vital Signs Temp 97.5 F 07/07/24 11:53 Pulse 73 07/07/24 12:26 Resp 11 L 07/07/24 12:26 BP 156/89 H 07/07/24 12:26 Pulse Ox 99 07/07/24 12:26 O2 Del Method Room Air 07/07/24 12:26 O2 Flow Rate 0 07/07/24 12:26 BMI result Body Mass Index 33.4 Appearing in no acute distress head is normocephalic atraumatic eyes pupils are PERRLA sclera is anicteric mouth throat mucous membranes are intact and moist neck is supple no lymphadenopathy, no JVD noted lung sounds are clear to auscultation heart regular rate rhythm, clear S1, S2 positive bowel sounds, abdomen is soft, nontender neuro patient is alert x3, no focal deficits Bilateral right foot diabetic foot wound, left foot 4th and 5th toe amputation DS: Data Data Completed and Pending Completed studies during hospitalization [Text1]: Procedures Compression of Right Foot using Pressure Dressing (09/03/22) Detachment at Right Foot, Partial 1st Ray, Open Approach (09/03/22) Detachment at Right Foot, Partial 2nd Ray, Open Approach (09/03/22) Detachment at Right Foot, Partial 3rd Ray, Open Approach (09/03/22) Detachment at Right Foot, Partial 4th Ray, Open Approach (09/03/22) Detachment at Right Foot, Partial 5th Ray, Open Approach (09/03/22) Drainage of Right Foot Skin, External Approach (09/03/22) Excision of Right Foot Skin, External Approach (09/03/22) Excision of Right Upper Leg Skin, External Approach (07/10/23) Insertion of Infusion Device into Superior Vena Cava, Percutaneous Approach (07/19/23) Replacement of Right Foot Skin with Autologous Tissue Substitute, Partial Thickness, External Approach (07/10/23) Resection of Gallbladder, Percutaneous Endoscopic Approach (10/13/22) Transfusion of Nonautologous Red Blood Cells into Peripheral Vein, Percutaneous Approach (10/13/22) Ultrasonography of Superior Vena Cava, Guidance (07/19/23) Pending studies at discharge: Pending at discharge 07/03/24 14:06 Surgical [PTH] Routine Labs on day of discharge: Laboratory Results - last 24 hr 07/06/24 07/06/24 07/07/24 16:04 20:09 07:21 POC Glucose 293 H 240 H 159 H 07/07/24 11:22 POC Glucose 257 H Preliminary micro results at discharge 07/02/24 16:36 Blood Culture - Preliminary Blood - Venous No growth after 48 hours. 07/02/24 16:36 Blood Culture - Preliminary Blood - Venous No growth after 48 hours. Discharge Plan Discharge Anticipated Discharge Date/Time: 07/07/24 12:22 Patient Disposition: [facility] Discharge Diagnosis: Severe sepsis Diabetic foot wound with gangrenous 5th toe Osteomyelitis Strep agalactiae bacteremia Normocytic anemia Acute respiratory failure with hypoxia JJ on CKD stage IIIB Transaminitis Referrals: Gabi Bowser [place] [Outside] - 1 Day (resume ocean transportation intermediary care) Bao Dempsey MD [Physician] - 2 Weeks (Removal of sutures) Isai Reaves MD [Primary Care Provider] - 1 Week Discharge Medications: New ceftriaxone 2 gram Recon Soln 2 g IVPUSH 2199 Qty: 25 0RF oxycodone 5 mg Tablet 5 mg PO Q6H PRN (Reason: Pain, Moderate(Pain Scale 4-6)) Qty: 12 0RF Rx Instructions: Partial Fill upon patient request. Continued (DME) FreeStyle Precision Gama Strips Strip See Rx Instructions .ROUTE .MEDSUPPLY Qty: 50 11RF Rx Instructions: As directed once daily (DME) FreeStyle Leonel 2 Sensor Kit See Rx Instructions .ROUTE .MEDSUPPLY Qty: 2 11RF Rx Instructions: As directed every 2 weeks (DME) right knee brace See Rx Instructions .Route .MEDSUPPLY Qty: 1 0RF Rx Instructions: As directed (DME) wrist splint bilateral See Rx Instructions .Route .MEDSUPPLY Qty: 2 0RF Rx Instructions: As directed (DME) high shower chair See Rx Instructions .Route .MEDSUPPLY Qty: 1 0RF Rx Instructions: As directed (DME) raised toilet seat See Rx Instructions .Route .MEDSUPPLY Qty: 1 0RF Rx Instructions: As directed metformin 500 mg tablet 750 mg PO DAILY ondansetron HCl 4 mg tablet 4 mg PO Q8H PRN (Reason: Nausea And Vomiting) simvastatin 40 mg tablet 40 mg PO BEDTIME amlodipine 10 mg tablet 10 mg PO DAILY lisinopril 10 mg tablet 10 mg PO DAILY escitalopram oxalate 10 mg tablet 10 mg PO DAILY ezetimibe 10 mg tablet 10 mg PO DAILY fenofibrate 54 mg tablet 54 mg PO DAILY insulin degludec [Tresiba FlexTouch U-200] 200 unit/mL (3 mL) insulin pen 20 unit subcut DAILY cholecalciferol (vitamin D3) 50 mcg (2,000 unit) capsule 50 mcg PO DAILY acetaminophen 325 mg Tablet 650 mg PO Q4H PRN (Reason: Fever Or Pain) magnesium hydroxide [Milk of Magnesia] 400 mg/5 mL Suspension 30 ml PO DAILY PRN (Reason: Constipation) Rx Instructions: if no bm in 9 shifts (3 days) bisacodyl 10 mg Suppository 10 mg IN DAILY PRN (Reason: Constipation) Rx Instructions: for no BM if MOM ineffective Fleet Enema 19-7 gram/118 mL Enema 118 ml IN DAILY PRN (Reason: Constipation) Rx Instructions: for no BM and if bisacodyl supp ineffective loperamide 2 mg Tablet 2 mg PO Q4H PRN (Reason: Loose Stool) Rx Instructions: administer after each loose stool until symptoms controlled; do not exceed 8 mg per 24 hrs ammonium lactate 12 % Cream 1 appl TOPICAL DAILY Rx Instructions: apply to left foot insulin lispro 100 unit/mL Solution See Protocol SUBCUT QIDACHS Protocol: Insulin Correction Scale Less than or equal to 110 ---- Give (units): 0 111 to 150 Give (units): 2 151 to 200 Give (units): 4 201 to 250 Give (units): 6 251 to 300 Give (units): 8 301 to 350 Give (units): 10 Greater than 350 Give (units): 12 Call MD if Blood Glucose > : 400 (DME) dressing, collagen-silver 2 X 2.2 bandage See Rx Instructions .Route Qty: 50 0RF Rx Instructions: Apply to right foot wound with 4x4 and Kerlex QOD levothyroxine 137 mcg Tablet 137 mcg PO DAILY@0600 Mounjaro 5 mg/0.5 mL Pen Injector 5 mg SUBCUT TH Discontinued metronidazole 500 mg Tablet 500 mg DAILY Rx Instructions: crush tablet and apply to foot wound Discharge Orders: Discharge Order (Routine); Ordered 07/07/24 Ordered By: Em Downing Diet: Advance to usual diet Activity on Discharge: As tolerated Stand Alone Forms: Patient Portal Discharge page Print Language: Maltese Activity Restrictions/Additional Instructions: Daily silver alginate to bilateral lower extremity wounds with dry clean dressing Care Plan Goals: Daily silver alginate to bilateral lower extremity wounds with dry clean dressing Complete total 6 weeks of IV Rocephin, end date 08/12/24 Health Concerns: Severe sepsis Diabetic foot wound with gangrenous 5th toe Osteomyelitis Strep agalactiae bacteremia Normocytic anemia Acute respiratory failure with hypoxia JJ on CKD stage IIIB Transaminitis Plan of Treatment: Follow-up with primary care provider as needed Take all medications as prescribed Assessment: See discharge summary
--- NOTE | 2024-07-07 12:44 | MHC.CM.PN ---
Patient medically cleared for dc back to LTC @ [facility]. BLS transport scheduled for 4pm. Extensive conversation w/ alternate HCP/cousin Viviana at bedside w/ sister/1st HCP present on phone call. Family initially requesting new LTC placement. Unfortunately, no bed offers at this time. Family agreeable to return to [facility] w/ plan to transfer patient once a bed is obtained. Provided w/ a list of local facilities, as 2nd HCP lives in [place] and would like patient to stay local. IMM delivered.
--- NOTE | 2024-07-07 12:47 | PM.PROC ---
Brief Operative Note Date of procedure: 07/07/24 Pre-op diagnosis: Needs technician terminal and repeater iv antibiotics, CKD Post-op diagnosis: same Procedure: Right IJ 24 cm dual lumen Teran placed using US and FL. Tip at cavoatrial junction. Ok for use. Anesthesia: local
[2024-07-07 13:12] LABS: Glucose, Whole Blood 288 mg/dL (60-115)
[2024-07-07 16:26] LABS: Glucose, Whole Blood 254 mg/dL (60-115)
== END 2024-07-07 18:17 | disposition skilled nursing facility (03) | DRG 853 ==
LOC: HO.ED 18:29 → HO.EDOVER 19:24 → HO.S3 06-27 14:47
PROVIDERS: Internal Medicine; Physician Assistant Medical; Physician Assistant Surgical; Surgery; Admitting Provider Student in an Organized Health Care Education/Training Program; Emergency Provider Emergency Medicine; PCP Family Medicine; Visit Provider Nurse Practitioner Acute Care
PROC: 0Y6W0Z0 Detachment at Left 4th Toe, Complete, Open Approach (ICD-10-PCS; principal; 2024-07-03 13:00)
PROC: 0Y6W0Z0 Detachment at Left 4th Toe, Complete, Open Approach (ICD-10-PCS; 2024-07-03 13:00)
DX: A41.9 Sepsis, unspecified organism (principal); J96.01 Acute respiratory failure with hypoxia; N17.9 Acute kidney failure, unspecified; E87.21 Acute metabolic acidosis; M86.272 Subacute osteomyelitis, left ankle and foot; L97.426 Non-pressure chronic ulcer of left heel and midfoot with bone involvement without evidence of necrosis; E11.52 Type 2 diabetes mellitus with diabetic peripheral angiopathy with gangrene; J90 Pleural effusion, not elsewhere classified; L03.116 Cellulitis of left lower limb; E03.9 Hypothyroidism, unspecified; E11.40 Type 2 diabetes mellitus with diabetic neuropathy, unspecified; E11.65 Type 2 diabetes mellitus with hyperglycemia; E11.69 Type 2 diabetes mellitus with other specified complication; E11.621 Type 2 diabetes mellitus with foot ulcer; E78.2 Mixed hyperlipidemia; I12.9 Hypertensive chronic kidney disease with stage 1 through stage 4 chronic kidney disease, or unspecified chronic kidney disease; R65.20 Severe sepsis without septic shock; N18.32 Chronic kidney disease, stage 3b; D50.9 Iron deficiency anemia, unspecified; E87.70 Fluid overload, unspecified; E11.22 Type 2 diabetes mellitus with diabetic chronic kidney disease; E11.628 Type 2 diabetes mellitus with other skin complications; B95.1 Streptococcus, group B, as the cause of diseases classified elsewhere; T87.81 Dehiscence of amputation stump; Z20.822 Contact with and (suspected) exposure to COVID-19; Z79.4 Long term (current) use of insulin; D63.1 Anemia in chronic kidney disease; Z79.84 Long term (current) use of oral hypoglycemic drugs; Z79.85 Long-term (current) use of injectable non-insulin antidiabetic drugs; Z79.890 Hormone replacement therapy; Z79.899 Other long term (current) drug therapy
CPT/HCPCS: 0241U; 36415; 36558; 71045; 71250; 73630; 73718; 80048; 80053; 80076; 80202; 82565; 82607; 82728; 82746; 82947; 83540; 83605; 83615; 83880; 84155; 84484; 85025; 85027; 85610; 86850; 86900; 86901; 86923; 87040; 87147; 87205; 88305; 88311; 93306; 99285; C1751; C1769; J0665; J0696; J1650; J1940; J2003; J2270; J2543; J2704; J2795; J3010; J3370; J3371; P9016; Q9957

== ENCOUNTER → 2024-06-26 16:57 | Outpatient (BNV) | payer MEDICARE, MEDICAID, SELFPAY | PROVIDERS: Emergency Provider Emergency Medicine; PCP Family Medicine; Visit Provider Specialist | DX: M79.675 Pain in left toe(s) (principal) | CPT/HCPCS: 73630 ==

== ENCOUNTER 2024-06-26 19:16 | Outpatient (BNV) | payer MEDICARE, MEDICAID, SELFPAY | END 2024-06-29 08:06 | PROVIDERS: Admitting Provider Student in an Organized Health Care Education/Training Program; Emergency Provider Emergency Medicine; PCP Family Medicine; Visit Provider Radiology Diagnostic Radiology | DX: R09.02 Hypoxemia (principal) | CPT/HCPCS: 71250 ==

== ENCOUNTER 2024-06-26 19:16 | Outpatient (BNV) | payer MEDICARE, MEDICAID, SELFPAY | END 2024-06-29 13:00 | PROVIDERS: Admitting Provider Student in an Organized Health Care Education/Training Program; Emergency Provider Emergency Medicine; PCP Family Medicine; Visit Provider Internal Medicine | DX: I35.8 Other nonrheumatic aortic valve disorders (principal); I51.9 Heart disease, unspecified | CPT/HCPCS: 93306 ==

== ENCOUNTER 2024-06-26 19:16 | Outpatient (BNV) | payer MEDICARE, MEDICAID, SELFPAY | END 2024-06-28 09:50 | PROVIDERS: Admitting Provider Student in an Organized Health Care Education/Training Program; Emergency Provider Emergency Medicine; PCP Family Medicine; Visit Provider Radiology Diagnostic Radiology | DX: R09.02 Hypoxemia (principal) | CPT/HCPCS: 71045 ==

== ENCOUNTER 2024-06-26 19:16 | Outpatient (BNV) | payer MEDICARE, MEDICAID, SELFPAY | END 2024-07-07 12:00 | PROVIDERS: Admitting Provider Student in an Organized Health Care Education/Training Program; Emergency Provider Emergency Medicine; PCP Family Medicine; Visit Provider Physician Assistant Surgical | DX: N18.9 Chronic kidney disease, unspecified (principal) | CPT/HCPCS: 36558; 76937; 77001 ==

== ENCOUNTER 2024-06-26 19:16 | Outpatient (BNV) | payer MEDICARE, MEDICAID, SELFPAY | END 2024-06-27 11:48 | PROVIDERS: Admitting Provider Student in an Organized Health Care Education/Training Program; Emergency Provider Emergency Medicine; PCP Family Medicine; Visit Provider Radiology Diagnostic Radiology | DX: M86.9 Osteomyelitis, unspecified (principal); L03.116 Cellulitis of left lower limb | CPT/HCPCS: 73718 ==

== ENCOUNTER → 2024-06-26 19:16 | Outpatient (BNV) | payer MEDICARE, MEDICAID, SELFPAY | PROVIDERS: Admitting Provider Student in an Organized Health Care Education/Training Program; Emergency Provider Emergency Medicine; PCP Family Medicine; Visit Provider Internal Medicine Pulmonary Disease | DX: J90 Pleural effusion, not elsewhere classified (principal); J96.01 Acute respiratory failure with hypoxia | CPT/HCPCS: 99222 ==

== ENCOUNTER → 2024-06-26 19:16 | Outpatient (BNV) | payer MEDICARE, MEDICAID, SELFPAY | PROVIDERS: Admitting Provider Student in an Organized Health Care Education/Training Program; Emergency Provider Emergency Medicine; PCP Family Medicine; Visit Provider Surgery | DX: E11.621 Type 2 diabetes mellitus with foot ulcer (principal); L97.426 Non-pressure chronic ulcer of left heel and midfoot with bone involvement without evidence of necrosis | CPT/HCPCS: 28810; 97597; 99024; 99222; 99232 ==

== ENCOUNTER → 2024-06-26 19:16 | Outpatient (BNV) | payer MEDICARE, MEDICAID, SELFPAY | PROVIDERS: Admitting Provider Student in an Organized Health Care Education/Training Program; Emergency Provider Emergency Medicine; PCP Family Medicine; Visit Provider Internal Medicine | DX: D64.9 Anemia, unspecified (principal) | CPT/HCPCS: 99222 ==

== ENCOUNTER → 2024-06-26 19:16 | Outpatient (BNV) | payer MEDICARE, MEDICAID, SELFPAY | PROVIDERS: Admitting Provider Student in an Organized Health Care Education/Training Program; Emergency Provider Emergency Medicine; PCP Family Medicine; Visit Provider Internal Medicine | DX: E11.621 Type 2 diabetes mellitus with foot ulcer (principal); L97.509 Non-pressure chronic ulcer of other part of unspecified foot with unspecified severity; J96.01 Acute respiratory failure with hypoxia; A41.9 Sepsis, unspecified organism; R65.20 Severe sepsis without septic shock | CPT/HCPCS: 99222 ==

== ENCOUNTER → 2024-06-26 19:16 | Outpatient (BNV) | payer MEDICARE, MEDICAID, SELFPAY | PROVIDERS: Admitting Provider Student in an Organized Health Care Education/Training Program; Emergency Provider Emergency Medicine; PCP Family Medicine; Visit Provider Student in an Organized Health Care Education/Training Program | DX: E11.621 Type 2 diabetes mellitus with foot ulcer (principal); L97.426 Non-pressure chronic ulcer of left heel and midfoot with bone involvement without evidence of necrosis | CPT/HCPCS: 99223; 99232 ==

== ENCOUNTER 2024-07-08 12:06 | Emergency (ER) | payer MEDICARE, MEDICAID, SELFPAY ==
[2024-07-08 12:10] VITALS: BP 123/73; PULSE 78; O2SAT 98
[2024-07-08 12:22] VITALS: BP 112/65; PULSE 70; RESP 16; TEMP 36.3; O2SAT 99; BMI 39.5
[2024-07-08] MEDS: Bacitracin Oint 14 GM TUBE 1 APPL TOPICAL (13:40)
--- NOTE | 2024-07-08 13:40 | PC.NURSE ---
Dr. Green redressed patient's foot, bacetracin applied, consulted w/ surgeon no need for further eval, will be discharged back to [facility].
--- NOTE | 2024-07-08 13:40 | ED.WOUNDLAC ---
HPI - Wound/Laceration General Chief Complaint: Wound/Laceration Stated Complaint: RECENT FOOT AMPUTATION,BLEEDING PER EMS Time Seen by Provider: 07/08/24 12:45 Source: patient Mode of arrival: ambulatory Limitations: no limitations History of Present Illness HPI narrative: 53 year old With chronic kidney disease recently admitted for JJ and required amputation of the [id number] and 5th toes the debridement of the right foot patient was here for prolonged period of time is back at the skilled nursing. Was sent in here requesting that a central line be removed patient has a PICC line there was no central line and that the wounds the foot is still bleeding. I did take a picture of the wound and sent it to our surgeon who saw the patient while they were here they agreed that the wound looks well there was nothing else to do other than replace the dressing and the patient can follow up outpatient I would not remove the PICC line as it was there For a reason and I am not the 1 that placed it I am not the want to remove it we will need to follow up outpatient to find out who placed and when they are going to remove the PICC line patient is likely a difficult stick Related Data Home Medications ?Medication ?Instructions ?Recorded ?Confirmed metformin 500 mg tablet 750 mg PO DAILY 06/20/22 06/26/24 amlodipine 10 mg tablet 10 mg PO DAILY 10/12/22 06/26/24 cholecalciferol (vitamin D3) 50 50 mcg PO DAILY 10/12/22 06/26/24 mcg (2,000 unit) capsule escitalopram oxalate 10 mg tablet 10 mg PO DAILY 10/12/22 06/26/24 ezetimibe 10 mg tablet 10 mg PO DAILY 10/12/22 06/26/24 fenofibrate 54 mg tablet 54 mg PO DAILY 10/12/22 06/26/24 insulin degludec 200 unit/mL (3 20 unit subcut DAILY 10/12/22 06/26/24 mL) subcutaneous pen (Tresiba FlexTouch U-200 insulin) lisinopril 10 mg tablet 10 mg PO DAILY 10/12/22 06/26/24 ondansetron HCl 4 mg tablet 4 mg PO Q8H PRN Nausea And Vomiting 10/12/22 06/26/24 simvastatin 40 mg tablet 40 mg PO BEDTIME 10/12/22 06/26/24 acetaminophen 325 mg tablet 650 mg PO Q4H PRN Fever Or Pain 10/13/22 06/26/24 bisacodyl 10 mg rectal suppository 10 mg WI DAILY PRN Constipation 10/13/22 06/26/24 magnesium hydroxide 400 mg/5 mL 30 ml PO DAILY PRN Constipation 10/13/22 06/26/24 oral suspension (Milk of Magnesia) sodium phosphates 19 gram-7 118 ml WI DAILY PRN Constipation 10/13/22 06/26/24 gram/118 mL enema (Fleet Enema) ammonium lactate 12 % topical cream 1 appl topical DAILY 07/10/23 06/26/24 insulin lispro 100 unit/mL See Protocol subcut QIDACHS 07/10/23 06/26/24 subcutaneous solution loperamide 2 mg tablet 2 mg PO Q4H PRN Loose Stool 07/18/23 06/26/24 levothyroxine 137 mcg tablet 137 mcg PO DAILY@0600 06/26/24 06/26/24 tirzepatide 5 mg/0.5 mL 5 mg subcut TH 06/26/24 07/03/24 subcutaneous pen injector (Horace) Previous Rx's ?Medication ?Instructions ?Recorded blood sugar diagnostic (FreeStyle #50 ea 05/30/21 Precision Gama Strips) flash glucose sensor (FreeStyle #2 ea 06/01/21 Leonel 2 Sensor kit) right knee brace #1 ea 10/09/21 wrist splint bilateral #2 ea 10/09/21 high shower chair #1 ea 10/31/21 raised toilet seat #1 ea 11/01/21 dressing, collagen-silver 2 X 2.2 #50 ea 07/15/23 ceftriaxone 2 gram solution for 2 g IVPUSH 2200 #25 ea 07/07/24 injection oxycodone 5 mg tablet 5 mg PO Q6H PRN Pain, 07/07/24 Moderate(Pain Scale 4-6) #12 tabs Allergies Allergy/AdvReac Type Severity Reaction Status Date / Time atorvastatin [ATORVASTATIN] Allergy Unknown skin Verified 07/08/24 12:24 eruption Review of Systems Review of Systems: Review of systems: General: Patient denies any fever chills recent illness or falls Musculoskeletal: Denies back pain or body aches or other injuries HEENT: denies headache, runny nose, ear pain Respiratory: denies shortness of breath, cough Cardiovascular: no chest pain or palpitations : denies dysuria, frequency Abdomen: no nausea vomiting denies abdominal pain Extremities: no swelling, no pain Skin: no diaphoresis Yes all other systems are reviewed and are negative [facility] Past Medical History Medical History Acute osteomyelitis of right foot Nausea and vomiting Bacteremia Bilateral hand pain Right knee pain Hypovitaminosis D Right foot pain Left foot pain Infection of penis Hyponatremia Hyperkalemia Diabetic ketoacidosis Acute kidney injury Autoimmune thyroiditis Obesity due to excess calories Type 2 diabetes mellitus with hyperglycemia, with long-term current use of insulin CHF (congestive heart failure) Cognitive developmental delay Proteinuria Type 2 diabetes mellitus with other diabetic kidney complication Essential hypertension Hyperlipidemia LDL goal <100 Edema Hyperlipidemia Cataracts, both eyes HTN (hypertension) Hypothyroid Diabetes Surgical History S/P split thickness skin graft (07/10/21) Hx laparoscopic cholecystectomy (10/16/22) 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 Hx of removal of cyst Hx of cataract surgery Family History Family History Father HTN (hypertension) Mother Diabetes mellitus Maternal Grandmother Diabetes mellitus Social History Social History Household Members: Friend(s) Household Members Other:: alf Housing: Apartment Housing Other:: SNF Are you a primary pet caretaker to a significant other at home: No Do you presently have visiting nurse or other home services: No Unable to assess alcohol history related to: Unknown Alcohol intake: never Patient Tobacco Use Status: Never used Tobacco e-Cigarette/Vaping Use: Never Used Second Hand Smoke Exposure: No Substance Use Type: Caffiene Advance Directives Date on File: 07/25/23 service: No Current occupational status: disabled Cognitive needs: Yes Hearing needs: No Vision needs: No Physical Exam Vital Signs: Vital Signs: Last Vital Signs Temp 97.3 F 07/08/24 12:22 Pulse 70 07/08/24 12:22 Resp 16 07/08/24 12:22 BP 112/65 07/08/24 12:22 Pulse Ox 99 07/08/24 12:22 O2 Del Method Room Air 07/08/24 12:22 BMI result Body Mass Index 39.5 General: Well-appearing well-nourished in no signs of distress HEENT: Normocephalic atraumatic Neck: No signs of JVD, no masses no tenderness or lymphadenopathy Cardiovascular: Regular rate and rhythm Respiratory: Clear to auscultation bilaterally Abdomen: Soft nontender no masses Extremities: Normal pedal pulses no signs of edema Skin: well-healing wound to right foot and left footDry warm no rashes Back: No tenderness full ROM Course Reevaluation(s) Reevaluation #1: I reviewed the wound with Dr. Maddox who agrees that it is well-appearing and there was no further evaluation needs Medications Administered Discontinued Medications Generic Name Dose Route Start Last Admin Trade Name Freq PRN Reason Stop Dose Admin Bacitracin 1 appl 07/08/24 13:33 07/08/24 13:40 Bacitracin Oint 14 Gm Tube TOPICAL 07/08/24 13:34 1 appl ONCE ONE Administration Protocol Medical Decision Making Medical Decision Making MDM Narrative: I I did readdress the wound Differential Diagnosis Differential Diagnoses: The differential diagnosis associated with the presentation includes well-healing wound Discharge Plan Discharge Clinical Impression: Wound, open, foot Patient Disposition: Home, Self-Care Instructions: Acute Wounds (DC) Additional Instructions: the wound at this time looks well and is well healing I reviewed this with surgery who agreed there was nothing to do acutely. The line that you want removed his PICC line this patient is very difficult to get IV access I would not remove the PICC line at this time. I do recommend following up with whoever had the PICC line placed if you have any other concerns please return to the ER. Prescriptions: No Action (DME) FreeStyle Precision Gama Strips Strip See Rx Instructions .ROUTE .MEDSUPPLY Qty: 50 11RF Rx Instructions: As directed once daily (DME) FreeStyle Leonel 2 Sensor Kit See Rx Instructions .ROUTE .MEDSUPPLY Qty: 2 11RF Rx Instructions: As directed every 2 weeks (DME) right knee brace See Rx Instructions .Route .MEDSUPPLY Qty: 1 0RF Rx Instructions: As directed (DME) wrist splint bilateral See Rx Instructions .Route .MEDSUPPLY Qty: 2 0RF Rx Instructions: As directed (DME) high shower chair See Rx Instructions .Route .MEDSUPPLY Qty: 1 0RF Rx Instructions: As directed (DME) raised toilet seat See Rx Instructions .Route .MEDSUPPLY Qty: 1 0RF Rx Instructions: As directed metformin 500 mg tablet 750 mg PO DAILY ondansetron HCl 4 mg tablet 4 mg PO Q8H PRN (Reason: Nausea And Vomiting) simvastatin 40 mg tablet 40 mg PO BEDTIME amlodipine 10 mg tablet 10 mg PO DAILY lisinopril 10 mg tablet 10 mg PO DAILY escitalopram oxalate 10 mg tablet 10 mg PO DAILY ezetimibe 10 mg tablet 10 mg PO DAILY fenofibrate 54 mg tablet 54 mg PO DAILY insulin degludec [Tresiba FlexTouch U-200] 200 unit/mL (3 mL) insulin pen 20 unit subcut DAILY cholecalciferol (vitamin D3) 50 mcg (2,000 unit) capsule 50 mcg PO DAILY acetaminophen 325 mg Tablet 650 mg PO Q4H PRN (Reason: Fever Or Pain) magnesium hydroxide [Milk of Magnesia] 400 mg/5 mL Suspension 30 ml PO DAILY PRN (Reason: Constipation) Rx Instructions: if no bm in 9 shifts (3 days) bisacodyl 10 mg Suppository 10 mg WI DAILY PRN (Reason: Constipation) Rx Instructions: for no BM if MOM ineffective Fleet Enema 19-7 gram/118 mL Enema 118 ml WI DAILY PRN (Reason: Constipation) Rx Instructions: for no BM and if bisacodyl supp ineffective loperamide 2 mg Tablet 2 mg PO Q4H PRN (Reason: Loose Stool) Rx Instructions: administer after each loose stool until symptoms controlled; do not exceed 8 mg per 24 hrs ammonium lactate 12 % Cream 1 appl TOPICAL DAILY Rx Instructions: apply to left foot insulin lispro 100 unit/mL Solution See Protocol SUBCUT QIDACHS Protocol: Insulin Correction Scale Less than or equal to 110 ---- Give (units): 0 111 to 150 Give (units): 2 151 to 200 Give (units): 4 201 to 250 Give (units): 6 251 to 300 Give (units): 8 301 to 350 Give (units): 10 Greater than 350 Give (units): 12 Call MD if Blood Glucose > : 400 (DME) dressing, collagen-silver 2 X 2.2 bandage See Rx Instructions .Route Qty: 50 0RF Rx Instructions: Apply to right foot wound with 4x4 and Kerlex QOD levothyroxine 137 mcg Tablet 137 mcg PO DAILY@0600 Mounjaro 5 mg/0.5 mL Pen Injector 5 mg SUBCUT TH ceftriaxone 2 gram Recon Soln 2 g IVPUSH 2200 Qty: 25 0RF oxycodone 5 mg Tablet 5 mg PO Q6H PRN (Reason: Pain, Moderate(Pain Scale 4-6)) Qty: 12 0RF Rx Instructions: Partial Fill upon patient request. Print Language: Serbian
--- NOTE | 2024-07-08 13:56 | PC.NURSE ---
Called [facility], spoke to [facility] staff member there, relayed ED DrDuke and surgeon looked at wound, nothing to do for wound at this time, patient okay to follow up w/ surgeon at scheduled appointment.
--- OUTSIDE RECORDS SUMMARY | 2024-07-08 14:56 | XMS_ITS | Continuity of Care Document ---
Author Organization [facility], [facility] Address [address] [place] [address] Care Team Providers Care Complementary Health Therapists Name Role Phone NICK CUETO Primary Care Provider [phone] [facility] - 3RD FLOOR OTHER Assessment No assessment recorded. Plan of Treatment Reminders Order Date Submit Date Provider Last Modified By Organization Details Last Modified Time Details Appointments Readmissi on 2024 09:46A M Gail Goncalves NP Not available Not available Not available Lab None recorded. Referral None recorded. Procedures None recorded. Surgeries None recorded. Imaging None recorded. Medication Orders None recorded. Patient TargetsNo targets recorded. Patient InstructionsNo instructions recorded. Reason for Referral None Reported. Problems Name Problem SNOMED Code Status Onset Date Resolution Date Notes Provider Name and Address Organization Details Recorded Time Diabetic foot ulcer 654073767 Active 2022 FENG KRAFT PA-C [address] , [address], [place], [address], [facility] 3 12:26:29 Type 2 diabetes mellitus with periphera l angiopath y 775599560 Active 2022 FENG KRAFT PA-C [address] , [address], [place], [address], [facility] [email or web address] [facility] 3 12:26:45 Renal disorder due to type 2 diabetes mellitus 605592427 Active 2022 FENG KRAFT PA-C [address], [address], [place], [address], [facility] 3 12:26:59 Periphera l neuropath y due to type 2 diabetes mellitus 498833130466 7 Active 2022 FENG KRAFT PA-C [address] , [address], [place], [address], [facility] [employer] 3 12:27:14 Essential hypertens ion 02770681 Active 2022 FENG KRAFT PA-C [address], [address], [place], [address], [facility] [employer] [facility] 3 12:27:19 Dyslipide adrian 576995267 Active 2022 FENG KRAFT PA-C [address], [address], [place], [address], [facility] [employer] [facility] 3 12:27:26 Autoimmun e thyroidit is 26575882 Active 2022 FENG KRAFT PA-C [address], [address], [place], [address], [facility] [employer] [facility] 3 12:27:35 Anemia 354355754 Active 2022 FENG KRAFT PA-C [address], [address], [place], [address], [facility] 3 12:27:41 Chronic hyponatre adrian 03325741 Active 2022 FENG KRAFT PA-C [address], [address], [place], [address], [facility] 3 12:27:47 Depressiv e disorder 49581479 Active 2022 FENG KRAFT PA-C [address], [address], [place], [address], [facility] [employer] [facility] 3 12:27:52 Vitamin D deficienc y 56723347 Active 2022 FENG KRAFT PA-C [address], [address], [place], [address], [facility] 3 12:28:00 Pain of right knee joint 356764356638 100 Active 2022 FENG KRAFT PA-C [address], [address], [place], [address], [facility] 3 12:28:14 Congestiv e heart failure 00643123 Active 2022 details alysa KRAFT PA-C [address], [address], [place], [address], [facility] [employer] [facility] 3 12:28:32 Uncontrol led type 2 diabetes mellitus 108271374 Active 2022 Puja Luke MD [address], [address], [place], [address], [facility] 3 18:14:15 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 868084035658 19519 Active 2022 Puja Luke MD [address] , [address], [place], [address], [facility] 3 19:57:21 Chronic osteomyel itis of right foot 893561316419 9104 Active 2022 Puja Luke MD [address] [facility], [address], [place], [address], [facility] 3 19:59:07 Acute cholecyst itis 35635885 Active 2023 s/p david C 06/2023 ARTURO PAZ NP [address], [address], [place], [address], [facility] 4 14:22:11 Impaired cognition 793129496 Active 2023 SLUMS completed 07/25/23, score 17 ARTURO PAZ NP [address], [address], [place], [address], [facility] 4 11:03:32 Acute osteomyel itis of right foot 884485875991 9104 Active 2023 ARTURO PAZ NP [address] [facility], [address], [place], [address], [facility] 4 11:04:08 Diabetic foot ulcer 420578853 Active 2024 Gail Goncalves NP [address], [address], [place], [address], [facility] 5 10:42:27 Problem Notes None recorded. Medical Equipment None Reported. Allergies Allergen ID Allergen Name Allergen Category Reaction Reaction Severity Criticality Documentation Date Start Date Code Code System Note Provider Name and Address Organization Details Recorded Time [id number] 35c0f Lipitor medicatio n rash Not available Not available 07/02/2022 15492 5 RxNorm can take Zocor Not Available Not Available Not Available Vitals Date Recorded Body height Body mass index (BMI) Body weight Heart rate Respiratory rate Body temperature Oxygen saturation Oxygen saturation in Arterial blood by Pulse oximetry Systolic blood pressure Diastolic blood pressure Provider Name and Address Organization Details Last Updated DateTime 5 165.1 cm 44.1 kg/m2 448851. 98 g 78 /min 18 /min 98 [degF] 97 % 97 % 119 mm[Hg] 63 mm[Hg] Gail Goncalves NP [address] [facility], [address], [place], [address], [facility] 5 09:48:18 Social History Question Answer Notes LastModified by Organization Details LastModified Time Tobacco Smoking Status Never Smoker FENG KRAFT PA-C [address] [facility], [address], [place], [address], [facility] 07/02/2022 11:36:18 Do You Have An Advance Directive? Yes Full Code; All Interventions [email or web address] Information not available 07/06/2022 What Is Your Level Of Alcohol Consumption? None Information not available 07/02/2022 What Is Your Code Status? Full Code Information not available 07/03/2022 Where Do You Live? Nursinghome Now LTC At [facility], Previously Lived At [facility], Awaiting Custodial Placement Information not available 01/23/2024 Legal Guardian? No Informati on not available 07/03/2022 Do You Have A Medical Power Of Police Department Secretary? Yes Has HCP - Invoke Has Newer HCP Per [employer]ing [employer] Lab[employer], Family Recently Reunited Information not available 07/08/2024 What Was The Date Of Your Most Recent Tobacco Screening? 07/08/2024 Information not available 07/08/2024 Do You Have An Out Of Hospital DNR? No Information not available 07/03/2022 What Is Your Relationship Status? Single Information not available 07/03/2022 Do You Use Any Illicit Or Recreational Drugs? No [email or web address] Information not available 07/02/2022 Has Tobacco Cessation Counseling Been Provided? No N/A As Pt Is A Non-smoker Information not available 07/03/2022 Do You Or Have You Ever Used Any Other Forms Of Tobacco Or Nicotine? No [email or web address] Information not available 07/02/2022 Sex: Unknown Functional Status None recorded. Mental Status None recorded. Family History Relationship Description Onset Age of this Age Resolved Age Notes LastModified by Organization Details LastModified Time Father Essential hypertension dece ed [email or web address] Not available 07/02/2022 11:34:54 Mother Type 2 diabetes mellitus dece ed [email or web address] Not available 07/02/2022 11:35:10 Medical History No medical history recorded. Immunizations Vaccine Type Date Status Note Provider Nam e and Address Organization Details Recorded Time COVID-19, mRNA, LNP-S, PF, 30 mcg/0.3 mL dose 1 completed ARNEL MOSER-C [address], [address], [place], [address], [facility] 07/02/2022 11:29:08 COVID-19, mRNA, LNP-S, PF, 30 mcg/0.3 mL dose 1 completed ARNEL MOSER-C [address], [address], [place], [address], [facility] 07/02/2022 11:29:11 Tdap 6 completed ARNEL MOSER-C [address], [address], [place], [address], [facility] [email or web address] [facility] 07/02/2022 11:29:24 pneumococcal polysaccharide PPV23 7 completed ARNEL MOSER-C [address], [address], [place], [address], [facility] 07/02/2022 11:29:42 Influenza, split virus, quadrivalent, PF 3 completed ARNEL MOSER-C [address], [address], [place], [address], [facility] 08/10/2022 13:17:40 pneumococcal polysaccharide PPV23 3 completed FENG KRAFT PA-C [address] [facility], [address], [place], [address], [facility] 08/10/2022 13:18:04 COVID-19, mRNA, LNP-S, bivalent, PF, 30 mcg/0.3 mL dose 3 completed FENG KRAFT PA-C [address] [facility] [address], [address], [place], [address], [facility] 08/10/2022 13:18:32 Influenza, adjuvanted, quadrivalent, PF 3 completed Nyla bullard, [facility] 08/09/2023 17:56:04 COVID-19, mRNA, LNP-S, bivalent, PF, 30 mcg/0.3 mL dose 3 completed Nyla bullard, [facility] 08/12/2023 11:51:52 Past Encounters Encounter ID Performer Location Encounter Start Date Encounter Closed Date Diagnosis/Indication Diagnosis SNOMED-CT Code Diagnosis ICD10 Code Diagnosis Note [id number] Gail Goncalves NP [facility] [address] [address] 06/26/2024 15:38:47 06/29/2024 13:27:33 Open wound of left foot [id number] S91.302A send pt to er and call 911 for left foot cellulitis and likely sepsis [id number] Gail Goncalves NP [facility] [address] [address] 07/08/2024 09:46:45 07/08/2024 11:17:52 Open wound of left foot [id number] 4645537 S91.302A send pt to er and call 911 for left foot dehiscence and overt bleeding going through dressing and towelalso please have hosp assess if central line is needed or if a picc line for abx is more appropriat e in this setting Health Concerns Section Related Observation LastModified by Organization Detai ls LastModified Time None Recorded Concern Status LastModified by Organization Details LastModified Time None Recorded Payers Encounter Date Sequence Insurance Name Policy Number Policy Meza Covered Member ID Meza Member ID Guarantor Name 07/08/2024 1 [place] [employer] A Devin Montanez [id number] Mehul Beltran 07/08/2024 2 [place] [facility] Mehul Beltran [id number] Mehul Beltran Notes Date Note Type Note Provider Name and Address Organization Details Recorded Time 07/08/2024 text/html Mehul is seen today for a readmission visit. PMH including AODM-poorly controlled with neuropathy, PVD, HTN, acanthosis nigricans, HLD, autoimmune thyroiditis, anemia, hyponatremia, depression, Vit D deficiency, chronic R knee pain (wears brace), chronic bilateral hand pain (uses splints), hx of JJ, developmental delay, s/p R cataract extraction, peripheral edema, and obesity. He is a 53 yo LTC resident with pmh above seen at [facility] 07/02-07/07/23 for osteomyelitis with of the left 4th and 5th toe by MRI and gangenous changes to the skin of the 5th toe requiring amputation and right foot debridement and now back at [facility] for continued care and rehab. Workup consisted of labs, MRI, surgery, and abx consistant with sepsis and JJ on CKD. It was felt wound may not heal on its own and may require further surgeries. All meds continued except flagyl for wound odor dc'd. 2 grams Ceftriaxone started daily for 25 more days and oxycodone 5 mg po q 6 hour prn for pain. Nursing concerned about his left foot wound and drainage. amendedOn exam, Mehul is up in wheelchair in NAD. He is smiling and denies any pain or concerns. His dressing is saturated in blood though a towel and wound has dehiscence with sutures coming apart and good amount of bloody drainage. Will send to ER for wound dehiscence and bleeding. Also note pt has a central line and will have hospital assess if he is a candidate for a picc line. Gail Goncalves NP [address], [address], [place], [address], [facility] 07/08/2024 11:17:41
--- OUTSIDE RECORDS SUMMARY | 2024-07-08 14:57 | XMS_ITS | Continuity of Care Document ---
Author Organization [facility], [facility] Address [address] [place] [address] Care Team Providers Care Motocross Racer Name Role Phone NICK CUETO Primary Care Provider [facility] - 3RD FLOOR OTHER Assessment No assessment [...] Organization Details Recorded Time Diabetic foot ulcer 265057333 Active 2022 FENG KRAFT PA-C [address] , [address], [place], [address], [facility] 3 12:26:29 Type 2 diabetes mellitus with periphera l angiopath y 662054766 Active 2022 FENG KRAFT PA-C [address] , [address], [place], [address], [facility] [employer] [facility] 3 12:26:45 Renal disorder due to type 2 diabetes mellitus 372930987 Active 2022 FENG KRAFT PA-C [address] [employer], [address], [place], [address], [facility] 3 12:26:59 Periphera l neuropath y due to type 2 diabetes mellitus 316176436259 7 Active 2022 FENG KRAFT PA-C [address] , [address], [place], [address], [facility] [employer] 3 12:27:14 Essential hypertens ion 46065517 Active 2022 FENG KRAFT PA-C [address], [address], [place], [address], [facility] [employer] [facility] 3 12:27:19 Dyslipide adrian 083730569 Active 2022 FENG KRAFT PA-C [address], [address], [place], [address], [facility] 3 12:27:26 Autoimmun e thyroidit is 85839167 Active 2022 FENG KRAFT PA-C [address], [address], [place], [address], [facility] 3 12:27:35 Anemia 379315858 Active 2022 FENG KRAFT PA-C [address], [address], [place], [address], [facility] 3 12:27:41 Chronic hyponatre adrian 93638832 Active 2022 FENG KRAFT PA-C [address], [address], [place], [address], [facility] 3 12:27:47 Depressiv e disorder 59388914 Active 2022 FENG KRAFT PA-C [address], [address], [place], [address], [facility] [employer] [facility] 3 12:27:52 Vitamin D deficienc y 08967349 Active 2022 FENG KRAFT PA-C [address], [address], [place], [address], [employer] 3 12:28:00 Pain of right knee joint 968776208715 100 Active 2022 FENG KRAFT PA-C [address], [address], [place], [address], [facility] 3 12:28:14 Congestiv e heart failure 12704753 Active 2022 details [email or web address] KRAFT PA-C [address], [address], [place], [address], 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 940478609060 34634 Active 2022 Puja Luke MD [address], [place], [address], [facility] 3 19:57:21 Chronic osteomyel itis of right foot 531872891036 9104 Active 2022 Puja Luke MD [address] [facility], [address], [place], [address], [facility] 3 19:59:07 Acute cholecyst itis 11483714 Active 2023 s/p david C 06/2023 ARTURO PAZ NP [address], [address], [place], [address], [facility] 4 14:22:11 Impaired cognition 257853734 Active 2023 SLUMS completed 07/25/23, score 17 ARTURO PAZ NP [address], [address], [place], [address], [facility] 4 11:03:32 Acute osteomyel itis of right foot 464454512314 9104 Active 2023 ARTURO PAZ NP [address], [address], [place], [address], [facility] 4 11:04:08 Diabetic foot ulcer 550813372 Active 2024 Gail Goncalves NP [address], [address], [place], [address], [facility] 5 10:42:27 Problem Notes None recorded. Medical Equipment None Reported. Allergies Allergen ID Allergen Name Allergen Category Reaction Reaction Severity Criticality Documentation Date Start Date Code Code System Note Provider Name and Address Organization Details Recorded Time [id number] 35c0f Lipitor medicatio n rash Not available Not available 07/02/2022 13625 5 RxNorm can take Zocor Not Available Not Available Not Available Vitals Date Recorded Body height Body mass index (BMI) Body weight Heart rate Respiratory rate Body temperature Oxygen saturation Oxygen saturation in Arterial blood by Pulse oximetry Systolic blood pressure Diastolic blood pressure Provider Name and Address Organization Details Last Updated DateTime 5 165.1 cm 44.1 kg/m2 190860. 98 g 70 /min 18 /min 98 [degF] 97 % 97 % 128 mm[Hg] 68 mm[Hg] Gail Goncalves NP [address], [address], [place], [address], [facility] 5 15:39:47 Social History Question Answer Notes LastModified by Organization Details LastModified Time Tobacco Smoking Status Never Smoker FENG KRAFT PA-C [address], [address], [place], [address], [facility] 07/02/2022 11:36:18 Do You Have An Advance Directive? Yes Full Code; All Interventions Information not available 07/06/2022 What Is Your Level Of Alcohol Consumption? None [email or web address] Information not available 07/02/2022 What Is Your Code Status? Full Code Information not available 07/03/2022 Where Do You Live? Nursinghome Now LTC At [facility], Previously Lived At [facility], Awaiting Snf Placement Information not available 01/23/2024 Legal Guardian? No Informati on not available 07/03/2022 Do You Have A Medical Power Of Abrasive Grinder? Yes Has HCP - Invoke Has Newer HCP Per Part Time, Family Recently Reunited Information not available 07/08/2024 What Was The Date Of Your Most Recent Tobacco Screening? 07/08/2024 Information not available 07/08/2024 Do You Have An Out Of Hospital DNR? No Information not available 07/03/2022 What Is Your Relationship Status? Single Information not available 07/03/2022 Do You Use Any Illicit Or Recreational Drugs? No [email or web address] Information not available 07/02/2022 Has Tobacco Cessation Counseling Been Provided? No N/A As Pt Is A Non-smoker Information not available 07/03/2022 Do You Or Have You Ever Used Any Other Forms Of Tobacco Or Nicotine? No [email or web address] Information not available 07/02/2022 Sex: Unknown Functional Status None recorded. Mental Status None recorded. Family History Relationship Description Onset Age of this Age Resolved Age Notes LastModified by Organization Details LastModified Time Father Essential hypertension dece ed [email or web address] Not available 07/02/2022 11:34:54 Mother Type 2 diabetes mellitus dece ed Not available 07/02/2022 11:35:10 Medical History No medical history recorded. Immunizations Vaccine Type Date Status Note Provider Nam e and Address Organization Details Recorded Time COVID-19, mRNA, LNP-S, PF, 30 mcg/0.3 mL dose 1 completed ARNEL MOSER-C [address], [address], [place], [address], [facility] 07/02/2022 11:29:08 COVID-19, mRNA, LNP-S, PF, 30 mcg/0.3 mL dose 1 completed ARNEL MOSER-C [address], [address], [place], [address], [facility] 07/02/2022 11:29:11 Tdap 6 completed ARNEL MOSER-C [address], [address], [place], [address], [facility] [employer] [facility] 07/02/2022 11:29:24 pneumococcal polysaccharide PPV23 7 completed ARNEL MOSER-C [address], [address], [place], [address], [facility] 07/02/2022 11:29:42 Influenza, split virus, quadrivalent, PF 3 completed ARNEL MOSER-C [address], [address], [place], [address], [facility] 08/10/2022 13:17:40 pneumococcal polysaccharide PPV23 3 completed FENG KRAFT PA-C [address], [address], [place], [address], [facility] 08/10/2022 13:18:04 COVID-19, mRNA, LNP-S, bivalent, PF, 30 mcg/0.3 mL dose 3 completed FENG KRAFT PA-C [address], [address], [place], [address], [facility] 08/10/2022 13:18:32 Influenza, adjuvanted, quadrivalent, PF 3 completed Nyla bullard, [facility] 08/09/2023 17:56:04 COVID-19, mRNA, LNP-S, bivalent, PF, 30 mcg/0.3 mL dose 3 completed Nyla bullard, [facility] 08/12/2023 11:51:52 Past Encounters Encounter ID Performer Location Encounter Start Date Encounter Closed Date Diagnosis/Indication Diagnosis SNOMED-CT Code Diagnosis ICD10 Code Diagnosis Note [id number] Gail Goncalves NP [address] [address] 06/26/2024 15:38:47 06/29/2024 13:27:33 Open wound of left foot [id number] S91.302A send pt to er and call 911 for left foot cellulitis and likely sepsis Health Concerns Section Related Observation LastModified by Organization Detai ls LastModified Time None Recorded Concern Status LastModified by Organization Details LastModified Time None Recorded Payers Encounter Date Sequence Insurance Name Policy Number Policy Meza Covered Member ID Meza Member ID Guarantor Name 06/26/2024 1 [place] [employer] A Beltranmadhu Montanez [id number] Mehul Voa 06/26/2024 2 [place] [facility] Mehul Voa [id number] Mehul Voa Notes Date Note Type Note Provider Name and Address Organization Details Recorded Time 06/26/2024 text/html Mehul is seen today for an acute visit. Mehul is a 53 yo LTC resident, PMH including AODM-poorly controlled with neuropathy, PVD, HTN, acanthosis nigricans, HLD, autoimmune thyroiditis, anemia, hyponatremia, depression, Vit D deficiency, chronic R knee pain (wears brace), chronic bilateral hand pain (uses splints), hx of JJ, developmental delay, s/p R cataract extraction, peripheral edema, and obesity seen with todayfor nursing concern of left foot drainage. Pt has a history of right nonhealing metatarsal amp with two failed skin grafts followed by wound weekly, however noted to have new drainage and wound to the left foot today. Of note: recently noted on 06/22 to have fever, chills, and increased BS with workup ordered by orthodontic treatment coordinator provider recently. One liter of NS given per nsg report. CXR showed no acute process. Respiratory panel neg for covid. Urinalysis on 06/22 without infection. Wbc on 06/23 10.6. Labs with wbc count of 13 on 06/25/24 and increase shift notable and other labs results as below. On exam, Mehul is very sick with chills, tachycardia of 107, rr 22, 95% ra, HR 107, and notable left foot infection with copious yellow purulent drainage to the left mid to lateral foot, warm to touch, decreased circulation with swelling and 5th toe white/pineda in color. His forehead warm. Temp 98. He has a anusha bandage to the lower left leg which is removed for increased circulation. Due to the notable infection and risk for possible loss of foot and likely sepsis will send to ER emergently. Gail Goncalves NP [address], [address], [place], [address], [facility] [employer] 06/26/2024 17:12:30
[2024-07-08 15:38] VITALS: BP 112/65; PULSE 70; RESP 16; TEMP 36.3; O2SAT 99
== END 2024-07-08 15:39 | disposition skilled nursing facility (03) ==
PROVIDERS: Emergency Provider Student in an Organized Health Care Education/Training Program; PCP Family Medicine
DX: S91.302A Unspecified open wound, left foot, initial encounter (principal); E11.9 Type 2 diabetes mellitus without complications; X58.XXXA Exposure to other specified factors, initial encounter; Y93.9 Activity, unspecified; Y92.9 Unspecified place or not applicable; Y99.8 Other external cause status; Z79.899 Other long term (current) drug therapy; Z79.4 Long term (current) use of insulin
CPT/HCPCS: 99283

== ENCOUNTER → 2024-07-17 10:24 | Outpatient (BNVA) | payer MEDICARE, MEDICAID, SELFPAY | PROVIDERS: PCP Family Medicine; Visit Provider Surgery | DX: E11.621 Type 2 diabetes mellitus with foot ulcer (principal); L97.516 Non-pressure chronic ulcer of other part of right foot with bone involvement without evidence of necrosis | CPT/HCPCS: 99212 ==

== ENCOUNTER 2024-08-14 09:23 | Outpatient (AMB) | payer MEDICARE, MEDICAID, SELFPAY ==
--- NOTE | 2024-08-14 09:34 | A.OFFVIS_ITS ---
Vital Signs 08/14/24 09:45 Height 5 ft 7 in Weight 253 lb 8.505 oz BMI 39.7 BP 110/68 Blood Pressure Location Lt brachial Position Sitting Pulse 70 Intake Visit Reasons: one month, s/p Amputation of left 4th and 5th toes Intake Note: Patient is seen in office for one month follow up visit, post amputation of left 4th and 5th toes, debridement right foot. Pt c/o:denies any concerns at the time of visit Sales Trader Required: Yes Sales Trader Language: Bicycle I Assembler Services: Sales Trader Present Sales Trader Name: Amber WATERS Information Interpreted: non-clinical & clinical Bar Pointer: Bar Pointer Present Accompanied by: Self / Same As Patient Allergies atorvastatin [ATORVASTATIN] Allergy (Unknown, Verified 08/14/24 09:45) skin eruption HPI Comments Details: Patient returns for wound check following debridement of right transmetatarsal amputation site and amputation of left 4th and 5th toe performed on 07/03/2024. He reports that he is going to wound care center weekly. He denies any significant pain in either foot. [facility] Medical History Anemia Diabetic foot ulcer Diabetic foot ulcer Diabetic foot ulcer Acute osteomyelitis of right foot Nausea and vomiting Bacteremia Bilateral hand pain Right knee pain Hypovitaminosis D Right foot pain Left foot pain Infection of penis Hyponatremia Hyperkalemia Diabetic ketoacidosis Acute kidney injury Autoimmune thyroiditis Obesity due to excess calories Type 2 diabetes mellitus with hyperglycemia, with long-term current use of insulin CHF (congestive heart failure) Cognitive developmental delay Proteinuria Type 2 diabetes mellitus with other diabetic kidney complication Essential hypertension Hyperlipidemia LDL goal <100 Edema Hyperlipidemia Cataracts, both eyes HTN (hypertension) Hypothyroid Diabetes Surgical History History of amputation of toe (07/03/24) S/P split thickness skin graft (07/10/21) Hx laparoscopic cholecystectomy (10/16/22) 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 Hx of removal of cyst Hx of cataract surgery Family History Father HTN (hypertension) Mother Diabetes mellitus Maternal Grandmother Diabetes mellitus Social History Household Members: Friend(s) Household Members Other:: senior care Housing: Apartment Housing Other:: SNF Are you a primary patient care secretary to a significant other at home: No Do you presently have visiting nurse or other home services: No Unable to assess alcohol history related to: Unknown Alcohol intake: never Patient Tobacco Use Status: Never used Tobacco e-Cigarette/Vaping Use: Never Used Second Hand Smoke Exposure: No Substance Use Type: Caffiene Advance Directives Date on File: 07/25/23 service: No Current occupational status: disabled Cognitive needs: Yes Hearing needs: No Vision needs: No Physical Exam Vital Signs: Last Vital Signs Pulse 70 08/14/24 09:45 BP 110/68 08/14/24 09:45 BMI result Body Mass Index 39.7 Const General: no acute distress and lethargic Nutritional Appearance: well nourished Orientation/consciousness: lethargic Limitations: wheelchair Resp Effort & Inspection: normal respiratory effort Extrem Other: Dressings changed to bilateral feet. Left foot status post 4th and 5th toe amputation. The remaining sutures were removed today. Open wound with granulation tissue at the base. This was dressed with silver alginate followed by fluff gauze, Kerlix and Nixon bandage. Right foot with good granulation tissue but minimal new epithelium. No debridement required. Wound redressed with silver alginate, fluff gauze, Kerlix and Nixon bandage. Assessment & Plan Assessment & Plan (1) Diabetic foot ulcer: Comment: He has osteomyelitis concern. Code(s): E11.621 - Type 2 diabetes mellitus with foot ulcer; L97.509 - Non-pressure chronic ulcer of other part of unspecified foot with unspecified severity Category: Medical Qualifiers: Diabetes mellitus type: type 2 Diabetic foot ulcer location: midfoot Laterality: left Non-pressure ulcer stage: with bone involvement without evidence of necrosis Qualified Code(s): E11.621 - Type 2 diabetes mellitus with foot ulcer; L97.426 - Non-pressure chronic ulcer of left heel and midfoot with bone involvement without evidence of necrosis Plan Patient reports should continue with daily wound care and follow-up with the [facility]. He should follow up in approximately 2 months for wound examination. Coding Level of Care Code Global (54047) Diagnoses Diabetic ulcer of left midfoot associated with type 2 diabetes mellitus, with bone involvement without evidence of necrosis E11.621; L97.426 Diabetes mellitus type: type 2 Diabetic foot ulcer location: midfoot Laterality: left Non-pressure ulcer stage: with bone involvement without evidence of necrosis
[2024-08-14 09:45] VITALS: BP 110/68; PULSE 70; BMI 39.7
--- OUTSIDE RECORDS SUMMARY | 2024-08-14 09:51 | XMS_ITS | Encounter Summary ---
Author Organization Access Point Address [address] [place] [address] Care Team Providers Care Bricklayer Tender Name Role Phone Isai Reaves MD Primary Care Provider [phone] Encounter Details Date Type Department Care Team (Late st Contact Info) Description 07/14/2024 Lab Requisition [facility] - Main Lab [address] [facility] [place] [address] Isai Reaves MD [address] [place] [address] [address] [place], [phone] Hyperlipidemia, unspecified; Hypothyroidism, unspecified; Osteomyelitis, unspecified (CMS/HCC); Type 2 diabetes mellitus without complications (CMS/HCC) Social History Tobacco Use Types Packs/Day Years Used Date Smoking Tobacco: Never Assessed Sex and Gender Information Value Date Recorded Sex Assigned at Not on file Legal Sex Male 8:57 PM EST Gender Identity Not on file Sexual Orientation Not on file documented as of this encounter Plan of Treatment Not on file documented as of this encounter Procedures Procedure Name Priority Date/Time Associated Diagnosis Comments SEDIMENTATION RATE Routine 07/15/2024 7: 43 AM EST Hyperlipidemia, unspecified Hypothyroidism, unspecified Osteomyelitis, unspecified (CMS/HCC) Type 2 diabetes mellitus without complications (CMS/HCC) COMPLETE BLOOD COUNT Routine 07/15/2024 7:43 AM EST Hyperlipidemia, unspecified Hypothyroidism, unspecified Osteomyelitis, unspecified (CMS/HCC) Type 2 diabetes mellitus without complications (CMS/HCC) C-REACTIVE PROTEIN Routine 07/15/2024 7: 43 AM EST Hyperlipidemia, unspecified Hypothyroidism, unspecified Osteomyelitis, unspecified (CMS/HCC) Type 2 diabetes mellitus without complications (CMS/HCC) BASIC METABOLIC PANEL Routine 07/15/2024 7:43 AM EST Hyperlipidemia, unspecified Hypothyroidism, unspecified Osteomyelitis, unspecified (CMS/HCC) Type 2 diabetes mellitus without complications (CMS/HCC) documented in this encounter Results * (ABNORMAL) Sedimentation rate (07/15/2024 7:43 AM EST) Pathologist [facility] Sed Rate 115(H) 0 - 20 mm/hr LAB HEMETOLOGY METHOD 07/15/2024 11:27 AM EST [facility] Blood Venous blood specimen / Unknown Venipuncture / Unknown 07/15/2024 7:43 AM EST 07/15/2024 11:14 AM EST us Isai Reaves MD LAB BLOOD ORDERABLES Final Resul t Performing Organization Address [facility] de Phone Number [facility] [address] [place] [address], [place] [phone] * (ABNORMAL) C-reactive protein (07/15/2024 7:43 AM EST) [facility] C-Reactive Protein 0.67(H) <=0.50 mg/dL LAB CHEMISTRY METHOD 07/15/2024 1:04 PM EST [facility] Comment:Results verified by repeat testing Blood Venous blood specimen / Unknown Venipuncture / Unknown 07/15/2024 7:43 AM EST 07/15/2024 11:14 AM EST Isai Reaves MD LAB BLOOD ORDERABLES Final Resul t Performing Organization Address [facility]/ZIP Co de Phone Number [facility] [address] [place] [address], [place] [phone] * (ABNORMAL) Basic metabolic panel (07/15/2024 7:43 AM EST) [facility] Sodium 134 133 - 145 mmol/L LAB CHEMISTRY METHOD 07/15/2024 1:04 PM EST [facility] Potassium 5.0 3.5 - 5.5 mmol/L LAB CHEMISTRY METHOD 07/15/2024 1:04 PM [facility] Comment:Hemolysis present Chloride 106 96 - 110 mmol/L LAB CHEMISTRY METHOD 07/15/2024 1:04 PM [facility] CO2 23 21 - 32 mmol/L LAB CHEMISTRY METHOD 07/15/2024 1:04 PM [facility] Anion Gap 5 3 - 11 LAB CHEMISTRY METHOD 07/15/2024 1:04 PM [facility] Glucose 194(H) 70 - 100 mg/dL LAB CHEMISTRY METHOD 07/15/2024 1:04 PM [facility] BUN 23 5 - 25 mg/dL LAB CHEMISTRY METHOD 07/15/2024 1:04 PM [facility] Creatinine 1.12 0.70 - 1.30 mg/dL LAB CHEMISTRY METHOD 07/15/2024 1:04 PM [facility] eGFR 78 >=60 mL/min/1. 73m2 LAB CHEMISTRY METHOD 07/15/2024 1:04 PM [facility] Comment:Calculation based on the??Chronic Kidney Disease Epidemiology Collaboration (CKD-EPI) equation refit??without adjustment for race. BUN/Creatinine Ratio 20.5 LAB CHEMISTRY METHOD 07/15/2024 1:04 PM [facility] Calcium 9.2 8.5 - 10.5 mg/dL LAB CHEMISTRY METHOD 07/15/2024 1:04 PM [facility] Blood Venous blood specimen / Unknown Venipuncture / Unknown 07/15/2024 7:43 AM EST 07/15/2024 11:14 AM EST us Isai Reaves MD LAB BLOOD ORDERABLES Final Resul t [facility] [address] [place] [address], * (ABNORMAL) Complete blood count (07/15/2024 7:43 AM EST) [facility] WBC 6.9 4.8 - 10.8 K/mcL LAB HEMETOLOGY METHOD 07/15/2024 12:06 PM [facility] RBC 3.80(L) 4.50 - 5.50 M/mcL LAB HEMETOLOGY METHOD 07/15/2024 12:06 PM [facility] Hemoglobin 10.4(L) 13.5 - 17.5 g/dL LAB HEMETOLOGY METHOD 07/15/2024 12:06 PM [facility] Hematocrit 33.0(L) 42.0 - 54.0 % LAB HEMETOLOGY METHOD 07/15/2024 12:06 PM [facility] MCV 86.8 79.0 - 98.0 FL LAB HEMETOLOGY METHOD 07/15/2024 12:06 PM [facility] MCH 27.4 27.0 - 32.0 pcg LAB HEMETOLOGY METHOD 07/15/2024 12:06 PM [facility] MCHC 31.5(L) 32.0 - 37.0 g/dL LAB HEMETOLOGY METHOD 07/15/2024 12:06 PM [facility] RDW 13.2 11.0 - 15.0 % LAB HEMETOLOGY METHOD 07/15/2024 12:06 PM [facility] Platelets 292 130 - 400 K/mcL LAB HEMETOLOGY METHOD 07/15/2024 12:06 PM [facility] MPV 10.7 7.0 - 11.0 FL LAB HEMETOLOGY METHOD 07/15/2024 12:06 PM [facility] NRBC 0.0 <1.0 % LAB HEMETOLOGY METHOD 07/15/2024 12:06 PM [facility] NRBC Absolute 0.00 <0.10 K/mcL LAB HEMETOLOGY METHOD 07/15/2024 12:06 PM EST [facility] Blood Venous blood specimen / Unknown Venipuncture / Unknown 07/15/2024 7:43 AM EST 07/15/2024 11:14 AM EST Isai Reaves MD LAB BLOOD ORDERABLES Final Resul t [facility] [address] [place] [address], documented in this encounter Visit Diagnoses Diagnosis Hyperlipidemia, unspecified Hypothyroidism, unspecified Osteomyelitis, unspecified (CMS/HCC) Type 2 diabetes mellitus without complications (CMS/HCC) documented in this encounter Care Teams Bricklayer Tender Relationship Specialty Start Date End Date Isai Reaves MD [address] [place] [address], [phone] PCP - General Family Medicine 05/08/24 documented as of this encounter
--- OUTSIDE RECORDS SUMMARY | 2024-08-14 09:51 | XMS_ITS | Clinical Summary ---
Author Organization [employer] Address [address] [facility] [address] [place] [address] Care Team Providers Care Imcu Nurse Name Role Phone Unavailable Primary Care Provider Unavailabl e Social History Tobacco Use Types Packs/Day Years Used Date Smoking Tobacco: Never Assessed Sex and Gender Information Value Date Recorded Sex Assigned at Male 04/23/2022 10:32 AM EDT Legal Sex Male 10:32 AM EDT Gender Identity Not on file Sexual Orientation Not on file Plan of Treatment Health Maintenance Due Date Last Done Comments CT Colonography 1969 Colonoscopy 1969 Colorectal Cancer Screening 1969 Depression Screening 1969 FIT DNA/Cologuard 1969 FIT 1969 FOBT 1969 Lipid Panel 1969 Sigmoidoscopy 1969 Alcohol/Substance Use Screening 1981 Tobacco Screening 1981 DTaP/Tdap/Td Vaccines (1 - Tdap) 1988 Hepatitis B Vaccines (1 of 3 - 19+ 3-dose series) 1988 Pneumococcal Vaccine: 50+ Ye ars (1 of 1 - PCV) 09/03/2019 Zoster Vaccines (1 of 2) 09/03/2019 COVID-19 Vaccine (2023-2 5 season) 2024 Influenza Vaccine (#1) 2024 RSV Patients and Pa tients Aged 60 years or older (1 - 1-dose 75+ series) 2044 HIB Vaccines Aged Out No longer eligi ble based on patient's age to complete this topic HPV Vaccines Aged Out No longer eligi ble based on patient's age to complete this topic Hepatitis A Vaccines Aged Out No long er eligible based on patient's age to complete this topic IPV Vaccines Aged Out No longer eligi ble based on patient's age to complete this topic Meningococcal Vaccine Aged Out No zach maximilian eligible based on patient's age to complete this topic Pneumococcal Vaccine: Pediat rics (0 to 5 Years) and At-Risk Patients (6 to 49) Years) Aged Out No longer eligible b ased on patient's age to complete this topic RSV under 20 months Aged Out No longe r eligible based on patient's age to complete this topic Rotavirus Vaccines Aged Out No longer eligible based on patient's age to complete this topic
--- OUTSIDE RECORDS SUMMARY | 2024-08-14 09:51 | XMS_ITS | Continuity of Care Document ---
Author Organization [facility], [facility] Address [address] [place] [address] Care Team Providers Care Wardrobe Coordinator Name Role Phone NICK CUETO Primary Care Provider [phone] [facility] - 3RD FLOOR OTHER Assessment No assessment recorded. Plan of Treatment Reminders Order Date Submit Date Provider Last Modified By Organization Details Last Modified Time Details Appointments None record ed. Lab None record ed. Referral None record ed. Procedures None record ed. Surgeries None record ed. Imaging None record ed. Medication Orders None record ed. Patient TargetsNo targets recorded. Patient InstructionsNo instructions recorded. Reason for Referral None Reported. Problems Name Problem SNOMED Code Status Onset Date Resolution Date Notes Provider Name and Address Organization Details Recorded Time Diabetic foot ulcer 018852010 Active 2022 FENG KRAFT PA-C [address], [address], [place], [address], [facility] [facility] 3 12:26:29 Type 2 diabetes mellitus with periphera l angiopath y 192192711 Active 2022 FENG KRAFT PA-C [address], [address], [place], [address], [facility] [employer] [facility] 3 12:26:45 Renal disorder due to type 2 diabetes mellitus 086947339 Active 2022 FENG KRAFT PA-C [address], [address], [place], [address], [facility] [employer] [facility] 3 12:26:59 Periphera l neuropath y due to type 2 diabetes mellitus 328165674020 7 Active 2022 FENG KRAFT PA-C [address], [address], [place], [address], [facility] [email or web address] 3 12:27:14 Essential hypertens ion 83789226 Active 2022 FENG KRAFT PA-C [address], [address], [place], [address], [facility] [employer] 3 12:27:19 Dyslipide [facility] 485412772 Active 2022 FENG KRAFT PA-C [address], [address], [place], [address], [facility] [employer] [facility] 3 12:27:26 Autoimmun e thyroidit is 05726829 Active 2022 FENG KRAFT PA-C [address], [address], [place], [address], [facility] 3 12:27:35 Anemia 935222509 Active 2022 FENG KRAFT PA-C [address], [address], [place], [address], [facility] 3 12:27:41 Chronic hyponatre adrian 93707197 Active 2022 FENG KRAFT PA-C [address], [address], [place], [address], [facility] 3 12:27:47 Depressiv e disorder 00557783 Active 2022 FENG KRAFT PA-C [address], [address], [place], [address], [facility] 3 12:27:52 Vitamin D deficienc y 85969636 Active 2022 FENG KRAFT PA-C [address], [address], [place], [address], [facility] 3 12:28:00 Pain of right knee joint 047634431684 100 Active 2022 FENG KRAFT PA-C [address], [address], [place], [address], [facility] 3 12:28:14 Congestiv e heart failure 53353279 Active 2022 details unk FENG KRAFT PA-C [address], [address], [place], [address], [facility] [email or web address] [facility] 3 12:28:32 Uncontrol led type 2 diabetes mellitus 221647766 Active 2022 Puja Luke MD [address], [address], [place], [address], [facility] [email or web address] [facility] 3 18:14:15 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 738249330005 66766 Active 2022 Puja Luke MD [address], [address], [place], [address], [facility] [employer] [facility] 3 19:57:21 Chronic osteomyel itis of right foot 097105592451 9104 Active 2022 Puja Luke MD [address], [address], [place], [address], [facility] 3 19:59:07 Acute cholecyst itis 11720086 Active 2023 s/p [facility]id [facility] 06/2023 ARTURO PAZ NP [address], [address], [place], [address], [facility] 4 14:22:11 Impaired cognition 580991781 Active 2023 SLUMS completed 07/25/23, score 17 ARTURO PAZ NP [address], [address], [place], [address], [facility] 4 11:03:32 Acute osteomyel itis of right foot 561189252402 9104 Active 2023 ARTURO PAZ NP [address], [address], [place], [address], [facility] 4 11:04:08 Diabetic foot ulcer 748197498 Active 2024 Gail Goncalves NP [address], [address], [place], [address], [facility] 5 10:42:27 Problem Notes None recorded. Medical Equipment None Reported. Allergies Allergen ID Allergen Name Allergen Category Reaction Reaction Severity Criticality Documentation Date Start Date Code Code System Note Provider Name and Address Organization Details Recorded Time 04162 Lipitor medicatio n rash Not available Not available 07/02/2022 99084 5 RxNorm can take Zocor Not Available Not Available Not Available Vitals Date Recorded Body height Body weight Body mass index (BMI) Heart rate Respiratory rate Body temperature Oxygen saturation Oxygen saturation in Arterial blood by Pulse oximetry Systolic blood pressure Diastolic blood pressure Provider Name and Address Organization Details Last Updated DateTime 5 165.1 cm 218012. 24 g 42.8 kg/m2 64 /min 18 /min 98.6 [degF] 97 % 97 % 132 mm[Hg] 64 mm[Hg] Gail Goncalves NP [address], [address], [place], [address], [facility] 5 13:33:43 Social History Question Answer Notes LastModified by Organization Details LastModified Time Tobacco Smoking Status Never Smoker FENG KRAFT PA-C [address], [address], [place], [address], [facility] 07/02/2022 11:36:18 Do You Have An Advance Directive? Yes Full Code; All Interventions [email or web address] Information not available 07/06/2022 What Is Your Level Of Alcohol Consumption? None [email or web address] Information not available 07/02/2022 What Is Your Code Status? Full Code Information not available 07/03/2022 Where Do You Live? Nursinghome Now LTC At [facility], Previously Lived At [facility], Awaiting Long Term Placement Information not available 01/23/2024 Legal Guardian? No Informati on not available 07/03/2022 Do You Have A Medical Power Of Fulfillment Coordinator? Yes Has HCP - Invoke Has Newer HCP Per Boots And Shoes Supervisor, Family Recently Reunited Information not available 07/08/2024 What Was The Date Of Your Most Recent Tobacco Screening? 07/08/2024 Information not available 07/08/2024 Do You Have An Out Of Hospital DNR? No Information not available 07/03/2022 What Is Your Relationship Status? Single Information not available 07/03/2022 Do You Use Any Illicit Or Recreational Drugs? No Information not available 07/02/2022 Has Tobacco Cessation Counseling Been Provided? No N/A As Pt Is A Non-smoker [email or web address] Information not available 07/03/2022 Do You Or Have You Ever Used Any Other Forms Of Tobacco Or Nicotine? No [email or web address] Information not available 07/02/2022 Sex: Unknown Functional Status None recorded. Mental Status None recorded. Family History Relationship Description Onset Age of this Age Resolved Age Notes LastModified by Organization Details LastModified Time Father Essential hypertension dece ed [email or web address] Not available 07/02/2022 11:34:54 Mother Type 2 diabetes mellitus dece ed [email or web address] Not available 07/02/2022 11:35:10 Medical History No medical history recorded. Immunizations Vaccine Type Date Status Note Provider Nam e and Address Organization Details Recorded Time COVID-19, mRNA, LNP-S, PF, 30 mcg/0.3 mL dose 1 completed FENG KRAFT PA-C [address], [address], [place], [address], [facility] 07/02/2022 11:29:08 COVID-19, mRNA, LNP-S, PF, 30 mcg/0.3 mL dose 1 completed FENG KRAFT PA-C [address], [address], [place], [address], [facility] 07/02/2022 11:29:11 Tdap 6 completed FENG KRAFT PA-C [address], [address], [place], [address], [facility] 07/02/2022 11:29:24 pneumococcal polysaccharide PPV23 7 completed FENG KRAFT PA-C [address], [address], [place], [address], [facility] 07/02/2022 11:29:42 Influenza, split virus, quadrivalent, PF 3 completed FENG KRAFT PA-C [address], [address], [place], [address], [facility] 08/10/2022 13:17:40 pneumococcal polysaccharide PPV23 3 completed FENG KRAFT PA-C [address], [place], [address], [facility] 08/10/2022 13:18:04 COVID-19, mRNA, LNP-S, bivalent, PF, 30 mcg/0.3 mL dose 3 completed FENG KRAFT PA-C [address], [place], [address], [facility] 08/10/2022 13:18:32 Influenza, adjuvanted, quadrivalent, PF 3 completed Nyla bullard, [facility] 08/09/2023 17:56:04 COVID-19, mRNA, LNP-S, bivalent, PF, 30 mcg/0.3 mL dose 3 completed Nyla bullard, [facility] 08/12/2023 11:51:52 Past Encounters Encounter ID Performer Location Encounter Start Date Encounter Closed Date Diagnosis/Indication Diagnosis SNOMED-CT Code Diagnosis ICD10 Code Diagnosis Note [id number] Gail Goncalves NP [facility] [address] [address] 07/08/2024 09:46:45 07/08/2024 11:17:52 Open wound of left foot 4616990993 9422250 S91.302A send pt to er and call 911 for left foot dehiscence and overt bleeding going through dressing and towelalso please have hosp assess if central line is needed or if a picc line for abx is more appropriat e in this setting [id number] Gail Goncalves NP [facility] [address] [address] 07/09/2024 08:22:11 07/10/2024 15:20:10 Open wound of left foot 2156298789 4541761 S91.302A Left diabetic foot ulcer open wound with 4th and 5th metartarsa l ampopen left foot wound with dehisence with notable bone, tendon, and tissue exposed(no te: he was sent back to [facility] on 07/08 for overt bleeding and dehiscence , evaluated by surgeon and sent back here without interventi on later that day felt he can fu with [place] [facility] [place] Mendoza in near future)redd n from [facility] Dr MENDOZA:ns g to make fu with Dr Mendoza at [facility] surgeons IN 1-2 WEEKSwound team to follow heredaily silver alginate to bilateral lower extremity wounds with dry clean dressingco mpression prn for worsening bleedingco mplete 6 weeks of IV rocephin 2gram qd end date 08/12/24-ox ycodone 5 mg po q 6 hours prn pain-picc to right chest ([facility] confirmed this is a picc to right chest in paperwork) not in either armof note: payton placed on 07/07/24 during hospitaliz ation to right chestdue to above will use picc protocol here and have IR or PICC service remove at end of abx course.cbc and bmp weekly and prn if bleeding worsens Diabetic foot ulcer 3710 79735 L97.518 chronic wound, with noncomplia nce to diet and fluid restrictio n and labs in pastElecti ve skin graft attempted at [facility] x 2, both did not take.[place] [facility] [place] [facility] in [facility]tinue [facility] surgical eval and tx.Also followed by Wound PA-C in house for local care and debridemen t prnContinu e local wound careTubigr ip for gentle compressio nMonitor VS, labsMainta in glucose control. Type 2 vanda betes mellitus with peripheral angiopathy 571367539 E11.52 E11.42 Continue:T resiba 20U qammounjar o 5mg sc q thursmetfo rmin 750 mg po dailyLispr o per sliding scaleqhs snackConti nue to trend BS and A1Cs Peripheral edema 9841700 00 R60.9 peripheral edema stable with anusha wraps, not on diuretics at this time.consi erik low dose diuretic prnMonitor closely Chronic ki dney disease stage 3A 362583173 N18.31 Stable at new baseline.C ontinue to avoid nephrotoxi c meds as able.F/U with renal, Dr. Alonzo, prn.Acute on Chronic AKIoff diuretics at this timecurren tly on metformin 750 mg po qdMonitor for N/V/DFollo w up wtih Renal Dr. Alonzo as needed.Alex id nephrotoxi csmonitor closely and see above management labs cbc with diff, bmp, esr, crp, ck, level on wednesdays Anemia 726985779 D64.89 has anemia now with open left foot wound amp of 4th and 5th toes and increased bleedingns g to monitor bleeding and apply pressure dressings prnMonitor ing CBC weekly for now on wednesdays see above Congestive heart failure 92848787 I50.22 hx ofAppetite great, not clear if water weight with recent weight increasehx . of diet noncomplia nce.Not on diuretics at this time, but may need to consider.M aintain meds for BP controlMon itor closely for decompensa tion. Depressive disorder 3548 9007 F33.0 Continuees citalopram 10 mg dailyMonit or mood, behaviors Dyslipidemia 231911054 E 78.49 Continueze tia 10 mg dailysimva statin 40 mg dailyfenof ibrate 54 mg dailyCheck LFTs, lipid panel prn Essential hypertension 01918327 I10 Continue:l isinopril 10 mg qdamlodipi ne 10 mg qdMonitor BP and labs. Sepsis 07145032 A41.9 see above Osteomyeli tis of left foot 7601433200 883132 M86.9 see above [id number] [facility] [address] 07/15/2024 09:21:48 07/16/2024 11:16:06 Open wound of left foot 1760084158 6299354 S91.302A Left diabetic foot ulcer with 4th and 5th metartarsa l amp wiht open left foot wound with notable bone, tendon, and tissue exposed now starting to heal inplan from [facility] Dr MENDOZA:ns g to make fu with Dr Mendoza at [facility] surgeons IN 1-2 WEEKSwound team to follow heredaily silver alginate to bilateral lower extremity wounds with dry clean dressingco mpression prn for worsening bleeding, seems to be helpingcom plete 6 weeks of IV rocephin 2gram qd end date 08/12/24-ox ycodone 5 mg po q 6 hours prn pain-picc to right chest ([facility] confirmed this is a picc to right chest in paperwork) not in either armof note: payton placed on 07/07/24 during hospitaliz ation to right chestdue to above will use picc protocol here and have IR or PICC service remove at end of abx course, not to have nursing remove herecbc and bmp weekly and prn if bleeding worsenssee wound note Sepsis 26215465 A41.9 see above Osteomyeli tis of left foot 3612024367 868821 M86.9 see above Diabetic foot ulcer 3710 38988 L97.518 chronic wound, with noncomplia nce to diet and fluid restrictio n and labs in pastElecti ve skin graft attempted at [facility] x 2, both did not take. no skin graft on this past admissionh [place] [facility] also while in hospital[facility]tinue [facility] surgical eval and tx.Also followed by Wound PA-C in house for local care and debridemen t prnContinu e local wound careTubigr ip for gentle compressio nMonitor VS, labsMainta in glucose control.se e wound note Chronic ki dney disease stage 3A 647647501 N18.31 Stable at new baseline.C ontinue to avoid nephrotoxi c meds as able.F/U with renal, Dr. Alonzo, prn.Acute on Chronic AKIoff diuretics at this timecurren tly on metformin 750 mg po qdMonitor for N/V/DFollo w up wt Renal Dr. Alonzo as needed.Alex id nephrotoxi csmonitor closely and see above management labs cbc with diff, bmp, esr, crp, ck, level on wednesdays Type 2 vanda betes mellitus with peripheral angiopathy 618693451 E11.52 E11.42 Continue:T resiba 20U qammounjar o 5mg sc q thursmetfo rmin 750 mg po dailyLispr o per sliding scaleqhs snackConti nue to trend BS and A1Cs Peripheral edema 8574221 00 R60.9 peripheral edema stable with anusha wraps, not on diuretics at this time.consi erik low dose diuretic prnMonitor closely Anemia 671408982 D64.89 has anemia now with open left foot wound amp of 4th and 5th toes and bleeding more controlled with anusha compressio nnsg to monitor bleeding and apply pressure dressings prnMonitor ing CBC weekly for now on wednesdays see above [id number] Gail Goncalves NP [address] [address] 07/22/2024 13:31:36 07/24/2024 10:39:24 Open wound of left foot 0390189737 1041441 S91.302A Left diabetic foot ulcer with 4th and 5th metatarsal amp with open left foot wound with notable bone, tendon, and tissue exposedpla n from [facility] Dr MENDOZA:stephany g to make fu with Dr Mendoza at [facility] surgeons IN 1-2 WEEKSwound team to follow heredaily silver alginate to bilateral lower extremity wounds with dry clean dressing and anusha wrapcompre ssion prn for worsening bleeding, seems to be helpingcom plete 6 weeks of IV rocephin 2gram qd end date 08/12/24-ox ycodone 5 mg po q 6 hours prn pain-picc to right chest ([facility] confirmed this is a picc to right chest in paperwork) not in either armof note: payton placed on 07/07/24 during hospitaliz ation to right chestdue to above will use picc protocol here and have IR or PICC service remove at end of abx course, not to have nursing remove herecbc and bmp weekly and prn if bleeding worsenssee wound note Sepsis 05951661 A41.9 see above Osteomyeli tis of left foot 8806033832 987171 M86.9 see above Diabetic foot ulcer 3710 80371 L97.518 chronic wound with increased bleeding today, with noncomplia nce to diet and fluid restrictio n and labs in pastElecti ve skin graft attempted at [facility] x 2, both did not take. no skin graft on this past admissionh [place] [facility] also while in hospitalCo [facility]tinue [facility] surgical eval and tx.followe d by Wound PANitishC in house for local care and debridemen t prnContinu e local wound care, anusha wrap for compressio n for bleedingMo nitor VS, labsMainta in glucose control.se e wound note weeklylabs trended Chronic ki dney disease stage 3A 778348997 N18.31 Stable at new baseline.C ontinue to avoid nephrotoxi c meds as able.F/U with renal, Dr. Alonzo, prn.Acute on Chronic AKIoff diuretics at this timecontme tformin 750 mg po qdFollow up [facility] Dr[facility] Alonzo as needed.Alex id nephrotoxi csmonitor closely and see above management labs cbc with diff, bmp, esr, crp, ck, level on wednesdays Type 2 vanda betes mellitus with peripheral angiopathy 901786983 E11.52 E11.42 Continue:T resiba 20U qammounjar o 5mg sc q thursmetfo rmin 750 mg po dailyLispr o per sliding scaleqhs snackConti nue to trend BS and A1Cs and adjust for ckd prn Peripheral edema 3193498 00 R60.9 peripheral edema stable with anusha wraps, not on diuretics at this time.consi erik low dose diuretic prnMonitor closely Anemia 370467312 D64.89 has anemia now with open left foot wound amp of 4th and 5th toes and bleeding more controlled with anusha compressio nnsg to monitor bleeding and apply pressure dressings prnMonitor ing CBC weekly for now on wednesdays see above Congestive heart failure 92015463 I50.22 hx ofAppetite great, not clear if water weight with recent weight increasehx . of diet noncomplia nce.Not on diuretics at this time, but may need to consider.M aintain meds for BP controlMon itor closely for decompensa tion. Depressive disorder 3548 9007 F33.0 Continuees citalopram 10 mg dailyMonit or mood, behaviors Dyslipidemia 603879613 E 78.49 Continueze tia 10 mg dailysimva statin 40 mg dailyfenof ibrate 54 mg dailyCheck LFTs, lipid panel prn Essential hypertension 96510756 I10 Continue:l isinopril 10 mg qdamlodipi ne 10 mg qdMonitor BP and labs. [id number] Gail Goncalves NP [address] [address] 08/05/2024 13:20:08 08/06/2024 13:45:32 Open wound of left foot 7609010588 2660338 S91.302A Left diabetic foot ulcer with 4th and 5th metatarsal amp with open left foot wound with notable bone, tendon, and tissue exposedpla n from [facility] Dr MENDOZA:ns g to make fu with Dr Mendoza at [facility] surgeons IN 1-2 WEEKSwound team to follow heredaily silver alginate to bilateral lower extremity wounds with dry clean dressing and anusha wrapcompre ssion prn for worsening bleeding, seems to be helpingcom plete 6 weeks of IV rocephin 2gram qd end date 08/12/24-ox ycodone 5 mg po q 6 hours prn pain-picc to right chest ([facility] confirmed this is a picc to right chest in paperwork) not in either armof note: payton placed on 07/07/24 during hospitaliz ation to right chestdue to above will use picc protocol here and have IR or PICC service remove at end of abx course, not to have nursing remove herecbc and bmp weekly and prn if bleeding worsenssee wound note 08/05 nsg to reach out to surgeon for fu appt of nonhealing ulcer Osteomyeli tis of left foot 3906214345 764859 M86.9 see below Diabetic foot ulcer 3710 33318 L97.518 chronic wound with increased bleeding today, with noncomplia nce to diet and fluid restrictio n and labs in pastElecti ve skin graft attempted at [facility] x 2, both did not takehad debridemen t [place] [facility] [place] while in [facility]tinue [facility] surgical eval and tx.followe d by Wound PA-C in house for local care and debridemen t prnContinu e local wound care, anusha wrap for compressio n for bleedingMo nitor VS, labsMainta in glucose control.se e wound note weeklylabs trended Sepsis 99275796 A41.9 resolvedse e abovebmp and cbc weekly Chronic ki dney disease stage 3A 502985817 N18.31 Stable at new baseline as aboveConti nue to avoid nephrotoxi c meds as able.F/U with renal, Dr. Alonzo, prn.Acute on Chronic AKIoff diuretics at this timecontme tformin 750 mg po qdFollow up wtih Renal Dr. Athreya as needed.Alex id nephrotoxi csmonitor closely and see above management labs cbc with diff, bmp, esr, crp, ck, level on wednesdays Type 2 vanda betes mellitus with peripheral angiopathy 722572167 E11.52 E11.42 Continue:T resiba 20U qammounjar o 5mg sc q thursmetfo rmin 750 mg po dailyLispr o per sliding scaleqhs snackConti nue to trend BS and A1Cs and adjust for ckd prn Peripheral edema 3944092 00 R60.9 peripheral edema stable with anusha wraps, not on diuretics at this time.consi erik low dose diuretic prnMonitor closely Health Concerns Section Related Observation LastModified by Organization Detai ls LastModified Time None Recorded Concern Status LastModified by Organization Details LastModified Time None Recorded Payers Encounter Date Sequence Insurance Name Policy Number Policy Meza Covered Member ID Meza Member ID Guarantor Name 08/05/2024 1 [place]ARE [place] [employer] A Devin Spang[place]illo [id number] Mehul Beltran 08/05/2024 2 [place] [facility] Mehul Beltran [id number] Mehul Beltran Notes Date Note Type Note Provider Name and Address Organization Details Recorded Time 08/05/2024 text/html Mehul is seen today for an acute visit. PMH including AODM-poorly controlled with neuropathy, PVD, HTN, acanthosis nigricans, HLD, autoimmune thyroiditis, anemia, hyponatremia, depression, Vit D deficiency, chronic R knee pain (wears brace), chronic bilateral hand pain (uses splints), hx of JJ, developmental delay, s/p R cataract extraction, peripheral edema, and obesity. This is a 53 yo man, LTC resident, with right foot ulcer and left metatarsal amp and continues to be non-compliant with care at times. His left metatarsal amp of 4th and 5th toes is stable and no malodor or overt bleeding noted today. Area remains detoriating and wound seen pt on 08/04 and rec following up with surgeon. He remains on ceftriaxone for osteomyelitis. His right metatarsal amp remains with nonhealing stable status. Labs reviewed and crp trending up. Will recommend fu with surgeon. Gail Goncalves NP [address] [place] [address], [address], [place], [id number], [facility] 08/05/2024 13:49:41
--- OUTSIDE RECORDS SUMMARY | 2024-08-14 09:51 | XMS_ITS | Data Portability ---
Author Organization [facility] [address], Main Office Address [address] [facility] [place] [address] Care Team Providers Care Costume Director Name Role Phone NICK CUETO Primary Care Provider [facility] OTHER Assessment No [...] Organization Details Recorded Time Diabetic foot ulcer 282226276 Active 2022 FENG KRFAT PA-C [address], [place], [address], [facility] [employer] [facility] 3 12:26:29 Type 2 diabetes mellitus with periphera l angiopath y 853801302 Active 2022 FENG KRAFT PA-C [address] , [address], [place], [address], [facility] [employer] 3 12:26:45 Renal disorder due to type 2 diabetes mellitus 646280800 Active 2022 FENG KRAFT PA-C [address], [address], [place], [address], [facility] [employer] 3 12:26:59 Periphera l neuropath y due to type 2 diabetes mellitus 589986599127 7 Active 2022 FENG KRAFT PA-C [address] , [address], [place], [address], [facility] [employer] 3 12:27:14 Essential hypertens ion 25730323 Active 2022 ARNEL MOSER-C [address], [address], [place], [address], [facility] 3 12:27:19 Dyslipide adrian 283458148 Active 2022 FLORA MOSERC [address], [address], [place], [address], [facility] 3 12:27:26 Autoimmun e thyroidit is 64057933 Active 2022 FENG KRAFT PA-C [address], [address], [place], [address], [facility] 3 12:27:35 Anemia 850036270 Active 2022 FENG KRAFT PA-C [address], [address], [place], [address], [facility] 3 12:27:41 Chronic hyponatre adrian 94623106 Active 2022 FENG KRAFT PA-C [address], [address], [place], [address], [facility] 3 12:27:47 Depressiv e disorder 12015272 Active 2022 FENG KRAFT PA-C [address], [address], [place], [address], [facility] 3 12:27:52 Vitamin D deficienc y 03982731 Active 2022 FENG KRAFT PA-C [address], [address], [place], [address], [facility] 3 12:28:00 Pain of right knee joint 992372921280 100 Active 2022 FLORA MOSERC [address], [address], [place], [address], [facility] 3 12:28:14 Congestiv e heart failure 38156802 Active 2022 details unk FLORA MOSERC [address], [address], [place], [address], [facility] 3 12:28:32 Uncontrol led type 2 diabetes mellitus 530728503 Active 2022 Puja Luke MD [address] [facility], [address], [place], [address], [facility] 3 18:14:15 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 376881206676 83717 Active 2022 Puja Luke MD [address] [facility], [address], [place], [address], [facility] 3 19:57:21 Chronic osteomyel itis of right foot 222180133613 9104 Active 2022 Puja Luke MD [address] [facility], [address], [place], [address], [facility] 3 19:59:07 Acute cholecyst itis 99781040 Active 2023 s/p [facility] 06/2023 ARTURO PAZ NP [address] [facility], [address], [place], [address], [facility] 4 14:22:11 Impaired cognition 376303030 Active 2023 SLUMS completed 07/25/23, score 17 ARTURO PAZ NP [address] [facility], [address], [place], [address], [facility] 4 11:03:32 Acute osteomyel itis of right foot 942752739959 9104 Active 2023 ARTURO PAZ NP [address] [facility], [address], [place], [address], [facility] 4 11:04:08 Diabetic foot ulcer 425511378 Active 2024 Gail Goncalves NP [address] [facility], [address], [place], [address], [facility] 5 10:42:27 Problem Notes None recorded. Medical Equipment None Reported. Allergies Allergen ID Allergen Name Allergen Category Reaction Reaction Severity Criticality Documentation Date Start Date Code Code System Note Provider Name and Address Organization Details Recorded Time 16363 Lipitor medicatio n rash Not available Not available 07/02/2022 76169 5 RxNorm can take Zocor Not Available Not Available Not Available Vitals Date Recorded Body height Body mass index (BMI) Body weight Heart rate Respiratory rate Body temperature Oxygen saturation Oxygen saturation in Arterial blood by Pulse oximetry Systolic blood pressure Diastolic blood pressure Provider Name and Address Organization Details Last Updated DateTime 5 165.1 cm 44.1 kg/m2 642592. 98 g 70 /min 18 /min 98 [degF] 97 % 97 % 116 mm[Hg] 84 mm[Hg] Gail Goncalves NP [address] , [address], [place], [address] , [address] [facility] 5 08:23:47 Date Recorded Body height Body weight Heart rate Respiratory rate Body temperature Oxygen saturation Oxygen saturation in Arterial blood by Pulse oximetry Systolic blood pressure Diastolic blood pressure Provider Name and Address Organization Details Last Updated DateTime 5 165.1 cm 245453. 05 g 70 /min 18 /min 97.9 [degF] 97 % 97 % 128 mm[Hg] 72 mm[Hg] Gail Goncalves NP [address] [facility], [facility] [address], [place], [address] , [facility] 5 12:08:04 Date Recorded Body height Heart rate Respiratory rate Body temperature Oxygen saturation Oxygen saturation in Arterial blood by Pulse oximetry Systolic blood pressure Diastolic blood pressure Provider Name and Address Organization Details Last Updated DateTime 5 165.1 cm 68 /min 18 /min 97.5 [degF] 96 % 96 % 134 mm[Hg] 82 mm[Hg] Gail Goncalves NP [address] , [address], [place], [address], [facility] 5 17:01:16 Date Recorded Body height Body weight Heart rate Respiratory rate Body temperature Oxygen saturation Oxygen saturation in Arterial blood by Pulse oximetry Systolic blood pressure Diastolic blood pressure Provider Name and Address Organization Details Last Updated DateTime 5 165.1 cm 060774. 24 g 80 /min 18 /min 98.1 [degF] 99 % 99 % 132 mm[Hg] 76 mm[Hg] Gail Goncalves NP [address] [facility], [address], [place], [address], [facility] 5 08:07:35 Date Recorded Body height Body weight Body mass index (BMI) Heart rate Respiratory rate Body temperature Oxygen saturation Oxygen saturation in Arterial blood by Pulse oximetry Systolic blood pressure Diastolic blood pressure Provider Name and Address Organization Details Last Updated DateTime 5 165.1 cm 968900. 24 g 42.8 kg/m2 64 /min 18 /min 98.6 [degF] 97 % 97 % 132 mm[Hg] 64 mm[Hg] Gail Goncalves NP [address] [facility], [address], [place], [address], [facility] 5 13:33:43 Date Recorded Body height Heart rate Respiratory rate Body temperature Oxygen saturation Oxygen saturation in Arterial blood by Pulse oximetry Systolic blood pressure Diastolic blood pressure Provider Name and Address Organization Details Last Updated DateTime 5 165.1 cm 72 /min 18 /min 97.5 [degF] 98 % 98 % 128 mm[Hg] 68 mm[Hg] ARTURO PAZ NP [address] [facility], [address], [place], [address], [facility] 5 15:54:39 Social History Question Answer Notes LastModified by Organization Details LastModified Time Tobacco Smoking Status Never Smoker FENG KRAFT PA-C [address] [facility], [address], [place], [address], [facility] 07/02/2022 11:36:18 Do You Have An Advance Directive? Yes Full Code; All Interventions [email or web address] Information not available 07/06/2022 What Is Your Level Of Alcohol Consumption? None [email or web address] Information not available 07/02/2022 What Is Your Code Status? Full Code Information not available 07/03/2022 Where Do You Live? Nursinghome Now LTC At [facility], Previously Lived At [facility], Awaiting Alf Placement Information not available 01/23/2024 Legal Guardian? No [email or web address] Informat[employer] on not available 07/03/2022 Do You Have A Medical Power Of Stacker? Yes Has HCP - Invoke Has Newer HCP Per [facility], Family Recently Reunited Information not available 07/08/2024 What Was The Date Of Your Most Recent Tobacco Screening? 07/08/2024 Information not available 07/08/2024 Do You Have An Out Of Hospital DNR? No Information not available 07/03/2022 What Is Your Relationship Status? Single Information not available 07/03/2022 Do You Use Any Illicit Or Recreational Drugs? No [email or web address] Information not available 07/02/2022 Has Tobacco Cessation Counseling Been Provided? No N/A As Pt Is A Non-smoker Information not available 07/03/2022 Do You Or Have You Ever Used Any Other Forms Of Tobacco Or Nicotine? No [email or web address] Information not available 07/02/2022 Sex: Unknown Functional Status None recorded. Mental Status None recorded. Family History Relationship Description Onset Age of this Age Resolved Age Notes LastModified by Organization Details LastModified Time Father Essential hypertension dece ed [email or web address] Not available 07/02/2022 11:34:54 Mother Type 2 diabetes mellitus dece ed [email or web address] Not available 07/02/2022 11:35:10 Medical History No medical history recorded. Immunizations Vaccine Type Date Status Note Provider Nam e and Address Organization Details Recorded Time COVID-19, mRNA, LNP-S, PF, 30 mcg/0.3 mL dose 1 completed FENG KRAFT PA-C [address] [facility], [address], [place], [address], [facility] 07/02/2022 11:29:08 COVID-19, mRNA, LNP-S, PF, 30 mcg/0.3 mL dose 1 completed FENG KRAFT PA-C [address], [place], [address], [facility] 07/02/2022 11:29:11 Tdap 6 completed FENG KRAFT PA-C [address], [address], [place], [address], [facility] 07/02/2022 11:29:24 pneumococcal polysaccharide PPV23 7 completed FENG KRAFT PA-C [address] [facility], [address], [place], [address], [facility] 07/02/2022 11:29:42 Influenza, split virus, quadrivalent, PF 3 completed FENG KRAFT PA-C [address] [facility], [address], [place], [address], [facility] 08/10/2022 13:17:40 pneumococcal polysaccharide PPV23 3 completed EFNG KRAFT PA-C [address] [facility], [address], [place], [address], [facility] 08/10/2022 13:18:04 COVID-19, mRNA, LNP-S, bivalent, PF, 30 mcg/0.3 mL dose 3 completed FENG KRAFT PA-C [address] [facility], [address], [place], [address], [facility] 08/10/2022 13:18:32 Influenza, adjuvanted, quadrivalent, PF 3 completed Nyla bullard, [facility] 08/09/2023 17:56:04 COVID-19, mRNA, LNP-S, bivalent, PF, 30 mcg/0.3 mL dose 3 [facility] 11:51:52 Past Encounters Encounter ID Performer Location Encounter Start Date Encounter Closed Date Diagnosis/Indication Diagnosis SNOMED-CT Code Diagnosis ICD10 Code Diagnosis Note [id number] FENG KRAFT PA-C [address] [address] 07/02/2022 11:11:40 07/24/2022 15:26:07 Diabetic foot ulcer 102426874 E13.621 ErtapenemP robioticNe eds weekly CBC with diff, CMP while on abx-fax results to Dr. Kristen Fraser, IDAdd Vit C 500 mg po bid x 30 days, Zinc 220 mg po bid x 14 days, and Vit A 10k ux po daily x 10 days to promote wound healing-re nal function normal on recent labsGlycem ic control important for wound healingWou nd specialist consult Type 2 vanda betes mellitus with peripheral angiopathy 954523398 E11.51 Aggressive basal-bolu s regimen likely targets his dietary non-compli ance at home. Since doesn't have access to the same unhealthy foods while here, will decrease his prandial insulin to 10 ux SQ tid but hold until eats at least 50% of mealContin ue correction al insulinMon itor sugars and adjust meds prnOn STACY-I for renal protection Essential hypertension 78907572 I10 Monitor BPs and adjust meds prn Dyslipidemia 546427517 E 78.5 on medsoutpat ient f/u with PCP Anemia 113783782 D64.9 Follow CBC Autoimmune thyroiditis 12660874 E06.3 Biochemica lly euthyroid on recent labs Chronic hyponatremia 503 21628 E87.1 ?some degree of pseudohypo natremia from hyperglyce miaCould be related to HCTZ+/- SSRICan tolerate serum Na at least 128Follow divalents Congestive heart failure 09610947 I50.9 Compensate dNo details available Depressive disorder 3548 9007 F32.A Denies SI/HIConti nue 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 Kristen Fraser, ID Type 2 vanda betes mellitus with peripheral angiopathy 699373727 E11.51 E11.42 E11.65 Last HgA1C at [facility] was 2020 and it was >14.Sugars great since here, likely because diet more controlled .Continue Tresiba 40U qd, Novolog 10U with meals, metformin 500 mg BID, and Trulicity 1.5 mg weekly.Con tinue gabapentin 100 mg q 8 hrs for neuropathy Continue fingerstic ks QID and will check HgA1C with next labs. Essential hypertension 23580271 I10 Good control on HCTZ 25 mg qd, lisinopril 10 mg qd and amlodipine 10 mg po qd.Monitor BP and labs. Dyslipidemia 862007967 E 78.49 Continue Zetia 10 mg po qd, simvastati n 40 mg qhs and fenofibrat e 54 mg qd.Monitor labs as outpt. Anemia 396197723 D64.89 Stable.Mon itor Autoimmune thyroiditis 40325652 E06.3 Had nl TSH inpt.Tonio nue levothyrox ine 150 mcg qd.Monitor as outpt Chronic hyponatremia 503 49355 E87.1 Only sl. low.No need to change meds or fluid restrict.M onitor. Congestive heart failure 25083823 I50.22 Appears euvolemic. Continue meds as above.Maame tor resp. status, fluid status, wts and labs. Depressive disorder 3548 9007 F33.0 Mood good today.Cont inue escitalopr am 10 mg qd.Monitor mood.Consu lt psych prn Pain of ri ght knee joint 3588432010 19818 M25.561 PT/OT Vitamin D deficiency 347 11779 E56.8 Continue Vitamin D 2000 IU qd.Monitor as outpt. Asthenia 71781727 R53.1 Somewhat deconditio paige.Needs PT/OT for strengthen ing, balance, gait training, safety and function.C ontinue fall precaution s.Monitor for safety. [id number] FENG KRAFT PA-C [facility] [address] [address] 07/04/2022 14:48:30 07/11/2022 20:23:38 Diabetic foot ulcer 422901953 E13.621 ErtapenemC RP downweekly labsfollow clinically PT/OT [id number] FENG KRAFT PA-C [facility] [address] [address] 07/09/2022 17:02:17 07/26/2022 10:40:09 Diabetic foot ulcer 735804612 L97.518 continue ertapenemC RP slightly up from prior week but overall downFollow labsFollow clinically Fever 330688308 R50.9 low-gradee xam benignno symptomson ertapenem as abovefollo w clinically [id number] FENG KRAFT PA-C [facility] [address] [address] 07/16/2022 10:37:05 08/06/2022 16:22:25 Type 2 diabetes mellitus with peripheral angiopathy 990373460 E11.51 d/c prandial insulincor rectional insulin onlyMonito r sugars and adjust meds prnOn STACY-I for renal protection [id number] FENG KRAFT PA-C [facility] [address] [address] 07/20/2022 14:38:49 08/14/2022 15:20:39 Type 2 diabetes mellitus with peripheral angiopathy 743740733 E11.51 off prandial insulinsug ars well-contr olledMonit or sugars and adjust meds prnOn STACY-I for renal protection Diabetic foot ulcer 3710 56982 L97.518 on ertapenem until 08/10foot looks goodinflam matory markers slightly variable since admit but overall downremain s afebrilef/ u prn [id number] FENG KRAFT PA-C [facility] [address] [address] 08/03/2022 16:00:24 08/14/2022 15:28:34 Unintentional weight loss 154131641 R63.4 some degree of wt loss is desirable in this patientdoe s not have as much access to the unhealthie r foods that he typically eats in the communityb iochemical ly euthyroid on recent labsmonito r weightsRD also following Type 2 vanda betes mellitus with peripheral angiopathy 141724580 E11.51 off prandial insulinsug ars well-contr olledMonit or sugars and adjust meds prnConside r decrease frequency of monitoring sugarsOn STACY-I for renal protection Diabetic foot ulcer 3710 28191 L97.518 on ertapenem until 08/10foot looks goodweekly labsf/u prn [id number] FENG KRAFT PA-C [facility] [address] [address] 08/10/2022 14:48:36 08/14/2022 15:55:14 Diabetic foot ulcer 286661023 L97.518 completing abx todayd/c PICC after last dose of ertapenemf /u prn [id number] Isai Reaves MD [facility] [address] [address] 09/03/2022 08:37:09 09/06/2022 16:25:25 Diabetic foot ulcer 774904263 L97.518 recently completed ertapenemc ontinue wound careconcer n for infection in patient with recent sepsiscbc with diff and blood cultures x 2continue to monitorto ED for acute decompensa tion [id number] FENG KRAFT PA-C [facility] [address] [address] 09/20/2022 11:07:47 09/25/2022 15:12:14 Bacteremia caused by Methicillin resistant Staphylococcus aureus 9802115324 3559570 R78.81 and E. faecalis Vanc/linez olid until 10/26/22 Needs weekly CBCD, BMP, and Vanc trough weekly while on abx-titrat e Vanc to 10-20 since no vertebral involvemen tHold Lexapro while on linezolidd /c prn Zofran since will be on linezolid Add probiotic x 7 weeks Chronic os teomyelitis of right foot 3019893699 802680 M86.671 s/p TMAAbx as aboveDress ings as recommende dRecommend ed to f/u wound clinic even though surgical wound - clarify if should go to [facility] wound clinic or if can be followed by in-house administration specialist .Has previously had Vit C, Zinc, and Vit A - not sure worth repeatingN eeds tight glycemic control to promote wound healing Uncontroll ed type 2 diabetes mellitus 261977094 E11.65 Regimen has undergone multiple adjustment s since admitLikel y more hyperglyce bennie than usual given underlying infectionM onitor sugars and adjust meds prnRecent A1c 7.7On STACY-I for renal protection [id number] Puja Luke MD [place] [address] [place] [address] 09/21/2022 17:35:51 09/25/2022 15:22:33 Bacteremia caused by Methicillin resistant Staphylococcus aureus 9525486597 3579166 R78.81 B95.62 And E. faecalisWi th increased sxs today. Temp was 100 yest, WNL today.Cont inue vanco titrated to troughs 10-20 and linezolid 600 mg BID, both until 10/26/22An d probiotic BID until 11/02Will get labs in AM-CBC, CMP, ESR, CRP and vanco trough. Chronic os teomyelitis of right foot 1503710686 401722 M86.671 TMA was healing poorly inpt.Need to monitor closely.Ne eds tight glycemic control and increased protein for healing.F/ U with surgeon and wound care as planned.Ma y need BKA if not healing well. Uncontroll ed type 2 diabetes mellitus 634507763 E11.65 E11.52 Needs tighter control to help wound healing. Sugars have been high since return, likely due to infection. Will increase metformin to 1000 mg BID and continue Tresiba 40U qd, and Trulicity 1.5 mg weekly.Als o SSI only ordered BID, change to TID.Contin ue gabapentin 100 mg q 8 hrs for neuropathy Monitor fingerstic ks QID. Asthenia 69804200 R53.1 Is deconditio paige.Needs PT/OT for strengthen ing, balance, gait training, safety and function.C ontinue fall precaution s.Monitor for safety. Essential hypertension 85562502 I10 Remains in good control since HCTZ d/c'dConti nue lisinopril 10 mg qd and amlodipine 10 mg po qd.Monitor BP and labs. Dyslipidemia 817275485 E 78.49 Continue Zetia 10 mg po qd, simvastati n 40 mg qhs and fenofibrat e 54 mg qd.Monitor labs as outpt. Anemia 751155142 D64.89 Stable.Mon itor Autoimmune thyroiditis 75517104 E06.3 Had nl TSH inpt.Tonio nue levothyrox ine 150 mcg qd.Monitor as outpt Chronic hyponatremia 503 75782 E87.1 Was 125 in ED on last admission. HCTZ d/c'd with improvemen t.Monitor weekly for now. Congestive heart failure 57128076 I50.22 Appears euvolemic. Continue meds as above.Maame tor resp. status, fluid status, wts and labs. Depressive disorder 3548 9007 F33.0 Mood ok today.Cont inue escitalopr am 10 mg qd.Monitor mood.Consu lt psych prn [id number] [facility] [place] [address] 10/04/2022 13:51:43 10/10/2022 11:42:32 Bacteremia caused by Methicillin resistant Staphylococcus aureus 6044352127 4760879 R78.81 B95.62 And E. faecalisVS SLabs stableVanc o level high yesterday, dose held, recheck to day 17.6.Menon e IV Vanco to 1 gm q 24 hrs, next trough Saturday.Con tinue linezolid. Surgical follow up tomorrowCo ntinue local wound care.Tonio nue vanco titrated to troughs 10-20 and linezolid 600 mg BID, both until 10/26/22An d probiotic BID until 11/02CBCD, CMP, CRP, Vanco trough q saturday Chronic os teomyelitis of right foot 2762295013 367251 M86.671 TMA was healing poorly inpt.Tx. as aboveConti nue to monitor closely.Ne eds tight glycemic control and increased protein for healing.F/ U with surgeon and wound care as planned.Ma y need BKA if not healing well. Uncontroll ed type 2 diabetes mellitus 335076405 E11.65 E11.52 Needs tighter control to help wound healing. Sugars have been high since return, likely due to infection. Increased metformin to 1000 mg BID and continues on Tresiba 40U qd, and Trulicity 1.5 mg weekly.Als o SSI TID.BS now running onthe lower side, will reduce tresiba to 36 units dailyConti nue to monitor.Co ntinue gabapentin 100 mg q 8 hrs for neuropathy Essential hypertension 72427498 I10 Remains in good control since HCTZ d/c'dConti nue lisinopril 10 mg qd and amlodipine 10 mg po qd.Monitor BP and labs. Anemia 064509434 D64.89 Stable. Hgb in 8s.Monitor labs, s/s bleeding Chronic hyponatremia 503 74328 E87.1 Was 125 in ED on last admission, now 133.HCTZ d/c'dMonit or weekly for now. [id number] ARTURO PAZ NP [address] [place] [address] 10/11/2022 12:08:15 10/12/2022 12:39:48 Bacteremia caused by Methicillin resistant Staphylococcus aureus 9848420482 6056714 R78.81 B95.62 And E. faecalisVS SLabs stableVanc o level high last week, dose changed to 1 gm q 24 hrs - trough this week 12.3Contin ue linezolid. Continue zofran prn for GI upsetWas to have surgical follow up - will check with nsg. re: reportCont inue local wound care.Tonio nue vanco titrated to troughs 10-20 and linezolid 600 mg BID, both until 10/26/22An d probiotic BID until 11/02CBCD, CMP, CRP, Vanco trough q saturday Chronic os teomyelitis of right foot 2930424444 279424 M86.671 TMA was healing poorly inpt.Tx. as aboveConti nue to monitor closely.Ne eds tight glycemic control and increased protein for healing.F/ U with surgeon and wound care as planned.Ma y need BKA if not healing well. Uncontroll ed type 2 diabetes mellitus 527985973 E11.65 E11.52 Needs tight control to help wound healing. Sugars were high since return, likely due to infection. Meds were increased, now BS running on the lower side, plus appetite not as good due to GI upset.Curr ently on:metform in to 1000 mg BIDTresiba 30U qd (was 40 units) - continue to reduce as neededTrul icity 1.5 mg weekly.Als o SSI TID. Continue to monitor.Co ntinue gabapentin 100 mg q 8 hrs for neuropathy Essential hypertension 23725682 I10 Remains in good control since HCTZ d/c'dConti nue lisinopril 10 mg qd and amlodipine 10 mg po qd.Monitor BP and labs. Anemia 309571880 D64.89 Stable. Hgb in 8.9 -> 8Monitor labs, s/s bleeding Chronic hyponatremia 503 79593 E87.1 Was 125 in ED on last admission, now 137.HCTZ d/c'dMonit or weekly for now. [id number] Puja Luke MD [address] [place] [address] 10/12/2022 12:52:29 10/16/2022 12:09:59 Nausea and vomiting 37538435 R11.2 Started on Zofran on 10/10, labs were WNL on 10/08.Will recheck labs STAT today.Will schedule Zofran 4 mg q 6 hrs.Also will hold Trulicity as this can cause nausea. Consider holding metformin also.Will also check CXR and KUB to r/o other source of infection causing sxs and to r/o ileus/part ial obstructio n.If unable to control nausea and no acute findings on labs, consider ED eval Acute diarrhea 816757557 R19.7 As above.Also will check for c. diff Bacteremia caused by Methicillin resistant Staphylococcus aureus 7949112213 1098791 R78.81 B95.62 And E. faecalisVa nco level good on 10/08 and CRP low again.Cont inue local wound care.Tonio nue vanco titrated to troughs 10-20 and linezolid 600 mg BID, both until 10/26/22An d probiotic BID until 11/02Contin ue to monitor CBCD, CMP, CRP, and Vanco trough q saturdayHad surgical f/u on 10/05, they felt wound was healing well and instructed on dressing changes and wanted f/u in 1 month. Chronic os teomyelitis of right foot [id number] 942766 M86.671 As above. Uncontroll ed type 2 diabetes mellitus 347894091 E11.65 E11.52 Sugars have been running low, this AM sugar charted as 460, but on review with nurse it was actually 160, and she will correct this in computer.C ontinue gabapentin 100 mg q 8 hrs for neuropathy Essential hypertension 02759877 I10 BP in good control.Co ntinue lisinopril 10 mg qd and amlodipine 10 mg po qd.Monitor BP and labs. Anemia 489021236 D64.89 Dropped a little this week, from 8.9 -> 8Monitor labs, s/s bleedingTr ansfuse for hgb <7 Chronic hyponatremia 503 63087 E87.1 Na+ nl at 137 on 10/08.Will recheck today as pt drinking water and reji alvin without eating. Type 2 vanda betes mellitus with peripheral angiopathy 644580671 E11.52 E11.42 Sugars have been running low, this AM sugar charted as 460, but on review with nurse it was actually 160, and she will correct this in computer.W ill hold trulicity as above.Cont inue Tresiba 30U qd, metformin 1000 mg BID and SSI.Contin ue gabapentin 100 mg q 8 hrs for neuropathy Continue fingerstic ks QID and HgA1C [id number] uPja Luke MD [address] [address] 10/18/2022 17:28:42 10/24/2022 16:44:04 Acute cholecystitis 14091130 K81.0 S/P cholecyste ctomy.Ricardo vering as expected.M onitor wound.F/U with surgeon as planned. Type 2 vanda betes mellitus with peripheral angiopathy 192636949 E11.52 E11.42 Will restart trulicity, now that we know N/V were not due to this.[place]uli city 1.5 mg weekly.Con tinue Tresiba 30U qd, metformin 1000 mg BID and SSI.Contin ue gabapentin 100 mg q 8 hrs for neuropathy Continue fingerstic ks QID and HgA1C Bacteremia caused by Methicillin resistant Staphylococcus aureus 0134939132 8648420 R78.81 B95.62 Abxs d/c'd inpt.Tonio nue to monitor CBCD, CMP, CRP q saturdayF/U with surgeon as planned to arrange skin graft. Chronic os teomyelitis of right foot 9616617458 798311 M86.671 As above. Essential hypertension 28099243 I10 BP in good control.Co ntinue lisinopril 10 mg qd and amlodipine 10 mg po qd.Monitor BP and labs. Anemia 246609710 D64.89 Dropped post-op and required transfusio n.Now back to baseline.M onitor weekly. Chronic hyponatremia 503 10029 E87.1 WNL while inpt.Monit or prn. [id number] ETHAN Sidhu [address] [address] 10/23/2022 14:44:16 10/31/2022 08:37:50 Acute cholecystitis 69353245 K81.0 S/P cholecyste ctomyRecov eringMonit or woundF/U with surgeon Type 2 vanda betes mellitus with peripheral angiopathy 596623702 E11.52 E11.42 BS 100s to 200s, once at 350Trulici ty 1.5 mg weeklyTres iba 30U qdmetformi n 1000 mg BIDSliding scalegabap entin 100 mg q 8 hrs for neuropathy BS QID and adjust meds prn Bacteremia caused by Methicillin resistant Staphylococcus aureus 5274596300 4385440 R78.81 B95.62 Abxs d/c'd inptContin ue to monitor CBCD, CMP, CRP q saturday - results as above for 10/22/22U with surgeon as planned to arrange skin graft. Essential hypertension 97453903 I10 BP normallisi nopril 10 mg qdamlodipi ne 10 mg qdMonitor BP and labs. [id number] ETHAN Sidhu [facility] on [address] [place] [address] 10/30/2022 07:25:57 11/05/2022 11:40:02 Acute cholecystitis 45648296 K81.0 S/P cholecyste ctomyRecov eredMonito r woundF/U with surgeon Type 2 vanda betes mellitus with peripheral angiopathy 868303382 E11.52 E11.42 BS normal - 100sTrulic ity 1.5 mg weeklyTres iba 30U qdmetformi n 1000 mg BIDdc Sliding scalegabap entin 100 mg q 8 hrs for neuropathy decrease BS to bid and adjust meds prn Bacteremia caused by Methicillin resistant Staphylococcus aureus 4075146125 4233641 R78.81 B95.62 Abxs d/c'd inptCBCD, bmp q saturday - results as above for 10/29/22 with surgeon as planned to arrange skin graft. Essential hypertension 55359040 I10 BP normallisi nopril 10 mg qdamlodipi ne 10 mg qdMonitor BP and labs. [id number] ARTURO PAZ NP [place] [address] [place] [address] 12/05/2022 10:04:59 12/07/2022 09:15:39 Acute cholecystitis 31554927 K81.0 S/P cholecyste ctomyRecov eredF/U with surgeon prn Type 2 vanda betes mellitus with peripheral angiopathy 117444024 E11.52 E11.42 BS excellent control - mostly low 100s, some FBS<100Als o with some weight loss, ? if accurateCo ntinue:Darrell licity 1.5 mg weeklyTres iba - reduce from 30U qd to 20 U qdmetformi n 1000 mg BIDBS BID q wk and prncontinu e gabapentin 100 mg q 8 hrs for neuropathy A1C q 3-[address] meds prn Bacteremia caused by Methicillin resistant Staphylococcus aureus 9290158102 8252393 R78.81 B95.62 Resolved,F /U with surgeon as planned to arrange skin graft. Essential hypertension 10369070 I10 BP stableCont inue:lisin opril 10 mg qdamlodipi ne 10 mg qdMonitor BP and labs. Anemia 805229186 D64.89 Improving. Hgb now 10Monitor CBCs Autoimmune thyroiditis 29944851 E06.3 Continue levothyrox ine 150 mg dialyTSH yearly and prn Chronic hyponatremia 503 53917 E87.1 Most recent level 143.Off HCTZMonito r prn Congestive heart failure 79235918 I50.22 Not on meds at this time.Monit or closely for decompensa tion. Depressive disorder 3548 9007 F33.0 Continue escitalopr am 10 mg daily Chronic os teomyelitis of right foot 1501189280 106891 M86.671 s/p TMA, healing/im proving per nsg.F/U with surgeon, followed by wound team here.Tonio nue to monitorLab s, VS stable Dyslipidemia 778665270 E 78.49 Continue zetia 10 mg daily, simvastati n 40 mg daily, and fenofibrat e 54 mg dailyLipid panel LFTs q6-12 months Vitamin D deficiency 347 62467 E56.8 Continue po supplement D level prn [id number] [facility] [address] 01/23/2023 07:41:28 01/25/2023 13:03:16 Type 2 diabetes mellitus with peripheral angiopathy 344488222 E11.52 E11.42 Tresiba 20U qamTrulici ty 1.5 mg SC weeklymetf ormin 1000 mg bidwill monitor Essential hypertension 53137254 I10 amlodipine 10 mg dailylisin opril 10 mg dailywill monitor Chronic os teomyelitis of right foot 3752977149 135049 M86.671 s/p TMAinfecti on thought to have been resolvedwa s to see surgeon for skin graft Hyperlipidemia 91945873 E78.49 simvastati n 40 mg dailyezeti mibe 10 mg dailyfenof ibrate 54 mg dailywill monitor Mixed anxi ety and depressive disorder 648240470 F41.8 escitalopr am 10 mg dailywill monitor Hypothyroidism 89656543 E03.8 levothyrox ine 150 mcg dailywill monitor [id number] Gail Goncalves NP [facility] [address] [address] 01/25/2023 09:30:40 01/29/2023 11:32:13 Chronic osteomyelitis of right foot 1744455895 708663 M86.671 s/p TMAinfecti on thought to have been resolved, wound remains continue with wound team was to see surgeon for skin graft, will check with nsg about this today Will continue with wound team care and to finish doxycyclin e with monitoring for fever, chills, increased warmth, malodor or s/s of infection. monitor labs for weekly for 2 more weekly and trend [id number] [facility] [address] 02/22/2023 08:22:22 02/26/2023 11:18:47 Chronic osteomyelitis of right foot 9619504024 695176 M86.671 s/p TMAinfecti on thought to have been resolved, wound remainscon tinue with wound teamwas to see surgeon for skin graft, nsg to check into thisWill continue with wound team carefinish ed doxycyclin e recently, no abx needed todaymonit oring for fever, chills, increased warmth, malodor or s/s of infection. per wound team on 02/12 note: #3 Surgical wound Foot plantar right distal Instructio n: Cleanse with NS, Allow to dry, apply collagen with silver to entire wound base and cover with DPD wrap entire wound area with Kerlix Qday and prn. [id number] ARTURO PAZ NP [address] [address] 03/19/2023 11:48:52 03/25/2023 10:30:24 Chronic osteomyelitis of right foot 3832257051 080193 M86.671 s/p TMAinfecti on thought to have been resolved, wound remainsrec ently treated with doxycyclin e for concern of cellulitis , now improved.C ontinue local tx. per Wound team hereWill repeat labs x 1 in am - CBC, CRP, BMPWas to see surgeon for skin graft, nsg to check into this, readdresse d today. Appears TMA was done at [facility] by Dr. Dempsey, will refer back for evaluation re: grafting.C ontinue to monitor VS, wound for worsening, s/s infection, pain Renal diso rder due to type 2 diabetes mellitus 821832848 E11.21 Insulin reduced in November due to low BSBS mostly 100s but now with some readings into 200s-300s. Continue:T resiba 20 units dailyTruli city 1.5 mg weeklyGluc ophage 1000 mg bidCheck BS bid q week and prnCheck A1C in am then q 3 months Elevated Bun/Creat. last labs, worse than baseline. ()R epeat CMP in am then q 3 monthsMeds reviewed, not on diuretic, but is on lisinopril 10 daily - may need to reconsider use if labs remain problemati c. May also need to stop glucophage if Creat. remains elevatedCo nsider PVRs to assure bladder emptyingAv oid nephrotoxi csRenal referral if worsen Congestive heart failure 19106268 I50.22 Not on meds at this time.Monit or closely for decompensa tion. Essential hypertension 84872450 I10 BP stableCont inue:lisin opril 10 mg qd - may need to reconsider use due to bump in Bun/Creat. - repeating CMP x 1 in am then q 3 monthsamlo dipine 10 mg qdMonitor BP and labs. Dyslipidemia 202820070 E 78.49 Continue zetia 10 mg daily, simvastati n 40 mg daily, and fenofibrat e 54 mg dailyRecen t LFTs WNR, check q 3 months (included in CMP)Lipid panel x 1 in am, then q 6 months Chronic hyponatremia 503 27408 E87.1 Most recent level 135Remains off HCTZMonito r prn Anemia 546850172 D64.89 Stable/Imp rovedHgb now 10.4Monito r CBC q 6 months and prn Depressive disorder 3548 9007 F33.0 Continue escitalopr am 10 mg daily Autoimmune thyroiditis 67578365 E06.3 Continue levothyrox ine 150 mg dialyTSH x 1 in am then yearly and prn Peripheral neuropathy due to type 2 diabetes mellitus 1362182390 107 E11.42 continue gabapentin 100 mg tidmonitor pain, adjust dose prn [id number] [facility] [address] 04/03/2023 13:24:30 04/08/2023 11:04:52 Chronic osteomyelitis of right foot 9672544339 090226 M86.671 s/p TMAinfecti on thought to have been resolved, wound remains and recently treated with doxycyclin e for concern of cellulitis , now improved.C ontinue local tx. per Wound team here and dressings per wound team with hydrofera blue and gauzeWas to see surgeon for skin graft.Appe ars TMA was done at [facility] by Dr. Dempsey, will refer back for evaluation re: grafting. [facility] to [facility] for him.Contin ue to monitor VS, wound for worsening, s/s infection, pain [id number] Francoise Foster MD [facility] [address] 05/03/2023 08:11:02 05/07/2023 09:19:00 Diabetic foot ulcer 758913814 L97.518 s/p TMA:per wound care teamPT/OT Type 2 vanda betes mellitus with peripheral angiopathy 140965940 E11.52 E11.42 Tresiba 20U qamTrulici ty 1.5 mg SC weeklymetf ormin 1000 mg bidwill monitor Chronic pain 65650916 G8 9.29 gabapentin 100 mg tidAPAP 650 mg q4h prnwill monitorPT/ OT Essential hypertension 55985660 I10 amlodipine 10 mg dailylisin opril 10 mg dailywill monitor Hyperlipidemia 42198495 E78.49 simvastati n 40 mg dailyezeti mibe 10 mg dailyfenof ibrate 54 mg dailywill monitor Hypothyroidism 26768944 E03.8 levothyrox ine 150 mcg dailywill monitor Mixed anxi ety and depressive disorder 850061200 F41.8 escitalopr am 10 mg dailywill monitor [id number] Gail Goncalves NP [facility] [address] 06/07/2023 14:10:30 06/11/2023 14:50:16 Diabetic foot ulcer 877653153 L97.518 s/p TMA:per wound care team dressingss urgical appt with Dr. Dempsey on at 9:30am for graft06/07 start doxycyclin e 100 mg po bid x 14 days with probiotic x 17 days06/07 cbc and bmp on saturdayPT/O T prn Type 2 vanda betes mellitus with peripheral angiopathy 778253477 E11.52 E11.42 BS increased recently ? possibily related to diet and infection1 08/08/22 increase Trulicity from 1.5 mg to 3 mg SC [id number]/1 11/13 start lispro ssi per per MintzcontT resiba 20U qammetform in 1000 mg bidtitrate insulin as neededdiet ician to find alternativ e snacks with notable wgt gainwill monitor Xerosis du e to atopic dermatitis 608744089 L85.3 notable dry scaly left foot with dm hxammonium lactate 12 % cream topically bid x 2 weeks, then dailymonit or [id number] Gail Goncalves NP [facility] [address] 06/10/2023 15:56:28 06/12/2023 08:04:18 Diabetic foot ulcer 286721942 L97.518 s/p TMA:per wound care team dressingss urgical appt with Dr. 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 possibily related to diet and infection- coming down with SSI and increase and abxbut still 300-400s 06/07/23 increase Trulicity from 1.5 mg to 3 mg SC [id number]/1 11/13 start lispro ssi per per MintzcontT resiba 20U qammetform in 1000 mg bid 3 professor of counseling to find alternativ e snacks with notable wgt gain06/10 cont above, likely glucose increased due to infection and should resolve, increased trucility to start this week and will trend and titrate insulin as neededwill monitor Contusion of left great toe 4612454630 0214346 S90.112A has left hallux with ecchymotic areano infection noted, does have overgrown toenailon doxy already as above Subungual hematoma of middle finger of right hand 0219192061 6580304 S60.131A does not appear painful or infectedno t need to drain today or xraywash and wrap with a bandaid daily and prnalready on doxy as abovemonit or [id number] ARTURO PAZ [facility] [address] [place] [address] 07/16/2023 14:04:20 07/19/2023 11:14:13 Acute cholecystitis 11109331 K81.0 Not much info provided about this from [facility], but had a lap choleAppar ently tolerated wellRecove ring without concern except for episode of vomiting x 1 today, unclear etiology. Staff is reporting he is eating a lot since his return as they didn't feed him in the hospital.. ..F/U with surgeon post op. Diabetic foot ulcer 3710 62568 L97.518 chronic woundElect kostas skin graft attempted at [facility], did not take.Given IV abx. due to odor with wound.Tx. now alginate Ag, 4x4, kerlix q other day.Monito r VS, labs, wound, CSMFollow up with Dr. Dempsey 07/23CBC, BMP q saturday x 3 Type 2 vanda betes mellitus with peripheral angiopathy 426623430 E11.52 E11.42 Fair controlNon compliant with dietContin ue:Trulici ty 3 mg SC weeklylisp ro ssi per per MintzTresi ba 20U qammetform in 1000 mg bid But now with big jump in Creat, unsure if anything to do with increase in trulicty dose?Plan -repeat labs BMP thursPVR x 3 to assure bladder emptyingin take reported as good.May need to stop glucophage if creat stays highMay also need to consider changing trulicty Renal diso rder due to type 2 diabetes mellitus 442123679 E11.21 Returned from [facility] with Creat 3.06 - much higher than baseline, unclear as to whyTaking adequate fluids.Vito n -Get labs from [facility] for comparison Check PVRs, assure bladder emptying, cath if >300 ml and update 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 ? if had carmona in hosp.Repea t BMP thursOn lisinopril , metformin, trulicity - may need to hold/stopR enal consult if labs don't improveAvo id nephrotoxi csRenal referral if worsen [id number] Gail Goncalves NP [facility] [address] [address] 07/17/2023 14:35:02 07/19/2023 11:36:52 Acute cholecystitis 41158530 K81.0 lap david done while in hosp Apparen tly tolerated well?Recov ering without concern except for episode of vomiting x 1 yest and 1 this am. Tolerated lunch okay.startpep dang 20 mg po bid x 1 weekcontzo carol 4 mg po q 6 hours prn nauseaF/U with surgeon post op. Diabetic foot ulcer 3710 85495 L97.518 chronic woundElect kostas skin graft attempted at [facility] 07/10/23 , did not take.Given IV abx. due to odor with wound.Tx. now alginate Ag, 4x4, kerlix q other day.wound md seen pt today and will follow ordersMoni tor VS, labs, wound, CSMFollow up with Dr. Dempsey 07/23CBC, BMP q saturday x 3 Renal diso rder due to type 2 diabetes mellitus 526903489 E11.21 Returned from [facility] with Creat 3.06 - much higher than baseline, unclear as to why and seems it was high as 1.52 on 07/11/23 per hosp labs. 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 ? if had carmona in hosp.Repea t BMP thurs to monitor crOn lisinopril , metformin, trulicity - may need to hold/stopw ill encourage po fluidsRena l consult if labs don't improveAvo id nephrotoxi csRenal referral if worsen Type 2 vanda betes mellitus with peripheral angiopathy 586855589 E11.52 E11.42 Fair controlNon compliant with dietContin ue:Trulici ty 3 mg SC weeklylisp ro ssi per per MintzTresi ba 20U qammetform in 1000 mg bid But now with big jump in Creat, unsure if anything to do with increase in trulicty dose?Plan -repeat labs BMP thursPVR x 3 to assure bladder emptyingin take reported as good.May need to stop glucophage if creat stays highMay also need to consider changing trulicty Vomiting 449676747 R11.1 0 vomited x 2 , possibly related to david?will also do resp panel although unlikely due to flu in the facilityco ntzofran 4 mg po q 6 hours prn nauseaadd pecid 20 mg po bid x 1 weekincrea se po fluids >2l/ronal itor Loose stool 855232691 R1 9.5 likely related to david?add low fat dietimmodi um 2 tabs po with first loose stool and 1 tab with each loose stool thereaffte r for up to 5 tab/daypus h fluidsbmp tomorrow to assess for dehydratio nmonitor Subungual hematoma of middle finger of right hand 1640149778 9002303 S60.131A resolvedno t need to drain today or xraywash and wrap with a bandaid daily and prnalready on doxy as abovemonit or [id number] ARTURO PAZ NP [place] [address] [place] [address] 07/18/2023 10:47:13 07/23/2023 14:32:46 Acute cholecystitis 15171063 K81.0 GB removed in September 2022 despite most recent d/c paperwork reporting lap david.Has healed well. Diabetic foot ulcer 3710 42445 L97.518 chronic woundElect kostas skin graft attempted at [facility] last week, did not take, back to local mgmt with dressings. Given IV abx. due to odor with wound.Tx. alginate Ag, 4x4, kerlix q other day per hospital paperwork. Seen by Wound MD yesterday, nsg. states he wanted to change the tx. to santyl daily, but no written orders seen.Plan -Keep alginate AG dressing - needs to be changed daily due to large amts. of drainage.I f santyl order found, recommend checking with Dr. Dempsey before startingCo ntinue to monitor VS, labs, wound, CSMFollow up with Dr. Dempsey 07/23CB, [facility] q saturday x 3 Renal diso rder due to type 2 diabetes mellitus 643248678 E11.21 Returned from [facility] with Creat 3.06 - much higher than baseline, unclear as to whyCreat in hosp. 1.86, 1.52Taking adequate fluids, but has vomited twice since his return and now has loose stool.Che jerzy PVRs, so far <100ml per staff.Repe at [facility] today still pendingOn lisinopril , metformin, trulicity - may need to hold/stopR enal consult ELBERT if labs don't improveAvo id nephrotoxi csaddend um - labs back Bun 62, Cr. 7.9 - sending to ER for eval and tx. Type 2 vanda betes mellitus with peripheral angiopathy 627334006 E11.52 E11.42 Fair [id number] in hosp 07/11/23 = 11.3%Non compliant with dietCurren tly on:Trulici ty 3 mg SC weeklylisp ro ssi per per MintzTresi ba 20U qammetform in 1000 mg bid But now with big jump in Creat, unsure if anything to do with increase in trulicty dose?Plan -repeat BMP thurs - pendingMay need to stop glucophage if creat stays highMay also need to consider changing trulicty Diarrhea and vomiting 24 4887387 R19.7 Vomited x 2 since returnNow with diarrhea.D id receive IV abx, in hosp.On pepcid and probiotic bid, prn imodium and zofran also added.Plan -Check for c-diffVira l panel and BMP pendingMai ntain fluids Anemia 210238451 D64.89 StableHgb 9Monitor CBC q 6 months and prn Autoimmune thyroiditis 44411449 E06.3 Continue levothyrox ine 150 mg dialyCheck TSH, FT4 x 1 saturday Chronic hyponatremia 503 65110 E87.1 Most recent level 134Remains off HCTZMonito r prn Congestive heart failure 87790409 I50.22 Not on diuretics at this time.Maint ain meds for BP controlMon itor closely for decompensa tion. Depressive disorder 3548 9007 F33.0 Continue escitalopr am 10 mg dailyMonit or mood, behaviors Dyslipidemia 046584501 E 78.49 Continue zetia 10 mg daily, simvastati n 40 mg daily, and fenofibrat e 54 mg dailyRecen t LFTs WNR, monitorLip id panel 02/2023 perfect. Consider recheck in August Essential hypertension 72945688 I10 BP stableCont inue:lisin opril 10 mg qd - may need to reconsider use due to bump in Bun/Creat. - repeating BMP todayamlod ipine 10 mg qdMonitor BP and labs. Vitamin D deficiency 347 28344 E56.8 Continue po supplement D level prn Peripheral neuropathy due to type 2 diabetes mellitus 7125631873 107 E11.42 continue gabapentin 100 mg tidmonitor pain, adjust dose prn [id number] ARTURO PAZ NP [place] [address] [place] [address] 07/25/2023 10:13:04 08/01/2023 13:22:09 Diabetic foot ulcer 535500082 L97.518 chronic woundElect kostas skin graft attempted at [facility] a few weeks ago, did not take, back to local mgmt with dressings. Given IV abx. at that tie due to odor with wound.Tx. per d/c paperwork = collagen silver covered by gauze and kerlix q od.Update Dr. Dempsey with concerns.A lso followed by Wound MD here.Tonio nue to monitor VS, labs, wound, CSMFollow up with Dr. Dempsey 07/23, was in hosp., unsure if was seen, will have nurse call office to check if another follow up appt. needed. Diarrhea and vomiting 24 6927250 R19.7 Resolved.M onitor Renal diso rder due to type 2 diabetes mellitus 688928027 E11.21 Acute on ChronicSen t to [facility] 07/19 with Creat. of 7.9.Resusi tated with fluids, required bicarb drip to correct acidosis.C reat. 1.43 upon d/c from hosp., 1.66 today. Episodes of vomiting ad diarrhea most likely contribute d to ARF. Denies any GI issues at this time, eating and drinking well. Plan -BMP q saturday for nowEncoura ge fluidsMoni tor for N/V/DFollo w up [facility] Renal Dr. Alonzo as needed. On lisinopril , metformin, trulicity - may need to hold/stop if/when kidney function worsensAvo id nephrotoxi cs Type 2 vanda betes mellitus with peripheral angiopathy 500472627 E11.52 E11.42 Fair [id number] in hosp 07/11/23 = 11.3%Non compliant with dietCurren tly on:Trulici ty 3 mg SC weeklylisp ro ssi per per MintzTresi ba 20U qammetform in 1000 mg bidContinu e to monitor BS, A1C, po intake/ t compliance Adjust tx. prn Acute cholecystitis 1067 4494 K81.0 GB removed in September 2022 despite most recent d/c paperwork reporting lap david.Has healed well. Anemia 359294431 D64.89 StableHgb 9Monitor CBC weekly for now due to Osteo, otherwise q 6 months and prn Autoimmune thyroiditis 80384825 E06.3 Continue levothyrox ine 150 mg dialyCheck TSH, FT4 x 1 saturday Chronic hyponatremia 503 84380 E87.1 Most recent level 137Remains off HCTZMonito r prn Congestive heart failure 95183413 I50.22 Not on diuretics at this time.Maint ain meds for BP controlMon itor closely for decompensa tion. Depressive disorder 3548 9007 F33.0 Continue escitalopr am 10 mg dailyMonit or mood, behaviors Dyslipidemia 407973631 E 78.49 Continue zetia 10 mg daily, simvastati n 40 mg daily, and fenofibrat e 54 mg dailyRecen t LFTs WNR, monitorLip id panel 02/2023 perfect. Consider recheck in August Essential hypertension 55840525 I10 BP stableCont inue:lisin opril 10 mg qdamlodipi ne 10 mg qdMonitor BP and labs. Vitamin D deficiency 347 55069 E56.8 Continue po supplement D level prn Peripheral neuropathy due to type 2 diabetes mellitus 5196017166 107 E11.42 continue gabapentin 100 mg tidmonitor pain, adjust dose prn Impaired cognition 10139 6002 R41.89 Concern from staff if able to make hs own medical decisions due to H/O developmen timo delay.Per nsg., scored 8 on BIMS on 07/18/23SLU MS completed today 07/25/23, score 17/30, c/w dementia.A t this time, would recommend invoking Mehul's HCP because I feel he lacks the capacity to comprehend complex medical issues regarding his health and lacks the insight to make informed medical decisions at this time. Acute oste omyelitis of right foot [id number] 215789 M86.171 New area of bony erosion of anteromedi al navicular bone at the naviculocu neiform joint concerning for osteo on recent CT in hosp.Seen by IDOn IV Daptomycin 500 mg daily x 6 wks, last dose 37Already on probiotic bidCBCD, BMP, ESR, CRP, CK q saturdayMoni tor VSUpdate ID with concerns [id number] Gail Goncalves, ODALYS [address] [place] [address] 08/01/2023 12:43:51 08/05/2023 15:31:17 Renal disorder due to type 2 diabetes mellitus 468077148 E11.21 Acute on ChronicSen t to [facility] 07[place] with Creat. of 7.9.Resusi tated with fluids, required bicarb drip to correct acidosis which returned to Creat. 1.43 upon d/c from hosp., 1.58 today. Plan -BMP q saturday for nowEncoura ge fluidsMoni tor for N/V/DFollo w up [facility] Renal Dr. Alonzo as needed. note: On lisinopril , metformin, trulicity - may need to hold/stop if/when kidney function worsensAvo id nephrotoxi csmonitor closely Acute oste omyelitis of right foot [id number] 291137 M86.171 New area of bony erosion of anteromedi al navicular bone at the naviculocu neiform joint concerning for osteo on recent CT in hosp.Seen by IDcontIV Daptomycin 500 mg daily x 6 wks, last dose lready on probiotic bidCBCD, BMP, ESR, CRP, CK q tor VSUpdate ID with concerns Diabetic foot ulcer 3710 23586 L97.518 chronic woundElect kostas skin graft attempted at [facility] a few weeks ago, did not take, back to local mgmt with dressings. Also followed by Wound MD here.seen by administration specialist on 07/31 and no changes. Tx. per d/c paperwork = collagen silver covered by gauze and kerlix q od. Update Dr. Dempsey with concerns.s till waiting progress note from fu visit this week, nsg working on this from 07/23 Type 2 vanda betes mellitus with peripheral angiopathy 257687706 E11.52 E11.42 Fair [id number] in hosp 07/11/23 = 11.3%Non compliant with dietCurren tly on:Trulici ty 3 mg SC weeklylisp ro ssi per per MintzTresi ba 20U qammetform in 1000 mg bidContinu e to monitor BS, A1C, po intake/ t compliance Adjust tx. prn Anemia 008409711 D64.89 StableHgb 9Monitor CBC weekly for now due to Osteo, otherwise q 6 months and prn Autoimmune thyroiditis 54890915 E06.3 ContinueTS H level 0.242/8dec rease levothyrox ine 150 mg daily to 137 mcg dailyreche ck tsh in 8 weeksmonit or Depressive disorder 3548 9007 F33.0 Continuees citalopram 10 mg dailyMonit or mood, behaviors Peripheral neuropathy due to type 2 diabetes mellitus 5370934824 107 E11.42 continuega bapentin 100 mg tidmonitor painadjust dose prnnote renal func with gabapentin Dizziness 018515324 R42 reports occ dizziness with motion onlywill montiorant ontio with notify nsg if this happenswil l consider meclizine, but hold off with recent renal changes and ? blood sugar relatednsg to check BS if this happens and get vitals [id number] Gail Goncalves NP [facility] [address] [address] 08/09/2023 13:36:33 08/12/2023 17:18:55 Renal disorder due to type 2 diabetes mellitus 013027167 E11.21 Acute on ChronicBS improvingS ent to [facility] 07/19 with Creat. of 7.9.resusc itated with fluids, required bicarb drip to correct acidosis which returned to Creat. 1.43 upon d/c from hosp., 1.58 now stable 1.47 Plan -BMP q saturday for nowEncoura ge fluidsMoni tor for N/V/DFollo w up [facility] Renal Dr. Alonzo as needed. note: On lisinopril , metformin, trulicity - may need to hold/stop if/when kidney function worsensAvo id nephrotoxi csmonitor closely Acute oste omyelitis of right foot [id number] 448723 M86.171 area of bony erosion of anteromedi al navicular bone at the naviculocu neiform joint concerning for osteo on recent in hosp.Seen by IDcontIV Daptomycin 500 mg daily x 6 wks, last dose 3/7Already on probiotic bidCBCD, BMP, ESR, CRP, CK q saturdayMoni tor VSUpdate ID with concerns Diabetic foot ulcer 3710 42752 L97.518 chronic woundElect kostas skin graft attempted at [facility] a few weeks ago, did not take, back to local mgmt with dressings. Also followed by Wound MD here.seen by administration specialist on 08/07, debrided, and no changes.Tx . per d/c paperwork = collagen silver covered by gauze and kerlix q od.will cont with wound rec which are the same Update Dr. Dempsey with concerns.s till waiting progress note from fu visit this week, nsg working on this from 07/23 Type 2 vanda betes mellitus with peripheral angiopathy 691335696 E11.52 E11.42 Fair [id number] in hosp 07/11/23 = 11.3%Non compliant with dietCurren tly on:Trulici ty 3 mg SC weeklylisp ro ssi per per MintzTresi ba 20U qammetform in 1000 mg bidContinu e to monitor BS, A1C, po intake/ t compliance Adjust tx. prn Anemia 184092805 D64.89 Stablereso lvedHgb 10Monitor CBC weekly for now due to Osteo, otherwise q 6 months and prn Depressive disorder 3548 9007 F33.0 Continuees citalopram 10 mg dailyMonit or mood, behaviors Peripheral neuropathy due to type 2 diabetes mellitus 1242956621 107 E11.42 continuega bapentin 100 mg tidmonitor painadjust dose prnnote renal func with gabapentin Dizziness 793834420 R42 no dizziness today, resolvedre ports occ dizziness with motion onlywill montiorant ontio with notify nsg if this happenswil l consider meclizine, but hold off with recent renal changes and ? blood sugar relatednsg to check BS if this happens and get vitals [id number] Gail Goncalves NP [address] [address] 08/14/2023 14:03:14 08/15/2023 19:44:02 Acute osteomyelitis of right foot 9383993155 372379 M86.171 area of bony erosion of anteromedi al navicular bone at the naviculocu neiform joint concerning for osteo on recent in hosp.Seen by IDcontIV Daptomycin 500 mg daily x 6 wks, last dose 3/7Already on probiotic bidCBCD, BMP, ESR, CRP, CK q saturdayMoni tor VSUpdate ID with concerns Renal diso rder due to type 2 diabetes mellitus 889888394 E11.21 Acute on ChronicBS improvingS ent to [facility] 07/19 with Creat. of 7.9.resusc itated with fluids, required bicarb drip to correct acidosis which returned to Creat. 1.43 upon d/c from hosp., 1.58, stable 1.42 Plan -BMP q saturday for nowEncoura ge fluidsMoni tor for N/V/DFollo w up [facility] Renal Dr. Alonzo as needed. note: On lisinopril , metformin, trulicity - may need to hold/stop if/when kidney function worsensAvo id nephrotoxi csmonitor closely Diabetic foot ulcer 3710 24206 L97.518 chronic woundElect kostas skin graft attempted at [facility] a several weeks ago, did not take, back to local mgmt with dressings, iv abx.follow ed by Wound MD here.seen by administration specialist and debrided weeklyTx. per d/c paperwork = collagen silver covered by gauze and kerlix q od.will cont with wound rec which are the same Update Dr. Dempsey with concerns.s till waiting progress note from fu visit this week, nsg working on this from 07/23 Type 2 vanda betes mellitus with peripheral angiopathy 652256161 E11.52 E11.42 Fair [id number] in hosp 07/11/23 = 11.3%Non compliant with dietCurren tly on:Trulici ty 3 mg SC weeklylisp ro ssi per per MintzTresi ba 20U qammetform in 1000 mg bidContinu e to monitor BS, A1C, po intake/ t compliance Adjust tx. prn Depressive disorder 3548 9007 F33.0 Continuees citalopram 10 mg dailyMonit or mood, behaviors Peripheral neuropathy due to type 2 diabetes mellitus 5384121461 107 E11.42 continuega bapentin 100 mg tidmonitor painadjust dose prnnote renal func with gabapentin [id number] Gail Goncalves NP [address] [address] 08/19/2023 11:17:09 08/21/2023 15:20:44 Acute osteomyelitis of right foot 9193797140 027285 M86.171 area of bony erosion of anteromedi al navicular bone at the naviculocu neiform joint concerning for osteo on recent in hosp.Seen by IDcontIV Daptomycin 500 mg daily x 6 wks, last dose 08/28probiot ic bidCBCD, BMP, ESR, CRP, CK q saturday, trendingMo nitor VS, stableUpda te ID with concerns Renal diso rder due to type 2 diabetes mellitus 483260097 E11.21 Acute on ChronicBS improvingn ote: Sent to [facility] 07/19 with Creat. of 7.9.resusc itated with fluids, required bicarb drip to correct acidosis which returned to Creat. 1.43 upon d/c from hosp., 1.58, stable 1.42note: On lisinopril , metformin, trulicity - may need to hold/stop if/when kidney function worsensPla nBMP q saturday for now, not back yet pendingEnc ourage fluidsMoni tor for N/V/DFollo w up [facility] Renal Dr. Alonzo as needed.Alex id nephrotoxi csmonitor closely Diabetic foot ulcer 3710 50894 L97.518 chronic woundElect kostas skin graft attempted at [facility] a several weeks ago, did not take, back to local mgmt with dressings, iv abx.follow ed by Wound MD here.seen by administration specialist and debrided weekly with dsdUpdate Dr. Dempsey with concerns.* still waiting progress note from fu visit this week, nsg working on this from 07/23 Type 2 vanda betes mellitus with peripheral angiopathy 468735359 E11.52 E11.42 Per nsg, multiple snacks and candies brought in by family and BS higher this [id number] in hosp 07/11/23 = 11.3%Non compliant with diet:tiffani fairbanks following and pt counseled on diet 08/19 increase Trulicity 3 mg SC weekly to 4.5 mg sc weekly (max dose)contl ispro ssiTresiba 20U qammetform in 1000 mg bid(max dose)Tonio nue to monitor BS, A1C, po intake/ t compliance gabapentin 100 mg po tidmonitor for painAdjust tx. 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 589583085 M21.6X9 notable plantar flex foot and increased swellingco ntPT/OT treat and evalwill order right dorsiflexi on splint todaymonit or for improvemen t Congestive heart failure 14328861 I50.22 lungs clear and bp stable08/19 notable for increased lower leg edemastart torsemide 20 mg po daily x 3 daily and reassessmo nitor bmp weekly [id number] Gail Goncalves NP [address] [address] 08/22/2023 13:01:07 08/27/2023 13:23:50 Congestive heart failure 60907007 I50.22 lungs clear and bp stable08/19 notable for increased lower leg edema started on torsemide 20 mg po daily x 3 daily lower ext taught, will reassess next weekmonito r bmp weekly Acute oste omyelitis of right foot 2116533389 808205 M86.171 area of bony erosion of anteromedi al navicular bone at the naviculocu neiform joint concerning for osteo on recent in hosp.Seen by ID in hospcontIV Daptomycin 500 mg daily x 6 wks, last dose 08/28probiot ic bidCBCD, BMP, ESR, CRP, CK q saturday, trendingMo nitor VS, stableUpda te ID with concerns wbc count slightly up on 08/19 , will trend labs next week Type 2 vanda betes mellitus with peripheral angiopathy 150885882 E11.52 E11.42 Per nsg, multiple snacks and candies brought in by family and BS higher this [id number] in hosp 07/11/23 = 11.3%Non compliant with diet:tiffani fairbanks following and pt counseled on diet 08/21 had isolated high BS of 504 and other BS controlled , diet teaching provided and professor of counseling following, will wait for increased dose of trulicity to start and reevalcont 08/19 increase Trulicity 3 mg SC weekly to 4.5 mg sc weekly (max dose)contl ispro ssiTresiba 20U qammetform in 1000 mg bid(max dose)Tonio nue to monitor BS, A1C, po intake/ t compliance gabapentin 100 mg po tidmonitor for painAdjust tx. 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 of 7.9.resusc itated with fluids, required bicarb drip to correct acidosis which returned to Creat. 1.43 upon d/c from hosp note: On lisinopril , metformin, trulicity - may need to hold/stop if/when kidney function worsensPla nBMP q saturday for now, not back yet pendingEnc ourage fluidsMoni tor for N/V/DFollo w up [facility] Renal Dr. Alonzo as needed.Alex id nephrotoxi csmonitor closely Diabetic foot ulcer 3710 90661 L97.518 chronic woundElect kostas skin graft attempted at [facility] several weeks ago, did not take, back to local mgmt with dressings, iv abx.follow ed by Wound MD here. with rec 08/21:Timothy l, and super absorbent, DCD, QD and prn.seen by administration specialist and debrided weekly with dsdUpdate Dr. Dempsey with concerns.* still waiting progress note from fu visit this week, nsg working on this from 07/23 Depressive disorder 2078 9007 F33.0 Continuees citalopram 10 mg dailyMonit or mood, behaviors [id number] Gail Goncalves NP [address] [address] 08/26/2023 09:23:56 08/28/2023 14:50:59 Congestive heart failure 61683137 I50.22 lungs clear and bp stable with notable lower ext edema08/19 notable for increased lower leg edema started on torsemide 20 mg po daily x 3 daily lower ext taught, will reassess next week/ start torsemide 20 mg po daily x 7 days then 10 mg po dailymonit or bmp weekly Acute oste omyelitis of right foot 1278168722 111547 M86.171 area of bony erosion of anteromedi al navicular bone at the naviculocu neiform joint concerning for osteo on recent in hosp.Seen by ID in hospcontIV Daptomycin 500 mg daily x 6 wks, last dose 08/28probiot ic bidCBCD, BMP, ESR, CRP, CK q saturday, trendingMo nitor VS, stableUpda te ID with concerns wbc count slightly up on 08/19 , will trend labs- pending Type 2 vanda betes mellitus with peripheral angiopathy 449253246 E11.52 E11.42 Per nsg, multiple snacks and candies brought in by family and BS higher this [id number] in hosp 07/11/23 = 11.3%Non compliant with diet:dieti tiki following and pt counseled on dietBS much more controlled recently contTrulic ity 4.5 mg sc weekly (max dose)lispr o ssiTresiba 20U qammetform in 1000 mg bid(max dose)Tonio nue to monitor BS, A1C, po intake/ t compliance gabapentin 100 mg po tidmonitor for painAdjust tx. 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 of 7.9.resusc itated with fluids, required bicarb drip to correct acidosis which returned to Creat. 1.43 upon d/c from hosp. On lisinopril , metformin, trulicity - may need to hold/stop if/when kidney function worsensPla nBMP q saturday for now, not back yet pendingEnc ourage fluidsMoni tor for N/V/DFollo w up [facility] Renal Dr. Alonzo as needed.Alex id nephrotoxi csmonitor closely Diabetic foot ulcer 3710 73084 L97.518 chronic woundElect kostas skin graft attempted at [facility] several weeks ago, did not take, back to local mgmt with dressings, iv abx.follow ed by Wound MD here. last with rec 08/21:Timothy l, and super absorbent, DCD, QD and prn.seen by administration specialist and debrided weekly with dsdUpdate Dr. Dempsey with concerns.* still waiting progress note from fu visit this week, nsg working on this from 07/23 Depressive disorder 3548 9007 F33.0 Continuees citalopram 10 mg dailyMonit or mood, behaviors Edema of l ower extremity 185442479 R60.0 pt has bilateral lower ext edema3/4 start torsemide 20 mg po daily x 7 days, then 10 mg po dailymonit or bmp weekly with hx of renal toxicity [id number] [facility] [address] 09/04/2023 13:36:49 09/09/2023 10:01:32 Edema of lower extremity 792362654 R60.0 pt has bilateral lower ext edema, much improved from increased torsemidet orsemide 10 mg po daily09/03 dc order to encourage >2 liter/day of fluidsmoni tor bmp weekly with hx of renal toxicity Congestive heart failure 72814926 I50.22 lungs clear and bp stable with notable lower ext edematorse mide 10 mg po dailymonit or bmp weekly Acute oste omyelitis of right foot 9112575526 802494 M86.171 area of bony erosion of anteromedi al navicular bone at the naviculocu neiform joint concerning for osteo on recent in hosp.Seen by ID in hospcontIV Daptomycin 500 mg daily x 6 wks, last dose 08/28-now completed pull picc line today and related orders09/03 dc probiotic bidCBCD, BMP, ESR, CRP, CK q saturday, trendingMo nitor VS, stableUpda te ID with concerns Type 2 vanda betes mellitus with peripheral angiopathy 356518096 E11.52 E11.42 BS much better later and snacks decreasedA 1C in hosp 07/11/23 = 11.3%Non compliant with diet:dieti tiki following and pt counseled on dietBS much more controlled recently contTrulic ity 4.5 mg sc weekly (max dose)lispr o ssiTresiba 20U qammetform in 1000 mg bid(max dose)Tonio nue to monitor BS, A1C, po intake/ t compliance gabapentin 100 mg po tidmonitor for painAdjust tx. 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 of 7.9.resusc itated with fluids, required bicarb drip to correct acidosis which returned to Creat. 1.43 upon d/c from hosp. On lisinopril , metformin, trulicity - may need to hold/stop if/when kidney function worsensPla nBMP q saturdayEnco urage fluidsMoni tor for N/V/DFollo w up [facility] Renal Dr. Alonzo as needed.Alex id nephrotoxi csmonitor closely Diabetic foot ulcer 3710 50450 L97.518 chronic woundElect kosats skin graft attempted at [facility] several weeks ago, did not take, back to local mgmt with dressings, iv abx.follow ed by Wound MD here. last with rec Collagen with silver dressing, ABD, Kerlix, QD and prn. Surgical follow up and orthotic evaluation pendingsee n by administration specialist and debrided weekly with Sadaate Dr. Dempsey with concerns. appt 09/25*still waiting progress note from fu visit this week, nsg working on this from 07/23 [id number] Francoise Foster MD [address] [address] 09/06/2023 06:59:42 09/10/2023 14:18:29 Type 2 diabetes mellitus with peripheral angiopathy 003246603 E11.52 E11.42 Tresiba 20U qamTrulici ty 4.5 mg SC weeklymetf ormin 1000 mg bidLispro per sliding scalewill monitor Essential hypertension 92885073 I10 amlodipine 10 mg dailylisin opril 10 mg dailytorse mide 10 mg dailywill monitor Hypothyroidism 38756587 E03.8 levothyrox ine 137 mcg dailywill monitor Chronic pain 30487158 G8 9.29 gabapentin 100 mg tidAPAP 650 mg q4h prnwill monitorPT/ OT Mixed anxi ety and depressive disorder 027925521 F41.8 escitalopr am 10 mg dailywill monitor Hyperlipidemia 87533916 E78.49 simvastati n 40 mg dailyezeti mibe 10 mg dailyfenof ibrate 54 mg dailywill monitor [id number] Gail Goncalves NP [address] [address] 09/23/2023 17:27:07 09/26/2023 10:45:00 Type 2 diabetes mellitus with peripheral angiopathy 211252193 E11.52 E11.42 contTresib a 20U qamTrulici ty 4.5 mg SC weeklymetf ormin 1000 mg bidLispro per sliding 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 if no improvemen t with jj Essential hypertension 18916241 I10 amlodipine 10 mg dailylisin opril 10 mg daily09/22 dc torsemide 10 mg dailywill monitor Chronic pain 59759632 G8 9.29 gabapentin 100 mg tidAPAP 650 mg q4h prnwill monitorPT/ OT Congestive heart failure 46616528 I50.22 lungs clear and bp stable with notable lower ext edema now better but JJ noteddc torsemide 10 mg po dailymonit or bmp weekly Renal diso rder due to type 2 diabetes mellitus 258597629 E11.21 Acute on Chronic, renal func at baseline lately, will cont to trend on abx now with increased bun/cr BS improving overall, 200's plan:09/22 DC torsemide 10 mg po dailybmp on 09/25 to look for improvemen t and encourage fluidscont BMP q saturdayEnco urage fluidsMoni tor for N/V/DFollo w up [facility] Renal Dr. Alonzo as needed.Alex id nephrotoxi csmonitor closely [id number] Gail Goncalves NP [facility] [address] [address] 09/26/2023 14:19:12 09/30/2023 12:08:19 Renal disorder due to type 2 diabetes mellitus 750765295 E11.21 Acute on Chronic, renal func at baseline lately, will cont to trend on abx now with increased bun/cr BS improving overall, 200's plan:09/22 DC torsemide 10 mg po dailybmp on 09/25 to look for improvemen t and encourage fluids09/25 labs not resulted, reorder labs cont BMP q saturdayEnco urage fluidsMoni tor for N/V/DFollo w up [facility] Renal Dr. Alonzo as needed.Alex id nephrotoxi csmonitor closely Chronic pain 01132729 G8 9.29 gabapentin 100 mg tidAPAP 650 mg q4h prnwill monitorPT/ OT Congestive heart failure 18590907 I50.22 lungs clear and bp stable with notable lower ext edema now better but JJ noteddc torsemide 10 mg po dailymonit or bmp weekly Abnormalit y of nail of toe 407284077 L60.8 2nd left toe nail fell offunclear of how it happenedno s/s of infectionn s wash, pat dry, bacitracin , and bandaid daily [id number] Gail Goncalves NP [facility] [address] [phone] 09/30/2023 10:59:39 10/09/2023 08:15:19 Renal disorder due to type 2 diabetes mellitus 121307594 E11.21 Acute on Chronic, renal func at baseline lately, will cont to trend with increased bun/cr BS improving overall, 200's plan:09/22 DC torsemide 10 mg po dailybmp on 09/25 to look for improvemen t and encourage fluids09/25 labs did not have cbc bmp resulted only tsh wnl4/8 show increased bun 43/cr 2.144/8 dc gabapentin 100 mg tidcont BMP q mondayEnco urage fluidsMoni tor for N/V/DFollo w up [facility] Renal Dr. Alonzo as needed.Alex id nephrotoxi csmonitor closely Chronic pain 08636182 G8 9.29 pt denies any pain09/29 dc gabapentin 100 mg tidAPAP 650 mg q4h prnwill monitorPT/ OT Congestive heart failure 08386822 I50.22 has some edema to extremitie s 1+recently dc torsemide 10 mg po dailymonit or bmp weekly and for resp sys, increased edema, change in wgt Diabetic foot ulcer 3710 19303 L97.518 chronic woundElect kostas skin graft attempted at [facility] several weeks ago, did not take, completed iv abx.follow ed by Wound MD here. last with rec Collagen with silver dressing, ABD, Kerlix, QD and prn. Surgical follow up and orthotic evaluation pendingsee n by administration specialist and debrided weekly with dsd does not appear infected today, slow healingcon t montioring labs closely with crp and esr for possible infection Update Dr. Dempsey with concerns. appt 09/25 cx, need to fu with new appt on 10/16 at 2:30pm [id number] LAXMI SANTA, CAROLYN [address] [address] 10/31/2023 13:40:32 11/05/2023 08:58:07 Renal disorder due to type 2 diabetes mellitus 728292940 E11.21 Improving. BS improving overall, 100-200' lab result revealed bmp improved, bun 28, Cr. 1.48 from bun 43/cr 2.14 on 09/29.Pt refused lab on 10/27.Encour age fluids.Mon itor for N/V/DFollo w up [facility] Renal Dr. Alonzo as needed.Alex id nephrotoxi csmonitor closely Chronic pain 83552382 G8 9.29 pt denies any painAPAP 650 mg q4h prnwill monitorPT/ OT, PRN Congestive heart failure 05251125 I50.22 has some edema to extremitie s 1+ increased edema, change in wgtMonitor VS, wt, LS and O2 sat and decompensa tion.labs as needed. Diabetic foot ulcer 3710 87186 L97.518 chronic woundPer wound care note, 10/24/23, Surgical wound improved.E lective skin graft attempted at [facility] several weeks ago, did not take, completed iv abx.He is followed by Wound MD here. last with rec Collagen with silver dressing, ABD, Kerlix, QD and prn.seen by administration specialist and debrided weekly. during day for edema control and stacy wrap.cont montioring labs closely with crp and esr for possible infection Type 2 vanda betes mellitus with peripheral angiopathy 642913021 E11.52 E11.42 Tresiba 20U qamTrulici ty 4.5 mg SC weeklymetf ormin 1000 mg bidLispro per sliding scalewill monitor Essential hypertension 27653690 I10 amlodipine 10 mg dailylisin opril 10 mg dailyVSS. SBP 120-130s, will monitor Hypothyroidism 41171189 E03.8 levothyrox ine 137 mcg dailyTSH was WNL on 09/26/23.justyn l monitor Mixed anxi ety and depressive disorder 493365010 F41.8 escitalopr am 10 mg dailywill monitor Hyperlipidemia 85426028 E78.49 simvastati n 40 mg dailyezeti mibe 10 mg dailyfenof ibrate 54 mg dailywill monitor Contusion of left great toe [id number] 8770356 S90.212A Clean the site with NS, and cover with bandage q daily.Plac ed an order for wound care evaluation , and refer to podiatry. [id number] Gail Goncalves NP [address] [address] 11/29/2023 10:37:01 12/02/2023 20:31:26 Chronic pain 23806726 G89.29 pt denies any painAPAP 650 mg q4h prnwill monitorPT/ OT, PRN Diabetic foot ulcer 3710 43904 L97.518 chronic wound, with noncomplia nce to diet and fluid restrictio n and labs in pastwound seem to be stagnant in general without obvious infectionw ound seem to be stagnant in general without obvious infectionE lective skin graft attempted at [facility] for the second time, did not take, completed iv abx.He is followed by Wound MD here. will agree currentlyP er wound team who follows here weekly note on 11/26/23: Wound is 6 x 6 x 0.2. Debridemen t will be performed weekly as needed to remove devitalize d tissue, decrease risk of infection, and expose viable tissue to promote wound healing. Foot plantar right distal dressing:: Gently clean, pat dry; apply silver alginate to wound bed and medihoney to eschar; cover with ABD pad; wrap with kerlix and STACY wrap, change daily and prn. Apply house moisturize r to lower legs, telfa to scabbed area.cbc c diff, cmp, esr, crp weekly x 6 weeks to monitor open wound Type 2 vanda betes mellitus with peripheral angiopathy 795866888 E11.52 E11.42 Tresiba 20U qamTrulici ty 4.5 mg SC weeklymetf ormin 1000 mg bidLispro per sliding scalewill monitor Peripheral edema 8831526 00 R60.9 peripheral edemastart bumex 1 mg po daily as the torsemide and lasix have been difficult on his JJ and raised labs notably in past.monit or labs weekly as above [id number] Gail Goncalves NP [address] [address] 12/05/2023 10:42:08 12/10/2023 10:09:20 Chronic pain 70477895 G89.29 pt denies any painAPAP 650 mg q4h prnwill monitorPT/ OT, PRN Diabetic foot ulcer 3710 22252 L97.518 chronic wound, with noncomplia nce to diet and fluid restrictio n and labs in pastwound seem to be stagnant in general without obvious infectionE lective skin graft attempted at [facility] for the second time, did not take, completed iv abx.He is followed by Wound MD here. will agree currently as ordered in MARcbc c diff, cmp, esr, crp weekly x 5 weeks to monitor open wound Type 2 vanda betes mellitus with peripheral angiopathy 226342940 E11.52 E11.42 blood sugars improved and 107-211 latelyTres iba 20U qamTrulici ty 4.5 mg SC weeklymetf ormin 1000 mg bidLispro per sliding scalewill monitor Peripheral edema 3593483 00 R60.9 peripheral edemacont bumex 1 mg po daily as the torsemide and lasix have been difficult on his JJ and raised labs notably in past.12/01 labs reviewed as abovemonit or labs weekly as above Acute COVID-19 919371136 8 U07.1 pt mostly asymptomat ic with watery eyes and occ dry coughdue to notable comorbidit ies and infection will order:moln upirivar 800mg po bid x 5 daysrobitu ssin 10 ml po q 6 hours prn coughencou rage fluids prnpt tested positive for covid 19 on 12/04 during routine testingiso lation precaution s per facilitymo lnupirvar Essential hypertension 64018329 I10 bp stable currentlya mlodipine 10 mg dailylisin opril 10 mg dailywill monitor and assess if decrease is possible with JJ Renal diso rder due to type 2 diabetes mellitus 813905802 E11.21 Acute on Chronic, renal func at baseline lately, will cont to trend with increased bun/cr BS improving overall, 200'splan: bumex 1 mg po dailycont BMP q saturdayEnco urage fluidsMoni tor for N/V/DFollo w up [facility] Renal Dr. Alonzo as needed.Alex id nephrotoxi csmonitor closely [id number] [facility] [address] 12/09/2023 16:50:14 12/12/2023 09:35:16 Acute COVID-19 4568610162 U07.1 pt mostly asymptomat ic with watery eyes and occ dry cough12/04 due to notable comorbidit ies and infection will order:moln upirivar 800mg po bid x 5 daysrobitu ssin 10 ml po q 6 hours prn coughencou rage fluids prnpt tested positive for covid 19 on 12/04 during routine testingiso lation precaution s per facility cont with plan abovemolnu pirvar Chronic pain 53157433 G8 9.29 pt denies any painAPAP 650 mg q4h prnwill monitorPT/ OT, PRN Diabetic foot ulcer 3710 26400 L97.518 chronic wound, with noncomplia nce to diet and fluid restrictio n and labs in pastwound followed by wound teamcont to be stagnant in general without obvious infectionE lective skin graft attempted at [facility] for the second time, did not take, completed iv abx.cbc c diff, cmp, esr, crp weekly x 5 weeks total to monitor open wound12/08 cont with plan above and labs stable today Type 2 vanda betes mellitus with peripheral angiopathy 149712190 E11.52 E11.42 blood sugars improving 120-225 latelyTres iba 20U qamTrulici ty 4.5 mg SC weeklymetf ormin 1000 mg bidLispro per sliding scalewill monitor Peripheral edema 2387980 00 R60.9 peripheral edema12/08 contbumex 1 mg po daily as the torsemide and lasix have been difficult on his JJ and raised labs notably in past.12/08 labs reviewed and may consider increase in diuretics later this week or next week if neededmoni tor labs weekly as above [id number] Gail Goncalves NP [address] [address] 12/11/2023 14:36:22 12/18/2023 15:51:38 Type 2 diabetes mellitus with peripheral angiopathy 358943598 E11.52 E11.42 blood sugars improving 120-225 latelyTres iba 20U qamTrulici ty 4.5 mg SC weeklymetf ormin 1000 mg bidLispro per sliding scalewill monitor Acute COVID-19 509789227 8 U07.1 pt mostly asymptomat ic with watery eyes and occ dry cough12/04 due to notable comorbidit ies and infection: molnupiriv ar 800mg po bid x 5 daysrobitu ssin 10 ml po q 6 hours prn coughencou rage fluids prnpt tested positive for covid 19 on 12/04 during routine testingiso lation precaution s per facility cont with plan abovemolnu pirvar Chronic pain 61360974 G8 9.29 pt denies any painAPAP 650 mg q4h prnwill monitorPT/ OT, PRN Diabetic foot ulcer 3710 49159 L97.518 chronic wound, with noncomplia nce to diet and fluid restrictio n and labs in pastwound followed by wound team and orders per teamcont to be stagnant in general without obvious infectionE lective skin graft attempted at [facility] for the second time, did not take, completed iv abx.cbc c diff, cmp, esr, crp weekly x 5 weeks total to monitor open wound12/08 cont with plan above and labs stable 12/08 Peripheral edema 5143312 00 R60.9 peripheral edema12/08 contbumex 1 mg po daily as the torsemide and lasix have been difficult on his JJ and raised labs notably in past.12/08 labs reviewed and may consider increase in diuretics later this week or next week if needed12/10 bun/cr slightly elevated and will recheck on a slightly bettermoni tor labs weekly as above [id number] Gail Goncalves NP [facility] [address] 12/13/2023 10:18:43 12/18/2023 16:37:02 Acute COVID-19 7477427534 U07.1 pt tested positive for covid 19 on 12/04 during routine testingpt mostly asymptomat ic with watery eyes and occ dry cough now resolved and off precaution s testing neg on 12/12 12/12 contmolnup irivar 800mg po bid x 5 daysrobitu ssin 10 ml po q 6 hours prn coughencou rage fluids prnisolati on precaution s per facility now offmonitor bun cr closely on mondays Peripheral edema 5003948 00 R60.9 peripheral edema12/12 contbumex 1 mg po daily as the torsemide and lasix have been difficult on his JJ and raised labs notably in past.12/12 stacy wraps to bilateral lower extermitie s dailynote 12/08 bun/cr slightly elevated and will recheck on a slightly bettermoni tor labs weekly as above Type 2 vanda betes mellitus with peripheral angiopathy 068280384 E11.52 E11.42 blood sugars high 94-187 improving contTresib a 20U qamTrulici ty 4.5 mg SC weeklymetf ormin 1000 mg bidLispro per sliding scalewill monitor Diabetic foot ulcer 3710 51369 L97.518 chronic wound, with noncomplia nce to diet and fluid restrictio n and labs in pastnote: Elective skin graft attempted at [facility] for the second time, did not take, completed iv abx. wound followed by wound team and orders per team12/12 plan:cont to be stagnant in general without obvious infection but malodor restart doxycyclin e 100 mg po bid x 30 dayscbc c diff, cmp, esr, crp weekly x 5 weeks total to monitor open woundmonit or [id number] Gali Goncalves NP [address] [address] 12/18/2023 09:15:35 12/24/2023 09:51:52 Diabetic foot ulcer 918322292 L97.518 chronic wound, with noncomplia nce to diet and fluid restrictio n and labs in pastnote: Elective skin graft attempted at [facility] for the second time, did not take, completed iv abx, and finished po course overall stagnant wound healing wound followed by wound team and orders per team for dsg12/17 cont plan:on 12/12 malodor present and restarted doxycyclin e 100 mg po bid x 30 dayshas wbc 12.2 on 12/16 ? related to infection? covidcbc c diff, cmp, esr, crp weekly x 5 weeks total to monitor open woundmonit or Acute COVID-19 584207497 8 U07.1 resolvedpt tested positive for covid 19 on 12/04 during routine testingpt mostly asymptomat ic with watery eyes and occ dry cough now resolved and off precaution s testing neg on 12/12 completedm olnupiriva r 800mg po bid x 5 daysrobitu ssin 10 ml po q 6 hours prn coughencou rage fluids prnisolati on precaution s per facility now offmonitor bun cr closely on mondays Peripheral edema 2360299 00 R60.9 peripheral edema improving on bumex and stacy wraps12/17 however with poor renal function will dc bumex today with hx of lasix and torsemide raising renal function in pastcontac e wraps to bilateral lower extremitie s dailymonit or labs weekly as above and monitor for need to use diuretics Type 2 vanda betes mellitus with peripheral angiopathy 866854999 E11.52 E11.42 blood sugars high 78-274 mostly improving lab shows cr elevated this week and BS of 48 in labs, However 78 here at facility-m onitorTres iba 20U qammounjar o 2.5 mg sc weekly on decrease metformin from 1000mg po bid to 750 mg po bidLispro per sliding scalewill monitor closely and reassess if long acting insulin is more beneficial with egfr elevated likely related to diuretic and covid recently Renal diso rder due to type 2 diabetes mellitus 690131586 E11.21 Acute on Chronic, renal func at baseline lately, will cont to trend with increased bun/cr BS improving overall as aboveplan: 12/17 dc bumex 1 mg po dailycont BMP q saturdayEnco urage fluidsMoni tor for N/V/DFollo w up [facility] Renal Dr. Alonzo as needed.Alex id nephrotoxi csmonitor closely and see above management [id number] Puja Luke MD [address] [address] 01/06/2024 21:35:44 01/23/2024 16:15:02 Diabetic foot ulcer 095423319 L97.518 WBC back to nl and ESR/CRP improving. Continue wound care as ordered.Fo llowed by wound care. Acute COVID-19 290862694 8 U07.1 Tested + 12/05/23Now recovered. Monitor for sequelae. Peripheral edema 9925789 00 R60.0 Stable off diuretics. Continue STACY wraps to BLE on in AM and off in PM.Monitor . Type 2 vanda betes mellitus with peripheral angiopathy 301625774 E11.52 E11.42 E11.21 Recent sugars in good control. Last TSH 8.7 in 02/2023.Met formin recently decreased due to CKD.Contin ue Tresiba 20 U qd, Mounjaro 2.5 mg qweek, metformin 750 mg BID and SSI.Monito r fingerstic ks TID and HgA1C q 3 months (will order). Chronic ki dney disease stage 3A 177903987 N18.31 Stable at new baseline.C ontinue to avoid nephrotoxi c meds as able.Monit or labs.F/U with renal, Dr. Alonzo, prn. Essential hypertension 51909695 I10 BP in good control.Co ntinue lisinopril 10 mg qd and amlodipine 10 mg po qd.Monitor BP and labs.With sl. worsening of renal function, although has now stabilized , consider d/c lisinopril . History of SARS-CoV-2 29 23455213 97303824 Z86.16 Tested + 12/05/23Now recovered. Monitor for sequelae. [id number] Gail Goncalves NP [address] [address] 01/15/2024 10:03:03 01/16/2024 19:29:21 Diabetic foot ulcer 007608907 L97.518 chronic wound, with noncomplia nce to diet and fluid restrictio n and labs in pastnote: Elective skin graft attempted at [facility] for the second time, did not take, completed iv abx, and finished po course overall stagnant wound healing wound followed by wound team and orders per team for dsglast seen 01/13 plan: with note improving and no s/s infectionc ompleted doxycyclin e on 01/11 after 30 day course wbc count resolved on 01/13 labscbc c diff, cmp, esr, crp weeklymoni tor Peripheral edema 9460720 00 R60.9 peripheral edema stable with stacy wrapsconta ce wraps to bilateral lower extremitie s dailymonit or labs weekly as above and monitor for need to use diureticsw ith JJ see abovewill monitor with clinical symptoms for diuretic need Type 2 vanda betes mellitus with peripheral angiopathy 062821294 E11.52 E11.42 blood sugars low in early am, ? if correct but 31 on 01/13 asymptomat iccontTres iba 20U qammounjar o 2.5 mg sc weekly on Li spro per sliding scale01/14 decrease metformin from 750 mg po bid to q am (although not likely causing very low's is contributi ng to JJ)01/14 unclear if qhs snack is given, order written and kitchen notifiedwi ll monitor closely and reassess if long acting insulin is more beneficial with egfr elevated slightly improving with decrease of metformin recently and off diureticsw ill consider increasing tresiba and decreasing metformin in future if needed Renal diso rder due to type 2 diabetes mellitus 476649068 E11.21 Acute on Chronic, renal func at baseline low lately, will cont to trend with increased bun/cr off diuretics at this timewill decrease metformin and adjust as needed for AKIcont BMP q saturdayEnco urage fluidsMoni tor for N/V/DFollo w up [facility] Renal Dr. Alonzo as needed.Alex id nephrotoxi csmonitor closely and see above management [id number] Gail Goncalves NP [address] [address] 02/21/2024 13:07:05 02/26/2024 11:42:36 Type 2 diabetes mellitus with peripheral angiopathy 985218523 E11.52 E11.42 blood sugars low in early am, ? if correct but 31 on 01/13 asymptomat iccontTres iba 20U qamincreas e mounjaro 2.5 mg sc weekly on to 5mg sc weeklyLisp ro per sliding scale of note: recently changed12/23 4 decrease metformin from 750 mg po bid to q am (although not likely causing very low's is contributi ng to JJ)01/14 unclear if qhs snack is given, order written and kitchen notified BS remain high 114-343 however intolerant to increased insulin with low BS.02/20 increase monjaro to 5 mg sc weekly on will monitor closely and reassess if long acting insulin is more beneficial with egfr elevated slightly improving with decrease of metformin recently and off diuretics labs cbc with diff, bmp, esr, crp, ck, level on Diabetic foot ulcer 3710 19371 L97.518 chronic wound, with noncomplia nce to diet and fluid restrictio n and labs in pastnote: Elective skin graft attempted at [facility] for the second time, did not take, completed iv abx, and finished po course overall stagnant wound healing wound followed by wound team weekly as in hpiorders per team for dsgcbc c diff, cmp, esr, crp weekly, but refuses at times02/20 labs cbc with diff, bmp, esr, crp, ck, level on tor Peripheral edema 1287873 00 R60.9 peripheral edema stable with stacy wraps, no diuretics needed todayconta ce wraps to bilateral lower extremitie s dailymonit or labs weekly as above and monitor for need to use diureticsw ith JJ see abovewill monitor with clinical symptoms for diuretic need Renal diso rder due to type 2 diabetes mellitus 742991081 E11.21 Acute on Chronic JJ, renal func at baseline low lately, will cont to trend with increased bun/cr off diuretics at this timemetfor min recently decreased and adjust as needed for AKIcont BMP q saturdayEnco urage fluidsMoni tor for N/V/DFollo w up [facility] Renal Dr. Alonzo as needed.Alex id nephrotoxi csmonitor closely and see above management 02/20 labs cbc with diff, bmp, esr, crp, ck, level on [id number] Gail Goncalves NP [address] [address] 02/27/2024 11:16:16 03/02/2024 11:18:27 Type 2 diabetes mellitus with peripheral angiopathy 365464337 E11.52 E11.42 BS 100-200s with improvemen t lately, no low BS latelynote : last month required glucagon for low BS-careful with titration contTresib a 20U qammounjar o 5mg sc weekly(rec ently increased) Lispro per sliding scaleqhs snackmetfo rmin 750 mg po daily (recently decreased from bid due to JJ) will monitor closely and reassess if long acting insulin is more beneficial with egfr elevated slightly improving with decrease of metformin recently and off diureticsl abs cbc with diff, bmp, esr, crp, ck, level on Renal diso rder due to type 2 diabetes mellitus 618373237 E11.21 Acute on Chronic JJ, renal func at baseline low lately, will cont to trend with increased bun/cr improving with decrease in diuretics and metformin as above off diuretics at this timemetfor min recently decreased and adjust as needed for AKIcont BMP q saturdayEnco urage fluidsMoni tor for N/V/DFollo w up [facility] Renal Dr. Alonzo as needed.Alex id nephrotoxi csmonitor closely and see above management 02/20 labs cbc with diff, bmp, esr, crp, ck, level on tueday Diabetic foot ulcer 3710 20924 L97.518 chronic wound, with noncomplia nce to diet and fluid restrictio n and labs in past note: Elective skin graft attempted at [facility] for the second time, did not take, completed iv abx, and finished po course overall stagnant wound healing wound is stable and nonhealing wound team weekly as in hpiorders per team for dsgcbc c diff, cmp, esr, crp weekly, but refuses at timesmonit or Peripheral edema 0269266 00 R60.9 peripheral edema stable with stacy wraps, no diuretics needed as stacy wraps working wellcontac e wraps to bilateral lower extremitie s dailymonit or labs weekly as above and monitor for need to use diureticsw ith JJ see above will monitor with clinical symptoms for diuretic need Chronic ki dney disease stage 3A 959767289 N18.31 Stable at new baseline.C ontinue to avoid nephrotoxi c meds as able.Monit or labs.F/U with renal, Dr. Alonzo, prn. Essential hypertension 93856481 I10 BP in good control.Co ntinuelisi nopril 10 mg qdamlodipi ne 10 mg po qd.Monitor BP and labs.With sl. worsening of renal function, although has now stabilized , consider d/c lisinopril . Cellulitis of toe 107086 04 L03.032 left toe nail split and 1/2 fell off now infected, second 1/2 of toenail likely will fall offstubbed his toe a few days ago per nursing.9/ 5ns wash, pat dry, betadine paint, and wrap wtih bodered dressing daily and prnwound team consultsta rt doxycyclin e 100 mg po bid x10 days with probioticm onitor for further s/s of infection [id number] Gail Goncalves NP [address] [address] 04/01/2024 09:22:59 04/02/2024 10:56:24 Cellulitis of toe 20839452 L03.032 9/2 left toe nail split and 1/2 fell off now infected, second 1/2 of toenail off after stubbed his toe a few days priorcontn s wash, pat dry, betadine paint, and wrap with bordered dressing daily and prnwound team consultcom pleted doxycyclin e 100 mg po bid x10 days with probioticm onitor for further s/s of infection Type 2 vanda betes mellitus with peripheral angiopathy 688093140 E11.52 E11.42 BS 100-200s, no low BS lately(not e: has required glucagon for low BS on several occassions with long acting reduced-ca reful with titration) contTresib a 20U qammounjar o 5mg sc weekly(rec ently increased) Lispro per sliding scaleqhs snackmetfo rmin 750 mg po daily (recently decreased from bid due to JJ) will monitor closely and reassess if long acting insulin is more beneficial with egfr elevated slightly improving with decrease of metformin recently and off diuretics1 09labs cbc with diff, bmp, esr, crp, ck, on wednesdays x 2 Renal diso rder due to type 2 diabetes mellitus 082300742 E11.21 Acute on Chronic JJ, renal func at baseline lately, will cont to trend with increased bun/cr improving with decrease in diuretics and metformin in general off diuretics at this timemetfor min recently decreased and adjust as needed for AKIcont BMP q saturdayEnco urage fluidsMoni tor for N/V/DFollo w up [facility] Renal Dr. Alonzo as needed.Alex id nephrotoxi csmonitor closely and see above management 04/01 labs cbc with diff, bmp, esr, crp, ck, level on wednesdays x 2 Diabetic foot ulcer 3710 03504 L97.518 chronic wound, with noncomplia nce to diet and fluid restrictio n and labs in past note: Elective skin graft attempted at [facility] for the second time, did not take, completed iv abx, and finished po course overall stagnant wound healing wound is stable and nonhealing wound team weekly as in hpiorders per team for dsgcbc c diff, cmp, esr, crp wednesdays x 2 to trend, pt noncomplia nt at timesmonit or Peripheral edema 4639941 00 R60.9 peripheral edema stable with stacy wraps, no diuretics needed as stacy wraps working wellcontac e wraps to bilateral lower extremitie s dailymonit or labs weekly as above and monitor for need to use diureticsw ith JJ see above will monitor with clinical symptoms for diuretic need Chronic ki dney disease stage 3A 990281070 N18.31 Stable at new baseline.C ontinue to avoid nephrotoxi c meds as able.Monit or labs.F/U with renal, Dr. Alonzo, prn. [id number] ARTURO PAZ, ADMITTING SUPERVISOR [address] [address] 04/21/2024 14:23:09 04/22/2024 10:45:15 Diabetic foot ulcer 130658393 L97.518 chronic wound, with noncomplia nce to diet and fluid restrictio n and labs in pastElecti ve skin graft [facility] [facility], both did not take.Tonio nue [facility] surgical eval and tx.Also followed by Wound PANitishC in house.Cont inue local wound careTubigr ip for gentle compressio nMonitor VS, labsMainta in glucose control. Type 2 vanda betes mellitus with peripheral angiopathy 843344998 E11.52 E11.42 BS currently in good control, mostly 100s, occ. low 200s.Tonio nue:Tresib a 20U qammounjar o 5mg sc q thursmetfo rmin 750 mg po dailyLispr o per sliding scaleqhs snack Continue to trend BS and A1Cs Peripheral edema 1135131 00 R60.9 peripheral edema stable with stacy wraps, not on diuretics at this time. However, has had 12 lb weight gin in past 2 months, may need to consider low dose diuretic.M onitor closely Chronic ki dney disease stage 3A 067381418 N18.31 Stable at new baseline.C ontinue to avoid nephrotoxi c meds as able.Monit or labs.F/U with renal, Dr. Alonzo, prn. Anemia 894021269 D64.89 StableMoni toring CBC weekly for now Congestive heart failure 14944526 I50.22 Has gained 12 lbs in past 2 months.Amberly etite great, not clear if water weight; hx. of diet noncomplia nce.Not on diuretics at this time, but may need to consider.M aintain meds for BP controlMon itor closely for decompensa tion. Depressive disorder 7924 1144 F33.0 Continue escitalopr am 10 mg dailyMonit or mood, behaviors Dyslipidemia 425044579 E 78.49 Continue zetia 10 mg daily, simvastati n 40 mg daily, and fenofibrat e 54 mg dailyCheck LFTs, lipid panel x 1 Essential hypertension 25299311 I10 BP stableCont inue:lisin opril 10 mg qdamlodipi ne 10 mg qdMonitor BP and labs. Autoimmune thyroiditis 98914314 E06.3 Recent 12 lb, weight gainCheck TSH, FT4 x 1Continue levothyrox ine 137 mcg qd [id number] Gail Goncalves NP [facility] [address] [address] 06/26/2024 15:38:47 06/29/2024 13:27:33 Open wound of left foot [id number] 7676449 S91.302A send pt to er and call 911 for left foot cellulitis and likely sepsis [id number] Gail Goncalves NP [facility] [address] [address] 07/08/2024 09:46:45 07/08/2024 11:17:52 Open wound of left foot [id number] 5320329 S91.302A send pt to er and call 911 for left foot dehiscence and overt bleeding going through dressing and towelalso please have hosp assess if central line is needed or if a picc line for abx is more appropriat e in this setting [id number] Gail Goncalves NP [facility] [address] [address] 07/09/2024 08:22:11 07/10/2024 15:20:10 Open wound of left foot [id number] 5801454 S91.302A Left diabetic foot ulcer open wound with 4th and 5th metartarsa l ampopen left foot wound with dehisence with notable bone, tendon, and tissue exposed(no te: he was sent back to [facility] on 07/08 for overt bleeding and dehiscence , evaluated by surgeon and sent back here without interventi on later that day felt he can fu with surgeon at [facility] Dr Mazucco in near future)vito n from [facility] MENDOZA:ns g to make fu with Dr Mendoza at [facility] surgeons IN 1-2 WEEKSwound team to follow heredaily silver alginate to bilateral lower extremity wounds with dry clean dressingco mpression prn for worsening bleedingco mplete 6 weeks of IV rocephin 2gram qd end date 08/12/24-ox ycodone 5 mg po q 6 hours prn pain-picc to right chest ([facility] confirmed this is a picc to right chest in paperwork) not in either armof note: payton placed on 07/07/24 during hospitaliz ation to right chestdue to above will use picc protocol here and have IR or PICC service remove at end of abx course.cbc and bmp weekly and prn if bleeding worsens Diabetic foot ulcer 3710 59773 L97.518 chronic wound, with noncomplia nce to diet and fluid restrictio n and labs in pastElecti ve skin graft attempted at [facility] x 2, both did not take.[place] [place] [facility] also while in hospitalCo ntinue [facility] surgical eval and tx.Also followed by Wound PA-C in house for local care and debridemen t prnContinu e local wound careTubigr ip for gentle compressio nMonitor VS, labsMainta in glucose control. Type 2 vanda betes mellitus with peripheral angiopathy 561609033 E11.52 E11.42 Continue:T resiba 20U qammounjar o 5mg sc q thursmetfo rmin 750 mg po dailyLispr o per sliding scaleqhs snackConti nue to trend BS and A1Cs Peripheral edema 2424819 00 R60.9 peripheral edema stable with stacy wraps, not on diuretics at this time.consi erik low dose diuretic prnMonitor closely Chronic ki dney disease stage 3A 919205497 N18.31 Stable at new baseline.C ontinue to avoid nephrotoxi c meds as able.F/U with renal, Dr. Alonzo, prn.Acute on Chronic AKIoff diuretics at this timecurren tly on metformin 750 mg po qdMonitor for N/V/DFollo w up wtih Renal Dr. Alonzo as needed.Alex id nephrotoxi csmonitor closely and see above management labs cbc with diff, bmp, esr, crp, ck, level on wednesdays Anemia 392406052 D64.89 has anemia now with open left foot wound amp of 4th and 5th toes and increased bleedingns g to monitor bleeding and apply pressure dressings prnMonitor ing CBC weekly for now on wednesdays see above Congestive heart failure 58379456 I50.22 hx ofAppetite great, not clear if water weight with recent weight increasehx . of diet noncomplia nce.Not on diuretics at this time, but may need to consider.M aintain meds for BP controlMon itor closely for decompensa tion. Depressive disorder 3548 9007 F33.0 Continuees citalopram 10 mg dailyMonit or mood, behaviors Dyslipidemia 239380635 E 78.49 Continueze tia 10 mg dailysimva statin 40 mg dailyfenof ibrate 54 mg dailyCheck LFTs, lipid panel prn Essential hypertension 29052832 I10 Continue:l isinopril 10 mg qdamlodipi ne 10 mg qdMonitor BP and labs. Sepsis 95589387 A41.9 see above Osteomyeli tis of left foot 2296758690 298044 M86.9 see above [id number] [facility] [address] 07/15/2024 09:21:48 07/16/2024 11:16:06 Open wound of left foot [id number] 9500967 S91.302A Left diabetic foot ulcer with 4th and 5th metartarsa l amp wiht open left foot wound with notable bone, tendon, and tissue exposed now starting to heal inplan from [facility] MENDOZA:ns g to make fu with Dr Mendoza at [facility] surgeons IN 1-2 WEEKSwound team to follow heredaily silver alginate to bilateral lower extremity wounds with dry clean dressingco mpression prn for worsening bleeding, seems to be helpingcom plete 6 weeks of IV rocephin 2gram qd end date 08/12/24-ox ycodone 5 mg po q 6 hours prn pain-picc to right chest ([facility] confirmed this is a picc to right chest in paperwork) not in either armof note: payton placed on 07/07/24 during hospitaliz ation to right chestdue to above will use picc protocol here and have IR or PICC service remove at end of abx course, not to have nursing remove herecbc and bmp weekly and prn if bleeding worsenssee wound note Sepsis 07794284 A41.9 see above Osteomyeli tis of left foot 7794984697 522270 M86.9 see above Diabetic foot ulcer 3710 95819 L97.518 chronic wound, with noncomplia nce to diet and fluid restrictio n and labs in pastElecti ve skin graft attempted at [facility] x 2, both did not take. no skin graft on this past admissionh [place] [facility] also while in hospitalCo ntinue [facility] eval and tx.Also followed by Wound PA-C in house for local care and debridemen t prnContinu e local wound careTubigr ip for gentle compressio nMonitor VS, labsMainta in glucose control.se e wound note Chronic ki dney disease stage 3A 468211938 N18.31 Stable at new baseline.C ontinue to avoid nephrotoxi c meds as able.F/U with renal, Dr. Alonzo, prn.Acute on Chronic AKIoff diuretics at this timecurren tly on metformin 750 mg po qdMonitor for N/V/DFollo w up [facility] Renal Dr. Alonzo as needed.Alex id nephrotoxi csmonitor closely and see above management labs cbc with diff, bmp, esr, crp, ck, level on wednesdays Type 2 vanda betes mellitus with peripheral angiopathy 502605054 E11.52 E11.42 Continue:T resiba 20U qammounjar o 5mg sc q thursmetfo rmin 750 mg po dailyLispr o per sliding scaleqhs snackConti nue to trend BS and A1Cs Peripheral edema 8886398 00 R60.9 peripheral edema stable with stacy wraps, not on diuretics at this time.consi erik low dose diuretic prnMonitor closely Anemia 577051477 D64.89 has anemia now with open left foot wound amp of 4th and 5th toes and bleeding more controlled with stacy compressio nnsg to monitor bleeding and apply pressure dressings prnMonitor ing CBC weekly for now on wednesdays see above [id number] Gail Goncalves NP [place] [address] [place] [address] 07/22/2024 13:31:36 07/24/2024 10:39:24 Open wound of left foot [id number] 0342098 S91.302A Left diabetic foot ulcer with 4th and 5th metatarsal amp with open left foot wound with notable bone, tendon, and tissue exposedpla n from [facility] MENDOZA:stephany g to make fu with Dr Mendoza at [facility] surgeons IN 1-2 WEEKSwound team to follow heredaily silver alginate to bilateral lower extremity wounds with dry clean dressing and stacy wrapcompre ssion prn for worsening bleeding, seems to be helpingcom plete 6 weeks of IV rocephin 2gram qd end date 08/12/24-ox ycodone 5 mg po q 6 hours prn pain-picc to right chest ([facility] confirmed this is a picc to right chest in paperwork) not in either armof note: payton placed on 07/07/24 during hospitaliz ation to right chestdue to above will use picc protocol here and have IR or PICC service remove at end of abx course, not to have nursing remove herecbc and bmp weekly and prn if bleeding worsenssee wound note Sepsis 40669425 A41.9 see above Osteomyeli tis of left foot 5016183436 447420 M86.9 see above Diabetic foot ulcer 3710 83064 L97.518 chronic wound with increased bleeding today, with noncomplia nce to diet and fluid restrictio n and labs in pastElecti ve skin graft attempted at [facility] x 2, both did not take. no skin graft on this past admissionh ad [place] [facility] also while in hospitalCo ntinue [facility] eval and tx.followe d by Wound PA-C in house for local care and debridemen t prnContinu e local wound care, stacy wrap for compressio n for bleedingMo nitor VS, labsMainta in glucose control.se e wound note weeklylabs trended Chronic ki dney disease stage 3A 274027823 N18.31 Stable at new baseline.C ontinue to avoid nephrotoxi c meds as able.F/U with renal, Dr. Alonzo, prn.Acute on Chronic AKIoff diuretics at this timecontme tformin 750 mg po qdFollow up [facility] Renal Dr. Alonzo as needed.Alex id nephrotoxi csmonitor closely and see above management labs cbc with diff, bmp, esr, crp, ck, level on wednesdays Type 2 vanda betes mellitus with peripheral angiopathy 601368716 E11.52 E11.42 Continue:T resiba 20U qammounjar o 5mg sc q thursmetfo rmin 750 mg po dailyLispr o per sliding scaleqhs snackConti nue to trend BS and A1Cs and adjust for ckd prn Peripheral edema 2986265 00 R60.9 peripheral edema stable with stacy wraps, not on diuretics at this time.consi erik low dose diuretic prnMonitor closely Anemia 125711562 D64.89 has anemia now with open left foot wound amp of 4th and 5th toes and bleeding more controlled with stacy compressio nnsg to monitor bleeding and apply pressure dressings prnMonitor ing CBC weekly for now on wednesdays see above Congestive heart failure 99771798 I50.22 hx ofAppetite great, not clear if water weight with recent weight increasehx . of diet noncomplia nce.Not on diuretics at this time, but may need to consider.M aintain meds for BP controlMon itor closely for decompensa tion. Depressive disorder 3548 9007 F33.0 Continuees citalopram 10 mg dailyMonit or mood, behaviors Dyslipidemia 379028614 E 78.49 Continueze tia 10 mg dailysimva statin 40 mg dailyfenof ibrate 54 mg dailyCheck LFTs, lipid panel prn Essential hypertension 56137911 I10 Continue:l isinopril 10 mg qdamlodipi ne 10 mg qdMonitor BP and labs. [id number] Gail Goncalves NP [address] [address] 08/05/2024 13:20:08 08/06/2024 13:45:32 Open wound of left foot [id number] 9942948 S91.302A Left diabetic foot ulcer with 4th and 5th metatarsal amp with open left foot wound with notable bone, tendon, and tissue exposedpla n from [facility] MENDOZA:ns g to make fu with Dr Mendoza at [facility] surgeons IN 1-2 WEEKSwound team to follow heredaily silver alginate to bilateral lower extremity wounds with dry clean dressing and stacy wrapcompre ssion prn for worsening bleeding, seems to be helpingcom plete 6 weeks of IV rocephin 2gram qd end date 08/12/24-ox ycodone 5 mg po q 6 hours prn pain-picc to right chest ([facility] confirmed this is a picc to [...] nonhealing ulcer Osteomyeli tis of left foot 4705280383 622920 M86.9 see below Diabetic foot ulcer 3710 08355 L97.518 chronic wound with increased bleeding today, with noncomplia nce to diet and fluid restrictio n and labs in pastElecti ve skin graft attempted at [facility] x 2, both did not takehad debridemen t [place] [facility] also while in hospitalCo ntinue [facility] eval and tx.followe d by Wound PA-C in house for local care and debridemen t prnContinu e local wound care, stacy wrap for compressio n for bleedingMo nitor VS, labsMainta in glucose control.se e wound note weeklylabs trended Sepsis 99795526 A41.9 resolvedse e abovebmp and cbc weekly Chronic ki dney disease stage 3A 006718514 N18.31 Stable at new baseline as aboveConti nue to avoid nephrotoxi c meds as able.F/U with renal, Dr. Alonzo, prn.Acute on Chronic AKIoff diuretics at this timecontme tformin 750 mg po qdFollow up wtih Renal Dr. Alonzo as needed.Alex id nephrotoxi csmonitor closely and see above management labs cbc with diff, bmp, esr, crp, ck, level on wednesdays Type 2 vanda betes mellitus with peripheral angiopathy 937100898 E11.52 E11.42 Continue:T resiba 20U qammounjar o 5mg sc q thursmetfo rmin 750 mg po dailyLispr o per sliding scaleqhs snackConti nue to trend BS and A1Cs and adjust for ckd prn Peripheral edema 8543579 00 R60.9 peripheral edema stable with stacy wraps, not on diuretics at this time.consi erik low dose diuretic prnMonitor closely [id number] ARTURO PAZ NP [facility] [address] [address] 08/12/2024 15:53:50 08/12/2024 16:09:25 Osteomyelitis of left foot 9363727499 713769 M86.9 see below Open wound of left foot 0427235338 1215775 S91.302A Left diabetic foot ulcer with 4th and 5th metatarsal amp with open left foot wound with notable bone, tendon, and tissue exposedCon cern of worsening wounds due to increased sloughHas appt. Fri with Dr. Mendoza for eval.Monit or VS, labs as ordered.Fo r now continue collagen and Alg. AG and dcd qd and prnContinu e 6 weeks of IV rocephin - 2gram qd - end date 08/12/24Con tinue oxycodone 5 mg po q 6 hours prn pain-picc to right chest ([facility] confirmed this is a picc to right chest in paperwork) not in either armof note: payton placed on 07/07/24 during hospitaliz ation to right chestdue to above will use picc protocol here and have IR or PICC service remove at end of abx course, not to have nursing remove here Diabetic foot ulcer 3710 48563 L97.518 chronic wound, concern of worsening per wound eval today by wound team.see above, has follow up with Dr. Mendoza saturday.For now continue current POC as outlined above. Sepsis 10816963 A41.9 resolvedse e abovebmp and cbc weekly Chronic ki dney disease stage 3A 818325871 N18.31 Stable at new baseline as aboveConti nue to avoid nephrotoxi c meds as able.F/U with renal, Dr. Alonzo, prn.labs cbc with diff, bmp, esr, crp, ck, level on wednesdays Type 2 vanda betes mellitus with peripheral angiopathy 108930854 E11.52 E11.42 Decent control, BS mostly 100s, occ. 200sContin ue:Tresiba 20U qammounjar o 5mg sc q thursmetfo rmin 750 mg po dailyLispr o per sliding scaleqhs snackConti nue to trend BS and A1Cs and adjust for ckd prn Peripheral edema 1569225 00 R60.9 peripheral edema stable with stacy wraps, not on diuretics at this time.consi erik low dose diuretic prnMonitor closely Health Concerns Section Related Observation LastModified by Organization Detai ls LastModified Time None Recorded Concern Status LastModified by Organization Details LastModified Time None Recorded Advance Directives Directive Y: Full code; all interventi ons Payers Encounter Date Sequence Insurance Name Policy Number Policy Meza Covered Member ID Meza Member ID Guarantor Name 07/09/2024 1 [place] [employer] A Beltran Tarik [id number] Mehul Beltran 07/09/2024 2 [place] [facility] Mehul Beltran [id number] Mehul Beltran 07/15/2024 1 [place] [employer] A Beltran Tarik [id number] Mehul Beltran 07/15/2024 2 [place] [facility] Mehul Beltran [id number] Mehul Beltran 07/22/2024 1 [place] [employer] A Beltran Tarik [id number] Mehul Beltran 07/22/2024 2 [place] [facility] Mehul Beltran [id number] Mehul Beltran 08/05/2024 1 [place] [employer] A Beltran Tarik [id number] Mehul Beltran 08/05/2024 2 [place] [facility] Mehul Beltran [id number] Mehul Beltran 08/12/2024 1 [place] [employer] A Beltran Tarik [id number] Mehul Beltran 08/12/2024 2 [place] [facility] Mehul Beltran [id number] Mehul Beltran Notes Date Note Type Note Provider Name and Address Organization Details Recorded Time 07/09/2024 text/html Mehul is seen today for an routine visit in fu to his recent admission and left diabetic amputation of the left foot. PMH including AODM-poorly controlled with neuropathy, PVD, HTN, acanthosis nigricans, HLD, autoimmune thyroiditis, anemia, hyponatremia, depression, Vit D deficiency, chronic R knee pain (wears brace), chronic bilateral hand pain (uses splints), hx of JJ, developmental delay, s/p R cataract extraction, peripheral edema, and obesity. Mehul is a 53 yo LTC resident with pmh above seen at [facility] 07/02-07/07/23 for osteomyelitis with of the left 4th and 5th toe by MRI and gangenous changes to the skin of the 5th toe requiring amputation and right foot debridement back at [facility] for continued care and rehab. Workup consisted [...] po q 6 hour prn for pain. Note: Pt was sent back to ER for wound dehiscence and bleeding on 07/08/24. Also note pt has a central line payton to chest and will have hospital assess if he is a candidate for a picc line.Hospital paperwork confirmed this is a picc line to right chest with difficult stick.Unclear if this was swapped out at ER visit. According to hospital records a payton was placed to right chest on 07/07/24.Hospital summary continued all meds, consulted surgeon Dr Mendoza and felt no intervention was needed for dehisence or bleeding and sent him back to [facility] later that afternoon and plan to follow up with surgeon outpt. On exam,pt is lying in bed this am. He denies any pain or concerns. His dressing has mild sangenous drainage today (bleeding more controlled) and appears lateral aspect of wound is less with suture intact holding it together more than when sent to ER prior yesterday. Exposed bone, tendon, and tissue remains. Positive cms to distal toes and faint pulses palpable. Double lumen line to right upper chest (PICC per ER). No iv or picc in arms. Overall, with decline and osteomyelitis of left foot concerns as above. Gail Goncalves NP 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 PMH including AODM-poorly controlled with neuropathy, PVD, HTN, acanthosis nigricans, HLD, autoimmune thyroiditis, anemia, hyponatremia, depression, Vit D deficiency, chronic R knee pain (wears brace), chronic bilateral hand pain (uses splints), hx of JJ, developmental delay, s/p R cataract extraction, peripheral edema, and obesity. His right foot is stable from last week and bleeding is decreasing with stacy compression bandages. See wound note for complete details from visit on 07/15 and no change in dressing at this time. of note: Recently had admission at [facility] 07/02-07/07/23 for osteomyelitis with of the left 4th and 5th toe by MRI and gangenous changes to the skin of the 5th toe requiring amputation and right foot debridement back at [facility] for continued care and rehab. Workup consisted of labs, MRI, surgery, and abx consistent with sepsis and JJ on CKD. It was felt wound may not heal on its own and may require further surgeries. All meds continued except flagyl for wound odor dc'd. 2 grams Ceftriaxone started daily for 25 days to complete and oxycodone 5 mg po q 6 hour prn for pain. of note: Pt was sent back to ER for wound dehiscence and bleeding on 07/08/24. Hospital summary continued all meds, consulted surgeon Dr Mendoza and felt no intervention was needed for dehiscence or bleeding and sent him back to [facility] later that afternoon and plan to follow up with surgeon outpt. Gail Goncalves NP [address] [facility] [address], [address], [place], [address], [facility] [employer] 07/15/2024 12:25:56 07/22/2024 text/html Mehul is seen today for an annual visit. PMH including AODM-poorly controlled with neuropathy, PVD, HTN, acanthosis nigricans, HLD, autoimmune thyroiditis, anemia, hyponatremia, depression, Vit D deficiency, chronic R knee pain (wears brace), chronic bilateral hand pain (uses splints), hx of JJ, developmental delay, s/p R cataract extraction, peripheral edema, and obesity. This is a 53 yo man, LTC resident, who I am seen for an annual rounding visit.He continues to have issues with right foot ulcer and continues to be non-compliant with care at times. On 07/19/23 he was sent to [facility] due to abdominal pain, n, V, fever, and diarrhea. Evaluation in ER was remarkable for creatinine of 8.2 (it was 1.5 one week prior), CT of abdomen and pelvis showing mild to moderate circumferential baldder wall thickening possibly related to bladder outlet obstruction or UTI. There was mild thickening of rectosigmoid colon. There was concern for osteomyelitis in right foot which was s/p TMA and had open wound. Xray showed bony erosion involving anteromedial navicular bone at naviculocuneiform joint. He was started on broad spectrum antibiotics and was seen by nephrology who recommended volume resuscitation and then bicarb drip for acidosis. His creatinine improved during hospital stay and was 1.43 at hospital discharge on 07/23/23. ID recommended daptomycin 500 mg IV daily for 6 weeks to treat osteomyelitis. Patient returned to facility on 07/23/23. Patient completed course of daptomycin at facility on 08/29/23 and PICC line was removed on 09/04/23. Mehul was started on torsemide 10 mg daily for increased leg edema recently dc'd for bun/cr elevated at 45/2.75 on fu labs on 09/25. Torsemide and gabapentin discontinued due to renal function elevation. He is recently recovered from Covid having tested + on 12/04. He was txed with molnupiravir and recovered nicely. Metformin and Monjaro adjusted and BS followed closely. He has failed two surgical grafts one in the last 6 months. He continues to have issues with right foot ulcer non-healing and followed by wound. On 07/02-07/07/23 he was admitted to [facility] for osteomyelitis with of the left 4th and 5th toe by MRI and gangenous changes to the skin of the 5th toe requiring amputation and right foot debridement back at [facility] for continued care and rehab. Workup consisted of labs, MRI, surgery, and abx consistent with sepsis and JJ on CKD. It was felt wound may not heal on its own and may require further surgeries. All meds continued except flagyl for wound odor dc'd. 2 grams Ceftriaxone started daily for 25 days to complete and oxycodone 5 mg po q 6 hour prn for pain. On 07/08/24 Pt was sent back to ER for wound dehiscence and bleeding. Hospital summary continued all meds, consulted surgeon Dr Mendoza and felt no intervention was needed for dehiscence or bleeding and sent him back to [facility] later that afternoon and plan to follow up with surgeon outpt. Since back he is followed by wound team for nonhealing ulcers and an stacy wrap is used to help with the bleeding. Labs are followed and trended. On exam he denies any pain and his right foot has some bleeding noted today controlled with dressing and wrap. He continues with nonhealing wound to the left foot and toe amputation with foot wound skin is pink and bleeding decreased with sutures remaining since hospitalization. He denie s any pain today. Last year he weighed 252 lbs and now weight 255 lbs which is similar. Gail Goncalves, ODALYS [address] [place] [address], [address], [place], [phone], [facility] 07/22/2024 17:33:56 08/05/2024 text/html Mehul is seen today for [...] recommend fu with surgeon. Gail Goncalves NP [address] [facility], [address], [place], [address], [facility] 08/05/2024 13:49:41 08/12/2024 text/html Mehul is seen today for an acute visit. This is a 53 yo man, LTC resident, currently with poorly healing ulcers on B feet. Has undergone amputations and continues with daily wound care.He is followed by the Wound Team here as well as Dr. Mendoza at [facility].Case discussed with nsg. today, who report his foot wounds are not looking well; he has an appt. with surgery on Saturday for eval. Current tx. is collagen and alginate AG with DCD qd and prn. VSS.Labs 08/05 with bump in ESR/CRP.BS 100s, occ. 200s. Upon exam, Mehul is OOB in his w/c, dressings just changed, feet well wrapped with new dressings and STACY wraps.In good spirits, NAD, has no complaints. PMH including AODM-poorly controlled with neuropathy, PVD, [...] trending up. Will recommend fu with surgeon. ARTURO PAZ NP [address] [facility] [address], [address], [place], [address], [facility] 08/12/2024 16:09:24
--- OUTSIDE RECORDS SUMMARY | 2024-08-14 09:51 | XMS_ITS | Encounter Summary ---
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 Name Role Phone Unavailable Primary Care Provider Unavailabl e Encounter Details Date Type Department Care Team (Latest Contact Info) Description 11/07/2018 Abstract [facility] CONVERSIONS Dental, Provider, DDS Social History Tobacco Use Types Packs/Day Years Used Date Smoking Tobacco: Never Assessed Sex and Gender Information Value Date Recorded Sex Assigned at Male 04/23/2022 10:32 AM EDT Legal Sex Male 10:32 AM EDT Gender Identity Not on file Sexual Orientation Not on file documented as of this encounter Plan of Treatment Not on file documented as of this encounter Visit Diagnoses Not on filedocumented in this encounter
--- OUTSIDE RECORDS SUMMARY | 2024-08-14 09:51 | XMS_ITS | Encounter Summary ---
Author Organization [facility] Address [address] [place] [address] Care Team Providers Care Braiding Machine Tender Name Role Phone Isai Reaves MD Primary Care Provider [phone] Encounter Details Date Type Department Care Team (Late st Contact Info) Description 08/12/[address] [facility] [address] [facility] [place] [address] Isai Reaves MD [address] [place] [address] [address] [place], [phone] Type 2 diabetes mellitus without complications (CMS/HCC); Osteomyelitis, unspecified (CMS/HCC); Hypothyroidism, unspecified; Hyperlipidemia, unspecified Social History Tobacco Use Types Packs/Day Years [...] Date/Time Associated Diagnosis Comments SEDIMENTATION RATE Routine 08/13/2024 6: 21 AM EST Type 2 diabetes mellitus without complications (CMS/HCC) Osteomyelitis, unspecified (CMS/HCC) Hypothyroidism, unspecified Hyperlipidemia, unspecified COMPLETE BLOOD COUNT Routine 08/13/2024 6:21 AM EST Type 2 diabetes mellitus without complications (CMS/HCC) Osteomyelitis, unspecified (CMS/HCC) Hypothyroidism, unspecified Hyperlipidemia, unspecified C-REACTIVE PROTEIN Routine 08/13/2024 6: 21 AM EST Type 2 diabetes mellitus without complications (CMS/HCC) Osteomyelitis, unspecified (CMS/HCC) Hypothyroidism, unspecified Hyperlipidemia, unspecified BASIC METABOLIC PANEL Routine 08/13/2024 6:21 AM EST Type 2 diabetes mellitus without complications (CMS/HCC) Osteomyelitis, unspecified (CMS/HCC) Hypothyroidism, unspecified Hyperlipidemia, unspecified documented in this encounter Results * (ABNORMAL) Sedimentation rate (08/13/2024 6:21 AM EST) Pathologist [facility] Sed Rate 89(H) 0 - 20 mm/hr LAB HEMETOLOGY METHOD 08/13/2024 11:03 AM EST [facility] Blood Venous blood specimen / Unknown Venipuncture / Unknown 08/13/2024 6:21 AM EST 08/13/2024 9:31 AM EST Isai Reaves MD LAB BLOOD ORDERABLES Final Resul t Performing Organization Address [facility]/ZIP Co de Phone Number [facility] [address] [place] [address], [place] [phone] * (ABNORMAL) C-reactive protein (08/13/2024 6:21 AM EST) [facility] C-Reactive Protein 1.59(H) <=0.50 mg/dL LAB CHEMISTRY METHOD 08/13/2024 10:55 AM EST [facility] Blood Venous blood specimen / Unknown Venipuncture / Unknown 08/13/2024 6:21 AM EST 08/13/2024 9:31 AM EST Isai Reaves MD LAB BLOOD ORDERABLES Final Resul t [facility] [address] [place] [address], [place] [phone] * (ABNORMAL) Basic metabolic panel (08/13/2024 6:21 AM EST) [facility] Sodium 135 133 - 145 mmol/L LAB CHEMISTRY METHOD 08/13/2024 10:50 AM EST [facility] Potassium 4.9 3.5 - 5.5 mmol/L LAB CHEMISTRY METHOD 08/13/2024 10:50 AM [facility] Chloride 105 96 - 110 mmol/L LAB CHEMISTRY METHOD 08/13/2024 10:50 AM [facility] CO2 27 21 - 32 mmol/L LAB CHEMISTRY METHOD 08/13/2024 10:50 AM [facility] Anion Gap 3 3 - 11 LAB CHEMISTRY METHOD 08/13/2024 10:50 AM [facility] Glucose 201(H) 70 - 100 mg/dL LAB CHEMISTRY METHOD 08/13/2024 10:50 AM [facility] BUN 31(H) 5 - 25 mg/dL LAB CHEMISTRY METHOD 08/13/2024 10:50 AM [facility] Creatinine 1.48(H) 0.70 - 1.30 mg/dL LAB CHEMISTRY METHOD 08/13/2024 10:50 AM [facility] eGFR 56(L) >=60 mL/min/1. 73m2 LAB CHEMISTRY METHOD 08/13/2024 10:50 AM [facility] Comment:Calculation based on the??Chronic Kidney Disease Epidemiology Collaboration (CKD-EPI) equation refit??without adjustment for race. BUN/Creatinine Ratio 20.9 LAB CHEMISTRY METHOD 08/13/2024 10:50 AM [facility] Calcium 8.5 8.5 - 10.5 mg/dL LAB CHEMISTRY METHOD 08/13/2024 10:50 AM [facility] Blood Venous blood specimen / Unknown Venipuncture / Unknown 08/13/2024 6:21 AM EST 08/13/2024 9:31 AM EST us Isai Reaves MD LAB BLOOD ORDERABLES Final Resul t [facility] [address] [place] [address], * (ABNORMAL) Complete blood count (08/13/2024 6:21 AM EST) [facility] Signature WBC 7.5 4.8 - 10.8 K/mcL LAB HEMETOLOGY METHOD 08/13/2024 10:45 AM [facility] RBC 3.30(L) 4.50 - 5.50 M/mcL LAB HEMETOLOGY METHOD 08/13/2024 10:45 AM [facility] Hemoglobin 8.8(L) 13.5 - 17.5 g/dL LAB HEMETOLOGY METHOD 08/13/2024 10:45 AM [facility] Hematocrit 27.9(L) 42.0 - 54.0 % LAB HEMETOLOGY METHOD 08/13/2024 10:45 AM [facility] MCV 85.8 79.0 - 98.0 FL LAB HEMETOLOGY METHOD 08/13/2024 10:45 AM [facility] MCH 27.1 27.0 - 32.0 pcg LAB HEMETOLOGY METHOD 08/13/2024 10:45 AM [facility] MCHC 31.5(L) 32.0 - 37.0 g/dL LAB HEMETOLOGY METHOD 08/13/2024 10:45 AM [facility] RDW 13.3 11.0 - 15.0 % LAB HEMETOLOGY METHOD 08/13/2024 10:45 AM [facility] Platelets 262 130 - 400 K/mcL LAB HEMETOLOGY METHOD 08/13/2024 10:45 AM [facility] MPV 10.5 7.0 - 11.0 FL LAB HEMETOLOGY METHOD 08/13/2024 10:45 AM [facility] NRBC 0.0 <1.0 % LAB HEMETOLOGY METHOD 08/13/2024 10:45 AM [facility] NRBC Absolute 0.00 <0.10 K/mcL LAB HEMETOLOGY METHOD 08/13/2024 10:45 AM EST [facility] Blood Venous blood specimen / Unknown Venipuncture / Unknown 08/13/2024 6:21 AM EST 08/13/2024 9:31 AM EST us Isai Reaves MD LAB BLOOD ORDERABLES Final Resul t [facility] [address] [place] [address], documented in this encounter Visit Diagnoses Diagnosis Type 2 diabetes mellitus without complications (CMS/HCC) Osteomyelitis, unspecified (CMS/HCC) Hypothyroidism, unspecified Hyperlipidemia, unspecified documented in this encounter Care Teams Braiding Machine Tender Relationship Specialty Start Date End Date Isai Reaves MD [address] [place] [address], [id number] PCP - General Family Medicine 05/08/24 documented as of this encounter
--- OUTSIDE RECORDS SUMMARY | 2024-08-14 09:51 | XMS_ITS | Continuity of Care Document ---
Author Organization [facility], [facility] Address [address] [place] [address] Care Team Providers Care Pcu Rn Name Role Phone NICK CUETO Primary Care Provider [facility] - 3RD FLOOR OTHER Assessment No [...] Organization Details Recorded Time Diabetic foot ulcer 632329623 Active 2022 FENG KRAFT PA-C [address], [address], [place], [address], [facility] [employer] [facility] 3 12:26:29 Type 2 diabetes mellitus with periphera l angiopath y 204720561 Active 2022 FENG KRAFT PA-C [address], [address], [place], [address], [facility] [employer] [facility] 3 12:26:45 Renal disorder due to type 2 diabetes mellitus 085743014 Active 2022 FENG KRAFT PA-C [address], [address], [place], [address], [facility] [employer] [facility] 3 12:26:59 Periphera l neuropath y due to type 2 diabetes mellitus 599223872250 7 Active 2022 FENG KRAFT PA-C [address], [address], [place], [address], [facility] 3 12:27:14 Essential hypertens ion 37057833 Active 2022 FENG KRAFT PA-C [address], [address], [place], [address], [facility] 3 12:27:19 Dyslipide [facility] 473240371 Active 2022 FENG KRAFT PA-C [address], [address], [place], [address], [facility] 3 12:27:26 Autoimmun e thyroidit is 61566630 Active 2022 FENG KRAFT PA-C [address], [address], [place], [address], [facility] 3 12:27:35 Anemia 616757056 Active 2022 FENG KRAFT PA-C [address], [address], [place], [address], [facility] 3 12:27:41 Chronic hyponatre adrian 30803910 Active 2022 FENG KRAFT PA-C [address], [address], [place], [address], [facility] 3 12:27:47 Depressiv e disorder 29074641 Active 2022 FENG KRAFT PA-C [address], [address], [place], [address], [facility] 3 12:27:52 Vitamin D deficienc y 35129445 Active 2022 FENG KRAFT PA-C [address], [address], [place], [address], [facility] 3 12:28:00 Pain of right knee joint 837602713440 100 Active 2022 FENG KRAFT PA-C [address], [address], [place], [address], [facility] 3 12:28:14 Congestiv e heart failure 61165160 Active 2022 details unk FENG KRAFT PA-C [address], [address], [place], [address], [facility] 3 12:28:32 Uncontrol led type 2 diabetes mellitus 824753792 Active 2022 Puja Luke MD [address] [facility], [address], [place], [address], [facility] 3 18:14:15 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 3 19:57:21 Chronic osteomyel itis of right foot 913615204906 9104 Active 2022 Puja Luke MD [address] [facility], [address], [place], [address], [facility] 3 19:59:07 Acute cholecyst itis 62398331 Active 2023 s/p [facility] 06/2023 ARTURO PAZ NP [address] [facility], [address], [place], [address], [facility] 4 14:22:11 Impaired cognition 092657678 Active 2023 SLUMS completed 07/25/23, score 17 ARTURO PAZ NP [address] [facility], [address], [place], [address], [facility] 4 11:03:32 Acute osteomyel itis of right foot 418580229297 9104 Active 2023 ARTURO PAZ NP [address] [facility], [address], [place], [address], [facility] 4 11:04:08 Diabetic foot ulcer 600912229 Active 2024 Gail Goncalves NP [address] [facility], [address], [place], [address], [facility] 5 10:42:27 Problem Notes None recorded. Medical Equipment None Reported. Allergies Allergen ID Allergen Name Allergen Category Reaction Reaction Severity Criticality Documentation Date Start Date Code Code System Note Provider Name and Address Organization Details Recorded Time 78647 Lipitor medicatio n rash Not available Not available 07/02/2022 87467 5 RxNorm can take Zocor Not Available Not Available Not Available Vitals Date Recorded Body height Body weight Heart rate Respiratory rate Body temperature Oxygen saturation Oxygen saturation in Arterial blood by Pulse oximetry Systolic blood pressure Diastolic blood pressure Provider Name and Address Organization Details Last Updated DateTime 5 165.1 cm 613500. 05 g 70 /min 18 /min 97.9 [degF] 97 % 97 % 128 mm[Hg] 72 mm[Hg] Gail Goncalves NP [address], [address], [place], [address], [facility] 5 12:08:04 Social History Question Answer Notes LastModified by Organization Details LastModified Time Tobacco Smoking Status Never Smoker FENG KRAFT PA-C [address], [address], [place], [address], [facility] 07/02/2022 11:36:18 Do You Have An Advance Directive? Yes Full Code; All Interventions Information not available 07/06/2022 What Is Your Level Of Alcohol Consumption? None Information not available 07/02/2022 What Is Your Code Status? Full Code Information not available 07/03/2022 Where Do You Live? Nursinghome Now LTC At [facility], Previously Lived At [facility], Awaiting Senior Care Placement Information not available 01/23/2024 Legal Guardian? No Informati on not available 07/03/2022 Do You Have A Medical Power Of Railroad Switchman? Yes Has HCP - Invoke Has Newer HCP Per Senior Applications Developer, Family Recently Reunited Information not available 07/08/2024 What Was The Date Of Your Most Recent Tobacco Screening? 07/08/2024 Information not available 07/08/2024 Do You Have An Out Of Hospital DNR? No Information not available 07/03/2022 What Is Your Relationship Status? Single Information not available 07/03/2022 Do You Use Any Illicit Or Recreational Drugs? No [email or web address] Information not available 07/02/2022 Has Tobacco Cessation Counseling Been Provided? No N/A As Pt Is A Non-smoker Information not available 07/03/2022 Do You Or Have You Ever Used Any Other Forms Of Tobacco Or Nicotine? No [email or web address] Information not available 07/02/2022 Sex: Unknown Functional Status None recorded. Mental Status None recorded. Family History Relationship Description Onset Age of this Age Resolved Age Notes LastModified by Organization Details LastModified Time Father Essential hypertension dece ed Not available 07/02/2022 11:34:54 Mother Type 2 diabetes mellitus dece ed Not available 07/02/2022 11:35:10 Medical History No medical history recorded. Immunizations Vaccine Type Date Status Note Provider Nam e and Address Organization Details Recorded Time COVID-19, mRNA, LNP-S, PF, 30 mcg/0.3 mL dose 1 completed ARNEL MOSER-Rehan [address], [address], [place], [address], [facility] 07/02/2022 11:29:08 COVID-19, mRNA, LNP-S, PF, 30 mcg/0.3 mL dose 1 completed ARNEL MOSER-C [address], [address], [place], [address], [facility] 07/02/2022 11:29:11 Tdap 6 completed ARNEL MOSER-C [address], [address], [place], [address], [facility] 07/02/2022 11:29:24 pneumococcal polysaccharide PPV23 7 completed ARNEL MOSER-C [address], [address], [place], [address], [facility] 07/02/2022 11:29:42 Influenza, split virus, quadrivalent, PF 3 completed ARNEL MOSER-C [address], [address], [place], [address], [facility] 08/10/2022 13:17:40 pneumococcal polysaccharide PPV23 3 completed FENG KRAFT PA-C [address], [address], [place], [address], [facility] 08/10/2022 13:18:04 COVID-19, mRNA, LNP-S, bivalent, PF, 30 mcg/0.3 mL dose 3 completed FENG KRAFT PA-C [address] [facility], [address], [place], [address], [facility] 08/10/2022 13:18:32 Influenza, adjuvanted, quadrivalent, PF 3 completed Nyla bullard, [facility] 08/09/2023 17:56:04 COVID-19, mRNA, LNP-S, bivalent, PF, 30 mcg/0.3 mL dose 3 completed Nyla bullard, [facility] 08/12/2023 11:51:52 Past Encounters Encounter ID Performer Location Encounter Start Date Encounter Closed Date Diagnosis/Indication Diagnosis SNOMED-CT Code Diagnosis ICD10 Code Diagnosis Note [id number] Gail Goncalves NP [facility] [address] [address] 06/26/2024 15:38:47 06/29/2024 13:27:33 Open wound of left foot 6095743025 0247614 S91.302A send pt to er and call 911 for left foot cellulitis and likely sepsis [id number] Gail Goncalves NP [facility] [address] [address] 07/08/2024 09:46:45 07/08/2024 11:17:52 Open wound of left foot 8931982213 7277462 S91.302A send pt to er and call 911 for left foot dehiscence and overt bleeding going through dressing and towelalso please have hosp assess if central line is needed or if a picc line for abx is more appropriat e in this setting [id number] Gail Goncalves NP [facility] [address] [address] 07/09/2024 08:22:11 07/10/2024 15:20:10 Open wound of left foot 8254654842 9874544 S91.302A Left diabetic foot ulcer open wound with 4th and 5th metartarsa l ampopen left foot wound with dehisence with notable bone, tendon, and tissue exposed(no te: he was sent back to [facility] on 07/08 for overt bleeding and dehiscence , evaluated by surgeon and sent back here without interventi on later that day felt he can fu with surgeon at [facility] Mendoza in near future)redd n from [facility] Dr MENDOZA:ns g to make fu with Dr Mendoza at [facility] surgeons IN 1-2 WEEKSwound team to follow heredaily silver alginate to bilateral lower extremity wounds with dry clean dressingco mpression prn for worsening bleedingco mplete 6 weeks of IV rocephin 2gram qd end date 08/12/24-ox ycodone 5 mg po q 6 hours prn pain-picc to right chest ([facility] ER confirmed this is a picc to right chest in paperwork) not in either armof note: payton placed on 07/07/24 during hospitaliz ation to right chestdue to above will use picc protocol here and have IR or PICC service remove at end of abx course.cbc and bmp weekly and prn if bleeding worsens Diabetic foot ulcer 3710 76226 L97.518 chronic wound, with noncomplia nce to diet and fluid restrictio n and labs in pastElecti ve skin graft attempted at [facility] x 2, both did not take.[facility] in hospitalCo ntinue [facility] surgical eval and tx.Also followed by Wound PA-C in house for local care and debridemen t prnContinu e local wound careTubigr ip for gentle compressio nMonitor VS, labsMainta in glucose control. Type 2 vanda betes mellitus with peripheral angiopathy 679218450 E11.52 E11.42 Continue:T resiba 20U qammounjar o 5mg sc q thursmetfo rmin 750 mg po dailyLispr o per sliding scaleqhs snackConti nue to trend BS and A1Cs Peripheral edema 4452206 00 R60.9 peripheral edema stable with anusha wraps, not on diuretics at this time.consi erik low dose diuretic prnMonitor closely Chronic ki dney disease stage 3A 444421711 N18.31 Stable at new baseline.C ontinue to avoid nephrotoxi c meds as able.F/U with renal, Dr. Alonzo, prn.Acute on Chronic AKIoff diuretics at this timecurren tly on metformin 750 mg po qdMonitor for N/V/DFollo w up [facility] Renal Dr. Alonzo as needed.Alex id nephrotoxi csmonitor closely and see above management labs cbc with diff, bmp, esr, crp, ck, level on wednesdays Anemia 190186745 D64.89 has anemia now with open left foot wound amp of 4th and 5th toes and increased bleedingns g to monitor bleeding and apply pressure dressings prnMonitor ing CBC weekly for now on wednesdays see above Congestive heart failure 81336971 I50.22 hx ofAppetite great, not clear if water weight with recent weight increasehx . of diet noncomplia nce.Not on diuretics at this time, but may need to consider.M aintain meds for BP controlMon itor closely for decompensa tion. Depressive disorder 3548 9007 F33.0 Continuees citalopram 10 mg dailyMonit or mood, behaviors Dyslipidemia 090414405 E 78.49 Continueze tia 10 mg dailysimva statin 40 mg dailyfenof ibrate 54 mg dailyCheck LFTs, lipid panel prn Essential hypertension 97625856 I10 Continue:l isinopril 10 mg qdamlodipi ne 10 mg qdMonitor BP and labs. Sepsis 22397089 A41.9 see above Osteomyeli tis of left foot 6376725838 225236 M86.9 see above [id number] Gail Goncalves NP [address] [address] 07/15/2024 09:21:48 07/16/2024 11:16:06 Open wound of left foot 8184002697 8461881 S91.302A Left diabetic foot ulcer with 4th and 5th metartarsa l amp wiht open left foot wound with notable bone, tendon, and tissue exposed now starting to heal inplan from [facility] MENDOZA:ns g to make fu with Dr Mendoza at [facility] surgeons IN 1-2 WEEKSwound team to follow heredaily silver alginate to bilateral lower extremity wounds with dry clean dressingco mpression prn for worsening bleeding, seems to be helpingcom plete 6 weeks of IV rocephin 2gram qd end date 08/12/24-ox ycodone 5 mg po q 6 hours prn pain-picc to right chest ([facility] ER confirmed this is a picc to right chest in paperwork) not in either armof note: payton placed on 07/07/24 during hospitaliz ation to right chestdue to above will use picc protocol here and have IR or PICC service remove at end of abx course, not to have nursing remove herecbc and bmp weekly and prn if bleeding worsenssee wound note Sepsis 30696849 A41.9 see above Osteomyeli tis of left foot 6566359425 317858 M86.9 see above Diabetic foot ulcer 3710 44796 L97.518 chronic wound, with noncomplia nce to diet and fluid restrictio n and labs in pastElecti ve skin graft attempted at [facility] x 2, both did not take. no skin graft on this past admissionh [place] [facility] [place] [facility] [place] in hospitalCo ntinue [facility] surgical eval and tx.Also followed by Wound PA-C in house for local care and debridemen t prnContinu e local wound careTubigr ip for gentle compressio nMonitor VS, labsMainta in glucose control.se e wound note Chronic ki dney disease stage 3A 406950898 N18.31 Stable at new baseline.C ontinue to avoid nephrotoxi c meds as able.F/U with renal, Dr. Alonzo, prn.Acute on Chronic AKIoff diuretics at this timecurren tly on metformin 750 mg po qdMonitor for N/V/DFollo w up [facility] Renal Dr. Alonzo as needed.Alex id nephrotoxi csmonitor closely and see above management labs cbc with diff, bmp, esr, crp, ck, level on wednesdays Type 2 vanda betes mellitus with peripheral angiopathy 379231701 E11.52 E11.42 Continue:T resiba 20U qammounjar o 5mg sc q thursmetfo rmin 750 mg po dailyLispr o per sliding scaleqhs snackConti nue to trend BS and A1Cs Peripheral edema 4904102 00 R60.9 peripheral edema stable with anusha wraps, not on diuretics at this time.consi erik low dose diuretic prnMonitor closely Anemia 753631977 D64.89 has anemia now with open left foot wound amp of 4th and 5th toes and bleeding more controlled with anusha compressio nnsg to monitor bleeding and apply pressure dressings prnMonitor ing CBC weekly for now on wednesdays see above Health Concerns Section Related Observation LastModified by Organization Detai ls LastModified Time None Recorded Concern Status LastModified by Organization Details LastModified Time None Recorded Payers Encounter Date Sequence Insurance Name Policy Number Policy Meza Covered Member ID Meza Member ID Guarantor Name 07/15/2024 1 [place] [employer] A Devin Spanglerquillo [id number] Mehul Beltran 07/15/2024 2 [place] [facility] Mehul Beltran [id number] Mehul Beltran Notes Date Note Type Note Provider Name and Address Organization Details Recorded Time 07/15/2024 text/html Mehul is seen today for [...] last week and bleeding is decreasing with anusha compression bandages. See wound note for complete details from visit on 07/15 and no change in dressing at this time. of note: Recently had admission at [facility] 07/02-07/07/23 for osteomyelitis with of the left 4th and 5th toe by MRI and gangenous changes to the skin of the 5th toe requiring amputation and right foot debridement back at [facility] for continued care and rehab. Workup consisted [...] or bleeding and sent him back to [facility] later that afternoon and plan to follow up with surgeon outpt. Gail Gonclaves NP [address] [place] [address], [address], [place], [address], [facility] 07/15/2024 12:25:56
--- OUTSIDE RECORDS SUMMARY | 2024-08-14 09:51 | XMS_ITS | Continuity of Care Document ---
Author Organization [facility] Address [address] [place] [address] Care Team Providers Care Automotive Instructor Name Role Phone NICK CUETO Primary Care Provider [facility] - 3RD FLOOR OTHER Assessment No [...] Organization Details Recorded Time Diabetic foot ulcer 022696702 Active 2022 FENG KRAFT PA-C [address], [address], [place], [address], [facility] 3 12:26:29 Type 2 diabetes mellitus with periphera l angiopath y 958643380 Active 2022 FENG KRAFT PA-C [address], [address], [place], [address], [facility] 3 12:26:45 Renal disorder due to type 2 diabetes mellitus 633670662 Active 2022 FENG KRAFT PA-C [address], [address], [place], [address], [facility] 3 12:26:59 Periphera l neuropath y due to type 2 diabetes mellitus 097831725911 7 Active 2022 FENG KRAFT PA-C [address], [address], [place], [address], [facility] 3 12:27:14 Essential hypertens ion 22963322 Active 2022 FENG KRAFT PA-C [address], [place], [address], [email or web address] 3 12:27:19 Dyslipide [facility] 903637150 Active 2022 FENG KRAFT PA-C [address], [address], [place], [address], [email or web address] 3 12:27:26 Autoimmun e thyroidit is 51962085 Active 2022 FENG KRAFT PA-C [address], [address], [place], [address], [facility] 3 12:27:35 Anemia 489442321 Active 2022 FENG KRAFT PA-C [address], [address], [place], [address], [facility] 3 12:27:41 Chronic hyponatre adrian 20346515 Active 2022 FENG KRAFT PA-C [address], [address], [place], [address], [facility] 3 12:27:47 Depressiv e disorder 25390131 Active 2022 FENG KRAFT PA-C [address], [address], [place], [address], [facility] 3 12:27:52 Vitamin D deficienc y 69601024 Active 2022 FENG KRAFT PA-C [address], [address], [place], [address], [facility] 3 12:28:00 Pain of right knee joint 717024164952 100 Active 2022 FENG KRAFT PA-C [address], [address], [place], [address], [facility] 3 12:28:14 Congestiv e heart failure 35961840 Active 2022 details unk FENG KRAFT PA-C [address], [address], [place], [address], [facility] 3 12:28:32 Uncontrol led type 2 diabetes mellitus 588446458 Active 2022 Puja Luke MD [address], [address], [place], [address], [facility] 3 18:14:15 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 454516833953 42303 Active 2022 Puja Luke MD [address], [address], [place], [address], [email or web address] 3 19:57:21 Chronic osteomyel itis of right foot 447289811954 9104 Active 2022 Puja Luke MD [address], [address], [place], [address], [facility] 3 19:59:07 Acute cholecyst itis 34404455 Active 2023 s/p [facility] 06/2023 ARTURO PAZ NP [address], [address], [place], [address], [facility] 4 14:22:11 Impaired cognition 735055308 Active 2023 SLUMS completed 07/25/23, score 17 ARTURO PAZ NP [address], [address], [place], [address], [facility] 4 11:03:32 Acute osteomyel itis of right foot 478893568693 9104 Active 2023 ARTURO PAZ NP [address], [address], [place], [address], [facility] 4 11:04:08 Diabetic foot ulcer 947827399 Active 2024 Gail Goncalves NP [address], [address], [place], [address], [facility] 5 10:42:27 Problem Notes None recorded. Medical Equipment None Reported. Allergies Allergen ID Allergen Name Allergen Category Reaction Reaction Severity Criticality Documentation Date Start Date Code Code System Note Provider Name and Address Organization Details Recorded Time 70061 Lipitor medicatio n rash Not available Not available 07/02/2022 41902 5 RxNorm can take Zocor Not Available [...] mm[Hg] 68 mm[Hg] ARTURO PAZ NP [address], [place], [address], [facility] 5 15:54:39 Social History Question Answer Notes LastModified by Organization Details LastModified Time Tobacco Smoking Status Never Smoker FENG KRAFT PA-C [address], [address], [place], [address], [facility] 07/02/2022 11:36:18 Do You Have An Advance Directive? Yes Full Code; All Interventions [email or web address] Information not available 07/06/2022 What Is Your Level Of Alcohol Consumption? None [email or web address] Information not available 07/02/2022 What Is Your Code Status? Full Code Information not available 07/03/2022 Where Do You Live? Nursinghome Now LTC [facility], Previously Lived At [facility], Awaiting Snf Placement Information not available 01/23/2024 Legal Guardian? No Informati on not available 07/03/2022 Do You Have A Medical Power Of Lens Molder? Yes Has HCP - Invoke Has Newer HCP Per Finance Officer, Family Recently Reunited Information not available 07/08/2024 [...] No N/A As Pt Is A Non-smoker [email or web address] Information not available 07/03/2022 Do You Or Have You Ever Used Any Other Forms Of Tobacco Or Nicotine? No Information not available 07/02/2022 Sex: Unknown Functional Status None recorded. Mental Status None recorded. Family History Relationship Description Onset Age of this Age Resolved Age Notes LastModified by Organization Details LastModified Time Father Essential hypertension dece ed [email or web address] Not available 07/02/2022 11:34:54 Mother Type 2 diabetes mellitus dece ed [email or web address] Not available 07/02/2022 11:35:10 Medical History No medical history recorded. Immunizations Vaccine Type Date Status Note Provider Nam e and Address Organization Details Recorded Time COVID-19, mRNA, LNP-S, PF, 30 mcg/0.3 mL dose 1 completed ARNEL MOSER-C [address], [address], [place], [address], [facility] 07/02/2022 11:29:08 COVID-19, mRNA, LNP-S, PF, 30 mcg/0.3 mL dose 1 completed ARNEL MOSER-C [address], [address], [place], [address], [facility] 07/02/2022 11:29:11 Tdap 6 completed ARNEL MOSER-C [address], [address], [place], [address], [facility] 07/02/2022 11:29:24 pneumococcal polysaccharide PPV23 7 completed ARNEL MOSER-C [address], [address], [place], [address], [facility] 07/02/2022 11:29:42 Influenza, split virus, quadrivalent, PF 3 completed ARNEL MOSER-C [address], [address], [place], [address], [facility] 08/10/2022 13:17:40 pneumococcal polysaccharide PPV23 3 completed ARNEL MOSER-C [address], [address], [place], [address], [facility] 08/10/2022 13:18:04 COVID-19, mRNA, LNP-S, bivalent, PF, 30 mcg/0.3 mL dose 3 completed FENG KRAFT PA-C [address], [address], [place], [address], [facility] 08/10/2022 13:18:32 Influenza, adjuvanted, quadrivalent, PF 3 completed Nyla bullard, [facility] 08/09/2023 17:56:04 COVID-19, mRNA, LNP-S, bivalent, PF, 30 mcg/0.3 mL dose 3 completed Nyla bullard, [facility] 08/12/2023 11:51:52 Past Encounters Encounter ID Performer Location Encounter Start Date Encounter Closed Date Diagnosis/Indication Diagnosis SNOMED-CT Code Diagnosis ICD10 Code Diagnosis Note [id number] Gail Goncalves NP [address] [address] 07/15/2024 09:21:48 07/16/2024 11:16:06 Open wound of left foot [id number] S91.302A Left diabetic foot ulcer with 4th and 5th metartarsa l amp wiht open left foot wound with notable bone, tendon, and tissue exposed now starting to heal inplan from [facility] Dr MENDOZA:ns g to make fu with Dr Mendoza at [facility] surgeons IN 1-2 WEEKSwound team to follow heredaily silver alginate to bilateral lower extremity wounds with dry clean dressingco mpression prn for worsening bleeding, seems to be helpingcom plete 6 weeks of IV rocephin 2gram qd end date 08/12/24-ox ycodone 5 mg po q 6 hours prn pain-picc to right chest ([facility] ER confirmed this is a picc to right chest in paperwork) not in either armof note: paytno placed on 07/07/24 during hospitaliz ation to right chestdue to above will use picc protocol here and have IR or PICC service remove at end of abx course, not to have nursing remove herecbc and bmp weekly and prn if bleeding worsenssee wound note Sepsis 34436511 A41.9 see above Osteomyeli tis of left foot 1651363079 646941 M86.9 see above Diabetic foot ulcer 3710 95114 L97.518 chronic wound, with noncomplia nce to diet and fluid restrictio n and labs in pastElecti ve skin graft attempted at [facility] x 2, both did not take. no skin graft on this past admission[facility] [place] [facility] [place] [facility] n[facility]ue [facility] surgical eval and tx.Also followed by Wound PA-C in house for local care and debridemen t prnContinu e local wound careTubigr ip for gentle compressio nMonitor VS, labsMainta in glucose control.se e wound note Chronic ki dney disease stage 3A 566548923 N18.31 Stable at new baseline.C ontinue to avoid nephrotoxi c meds as able.F/U with renal, Dr. Alonzo, prn.Acute on Chronic AKIoff diuretics at this timecurren tly on metformin 750 mg po qdMonitor for N/V/DFollo w up [facility] Renal Dr. Alonzo as needed.Alex id nephrotoxi csmonitor closely and see above management labs cbc with diff, bmp, esr, crp, ck, level on wednesdays Type 2 vanda betes mellitus with peripheral angiopathy 692657344 E11.52 E11.42 Continue:T resiba 20U qammounjar o 5mg sc q thursmetfo rmin 750 mg po dailyLispr o per sliding scaleqhs snackConti nue to trend BS and A1Cs Peripheral edema 3216787 00 R60.9 peripheral edema stable with stacy wraps, not on diuretics at this time.consi erik low dose diuretic prnMonitor closely Anemia 862624386 D64.89 has anemia now with open left foot wound amp of 4th and 5th toes and bleeding more controlled with stacy compressio nnsg to monitor bleeding and apply pressure dressings prnMonitor ing CBC weekly for now on wednesdays see above [id number] Gail Goncalves NP [address] [address] 07/22/2024 13:31:36 07/24/2024 10:39:24 Open wound of left foot 1324685802 1374222 S91.302A Left diabetic foot ulcer with 4th and 5th metatarsal amp with open left foot wound with notable bone, tendon, and tissue exposedpla n from [facility] Dr MENDOZA:stephany sorenson to make fu with Dr Mendoza at [facility] surgeons IN 1-2 WEEKSwound team to follow heredaily silver alginate to bilateral lower extremity wounds with dry clean dressing and stacy wrapcompre ssion prn for worsening bleeding, seems to be helpingcom plete 6 weeks of IV rocephin 2gram qd end date 08/12/24-ox ycodone 5 mg po q 6 hours prn pain-picc to right chest ([facility] ER confirmed this is a picc to right chest in paperwork) not in either armof note: payton placed on 07/07/24 during hospitaliz ation to right chestdue to above will use picc protocol here and have IR or PICC service remove at end of abx course, not to have nursing remove herecbc and bmp weekly and prn if bleeding worsenssee wound note Sepsis 77589603 A41.9 see above Osteomyeli tis of left foot 0773650009 545414 M86.9 see above Diabetic foot ulcer 3710 52203 L97.518 chronic wound with increased bleeding today, with noncomplia nce to diet and fluid restrictio n and labs in pastElecti ve skin graft attempted at [facility] x 2, both did not take. no skin graft on this past admissionh [place] [facility] hospital[place] ntinue [facility] surgical eval and tx.followe d by Wound PA-C in house for local care and debridemen t prnContinu e local wound care, stacy wrap for compressio n for bleedingMo nitor VS, labsMainta in glucose control.se e wound note weeklylabs trended Chronic ki dney disease stage 3A 409800259 N18.31 Stable at new baseline.C ontinue to avoid nephrotoxi c meds as able.F/U with renal, Dr. Alonzo, prn.Acute on Chronic AKIoff diuretics at this timecontme tformin 750 mg po qdFollow up wt Renal Dr. Alonzo as needed.Alex id nephrotoxi csmonitor closely and see above management labs cbc with diff, bmp, esr, crp, ck, level on wednesdays Type 2 vanda betes mellitus with peripheral angiopathy 004144463 E11.52 E11.42 Continue:T resiba 20U qammounjar o 5mg sc q thursmetfo rmin 750 mg po dailyLispr o per sliding scaleqhs snackConti nue to trend BS and A1Cs and adjust for ckd prn Peripheral edema 5794991 00 R60.9 peripheral edema stable with stacy wraps, not on diuretics at this time.consi erik low dose diuretic prnMonitor closely Anemia 571347335 D64.89 has anemia now with open left foot wound amp of 4th and 5th toes and bleeding more controlled with stacy compressio nnsg to monitor bleeding and apply pressure dressings prnMonitor ing CBC weekly for now on wednesdays see above Congestive heart failure 57697300 I50.22 hx ofAppetite great, not clear if water weight with recent weight increasehx . of diet noncomplia nce.Not on diuretics at this time, but may need to consider.M aintain meds for BP controlMon itor closely for decompensa tion. Depressive disorder 3548 9007 F33.0 Continuees citalopram 10 mg dailyMonit or mood, behaviors Dyslipidemia 470392592 E 78.49 Continueze tia 10 mg dailysimva statin 40 mg dailyfenof ibrate 54 mg dailyCheck LFTs, lipid panel prn Essential hypertension 35408652 I10 Continue:l isinopril 10 mg qdamlodipi ne 10 mg qdMonitor BP and labs. [id number] Gail Goncalves NP [facility] [address] [address] 08/05/2024 13:20:08 08/06/2024 13:45:32 Open wound of left foot 7023544477 7646988 S91.302A Left diabetic foot ulcer with 4th and 5th metatarsal amp with open left foot wound with notable bone, tendon, and tissue exposedpla n from [facility] Dr MENDOZA:ns g to make fu with Dr Mendoza at [facility] surgeons IN 1-2 WEEKSwound team to follow heredaily silver alginate to bilateral lower extremity wounds with dry clean dressing and stacy wrapcompre ssion prn for worsening bleeding, seems to be helpingcom plete 6 weeks of IV rocephin 2gram qd end date 08/12/24-ox ycodone 5 mg po q 6 hours prn pain-picc to right chest ([facility] confirmed this is a picc to [...] nonhealing ulcer Osteomyeli tis of left foot 1462636225 144799 M86.9 see below Diabetic foot ulcer 3710 64648 L97.518 chronic wound with increased bleeding today, with noncomplia nce to diet and fluid restrictio n and labs in pastElecti ve skin graft attempted at [facility] x 2, both did not takehad [facility]idemen [place] [facility] [place] [facility] [facility]ue [facility] surgical eval and tx.followe d by Wound PA-C in house for local care and debridemen t prnContinu e local wound care, stacy wrap for compressio n for bleedingMo nitor VS, labsMainta in glucose control.se e wound note weeklylabs trended Sepsis 43405542 A41.9 resolvedse e abovebmp and cbc weekly Chronic ki dney disease stage 3A 568359413 N18.31 Stable at new baseline as aboveConti nue to avoid nephrotoxi c meds as able.F/U with renal, Dr. Alonzo, prn.Acute on Chronic AKIoff diuretics at this timecontme tformin 750 mg po qdFollow up [facility] Alonzo as needed.Alex id nephrotoxi csmonitor closely and see above management labs cbc with diff, bmp, esr, crp, ck, level on wednesdays Type 2 vanda betes mellitus with peripheral angiopathy 624628612 E11.52 E11.42 Continue:T resiba 20U qammounjar o 5mg sc q thursmetfo rmin 750 mg po dailyLispr o per sliding scaleqhs snackConti nue to trend BS and A1Cs and adjust for ckd prn Peripheral edema 5281293 00 R60.9 peripheral edema stable with stacy wraps, not on diuretics at this time.consi erik low dose diuretic prnMonitor closely [id number] ARTURO PAZ NP [address] [address] 08/12/2024 15:53:50 08/12/2024 16:09:25 Osteomyelitis of left foot 2827326616 077544 M86.9 see below Open wound of left foot 2141764942 0287792 S91.302A Left diabetic foot ulcer with 4th [...] 6 hours prn pain-picc to right chest ([facility] ER confirmed this is a picc to right chest in paperwork) not in either armof note: payton placed on 07/07/24 during hospitaliz ation to right chestdue to above will use picc protocol here and have IR or PICC service remove at end of abx course, not to have nursing remove here Diabetic foot ulcer 3710 75243 L97.518 chronic wound, concern of worsening per wound eval today by wound team.see above, has follow up with Dr. Mendoza saturday.For now continue current POC as outlined above. Sepsis 58384975 A41.9 resolvedse e abovebmp and cbc weekly Chronic ki dney disease stage 3A 443933855 N18.31 Stable at new baseline as aboveConti nue to avoid nephrotoxi c meds as able.F/U with renal, Dr. Alonzo, prn.labs cbc with diff, bmp, esr, crp, ck, level on wednesdays Type 2 vanda betes mellitus with peripheral angiopathy 568843521 E11.52 E11.42 Decent control, BS mostly 100s, occ. 200sContin ue:Tresiba 20U qammounjar o 5mg sc q thursmetfo rmin 750 mg po dailyLispr o per sliding scaleqhs snackConti nue to trend BS and A1Cs and adjust for ckd prn Peripheral edema 1385445 00 R60.9 peripheral edema stable with stacy wraps, not on diuretics at this time.consi erik low dose diuretic prnMonitor closely Health Concerns Section Related Observation LastModified by Organization Detai ls LastModified Time None Recorded Concern Status LastModified by Organization Details LastModified Time None Recorded Payers Encounter Date Sequence Insurance Name Policy Number Policy Meza Covered Member ID Meza Member ID Guarantor Name 08/12/2024 1 [place] [employer] A Devin Montanez [id number] Mehul Beltran 08/12/2024 2 [place] [facility] Mehul Beltran [id number] Mehul Beltran Notes Date Note Type Note Provider Name and Address Organization Details Recorded Time 08/12/2024 text/html Mehul is seen today for an acute visit. This is a 53 yo man, LTC resident, currently with poorly healing ulcers on B feet. Has undergone amputations and continues with daily wound care.He is followed by the Wound Team here as well as Dr. Mendoza at [facility].Case discussed with nsg. today, who report his foot wounds are not looking well; he has an appt. with surgery on Saturday for eval. Current tx. is collagen and alginate AG with DCD qd and prn. VSS.Labs 2 with bump in ESR/CRP.BS 100s, occ. 200s. [...] fu with surgeon. ARTURO PAZ NP [address], [address], [place], [address], [facility] 08/12/2024 16:09:24
--- OUTSIDE RECORDS SUMMARY | 2024-08-14 09:52 | XMS_ITS | Clinical Summary ---
Author Organization [address] Address [address] [place] [address] Phone Care Team Providers Care Larder Cook Name Role Phone Isai Reaves MD Primary Care Provider [phone] Encounters Date Type Department Care Team Description 08/12/2024 Lab Requisition [facility] [address] [place] [phone] Isai Reaves MD Type 2 diabetes mellitus without complications (CMS/HCC); Osteomyelitis, unspecified (CMS/HCC); Hypothyroidism, unspecified; Hyperlipidemia, unspecified 08/11/2024 Lab Requisition [facility] [address] [place] [phone] Isai Reaves MD Type 2 diabetes mellitus without complications (CMS/HCC); Osteomyelitis, unspecified (CMS/HCC); Hypothyroidism, unspecified; Hyperlipidemia, unspecified 08/04/2024 Lab Requisition [facility] [address] [place] [phone] Isai Reaves MD Type 2 diabetes mellitus without complications (CMS/HCC); Osteomyelitis, unspecified (CMS/HCC); Hypothyroidism, unspecified; Hyperlipidemia, unspecified 07/28/2024 Lab Requisition [facility] [address] [place] [phone] Isai Reaves MD Hyperlipidemia, unspecified; Hypothyroidism, unspecified; Osteomyelitis, unspecified (CMS/HCC); Type 2 diabetes mellitus without complications (CMS/HCC) 07/21/2024 Lab Requisition [facility] [address] [place] [phone] Isai Reaevs MD Hyperlipidemia, unspecified; Hypothyroidism, unspecified; Osteomyelitis, unspecified (CMS/HCC); Type 2 diabetes mellitus without complications (CMS/HCC) 07/14/2024 Lab Requisition [facility] [address] [place] [phone] Isai Reaves MD Hyperlipidemia, unspecified; Hypothyroidism, unspecified; Osteomyelitis, unspecified (CMS/HCC); Type 2 diabetes mellitus without complications (CMS/HCC) 07/08/2024 Lab Requisition [facility] [address] [place] [phone] Isai Reaves MD Other long term care pharmacist (current) drug therapy 06/23/2024 Lab Requisition [facility] [address] [place] [phone] Isai Reaves MD Essential (primary) hypertension; Osteomyelitis, unspecified (CMS/HCC) 06/23/2024 Lab Requisition [facility] [address] [place] [phone] Isai Reaves MD Type 2 diabetes mellitus with unspecified complications (CMS/HCC) 06/22/2024 Lab Requisition [facility] [address] [place] [phone] Isai Reaves MD Type 2 diabetes mellitus without complications (CMS/HCC) 06/18/2024 Lab Requisition [facility] [address] [place] [phone] Isai Reaves MD Hypertensive heart disease with heart failure (CMS/HCC); Osteomyelitis, unspecified (CMS/HCC) from Last 3 Months Social History Tobacco Use Types Packs/Day Years Used Date Smoking Tobacco: Never Assessed Sex and Gender Information Value Date Recorded Sex Assigned at Not on file Legal Sex Male 8:57 PM EST Gender Identity Not on file Sexual Orientation Not on file Plan of Treatment Health Maintenance Due Date Last Done Comments Diabetes: Annual Foot Exam 09/03/1979 Diabetes: Annual Retina Eye Exam 09/03/1979 DTaP,Tdap,and Td Vaccines (1 - Tdap) 1988 Hepatitis B Vaccines (1 of 3 - 19+ 3-dose series) 1988 Pneumococcal Vaccine: 50+ Years (1 of 2 - PCV) 1988 Pneumococcal Vaccine: Pediatrics (0 to 5 Years) and At-Risk Patients (6 to 64 Years) (1 of 2 - PCV) 1988 Zoster Vaccines (1 of 2) 09/03/2019 Colorectal Cancer Screening: Colonoscopy 07/19/2023 Depression Screening 07/19/2023 HIV Screening 07/19/2023 Hepatitis C Screening 07/19/2023 Medicare Annual Wellness Visit 07/19/2023 Social Influencers of Health Screening 07/19/2023 COVID-19 Vaccine ( season) 2024 Influenza Vaccine (#1) 2024 Diabetes: Annual Urine Albumin-Creatinine Ratio (uACR) 04/25/2024 Diabetes: Blood Sugar Control Test (HGBA1C) 12/21/2024 06/23/2024 Diabetes: Annual GFR (Glomerular Filtration Rate) 08/13/2025 08/13/2024, 08/05/2024, 07/29/2024, Additional history exists Hypertension/CHF/CAD Annual BMP Blood Test 08/13/2025 08/13/2024, 08/05/2024, 07/29/2024, Additional history exists Cholesterol Screening (Lipid Panel) 04/27/2029 04/27/2024 HIB Vaccines Aged Out No longer eligi [...] on patient's age to complete this topic MMR Vaccines Aged Out No longer eligi ble based on patient's age to complete this topic Meningococcal ACWY Vaccine Aged Out N o longer eligible based on patient's age to complete this topic Meningococcal B Vacine Aged Out No lo nger eligible based on patient's age to complete this topic RSV Immunization Patients Under 20 months Aged Out No longer eligible based on patient's age to complete this topic Varicella Vaccines Aged Out No longer eligible based on patient's age to complete this topic Procedures Procedure Name Priority Date/Time Associated Diagnosis [...] Osteomyelitis, unspecified (CMS/HCC) Hypothyroidism, unspecified Hyperlipidemia, unspecified SEDIMENTATION RATE Routine 08/05/2024 6: 53 AM EST Type 2 diabetes mellitus without complications (CMS/HCC) Osteomyelitis, unspecified (CMS/HCC) Hypothyroidism, unspecified Hyperlipidemia, unspecified C-REACTIVE PROTEIN Routine 08/05/2024 6: 53 AM EST Type 2 diabetes mellitus without complications (CMS/HCC) Osteomyelitis, unspecified (CMS/HCC) Hypothyroidism, unspecified Hyperlipidemia, unspecified BASIC METABOLIC PANEL Routine 08/05/2024 6:53 AM EST Type 2 diabetes mellitus without complications (CMS/HCC) Osteomyelitis, unspecified (CMS/HCC) Hypothyroidism, unspecified Hyperlipidemia, unspecified COMPLETE BLOOD COUNT Routine 08/05/2024 6:53 AM EST Type 2 diabetes mellitus without complications (CMS/HCC) Osteomyelitis, unspecified (CMS/HCC) Hypothyroidism, unspecified Hyperlipidemia, unspecified SEDIMENTATION RATE Routine 07/29/2024 5: 19 AM EST Hyperlipidemia, unspecified Hypothyroidism, unspecified Osteomyelitis, unspecified (CMS/HCC) Type 2 diabetes mellitus without complications (CMS/HCC) C-REACTIVE PROTEIN Routine 07/29/2024 5: 19 AM EST Hyperlipidemia, unspecified Hypothyroidism, unspecified Osteomyelitis, unspecified (CMS/HCC) Type 2 diabetes mellitus without complications (CMS/HCC) BASIC METABOLIC PANEL Routine 07/29/2024 5:19 AM EST Hyperlipidemia, unspecified Hypothyroidism, unspecified Osteomyelitis, unspecified (CMS/HCC) Type 2 diabetes mellitus without complications (CMS/HCC) COMPLETE BLOOD COUNT Routine 07/29/2024 5:19 AM EST Hyperlipidemia, unspecified Hypothyroidism, unspecified Osteomyelitis, unspecified (CMS/HCC) Type 2 diabetes mellitus without complications (CMS/HCC) SEDIMENTATION RATE Routine 07/22/2024 8: 17 AM EST Hyperlipidemia, unspecified Hypothyroidism, unspecified Osteomyelitis, unspecified (CMS/HCC) Type 2 diabetes mellitus without complications (CMS/HCC) C-REACTIVE PROTEIN Routine 07/22/2024 8: 17 AM EST Hyperlipidemia, unspecified Hypothyroidism, unspecified Osteomyelitis, unspecified (CMS/HCC) Type 2 diabetes mellitus without complications (CMS/HCC) BASIC METABOLIC PANEL Routine 07/22/2024 8:17 AM EST Hyperlipidemia, unspecified Hypothyroidism, unspecified Osteomyelitis, unspecified (CMS/HCC) Type 2 diabetes mellitus without complications (CMS/HCC) COMPLETE BLOOD COUNT Routine 07/22/2024 8:17 AM EST Hyperlipidemia, unspecified Hypothyroidism, unspecified Osteomyelitis, unspecified (CMS/HCC) Type 2 diabetes mellitus without complications (CMS/HCC) SEDIMENTATION RATE Routine 07/15/2024 7: 43 AM [...] without complications (CMS/HCC) BASIC METABOLIC PANEL Routine 07/08/2024 5:10 AM EST Other intermediate (current) drug therapy COMPLETE BLOOD COUNT Routine 07/08/2024 5:10 AM EST Other intermediate (current) drug therapy CBC WITH AUTO DIFFERENTIAL Routine 06/25/2024 6:00 AM EST Essential (primary) hypertension Osteomyelitis, unspecified (CMS/HCC) C-REACTIVE PROTEIN Routine 06/25/2024 6: 00 AM EST Essential (primary) hypertension Osteomyelitis, unspecified (CMS/HCC) SEDIMENTATION RATE Routine 06/25/2024 6: 00 AM EST Essential (primary) hypertension Osteomyelitis, unspecified (CMS/HCC) BASIC METABOLIC PANEL Routine 06/25/2024 6:00 AM EST Essential (primary) hypertension Osteomyelitis, unspecified (CMS/HCC) CBC AND DIFFERENTIAL Routine 06/25/2024 6:00 AM EST Essential (primary) hypertension Osteomyelitis, unspecified (CMS/HCC) CBC WITH AUTO DIFFERENTIAL STAT 06/23/2024 6:21 AM EST Type 2 diabetes mellitus with unspecified complications (CMS/HCC) HEMOGLOBIN A1C STAT 06/23/2024 6:21 AM EST Type 2 diabetes mellitus with unspecified complications (CMS/HCC) BASIC METABOLIC PANEL STAT 06/23/2024 6:21 AM EST Type 2 diabetes mellitus with unspecified complications (CMS/HCC) CBC AND DIFFERENTIAL STAT 06/23/2024 6:21 AM EST Type 2 diabetes mellitus with unspecified complications (CMS/HCC) URINALYSIS WITH REFLEX MICROSCOPIC STAT 06/22/2024 2:00 PM EST Type 2 diabetes mellitus without complications (CMS/HCC) URINALYSIS WITH REFLEX MICROSCOPIC STAT 06/22/2024 2:00 PM EST Type 2 diabetes mellitus without complications (CMS/HCC) CULTURE URINE STAT 06/22/2024 2:00 PM EST Type 2 diabetes mellitus without complications (CMS/HCC) CBC WITH AUTO DIFFERENTIAL Routine 06/18/2024 7:25 AM EST Hypertensive heart disease with heart failure (CMS/HCC) Osteomyelitis, unspecified (CMS/HCC) C-REACTIVE PROTEIN Routine 06/18/2024 7: 25 AM EST Hypertensive heart disease with heart failure (CMS/HCC) Osteomyelitis, unspecified (CMS/HCC) SEDIMENTATION RATE Routine 06/18/2024 7: 25 AM EST Hypertensive heart disease with heart failure (CMS/HCC) Osteomyelitis, unspecified (CMS/HCC) BASIC METABOLIC PANEL Routine 06/18/2024 7:25 AM EST Hypertensive heart disease with heart failure (CMS/HCC) Osteomyelitis, unspecified (CMS/HCC) CBC AND DIFFERENTIAL Routine 06/18/2024 7:25 AM EST Hypertensive heart disease with heart failure (CMS/HCC) Osteomyelitis, unspecified (CMS/HCC) LIPID PANEL WITH REFLEX TO DIRECT LDL Routine 04/27/2024 6:34 AM EST Type 2 diabetes mellitus without complications (CMS/HCC) from Last 3 Months or Most Recently Relevant to Health Maintenance Results * (ABNORMAL) Sedimentation rate (08/13/2024 6:21 AM EST) Only the most recent of7 resultswithin the time period is included. Sed Rate 89(H) 0 - 20 mm/hr LAB HEMETOLOGY METHOD 08/13/2024 11:03 AM EST [facility] Blood Venous blood specimen / Unknown Venipuncture / Unknown 08/13/2024 6:21 AM EST 08/13/2024 9:31 AM EST us Isai Reaves MD LAB BLOOD ORDERABLES Final Resul t [facility] [address] [place] [address], [place] [phone] * (ABNORMAL) Complete blood count (08/13/2024 6:21 AM EST) Only the most recent of6 resultswithin the time period is included. WBC 7.5 4.8 - 10.8 K/mcL LAB HEMETOLOGY METHOD 08/13/2024 10:45 AM [facility] RBC 3.30(L) 4.50 - 5.50 M/mcL LAB HEMETOLOGY METHOD 08/13/2024 10:45 AM [facility] Hemoglobin 8.8(L) 13.5 - 17.5 g/dL LAB HEMETOLOGY METHOD 08/13/2024 10:45 AM [facility] Hematocrit 27.9(L) 42.0 - 54.0 % LAB HEMETOLOGY METHOD 08/13/2024 10:45 AM [facility] MCV 85.8 79.0 - 98.0 FL LAB HEMETOLOGY METHOD 08/13/2024 10:45 AM [facility] MCH 27.1 27.0 - 32.0 pcg LAB HEMETOLOGY METHOD 08/13/2024 10:45 AM [facility] MCHC 31.5(L) 32.0 - 37.0 g/dL LAB HEMETOLOGY METHOD 08/13/2024 10:45 AM [facility] RDW 13.3 11.0 - 15.0 % LAB HEMETOLOGY METHOD 08/13/2024 10:45 AM EST [facility] Platelets 262 130 - 400 K/mcL LAB HEMETOLOGY METHOD 08/13/2024 10:45 AM EST [facility] MPV 10.5 7.0 - 11.0 FL LAB HEMETOLOGY METHOD 08/13/2024 10:45 AM EST [facility] NRBC 0.0 <1.0 % LAB HEMETOLOGY METHOD 08/13/2024 10:45 AM EST [facility] NRBC Absolute 0.00 <0.10 K/mcL LAB HEMETOLOGY METHOD 08/13/2024 10:45 AM [facility] Blood Venous blood specimen / Unknown Venipuncture / Unknown 08/13/2024 6:21 AM EST 08/13/2024 9:31 AM EST Isai Reaves MD LAB BLOOD ORDERABLES Final Resul t [facility] [address] [place] [address], [place] [phone] * (ABNORMAL) C-reactive protein (08/13/2024 6:21 AM EST) Only the most recent of7 resultswithin the time period is included. C-Reactive Protein 1.59(H) <=0.50 mg/dL LAB CHEMISTRY METHOD 08/13/2024 10:55 AM EST [facility] Blood Venous blood specimen / Unknown Venipuncture / Unknown 08/13/2024 6:21 AM EST 08/13/2024 9:31 AM EST Isai Reaves MD LAB BLOOD ORDERABLES Final Resul t [facility] [address] [place] [address], [place] [phone] * (ABNORMAL) Basic metabolic panel (08/13/2024 6:21 AM EST) Only the most recent of9 resultswithin the time period is included. Sodium 135 133 - 145 mmol/L LAB CHEMISTRY METHOD 08/13/2024 10:50 AM [facility] Potassium 4.9 3.5 - 5.5 mmol/L LAB CHEMISTRY METHOD 08/13/2024 10:50 AM [facility] Chloride 105 96 - 110 mmol/L LAB CHEMISTRY METHOD 08/13/2024 10:50 AM [facility] CO2 27 21 - 32 mmol/L LAB CHEMISTRY METHOD 08/13/2024 10:50 AM [facility] Anion Gap 3 3 - 11 LAB CHEMISTRY METHOD 08/13/2024 10:50 AM [facility] Glucose 201(H) 70 - 100 mg/dL LAB CHEMISTRY METHOD 08/13/2024 10:50 AM [facility] BUN 31(H) 5 - 25 mg/dL LAB CHEMISTRY METHOD 08/13/2024 10:50 AM [facility] Creatinine 1.48(H) 0.70 - 1.30 mg/dL LAB CHEMISTRY METHOD 08/13/2024 10:50 AM [facility] eGFR 56(L) >=60 mL/min/1. 73m2 LAB CHEMISTRY METHOD 08/13/2024 10:50 AM [facility] Comment:Calculation based on the??Chronic Kidney Disease Epidemiology Collaboration (CKD-EPI) equation refit??without adjustment for race. BUN/Creatinine Ratio 20.9 LAB CHEMISTRY METHOD 08/13/2024 10:50 AM [facility] Calcium 8.5 8.5 - 10.5 mg/dL LAB CHEMISTRY METHOD 08/13/2024 10:50 AM [facility] Blood Venous blood specimen / Unknown Venipuncture / Unknown 08/13/2024 6:21 AM EST 08/13/2024 9:31 AM EST us Isai Reaves MD LAB BLOOD ORDERABLES Final Resul t [facility] [address] [place] [address], [place] [phone] * (ABNORMAL) CBC auto differential (06/25/2024 6:00 AM EST) Only the most recent of3 resultswithin the time period is included. WBC 13.0(H) 4.8 - 10.8 K/mcL LAB HEMETOLOGY METHOD 06/25/2024 10:57 AM [facility] RBC 2.90(L) 4.50 - 5.50 M/mcL LAB HEMETOLOGY METHOD 06/25/2024 10:57 AM [facility] Hemoglobin 7.8(L) 13.5 - 17.5 g/dL LAB HEMETOLOGY METHOD 06/25/2024 10:57 AM [facility] Hematocrit 24.6(L) 42.0 - 54.0 % LAB HEMETOLOGY METHOD 06/25/2024 10:57 AM [facility] MCV 86.0 79.0 - 98.0 FL LAB HEMETOLOGY METHOD 06/25/2024 10:57 AM [facility] MCH 27.3 27.0 - 32.0 pcg LAB HEMETOLOGY METHOD 06/25/2024 10:57 AM [facility] MCHC 31.7(L) 32.0 - 37.0 g/dL LAB HEMETOLOGY METHOD 06/25/2024 10:57 AM [facility] RDW 13.1 11.0 - 15.0 % LAB HEMETOLOGY METHOD 06/25/2024 10:57 AM [facility] Platelets 259 130 - 400 K/mcL LAB HEMETOLOGY METHOD 06/25/2024 10:57 AM [facility] MPV 10.9 7.0 - 11.0 FL LAB HEMETOLOGY METHOD 06/25/2024 10:57 AM [facility] NRBC 0.0 <1.0 % LAB HEMETOLOGY METHOD 06/25/2024 10:57 AM [facility] NRBC Absolute 0.00 <0.10 K/mcL LAB HEMETOLOGY METHOD 06/25/2024 10:57 AM [facility] Neutrophils Relative 78.7 % LAB HEMETOLOGY METHOD 06/25/2024 10:57 AM [facility] Lymphocytes Relative 9.0 % LAB HEMETOLOGY METHOD 06/25/2024 10:57 AM [facility] Monocytes Relative 8.6 % LAB HEMETOLOGY METHOD 06/25/2024 10:57 AM [facility] Eosinophils Relative 2.8 % LAB HEMETOLOGY METHOD 06/25/2024 10:57 AM [facility] Basophils Relative 0.4 % LAB HEMETOLOGY METHOD 06/25/2024 10:57 AM [facility] Immature Granulocytes Relative 0.5 % LAB HEMETOLOGY METHOD 06/25/2024 10:57 AM [facility] Neutrophils Absolute 10.21(H) 1.50 - 7.00 K/mcL LAB HEMETOLOGY METHOD 06/25/2024 10:57 AM [facility] Lymphocytes Absolute 1.17 1.00 - 5.00 K/mcL LAB HEMETOLOGY METHOD 06/25/2024 10:57 AM [facility] Monocytes Absolute 1.12(H) 0.20 - 1.00 K/mcL LAB HEMETOLOGY METHOD 06/25/2024 10:57 AM [facility] Eosinophils Absolute 0.36 0.00 - 0.50 K/mcL LAB HEMETOLOGY METHOD 06/25/2024 10:57 AM EST [facility] Basophils Absolute 0.05 0.00 - 0.20 K/[facility] LAB HEMETOLOGY METHOD 06/25/2024 10:57 AM EST [facility] Immature Granulocytes Absolute 0.07(H) 0.00 - 0.03 K/[facility] LAB HEMETOLOGY METHOD 06/25/2024 10:57 AM EST [facility] Blood Venous blood specimen / Unknown Venipuncture / Unknown 06/25/2024 6:00 AM EST 06/25/2024 9:42 AM EST us Isai Reaves MD LAB BLOOD ORDERABLES Final Resul t Performing Organization Address [facility]/ZIP Co de Phone Number [facility] [address] [place] [address], [place] [phone] * (ABNORMAL) Hemoglobin A1c (06/23/2024 6:21 AM EST) Hemoglobin A1C 9.3(H) <6.5 % LAB CHEMISTRY METHOD 06/23/2024 1:44 PM EST [facility] Mean Bld Glu Estim. 220 mg/dL LAB CHEMISTRY METHOD 06/23/2024 1:44 PM EST [facility] Blood Venous blood specimen / Unknown Venipuncture / Unknown 06/23/2024 6:21 AM EST 06/23/2024 9:45 AM EST us Isai Reaves MD LAB BLOOD ORDERABLES Final Resul t [facility] [address] [place] [address], [place] [phone] * (ABNORMAL) Urinalysis with reflex microscopic (06/22/2024 2:00 PM EST) Specific Orange Urine 1.021 1.003 - 1.030 LAB URINALYSIS - AUTOMATED METHOD 06/22/2024 7:27 PM [facility] pH, Urine 5.5 5.0 - 8.0 pH LAB URINALYSIS - AUTOMATED METHOD 06/22/2024 7:27 PM [facility] Leukocytes, Urine Negative Negative LAB URINALYSIS - AUTOMATED METHOD 06/22/2024 7:27 PM [facility] Nitrite, Urine Negative Negative LAB URINALYSIS - AUTOMATED METHOD 06/22/2024 7:27 PM [facility] Protein, Urine 100(A) <=Trace mg/dL LAB URINALYSIS - AUTOMATED METHOD 06/22/2024 7:27 PM [facility] Glucose, Urine >=1000(A) Negative mg/dL LAB URINALYSIS - AUTOMATED METHOD 06/22/2024 7:27 PM [facility] Ketones, Urine Negative Negative mg/dL LAB URINALYSIS - AUTOMATED METHOD 06/22/2024 7:27 PM [facility] Urobilinogen , Urine 1.0 0.2 - 1.0 mg/dL LAB URINALYSIS - AUTOMATED METHOD 06/22/2024 7:27 PM [facility] Bilirubin, Urine Negative Negative LAB URINALYSIS - AUTOMATED METHOD 06/22/2024 7:27 PM [facility] Blood, Urine Negative Negative LAB URINALYSIS - AUTOMATED METHOD 06/22/2024 7:27 PM [facility] RBC, Urine 4.3(H) 0 - 4 /HPF LAB URINALYSIS - AUTOMATED METHOD 06/22/2024 7:27 PM [facility] WBC, Urine 4.6(H) 0 - 4 /HPF LAB URINALYSIS - AUTOMATED METHOD 06/22/2024 7:27 PM [facility] Squamous Epithelial, Urine 8 0 - 60 /LPF LAB URINALYSIS - AUTOMATED METHOD 06/22/2024 7:27 PM [facility] Bacteria, Urine Negative Negative /HPF LAB URINALYSIS - AUTOMATED METHOD 06/22/2024 7:27 PM [facility] Hyaline Casts, Urine 0.0 0 - 3 /LPF LAB URINALYSIS - AUTOMATED METHOD 06/22/2024 7:27 PM [facility] Urine Urine specimen obtained by clean catch procedure / Unknown 06/22/2024 2:00 PM EST 06/22/2024 6:31 PM EST Isai Reaves MD LAB URINE ORDERABLES Final Resul t [facility] [address] [place] [address], [place] [phone] * Culture urine (06/22/2024 2:00 PM EST) Culture, Urine <10,000 CFU/mL gram positive cocci, insignificant count, no further workup 06/23/2024 1:34 PM [facility] Urine Urine specimen obtained by clean catch procedure / Unknown 06/22/2024 2:00 PM EST 06/22/2024 6:31 PM EST us Isai Reaves MD LAB MICROBIOLOGY - GENERAL ORDER ALMA DELIA Final Result [facility] [address] [place] [address], [place] [phone] * Lipid panel with reflex to direct LDL (04/27/2024 6:34 AM EST) Cholesterol 111 0 - 200 mg/dL LAB CHEMISTRY METHOD 04/27/2024 11:01 AM [facility] Triglycerides 92 0 - 150 mg/dL LAB CHEMISTRY METHOD 04/27/2024 11:01 AM [facility] HDL 42 >=40 mg/dL LAB CHEMISTRY METHOD 04/27/2024 11:01 AM [facility] LDL Calculated 51 0 - 100 mg/dL LAB CHEMISTRY METHOD 04/27/2024 11:01 AM EST [facility] VLDL Cholesterol Fabian 18.4 mg/dL LAB CHEMISTRY METHOD 04/27/2024 11:01 AM [facility] Non HDL Chol. (LDL+VLDL) 69 <145 mg/dL LAB CHEMISTRY METHOD 04/27/2024 11:01 AM [facility] Chol/HDL Ratio 2.6 0.0 - 4.4 LAB CHEMISTRY METHOD 04/27/2024 11:01 AM [facility] Blood Venous blood specimen / Unknown Venipuncture / Unknown 04/27/2024 6:34 AM EST 04/27/2024 9:44 AM EST us Isai Reaves MD LAB BLOOD ORDERABLES Final Resul t [facility] [address] [place] [address], [place] [phone] from Last 3 Months or Most Recently Relevant to Health Maintenance Insurance MEDICARE MEDICAID - [place] Care Teams Larder Cook Relationship Specialty Start Date End Date Isai Reaves MD [address] [place] [address], [phone] PCP - General Family Medicine 05/08/24
--- OUTSIDE RECORDS SUMMARY | 2024-08-14 09:52 | XMS_ITS | Encounter Summary ---
Author Organization [employer] [facility] Address [address] [place] [address] Care Team Providers Care Insole Taper Name Role Phone Isai Reaves MD Primary Care Provider [phone] Encounter Details Date Type Department Care Team (Late st Contact Info) Description 08/11/2024 Lab Requisition [facility] - Main Lab [address] [facility] [place] [address] Isai Reaves MD [address] [place] [address] [address] [place], [phone] Type 2 diabetes mellitus without complications (CMS/HCC); [...] documented as of this encounter Visit Diagnoses Diagnosis Type 2 diabetes mellitus without complications (CMS/HCC) Osteomyelitis, unspecified (CMS/HCC) Hypothyroidism, unspecified Hyperlipidemia, unspecified documented in this encounter Care Teams Insole Taper Relationship Specialty Start Date End Date Isai Reaves MD [address] [place] [address] [address] [place], [phone] PCP - General Family Medicine 05/08/24 documented as of this encounter
--- OUTSIDE RECORDS SUMMARY | 2024-08-14 09:52 | XMS_ITS | Encounter Summary ---
Author Organization [employer] Address [address] [place] [address] Care Team Providers Care Plant Mechanic Name Role Phone Isai Reaves MD Primary Care Provider [phone] Encounter Details Date Type Department Care Team (Late st Contact Info) Description 06/23/2024 Lab Requisition [facility] - Main Lab [address] [facility] [place] [address] Isai Reaves MD [address] [place] [address] [address] [place], [phone] Essential (primary) hypertension; Osteomyelitis, unspecified (CMS/HCC) Social History Tobacco Use Types Packs/Day [...] Procedure Name Priority Date/Time Associated Diagnosis Comments CBC WITH AUTO DIFFERENTIAL Routine 06/25/2024 6:00 [...] EST Essential (primary) hypertension Osteomyelitis, unspecified (CMS/HCC) documented in this encounter Results * (ABNORMAL) CBC auto differential (06/25/2024 6:00 AM EST) [facility] Signature WBC 13.0(H) 4.8 - 10.8 K/mcL LAB HEMETOLOGY METHOD 06/25/2024 10:57 AM [facility] LAB RBC 2.90(L) 4.50 - 5.50 M/mcL LAB HEMETOLOGY METHOD 06/25/2024 10:57 AM [facility] LAB Hemoglobin 7.8(L) 13.5 - 17.5 g/dL LAB HEMETOLOGY METHOD 06/25/2024 10:57 AM [facility] LAB Hematocrit 24.6(L) 42.0 - 54.0 % LAB HEMETOLOGY METHOD 06/25/2024 10:57 AM [facility] LAB MCV 86.0 79.0 - 98.0 FL LAB HEMETOLOGY METHOD 06/25/2024 10:57 AM [facility] LAB MCH 27.3 27.0 - 32.0 pcg LAB HEMETOLOGY METHOD 06/25/2024 10:57 AM [facility] LAB MCHC 31.7(L) 32.0 - 37.0 g/dL LAB HEMETOLOGY METHOD 06/25/2024 10:57 AM [facility] LAB RDW 13.1 11.0 - 15.0 % LAB HEMETOLOGY METHOD 06/25/2024 10:57 AM [facility] LAB Platelets 259 130 - 400 K/mcL LAB HEMETOLOGY METHOD 06/25/2024 10:57 AM [facility] LAB MPV 10.9 7.0 - 11.0 FL LAB HEMETOLOGY METHOD 06/25/2024 10:57 AM [facility] LAB NRBC 0.0 <1.0 % LAB HEMETOLOGY METHOD 06/25/2024 10:57 AM [facility] LAB NRBC Absolute 0.00 <0.10 K/mcL LAB HEMETOLOGY METHOD 06/25/2024 10:57 AM [facility] LAB Neutrophils Relative 78.7 % LAB HEMETOLOGY METHOD 06/25/2024 10:57 AM [facility] LAB Lymphocytes Relative 9.0 % LAB HEMETOLOGY METHOD 06/25/2024 10:57 AM [facility] LAB Monocytes Relative 8.6 % LAB HEMETOLOGY METHOD 06/25/2024 10:57 AM [facility] LAB Eosinophils Relative 2.8 % LAB HEMETOLOGY METHOD 06/25/2024 10:57 AM [facility] LAB Basophils Relative 0.4 % LAB HEMETOLOGY METHOD 06/25/2024 10:57 AM [facility] LAB Immature Granulocytes Relative 0.5 % LAB HEMETOLOGY METHOD 06/25/2024 10:57 AM [facility] LAB Neutrophils Absolute 10.21(H) 1.50 - 7.00 K/mcL LAB HEMETOLOGY METHOD 06/25/2024 10:57 AM [facility] LAB Lymphocytes Absolute 1.17 1.00 - 5.00 K/mcL LAB HEMETOLOGY METHOD 06/25/2024 10:57 AM [facility] LAB Monocytes Absolute 1.12(H) 0.20 - 1.00 K/mcL LAB HEMETOLOGY METHOD 06/25/2024 10:57 AM [facility] LAB Eosinophils Absolute 0.36 0.00 - 0.50 K/mcL LAB HEMETOLOGY METHOD 06/25/2024 10:57 AM [facility] LAB Basophils Absolute 0.05 0.00 - 0.20 K/mcL LAB HEMETOLOGY METHOD 06/25/2024 10:57 AM [facility] LAB Immature Granulocytes Absolute 0.07(H) 0.00 - 0.03 K/mcL LAB HEMETOLOGY METHOD 06/25/2024 10:57 AM EST [facility] LAB Blood Venous blood specimen / Unknown Venipuncture / Unknown 06/25/2024 6:00 AM EST 06/25/2024 9:42 AM EST us Isai Reaves MD LAB BLOOD ORDERABLES Final Resul t Performing Organization Address [facility] Co de Phone Number [facility] [address] [place] [address], [place] [phone] * (ABNORMAL) C-reactive protein (06/25/2024 6:00 AM EST) C-Reactive Protein 16.90(H) <=0.50 mg/dL LAB CHEMISTRY METHOD 06/25/2024 11:42 AM EST [facility] Blood Venous blood specimen / Unknown Venipuncture / Unknown 06/25/2024 6:00 AM EST 06/25/2024 9:38 AM EST us Isai Reaves MD LAB BLOOD ORDERABLES Final Resul t Performing Organization Address [facility] de Phone Number [facility] [address] [place] [address], [place] [phone] * (ABNORMAL) Sedimentation rate (06/25/2024 6:00 AM EST) Sed Rate 86(H) 0 - 20 mm/hr LAB HEMETOLOGY METHOD 06/25/2024 10:40 AM EST [facility] Blood Venous blood specimen / Unknown Venipuncture / Unknown 06/25/2024 6:00 AM EST 06/25/2024 9:42 AM EST us Isai Reaves MD LAB BLOOD ORDERABLES Final Resul t Performing Organization Address City/[facility] Co de Phone Number [facility] [address] [place] [address], [place] [phone] * (ABNORMAL) Basic metabolic panel (06/25/2024 6:00 AM EST) Sodium 133 133 - 145 mmol/L LAB CHEMISTRY METHOD 06/25/2024 11:37 AM [facility] Potassium 4.4 3.5 - 5.5 mmol/L LAB CHEMISTRY METHOD 06/25/2024 11:37 AM [facility] Chloride 106 96 - 110 mmol/L LAB CHEMISTRY METHOD 06/25/2024 11:37 AM [facility] CO2 20(L) 21 - 32 mmol/L LAB CHEMISTRY METHOD 06/25/2024 11:37 AM [facility] Anion Gap 7 3 - 11 LAB CHEMISTRY METHOD 06/25/2024 11:37 AM [facility] Glucose 188(H) 70 - 100 mg/dL LAB CHEMISTRY METHOD 06/25/2024 11:37 AM [facility] BUN 32(H) 5 - 25 mg/dL LAB CHEMISTRY METHOD 06/25/2024 11:37 AM [facility] Creatinine 1.83(H) 0.70 - 1.30 mg/dL LAB CHEMISTRY METHOD 06/25/2024 11:37 AM [facility] LAB eGFR 43(L) >=60 mL/min/1. 73m2 LAB CHEMISTRY METHOD 06/25/2024 11:37 AM [facility] LAB Comment:Calculation based on the??Chronic Kidney Disease Epidemiology Collaboration (CKD-EPI) equation refit??without adjustment for race. BUN/Creatinine Ratio 17.5 LAB CHEMISTRY METHOD 06/25/2024 11:37 AM [facility] Calcium 7.5(L) 8.5 - 10.5 mg/dL LAB CHEMISTRY METHOD 06/25/2024 11:37 AM [facility] Blood Venous blood specimen / Unknown Venipuncture / Unknown 06/25/2024 6:00 AM EST 06/25/2024 9:38 AM EST us Isai Reaves MD LAB BLOOD ORDERABLES Final Resul t [facility] ([facility]) [facility] [address] [place] [address], documented in this encounter Visit Diagnoses Diagnosis Essential (primary) hypertension Unspecified essential hypertension Osteomyelitis, unspecified (CMS/HCC) documented in this encounter Care Teams Plant Mechanic Relationship Specialty Start Date End Date Isai Reaves MD [address] [place] [address] [address] [place], [phone] PCP - General Family Medicine 05/08/24 documented as of this encounter
--- OUTSIDE RECORDS SUMMARY | 2024-08-14 09:52 | XMS_ITS | Encounter Summary ---
Author Organization [facility] [facility] Address [address] [place] [address] Care Team Providers Care Director Of Acquisition Marketing Name Role Phone Isai Reaves MD Primary Care Provider [phone] Encounter Details Date Type Department Care Team (Late st Contact Info) Description 07/08/2024 Lab Requisition [facility] - Main Lab [address] [place] [address] Isai Reaves MD [address] [place] [address] [address] [place], [phone] Other solutions manager (current) drug therapy Social History Tobacco Use Types Packs/Day Years [...] Procedure Name Priority Date/Time Associated Diagnosis Comments COMPLETE BLOOD COUNT Routine 07/08/2024 5:10 AM EST Other solutions manager (current) drug therapy BASIC METABOLIC PANEL Routine 07/08/2024 5:10 AM EST Other care home (current) drug therapy documented in this encounter Results * (ABNORMAL) Basic metabolic panel (07/08/2024 5:10 AM EST) Sodium 137 133 - 145 mmol/L LAB CHEMISTRY METHOD 07/08/2024 8:44 AM EST [facility] Potassium 4.4 3.5 - 5.5 mmol/L LAB CHEMISTRY METHOD 07/08/2024 8:44 AM EST [facility] Chloride 105 96 - 110 mmol/L LAB CHEMISTRY METHOD 07/08/2024 8:44 AM [facility] CO2 25 21 - 32 mmol/L LAB CHEMISTRY METHOD 07/08/2024 8:44 AM [facility] LAB Anion Gap 7 3 - 11 LAB CHEMISTRY METHOD 07/08/2024 8:44 AM [facility] Glucose 151(H) 70 - 100 mg/dL LAB CHEMISTRY METHOD 07/08/2024 8:44 AM [facility] BUN 25 5 - 25 mg/dL LAB CHEMISTRY METHOD 07/08/2024 8:44 AM [facility] Creatinine 1.47(H) 0.70 - 1.30 mg/dL LAB CHEMISTRY METHOD 07/08/2024 8:44 AM [facility] LAB eGFR 56(L) >=60 mL/min/1. 73m2 LAB CHEMISTRY METHOD 07/08/2024 8:44 AM [facility] LAB Comment:Calculation based on the??Chronic Kidney Disease Epidemiology Collaboration (CKD-EPI) equation refit??without adjustment for race. BUN/Creatinine Ratio 17.0 LAB CHEMISTRY METHOD 07/08/2024 8:44 AM [facility] Calcium 8.3(L) 8.5 - 10.5 mg/dL LAB CHEMISTRY METHOD 07/08/2024 8:44 AM [facility] Blood Venous blood specimen / Unknown Venipuncture / Unknown 07/08/2024 5:10 AM EST 07/08/2024 7:55 AM EST us Isai Reaves MD LAB BLOOD ORDERABLES Final Resul t [facility] [address] [place] [address], * (ABNORMAL) Complete blood count (07/08/2024 5:10 AM EST) WBC 9.6 4.8 - 10.8 K/mcL LAB HEMETOLOGY METHOD 07/08/2024 8:23 AM [facility] RBC 3.50(L) 4.50 - 5.50 M/mcL LAB HEMETOLOGY METHOD 07/08/2024 8:23 AM [facility] Hemoglobin 9.5(L) 13.5 - 17.5 g/dL LAB HEMETOLOGY METHOD 07/08/2024 8:23 AM [facility] Hematocrit 30.2(L) 42.0 - 54.0 % LAB HEMETOLOGY METHOD 07/08/2024 8:23 AM [facility] LAB MCV 87.5 79.0 - 98.0 FL LAB HEMETOLOGY METHOD 07/08/2024 8:23 AM [facility] MCH 27.5 27.0 - 32.0 pcg LAB HEMETOLOGY METHOD 07/08/2024 8:23 AM [facility] LAB MCHC 31.5(L) 32.0 - 37.0 g/dL LAB HEMETOLOGY METHOD 07/08/2024 8:23 AM [facility] LAB RDW 13.5 11.0 - 15.0 % LAB HEMETOLOGY METHOD 07/08/2024 8:23 AM [facility] LAB Platelets 347 130 - 400 K/mcL LAB HEMETOLOGY METHOD 07/08/2024 8:23 AM [facility] MPV 10.0 7.0 - 11.0 FL LAB HEMETOLOGY METHOD 07/08/2024 8:23 AM [facility] LAB NRBC 0.0 <1.0 % LAB HEMETOLOGY METHOD 07/08/2024 8:23 AM [facility] LAB NRBC Absolute 0.00 <0.10 K/mcL LAB HEMETOLOGY METHOD 07/08/2024 8:23 AM [facility] Blood Venous blood specimen / Unknown Venipuncture / Unknown 07/08/2024 5:10 AM EST 07/08/2024 7:55 AM EST us Isai Reaves MD LAB BLOOD ORDERABLES Final Resul t [facility]) [facility] [address] [place] [address], documented in this encounter Visit Diagnoses Diagnosis Other solutions manager (current) drug therapy documented in this encounter Care Teams Director Of Acquisition Marketing Relationship Specialty Start Date End Date Isai Reaves MD [address] [place] [address] [address] [place], [phone] PCP - General Family Medicine 05/08/24 documented as of this encounter
--- OUTSIDE RECORDS SUMMARY | 2024-08-14 09:52 | XMS_ITS | Encounter Summary ---
Author Organization [employer] Address [address] [place] [address] Care Team Providers Care Cylinder Grinder Name Role Phone Isai Reaves MD Primary Care Provider [phone] Encounter Details Date Type Department Care Team (Late st Contact Info) Description 06/23/2024 Lab Requisition [facility] - Main Lab 299 [facility] [place] [address] Isai Reaves MD [address] [place] [address] [address] [place], [phone] Type 2 diabetes mellitus with unspecified complications (CMS/HCC) Social History Tobacco Use Types [...] Associated Diagnosis Comments CBC WITH AUTO DIFFERENTIAL STAT 06/23/2024 6:21 [...] 2 diabetes mellitus with unspecified complications (CMS/HCC) documented in this encounter Results * (ABNORMAL) CBC auto differential (06/23/2024 6:21 AM EST) WBC 10.6 4.8 - 10.8 K/mcL LAB HEMETOLOGY METHOD 06/23/2024 10:52 AM [facility] LAB RBC 3.10(L) 4.50 - 5.50 M/mcL LAB HEMETOLOGY METHOD 06/23/2024 10:52 AM [facility] LAB Hemoglobin 8.3(L) 13.5 - 17.5 g/dL LAB HEMETOLOGY METHOD 06/23/2024 10:52 AM [facility] LAB Hematocrit 26.2(L) 42.0 - 54.0 % LAB HEMETOLOGY METHOD 06/23/2024 10:52 AM [facility] LAB MCV 85.3 79.0 - 98.0 FL LAB HEMETOLOGY METHOD 06/23/2024 10:52 AM [facility] LAB MCH 27.0 27.0 - 32.0 pcg LAB HEMETOLOGY METHOD 06/23/2024 10:52 AM [facility] LAB MCHC 31.7(L) 32.0 - 37.0 g/dL LAB HEMETOLOGY METHOD 06/23/2024 10:52 AM [facility] LAB RDW 12.9 11.0 - 15.0 % LAB HEMETOLOGY METHOD 06/23/2024 10:52 AM [facility] LAB Platelets 235 130 - 400 K/mcL LAB HEMETOLOGY METHOD 06/23/2024 10:52 AM [facility] LAB MPV 11.1(H) 7.0 - 11.0 FL LAB HEMETOLOGY METHOD 06/23/2024 10:52 AM [facility] LAB NRBC 0.0 <1.0 % LAB HEMETOLOGY METHOD 06/23/2024 10:52 AM [facility] LAB NRBC Absolute 0.00 <0.10 K/mcL LAB HEMETOLOGY METHOD 06/23/2024 10:52 AM [facility] Neutrophils Relative 77.0 % LAB HEMETOLOGY METHOD 06/23/2024 10:52 AM [facility] Lymphocytes Relative 9.5 % LAB HEMETOLOGY METHOD 06/23/2024 10:52 AM [facility] Monocytes Relative 8.9 % LAB HEMETOLOGY METHOD 06/23/2024 10:52 AM [facility] Eosinophils Relative 3.4 % LAB HEMETOLOGY METHOD 06/23/2024 10:52 AM [facility] Basophils Relative 0.5 % LAB HEMETOLOGY METHOD 06/23/2024 10:52 AM [facility] Immature Granulocytes Relative 0.7 % LAB HEMETOLOGY METHOD 06/23/2024 10:52 AM [facility] Neutrophils Absolute 8.18(H) 1.50 - 7.00 K/mcL LAB HEMETOLOGY METHOD 06/23/2024 10:52 AM [facility] Lymphocytes Absolute 1.01 1.00 - 5.00 K/mcL LAB HEMETOLOGY METHOD 06/23/2024 10:52 AM [facility] Monocytes Absolute 0.95 0.20 - 1.00 K/mcL LAB HEMETOLOGY METHOD 06/23/2024 10:52 AM [facility] Eosinophils Absolute 0.36 0.00 - 0.50 K/mcL LAB HEMETOLOGY METHOD 06/23/2024 10:52 AM [facility] Basophils Absolute 0.05 0.00 - 0.20 K/mcL LAB HEMETOLOGY METHOD 06/23/2024 10:52 AM [facility] LAB Immature Granulocytes Absolute 0.07(H) 0.00 - 0.03 K/mcL LAB HEMETOLOGY METHOD 06/23/2024 10:52 AM [facility] Blood Venous blood specimen / Unknown Venipuncture / Unknown 06/23/2024 6:21 AM EST 06/23/2024 9:45 AM EST us Isai Reaves MD LAB BLOOD ORDERABLES Final Resul t Performing Organization Address [facility]/ZIP Co de Phone Number [facility] [address] [place] [address], [place] [phone] * (ABNORMAL) Hemoglobin A1c (06/23/2024 6:21 AM EST) Pathologist [facility] Hemoglobin A1C 9.3(H) <6.5 % LAB CHEMISTRY METHOD 06/23/2024 1:44 PM EST [facility] Mean Bld Glu Estim. 220 mg/dL LAB CHEMISTRY METHOD 06/23/2024 1:44 PM [facility] Blood Venous blood specimen / Unknown Venipuncture / Unknown 06/23/2024 6:21 AM EST 06/23/2024 9:45 AM EST Isai Reaves MD LAB BLOOD ORDERABLES Final Resul t Performing Organization Address [facility]/ZIP Co de Phone Number [facility] [address] [place] [address], [place] [phone] * (ABNORMAL) Basic metabolic panel (06/23/2024 6:21 AM EST) Pathologist [facility] Sodium 131(L) 133 - 145 mmol/L LAB CHEMISTRY METHOD 06/23/2024 10:47 AM [facility] Potassium 4.5 3.5 - 5.5 mmol/L LAB CHEMISTRY METHOD 06/23/2024 10:47 AM [facility] Comment:Hemolysis present Chloride 103 96 - 110 mmol/L LAB CHEMISTRY METHOD 06/23/2024 10:47 AM [facility] CO2 21 21 - 32 mmol/L LAB CHEMISTRY METHOD 06/23/2024 10:47 AM [facility] Anion Gap 7 3 - 11 LAB CHEMISTRY METHOD 06/23/2024 10:47 AM [facility] Glucose 294(H) 70 - 100 mg/dL LAB CHEMISTRY METHOD 06/23/2024 10:47 AM [facility] BUN 36(H) 5 - 25 mg/dL LAB CHEMISTRY METHOD 06/23/2024 10:47 AM [facility] Creatinine 1.87(H) 0.70 - 1.30 mg/dL LAB CHEMISTRY METHOD 06/23/2024 10:47 AM [facility] eGFR 42(L) >=60 mL/min/1. 73m2 LAB CHEMISTRY METHOD 06/23/2024 10:47 AM [facility] Comment:Calculation based on the??Chronic Kidney Disease Epidemiology Collaboration (CKD-EPI) equation refit??without adjustment for race. BUN/Creatinine Ratio 19.3 LAB CHEMISTRY METHOD 06/23/2024 10:47 AM [facility] Calcium 7.6(L) 8.5 - 10.5 mg/dL LAB CHEMISTRY METHOD 06/23/2024 10:47 AM [facility] Blood Venous blood specimen / Unknown Venipuncture / Unknown 06/23/2024 6:21 AM EST 06/23/2024 9:45 AM EST us Isai Reaves MD LAB BLOOD ORDERABLES Final Resul t [facility] [address] [place] [address], documented in this encounter Visit Diagnoses Diagnosis Type 2 diabetes mellitus with unspecified complications (CMS/HCC) documented in this encounter Care Teams Cylinder Grinder Relationship Specialty Start Date End Date sIai Reaves MD [address] [place] [address], [phone] PCP - General Family Medicine 05/08/24 documented as of this encounter
--- OUTSIDE RECORDS SUMMARY | 2024-08-14 09:52 | XMS_ITS | Encounter Summary ---
Author Organization [employer] [facility] Address [address] [place] [address] Care Team Providers Care Online Marketing Specialist Name Role Phone Isai Reaves MD Primary Care Provider [phone] Encounter Details Date Type Department Care Team (Late st Contact Info) Description 06/22/2024 Lab Requisition [facility] - Main Lab [address] [place] [address] Isai Reaves MD [address] [place] [address] [address] [place], [phone] Type 2 diabetes mellitus without complications (CMS/HCC) [...] Procedure Name Priority Date/Time Associated Diagnosis Comments URINALYSIS WITH REFLEX MICROSCOPIC STAT 06/22/2024 2:00 PM EST Type 2 diabetes mellitus without complications (CMS/HCC) URINALYSIS WITH REFLEX MICROSCOPIC STAT 06/22/2024 2:00 PM EST Type 2 diabetes mellitus without complications (CMS/HCC) CULTURE URINE STAT 06/22/2024 2:00 PM EST Type 2 diabetes mellitus without complications (CMS/HCC) documented in this encounter Results * (ABNORMAL) Urinalysis with reflex microscopic (06/22/2024 2:00 PM EST) Specific [place] Urine 1.021 1.003 - 1.030 LAB URINALYSIS - AUTOMATED METHOD 06/22/2024 7:27 PM EST [facility] pH, Urine 5.5 5.0 - 8.0 pH LAB URINALYSIS - AUTOMATED METHOD 06/22/2024 7:27 PM [facility] Leukocytes, Urine Negative Negative LAB URINALYSIS - AUTOMATED METHOD 06/22/2024 7:27 PM [facility] Nitrite, Urine Negative Negative LAB URINALYSIS - AUTOMATED METHOD 06/22/2024 7:27 PM [facility] Protein, Urine 100(A) <=Trace mg/dL LAB URINALYSIS - AUTOMATED METHOD 06/22/2024 7:27 PM [facility] Glucose, Urine >=1000(A) Negative mg/dL LAB URINALYSIS - AUTOMATED METHOD 06/22/2024 7:27 PM [facility] Ketones, Urine Negative Negative mg/dL LAB URINALYSIS - AUTOMATED METHOD 06/22/2024 7:27 PM [facility] Urobilinogen , Urine 1.0 0.2 - 1.0 mg/dL LAB URINALYSIS - AUTOMATED METHOD 06/22/2024 7:27 PM [facility] Bilirubin, Urine Negative Negative LAB URINALYSIS - AUTOMATED METHOD 06/22/2024 7:27 PM [facility] Blood, Urine Negative Negative LAB URINALYSIS - AUTOMATED METHOD 06/22/2024 7:27 PM [facility] RBC, Urine 4.3(H) 0 - 4 /HPF LAB URINALYSIS - AUTOMATED METHOD 06/22/2024 7:27 PM [facility] WBC, Urine 4.6(H) 0 - 4 /HPF LAB URINALYSIS - AUTOMATED METHOD 06/22/2024 7:27 PM [facility] Squamous Epithelial, Urine 8 0 - 60 /LPF LAB URINALYSIS - AUTOMATED METHOD 06/22/2024 7:27 PM [facility] Bacteria, Urine Negative Negative /HPF LAB URINALYSIS - AUTOMATED METHOD 06/22/2024 7:27 PM EST [facility] Hyaline Casts, Urine 0.0 0 - 3 /LPF LAB URINALYSIS - AUTOMATED METHOD 06/22/2024 7:27 PM EST [facility] Urine Urine specimen obtained by clean catch procedure / Unknown 06/22/2024 2:00 PM EST 06/22/2024 6:31 PM EST Isai Reaves MD LAB URINE ORDERABLES Final Resul t Performing Organization Address City/[facility]/ZIP Co de Phone Number [facility] [address] [place] [address], [place] [phone] * Culture urine (06/22/2024 2:00 PM EST) Culture, Urine <10,000 CFU/mL gram positive cocci, insignificant count, no further workup 06/23/2024 1:34 PM [facility] Urine Urine specimen obtained by clean catch procedure / Unknown 06/22/2024 2:00 PM EST 06/22/2024 6:31 PM EST Isai Reaves MD LAB MICROBIOLOGY - GENERAL ORDER ALMA DELIA Final Result Performing Organization Address [facility]/ZIP Co de Phone Number [facility] [address] [place] [address], [place] [phone] documented in this encounter Visit Diagnoses Diagnosis Type 2 diabetes mellitus without complications (CMS/HCC) documented in this encounter Care Teams Online Marketing Specialist Relationship Specialty Start Date End Date Isai Reaves MD [address] [place] [address], [phone] PCP - General Family Medicine 05/08/24 documented as of this encounter
--- OUTSIDE RECORDS SUMMARY | 2024-08-14 09:52 | XMS_ITS | Encounter Summary ---
Author Organization [employer] Address [address] [place] [address] Care Team Providers Care Proof Carrier Name Role Phone Isai Reaves MD Primary Care Provider [phone] Encounter Details Date Type Department Care Team (Late st Contact Info) Description 07/28/[address] [facility] - Main Lab [address] [facility] [place] [address] Isai Reaves MD [address] [place] [address] [address] [place], [phone] Hyperlipidemia, unspecified; Hypothyroidism, unspecified; Osteomyelitis, unspecified [...] Date/Time Associated Diagnosis Comments SEDIMENTATION RATE Routine 07/29/2024 5: 19 AM [...] this encounter Results * (ABNORMAL) Sedimentation rate (07/29/2024 5:19 AM EST) Pathologist [facility] Sed Rate 85(H) 0 - 20 mm/hr LAB HEMETOLOGY METHOD 07/29/2024 11:22 AM EST [facility] Blood Venous blood specimen / Unknown Venipuncture / Unknown 07/29/2024 5:19 AM EST 07/29/2024 10:27 AM EST Isai Reaves MD LAB BLOOD ORDERABLES Final Resul t Performing Organization Address [facility]/ZIP Co de Phone Number [facility] [address] [place] [address], [place] [phone] * (ABNORMAL) C-reactive protein (07/29/2024 5:19 AM EST) [facility] C-Reactive Protein 2.00(H) <=0.50 mg/dL LAB CHEMISTRY METHOD 07/29/2024 12:32 PM EST [facility] Blood Venous blood specimen / Unknown Venipuncture / Unknown 07/29/2024 5:19 AM EST 07/29/2024 10:27 AM EST Isai Reaves MD LAB BLOOD ORDERABLES Final Resul t [facility] [address] [place] [address], [place] [phone] * (ABNORMAL) Basic metabolic panel (07/29/2024 5:19 AM EST) Pathologist [facility] Sodium 138 133 - 145 mmol/L LAB CHEMISTRY METHOD 07/29/2024 12:31 PM EST [facility] Potassium 4.7 3.5 - 5.5 mmol/L LAB CHEMISTRY METHOD 07/29/2024 12:31 PM [facility] Chloride 107 96 - 110 mmol/L LAB CHEMISTRY METHOD 07/29/2024 12:31 PM [facility] CO2 24 21 - 32 mmol/L LAB CHEMISTRY METHOD 07/29/2024 12:31 PM [facility] Anion Gap 7 3 - 11 LAB CHEMISTRY METHOD 07/29/2024 12:31 PM [facility] Glucose 150(H) 70 - 100 mg/dL LAB CHEMISTRY METHOD 07/29/2024 12:31 PM [facility] BUN 41(H) 5 - 25 mg/dL LAB CHEMISTRY METHOD 07/29/2024 12:31 PM [facility] Creatinine 1.53(H) 0.70 - 1.30 mg/dL LAB CHEMISTRY METHOD 07/29/2024 12:31 PM [facility] eGFR 54(L) >=60 mL/min/1. 73m2 LAB CHEMISTRY METHOD 07/29/2024 12:31 PM [facility] Comment:Calculation based on the??Chronic Kidney Disease Epidemiology Collaboration (CKD-EPI) equation refit??without adjustment for race. BUN/Creatinine Ratio 26.8 LAB CHEMISTRY METHOD 07/29/2024 12:31 PM [facility] Calcium 8.6 8.5 - 10.5 mg/dL LAB CHEMISTRY METHOD 07/29/2024 12:31 PM [facility] Blood Venous blood specimen / Unknown Venipuncture / Unknown 07/29/2024 5:19 AM EST 07/29/2024 10:27 AM EST us Isai Reaves MD LAB BLOOD ORDERABLES Final Resul t [facility] [address] [place] [address], * (ABNORMAL) Complete blood count (07/29/2024 5:19 AM EST) [facility] Signature WBC 6.9 4.8 - 10.8 K/mcL LAB HEMETOLOGY METHOD 07/29/2024 11:04 AM [facility] RBC 3.20(L) 4.50 - 5.50 M/mcL LAB HEMETOLOGY METHOD 07/29/2024 11:04 AM [facility] Hemoglobin 8.8(L) 13.5 - 17.5 g/dL LAB HEMETOLOGY METHOD 07/29/2024 11:04 AM [facility] Hematocrit 27.5(L) 42.0 - 54.0 % LAB HEMETOLOGY METHOD 07/29/2024 11:04 AM [facility] MCV 85.7 79.0 - 98.0 FL LAB HEMETOLOGY METHOD 07/29/2024 11:04 AM [facility] MCH 27.4 27.0 - 32.0 pcg LAB HEMETOLOGY METHOD 07/29/2024 11:04 AM [facility] MCHC 32.0 32.0 - 37.0 g/dL LAB HEMETOLOGY METHOD 07/29/2024 11:04 AM [facility] RDW 13.9 11.0 - 15.0 % LAB HEMETOLOGY METHOD 07/29/2024 11:04 AM [facility] Platelets 226 130 - 400 K/mcL LAB HEMETOLOGY METHOD 07/29/2024 11:04 AM [facility] MPV 11.1(H) 7.0 - 11.0 FL LAB HEMETOLOGY METHOD 07/29/2024 11:04 AM [facility] NRBC 0.0 <1.0 % LAB HEMETOLOGY METHOD 07/29/2024 11:04 AM [facility] NRBC Absolute 0.00 <0.10 K/mcL LAB HEMETOLOGY METHOD 07/29/2024 11:04 AM EST [facility] Blood Venous blood specimen / Unknown Venipuncture / Unknown 07/29/2024 5:19 AM EST 07/29/2024 10:27 AM EST us Isai Reaves MD LAB BLOOD ORDERABLES Final Resul t [facility] [address] [place] [address], documented in this encounter Visit Diagnoses Diagnosis Hyperlipidemia, unspecified Hypothyroidism, unspecified Osteomyelitis, unspecified (CMS/HCC) Type 2 diabetes mellitus without complications (CMS/HCC) documented in this encounter Care Teams Proof Carrier Relationship Specialty Start Date End Date Isai Reaves MD [address] [place] [address], [phone] PCP - General Family Medicine 05/08/24 documented as of this encounter
--- OUTSIDE RECORDS SUMMARY | 2024-08-14 09:52 | XMS_ITS | Encounter Summary ---
Author Organization [employer] Address [address] [place] [address] Care Team Providers Care Polysomnograph Tech Name Role Phone Isai Reaves MD Primary Care Provider [phone] Encounter Details Date Type Department Care Team (Late st Contact Info) Description 07/21/2024 Lab Requisition [facility] - Main Lab [address] [facility] [place] [address] Isai Reaves MD [address] [place] [address] [address] [place], [phone] Hyperlipidemia, unspecified; Hypothyroidism, unspecified; Osteomyelitis, unspecified [...] Date/Time Associated Diagnosis Comments SEDIMENTATION RATE Routine 07/22/2024 8: 17 AM [...] this encounter Results * (ABNORMAL) Sedimentation rate (07/22/2024 8:17 AM EST) [facility] Sed Rate 86(H) 0 - 20 mm/hr LAB HEMETOLOGY METHOD 07/22/2024 12:53 PM EST [facility] Blood Venous blood specimen / Unknown Venipuncture / Unknown 07/22/2024 8:17 AM EST 07/22/2024 11:07 AM EST Isai Reaves MD LAB BLOOD ORDERABLES Final Resul t Performing Organization Address [facility]/ZIP Co de Phone Number [facility] [address] [place] [address], * C-reactive protein (07/22/2024 8:17 AM EST) [facility] C-Reactive Protein 0.42 <=0.50 mg/dL LAB CHEMISTRY METHOD 07/22/2024 12:38 PM EST [facility] Blood Venous blood specimen / Unknown Venipuncture / Unknown 07/22/2024 8:17 AM EST 07/22/2024 11:07 AM EST Isai Reaves MD LAB BLOOD ORDERABLES Final Resul t Performing Organization Address City/[facility]/ZIP Co de Phone Number [facility] [address] [place] [address], [place] [phone] * (ABNORMAL) Basic metabolic panel (07/22/2024 8:17 AM EST) [facility] Sodium 138 133 - 145 mmol/L LAB CHEMISTRY METHOD 07/22/2024 12:49 PM EST [facility] Potassium 4.7 3.5 - 5.5 mmol/L LAB CHEMISTRY METHOD 07/22/2024 12:49 PM [facility] Chloride 109 96 - 110 mmol/L LAB CHEMISTRY METHOD 07/22/2024 12:49 PM [facility] CO2 24 21 - 32 mmol/L LAB CHEMISTRY METHOD 07/22/2024 12:49 PM [facility] Anion Gap 5 3 - 11 LAB CHEMISTRY METHOD 07/22/2024 12:49 PM [facility] Glucose 120(H) 70 - 100 mg/dL LAB CHEMISTRY METHOD 07/22/2024 12:49 PM [facility] BUN 36(H) 5 - 25 mg/dL LAB CHEMISTRY METHOD 07/22/2024 12:49 PM [facility] Creatinine 1.38(H) 0.70 - 1.30 mg/dL LAB CHEMISTRY METHOD 07/22/2024 12:49 PM [facility] eGFR 61 >=60 mL/min/1. 73m2 LAB CHEMISTRY METHOD 07/22/2024 12:49 PM [facility] Comment:Calculation based on the??Chronic Kidney Disease Epidemiology Collaboration (CKD-EPI) equation refit??without adjustment for race. BUN/Creatinine Ratio 26.1 LAB CHEMISTRY METHOD 07/22/2024 12:49 PM [facility] Calcium 8.8 8.5 - 10.5 mg/dL LAB CHEMISTRY METHOD 07/22/2024 12:49 PM [facility] Blood Venous blood specimen / Unknown Venipuncture / Unknown 07/22/2024 8:17 AM EST 07/22/2024 11:07 AM EST us Isai Reaves MD LAB BLOOD ORDERABLES Final Resul t [facility] [address] [place] [address], * (ABNORMAL) Complete blood count (07/22/2024 8:17 AM EST) [facility] WBC 7.2 4.8 - 10.8 K/mcL LAB HEMETOLOGY METHOD 07/22/2024 12:34 PM [facility] RBC 3.60(L) 4.50 - 5.50 M/mcL LAB HEMETOLOGY METHOD 07/22/2024 12:34 PM [facility] Hemoglobin 9.9(L) 13.5 - 17.5 g/dL LAB HEMETOLOGY METHOD 07/22/2024 12:34 PM [facility] Hematocrit 31.9(L) 42.0 - 54.0 % LAB HEMETOLOGY METHOD 07/22/2024 12:34 PM [facility] MCV 88.9 79.0 - 98.0 FL LAB HEMETOLOGY METHOD 07/22/2024 12:34 PM [facility] MCH 27.6 27.0 - 32.0 pcg LAB HEMETOLOGY METHOD 07/22/2024 12:34 PM [facility] MCHC 31.0(L) 32.0 - 37.0 g/dL LAB HEMETOLOGY METHOD 07/22/2024 12:34 PM [facility] RDW 14.0 11.0 - 15.0 % LAB HEMETOLOGY METHOD 07/22/2024 12:34 PM [facility] Platelets 237 130 - 400 K/mcL LAB HEMETOLOGY METHOD 07/22/2024 12:34 PM [facility] MPV 11.3(H) 7.0 - 11.0 FL LAB HEMETOLOGY METHOD 07/22/2024 12:34 PM [facility] NRBC 0.0 <1.0 % LAB HEMETOLOGY METHOD 07/22/2024 12:34 PM [facility] NRBC Absolute 0.00 <0.10 K/mcL LAB HEMETOLOGY METHOD 07/22/2024 12:34 PM EST [facility] Blood Venous blood specimen / Unknown Venipuncture / Unknown 07/22/2024 8:17 AM EST 07/22/2024 11:07 AM EST Isai Reaves MD LAB BLOOD ORDERABLES Final Resul t [facility] [address] [place] [address], documented in this encounter Visit Diagnoses Diagnosis Hyperlipidemia, unspecified Hypothyroidism, unspecified Osteomyelitis, unspecified (CMS/HCC) Type 2 diabetes mellitus without complications (CMS/HCC) documented in this encounter Care Teams Polysomnograph Tech Relationship Specialty Start Date End Date Isai Reaves MD [address] [place] [address], [phone] PCP - General Family Medicine 05/08/24 documented as of this encounter
--- OUTSIDE RECORDS SUMMARY | 2024-08-14 09:52 | XMS_ITS | Clinical Summary ---
Author Organization [facility] Address [address] [place] [address] Care Team Providers Care Development Geologist Name Role Phone Adwoa Mcadams MD Primary Care Provider [phone] Allergies Active Allergy Reactions Criticality Noted Date Comments Atorvastatin 04/12/2022 Medications traMADol (ULTRAM) 50 MG tablet Take 50 mg by mouth 1 (one) time each day Active metFORMIN (GLUCOPHAGE) 500 MG tablet Take 500 mg by mouth in the morning and 500 mg in the evening. Take with meals. Active lisinopril 10 MG tablet Take 10 mg by mouth 1 (one) time each day Active levothyroxine sodium (TIROSINT) 150 MCG capsule Take 150 mcg by mouth 1 (one) time each day Active ibuprofen (ADVIL,MOTRIN) 600 MG tablet Take 600 mg by mouth every 6 (six) hours if needed for mild pain Active insulin aspart protamine-insu greta aspart (NovoLOG 70/30) (70-30) 100 UNIT/ML injection Inject under the skin 2 (two) times a day before meals Active amLODIPine (NORVASC) 10 MG tablet Take 10 mg by mouth 1 (one) time each day 2 Active escitalopram (LEXAPRO) 10 MG tablet Take 1 tablet by mouth 1 (one) time each day 2 Active ezetimibe (ZETIA) 10 MG tablet Take 1 tablet by mouth 1 (one) time each day Active insulin degludec (Tresiba FlexTouch) 100 UNIT/ML injection Inject 50 Units under the skin 1 (one) time each day Active Trulicity 1.5 MG/0.5ML solution pen-injector INJECT 0.5 ML (1.5 MG) SUBCUTANEOUSLY ONCE A WEEK 2 Active Active Problems No known active problems Family History Medical History Relation Comments Hypertension Father Diabetes Maternal Grandmother Diabetes Mother Relation Status Comments Father Maternal Grandmother Mother Social History Tobacco Use Types Packs/Day Years Used Date Smoking Tobacco: Never Smokeless Tobacco: Never Tobacco Cessation:Counseling Given: Not Answered Alcohol Use Standard Drinks/Week Comments Never 0 (1 standard drink = 0.6 oz pur e alcohol) Sex and Gender Information Value Date Recorded Sex Assigned at Not on file Legal Sex Male 4:49 PM EST Gender Identity Not on file Sexual Orientation Not on file Last Filed Vital Signs Vital Sign Reading Time Taken Comments Blood Pressure 100/60 04/16/2022 1:44 PM EDT Pulse 94 04/16/2022 1:44 PM EDT Temperature - - Respiratory Rate - - Oxygen Saturation 98% 04/16/2022 1:44 PM EDT Inhaled Oxygen Concentration - - Weight 112 kg (246 lb) 04/16/2022 1:44 PM EDT Height - - Body Mass Index - - Plan of Treatment Health Maintenance Due Date Last Done Comments Pneumococcal Vaccine: Pediat rics (0 to 5 Years) and At-Risk Patients (6 to 64 Years) (1 of 2 - PCV) 09[birth year]03[birth year]1975 Hepatitis B Vaccine (1 of 3 - 19+ 3-dose series) 09/02 Colorectal Cancer Screening: Annual FOBT 2018 Colorectal Cancer Screening: Colonoscopy 2018 Colorectal Cancer Screening: Sigmoidoscopy 2018 Diabetes: Hemoglobin A1C 07/24/2020 Diabetes: Ophthalmology Exam 07/24/2020 Diabetes: Pedal Pulse Checked 07/24/2020 Diabetes: Sensory Foot Exam 07/24/2020 Diabetes: Visual Foot Exam 07/24/2020 Influenza Vaccine (#1) 2024 Insurance [facility] DUAL SNP ([id number]) [facility] DUAL SNP ([id number]) Care Teams Development Geologist Relationship Specialty Start Date End Date Adwoa Mcadams MD [address] [place] [address] PCP - General 07/04/20
--- OUTSIDE RECORDS SUMMARY | 2024-08-14 09:52 | XMS_ITS | Encounter Summary ---
Author Organization [facility] Address [address] [place] [address] Care Team Providers Care Pta Name Role Phone Isai Reaves MD Primary Care Provider [phone] Encounter Details Date Type Department Care Team (Late st Contact Info) Description 08/04/2024 Lab Requisition [facility] - Main Lab 299 [facility] [place] [address] Isai Reaves MD [address] [place] [address] [address] [place], [phone] Type 2 diabetes mellitus without complications [...] Date/Time Associated Diagnosis Comments SEDIMENTATION RATE Routine 08/05/2024 6: 53 AM [...] this encounter Results * (ABNORMAL) Sedimentation rate (08/05/2024 6:53 AM EST) Pathologist [facility] Sed Rate 95(H) 0 - 20 mm/hr LAB HEMETOLOGY METHOD 08/05/2024 11:46 AM EST [facility] Blood Venous blood specimen / Unknown Venipuncture / Unknown 08/05/2024 6:53 AM EST 08/05/2024 10:58 AM EST us Isai Reaves MD LAB BLOOD ORDERABLES Final Resul t Performing Organization Address [facility]/ZIP Co de Phone Number [facility] [address] [place] [address], [place] [phone] * (ABNORMAL) C-reactive protein (08/05/2024 6:53 AM EST) [facility] C-Reactive Protein 5.38(H) <=0.50 mg/dL LAB CHEMISTRY METHOD 08/05/2024 11:56 AM EST [facility] Blood Venous blood specimen / Unknown Venipuncture / Unknown 08/05/2024 6:53 AM EST 08/05/2024 10:58 AM EST us Isai Reaves MD LAB BLOOD ORDERABLES Final Resul t [facility] [address] [place] [address], [place] [phone] * (ABNORMAL) Basic metabolic panel (08/05/2024 6:53 AM EST) [facility] Sodium 138 133 - 145 mmol/L LAB CHEMISTRY METHOD 08/05/2024 11:54 AM EST [facility] Potassium 4.3 3.5 - 5.5 mmol/L LAB CHEMISTRY METHOD 08/05/2024 11:[address] [facility] Chloride 109 96 - 110 mmol/L LAB CHEMISTRY METHOD 08/05/2024 11:[address] [facility] CO2 26 21 - 32 mmol/L LAB CHEMISTRY METHOD 08/05/2024 11:[address] [facility] Anion Gap 3 3 - 11 LAB CHEMISTRY METHOD 08/05/2024 11:[address] [facility] Glucose 84 70 - 100 mg/dL LAB CHEMISTRY METHOD 08/05/2024 11:[address] [facility] BUN 25 5 - 25 mg/dL LAB CHEMISTRY METHOD 08/05/2024 11:[address] [facility] Creatinine 1.28 0.70 - 1.30 mg/dL LAB CHEMISTRY METHOD 08/05/2024 11:[address] [facility] eGFR 67 >=60 mL/min/1. 73m2 LAB CHEMISTRY METHOD 08/05/2024 11:[address] [facility] Comment:Calculation based on the??Chronic Kidney Disease Epidemiology Collaboration (CKD-EPI) equation refit??without adjustment for race. BUN/Creatinine Ratio 19.5 LAB CHEMISTRY METHOD 08/05/2024 11:[address] [facility] Calcium 8.4(L) 8.5 - 10.5 mg/dL LAB CHEMISTRY METHOD 08/05/2024 11:[address] [facility] Blood Venous blood specimen / Unknown Venipuncture / Unknown 08/05/2024 6:53 AM EST 08/05/2024 10:58 AM EST us Isai Reaves MD LAB BLOOD ORDERABLES Final Resul t [facility] [address] [place] [address], * (ABNORMAL) Complete blood count (08/05/2024 6:53 AM EST) [facility] WBC 7.8 4.8 - 10.8 K/mcL LAB HEMETOLOGY METHOD 08/05/2024 11:[address] [facility] RBC 3.20(L) 4.50 - 5.50 M/mcL LAB HEMETOLOGY METHOD 08/05/2024 11:[address] [facility] Hemoglobin 8.5(L) 13.5 - 17.5 g/dL LAB HEMETOLOGY METHOD 08/05/2024 11:[address] [facility] Hematocrit 27.2(L) 42.0 - 54.0 % LAB HEMETOLOGY METHOD 08/05/2024 11:[address] [facility] MCV 86.1 79.0 - 98.0 FL LAB HEMETOLOGY METHOD 08/05/2024 11:[address] [facility] MCH 26.9(L) 27.0 - 32.0 pcg LAB HEMETOLOGY METHOD 08/05/2024 11:[address] [facility] MCHC 31.3(L) 32.0 - 37.0 g/dL LAB HEMETOLOGY METHOD 08/05/2024 11:[address] [facility] RDW 13.7 11.0 - 15.0 % LAB HEMETOLOGY METHOD 08/05/2024 11:[address] [facility] Platelets 267 130 - 400 K/mcL LAB HEMETOLOGY METHOD 08/05/2024 11:[address] [facility] MPV 10.5 7.0 - 11.0 FL LAB HEMETOLOGY METHOD 08/05/2024 11:[address] [facility] NRBC 0.0 <1.0 % LAB HEMETOLOGY METHOD 08/05/2024 11:[address] [facility] NRBC Absolute 0.00 <0.10 K/mcL LAB HEMETOLOGY METHOD 08/05/2024 11:35 AM EST [facility] Blood Venous blood specimen / Unknown Venipuncture / Unknown 08/05/2024 6:53 AM EST 08/05/2024 10:58 AM EST Isai Reaves MD LAB BLOOD ORDERABLES Final Resul t [facility] [address] [place] [address], documented in this encounter Visit Diagnoses Diagnosis Type 2 diabetes mellitus without complications (CMS/HCC) Osteomyelitis, unspecified (CMS/HCC) Hypothyroidism, unspecified Hyperlipidemia, unspecified documented in this encounter Care Teams Pta Relationship Specialty Start Date End Date Isai Reaves MD [address] [place] [address], [phone] PCP - General Family Medicine 05/08/24 documented as of this encounter
--- OUTSIDE RECORDS SUMMARY | 2024-08-14 09:52 | XMS_ITS | Encounter Summary ---
Author Organization [employer] [facility] Address [address] [place] [address] Care Team Providers Care Roll Builder Name Role Phone Isai Reaves MD Primary Care Provider [phone] Encounter Details Date Type Department Care Team (Late st Contact Info) Description 04/25/2024 Lab Requisition [facility] - Main Lab [address] [facility] [place] [address] Isai Reaves MD [address] [place] [address] [address] [place], [phone] Type 2 diabetes mellitus without complications [...] Procedure Name Priority Date/Time Associated Diagnosis Comments TRAVEL PHLEBOTOMY FEE Routine 04/27/2024 6:34 AM EST Type 2 diabetes mellitus without complications (CMS/HCC) LIPID PANEL WITH REFLEX TO DIRECT LDL Routine 04/27/2024 6:34 AM EST Type 2 diabetes mellitus without complications (CMS/HCC) THYROID STIMULATING HORMONE Routine 04/27/2024 6:34 AM EST Type 2 diabetes mellitus without complications (CMS/HCC) THYROXINE FREE Routine 04/27/2024 6:34 AM EST Type 2 diabetes mellitus without complications (CMS/HCC) HEPATIC FUNCTION PANEL Routine 04/27/2024 6:34 AM EST Type 2 diabetes mellitus without complications (CMS/HCC) documented in this encounter Results * Travel phlebotomy fee (04/27/2024 6:34 AM EST) Pathologist [facility] TRAVEL PHLEBOTOMY FEE Completed 04/27/2024 10:01 AM [facility] Blood Venous blood specimen / Unknown Venipuncture / Unknown 04/27/2024 6:34 AM EST 04/27/2024 9:44 AM EST us Isai Reaves MD LAB BLOOD ORDERABLES Final Resul t [facility] [address] [place] [address], [place] [phone] * Hepatic function panel (04/27/2024 6:34 AM EST) [facility] Total Protein 7.2 6.0 - 8.0 g/dL LAB CHEMISTRY METHOD 04/27/2024 11:01 AM [facility] Albumin 3.5 3.2 - 5.0 g/dL LAB CHEMISTRY METHOD 04/27/2024 11:01 AM [facility] Total Bilirubin 0.3 0.0 - 1.4 mg/dL LAB CHEMISTRY METHOD 04/27/2024 11:01 AM [facility] Bilirubin, Direct 0.2 0.0 - 0.3 mg/dL LAB CHEMISTRY METHOD 04/27/2024 11:01 AM [facility] Bilirubin, Indirect 0.1 0.0 - 1.1 mg/dL LAB CHEMISTRY METHOD 04/27/2024 11:01 AM [facility] ALT (SGPT) 20 10 - 60 unit/L LAB CHEMISTRY METHOD 04/27/2024 11:01 AM [facility] AST (SGOT) 11 10 - 42 unit/L LAB CHEMISTRY METHOD 04/27/2024 11:01 AM [facility] Alkaline Phosphatase 77 42 - 121 unit/L LAB CHEMISTRY METHOD 04/27/2024 11:01 AM EST [facility] Blood Venous blood specimen / Unknown Venipuncture / Unknown 04/27/2024 6:34 AM EST 04/27/2024 9:44 AM EST us Isai Reaves MD LAB BLOOD ORDERABLES Final Resul t Performing Organization Address City/[facility]/ZIP Co de Phone Number [facility] [address] [place] [address], [place] [phone] * Thyroid stimulating hormone (04/27/2024 6:34 AM EST) TSH 2.43 0.40 - 4.00 mcIU/mL LAB CHEMISTRY METHOD 04/27/2024 11:07 AM EST [facility] Blood Venous blood specimen / Unknown Venipuncture / Unknown 04/27/2024 6:34 AM EST 04/27/2024 9:44 AM EST us Isai Reaves MD LAB BLOOD ORDERABLES Final Resul t Performing Organization Address [facility]/ZIP Co de Phone Number [facility] [address] [place] [address], [place] [phone] * Thyroxine free (04/27/2024 6:34 AM EST) Free T4 1.62 0.70 - 1.80 ng/dL LAB CHEMISTRY METHOD 04/27/2024 11:07 AM EST [facility] Blood Venous blood specimen / Unknown Venipuncture / Unknown 04/27/2024 6:34 AM EST 04/27/2024 9:44 AM EST us Isai Reaves MD LAB BLOOD ORDERABLES Final Resul t Performing Organization Address City/[facility]/ZIP Co de Phone Number [facility] [address] [place] [address], [place] [phone] * Lipid panel with reflex to direct LDL (04/27/2024 6:34 AM EST) Cholesterol 111 0 - 200 mg/dL LAB CHEMISTRY METHOD 04/27/2024 11:01 AM [facility] Triglycerides 92 0 - 150 mg/dL LAB CHEMISTRY METHOD 04/27/2024 11:01 AM [facility] HDL 42 >=40 mg/dL LAB CHEMISTRY METHOD 04/27/2024 11:01 AM [facility] LDL Calculated 51 0 - 100 mg/dL LAB CHEMISTRY METHOD 04/27/2024 11:01 AM [facility] VLDL Cholesterol Fabian 18.4 mg/dL LAB CHEMISTRY METHOD 04/27/2024 11:01 AM [facility] Non HDL Chol. (LDL+VLDL) 69 <145 mg/dL LAB CHEMISTRY METHOD 04/27/2024 11:01 AM [facility] Chol/HDL Ratio 2.6 0.0 - 4.4 LAB CHEMISTRY METHOD 04/27/2024 11:01 AM [facility] Blood Venous blood specimen / Unknown Venipuncture / Unknown 04/27/2024 6:34 AM EST 04/27/2024 9:44 AM EST us Isai Reaves MD LAB BLOOD ORDERABLES Final Resul t [facility] [address] [place] [address], documented in this encounter Visit Diagnoses Diagnosis Type 2 diabetes mellitus without complications (CMS/HCC) documented in this encounter Care Teams Roll Builder Relationship Specialty Start Date End Date Isai Reaves MD [address] [place] [address] [address] [place], [phone] PCP - General Family Medicine 05/08/24 documented as of this encounter
--- OUTSIDE RECORDS SUMMARY | 2024-08-14 09:52 | XMS_ITS | Encounter Summary ---
Author Organization [employer] Address [address] [place] [address] Care Team Providers Care Map Maker Name Role Phone Isai Reaves MD Primary Care Provider Encounter Details Date Type Department Care Team (Late st Contact Info) Description 06/18/2024 Lab Requisition [facility] - Main Lab [address] [facility] [place] [address] Isai Reaves MD [address] [place] [address] [address] [place], [phone] Hypertensive heart disease with heart failure (CMS/HCC); Osteomyelitis, unspecified (CMS/HCC) Social History Tobacco Use [...] Diagnosis Comments CBC WITH AUTO DIFFERENTIAL Routine 06/18/2024 7:25 [...] with heart failure (CMS/HCC) Osteomyelitis, unspecified (CMS/HCC) documented in this encounter Results * (ABNORMAL) CBC auto differential (06/18/2024 7:25 AM EST) WBC 9.5 4.8 - 10.8 K/mcL LAB HEMETOLOGY METHOD 06/18/2024 11:01 AM [facility] RBC 3.50(L) 4.50 - 5.50 M/mcL LAB HEMETOLOGY METHOD 06/18/2024 11:01 AM [facility] Hemoglobin 9.4(L) 13.5 - 17.5 g/dL LAB HEMETOLOGY METHOD 06/18/2024 11:01 AM [facility] Hematocrit 29.5(L) 42.0 - 54.0 % LAB HEMETOLOGY METHOD 06/18/2024 11:01 AM [facility] MCV 85.0 79.0 - 98.0 FL LAB HEMETOLOGY METHOD 06/18/2024 11:01 AM [facility] MCH 27.1 27.0 - 32.0 pcg LAB HEMETOLOGY METHOD 06/18/2024 11:01 AM [facility] MCHC 31.9(L) 32.0 - 37.0 g/dL LAB HEMETOLOGY METHOD 06/18/2024 11:01 AM [facility] RDW 13.3 11.0 - 15.0 % LAB HEMETOLOGY METHOD 06/18/2024 11:01 AM [facility] Platelets 254 130 - 400 K/mcL LAB HEMETOLOGY METHOD 06/18/2024 11:01 AM [facility] MPV 11.2(H) 7.0 - 11.0 FL LAB HEMETOLOGY METHOD 06/18/2024 11:01 AM [facility] NRBC 0.3 <1.0 % LAB HEMETOLOGY METHOD 06/18/2024 11:01 AM [facility] NRBC Absolute 0.03 <0.10 K/mcL LAB HEMETOLOGY METHOD 06/18/2024 11:01 AM [facility] Neutrophils Relative 73.0 % LAB HEMETOLOGY METHOD 06/18/2024 11:01 AM [facility] Lymphocytes Relative 13.6 % LAB HEMETOLOGY METHOD 06/18/2024 11:01 AM [facility] Monocytes Relative 7.8 % LAB HEMETOLOGY METHOD 06/18/2024 11:01 AM [facility] Eosinophils Relative 4.8 % LAB HEMETOLOGY METHOD 06/18/2024 11:01 AM [facility] Basophils Relative 0.5 % LAB HEMETOLOGY METHOD 06/18/2024 11:01 AM [facility] Immature Granulocytes Relative 0.3 % LAB HEMETOLOGY METHOD 06/18/2024 11:01 AM [facility] Neutrophils Absolute 6.90 1.50 - 7.00 K/mcL LAB HEMETOLOGY METHOD 06/18/2024 11:01 AM [facility] Lymphocytes Absolute 1.29 1.00 - 5.00 K/mcL LAB HEMETOLOGY METHOD 06/18/2024 11:01 AM [facility] Monocytes Absolute 0.74 0.20 - 1.00 K/mcL LAB HEMETOLOGY METHOD 06/18/2024 11:01 AM [facility] Eosinophils Absolute 0.45 0.00 - 0.50 K/mcL LAB HEMETOLOGY METHOD 06/18/2024 11:01 AM [facility] Basophils Absolute 0.05 0.00 - 0.20 K/mcL LAB HEMETOLOGY METHOD 06/18/2024 11:01 AM [facility] Immature Granulocytes Absolute 0.03 0.00 - 0.03 K/mcL LAB HEMETOLOGY METHOD 06/18/2024 11:01 AM EST [facility] Blood Venous blood specimen / Unknown Venipuncture / Unknown 06/18/2024 7:25 AM EST 06/18/2024 10:29 AM EST us Isai Reaves MD LAB BLOOD ORDERABLES Final Resul t Performing Organization Address [facility] de Phone Number [facility] [address] [place] [address], [place] [phone] * (ABNORMAL) C-reactive protein (06/18/2024 7:25 AM EST) C-Reactive Protein 5.64(H) <=0.50 mg/dL LAB CHEMISTRY METHOD 06/18/2024 11:22 AM EST [facility] Blood Venous blood specimen / Unknown Venipuncture / Unknown 06/18/2024 7:25 AM EST 06/18/2024 10:29 AM EST us Isai Reaves MD LAB BLOOD ORDERABLES Final Resul t Performing Organization Address [facility] de Phone Number [facility] [address] [place] [address], [place] [phone] * (ABNORMAL) Sedimentation rate (06/18/2024 7:25 AM EST) Sed Rate 100(H) 0 - 20 mm/hr LAB HEMETOLOGY METHOD 06/18/2024 11:20 AM EST [facility] Blood Venous blood specimen / Unknown Venipuncture / Unknown 06/18/2024 7:25 AM EST 06/18/2024 10:29 AM EST us Isai Reaves MD LAB BLOOD ORDERABLES Final Resul t Performing Organization Address City/[facility] Co de Phone Number [facility] [address] [place] [address], * (ABNORMAL) Basic metabolic panel (06/18/2024 7:25 AM EST) Sodium 136 133 - 145 mmol/L LAB CHEMISTRY METHOD 06/18/2024 11:29 AM [facility] Potassium 5.3 3.5 - 5.5 mmol/L LAB CHEMISTRY METHOD 06/18/2024 11:29 AM [facility] Chloride 106 96 - 110 mmol/L LAB CHEMISTRY METHOD 06/18/2024 11:29 AM [facility] CO2 25 21 - 32 mmol/L LAB CHEMISTRY METHOD 06/18/2024 11:29 AM [facility] Anion Gap 5 3 - 11 LAB CHEMISTRY METHOD 06/18/2024 11:29 AM [facility] Glucose 376(H) 70 - 100 mg/dL LAB CHEMISTRY METHOD 06/18/2024 11:29 AM [facility] BUN 34(H) 5 - 25 mg/dL LAB CHEMISTRY METHOD 06/18/2024 11:29 AM [facility] Creatinine 1.59(H) 0.70 - 1.30 mg/dL LAB CHEMISTRY METHOD 06/18/2024 11:29 AM [facility] eGFR 51(L) >=60 mL/min/1. 73m2 LAB CHEMISTRY METHOD 06/18/2024 11:29 AM [facility] Comment:Calculation based on the??Chronic Kidney Disease Epidemiology Collaboration (CKD-EPI) equation refit??without adjustment for race. BUN/Creatinine Ratio 21.4 LAB CHEMISTRY METHOD 06/18/2024 11:29 AM [facility] Calcium 8.8 8.5 - 10.5 mg/dL LAB CHEMISTRY METHOD 06/18/2024 11:29 AM [facility] Blood Venous blood specimen / Unknown Venipuncture / Unknown 06/18/2024 7:25 AM EST 06/18/2024 10:29 AM EST Isai Reaves MD LAB BLOOD ORDERABLES Final Resul t [facility] [address] [place] [address], documented in this encounter Visit Diagnoses Diagnosis Hypertensive heart disease with heart failure (CMS/HCC) Unspecified hypertensive heart disease with heart failure Osteomyelitis, unspecified (CMS/HCC) documented in this encounter Care Teams Map Maker Relationship Specialty Start Date End Date Isai Reaves MD [address] [place] [address], [phone] PCP - General Family Medicine 05/08/24 documented as of this encounter
== END 2024-08-14 10:03 | disposition home or self-care (01) ==
PROVIDERS: PCP Family Medicine; Visit Provider Surgery
DX: E11.621 Type 2 diabetes mellitus with foot ulcer (principal); L97.426 Non-pressure chronic ulcer of left heel and midfoot with bone involvement without evidence of necrosis
CPT/HCPCS: 99024

== ENCOUNTER → 2024-08-14 09:23 | Outpatient (BNVA) | payer MEDICARE, MEDICAID, SELFPAY | PROVIDERS: PCP Family Medicine; Visit Provider Surgery | DX: Z47.81 Encounter for orthopedic aftercare following surgical amputation (principal); E11.621 Type 2 diabetes mellitus with foot ulcer; L97.426 Non-pressure chronic ulcer of left heel and midfoot with bone involvement without evidence of necrosis; Z89.422 Acquired absence of other left toe(s) | CPT/HCPCS: 99212 ==

== ENCOUNTER 2024-08-28 12:45 | Outpatient (REF) | payer MEDICARE, MEDICAID, SELFPAY ==
--- NOTE | ~2024-08-28 | IR_ITS ---
The tunnel catheter was removed as it was not needed. Electronically signed by: Yonas Clark MD 10/01/2024 07:09 AM EDT RP
--- OUTSIDE RECORDS SUMMARY | 2024-08-28 14:20 | XMS_ITS | Continuity of Care Document ---
Author Organization [facility], [facility] Address [address] [place] [address] Care Team Providers Care Program Professional Name Role Phone NICK CUETO Primary Care Provider [phone] [facility] - 3RD FLOOR OTHER Assessment No [...] Organization Details Recorded Time Diabetic foot ulcer 974274060 Active 2022 FENG KRAFT PA-C [address], [address], [place], [address], [facility] [employer] [facility] 3 12:26:29 Type 2 diabetes mellitus with periphera l angiopath y 409864384 Active 2022 FENG KRAFT PA-C [address], [address], [place], [address], [facility] [employer] [facility] 3 12:26:45 Renal disorder due to type 2 diabetes mellitus 865629160 Active 2022 FENG KRAFT PA-C [address], [address], [place], [address], [facility] [employer] [facility] 3 12:26:59 Periphera l neuropath y due to type 2 diabetes mellitus 731054958210 7 Active 2022 FENG KRAFT PA-C [address], [address], [place], [address], [facility] [employer] 3 12:27:14 Essential hypertens ion 71112939 Active 2022 FENG KRAFT PA-C [address], [address], [place], [address], [facility] [employer] 3 12:27:19 Dys[facility]ide [facility] 652333090 Active 2022 FENG KRAFT PA-C [address], [address], [place], [address], [facility] [employer] [facility] 3 12:27:26 Autoimmun e thyroidit is 05613775 Active 2022 FENG KRAFT PA-C [address], [address], [place], [address], [facility] 3 12:27:35 Anemia 547790831 Active 2022 FENG KRAFT PA-C [address], [address], [place], [address], [facility] 3 12:27:41 Chronic hyponatre adrian 74966759 Active 2022 FENG KRAFT PA-C [address], [address], [place], [address], [facility] 3 12:27:47 Depressiv e disorder 83463140 Active 2022 FENG KRAFT PA-C [address], [address], [place], [address], [facility] 3 12:27:52 Vitamin D deficienc y 86950730 Active 2022 FENG KRAFT PA-C [address], [address], [place], [address], [facility] 3 12:28:00 Pain of right knee joint 759463517580 100 Active 2022 FENG KRAFT PA-C [address], [address], [place], [address], [facility] 3 12:28:14 Congestiv e heart failure 65106734 Active 2022 details unk FENG KRAFT PA-C [address], [address], [place], [address], [facility] [employer] [facility] 3 12:28:32 Uncontrol led type 2 diabetes mellitus 876526339 Active 2022 Puja Luke MD [address] [facility], [address], [place], [address], [facility] [employer] [facility] 3 18:14:15 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 [employer] [facility] 3 19:57:21 Chronic osteomyel itis of right foot 295874738816 9104 Active 2022 Puja Luke MD [address] [facility], [address], [place], [address], [facility] 3 19:59:07 Acute cholecyst itis 82670233 Active 2023 s/p [facility]id [facility] 06/2023 ARTURO PAZ NP [address] [facility], [address], [place], [address], [facility] 4 14:22:11 Impaired cognition 007073142 Active 2023 SLUMS completed 07/25/23, score 17 ARTURO PAZ NP [address] [facility], [address], [place], [address], [facility] 4 11:03:32 Acute osteomyel itis of right foot 671352670065 9104 Active 2023 ARTURO PAZ NP [address] [facility], [address], [place], [address], [facility] 4 11:04:08 Diabetic foot ulcer 842274782 Active 2024 Gail Goncalves NP [address] [facility], [address], [place], [address], [facility] 5 10:42:27 Problem Notes None recorded. Medical Equipment None Reported. Allergies Allergen ID Allergen Name Allergen Category Reaction Reaction Severity Criticality Documentation Date Start Date Code Code System Note Provider Name and Address Organization Details Recorded Time 82732 Lipitor medicatio n rash Not available Not available 07/02/2022 24187 5 RxNorm can take Zocor Not Available Not Available Not Available Vitals Date Recorded Body height Body weight Body mass index (BMI) Heart rate Respiratory rate Body temperature Oxygen saturation Oxygen saturation in Arterial blood by Pulse oximetry Systolic blood pressure Diastolic blood pressure Provider Name and Address Organization Details Last Updated DateTime 5 165.1 cm 427184. 24 g 42.8 kg/m2 64 /min 18 /min 98.6 [degF] 97 % 97 % 132 mm[Hg] 64 mm[Hg] Gail Goncalves NP [address] [facility], [address], [place], [address], [facility] 5 13:33:43 Social History Question Answer Notes LastModified by Organization Details LastModified Time Tobacco Smoking Status Never Smoker FENG KRAFT PA-C [address] [facility], [address], [place], [address], [facility] 07/02/2022 11:36:18 Do You Have An Advance Directive? Yes Full Code; All Interventions [email or web address] Information not available 07/06/2022 What Is Your Level Of Alcohol Consumption? None [email or web address] Information not available 07/02/2022 What Is Your Code Status? Full Code Information not available 07/03/2022 Where Do You Live? Nursinghome Now LTC At [facility], Previously Lived At [facility], Awaiting [facility] Placement Information not available 01/23/2024 Legal Guardian? No Informati on not available 07/03/2022 Do You Have A Medical Power Of Delivery Driver Assistant? Yes Has HCP - Invoke Has Newer HCP Per [employer], Family Recently Reunited Information not available 07/08/2024 What Was The Date Of Your Most Recent Tobacco Screening? 07/08/2024 Information not available 07/08/2024 Do You Have An Out Of Hospital DNR? No Information not available 07/03/2022 What Is Your Relationship Status? Single Information not available 07/03/2022 Do You Use Any Illicit Or Recreational Drugs? No [email or web address] Information not available 07/02/2022 Has Tobacco Cessation Counseling Been Provided? No N/A As Pt Is A Non-smoker [email or web address] Information not available 07/03/2022 Do You Or Have You Ever Used Any Other Forms Of Tobacco Or Nicotine? No [email or web address] Information not available 07/02/2022 Sex: Unknown Functional Status None recorded. Mental Status None recorded. Family History Relationship Description Onset Age of this Age Resolved Age Notes LastModified by Organization Details LastModified Time Father Essential hypertension dece ed Not available 07/02/2022 11:34:54 Mother Type 2 diabetes mellitus dece ed [email or web address] Not available 07/02/2022 11:35:10 Medical History No medical history recorded. Immunizations Vaccine Type Date Status Note Provider Nam e and Address Organization Details Recorded Time COVID-19, mRNA, LNP-S, PF, 30 mcg/0.3 mL dose 1 completed FENG KRAFT PA-C [address], [address], [place], [address], [facility] 07/02/2022 11:29:08 COVID-19, mRNA, LNP-S, PF, 30 mcg/0.3 mL dose 1 completed FENG KRAFT PA-C [address], [address], [place], [address], [facility] 07/02/2022 11:29:11 Tdap 6 completed FENG KRAFT PA-C [address], [address], [place], [address], [facility] 07/02/2022 11:29:24 pneumococcal polysaccharide PPV23 7 completed FENG KRAFT PA-C [address], [address], [place], [address], [facility] 07/02/2022 11:29:42 Influenza, split virus, quadrivalent, PF 3 completed FENG KRAFT PA-C [address], [address], [place], [address], [facility] 08/10/2022 13:17:40 pneumococcal polysaccharide PPV23 3 completed FENG KRAFT PA-C [address], [place], [address], [facility] 08/10/2022 13:18:04 COVID-19, mRNA, LNP-S, bivalent, PF, 30 mcg/0.3 mL dose 3 completed FENG KRAFT PA-C [address], [place], [address], [facility] 08/10/2022 13:18:32 Influenza, adjuvanted, quadrivalent, PF 3 completed Nyla bullard, [facility] 08/09/2023 17:56:04 COVID-19, mRNA, LNP-S, bivalent, PF, 30 mcg/0.3 mL dose 3 completed Nyla bullard, [facility] 08/12/2023 11:51:52 Past Encounters Encounter ID Performer Location Encounter Start Date Encounter Closed Date Diagnosis/Indication Diagnosis SNOMED-CT Code Diagnosis ICD10 Code Diagnosis Note [id number] Gail Goncalves NP [facility] [address] [address] 07/08/2024 09:46:45 07/08/2024 11:17:52 Open wound of left foot [id number] 8454625 S91.302A send pt to er and call 911 for left foot dehiscence and overt bleeding going through dressing and towelalso please have hosp assess if central line is needed or if a picc line for abx is more appropriat e in this setting [id number] Gail Goncalves NP [facility] [address] [address] 07/09/2024 08:22:11 07/10/2024 15:20:10 Open wound of left foot [id number] 4240532 S91.302A Left diabetic foot ulcer open wound [...] felt he can fu with surgeon at [facility] Mendoza in near future)redd n from [facility] [...] if bleeding worsens Diabetic foot ulcer 3710 70621 L97.518 chronic wound, with noncomplia nce to diet and fluid restrictio n and labs in pastElecti ve skin graft attempted at [facility] x 2, both did not take.[facility] in hospital[facility] n[facility] surgical eval and tx.Also followed by Wound PA-C in house for local care and debridemen t prnContinu e local wound careTubigr ip for gentle compressio nMonitor VS, labsMainta in glucose control. Type 2 vanda betes mellitus with peripheral angiopathy 409583379 E11.52 E11.42 Continue:T resiba 20U qammounjar o 5mg sc q thursmetfo rmin 750 mg po dailyLispr o per sliding scaleqhs snackConti nue to trend BS and A1Cs Peripheral edema 6504156 00 R60.9 peripheral edema stable with anusha wraps, not on diuretics at this time.consi erik low dose diuretic prnMonitor closely Chronic ki dney disease stage 3A 373557062 N18.31 Stable at new baseline.C ontinue to avoid nephrotoxi c meds as able.F/U with renal, Dr. Alonzo, prn.Acute on Chronic AKIoff diuretics at this timecurren tly on metformin 750 mg po qdMonitor for N/V/DFollo w up wtih Renal Dr. Alonzo as needed.Alex id nephrotoxi csmonitor closely and see above management labs cbc with diff, bmp, esr, crp, ck, level on wednesdays Anemia 587315322 D64.89 has anemia now with open left foot wound amp of 4th and 5th toes and increased bleedingns g to monitor bleeding and apply pressure dressings prnMonitor ing CBC weekly for now on wednesdays see above Congestive heart failure 82634537 I50.22 hx ofAppetite great, not clear if water weight with recent weight increasehx . of diet noncomplia nce.Not on diuretics at this time, but may need to consider.M aintain meds for BP controlMon itor closely for decompensa tion. Depressive disorder 3548 9007 F33.0 Continuees citalopram 10 mg dailyMonit or mood, behaviors Dyslipidemia 540747695 E 78.49 Continueze tia 10 mg dailysimva statin 40 mg dailyfenof ibrate 54 mg dailyCheck LFTs, lipid panel prn Essential hypertension 14687993 I10 Continue:l isinopril 10 mg qdamlodipi ne 10 mg qdMonitor BP and labs. Sepsis 28325924 A41.9 see above Osteomyeli tis of left foot 6198850337 472268 M86.9 see above [id number] [facility] [address] 07/15/2024 09:21:48 07/16/2024 11:16:06 Open wound of left foot [id number] 3360690 S91.302A Left diabetic foot ulcer with 4th [...] prn if bleeding worsenssee wound note Sepsis 13049173 A41.9 see above Osteomyeli tis of left foot 7457708284 420409 M86.9 see above Diabetic foot ulcer 3710 04093 L97.518 chronic wound, with noncomplia nce to diet and fluid restrictio n and labs in pastElecti ve skin graft attempted at [facility] x 2, both did not take. no skin graft on this past admissionh ad [facility] while in hospitalCo ntinue [facility] surgical eval and tx.Also followed by Wound PA-C in house for local care and debridemen t prnContinu e local wound careTubigr ip for gentle compressio nMonitor VS, labsMainta in glucose control.se e wound note Chronic ki dney disease stage 3A 708863254 N18.31 Stable at new baseline.C ontinue to [...] 2 vanda betes mellitus with peripheral angiopathy 385455561 E11.52 E11.42 Continue:T resiba 20U qammounjar o 5mg sc q thursmetfo rmin 750 mg po dailyLispr o per sliding scaleqhs snackConti nue to trend BS and A1Cs Peripheral edema 4072555 00 R60.9 peripheral edema stable with anusha wraps, not on diuretics at this time.consi erik low dose diuretic prnMonitor closely Anemia 626872591 D64.89 has anemia now with open left foot wound amp of 4th and 5th toes and bleeding more controlled with anusha compressio nnsg to monitor bleeding and apply pressure dressings prnMonitor ing CBC weekly for now on wednesdays see above [id number] Gail Goncalves NP [address] [address] 07/22/2024 13:31:36 07/24/2024 10:39:24 Open wound of left foot 0663561884 4162788 S91.302A Left diabetic foot ulcer with 4th [...] prn if bleeding worsenssee wound note Sepsis 79191356 A41.9 see above Osteomyeli tis of left foot 0280811007 751002 M86.9 see above Diabetic foot ulcer 3710 73334 L97.518 chronic wound with increased bleeding today, with noncomplia nce to diet and fluid restrictio n and labs in pastElecti ve skin graft attempted at [facility] x 2, both did not take. no skin graft on this past admissionh ad [facility]idemen [facility] [place] while in hospitalCo ntinue [facility] surgical eval and tx.followe d by Wound PANitishC in house for local care and debridemen t prnContinu e local wound care, anusha wrap for compressio n for bleedingMo nitor VS, labsMainta in glucose control.se e wound note weeklylabs trended Chronic ki dney disease stage 3A 916143271 N18.31 Stable at new baseline.C ontinue to avoid nephrotoxi c meds as able.F/U with renal, Dr. Alonzo, prn.Acute on Chronic AKIoff diuretics at this timecontme tformin 750 mg po qdFollow up [facility] Dr[facility] Alonzo as needed.Alex id nephrotoxi csmonitor closely and see above management labs cbc with diff, bmp, esr, crp, ck, level on wednesdays Type 2 vanda betes mellitus with peripheral angiopathy 948577256 E11.52 E11.42 Continue:T resiba 20U qammounjar o 5mg sc q thursmetfo rmin 750 mg po dailyLispr o per sliding scaleqhs snackConti nue to trend BS and A1Cs and adjust for ckd prn Peripheral edema 4600433 00 R60.9 peripheral edema stable with anusha wraps, not on diuretics at this time.consi erik low dose diuretic prnMonitor closely Anemia 807511150 D64.89 has anemia now with open left foot wound amp of 4th and 5th toes and bleeding more controlled with anusha compressio nnsg to monitor bleeding and apply pressure dressings prnMonitor ing CBC weekly for now on wednesdays see above Congestive heart failure 44124926 I50.22 hx ofAppetite great, not clear if water weight with recent weight increasehx . of diet noncomplia nce.Not on diuretics at this time, but may need to consider.M aintain meds for BP controlMon itor closely for decompensa tion. Depressive disorder 3548 9007 F33.0 Continuees citalopram 10 mg dailyMonit or mood, behaviors Dyslipidemia 619560189 E 78.49 Continueze tia 10 mg dailysimva statin 40 mg dailyfenof ibrate 54 mg dailyCheck LFTs, lipid panel prn Essential hypertension 18167063 I10 Continue:l isinopril 10 mg qdamlodipi ne 10 mg qdMonitor BP and labs. [id number] Gail Goncalves NP [address] [address] 08/05/2024 13:20:08 08/06/2024 13:45:32 Open wound of left foot [id number] 4170400 S91.302A Left diabetic foot ulcer with 4th [...] nonhealing ulcer Osteomyeli tis of left foot 5438640811 007016 M86.9 see below Diabetic foot ulcer 3710 11327 L97.518 chronic wound with increased bleeding today, with noncomplia nce to diet and fluid restrictio n and labs in pastElecti ve skin graft attempted at [facility] x 2, both did not takehad debridemen t [facility] [place] while in hospitalCo ntinue [facility] surgical eval and tx.followe d by Wound PA-C in house for local care and debridemen t prnContinu e local wound care, anusha wrap for compressio n for bleedingMo nitor VS, labsMainta in glucose control.se e wound note weeklylabs trended Sepsis 74047883 A41.9 resolvedse e abovebmp and cbc weekly Chronic ki dney disease stage 3A 389305074 N18.31 Stable at new baseline as aboveConti [...] 2 vanda betes mellitus with peripheral angiopathy 627604202 E11.52 E11.42 Continue:T resiba 20U qammounjar o 5mg sc q thursmetfo rmin 750 mg po dailyLispr o per sliding scaleqhs snackConti nue to trend BS and A1Cs and adjust for ckd prn Peripheral edema 0371659 00 R60.9 peripheral edema stable with anusha [...] ID Guarantor Name 08/05/2024 1 MEDICARE B-[place]: [employer] Devin Spanglerquillo [id number] Mehul Beltran 08/05/2024 2 MEDICAID-PR: [facility] Mehul Beltran [id number] Mehul Beltran Notes Date Note Type Note [...] recommend fu with surgeon. Gail Goncalves NP [address] [place] [address], [address], [place], [address], [facility] 08/05/2024 13:49:41
--- OUTSIDE RECORDS SUMMARY | 2024-08-28 14:20 | XMS_ITS | Encounter Summary ---
Author Organization [facility] Address [address] [place] [address] Care Team Providers Care Preboarder Name Role Phone Isai Reaves MD Primary Care Provider [phone] Encounter Details Date Type Department Care Team (Late st Contact Info) Description 08/12/2024 Lab Requisition [facility] Main Lab [address] [facility] [email or web address] [address] Isai Reaves MD [address] [place] [address] [address] [place], [address] Type 2 diabetes mellitus without complications [...] Sedimentation rate (08/13/2024 6:21 AM EST) Pathologist [facility] Sed Rate 89(H) 0 - 20 mm/hr LAB HEMETOLOGY METHOD 08/13/2024 11:03 AM EST [facility] Blood Venous blood specimen / Unknown Venipuncture / Unknown 08/13/2024 6:21 AM EST 08/13/2024 9:31 AM EST Isai Reaves MD LAB BLOOD ORDERABLES Final Resul t Performing Organization Address [facility]/ZIP Co de Phone Number [facility] [address] [place] [address], [place] [phone] * (ABNORMAL) C-reactive protein (08/13/2024 6:21 AM EST) [facility] C-Reactive Protein 1.59(H) <=0.50 mg/dL LAB CHEMISTRY METHOD 08/13/2024 10:55 AM EST [facility] Blood Venous blood specimen / Unknown Venipuncture / Unknown 08/13/2024 6:21 AM EST 08/13/2024 9:31 AM EST Isai Reaves MD LAB BLOOD ORDERABLES Final Resul t [facility] [address] [place] [address], [place] [phone] * (ABNORMAL) Basic metabolic panel (08/13/2024 6:21 AM EST) [facility] Sodium 135 133 - 145 mmol/L LAB CHEMISTRY METHOD 08/13/2024 10:50 AM EST [facility] Potassium 4.9 3.5 - 5.5 mmol/L LAB CHEMISTRY METHOD 08/13/2024 10:50 AM [facility] Chloride 105 96 - 110 mmol/L LAB CHEMISTRY METHOD 08/13/2024 10:50 AM [facility] CO2 27 21 - 32 mmol/L LAB CHEMISTRY METHOD 08/13/2024 10:50 AM [facility] Anion Gap 3 3 - 11 LAB CHEMISTRY METHOD 08/13/2024 10:50 AM [facility] Glucose 201(H) 70 - 100 mg/dL LAB CHEMISTRY METHOD 08/13/2024 10:50 AM [facility] BUN 31(H) 5 - 25 mg/dL LAB CHEMISTRY METHOD 08/13/2024 10:50 AM [facility] Creatinine 1.48(H) 0.70 - 1.30 mg/dL LAB CHEMISTRY METHOD 08/13/2024 10:50 AM [facility] eGFR 56(L) >=60 mL/min/1. 73m2 LAB CHEMISTRY METHOD 08/13/2024 10:50 AM [facility] Comment:Calculation based on the??Chronic Kidney Disease Epidemiology Collaboration (CKD-EPI) equation refit??without adjustment for race. BUN/Creatinine Ratio 20.9 LAB CHEMISTRY METHOD 08/13/2024 10:50 AM [facility] Calcium 8.5 8.5 - 10.5 mg/dL LAB CHEMISTRY METHOD 08/13/2024 10:50 AM [facility] Blood Venous blood specimen / Unknown Venipuncture / Unknown 08/13/2024 6:21 AM EST 08/13/2024 9:31 AM EST us Isai Reaves MD LAB BLOOD ORDERABLES Final Resul t [facility] [address] [place] [address], * (ABNORMAL) Complete blood count (08/13/2024 6:21 AM EST) [facility] Signature WBC 7.5 4.8 - 10.8 K/mcL LAB HEMETOLOGY METHOD 08/13/2024 10:45 AM [facility] RBC 3.30(L) 4.50 - 5.50 M/mcL LAB HEMETOLOGY METHOD 08/13/2024 10:45 AM [facility] Hemoglobin 8.8(L) 13.5 - 17.5 g/dL LAB HEMETOLOGY METHOD 08/13/2024 10:45 AM [facility] Hematocrit 27.9(L) 42.0 - 54.0 % LAB HEMETOLOGY METHOD 08/13/2024 10:45 AM [facility] MCV 85.8 79.0 - 98.0 FL LAB HEMETOLOGY METHOD 08/13/2024 10:45 AM [facility] MCH 27.1 27.0 - 32.0 pcg LAB HEMETOLOGY METHOD 08/13/2024 10:45 AM [facility] MCHC 31.5(L) 32.0 - 37.0 g/dL LAB HEMETOLOGY METHOD 08/13/2024 10:45 AM [facility] RDW 13.3 11.0 - 15.0 % LAB HEMETOLOGY METHOD 08/13/2024 10:45 AM [facility] Platelets 262 130 - 400 K/mcL LAB HEMETOLOGY METHOD 08/13/2024 10:45 AM [facility] MPV 10.5 7.0 - 11.0 FL LAB HEMETOLOGY METHOD 08/13/2024 10:45 AM [facility] NRBC 0.0 <1.0 % LAB HEMETOLOGY METHOD 08/13/2024 10:45 AM [facility] NRBC Absolute 0.00 <0.10 K/mcL LAB HEMETOLOGY METHOD 08/13/2024 10:45 AM EST [facility] Blood Venous blood specimen / Unknown Venipuncture / Unknown 08/13/2024 6:21 AM EST 08/13/2024 9:31 AM EST us Isai Reaves MD LAB BLOOD ORDERABLES Final Resul t [facility] [address] [place] [address], documented in this encounter Visit Diagnoses Diagnosis Type 2 diabetes mellitus without complications (CMS/HCC) Osteomyelitis, unspecified (CMS/HCC) Hypothyroidism, unspecified Hyperlipidemia, unspecified documented in this encounter Care Teams Preboarder Relationship Specialty Start Date End Date Isai Reaves MD [address] [place] [address], [id number] PCP - General Family Medicine 05/08/24 documented as of this encounter
--- OUTSIDE RECORDS SUMMARY | 2024-08-28 14:20 | XMS_ITS | Encounter Summary ---
Author Organization [facility] Address [address] [place] [address] Care Team Providers Care Scanning Manager Name Role Phone Isai Reaves MD Primary Care Provider [phone] Encounter Details Date Type Department Care Team (Late st Contact Info) Description 07/14/2024 Lab Requisition [facility] - Main Lab [address] [facility] [employer] [place] [address] Isai Reaves MD [address] [place] [address] [address] [place], [phone] Hyperlipidemia, unspecified; Hypothyroidism, unspecified; Osteomyelitis, unspecified [...] Sedimentation rate (07/15/2024 7:43 AM EST) Pathologist [facility] Sed Rate 115(H) 0 - 20 mm/hr LAB HEMETOLOGY METHOD 07/15/2024 11:27 AM EST [facility] Blood Venous blood specimen / Unknown Venipuncture / Unknown 07/15/2024 7:43 AM EST 07/15/2024 11:14 AM EST us Isai Reaves MD LAB BLOOD ORDERABLES Final Resul t Performing Organization Address [facility] de Phone Number [facility] [address] [place] [address], [place] [phone] * (ABNORMAL) C-reactive protein (07/15/2024 7:43 AM EST) [facility] C-Reactive Protein 0.67(H) <=0.50 mg/dL LAB CHEMISTRY METHOD 07/15/2024 1:04 PM EST [facility] Comment:Results verified by repeat testing Blood Venous blood specimen / Unknown Venipuncture / Unknown 07/15/2024 7:43 AM EST 07/15/2024 11:14 AM EST Isai Reaves MD LAB BLOOD ORDERABLES Final Resul t Performing Organization Address [facility]/ZIP Co de Phone Number [facility] [address] [place] [address], [place] [phone] * (ABNORMAL) Basic metabolic panel (07/15/2024 7:43 AM EST) [facility] Sodium 134 133 - 145 mmol/L LAB CHEMISTRY METHOD 07/15/2024 1:04 PM EST [facility] Potassium 5.0 3.5 - 5.5 mmol/L LAB CHEMISTRY METHOD 07/15/2024 1:04 PM [facility] Comment:Hemolysis present Chloride 106 96 - 110 mmol/L LAB CHEMISTRY METHOD 07/15/2024 1:04 PM [facility] CO2 23 21 - 32 mmol/L LAB CHEMISTRY METHOD 07/15/2024 1:04 PM [facility] Anion Gap 5 3 - 11 LAB CHEMISTRY METHOD 07/15/2024 1:04 PM [facility] Glucose 194(H) 70 - 100 mg/dL LAB CHEMISTRY METHOD 07/15/2024 1:04 PM [facility] BUN 23 5 - 25 mg/dL LAB CHEMISTRY METHOD 07/15/2024 1:04 PM [facility] Creatinine 1.12 0.70 - 1.30 mg/dL LAB CHEMISTRY METHOD 07/15/2024 1:04 PM [facility] eGFR 78 >=60 mL/min/1. 73m2 LAB CHEMISTRY METHOD 07/15/2024 1:04 PM [facility] Comment:Calculation based on the??Chronic Kidney Disease Epidemiology Collaboration (CKD-EPI) equation refit??without adjustment for race. BUN/Creatinine Ratio 20.5 LAB CHEMISTRY METHOD 07/15/2024 1:04 PM [facility] Calcium 9.2 8.5 - 10.5 mg/dL LAB CHEMISTRY METHOD 07/15/2024 1:04 PM [facility] Blood Venous blood specimen / Unknown Venipuncture / Unknown 07/15/2024 7:43 AM EST 07/15/2024 11:14 AM EST us Isai Reaves MD LAB BLOOD ORDERABLES Final Resul t [facility] [address] [place] [address], * (ABNORMAL) Complete blood count (07/15/2024 7:43 AM EST) [facility] WBC 6.9 4.8 - 10.8 K/mcL LAB HEMETOLOGY METHOD 07/15/2024 12:06 PM [facility] RBC 3.80(L) 4.50 - 5.50 M/mcL LAB HEMETOLOGY METHOD 07/15/2024 12:06 PM [facility] Hemoglobin 10.4(L) 13.5 - 17.5 g/dL LAB HEMETOLOGY METHOD 07/15/2024 12:06 PM [facility] Hematocrit 33.0(L) 42.0 - 54.0 % LAB HEMETOLOGY METHOD 07/15/2024 12:06 PM [facility] MCV 86.8 79.0 - 98.0 FL LAB HEMETOLOGY METHOD 07/15/2024 12:06 PM [facility] MCH 27.4 27.0 - 32.0 pcg LAB HEMETOLOGY METHOD 07/15/2024 12:06 PM [facility] MCHC 31.5(L) 32.0 - 37.0 g/dL LAB HEMETOLOGY METHOD 07/15/2024 12:06 PM [facility] RDW 13.2 11.0 - 15.0 % LAB HEMETOLOGY METHOD 07/15/2024 12:06 PM [facility] Platelets 292 130 - 400 K/mcL LAB HEMETOLOGY METHOD 07/15/2024 12:06 PM [facility] MPV 10.7 7.0 - 11.0 FL LAB HEMETOLOGY METHOD 07/15/2024 12:06 PM [facility] NRBC 0.0 <1.0 % LAB HEMETOLOGY METHOD 07/15/2024 12:06 PM [facility] NRBC Absolute 0.00 <0.10 K/mcL LAB HEMETOLOGY METHOD 07/15/2024 12:06 PM EST [facility] Blood Venous blood specimen / Unknown Venipuncture / Unknown 07/15/2024 7:43 AM EST 07/15/2024 11:14 AM EST Isai Reaves MD LAB BLOOD ORDERABLES Final Resul t [facility] [address] [place] [address], documented in this encounter Visit Diagnoses Diagnosis Hyperlipidemia, unspecified Hypothyroidism, unspecified Osteomyelitis, unspecified (CMS/HCC) Type 2 diabetes mellitus without complications (CMS/HCC) documented in this encounter Care Teams Scanning Manager Relationship Specialty Start Date End Date Isai Reaves MD [address] [place] [address], [phone] PCP - General Family Medicine 05/08/24 documented as of this encounter
--- OUTSIDE RECORDS SUMMARY | 2024-08-28 14:20 | XMS_ITS | Encounter Summary ---
Author Organization [employer] Address [address] [facility] [address] [place] [address] Care Team Providers Care Plant Attendant Or Assistant Operator Name Role Phone Unavailable Primary Care Provider Unavailabl e Encounter Details Date Type Department Care Team (Latest Contact Info) Description 11/07/2018 Abstract [facility] CONVERSIONS Dental, Provider, DDS Social History [...]
--- OUTSIDE RECORDS SUMMARY | 2024-08-28 14:20 | XMS_ITS | Clinical Summary ---
Author Organization [employer] Address [address] [facility] [address] [place] [address] Care Team Providers Care Chicken Fancier Name Role Phone Unavailable Primary Care Provider [...]
--- OUTSIDE RECORDS SUMMARY | 2024-08-28 14:21 | XMS_ITS | Encounter Summary ---
Author Organization [facility] Address [address] [place] [address] Care Team Providers Care Neon Installer Name Role Phone Isai Reaves MD Primary Care Provider [phone] Encounter Details Date Type Department Care Team (Late st Contact Info) Description 08/11/2024 Lab Requisition [facility] - Main Lab [address] [facility] [place] [address] Isai Reaves MD [address] [place] [address] [address] [place], [phone] Type 2 diabetes mellitus without complications (CMS/HCC); [...] unspecified documented in this encounter Care Teams Neon Installer Relationship Specialty Start Date End Date Isai Reaves MD [address] [place] [address] [address] [place], [phone] PCP - General Family Medicine 05/08/24 documented as of this encounter
--- OUTSIDE RECORDS SUMMARY | 2024-08-28 14:21 | XMS_ITS | Clinical Summary ---
Author Organization [facility] Address [address] [place] [address] Care Team Providers Care Secretarial Teacher Name Role Phone Adwoa Mcadams MD Primary Care Provider [phone] Allergies Active Allergy Reactions Criticality Noted Date [...] CENTER CARE DUAL SNP ([id number]) Care Teams Secretarial Teacher Relationship Specialty Start Date End Date Adwoa Mcadams MD [address] [place] [address] PCP - General 07/04/20
--- OUTSIDE RECORDS SUMMARY | 2024-08-28 14:21 | XMS_ITS | Encounter Summary ---
Author Organization [facility] Address [address] [place] [address] Care Team Providers Care Chief Contract Officer Name Role Phone Isai Reaves MD Primary Care Provider [phone] Encounter Details Date Type Department Care Team (Late st Contact Info) Description 08/25/2024 Lab Requisition [facility] - Main Lab [address] [facility] [place] [address] Isai Reaves MD [address] [place] [address] [address] [place], [phone] Type 2 diabetes mellitus without complications [...] Date/Time Associated Diagnosis Comments SEDIMENTATION RATE Routine 08/26/2024 2: 00 PM EST Type 2 diabetes mellitus without complications (CMS/HCC) Osteomyelitis, unspecified (CMS/HCC) Hypothyroidism, unspecified Hyperlipidemia, unspecified COMPLETE BLOOD COUNT Routine 08/26/2024 2:00 PM EST Type 2 diabetes mellitus without complications (CMS/HCC) Osteomyelitis, unspecified (CMS/HCC) Hypothyroidism, unspecified Hyperlipidemia, unspecified C-REACTIVE PROTEIN Routine 08/26/2024 2: 00 PM EST Type 2 diabetes mellitus without complications (CMS/HCC) Osteomyelitis, unspecified (CMS/HCC) Hypothyroidism, unspecified Hyperlipidemia, unspecified BASIC METABOLIC PANEL Routine 08/26/2024 2:00 PM EST Type 2 diabetes mellitus without complications (CMS/HCC) Osteomyelitis, unspecified (CMS/HCC) Hypothyroidism, unspecified Hyperlipidemia, unspecified documented in this encounter Results * (ABNORMAL) Sedimentation rate (08/26/2024 2:00 PM EST) Pathologist [facility] Sed Rate 104(H) 0 - 20 mm/hr LAB HEMETOLOGY METHOD 08/26/2024 3:[address] [facility] Blood Venous blood specimen / Unknown Venipuncture / Unknown 08/26/2024 2:00 PM EST 08/26/2024 2:51 PM EST Isai Reaves MD LAB BLOOD ORDERABLES Final Resul t Performing Organization Address [facility]/ZIP Co de Phone Number [facility] [address] [place] [address], [place] [phone] * (ABNORMAL) C-reactive protein (08/26/2024 2:00 PM EST) [facility] C-Reactive Protein 1.00(H) <=0.50 mg/dL LAB CHEMISTRY METHOD 08/26/2024 3:[address] [facility] Blood Venous blood specimen / Unknown Venipuncture / Unknown 08/26/2024 2:00 PM EST 08/26/2024 2:55 PM EST Isai Reaves MD LAB BLOOD ORDERABLES Final Resul t [facility] [address] [place] [address], [place] [phone] * (ABNORMAL) Basic metabolic panel (08/26/2024 2:00 PM EST) [facility] Sodium 139 133 - 145 mmol/L LAB CHEMISTRY METHOD 08/26/2024 3:[address] [facility] Potassium 5.2 3.5 - 5.5 mmol/L LAB CHEMISTRY METHOD 08/26/2024 3:42 PM [facility] Chloride 110 96 - 110 mmol/L LAB CHEMISTRY METHOD 08/26/2024 3:42 PM [facility] CO2 20(L) 21 - 32 mmol/L LAB CHEMISTRY METHOD 08/26/2024 3:42 PM [facility] Anion Gap 9 3 - 11 LAB CHEMISTRY METHOD 08/26/2024 3:42 PM [facility] Glucose 123(H) 70 - 100 mg/dL LAB CHEMISTRY METHOD 08/26/2024 3:42 PM [facility] BUN 31(H) 5 - 25 mg/dL LAB CHEMISTRY METHOD 08/26/2024 3:42 PM [facility] Creatinine 1.52(H) 0.70 - 1.30 mg/dL LAB CHEMISTRY METHOD 08/26/2024 3:42 PM [facility] eGFR 54(L) >=60 mL/min/1. 73m2 LAB CHEMISTRY METHOD 08/26/2024 3:42 PM [facility] Comment:Calculation based on the??Chronic Kidney Disease Epidemiology Collaboration (CKD-EPI) equation refit??without adjustment for race. BUN/Creatinine Ratio 20.4 LAB CHEMISTRY METHOD 08/26/2024 3:42 PM [facility] Calcium 9.0 8.5 - 10.5 mg/dL LAB CHEMISTRY METHOD 08/26/2024 3:42 PM [facility] Blood Venous blood specimen / Unknown Venipuncture / Unknown 08/26/2024 2:00 PM EST 08/26/2024 2:55 PM EST us Isai Reaves MD LAB BLOOD ORDERABLES Final Resul t [facility] [address] [place] [address], * (ABNORMAL) Complete blood count (08/26/2024 2:00 PM EST) [facility] WBC 9.0 4.8 - 10.8 K/mcL LAB HEMETOLOGY METHOD 08/26/2024 3:20 PM [facility] RBC 3.70(L) 4.50 - 5.50 M/mcL LAB HEMETOLOGY METHOD 08/26/2024 3:20 PM [facility] Hemoglobin 10.1(L) 13.5 - 17.5 g/dL LAB HEMETOLOGY METHOD 08/26/2024 3:20 PM [facility] Hematocrit 30.8(L) 42.0 - 54.0 % LAB HEMETOLOGY METHOD 08/26/2024 3:20 PM [facility] MCV 83.7 79.0 - 98.0 FL LAB HEMETOLOGY METHOD 08/26/2024 3:20 PM [facility] MCH 27.4 27.0 - 32.0 pcg LAB HEMETOLOGY METHOD 08/26/2024 3:20 PM [facility] MCHC 32.8 32.0 - 37.0 g/dL LAB HEMETOLOGY METHOD 08/26/2024 3:20 PM [facility] RDW 13.6 11.0 - 15.0 % LAB HEMETOLOGY METHOD 08/26/2024 3:20 PM [facility] Platelets 314 130 - 400 K/mcL LAB HEMETOLOGY METHOD 08/26/2024 3:20 PM [facility] MPV 11.3(H) 7.0 - 11.0 FL LAB HEMETOLOGY METHOD 08/26/2024 3:20 PM [facility] NRBC 0.0 <1.0 % LAB HEMETOLOGY METHOD 08/26/2024 3:20 PM [facility] NRBC Absolute 0.00 <0.10 K/mcL LAB HEMETOLOGY METHOD 08/26/2024 3:[address] [facility] Blood Venous blood specimen / Unknown Venipuncture / Unknown 08/26/2024 2:00 PM EST 08/26/2024 2:51 PM EST Isai Reaves MD LAB BLOOD ORDERABLES Final Resul t [facility] [address] [place] [address], documented in this encounter Visit Diagnoses Diagnosis Type 2 diabetes mellitus without complications (CMS/HCC) Osteomyelitis, unspecified (CMS/HCC) Hypothyroidism, unspecified Hyperlipidemia, unspecified documented in this encounter Care Teams Chief Contract Officer Relationship Specialty Start Date End Date Isai Reaves MD [address] [place] [address], [phone] PCP - General Family Medicine 05/08/24 documented as of this encounter
--- OUTSIDE RECORDS SUMMARY | 2024-08-28 14:21 | XMS_ITS | Encounter Summary ---
Author Organization [employer] Address [address] [place] [address] Care Team Providers Care Aircraft Shipping Checker Name Role Phone Isai Reaves MD Primary Care Provider [phone] Encounter Details Date Type Department Care Team (Late st Contact Info) Description 07/21/2024 Lab Requisition [facility] - Main Lab [address] [facility] [place] [address] Isai Reaves MD [address] [place] [address] [address] [place], [phone] Hyperlipidemia, unspecified; Hypothyroidism, unspecified; Osteomyelitis, unspecified [...] (ABNORMAL) Sedimentation rate (07/22/2024 8:17 AM EST) [facility] Sed Rate 86(H) 0 - 20 mm/hr LAB HEMETOLOGY METHOD 07/22/2024 12:53 PM EST [facility] Blood Venous blood specimen / Unknown Venipuncture / Unknown 07/22/2024 8:17 AM EST 07/22/2024 11:07 AM EST Isai Reaves MD LAB BLOOD ORDERABLES Final Resul t Performing Organization Address [facility]/ZIP Co de Phone Number [facility] [address] [place] [address], * C-reactive protein (07/22/2024 8:17 AM EST) [facility] C-Reactive Protein 0.42 <=0.50 mg/dL LAB CHEMISTRY METHOD 07/22/2024 12:38 PM EST [facility] Blood Venous blood specimen / Unknown Venipuncture / Unknown 07/22/2024 8:17 AM EST 07/22/2024 11:07 AM EST Isai Reaves MD LAB BLOOD ORDERABLES Final Resul t Performing Organization Address City/[facility]/ZIP Co de Phone Number [facility] [address] [place] [address], [place] [phone] * (ABNORMAL) Basic metabolic panel (07/22/2024 8:17 AM EST) [facility] Sodium 138 133 - 145 mmol/L LAB CHEMISTRY METHOD 07/22/2024 12:49 PM EST [facility] Potassium 4.7 3.5 - 5.5 mmol/L LAB CHEMISTRY METHOD 07/22/2024 12:49 PM [facility] Chloride 109 96 - 110 mmol/L LAB CHEMISTRY METHOD 07/22/2024 12:49 PM [facility] CO2 24 21 - 32 mmol/L LAB CHEMISTRY METHOD 07/22/2024 12:49 PM [facility] Anion Gap 5 3 - 11 LAB CHEMISTRY METHOD 07/22/2024 12:49 PM [facility] Glucose 120(H) 70 - 100 mg/dL LAB CHEMISTRY METHOD 07/22/2024 12:49 PM [facility] BUN 36(H) 5 - 25 mg/dL LAB CHEMISTRY METHOD 07/22/2024 12:49 PM [facility] Creatinine 1.38(H) 0.70 - 1.30 mg/dL LAB CHEMISTRY METHOD 07/22/2024 12:49 PM [facility] eGFR 61 >=60 mL/min/1. 73m2 LAB CHEMISTRY METHOD 07/22/2024 12:49 PM [facility] Comment:Calculation based on the??Chronic Kidney Disease Epidemiology Collaboration (CKD-EPI) equation refit??without adjustment for race. BUN/Creatinine Ratio 26.1 LAB CHEMISTRY METHOD 07/22/2024 12:49 PM [facility] Calcium 8.8 8.5 - 10.5 mg/dL LAB CHEMISTRY METHOD 07/22/2024 12:49 PM [facility] Blood Venous blood specimen / Unknown Venipuncture / Unknown 07/22/2024 8:17 AM EST 07/22/2024 11:07 AM EST us Isai Reaves MD LAB BLOOD ORDERABLES Final Resul t [facility] [address] [place] [address], * (ABNORMAL) Complete blood count (07/22/2024 8:17 AM EST) [facility] WBC 7.2 4.8 - 10.8 K/mcL LAB HEMETOLOGY METHOD 07/22/2024 12:34 PM [facility] RBC 3.60(L) 4.50 - 5.50 M/mcL LAB HEMETOLOGY METHOD 07/22/2024 12:34 PM [facility] Hemoglobin 9.9(L) 13.5 - 17.5 g/dL LAB HEMETOLOGY METHOD 07/22/2024 12:34 PM [facility] Hematocrit 31.9(L) 42.0 - 54.0 % LAB HEMETOLOGY METHOD 07/22/2024 12:34 PM [facility] MCV 88.9 79.0 - 98.0 FL LAB HEMETOLOGY METHOD 07/22/2024 12:34 PM [facility] MCH 27.6 27.0 - 32.0 pcg LAB HEMETOLOGY METHOD 07/22/2024 12:34 PM [facility] MCHC 31.0(L) 32.0 - 37.0 g/dL LAB HEMETOLOGY METHOD 07/22/2024 12:34 PM [facility] RDW 14.0 11.0 - 15.0 % LAB HEMETOLOGY METHOD 07/22/2024 12:34 PM [facility] Platelets 237 130 - 400 K/mcL LAB HEMETOLOGY METHOD 07/22/2024 12:34 PM [facility] MPV 11.3(H) 7.0 - 11.0 FL LAB HEMETOLOGY METHOD 07/22/2024 12:34 PM [facility] NRBC 0.0 <1.0 % LAB HEMETOLOGY METHOD 07/22/2024 12:34 PM [facility] NRBC Absolute 0.00 <0.10 K/mcL LAB HEMETOLOGY METHOD 07/22/2024 12:34 PM EST [facility] Blood Venous blood specimen / Unknown Venipuncture / Unknown 07/22/2024 8:17 AM EST 07/22/2024 11:07 AM EST Isai Reaves MD LAB BLOOD ORDERABLES Final Resul t [facility] [address] [place] [address], documented in this encounter Visit Diagnoses Diagnosis Hyperlipidemia, unspecified Hypothyroidism, unspecified Osteomyelitis, unspecified (CMS/HCC) Type 2 diabetes mellitus without complications (CMS/HCC) documented in this encounter Care Teams Aircraft Shipping Checker Relationship Specialty Start Date End Date Isai Reaves MD [address] [place] [address], [phone] PCP - General Family Medicine 05/08/24 documented as of this encounter
--- OUTSIDE RECORDS SUMMARY | 2024-08-28 14:21 | XMS_ITS | Encounter Summary ---
Author Organization [employer] Address [address] [place] [address] Care Team Providers Care Research Clerk Name Role Phone Isai Reaves MD Primary Care Provider [phone] Encounter Details Date Type Department Care Team (Late st Contact Info) Description 06/23/2024 Lab Requisition [facility] - Main Lab 299 [facility] [place] [address] Isai Reaves MD [address] [place] [address] [address] [place], [phone] Essential (primary) hypertension; Osteomyelitis, unspecified (CMS/HCC) [...] CBC auto differential (06/25/2024 6:00 AM EST) [facility] Signature WBC 13.0(H) 4.8 - 10.8 K/mcL LAB HEMETOLOGY METHOD 06/25/2024 10:57 AM [facility] LAB RBC 2.90(L) 4.50 - 5.50 M/mcL LAB HEMETOLOGY METHOD 06/25/2024 10:57 AM [facility] LAB Hemoglobin 7.8(L) 13.5 - 17.5 g/dL LAB HEMETOLOGY METHOD 06/25/2024 10:57 AM [facility] LAB Hematocrit 24.6(L) 42.0 - 54.0 % LAB HEMETOLOGY METHOD 06/25/2024 10:57 AM [facility] LAB MCV 86.0 79.0 - 98.0 FL LAB HEMETOLOGY METHOD 06/25/2024 10:57 AM [facility] LAB MCH 27.3 27.0 - 32.0 pcg LAB HEMETOLOGY METHOD 06/25/2024 10:57 AM [facility] LAB MCHC 31.7(L) 32.0 - 37.0 g/dL LAB HEMETOLOGY METHOD 06/25/2024 10:57 AM [facility] LAB RDW 13.1 11.0 - 15.0 % LAB HEMETOLOGY METHOD 06/25/2024 10:57 AM [facility] LAB Platelets 259 130 - 400 K/mcL LAB HEMETOLOGY METHOD 06/25/2024 10:57 AM [facility] LAB MPV 10.9 7.0 - 11.0 FL LAB HEMETOLOGY METHOD 06/25/2024 10:57 AM [facility] LAB NRBC 0.0 <1.0 % LAB HEMETOLOGY METHOD 06/25/2024 10:57 AM [facility] LAB NRBC Absolute 0.00 <0.10 K/mcL LAB HEMETOLOGY METHOD 06/25/2024 10:57 AM [facility] LAB Neutrophils Relative 78.7 % LAB HEMETOLOGY METHOD 06/25/2024 10:57 AM [facility] LAB Lymphocytes Relative 9.0 % LAB HEMETOLOGY METHOD 06/25/2024 10:57 AM [facility] LAB Monocytes Relative 8.6 % LAB HEMETOLOGY METHOD 06/25/2024 10:57 AM [facility] LAB Eosinophils Relative 2.8 % LAB HEMETOLOGY METHOD 06/25/2024 10:57 AM [facility] LAB Basophils Relative 0.4 % LAB HEMETOLOGY METHOD 06/25/2024 10:57 AM [facility] LAB Immature Granulocytes Relative 0.5 % LAB HEMETOLOGY METHOD 06/25/2024 10:57 AM [facility] LAB Neutrophils Absolute 10.21(H) 1.50 - 7.00 K/mcL LAB HEMETOLOGY METHOD 06/25/2024 10:57 AM [facility] LAB Lymphocytes Absolute 1.17 1.00 - 5.00 K/mcL LAB HEMETOLOGY METHOD 06/25/2024 10:57 AM [facility] LAB Monocytes Absolute 1.12(H) 0.20 - 1.00 K/mcL LAB HEMETOLOGY METHOD 06/25/2024 10:57 AM [facility] LAB Eosinophils Absolute 0.36 0.00 - 0.50 K/mcL LAB HEMETOLOGY METHOD 06/25/2024 10:57 AM [facility] LAB Basophils Absolute 0.05 0.00 - 0.20 K/mcL LAB HEMETOLOGY METHOD 06/25/2024 10:57 AM [facility] LAB Immature Granulocytes Absolute 0.07(H) 0.00 - 0.03 K/mcL LAB HEMETOLOGY METHOD 06/25/2024 10:57 AM EST [facility] LAB Blood Venous blood specimen / Unknown Venipuncture / Unknown 06/25/2024 6:00 AM EST 06/25/2024 9:42 AM EST us Isai Reaves MD LAB BLOOD ORDERABLES Final Resul t Performing Organization Address [facility] Co de Phone Number [facility] LAB [address] [place] [address], [place] [phone] * (ABNORMAL) C-reactive protein (06/25/2024 6:00 AM EST) C-Reactive Protein 16.90(H) <=0.50 mg/dL LAB CHEMISTRY METHOD 06/25/2024 11:42 AM EST [facility] LAB Blood Venous blood specimen / Unknown Venipuncture / Unknown 06/25/2024 6:00 AM EST 06/25/2024 9:38 AM EST us Isai Reaves MD LAB BLOOD ORDERABLES Final Resul t Performing Organization Address [facility] de Phone Number [facility] [address] [place] [address], [place] [phone] * (ABNORMAL) Sedimentation rate (06/25/2024 6:00 AM EST) Sed Rate 86(H) 0 - 20 mm/hr LAB HEMETOLOGY METHOD 06/25/2024 10:40 AM EST [facility] Blood Venous blood specimen / Unknown Venipuncture / Unknown 06/25/2024 6:00 AM EST 06/25/2024 9:42 AM EST us Isai Reaves MD LAB BLOOD ORDERABLES Final Resul t Performing Organization Address City/[facility] Co de Phone Number [facility] [address] [place] [address], [place] [phone] * (ABNORMAL) Basic metabolic panel (06/25/2024 6:00 AM EST) Sodium 133 133 - 145 mmol/L LAB CHEMISTRY METHOD 06/25/2024 11:37 AM [facility] Potassium 4.4 3.5 - 5.5 mmol/L LAB CHEMISTRY METHOD 06/25/2024 11:37 AM [facility] Chloride 106 96 - 110 mmol/L LAB CHEMISTRY METHOD 06/25/2024 11:37 AM [facility] CO2 20(L) 21 - 32 mmol/L LAB CHEMISTRY METHOD 06/25/2024 11:37 AM [facility] Anion Gap 7 3 - 11 LAB CHEMISTRY METHOD 06/25/2024 11:37 AM [facility] Glucose 188(H) 70 - 100 mg/dL LAB CHEMISTRY METHOD 06/25/2024 11:37 AM [facility] BUN 32(H) 5 - 25 mg/dL LAB CHEMISTRY METHOD 06/25/2024 11:37 AM [facility] LAB Creatinine 1.83(H) 0.70 - 1.30 mg/dL LAB CHEMISTRY METHOD 06/25/2024 11:37 AM [facility] LAB eGFR 43(L) >=60 mL/min/1. 73m2 LAB CHEMISTRY METHOD 06/25/2024 11:37 AM [facility] LAB Comment:Calculation based on the??Chronic Kidney Disease Epidemiology Collaboration (CKD-EPI) equation refit??without adjustment for race. BUN/Creatinine Ratio 17.5 LAB CHEMISTRY METHOD 06/25/2024 11:37 AM [facility] LAB Calcium 7.5(L) 8.5 - 10.5 mg/dL LAB CHEMISTRY METHOD 06/25/2024 11:37 AM [facility] LAB Blood Venous blood specimen / Unknown Venipuncture / Unknown 06/25/2024 6:00 AM EST 06/25/2024 9:38 AM EST us Isai Reaves MD LAB BLOOD ORDERABLES Final Resul t [facility] ([facility]) [facility] LAB [address] [place] [address], documented in this encounter Visit Diagnoses Diagnosis Essential (primary) hypertension Unspecified essential hypertension Osteomyelitis, unspecified (CMS/HCC) documented in this encounter Care Teams Research Clerk Relationship Specialty Start Date End Date Isai Reaves MD [address] [place] [address] [address] [place], [phone] PCP - General Family Medicine 05/08/24 documented as of this encounter
--- OUTSIDE RECORDS SUMMARY | 2024-08-28 14:21 | XMS_ITS | Encounter Summary ---
Author Organization [employer] Address [address] [place] [address] Care Team Providers Care Manager Linux Name Role Phone Isai Reaves MD Primary Care Provider [phone] Encounter Details Date Type Department Care Team (Late st Contact Info) Description 06/18/2024 Lab Requisition [facility] - Main Lab 299 [facility] [place] [address] Isai Reaves MD [address] [place] [address] [address] [place], [phone] Hypertensive heart disease with heart failure [...] K/mcL LAB HEMETOLOGY METHOD 06/18/2024 11:01 AM [facility] LAB RBC 3.50(L) 4.50 - 5.50 M/mcL LAB HEMETOLOGY METHOD 06/18/2024 11:01 AM [facility] LAB Hemoglobin 9.4(L) 13.5 - 17.5 g/dL LAB HEMETOLOGY METHOD 06/18/2024 11:01 AM [facility] LAB Hematocrit 29.5(L) 42.0 - 54.0 % LAB HEMETOLOGY METHOD 06/18/2024 11:01 AM [facility] LAB MCV 85.0 79.0 - 98.0 FL LAB HEMETOLOGY METHOD 06/18/2024 11:01 AM [facility] LAB MCH 27.1 27.0 - 32.0 pcg LAB HEMETOLOGY METHOD 06/18/2024 11:01 AM [facility] LAB MCHC 31.9(L) 32.0 - 37.0 g/dL LAB HEMETOLOGY METHOD 06/18/2024 11:01 AM [facility] LAB RDW 13.3 11.0 - 15.0 % LAB HEMETOLOGY METHOD 06/18/2024 11:01 AM [facility] LAB Platelets 254 130 - 400 K/mcL LAB HEMETOLOGY METHOD 06/18/2024 11:01 AM [facility] LAB MPV 11.2(H) 7.0 - 11.0 FL LAB HEMETOLOGY METHOD 06/18/2024 11:01 AM [facility] LAB NRBC 0.3 <1.0 % LAB HEMETOLOGY METHOD 06/18/2024 11:01 AM [facility] LAB NRBC Absolute 0.03 <0.10 K/mcL LAB HEMETOLOGY METHOD 06/18/2024 11:01 AM [facility] LAB Neutrophils Relative 73.0 % LAB HEMETOLOGY METHOD 06/18/2024 11:01 AM [facility] LAB Lymphocytes Relative 13.6 % LAB HEMETOLOGY METHOD 06/18/2024 11:01 AM [facility] LAB Monocytes Relative 7.8 % LAB HEMETOLOGY METHOD 06/18/2024 11:01 AM [facility] LAB Eosinophils Relative 4.8 % LAB HEMETOLOGY METHOD 06/18/2024 11:01 AM [facility] LAB Basophils Relative 0.5 % LAB HEMETOLOGY METHOD 06/18/2024 11:01 AM [facility] LAB Immature Granulocytes Relative 0.3 % LAB HEMETOLOGY METHOD 06/18/2024 11:01 AM [facility] LAB Neutrophils Absolute 6.90 1.50 - 7.00 K/mcL LAB HEMETOLOGY METHOD 06/18/2024 11:01 AM [facility] LAB Lymphocytes Absolute 1.29 1.00 - 5.00 K/mcL LAB HEMETOLOGY METHOD 06/18/2024 11:01 AM [facility] LAB Monocytes Absolute 0.74 0.20 - 1.00 K/mcL LAB HEMETOLOGY METHOD 06/18/2024 11:01 AM [facility] LAB Eosinophils Absolute 0.45 0.00 - 0.50 K/mcL LAB HEMETOLOGY METHOD 06/18/2024 11:01 AM [facility] LAB Basophils Absolute 0.05 0.00 - 0.20 K/mcL LAB HEMETOLOGY METHOD 06/18/2024 11:01 AM [facility] LAB Immature Granulocytes Absolute 0.03 0.00 - 0.03 K/mcL LAB HEMETOLOGY METHOD 06/18/2024 11:01 AM EST [facility] LAB Blood Venous blood specimen / Unknown Venipuncture / Unknown 06/18/2024 7:25 AM EST 06/18/2024 10:29 AM EST us Isai Reaves MD LAB BLOOD ORDERABLES Final Resul t Performing Organization Address [facility] de Phone Number [facility] LAB [address] [place] [address], [place] [phone] * (ABNORMAL) C-reactive protein (06/18/2024 7:25 AM EST) C-Reactive Protein 5.64(H) <=0.50 mg/dL LAB CHEMISTRY METHOD 06/18/2024 11:22 AM EST [facility] LAB Blood Venous blood specimen / Unknown Venipuncture / Unknown 06/18/2024 7:25 AM EST 06/18/2024 10:29 AM EST us Isia Reaves MD LAB BLOOD ORDERABLES Final Resul t Performing Organization Address [facility] de Phone Number [facility] [address] [place] [address], [place] [phone] * (ABNORMAL) Sedimentation rate (06/18/2024 7:25 AM EST) Sed Rate 100(H) 0 - 20 mm/hr LAB HEMETOLOGY METHOD 06/18/2024 11:20 AM EST [facility] Blood Venous blood specimen / Unknown Venipuncture / Unknown 06/18/2024 7:25 AM EST 06/18/2024 10:29 AM EST us Isai Reaves MD LAB BLOOD ORDERABLES Final Resul t Performing Organization Address City/[facility] Co de Phone Number [facility] [address] [place] [address], * (ABNORMAL) Basic metabolic panel (06/18/2024 7:25 AM EST) Sodium 136 133 - 145 mmol/L LAB CHEMISTRY METHOD 06/18/2024 11:29 AM [facility] Potassium 5.3 3.5 - 5.5 mmol/L LAB CHEMISTRY METHOD 06/18/2024 11:29 AM [facility] LAB Chloride 106 96 - 110 mmol/L LAB CHEMISTRY METHOD 06/18/2024 11:29 AM [facility] LAB CO2 25 21 - 32 mmol/L LAB CHEMISTRY METHOD 06/18/2024 11:29 AM [facility] LAB Anion Gap 5 3 - 11 LAB CHEMISTRY METHOD 06/18/2024 11:29 AM [facility] LAB Glucose 376(H) 70 - 100 mg/dL LAB CHEMISTRY METHOD 06/18/2024 11:29 AM [facility] LAB BUN 34(H) 5 - 25 mg/dL LAB CHEMISTRY METHOD 06/18/2024 11:29 AM [facility] LAB Creatinine 1.59(H) 0.70 - 1.30 mg/dL LAB CHEMISTRY METHOD 06/18/2024 11:29 AM [facility] LAB eGFR 51(L) >=60 mL/min/1. 73m2 LAB CHEMISTRY METHOD 06/18/2024 11:29 AM [facility] LAB Comment:Calculation based on the??Chronic Kidney Disease Epidemiology Collaboration (CKD-EPI) equation refit??without adjustment for race. BUN/Creatinine Ratio 21.4 LAB CHEMISTRY METHOD 06/18/2024 11:29 AM [facility] LAB Calcium 8.8 8.5 - 10.5 mg/dL LAB CHEMISTRY METHOD 06/18/2024 11:29 AM [facility] LAB Blood Venous blood specimen / Unknown Venipuncture / Unknown 06/18/2024 7:25 AM EST 06/18/2024 10:29 AM EST Isai Reaves MD LAB BLOOD ORDERABLES Final Resul t [facility] ([facility]) [facility] [address] [place] [address], documented in this encounter Visit Diagnoses Diagnosis Hypertensive heart disease with heart failure (CMS/HCC) Unspecified hypertensive heart disease with heart failure Osteomyelitis, unspecified (CMS/HCC) documented in this encounter Care Teams Manager Linux Relationship Specialty Start Date End Date Isai Reaves MD [address] [place] [address], [phone] PCP - General Family Medicine 05/08/24 documented as of this encounter
--- OUTSIDE RECORDS SUMMARY | 2024-08-28 14:21 | XMS_ITS | Encounter Summary ---
Author Organization [employer] Address [address] [place] [address] Care Team Providers Care Lacquer Coater Name Role Phone Isai Reaves MD Primary Care Provider [phone] Encounter Details Date Type Department Care Team (Late st Contact Info) Description 06/23/2024 Lab Requisition [facility] - Main Lab 299 [facility] [place] [address] Isai Reaves MD [address] [place] [address] [address] [place], [phone] Type 2 diabetes mellitus with unspecified [...] K/mcL LAB HEMETOLOGY METHOD 06/23/2024 10:52 AM [facility] LAB RBC 3.10(L) 4.50 - 5.50 M/mcL LAB HEMETOLOGY METHOD 06/23/2024 10:52 AM [facility] LAB Hemoglobin 8.3(L) 13.5 - 17.5 g/dL LAB HEMETOLOGY METHOD 06/23/2024 10:52 AM [facility] LAB Hematocrit 26.2(L) 42.0 - 54.0 % LAB HEMETOLOGY METHOD 06/23/2024 10:52 AM [facility] LAB MCV 85.3 79.0 - 98.0 FL LAB HEMETOLOGY METHOD 06/23/2024 10:52 AM [facility] LAB MCH 27.0 27.0 - 32.0 pcg LAB HEMETOLOGY METHOD 06/23/2024 10:52 AM [facility] LAB MCHC 31.7(L) 32.0 - 37.0 g/dL LAB HEMETOLOGY METHOD 06/23/2024 10:52 AM [facility] LAB RDW 12.9 11.0 - 15.0 % LAB HEMETOLOGY METHOD 06/23/2024 10:52 AM [facility] LAB Platelets 235 130 - 400 K/mcL LAB HEMETOLOGY METHOD 06/23/2024 10:52 AM [facility] LAB MPV 11.1(H) 7.0 - 11.0 FL LAB HEMETOLOGY METHOD 06/23/2024 10:52 AM [facility] LAB NRBC 0.0 <1.0 % LAB HEMETOLOGY METHOD 06/23/2024 10:52 AM [facility] LAB NRBC Absolute 0.00 <0.10 K/mcL LAB HEMETOLOGY METHOD 06/23/2024 10:52 AM [facility] LAB Neutrophils Relative 77.0 % LAB HEMETOLOGY METHOD 06/23/2024 10:52 AM [facility] LAB Lymphocytes Relative 9.5 % LAB HEMETOLOGY METHOD 06/23/2024 10:52 AM [facility] LAB Monocytes Relative 8.9 % LAB HEMETOLOGY METHOD 06/23/2024 10:52 AM [facility] LAB Eosinophils Relative 3.4 % LAB HEMETOLOGY METHOD 06/23/2024 10:52 AM [facility] Basophils Relative 0.5 % LAB HEMETOLOGY METHOD 06/23/2024 10:52 AM [facility] LAB Immature Granulocytes Relative 0.7 % LAB HEMETOLOGY METHOD 06/23/2024 10:52 AM [facility] LAB Neutrophils Absolute 8.18(H) 1.50 - 7.00 K/mcL LAB HEMETOLOGY METHOD 06/23/2024 10:52 AM [facility] LAB Lymphocytes Absolute 1.01 1.00 - 5.00 K/mcL LAB HEMETOLOGY METHOD 06/23/2024 10:52 AM [facility] LAB Monocytes Absolute 0.95 0.20 - 1.00 K/mcL LAB HEMETOLOGY METHOD 06/23/2024 10:52 AM [facility] LAB Eosinophils Absolute 0.36 0.00 - 0.50 K/mcL LAB HEMETOLOGY METHOD 06/23/2024 10:52 AM [facility] LAB Basophils Absolute 0.05 0.00 - 0.20 K/mcL LAB HEMETOLOGY METHOD 06/23/2024 10:52 AM [facility] LAB Immature Granulocytes Absolute 0.07(H) 0.00 - 0.03 K/mcL LAB HEMETOLOGY METHOD 06/23/2024 10:52 AM [facility] LAB Blood Venous blood specimen / Unknown Venipuncture / Unknown 06/23/2024 6:21 AM EST 06/23/2024 9:45 AM EST us Isai Reaves MD LAB BLOOD ORDERABLES Final Resul t Performing Organization Address [facility]/ZIP Co de Phone Number [facility] LAB [address] [place] [address], [place] [phone] * (ABNORMAL) Hemoglobin A1c (06/23/2024 6:21 AM EST) Pathologist [facility] Hemoglobin A1C 9.3(H) <6.5 % LAB CHEMISTRY METHOD 06/23/2024 1:44 PM EST [facility] Mean Bld Glu Estim. 220 mg/dL LAB CHEMISTRY METHOD 06/23/2024 1:44 PM [facility] Blood Venous blood specimen / Unknown Venipuncture / Unknown 06/23/2024 6:21 AM EST 06/23/2024 9:45 AM EST Isai Reaves MD LAB BLOOD ORDERABLES Final Resul t Performing Organization Address [facility]/ZIP Co de Phone Number [facility] [address] [place] [address], [place] [phone] * (ABNORMAL) Basic metabolic panel (06/23/2024 6:21 AM EST) Pathologist [facility] Sodium 131(L) 133 - 145 mmol/L LAB CHEMISTRY METHOD 06/23/2024 10:47 AM [facility] Potassium 4.5 3.5 - 5.5 mmol/L LAB CHEMISTRY METHOD 06/23/2024 10:47 AM [facility] LAB Comment:Hemolysis present Chloride 103 96 - 110 mmol/L LAB CHEMISTRY METHOD 06/23/2024 10:47 AM [facility] CO2 21 21 - 32 mmol/L LAB CHEMISTRY METHOD 06/23/2024 10:47 AM [facility] Anion Gap 7 3 - 11 LAB CHEMISTRY METHOD 06/23/2024 10:47 AM [facility] Glucose 294(H) 70 - 100 mg/dL LAB CHEMISTRY METHOD 06/23/2024 10:47 AM [facility] BUN 36(H) 5 - 25 mg/dL LAB CHEMISTRY METHOD 06/23/2024 10:47 AM [facility] Creatinine 1.87(H) 0.70 - 1.30 mg/dL LAB CHEMISTRY METHOD 06/23/2024 10:47 AM [facility] LAB eGFR 42(L) >=60 mL/min/1. 73m2 LAB CHEMISTRY METHOD 06/23/2024 10:47 AM [facility] LAB Comment:Calculation based on the??Chronic Kidney Disease Epidemiology Collaboration (CKD-EPI) equation refit??without adjustment for race. BUN/Creatinine Ratio 19.3 LAB CHEMISTRY METHOD 06/23/2024 10:47 AM [facility] Calcium 7.6(L) 8.5 - 10.5 mg/dL LAB CHEMISTRY METHOD 06/23/2024 10:47 AM [facility] Blood Venous blood specimen / Unknown Venipuncture / Unknown 06/23/2024 6:21 AM EST 06/23/2024 9:45 AM EST us Isai Reaves MD LAB BLOOD ORDERABLES Final Resul t [facility] [address] [place] [address], documented in this encounter Visit Diagnoses Diagnosis Type 2 diabetes mellitus with unspecified complications (CMS/HCC) documented in this encounter Care Teams Lacquer Coater Relationship Specialty Start Date End Date Isai Reaves MD [address] [place] [address], [phone] PCP - General Family Medicine 05/08/24 documented as of this encounter
--- OUTSIDE RECORDS SUMMARY | 2024-08-28 14:21 | XMS_ITS | Encounter Summary ---
Author Organization [facility] Address [address] [place] [address] Care Team Providers Care Cook Boat Name Role Phone Isai Reaves MD Primary Care Provider [phone] Encounter Details Date Type Department Care Team (Late st Contact Info) Description 06/22/2024 Lab Requisition [facility] - Main Lab [address] [place] [address] Isai Reaves MD [address] [place] [address] [address] [place], [phone] Type 2 diabetes mellitus without complications [...] reflex microscopic (06/22/2024 2:00 PM EST) Specific [place] Urine 1.021 1.003 - 1.030 LAB URINALYSIS - AUTOMATED METHOD 06/22/2024 7:27 PM EST [facility] pH, Urine 5.5 5.0 - 8.0 pH LAB URINALYSIS - AUTOMATED METHOD 06/22/2024 7:27 PM [facility] Leukocytes, Urine Negative Negative LAB URINALYSIS - AUTOMATED METHOD 06/22/2024 7:27 PM [facility] Nitrite, Urine Negative Negative LAB URINALYSIS - AUTOMATED METHOD 06/22/2024 7:27 PM [facility] Protein, Urine 100(A) <=Trace mg/dL LAB URINALYSIS - AUTOMATED METHOD 06/22/2024 7:27 PM [facility] LAB Glucose, Urine >=1000(A) Negative mg/dL LAB URINALYSIS - AUTOMATED METHOD 06/22/2024 7:27 PM [facility] Ketones, Urine Negative Negative mg/dL LAB URINALYSIS - AUTOMATED METHOD 06/22/2024 7:27 PM [facility] LAB Urobilinogen , Urine 1.0 0.2 - 1.0 mg/dL LAB URINALYSIS - AUTOMATED METHOD 06/22/2024 7:27 PM [facility] LAB Bilirubin, Urine Negative Negative LAB URINALYSIS - AUTOMATED METHOD 06/22/2024 7:27 PM [facility] Blood, Urine Negative Negative LAB URINALYSIS - AUTOMATED METHOD 06/22/2024 7:27 PM [facility] LAB RBC, Urine 4.3(H) 0 - 4 /HPF LAB URINALYSIS - AUTOMATED METHOD 06/22/2024 7:27 PM [facility] LAB WBC, Urine 4.6(H) 0 - 4 /HPF LAB URINALYSIS - AUTOMATED METHOD 06/22/2024 7:27 PM [facility] LAB Squamous Epithelial, Urine 8 0 - 60 /LPF LAB URINALYSIS - AUTOMATED METHOD 06/22/2024 7:27 PM [facility] Bacteria, Urine Negative Negative /HPF LAB URINALYSIS - AUTOMATED METHOD 06/22/2024 7:27 PM EST [facility] LAB Hyaline Casts, Urine 0.0 0 - 3 /LPF LAB URINALYSIS - AUTOMATED METHOD 06/22/2024 7:27 PM EST [facility] LAB Urine Urine specimen obtained by clean catch procedure / Unknown 06/22/2024 2:00 PM EST 06/22/2024 6:31 PM EST Isai Reaves MD LAB URINE ORDERABLES Final Resul t Performing Organization Address City/[facility]/ZIP Co de Phone Number [facility] [address] [place] [address], [place] [phone] * Culture urine (06/22/2024 2:00 PM EST) Culture, Urine <10,000 CFU/mL gram positive cocci, insignificant count, no further workup 06/23/2024 1:34 PM [facility] Urine Urine specimen obtained by clean catch procedure / Unknown 06/22/2024 2:00 PM EST 06/22/2024 6:31 PM EST Isai Reaves MD LAB MICROBIOLOGY - GENERAL ORDER ALMA DELIA Final Result Performing Organization Address [facility]/ZIP Co de Phone Number [facility] [address] [place] [address], [place] [phone] documented in this encounter Visit Diagnoses Diagnosis Type 2 diabetes mellitus without complications (CMS/HCC) documented in this encounter Care Teams Cook Boat Relationship Specialty Start Date End Date Isai Reaves MD [address] [place] [address], [phone] PCP - General Family Medicine 05/08/24 documented as of this encounter
--- OUTSIDE RECORDS SUMMARY | 2024-08-28 14:21 | XMS_ITS | Encounter Summary ---
Author Organization [facility] Address [address] [place] [address] Care Team Providers Care Laboratory Development Technician Name Role Phone Isai Reaves MD Primary Care Provider [phone] Encounter Details Date Type Department Care Team (Late st Contact Info) Description 07/08/2024 Lab Requisition [facility] - Main Lab [address] [place] [address] Isai Reaves MD [address] [place] [address] [address] [place], [phone] Other [facility]p (current) drug therapy Social History Tobacco Use [...] COUNT Routine 07/08/2024 5:10 AM EST Other m[facility]p (current) drug therapy BASIC METABOLIC PANEL Routine 07/08/2024 5:10 AM EST Other m[facility]p (current) drug therapy documented in this encounter Results * (ABNORMAL) Basic metabolic panel (07/08/2024 5:10 AM EST) Sodium 137 133 - 145 mmol/L LAB CHEMISTRY METHOD 07/08/2024 8:44 AM EST [facility] Potassium 4.4 3.5 - 5.5 mmol/L LAB CHEMISTRY METHOD 07/08/2024 8:44 AM EST [facility] Chloride 105 96 - 110 mmol/L LAB CHEMISTRY METHOD 07/08/2024 8:44 AM [facility] CO2 25 21 - 32 mmol/L LAB CHEMISTRY METHOD 07/08/2024 8:44 AM [facility] Anion Gap 7 3 - 11 LAB CHEMISTRY METHOD 07/08/2024 8:44 AM [facility] Glucose 151(H) 70 - 100 mg/dL LAB CHEMISTRY METHOD 07/08/2024 8:44 AM [facility] BUN 25 5 - 25 mg/dL LAB CHEMISTRY METHOD 07/08/2024 8:44 AM [facility] Creatinine 1.47(H) 0.70 - 1.30 mg/dL LAB CHEMISTRY METHOD 07/08/2024 8:44 AM [facility] eGFR 56(L) >=60 mL/min/1. 73m2 LAB CHEMISTRY METHOD 07/08/2024 8:44 AM [facility] Comment:Calculation based on the??Chronic Kidney Disease Epidemiology Collaboration (CKD-EPI) equation refit??without adjustment for race. BUN/Creatinine Ratio 17.0 LAB CHEMISTRY METHOD 07/08/2024 8:44 AM [facility] Calcium 8.3(L) 8.5 - 10.5 mg/dL LAB CHEMISTRY METHOD 07/08/2024 8:44 AM [facility] Blood Venous blood specimen / Unknown Venipuncture / Unknown 07/08/2024 5:10 AM EST 07/08/2024 7:55 AM EST us Isai Reaves MD LAB BLOOD ORDERABLES Final Resul t [facility] [address] [place] [address], * (ABNORMAL) Complete blood count (07/08/2024 5:10 AM EST) WBC 9.6 4.8 - 10.8 K/mcL LAB HEMETOLOGY METHOD 07/08/2024 8:23 AM [facility] RBC 3.50(L) 4.50 - 5.50 M/mcL LAB HEMETOLOGY METHOD 07/08/2024 8:23 AM [facility] Hemoglobin 9.5(L) 13.5 - 17.5 g/dL LAB HEMETOLOGY METHOD 07/08/2024 8:23 AM [facility] Hematocrit 30.2(L) 42.0 - 54.0 % LAB HEMETOLOGY METHOD 07/08/2024 8:23 AM [facility] MCV 87.5 79.0 - 98.0 FL LAB HEMETOLOGY METHOD 07/08/2024 8:23 AM [facility] MCH 27.5 27.0 - 32.0 pcg LAB HEMETOLOGY METHOD 07/08/2024 8:23 AM [facility] MCHC 31.5(L) 32.0 - 37.0 g/dL LAB HEMETOLOGY METHOD 07/08/2024 8:23 AM [facility] RDW 13.5 11.0 - 15.0 % LAB HEMETOLOGY METHOD 07/08/2024 8:23 AM [facility] Platelets 347 130 - 400 K/mcL LAB HEMETOLOGY METHOD 07/08/2024 8:23 AM [facility] MPV 10.0 7.0 - 11.0 FL LAB HEMETOLOGY METHOD 07/08/2024 8:23 AM [facility] NRBC 0.0 <1.0 % LAB HEMETOLOGY METHOD 07/08/2024 8:23 AM [facility] NRBC Absolute 0.00 <0.10 K/mcL LAB HEMETOLOGY METHOD 07/08/2024 8:23 AM [facility] Blood Venous blood specimen / Unknown Venipuncture / Unknown 07/08/2024 5:10 AM EST 07/08/2024 7:55 AM EST us Isai Reaves MD LAB BLOOD ORDERABLES Final Resul t [facility] [address] [place] [address], documented in this encounter Visit Diagnoses Diagnosis Other intermediate project manager (current) drug therapy documented in this encounter Care Teams Laboratory Development Technician Relationship Specialty Start Date End Date Isai Reaves MD [address] [place] [address] [address] [place], [phone] PCP - General Family Medicine 05/08/24 documented as of this encounter
--- OUTSIDE RECORDS SUMMARY | 2024-08-28 14:21 | XMS_ITS | Encounter Summary ---
Author Organization [facility] Address [address] [place] [address] Care Team Providers Care Will Call Order Clerk Name Role Phone Isai Reaves MD Primary Care Provider [phone] Encounter Details Date Type Department Care Team (Late st Contact Info) Description 04/25/2024 Lab Requisition [facility] - Main Lab [address] [facility] [employer] [place] [address] Isai Reaves MD [address] [place] [address] [address] [place], [phone] Type 2 diabetes mellitus without complications [...] phlebotomy fee (04/27/2024 6:34 AM EST) Pathologist [facility] TRAVEL PHLEBOTOMY FEE Completed 04/27/2024 10:01 AM [facility] Blood Venous blood specimen / Unknown Venipuncture / Unknown 04/27/2024 6:34 AM EST 04/27/2024 9:44 AM EST us Isai Reaves MD LAB BLOOD ORDERABLES Final Resul t [facility] [address] [place] [address], [place] [phone] * Hepatic function panel (04/27/2024 6:34 AM EST) [facility] Total Protein 7.2 6.0 - 8.0 g/dL LAB CHEMISTRY METHOD 04/27/2024 11:01 AM [facility] Albumin 3.5 3.2 - 5.0 g/dL LAB CHEMISTRY METHOD 04/27/2024 11:01 AM [facility] Total Bilirubin 0.3 0.0 - 1.4 mg/dL LAB CHEMISTRY METHOD 04/27/2024 11:01 AM [facility] Bilirubin, Direct 0.2 0.0 - 0.3 mg/dL LAB CHEMISTRY METHOD 04/27/2024 11:01 AM [facility] Bilirubin, Indirect 0.1 0.0 - 1.1 mg/dL LAB CHEMISTRY METHOD 04/27/2024 11:01 AM [facility] ALT (SGPT) 20 10 - 60 unit/L LAB CHEMISTRY METHOD 04/27/2024 11:01 AM [facility] AST (SGOT) 11 10 - 42 unit/L LAB CHEMISTRY METHOD 04/27/2024 11:01 AM [facility] Alkaline Phosphatase 77 42 - 121 unit/L LAB CHEMISTRY METHOD 04/27/2024 11:[address] [facility] Blood Venous blood specimen / Unknown Venipuncture / Unknown 04/27/2024 6:34 AM EST 04/27/2024 9:44 AM EST us Isai Reaves MD LAB BLOOD ORDERABLES Final Resul t Performing Organization Address City/[facility] [address]/ZIP Co de Phone Number [facility] [address] [place] [address], [place] [phone] * Thyroid stimulating hormone (04/27/2024 6:34 AM EST) TSH 2.43 0.40 - 4.00 mcIU/mL LAB CHEMISTRY METHOD 04/27/2024 11:[address] [facility] Blood Venous blood specimen / Unknown Venipuncture / Unknown 04/27/2024 6:34 AM EST 04/27/2024 9:44 AM EST us Isai Reaves MD LAB BLOOD ORDERABLES Final Resul t Performing Organization Address [facility] [address]/ZIP Co de Phone Number [facility] [address] [place] [address], [place] [phone] * Thyroxine free (04/27/2024 6:34 AM EST) Free T4 1.62 0.70 - 1.80 ng/dL LAB CHEMISTRY METHOD 04/27/2024 11:[address] [facility] Blood Venous blood specimen / Unknown Venipuncture / Unknown 04/27/2024 6:34 AM EST 04/27/2024 9:44 AM EST us Isai Reaves MD LAB BLOOD ORDERABLES Final Resul t Performing Organization Address City/[facility] [address]/ZIP Co de Phone Number [facility] [address] [place] [address], [place] [phone] * Lipid panel with reflex to direct LDL (04/27/2024 6:34 AM EST) Cholesterol 111 0 - 200 mg/dL LAB CHEMISTRY METHOD 04/27/2024 11:01 AM [facility] Triglycerides 92 0 - 150 mg/dL LAB CHEMISTRY METHOD 04/27/2024 11:01 AM [facility] HDL 42 >=40 mg/dL LAB CHEMISTRY METHOD 04/27/2024 11:01 AM [facility] LDL Calculated 51 0 - 100 mg/dL LAB CHEMISTRY METHOD 04/27/2024 11:01 AM [facility] VLDL Cholesterol Fabian 18.4 mg/dL LAB CHEMISTRY METHOD 04/27/2024 11:01 AM [facility] Non HDL Chol. (LDL+VLDL) 69 <145 mg/dL LAB CHEMISTRY METHOD 04/27/2024 11:01 AM [facility] Chol/HDL Ratio 2.6 0.0 - 4.4 LAB CHEMISTRY METHOD 04/27/2024 11:01 AM [facility] Blood Venous blood specimen / Unknown Venipuncture / Unknown 04/27/2024 6:34 AM EST 04/27/2024 9:44 AM EST us Isai Reaves MD LAB BLOOD ORDERABLES Final Resul t [facility] [address] [place] [address], documented in this encounter Visit Diagnoses Diagnosis Type 2 diabetes mellitus without complications (CMS/HCC) documented in this encounter Care Teams Will Call Order Clerk Relationship Specialty Start Date End Date Isai Reaves MD [address] [place] [address] [address] [place], [phone] PCP - General Family Medicine 05/08/24 documented as of this encounter
--- OUTSIDE RECORDS SUMMARY | 2024-08-28 14:21 | XMS_ITS | Data Portability ---
Author Organization [facility], Main Office Address [address] [facility], [address] [place] [address] Care Team Providers Care Family Court Counsellor Name Role Phone NICK CUETO Primary Care Provider [facility] - 3RD FLOOR OTHER Assessment No [...] Organization Details Recorded Time Diabetic foot ulcer 789573529 Active 2022 FENG KRAFT PA-C [address] , [address], [place], [address], [facility] [employer] [facility] 3 12:26:29 Type 2 diabetes mellitus with periphera l angiopath y 794132969 Active 2022 FENG KRAFT PA-C [address] , [address], [place], [address], [facility] [employer] 3 12:26:45 Renal disorder due to type 2 diabetes mellitus 555228548 Active 2022 FENG KRAFT PA-C [address], [address], [place], [address], [facility] [employer] 3 12:26:59 Periphera l neuropath y due to type 2 diabetes mellitus 931012881373 7 Active 2022 FENG KRAFT PA-C [address] , [address], [place], [address], [facility] [employer] 3 12:27:14 Essential hypertens ion 29839548 Active 2022 ARNEL MOSER-C [address], [address], [place], [address], [facility] 3 12:27:19 Dyslipide adrian 050976042 Active 2022 FLORA MOSERC [address], [address], [place], [address], [facility] 3 12:27:26 Autoimmun e thyroidit is 30146276 Active 2022 FENG KRAFT PA-C [address], [address], [place], [address], [facility] 3 12:27:35 Anemia 136483538 Active 2022 FENG KRAFT PA-C [address], [address], [place], [address], [facility] 3 12:27:41 Chronic hyponatre adrian 24264603 Active 2022 FENG KRAFT PA-C [address], [address], [place], [address], [facility] 3 12:27:47 Depressiv e disorder 23413275 Active 2022 FENG KRAFT PA-C [address], [address], [place], [address], [facility] 3 12:27:52 Vitamin D deficienc y 45508281 Active 2022 FENG KRAFT PA-C [address], [address], [place], [address], [facility] 3 12:28:00 Pain of right knee joint 288341978699 100 Active 2022 FLORA MOSERC [address], [address], [place], [address], [facility] 3 12:28:14 Congestiv e heart failure 89983626 Active 2022 details unk FLORA MOSERC [address], [address], [place], [address], [facility] 3 12:28:32 Uncontrol led type 2 diabetes mellitus 615457688 Active 2022 Puja Luke MD [address] [facility], [address], [place], [address], [facility] 3 18:14:15 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 892725957144 05858 Active 2022 Puja Luke MD [address] [facility], [address], [place], [address], [facility] 3 19:57:21 Chronic osteomyel itis of right foot 864729039272 9104 Active 2022 Puja Luke MD [address] [facility], [address], [place], [address], [facility] 3 19:59:07 Acute cholecyst itis 35084014 Active 2023 s/p [facility] 06/2023 ARTURO PAZ NP [address] [facility], [address], [place], [address], [facility] 4 14:22:11 Impaired cognition 139843266 Active 2023 SLUMS completed 07/25/23, score 17 ARTURO PAZ NP [address] [facility], [address], [place], [address], [facility] 4 11:03:32 Acute osteomyel itis of right foot 018858419962 9104 Active 2023 ARTURO PAZ NP [address] [facility], [address], [place], [address], [facility] 4 11:04:08 Diabetic foot ulcer 676088694 Active 2024 Gail Goncalves NP [address] [facility], [address], [place], [address], [facility] 5 10:42:27 Problem Notes None recorded. Medical Equipment None Reported. Allergies Allergen ID Allergen Name Allergen Category Reaction Reaction Severity Criticality Documentation Date Start Date Code Code System Note Provider Name and Address Organization Details Recorded Time 82235 Lipitor medicatio n rash Not available Not available 07/02/2022 36844 5 RxNorm can take Zocor Not Available Not Available Not Available Vitals Date Recorded Body height Body weight Heart rate Respiratory rate Body temperature Oxygen saturation Oxygen saturation in Arterial blood by Pulse oximetry Systolic blood pressure Diastolic blood pressure Provider Name and Address Organization Details Last Updated DateTime 5 165.1 cm 709451. 05 g 70 /min 18 /min 97.9 [degF] 97 % 97 % 128 mm[Hg] 72 mm[Hg] Gail Goncalves NP [address] [facility], [address], [place], [address], [facility] 5 12:08:04 Date Recorded Body height Heart rate Respiratory rate Body temperature Oxygen saturation Oxygen saturation in Arterial blood by Pulse oximetry Systolic blood pressure Diastolic blood pressure Provider Name and Address Organization Details Last Updated DateTime 5 165.1 cm 68 /min 18 /min 97.5 [degF] 96 % 96 % 134 mm[Hg] 82 mm[Hg] Gail Goncalves NP [address] , [address], [place], [address], [facility] 5 17:01:16 Date Recorded Body height Body weight Heart rate Respiratory rate Body temperature Oxygen saturation Oxygen saturation in Arterial blood by Pulse oximetry Systolic blood pressure Diastolic blood pressure Provider Name and Address Organization Details Last Updated DateTime 5 165.1 cm 314852. 24 g 80 /min 18 /min 98.1 [degF] 99 % 99 % 132 mm[Hg] 76 mm[Hg] Gail Goncalves NP [address] [facility] [address], [place], [address], [facility] 5 08:07:35 Date Recorded Body height Body weight Body mass index (BMI) Heart rate Respiratory rate Body temperature Oxygen saturation Oxygen saturation in Arterial blood by Pulse oximetry Systolic blood pressure Diastolic blood pressure Provider Name and Address Organization Details Last Updated DateTime 5 165.1 cm 693022. 24 g 42.8 kg/m2 64 /min 18 /min 98.6 [degF] 97 % 97 % 132 mm[Hg] 64 mm[Hg] Gail Goncalves NP [address] [facility], [address], [place], [address], [facility] 5 13:33:43 Date Recorded Body height Heart rate Respiratory rate Body temperature Oxygen saturation Oxygen saturation in Arterial blood by Pulse oximetry Systolic blood pressure Diastolic blood pressure Provider Name and Address Organization Details Last Updated DateTime 5 165.1 cm 72 /min 18 /min 97.5 [degF] 98 % 98 % 128 mm[Hg] 68 mm[Hg] ARTURO PAZ NP [address] [facility], [address], [place], [address], [facility] 5 15:54:39 Date Recorded Body height Body weight Heart rate Respiratory rate Body temperature Oxygen saturation Oxygen saturation in Arterial blood by Pulse oximetry Systolic blood pressure Diastolic blood pressure Provider Name and Address Organization Details Last Updated DateTime 5 165.1 cm 788756. 24 g 72 /min 17 /min 98 [degF] 98 % 98 % 128 mm[Hg] 68 mm[Hg] Gail Goncalves NP [address] [facility], [address], [place], [address], [facility] 5 10:03:10 Social History Question Answer Notes LastModified by Organization Details LastModified Time Tobacco Smoking Status Never Smoker FENG KRAFT PA-C [address] [facility], [address], [place], [address], [facility] 07/02/2022 11:36:18 Do You Have An Advance Directive? Yes Full Code; All Interventions [email or web address] Information not available 07/06/2022 What Is Your Level Of Alcohol Consumption? None Information not available 07/02/2022 What Is Your Code Status? Full Code Information not available 07/03/2022 Where Do You Live? Nursinghome Now LTC At [facility], Previously Lived At [facility] [place], Awaiting [facility] Placement Information not available 01/23/2024 Legal Guardian? No Informati on not available 07/03/2022 Do You Have A Medical Power Of Global Program Manager? Yes Has HCP - Invoke Has Newer HCP Per [employer], Family Recently Reunited Information not available 07/08/2024 What Was The Date Of Your Most Recent Tobacco Screening? 07/08/2024 Information not available 07/08/2024 Do You Have An Out Of Hospital DNR? No Information not available 07/03/2022 What Is Your Relationship Status? Single Information not available 07/03/2022 Do You Use Any Illicit Or Recreational Drugs? No [email or web address] Information not available 07/02/2022 Has Tobacco Cessation Counseling Been Provided? No N/A As Pt Is A Non-smoker Information not available 07/03/2022 Do You Or Have You Ever Used Any Other Forms Of Tobacco Or Nicotine? No [email or web address] Information not available 07/02/2022 Sex: Unknown Functional Status None recorded. Mental Status None recorded. Family History Relationship Description Onset Age of this Age Resolved Age Notes LastModified by Organization Details LastModified Time Father Essential hypertension dece ed [email or web address] Not available 07/02/2022 11:34:54 Mother Type 2 diabetes mellitus dece ed [email or web address] Not available 07/02/2022 11:35:10 Medical History No medical history recorded. Immunizations Vaccine Type Date Status Note Provider Nam e and Address Organization Details Recorded Time COVID-19, mRNA, LNP-S, PF, 30 mcg/0.3 mL dose 1 completed FENG KRAFT PA-C [address] [facility], [address], [place], [address], [facility] 07/02/2022 11:29:08 COVID-19, mRNA, LNP-S, PF, 30 mcg/0.3 mL dose 1 completed FENG KRAFT PA-C [address], [address], [place], [address], [facility] [employer] [facility] 07/02/2022 11:29:11 Tdap [address] MOSER [address], [address], [place], [address], [facility] [employer] [facility] 07/02/2022 11:29:24 pneumococcal polysaccharide PPV23 7 completed PERFECTO MOSER [facility], [address], [place], [address], [facility] 07/02/2022 11:29:42 Influenza, split virus, quadrivalent, PF 3 completed FENG KRAFT PA-C [address] [facility], [address], [place], [address], [facility] 08/10/2022 13:17:40 pneumococcal polysaccharide PPV23 3 completed FENG KRAFT PA-C [address] [facility], [address], [place], [address], [facility] 08/10/2022 13:18:04 COVID-19, mRNA, LNP-S, bivalent, PF, 30 mcg/0.3 mL dose 3 completed FENG KRAFT PA-C [address] [facility], [address], [place], [address], [facility] 08/10/2022 13:18:32 Influenza, adjuvanted, quadrivalent, PF 3 completed Nyla bullard, [facility] 08/09/2023 17:56:04 COVID-19, mRNA, LNP-S, bivalent, PF, 30 mcg/0.3 mL dose 3 [facility]12[facility] 11:51:52 Past Encounters Encounter ID Performer Location Encounter Start Date Encounter Closed Date Diagnosis/Indication Diagnosis SNOMED-CT Code Diagnosis ICD10 Code Diagnosis Note [id number] FENG KRAFT PA-C [address] [address] 07/02/2022 11:11:40 07/24/2022 15:26:07 Diabetic foot ulcer 728149590 E13.621 ErtapenemP robioticNe eds weekly CBC with [...] 2 vanda betes mellitus with peripheral angiopathy 162697475 E11.51 Aggressive basal-bolu s regimen likely targets his dietary non-compli ance at home. Since doesn't have access to the same unhealthy foods while here, will decrease his prandial insulin to 10 ux SQ tid but hold until eats at least 50% of mealContin ue correction al insulinMon itor sugars and adjust meds prnOn STACY-I for renal protection Essential hypertension 52746210 I10 Monitor BPs and adjust meds prn Dyslipidemia 643150381 E 78.5 on medsoutpat ient f/u with PCP Anemia 335176000 D64.9 Follow CBC Autoimmune thyroiditis 53482093 E06.3 Biochemica lly euthyroid on recent labs Chronic hyponatremia 503 51445 E87.1 ?some degree of pseudohypo natremia from hyperglyce miaCould be related to HCTZ+/- SSRICan tolerate serum Na at least 128Follow divalents Congestive heart failure 02908127 I50.9 Compensate dNo details available Depressive disorder 3548 9007 F32.A Denies SI/HIConti nue LexaproCon it intern psych consult Pain of ri ght knee joint 7357237096 38729 M25.561 PT/OT Vitamin D deficiency 347 27285 E55.9 RepletingO utpatient f/u after d/c [id number] Puja Luke MD [address] [address] 07/03/2022 15:31:56 07/11/2022 20:18:12 Diabetic foot ulcer 531621465 L97.518 Continue wound care as ordered.Co ntinue [...] Dr. Kristen Fraser, ID Type 2 vanda jeremiah mellitus with peripheral angiopathy 280720154 E11.51 E11.42 E11.65 Last HgA1C at [facility] was 2019 and it was >14.Sugars great since here, likely because diet more controlled .Continue Tresiba 40U qd, Novolog 10U with meals, metformin 500 mg BID, and Trulicity 1.5 mg weekly.Con tinue gabapentin 100 mg q 8 hrs for neuropathy Continue fingerstic ks QID and will check HgA1C with next labs. Essential hypertension 25779033 I10 Good control on HCTZ 25 mg qd, lisinopril 10 mg qd and amlodipine 10 mg po qd.Monitor BP and labs. Dyslipidemia 976914732 E 78.49 Continue Zetia 10 mg po qd, simvastati n 40 mg qhs and fenofibrat e 54 mg qd.Monitor labs as outpt. Anemia 528868404 D64.89 Stable.Mon itor Autoimmune thyroiditis 08585768 E06.3 Had nl TSH inpt.Tonio nue levothyrox ine 150 mcg qd.Monitor as outpt Chronic hyponatremia 503 27688 E87.1 Only sl. low.No need to change meds or fluid restrict.M onitor. Congestive heart failure 06872485 I50.22 Appears euvolemic. Continue meds as above.Maame tor resp. status, fluid status, wts and labs. Depressive disorder 3548 9007 F33.0 Mood good today.Cont inue escitalopr am 10 mg qd.Monitor mood.Consu lt psych prn Pain of ri ght knee joint 0624697124 49109 M25.561 PT/OT Vitamin D deficiency 347 87904 E56.8 Continue Vitamin D 2000 IU qd.Monitor as outpt. Asthenia 57336514 R53.1 Somewhat deconditio paige.Needs PT/OT for strengthen ing, balance, gait training, safety and function.C ontinue fall precaution s.Monitor for safety. [id number] FENG KRAFT PA-C [facility] [address] [address] 07/04/2022 14:48:30 07/11/2022 20:23:38 Diabetic foot ulcer 440947438 E13.621 ErtapenemC RP downweekly labsfollow clinically PT/OT [id number] FENG KRAFT PA-C [facility] [address] [address] 07/09/2022 17:02:17 07/26/2022 10:40:09 Diabetic foot ulcer 526138821 L97.518 continue ertapenemC RP slightly up from prior week but overall downFollow labsFollow clinically Fever 442299080 R50.9 low-gradee xam benignno symptomson ertapenem as abovefollo w clinically [id number] FENG KRAFT PA-C [facility] [address] [address] 07/16/2022 10:37:05 08/06/2022 16:22:25 Type 2 diabetes mellitus with peripheral angiopathy 944502215 E11.51 d/c prandial insulincor rectional insulin onlyMonito r sugars and adjust meds prnOn STACY-I for renal protection [id number] FENG KRAFT PA-C [facility] [address] [address] 07/20/2022 14:38:49 08/14/2022 15:20:39 Type 2 diabetes mellitus with peripheral angiopathy 788557420 E11.51 off prandial insulinsug ars well-contr olledMonit or sugars and adjust meds prnOn STACY-I for renal protection Diabetic foot ulcer 3710 74829 L97.518 on ertapenem until 08/10foot looks goodinflam matory markers slightly variable since admit but overall downremain s afebrilef/ u prn [id number] FENG KRAFT PA-C [facility] [address] [address] 08/03/2022 16:00:24 08/14/2022 15:28:34 Unintentional weight loss 838647495 R63.4 some degree of wt loss is desirable in this patientdoe s not have as much access to the unhealthie r foods that he typically eats in the communityb iochemical ly euthyroid on recent labsmonito r weightsRD also following Type 2 vanda betes mellitus with peripheral angiopathy 847914647 E11.51 off prandial insulinsug ars well-contr olledMonit or sugars and adjust meds prnConside r decrease frequency of monitoring sugarsOn STACY-I for renal protection Diabetic foot ulcer 3710 72348 L97.518 on ertapenem until 08/10foot looks goodweekly labsf/u prn [id number] FENG KRAFT PA-C [facility] [address] [address] 08/10/2022 14:48:36 08/14/2022 15:55:14 Diabetic foot ulcer 187214333 L97.518 completing abx todayd/c PICC after last dose of ertapenemf /u prn [id number] Isai Reaves MD [facility] [address] [address] 09/03/2022 08:37:09 09/06/2022 16:25:25 Diabetic foot ulcer 371709811 L97.518 recently completed ertapenemc ontinue wound careconcer n for infection in patient with recent sepsiscbc with diff and blood cultures x 2continue to monitorto ED for acute decompensa tion [id number] FENG KRAFT PA-C [facility] [address] [address] 09/20/2022 11:07:47 09/25/2022 15:12:14 Bacteremia caused by Methicillin resistant Staphylococcus aureus 6448129365 2403039 R78.81 and E. faecalis Vanc/linez olid until 10/26/22 Needs weekly CBCD, BMP, and Vanc trough weekly while on abx-titrat e Vanc to 10-20 since no vertebral involvemen tHold Lexapro while on linezolidd /c prn Zofran since will be on linezolid Add probiotic x 7 weeks Chronic os teomyelitis of right foot 5083311584 643293 M86.671 s/p TMAAbx as aboveDress ings as recommende dRecommend ed to f/u wound clinic even though surgical wound - clarify if should go to [facility] wound clinic or if can be followed by in-house drug discovery informatics specialist .Has previously had Vit C, Zinc, and Vit A - not sure worth repeatingN eeds tight glycemic control to promote wound healing Uncontroll ed type 2 diabetes mellitus 348458338 E11.65 Regimen has undergone multiple adjustment s since admitLikel y more hyperglyce bennie than usual given underlying infectionM onitor sugars and adjust meds prnRecent A1c 7.7On STACY-I for renal protection [id number] Puja Luke MD [address] [place] [address] 09/21/2022 17:35:51 09/25/2022 15:22:33 Bacteremia caused by Methicillin resistant Staphylococcus aureus 9957961752 9021945 R78.81 B95.62 And E. faecalisWi th increased sxs today. Temp was 100 yest, WNL today.Cont inue vanco titrated to troughs 10-20 and linezolid 600 mg BID, both until 10/26/22An d probiotic BID until 11/02Will get labs in AM-CBC, CMP, ESR, CRP and vanco trough. Chronic os teomyelitis of right foot 4113625609 940873 M86.671 TMA was healing poorly inpt.Need to monitor closely.Ne eds tight glycemic control and increased protein for healing.F/ U with surgeon and wound care as planned.Ma y need BKA if not healing well. Uncontroll ed type 2 diabetes mellitus 210490619 E11.65 E11.52 Needs tighter control to help wound healing. Sugars have been high since return, likely due to infection. Will increase metformin to 1000 mg BID and continue Tresiba 40U qd, and Trulicity 1.5 mg weekly.Als o SSI only ordered BID, change to TID.Contin ue gabapentin 100 mg q 8 hrs for neuropathy Monitor fingerstic ks QID. Asthenia 74759182 R53.1 Is deconditio paige.Needs PT/OT for strengthen ing, balance, gait training, safety and function.C ontinue fall precaution s.Monitor for safety. Essential hypertension 45121858 I10 Remains in good control since HCTZ d/c'dConti nue lisinopril 10 mg qd and amlodipine 10 mg po qd.Monitor BP and labs. Dyslipidemia 955425885 E 78.49 Continue Zetia 10 mg po qd, simvastati n 40 mg qhs and fenofibrat e 54 mg qd.Monitor labs as outpt. Anemia 732754368 D64.89 Stable.Mon itor Autoimmune thyroiditis 78847972 E06.3 Had nl TSH inpt.Tonio nue levothyrox ine 150 mcg qd.Monitor as outpt Chronic hyponatremia 503 70920 E87.1 Was 125 in ED on last admission. HCTZ d/c'd with angelamen t.Monitor weekly for now. Congestive heart failure 19045179 I50.22 Appears euvolemic. Continue meds as above.Maame tor resp. status, fluid status, wts and labs. Depressive disorder 4478 9007 F33.0 Mood ok today.Cont inue escitalopr am 10 mg qd.Monitor mood.Consu lt psych prn [id number] ARTURO PAZ, ODALYS [address] [place] [address] 10/04/2022 13:51:43 10/10/2022 11:42:32 Bacteremia caused by Methicillin resistant Staphylococcus aureus 9607156878 0869338 R78.81 B95.62 And E. faecalisVS SLabs stableVanc [...] saturday Chronic os teomyelitis of right foot 8790605013 494743 M86.671 TMA was healing poorly inpt.Tx. as aboveConti nue to monitor closely.Ne eds tight glycemic control and increased protein for healing.F/ U with surgeon and wound care as planned.Ma y need BKA if not healing well. Uncontroll ed type 2 diabetes mellitus 194727289 E11.65 E11.52 Needs tighter control to help [...] q 8 hrs for neuropathy Essential hypertension 97224419 I10 Remains in good control since HCTZ d/c'dConti nue lisinopril 10 mg qd and amlodipine 10 mg po qd.Monitor BP and labs. Anemia 855254121 D64.89 Stable. Hgb in 8s.Monitor labs, s/s bleeding Chronic hyponatremia 503 01619 E87.1 Was 125 in ED on last admission, now 133.HCTZ d/c'dMonit or weekly for now. [id number] ARTURO PAZ NP [address] [place] [address] 10/11/2022 12:08:15 10/12/2022 12:39:48 Bacteremia caused by Methicillin resistant Staphylococcus aureus 1627009184 1409695 R78.81 B95.62 And E. faecalisVS SLabs stableVanc [...] saturday Chronic os teomyelitis of right foot 5830544766 642849 M86.671 TMA was healing poorly inpt.Tx. as aboveConti nue to monitor closely.Ne eds tight glycemic control and increased protein for healing.F/ U with surgeon and wound care as planned.Ma y need BKA if not healing well. Uncontroll ed type 2 diabetes mellitus 555415144 E11.65 E11.52 Needs tight control to help [...] q 8 hrs for neuropathy Essential hypertension 51682840 I10 Remains in good control since HCTZ d/c'dConti nue lisinopril 10 mg qd and amlodipine 10 mg po qd.Monitor BP and labs. Anemia 677391951 D64.89 Stable. Hgb in 8.9 -> 8Monitor labs, s/s bleeding Chronic hyponatremia 503 11266 E87.1 Was 125 in ED on last admission, now 137.HCTZ d/c'dMonit or weekly for now. [id number] Puja Luke MD [address] [address] 10/12/2022 12:52:29 10/16/2022 12:09:59 Nausea and vomiting 36631944 R11.2 Started on Zofran on 10/10, labs [...] on labs, consider ED eval Acute diarrhea 055266256 R19.7 As above.Also will check for c. diff Bacteremia caused by Methicillin resistant Staphylococcus aureus 4897076421 3539511 R78.81 B95.62 And E. faecalisVa nco level [...] month. Chronic os teomyelitis of right foot 7591768286 657279 M86.671 As above. Uncontroll ed type 2 diabetes mellitus 036878038 E11.65 E11.52 Sugars have been running low, this AM sugar charted as 460, but on review with nurse it was actually 160, and she will correct this in computer.C ontinue gabapentin 100 mg q 8 hrs for neuropathy Essential hypertension 54438761 I10 BP in good control.Co ntinue lisinopril 10 mg qd and amlodipine 10 mg po qd.Monitor BP and labs. Anemia 685492905 D64.89 Dropped a little this week, from 8.9 -> 8Monitor labs, s/s bleedingTr ansfuse for hgb <7 Chronic hyponatremia 503 89449 E87.1 Na+ nl at 137 on 10/08.Will recheck today as pt drinking water and reji alvin without eating. Type 2 vanda betes mellitus with peripheral angiopathy 896997416 E11.52 E11.42 Sugars have been running low, this AM sugar charted as 460, but on review with nurse it was actually 160, and she will correct this in computer.W ill hold trulicity as above.Cont inue Tresiba 30U qd, metformin 1000 mg BID and SSI.Contin ue gabapentin 100 mg q 8 hrs for neuropathy Continue fingerstic ks QID and HgA1C [id number] Puja Luke MD [address] [address] 10/18/2022 17:28:42 10/24/2022 16:44:04 Acute cholecystitis 10341030 K81.0 S/P cholecyste ctomy.Ricardo vering as expected.M onitor wound.F/U with surgeon as planned. Type 2 vanda betes mellitus with peripheral angiopathy 667509293 E11.52 E11.42 Will restart trulicity, now that we know N/V were not due to this.[place] 1.5 mg weekly.Con tinue Tresiba 30U qd, metformin 1000 mg BID and SSI.Contin ue gabapentin 100 mg q 8 hrs for neuropathy Continue fingerstic ks QID and HgA1C Bacteremia caused by Methicillin resistant Staphylococcus aureus 1999040139 9170396 R78.81 B95.62 Abxs d/c'd inpt.Tonio nue to monitor CBCD, CMP, CRP q saturdayF/U with surgeon as planned to arrange skin graft. Chronic os teomyelitis of right foot [id number] 230352 M86.671 As above. Essential hypertension 57464068 I10 BP in good control.Co ntinue lisinopril 10 mg qd and amlodipine 10 mg po qd.Monitor BP and labs. Anemia 656527020 D64.89 Dropped post-op and required transfusio n.Now back to baseline.M onitor weekly. Chronic hyponatremia 503 86185 E87.1 WNL while inpt.Monit or prn. [id number] ETHAN Sidhu [facility] [address] [facility] [place] [address] 10/23/2022 14:44:16 10/31/2022 08:37:50 Acute cholecystitis 88617719 K81.0 S/P cholecyste ctomyRecov eringMonit or woundF/U with surgeon Type 2 vanda betes mellitus with peripheral angiopathy 785203832 E11.52 E11.42 BS 100s to 200s, once at 350Trulici ty 1.5 mg weeklyTres iba 30U qdmetformi n 1000 mg BIDSliding scalegabap entin 100 mg q 8 hrs for neuropathy BS QID and adjust meds prn Bacteremia caused by Methicillin resistant Staphylococcus aureus 4500201657 9090062 R78.81 B95.62 Abxs d/c'd inptContin ue to monitor CBCD, CMP, CRP q saturday - results as above for 10/22/22U with surgeon as planned to arrange skin graft. Essential hypertension 28483309 I10 BP normallisi nopril 10 mg qdamlodipi ne 10 mg qdMonitor BP and labs. [id number] ETHAN Sidhu [facility] on [address] [place] [address] 10/30/2022 07:25:57 11/05/2022 11:40:02 Acute cholecystitis 94711421 K81.0 S/P cholecyste ctomyRecov eredMonito r woundF/U with surgeon Type 2 vanda betes mellitus with peripheral angiopathy 614920112 E11.52 E11.42 BS normal - 100sTrulic ity 1.5 mg weeklyTres iba 30U qdmetformi n 1000 mg BIDdc Sliding scalegabap entin 100 mg q 8 hrs for neuropathy decrease BS to bid and adjust meds prn Bacteremia caused by Methicillin resistant Staphylococcus aureus 6591307122 0280602 R78.81 B95.62 Abxs d/c'd inptCBCD, bmp q saturday - results as above for 10/29/22 with surgeon as planned to arrange skin graft. Essential hypertension 56220774 I10 BP normallisi nopril 10 mg qdamlodipi ne 10 mg qdMonitor BP and labs. [id number] ARTURO PAZ NP [facility] [address] [place] [address] 12/05/2022 10:04:59 12/07/2022 09:15:39 Acute cholecystitis 91944620 K81.0 S/P cholecyste ctomyRecov eredF/U with surgeon prn Type 2 vanda betes mellitus with peripheral angiopathy 313731320 E11.52 E11.42 BS excellent control - mostly [...] Bacteremia caused by Methicillin resistant Staphylococcus aureus 5644616697 1247640 R78.81 B95.62 Resolved,F /U with surgeon as planned to arrange skin graft. Essential hypertension 86523085 I10 BP stableCont inue:lisin opril 10 mg qdamlodipi ne 10 mg qdMonitor BP and labs. Anemia 298858322 D64.89 Improving. Hgb now 10Monitor CBCs Autoimmune thyroiditis 67543360 E06.3 Continue levothyrox ine 150 mg dialyTSH yearly and prn Chronic hyponatremia 503 59732 E87.1 Most recent level 143.Off HCTZMonito r prn Congestive heart failure 66678128 I50.22 Not on meds at this time.Monit or closely for decompensa tion. Depressive disorder 3548 9007 F33.0 Continue escitalopr am 10 mg daily Chronic os teomyelitis of right foot 5493807077 830448 M86.671 s/p TMA, healing/im proving per nsg.F/U with surgeon, followed by wound team here.Tonio nue to monitorLab s, VS stable Dyslipidemia 281270167 E 78.49 Continue zetia 10 mg daily, simvastati n 40 mg daily, and fenofibrat e 54 mg dailyLipid panel LFTs q6-12 months Vitamin D deficiency 347 75296 E56.8 Continue po supplement D level prn [id number] Francoise Foster MD [facility] [address] 01/23/2023 07:41:28 01/25/2023 13:03:16 Type 2 diabetes mellitus with peripheral angiopathy 751492447 E11.52 E11.42 Tresiba 20U qamTrulici ty 1.5 mg SC weeklymetf ormin 1000 mg bidwill monitor Essential hypertension 81318865 I10 amlodipine 10 mg dailylisin opril 10 mg dailywill monitor Chronic os teomyelitis of right foot 9968827406 500316 M86.671 s/p TMAinfecti on thought to have been resolvedwa s to see surgeon for skin graft Hyperlipidemia 26192698 E78.49 simvastati n 40 mg dailyezeti mibe 10 mg dailyfenof ibrate 54 mg dailywill monitor Mixed anxi ety and depressive disorder 021285851 F41.8 escitalopr am 10 mg dailywill monitor Hypothyroidism 04416522 E03.8 levothyrox ine 150 mcg dailywill monitor [id number] Gail Goncalves NP [facility] [address] [address] 01/25/2023 09:30:40 01/29/2023 11:32:13 Chronic osteomyelitis of right foot 4490950614 948696 M86.671 s/p TMAinfecti on thought to have been resolved, wound remains continue with wound team was to see surgeon for skin graft, will check with nsg about this today Will continue with wound team care and to finish doxycyclin e with monitoring for fever, chills, increased warmth, malodor or s/s of infection. monitor labs for weekly for 2 more weekly and trend [id number] Gail Goncalves NP [facility] [address] 02/22/2023 08:22:22 02/26/2023 11:18:47 Chronic osteomyelitis of right foot 5256004038 201340 M86.671 s/p TMAinfecti on thought to have [...] wound area with Kerlix Qday and prn. [id number] ARTURO PAZ NP [address] [address] 03/19/2023 11:48:52 03/25/2023 10:30:24 Chronic osteomyelitis of right foot 5672646084 549022 M86.671 s/p TMAinfecti on thought to have been resolved, wound remainsrec ently treated with doxycyclin e for concern of cellulitis , now improved.C ontinue local tx. per Wound team hereWill repeat labs x 1 in am - CBC, CRP, BMPWas to see surgeon for skin graft, nsg to check into this, readdranika contreras today. Appears TMA was done at [facility] [place] Dem[place], will refer back for evaluation re: grafting.C ontinue to monitor VS, wound for worsening, s/s infection, pain Renal diso rder due to type 2 diabetes mellitus 507285014 E11.21 Insulin reduced in November due to [...] csRenal referral if worsen Congestive heart failure 58750784 I50.22 Not on meds at this time.Monit or closely for decompensa tion. Essential hypertension 58632421 I10 BP stableCont inue:lisin opril 10 mg qd - may need to reconsider use due to bump in Bun/Creat. - repeating CMP x 1 in am then q 3 monthsamlo dipine 10 mg qdMonitor BP and labs. Dyslipidemia 002921748 E 78.49 Continue zetia 10 mg daily, simvastati n 40 mg daily, and fenofibrat e 54 mg dailyRecen t LFTs WNR, check q 3 months (included in CMP)Lipid panel x 1 in am, then q 6 months Chronic hyponatremia 503 19350 E87.1 Most recent level 135Remains off HCTZMonito r prn Anemia 669441216 D64.89 Stable/Imp rovedHgb now 10.4Monito r CBC q 6 months and prn Depressive disorder 3548 9007 F33.0 Continue escitalopr am 10 mg daily Autoimmune thyroiditis 29520416 E06.3 Continue levothyrox ine 150 mg dialyTSH x 1 in am then yearly and prn Peripheral neuropathy due to type 2 diabetes mellitus 9905049127 107 E11.42 continue gabapentin 100 mg tidmonitor pain, adjust dose prn [id number] Gail Goncalves NP [facility] [address] 04/03/2023 13:24:30 04/08/2023 11:04:52 Chronic osteomyelitis of right foot 6421525805 326640 M86.671 s/p TMAinfecti on thought to have been resolved, wound remains and recently treated with doxycyclin e for concern of cellulitis , now improved.C ontinue local tx. per Wound team here and dressings per wound team with hydrofera blue and gauzeWas to see surgeon for skin graft.Appe ars TMA was done at [facility] [place]. Dempsey, will refer back for evaluation re: grafting. Nursing to sched fu for him.Contin ue to monitor VS, wound for worsening, s/s infection, pain [id number] Francoise Foster MD [facility] [address] [address] 05/03/2023 08:11:02 05/07/2023 09:19:00 Diabetic foot ulcer 331044011 L97.518 s/p TMA:per wound care teamPT/OT Type 2 vanda betes mellitus with peripheral angiopathy 015959890 E11.52 E11.42 Tresiba 20U qamTrulici ty 1.5 mg SC weeklymetf ormin 1000 mg bidwill monitor Chronic pain 43728298 G8 9.29 gabapentin 100 mg tidAPAP 650 mg q4h prnwill monitorPT/ OT Essential hypertension 59114139 I10 amlodipine 10 mg dailylisin opril 10 mg dailywill monitor Hyperlipidemia 07861768 E78.49 simvastati n 40 mg dailyezeti mibe 10 mg dailyfenof ibrate 54 mg dailywill monitor Hypothyroidism 98419231 E03.8 levothyrox ine 150 mcg dailywill monitor Mixed anxi ety and depressive disorder 482741851 F41.8 escitalopr am 10 mg dailywill monitor [id number] Gail Goncalves NP [address] [address] 06/07/2023 14:10:30 06/11/2023 14:50:16 Diabetic foot ulcer 180486239 L97.518 s/p TMA:per wound care team dressingss urgical appt with Dr. Dempsey on at 9:30am for graft06/07 start doxycyclin e 100 mg po bid x 14 days with probiotic x 17 days06/07 cbc and bmp on saturdayPT/O T prn Type 2 vanda betes mellitus with peripheral angiopathy 367674040 E11.52 E11.42 BS increased recently ? possibily related to diet and infection1 08/08/22 increase Trulicity from 1.5 mg to 3 mg SC manwpa30/1 11/13 start lispro ssi per per MintzcontT resiba 20U qammetform in 1000 mg bidtitrate insulin as neededdiet ician to find alternativ e snacks with notable wgt gainwill monitor Xerosis du e to atopic dermatitis 416278116 L85.3 notable dry scaly left foot with dm hxammonium lactate 12 % cream topically bid x 2 weeks, then dailymonit or [id number] Gail Goncalves NP [address] [address] 06/10/2023 15:56:28 06/12/2023 08:04:18 Diabetic foot ulcer 962368020 L97.518 s/p TMA:per wound care team dressingss urgical appt with Dr. Dempsey on at 9:30am for graft06/07 start doxycyclin e 100 mg po bid x 14 days with probiotic x 17 days to end on cbc and bmp on 8 result wbc 10.8 monitor closelycon it intern culture in futurePT/O T prn Type 2 vanda betes mellitus with peripheral angiopathy 809200486 E11.52 E11.42 BS increased recently ? possibily related to diet and infection- coming down with SSI and increase and abxbut still 300-400s 06/07/23 increase Trulicity from 1.5 mg to 3 mg SC gpqfoi21/1 11/13 start lispro ssi per per MintzcontT resiba 20U qammetform in 1000 mg bid 3 third steel pourer to find alternativ e snacks with notable wgt gain06/10 cont above, likely glucose increased due to infection and should resolve, increased trucility to start this week and will trend and titrate insulin as neededwill monitor Contusion of left great toe 9018706467 5157641 S90.112A has left hallux with ecchymotic areano infection noted, does have overgrown toenailon doxy already as above Subungual hematoma of middle finger of right hand 7648952281 2738198 S60.131A does not appear painful or infectedno t need to drain today or xraywash and wrap with a bandaid daily and prnalready on doxy as abovemonit or [id number] ARTURO PAZ NP [facility] [address] [facility] [facility] [address] 07/16/2023 14:04:20 07/19/2023 11:14:13 Acute cholecystitis 74493807 K81.0 Not much info provided about this from [facility], but had a lap choleAppar ently tolerated wellRecove ring without concern except for episode of vomiting x 1 today, unclear etiology. Staff is reporting he is eating a lot since his return as they didn't feed him in the hospital.. ..F/U with surgeon post op. Diabetic foot ulcer 3710 47470 L97.518 chronic woundElect kostas skin graft attempted at [facility], did not take.Given IV abx. due to odor with wound.Tx. now alginate Ag, 4x4, kerlix q other day.Monito r VS, labs, wound, CSMFollow up with Dr. Dempsey 07/23CBC, BMP q saturday x 3 Type 2 vanda betes mellitus with peripheral angiopathy 353739559 E11.52 E11.42 Fair controlNon compliant with dietContin [...] rder due to type 2 diabetes mellitus 631427819 E11.21 Returned from [facility] with Creat 3.06 - much higher than baseline, unclear as to whyTaking adequate fluids.Vito n -Get labs from [facility] for comparison Check PVRs, assure bladder emptying, cath if >300 ml and update ANESTHESIA ATTENDING. ? if had carmona in hosp.Repea t BMP thursOn lisinopril , metformin, trulicity - may need to hold/stopR enal consult if labs don't improveAvo id nephrotoxi csRenal referral if worsen [id number] [facility] [address] 07/17/2023 14:35:02 07/19/2023 11:36:52 Acute cholecystitis 43782585 K81.0 lap david done while in hosp -07/11Apparen tly tolerated well?Recov ering without concern except for episode of vomiting x 1 yest and 1 this am. Tolerated lunch okay.startpep dang 20 mg po bid x 1 weekcontzo carol 4 mg po q 6 hours prn nauseaF/U with surgeon post op. Diabetic foot ulcer 3710 32756 L97.518 chronic woundElect kostas skin graft attempted at [facility] 07/10/23 , did not take.Given IV abx. due to odor with wound.Tx. now alginate Ag, 4x4, kerlix q other day.wound md seen pt today and will follow ordersMoni tor VS, labs, wound, CSMFollow up with Dr. Dempsey 07/23CB, BMP q saturday x 3 Renal diso rder due to type 2 diabetes mellitus 313861286 E11.21 Returned from [facility] with Creat 3.06 - much higher than baseline, unclear as to why and seems it was high as 1.52 on 07/11/23 per hosp labs. Taking adequate fluids but has loose stools.mon itor for dehydratio n closelyinc rease po fluids >2 liters/24 hours Plan -Get labs from [facility] for comparison Check PVRs, assure bladder emptying, cath if >300 ml and update ANESTHESIA ATTENDING. ? if had carmona in hosp.Repea t BMP thurs to monitor crOn lisinopril , metformin, trulicity - may need to hold/stopw ill encourage po fluidsRena l consult if labs don't improveAvo id nephrotoxi csRenal referral if worsen Type 2 vanda betes mellitus with peripheral angiopathy 529899626 E11.52 E11.42 Fair controlNon compliant with dietContin [...] also need to consider changing trulicty Vomiting 370341390 R11.1 0 vomited x 2 , possibly related to david?will also do resp panel although unlikely due to flu in the facilityco ntzofran 4 mg po q 6 hours prn nauseaadd pecid 20 mg po bid x 1 weekincrea se po fluids >2l/ronal itor Loose stool 542185598 R1 9.5 likely related to david?add low fat dietimmodi um 2 tabs po with first loose stool and 1 tab with each loose stool thereaffte r for up to 5 tab/daypus h fluidsbmp tomorrow to assess for dehydratio nmonitor Subungual hematoma of middle finger of right hand 2261398759 5210343 S60.131A resolvedno t need to drain today or xraywash and wrap with a bandaid daily and prnalready on doxy as abovemonit or [id number] ARTURO PAZ NP [address] [place] [address] 07/18/2023 10:47:13 07/23/2023 14:32:46 Acute cholecystitis 20406130 K81.0 GB removed in September 2022 despite most recent d/c paperwork reporting lap david.Has healed well. Diabetic foot ulcer 3710 80621 L97.518 chronic woundElect kostas skin graft attempted at [facility] last week, did not take, back to [...] labs, wound, CSMFollow up with Dr. Dempsey 07/23[facility], [facility] q saturday x 3 Renal diso rder due to type 2 diabetes mellitus 917044120 E11.21 Returned from [facility] with Creat 3.06 - much higher than baseline, unclear as to whyCreat in hosp. 1.86, 1.52Taking adequate fluids, but has vomited twice since his return and now has loose stool.[facility] jerzy PVRs, so far <100ml per staff.Repe at [facility] today still pendingOn lisinopril , metformin, trulicity - may need to hold/stopR enal consult ELBERT if labs don't improveAvo id nephrotoxi csaddend um - labs back Bun 62, Cr. 7.9 - sending to ER for eval and tx. Type 2 vanda betes mellitus with peripheral angiopathy 830110739 E11.52 E11.42 Fair [id number] in hosp 07/11/23 = 11.3%Non compliant with [...] consider changing trulicty Diarrhea and vomiting 24 4545844 R19.7 Vomited x 2 since returnNow with diarrhea.D id receive IV abx, in hosp.On pepcid and probiotic bid, prn imodium and zofran also added.Plan -Check for c-diffVira l panel and BMP pendingMai ntain fluids Anemia 812985463 D64.89 StableHgb 9Monitor CBC q 6 months and prn Autoimmune thyroiditis 27352027 E06.3 Continue levothyrox ine 150 mg dialyCheck TSH, FT4 x 1 saturday Chronic hyponatremia 503 88342 E87.1 Most recent level 134Remains off HCTZMonito r prn Congestive heart failure 49125681 I50.22 Not on diuretics at this time.Maint ain meds for BP controlMon itor closely for decompensa tion. Depressive disorder 3548 9007 F33.0 Continue escitalopr am 10 mg dailyMonit or mood, behaviors Dyslipidemia 418926396 E 78.49 Continue zetia 10 mg daily, simvastati n 40 mg daily, and fenofibrat e 54 mg dailyRecen t LFTs WNR, monitorLip id panel 02/2023 perfect. Consider recheck in August Essential hypertension 17067759 I10 BP stableCont inue:lisin opril 10 mg qd - may need to reconsider use due to bump in Bun/Creat. - repeating BMP todayamlod ipine 10 mg qdMonitor BP and labs. Vitamin D deficiency 347 96771 E56.8 Continue po supplement D level prn Peripheral neuropathy due to type 2 diabetes mellitus 5709443808 107 E11.42 continue gabapentin 100 mg tidmonitor pain, adjust dose prn [id number] ARTURO PAZ NP [facility] [place] [address] 07/25/2023 10:13:04 08/01/2023 13:22:09 Diabetic foot ulcer 026648580 L97.518 chronic woundElect kostas skin graft attempted at [facility] a few weeks ago, did not take, back to local mgmt with dressings. Given IV abx. at that tie due to odor with wound.Tx. per d/c paperwork = collagen silver covered by gauze and kerlix q od.Update Dr. Dempsey with concerns.A lso followed by Wound MD here.Tonio casey to monitor VS, labs, wound, CSMFollow up with Dr. Dempsey 07/23, was in hosp., unsure if was seen, will have nurse call office to check if another follow up appt. needed. Diarrhea and vomiting 24 8986230 R19.7 Resolved.M onitor Renal diso rder due to type 2 diabetes mellitus 116034805 E11.21 Acute [facility]Sen [facility] [...] ge fluidsMoni tor for N/V/DFollo w up [facility] Renal Dr. Alonzo as needed. On lisinopril , metformin, trulicity - may need to hold/stop if/when kidney function worsensAvo id nephrotoxi cs Type 2 vanda betes mellitus with peripheral angiopathy 744215487 E11.52 E11.42 Fair eguxwmbY0S in hosp 07/11/23 = 11.3%Non compliant with dietCurren tly on:Trulici ty 3 mg SC weeklylisp ro ssi per per MintzTresi ba 20U qammetform in 1000 mg bidContinu e to monitor BS, A1C, po intake/ t compliance Adjust tx. prn Acute cholecystitis 6543 5009 K81.0 GB removed in September 2022 despite most recent d/c paperwork reporting lap david.Has healed well. Anemia 943931839 D64.89 StableHgb 9Monitor CBC weekly for now due to Osteo, otherwise q 6 months and prn Autoimmune thyroiditis 42199647 E06.3 Continue levothyrox ine 150 mg dialyCheck TSH, FT4 x 1 saturday Chronic hyponatremia 503 25163 E87.1 Most recent level 137Remains off HCTZMonito r prn Congestive heart failure 75254566 I50.22 Not on diuretics at this time.Maint ain meds for BP controlMon itor closely for decompensa tion. Depressive disorder 3548 9007 F33.0 Continue escitalopr am 10 mg dailyMonit or mood, behaviors Dyslipidemia 494785184 E 78.49 Continue zetia 10 mg daily, simvastati n 40 mg daily, and fenofibrat e 54 mg dailyRecen t LFTs WNR, monitorLip id panel 02/2023 perfect. Consider recheck in August Essential hypertension 71652715 I10 BP stableCont inue:lisin opril 10 mg qdamlodipi ne 10 mg qdMonitor BP and labs. Vitamin D deficiency 347 69901 E56.8 Continue po supplement D level prn Peripheral neuropathy due to type 2 diabetes mellitus 0086366455 107 E11.42 continue gabapentin 100 mg tidmonitor pain, adjust dose prn Impaired cognition 21027 6002 R41.89 Concern from staff if able [...] time. Acute oste omyelitis of right foot 0981279353 951856 M86.171 New area of bony erosion of anteromedi al navicular bone at the naviculocu neiform joint concerning for osteo on recent CT in hosp.Seen by JEANETHn IV Daptomycin 500 mg daily x 6 wks, last dose 37Already on probiotic bidCBCD, BMP, ESR, CRP, CK q saturdayMoni tor VSUpdate ID with concerns [id number] Gail Goncalves, ODALYS [facility] [address] [place] [address] 08/01/2023 12:43:51 08/05/2023 15:31:17 Renal disorder due to type 2 diabetes mellitus 992477756 E11.21 Acute on ChronicSen t to [facility] 07/19 with Creat. of 7.9.Resusi tated with fluids, required bicarb drip to correct acidosis which returned to Creat. 1.43 upon d/c from hosp., 1.58 today. Plan -BMP q saturday for nowEncoura ge fluidsMoni tor for N/V/DFollo w up [facility] Renal Dr. Alonzo as needed. note: On lisinopril , metformin, trulicity - may need to hold/stop if/when kidney function worsensAvo id nephrotoxi csmonitor closely Acute oste omyelitis of right foot 6757325172 839392 M86.171 New area of bony erosion of anteromedi al navicular bone at the naviculocu neiform joint concerning for osteo on recent CT in hosp.Seen by IDcontIV Daptomycin 500 mg daily x 6 wks, last dose lready on probiotic bidCBCD, BMP, ESR, CRP, CK q tor VSUpdate ID with concerns Diabetic foot ulcer 3710 70463 L97.518 chronic woundElect kostas skin graft attempted at [facility] a few weeks ago, did not take, back to local mgmt with dressings. Also followed by Wound MD here.seen by drug discovery informatics specialist on 07/31 and no changes. Tx. per d/c paperwork = collagen silver covered by gauze and kerlix q od. Update Dr. Dempsey with concerns.s till waiting progress note from fu visit this week, nsg working on this from 07/23 Type 2 vanda betes mellitus with peripheral angiopathy 265139523 E11.52 E11.42 Fair [id number] in hosp 07/11/23 = 11.3%Non compliant with dietCurren tly on:Trulici ty 3 mg SC weeklylisp ro ssi per per MintzTresi ba 20U qammetform in 1000 mg bidContinu e to monitor BS, A1C, po intake/ t compliance Adjust tx. prn Anemia 853949237 D64.89 StableHgb 9Monitor CBC weekly for now due to Osteo, otherwise q 6 months and prn Autoimmune thyroiditis 41108931 E06.3 ContinueTS H level 0.242/8dec rease levothyrox ine 150 mg daily to 137 mcg dailyreche ck tsh in 8 weeksmonit or Depressive disorder 3548 9007 F33.0 Continuees citalopram 10 mg dailyMonit or mood, behaviors Peripheral neuropathy due to type 2 diabetes mellitus 3382003114 107 E11.42 continuega bapentin 100 mg tidmonitor painadjust dose prnnote renal func with gabapentin Dizziness 014604153 R42 reports occ dizziness with motion onlywill montiorant ontio with notify nsg if this happenswil l consider meclizine, but hold off with recent renal changes and ? blood sugar relatednsg to check BS if this happens and get vitals [id number] Gail Goncalves NP [facility] [address] 08/09/2023 13:36:33 08/12/2023 17:18:55 Renal disorder due to type 2 diabetes mellitus 794706683 E11.21 Acute on ChronicBS improvingS ent to [facility] 07/19 with Creat. of 7.9.resusc itated with fluids, required bicarb drip to correct acidosis which returned to Creat. 1.43 upon d/c from hosp., 1.58 now stable 1.47 Plan -BMP q saturday for nowEncoura ge fluidsMoni tor for N/V/DFollo w up [facility] Renal Dr. Alonzo as needed. note: On lisinopril , metformin, trulicity - may need to hold/stop if/when kidney function worsensAvo id nephrotoxi csmonitor closely Acute oste omyelitis of right foot 4023400754 258358 M86.171 area of bony erosion of anteromedi al navicular bone at the naviculocu neiform joint concerning for osteo on recent in hosp.Seen by IDcontIV Daptomycin 500 mg daily x 6 wks, last dose 3/7Already on probiotic bidCBCD, BMP, ESR, CRP, CK q saturdayMoni tor VSUpdate ID with concerns Diabetic foot ulcer 3710 65621 L97.518 chronic woundElect kostas skin graft attempted at [facility] a few weeks ago, did not take, back to local mgmt with dressings. Also followed by Wound MD here.seen by drug discovery informatics specialist on 08/07, debrided, and no changes.Tx . per d/c paperwork = collagen silver covered by gauze and kerlix q od.will cont with wound rec which are the same Update Dr. Dempsey with concerns.s till waiting progress note from fu visit this week, nsg working on this from 07/23 Type 2 vanda betes mellitus with peripheral angiopathy 648222161 E11.52 E11.42 Fair [id number] in hosp 07/11/23 = 11.3%Non compliant with dietCurren tly on:Trulici ty 3 mg SC weeklylisp ro ssi per per MintzTresi ba 20U qammetform in 1000 mg bidContinu e to monitor BS, A1C, po intake/ t compliance Adjust tx. prn Anemia 124530350 D64.89 Stablereso lvedHgb 10Monitor CBC weekly for now due to Osteo, otherwise q 6 months and prn Depressive disorder 3548 9007 F33.0 Continuees citalopram 10 mg dailyMonit or mood, behaviors Peripheral neuropathy due to type 2 diabetes mellitus 2141237345 107 E11.42 continuega bapentin 100 mg tidmonitor painadjust dose prnnote renal func with gabapentin Dizziness 099724476 R42 no dizziness today, resolvedre ports occ dizziness with motion onlywill montiorant ontio with notify nsg if this happenswil l consider meclizine, but hold off with recent renal changes and ? blood sugar relatednsg to check BS if this happens and get vitals [id number] Gail Goncalves NP [facility] [address] [address] 08/14/2023 14:03:14 08/15/2023 19:44:02 Acute osteomyelitis of right foot [id number] 553080 M86.171 area of bony erosion of anteromedi al navicular bone at the naviculocu neiform joint concerning for osteo on recent in hosp.Seen by IDcontIV Daptomycin 500 mg daily x 6 wks, last dose 3/7Already on probiotic bidCBCD, BMP, ESR, CRP, CK q saturdayMoni tor VSUpdate ID with concerns Renal diso rder due to type 2 diabetes mellitus 638951568 E11.21 Acute on ChronicBS improvingS ent to [facility] 07/19 with Creat. of 7.9.resusc itated with fluids, required bicarb drip to correct acidosis which returned to Creat. 1.43 upon d/c from hosp., 1.58, stable 1.42 Plan -BMP q saturday for nowEncoura ge fluidsMoni tor for N/V/DFollo w up [facility] Renal Dr. Alonzo as needed. note: On lisinopril , metformin, trulicity - may need to hold/stop if/when kidney function worsensAvo id nephrotoxi csmonitor closely Diabetic foot ulcer 3710 07038 L97.518 chronic woundElect kostas skin graft attempted [place] [facility] [place] weeks [place], did not take, back to local mgmt with dressings, iv abx.follow ed by Wound MD here.seen by drug discovery informatics specialist and debrided weeklyTx. per d/c paperwork = collagen silver covered by gauze and kerlix q od.will cont with wound rec which are the same Update Dr. Dempsey with concerns.s till waiting progress note from fu visit this week, nsg working on this from 07/23 Type 2 vanda betes mellitus with peripheral angiopathy 176180781 E11.52 E11.42 Fair [id number] in hosp 07/11/23 = 11.3%Non compliant with dietCurren tly on:Trulici ty 3 mg SC weeklylisp ro ssi per per MintzTresi ba 20U qammetform in 1000 mg bidContinu e to monitor BS, A1C, po intake/ t compliance Adjust tx. prn Depressive disorder 3548 9007 F33.0 Continuees citalopram 10 mg dailyMonit or mood, behaviors Peripheral neuropathy due to type 2 diabetes mellitus 6247438017 107 E11.42 continuega bapentin 100 mg tidmonitor painadjust dose prnnote renal func with gabapentin [id number] Gail Goncalves NP [address] [address] 08/19/2023 11:17:08/21/2023 15:20:44 Acute osteomyelitis of right foot 5847220808 050814 M86.171 area of bony erosion of anteromedi al navicular bone at the naviculocu neiform joint concerning for osteo on recent in hosp.Seen by IDcontIV Daptomycin 500 mg daily x 6 wks, last dose 08/28probiot ic bidCBCD, BMP, ESR, CRP, CK q saturday, trendingMo nitor VS, stableUpda te ID with concerns Renal diso rder due to type 2 diabetes mellitus 160876510 E11.21 Acute on ChronicBS improvingn ote: Sent [place] [facility] [place] with Creat. of 7.9.resusc itated with fluids, required bicarb drip to correct acidosis which returned to Creat. 1.43 upon d/c from hosp., 1.58, stable 1.42note: On lisinopril , metformin, trulicity - may need to hold/stop if/when kidney function worsensPla nBMP q saturday for now, not back yet pendingEnc ourage fluidsMoni tor for N/V/DFollo w up [facility] Renal Dr. Alonzo as needed.Alex id nephrotoxi csmonitor closely Diabetic foot ulcer 3710 99281 L97.518 chronic woundElect kostas skin graft attempted at [facility] [place] several weeks ago, did not take, back to local mgmt with dressings, iv abx.follow ed by Wound MD here.seen by drug discovery informatics specialist and debrided weekly with dsdUpdate Dr. 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 828500990 M21.6X9 notable plantar flex foot and increased swellingco ntPT/OT treat and evalwill order right dorsiflexi on splint todaymonit or for improvemen t Congestive heart failure 61796430 I50.22 lungs clear and bp stable08/19 notable for increased lower leg edemastart torsemide 20 mg po daily x 3 daily and reassessmo nitor bmp weekly [id number] Gail Goncalves NP [facility] [address] [place] [address] 08/22/2023 13:01:07 08/27/2023 13:23:50 Congestive heart failure 14925286 I50.22 lungs clear and bp stable08/19 notable for increased lower leg edema started on torsemide 20 mg po daily x 3 daily lower ext taught, will reassess next weekmonito r bmp weekly Acute oste omyelitis of right foot 4262578759 297088 M86.171 area of bony erosion of anteromedi [...] 2 vanda betes mellitus with peripheral angiopathy 575429561 E11.52 E11.42 Per nsg, multiple snacks and candies brought in by family and BS higher this [id number] in hosp 07/11/23 = 11.3%Non compliant with diet:tiffani fairbanks following and pt counseled on diet 08/21 had isolated high BS of 504 and other BS controlled , diet teaching provided and third steel pourer following, will wait for increased dose of trulicity to start and reevalcont 08/19 increase Trulicity 3 mg SC weekly to 4.5 mg sc weekly (max dose)contl ispro ssiTresiba 20U qammetform in 1000 mg bid(max dose)Tonio nue to monitor BS, A1C, po intake/ t compliance gabapentin 100 mg po tidmonitor for painAdjust tx. 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 of 7.9.resusc itated with fluids, required bicarb drip to correct acidosis which returned to Creat. 1.43 upon d/c from hosp note: On lisinopril , metformin, trulicity - may need to hold/stop if/when kidney function worsensPla nBMP q saturday for now, not back yet pendingEnc ourage fluidsMoni tor for N/V/DFollo w up [facility] Renal Dr. Alonzo as needed.Alex id nephrotoxi csmonitor closely Diabetic foot ulcer 3710 29338 L97.518 chronic woundElect kostas skin graft attempted at [facility] several weeks ago, did not take, back to local mgmt with dressings, iv abx.follow ed by Wound MD here. with rec 08/21:Timothy l, and super absorbent, DCD, QD and prn.seen by drug discovery informatics specialist and debrided weekly with dsdUpdate Dr. Dempsey with concerns.* still waiting progress note from fu visit this week, nsg working on this from 07/23 Depressive disorder 4138 9007 F33.0 Continuees citalopram 10 mg dailyMonit or mood, behaviors [id number] Gail Goncalves NP [address] [address] 08/26/2023 09:23:56 08/28/2023 14:50:59 Congestive heart failure 40724153 I50.22 lungs clear and bp stable with notable lower ext edema08/19 notable for increased lower leg edema started on torsemide 20 mg po daily x 3 daily lower ext taught, will reassess next week3/4 start torsemide 20 mg po daily x 7 days then 10 mg po dailymonit or bmp weekly Acute oste omyelitis of right foot 5579175282 418978 M86.171 area of bony erosion of anteromedi [...] 2 vanda betes mellitus with peripheral angiopathy 255910598 E11.52 E11.42 Per nsg, multiple snacks and candies brought in by family and BS higher this [id number] in hosp 07/11/23 = 11.3%Non compliant with diet:dieti tiki following and pt counseled on dietBS much more controlled recently contTrulic ity 4.5 mg sc weekly (max dose)lispr o ssiTresiba 20U qammetform in 1000 mg bid(max dose)Tonio nue to monitor BS, A1C, po intake/ t compliance gabapentin 100 mg po tidmonitor for painAdjust tx. 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 Alonzo as needed.Alex id nephrotoxi csmonitor closely Diabetic foot ulcer 3710 42164 L97.518 chronic woundElect kostas skin graft attempted at [facility] [place] weeks ago, did not take, back to local mgmt with dressings, iv abx.follow ed by Wound MD here. last with rec 08/21:Timothy l, and super absorbent, DCD, QD and prn.seen by drug discovery informatics specialist and debrided weekly with dsdUpdate Dr. Dempsey with concerns.* still waiting progress note from fu visit this week, nsg working on this from 07/23 Depressive disorder 3548 9007 F33.0 Continuees citalopram 10 mg dailyMonit or mood, behaviors Edema of l ower extremity 927105671 R60.0 pt has bilateral lower ext edema3/4 start torsemide 20 mg po daily x 7 days, then 10 mg po dailymonit or bmp weekly with hx of renal toxicity [id number] [facility] [address] 09/04/2023 13:36:49 09/09/2023 10:01:32 Edema of lower extremity 193138345 R60.0 pt has bilateral lower ext edema, much improved from increased torsemidet orsemide 10 mg po daily09/03 dc order to encourage >2 liter/day of fluidsmoni tor bmp weekly with hx of renal toxicity Congestive heart failure 63461051 I50.22 lungs clear and bp stable with notable lower ext edematorse mide 10 mg po dailymonit or bmp weekly Acute oste omyelitis of right foot 3497308196 725433 M86.171 area of bony erosion of anteromedi [...] 2 vanda betes mellitus with peripheral angiopathy 019272334 E11.52 E11.42 BS much better later and [...] 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 Alonzo as needed.Alex id nephrotoxi csmonitor closely Diabetic foot ulcer 3710 09448 L97.518 chronic woundElect kostas skin graft attempted at [facility] [place] weeks ago, did not take, back to local mgmt with dressings, iv abx.follow ed by Wound MD here. last with rec Collagen with silver dressing, ABD, Kerlix, QD and prn. Surgical follow up and orthotic evaluation pendingsee n by drug discovery informatics specialist and debrided weekly with Sadaate Dr. Dempsey with concerns. appt 09/25*still waiting progress note from fu visit this week, nsg working on this from 07/23 [id number] Francoise Foster MD [address] [address] 09/06/2023 06:59:42 09/10/2023 14:18:29 Type 2 diabetes mellitus with peripheral angiopathy 509555704 E11.52 E11.42 Tresiba 20U qamTrulici ty 4.5 mg SC weeklymetf ormin 1000 mg bidLispro per sliding scalewill monitor Essential hypertension 91779446 I10 amlodipine 10 mg dailylisin opril 10 mg dailytorse mide 10 mg dailywill monitor Hypothyroidism 96776753 E03.8 levothyrox ine 137 mcg dailywill monitor Chronic pain 06848302 G8 9.29 gabapentin 100 mg tidAPAP 650 mg q4h prnwill monitorPT/ OT Mixed anxi ety and depressive disorder 890268437 F41.8 escitalopr am 10 mg dailywill monitor Hyperlipidemia 63458652 E78.49 simvastati n 40 mg dailyezeti mibe 10 mg dailyfenof ibrate 54 mg dailywill monitor [id number] Gail Goncalves NP [address] [address] 09/23/2023 17:27:07 09/26/2023 10:45:00 Type 2 diabetes mellitus with peripheral angiopathy 576726078 E11.52 E11.42 contTresib a 20U qamTrulici ty 4.5 mg SC weeklymetf ormin 1000 mg bidLispro per sliding scalewill monitorcon it intern need to dc metformin if no improvemen t with jj Essential hypertension 26660151 I10 amlodipine 10 mg dailylisin opril 10 mg daily09/22 dc torsemide 10 mg dailywill monitor Chronic pain 74502670 G8 9.29 gabapentin 100 mg tidAPAP 650 mg q4h prnwill monitorPT/ OT Congestive heart failure 74299956 I50.22 lungs clear and bp stable with notable lower ext edema now better but JJ noteddc torsemide 10 mg po dailymonit or bmp weekly Renal diso rder due to type 2 diabetes mellitus 249622715 E11.21 Acute on Chronic, renal func at baseline lately, will cont to trend on abx now with increased bun/cr BS improving overall, 200's plan:09/22 DC torsemide 10 mg po dailybmp on 09/25 to look for improvemen t and encourage fluidscont BMP q saturdayEnco urage fluidsMoni tor for N/V/DFollo w up [facility] Renal Dr. Alonzo as needed.Alex id nephrotoxi csmonitor closely [id number] Gail Goncalves NP [facility] [address] [address] 09/26/2023 14:19:12 09/30/2023 12:08:19 Renal disorder due to type 2 diabetes mellitus 368262328 E11.21 Acute on Chronic, renal func at baseline lately, will cont to trend on abx now with increased bun/cr BS improving overall, 200's plan:09/22 DC torsemide 10 mg po dailybmp on 09/25 to look for improvemen t and encourage fluids09/25 labs not resulted, reorder labs cont BMP q saturdayEnco urage fluidsMoni tor for N/V/DFollo w up [facility] Renal Dr. Alonzo as needed.Alex id nephrotoxi csmonitor closely Chronic pain 95174405 G8 9.29 gabapentin 100 mg tidAPAP 650 mg q4h prnwill monitorPT/ OT Congestive heart failure 00548415 I50.22 lungs clear and bp stable with notable lower ext edema now better but JJ noteddc torsemide 10 mg po dailymonit or bmp weekly Abnormalit y of nail of toe 310413695 L60.8 2nd left toe nail fell offunclear of how it happenedno s/s of infectionn s wash, pat dry, bacitracin , and bandaid daily [id number] Gail Goncalves NP [facility] [address] [address] 09/30/2023 10:59:39 10/09/2023 08:15:19 Renal disorder due to type 2 diabetes mellitus 328051354 E11.21 Acute on Chronic, renal func at [...] urage fluidsMoni tor for N/V/DFollo w up [facility] Renal Dr. Alonzo as needed.Alex id nephrotoxi csmonitor closely Chronic pain 14152749 G8 9.29 pt denies any pain09/29 dc gabapentin 100 mg tidAPAP 650 mg q4h prnwill monitorPT/ OT Congestive heart failure 01070661 I50.22 has some edema to extremitie s 1+recently dc torsemide 10 mg po dailymonit or bmp weekly and for resp sys, increased edema, change in wgt Diabetic foot ulcer 3710 46268 L97.518 chronic woundElect kostas skin graft attempted at [facility] several weeks ago, did not take, completed iv abx.follow ed by Wound MD here. last with rec Collagen with silver dressing, ABD, Kerlix, QD and prn. Surgical follow up and orthotic evaluation pendingsee n by drug discovery informatics specialist and debrided weekly with dsd does not appear infected today, slow healingcon t montioring labs closely with crp and esr for possible infection Update Dr. Dempsey with concerns. appt 09/25 cx, need to fu with new appt on 10/16 at 2:30pm [id number] LAXMI SANTA, CAROLYN [address] [address] 10/31/2023 13:40:32 11/05/2023 08:58:07 Renal disorder due to type 2 diabetes mellitus 791854513 E11.21 Improving. BS improving overall, 100-200' lab result revealed bmp improved, bun 28, Cr. 1.48 from bun 43/cr 2.14 on 09/29.Pt refused lab on 10/27.Encour age fluids.Mon itor for N/V/DFollo w up [facility] Renal Dr. Alonzo as needed.Alex id nephrotoxi csmonitor closely Chronic pain 56752953 G8 9.29 pt denies any painAPAP 650 mg q4h prnwill monitorPT/ OT, PRN Congestive heart failure 71548217 I50.22 has some edema to extremitie s 1+ increased edema, change in wgtMonitor VS, wt, LS and O2 sat and decompensa tion.labs as needed. Diabetic foot ulcer 3710 38086 L97.518 chronic woundPer wound care note, 10/24/23, Surgical wound improved.E lective skin graft attempted at [facility] several weeks ago, did not take, completed iv abx.He is followed by Wound MD here. last with rec Collagen with silver dressing, ABD, Kerlix, QD and prn.seen by drug discovery informatics specialist and debrided weekly. during day for edema control and stacy wrap.cont montioring labs closely with crp and esr for possible infection Type 2 vanda betes mellitus with peripheral angiopathy 512613975 E11.52 E11.42 Tresiba 20U qamTrulici ty 4.5 mg SC weeklymetf ormin 1000 mg bidLispro per sliding scalewill monitor Essential hypertension 08463189 I10 amlodipine 10 mg dailylisin opril 10 mg dailyVSS. SBP 120-130s, will monitor Hypothyroidism 67786048 E03.8 levothyrox ine 137 mcg dailyTSH was WNL on 09/26/23.justyn l monitor Mixed anxi ety and depressive disorder 378205354 F41.8 escitalopr am 10 mg dailywill monitor Hyperlipidemia 87608421 E78.49 simvastati n 40 mg dailyezeti mibe 10 mg dailyfenof ibrate 54 mg dailywill monitor Contusion of left great toe 5213904721 5920866 S90.212A Clean the site with NS, and cover with bandage q daily.Plac ed an order for wound care evaluation , and refer to podiatry. [id number] Gail Goncalves NP [address] [address] 11/29/2023 10:37:01 12/02/2023 20:31:26 Chronic pain 00040787 G89.29 pt denies any painAPAP 650 mg q4h prnwill monitorPT/ OT, PRN Diabetic foot ulcer 3710 20830 L97.518 chronic wound, with noncomplia nce to diet and fluid restrictio n and labs in pastwound seem to be stagnant in general without obvious infectionw ound seem to be stagnant in general without obvious infectionE lective skin graft attempted at [facility] for the second time, did not take, [...] 2 vanda betes mellitus with peripheral angiopathy 609183836 E11.52 E11.42 Tresiba 20U qamTrulici ty 4.5 mg SC weeklymetf ormin 1000 mg bidLispro per sliding scalewill monitor Peripheral edema 1149813 00 R60.9 peripheral edemastart bumex 1 mg po daily as the torsemide and lasix have been difficult on his JJ and raised labs notably in past.monit or labs weekly as above [id number] Gail Goncalves NP [address] [address] 12/05/2023 10:42:08 12/10/2023 10:09:20 Chronic pain 24588581 G89.29 pt denies any painAPAP 650 mg q4h prnwill monitorPT/ OT, PRN Diabetic foot ulcer 3710 98078 L97.518 chronic wound, with noncomplia nce to diet and fluid restrictio n and labs in pastwound seem to be stagnant in general without obvious infectionE lective skin graft attempted at [facility] for the second time, did not take, completed iv abx.He is followed by Wound MD here. will agree currently as ordered in MARcbc c diff, cmp, esr, crp weekly x 5 weeks to monitor open wound Type 2 vanda betes mellitus with peripheral angiopathy 452538777 E11.52 E11.42 blood sugars improved and 107-211 latelyTres iba 20U qamTrulici ty 4.5 mg SC weeklymetf ormin 1000 mg bidLispro per sliding scalewill monitor Peripheral edema 4334312 00 R60.9 peripheral edemacont bumex 1 mg po daily as the torsemide and lasix have been difficult on his JJ and raised labs notably in past.12/01 labs reviewed as abovemonit or labs weekly as above Acute COVID-19 872662470 8 U07.1 pt mostly asymptomat ic with watery eyes and occ dry coughdue to notable comorbidit ies and infection will order:moln upirivar 800mg po bid x 5 daysrobitu ssin 10 ml po q 6 hours prn coughencou rage fluids prnpt tested positive for covid 19 on 12/04 during routine testingiso lation precaution s per facilitymo lnupirvar Essential hypertension 17110137 I10 bp stable currentlya mlodipine 10 mg dailylisin opril 10 mg dailywill monitor and assess if decrease is possible with JJ Renal diso rder due to type 2 diabetes mellitus 941680993 E11.21 Acute on Chronic, renal func at baseline lately, will cont to trend with increased bun/cr BS improving overall, 200'splan: bumex 1 mg po dailycont BMP q saturdayEnco urage fluidsMoni tor for N/V/DFollo w up [facility] Renal Dr. Alonzo as needed.Alex id nephrotoxi csmonitor closely [id number] Gail Goncalves NP [address] [address] 12/09/2023 16:50:14 12/12/2023 09:35:16 Acute COVID-19 5736576397 U07.1 pt mostly asymptomat ic with watery eyes and occ dry cough12/04 due to notable comorbidit ies and infection will order:moln upirivar 800mg po bid x 5 daysrobitu ssin 10 ml po q 6 hours prn coughencou rage fluids prnpt tested positive for covid 19 on 12/04 during routine testingiso lation precaution s per facility cont with plan abovemolnu pirvar Chronic pain 27032716 G8 9.29 pt denies any painAPAP 650 mg q4h prnwill monitorPT/ OT, PRN Diabetic foot ulcer 3710 79683 L97.518 chronic wound, with noncomplia nce to diet and fluid restrictio n and labs in pastwound followed by wound teamcont to be stagnant in general without obvious infectionE lective skin graft attempted at [facility] for the second time, did not take, completed iv abx.cbc c diff, cmp, esr, crp weekly x 5 weeks total to monitor open wound12/08 cont with plan above and labs stable today Type 2 vanda betes mellitus with peripheral angiopathy 391285535 E11.52 E11.42 blood sugars improving 120-225 latelyTres iba 20U qamTrulici ty 4.5 mg SC weeklymetf ormin 1000 mg bidLispro per sliding scalewill monitor Peripheral edema 8894685 00 R60.9 peripheral edema12/08 contbumex 1 mg po daily as the torsemide and lasix have been difficult on his JJ and raised labs notably in past.12/08 labs reviewed and may consider increase in diuretics later this week or next week if neededmoni tor labs weekly as above [id number] Gail Goncalves NP [address] [address] 12/11/2023 14:36:22 12/18/2023 15:51:38 Type 2 diabetes mellitus with peripheral angiopathy 760583389 E11.52 E11.42 blood sugars improving 120-225 latelyTres iba 20U qamTrulici ty 4.5 mg SC weeklymetf ormin 1000 mg bidLispro per sliding scalewill monitor Acute COVID-19 724731762 8 U07.1 pt mostly asymptomat ic with watery eyes and occ dry cough12/04 due to notable comorbidit ies and infection: molnupiriv ar 800mg po bid x 5 daysrobitu ssin 10 ml po q 6 hours prn coughencou rage fluids prnpt tested positive for covid 19 on 12/04 during routine testingiso lation precaution s per facility cont with plan abovemolnu pirvar Chronic pain 75358509 G8 9.29 pt denies any painAPAP 650 mg q4h prnwill monitorPT/ OT, PRN Diabetic foot ulcer 3710 89538 L97.518 chronic wound, with noncomplia nce to diet and fluid restrictio n and labs in pastwound followed by wound team and orders per teamcont to be stagnant in general without obvious infectionE lective skin graft attempted at [facility] for the second time, did not take, completed iv abx.cbc c diff, cmp, esr, crp weekly x 5 weeks total to monitor open wound12/08 cont with plan above and labs stable 12/08 Peripheral edema 4443173 00 R60.9 peripheral edema12/08 contbumex 1 mg po daily as the torsemide and lasix have been difficult on his JJ and raised labs notably in past.12/08 labs reviewed and may consider increase in diuretics later this week or next week if needed12/10 bun/cr slightly elevated and will recheck on a slightly bettermoni tor labs weekly as above [id number] Gail Goncalves NP [address] [address] 12/13/2023 10:18:43 12/18/2023 16:37:02 Acute COVID-19 [id number] U07.1 pt tested positive for covid 19 [...] bun cr closely on mondays Peripheral edema 0479575 00 R60.9 peripheral edema12/12 contbumex 1 mg po daily as the torsemide and lasix have been difficult on his JJ and raised labs notably in past.12/12 stacy wraps to bilateral lower extermitie s dailynote 12/08 bun/cr slightly elevated and will recheck on a slightly bettermoni tor labs weekly as above Type 2 vanda betes mellitus with peripheral angiopathy 470427443 E11.52 E11.42 blood sugars high 94-187 improving contTresib a 20U qamTrulici ty 4.5 mg SC weeklymetf ormin 1000 mg bidLispro per sliding scalewill monitor Diabetic foot ulcer 3710 40637 L97.518 chronic wound, with noncomplia nce to diet and fluid restrictio n and labs in pastnote: Elective skin graft attempted at [facility] [place] the second time, did not take, completed iv abx. wound followed by wound team and orders per team12/12 plan:cont to be stagnant in general without obvious infection but malodor restart doxycyclin e 100 mg po bid x 30 dayscbc c diff, cmp, esr, crp weekly x 5 weeks total to monitor open woundmonit or [id number] Gail Goncalves NP [address] [address] 12/18/2023 09:15:35 12/24/2023 09:51:52 Diabetic foot ulcer 513723615 L97.518 chronic wound, with noncomplia nce to diet and fluid restrictio n and labs in pastnote: Elective skin graft attempted at [facility] for the second time, did not take, [...] to monitor open woundmonit or Acute COVID-19 172013964 8 U07.1 resolvedpt tested positive for covid [...] bun cr closely on mondays Peripheral edema 3483109 00 R60.9 peripheral edema improving on bumex and stacy wraps12/17 however with poor renal function will dc bumex today with hx of lasix and torsemide raising renal function in pastcontac e wraps to bilateral lower extremitie s dailymonit or labs weekly as above and monitor for need to use diuretics Type 2 vanda betes mellitus with peripheral angiopathy 608659392 E11.52 E11.42 blood sugars high 78-274 mostly [...] rder due to type 2 diabetes mellitus 742451401 E11.21 Acute on Chronic, renal func at baseline lately, will cont to trend with increased bun/cr BS improving overall as aboveplan: 12/17 dc bumex 1 mg po dailycont BMP q saturdayEnco urage fluidsMoni tor for N/V/DFollo w up [facility] Renal Dr. Alonzo as needed.Alex id nephrotoxi csmonitor closely and see above management [id number] Puja Luke MD [address] [address] 01/06/2024 21:35:44 01/23/2024 16:15:02 Diabetic foot ulcer 413245255 L97.518 WBC back to nl and ESR/CRP improving. Continue wound care as ordered.Fo llowed by wound care. Acute COVID-19 777816652 8 U07.1 Tested + 12/05/23Now recovered. Monitor for sequelae. Peripheral edema 2547249 00 R60.0 Stable off diuretics. Continue STACY wraps to BLE on in AM and off in PM.Monitor . Type 2 vanda betes mellitus with peripheral angiopathy 997096128 E11.52 E11.42 E11.21 Recent sugars in good control. Last TSH 8.7 in 02/2023.Met formin recently decreased due to CKD.Contin ue Tresiba 20 U qd, Mounjaro 2.5 mg qweek, metformin 750 mg BID and SSI.Monito r fingerstic ks TID and HgA1C q 3 months (will order). Chronic ki dney disease stage 3A 090735253 N18.31 Stable at new baseline.C ontinue to avoid nephrotoxi c meds as able.Monit or labs.F/U with renal, Dr. Alonzo, prn. Essential hypertension 49684038 I10 BP in good control.Co ntinue lisinopril 10 mg qd and amlodipine 10 mg po qd.Monitor BP and labs.With sl. worsening of renal function, although has now stabilized , consider d/c lisinopril . History of SARS-CoV-2 29 66523469 36413503 Z86.16 Tested + 12/05/23Now recovered. Monitor for sequelae. [id number] Gail Goncalves NP [address] [address] 01/15/2024 10:03:03 01/16/2024 19:29:21 Diabetic foot ulcer 056202540 L97.518 chronic wound, with noncomplia nce to diet and fluid restrictio n and labs in pastnote: Elective skin graft attempted at [facility] for the second time, did not take, completed iv abx, and finished po course overall stagnant wound healing wound followed by wound team and orders per team for dsglast seen 01/13 plan: with note improving and no s/s infectionc ompleted doxycyclin e on 01/11 after 30 day course wbc count resolved on 01/13 labscbc c diff, cmp, esr, crp weeklymoni tor Peripheral edema 0860768 00 R60.9 peripheral edema stable with stacy wrapsconta ce wraps to bilateral lower extremitie s dailymonit or labs weekly as above and monitor for need to use diureticsw ith JJ see abovewill monitor with clinical symptoms for diuretic need Type 2 vanda betes mellitus with peripheral angiopathy 161175071 E11.52 E11.42 blood sugars low in early [...] rder due to type 2 diabetes mellitus 601964104 E11.21 Acute on Chronic, renal func at baseline low lately, will cont to trend with increased bun/cr off diuretics at this timewill decrease metformin and adjust as needed for AKIcont BMP q saturdayEnco urage fluidsMoni tor for N/V/DFollo w up [facility] Renal Dr. Alonzo as needed.Alex id nephrotoxi csmonitor closely and see above management [id number] Gail Goncalves NP [address] [place] [address] 02/21/2024 13:07:05 02/26/2024 11:42:36 Type 2 diabetes mellitus with peripheral angiopathy 385909658 E11.52 E11.42 blood sugars low in early [...] ck, level on Diabetic foot ulcer 3710 76470 L97.518 chronic wound, with noncomplia nce to diet and fluid restrictio n and labs in pastnote: Elective skin graft attempted at [facility] for the second time, did not take, completed iv abx, and finished po course overall stagnant wound healing wound followed by wound team weekly as in hpiorders per team for dsgcbc c diff, cmp, esr, crp weekly, but refuses at times02/20 labs cbc with diff, bmp, esr, crp, ck, level on tor Peripheral edema 3893503 00 R60.9 peripheral edema stable with stacy wraps, no diuretics needed todayconta ce wraps to bilateral lower extremitie s dailymonit or labs weekly as above and monitor for need to use diureticsw ith JJ see abovewill monitor with clinical symptoms for diuretic need Renal diso rder due to type 2 diabetes mellitus 714242246 E11.21 Acute on Chronic JJ, renal func at baseline low lately, will cont to trend with increased bun/cr off diuretics at this timemetfor min recently decreased and adjust as needed for AKIcont BMP q saturdayEnco urage fluidsMoni tor for N/V/DFollo w up [facility] Renal Dr. Alonzo as needed.Alex id nephrotoxi csmonitor closely and see above management 02/20 labs cbc with diff, bmp, esr, crp, ck, level on [id number] Gail Goncalves NP [address] [address] 02/27/2024 11:16:16 03/02/2024 11:18:27 Type 2 diabetes mellitus with peripheral angiopathy 182413881 E11.52 E11.42 BS 100-200s with improvemen t [...] rder due to type 2 diabetes mellitus 485073935 E11.21 Acute on Chronic JJ, renal func at baseline low lately, will cont to trend with increased bun/cr improving with decrease in diuretics and metformin as above off diuretics at this timemetfor min recently decreased and adjust as needed for AKIcont BMP q saturdayEnco urage fluidsMoni tor for N/V/DFollo w up [facility] Renal Dr. Alonzo as needed.Alex id nephrotoxi csmonitor closely and see above management 02/20 labs cbc with diff, bmp, esr, crp, ck, level on Diabetic foot ulcer 3710 05600 L97.518 chronic wound, with noncomplia nce to diet and fluid restrictio n and labs in past note: Elective skin graft attempted at [facility] for the second time, did not take, completed iv abx, and finished po course overall stagnant wound healing wound is stable and nonhealing wound team weekly as in hpiorders per team for dsgcbc c diff, cmp, esr, crp weekly, but refuses at timesmonit or Peripheral edema 7911724 00 R60.9 peripheral edema stable with stacy wraps, no diuretics needed as stacy wraps working wellcontac e wraps to bilateral lower extremitie s dailymonit or labs weekly as above and monitor for need to use diureticsw ith JJ see above will monitor with clinical symptoms for diuretic need Chronic ki dney disease stage 3A 181563612 N18.31 Stable at new baseline.C ontinue to avoid nephrotoxi c meds as able.Monit or labs.F/U with renal, Dr. Alonzo, prn. Essential hypertension 10824924 I10 BP in good control.Co ntinuelisi nopril 10 mg qdamlodipi ne 10 mg po qd.Monitor BP and labs.With sl. worsening of renal function, although has now stabilized , consider d/c lisinopril . Cellulitis of toe 462201 04 L03.032 left toe nail split and 1/2 fell off now infected, second 1/2 of toenail likely will fall offstubbed his toe a few days ago per nursing.9/ 5ns wash, pat dry, betadine paint, and wrap wtih bodered dressing daily and prnwound team consultsta rt doxycyclin e 100 mg po bid x10 days with probioticm onitor for further s/s of infection [id number] Gail Goncalves NP [address] [address] 04/01/2024 09:22:59 04/02/2024 10:56:24 Cellulitis of toe 25591986 L03.032 9/2 left toe nail split and [...] 2 vanda betes mellitus with peripheral angiopathy 606191024 E11.52 E11.42 BS 100-200s, no low BS [...] decrease of metformin recently and off diuretics1 0labs cbc with diff, bmp, esr, crp, ck, on wednesdays x 2 Renal diso rder due to type 2 diabetes mellitus 012860149 E11.21 Acute on Chronic JJ, renal func at baseline lately, will cont to trend with increased bun/cr improving with decrease in diuretics and metformin in general off diuretics at this timemetfor min recently decreased and adjust as needed for AKIcont BMP q saturdayEnco urage fluidsMoni tor for N/V/DFollo w up [facility] Renal Dr. Alonzo as needed.Alex id nephrotoxi csmonitor closely and see above management 04/01 labs cbc with diff, bmp, esr, crp, ck, level on wednesdays x 2 Diabetic foot ulcer 3710 49559 L97.518 chronic wound, with noncomplia nce to diet and fluid restrictio n and labs in past note: Elective skin graft attempted at [facility] for the second time, did not take, completed iv abx, and finished po course overall stagnant wound healing wound is stable and nonhealing wound team weekly as in hpiorders per team for dsgcbc c diff, cmp, esr, crp wednesdays x 2 to trend, pt noncomplia nt at timesmonit or Peripheral edema 7294905 00 R60.9 peripheral edema stable with stacy wraps, no diuretics needed as stacy wraps working wellcontac e wraps to bilateral lower extremitie s dailymonit or labs weekly as above and monitor for need to use diureticsw ith JJ see above will monitor with clinical symptoms for diuretic need Chronic ki dney disease stage 3A 518471665 N18.31 Stable at new baseline.C ontinue to avoid nephrotoxi c meds as able.Monit or labs.F/U with renal, Dr. Alonzo, prn. [id number] ARTURO PAZ, ODALYS [address] [address] 04/21/2024 14:23:09 04/22/2024 10:45:15 Diabetic foot ulcer 971936747 L97.518 chronic wound, with noncomplia nce to diet and fluid restrictio n and labs in pastElecti ve skin graft attempted at [facility] x 2, both did not take.Tonio nue [facility] surgical eval and tx.Also followed by Wound PAZina in house.Cont inue local wound careTubigr ip for gentle compressio nMonitor VS, labsMainta in glucose control. Type 2 vanda betes mellitus with peripheral angiopathy 008482742 E11.52 E11.42 BS currently in good control, mostly 100s, occ. low 200s.Tonio nue:Tresib a 20U qammounjar o 5mg sc q thursmetfo rmin 750 mg po dailyLispr o per sliding scaleqhs snack Continue to trend BS and A1Cs Peripheral edema 3377698 00 R60.9 peripheral edema stable with stacy wraps, not on diuretics at this time. However, has had 12 lb weight gin in past 2 months, may need to consider low dose diuretic.M onitor closely Chronic ki dney disease stage 3A 761452016 N18.31 Stable at new baseline.C ontinue to avoid nephrotoxi c meds as able.Monit or labs.F/U with renal, Dr. Alonzo, prn. Anemia 921474664 D64.89 StableMoni toring CBC weekly for now Congestive heart failure 43058067 I50.22 Has gained 12 lbs in past 2 months.Amberly etite great, not clear if water weight; hx. of diet noncomplia nce.Not on diuretics at this time, but may need to consider.M aintain meds for BP controlMon itor closely for decompensa tion. Depressive disorder 3548 9007 F33.0 Continue escitalopr am 10 mg dailyMonit or mood, behaviors Dyslipidemia 503160997 E 78.49 Continue zetia 10 mg daily, simvastati n 40 mg daily, and fenofibrat e 54 mg dailyCheck LFTs, lipid panel x 1 Essential hypertension 53620846 I10 BP stableCont inue:lisin opril 10 mg qdamlodipi ne 10 mg qdMonitor BP and labs. Autoimmune thyroiditis 37899693 E06.3 Recent 12 lb, weight gainCheck TSH, FT4 x 1Continue levothyrox ine 137 mcg qd [id number] Gail Goncalves NP [facility] [address] [address] 06/26/2024 15:38:47 06/29/2024 13:27:33 Open wound of left foot 1966601713 2105654 S91.302A send pt to er and call 911 for left foot cellulitis and likely sepsis [id number] Gail Goncalves NP [facility] [address] [address] 07/08/2024 09:46:45 07/08/2024 11:17:52 Open wound of left foot 1824658346 8953959 S91.302A send pt to er and call 911 for left foot dehiscence and overt bleeding going through dressing and towelalso please have hosp assess if central line is needed or if a picc line for abx is more appropriat e in this setting [id number] Gail Goncalves NP [facility] [address] [address] 07/09/2024 08:22:11 07/10/2024 15:20:10 Open wound of left foot 3904098464 8122544 S91.302A Left diabetic foot ulcer open wound with 4th and 5th metartarsa l ampopen left foot wound with dehisence with notable bone, tendon, and tissue exposed(no te: he was sent back to [facility] on 07/08 for overt bleeding and dehiscence , evaluated by surgeon and sent back here without interventi on later that day felt he can fu with surgeon at [facility] Dr Mendoza in near future)vito n from [facility] [place] MENDOZA:ns g to make fu with Dr Mendoza at [facility] surgeons IN 1-2 WEEKSwound team to follow heredaily silver alginate to bilateral lower extremity wounds with dry clean dressingco mpression prn for worsening bleedingco mplete 6 weeks of IV rocephin 2gram qd end date 08/12/24-ox ycodone 5 mg po q 6 hours prn pain-picc to right chest ([facility] confirmed this is a picc to right chest in paperwork) not in either armof note: payton placed on 07/07/24 during hospitaliz ation to right chestdue to above will use picc protocol here and have IR or PICC service remove at end of abx course.cbc and bmp weekly and prn if bleeding worsens Diabetic foot ulcer 3710 69119 L97.518 chronic wound, with noncomplia nce to diet and fluid restrictio n and labs in pastElecti ve skin graft attempted at [facility] x 2, both did not take.[place] [facility] also while in hospitalCo ntinue [facility] surgical eval and tx.Also followed by Wound PA-C in house for local care and debridemen t prnContinu e local wound careTubigr ip for gentle compressio nMonitor VS, labsMainta in glucose control. Type 2 vanda betes mellitus with peripheral angiopathy 559878562 E11.52 E11.42 Continue:T resiba 20U qammounjar o 5mg sc q thursmetfo rmin 750 mg po dailyLispr o per sliding scaleqhs snackConti nue to trend BS and A1Cs Peripheral edema 0089067 00 R60.9 peripheral edema stable with stacy wraps, not on diuretics at this time.consi erik low dose diuretic prnMonitor closely Chronic ki dney disease stage 3A 807845349 N18.31 Stable at new baseline.C ontinue to avoid nephrotoxi c meds as able.F/U with renal, Dr. Alonzo, prn.Acute on Chronic AKIoff diuretics at this timecurren tly on metformin 750 mg po qdMonitor for N/V/DFollo w up [facility] Renal Dr. Alonzo as needed.Alex id nephrotoxi csmonitor closely and see above management labs cbc with diff, bmp, esr, crp, ck, level on wednesdays Anemia 078120328 D64.89 has anemia now with open left foot wound amp of 4th and 5th toes and increased bleedingns g to monitor bleeding and apply pressure dressings prnMonitor ing CBC weekly for now on wednesdays see above Congestive heart failure 09674804 I50.22 hx ofAppetite great, not clear if water weight with recent weight increasehx . of diet noncomplia nce.Not on diuretics at this time, but may need to consider.M aintain meds for BP controlMon itor closely for decompensa tion. Depressive disorder 3548 9007 F33.0 Continuees citalopram 10 mg dailyMonit or mood, behaviors Dyslipidemia 740864164 E 78.49 Continueze tia 10 mg dailysimva statin 40 mg dailyfenof ibrate 54 mg dailyCheck LFTs, lipid panel prn Essential hypertension 38670282 I10 Continue:l isinopril 10 mg qdamlodipi ne 10 mg qdMonitor BP and labs. Sepsis 16699193 A41.9 see above Osteomyeli tis of left foot 3380236053 644213 M86.9 see above [id number] Gail Goncalves NP [address] [address] 07/15/2024 09:21:48 07/16/2024 11:16:06 Open wound of left foot 7668872864 4931929 S91.302A Left diabetic foot ulcer with 4th and 5th metartarsa l amp wiht open left foot wound with notable bone, tendon, and tissue exposed now starting to heal inplan from [facility] [place] MENDOZA:ns g to make fu with Dr Mendoza at [facility] surgeons IN 1-2 WEEKSwound team to follow heredaily silver alginate to bilateral lower extremity wounds with dry clean dressingco mpression prn for worsening bleeding, seems to be helpingcom plete 6 weeks of IV rocephin 2gram qd end date 08/12/24-ox ycodone 5 mg po q 6 hours prn pain-picc to right chest ([facility] confirmed this is a picc to right chest in paperwork) not in either armof note: payton placed on 07/07/24 during hospitaliz ation to right chestdue to above will use picc protocol here and have IR or PICC service remove at end of abx course, not to have nursing remove herecbc and bmp weekly and prn if bleeding worsenssee wound note Sepsis 33312894 A41.9 see above Osteomyeli tis of left foot 7112762864 365944 M86.9 see above Diabetic foot ulcer 3710 17505 L97.518 chronic wound, with noncomplia nce to diet and fluid restrictio n and labs in pastElecti ve skin graft attempted at [facility] x 2, both did not take. no skin graft on this past admissionh [place] [facility] also while in hospitalCo ntinue [facility] surgical eval and tx.Also followed by Wound PA-C in house for local care and debridemen t prnContinu e local wound careTubigr ip for gentle compressio nMonitor VS, labsMainta in glucose control.se e wound note Chronic ki dney disease stage 3A 127439590 N18.31 Stable at new baseline.C ontinue to avoid nephrotoxi c meds as able.F/U with renal, Dr. Alonzo, prn.Acute on Chronic AKIoff diuretics at this timecurren tly on metformin 750 mg po qdMonitor for N/V/DFollo w up [facility] Renal Dr. Alonzo as needed.Alex id nephrotoxi csmonitor closely and see above management labs cbc with diff, bmp, esr, crp, ck, level on wednesdays Type 2 vanda betes mellitus with peripheral angiopathy 397483103 E11.52 E11.42 Continue:T resiba 20U qammounjar o 5mg sc q thursmetfo rmin 750 mg po dailyLispr o per sliding scaleqhs snackConti nue to trend BS and A1Cs Peripheral edema 1663246 00 R60.9 peripheral edema stable with stacy wraps, not on diuretics at this time.consi erik low dose diuretic prnMonitor closely Anemia 554604124 D64.89 has anemia now with open left foot wound amp of 4th and 5th toes and bleeding more controlled with stacy compressio nnsg to monitor bleeding and apply pressure dressings prnMonitor ing CBC weekly for now on wednesdays see above [id number] Gail Goncalves NP [facility] [address] [place] [address] 07/22/2024 13:31:36 07/24/2024 10:39:24 Open wound of left foot 6298345851 6660714 S91.302A Left diabetic foot ulcer with 4th and 5th metatarsal amp with open left foot wound with notable bone, tendon, and tissue exposedpla n from [facility] [place] MENDOZA:ns g to make fu with Dr Mendoza at [facility] IN 1-2 WEEKSwound team to follow heredaily silver alginate to bilateral lower extremity wounds with dry clean dressing and stacy wrapcompre ssion prn for worsening bleeding, seems to be helpingcom plete 6 weeks of IV rocephin 2gram qd end date 08/12/24-ox ycodone 5 mg po q 6 hours prn pain-picc to right chest ([facility] confirmed this is a picc to right chest in paperwork) not in either armof note: payton placed on 07/07/24 during hospitaliz ation to right chestdue to above will use picc protocol here and have IR or PICC service remove at end of abx course, not to have nursing remove herecbc and bmp weekly and prn if bleeding worsenssee wound note Sepsis 99114923 A41.9 see above Osteomyeli tis of left foot 0153382975 937955 M86.9 see above Diabetic foot ulcer 3710 44046 L97.518 chronic wound with increased bleeding today, with noncomplia nce to diet and fluid restrictio n and labs in pastElecti ve skin graft attempted at [facility] x 2, both did not take. no skin graft on this past admissionh ad [place] [facility] also while in hospitalCo ntinue [facility] surgical eval and tx.followe d by Wound PA-C in house for local care and debridemen t prnContinu e local wound care, stacy wrap for compressio n for bleedingMo nitor VS, labsMainta in glucose control.se e wound note weeklylabs trended Chronic ki dney disease stage 3A 996274804 N18.31 Stable at new baseline.C ontinue to avoid nephrotoxi c meds as able.F/U with renal, Dr. Alonzo, prn.Acute on Chronic AKIoff diuretics at this timecontme tformin 750 mg po qdFollow up [facility] Alonzo as needed.Alex id nephrotoxi csmonitor closely and see above management labs cbc with diff, bmp, esr, crp, ck, level on wednesdays Type 2 vanda betes mellitus with peripheral angiopathy 651053313 E11.52 E11.42 Continue:T resiba 20U qammounjar o 5mg sc q thursmetfo rmin 750 mg po dailyLispr o per sliding scaleqhs snackConti nue to trend BS and A1Cs and adjust for ckd prn Peripheral edema 2814735 00 R60.9 peripheral edema stable with stacy wraps, not on diuretics at this time.consi erik low dose diuretic prnMonitor closely Anemia 083709773 D64.89 has anemia now with open left foot wound amp of 4th and 5th toes and bleeding more controlled with stacy compressio nnsg to monitor bleeding and apply pressure dressings prnMonitor ing CBC weekly for now on wednesdays see above Congestive heart failure 95952822 I50.22 hx ofAppetite great, not clear if water weight with recent weight increasehx . of diet noncomplia nce.Not on diuretics at this time, but may need to consider.M aintain meds for BP controlMon itor closely for decompensa tion. Depressive disorder 3548 9007 F33.0 Continuees citalopram 10 mg dailyMonit or mood, behaviors Dyslipidemia 330318145 E 78.49 Continueze tia 10 mg dailysimva statin 40 mg dailyfenof ibrate 54 mg dailyCheck LFTs, lipid panel prn Essential hypertension [id number] I10 Continue:l isinopril 10 mg qdamlodipi ne 10 mg qdMonitor BP and labs. [id number] Gail Goncalves NP [address] [address] 08/05/2024 13:20:08 08/06/2024 13:45:32 Open wound of left foot [id number] S91.302A Left diabetic foot ulcer with 4th and 5th metatarsal amp with open left foot wound with notable bone, tendon, and tissue exposedpla n from [facility] [place] MENDOZA:ns g to make fu with Dr Mendoza at [facility] surgeons IN 1-2 WEEKSwound team to follow heredaily silver alginate to bilateral lower extremity wounds with dry clean dressing and stacy wrapcompre ssion prn for worsening bleeding, seems to be helpingcom plete 6 weeks of IV rocephin 2gram qd end date 08/12/24-ox ycodone 5 mg po q 6 hours prn pain-picc to right chest ([facility] confirmed this is a picc to [...] nonhealing ulcer Osteomyeli tis of left foot [id number] M86.9 see below Diabetic foot ulcer 3710 09560 L97.518 chronic wound with increased bleeding today, with noncomplia nce to diet and fluid restrictio n and labs in pastElecti ve skin graft attempted at [facility] x 2, both did not takehad debridemen [place] [facility] [place] also while in hospitalCo ntinue [facility] surgical eval and tx.followe d by Wound PA-C in house for local care and debridemen t prnContinu e local wound care, stacy wrap for compressio n for bleedingMo nitor VS, labsMainta in glucose control.se e wound note weeklylabs trended Sepsis [id number] A41.9 resolvedse e abovebmp and cbc weekly Chronic ki dney disease stage 3A [id number] N18.31 Stable at new baseline as aboveConti [...] 2 vanda betes mellitus with peripheral angiopathy 974472167 E11.52 E11.42 Continue:T resiba 20U qammounjar o 5mg sc q thursmetfo rmin 750 mg po dailyLispr o per sliding scaleqhs snackConti nue to trend BS and A1Cs and adjust for ckd prn Peripheral edema 1682833 00 R60.9 peripheral edema stable with stacy wraps, not on diuretics at this time.consi erik low dose diuretic prnMonitor closely [id number] ARTURO PAZ NP [facility] [address] [address] 08/12/2024 15:53:50 08/14/2024 16:12:19 Osteomyelitis of left foot [id number] 291009 M86.9 see below Open wound of left foot [id number] 4061413 S91.302A Left diabetic foot ulcer with 4th [...] 6 hours prn pain-picc to right chest ([facility] confirmed this is a picc to right chest in paperwork) not in either armof note: payton placed on 07/07/24 during hospitaliz ation to right chestdue to above will use picc protocol here and have IR or PICC service remove at end of abx course, not to have nursing remove here Diabetic foot ulcer 3710 53603 L97.518 chronic wound, concern of worsening per wound eval today by wound team.see above, has follow up with Dr. Mendoza saturday.For now continue current POC as outlined above. Sepsis 84736526 A41.9 resolvedse e abovebmp and cbc weekly Chronic ki dney disease stage 3A 478773489 N18.31 Stable at new baseline as aboveConti nue to avoid nephrotoxi c meds as able.F/U with renal, Dr. Alonzo, prn.labs cbc with diff, bmp, esr, crp, ck, level on wednesdays Type 2 vanda betes mellitus with peripheral angiopathy 695146857 E11.52 E11.42 Decent control, BS mostly 100s, occ. 200sContin ue:Tresiba 20U qammounjar o 5mg sc q thursmetfo rmin 750 mg po dailyLispr o per sliding scaleqhs snackConti nue to trend BS and A1Cs and adjust for ckd prn Peripheral edema 1994174 00 R60.9 peripheral edema stable with stacy wraps, not on diuretics at this time.consi erik low dose diuretic prnMonitor closely [id number] Gail Goncalves NP [facility] [address] [address] 08/19/2024 10:02:33 08/20/2024 13:01:39 Osteomyelitis of left foot [id number] 537525 M86.9 see below Open wound of left foot [id number] 2494675 S91.302A Left diabetic foot ulcer with 4th and 5th metatarsal amp with open left foot wound with notable bone, tendon, and tissue exposedCon cern of worsening wounds due to increased sloughfoll ows with Dr. Mendoza for eval, next appt 10/13/24Mon itor VS, labs as ordered.fo llowed wound now continue collagen and Alg. AG and dcd qd and prncomplet ed 6 weeks of IV rocephin - 2gram qd - end date 08/12/24-ce ntral line to right chestIR or PICC service remove at end of abx course, not to have nursing remove here. hx states 07/07/24 payton placedcons ider po abx or id consult if needed Diabetic foot ulcer 3710 24868 L97.518 chronic wound, with poor healingFor now continue current POC as outlined above.BS stable Chronic ki dney disease stage 3A [id number] N18.31 Stable at new baseline as aboveConti nue to avoid nephrotoxi c meds as able.F/U with renal, Dr. Alonzo, prn.labs cbc with diff, bmp, esr, crp, ck, level on wednesdays Type 2 vanda betes mellitus with peripheral angiopathy 463907254 E11.52 E11.42 Decent control, BS mostly 100s, occ. 200sContin ue:Tresiba 20U qammounjar o 5mg sc q thursmetfo rmin 750 mg po dailyLispr o per sliding scaleqhs snackConti nue to trend BS and A1Cs and adjust for ckd prn Peripheral edema 2465220 00 R60.9 peripheral edema stable with stacy [...] ID Guarantor Name 07/15/2024 1 [place] [employer] A Beltran Tarik [id number] Mehul Beltran 07/15/2024 2 [place]ICAID-[place]: [facility] Mehul Beltran [id number] Mehul Beltran 07/22/2024 1 [place] [employer] A Beltran Tarik [id number] Mehul Beltran 07/22/2024 2 MEDICAID-[place]: [facility] Mehul Beltran [id number] Mehul Beltran 08/05/2024 1 [place] [employer] A Beltran Tarik [id number] Mehul Beltran 08/05/2024 2 MEDICAID-[place]: [facility] Mehul Beltran [id number] Mehul Beltran 08/12/2024 1 [place] [employer] A Beltran Tarik [id number] Mehul Beltran 08/12/2024 2 MEDICAID-[place]: [facility] Mehul Beltran [id number] Mehul Beltran 08/19/2024 1 [place] [employer] A Beltran Tarik [id number] Mehul Beltran 08/19/2024 2 [place]ICAID-[place]: [facility] Mehul Beltran [id number] Mehul Beltran Notes Date Note Type Note [...] time. of note: Recently had admission at [facility] 07/02-07/07/23 for osteomyelitis with of the left 4th and 5th toe by MRI and gangenous changes to the skin of the 5th toe requiring amputation and right foot debridement back at [facility] for continued care and rehab. Workup consisted [...] or bleeding and sent him back to [facility] later that afternoon and plan to follow up with surgeon outpt. Gail Goncalves, ODALYS [address] [facility], [address], [place], [address], [facility] 07/15/2024 12:25:56 07/22/2024 text/html Mehul is seen [...] times. On 07/19/23 he was sent to [facility] due to abdominal pain, n, V, fever, [...] wound. On 07/02-07/07/23 he was admitted to [facility] for osteomyelitis with of the left 4th and 5th toe by MRI and gangenous changes to the skin of the 5th toe requiring amputation and right foot debridement back at [facility] for continued care and rehab. Workup consisted [...] or bleeding and sent him back to [facility] later that afternoon and plan to [...] weight 255 lbs which is similar. Gail Goncalves NP [address] [facility], [address], [place], [address], [facility] 07/22/2024 17:33:56 08/05/2024 text/html Mehul is seen [...] fu with surgeon. Gail Goncalves NP [address] [facility], [address], [place], [address], [facility] 08/05/2024 13:49:41 08/12/2024 text/html Mehul is seen today for an acute visit. This is a 53 yo man, LTC resident, currently with poorly healing ulcers on B feet. Has undergone amputations and continues with daily wound care.He is followed by the Wound Team here as well as Dr. Mendoza at [facility].Case discussed with nsg. today, who report his [...] recommend fu with surgeon. ARTURO PAZ NP [address] [place] [address], [address], [place], [address], [facility] 08/12/2024 16:09:24 08/19/2024 text/html Pt is seen for a n acute rounding visit. PMH including AODM-poorly controlled with neuropathy, PVD, HTN, acanthosis nigricans, HLD, autoimmune thyroiditis, anemia, hyponatremia, depression, Vit D deficiency, chronic R knee pain (wears brace), chronic bilateral hand pain (uses splints), hx of JJ, developmental delay, s/p R cataract extraction, peripheral edema, and obesity. Mehul is a 53 yo man, LTC resident, currently with poorly healing ulcers on his feet. In general, he has undergone amputations and continues with daily wound care.He is followed by the Wound Team here as well as Dr. Mendoza at [facility]. His left foot continues with poorly healing status and per Dr Mendoza on 07/17/24 recommended to keep sutures in place with silver alginate dressings. Some sutures removed from left toes. Right foot with granulation and callous removed. No cellulitis or abcess noted. No fu recommended on consult form. Will rec official progress note.[facility] fu appointment on 10/13/24. Will request progress note. According to wound note: 08/18: Right foot remains stable. Left toes surgical site are improving. Sutures were removed from the left foot last week. He has just completed ceftriaxone for osteomyelitis. His right metatarsal amp remains with nonhealing stable status. He continues to have the right central line in his chest. Will request it be taken out by IR as he has a payton to right chest in [facility] notes. On exam, pt is OOB in his w/c, new dressings to bilateral feet well wrapped and STACY wraps. He denies any chills, fever, or other concerns today. Gail Goncalves NP [address] [facility], [address], [place], [address], [facility] [place] 08/19/2024 11:06:47
--- OUTSIDE RECORDS SUMMARY | 2024-08-28 14:21 | XMS_ITS | Encounter Summary ---
Author Organization [facility] Address [address] [place] [address] Care Team Providers Care Senior Telecommunications Consultant Name Role Phone Isai Reaves MD Primary Care Provider [phone] Encounter Details Date Type Department Care Team (Late st Contact Info) Description 08/18/2024 Lab Requisition [facility] - Main Lab [address] [facility] [place] [address] Isai Reaves MD [address] [place] [address] [address], [address] Type 2 diabetes mellitus without complications [...] Date/Time Associated Diagnosis Comments SEDIMENTATION RATE Routine 08/19/2024 6: 00 AM EST Type 2 diabetes mellitus without complications (CMS/HCC) Osteomyelitis, unspecified (CMS/HCC) Hypothyroidism, unspecified Hyperlipidemia, unspecified COMPLETE BLOOD COUNT Routine 08/19/2024 6:00 AM EST Type 2 diabetes mellitus without complications (CMS/HCC) Osteomyelitis, unspecified (CMS/HCC) Hypothyroidism, unspecified Hyperlipidemia, unspecified C-REACTIVE PROTEIN Routine 08/19/2024 6: 00 AM EST Type 2 diabetes mellitus without complications (CMS/HCC) Osteomyelitis, unspecified (CMS/HCC) Hypothyroidism, unspecified Hyperlipidemia, unspecified BASIC METABOLIC PANEL Routine 08/19/2024 6:00 AM EST Type 2 diabetes mellitus without complications (CMS/HCC) Osteomyelitis, unspecified (CMS/HCC) Hypothyroidism, unspecified Hyperlipidemia, unspecified documented in this encounter Results * (ABNORMAL) C-reactive protein (08/19/2024 6:00 AM EST) Pathologist [facility] C-Reactive Protein 2.04(H) <=0.50 mg/dL LAB CHEMISTRY METHOD 08/19/2024 10:44 AM EST [facility] Blood Venous blood specimen / Unknown Venipuncture / Unknown 08/19/2024 6:00 AM EST 08/19/2024 10:00 AM EST us Isai Reaves MD LAB BLOOD ORDERABLES Final Resul t Performing Organization Address [facility] Co de Phone Number [facility] [address] [place] [address], * (ABNORMAL) Sedimentation rate (08/19/2024 6:00 AM EST) [facility] [place] Sed Rate 84(H) 0 - 20 mm/hr LAB HEMETOLOGY METHOD 08/19/2024 11:10 AM EST [facility] Blood Venous blood specimen / Unknown Venipuncture / Unknown 08/19/2024 6:00 AM EST 08/19/2024 10:00 AM EST Isai Reaves MD LAB BLOOD ORDERABLES Final Resul t Performing Organization Address [facility]/ZIP Co de Phone Number [facility] [address] [place] [address], [place] [phone] * (ABNORMAL) Basic metabolic panel (08/19/2024 6:00 AM EST) [facility] [place] Sodium 141 133 - 145 mmol/L LAB CHEMISTRY METHOD 08/19/2024 10:44 AM EST [facility] Potassium 4.4 3.5 - 5.5 mmol/L LAB CHEMISTRY METHOD 08/19/2024 10:44 AM [facility] Chloride 111(H) 96 - 110 mmol/L LAB CHEMISTRY METHOD 08/19/2024 10:44 AM [facility] CO2 18(L) 21 - 32 mmol/L LAB CHEMISTRY METHOD 08/19/2024 10:44 AM [facility] Anion Gap 12(H) 3 - 11 LAB CHEMISTRY METHOD 08/19/2024 10:44 AM [facility] Glucose 72 70 - 100 mg/dL LAB CHEMISTRY METHOD 08/19/2024 10:44 AM [facility] BUN 39(H) 5 - 25 mg/dL LAB CHEMISTRY METHOD 08/19/2024 10:44 AM [facility] Creatinine 1.61(H) 0.70 - 1.30 mg/dL LAB CHEMISTRY METHOD 08/19/2024 10:44 AM [facility] eGFR 51(L) >=60 mL/min/1. 73m2 LAB CHEMISTRY METHOD 08/19/2024 10:44 AM [facility] Comment:Calculation based on the??Chronic Kidney Disease Epidemiology Collaboration (CKD-EPI) equation refit??without adjustment for race. BUN/Creatinine Ratio 24.2 LAB CHEMISTRY METHOD 08/19/2024 10:44 AM [facility] Calcium 8.5 8.5 - 10.5 mg/dL LAB CHEMISTRY METHOD 08/19/2024 10:44 AM [facility] Blood Venous blood specimen / Unknown Venipuncture / Unknown 08/19/2024 6:00 AM EST 08/19/2024 10:00 AM EST us Isai Reaves MD LAB BLOOD ORDERABLES Final Resul t [facility] [address] [place] [address], * (ABNORMAL) Complete blood count (08/19/2024 6:00 AM EST) [facility] [place] WBC 8.7 4.8 - 10.8 K/mcL LAB HEMETOLOGY METHOD 08/19/2024 10:48 AM [facility] RBC 3.20(L) 4.50 - 5.50 M/mcL LAB HEMETOLOGY METHOD 08/19/2024 10:48 AM [facility] Hemoglobin 8.8(L) 13.5 - 17.5 g/dL LAB HEMETOLOGY METHOD 08/19/2024 10:48 AM [facility] Hematocrit 27.7(L) 42.0 - 54.0 % LAB HEMETOLOGY METHOD 08/19/2024 10:48 AM [facility] MCV 85.8 79.0 - 98.0 FL LAB HEMETOLOGY METHOD 08/19/2024 10:48 AM [facility] MCH 27.2 27.0 - 32.0 pcg LAB HEMETOLOGY METHOD 08/19/2024 10:48 AM [facility] MCHC 31.8(L) 32.0 - 37.0 g/dL LAB HEMETOLOGY METHOD 08/19/2024 10:48 AM [facility] RDW 13.8 11.0 - 15.0 % LAB HEMETOLOGY METHOD 08/19/2024 10:48 AM [facility] Platelets 257 130 - 400 K/mcL LAB HEMETOLOGY METHOD 08/19/2024 10:48 AM [facility] MPV 10.7 7.0 - 11.0 FL LAB HEMETOLOGY METHOD 08/19/2024 10:48 AM [facility] NRBC 0.0 <1.0 % LAB HEMETOLOGY METHOD 08/19/2024 10:48 AM [facility] NRBC Absolute 0.00 <0.10 K/mcL LAB HEMETOLOGY METHOD 08/19/2024 10:48 AM EST [facility] Blood Venous blood specimen / Unknown Venipuncture / Unknown 08/19/2024 6:00 AM EST 08/19/2024 10:00 AM EST us Isai Reaves MD LAB BLOOD ORDERABLES Final Resul t [facility] [address] [place] [address], documented in this encounter Visit Diagnoses Diagnosis Type 2 diabetes mellitus without complications (CMS/HCC) Osteomyelitis, unspecified (CMS/HCC) Hypothyroidism, unspecified Hyperlipidemia, unspecified documented in this encounter Care Teams Senior Telecommunications Consultant Relationship Specialty Start Date End Date Isai Reaves MD [address] [place] [address] PCP - General Family Medicine 05/08/24 documented as of this encounter
--- OUTSIDE RECORDS SUMMARY | 2024-08-28 14:21 | XMS_ITS | Clinical Summary ---
Author Organization [address] Address [address] [place] [address] Phone Care Team Providers Care Profiler Operator Name Role Phone Isai Reaves MD Primary Care Provider [phone] Encounters Date Type Department Care Team Description 08/25/[address] [facility] [address] [place] [phone] Isai Reaves MD Type 2 diabetes mellitus without complications (CMS/HCC); Osteomyelitis, unspecified (CMS/HCC); Hypothyroidism, unspecified; Hyperlipidemia, unspecified 08/18/[address] [facility] [address] [place] [phone] Isai Reaves MD Type 2 diabetes mellitus without complications (CMS/HCC); Osteomyelitis, unspecified (CMS/HCC); Hypothyroidism, unspecified; Hyperlipidemia, unspecified 08/12/[address] [facility] [address] [place] [phone] Isai Reaves MD Type 2 diabetes mellitus without complications (CMS/HCC); Osteomyelitis, unspecified (CMS/HCC); Hypothyroidism, unspecified; Hyperlipidemia, unspecified 08/11/[address] [facility] [address] [place] [phone] Isai Reaves MD Type 2 diabetes mellitus without complications (CMS/HCC); Osteomyelitis, unspecified (CMS/HCC); Hypothyroidism, unspecified; Hyperlipidemia, unspecified 08/04/[address] [facility] [address] [place] [phone] Isai Reaves MD Type 2 diabetes mellitus without complications (CMS/HCC); Osteomyelitis, unspecified (CMS/HCC); Hypothyroidism, unspecified; Hyperlipidemia, unspecified 07/28/[address] [facility] [address] [place] [phone] Isai Reaves MD Hyperlipidemia, unspecified; Hypothyroidism, unspecified; Osteomyelitis, unspecified (CMS/HCC); Type 2 diabetes mellitus without complications (CMS/HCC) 07/21/[address] [facility] [address] [place] [phone] Isai Reaves MD Hyperlipidemia, unspecified; Hypothyroidism, unspecified; Osteomyelitis, unspecified (CMS/HCC); Type 2 diabetes mellitus without complications (CMS/HCC) 07/14/[address] [facility] [address] [place] [phone] Isai Reaves MD Hyperlipidemia, unspecified; Hypothyroidism, unspecified; Osteomyelitis, unspecified (CMS/HCC); Type 2 diabetes mellitus without complications ([facility]) 07/08/[address] [facility] [address] [place] [phone] Isai Reaves MD Other supervisor intermediates (current) drug therapy 06/23/[address] [facility] [address] [place] [phone] Isai Reaves MD Essential (primary) hypertension; Osteomyelitis, unspecified (CMS/HCC) 06/23/[address] [facility] [address] [place] [phone] Isai Reaves MD Type 2 diabetes mellitus with unspecified complications (CMS/HCC) 06/22/[address] [facility] [address] [place] [phone] Isai Reaves MD Type 2 diabetes mellitus without complications (CMS/HCC) 06/18/[address] [facility] [address] [place] [address] Isai Reaves MD Hypertensive heart disease with [...] 06/23/2024 Diabetes: Annual GFR (Glomerular Filtration Rate) 08/26/2025 08/26/2024, 08/19/2024, 08/13/2024, Additional history exists Hypertension/CHF/CAD Annual BMP Blood Test 08/26/2025 08/26/2024, 08/19/2024, 08/13/2024, Additional history exists Cholesterol Screening (Lipid Panel) [...] Hypothyroidism, unspecified Hyperlipidemia, unspecified SEDIMENTATION RATE Routine 08/19/2024 6: 00 AM [...] Hypothyroidism, unspecified Hyperlipidemia, unspecified SEDIMENTATION RATE Routine 08/13/2024 6: 21 AM [...] PANEL Routine 07/08/2024 5:10 AM EST Other nursing home (current) drug therapy COMPLETE BLOOD COUNT Routine 07/08/2024 5:10 AM EST Other nursing home (current) drug therapy CBC WITH AUTO DIFFERENTIAL [...] Health Maintenance Results * (ABNORMAL) Sedimentation rate (08/26/2024 2:00 PM EST) Only the most recent of9 resultswithin the time period is included. Sed Rate 104(H) 0 - 20 mm/hr LAB HEMETOLOGY METHOD 08/26/2024 3:15 PM EST [facility] Blood Venous blood specimen / Unknown Venipuncture / Unknown 08/26/2024 2:00 PM EST 08/26/2024 2:51 PM EST us Isai Reaves MD LAB BLOOD ORDERABLES Final Resul t [facility] [address] [place] [address], [place] [phone] * (ABNORMAL) Complete blood count (08/26/2024 2:00 PM EST) Only the most recent of8 resultswithin the time period is included. Pathologist [facility] WBC 9.0 4.8 - 10.8 K/mcL LAB HEMETOLOGY METHOD 08/26/2024 3:20 PM [facility] RBC 3.70(L) 4.50 - 5.50 M/mcL LAB HEMETOLOGY METHOD 08/26/2024 3:20 PM [facility] Hemoglobin 10.1(L) 13.5 - 17.5 g/dL LAB HEMETOLOGY METHOD 08/26/2024 3:20 PM [facility] Hematocrit 30.8(L) 42.0 - 54.0 % LAB HEMETOLOGY METHOD 08/26/2024 3:20 PM [facility] MCV 83.7 79.0 - 98.0 FL LAB HEMETOLOGY METHOD 08/26/2024 3:20 PM [facility] MCH 27.4 27.0 - 32.0 pcg LAB HEMETOLOGY METHOD 08/26/2024 3:20 PM EST [facility] MCHC 32.8 32.0 - 37.0 g/dL LAB HEMETOLOGY METHOD 08/26/2024 3:20 PM EST [facility] RDW 13.6 11.0 - 15.0 % LAB HEMETOLOGY METHOD 08/26/2024 3:20 PM EST [facility] Platelets 314 130 - 400 K/mcL LAB HEMETOLOGY METHOD 08/26/2024 3:20 PM EST [facility] MPV 11.3(H) 7.0 - 11.0 FL LAB HEMETOLOGY METHOD 08/26/2024 3:20 PM EST [facility] NRBC 0.0 <1.0 % LAB HEMETOLOGY METHOD 08/26/2024 3:20 PM EST [facility] NRBC Absolute 0.00 <0.10 K/mcL LAB HEMETOLOGY METHOD 08/26/2024 3:20 PM EST [facility] Blood Venous blood specimen / Unknown Venipuncture / Unknown 08/26/2024 2:00 PM EST 08/26/2024 2:51 PM EST us Isai Reaves MD LAB BLOOD ORDERABLES Final Resul t [facility] [address] [place] [address], * (ABNORMAL) C-reactive protein (08/26/2024 2:00 PM EST) Only the most recent of9 resultswithin the time period is included. C-Reactive Protein 1.00(H) <=0.50 mg/dL LAB CHEMISTRY METHOD 08/26/2024 3:46 PM EST [facility] Blood Venous blood specimen / Unknown Venipuncture / Unknown 08/26/2024 2:00 PM EST 08/26/2024 2:55 PM EST us Isai Reaves MD LAB BLOOD ORDERABLES Final Resul t [facility] [address] [place] [address], [place] [phone] * (ABNORMAL) Basic metabolic panel (08/26/2024 2:00 PM EST) Only the most recent of11 resultswithin the time period is included. Sodium 139 133 - 145 mmol/L LAB CHEMISTRY METHOD 08/26/2024 3:42 PM [facility] Potassium 5.2 3.5 - 5.5 mmol/L LAB CHEMISTRY METHOD 08/26/2024 3:42 PM [facility] Chloride 110 96 - 110 mmol/L LAB CHEMISTRY METHOD 08/26/2024 3:42 PM [facility] CO2 20(L) 21 - 32 mmol/L LAB CHEMISTRY METHOD 08/26/2024 3:42 PM [facility] Anion Gap 9 3 - 11 LAB CHEMISTRY METHOD 08/26/2024 3:42 PM [facility] Glucose 123(H) 70 - 100 mg/dL LAB CHEMISTRY METHOD 08/26/2024 3:42 PM [facility] BUN 31(H) 5 - 25 mg/dL LAB CHEMISTRY METHOD 08/26/2024 3:42 PM [facility] Creatinine 1.52(H) 0.70 - 1.30 mg/dL LAB CHEMISTRY METHOD 08/26/2024 3:42 PM [facility] eGFR 54(L) >=60 mL/min/1. 73m2 LAB CHEMISTRY METHOD 08/26/2024 3:42 PM [facility] Comment:Calculation based on the??Chronic Kidney Disease Epidemiology Collaboration (CKD-EPI) equation refit??without adjustment for race. BUN/Creatinine Ratio 20.4 LAB CHEMISTRY METHOD 08/26/2024 3:42 PM [facility] Calcium 9.0 8.5 - 10.5 mg/dL LAB CHEMISTRY METHOD 08/26/2024 3:42 PM [facility] Blood Venous blood specimen / Unknown Venipuncture / Unknown 08/26/2024 2:00 PM EST 08/26/2024 2:55 PM EST us Isai Reaves MD LAB BLOOD ORDERABLES Final Resul t [facility] [address] [place] [address], [place] [phone] * (ABNORMAL) CBC auto differential (06/25/2024 6:00 AM EST) Only the most recent of3 resultswithin the time period is included. WBC 13.0(H) 4.8 - 10.8 K/mcL LAB HEMETOLOGY METHOD 06/25/2024 10:57 AM [facility] RBC 2.90(L) 4.50 - 5.50 M/mcL LAB HEMETOLOGY METHOD 06/25/2024 10:57 AM [facility] Hemoglobin 7.8(L) 13.5 - 17.5 g/dL LAB HEMETOLOGY METHOD 06/25/2024 10:57 AM [facility] Hematocrit 24.6(L) 42.0 - 54.0 % LAB HEMETOLOGY METHOD 06/25/2024 10:57 AM [facility] MCV 86.0 79.0 - 98.0 FL LAB HEMETOLOGY METHOD 06/25/2024 10:57 AM [facility] MCH 27.3 27.0 - 32.0 pcg LAB HEMETOLOGY METHOD 06/25/2024 10:57 AM [facility] MCHC 31.7(L) 32.0 - 37.0 g/dL LAB HEMETOLOGY METHOD 06/25/2024 10:57 AM [facility] RDW 13.1 11.0 - 15.0 % LAB HEMETOLOGY METHOD 06/25/2024 10:57 AM [facility] Platelets 259 130 - 400 K/mcL LAB HEMETOLOGY METHOD 06/25/2024 10:57 AM [facility] MPV 10.9 7.0 - 11.0 FL LAB HEMETOLOGY METHOD 06/25/2024 10:57 AM [facility] NRBC 0.0 <1.0 % LAB HEMETOLOGY METHOD 06/25/2024 10:57 AM [facility] NRBC Absolute 0.00 <0.10 K/mcL LAB HEMETOLOGY METHOD 06/25/2024 10:57 AM [facility] Neutrophils Relative 78.7 % LAB HEMETOLOGY METHOD 06/25/2024 10:57 AM [facility] Lymphocytes Relative 9.0 % LAB HEMETOLOGY METHOD 06/25/2024 10:57 AM [facility] Monocytes Relative 8.6 % LAB HEMETOLOGY METHOD 06/25/2024 10:57 AM [facility] Eosinophils Relative 2.8 % LAB HEMETOLOGY METHOD 06/25/2024 10:57 AM [facility] Basophils Relative 0.4 % LAB HEMETOLOGY METHOD 06/25/2024 10:57 AM [facility] Immature Granulocytes Relative 0.5 % LAB HEMETOLOGY METHOD 06/25/2024 10:57 AM [facility] Neutrophils Absolute 10.21(H) 1.50 - 7.00 K/mcL LAB HEMETOLOGY METHOD 06/25/2024 10:57 AM [facility] Lymphocytes Absolute 1.17 1.00 - 5.00 K/mcL LAB HEMETOLOGY METHOD 06/25/2024 10:57 AM EST [facility] Monocytes Absolute 1.12(H) 0.20 - 1.00 K/[facility] LAB HEMETOLOGY METHOD 06/25/2024 10:57 AM EST [facility] Eosinophils Absolute 0.36 0.00 - 0.50 K/[facility] LAB HEMETOLOGY METHOD 06/25/2024 10:57 AM EST [facility] Basophils Absolute 0.05 0.00 - 0.20 K/[facility] LAB HEMETOLOGY METHOD 06/25/2024 10:57 AM EST [facility] Immature Granulocytes Absolute 0.07(H) 0.00 - 0.03 K/[facility] LAB HEMETOLOGY METHOD 06/25/2024 10:57 AM EST [facility] Blood Venous blood specimen / Unknown Venipuncture / Unknown 06/25/2024 6:00 AM EST 06/25/2024 9:42 AM EST Isai Reaves MD LAB BLOOD ORDERABLES Final Resul t Performing Organization Address City/[facility] Co de Phone Number [facility] [address] [place] [address], * (ABNORMAL) Hemoglobin A1c (06/23/2024 6:21 AM EST) Hemoglobin A1C 9.3(H) <6.5 % LAB CHEMISTRY METHOD 06/23/2024 1:44 PM EST [facility] Mean Bld Glu Estim. 220 mg/dL LAB CHEMISTRY METHOD 06/23/2024 1:44 PM EST [facility] Blood Venous blood specimen / Unknown Venipuncture / Unknown 06/23/2024 6:21 AM EST 06/23/2024 9:45 AM EST Isai Reaves MD LAB BLOOD ORDERABLES Final Resul t [facility] [address] [place] [address], [place] [phone] * (ABNORMAL) Urinalysis with reflex microscopic (06/22/2024 2:00 PM EST) Specific [place] Urine 1.021 1.003 - 1.030 LAB URINALYSIS - AUTOMATED METHOD 06/22/2024 7:27 PM [facility] pH, Urine 5.5 5.0 - 8.0 pH LAB URINALYSIS - AUTOMATED METHOD 06/22/2024 7:27 PM [facility] Leukocytes, Urine Negative Negative LAB URINALYSIS - AUTOMATED METHOD 06/22/2024 7:27 PM [facility] Nitrite, Urine Negative Negative LAB URINALYSIS - AUTOMATED METHOD 06/22/2024 7:27 PM [facility] Protein, Urine 100(A) <=Trace mg/dL LAB URINALYSIS - AUTOMATED METHOD 06/22/2024 7:27 PM [facility] Glucose, Urine >=1000(A) Negative mg/dL LAB URINALYSIS - AUTOMATED METHOD 06/22/2024 7:27 PM [facility] Ketones, Urine Negative Negative mg/dL LAB URINALYSIS - AUTOMATED METHOD 06/22/2024 7:27 PM [facility] Urobilinogen , Urine 1.0 0.2 - 1.0 mg/dL LAB URINALYSIS - AUTOMATED METHOD 06/22/2024 7:27 PM [facility] Bilirubin, Urine Negative Negative LAB URINALYSIS - AUTOMATED METHOD 06/22/2024 7:27 PM [facility] Blood, Urine Negative Negative LAB URINALYSIS - AUTOMATED METHOD 06/22/2024 7:27 PM [facility] RBC, Urine 4.3(H) 0 - 4 /HPF LAB URINALYSIS - AUTOMATED METHOD 06/22/2024 7:27 PM [facility] WBC, Urine 4.6(H) 0 - 4 /HPF LAB URINALYSIS - AUTOMATED METHOD 06/22/2024 7:27 PM [facility] Squamous Epithelial, Urine 8 0 - 60 /LPF LAB URINALYSIS - AUTOMATED METHOD 06/22/2024 7:27 PM [facility] Bacteria, Urine Negative Negative /HPF LAB URINALYSIS - AUTOMATED METHOD 06/22/2024 7:27 PM [facility] Hyaline Casts, Urine 0.0 0 - 3 /LPF LAB URINALYSIS - AUTOMATED METHOD 06/22/2024 7:27 PM [facility] Urine Urine specimen obtained by clean catch procedure / Unknown 06/22/2024 2:00 PM EST 06/22/2024 6:31 PM EST us Isai Reaves MD LAB URINE ORDERABLES Final Resul t [facility] [address] [place] [address], [place] [phone] * Culture urine (06/22/2024 2:00 PM EST) Pathologist [facility] Culture, Urine <10,000 CFU/mL gram positive cocci, insignificant count, no further workup 06/23/2024 1:34 PM [facility] Urine Urine specimen obtained by clean catch procedure / Unknown 06/22/2024 2:00 PM EST 06/22/2024 6:31 PM EST us Isai Reaves MD LAB MICROBIOLOGY - GENERAL ORDER ALMA DELIA Final Result Performing Organization Address City/[facility]/ZIP Co de Phone Number [facility] [address] [place] [address], [place] [phone] * Lipid panel with reflex to direct LDL (04/27/2024 6:34 AM EST) Cholesterol 111 0 - 200 mg/dL LAB CHEMISTRY METHOD 04/27/2024 11:01 AM [facility] Triglycerides 92 0 - 150 mg/dL LAB CHEMISTRY METHOD 04/27/2024 11:01 AM [facility] HDL 42 >=40 mg/dL LAB CHEMISTRY METHOD 04/27/2024 11:01 AM [facility] LDL Calculated 51 0 - 100 mg/dL LAB CHEMISTRY METHOD 04/27/2024 11:01 AM [facility] VLDL Cholesterol Fabian 18.4 mg/dL LAB CHEMISTRY METHOD 04/27/2024 11:01 AM [facility] Non HDL Chol. (LDL+VLDL) 69 <145 mg/dL LAB CHEMISTRY METHOD 04/27/2024 11:01 AM [facility] Chol/HDL Ratio 2.6 0.0 - 4.4 LAB CHEMISTRY METHOD 04/27/2024 11:01 AM [facility] Blood Venous blood specimen / Unknown Venipuncture / Unknown 04/27/2024 6:34 AM EST 04/27/2024 9:44 AM EST us Isai Reaves MD LAB BLOOD ORDERABLES Final Resul t [facility] [address] [place] [address], from Last 3 Months or Most Recently Relevant to Health Maintenance Insurance MEDICARE MEDICAID - [place] Care Teams Profiler Operator Relationship Specialty Start Date End Date Isai Reaves MD [address] [facility] [address] [place], [address] PCP - General Family Medicine 05/08/24
--- OUTSIDE RECORDS SUMMARY | 2024-08-28 14:21 | XMS_ITS | Encounter Summary ---
Author Organization [facility] Address [address] [place] [address] Care Team Providers Care Chief Telephone Operator Name Role Phone Isai Reaves MD Primary Care Provider [phone] Encounter Details Date Type Department Care Team (Late st Contact Info) Description 08/04/2024 Lab Requisition [facility] [address] [facility] [place] [address] Isai Reaves MD [address] [place] [address] [address] [place], [phone] Type 2 diabetes mellitus without complications [...] Sedimentation rate (08/05/2024 6:53 AM EST) Pathologist [facility] Sed Rate 95(H) 0 - 20 mm/hr LAB HEMETOLOGY METHOD 08/05/2024 11:46 AM EST [facility] Blood Venous blood specimen / Unknown Venipuncture / Unknown 08/05/2024 6:53 AM EST 08/05/2024 10:58 AM EST us Isai Reaves MD LAB BLOOD ORDERABLES Final Resul t Performing Organization Address [facility]/ZIP Co de Phone Number [facility] [address] [place] [address], [place] [phone] * (ABNORMAL) C-reactive protein (08/05/2024 6:53 AM EST) [facility] C-Reactive Protein 5.38(H) <=0.50 mg/dL LAB CHEMISTRY METHOD 08/05/2024 11:56 AM EST [facility] Blood Venous blood specimen / Unknown Venipuncture / Unknown 08/05/2024 6:53 AM EST 08/05/2024 10:58 AM EST us Isai Reaves MD LAB BLOOD ORDERABLES Final Resul t [facility] [address] [place] [address], [place] [phone] * (ABNORMAL) Basic metabolic panel (08/05/2024 6:53 AM EST) [facility] Sodium 138 133 - 145 mmol/L LAB CHEMISTRY METHOD 08/05/2024 11:54 AM EST [facility] Potassium 4.3 3.5 - 5.5 mmol/L LAB CHEMISTRY METHOD 08/05/2024 11:54 AM [facility] Chloride 109 96 - 110 mmol/L LAB CHEMISTRY METHOD 08/05/2024 11:54 AM [facility] CO2 26 21 - 32 mmol/L LAB CHEMISTRY METHOD 08/05/2024 11:54 AM [facility] Anion Gap 3 3 - 11 LAB CHEMISTRY METHOD 08/05/2024 11:54 AM [facility] Glucose 84 70 - 100 mg/dL LAB CHEMISTRY METHOD 08/05/2024 11:54 AM [facility] BUN 25 5 - 25 mg/dL LAB CHEMISTRY METHOD 08/05/2024 11:54 AM [facility] Creatinine 1.28 0.70 - 1.30 mg/dL LAB CHEMISTRY METHOD 08/05/2024 11:54 AM [facility] eGFR 67 >=60 mL/min/1. 73m2 LAB CHEMISTRY METHOD 08/05/2024 11:54 AM [facility] Comment:Calculation based on the??Chronic Kidney Disease Epidemiology Collaboration (CKD-EPI) equation refit??without adjustment for race. BUN/Creatinine Ratio 19.5 LAB CHEMISTRY METHOD 08/05/2024 11:54 AM [facility] Calcium 8.4(L) 8.5 - 10.5 mg/dL LAB CHEMISTRY METHOD 08/05/2024 11:54 AM [facility] Blood Venous blood specimen / Unknown Venipuncture / Unknown 08/05/2024 6:53 AM EST 08/05/2024 10:58 AM EST us Isai Reaves MD LAB BLOOD ORDERABLES Final Resul t [facility] [address] [place] [address], * (ABNORMAL) Complete blood count (08/05/2024 6:53 AM EST) [facility] WBC 7.8 4.8 - 10.8 K/mcL LAB HEMETOLOGY METHOD 08/05/2024 11:35 AM [facility] RBC 3.20(L) 4.50 - 5.50 M/mcL LAB HEMETOLOGY METHOD 08/05/2024 11:35 AM [facility] Hemoglobin 8.5(L) 13.5 - 17.5 g/dL LAB HEMETOLOGY METHOD 08/05/2024 11:35 AM [facility] Hematocrit 27.2(L) 42.0 - 54.0 % LAB HEMETOLOGY METHOD 08/05/2024 11:35 AM [facility] MCV 86.1 79.0 - 98.0 FL LAB HEMETOLOGY METHOD 08/05/2024 11:35 AM [facility] MCH 26.9(L) 27.0 - 32.0 pcg LAB HEMETOLOGY METHOD 08/05/2024 11:35 AM [facility] MCHC 31.3(L) 32.0 - 37.0 g/dL LAB HEMETOLOGY METHOD 08/05/2024 11:35 AM [facility] RDW 13.7 11.0 - 15.0 % LAB HEMETOLOGY METHOD 08/05/2024 11:35 AM [facility] Platelets 267 130 - 400 K/mcL LAB HEMETOLOGY METHOD 08/05/2024 11:35 AM [facility] MPV 10.5 7.0 - 11.0 FL LAB HEMETOLOGY METHOD 08/05/2024 11:35 AM [facility] NRBC 0.0 <1.0 % LAB HEMETOLOGY METHOD 08/05/2024 11:35 AM [facility] NRBC Absolute 0.00 <0.10 K/mcL LAB HEMETOLOGY METHOD 08/05/2024 11:35 AM EST [facility] Blood Venous blood specimen / Unknown Venipuncture / Unknown 08/05/2024 6:53 AM EST 08/05/2024 10:58 AM EST Isai Reaves MD LAB BLOOD ORDERABLES Final Resul t [facility] [address] [place] [address], documented in this encounter Visit Diagnoses Diagnosis Type 2 diabetes mellitus without complications (CMS/HCC) Osteomyelitis, unspecified (CMS/HCC) Hypothyroidism, unspecified Hyperlipidemia, unspecified documented in this encounter Care Teams Chief Telephone Operator Relationship Specialty Start Date End Date Isai Reaves MD [address] [place] [address], [id number] PCP - General Family Medicine 05/08/24 documented as of this encounter
--- OUTSIDE RECORDS SUMMARY | 2024-08-28 14:21 | XMS_ITS | Encounter Summary ---
Author Organization [employer] Address [address] [place] [address] Care Team Providers Care Monument Installer Name Role Phone Isai Reaves MD Primary Care Provider [phone] Encounter Details Date Type Department Care Team (Late st Contact Info) Description 07/28/2024 Lab Requisition [facility] - Main Lab [address] [facility] [place] [address] Isai Reaves MD [address] [place] [address] [address], [phone] Hyperlipidemia, unspecified; Hypothyroidism, unspecified; Osteomyelitis, unspecified [...] Sedimentation rate (07/29/2024 5:19 AM EST) Pathologist [facility] [place] Sed Rate 85(H) 0 - 20 mm/hr LAB HEMETOLOGY METHOD 07/29/2024 11:22 AM EST [facility] Blood Venous blood specimen / Unknown Venipuncture / Unknown 07/29/2024 5:19 AM EST 07/29/2024 10:27 AM EST Isai Reaves MD LAB BLOOD ORDERABLES Final Resul t Performing Organization Address [facility]/ZIP Co de Phone Number [facility] [address] [place] [address], [place] [phone] * (ABNORMAL) C-reactive protein (07/29/2024 5:19 AM EST) [facility] C-Reactive Protein 2.00(H) <=0.50 mg/dL LAB CHEMISTRY METHOD 07/29/2024 12:32 PM EST [facility] Blood Venous blood specimen / Unknown Venipuncture / Unknown 07/29/2024 5:19 AM EST 07/29/2024 10:27 AM EST Isai Reaves MD LAB BLOOD ORDERABLES Final Resul t [facility] [address] [place] [address], [place] [phone] * (ABNORMAL) Basic metabolic panel (07/29/2024 5:19 AM EST) Pathologist [facility] [place] Sodium 138 133 - 145 mmol/L LAB CHEMISTRY METHOD 07/29/2024 12:31 PM EST [facility] Potassium 4.7 3.5 - 5.5 mmol/L LAB CHEMISTRY METHOD 07/29/2024 12:31 PM [facility] Chloride 107 96 - 110 mmol/L LAB CHEMISTRY METHOD 07/29/2024 12:31 PM [facility] CO2 24 21 - 32 mmol/L LAB CHEMISTRY METHOD 07/29/2024 12:31 PM [facility] Anion Gap 7 3 - 11 LAB CHEMISTRY METHOD 07/29/2024 12:31 PM [facility] Glucose 150(H) 70 - 100 mg/dL LAB CHEMISTRY METHOD 07/29/2024 12:31 PM [facility] BUN 41(H) 5 - 25 mg/dL LAB CHEMISTRY METHOD 07/29/2024 12:31 PM [facility] Creatinine 1.53(H) 0.70 - 1.30 mg/dL LAB CHEMISTRY METHOD 07/29/2024 12:31 PM [facility] eGFR 54(L) >=60 mL/min/1. 73m2 LAB CHEMISTRY METHOD 07/29/2024 12:31 PM [facility] Comment:Calculation based on the??Chronic Kidney Disease Epidemiology Collaboration (CKD-EPI) equation refit??without adjustment for race. BUN/Creatinine Ratio 26.8 LAB CHEMISTRY METHOD 07/29/2024 12:31 PM [facility] Calcium 8.6 8.5 - 10.5 mg/dL LAB CHEMISTRY METHOD 07/29/2024 12:31 PM [facility] Blood Venous blood specimen / Unknown Venipuncture / Unknown 07/29/2024 5:19 AM EST 07/29/2024 10:27 AM EST us Isai Reaves MD LAB BLOOD ORDERABLES Final Resul t [facility] [address] [place] [address], * (ABNORMAL) Complete blood count (07/29/2024 5:19 AM EST) [facility] Signature WBC 6.9 4.8 - 10.8 K/mcL LAB HEMETOLOGY METHOD 07/29/2024 11:04 AM [facility] RBC 3.20(L) 4.50 - 5.50 M/mcL LAB HEMETOLOGY METHOD 07/29/2024 11:04 AM [facility] Hemoglobin 8.8(L) 13.5 - 17.5 g/dL LAB HEMETOLOGY METHOD 07/29/2024 11:04 AM [facility] Hematocrit 27.5(L) 42.0 - 54.0 % LAB HEMETOLOGY METHOD 07/29/2024 11:04 AM [facility] MCV 85.7 79.0 - 98.0 FL LAB HEMETOLOGY METHOD 07/29/2024 11:04 AM [facility] MCH 27.4 27.0 - 32.0 pcg LAB HEMETOLOGY METHOD 07/29/2024 11:04 AM [facility] MCHC 32.0 32.0 - 37.0 g/dL LAB HEMETOLOGY METHOD 07/29/2024 11:04 AM [facility] RDW 13.9 11.0 - 15.0 % LAB HEMETOLOGY METHOD 07/29/2024 11:04 AM [facility] Platelets 226 130 - 400 K/mcL LAB HEMETOLOGY METHOD 07/29/2024 11:04 AM [facility] MPV 11.1(H) 7.0 - 11.0 FL LAB HEMETOLOGY METHOD 07/29/2024 11:04 AM [facility] NRBC 0.0 <1.0 % LAB HEMETOLOGY METHOD 07/29/2024 11:04 AM [facility] NRBC Absolute 0.00 <0.10 K/mcL LAB HEMETOLOGY METHOD 07/29/2024 11:04 AM EST [facility] Blood Venous blood specimen / Unknown Venipuncture / Unknown 07/29/2024 5:19 AM EST 07/29/2024 10:27 AM EST us Isai Reaves MD LAB BLOOD ORDERABLES Final Resul t [facility] [address] [place] [address], documented in this encounter Visit Diagnoses Diagnosis Hyperlipidemia, unspecified Hypothyroidism, unspecified Osteomyelitis, unspecified (CMS/HCC) Type 2 diabetes mellitus without complications (CMS/HCC) documented in this encounter Care Teams Monument Installer Relationship Specialty Start Date End Date Isia Reaves MD [address] [place] [address], [phone] PCP - General Family Medicine 05/08/24 documented as of this encounter
== END 2024-08-28 12:46 | disposition home or self-care (01) ==
LOC: HO.RADIR 12:45
PROVIDERS: PCP Family Medicine; Visit Provider Family Medicine
DX: Z45.2 Encounter for adjustment and management of vascular access device (principal)
CPT/HCPCS: 36589; J2003

== ENCOUNTER → 2024-08-28 12:53 | Outpatient (BNV) | payer MEDICARE, MEDICAID, SELFPAY | PROVIDERS: PCP Family Medicine; Visit Provider Radiology Diagnostic Radiology | DX: Z48.03 Encounter for change or removal of drains (principal) | CPT/HCPCS: 36589 ==